=== PATIENT | female | born 1955 | race Caucasian/White ===

== ENCOUNTER 2022-08-15 08:05 | Inpatient (IN) ==
--- NOTE | 2022-07-24 11:54 | PAT Medication Instructions ---
Medication Instructions Date of Service July 24, 2022 Home Medications Medication Instructions Recorded Ciprofloxacin/Hydrocortisone 3 drp otic (ear) BID 5 days ##0 12/17/14 (Cipro Hc 0.2-1 %) Hydrocodon/Acetaminophen 10MG/300MG (VICODIN HP (10MG/300MG)) 1 tab PO Q6H PRN Ciprofloxacin/Hydrocortisone (Cipro Hc 0.2-1 %) 3 drp otic (ear) BID ascorbic acid (vitamin C) 1,000 mg tablet,extended release (Vitamin C ER) 1,000 mg PO QPM atenolol 25 mg tablet 12.5 mg PO UD PRN baclofen 10 mg tablet 10 mg PO BID PRN bumetanide 1 mg tablet 1 mg PO QPM calcium carbonate 600 mg-vitamin D3 10 mcg (400 unit) tablet (Calcium 600 + D(3)) 1 tab PO QPM multivitamin 1 tab PO QPM potassium chloride 10 mEq tablet,extended release(part/cryst) (Klor-Con M) 20 meq PO QPM zinc 50 mg tablet 50 mg PO QPM Continue as directed atenolol 25 mg tablet 12.5 mg PO UD PRN(if needed) DO NOT take the morning of surgery baclofen 10 mg tablet 10 mg PO BID PRN Take morning of surgery With a small sip of water, OTHERWISE NOTHING TO EAT OR DRINK AFTER MIDNIGHT: Hydrocodon/Acetaminophen 10MG/300MG (VICODIN HP (10MG/300MG)) 1 tab PO Q6H PRN (if needed) Ciprofloxacin/Hydrocortisone (Cipro Hc 0.2-1 %) 3 drp otic (ear) BID Take evening before surgery Hydrocodon/Acetaminophen 10MG/300MG (VICODIN HP (10MG/300MG)) 1 tab PO Q6H PRN (if needed) Ciprofloxacin/Hydrocortisone (Cipro Hc 0.2-1 %) 3 drp otic (ear) BID ascorbic acid (vitamin C) 1,000 mg tablet,extended release (Vitamin C ER) 1,000 mg PO QPM baclofen 10 mg tablet 10 mg PO BID PRN(if needed) bumetanide 1 mg tablet 1 mg PO QPM calcium carbonate 600 mg-vitamin D3 10 mcg (400 unit) tablet (Calcium 600 + D(3)) 1 tab PO QPM multivitamin 1 tab PO QPM potassium chloride 10 mEq tablet,extended release(part/cryst) (Klor-Con M) 20 meq PO QPM zinc 50 mg tablet 50 mg PO QPM Other Notes If you have any questions please call us at [phone] or [phone] or [phone] or [phone]
--- NOTE | 2022-07-29 14:16 | Anesthesiology Consultation ---
Date of Service July 29, 2022 Assessment & Plan (1) Encounter for pre-operative examination: - Hx difficult intubation: Per patient, she states she was remotely told there was difficultly "placing tube" many years ago (pt unsure of further details regarding when/where) but told no issue with subsequent surgeries when the anesthesiologist knew this history. Per available records, Ethmoidectomy, septoplasty, tongue somnoplasty- done 09/22/2003 at [facility] [place] with LMA (No noted difficulty per available operative report). - EP office visit (06/25/22): "Given that she has an upcoming knee replacement surgery planned, she was asked to see us for pre-op risk mitigation. Fortunately, she has no evidence of heart failure, ischemia, or sustained arrhythmia, and therefore no cardiac evaluation is indicated.. history of atrial fibrillation s/p PVI in the past. She has done very well since the procedure, and therefore does not require antiarrhythmics. She likely does not need bumex.. We would recommend weaning it to every other day for now and it can conceivably be stopped in the future.. It is noted that she ought to be on an anticoagulant given that she is now over 65, however this need not be started until after recovering from her surgery." - PCP office visit (07/10/22): Chronic issues reviewed/stable. - COVID screening: Per assessment on 07/29: No known COVID-19 positive contacts or current COVID-19 related symptoms. Travel screen negative. At surgeon discretion if preop Covid testing being done. - Outpatient joint assessment: Pt currently scheduled for inpatient pathway. If surgeon requests review for outpatient joint pathway, patient is not recommended candidate for outpatient joint program from anesthesia standpoint. Chart Review Chart Review: Acceptable Risk for Surgery and Patient seen in Pre Admission Testing Teaching & Discussion Pre-Anesthesia Teaching/Discussion Notes: Instructed NPO after midnight before surgery,except medications with 15 cc of water. Medication instructions provided according to the PAT guidelines. History Surgery Operation Date: 08/15/22 14:35 Proposed Procedures p Right Total Knee Arthroplasty - Clifton Puente MD Height/Weight Height: 5 ft 6.5 in Weight: 108.7 kg Allergies Allergy/AdvReac Type Severity Reaction Status Date / Time lisinopril Allergy Mild Throat Verified 07/29/22 14:12 tightness Iodinated Contrast Media Allergy Unknown Rash Verified 07/29/22 14:12 Beta-Blockers AdvReac Intermediate Increase Verified 07/29/22 14:12 (Beta-Adrenergic Bloc of symptoms/conditions citalopram AdvReac Mild Rash Verified 07/29/22 14:12 digoxin AdvReac Unknown "Did not Verified 07/29/22 14:12 work" Medications Home Medications Medication Instructions Recorded Confirmed Last Taken Hydrocodon/Acetaminophen 1 tab PO Q6H PRN Pain ##0 11/23/14 07/24/22 Unknown 10MG/300MG (VICODIN HP (10MG/300MG)) Ciprofloxacin/Hydrocortisone 3 drp otic (ear) BID 5 days ##0 12/17/14 07/24/22 Unknown (Cipro Hc 0.2-1 %) ascorbic acid (vitamin C) 1,000 mg 1,000 mg PO QPM 07/24/22 07/24/22 Unknown tablet,extended release (Vitamin C ER) atenolol 25 mg tablet 12.5 mg PO UD PRN Other 07/24/22 07/24/22 Unknown baclofen 10 mg tablet 10 mg PO BID PRN Muscle Spasm 07/24/22 07/24/22 Unknown bumetanide 1 mg tablet 1 mg PO QPM 07/24/22 07/24/22 Unknown calcium carbonate 600 mg-vitamin 1 tab PO QPM 07/24/22 07/24/22 Unknown D3 10 mcg (400 unit) tablet (Calcium 600 + D(3)) multivitamin 1 tab PO QPM 07/24/22 07/24/22 Unknown potassium chloride 10 mEq 20 meq PO QPM 07/24/22 07/24/22 Unknown tablet,extended release(part/cryst) (Klor-Con M) zinc 50 mg tablet 50 mg PO QPM 07/24/22 07/24/22 Unknown Past Medical History Medical History Atrial fibrillation [place] [facility] [place] Cancer Lymphoma (2016) s/p treatment in [place], PCP monitors Depression History of COVID-19 Dx 09/2021, symptoms resolved except residual taste/smell impairment Hyperlipidemia Hypertension Obesity Osteoarthritis Septic arthritis of knee, bilateral Sleep apnea BIPAP (compliant) Exercise / Class Metabolic Activity III < 4 Walking/Shop/Light housework Past Family History Family History Other No known health problems Past Surgical History Surgical History History of cardioversion ~2014 History of section History of colon resection 2016 FOR BLEEDING TUMOR History of colonoscopy History of ear surgery LEFT X 2-RIGHT X 1-MASTOIDECTOMY/TYMPANOPLASTY History of esophagogastroduodenoscopy (EGD) History of sinus surgery History of thyroidectomy History of tonsillectomy and adenoidectomy Past Anesthesia History Difficult Airway and No Family Hx of Anesthesia Complications Per patient, she states she was remotely told there was difficultly "placing tube" many years ago (pt unsure of further details regarding when/where) but told no issue with subsequent surgeries when the anesthesiologist knew this history. Per available records, Ethmoidectomy, septoplasty, tongue somnoplasty- done 09/22/2003 at [facility] [place] with LMA (No noted difficulty per available operative report). History of PONV No Hx of PONV and Hx of Motion Sickness Social History Smoking Status: Never smoker Do You Dip or Chew Tobacco: No Hx Alcohol Use: Yes alcohol intake frequency: holidays/special occasions only Hx Substance Use: No Review of Systems Patient denies chest pain, shortness of breath, fever, chills, cough, wheezing, palpitations. Physical Exam Vital Signs VITALS BP 120/72 P 77 TEMP 98.6 SP02 96%Ra RESP 16 PHYSICAL Full cervical extension range of motion. Full TMJ range of motion. TMD 2 finger breaths (small chin) Mallampati Score 3 Dentition: intact Lungs: clear throughout to auscultation Cardiac: regular rate and rhythm, no murmurs noted Spine: normal Carotid arteries: negative bruit Extremities: no edema Lab Results Anesthesia Preop Results Results Anesthesia Widget: WBC 5.40 K/ul (4.8-10.8) 07/29/22 Hgb 14.6 g/dl (12.0-16.0) 07/29/22 Hct 42.4 % (34.1-44.9) 07/29/22 Plt 253 K/uL (130-400) 07/29/22 PT 11.0 Seconds (9.0-12.0) 07/29/22 PTT 27.2 Seconds (21.0-31.0) 07/29/22 INR 1.0 (0.9-1.1) 07/29/22 Blood Type O Positive 07/29/22 Antibody Screen NEGATIVE 07/29/22 Testing Laboratory Results 07/10/22 HGBA1C 5.3% SODIUM 142 POTASSIUM 4.1 CHLORIDE 101 CO2 29 BUN 17 CREATININE 0.7 GLUCOSE 85 Electrocardiogram Date: 06/25/22 Findings: + NSR @ (75) Chest X-Ray Date: 07/29/22 FINDINGS: Cardiac silhouette is enlarged. Atherosclerosis of the aorta. No pneumothorax, pleural effusion, airspace consolidation or overt pulmonary edema. Bones of the chest appear grossly intact. Degenerative changes of the shoulders and spine. IMPRESSION: Cardiomegaly without acute process. Echocardiogram Date: 12/14/15 EF 60%. Mild cLVH. Grade I DD. Moderate LVD. Dilated RV. Moderate LAD. AV sclerosis. Mild AI. Borderline pulmonary HTN (PASP 33mhg). COVID-19 Risk Screen Screening Information COVID-19 Screen Date: 07/29/22 Exposure 21 Days Family/Household +COVID Last 21 Days: No Exposure 10 Days Any COVID Exposure Last 10 Days: No Symptoms Last 10 Days Experienced COVID Sx Last 10 Days: No + COVID 0-90 Days COVID + in Last 0-90 Days: No
[~2022-08-15 08:05] MED LIST: ACETAMINOPHEN 500 MG TAB PO SCH; BUPIVACAINE 0.5 % 5 MG/1 ML PF 10ML VIAL ONE; BUPIVACAINE LIPOSOME/PF 266 MG, BUPIVACAINE/EPINEPHRINE 50 ML, SODIUM CHLORIDE 0.9% 30 ... INFIL SCH; CeleBREX 200 MG CAP PO SCH; FAMOTIDINE 20 MG TAB PO SCH; LR 500ML BOLUS, THEN 15ML/HR IV SCH; LR 60ML/HR IV SCH; METOCLOPRAMIDE HCL 10 MG TABLET PO SCH; ROPIVACAINE 0.5% 5 MG/ML 30 ML VIAL ONE; Scopolamine 1 MG TDSY TD SCH; TRANEXAMIC ACID 1,000 MG **IV Intra-op IV SCH; ceFAZolin 2000MG 2,000 MG/15 ML SYR IV SCH
--- NOTE | 2022-08-15 08:54 | History & Physical Bridge Note ---
Date of Service August 15, 2022 History & Physical Bridge Note I have examined the patient, reviewed the History & Physical and in the interval since the performance of the History & Physical I have noted the following changes of clinical significance: no changes noted
[2022-08-15] MEDS ORDERED: ONDANSETRON INJ 2 MG/ML 2 ML VIAL ONE (09:38)
[2022-08-15] MEDS ORDERED: PROPOFOL IV EMULSION 10 MG/ML 20 ML VIAL IV ONE ×3 (09:38→12:02)
[2022-08-15] MEDS ORDERED: DEXAMETHASONE SOD INJ 4 MG/ML VIAL ONE ×2 (09:38→09:46)
[2022-08-15] MEDS ORDERED: fentaNYL citrate 100 MCG/2 ML VIAL ONE (09:39)
[2022-08-15] MEDS ORDERED: MIDAZOLAM HCL 1 MG/ML 2ML VIAL ONE ×2 (09:39→10:42)
[2022-08-15] MEDS ORDERED: fentaNYL citrate 100 MCG/2 ML VIAL IV PRN (09:43)
[2022-08-15] MEDS ORDERED: ePHEDrine sulfate 50 MG/ML AMP IV PRN (09:43)
[2022-08-15] MEDS ORDERED: ATROPINE SULFATE 0.1 MG/ML 10ML SYR IV PRN (09:43)
[2022-08-15] MEDS ORDERED: HYDROmorphone INJ 2 MG/ML SYR/VIAL IV PRN (09:43)
[2022-08-15] MEDS ORDERED: SODIUM CHLORIDE 0.9% PF 50 ML VIAL ONE (10:50)
[2022-08-15] MEDS ORDERED: BUPIVACAINE/EPINEPHRINE 0.25% 1:200,000 30 ML VIAL ONE (10:50)
[2022-08-15] MEDS ORDERED: BUPIVACAINE LIPOSOME 1.3% 266 MG/20 ML VIAL ONE (10:51)
--- NOTE | 2022-08-15 12:58 | Operative Report ---
PG Post Operative Report Pre & Post Diagnosis Operation Date: 08/15/22 10:40 Pre-Op Diagnosis: Right Knee Degenerative Joint Disease Post-Op Diagnosis: Right Knee Degenerative Joint Disease I identified the patient and participated in the time-out.: Yes Procedure Operation Date: 08/15/22 10:40 Actual Procedures p Right Total Knee Arthroplasty(Right) - Clifton Puente MD Surgeon Clifton Puente MD Consumer [employer]er Aneesh Yang PA-C Estimated Blood Loss 50 Findings Consistent with Post-Op Diagnosis Operative findings revealed extensive grade 4 jrge-lz-ndgm disease in all 3 compartments with significant erosions of the cartilage and osteophytes in all 3 compartments. Large soft tissue envelope. Osteophytes throughout. Diffuse osteopenia. Specimens Right knee sent for pathology. Drains None Anesthesia Type Spinal MAC Complications none Disposition Accompanied Patient To Recovery: No Indications Patient is 66-year-old female is had a long history of bilateral knee pain discomfort right side greater than left patient been to extensive conservative treatment the past which would become less successful. She is markedly debilitated by her disease. She is actually scheduled for knee replacement surgery several times elsewhere but got canceled. That she moved to this area and elected proceed with total knee arthroplasty. Description of Procedure Operative implants consist of: 1. Biomet Vanguard size 67.5 right posterior stabilized femoral component. 2. Biomet size 67 tibial tray. 3. 10 mm posterior stabilized polyethylene insert. 4. 28 x 8 all Paller patella. The patient was taken the operating, identified, placed on the operating table supine position protectors were properly padded. IV antibiotics tried by anesthesia team. A spinal anesthetic and abductor canal block had provided in the holding area. Prakash catheter was placed in sterile fashion. Right Tetrick was then placed in the right lower extremities and prepped and draped in usual sterile fashion. The right leg was elevated exsanguinated with use of an Esmarch and the tourniquet was set at 300 mmHg. An anterior approach of the right knee was then performed through a longitudinal incision centered over the patella. Sharp dissection was carried through subcutaneous tissue down the extensor mechanism. A medial parapatellar arthrotomy incision was made. Some subperiosteal dissection was carried out medially. The fat pad was resected from Neath patella tendon. Lateral patellofemoral ligament was released. Patella subluxated laterally knee was flexed. The osteophytes taken off distal femur. The ACL and PCL were then released from distal femur the tibia subluxated anteriorly. The external tibial alignment jig was then placed in the interface the tibia and adjusted 14 mm medially. Proximal tibial cut was made removed by millimeter bone from most deficient aspect medial tibial plateau. Some osteophytes taken off medially medially and posterior medially. Tibia sized to a size 67. Attention drawn the femur. The distal femur during the sharp drill. Intramedullary canal was suction. A right 5 degree valgus cutting guide was placed. Distal femoral cutting block was pinned in place. Distal femoral cut was made to take an additional 3 mm bone off distal femur. The femur was then sized to a size 67.5. The AP cutting block was pinned parallel to the epicondylar axis which was 4 degrees of external rotation. Anterior cut, anterior chamfer, posterior cut, posterior chamfer cuts were made. The box cutting guide was placed in the just slight lateral box cut was made. The knee was flexed. The remnants of the medial and lateral menisci were excised. The osteophytes were taken off the posterior aspect of femur. Trial femoral component was placed. Tibial tray was pinned in maximum external rotation and the drill and stem punch were used to create the defect in the proximal tibia for the tibial tray. Knee was then trialed and 10 mm insert fit most appropriately. Attention drawn the patella. The patella was cleaned of all soft tissues. Patella thickness measured 20 mm in thickness was cut down to 13. Was sized to a size 28 patella. The lug holes were drilled for the 28 patella. The lateral osteophytes removed. Patella button was placed. Knee was taken through range of motion patella tracked nicely with no thumbs test. Attention drawn to place the permanent components. All trial components were removed. A bone plug was placed into the distal femur limit blood loss. Double batch Palacos G cement was mixed. Biomet Vanguard size 67.5 right posterior stabilized femoral component, a size 67 tibial tray, 10 mm posterior stabilized polyethylene insert, 28 x 8 all Paller patella then cemented in place. Knee was brought out into full extension until cement hardened. Final cement check was then performed. The pericapsular tissues were injected with total 100 cc of combination of 20 cc of Exparel, 30 cc normal saline, 50 cc of quarter percent Marcaine with epinephrine. Patient did receive 1 g tranexamic acid. The tourniquet was let down for final turn time of 64 minutes. Hemostasis assured use electrocautery. The extensor mechanism closed with combination 1 PDS suture #1 Vicryl suture in a [id number] fashion. Extensor mechanism checked found to be intact and subcutaneous tissues then closed with 2 Dexon suture in a buried erupted fashion skin was closed skin dominique. Leg was then cleaned and dried a sterile dressing was Xeroform, 4 x 4' s, sterile cast padding, Ernie bandage were applied. Patient then transferred to the recovery room in stable condition. Patient tolerated procedure well and there were no complications. Aneesh Yang, my physician fleet administrative assistant, was present for the entire procedure. His assistance was essential and required for appropriate patient positioning, prepping and draping, surgical exposure, performing the technical details of the operation, placement the implants, closure of the wound, and placement of the sterile bandage. I attest to the content of the Intraoperative Record and any orders documented therein. Any exceptions are noted below.
--- NOTE | 2022-08-15 13:36 | XRay Report ---
XR knee RT 1 or 2V routine HISTORY: 66 years-old Female Surgical Post Op right knee total joint arthroplasty COMPARISON: Knee radiographs 07/18/2022 TECHNIQUE: 2 views of the right knee FINDINGS: Total joint arthroplasty with patellar resurfacing. Anterior midline skin dominique are noted along wit h expected postoperative soft tissue swelling with deep tissue air. No acute fracture, dislocation or unexpected opaque foreign body. Cortical thickening of the proximal fibula redemonstrated. IMPRESSION: Total joint arthroplasty with expected postoperative changes. ACT 112: Negative or not required by law. The above report was generated using voice recognition software. It may contain grammatical, syntax o r spelling errors. Electronically signed by: Yao Garcia M.D. 08/15/2022 1:35 PM
--- NOTE | 2022-08-15 14:25 | Anesthesiology Progress Note ---
Date of Service August 15, 2022 Anesthesia Post Procedure Vital Signs Vital Signs: Temp Pulse Pulse Pulse Resp BP BP 08/18/22 13:09 36.7 C 62 87 69 16 118/73 150/82 H 08/18/22 07:50 36.7 C 87 16 150/82 H 08/17/22 20:57 37.2 C 84 16 136/86 08/17/22 14:42 36.5 C 72 18 118/73 Pulse Ox O2 Del Method 08/18/22 13:09 92 08/18/22 07:50 92 Room Air 08/17/22 20:57 92 Room Air 08/17/22 14:42 92 Room Air Transfer of Care Handoff Completed per policy Notes Mental Status: alert / awake / arousable and participated in evaluation Nausea / Vomiting: adequately controlled Pain: adequately controlled Airway Patency, RR, SpO2: stable & adequate BP & HR: stable & adequate Hydration State: stable & adequate Neuraxial Anesthesia: was administered and sensory block is resolving Anesthetic Complications: no major complications apparent and Pt Satisfied with anesthetic care
[2022-08-15] MEDS ORDERED: MAGNESIUM HYDROXIDE SUSP 30 ML UDC PO PRN (15:14)
[2022-08-15] MEDS ORDERED: bisacodyL 10 MG SUPP PR PRN (15:14)
[2022-08-15] MEDS ORDERED: BACLOFEN 10 MG TAB PO PRN (15:14)
[2022-08-15] MEDS ORDERED: ALUMINUM/MAGNESIUM SUSP 30 ML UDC PO PRN (15:14)
[2022-08-15] MEDS ORDERED: ATENOLOL 25 MG TABLET PO PRN (15:14)
[2022-08-15] MEDS ORDERED: HYDROmorphone INJ 1 MG/ML SYRINGE IV PRN (15:14)
[2022-08-15] MEDS ORDERED: NALOXONE HCL 0.4 MG/1 ML VIAL/CARP IV PRN (15:14)
[2022-08-15] MEDS ORDERED: ONDANSETRON INJ 2 MG/ML 2 ML VIAL IV PRN (15:14)
[2022-08-15] MEDS ORDERED: METOCLOPRAMIDE HCL INJ 5 MG/ML 2 ML VIAL IV PRN (15:14)
[2022-08-15] MEDS: Scopolamine CHECK PATCH PLACEMENT SCH (16:05)
[2022-08-15] MEDS: SODIUM CHLORIDE 0.9% 1000ML 1,000 ML IV SCH (16:05)
[2022-08-15] MEDS: ACETAMINOPHEN 500 MG TAB PO SCH (16:53)
[2022-08-15] MEDS: KETOROLAC TROMETHAMINE 15 MG/ML VIAL IV SCH (16:54)
[2022-08-15] MEDS ORDERED: ASCORBIC ACID 500 MG TAB PO SCH (17:00)
[2022-08-15] MEDS: ceFAZolin 2000MG 2,000 MG/15 ML SYR IV SCH (18:14)
[2022-08-15] MEDS: oxyCODONE HCL IR 5 MG TAB (IMMEDIATE RELEASE) PO PRN (18:21)
[2022-08-15] MEDS ORDERED: TRANEXAMIC ACID / 0.7% NACL 1,000 MG/100 ML BAG IV SCH (19:00)
[2022-08-15] MEDS: ASPIRIN 81 MG ECTAB PO SCH (20:05)
[2022-08-15] MEDS: TAPENTADOL HCL ER 50 MG TABCR PO SCH (20:05)
[2022-08-15] MEDS: CALCIUM 600MG + VIT D 400 IU TAB PO SCH (20:06)
[2022-08-15] MEDS: BUMETANIDE 1 MG TAB PO SCH (20:06)
[2022-08-15] MEDS: POTASSIUM CHLORIDE CRTAB 20 MEQ TABCR PO SCH (20:06)
[2022-08-15] MEDS: ZINC SULFATE 220 MG CAPSULE PO SCH (20:07)
[2022-08-15] MEDS: DOCUSATE SODIUM/SENNA 50/8.6MG TAB PO SCH (20:07)
[2022-08-15] MEDS: ASCORBIC ACID 500 MG TAB PO SCH (20:07)
[2022-08-15] MEDS: DOCUSATE SODIUM 100 MG CAP PO SCH (20:07)
[2022-08-15] MEDS: SENNA 8.6 MG TAB PO SCH (20:08)
[2022-08-15] MEDS ORDERED: NON-FORMULARY MEDICATION (Multivitamin Tablet) PO SCH (21:00)
[2022-08-16] MEDS: KETOROLAC TROMETHAMINE 15 MG/ML VIAL IV SCH ×4 (00:09→16:40)
[2022-08-16] MEDS: oxyCODONE HCL IR 5 MG TAB (IMMEDIATE RELEASE) PO PRN ×3 (00:09→19:48)
[2022-08-16] MEDS: ACETAMINOPHEN 500 MG TAB PO SCH ×3 (00:10→16:40)
[2022-08-16] MEDS: Scopolamine CHECK PATCH PLACEMENT SCH ×3 (00:10→16:40)
[2022-08-16] MEDS: ceFAZolin 2000MG 2,000 MG/15 ML SYR IV SCH (04:38)
[2022-08-16] MEDS: SODIUM CHLORIDE 0.9% 1000ML 1,000 ML IV SCH (06:18)
[2022-08-16 07:07] LABS: Hematocrit (blood only) 35.6 % (34.1-44.9); Hemoglobin 12.2 g/dl (12.0-16.0); Mean Corpuscular Hgb Conc 34.3 g/dL (32.0-36.0); Mean Corpuscular Volume 90.4 fL (80.0-100.0); Mean Platelet Volume 9.5 fL (9.4-12.3); Platelet Count 201 K/uL (130-400); RDW Coefficient of Variation 13.3 % (11.5-14.5); Red Blood Count 3.94 M/uL (3.93-5.22); White Blood Count 8.82 K/ul (4.8-10.8)
[2022-08-16 07:46] LABS: BUN Creatinine Ratio 21.6 (10-20); Calcium 8.9 mg/dl (8.5-10.1); Creatinine Clr Calc Pharmacy 92.6 ml/min; Est GFR (African American) 97.2 ml/min; Est GFR (Non-African American) 83.8 ml/min; Potassium 3.7 mmol/L (3.5-5.1)
[2022-08-16] MEDS ORDERED: dexAMETHasone 10 MG in SYRINGE 0 ML IV SCH (08:00)
[2022-08-16] MEDS: DOCUSATE SODIUM 100 MG CAP PO SCH ×2 (08:04→19:49)
[2022-08-16] MEDS: DOCUSATE SODIUM/SENNA 50/8.6MG TAB PO SCH ×2 (08:04→19:50)
[2022-08-16] MEDS: ASPIRIN 81 MG ECTAB PO SCH ×2 (08:04→19:49)
[2022-08-16] MEDS: MULTIVITAMIN TAB PO SCH (08:05)
[2022-08-16] MEDS: TAPENTADOL HCL ER 50 MG TABCR PO SCH ×2 (08:08→19:52)
--- NOTE | 2022-08-16 10:29 | Progress Notes ---
DATE OF SERVICE: 08/16/2022 SUBJECTIVE: A 66-year-old female, postoperative day 1 from a right knee replacement. She is doing p retty good this morning. Had a rough night last night as well as pain, but doing better this morning . No chest pain or shortness of breath. Not feeling dizzy or lightheaded. OBJECTIVE: VITAL SIGNS: Temperature 36.6. Vital signs stable. GENERAL: Shows a pleasant middle-aged female, sitting up in bed, looks reasonably comfortable this m orning. LUNGS: Clear to auscultation. HEART: Regular rate and rhythm. ABDOMEN: Soft, nontender, nondistended. EXTREMITIES: Grossly neurovascularly intact except as follows. Examination of the right leg reveals the dressing to be clean, dry, and intact. Leg is well aligned. She can dorsiflex and plantarflex her foot appropriately. She is neurologically intact. LABORATORY DATA: Hemoglobin 12.2. Hematocrit 35.6. Electrolytes are stable. ASSESSMENT: A 66-year-old female, postoperative day 1 from right knee replacement, doing reasonably well. Pretty rough night, but doing better this morning. She is neurologically intact. PLAN: 1. DVT prophylaxis including thigh-high TEDs, SCDs, and aspirin twice a day. 2. PT, OT, weightbear as tolerated. Right total knee protocol. 3. Pain control, doing okay with current pain regimen. 4. Disposition: She is hoping to be discharged to home with some home health. We will see how ther meera goes today. She does live by with one of her offsprings, but not sure how much help she has with that. She will likely need minimum home health. Job ID: [id number]
[2022-08-16] MEDS: ZINC SULFATE 220 MG CAPSULE PO SCH (19:48)
[2022-08-16] MEDS: CALCIUM 600MG + VIT D 400 IU TAB PO SCH (19:48)
[2022-08-16] MEDS: BUMETANIDE 1 MG TAB PO SCH (19:49)
[2022-08-16] MEDS: POTASSIUM CHLORIDE CRTAB 20 MEQ TABCR PO SCH (19:50)
[2022-08-16] MEDS: SENNA 8.6 MG TAB PO SCH (19:51)
[2022-08-16] MEDS: ASCORBIC ACID 500 MG TAB PO SCH (19:57)
[2022-08-17] MEDS: KETOROLAC TROMETHAMINE 15 MG/ML VIAL IV SCH ×4 (02:43→11:02)
[2022-08-17] MEDS: ACETAMINOPHEN 500 MG TAB PO SCH ×3 (02:43→16:34)
[2022-08-17] MEDS: Scopolamine CHECK PATCH PLACEMENT SCH ×3 (02:44→16:35)
[2022-08-17] MEDS: oxyCODONE HCL IR 5 MG TAB (IMMEDIATE RELEASE) PO PRN ×3 (04:36→19:58)
[2022-08-17] MEDS: DOCUSATE SODIUM/SENNA 50/8.6MG TAB PO SCH ×2 (08:21→19:59)
[2022-08-17] MEDS: ASPIRIN 81 MG ECTAB PO SCH ×2 (08:21→20:00)
[2022-08-17] MEDS: TAPENTADOL HCL ER 50 MG TABCR PO SCH ×2 (08:21→19:58)
[2022-08-17] MEDS: DOCUSATE SODIUM 100 MG CAP PO SCH ×2 (08:21→19:58)
[2022-08-17] MEDS: MULTIVITAMIN TAB PO SCH (08:21)
--- NOTE | 2022-08-17 09:10 | Progress Notes ---
SUBJECTIVE: A 66-year-old female, postop day 2 from a right knee replacement. Having a bit more joseluis n this morning. No chest pain or shortness of breath, just knee pain. OBJECTIVE: VITAL SIGNS: Temperature is 36.7. Vital signs are stable. GENERAL: Shows a pleasant middle-aged female. She is sitting up in bed and does not look uncomforta ble. LUNGS: Clear to auscultation. HEART: Regular rate and rhythm. ABDOMEN: Soft, nontender, nondistended. EXTREMITIES: Grossly neurovascularly intact except as follows: Examination of the right leg reveals the leg to be well aligned. Dressing is clean, dry and intact. There is no drainage. Calf is soft and supple. She is neurologically intact. ASSESSMENT: A 66-year-old female, postop day 2 from right knee replacement, doing okay. Having a bi t more pain this morning. Nothing out of the ordinary. PLAN: 1. DVT prophylaxis includes thigh-high TEDs, SCDs, and aspirin twice a day. 2. PT, OT, weightbear as tolerated. Right total knee protocol. 3. Pain control, doing okay with current pain regimen. We will see how she does through therapy hunter schreiber. 4. Disposition: She is planning to be discharged to home with some home health. We will see how bladimir guido goes today. She may need a rehab stay if she is struggling with therapy. We will see how that goes today. Job ID: [id number]
[2022-08-17] MEDS: POTASSIUM CHLORIDE CRTAB 20 MEQ TABCR PO SCH (19:58)
[2022-08-17] MEDS: BUMETANIDE 1 MG TAB PO SCH (19:59)
[2022-08-17] MEDS: ASCORBIC ACID 500 MG TAB PO SCH (19:59)
[2022-08-17] MEDS: ZINC SULFATE 220 MG CAPSULE PO SCH (19:59)
[2022-08-17] MEDS: CALCIUM 600MG + VIT D 400 IU TAB PO SCH (20:00)
[2022-08-17] MEDS: SENNA 8.6 MG TAB PO SCH (20:00)
[2022-08-18] MEDS: ACETAMINOPHEN 500 MG TAB PO SCH ×3 (02:22→15:58)
[2022-08-18] MEDS: Scopolamine CHECK PATCH PLACEMENT SCH (02:22)
[2022-08-18] MEDS: oxyCODONE HCL IR 5 MG TAB (IMMEDIATE RELEASE) PO PRN ×3 (02:44→15:58)
[2022-08-18] MEDS: TAPENTADOL HCL ER 50 MG TABCR PO SCH (08:11)
[2022-08-18] MEDS: DOCUSATE SODIUM/SENNA 50/8.6MG TAB PO SCH (08:11)
[2022-08-18] MEDS: ASPIRIN 81 MG ECTAB PO SCH (08:11)
[2022-08-18] MEDS: DOCUSATE SODIUM 100 MG CAP PO SCH (08:11)
[2022-08-18] MEDS: MULTIVITAMIN TAB PO SCH (08:11)
--- NOTE | 2022-08-18 13:32 | Progress Notes ---
DATE OF SERVICE: 08/18/2022 SUBJECTIVE: A 66-year-old female, postoperative day #3 from a right knee replacement. She has been struggling to therapy. Still having quite a bit of knee pain. No chest pain, no shortness of breath . She is refusing to go to rehab or a [facility] facility. She says she has got lots of help a t home. OBJECTIVE: VITAL SIGNS: Temperature is 36.7. Vital signs are stable. GENERAL: Shows a pleasant middle-aged female. I did see her walking in the hallways and she is walk ing using a walker quite hesitantly but doing reasonably well. EXTREMITIES: Examination of the right leg reveals the dressing to be clean, dry and intact. Leg is well aligned. She can dorsiflex and plantarflex her foot appropriately. She is neurologically intac t. LABORATORY DATA: None. ASSESSMENT: A 66-year-old female, postoperative day #3 from right knee replacement, doing okay. Hav ing a moderate amount of pain, which is not unusual. She has been a little slow with rehab. She is refusing to go to rehab or [facility] facility, wants to go home. PLAN: 1. DVT prophylaxis includes thigh-high TEDs, SCDs, and aspirin twice a day. 2. PT, OT, weightbear as tolerated. Right total knee protocol. 3. Pain control, doing okay with current pain regimen. 4. Disposition: Plan to discharge to home. She is refusing rehab. She says she has got lots of he lp at home. We will set her up with some home health. Job ID: [id number]
--- NOTE | 2022-08-20 06:51 | Discharge Summary ---
Date of Service August 20, 2022 Discharge Data Procedures Performed Operation Date: 08/15/22 10:40 Actual Procedures p Right Total Knee Arthroplasty(Right) - Clifton Puente MD Hospital Course (1) Status post total right knee replacement: This is a 66 year old patient admitted on 08/15/22 and underwent total knee arthroplasty. He tolerated the procedure well and there were no complications. Transferred to the PACU post op and later to the orthopedic floor for further care. He was given ancef for antibiotic prophylaxis. He was also given PAMELLA stockings, SCDs, and aspirin for DVT prophylaxis. Hemoglobin, hematocrit, and vital signs were monitored during her hospital stay and remained stable. Did not require any blood transfusions. There were no complications during her hospital stay. By post op day #3 the patient was tolerating a regular diet, pain was reasonably controlled with oral pain medicine, and she was participating in physical therapy. On post op day #3 the patient was discharged home and set up with home health care. She was given printed discharge instructions including prescriptions for extra strength tylenol, aspirin, ketorolac, zofran, senokot, and oxycodone. Continue physical therapy, weight bearing as tolerated. Continue PAMELLA stockings. Follow up approximately 2 weeks post op or sooner if there are problems or concerns. Coding Level of Care Code None Diagnoses Status post total right knee replacement Z96.651
--- NOTE | 2022-08-26 16:58 | Coding Query ---
CODING QUERY To promote full compliance with coding requirements relating to patient care, provider participation is requested in all cases of cafe operator uncertainty. Please assist us with the question(s) below: Coding Question(s): The H&P documents septic arthritis of knee, bilateral and documents advanced bilateral knee DJD right side quite a bit worse than left, and shows Medical History of septic arthritis of knee, bilateral, and the Operative Report documents right knee degenerative joint disease. Your help is needed to clarify the current diagnosis during this admission for accurate coding. Please specify below, to clarify the diagnosis: ( x ) Advanced Bilateral Knee DJD right side quite a bit worse than left ( ) Septic Arthritis of Knee, Bilateral ( ) Right Knee Degenerative Joint Disease ( ) Other: Please Specify Physician's Response(s): Thank you Tamra Henrandez Principal Diagnosis: "that condition established after study, to be chiefly responsible for occasioning the admission of the patient to the hospital for care." Co-Existing Principal Diagnosis: "when two or more diagnoses equally meet the criteria for principal diagnosis as determined by the circumstances of admission, diagnostic work up, and/or therapy provided, and the Alphabetic Index, Tabular List, or another coding guideline does not provide sequencing direction, any one of the diagnoses may be sequenced first." "When the physician has documented what appears to be a current diagnosis in the body of the record, but has not included the diagnosis in the final diagnostic statement, the physician should be asked whether the diagnosis should be added." (Source [facility] 2 QTR90. p3-4) NAVIN
== END 2022-08-18 16:41 | disposition home health service (06) | DRG 470 ==
LOC: ASU 08:05 → 3E 08:05
DX: G47.33 Obstructive sleep apnea (adult) (pediatric); Z79.82 Long term (current) use of aspirin; Z86.79 Personal history of other diseases of the circulatory system; E66.9 Obesity, unspecified; M17.0 Bilateral primary osteoarthritis of knee; Z79.899 Other long term (current) drug therapy; I10 Essential (primary) hypertension; Z98.890 Other specified postprocedural states; Z88.8 Allergy status to other drugs, medicaments and biological substances; Z68.37 Body mass index [BMI] 37.0-37.9, adult; Z91.041 Radiographic dye allergy status; Z86.16 Personal history of COVID-19

== ENCOUNTER 2023-11-12 13:40 | Inpatient (IN) ==
[2023-11-12] MEDS ORDERED: SODIUM CHLORIDE 0.9% 500 ML IV ONE ×2 (14:22→16:13)
[2023-11-12] MEDS ORDERED: ACETAMINOPHEN 1,000 MG/100 ML VIAL IV STA (14:22)
[2023-11-12 14:30] LABS: Basophils # (auto) 0.05 K/uL (0.00-0.20); Basophils % (auto) 0.5 %; Eosinophils # (auto) 0.07 K/uL (0.00-0.50); Eosinophils % (auto) 0.7 %; Hematocrit (blood only) 39.4 % (37.0-47.0); Hemoglobin 13.3 g/dl (12.0-16.0); Immature Granulocytes # (auto) 0.06 K/uL (0.01-0.20); Immature Granulocytes % (auto) 0.6 %; Lymphocytes # (auto) 1.74 K/uL (1.20-3.40); Lymphocytes % (auto) 16.3 %; Mean Corpuscular Hemoglobin 30.1 pg (25.0-34.0); Mean Corpuscular Hgb Conc 33.8 g/dL (32.0-36.0); Mean Corpuscular Volume 89.1 fL (80.0-100.0); Mean Platelet Volume 10.3 fL (9.4-12.4); Monocytes # (auto) 1.31 K/uL (0.11-0.59); Monocytes % (auto) 12.3 %; Neutrophils # (auto) 7.45 K/uL (1.40-6.50); Neutrophils % (auto) 69.6 %; Platelet Count 234 K/uL (130-400); RDW Coefficient of Variation 14.6 % (11.5-14.5); RDW Standard Deviation 47.2 fL (36.4-46.3); Red Blood Count 4.42 M/uL (4.20-5.40); White Blood Count 10.68 K/ul (4.8-10.8)
--- NOTE | 2023-11-12 14:49 | XRay Report ---
XR chest 1V portable HISTORY: Congestion. Shortness of breath. Chest pain, nonspecific COMPARISON: Chest 03/26/2023. FINDINGS: No pneumothorax. No pleural effusions. The cardiac silhouette remains enlarged. There is mi ld central pulmonary vascular congestion without overt edema. This is similar to the prior study. No new focal lung consolidations to suggest a pneumonia. Calcifications again noted within the aortic kn ob. No acute fractures. IMPRESSION: Cardiomegaly and mild central pulmonary vascular congestion without overt edema. ACT 112: Negative or not required by law. Electronically signed by: Ken Alcantara M.D. 11/12/2023 2:47 PM
[2023-11-12 14:50] LABS: Bilirubin,Total 0.8 mg/dl (0.2-1.0); Calcium 9.6 mg/dl (8.6-10.3); Magnesium 1.8 mg/dl (1.7-2.4); Potassium 4.1 mmol/L (3.5-5.1)
[2023-11-12 14:56] LABS: Albumin Globulin Ratio 1.2 (0.9-2); BUN Creatinine Ratio 22.6 (10-20); Creatinine Clr Calc Pharmacy 80.6 ml/min; Est GFR (African American) 82.8 ml/min; Est GFR (Non-African American) 71.4 ml/min; Globulin 3.4 gm/dl (2.5-4.0); Phosphorus 3.1 mg/dl (2.5-4.9); Total Protein 7.4 gm/dl (6.0-8.3)
[2023-11-12 15:01] LABS: Troponin I High Sensitivity 10.6 pg/ml (0-14)
[2023-11-12 15:11] LABS: Thyroid Stimulating Hormone 2.433 uIu/ml (0.300-4.500)
--- NOTE | 2023-11-12 15:13 | Emergency Department Note ---
Impression & Plan Atrial fibrillation with rapid ventricular response, Diarrhea, Sinus congestion, Shortness of breath ED Provider Note NAME: FELIX LAI AGE: 67 SEX: F ARRIVES VIA: Walk-In INFORMANT: Patient ED PROVIDER(S): Ace Coburn MD CHIEF COMPLAINT: Shortness of breath, atrial fibrillation, sinus congestion, referred. PLAN: Disposition: Admit MEDICAL DECISION MAKING: The patient is a pleasant 67-year-old woman with a past medical history of atrial fibrillation on Eliquis, CHF, hypertension, hyperlipidemia, WILL on CPA, chronic mastoiditis who presents to the emergency department via walk-in for evaluation of shortness of breath, fast heart rate in setting of A-fib referred by her cardiology office. Patient the patient reports symptoms began several days ago though did have some more minimal congestion even when she was discharged from [facility] a week ago where she had been admitted for pneumonia and managed for her atrial fibrillation. She denies any chest pain. She denies nausea, vomiting. She reports she has had ongoing loose stool which was present when she was in the hospital at [facility] and to understanding was due to a "gastrointestinal infection". The patient reports she has completed treatment for pneumonia. She reports that she has not had much to eat or drink today and is still having approximately 2 loose stools a day. She reports she is scheduled to have an ablation for atrial fibrillation at [facility] on the of this month. On evaluation the patient is fatigued appearing but no distress, afebrile with heart rate in the 130s to 140s in atrial fibrillation and vital signs otherwise stable. O2 saturation 92% and greater on room air with normal respiratory effort. The patient appears clinically dry with dry mucous membranes and no significant lower extremity edema. Boggy nasal turbinates. TMs with bilateral middle ear effusion without significant injection. There is no mastoid edema, tenderness or discoloration bilaterally. Abdomen is nontender. EKG demonstrates atrial fibrillation with RVR without overt acute ischemia. Chest x-ray with mild venous congestion with no focal consolidation per my preliminary independent interpretation. WBC within normal limits with neutrophil predominance though no left shift. H/H and platelets within normal limits. Chemistry without metabolic acidosis. BUN/creatinine is 22 consistent the patient's clinically dry appearance. Electrolytes and LFTs unremarkable. High-sensitivity troponin within normal limits. Lipase is not elevated. Procalcitonin is undetectable. TSH within normal limits. UA without convincing evidence of infection. Respiratory viral panel/[employer] was negative. Treatment was initiated with gentle hydration with 500 cc normal saline and IV Lopressor with some improvement in patient's heart rate to the 120s. She was subsequently given a second 500 cc normal saline bolus and second 5 mg dose of IV Lopressor with improvement to the 110s. However, given the patient's persistence of her atrial fibrillation with RVR in the setting of suspected viral upper respiratory infection and ongoing diarrhea/GI losses patient was for the hospitalist service for further management. Case was discussed with [facility]ancini [facility], who will evaluate the patient for admission. Further management per admitting team. Triage Nursing notes reviewed and agree them. Prior/external medical records reviewed Vital Signs: reviewed Differential diagnosis: Reactive airway disease, pneumonia, pneumothorax, COPD, CHF, infections, cardiac ischemia, pulmonary embolism, musculoskeletal, gastrointestinal, as well as other pathologies. ER treatment provided: See below. Diagnostics interpreted by me: ECG: Atrial fibrillation with RVR, 146 bpm, no ectopy, no overt ST ovation depression, QTc 402, qrs 88. Cardiac Monitoring: An order for continuous cardiac monitoring was placed and demonstrated Atrial fibrillation with RVR, 146 bpm, no ectopy Laboratory studies: See below Imaging studies: See below Consultation(s): [facility] HPI: The patient is a pleasant 67-year-old woman with a past medical history of atrial fibrillation on Eliquis, CHF, hypertension, hyperlipidemia, WILL on CPA, chronic mastoiditis who presents to the emergency department via walk-in for evaluation of shortness of breath, fast heart rate in setting of A-fib referred by her cardiology office. Patient the patient reports symptoms began several days ago though did have some more minimal congestion even when she was discharged from [facility] a week ago where she had been admitted for pneumonia and managed for her atrial fibrillation. She denies any chest pain. She denies nausea, vomiting. She reports she has had ongoing loose stool which was present when she was in the hospital at [facility] and to understanding was due to a "gastrointestinal infection". The patient reports she has completed treatment for pneumonia. She reports that she has not had much to eat or drink today and is still having approximately 2 loose stools a day. She reports she is scheduled to have an ablation for atrial fibrillation at [facility] on the of this month. ROS: See above HPI for pertinent positives & negatives. A total of 10 systems reviewed and were otherwise negative. VITALS:See Below PHYSICAL EXAMINATION: GENERAL: Awake, alert, fatigued-appearing, in no distress HENT: Normocephalic, atraumatic. Boggy nasal turbinates. TMs with bilateral middle ear effusion without significant injection. There is no mastoid edema, tenderness or discoloration bilaterally. Oropharynx with dry mucous membranes and otherwise unremarkable. EYES: Normal conjunctiva. Sclera non-icteric. NECK: Supple. No nuchal rigidity. FROM. No JVD. RESPIRATORY: Clear to auscultation. CARDIAC: Tachycardic rate, irregular rhythm. Extremities warm and well perfused. Pulses equal. ABDOMEN: Soft, non-distended. No tenderness to palpation. No rebound or guarding. No masses. RECTAL: Deferred. MUSCULOSKELETAL: Chest examination reveals no tenderness. The back is symmetrical on inspection without obvious abnormality. There is no CVA tenderness to palpation. No joint edema. LOWER EXTREMITIES: Calves are equal size bilaterally and non-tender. No edema. No discoloration. NEURO: Normal sensorium. No sensory or motor deficits noted. SKIN: No rash or jaundice noted. ED COURSE: Critical Care: I have personally spent greater than 35 minutes of critical care time in the direct management of this patient. This includes bedside care, interpretation of diagnostic studies, and testing, discussion with consultants, patient, and family members, and other required patient management activities. This 35 minutes is in excess of all separately billable procedures. Ace Coburn MD Past Med/Surg History Medical History Fibromyalgia HFrEF (heart failure with reduced ejection fraction) WILL on CPAP Left knee DJD Obesity Encounter for pre-operative examination History of COVID-19 Dx 09/2021, symptoms resolved except residual taste/smell impairment Hypertension Osteoarthritis Depression Hyperlipidemia Cancer Lymphoma (2016) s/p treatment in [place], PCP monitors Sleep apnea BIPAP (compliant) Atrial fibrillation Follows with [facility]/Dr. [place]ina Septic arthritis of knee, bilateral Surgical History History of tonsillectomy and adenoidectomy History of ear surgery LEFT X 2-RIGHT X 1-MASTOIDECTOMY/TYMPANOPLASTY History of sinus surgery History of section History of thyroidectomy History of esophagogastroduodenoscopy (EGD) History of colon resection 2015 FOR BLEEDING TUMOR History of colonoscopy History of cardioversion ~2014 Family History Other Hypertension Social History Smoking Status: Never smoker Second Hand Exposure: Yes (FATHER SMOKED); Do You Dip or Chew Tobacco: No; Hx Alcohol Use: No Hx Substance Use: No Preferred Language: Monegasque Communication Ability: Effective Principal Clerk Required: No Beliefs That Will Affect Care: None marital status: Single Current Living Situation: Family Current Living Situation Comment: lives in double house with son current occupational status: disabled Other Information That Helps Us Care for You: No Feels Safe at Home: Yes Safety Concerns: Feels Safe At This Time Assistive Devices: Cane Allergies Allergies Allergy/AdvReac Type Severity Reaction Status Date / Time lisinopril Allergy Severe Throat Verified 11/12/23 16:06 tightness Iodinated Contrast Media Allergy Intermediate Rash Verified 11/12/23 16:06 citalopram Allergy Mild Rash Verified 11/12/23 16:06 Beta-Blockers AdvReac Intermediate Increase Verified 11/12/23 16:06 (Beta-Adrenergic Bloc of symptoms/conditions digoxin AdvReac Unknown "Did not Verified 11/12/23 16:06 work" Home Meds Home Medications Medication Instructions Recorded Confirmed ascorbic acid (vitamin C) 1,000 mg 1,000 mg PO QPM 07/24/22 11/12/23 tablet,extended release (Vitamin C ER) atenolol 25 mg tablet 12.5 mg PO DAILY gout 07/24/22 11/12/23 baclofen 10 mg tablet 10 mg PO BID PRN Muscle Spasm 07/24/22 11/12/23 bumetanide 1 mg tablet 1 mg PO QPM 07/24/22 11/12/23 calcium carbonate 600 mg-vitamin 1 tab PO QPM 07/24/22 11/12/23 D3 10 mcg (400 unit) tablet (Calcium 600 + D(3)) multivitamin 1 tab PO QPM 07/24/22 11/12/23 potassium chloride 10 mEq 10 meq PO QPM 07/24/22 11/12/23 tablet,extended release(part/cryst) (Klor-Con M) acetaminophen 500 mg capsule 1,000 mg PO TID PRN Pain 03/26/23 11/12/23 allopurinol 300 mg tablet 300 mg PO DAILY 11/12/23 11/12/23 apixaban 5 mg tablet (Eliquis) 5 mg PO BID 11/12/23 11/12/23 hydrochlorothiazide 12.5 mg capsule 12.5 mg PO DAILY 11/12/23 11/12/23 hydrocodone 7.5 mg-acetaminophen 1 tab PO Q8H PRN Severe Pain 11/12/23 11/12/23 325 mg tablet (Scale Score 7-10) montelukast 10 mg tablet 10 mg PO DAILY 11/12/23 11/12/23 zinc gluconate 50 mg tablet 50 mg PO QPM 11/12/23 11/12/23 Results & Data (ED) Vital Signs Vital Signs - 24 hr 11/12/23 13:52 11/12/23 14:10 11/12/23 14:36 Temperature 36.6 C Temperature Source Temporal Artery Scan Pulse Rate 132 H Pulse Rate [Apical] Pulse Rhythm Regular Pulse Strength Normal Respiratory Rate 18 Respiratory Effort / Characteristics Non-Labored Non-Labored Spontaneous Accessory Muscle Use Respiratory Depth Normal Respiratory Pattern Regular Blood Pressure 124/92 Blood Pressure [Right Arm] Blood Pressure Mean 102 Blood Pressure Mean [Right Arm] Blood Pressure Position [Right Arm] Pulse Oximetry 94 92 Oxygen Delivery Method Room Air Room Air Sepsis Recent Fever Within 48 Hours No Sepsis New/Unexplained Change in Mental Status No Sepsis Action Taken by Nursing No Action Required 11/12/23 15:54 11/12/23 16:05 11/12/23 16:31 Temperature Temperature Source Pulse Rate 156 H 129 H 124 H Pulse Rate [Apical] Pulse Rhythm Pulse Strength Respiratory Rate Respiratory Effort / Characteristics Respiratory Depth Respiratory Pattern Blood Pressure 142/96 H 123/90 Blood Pressure [Right Arm] Blood Pressure Mean Blood Pressure Mean [Right Arm] Blood Pressure Position [Right Arm] Pulse Oximetry Oxygen Delivery Method Sepsis Recent Fever Within 48 Hours Sepsis New/Unexplained Change in Mental Status Sepsis Action Taken by Nursing 11/12/23 16:32 11/12/23 17:08 11/12/23 17:41 Temperature Temperature Source Pulse Rate 123 H 119 H Pulse Rate [Apical] 118 H Pulse Rhythm Pulse Strength Respiratory Rate 18 Respiratory Effort / Characteristics Non-Labored Spontaneous Respiratory Depth Normal Respiratory Pattern Regular Blood Pressure 107/91 Blood Pressure [Right Arm] 123/90 Blood Pressure Mean Blood Pressure Mean [Right Arm] 101 Blood Pressure Position [Right Arm] Sitting Pulse Oximetry 94 Oxygen Delivery Method Room Air Sepsis Recent Fever Within 48 Hours Sepsis New/Unexplained Change in Mental Status Sepsis Action Taken by Nursing Laboratory Data Attestation: I reviewed the patient's lab results. 11/12/23 14:07 11/12/23 14:07 Lab Results 11/12/23 11/12/23 11/12/23 Range/Units 14:05 14:07 14:17 WBC 10.68 (4.8-10.8) K/ul RBC 4.42 (4.20-5.40) M/uL Hgb 13.3 (12.0-16.0) g/dl Hct 39.4 (37.0-47.0) % MCV 89.1 (80.0-100.0) fL MCH 30.1 (25.0-34.0) pg MCHC 33.8 (32.0-36.0) g/dL RDW Std Deviation 47.2 H (36.4-46.3) fL RDW Coeff of Stevan 14.6 H (11.5-14.5) % Plt Count 234 (130-400) K/uL MPV 10.3 (9.4-12.4) fL Immature Gran % (Auto) 0.6 % Neut % (Auto) 69.6 % Lymph % (Auto) 16.3 % [place] % (Auto) 12.3 % Eos % (Auto) 0.7 % Baso % (Auto) 0.5 % Neut # (Auto) 7.45 H (1.40-6.50) K/uL Lymph # (Auto) 1.74 (1.20-3.40) K/uL [place] # (Auto) 1.31 H (0.11-0.59) K/uL Eos # (Auto) 0.07 (0.00-0.50) K/uL Baso # (Auto) 0.05 (0.00-0.20) K/uL Immature Gran # (Auto) 0.06 (0.01-0.20) K/uL Sodium 138 (136-145) mmol/L Potassium 4.1 (3.5-5.1) mmol/L Chloride 102 (98-107) mmol/L Carbon Dioxide 28 (21-32) mmol/L Anion Gap 8 (3-11) BUN 19 (6-23) mg/dl Creatinine 0.84 (0.6-1.2) mg/dl Est Cr Clr Drug Dosing 80.6 ml/min Est GFR ( Amer) 82.8 ml/min Est GFR (Non-Af Amer) 71.4 ml/min BUN/Creatinine Ratio 22.6 H (10-20) Glucose 124 H (70-99(Fasting)) mg/dl Calcium 9.6 (8.6-10.3) mg/dl Phosphorus 3.1 (2.5-4.9) mg/dl Magnesium 1.8 (1.7-2.4) mg/dl Total Bilirubin 0.8 (0.2-1.0) mg/dl AST 31 (13-39) U/L ALT 48 (7-52) U/L Alkaline Phosphatase 130 H (34-104) U/L Troponin I High Sens 10.6 (0-14) pg/ml Total Protein 7.4 (6.0-8.3) gm/dl Albumin 4.0 (3.4-5.0) gm/dl Globulin 3.4 (2.5-4.0) gm/dl Albumin/Globulin Ratio 1.2 (0.9-2) Lipase 39 (11-82) U/L Procalcitonin < 0.05 (0-0.5) ng/ml TSH 2.433 (0.300-4.500) uIu/ml Urine Color Urine Appearance (Clear) Urine pH (4.5-7.5) Ur Specific [place] (1.000-1.030) Urine Protein (Negative) Urine Glucose (UA) (Negative) Urine Ketones (Negative) Urine Blood (Negative) Urine Nitrite (Negative) Urine Bilirubin (Negative) Urine Urobilinogen (Negative) Ur Leukocyte Esterase (Negative) Urine WBC (Auto) (0-5) /hpf Urine RBC (Auto) (0-4) /hpf U Hyaline Cast (Auto) (0-5) /lpf U Epithel Cells (Auto) (0-5) /lpf Urine Bacteria (Auto) (Negative) Adenovirus (PCR) Not Detected (NotDetected) B. pertussis DNA (PCR) Not Detected (NotDetected) B.parapertussis DNA PCR Not Detected (NotDetected) C. pneumoniae DNA (PCR) Not Detected (NotDetected) Coronavirus OC43 (PCR) Not Detected (NotDetected) Coronavirus HKU1 (PCR) Not Detected (NotDetected) Coronavirus 229E (PCR) Not Detected (NotDetected) SARS-CoV-2 (PCR) Not Detected (NotDetected) Coronavirus NL63 (PCR) Not Detected (NotDetected) Human Metapneumovir PCR Not Detected (NotDetected) Influenza Type A (PCR) Not Detected (NotDetected) Influenza Type B (PCR) Not Detected (NotDetected) M. pneumoniae (PCR) Not Detected (NotDetected) Parainfluenza 1 (PCR) Not Detected (NotDetected) Parainfluenza 2 (PCR) Not Detected (NotDetected) Parainfluenza 3 (PCR) Not Detected (NotDetected) Parainfluenza 4 (PCR) Not Detected (NotDetected) RSV (PCR) Not Detected (NotDetected) Entero/Rhino (PCR) Not Detected (NotDetected) 11/12/23 Range/Units 16:35 WBC (4.8-10.8) K/ul RBC (4.20-5.40) M/uL Hgb (12.0-16.0) g/dl Hct (37.0-47.0) % MCV (80.0-100.0) fL MCH (25.0-34.0) pg MCHC (32.0-36.0) g/dL RDW Std Deviation (36.4-46.3) fL RDW Coeff of Stevan (11.5-14.5) % Plt Count (130-400) K/uL MPV (9.4-12.4) fL Immature Gran % (Auto) % Neut % (Auto) % Lymph % (Auto) % [place] % (Auto) % Eos % (Auto) % Baso % (Auto) % Neut # (Auto) (1.40-6.50) K/uL Lymph # (Auto) (1.20-3.40) K/uL [place] # (Auto) (0.11-0.59) K/uL Eos # (Auto) (0.00-0.50) K/uL Baso # (Auto) (0.00-0.20) K/uL Immature Gran # (Auto) (0.01-0.20) K/uL Sodium (136-145) mmol/L Potassium (3.5-5.1) mmol/L Chloride (98-107) mmol/L Carbon Dioxide (21-32) mmol/L Anion Gap (3-11) BUN (6-23) mg/dl Creatinine (0.6-1.2) mg/dl Est Cr Clr Drug Dosing ml/min Est GFR ( Amer) ml/min Est GFR (Non-Af Amer) ml/min BUN/Creatinine Ratio (10-20) Glucose (70-99(Fasting)) mg/dl Calcium (8.6-10.3) mg/dl Phosphorus (2.5-4.9) mg/dl Magnesium (1.7-2.4) mg/dl Total Bilirubin (0.2-1.0) mg/dl AST (13-39) U/L ALT (7-52) U/L Alkaline Phosphatase (34-104) U/L Troponin I High Sens (0-14) pg/ml Total Protein (6.0-8.3) gm/dl Albumin (3.4-5.0) gm/dl Globulin (2.5-4.0) gm/dl Albumin/Globulin Ratio (0.9-2) Lipase (11-82) U/L Procalcitonin (0-0.5) ng/ml TSH (0.300-4.500) uIu/ml Urine Color Dark Yellow Urine Appearance Clear (Clear) Urine pH 5.5 (4.5-7.5) Ur Specific [place] 1.020 (1.000-1.030) Urine Protein 1+ H (Negative) Urine Glucose (UA) Negative (Negative) Urine Ketones Negative (Negative) Urine Blood Negative (Negative) Urine Nitrite Negative (Negative) Urine Bilirubin Negative (Negative) Urine Urobilinogen Negative (Negative) Ur Leukocyte Esterase Negative (Negative) Urine WBC (Auto) 5-10 H (0-5) /hpf Urine RBC (Auto) 0-4 (0-4) /hpf U Hyaline Cast (Auto) 1-5 (0-5) /lpf U Epithel Cells (Auto) >30 H (0-5) /lpf Urine Bacteria (Auto) Negative (Negative) Adenovirus (PCR) (NotDetected) B. pertussis DNA (PCR) (NotDetected) B.parapertussis DNA PCR (NotDetected) C. pneumoniae DNA (PCR) (NotDetected) Coronavirus OC43 (PCR) (NotDetected) Coronavirus HKU1 (PCR) (NotDetected) Coronavirus 229E (PCR) (NotDetected) SARS-CoV-2 (PCR) (NotDetected) Coronavirus NL63 (PCR) (NotDetected) Human Metapneumovir PCR (NotDetected) Influenza Type A (PCR) (NotDetected) Influenza Type B (PCR) (NotDetected) M. pneumoniae (PCR) (NotDetected) Parainfluenza 1 (PCR) (NotDetected) Parainfluenza 2 (PCR) (NotDetected) Parainfluenza 3 (PCR) (NotDetected) Parainfluenza 4 (PCR) (NotDetected) RSV (PCR) (NotDetected) Entero/Rhino (PCR) (NotDetected) Administered Medications Apixaban (Apixaban 5 Mg Tablet) 5 mg PO BID [facility] Stop: 12/12/23 20:59 Last Admin: 11/12/23 20:22 Dose: 5 mg Documented By: IOANA Ascorbic Acid (Ascorbic Acid 500 Mg Tab) 1,000 mg PO QPM FERNANDA Stop: 12/12/23 20:59 Last Admin: 11/12/23 20:22 Dose: 1,000 mg Documented By: IOANA Calcium/Vitamin D (Calcium 600mg + Vit D 400 Iu Tab) 1 tab PO QPM [facility]NAN[facility] Stop: 12/12/23 20:59 Last Admin: 11/12/23 20:22 Dose: 1 tab Documented By: IOANA Metoprolol Tartrate (Metoprolol Tartrate 25 Mg Tab) 25 mg PO TID [facility] Stop: 12/12/23 20:59 Last Admin: 11/12/23 20:22 Dose: Not Given Documented By: IOANA Multivitamins (Multivitamin Tab) 1 tab PO QPM [facility] Stop: 12/12/23 20:59 Last Admin: 11/12/23 20:21 Dose: 1 tab Documented By: IOANA Potassium Chloride (Potassium Chloride 10 Meq Tabcr) 10 meq PO QPM [facility] Stop: 12/12/23 20:59 Last Admin: 11/12/23 20:21 Dose: 10 meq Documented By: IOANA Zinc Sulfate (Zinc Sulfate 220 Mg Capsule) 220 mg PO QPM [facility] Stop: 12/12/23 20:59 Last Admin: 11/12/23 20:21 Dose: 220 mg Documented By: IOANA Discontinued Medications Bumetanide (Bumetanide 1 Mg Tab) 1 mg PO DAILY@1700 [facility] Stop: 12/12/23 19:59 Last Admin: 11/12/23 20:17 Dose: Not Given Documented By: IOANA Guaifenesin (Guaifenesin 600 Mg Tabcr) 600 mg PO NOW STA Stop: 11/12/23 15:39 Last Admin: 11/12/23 15:54 Dose: 600 mg Documented By: PEARL Acetaminophen (Ofirmev) 1,000 mg in 100 mls @ 400 mls/hr IV NOW STA Stop: 11/12/23 14:36 Last Infusion: 11/12/23 15:51 Dose: Infused Documented By: Admin: 11/12/23 14:30 Dose: 400 mls/hr Documented By: ARABELLA Sodium Chloride (Nss) 500 mls @ 999 mls/hr IV .Q31M ONE Stop: 11/12/23 14:52 Last Infusion: 11/12/23 15:59 Dose: Infused Documented By: Admin: 11/12/23 14:30 Dose: 999 mls/hr Documented By: MNE Sodium Chloride (Nss) 500 mls @ 999 mls/hr IV .Q31M ONE Stop: 11/12/23 16:43 Last Infusion: 11/12/23 17:15 Dose: Infused Documented By: Admin: 11/12/23 16:31 Dose: 999 mls/hr Documented By: AVA Loratadine (Loratadine 10 Mg Tab) 10 mg PO NOW ONE Stop: 11/12/23 18:55 Last Admin: 11/12/23 19:20 Dose: 10 mg Documented By: AVA Metoprolol Tartrate (Metoprolol Tartrate 1 Mg/Ml Vial) 5 mg IV NOW STA Stop: 11/12/23 15:39 Last Admin: 11/12/23 15:54 Dose: 5 mg Documented By: PEARL Metoprolol Tartrate (Metoprolol Tartrate 1 Mg/Ml Vial) 5 mg IV NOW STA Stop: 11/12/23 17:04 Last Admin: 11/12/23 17:08 Dose: 5 mg Documented By: AVA Metoprolol Tartrate (Metoprolol Tartrate 25 Mg Tab) 12.5 mg PO ONE ONE Stop: 11/12/23 17:43 Last Admin: 11/12/23 18:37 Dose: Not Given Documented By: AVA Metoprolol Tartrate (Metoprolol Tartrate 1 Mg/Ml Vial) 5 mg IV NOW STA Stop: 11/12/23 20:36 Last Admin: 11/12/23 20:49 Dose: 5 mg Documented By: LSG Sodium Chloride (Sodium Chloride 0.65% Na Soln 45 Ml ([place])) 2 sprays NA NOW ONE Stop: 11/12/23 15:39 Last Admin: 11/12/23 16:00 Dose: 2 sprays Documented By: AVA Imaging Data Radiologist's Impression: Chest X-Ray 11/12/23 14:10 XR chest 1V portable HISTORY: Congestion. Shortness of breath. Chest pain, nonspecific COMPARISON: Chest 03/26/2023. FINDINGS: No pneumothorax. No pleural effusions. The cardiac silhouette remains enlarged. There is mild central pulmonary vascular congestion without overt edema. This is similar to the prior study. No new focal lung consolidations to suggest a pneumonia. Calcifications again noted within the aortic knob. No acute fractures. IMPRESSION: Cardiomegaly and mild central pulmonary vascular congestion without overt edema. ACT 112: Negative or not required by law. Electronically signed by: Ken Alcantara M.D. 11/12/2023 2:47 PM Discharge Plan Visit Data Chief Complaint: Cardiac Assessment Stated Complaint: ONGOING AFIB/TROUBLE BREATHING REFERRED BY ED Provider: Ace Coburn Discharge Problem: Atrial fibrillation with rapid ventricular response, Diarrhea, Sinus congestion, Shortness of breath Patient Disposition: Admitted As Inpatient Discharge Instructions Interventions: ED Discharge Assessment Last Done: 11/12/23 19:25 Discharge Problem: Diarrhea Qualifiers: Diarrhea type: unspecified type Qualified Code(s): R19.7 - Diarrhea, unspecified
[2023-11-12] MEDS ORDERED: guaiFENesin 600 MG TABCR PO STA (15:38)
[2023-11-12] MEDS ORDERED: METOPROLOL TARTRATE 1 MG/ML VIAL IV STA ×3 (15:38→20:35)
[2023-11-12] MEDS ORDERED: SODIUM CHLORIDE 0.65% NA SOLN 45 ML (OCEAN) ONE (15:38)
[2023-11-12 15:43] LABS: Adenovirus PCR Not Detected (NotDetected); Bordetella parapertussis PCR Not Detected (NotDetected); Bordetella pertussis PCR Not Detected (NotDetected); Chlamydia pneumoniae PCR Not Detected (NotDetected); Coronavirus 229E PCR Not Detected (NotDetected); Coronavirus CoV-2 (COVID19)PCR Not Detected (NotDetected); Coronavirus HKU1 PCR Not Detected (NotDetected); Coronavirus NL63 PCR Not Detected (NotDetected); Coronavirus OC43PCR Not Detected (NotDetected); Human Metapneumovirus PCR Not Detected (NotDetected); Influenza A PCR Not Detected (NotDetected); Influenza B PCR Not Detected (NotDetected); Mycoplasma pneumoniae PCR Not Detected (NotDetected); Parainfluenza Virus 1 PCR Not Detected (NotDetected); Parainfluenza Virus 2 PCR Not Detected (NotDetected); Parainfluenza Virus 3 PCR Not Detected (NotDetected); Parainfluenza Virus 4 PCR Not Detected (NotDetected); Respiratory Syncytial VirusPCR Not Detected (NotDetected); Rhinovirus/Enterovirus PCR Not Detected (NotDetected)
[2023-11-12 17:00] LABS: Appearance Urine Clear (Clear); Bacteria Urine Automated Negative (Negative); Bilirubin Urine Negative (Negative); Blood Urine Negative (Negative); Color Urine Dark Yellow; Epithelial Cell Urine Auto >30 /lpf (0-5); Glucose Urine UA Negative (Negative); Ketones Urine Negative (Negative); Leukocyte Esterase Urine Negative (Negative); Nitrite Urine Negative (Negative); Protein Urine 1+ (Negative); RBC Urine Automated 0-4 /hpf (0-4); Urobilinogen Urine Negative (Negative); pH Urine 5.5 (4.5-7.5)
--- NOTE | 2023-11-12 17:21 | History & Physical Report ---
Date of Service November 12, 2023 Assessment & Plan (1) Atrial fibrillation with rapid ventricular response: Plan: This is a 67-year-old female with PMH of paroxysmal atrial fibrillation on Eliquis, HFrEF (EF20%10/21/23), history of dilated cardiomyopathy, hypertension, chronic sinusitis and mastoiditis, iron deficiency anemia, history of diffuse large B-cell lymphoma, WILL on CPAP and other medical problems listed below who presents with palpitations, chest tightness and fatigue over the past few days and was found to have A fib with RVR. Recently admitted at [facility] for a fib with RVR, acute decompensated HFrEF and sepsis 2/ PNA and was eventually transferred to [facility] [place] after course was complicated colonic distension consistent with acute colonic pseudo-obstruction. Per review of outpatient records, patient refused colonoscopic decompression and has had minimal response to neostigmine (was c diff negative).The patient began to show improvement on 11/03 and was being monitored closely after being resumed on diet andoralmedications. For her A fib specifically, she was being transitioned from IV medications to oral digoxin 125 mcg daily and metoprolol 25 mg XL daily but refused to stay for monitoring with this regimen and left AMA on 11/03. Presents today with HR 130s-150s, received 5mg IV Lopressor x 2 in ED with HR in 120s-130s during exam EKG reviewed, showing Afib with RVR Infectious workup negative thus far. Repeat stool cultures and c diff pending, although have clinically improved since [facility] [place] admission Will avoid CCB given HFrEF and reports "heart rate too fast" on metoprolol in the past Discussed case and medication recommendations with Dr. Senior, who recommends trial of PO Lopressor 25mg PO TID and if HR remains elevated, adding 250mcg IV Digoxin and then repeating again 6 hours later if RVR persists Monitor on telemetry, repeat Mg and BMP in AM Continue anticoagulation with Eliquis (2) HFrEF (heart failure with reduced ejection fraction): Plan: HFrEF with echo from 10/21/23 showing reduced EFof 20% Will defer to cardiology about repeating CXR with cardiomegaly and mild central pulmonary vascular congestion without ov ert edema Appears euvolemic on exam, will continue home Bumex (3) Hypertension: Plan: BP normotensive. Holding atenolol due to starting Lopressor as above (4) Chronic mastoiditis: Plan: Ongoing ENT infections, recently completed abx treatment at [facility] [place] for PNA with Rocephin/Azithro. Will add daily antihistamine (5) Fibromyalgia: Plan: Continue home baclofen, PRN Tylenol and PRN Waldo for severe pain (6) WILL on CPAP: Plan: Bipap HS DVT Ppx: Eliquis Code status: FULL PCP: Jenny Dispo: Admitted to PCU Patient seen in collaboration with Dr. Nath. Please see addendum. History of Present Illness Chief Complaint: Palpitations, fatigue, diarrhea Primary Care Provider: Jenny Pressley MD This is a 67-year-old female with PMH of paroxysmal atrial fibrillation on Eliquis, HFrEF (EF20%10/21/23), history of dilated cardiomyopathy, hypertension, chronic sinusitis and mastoiditis, iron deficiency anemia, history of diffuse large B-cell lymphoma, WILL on CPAP and other medical problems listed below who presents with palpitations, chest tightness and fatigue over the past few days. Was recently admitted at [facility] for a fib with RVR, acute decompensated HFrEF and sepsis 2/2 PNA and was eventually transferred to [facility] [place] after course was complicated colonic distension consistent with acute colonic pseudo-obstruction. Per review of outpatient records, patient refused colonoscopic decompression and has had minimal response to neostigmine (was c diff negative).The patient began to show improvement on 11/03 and was being monitored closely after being resumed on diet andoralmedications. For her A fib specifically, she was being transitioned from IV medications to oral digoxin 125 mcg daily and metoprolol 25 mg XL daily but refused to stay for monitoring with this regimen and left AMA on 11/03. Since returning home, patient has developed progressively worsened SOB as well as a squeezing pain in her back that radiates around her ribcage and causes inability to take a deep breath. She has been having this sensation for 4 days but it has gotten progressively worse in the past few. It is exacerbated with ambulation. Mobile SOB last evening and overnight even while on CPAP and she slept upright in recliner for the rest of the night. Presents today with generalized weakness, fatigue and squeezing sensation in lower back. Endorses fever of 100.5 F the last 2 nights and 100.4 F this morning. Has nasal congestion, left ear fullness and a dry cough. No CP. Endorsing loose brown stool but no bright red blood. Having 2-3 episodes daily, which is significant improvement from the diarrhea she had during hospitalization at [facility] [place]. Follows with Dr. Medina for cardiology at [facility] [place] and has an upcoming appointment for an ablation but is scheduled for an upcoming second opinion with Dr. Melendez Allergies Allergy/AdvReac Type Severity Reaction Status Date / Time lisinopril Allergy Severe Throat Verified 11/12/23 16:06 tightness Iodinated Contrast Media Allergy Intermediate Rash Verified 11/12/23 16:06 citalopram Allergy Mild Rash Verified 11/12/23 16:06 Beta-Blockers AdvReac Intermediate Increase Verified 11/12/23 16:06 (Beta-Adrenergic Bloc of symptoms/conditions digoxin AdvReac Unknown "Did not Verified 11/12/23 16:06 work" Home Medications Medication Instructions Recorded Confirmed Type ascorbic acid (vitamin C) 1,000 mg 1,000 mg PO QPM 07/24/22 11/12/23 History tablet,extended release (Vitamin C ER) atenolol 25 mg tablet 12.5 mg PO DAILY gout 07/24/22 11/12/23 History baclofen 10 mg tablet 10 mg PO BID PRN Muscle Spasm 07/24/22 11/12/23 History bumetanide 1 mg tablet 1 mg PO QPM 07/24/22 11/12/23 History calcium carbonate 600 mg-vitamin 1 tab PO QPM 07/24/22 11/12/23 History D3 10 mcg (400 unit) tablet (Calcium 600 + D(3)) multivitamin 1 tab PO QPM 07/24/22 11/12/23 History potassium chloride 10 mEq 10 meq PO QPM 07/24/22 11/12/23 History tablet,extended release(part/cryst) (Klor-Con M) acetaminophen 500 mg capsule 1,000 mg PO TID PRN Pain 03/26/23 11/12/23 History allopurinol 300 mg tablet 300 mg PO DAILY 11/12/23 11/12/23 History apixaban 5 mg tablet (Eliquis) 5 mg PO BID 11/12/23 11/12/23 History hydrochlorothiazide 12.5 mg capsule 12.5 mg PO DAILY 11/12/23 11/12/23 History hydrocodone 7.5 mg-acetaminophen 1 tab PO Q8H PRN Severe Pain 11/12/23 11/12/23 History 325 mg tablet (Scale Score 7-10) montelukast 10 mg tablet 10 mg PO DAILY 11/12/23 11/12/23 History zinc gluconate 50 mg tablet 50 mg PO QPM 11/12/23 11/12/23 History Past Med/Surg History Medical History Fibromyalgia HFrEF (heart failure with reduced ejection fraction) WILL on CPAP Left knee DJD Obesity Encounter for pre-operative examination History of COVID-19 Dx 09/2021, symptoms resolved except residual taste/smell impairment Hypertension Osteoarthritis Depression Hyperlipidemia Cancer Lymphoma (2016) s/p treatment in [place], PCP monitors Sleep apnea BIPAP (compliant) Atrial fibrillation Follows with C/Dr. Medina Septic arthritis of knee, bilateral Surgical History History of tonsillectomy and adenoidectomy History of ear surgery LEFT X 2-RIGHT X 1-MASTOIDECTOMY/TYMPANOPLASTY History of sinus surgery History of section History of thyroidectomy History of esophagogastroduodenoscopy (EGD) History of colon resection 2015 FOR BLEEDING TUMOR History of colonoscopy History of cardioversion ~2014 Family History Other Hypertension Social History Smoking Status: Never smoker Second Hand Exposure: Yes (FATHER SMOKED); Do You Dip or Chew Tobacco: No; Hx Alcohol Use: No Hx Substance Use: No Preferred Language: Colombian Communication Ability: Effective 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 Physical Exam Physical Exam: Please see Dr. Nath's addendum for physical exam. Results & Data Results & Data Vital Signs (Past 12 Hours) Vital Signs Temp Pulse Pulse Resp BP BP Pulse Ox 11/12/23 17:08 123 H 107/91 11/12/23 16:32 118 H 18 123/90 94 11/12/23 16:31 124 H 123/90 11/12/23 16:05 129 H 11/12/23 15:54 156 H 142/96 H 11/12/23 14:10 92 11/12/23 13:52 36.6 C 132 H 18 124/92 94 O2 Del Method 11/12/23 17:08 11/12/23 16:32 Room Air 11/12/23 16:31 11/12/23 16:05 11/12/23 15:54 11/12/23 14:10 Room Air 11/12/23 13:52 Room Air Laboratory Results Short CBC 11/12/23 Range/Units 14:07 WBC 10.68 (4.8-10.8) K/ul Hgb 13.3 (12.0-16.0) g/dl Hct 39.4 (37.0-47.0) % Plt Count 234 (130-400) K/uL BMP 11/12/23 14:07 Sodium 138 Potassium 4.1 Chloride 102 Carbon Dioxide 28 BUN 19 Creatinine 0.84 Glucose 124 H Calcium 9.6 Liver Function 11/12/23 Range/Units 14:07 Total Bilirubin 0.8 (0.2-1.0) mg/dl AST 31 (13-39) U/L ALT 48 (7-52) U/L Alkaline Phosphatase 130 H (34-104) U/L Albumin 4.0 (3.4-5.0) gm/dl Urine 11/12/23 Range/Units 16:35 Urine Color Dark Yellow Urine Appearance Clear (Clear) Urine pH 5.5 (4.5-7.5) Ur Specific Dora 1.020 (1.000-1.030) Urine Protein 1+ H (Negative) Urine Glucose (UA) Negative (Negative) Diagnostic Findings Chest X-Ray 11/12/23 14:10 XR chest 1V portable HISTORY: Congestion. Shortness of breath. Chest pain, nonspecific COMPARISON: Chest 03/26/2023. FINDINGS: No pneumothorax. No pleural effusions. The cardiac silhouette remains enlarged. There is mild central pulmonary vascular congestion without overt edema. This is similar to the prior study. No new focal lung consolidations to suggest a pneumonia. Calcifications again noted within the aortic knob. No acute fractures. IMPRESSION: Cardiomegaly and mild central pulmonary vascular congestion without overt edema. ACT 112: Negative or not required by law. Electronically signed by: Ken Alcantara M.D. 11/12/2023 2:47 PM Supervising Physician Co-Signing Physician Notes 67 year old woman who presents with worsening WALLACE, lower chest/upper abd tightness with walking, feeling unwell for the past 4 days Reports symptoms worsening since recent hospitalization at [facility] then transferred to [facility] [place] and was managed for Afib w/RVR, pneumonia, colonic pseudoobstruction. Reports dry cough, sinus congestion and ear fullness. Reports she always had ear fullness with URI and had some surgeries in both ears in the past Reported an episode of PND last night. Usually sleeps Reports loose stool about 2x a day. Stated they were watery while in the hospital but that had resolved. Denied abd pain, nausea, vomiting, melena, hematochezia Reported some low grade temp at home Denied dysuria, freq, urgency On exam General: Obese, not in distress Eyes: PERRL, conjunctivae normal, not pale, anicteric sclerae, EOM intact bilaterally ENMT: External ear and nose normal, oropharynx normal Respiratory: Normal respiratory effort, no respiratory distress, lungs clear to auscultation Cardiovascular: Tachycardic, irregular, S1 S2 Gastrointestinal (Abdomen): Abdomen is not distended, soft, non-tender to palpation, no guarding, no palpable hepatosplenomegaly, normal bowel sounds Musculoskeletal: No pedal edema Genitourinary: No CVA tenderness Neurologic: Alert and oriented x 3, No focal weakness, sensation grossly intact Psychiatric: Alert and oriented x 3, euthymic affect, no depressed affect Labs notable for Alk Phos 130 XR Chest noted cardiomegaly and mild pulm vasc congestion EKG reviewed. Has Afib with RVR Per DC summary, it seems patient left [facility] [place] AMA Afib w/RVR Start lopressor po 25mg TID and give IV prn. Hold home atenolol Monitor HR Optimize HR control Tele monitor Check BNP. Cards consult Infectious workup negative so far. Follow up stool analysis Continue home bumex I spent a total of 45 minutes coordinating, documenting and providing care for this patient excluding time spent in performance of separately billed services
[2023-11-12] MEDS ORDERED: METOPROLOL TARTRATE 25 MG TAB PO ONE (17:42)
[2023-11-12] MEDS ORDERED: LORATADINE 10 MG TAB PO ONE (18:54)
[2023-11-12] MEDS ORDERED: BACLOFEN 10 MG TAB PO PRN (19:44)
[2023-11-12] MEDS ORDERED: ONDANSETRON INJ 2 MG/ML 2 ML VIAL IV PRN (19:44)
[2023-11-12] MEDS ORDERED: HYDROCODONE/ACETAMINOPHEN 7.5/325MG TAB PO PRN (19:44)
[2023-11-12] MEDS ORDERED: POLYETHYLENE (MIRALAX) 17 GM PACK PO PRN (19:44)
[2023-11-12] MEDS ORDERED: ACETAMINOPHEN 500 MG TAB PO PRN (19:53)
[2023-11-12] MEDS ORDERED: BUMETANIDE 1 MG TAB PO SCH (20:00)
[2023-11-12] MEDS: ZINC SULFATE 220 MG CAPSULE PO SCH (20:21)
[2023-11-12] MEDS: MULTIVITAMIN TAB PO SCH (20:21)
[2023-11-12] MEDS: POTASSIUM CHLORIDE 10 MEQ TABCR PO SCH (20:21)
[2023-11-12] MEDS: APIXABAN 5 MG TABLET PO SCH (20:22)
[2023-11-12] MEDS: CALCIUM 600MG + VIT D 400 IU TAB PO SCH (20:22)
[2023-11-12] MEDS: ASCORBIC ACID 500 MG TAB PO SCH (20:22)
[2023-11-12] MEDS: METOPROLOL TARTRATE 25 MG TAB PO SCH (20:22)
[2023-11-12] MEDS ORDERED: METOPROLOL TARTRATE 25 MG TAB PO SCH (21:00)
[2023-11-12] MEDS ORDERED: Nursing to Pharmacy Communication SCH (21:45)
--- OUTSIDE RECORDS SUMMARY | 2023-11-12 22:20 | External Medical Summary | Summary of Care ---
Author Name Unknown Organization [facility] Address [address] [place] [address] Phone [phone] Care Team Providers Care Asset Manager Name Role Phone Jenny Pressley MD Primary Care Provider [phone] Encounter Details Date Type Department Care Team (Late st Contact Info) Description 11/04/2023 Telephone [facility] [address] [place] [address] Jenny Pressley MD [address] [place] [address] Allergies Active Allergy Reactions Criticality Noted Date Comments Beta Adrenergic Blockers Other (Please comment) 11/28/2021 Made heart worse Citalopram Unknown 11/17/2022 Digoxin Psych complications 01/22/2015 aggitated Other reaction(s): ineffective, Palpitations, psychologically caused depression caused depression Bisacodyl 06/17/2016 Triggered an episode of afib Iodinated Contrast Media Rash 07/06/2013 Lisinopril Edema face/lips/tongue High 01/22/2015 Losartan 06/24/2021 Metoprolol 11/03/2014 (toprol) Per pt., made heart "pound" Sotalol 02/25/2013 Pseudoephedrine Tachycardia High 10/06/2023 Causes afib and led to admit to hospital documented as of this encounter (statuses as of 11/06/2023) Medications Medication Sig Dispensed Refills Start Date End Date Status Cholecalciferol 25 MCG (1000 UT) Oral Capsule Take by mouth. 0 Active Ascorbic Acid 1000 MG Oral Tablet Take by mouth. 0 Active Multivitamin Adult Extra C Oral Tablet Chewable Take by mouth . 0 Active Baclofen 10 MG Oral Tablet (Lioresal) TAKE 1 TAB BY MOUTH 2 TIMES A DAY NEEDED FOR CRAMPING OR MUSCLE SPASMS. 60 Tablet 1 07/10/2022 Active Bumetanide 1 MG Oral Tablet (Bumex) TAKE 1 TAB BY MOUTH IN THE MORNING. TAKE ONE EXTRA TAB DAILY NEEDED FOR WEIGHT GAIN DIRECTED 180 Tablet 1 04/07/2023 Active Additional Information Patient taking differently: 1-2 Tablet Oral Daily(AM), Take 1-2 tablets daily depending on weight and swelling, Reported on 11/04/2023 Potassium Chloride Jihan ER 10 MEQ Oral Tablet Extended Release (Klor-Con M10) TAKE 2 TABLETS BY MOUTH EVERY DAY 180 Tablet 1 04/07/2023 Active Additional Information Patient taking differently: 20 mEq Oral DAILY NOON, TAKE 2 TABLETS BY MOUTH EVERY DAY, Reported on 10/08/2023 Allopurinol 300 MG Oral Tablet (Zyloprim) Take 1 Tablet by mouth in the morning. 90 Tablet 3 08/18/2023 Active Additional Information Patient not taking.Reported on 09/29/2023 hydroCHLOROthiazi de 12.5 MG Oral Capsule (Hydrodiuril) Take 1 Capsule by mouth in the morning. 90 Capsule 3 09/14/2023 Active Additional Information Patient not taking.Reported on 09/29/2023 HYDROcodone-Aceta minophen 7.5-325 MG Oral TabletIndications :Controlled substance agreement signed,Status post right knee replacement,Rotat or cuff syndrome of left shoulder Take 1 Tablet by mouth every 8 hours as needed for Pain, Breakthrough or Pain, Severe. 30 Tablet 0 09/15/2023 Active Additional Information Patient not taking.Reported on 10/22/2023 Montelukast Sodium 10 MG Oral Tablet (Singulair) TAKE 1 TABLET BY MOUTH EVERY DAY IN THE MORNING 90 Tablet 1 10/06/2023 Active Additional Information Patient not taking.Reported on 10/08/2023 Atenolol 25 MG Oral Tablet (Tenormin) Take 0.5-1 Tablets by mouth in the morning. 0.5 tablet daily, takes 1 mg if BP elevated and heart rate elevated, usually takes 0.5 tablet. 0 Active Eliquis 5 MG Oral Tablet Take 1 Tablet by mouth in the morning and 1 Tablet before bedtime. 0 10/05/2023 Active Zinc 50 MG Oral Tablet Take 1 Tablet by mouth daily. 0 Active BiPAP every night at bedtime. 0 Active Fluconazole 150 MG Oral Tablet (Diflucan) Take 1 Tablet by mouth once for 1 dose. 1 Tablet 0 11/06/2023 11/06/2023 Active documented as of this encounter (statuses as of 11/06/2023) Active Problems Problem Noted Date Diagnosed Date Dilated cardiomyopathy 10/26/2023 Diarrhea 10/25/2023 Dilatation of colon 10/25/2023 Ileus, postoperative 10/23/2023 Paroxysmal atrial fibrillation 10/21/2023 Pneumonia 10/21/2023 Severe sepsis with acute organ dysfunction 10/21 Fever of unknown origin 10/21/2023 Elevated troponin 10/20/2023 Body mass index (BMI) of 40.0 to 44.9 in adult 1 12/06/2022 Overview: Per Obesity protocol Gout of big toe 11/17/2022 Status post right knee replacement 10/07/2022 Chronic allergic rhinitis 10/07/2022 Rotator cuff syndrome of left shoulder Diverticulitis of colon 10/07/2022 History of diffuse large B-cell lymphoma 022 Status post ablation of atrial fibrillation 06/26 Multiple thyroid nodules 11/08/2020 Hypertensive heart disease w ith chronic systolic congestive heart failure 10/31/2020 Overview: Combination code derived from problem list Controlled substance agreement signed 10/26/2017 Difficult intubation 07/24/2016 Overview: Patient had mask pre O2 and optimal positioning prior to induction of general anesthesia. Mask ventilation possible without oral airway. Patient paralysed and attempts to intubate were not immediately successful. Techniques tried: C-Mac D blade and 3 blade; poor viability and unable to pass endotracheal tube. Mac 3 direct laryngoscopy (DL) tried; view was limited and unable to pass styletted ETT #7. Intermittent mask ventilation adequate between attempts. O2 Sat briefly desat with recovery to >90%. Attempted oral fiberoptic intubation not successful. Attempted DL MAC 3 by another anesthesiologist, () using bougie; only epiglottis visible with secretions and minimal blood stain present, bougie was not able to be passed with confidence into trachea. Mask ventilation and more paralysis used without problem. #5 LMA easily placed. Good airway and ventilation. Fiberoptic scope passed down LMA and vocal cords and glottis visualized. Scope passed into trachea and bronchus take- offs seen, # 7 ETT passed over scope down LMA. Good ventilation, 21 cm at lip, equal breath sounds and good end tidal CO2 wave. Secured with both LMA and ETT in place. Case continued as planned. Plan awake extubation in PACU/OR as needed. Bargainnier DO Gastrointestinal hemorrhage 07/22/2016 Iron deficiency anemia due to chronic blood loss 06/23/2016 WILL on CPAP 03/08/2015 Acute on chronic systolic heart failure 01/23/20 15 Atrial fibrillation with rapid ventricular respo nse 01/22/2015 HTN, goal below 140/90 11/03/2014 Paroxysmal atrial fibrillation 02/25/2013 TEMPOROMANDIBULAR JOINT DISORDERS, UNSPECIFIED 0 05/29/2010 Malocclusion 05/29/2010 SENSORY HEARING LOSS, UNILATERAL,RIGHT 0 Chronic mastoiditis 05/28/2010 Deviated nasal septum 05/28/2010 Hypertrophy of nasal turbinates 05/28/2010 ADVANCE DIRECTIVE INFORMATION 10/28/2005 Overview: No, Advance Directive brochure given to patient at prior appointment. Other chronic sinusitis Anterior scleritis Overview: OD Drusen of optic disc Overview: OS by CT documented as of this encounter (statuses as of 11/06/2023) Resolved Problems Problem Noted Date Diagnosed Date Resolved Date Morbid (severe) obesity due to excess calories 11/05/2022 11/17/2022 Diffuse large B-cell lymphom a of intra-abdominal lymph nodes 08/06/2016 07/10/2022 Anemia 07/22/2016 12/03/2018 Encounter for mastoidectomy cavity debridement 05/13/2015 05/13/2015 Pulmonary edema 01/22/2015 11/08/2020 Respiratory failure with hypoxia 01/22/2015 12/03/2018 Palpitations 02/01/2013 12/03/2018 ENDOCRINE ANOMALY (THYROID) 05/29/2010 05/07/2020 MIXED HEARING LOSS, UNILATERAL,LEFT 05/28/2010 05/07/2020 SLEEP APNEA, UNSPECIFIED 10/2014 HYPERTENSION, ESSENTIAL NOS (G) 12/03/2018 NONALLERGIC RHINITIS 019 Atrial fibrillation 12/03/19 19 documented as of this encounter (statuses as of 11/06/2023) Immunizations Name Administration Dates Next Due PPD 05/07/2020 documented as of this encounter Social History Tobacco Use Types Packs/Day Years Used Date Smoking Tobacco: Never Passive Smoke Exposure: Past Smokeless Tobacco: Never Comments:no passive smoke ex posures Alcohol Use Standard Drinks/Week Comments Not Currently 0 (1 standard drink = 0.6 oz pur e alcohol) rarely PHQ-2 Answer Date Recorded PHQ Adult Total Score 1 10/08/2023 Hunger Vital Sign Answer Date Recorded Within the past 12 months, y ou worried that your food would run out before you got the money to buy more. Never true 10/08/20 23 Within the past 12 months, t he food you bought just didn't last and you didn't have money to get more. Never true 10/08/2023 Sex and Gender Information Value Date Recorded Sex Assigned at Female 11/17/2022 1:01 PM EST Gender Identity Female 11/17/2022 1:01 PM EST Sexual Orientation Straight 11/17/2022 1: 01 PM EST Job Start Date Occupation Industry Not on file Not on file Not on file documented as of this encounter Functional Status Functional Status Response Date of Assess ment Are you deaf or do you have serious difficulty hearing? No 10/21/2023 Are you blind or do you have serious difficulty seeing, even when wearing glasses? No 10/21/2023 Do you have serious difficul ty walking or climbing stairs? (5 years old or older) Yes-climbing stairs r/t knee problem 10/21/2023 Do you have difficulty dress ing or bathing? (5 years old or older) No 10/21/2023 Because of a physical, menta l, or emotional condition, do you have difficulty doing errands alone such as visiting a doctor s office or shopping? (15 years old or older) No 10/21/2023 Cognitive Status Response Date of Assessm ent Because of a physical, menta l, or emotional condition, do you have serious difficulty concentrating, remembering, or making decisions? (5 years old or older) No 10/21/2023 documented as of this encounter Miscellaneous Notes * Telephone Encounter - Olga Rivera CCMA - 11/06/2023 2:27 PM EST Called patient. Left message on answering machine to call office. * Telephone Encounter - Jenny Pressley MD - 11/06/2023 1:12 PM EST Just sent out diflucan Please take one dose and will see her as scheduled on nov 09 * Telephone Encounter - Karlie Hill OSA - 11/04/2023 2:15 PM EST Patient scheduled Hospital Discharge with Dr. Pressley. She states that she doesn't want to go to [facility] anymore. She only went to [facility] to try it out. She states that she is getting a yeast infection from the antibiotics that she was given in the hospital and would like something to take care of it. Can this be done or does she need an appointment? 11/04/2023 documented in this encounter Plan of Treatment Upcoming Encounters Date Type Department Care Team (Late st Contact Info) Description 11/09/2023 11:40 AM EST Office Visit [facility] [address] [phone] Jenny Pressley MD [address] [facility] [place] [address] 11/13/2023 9:45 AM EST Office Visit Cardiology, [facility] [address] [facility] [place] [address] Maggie Melendez DO [address] [facility] [place] [place] [address] 12/10/2023 2:20 PM EST Office Visit Family Practice [address] [facility] [address] [place] [address] Lucie Montero, DO [address] [place] [address] 12/24/2023 2:00 PM EST Nurse Only Ancillary [facility] [address] [place] [address] College, Nurse Annual Wellness Visit [address] [place] [address] 09/30/2024 2:30 PM EST Office Visit Otolaryngology [facility] 132 [place] [address] Femi Bal, [address] [place] [address] Health Maintenance Due Date Last Done Comments COVID-19 Vaccine (#1) 05/20/1956 Pneumococcal Vaccine: 65+ Years (1 - PCV) 1960 DTaP,Tdap,and Td Vaccines (1 - Tdap) 1973 Mammogram 1994 Zoster Vaccines (1 of 2) 2004 COLONOSCOPY-EVERY 5 YRS AGES 18-100 06/24/2021 06/24/2016, 06/24/2016 Influenza Vaccine (FLU shot) (#1) 2023 Depression Screening 10/08/2024 10/08/2023, 01/30/2015 (Declined) GFR 11/03/2024 11/03/2023, 05/2024, 11/01/2023, Additional history exists Albumin/Creatinine Ratio 05/18/2026 05/18/2023 Diabetes Screening 11/03/2026 11/03/2023, 0 11/02/2023, 11/01/2023, Additional history exists Lipid Panel 10/21/2028 10/21/2023, 07/2 01/2023, 02/09/2021, Additional history exists DXA Scan Discontinued GARDASIL-HPV IMMUNIZATION SERIES Aged Out No longer eligible based on patient's age to complete this topic Hepatitis B Aged Out No longer eligi ble based on patient's age to complete this topic MENINGOCOCCAL (MENACTRA/MENVEO) Aged Out No longer eligible based on patient's age to complete this topic documented as of this encounter Medical Devices Not on filedocumented as of this encounter Advance Directives Latest Code Status on File Code Status Date Activated Date Inactivated Comments Full Code 11/03/2023 10:26 AM 11/03/2023 8:50 PM This o rder reflects the patients wishes and were consensually agreed upon. Question Answer Comments Discussion of Advance Directives occurred with: Patient Does the patient have a Living Will? No Does the patient have Health Care Power of Medical Recruiter? No Code Status History Code Status Date Activated Date Inactivated Comments Full Code 10/21/2023 8:39 PM 11/03/2023 10:26 AM This order reflects the patients wishes and were consensually agreed upon. Question Answer Comments Discussion of Advance Directives occurred with: Patient Full Code 10/20/2023 10:48 PM 10/21/2023 8:38 PM Th is order reflects the patients wishes and were consensually agreed upon. Question Answer Comments Discussion of Advance Directives occurred with: Patient Does the patient have a Living Will? No Does the patient have Health Care Power of Medical Recruiter? No Full Code 07/22/2016 6:01 PM 07/29/2016 8:21 PM This order reflects the patients wishes and were consensually agreed upon. Question Answer Comments Discussion of Advance Directives occurred with: Patient Does the patient have a Living Will? No Does the patient have Health Care Power of Medical Recruiter? No Full Code 01/22/2015 6:34 AM 01/24/2015 9:44 PM This o rder reflects the patients wishes and were consensually agreed upon. Question Answer Comments Discussion of Advance Directives occurred with: Patient Does the patient have a Living Will? No Does the patient have Health Care Power of Medical Recruiter? No Care Teams Asset Manager Relationship Specialty Start Date End Date Jenny Pressley MD [address] [address] PCP - General Internal Medicine 11/04/23 documented as of this encounter
--- OUTSIDE RECORDS SUMMARY | 2023-11-12 22:20 | External Medical Summary | Summary of Care ---
Author Name Unknown Organization [facility] Address [address] [place] [address] Phone [phone] Care Team Providers Care Application Integrator Name Role Phone Jenny Pressley MD Primary Care Provider [phone] Encounter Details Date Type Department Care Team (Late st Contact Info) Description 11/04/2023 Telephone [facility] [address] [place] [address] Jenny Pressley MD [address] [place] [address] Allergies Active Allergy Reactions Criticality [...] Description 11/09/2023 11:40 AM EST Office Visit [facility] [address] [phone] Jenny Pressley MD [address] [facility] [place] [address] 11/13/2023 9:45 AM EST Office Visit Cardiology, [facility] [address] [facility] [place] [address] Maggie Melendez DO [address] [facility] [place] [place] [address] 12/10/2023 2:20 PM EST Office Visit Family Practice 65 [facility] [address] [place] [address] Lucie Montero, DO 293 [place] [address] 12/24/2023 2:00 PM EST Nurse Only Ancillary 65 [facility] [address] [place] [address] College, Nurse Annual Wellness Visit [address] [place] [address] 09/30/2024 2:30 PM EST Office Visit Otolaryngology [facility] [address] [facility] [place] [address] Femi Bal, 132 [facility] [place] [address] Health Maintenance Due Date Last Done Comments [...] the patient have Health Care Power of Pet Counselor? No Code Status History Code Status Date [...] the patient have Health Care Power of Pet Counselor? No Full Code 07/22/2016 6:01 PM 07/29/2016 8:21 PM This order reflects the patients wishes and were consensually agreed upon. Question Answer Comments Discussion of Advance Directives occurred with: Patient Does the patient have a Living Will? No Does the patient have Health Care Power of Pet Counselor? No Full Code 01/22/2015 6:34 AM 01/24/2015 9:44 PM This o rder reflects the patients wishes and were consensually agreed upon. Question Answer Comments Discussion of Advance Directives occurred with: Patient Does the patient have a Living Will? No Does the patient have Health Care Power of Pet Counselor? No Care Teams Application Integrator Relationship Specialty Start Date End Date Jenny Pressley MD [address] [address] PCP - General Internal Medicine 11/04/23 documented as of this encounter
--- OUTSIDE RECORDS SUMMARY | 2023-11-12 22:20 | External Medical Summary | Summary of Care ---
Author Name Unknown Organization [facility] Address [address] [place] [address] Phone [phone] Care Team Providers Care Fitter / Welder Name Role Phone Jenny Pressley MD Primary Care Provider [phone] Encounter Details Date Type Department Care Team (Late st Contact Info) Description 11/04/2023 Telephone [facility] [address] [place] [address] Jenny Pressley MD [address] [place] [address] Allergies Active Allergy Reactions Criticality [...] encounter Miscellaneous Notes * Telephone Encounter - Jenny Pressley MD [...] Description 11/09/2023 11:40 AM EST Office Visit [facility] [address] [facility] [phone] Jenny [facility] [address] [facility] [address] 11/13/2023 9:45 AM EST Office Visit Cardiology, [facility] [address] [facility] [place] [phone] Maggie Melendez [address] [place] [address] 12/10/2023 2:20 PM EST Office Visit [facility] [address] [place] [address] [facility] [phone] Lucie Montero, DO [address] [place] [address] 12/24/2023 2:00 PM EST Nurse Only Ancillary 65 [facility] [place] [address] [place] [address] College, Nurse Annual Wellness Visit [address] [facility] [address] [place] [address] 09/30/2024 2:30 PM EST Office Visit Otolaryngology [facility] [address] [facility] [place] [address] Femi Bal, DO [address] [facility] [place] [address] Health Maintenance Due Date Last Done Comments [...] Additional history exists Lipid Panel 10/21/2028 10/21/2023, 04/26, 02/09/2021, Additional history exists DXA Scan Discontinued [...] the patient have Health Care Power of Db2 Developer? No Code Status History Code Status Date [...] the patient have Health Care Power of Db2 Developer? No Full Code 07/22/2016 6:01 PM 07/29/2016 8:21 PM This order reflects the patients wishes and were consensually agreed upon. Question Answer Comments Discussion of Advance Directives occurred with: Patient Does the patient have a Living Will? No Does the patient have Health Care Power of Db2 Developer? No Full Code 01/22/2015 6:34 AM 01/24/2015 9:44 PM This o rder reflects the patients wishes and were consensually agreed upon. Question Answer Comments Discussion of Advance Directives occurred with: Patient Does the patient have a Living Will? No Does the patient have Health Care Power of Db2 Developer? No Care Teams Fitter / Welder Relationship Specialty Start Date End Date Jenny Pressley MD [address] [place] [address] PCP - General Internal Medicine 11/04/23 documented as of this encounter
--- OUTSIDE RECORDS SUMMARY | 2023-11-12 22:20 | External Medical Summary | Summary of Care ---
Author Name Unknown Organization [facility] Address [address] [place] [address] Phone [phone] Care Team Providers Care Branch Rental Manager Name Role Phone Jenny Pressley MD Primary Care Provider [phone] Reason for Visit * Reason Onset Date Comments Appointment 11/04/2023 Post hospital cristal alcocer appointment needed Encounter Details Date Type Department Care Team (Late st Contact Info) Description 11/04/2023 Telephone Care Coordination and Integration [address], [place] [id number] Jeny Castanon, RADHA [address], [place] [id number] Appointment (Post hospital discharge appoi... Allergies Active Allergy Reactions Criticality Noted Date [...] as of this encounter (statuses as of 11/10/2023) Medications Medication Sig Dispensed Refills Start Date End Date Status Cholecalciferol 25 MCG (1000 UT) Oral Capsule Take by mouth. 0 Active Ascorbic Acid 1000 MG Oral Tablet Take by mouth. 0 Active Multivitamin Adult Extra C Oral Tablet Chewable Take by mouth . 0 Acti ve Baclofen 10 MG Oral Tablet (Lioresal) TAKE [...] Additional Information Patient not taking.Reported on 09/29/2023 hydroCHLOROthiazid e 12.5 MG Oral Capsule (Hydrodiuril) Take 1 Capsule by mouth in the morning. 90 Capsule 3 09/14/2023 Active Additional Information Patient not taking.Reported on 09/29/2023 HYDROcodone-Acetam inophen 7.5-325 MG Oral TabletIndications: Controlled substance agreement signed,Status post right knee replacement,Rotato r cuff syndrome of left shoulder Take 1 [...] BiPAP every night at bedtime. 0 Active documented as of this encounter (statuses as of 11/10/2023) Active Problems Problem Noted Date Diagnosed Date [...] as of this encounter (statuses as of 11/10/2023) Resolved Problems Problem Noted Date Diagnosed Date [...] as of this encounter (statuses as of 11/10/2023) Immunizations Name Administration Dates Next Due PPD [...] encounter Miscellaneous Notes * Telephone Encounter - Sharon Chaudhry LPN - 11/06/2023 11:03 AM EST Pt is scheduled with Dr. Pressley on 11/09 * Telephone Encounter - Jeny Castanon RN - 11/04/2023 1:21 PM EST Ramona was originally going to change her PCP but has since decided to stay with Dr. Pressley. She was just in the hospital from 10[facility]20/2023[facility]11[facility]03[facility] She was treated for shortness of breath, Heart Failure exacerbation, A-fib with RVR, sepsis secondary to pneumonia and acute pseudo-obstruction. She left AMA 11/03/2023 I am unsure who to send this request to as I do not want the request to be scheduled as a routine follow up appointment and ideally would like her seen within 7-10 days if not sooner due to her leaving the hospital AMA. I have sent this encounter to the nurse pool at [facility]. If that is not the right pool please forward to the correct pool. I am requesting that someone contact Ramona to schedule a post hospital admission discharge appointment as soon as possible. If there are any questions please feel free to contact me. Thank you, Jeny Castanon, RN, BSN, [facility] Cardiology and Pulmonary Specialty Real Estate Sales Supervisor [facility]Cardiology [facility] [phone] documented in this encounter Plan of Treatment Upcoming Encounters Date Type Department Care Team (Late st Contact Info) Description 11/12/2023 2:00 PM EST Office Visit [facility] [address] [facility] [place] [address] Jenny Pressley MD [address] [facility] [place] [address] 11/13/2023 9:45 AM EST Office Visit Cardiology, [facility] [address] [facility] [place] [address] Maggie Melendez, DO [address] [place] [address] 12/10/2023 2:20 PM EST Office Visit Family Practice 65 [facility] [address] [place] [address] Lucie Montero, DO [address] [facility] [place] [address] 12/24/2023 2:00 PM EST Nurse Only Ancillary [address] [facility] [address] [place] [address] College, Nurse Annual Wellness Visit [address] [place] [address] 09/30/2024 2:30 PM EST Office Visit Otolaryngology [facility] [address] [facility] [place] [address] Femi Bal, DO [address] [facility] [place] [address] Health Maintenance Due Date Last Done Comments [...] Additional history exists Lipid Panel 10/21/2028 10/21/2023, 072 01/2023, 02/09/2021, Additional history exists DXA Scan [...] the patient have Health Care Power of Processes Chemical Design Engineer? No Code Status History Code Status Date [...] the patient have Health Care Power of Processes Chemical Design Engineer? No Full Code 07/22/2016 6:01 PM 07/29/2016 8:21 PM This order reflects the patients wishes and were consensually agreed upon. Question Answer Comments Discussion of Advance Directives occurred with: Patient Does the patient have a Living Will? No Does the patient have Health Care Power of Processes Chemical Design Engineer? No Full Code 01/22/2015 6:34 AM 01/24/2015 9:44 PM This o rder reflects the patients wishes and were consensually agreed upon. Question Answer Comments Discussion of Advance Directives occurred with: Patient Does the patient have a Living Will? No Does the patient have Health Care Power of Processes Chemical Design Engineer? No Care Teams Branch Rental Manager Relationship Specialty Start Date End Date Jenny Pressley MD [address] [place] [address] PCP - General Internal Medicine 11/04/23 documented as of this encounter
--- OUTSIDE RECORDS SUMMARY | 2023-11-12 22:20 | External Medical Summary | Summary of Care ---
Author Name Unknown Organization [facility] Address [address] [place] [address] Phone [phone] Care Team Providers Care Case Briefer Name Role Phone Jenny Pressley MD Primary Care Provider [phone] Encounter Details Date Type Department Care Team (Late st Contact Info) Description 11/04/2023 Telephone [facility] [address] [place] [address] Jenny Pressley MD [address] [place] [address] Allergies Active Allergy Reactions Criticality [...] encounter Miscellaneous Notes * Telephone Encounter - Jazzy Rojas LPN - 11/06/2023 3:42 PM EST Patient aware and verbalized understanding, will comply * Telephone Encounter - Olga Rivera CCMA [...] Description 11/09/2023 11:40 AM EST Office Visit [facility] [address] [facility] [address] Jenny Pressley [facility] [address] [facility] [address] 11/13/2023 9:45 AM EST Office Visit Cardiology, [facility] [address] [facility] [place] [address] Maggie Melendez, DO [address] [facility] [place] [address] 12/10/2023 2:20 PM EST Office Visit Family Practice 65 [facility] 293 [place] [address] Lucie Montero, DO [address] [place] [address] 12/24/2023 2:00 PM EST Nurse Only Ancillary 65 [facility] 293 [place] [address] College, Nurse Annual Wellness Visit [address] [place] [address], [place] [address] 09/30/2024 2:30 PM EST Office Visit Otolaryngology [facility] 132 [facility] [place] [address] Femi Bal, DO [address] [facility] [place] [address] Health Maintenance Due Date Last Done Comments [...] the patient have Health Care Power of Arc Welder? No Code Status History Code Status Date [...] the patient have Health Care Power of Arc Welder? No Full Code 07/22/2016 6:01 PM 07/29/2016 8:21 PM This order reflects the patients wishes and were consensually agreed upon. Question Answer Comments Discussion of Advance Directives occurred with: Patient Does the patient have a Living Will? No Does the patient have Health Care Power of Arc Welder? No Full Code 01/22/2015 6:34 AM 01/24/2015 9:44 PM This o rder reflects the patients wishes and were consensually agreed upon. Question Answer Comments Discussion of Advance Directives occurred with: Patient Does the patient have a Living Will? No Does the patient have Health Care Power of Arc Welder? No Care Teams Case Briefer Relationship Specialty Start Date End Date Jenny Pressley MD [address] [place] [address] PCP - General Internal Medicine 11/04/23 documented as of this encounter
--- OUTSIDE RECORDS SUMMARY | 2023-11-12 22:21 | External Medical Summary ---
Author Name Unknown Address Unknown Organization [id number]:LABORATORY [facility] [place] - [facility] [address] [facility] [address] Laboratory Report Ordering Provider Test Date Status YUN DAWN 10/30/2023 04:02:00 Final Observation Date Value Abnormality Reference (Units ) Status WBC, Total 10/30/2023 04:02:00 6.83 4.00-10.80 (K/uL) Final RBC 10/30/2023 04:02:00 4.93 3.85-5.15 (M/uL) Final Hemoglobin 10/30/2023 04:02:00 14.6 12.0-15.3 (g/dL) Final HCT 10/30/2023 04:02:00 44.5 36.0-45.2 (%) Final MCV 10/30/2023 04:02:00 90.3 81.5-97.5 (fL) Final MCH 10/30/2023 04:02:00 29.6 27.0-34.0 (pg) Final MCHC 10/30/2023 04:02:00 32.8 32.0-36.0 (g/dL) Final RDW 10/30/2023 04:02:00 14.4 11.5-15.5 (%) Final Platelets 10/30/2023 04:02:00 246 140-400 (K/uL) Final MPV 10/30/2023 04:02:00 9.8 6.6-11.1 (fL) Final Nucleated erythrocytes/100 leukocytes [Ratio] in Blood by Automated count 10/30/2023 04:02:00 0 <=0 (/100 WBCs) Final Performing Location LABORATORY [facility] - [address] [facility] [address]
--- OUTSIDE RECORDS SUMMARY | 2023-11-12 22:21 | External Medical Summary ---
Author Name Unknown Address Unknown Organization [id number]:[facility] [place] [facility] [address] [facility] [address] Laboratory Report Ordering Provider Test Date Status YUN DAWN 11/01/2023 07:01:00 Final Observation Date Value Abnormality Reference (Units ) Status WBC, Total 11/01/2023 07:01:00 7.33 4.00-10.80 (K/uL) Final RBC 11/01/2023 07:01:00 4.55 3.85-5.15 (M/uL) Final Hemoglobin 11/01/2023 07:01:00 13.6 12.0-15.3 (g/dL) Final HCT 11/01/2023 07:01:00 40.7 36.0-45.2 (%) Final MCV 11/01/2023 07:01:00 89.5 81.5-97.5 (fL) Final MCH 11/01/2023 07:01:00 29.9 27.0-34.0 (pg) Final MCHC 11/01/2023 07:01:00 33.4 32.0-36.0 (g/dL) Final RDW 11/01/2023 07:01:00 14.3 11.5-15.5 (%) Final Platelets 11/01/2023 07:01:00 269 140-400 (K/uL) Final MPV 11/01/2023 07:01:00 9.4 6.6-11.1 (fL) Final Nucleated erythrocytes/100 leukocytes [Ratio] in Blood by Automated count 11/01/2023 07:01:00 0 <=0 (/100 WBCs) Final Performing Location [facility] [place] [address] [facility] [address]
--- OUTSIDE RECORDS SUMMARY | 2023-11-12 22:21 | External Medical Summary ---
Author Name Unknown Address Unknown Organization [id number]:LABORATORY [facility] [place] - [address] [facility] [place] [address] Laboratory Report Ordering Provider Test Date Status YUN DAWN 10/30/2023 04:01:00 Final Observation Date Value Abnormality Reference (Units ) Status Heparin, unfractionated level 10/30/2023 04:01:00 0.41 Above high normal <0.10 (IU/mL) Final Unfractionated therapeutic r anges for Anti Xa activity:
For Cardiac/Neurologic treatment: 0.3 to 0.6 IU/mL.
For treatment of DVT or Pulmonary Embolism: 0.3 to 0.7 IU/mL. Performing Location LABORATORY [facility] [place] - [address] [facility] [address]
--- OUTSIDE RECORDS SUMMARY | 2023-11-12 22:21 | External Medical Summary ---
Author Name Unknown Address Unknown Organization K01:[facility]ATORY [facility] - [address] [place] [address] Laboratory Report Ordering Provider Test Date Status JACOB JACKSON 10/31/2023 07:05:00 Final Observation Date Value Abnormality Reference (Units ) Status Magnesium 10/31/2023 07:05:00 2.2 1.5-2.6 (m g/dL) Final Performing Location LAB[facility]ATORY [facility] - [address] [place] [address]
--- OUTSIDE RECORDS SUMMARY | 2023-11-12 22:21 | External Medical Summary ---
Author Name Unknown Address Unknown Organization [id number]:[facility]ATORY [facility] [place] - [address] [facility] [address] [address] Laboratory Report Ordering Provider Test Date Status YUN DAWN 10/31/2023 07:05:00 Final Observation Date Value Abnormality Reference (Units ) Status WBC, Total 10/31/2023 07:05:00 6.31 4.00-10.80 (K/uL) Final RBC 10/31/2023 07:05:00 4.98 3.85-5.15 (M/uL) Final Hemoglobin 10/31/2023 07:05:00 15.0 12.0-15.3 (g/dL) Final HCT 10/31/2023 07:05:00 45.9 Above high normal 36.0-45.2 (%) Final MCV 10/31/2023 07:05:00 92.2 81.5-97.5 (fL) Final MCH 10/31/2023 07:05:00 30.1 27.0-34.0 (pg) Final MCHC 10/31/2023 07:05:00 32.7 32.0-36.0 (g/dL) Final RDW 10/31/2023 07:05:00 14.4 11.5-15.5 (%) Final Platelets 10/31/2023 07:05:00 283 140-400 (K/uL) Final MPV 10/31/2023 07:05:00 9.7 6.6-11.1 (fL) Final Nucleated erythrocytes/100 leukocytes [Ratio] in Blood by Automated count 10/31/2023 07:05:00 0 <=0 (/100 WBCs) Final Performing Location [facility] - [address] [facility] [address]
--- OUTSIDE RECORDS SUMMARY | 2023-11-12 22:21 | External Medical Summary ---
Author Name Unknown Address Unknown Organization K01:LABORATORY [facility] [place] - [address] [facility] [place] [address] Laboratory Report Ordering Provider Test Date Status YUN DAWN 11/01/2023 07:01:00 Final Observation Date Value Abnormality Reference (Units ) Status BUN 11/01/2023 07:01:00 12 6-20 (mg/dL) Final Creatinine 11/01/2023 07:01:00 0.6 0.5-1.0 (mg/dL) Final Glomerular filtration rate/1.73 sq M.predicted [Volume Rate/Area] in Serum, Plasma or Blood by Creatinine-based formula (CKD-EPI) 11/01/2023 07:01:00 >90 >=60 (mL/min) Final eGFR is calculated based on the CKD-EPI 2020 equation SODIUM 11/01/2023 07:01:00 138 135-146 (m mol/L) Final Potassium 11/01/2023 07:01:00 4.2 3.5-5.1 (m mol/L) Final Cl 11/01/2023 07:01:00 107 98-107 (mm ol/L) Final CO2 11/01/2023 07:01:00 20 Below low normal 22- 32 (mmol/L) Final Anion gap 11/01/2023 07:01:00 11 7-15 (mmol /L) Final Glucose 11/01/2023 07:01:00 93 70-120 (mg /dL) Final Calcium 11/01/2023 07:01:00 9.8 8.4-10.2 ( mg/dL) Final Performing Location LABORATORY [facility] [place] - [address] [place] [address]
--- OUTSIDE RECORDS SUMMARY | 2023-11-12 22:21 | External Medical Summary ---
Author Name Unknown Address Unknown Organization K01:LAB[facility]ATORY [facility] [place] - [address] [place] [address] Laboratory Report Ordering Provider Test Date Status YUN DAWN 11/01/2023 07:01:00 Final Observation Date Value Abnormality Reference (Units ) Status Heparin, unfractionated level 11/01/2023 07:01:00 0.26 Above high normal <0.10 (IU/mL) Final Unfractionated therapeutic r anges for Anti Xa activity:
For Cardiac/Neurologic treatment: 0.3 to 0.6 IU/mL.
For treatment of DVT or Pulmonary Embolism: 0.3 to 0.7 IU/mL. Performing Location LABORATORY [facility] [place] - [address] [facility] [address]
--- OUTSIDE RECORDS SUMMARY | 2023-11-12 22:21 | External Medical Summary ---
Author Name Unknown Address Unknown Organization K01:[facility] [place] [address] [facility] [address] Laboratory Report Ordering Provider Test Date Status YUN DAWN 11/03/2023 05:48:00 Final Observation Date Value Abnormality Reference (Units ) Status BUN 11/03/2023 05:48:00 14 6-20 (mg/dL) Final Creatinine 11/03/2023 05:48:00 0.8 0.5-1.0 (mg/dL) Final Glomerular filtration rate/1.73 sq M.predicted [Volume Rate/Area] in Serum, Plasma or Blood by Creatinine-based formula (CKD-EPI) 11/03/2023 05:48:00 81 >=60 (mL/min) Final eGFR is calculated based on the CKD-EPI 2020 equation SODIUM 11/03/2023 05:48:00 139 135-146 (m mol/L) Final Potassium 11/03/2023 05:48:00 4.8 3.5-5.1 (m mol/L) Final Cl 11/03/2023 05:48:00 106 98-107 (mm ol/L) Final CO2 11/03/2023 05:48:00 19 Below low normal 22- 32 (mmol/L) Final Anion gap 11/03/2023 05:48:00 14 7-15 (mmol /L) Final Glucose 11/03/2023 05:48:00 99 70-120 (mg /dL) Final Calcium 11/03/2023 05:48:00 9.8 8.4-10.2 ( mg/dL) Final Performing Location [facility] [place] [address] [facility] [address]
--- OUTSIDE RECORDS SUMMARY | 2023-11-12 22:21 | External Medical Summary ---
Author Name Unknown Address Unknown Organization K01:[facility]ORY [facility] - [address] [place] [address] Laboratory Report Ordering Provider Test Date Status MANUELJACOB 11/01/2023 07:01:00 Final Observation Date Value Abnormality Reference (Units ) Status Magnesium 11/01/2023 07:01:00 2.0 1.5-2.6 (m g/dL) Final Performing Location LAB[facility]ATORY [facility] - [address] [place] [address]
--- OUTSIDE RECORDS SUMMARY | 2023-11-12 22:21 | External Medical Summary ---
Author Name Unknown Address Unknown Organization K01:LABORATORY [facility] - [address] [place] [address] Laboratory Report Ordering Provider Test Date Status MANUELJACOB 11/03/2023 05:48:00 Final Observation Date Value Abnormality Reference (Units ) Status Magnesium 11/03/2023 05:48:00 1.9 1.5-2.6 (m g/dL) Final Performing Location [facility] [address] [facility] [address]
--- OUTSIDE RECORDS SUMMARY | 2023-11-12 22:21 | External Medical Summary ---
Author Name Unknown Address Unknown Organization K01:LABORATORY [facility] [place] - [address] [place] [address] Laboratory Report Ordering Provider Test Date Status YUN DAWN 10/30/2023 04:02:00 Final To be drawn [address] dose

Recommended trough therapeutic ranges:
0.5 to 0.8 for heart failure
0.5 to 1.1 for atrial fibrillation Observation Date Value Abnormality Reference (Units ) Status Digoxin 10/30/2023 04:02:00 0.8 0.5-1.1 (n g/mL) Final Performing Location LAB[facility]ATORY [facility] [place] - [address] [place] [address]
--- OUTSIDE RECORDS SUMMARY | 2023-11-12 22:21 | External Medical Summary ---
Author Name Unknown Address Unknown Organization K01:[facility] [place] [address] [facility] [address] Laboratory Report Ordering Provider Test Date Status YUN DAWN 10/31/2023 07:05:00 Final Observation Date Value Abnormality Reference (Units ) Status BUN 10/31/2023 07:05:00 14 6-20 (mg/dL) Final Creatinine 10/31/2023 07:05:00 0.7 0.5-1.0 (mg/dL) Final Glomerular filtration rate/1.73 sq M.predicted [Volume Rate/Area] in Serum, Plasma or Blood by Creatinine-based formula (CKD-EPI) 10/31/2023 07:05:00 88 >=60 (mL/min) Final eGFR is calculated based on the CKD-EPI 2020 equation SODIUM 10/31/2023 07:05:00 139 135-146 (m mol/L) Final Potassium 10/31/2023 07:05:00 4.2 3.5-5.1 (m mol/L) Final Cl 10/31/2023 07:05:00 107 98-107 (mm ol/L) Final CO2 10/31/2023 07:05:00 20 Below low normal 22- 32 (mmol/L) Final Anion gap 10/31/2023 07:05:00 12 7-15 (mmol /L) Final Glucose 10/31/2023 07:05:00 103 70-120 (mg /dL) Final Calcium 10/31/2023 07:05:00 9.8 8.4-10.2 ( mg/dL) Final Performing Location [facility] [place] [address] [place] [address]
--- OUTSIDE RECORDS SUMMARY | 2023-11-12 22:21 | External Medical Summary ---
Author Name Unknown Address Unknown Organization K01:[facility] [place] [address] [facility] [address] [facility] [address] Laboratory Report Ordering Provider Test Date Status BELEMMARYAMCRISTELJamia 10/29/2023 13:53:00 Final Anticoagulation may affect t esting. Refer to [facility] Test Catalog for a list of effects. Observation Date Value Abnormality Reference (Units ) Status aPTT panel - Platelet poor plasma 10/29/2023 13:53:00 29 21-38 (seconds) Final Performing Location [facility] [place] [address] [facility] [address]
--- OUTSIDE RECORDS SUMMARY | 2023-11-12 22:21 | External Medical Summary ---
Author Name Unknown Address Unknown Organization K01:LABORATORY [facility] [place] - Formerly named [facility] [address] [facility] [address] Laboratory Report Ordering Provider Test Date Status YUN DAWN 10/29/2023 13:53:00 Final Observation Date Value Abnormality Reference (Units ) Status WBC, Total 10/29/2023 13:53:00 5.41 4.00-10.80 (K/uL) Final RBC 10/29/2023 13:53:00 5.01 3.85-5.15 (M/uL) Final Hemoglobin 10/29/2023 13:53:00 15.0 12.0-15.3 (g/dL) Final HCT 10/29/2023 13:53:00 45.8 Above high normal 36.0-45.2 (%) Final MCV 10/29/2023 13:53:00 91.4 81.5-97.5 (fL) Final MCH 10/29/2023 13:53:00 29.9 27.0-34.0 (pg) Final MCHC 10/29/2023 13:53:00 32.8 32.0-36.0 (g/dL) Final RDW 10/29/2023 13:53:00 14.4 11.5-15.5 (%) Final Platelets 10/29/2023 13:53:00 225 140-400 (K/uL) Final MPV 10/29/2023 13:53:00 9.9 6.6-11.1 (fL) Final Nucleated erythrocytes/100 leukocytes [Ratio] in Blood by Automated count 10/29/2023 13:53:00 0 <=0 (/100 WBCs) Final Performing Location LABORATORY [facility] [place] - [address] [facility] [address]
--- OUTSIDE RECORDS SUMMARY | 2023-11-12 22:21 | External Medical Summary ---
Author Name Unknown Address Unknown Organization K01:[place] [facility] [place] [address] [address] Laboratory Report Ordering Provider Test Date Status JACOB JACKSON 10/30/2023 04:01:00 Final Warfarin Therapy
INR: 2 .0-3.0 conventional anticoagulation
INR: 2.5- 3.5 high intensity anticoagulation Observation Date Value Abnormality Reference (Units ) Status PT 10/30/2023 04:01:00 14.3 11.6-15.2 (seconds) Final INR 10/30/2023 04:01:00 1.1 0.8-1.2 Final Performing Location [facility] [place] [address] [place] [address]
--- OUTSIDE RECORDS SUMMARY | 2023-11-12 22:21 | External Medical Summary ---
Author Name Unknown Address Unknown Organization K01:LABORATORY [facility] [place] - [address] [facility] [place] [address] Laboratory Report Ordering Provider Test Date Status JACOB JACKSON 10/30/2023 04:02:00 Final Observation Date Value Abnormality Reference (Units ) Status BUN 10/30/2023 04:02:00 27 Above high normal 6-20 (mg/dL) Final Creatinine 10/30/2023 04:02:00 0.9 0.5-1.0 (mg/dL) Final Glomerular filtration rate/1.73 sq M.predicted [Volume Rate/Area] in Serum, Plasma or Blood by Creatinine-based formula (CKD-EPI) 10/30/2023 04:02:00 70 >=60 (mL/min) Final eGFR is calculated based on the CKD-EPI 2020 equation SODIUM 10/30/2023 04:02:00 139 135-146 (m mol/L) Final Potassium 10/30/2023 04:02:00 4.5 3.5-5.1 (m mol/L) Final Cl 10/30/2023 04:02:00 108 Above high normal 98 -107 (mmol/L) Final CO2 10/30/2023 04:02:00 20 Below low normal 22- 32 (mmol/L) Final Anion gap 10/30/2023 04:02:00 11 7-15 (mmol /L) Final Glucose 10/30/2023 04:02:00 103 70-120 (mg /dL) Final Calcium 10/30/2023 04:02:00 9.6 8.4-10.2 ( mg/dL) Final Performing Location LABORATORY [facility] [place] - [address] [place] [address]
--- OUTSIDE RECORDS SUMMARY | 2023-11-12 22:21 | External Medical Summary ---
Author Name Unknown Address Unknown Organization K01:[facility] [place] [address] [address] Laboratory Report Ordering Provider Test Date Status YUN DAWN 11/02/2023 03:28:00 Final Warfarin Therapy
INR: 2 .0-3.0 conventional anticoagulation
INR: 2.5- 3.5 high intensity anticoagulation Observation Date Value Abnormality Reference (Units ) Status PT 11/02/2023 03:28:00 13.9 11.6-15.2 (seconds) Final INR 11/02/2023 03:28:00 1.1 0.8-1.2 Final Performing Location LABORATORY C - [address] [place] [address]
--- OUTSIDE RECORDS SUMMARY | 2023-11-12 22:21 | External Medical Summary ---
Author Name Unknown Address Unknown Organization [id number]:[place] [place] [address] [address] Laboratory Report Ordering Provider Test Date Status YUN DAWN 11/01/2023 07:01:00 Final Warfarin Therapy
INR: 2 .0-3.0 conventional anticoagulation
INR: 2.5- 3.5 high intensity anticoagulation Observation Date Value Abnormality Reference (Units ) Status PT 11/01/2023 07:01:00 14.5 11.6-15.2 (seconds) Final INR 11/01/2023 07:01:00 1.1 0.8-1.2 Final Performing Location LABORATORY C - [address] [address]
--- OUTSIDE RECORDS SUMMARY | 2023-11-12 22:21 | External Medical Summary ---
Author Name Unknown Address Unknown Organization [id number]:LAB[facility]ATORY [facility] [place] - [address] [address] Laboratory Report Ordering Provider Test Date Status YUN DAWN 11/03/2023 05:48:00 Final Warfarin Therapy
INR: 2 .0-3.0 conventional anticoagulation
INR: 2.5- 3.5 high intensity anticoagulation Observation Date Value Abnormality Reference (Units ) Status PT 11/03/2023 05:48:00 14.4 11.6-15.2 (seconds) Final INR 11/03/2023 05:48:00 1.1 0.8-1.2 Final Performing Location LABORATORY C - [address] [address]
--- OUTSIDE RECORDS SUMMARY | 2023-11-12 22:21 | External Medical Summary ---
Author Name Unknown Address Unknown Organization [id number]:[place] [place] [facility] [place] [facility] [place] [address] Laboratory Report Ordering Provider Test Date Status YUN DAWN 11/02/2023 03:28:00 Final Observation Date Value Abnormality Reference (Units ) Status WBC, Total 11/02/2023 03:28:00 7.60 4.00-10.80 (K/uL) Final RBC 11/02/2023 03:28:00 4.58 3.85-5.15 (M/uL) Final Hemoglobin 11/02/2023 03:28:00 13.8 12.0-15.3 (g/dL) Final HCT 11/02/2023 03:28:00 41.5 36.0-45.2 (%) Final MCV 11/02/2023 03:28:00 90.6 81.5-97.5 (fL) Final MCH 11/02/2023 03:28:00 30.1 27.0-34.0 (pg) Final MCHC 11/02/2023 03:28:00 33.3 32.0-36.0 (g/dL) Final RDW 11/02/2023 03:28:00 14.2 11.5-15.5 (%) Final Platelets 11/02/2023 03:28:00 281 140-400 (K/uL) Final MPV 11/02/2023 03:28:00 9.1 6.6-11.1 (fL) Final Nucleated erythrocytes/100 leukocytes [Ratio] in Blood by Automated count 11/02/2023 03:28:00 0 <=0 (/100 WBCs) Final Performing Location [facility] [place] [address] [facility] [address]
--- OUTSIDE RECORDS SUMMARY | 2023-11-12 22:21 | External Medical Summary ---
Author Name Unknown Address Unknown Organization [id number]:[facility] - [address] [place] [address] Laboratory Report Ordering Provider Test Date Status MANUELRAMONE GUEVARAO 11/02/2023 03:28:00 Final Observation Date Value Abnormality Reference (Units ) Status Phosphate 11/02/2023 03:28:00 3.7 2.5-4.8 (m g/dL) Final Performing Location [facility] [address] [facility] [address]
--- OUTSIDE RECORDS SUMMARY | 2023-11-12 22:21 | External Medical Summary ---
Author Name Unknown Address Unknown Organization [id number]:[place] [place] [address] [facility] [address] Laboratory Report Ordering Provider Test Date Status YUN DAWN 11/02/2023 03:28:00 Final Observation Date Value Abnormality Reference (Units ) Status BUN 11/02/2023 03:28:00 12 6-20 (mg/dL) Final Creatinine 11/02/2023 03:28:00 0.6 0.5-1.0 (mg/dL) Final Glomerular filtration rate/1.73 sq M.predicted [Volume Rate/Area] in Serum, Plasma or Blood by Creatinine-based formula (CKD-EPI) 11/02/2023 03:28:00 >90 >=60 (mL/min) Final eGFR is calculated based on the CKD-EPI 2020 equation SODIUM 11/02/2023 03:28:00 140 135-146 (m mol/L) Final Potassium 11/02/2023 03:28:00 4.3 3.5-5.1 (m mol/L) Final Cl 11/02/2023 03:28:00 107 98-107 (mm ol/L) Final CO2 11/02/2023 03:28:00 22 22-32 (mmo l/L) Final Anion gap 11/02/2023 03:28:00 11 7-15 (mmol /L) Final Glucose 11/02/2023 03:28:00 100 70-120 (mg /dL) Final Calcium 11/02/2023 03:28:00 10.1 8.4-10.2 ( mg/dL) Final Performing Location [facility] [place] [address] [facility] [address]
--- OUTSIDE RECORDS SUMMARY | 2023-11-12 22:21 | External Medical Summary ---
Author Name Unknown Address Unknown Organization [id number]:[facility]ATORY [facility] - [address] [place] [address] Laboratory Report Ordering Provider Test Date Status MANUELJACOB 10/30/2023 04:02:00 Final Observation Date Value Abnormality Reference (Units ) Status Phosphate 10/30/2023 04:02:00 3.0 2.5-4.8 (m g/dL) Final Performing Location [facility] - [address] [place] [address]
--- OUTSIDE RECORDS SUMMARY | 2023-11-12 22:21 | External Medical Summary ---
Author Name Unknown Address Unknown Organization [id number]:[place] [facility] [place] [address] [place] [address] Laboratory Report Ordering Provider Test Date Status YUN DAWN 11/01/2023 21:31:00 Final Observation Date Value Abnormality Reference (Units ) Status Heparin, unfractionated level 11/01/2023 21:31:00 0.34 Above high normal <0.10 (IU/mL) Final Unfractionated therapeutic r anges for Anti Xa activity:
For Cardiac/Neurologic treatment: 0.3 to 0.6 IU/mL.
For treatment of DVT or Pulmonary Embolism: 0.3 to 0.7 IU/mL. Per[place] [facility] [place] [address] [facility] [address]
--- OUTSIDE RECORDS SUMMARY | 2023-11-12 22:21 | External Medical Summary ---
Author Name Unknown Address Unknown Organization [id number][place] [facility] [place] [address] [address] Laboratory Report Ordering Provider Test Date Status JACOB JACKSON 10/29/2023 21:46:00 Final Observation Date Value Abnormality Reference (Units ) Status BUN 10/29/2023 21:46:00 32 Above high normal 6-20 (mg/dL) Final Creatinine 10/29/2023 21:46:00 0.8 0.5-1.0 (mg/dL) Final Glomerular filtration rate/1.73 sq M.predicted [Volume Rate/Area] in Serum, Plasma or Blood by Creatinine-based formula (CKD-EPI) 10/29/2023 21:46:00 83 >=60 (mL/min) Final eGFR is calculated based on the CKD-EPI 2020 equation SODIUM 10/29/2023 21:46:00 140 135-146 (m mol/L) Final Potassium 10/29/2023 21:46:00 4.2 3.5-5.1 (m mol/L) Final Cl 10/29/2023 21:46:00 109 Above high normal 98 -107 (mmol/L) Final CO2 10/29/2023 21:46:00 20 Below low normal 22- 32 (mmol/L) Final Anion gap 10/29/2023 21:46:00 11 7-15 (mmol /L) Final Glucose 10/29/2023 21:46:00 107 70-120 (mg /dL) Final Calcium 10/29/2023 21:46:00 9.2 8.4-10.2 ( mg/dL) Final Performing Location [facility] [facility] [place] [address] [place] [address]
--- OUTSIDE RECORDS SUMMARY | 2023-11-12 22:21 | External Medical Summary ---
Author Name Unknown Address Unknown Organization [id number]:[facility] [place] - [address] [place] [address] [place] [address] Laboratory Report Ordering Provider Test Date Status YUN DAWN 10/29/2023 21:46:00 Final Observation Date Value Abnormality Reference (Units ) Status Heparin, unfractionated level 10/29/2023 21:46:00 0.34 Above high normal <0.10 (IU/mL) Final Unfractionated therapeutic r anges for Anti Xa activity:
For Cardiac/Neurologic treatment: 0.3 to 0.6 IU/mL.
For treatment of DVT or Pulmonary Embolism: 0.3 to 0.7 IU/mL. Performing Location [facility] [place] - [address] [facility] [address]
--- OUTSIDE RECORDS SUMMARY | 2023-11-12 22:21 | External Medical Summary ---
Author Name Unknown Address Unknown Organization K01:[facility]ATORY [facility] - [address] [place] [address] Laboratory Report Ordering Provider Test Date Status MANUELJACOB 11/03/2023 05:48:00 Final Observation Date Value Abnormality Reference (Units ) Status Phosphate 11/03/2023 05:48:00 4.0 2.5-4.8 (m g/dL) Final Performing Location [facility] [address] [place] [address]
--- OUTSIDE RECORDS SUMMARY | 2023-11-12 22:21 | External Medical Summary ---
Author Name Unknown Address Unknown Organization K01:LAB[facility]ATORY [facility] - [address] [place] [address] Laboratory Report Ordering Provider Test Date Status MANUELJACOB 10/30/2023 04:02:00 Final Observation Date Value Abnormality Reference (Units ) Status Magnesium 10/30/2023 04:02:00 2.5 1.5-2.6 (m g/dL) Final Performing Location LAB[facility] - [address] [place] [address]
--- OUTSIDE RECORDS SUMMARY | 2023-11-12 22:21 | External Medical Summary ---
Author Name Unknown Address Unknown Organization [id number]:[facility] [place] - [address] [facility] [place] [address] Laboratory Report Ordering Provider Test Date Status YUN DAWN 11/03/2023 08:27:00 Final Observation Date Value Abnormality Reference (Units ) Status Heparin, unfractionated level 11/03/2023 08:27:00 0.42 Above high normal <0.10 (IU/mL) Final Unfractionated therapeutic r anges for Anti Xa activity:
For Cardiac/Neurologic treatment: 0.3 to 0.6 IU/mL.
For treatment of DVT or Pulmonary Embolism: 0.3 to 0.7 IU/mL. Performing Location LAB[facility]ATORY [facility] [place] - [address] [facility] [address]
--- OUTSIDE RECORDS SUMMARY | 2023-11-12 22:21 | External Medical Summary | Summary of Care ---
Author Name Unknown Organization [facility] Address [address] [place] [address] Phone [phone] Care Team Providers Care Jacquard Card Lacer Name Role Phone Lucie Montero DO Primary Care Provider + [phone] Reason for Visit * Auth/Cert Specialty Diagnoses / Procedures Referred By Contac t Referred To Contact Diagnoses Acute on chronic systolic CHF (congestive heart failure) (HCC) CHF Referral ID Status Reason Start Date Expiration Date Visits Re quested Visits Authorized [id number] Encounter Details Date Type Department Care Team (Latest Contact Info) Description 10/21/2023 8:38 PM EST - 11/03/2023 4:49 PM EST Hospital Encounter [facility], [facility] 8th Floor [address] [place] [address] Sue Nesbitt MD [address], [place] Annabel Grimaldo MD [address], [place] Dusty Sanchez MD [address], [place] Alverto Lu MD [address] [place] [address] Troy Garg MD [address] Alverto Oakley MD [address] [facility] [place], [place] [id number] Yanelis Paulino MD [address] [facility] [place], [place] [id number] Evan Lombardo MD [address] [facility] [place] [address] EKG Report Discharge Disposition: AMA Allergies Active Allergy Reactions Criticality Noted Date [...] as of this encounter (statuses as of 11/04/2023) Medications Medication Sig Dispensed Refills Start Date [...] GAIN DIRECTED 180 Tablet 1 04/07/2023 Active Potassium Chloride Jihan ER 10 MEQ Oral [...] as of this encounter (statuses as of 11/04/2023) Active Problems Problem Noted Date Diagnosed Date [...] as of this encounter (statuses as of 11/04/2023) Resolved Problems Problem Noted Date Diagnosed Date [...] as of this encounter (statuses as of 11/04/2023) Immunizations Name Administration Dates Next Due PPD [...] on file documented as of this encounter Last Filed Vital Signs Vital Sign Reading Time Taken Comments Blood Pressure 129/102 11/03/2023 2:53 PM EST Pulse 124 11/03/2023 11:12 AM EST Temperature 37.1 C (98.8 F) 11/03/2023 2:53 PM ES T Respiratory Rate 18 11/03/2023 2:53 PM EST Oxygen Saturation 97% 11/03/2023 2:53 PM EST Inhaled Oxygen Concentration - - Weight 106.1 kg (234 lb) 11/03/2023 6:16 AM EST Height 167.6 cm (5' 5.98") 10/24/2023 4:00 AM ES T Body Mass Index 37.79 10/24/2023 4:00 AM EST documented in this encounter Functional Status Functional Status Response [...] No 10/21/2023 documented as of this encounter Discharge Summaries * Evan Lombardo MD - 11/03/2023 4:24 PM EST [address] [address] Admission Date: 10/21/2023 Discharge Date: 11/03/2023 The patient was upset at having to stay here another day. I called the patient's son early in the morning and explained the plan of care. He was in agreement. I explained my rationale to the patient as well that given new improvement in distention on abdominal x-ray, we will be switching her IV medications to oral medications today. Since she had significant RVR prior to being optimized on IV medications, we will need to monitor her for response to oral medications to ensure that they are beingabsorbed by the gut. She stated that she would like to speak to a fabric worker supervisor regarding optimization of her cardiac medications as she did not trust the medicine service to make these changes. I tiger-texted on-call cardiology and made them aware that the patient is requesting to speak to their team directly. I informed the patient that I had reached out to cardiology. She stated that she will wait to hear from cardiology but she did not feel that she needed to stay in the hospital any longer.I explained to her again that unfortunately I could not safely discharge her today. At around 4.30, I was notified that the patient would like to leave AMA with her son. DISPOSITION ON DISCHARGE: AMA Active Hospital Problems Diagnosis *Principal Diagnosis - Acute on chronic systolic heart failure (HCC) Dilated cardiomyopathy (HCC) Diarrhea Dilatation of colon Ileus, postoperative (HCC) Fever of unknown origin Body mass index (BMI) of 40.0 to 44.9 in adult (HCC) Gout of big toe Atrial fibrillation with rapid ventricular response (HCC) Paroxysmal atrial fibrillation (HCC) Resolved Hospital Problems No resolved problems to display. ADMISSION HISTORY & PHYSICAL EXAM (focused): Ramona Stringer is a 67 year old female with significant history of: Afib s/p atrial ablation on eliquis (which was recently started) HFrEF HTN WILL on CPAP Gout LAYLA Hx of GI hemorrhage Per chart review, patient had initially presented to [facility] with shortness of breath, palpitations and lower extremity edema. Apparently patient was previously on bumex for HF, but was told by her outpatient fabric worker supervisor to discontinue it as she did not require it anymore. After discontinuation, she s tarted to develop progressive symptoms including lower extremity swelling and dyspnea. This was followed by palpitations as well. She was then placed back on bumex, however, her symptoms continued toprogress. Patient was seen in urgent care on 10/20/2023, and was sent to [facility] ED, where she was found to haveafib with RVR for which she received diltiazem 20mg IV and was treated with C HFrEF with IV lasix. At [facility], patient started complaining of Left sided abdominal pain and developed a fever. She had aCT A/P completed which did not show any acute abdominal pathology. Patient was empirically started on CTX and azithromycin for possible CAP. Patient was subsequently transferred to [facility] for further care. Upon my evaluation, patient is acutely ill. She does not complain of chest pain, nausea, emesis, sore throat, dysuria, hematuria or diarrhea. She continues to endorse sharp, LUQ abdominal pain. Lives at home with her son. Ambulates with a cane. Patient would like to be a FULL CODE during this admission. Constitutional: In acute distress Derm: Warm, diaphoretic, intact, no visible rash Head/Neck: Normocephalic, atraumatic, trachea midline EENT: EOMI, no scleral icterus, no discharge Respiratory: CTAB, no wheezing, rales, or rhonchi, equal air movement Cardiovascular: Irregularly irregular, tachycardic, no murmurs, radial pulses intact bilaterally Abdomen: Soft, nontender without rebound/guarding, active bowel sounds Musculoskeletal: Moving all extremities, no obvious deformity, no peripheral pitting edema Neurological: A/O x3 no focal neuro deficit appreciated Psychiatric: Normal mood/affect, normal thought process, normal behavior HOSPITAL COURSE (focused): This is a 67-year-old female with history of atrial fibrillation, HFrEF (EF 20% 10/21/23) , who presented on 10/21/2023 found to be in heart failure exacerbation with AF with RVR and sepsis secondaryto pneumonia. The patient was transferred from the cardiology service to medicine after hospital course complicated by acute pseudo-obstruction. She has refused colonoscopic decompression and has hadminimal response to neostigmine. The patient began to show improvement on 11/03, currently being monitored closely after being resumed on diet and oral medications. Colonic pseudo-obstruction 14 cm (improving) Diarrhea (resolved) Significant colonic distention with poor response to neostigmine. The patient has refused colonoscopic decompression or NG tube decompression. C diff negative, GI pathogen panel negative Despite repetitive counseling by multiple members of the staff and myself, the patient refused NGT placement to attempt decompression as well as colonic decompression. Abdominal x-ray 11/03 with improvement in distention, discussed with the patient. -discontinued all IV medications and started oral medications with plan to repeat abdominal xray tomorrow -low threshold for NPO if any nausea/vomiting/abdominal pain -serial abd exams -ambulation as tolerated -avoid narcotics -PT/OT Afib with RVR (improving) HFrEF (EF 20%) Hypertension Ongoing uncontrolled atrial fibrillation in the setting of colonic distention. -started oral digoxin 125 mcg daily and metoprolol 25 mg XL daily, previously unable to do oral meds because of colonic distention and limited absorption -discontinued heparin gtt and resumed ARCHITECTURAL ADMINISTRATIVE ASSISTANT apixaban -resumed ARCHITECTURAL ADMINISTRATIVE ASSISTANT bumetanide 1 mg daily -hold ARCHITECTURAL ADMINISTRATIVE ASSISTANT hydrochlorothiazide 12.5 mg daily and atenolol 12.5 mg daily Sepsis with suspected lung source (resolved) Acute hypoxic respiratory failure (resolved) Maintaining adequate saturations on RA -Ceftriaxone and Azithromycin completed Chronic medical conditions WILL: continue with BiPAP Muscle spams: hold ARCHITECTURAL ADMINISTRATIVE ASSISTANT baclofen 10 mg twice a day DISCHARGE EXAM CV: normal rate and rhythm Chest: normal respiratory effort, lungs clear to auscultation B/L Abdomen: Mildly distended, no tenderness, normal bowel sounds Neuro: alert Operations & Procedures: none Complications: none significant Significant Lab and Imaging Results: As mentioned above Results Pending at Discharge: Lab Results Pending at Discharge: CBC Routine BASIC METABOLIC PANEL Routine DIGOXIN LEVEL Routine PT INR Routine MAGNESIUM Routine PHOSPHORUS Routine MEDICATION UPDATES AT DISCHARGE CONTINUE taking these medications but follow up with your Primary Care Physician (PCP). INSTRUCTIONS Allopurinol 300 MG Tablet Commonly known as: Zyloprim Take 1 Tablet by mouth in the morning. Ascorbic Acid 1000 MG Tabs Take by mouth. Atenolol 25 MG Tablet Commonly known as: Tenormin Take 0.5-1 Tablets by mouth in the morning. 0.5 tablet daily, takes 1 mg if BP elevated and heart rate elevated, usually takes 0.5 tablet. Baclofen 10 MG Tablet Commonly known as: Lioresal TAKE 1 TAB BY MOUTH 2 TIMES A DAY NEEDED FOR CRAMPING OR MUSCLE SPASMS. BiPAP every night at bedtime. Bumetanide 1 MG Tablet Commonly known as: Bumex TAKE 1 TAB BY MOUTH IN THE MORNING. TAKE ONE EXTRA TAB DAILY NEEDED FOR WEIGHT GAIN DIRECTED Cholecalciferol 25 MCG (1000 UT) Capsule Take by mouth. Eliquis 5 MG Tablet Generic drug: Apixaban Take 1 Tablet by mouth in the morning and 1 Tablet before bedtime. hydroCHLOROthiazide 12.5 MG Capsule Commonly known as: Hydrodiuril Take 1 Capsule by mouth in the morning. HYDROcodone-Acetaminophen 7.5-325 MG per tablet Take 1 Tablet by mouth every 8 hours as needed for Pain, Breakthrough or Pain, Severe. montelukast 10 MG Tablet Commonly known as: Singulair TAKE 1 TABLET BY MOUTH EVERY DAY IN THE MORNING Multivitamin Adult Extra C Chew Take by mouth . potassium chloride ER 10 MEQ Tbcr Commonly known as: Klor-Con M10 TAKE 2 TABLETS BY MOUTH EVERY DAY zinc 50 MG Tablet Take 1 Tablet by mouth daily. SCHEDULED FOLLOW-UP: Future Appointments Appt Date/Time Provider Department 11/13/2023 9:45 AM Maggie Melendez DO Cardiology, [facility] 12/10/2023 2:20 PM Lucie Montero DO Family Practice [address] [place] [address] 12/24/2023 2:00 PM [place], Nurse Annual Wellness Visit [facility] 65 [facility] 09/30/2024 2:30 PM Femi Bal DO Otolaryngology [facility] Other Information Indwelling Devices: LINES ALL Duration Peripheral Line Left Hand 22 Gauge 13 days Peripheral Line Left;Lower Arm 22 Gauge 4 days Vital Signs (last recorded): Most Recent Systolic BP: 129 mmHg (11/03/23 1453) Most Recent Diastolic BP: 102 mmHg (11/03/23 1453) Pulse: 124 (11/03/23 1112) Resp: 18 (11/03/23 1453) Most Recent Temperature: 37.11 C (11/03/23 1453) Weight: 106.1 kg (234 lb) (11/03/23 0616) SpO2: 97 % (11/03/23 1453) O2 flow rate: 0 L/MIN (11/03/23 1453) Allergies: Lisinopril, Sudafed [pseudoephedrine], Beta adrenergic blockers, Citalopram, Digoxin, Dulcolax [bisacodyl], Iodinated contrast media, Losartan, Metoprolol, and Sotalol Activity: as tolerated Diet: cardiac diet Code status (this admission): Full Code Discussion of adv directives occurred with - adult: Patient Does patient have living will: No Does patient have health care power of civil attorney: No Condition on Discharge: stable Isolation status: None Cognition: normal HOSPITAL CONSULTS ORDERED: GASTROENTEROLOGY CONSULT IP ADULT PHYSICAL THERAPY CONSULT IP ADULT OCCUPATIONAL THERAPY CONSULT IP ADULT PHYSICAL THERAPY CONSULT IP ADULT OCCUPATIONAL THERAPY CONSULT IP CARDIOLOGY CONSULT IP REFERRING PHYSICIAN: Ref: OSCAR RAMIREZ[[id number]] [address] [facility] [place], [place] [id number] (office) [phone] (fax) PRIMARY CARE PROVIDER: PCP: Lucie Montero DO [address] [facility] [address] (office) [phone] (fax) Note: To contact a physician responsible for this patients hospital care, please call [facility] [phone]. I spent a total of 60 minutes coordinating, documenting, and providing care for this patient excluding time spent in the performance of separately billed services. documented in this encounter Progress Notes * Evan Lombardo MD - 11/03/2023 1:10 PM EST Images from the original note were not included. [facility] H853/A INTERVAL HISTORY: The patient denies all complaints including nausea/vomiting, abdominal pain, abdominal discomfort, and diarrhea. She is upset at having to stay here another day. I explained my rationale to both the patient and the son. Given new improvement in distention on abdominal x-ray, switching her IV medications to oralmedications today and will need to monitor her for response to ensure that the medications are being absorbed by the gut. Objective Physical Exam Most Recent Vital Signs: BP: 126 mmHg/106 mmHg (11/03/23 1121) Pulse: 124 (11/03/23 1112) Temp: 37.11 C (11/03/23 112) Resp: 18 (11/03/23 112) SpO2: 96 % (11/03/23 112) CV: normal rate and rhythm Chest: normal respiratory effort, lungs clear to auscultation B/L Abdomen: Mildly distended, no tenderness, normal bowel sounds Neuro: alert, oriented to person, place, and time Peripheral Line Left;Lower Arm 22 Gauge (Active) Number of days: 5 Assessment and Plan This is a 67-year-old female with history of atrial fibrillation, HFrEF (EF 20% 10/21/23) , who presented on 10/21/2023 found to be in heart failure exacerbation with AF with RVR and sepsis secondaryto pneumonia. The patient was transferred from the cardiology service to medicine after hospital course complicated by acute pseudo-obstruction. She has refused colonoscopic decompression and has hadminimal response to neostigmine. The patient began to show improvement on 11/03, currently being monitored closely after being resumed on diet and oral medications. Colonic pseudo-obstruction 14 cm (improving) Diarrhea (resolved) Significant colonic distention with poor response to neostigmine. The patient has refused colonoscopic decompression or NG tube decompression. C diff negative, GI pathogen panel negative Despite repetitive counseling by multiple members of the staff and myself, the patient refused NGT placement to attempt decompression as well as colonic decompression. Abdominal x-ray 11/03 with improvement in distention, discussed with the patient. Plan: -discontinued all IV medications and started oral medications -low threshold for NPO if any nausea/vomiting/abdominal pain -serial abd exams -ambulation as tolerated -avoid narcotics -PT/OT Afib with RVR (improving) HFrEF (EF 20%) Hypertension Ongoing uncontrolled atrial fibrillation in the setting of colonic distention. -started oral digoxin 125 mcg daily and metoprolol 25 mg XL daily, previously unable to do oral meds because of colonic distention and limited absorption -discontinued heparin gtt and resumed ARCHITECTURAL ADMINISTRATIVE ASSISTANT apixaban -resumed ARCHITECTURAL ADMINISTRATIVE ASSISTANT bumetanide 1 mg daily -hold ARCHITECTURAL ADMINISTRATIVE ASSISTANT hydrochlorothiazide 12.5 mg daily and atenolol 12.5 mg daily Sepsis with suspected lung source (resolved) Acute hypoxic respiratory failure (resolved) Maintaining adequate saturations on RA -Ceftriaxone and Azithromycin completed Chronic medical conditions WILL: continue with BiPAP Muscle spams: hold ARCHITECTURAL ADMINISTRATIVE ASSISTANT baclofen 10 mg twice a day VTE prophylaxis: Apixaban Diet: Resumed diet Code status: Full Updated son 11/03/22, answered all questions, he agrees with the current plan of care * Evan Lombardo MD - 11/02/2023 1:16 PM EST Images from the original note were not included. [facility] H853/A INTERVAL HISTORY: The patient reports improvement in nausea. She states that she would like to eat something solid. Objective Physical Exam Most Recent Vital Signs: BP: 120 mmHg/77 mmHg (11/02/23 1028) Pulse: 118 (11/02/23 1028) Temp: 36.89 C (11/02/23 1028) Resp: 18 (11/02/23 1028) SpO2: 96 % (11/02/23 1028) CV: normal rate and rhythm Chest: normal respiratory effort, lungs clear to auscultation B/L Abdomen: Mildly distended, no tenderness, normal bowel sounds Neuro: alert, oriented to person, place, and time Peripheral Line Left;Lower Arm 22 Gauge (Active) Number of days: 4 Assessment and Plan This is a 67-year-old female with history of atrial fibrillation, HFrEF (EF 20% 10/21/23) , who presented on 10/21/2023 found to be in heart failure exacerbation with AF with RVR and sepsis secondaryto pneumonia. The patient was transferred from the cardiology service to medicine after hospital course complicated by acute pseudo-obstruction. She has refused colonoscopic decompression and has hadminimal response to neostigmine, currently being monitored closely with ongoing RVR, pending improvement. Colonic pseudo-obstruction (cecum 14>12.5 cm) Diarrhea Nausea Significant colonic distention with poor response to neostigmine. The patient has refused colonoscopic decompression or NG tube decompression. C diff negative, GI pathogen panel negative Despite repetitive counseling by multiple members of the staff and myself, the patient has continued to refuse care, medications and interventions. She has also continued to refuse NGT placement to attempt decompression. Over the last few days, she has not had any significant improvement on imaging. I discussed this in detail with the patient's son and the patient. I readdressed the patient's code status with her as well, and although she continues to refuse potentially life-saving interventions, she states that she wishes to be Full Code. Abdominal x-ray 11/01 with some improvement in distention, discussed with the patient, she wants to trial regular diet.. Plan: -started soft diet, will repeat XR abd tomorrow to assess -low threshold for NPO if any nausea/vomiting/abdominal pain -the patient has refused NG tube placement -serial abd exams -ambulation as tolerated -avoid narcotics -PT/OT Afib with RVR (improving) HFrEF (EF 20%) Ongoing uncontrolled atrial fibrillation in the setting of colonic distention. -continue digoxin -increased IV metoprolol Q6H to 10 mg per cardiology -unable to do oral meds because of colonic distention and limited absorption -holding ARCHITECTURAL ADMINISTRATIVE ASSISTANT apixaban, heparin gtt for now -holding ARCHITECTURAL ADMINISTRATIVE ASSISTANT bumetanide 1 mg daily Hypokalemia 2/2 diarrhea (resolved) Oral repletion has not been effective and the patient has been resistant to IV repletion due to burning. -Monitor K and replete as able Sepsis with suspected lung source (resolved) Acute hypoxic respiratory failure (resolved) Maintaining adequate saturations on RA -Ceftriaxone and Azithromycin completed Chronic medical conditions WILL: continue with BiPAP Hypertension: hold ARCHITECTURAL ADMINISTRATIVE ASSISTANT hydrochlorothiazide 12.5 mg daily and atenolol 12.5 mg daily Muscle spams: hold ARCHITECTURAL ADMINISTRATIVE ASSISTANT baclofen 10 mg twice a day VTE prophylaxis: Heparin GTT Diet: Liquid diet Code status: Full Updated son 10/30/22 * Evan Lombardo MD - 11/01/2023 8:38 AM EST Images from the original note were not included. [facility] H853/A INTERVAL HISTORY: The patient reports improvement in nausea. She states that she would like to eat something solid. I discussed that at this time we cannot advance her diet unless her imaging shows significant improvement. Objective Physical Exam Most Recent Vital Signs: BP: 123 mmHg/72 mmHg (11/01/23751) Pulse: 115 (11/01/23751) Temp: 36.83 C (11/01/23751) Resp: 18 (11/01/23751) SpO2: 98 % (11/01/23751) CV: normal rate and rhythm Chest: normal respiratory effort, lungs clear to auscultation B/L Abdomen: Mildly distended, no tenderness, normal bowel sounds Neuro: alert, oriented to person, place, and time Peripheral Line Left;Lower Arm 22 Gauge (Active) Number of days: 3 Assessment and Plan This is a 67-year-old female with history of atrial fibrillation, HFrEF (EF 20% 10/21/23) , who presented on 10/21/2023 found to be in heart failure exacerbation with AF with RVR and sepsis secondaryto pneumonia. The patient was transferred from the cardiology service to medicine after hospital course complicated by acute pseudo-obstruction. She has refused colonoscopic decompression and has hadminimal response to neostigmine, currently being monitored closely with ongoing RVR, pending improvement. Colonic pseudo-obstruction (cecum 14>12.5 cm) Diarrhea Nausea Significant colonic distention with poor response to neostigmine. The patient has refused colonoscopic decompression or NG tube decompression. C diff negative, GI pathogen panel negative Despite repetitive counseling by multiple members of the staff and myself, the patient has continued to refuse care, medications and interventions. She has also continued to refuse NGT placement to attempt decompression. Over the last few days, she has not had any significant improvement on imaging. I discussed this in detail with the patient's son and the patient. I readdressed the patient's code status with her as well, and although she continues to refuse potentially life-saving interventions, she states that she wishes to be Full Code. Abdominal x-ray 10/30 with no significant improvement and ongoing distention. Plan: -XR abdomen ordered to assess for improvement -reverted to clear liquid diet because of ongoing distention, low threshold for NPO if any nausea/vomiting/abdominal pain -the patient has refused NG tube placement -serial abd exams -ambulation as tolerated -avoid narcotics -PT/OT Afib with RVR (improving) HFrEF (EF 20%) Ongoing uncontrolled atrial fibrillation in the setting of colonic distention. -continue digoxin -changed IV metoprolol Q6H scheduled -unable to do oral meds because of colonic distention and limited absorption -holding ARCHITECTURAL ADMINISTRATIVE ASSISTANT apixaban, heparin gtt for now -holding ARCHITECTURAL ADMINISTRATIVE ASSISTANT bumetanide 1 mg daily Hypokalemia 2/2 diarrhea (resolved) Oral repletion has not been effective and the patient has been resistant to IV repletion due to burning. -Monitor K and replete as able Sepsis with suspected lung source (resolved) Acute hypoxic respiratory failure (resolved) Maintaining adequate saturations on RA -Ceftriaxone and Azithromycin completed Chronic medical conditions WILL: continue with BiPAP Hypertension: hold ARCHITECTURAL ADMINISTRATIVE ASSISTANT hydrochlorothiazide 12.5 mg daily and atenolol 12.5 mg daily Muscle spams: hold ARCHITECTURAL ADMINISTRATIVE ASSISTANT baclofen 10 mg twice a day VTE prophylaxis: Heparin GTT Diet: Liquid diet Code status: Full Updated son 10/30/22 * Evan Lombardo MD - 10/31/2023 9:48 AM EST Images from the original note were not included. [facility] H853/A INTERVAL HISTORY: The patient reports improvement in nausea. She states that she would like to eat something solid. I discussed that at this time we cannot advance her diet unless her imaging shows significant improvement. Objective Physical Exam Most Recent Vital Signs: BP: 120 mmHg/76 mmHg (10/31/23850) Pulse: 115 (10/31/23850) Temp: 37.11 C (10/31/23850) Resp: 18 (10/31/23850) SpO2: 97 % (10/31/23850) CV: normal rate and rhythm Chest: normal respiratory effort, lungs clear to auscultation B/L Abdomen: Mildly distended, no tenderness, normal bowel sounds Neuro: alert, oriented to person, place, and time Peripheral Line Left;Lower Arm 22 Gauge (Active) Number of days: 2 Assessment and Plan This is a 67-year-old female with history of atrial fibrillation, HFrEF (EF 20% 10/21/23) , who presented on 10/21/2023 found to be in heart failure exacerbation with AF with RVR and sepsis secondaryto pneumonia. The patient was transferred from the cardiology service to medicine after hospital course complicated by acute pseudo-obstruction. She has refused colonoscopic decompression and has hadminimal response to neostigmine, currently being monitored closely with ongoing RVR, pending improvement. Colonic pseudo-obstruction (cecum 14>12.5 cm) Diarrhea Nausea Significant colonic distention with poor response to neostigmine. The patient has refused colonoscopic decompression or NG tube decompression. C diff negative, GI pathogen panel negative Despite repetitive counseling by multiple members of the staff and myself, the patient has continued to refuse care, medications and interventions. She has also continued to refuse NGT placement to attempt decompression. Over the last few days, she has not had any significant improvement on imaging. I discussed this in detail with the patient's son and the patient. I readdressed the patient's code status with her as well, and although she continues to refuse potentially life-saving interventions, she states that she wishes to be Full Code. Abdominal x-ray 10/30 with no significant improvement and ongoing distention. Plan: -reverted to clear liquid diet because of ongoing distention, low threshold for NPO if any nausea/vomiting/abdominal pain -the patient has refused NG tube placement -serial abd exams -ambulation as tolerated -avoid narcotics -PT/OT HFrEF (EF 20%) Afib with RVR Ongoing uncontrolled atrial fibrillation in the setting of colonic distention. -continue digoxin -changed IV metoprolol Q6H scheduled -unable to do oral meds because of colonic distention and limited absorption -holding ARCHITECTURAL ADMINISTRATIVE ASSISTANT apixaban, heparin gtt for now -holding ARCHITECTURAL ADMINISTRATIVE ASSISTANT bumetanide 1 mg daily Hypokalemia 2/2 diarrhea (resolved) Oral repletion has not been effective and the patient has been resistant to IV repletion due to burning. -Monitor K and replete as able Sepsis with suspected lung source (resolved) Acute hypoxic respiratory failure (resolved) Maintaining adequate saturations on RA -Ceftriaxone and Azithromycin completed Chronic medical conditions WILL: continue with BiPAP Hypertension: hold ARCHITECTURAL ADMINISTRATIVE ASSISTANT hydrochlorothiazide 12.5 mg daily and atenolol 12.5 mg daily Muscle spams: hold ARCHITECTURAL ADMINISTRATIVE ASSISTANT baclofen 10 mg twice a day VTE prophylaxis: Heparin GTT Diet: Liquid diet Code status: Full Updated son 10/30/22 * Evan Lombardo MD - 10/30/2023 8:32 AM EST Images from the original note were not included. [facility] H853/A INTERVAL HISTORY: The patient reports improvement in nausea. She states that she would like to eat something solid. I discussed that at this time we cannot advance her diet unless her imaging shows significant improvement. Objective Physical Exam Most Recent Vital Signs: BP: 114 mmHg/97 mmHg (10/30/23722) Pulse: 144 (10/30/23722) Temp: 36.89 C (10/30/23299) Resp: 20 (10/30/23299) SpO2: 99 % (10/30/23299) CV: normal rate and rhythm Chest: normal respiratory effort, lungs clear to auscultation B/L Abdomen: Mildly distended, no tenderness, normal bowel sounds Neuro: alert, oriented to person, place, and time Peripheral Line Left;Lower Arm 22 Gauge (Active) Number of days: 1 Assessment and Plan This is a 67-year-old female with history of atrial fibrillation, HFrEF (EF 20% 10/21/23) , who presented on 10/21/2023 found to be in heart failure exacerbation with AF with RVR and sepsis secondaryto pneumonia. The patient was transferred from the cardiology service to medicine after hospital course complicated by acute pseudo-obstruction. She has refused colonoscopic decompression and has hadminimal response to neostigmine, currently being monitored closely with ongoing RVR, pending improvement. Colonic pseudo-obstruction (cecum 14>12.5 cm) Diarrhea Nausea Significant colonic distention with poor response to neostigmine. The patient has refused colonoscopic decompression or NG tube decompression. C diff negative, GI pathogen panel negative Despite repetitive counseling by multiple members of the staff and myself, the patient has continued to refuse care, medications and interventions. She has also continued to refuse NGT placement to attempt decompression. Over the last few days, she has not had any significant improvement on imaging. I discussed this in detail with the patient's son and the patient. I readdressed the patient's code status with her as well, and although she continues to refuse potentially life-saving interventions, she states that she wishes to be Full Code. Abdominal x-ray 10/30 with no significant improvement and ongoing distention. Plan: -reverted to clear liquid diet because of ongoing distention -the patient has refused NG tube placement -serial abd exams -ambulation as tolerated -avoid narcotics -PT/OT HFrEF (EF 20%) Afib with RVR Ongoing uncontrolled atrial fibrillation in the setting of colonic distention. -continue digoxin -changed IV metoprolol Q6H scheduled -unable to do oral meds because of colonic distention and limited absorption -holding ARCHITECTURAL ADMINISTRATIVE ASSISTANT apixaban, heparin gtt for now -holding ARCHITECTURAL ADMINISTRATIVE ASSISTANT bumetanide 1 mg daily Hypokalemia 2/2 diarrhea (resolved) Oral repletion has not been effective and the patient has been resistant to IV repletion due to burning. -Monitor K and replete as able Sepsis with suspected lung source (resolved) Acute hypoxic respiratory failure (resolved) Maintaining adequate saturations on RA -Ceftriaxone and Azithromycin completed Chronic medical conditions WILL: continue with BiPAP Hypertension: hold ARCHITECTURAL ADMINISTRATIVE ASSISTANT hydrochlorothiazide 12.5 mg daily and atenolol 12.5 mg daily Muscle spams: hold ARCHITECTURAL ADMINISTRATIVE ASSISTANT baclofen 10 mg twice a day VTE prophylaxis: Heparin GTT Diet: Liquid diet Code status: Full Updated son 10/30/22 * Evan Lombardo MD - 10/29/2023 1:28 PM EST Images from the original note were not included. [facility] H853/A INTERVAL HISTORY: The patient reports improvement in nausea. She states that she would like to eat something solid. Objective Physical Exam Most Recent Vital Signs: BP: 100 mmHg/71 mmHg (10/29/23 1127) Pulse: 80 (10/29/23 1127) Temp: 37.22 C (10/29/23 0600) Resp: 20 (10/29/23 1127) SpO2: 95 % (10/29/23 1127) CV: normal rate and rhythm Chest: normal respiratory effort, lungs clear to auscultation B/L Abdomen: Mildly distended, no tenderness, normal bowel sounds Neuro: alert, oriented to person, place, and time Peripheral Line Right;Lower;Anterior Arm 20 Gauge (Active) Number of days: 8 Peripheral Line Anterior;Left Hand (Active) Number of days: 4 Assessment and Plan This is a 67-year-old female with history of atrial fibrillation, HFrEF (EF 20% 10/21/23) , who presented on 10/21/2023 found to be in heart failure exacerbation and sepsis secondary to pneumonia. Hospital course complicated by acute pseudo-obstruction with minimal response to IV neostigmine however the patient has refused colonoscopy decompression, pending improvement. Colonic pseudo-obstruction (cecum 14>12.5 cm) Diarrhea Nausea Significant colonic distention with poor response to neostigmine. The patient has refused colonoscopy sick decompression or NG tube decompression. C diff negative, GI pathogen panel negative Despite repetitive counseling by multiple members of the staff and myself, the patient has continued to refuse care, medications and interventions. Abdominal x-ray 1/3 with minimal improvement from 14-12.5 cm Plan: -advancing diet -continue conservative measures -the patient has refused NG tube placement -serial abd exams -ambulation as tolerated -avoid narcotics -PT/OT Hypokalemia 2/2 diarrhea Oral repletion has not been effective and the patient has been resistant to IV repletion due to burning. -Monitor K and replete as able HFrEF (EF 20%) Afib with RVR Ongoing uncontrolled atrial fibrillation in the setting of colonic distention. -initiated digoxin -changed IV metoprolol to p.r.n. for HR >120 -unable to do oral meds because of colonic distention and limited absorption -holding ARCHITECTURAL ADMINISTRATIVE ASSISTANT apixaban, heparin gtt for now -holding ARCHITECTURAL ADMINISTRATIVE ASSISTANT bumetanide 1 mg daily Sepsis with suspected lung source (resolved) Acute hypoxic respiratory failure (resolved) Maintaining adequate saturations on RA -Ceftriaxone and Azithromycin completed Chronic medical conditions WILL: continue with BiPAP Hypertension: hold ARCHITECTURAL ADMINISTRATIVE ASSISTANT hydrochlorothiazide 12.5 mg daily and atenolol 12.5 mg daily Muscle spams: hold ARCHITECTURAL ADMINISTRATIVE ASSISTANT baclofen 10 mg twice a day VTE prophylaxis: Heparin GTT Diet: Soft diet Code status: Full * Evan Lombardo MD Shivani - 10/28/2023 3:42 PM EST Images from the original note were not included. [facility] H853/A INTERVAL HISTORY: The patient reports improvement in nausea. She states that she would like to eat something solid. Objective Physical Exam Most Recent Vital Signs: BP: 102 mmHg/83 mmHg (10/28/23 1513) Pulse: 82 (10/28/23 1117) Temp: 37 C (10/28/23 1510) Resp: 18 (10/28/23 151) SpO2: 96 % (10/28/23 151) CV: normal rate and rhythm Chest: normal respiratory effort, lungs clear to auscultation B/L Abdomen: Mildly distended, no tenderness, normal bowel sounds Neuro: alert, oriented to person, place, and time Peripheral Line Right;Lower;Anterior Arm 20 Gauge (Active) Number of days: 7 Peripheral Line Anterior;Left Hand (Active) Number of days: 3 Assessment and Plan This is a 67-year-old female with history of atrial fibrillation, HFrEF (EF 20% 10/21/23) , who presented on 10/21/2023 found to be in heart failure exacerbation and sepsis secondary to pneumonia. Hospital course complicated by acute pseudo-obstruction with minimal response to IV neostigmine however the patient has refused colonoscopy decompression, pending improvement. Colonic pseudo-obstruction (cecum 14 cm) Diarrhea Nausea Abdominal x-ray with diffuse colonic dilation on 10/27/2023 but does appear slightly improved. C diff negative, GI pathogen panel negative Plan: -advancing diet -continue conservative measures -the patient has refused NG tube placement -serial abd exams -ambulation as tolerated -avoid narcotics -PT/OT HFrEF (EF 20%) Afib with RVR -Cardiology following -Metoprolol IV for rate control, will avoid oral meds for now -Holding diuretics now including ARCHITECTURAL ADMINISTRATIVE ASSISTANT Bumex -Continuing on heparin ggt, holding Eliquis Sepsis with suspected lung source (resolved) Acute hypoxic respiratory failure (resolved) Maintaining adequate saturations on RA -Ceftriaxone and Azithromycin completed Chronic medical conditions WILL: continue with BiPAP HTN: hold ARCHITECTURAL ADMINISTRATIVE ASSISTANT hydrodiuril and atenolol Muscle spams: hold ARCHITECTURAL ADMINISTRATIVE ASSISTANT baclofen VTE prophylaxis: Heparin GTT Diet: Soft diet Code status: Full * Harleen Cee MD - 10/27/2023 8:04 AM EST PROGRESS NOTE - Gastroenterology Service [facility] [id number] Name: Ramona Stringer [place] [facility] Date: 10/27/2023 Time: 8:04 AM SUBJECTIVE: The patient was seen and examined, chart reviewed. Angry because she is being starved Wants to have something to drink States her abdomen is fine ROS: All other systems reviewed and negative except as above. OBJECTIVE: Vital Signs Last 24 Hours: Systolic BP: Most Recent Systolic BP Av.9 mmHg Min: 91 mmHg Max: 130 mmHg Temperature: Most Recent Temperature Av.1 C Min: 35.89 C Max: 36.61 C Pulse: Pulse Av.2 Min: 101 Max: 151 Respirations: Resp Av.8 Min: 17 Max: 22 SpO2: SpO2 Av.8 % Min: 92 % Max: 100 % General: No acute distress, sitting comfortably in bed Chest: normal respiratory effort CV: Non tachycardic Abd: +distended Neuro: alert, oriented LABS: Labs reviewed IMAGING: Reviewed IMPRESSION: Patient is a 67 Y O F with history of AFib and HFrEF (EF 20% TTE 10/21/23) who is admitted for sepsis 2/to pneumonia and heart failure exacerbation. Hospitalization was complicated by acute pseudo-obstruction with some response to IV neostigmine but subsequently noted to be distended with cecum dilated to 14 cm. She was offered colonoscopy with decompression yesterday however she refused. She remains distended today and I discussed with her again the risk v benefit of not proceedingwith colonoscopy and she again refused. RECOMMENDATIONS: - continue conservative measures - consider NGT decompression - serial abd exams and KUB - ambulation as tolerated - avoid narcotics - Thank you for the consult. GI will sign off. Please TT if patient is agreeable to endoscopic procedures I have discussed the case with my attending, Dr Garcia . Associated attestation - Carl Garcia DO - 10/27/2023 3:11 PM EST I saw and evaluated the patient today. I have reviewed the trainee note and agree. Update: Re-evaluated pt this afternoon. Abd is soft, but hyperresonance to percussion. multiple BMsper pt, no abd pain. Cecum diameter decreasing on this morning's KUB 14 --> 12 cm. Discussed case with pt and her son as well as daughter in law in the room this afternoon. Explained to the pt andfamily the risks of delayed colonic decompression to specifically include colonic perforation requiring surgery or even resulting in . After a detailed discussion the pt would like to still defer endoscopic decompression. Daily KUB for now. Continue ambulating at least QID. Rest as below. * Dusty Sanchez MD - 10/27/2023 6:48 AM EST PROGRESS NOTE - Cardiology [facility] [id number] Name: Ramona Stringer Location: [facility]A Date: 10/27/2023 Time: 6:48 AM Date of admission: 10/21/2023 Hospital length of stay: 6 days Subjective Summary: Ramona Stringer is a 67 year old female with significant history of Afib s/p atrial ablation 2015 on eliquis (which was recently started, patient does not take), HFrEF, HTN, WILL on CPAP, gout, LAYLA, Hx of GI bleed presented with sepsis with suspected lung source, newly diagnosed CHFrEF (EF 20%), afib with RVR. PMH: Patient was seen in urgent care on 10/20/2023, and was sent to [facility], where she was found tohave afib with RVR for which she received diltiazem 20mg IV and was treated with AoC HFrEF with IV lasix. At [facility], patient started complaining of left sided abdominal pain and developed a fever. She had a CT A/P completed which did not show any acute abdominal pathology. Patient was empirically started on CTX and azithromycin for possible CAP. Patient was subsequently transferred to [facility] [place]. Overnight Events: No acute events overnight. 7 BM yesterday. Subjective: Patient seen and examined at bedside. Patient denies SOB, chest pain, significant abdominal pain, dysuria, joint pain, muscle pain and weakness. Endorses generalized weakness which has been going on since admission but with improvement. Endorses dizziness when moving around. Objective CONSTITUTIONAL DATA / OBJECTIVE: Vital Signs (Most Recent): Blood Pressure: 126/90 mmHg Last 12H: Most Recent Systolic BP Av mmHg Min: 91 mmHg Max: 127 mmHg Pulse: 150 Last 12H: Pulse Av.2 Min: 120 Max: 151 Temperature: 35.9 C (96.6 F) Last 12H: Most Recent Temperature Av.9 C Min: 35.89 C Max: 36 C Respiratory Rate: 22 O2 Saturation: 95 % Vital Signs (Last 24 Hours): Pulse Av.3 Min: 101 Max: 151 No data recorded Most Recent Systolic BP Av.9 mmHg Min: 91 mmHg Max: 127 mmHg Most Recent Diastolic BP Av.4 mmHg Min: 43 mmHg Max: 93 mmHg Resp Av.3 Min: 15 Max: 22 Most Recent Temperature Av.2 C Min: 35.89 C Max: 36.72 C SpO2 Av.9 % Min: 92 % Max: 100 % Intake & Output Summary (Last 24 hours): Intake/Output Summary (Last 24 hours) at 10/27/2023 0648 Last data filed at 10/27/2023 0500 Gross per 24 hour Intake 1271.19 ml Output -- Net 1271.19 ml Net IO Since Admission: 188.84 mL [10/22/23 0645] Height & Weight: Height: 167.6 cm (5' 5.98") (10/24/23 0400) Weight: 101.9 kg (224 lb 10.4 oz) (10/27/23 0400) Weight change: 1.3 kg (2 lb 13.9 oz) Body mass index is 36.28 kg/m. Physical Examination: General: Pleasant, in no acute distress HEENT: Atraumatic, normocephalic, non-icteric sclera, moist mucous membranes Neurologic: Alert and oriented but tired, no focal deficits, following commands, appropriate responses to questions, CN grossly intact, power equal and normal in UL and LL bilaterally Neck: No JVD, no submental, submandibular, or cervical lymphadenopathy CVS: Irregular rhythm, normal S1 and S2, no murmurs, rubs, or gallops Respiratory: Normal effort, breath sounds normal and equal bilaterally, no crackles, no rales Abdominal: Soft, mildly distended, nontender, no peritoneal signs, normal bowel sounds Extremities: No edema, peripheral pulses are regular and equal Skin: Warm, dry, intact Peripheral Line Right;Lower;Anterior Arm 20 Gauge (Active) Number of days: 6 Peripheral Line Anterior;Left Hand (Active) Number of days: 2 Laboratory Values: reviewed. -- Brief labs below include the 7 most recent results over the past week. No results in the last 7 days - inpatent use only Lab results within last 7 days (see chart for full results) Units 10/27/23 0514 10/26/23 1533 10/26/23 0437 10/25/23 1548 10/25/23 0502 10/24/23 0544 10/23/23 0647 10/22/23 0530 10/21/23 2340 10/21/23 0538 Sodium mmol/L 136 136 135 134* 135 135 136 < > 134* 140 Potassium mmol/L 3.8 3.8 4.2 3.7 3.3* 3.0* 3.6 < > 3.9 3.6 Chloride mmol/L 102 102 102 100 99 97* 98 < > 97* 100 CO2 mmol/L 15* 18* 17* 17* 19* 20* 26 < > 23 27 BUN mg/dL 62* 60* 58* 48* 43* 36* 27* < > 18 16 Creatinine mg/dL 1.4* 1.4* 1.6* 1.7* 1.4* 1.5* 1.2* < > 0.9 0.7 Estimated Glomerular Filtration Rate mL/min 41* 41* 35* 33* 41* 39* 49* < > 67 90 Glucose mg/dL 109 105 111 116 111 107 115 < > 124* 110 Calcium mg/dL 9.5 9.2 9.7 9.4 10.0 9.6 9.1 < > 9.5 9.6 Magnesium mg/dL 3.2* -- 3.2* -- 3.1* 2.8* 2.5 -- 2.4 2.2 Phosphorus mg/dL 5.1* -- 5.7* -- 5.1* 5.8* 4.3 -- 3.6 3.8 Anion Gap mmol/L 19* 16* 16* 17* 17* 18* 12 < > 14 13 < > = values in this interval not displayed. Lab results within last 7 days (see chart for full results) Units 10/27/23 0514 10/26/23 0437 10/25/23 0502 10/24/23 0544 10/23/23 0647 10/22/23 0530 10/21/23 2340 WBC K/uL 5.02 4.91 4.87 7.45 7.30 9.67 10.59 HGB g/dL 15.5* 15.9* 15.7* 15.1 14.9 14.1 15.2 HCT % 46.9* 49.2* 49.9* 47.3* 45.1 44.2 46.0* PLT K/uL 233 254 230 228 228 195 223 MCV fL 88.8 91.8 92.9 92.2 92.0 93.1 92.0 Lab results within last 7 days (see chart for full results) Units 10/21/23 0538 10/20/23 2322 10/20/23 1906 10/20/23 1711 Troponin T, High Sensitivity ng/L 42* 45* 41* 38* BNP, NT-Pro pg/mL -- -- -- 4,473* Lab results within last 7 days (see chart for full results) Units 10/27/23 0514 10/26/23 0438 10/25/23 0502 10/24/23 0544 10/23/23 0647 10/22/23 2320 10/22/23 1404 10/22/23 0530 10/21/23 2340 Prothrombin Time seconds 14.0 13.8 14.0 14.3 14.8 -- -- 15.5* 15.2 INR 1.1 1.0 1.1 1.1 1.1 -- -- 1.2 1.2 aPTT seconds 78* 82* 93* 81* 73* 73* 58* 36 24 Heparin, Unfractionated IU/mL -- -- -- -- -- -- -- -- 0.81* Lab results within last 7 days (see chart for full results) Units 10/21/23 2340 10/21/23 0538 Albumin g/dL 4.2 -- Protein g/dL 7.6 -- Bilirubin, Total mg/dL 1.3* -- AST U/L 38* -- ALT U/L 23 -- Alkaline Phosphatase U/L 92 -- Triglycerides mg/dL -- 106 Lab results within last 7 days (see chart for full results) Units 10/22/23 1444 10/21/23 2340 Lactate mmol/L 1.1 1.8 Cultures: reviewed. Lab results within last 7 days (see chart for full results) Units 10/21/23 2255 10/20/23 1752 Coronavirus SARS-CoV-2 by PCR Negative Negative Recent Cultures (2 Weeks) 10/21/2023 10/21/2023 10/21/2023 02/04/2023 03/05/2016 02/12/2015 10:55 PM 3:01 PM 2:57 PM 12:46 PM 11:38 AM 12:40 PM SPECIMEN DESCRIPTION -- -- -- -- CLEAN CATCH URINE NASAL CULTURE -- -- -- -- MULTIPLE BETTY SUGGESTS CONTAMINATION OR COLONIZATION -- BLOOD CULTURE GROWTH -- No growth No growth -- -- -- QUANT URINE CULTURE GROWTH No significant growth -- -- No significant growth -- -- Radiographic Studies: reviewed. XR ABDOMEN 1 VIEW Result Date: 10/26/2023 IMPRESSION Unchanged gaseous distension of the cecum measuring 14.7 cm suggesting [place] syndrome.I have personally reviewed this examination and agree with the resident/fellow physician's interpretation. XR ABDOMEN 1 VIEW Result Date: 10/26/2023 IMPRESSION Similar gaseous dilation of large bowel. XR CHEST 1 VIEW Result Date: 10/25/2023 IMPRESSION Mild atelectasis or scarring left lung base. XR ABDOMEN 1 VIEW Result Date: 10/25/2023 IMPRESSION As above. XR ABDOMEN 1 VIEW Result Date: 10/24/2023 IMPRESSION Persistent ileus. US RENAL Result Date: 10/24/2023 IMPRESSION No hydronephrosis. Most recent echocardiogram 10/21/2023: The qualitative LV ejection fraction is 20-24% (severely reduced). The left ventricular cavity is severely dilated (LVED volume >80 ml/m^2). There is diffuse hypokinesis. The right ventricular cavity is mildly dilated. The right ventricular systolic function is mildly reduced Moderate secondary mitral regurgitation is present. Mild aortic valve regurgitation is present. The aortic root and proximal ascending aorta are mildly enlarged. Dilated IVC with reduced collapsability with sniff indicates an elevated right atrial pressure of 15mmHg. Moderate pulmonary hypertension is present. Current Facility-Administered Medications: isolyte 500 mL bolus infusion, 500 mL, Intravenous, Once, Owen Fontanez MD Metoprolol Tartrate (Lopressor) inj 5 mg, 5 mg, IV Push, Q4H, Owen Fontanez MD, 5 mg at 10/27/23 0410 atropine sulfate inj 1 mg, 1 mg, IV Push, Once PRN, Gurdeep Banuelos DO Glycopyrrolate (Robinul) inj 0.2 mg, 0.2 mg, Intravenous, Once PRN, Gurdeep Banuelos DO Benzonatate (Tessalon Perles) cap 100 mg, 100 mg, Oral, Q6H PRN, Kim Leonardo MD, 100 mg at 10/23/23 2311 Acetaminophen (Tylenol) tab 975 mg, 975 mg, Oral, Q4H PRN, Kim Leonardo MD, 975 mg at 10/24/23 0315 hEParin 1000 UNIT/ML inj 1,200 Units, 15 Units/kg (Adjusted), IV Push, PRN, Kim Leonardo MD, 1,200 Units at 10/22/23 1643 hEParin 1000 UNIT/ML inj 2,400 Units, 30 Units/kg (Adjusted), IV Push, PRNMalissa Abuzar, MD, 2,400 Units at 10/22/23 0722 hEParin 25,000 units in 250 mL (aPTT-Cardiac) infusion, 0-30 Units/kg/hr (Adjusted), Intravenous, Titrate, Kim Leonardo MD, Last Rate: 13.53 mL/hr at 10/27/23 0632, 17 Units/kg/hr at 10/27/23 0632 oxygen GAS, , Inhalation, Oxygen, Kim Leonardo MD, Oxygen On at 10/26/23 0000 Assessment & Plan Assessment and Plan: Ramona Stringer is a 67 year old female with significant history of Afib s/p atrial ablation 2015 on eliquis (which was recently started, patient does not take), HFrEF, HTN, WILL on CPAP, gout, LAYLA, Hx of GI bleed presented with sepsis with suspected lung source, newly diagnosed CHFrEF (EF 20%), afib with RVR. Sepsis with suspected lung source (resolved) Acute hypoxic respiratory failure (resolved) Patient looks euvolemic-hypovolemic on exam. - Ceftriaxone, azithromycin finished - IV 500 ml (hypovolemic on exam, had multiple bowel movements, OLGA likely prerenal, hemoconcentration and weight loss) - On room air Ileus (improved) Colonic pseudo-obstruction, megacolon - Had multiple bowel movements - Caecum is distended on X-ray, will repeat X-ray at 1200. - GI follows, discussed with patient decompressive colonoscopy which patient deferred. NG tube was declined by the patient earlier too despite explained risks of perforation. - Keep NPO - PT/OT HFrEF (EF 20%) Afib with RVR - Metoprolol 5 mg IV Q4H for rate control, rate likely driven by hypovolemia - Will consider digoxin for better control if no improvement (digoxin is on allergy list but patient does not recall any allergic side effects and reports just some mental disturbances she had when was hospitalized last time and digoxin was given) - Hold diuretics now including ARCHITECTURAL ADMINISTRATIVE ASSISTANT Bumex - Heparin gtt, hold Eliquis Chronic problems: WILL - BPAP at night and with naps HTN - hold ARCHITECTURAL ADMINISTRATIVE ASSISTANT Hydrodiuril (patient reports that is not taking), hold atenolol Gout - hold ARCHITECTURAL ADMINISTRATIVE ASSISTANT allopurinol (patient reports that is not taking) Muscle spasms - hold ARCHITECTURAL ADMINISTRATIVE ASSISTANT PRN Baclofen LINES / DRAINS / TUBES: LINES ALL Duration Peripheral Line Left Hand 22 Gauge 6 days Peripheral Line Right;Lower;Anterior Arm 20 Gauge 5 days Peripheral Line Anterior;Left Hand 1 day List of services consulted/following: GASTROENTEROLOGY CONSULT IP Patient was discussed with Employment Case Manager and attending physician, DUSTY SANCHEZ IM PGY-1 I saw and evaluated the patient today. I have reviewed the trainee note and agree. Patient admitted to the hospital with constellation of symptoms including shortness of breath with features of consistent with infection. Given the patient was found to be in atrial fibrillation withfeatures suggestive of LV systolic dysfunction patient was transferred to the cardiology service. Patient ventricular response has been fast in a 120-150 beats per minute. LV ejection fraction is found to be around 20%. In the initial part the patient was suspected to be hypoxic with sepsis. The source of infection was cons suspected to be lung parenchyma and the patient was treated antibiotics. Over the course of her illness the patient continued to experience abdominal discomfort which progressively got worst. KUB show features consistent with ileus. Patient was kept NPO. Subsequently it appears that the patient's cecum was dilated to around 13 cm or larger. Patient GI pathology has been managed by Gastroenterology. Gastroenterology has discussed the management plan with the patient and has recommended to undergo colonoscopic evaluation and placement of the tube for decompression. This morning the patient was very sleepy she has not use her CPAP machine last night apparently and it has been difficult to discuss the case with her. Yesterday the patient was quite upset about number of health issues including diarrhea motion 6 to 7 times after being given neostigmine. The rationale behind neostigmine was discussed with the patient. At the time it was discussed with the patient GI tract need to be decompressed to avoid spontaneous perforation that is a much difficult complicated in L disease than current nuisance of distention and diarrhea. I believe the patient will be best served in medicine. Patient ventricular response from AFib will resolve in settle down once the patient overall a stress of GI pathology is resolved both physicallyand psychologically. I will attempt to transfer the patient to medicine service who have a better understanding of patient GI pathology. Despite patient repeated diarrhea GI upset as well as AFib with rapid ventricular response patient has no features of cardiac decompensation. Dusty Sanchez MD 10/27/2023 1:39 PM * Rhona Monroy MD - 10/26/2023 10:52 AM EST PROGRESS NOTE - Gastroenterology [place] [facility] [address] Name: Ramona Stringer SUBJECTIVE: Patient received neostigmine last night. She reports a massive watery bowel movements after the medication. She reports that her abdomen feels much better. ROS: Negative unless otherwise stated above. OBJECTIVE: Vital Signs Last 24 Hours: Systolic BP: Most Recent Systolic BP Av.7 mmHg Min: 78 mmHg Max: 124 mmHg Temperature: Most Recent Temperature Av.7 C Min: 36.5 C Max: 36.72 C Pulse: Pulse Av.9 Min: 114 Max: 156 Respirations: Resp Av.1 Min: 15 Max: 37 SpO2: SpO2 Av % Min: 91 % Max: 100 % Constitutional: NAD. A&Ox3. CV: no tachycardia or bradycardia Chest: no accessory muscle use in room air GI: Soft, not distended, no tenderness Extremities: No edema. Neurology: Moves all extremities. LABS: Reviewed in [facility]. IMAGING: Reviewed in [facility]. ASSESSMENT: 67-year-old female with history of atrial fibrillation, and HFrEF (LVEF 30%) who was admitted for sepsis related to pneumonia and heart failure exacerbation. Patient developed colonic distention without mechanical obstruction consistent with acute colonic pseudo-obstruction. KUB yesterday showed cecum diameter measuring 13.6 cm. She was given IV neostigmine once with subsequent large bowel movement and improvement in abdominal exam. However the repeat KUB showed that the cecum remained dilated around 14 cm today RECOMMENDATIONS: Keep patient NPO. Repeat KUB at noon. Will consider colonoscopy for decompression today if patient colon remains dilated. I have discussed the case with my attending, Dr. Wong. Rhona Monroy MD Gastroenterology and Hepatology Fellow [facility] Associated attestation - Renetta Wong MD - 10/26/2023 5:20 PM EST I saw and evaluated the patient today. I have reviewed the trainee note and agree. 67-year-old female with history of atrial fibrillation, and HFrEF (LVEF 30%) presented with sepsis.Later developed ileus. Pt currently feeling well with softer abdominal and BM, despite distention on KUB. Offered colonoscopic decompression, but pt declined after being informed of risks and benefits of procedure. * Dusty Sanchez MD - 10/26/2023 7:14 AM EST PROGRESS NOTE - Cardiology [facility] [address] Name: Ramona Stringer [place] [facility] [place] [id number] Date: 10/26/2023 Time: 7:14 AM Date of admission: 10/21/2023 Hospital length of stay: 5 days Subjective Summary: Ramona Stringer is a 67 year old female with significant history of Afib s/p atrial ablation 2015 on eliquis (which was recently started, patient does not take), HFrEF, HTN, WILL on CPAP, gout, LAYLA, Hx of GI bleed presented with sepsis with suspected lung source, newly diagnosed CHFrEF (EF 20%), afib with RVR. PMH: Patient was seen in urgent care on 10/20/2023, and was sent to [facility], where she was found tohave afib with RVR for which she received diltiazem 20mg IV and was treated with AoC HFrEF with IV lasix. At [facility], patient started complaining of left sided abdominal pain and developed a fever. She had a CT A/P completed which did not show any acute abdominal pathology. Patient was empirically started on CTX and azithromycin for possible CAP. Patient was subsequently transferred [place] [facility] [place]. Overnight Events: No acute events overnight. KUB yesterday showed severe caecum distention and per GI recs neostigmine was given once at 20:12. 2 liquid bowel movements were documented since. Had vomiting after too. Subjective: Patient seen and examined at bedside. Patient denies SOB, chest pain, significant abdominal pain, dysuria, joint pain, muscle pain and weakness. Objective CONSTITUTIONAL DATA / OBJECTIVE: Vital Signs (Most Recent): Blood Pressure: 110/87 mmHg Last 12H: Most Recent Systolic BP Av.3 mmHg Min: 90 mmHg Max: 121 mmHg Pulse: 153 Last 12H: Pulse Av.9 Min: 114 Max: 153 Temperature: 36.7 C (98.1 F) Last 12H: Most Recent Temperature Av.6 C Min: 36.5 C Max: 36.72 C Respiratory Rate: 17 O2 Saturation: 96 % Vital Signs (Last 24 Hours): Pulse Av.7 Min: 114 Max: 164 No data recorded Most Recent Systolic BP Av.1 mmHg Min: 78 mmHg Max: 124 mmHg Most Recent Diastolic BP Av mmHg Min: 58 mmHg Max: 99 mmHg Resp Av.1 Min: 17 Max: 37 Most Recent Temperature Av.6 C Min: 36.5 C Max: 36.72 C SpO2 Av.9 % Min: 91 % Max: 99 % Intake & Output Summary (Last 24 hours): Intake/Output Summary (Last 24 hours) at 10/26/2023 0714 Last data filed at 10/26/2023 0600 Gross per 24 hour Intake 1621.19 ml Output -- Net 1621.19 ml Net IO Since Admission: 188.84 mL [10/22/23 0645] Height & Weight: Height: 167.6 cm (5' 5.98") (10/24/23 040) Weight: 106.9 kg (235 lb 10.8 oz) (10/24/23399) Weight change: Body mass index is 38.06 kg/m. Physical Examination: General: In no acute distress HEENT: Atraumatic, normocephalic, non-icteric sclera, moist mucous membranes Neurologic: Alert and oriented but tired, no focal deficits, following commands, appropriate responses to questions, CN grossly intact, power equal and normal in UL and LL bilaterally Neck: No JVD, no submental, submandibular, or cervical lymphadenopathy CVS: Irregular rhythm, normal S1 and S2, no murmurs, rubs, or gallops Respiratory: Normal effort, breath sounds normal and equal bilaterally, no crackles, no rales Abdominal: Soft, mildly distended, nontender, no peritoneal signs, normal bowel sounds Extremities: No edema, peripheral pulses are regular and equal Skin: Warm, dry, intact Peripheral Line Right (Active) Number of days: 5 Peripheral Line Right;Lower;Anterior Arm 20 Gauge (Active) Number of days: 5 Peripheral Line Anterior;Left Hand (Active) Number of days: 1 Laboratory Values: reviewed. -- Brief labs below include the 7 most recent results over the past week. No results in the last 7 days - inpatent use only Lab results within last 7 days (see chart for full results) Units 10/26/23 0437 10/25/23 1548 10/25/23 0502 10/24/23 0544 10/23/23 0647 10/22/23 0530 10/21/23 2340 10/21/23 0538 10/20/23 1711 Sodium mmol/L 135 134* 135 135 136 137 134* 140 139 Potassium mmol/L 4.2 3.7 3.3* 3.0* 3.6 3.6 3.9 3.6 3.6 Chloride mmol/L 102 100 99 97* 98 99 97* 100 99 CO2 mmol/L 17* 17* 19* 20* 26 BUN mg/dL 58* 48* 43* 36* 27* 19 18 16 16 Creatinine mg/dL 1.6* 1.7* 1.4* 1.5* 1.2* 0.9 0.9 0.7 0.7 Estimated Glomerular Filtration Rate mL/min 35* 33* 41* 39* 49* 70 67 90 >90 Glucose mg/dL 111 116 111 107 115 114 124* 110 122* Calcium mg/dL 9.7 9.4 10.0 9.6 9.1 9.1 9.5 9.6 9.5 Magnesium mg/dL 3.2* -- 3.1* 2.8* 2.5 -- 2.4 2.2 2.0 Phosphorus mg/dL 5.7* -- 5.1* 5.8* 4.3 -- 3.6 3.8 3.8 Anion Gap mmol/L 16* 17* 17* 18* 12 15 14 13 16* Lab results within last 7 days (see chart for full results) Units 10/26/23 0437 10/25/23 0502 10/24/23 0544 10/23/23 0647 10/22/23 0530 10/21/23 2340 10/21/23 0538 WBC K/uL 4.91 4.87 7.45 7.30 9.67 10.59 9.56 HGB g/dL 15.9* 15.7* 15.1 14.9 14.1 15.2 14.2 HCT % 49.2* 49.9* 47.3* 45.1 44.2 46.0* 42.5 PLT K/uL 254 230 228 228 195 223 225 MCV fL 91.8 92.9 92.2 92.0 93.1 92.0 90.4 Lab results within last 7 days (see chart for full results) Units 10/21/23 0538 10/20/23 2322 10/20/23 1906 10/20/23 1711 Troponin T, High Sensitivity ng/L 42* 45* 41* 38* BNP, NT-Pro pg/mL -- -- -- 4,473* Lab results within last 7 days (see chart for full results) Units 10/26/23 0438 10/25/23 0502 10/24/23 0544 10/23/23 0647 10/22/23 2320 10/22/23 1404 10/22/23 0530 10/21/23 2340 10/21/23 2340 10/21/23 0538 Prothrombin Time seconds 13.8 14.0 14.3 14.8 -- -- 15.5* -- 15.2 16.0* INR 1.0 1.1 1.1 1.1 -- -- 1.2 -- 1.2 1.3* aPTT seconds 82* 93* 81* 73* 73* 58* 36 < > 24 -- Heparin, Unfractionated IU/mL -- -- -- -- -- -- -- -- 0.81* -- < > = values in this interval not displayed. Lab results within last 7 days (see chart for full results) Units 10/21/23 2340 10/21/23 0538 Albumin g/dL 4.2 -- Protein g/dL 7.6 -- Bilirubin, Total mg/dL 1.3* -- AST U/L 38* -- ALT U/L 23 -- Alkaline Phosphatase U/L 92 -- Triglycerides mg/dL -- 106 Lab results within last 7 days (see chart for full results) Units 10/22/23 1444 10/21/23 2340 Lactate mmol/L 1.1 1.8 Cultures: reviewed. Lab results within last 7 days (see chart for full results) Units 10/21/23 2255 10/20/23 1752 Coronavirus SARS-CoV-2 by PCR Negative Negative Recent Cultures (2 Weeks) 10/21/2023 10/21/2023 10/21/2023 02/04/2023 03/05/2016 02/12/2015 10:55 PM 3:01 PM 2:57 PM 12:46 PM 11:38 AM 12:40 PM SPECIMEN DESCRIPTION -- -- -- -- CLEAN CATCH URINE NASAL CULTURE -- -- -- -- MULTIPLE BETTY SUGGESTS CONTAMINATION OR COLONIZATION -- BLOOD CULTURE GROWTH -- No growth to date No growth to date -- -- -- QUANT URINE CULTURE GROWTH No significant growth -- -- No significant growth -- -- Radiographic Studies: reviewed. XR CHEST 1 VIEW Result Date: 10/25/2023 IMPRESSION Mild atelectasis or scarring left lung base. XR ABDOMEN 1 VIEW Result Date: 10/25/2023 IMPRESSION As above. XR ABDOMEN 1 VIEW Result Date: 10/24/2023 IMPRESSION Persistent ileus. US RENAL Result Date: 10/24/2023 IMPRESSION No hydronephrosis. NM HEPATOBILIARY SYSTEM Result Date: 10/23/2023 IMPRESSION Patent cystic and common bile ducts; no scintigraphic evidence of acute cholecystitis. Ihave personally reviewed this examination and agree with the resident/fellow physician's interpretation. XR ABDOMEN 1 VIEW Result Date: 10/23/2023 IMPRESSION Diffuse ileus bowel gas pattern unchanged. Most recent echocardiogram 10/21/2023: The qualitative LV ejection fraction is 20-24% (severely reduced). The left ventricular cavity is severely dilated (LVED volume >80 ml/m^2). There is diffuse hypokinesis. The right ventricular cavity is mildly dilated. The right ventricular systolic function is mildly reduced Moderate secondary mitral regurgitation is present. Mild aortic valve regurgitation is present. The aortic root and proximal ascending aorta are mildly enlarged. Dilated IVC with reduced collapsability with sniff indicates an elevated right atrial pressure of 15mmHg. Moderate pulmonary hypertension is present. Current Facility-Administered Medications: atropine sulfate inj 1 mg, 1 mg, IV Push, Once PRN, Gurdeep Banueloszabeth, DO Glycopyrrolate (Robinul) inj 0.2 mg, 0.2 mg, Intravenous, Once PRN, AtaskGurdeep mas Ronda, DO Metoprolol Tartrate (Lopressor) inj 5 mg, 5 mg, IV Push, Q6H, Yuliet Guzman MD, 5 mg at 645 Azithromycin (Zithromax) tab 500 mg, 500 mg, Oral, Daily(AM), Giovanny Merchant MD, 500 mg at 10/25/23 0818 cefTRIAXone in dextrose (Rocephin) IVPB 1 g, 1 g, IV Piggyback, Q24H, Giovanny Merchant MD, Last Rate: 100 mL/hr at 10/25/23 1242, 1 g at 10/25/23 1242 Benzonatate (Tessalon Perles) cap 100 mg, 100 mg, Oral, Q6H PRN, Kim Leonardo MD, 100 mg at 10/23/23 2311 Acetaminophen (Tylenol) tab 975 mg, 975 mg, Oral, Q4H PRN, Kim Leonardo MD, 975 mg at 10/24/23 0315 hEParin 1000 UNIT/ML inj 1,200 Units, 15 Units/kg (Adjusted), IV Push, PRN, Kim Leonardo MD, 1,200 Units at 10/22/23 1643 hEParin 1000 UNIT/ML inj 2,400 Units, 30 Units/kg (Adjusted), IV Push, PRN, Kim Leonardo MD, 2,400 Units at 10/22/23 0722 hEParin 25,000 units in 250 mL (aPTT-Cardiac) infusion, 0-30 Units/kg/hr (Adjusted), Intravenous, Titrate, Kim Leonardo MD, Last Rate: 13.53 mL/hr at 10/26/23 0545, 17 Units/kg/hr at 10/26/23 0545 oxygen GAS, , Inhalation, Oxygen, Kim Leonardo MD, Oxygen On at 10/26/23 0000 Assessment & Plan Assessment and Plan: Ramona Stringer is a 67 year old female with significant history of Afib s/p atrial ablation 2015 on eliquis (which was recently started, patient does not take), HFrEF, HTN, WILL on CPAP, gout, LAYLA, Hx of GI bleed presented with sepsis with suspected lung source, newly diagnosed CHFrEF (EF 20%), afib with RVR. Sepsis with suspected lung source (resolved) Acute hypoxic respiratory failure (resolved) Patient looks euvolemic-hypovolemic on exam. - Continue ceftriaxone, azithromycin for additional day, will consider to stop today. - IV 500 ml (hypovolemic on exam, had multiple bowel movements, OLGA likely prerenal) - On room air Ileus (improved) Colonic pseudo-obstruction, megacolon - Had multiple bowel movements, 2 of which after neostigmine - Caecum is distended on X-ray without improvement comparing to yesterday afternoon, colonic decompression is considered. - GI follows, will do KUB at noon. HFrEF (EF 20%) Afib with RVR - Metoprolol 5 mg IV Q4H for rate control - Will consider digoxin for better control if no improvement (digoxin is on allergy list but patient does not recall any allergic side effects and reports just some mental disturbances she had when was hospitalized last time and digoxin was given) - Hold diuretics now including ARCHITECTURAL ADMINISTRATIVE ASSISTANT Bumex - Heparin gtt, hold Eliquis Chronic problems: WILL - BPAP at night and with naps HTN - hold ARCHITECTURAL ADMINISTRATIVE ASSISTANT Hydrodiuril (patient reports that is not taking), hold atenolol Gout - hold ARCHITECTURAL ADMINISTRATIVE ASSISTANT allopurinol (patient reports that is not taking) Muscle spasms - hold ARCHITECTURAL ADMINISTRATIVE ASSISTANT PRN Baclofen LINES / DRAINS / TUBES: LINES ALL Duration Peripheral Line Left Hand 22 Gauge 5 days Peripheral Line Right 4 days Peripheral Line Right;Lower;Anterior Arm 20 Gauge 4 days Peripheral Line Anterior;Left Hand <1 day List of services consulted/following: GASTROENTEROLOGY CONSULT IP Patient was discussed with Employment Case Manager and attending physician, DUSTY SANCHEZ, MARGARET PGY-1 I saw and evaluated the patient today. I have reviewed the trainee note and agree. Patient admitted to the hospital with constellation of issues including features consistent with infection which was empirically treated. Patient was started on empirical antibiotics as an outpatientas well. Patient was known to have atrial fibrillation for quite some time was found to have rapid ventricular response and therefore the patient was transferred to cardiology service from an outside hospital. Patient however has abdominal discomfort diarrhea and on imaging study shows distended bowels consistent with ileus this has progressed to massive sacral dilatation of approximately 13 cm, when spontaneous perforation is possible. Patient is also known to have LV systolic dysfunction. Despite the patient remained in atrial fibrillation with rapid ventricular response and LV ejection fraction of 20% patient has no evidence of cardiac decompensation despite considerable stress in terms of repeated diarrhea, NPO with progressive deterioration of abdominal pathology. Multiple attempts were made to transfer the patient appropriately to medicine service without success. The rationale behind is the patient has predominantly gastric pathology and should be managed bycompetent physician used to managing such issues. Will try to move the patient to medicine service again for optimal care of the patient. Patient need to be in service that can promptly response to patient needs. Gastroenterology has been on board following the patient as well. * Rhona Monroy MD - 10/25/2023 6:53 PM EST PROGRESS NOTE - Gastroenterology Service [facility] [address] Name: Ramona Stringer SUBJECTIVE: GI was called back for worsening cecum distention found on repeat KUB. It measured 13 cm today. Patient reports some generalized abdominal discomfort. Denied nausea, vomiting. She is on a diet today. She reports 2-3 watery bowel movements today. ROS: Negative unless otherwise stated above. OBJECTIVE: Vital Signs Last 24 Hours: Systolic BP: Most Recent Systolic BP Av.3 mmHg Min: 78 mmHg Max: 124 mmHg Temperature: Most Recent Temperature Av.8 C Min: 36.61 C Max: 37.06 C Pulse: Pulse Av.5 Min: 122 Max: 164 Respirations: Resp Av.5 Min: 15 Max: 33 SpO2: SpO2 Av.2 % Min: 91 % Max: 99 % Constitutional: NAD. A&Ox3. CV: no tachycardia or bradycardia Chest: no accessory muscle use in room air GI: Soft, mildly distended Extremities: No edema. Neurology: Moves all extremities. LABS: Reviewed in [facility]. IMAGING: Reviewed in [facility]. ASSESSMENT: 67-year-old female with history of atrial fibrillation, and HFrEF (LVEF 30%) who was admitted for sepsis related to pneumonia and heart failure exacerbation. Patient developed colonic distention without mechanical obstruction consistent with acute colonic pseudo-obstruction. KUB today showed cecum diameter measuring 13.6 cm, which is associated with high risk of perforation and ischemia. RECOMMENDATIONS: Please make patient NPO. Ideally patient will need NG tube for decompression. However, patient reports h/o nasal surgeries and had bleeding from recent NG tube placement attempt. Recommend neostigmine if okay from cardiac standpoint. Dose: 2 mg IV bolus over 3-5 minutes, can give second dose if no response or partial response. Please ensure continuous monitoring of cardiac rhythm and respiratory status. We will need immediate access to atropine and glycopyrrolate in the event of bradycardia and bronchospasm. Please obtain KUB early childhood educator aide tomorrow. Will consider colonoscopy for decompression if patient has persistent dilated colon. I have discussed the case with my attending, Dr. Wong. Rhona Monroy MD Gastroenterology and Hepatology Fellow [facility] Associated attestation - Renetta Wong MD - 10/25/2023 8:15 PM EST I saw and evaluated the patient today. I have reviewed the trainee note and agree. Pt with ileus and colonic dilation to 13cm. Can consider neostigmine administration under close hemodynamic monitoring. If no improvement on KUB, consider colonic decompression. Make NPO. * Dusty Sanchez MD - 10/25/2023 7:33 AM EST PROGRESS NOTE - Cardiology [facility] [address] Name: Ramona Stringer Location[place] [facility] [id number] Date: 10/25/2023 Time: 7:33 AM Date of admission: 10/21/2023 Hospital length of stay: 4 days Subjective Summary: Ramona Stringer is a 67 year old female with significant history of Afib s/p atrial ablation 2015 on eliquis (which was recently started, patient does not take), HFrEF, HTN, WILL on CPAP, gout, LAYLA, Hx of GI bleed presented with sepsis with suspected lung source, newly diagnosed CHFrEF (EF 20%), afib with RVR. PMH: Patient was seen in urgent care on 10/20/2023, and was sent to [facility], where she was found tohave afib with RVR for which she received diltiazem 20mg IV and was treated with AoC HFrEF with IV lasix. At [facility], patient started complaining of left sided abdominal pain and developed a fever. She had a CT A/P completed which did not show any acute abdominal pathology. Patient was empirically started on CTX and azithromycin for possible CAP. Patient was subsequently transferred to [facility] [place] care. Overnight Events: No acute events overnight. Subjective: Patient seen and examined at bedside. Blood pressure is in high 80s/60s. Reports that is feeling week. Abdominal pain has improved. Reports mild diffuse discomfort. IV bolus 500 cc IV was given with improvement of BP. Patient denies SOB, chest pain, significant abdominal pain, dysuria, joint pain, muscle pain and weakness. Objective CONSTITUTIONAL DATA / OBJECTIVE: Vital Signs (Most Recent): Blood Pressure: 105/76 mmHg Last 12H: Most Recent Systolic BP Av mmHg Min: 92 mmHg Max: 120 mmHg Pulse: 144 Last 12H: Pulse Av.7 Min: 125 Max: 150 Temperature: 36.9 C (98.4 F) Last 12H: Most Recent Temperature Av C Min: 36.89 C Max: 37.06 C Respiratory Rate: 29 O2 Saturation: 96 % Vital Signs (Last 24 Hours): Pulse Av.9 Min: 122 Max: 152 No data recorded Most Recent Systolic BP Av mmHg Min: 92 mmHg Max: 120 mmHg Most Recent Diastolic BP Av.9 mmHg Min: 53 mmHg Max: 99 mmHg Resp Av.5 Min: 15 Max: 33 Most Recent Temperature Av C Min: 36.78 C Max: 37.11 C SpO2 Av % Min: 93 % Max: 99 % Intake & Output Summary (Last 24 hours): Intake/Output Summary (Last 24 hours) at 10/25/2023 0733 Last data filed at 10/25/2023 0700 Gross per 24 hour Intake 1689.72 ml Output -- Net 1689.72 ml Net IO Since Admission: 188.84 mL [10/22/23 0645] Height & Weight: Height: 167.6 cm (5' 5.98") (10/24/23399) Weight: 106.9 kg (235 lb 10.8 oz) (10/24/23399) Weight change: Body mass index is 38.06 kg/m. Physical Examination: General: Pleasant, in no acute distress HEENT: Atraumatic, normocephalic, non-icteric sclera, moist mucous membranes Neurologic: Alert and oriented but tired, no focal deficits, following commands, appropriate responses to questions, CN grossly intact, power equal and normal in UL and LL bilaterally Neck: No JVD, no submental, submandibular, or cervical lymphadenopathy CVS: RRR, normal S1 and S2, no murmurs, rubs, or gallops Respiratory: Normal effort, breath sounds normal and equal bilaterally, no crackles, no rales Abdominal: Soft, mildly distended, nontender, no peritoneal signs, decreased bowel sounds Extremities: No edema, peripheral pulses are regular and equal Skin: Warm, dry, intact Peripheral Line Right (Active) Number of days: 4 Peripheral Line Right;Lower;Anterior Arm 20 Gauge (Active) Number of days: 4 Laboratory Values: reviewed. -- Brief labs below include the 7 most recent results over the past week. No results in the last 7 days - inpatent use only Lab results within last 7 days (see chart for full results) Units 10/25/23 0502 10/24/23 0544 10/23/23 0647 10/22/23 0530 10/21/23 2340 10/21/23 0538 10/20/23 1711 Sodium mmol/L 135 135 136 137 134* 140 139 Potassium mmol/L 3.3* 3.0* 3.6 3.6 3.9 3.6 3.6 Chloride mmol/L 99 97* 98 99 97* 100 99 CO2 mmol/L 19* 20* 26 23 23 27 24 BUN mg/dL 43* 36* 27* 19 18 16 16 Creatinine mg/dL 1.4* 1.5* 1.2* 0.9 0.9 0.7 0.7 Estimated Glomerular Filtration Rate mL/min 41* 39* 49* 70 67 90 >90 Glucose mg/dL 111 107 115 114 124* 110 122* Calcium mg/dL 10.0 9.6 9.1 9.1 9.5 9.6 9.5 Magnesium mg/dL 3.1* 2.8* 2.5 -- 2.4 2.2 2.0 Phosphorus mg/dL 5.1* 5.8* 4.3 -- 3.6 3.8 3.8 Anion Gap mmol/L 17* 18* 12 15 14 13 16* Lab results within last 7 days (see chart for full results) Units 10/25/23 0502 10/24/23 0544 10/23/23 0647 10/22/23 0530 10/21/23 2340 10/21/23 0538 10/20/23 1711 WBC K/uL 4.87 7.45 7.30 9.67 10.59 9.56 12.23* HGB g/dL 15.7* 15.1 14.9 14.1 15.2 14.2 14.5 HCT % 49.9* 47.3* 45.1 44.2 46.0* 42.5 43.3 PLT K/uL 230 228 228 195 223 225 236 MCV fL 92.9 92.2 92.0 93.1 92.0 90.4 90.4 Lab results within last 7 days (see chart for full results) Units 10/21/23 0538 10/20/23 2322 10/20/23 1906 10/20/23 1711 Troponin T, High Sensitivity ng/L 42* 45* 41* 38* BNP, NT-Pro pg/mL -- -- -- 4,473* Lab results within last 7 days (see chart for full results) Units 10/25/23 0502 10/24/23 0544 10/23/23 0647 10/22/23 2320 10/22/23 1404 10/22/23 0530 10/21/23 2340 10/21/23 0538 Prothrombin Time seconds 14.0 14.3 14.8 -- -- 15.5* 15.2 16.0* INR 1.1 1.1 1.1 -- -- 1.2 1.2 1.3* aPTT seconds 93* 81* 73* 73* 58* 36 24 -- Heparin, Unfractionated IU/mL -- -- -- -- -- -- 0.81* -- Lab results within last 7 days (see chart for full results) Units 10/21/23 2340 10/21/23 0538 Albumin g/dL 4.2 -- Protein g/dL 7.6 -- Bilirubin, Total mg/dL 1.3* -- AST U/L 38* -- ALT U/L 23 -- Alkaline Phosphatase U/L 92 -- Triglycerides mg/dL -- 106 Lab results within last 7 days (see chart for full results) Units 10/22/23 1444 10/21/23 2340 Lactate mmol/L 1.1 1.8 Cultures: reviewed. Lab results within last 7 days (see chart for full results) Units 10/21/23 2255 10/20/23 1752 Coronavirus SARS-CoV-2 by PCR Negative Negative Recent Cultures (2 Weeks) 10/21/2023 10/21/2023 10/21/2023 02/04/2023 03/05/2016 02/12/2015 10:55 PM 3:01 PM 2:57 PM 12:46 PM 11:38 AM 12:40 PM SPECIMEN DESCRIPTION -- -- -- -- CLEAN CATCH URINE NASAL CULTURE -- -- -- -- MULTIPLE BETTY SUGGESTS CONTAMINATION OR COLONIZATION -- BLOOD CULTURE GROWTH -- No growth to date No growth to date -- -- -- QUANT URINE CULTURE GROWTH No significant growth -- -- No significant growth -- -- Radiographic Studies: reviewed. XR ABDOMEN 1 VIEW Result Date: 10/24/2023 IMPRESSION Persistent ileus. US RENAL Result Date: 10/24/2023 IMPRESSION No hydronephrosis. NM HEPATOBILIARY SYSTEM Result Date: 10/23/2023 IMPRESSION Patent cystic and common bile ducts; no scintigraphic evidence of acute cholecystitis. Ihave personally reviewed this examination and agree with the resident/fellow physician's interpretation. XR ABDOMEN 1 VIEW Result Date: 10/23/2023 IMPRESSION Diffuse ileus bowel gas pattern unchanged. VASC DUPLEX VENOUS LE BILAT Result Date: 10/22/2023 : Right lower extremity with no evidence of acute deep venous thrombosis. Left lower extremity withno evidence of acute deep venous thrombosis. XR ABDOMEN 1 VIEW Result Date: 10/22/2023 IMPRESSION Diffuse gaseous dilation of the colon and rectum suggesting ileus. Most recent echocardiogram 10/21/2023: The qualitative LV ejection fraction is 20-24% (severely reduced). The left ventricular cavity is severely dilated (LVED volume >80 ml/m^2). There is diffuse hypokinesis. The right ventricular cavity is mildly dilated. The right ventricular systolic function is mildly reduced Moderate secondary mitral regurgitation is present. Mild aortic valve regurgitation is present. The aortic root and proximal ascending aorta are mildly enlarged. Dilated IVC with reduced collapsability with sniff indicates an elevated right atrial pressure of 15mmHg. Moderate pulmonary hypertension is present. Current Facility-Administered Medications: potassium chloride ER tab 40 mEq, 40 mEq, Oral, Now and Q1H, Owen Fontanez MD, 40 mEq at 10/25/23 0609 Azithromycin (Zithromax) tab 500 mg, 500 mg, Oral, Daily(AM), Giovanny Merchant MD, 500 mg at 10/24/23 1238 cefTRIAXone in dextrose (Rocephin) IVPB 1 g, 1 g, IV Piggyback, Q24H, Giovanny Merchant MD, Last Rate: 100 mL/hr at 10/24/23 1238, 1 g at 10/24/23 1238 Polyethylene Glycol 3350 (Miralax) oral powder 17 g, 1 Packet, Oral, Daily(AM), Giovanny Merchant MD Benzonatate (Tessalon Perles) cap 100 mg, 100 mg, Oral, Q6H PRN, Kim Leonardo MD, 100 mg at 10/23/23 2311 Metoprolol Tartrate (Lopressor) inj 5 mg, 5 mg, IV Push, Q4H, Owen Fontanez MD, 5 mg at 10/25/23 0404 Acetaminophen (Tylenol) tab 975 mg, 975 mg, Oral, Q4H PRN, Kim Leonardo MD, 975 mg at 10/24/23 0315 hEParin 1000 UNIT/ML inj 1,200 Units, 15 Units/kg (Adjusted), IV Push, PRN, Kim Leonardo MD, 1,200 Units at 10/22/23 1643 hEParin 1000 UNIT/ML inj 2,400 Units, 30 Units/kg (Adjusted), IV Push, PRN, Kim Leonardo MD, 2,400 Units at 10/22/23 0722 hEParin 25,000 units in 250 mL (aPTT-Cardiac) infusion, 0-30 Units/kg/hr (Adjusted), Intravenous, Titrate, Kim Leonardo MD, Last Rate: 13.53 mL/hr at 10/25/23 0720, 17 Units/kg/hr at 10/25/23 0720 oxygen GAS, , Inhalation, Oxygen, Kim Leonardo MD, Oxygen On at 10/24/23 1600 Assessment & Plan Assessment and Plan: Ramona Stringer is a 67 year old female with significant history of Afib s/p atrial ablation 2015 on eliquis (which was recently started, patient does not take), HFrEF, HTN, WILL on CPAP, gout, LAYLA, Hx of GI bleed presented with sepsis with suspected lung source, newly diagnosed CHFrEF (EF 20%), afib with RVR. Sepsis with suspected lung source (resolved) Acute hypoxic respiratory failure (resolved) Patient looks euvolemic on exam. - Continue ceftriaxone, azithromycin for additional day, will consider to stop tomorrow - IV 500 ml (hypovolemic on exam, had multiple bowel movements, OLGA likely prerenal) - On room air Ileus (improved) - Had multiple bowel movements, will d/c laxatives - Will try to advance diet today HFrEF (EF 20%) Afib with RVR Most likely sepsis driven stress induced cardiomyopathy and rapid ventricular response with known PMH of afib. Ischemic etiology can not be fully excluded but clinically less likely. - Metoprolol 5 mg IV Q2H for rate control - Will consider digoxin for better control if no improvement (digoxin is on allergy list but patient does not recall any allergic side effects and reports just some mental disturbances she had when was hospitalized last time and digoxin was given) - Hold diuretics now including ARCHITECTURAL ADMINISTRATIVE ASSISTANT Bumex - Heparin gtt, hold Eliquis Chronic problems: WILL - BPAP at night and with naps HTN - hold ARCHITECTURAL ADMINISTRATIVE ASSISTANT Hydrodiuril (patient reports that is not taking), hold atenolol Gout - hold ARCHITECTURAL ADMINISTRATIVE ASSISTANT allopurinol (patient reports that is not taking) Muscle spasms - hold ARCHITECTURAL ADMINISTRATIVE ASSISTANT PRN Baclofen LINES / DRAINS / TUBES: LINES ALL Duration Peripheral Line Left Hand 22 Gauge 4 days Peripheral Line Right 3 days Peripheral Line Right;Lower;Anterior Arm 20 Gauge 3 days List of services consulted/following: GASTROENTEROLOGY CONSULT IP Patient was discussed with Employment Case Manager and attending physician, DUSTY SANCHEZ, MARGARET PGY-1 I saw and evaluated the patient today. I have reviewed the trainee note and agree. Patient admitted to the hospital with features consistent of infection, abdominal discomfort and clinical finding consistent with ileus. Patient also had diarrhea for the last few days which is somewhat improved. The etiology of infection is not clear the patient is clinically improving. Patient is also known to have longest atrial fibrillation with rapid ventricular response. She is also known to have heart failure with reduced LV ejection fraction. Patient has remained tachycardic despite intravenous beta-archie therapy. Patient appears to be volume overloaded as well and she is known to have current LV ejection fraction of 20%. The dose of beta-archie may be given more frequently. Patient may also be given digoxin which may control the ventricular response and relieve the congestion of heart failure for this patient. Medicine has been requested to transfer the patient in their service. Medicine has accepted the patient in the service for optimal treatment of patient noncardiac conditions. Much appreciated. * Dusty Sanchez MD - 10/24/2023 5:14 AM EST PROGRESS NOTE - [place] [facility] [id number] Name: Ramona Stringer [place] [facility] [place] [id number] Date: 10/24/2023 Time: 9:03 AM Date of admission: 10/21/2023 Hospital length of stay: 3 days Subjective Summary: Ramona Stringer is a 67 year old female with significant history of Afib s/p atrial ablation 2015 on eliquis (which was recently started, patient does not take), HFrEF, HTN, WILL on CPAP, gout, LAYLA, Hx of GI bleed presented with sepsis with suspected lung source, newly diagnosed CHFrEF (EF 20%), afib with RVR. PMH: Patient was seen in urgent care on 10/20/2023, and was sent to [facility], where she was found tohave afib with RVR for which she received diltiazem 20mg IV and was treated with AoC HFrEF with IV lasix. At [facility], patient started complaining of left sided abdominal pain and developed a fever. She had a CT A/P completed which did not show any acute abdominal pathology. Patient was empirically started on CTX and azithromycin for possible CAP. Patient was subsequently transferred [place] [facility]. Overnight Events: Continues to be in A fib with RVR requiring IV lopressor 5 mg q4h. Subjective: Patient was seen and examined at bedside. Endorsed to not feeling well in general and inability to take a deep breath. This happens intermittently and resembles a panic attack. Continues to have abdominal pain but stated that it improved after having a bowel movement the night prior. As per RN, shecontinues to have liquid bowel movements. Denied any chest pain, nausea, vomiting or any other complaints. Objective CONSTITUTIONAL DATA / OBJECTIVE: Vital Signs (Most Recent): Blood Pressure: 109/61 mmHg Last 12H: Most Recent Systolic BP Av.5 mmHg Min: 86 mmHg Max: 126 mmHg Pulse: 129 Last 12H: Pulse Av.6 Min: 114 Max: 149 Temperature: 37.1 C (98.8 F) Last 12H: Most Recent Temperature Av.9 C Min: 36.61 C Max: 37.11 C Respiratory Rate: 18 O2 Saturation: 96 % Vital Signs (Last 24 Hours): Pulse Av.3 Min: 114 Max: 156 No data recorded Most Recent Systolic BP Av.5 mmHg Min: 86 mmHg Max: 135 mmHg Most Recent Diastolic BP Av.8 mmHg Min: 61 mmHg Max: 105 mmHg Resp Av.4 Min: 17 Max: 39 Most Recent Temperature Av.7 C Min: 36.28 C Max: 37.11 C SpO2 Av.2 % Min: 91 % Max: 98 % Intake & Output Summary (Last 24 hours): Intake/Output Summary (Last 24 hours) at 10/24/2023 0903 Last data filed at 10/24/2023 0900 Gross per 24 hour Intake 2448.06 ml Output 50 ml Net 2398.06 ml Net IO Since Admission: 188.84 mL [10/22/23 0645] Height & Weight: Height: 167.6 cm (5' 5.98") (10/24/23 040) Weight: 106.9 kg (235 lb 10.8 oz) (12/30/23 0400) Weight change: -1 kg (-2 lb 3.3 oz) Body mass index is 38.06 kg/m. Physical Examination: General: In no acute distress, appeared uncomfortable HEENT: Atraumatic, normocephalic, non-icteric sclera, moist mucous membranes Neurologic: Alert and oriented but tired, no focal deficits, following commands, appropriate responses to questions, CN grossly intact, power equal and normal in UL and LL bilaterally Neck: No JVD, no submental, submandibular, or cervical lymphadenopathy CVS: RRR, normal S1 and S2, no murmurs, rubs, or gallops Respiratory: Normal effort, breath sounds normal and equal bilaterally, no crackles, no rales Abdominal: Soft, mildly distended, mild diffuse tenderness to palpation, no peritoneal signs, decreased bowel sounds Extremities: No edema, peripheral pulses are regular and equal Skin: Warm, dry, intact Peripheral Line Right (Active) Number of days: 3 Peripheral Line Right;Lower;Anterior Arm 20 Gauge (Active) Number of days: 3 Laboratory Values: reviewed. -- Brief labs below include the 7 most recent results over the past week. No results in the last 7 days - inpatent use only Lab results within last 7 days (see chart for full results) Units 10/24/23 0544 10/23/23 0647 10/22/23 0530 10/21/23 2340 10/21/23 0538 10/20/23 1711 Sodium mmol/L 135 136 137 134* 140 139 Potassium mmol/L 3.0* 3.6 3.6 3.9 3.6 3.6 Chloride mmol/L 97* 98 99 97* 100 99 CO2 mmol/L 20* 26 23 23 27 24 BUN mg/dL 36* 27* 19 18 16 16 Creatinine mg/dL 1.5* 1.2* 0.9 0.9 0.7 0.7 Estimated Glomerular Filtration Rate mL/min 39* 49* 70 67 90 >90 Glucose mg/dL 107 115 114 124* 110 122* Calcium mg/dL 9.6 9.1 9.1 9.5 9.6 9.5 Magnesium mg/dL 2.8* 2.5 -- 2.4 2.2 2.0 Phosphorus mg/dL 5.8* 4.3 -- 3.6 3.8 3.8 Anion Gap mmol/L 18* 12 15 14 13 16* Lab results within last 7 days (see chart for full results) Units 10/24/23 0544 10/23/23 0647 10/22/23 0530 10/21/23 2340 10/21/23 0538 10/20/23 1711 WBC K/uL 7.45 7.30 9.67 10.59 9.56 12.23* HGB g/dL 15.1 14.9 14.1 15.2 14.2 14.5 HCT % 47.3* 45.1 44.2 46.0* 42.5 43.3 PLT K/uL 228 228 195 223 225 236 MCV fL 92.2 92.0 93.1 92.0 90.4 90.4 Lab results within last 7 days (see chart for full results) Units 10/21/23 0538 10/20/23 2322 10/20/23 1906 10/20/23 1711 Troponin T, High Sensitivity ng/L 42* 45* 41* 38* BNP, NT-Pro pg/mL -- -- -- 4,473* Lab results within last 7 days (see chart for full results) Units 10/24/23 0544 10/23/23 0647 10/22/23 2320 10/22/23 1404 10/22/23 0530 10/21/23 2340 10/21/23 0538 Prothrombin Time seconds 14.3 14.8 -- -- 15.5* 15.2 16.0* INR 1.1 1.1 -- -- 1.2 1.2 1.3* aPTT seconds 81* 73* 73* 58* 36 24 -- Heparin, Unfractionated IU/mL -- -- -- -- -- 0.81* -- Lab results within last 7 days (see chart for full results) Units 10/21/23 2340 10/21/23 0538 Albumin g/dL 4.2 -- Protein g/dL 7.6 -- Bilirubin, Total mg/dL 1.3* -- AST U/L 38* -- ALT U/L 23 -- Alkaline Phosphatase U/L 92 -- Triglycerides mg/dL -- 106 Lab results within last 7 days (see chart for full results) Units 10/22/23 1444 10/21/23 2340 Lactate mmol/L 1.1 1.8 Cultures: reviewed. Lab results within last 7 days (see chart for full results) Units 10/21/23 2255 10/20/23 1752 Coronavirus SARS-CoV-2 by PCR Negative Negative Recent Cultures (2 Weeks) 10/21/2023 10/21/2023 10/21/2023 02/04/2023 03/05/2016 02/12/2015 10:55 PM 3:01 PM 2:57 PM 12:46 PM 11:38 AM 12:40 PM SPECIMEN DESCRIPTION -- -- -- -- CLEAN CATCH URINE NASAL CULTURE -- -- -- -- MULTIPLE BETTY SUGGESTS CONTAMINATION OR COLONIZATION -- BLOOD CULTURE GROWTH -- No growth to date No growth to date -- -- -- QUANT URINE CULTURE GROWTH No significant growth -- -- No significant growth -- -- Radiographic Studies: reviewed. NM HEPATOBILIARY SYSTEM Result Date: 10/23/2023 IMPRESSION Patent cystic and common bile ducts; no scintigraphic evidence of acute cholecystitis. Ihave personally reviewed this examination and agree with the resident/fellow physician's interpretation. XR ABDOMEN 1 VIEW Result Date: 10/23/2023 IMPRESSION Diffuse ileus bowel gas pattern unchanged. VASC DUPLEX VENOUS LE BILAT Result Date: 10/22/2023 : Right lower extremity with no evidence of acute deep venous thrombosis. Left lower extremity withno evidence of acute deep venous thrombosis. XR ABDOMEN 1 VIEW Result Date: 10/22/2023 IMPRESSION Diffuse gaseous dilation of the colon and rectum suggesting ileus. CT ABD/PELVIS WO IV/ORAL CONTRAST Result Date: 10/21/2023 IMPRESSION: 1. No acute findings within the abdomen or pelvis. 2. Colonic diverticulosis. No evidence of acute diverticulitis. 3. Small left lower abdominal wall hernia containing loop of small bowelwithout evidence of obstruction. 4. Cholelithiasis without evidence of acute cholecystitis. 5. Small patchy area of consolidation right lower lobe. Cannot exclude pneumonia. 6. Two pulmonary nodules right middle lobe largest which measures 5 mm. Recommend a follow-up CT chest in 6 months for continued surveillance. THIS DOCUMENT HAS BEEN ELECTRONICALLY SIGNED BY LULU LOTT MD HIDA scan (): Patent cystic and common bile ducts; no scintigraphic evidence of acute cholecystitis. Most recent echocardiogram 10/21/2023: The qualitative LV ejection fraction is 20-24% (severely reduced). The left ventricular cavity is severely dilated (LVED volume >80 ml/m^2). There is diffuse hypokinesis. The right ventricular cavity is mildly dilated. The right ventricular systolic function is mildly reduced Moderate secondary mitral regurgitation is present. Mild aortic valve regurgitation is present. The aortic root and proximal ascending aorta are mildly enlarged. Dilated IVC with reduced collapsability with sniff indicates an elevated right atrial pressure of 15mmHg. Moderate pulmonary hypertension is present. Current Facility-Administered Medications: Polyethylene Glycol 3350 (Miralax) oral powder 17 g, 1 Packet, Oral, Daily(AM), Giovanny Merchant MD Benzonatate (Tessalon Perles) cap 100 mg, 100 mg, Oral, Q6H PRN, Kim Leonardo MD, 100 mg at 10/23/23 2311 Metoprolol Tartrate (Lopressor) inj 5 mg, 5 mg, IV Push, Q4H, Owen Fontanez MD, 5 mg at 10/24/23 0808 Acetaminophen (Tylenol) tab 975 mg, 975 mg, Oral, Q4H PRN, Kim Leonardo MD, 975 mg at 10/24/23 0315 hEParin 1000 UNIT/ML inj 1,200 Units, 15 Units/kg (Adjusted), IV Push, PRN, Kim Leonardo MD, 1,200 Units at 10/22/23 1643 hEParin 1000 UNIT/ML inj 2,400 Units, 30 Units/kg (Adjusted), IV Push, PRN, Kim Leonardo MD, 2,400 Units at 10/22/23 0722 hEParin 25,000 units in 250 mL (aPTT-Cardiac) infusion, 0-30 Units/kg/hr (Adjusted), Intravenous, Titrate, Kim Leonardo MD, Last Rate: 13.53 mL/hr at 10/24/23 0851, 17 Units/kg/hr at 10/24/23 0851 oxygen GAS, , Inhalation, Oxygen, Kim Leonardo MD, Oxygen On at 10/24/23 0000 Piperacillin-Tazobactam (Zosyn) 4.5 g in 100 mL NSS ivpb (FOUR hour infusion), 4.5 g, IV Piggyback,Q8H Now, Kim Leonardo MD, Last Rate: 25 mL/hr at 10/24/23307, 4.5 g at 10/24/23 030 Assessment & Plan Assessment and Plan: Ramona Stringer is a 67 year old female with significant history of Afib s/p atrial ablation 2015 on eliquis (which was recently started, patient does not take), HFrEF, HTN, WILL on CPAP, gout, LAYLA, Hx of GI bleed presented with sepsis with suspected lung source, newly diagnosed HFrEF (EF 20%), afib with RVR. Sepsis with suspected lung source- resolving Acute hypoxic respiratory failure- resolved Appears euvolemic on exam. Currently saturating on room air. No signs of other infectious etiologies. - Will discontinue Zosyn given concern for AIN. Will switch to ceftriaxone and azithromycin to cover for CAP. Will plan to treat through 10/25 - Will continue to wean off oxygen OLGA Unclear etiology for OLGA at this time. Could be pre-renal in the setting of intravascular volume depletion from NPO status. Other ddx include contrast induced ATN vs AIN from antibiotics. No concern for abdominal compartment syndrome given improving abdominal pain. - Will trial a small bolus of fluid to assess for improvement. 500 cc isolyte ordered - Discontinued Zosyn - UA with microscopy - Renal US negative for hydronephrosis Ileus- resolved Had 4 bowel movements overnight. Abdominal pain improving - Will repeat KUB this morning to assess for resolution - DAVID with no stool in rectal vault - Continue miralax qd - Serial abdominal exams, will proceed with NG tube if gets worse, may consider repeat CT abdomen HFrEF (EF 20%) Afib with RVR Most likely sepsis driven stress induced cardiomyopathy and rapid ventricular response. Ischemic etiology can not be fully excluded but clinically less likely. - Will trial 500 cc bolus to see if heart rate improves - Continue metoprolol 5 mg IB q4H for rate control - Hold diuretics now including ARCHITECTURAL ADMINISTRATIVE ASSISTANT Bumex - Heparin gtt, hold Eliquis (ARCHITECTURAL ADMINISTRATIVE ASSISTANT but not taking) Chronic problems: WILL - BPAP at night and with naps HTN - hold ARCHITECTURAL ADMINISTRATIVE ASSISTANT Hydrodiuril (patient reports that is not taking), hold atenolol Gout - hold ARCHITECTURAL ADMINISTRATIVE ASSISTANT allopurinol (patient reports that is not taking) Muscle spasms - hold ARCHITECTURAL ADMINISTRATIVE ASSISTANT PRN Baclofen LINES / DRAINS / TUBES: LINES ALL Duration Peripheral Line Left Hand 22 Gauge 3 days Peripheral Line Right 2 days Peripheral Line Right;Lower;Anterior Arm 20 Gauge 2 days List of services consulted/following: GASTROENTEROLOGY CONSULT IP Patient will be seen and discussed with attending fabric worker supervisor Dr. Dusty Merchant MD 10/24/2023 9:14 AM PGY-3 I saw and evaluated the patient 10/24/23. I have reviewed the trainee note and agree. Patient admitted to the hospital with features suggestive of infection though can not be localized.Patient was treated empirically with broad-spectrum antibiotics. Patient continued to experience watery and loose stool with radiological finding of ileus. Possibility of impaction of stool is made rectal examination is performed by Dr. Merchant and was found to be not the case. Will continue to manage the patient heart failure and control the ventricular response. * Dusty Sanchez MD - 10/23/2023 5:14 PM EST PROGRESS NOTE - [place] [facility] [id number] Name: Ramona Stringer [place] [facility] [place] [id number] Date: 10/23/2023 Time: 5:14 PM Date of admission: 10/21/2023 Hospital length of stay: 2 days Subjective Summary: Ramona Stringer is a 67 year old female with significant history of Afib s/p atrial ablation 2015 on eliquis (which was recently started, patient does not take), HFrEF, HTN, WILL on CPAP, gout, LAYLA, Hx of GI bleed presented with sepsis with suspected lung source, newly diagnosed CHFrEF (EF 20%), afib with RVR. PMH: Patient was seen in urgent care on 10/20/2023, and was sent to [facility], where she was found tohave afib with RVR for which she received diltiazem 20mg IV and was treated with AoC HFrEF with IV lasix. At [facility], patient started complaining of left sided abdominal pain and developed a fever. She had a CT A/P completed which did not show any acute abdominal pathology. Patient was empirically started on CTX and azithromycin for possible CAP. Patient was subsequently transferred [place] [facility]. Overnight Events: No acute events overnight. Transfer. Afib with RVR controlled with IV metoprolol. Subjective: Patient seen and examined at bedside. Patient reports diffuse abdominal pain more on left side. Endorses mild SOB. Patient denies chest pain, dysuria, flank pain, joint pain, muscle pain and weakness. Objective CONSTITUTIONAL DATA / OBJECTIVE: Vital Signs (Most Recent): Blood Pressure: 124/85 mmHg Last 12H: Most Recent Systolic BP Av.7 mmHg Min: 102 mmHg Max: 131 mmHg Pulse: 155 Last 12H: Pulse Av.8 Min: 114 Max: 155 Temperature: 36.5 C (97.7 F) Last 12H: Most Recent Temperature Av.7 C Min: 36.5 C Max: 36.89 C Respiratory Rate: 30 O2 Saturation: 91 % Vital Signs (Last 24 Hours): Pulse Av.4 Min: 106 Max: 158 No data recorded Most Recent Systolic BP Av.1 mmHg Min: 86 mmHg Max: 131 mmHg Most Recent Diastolic BP Av.7 mmHg Min: 57 mmHg Max: 90 mmHg Resp Av.3 Min: 17 Max: 39 Most Recent Temperature Av.9 C Min: 36.5 C Max: 37.5 C SpO2 Av.8 % Min: 85 % Max: 96 % Intake & Output Summary (Last 24 hours): Intake/Output Summary (Last 24 hours) at 10/23/2023 1714 Last data filed at 10/23/2023 1600 Gross per 24 hour Intake 2671.83 ml Output 575 ml Net 2096.83 ml Net IO Since Admission: 188.84 mL [10/22/23 0645] Height & Weight: Height: 167.6 cm (5' 6") (10/21/232039) Weight: 108.7 kg (239 lb 10.2 oz) (10/23/23399) Weight change: -2.1 kg (-4 lb 10.1 oz) Body mass index is 38.68 kg/m. Physical Examination: General: In no acute distress, looks better today HEENT: Atraumatic, normocephalic, non-icteric sclera, moist mucous membranes Neurologic: Alert and oriented but tired, no focal deficits, following commands, appropriate responses to questions, CN grossly intact, power equal and normal in UL and LL bilaterally Neck: No JVD, no submental, submandibular, or cervical lymphadenopathy CVS: RRR, normal S1 and S2, no murmurs, rubs, or gallops Respiratory: Normal effort, breath sounds normal and equal bilaterally, no crackles, no rales Abdominal: Soft, mildly distended, diffusely tender, no peritoneal signs, decreased bowel sounds Extremities: No edema, peripheral pulses are regular and equal Skin: Warm, dry, intact Peripheral Line Right (Active) Number of days: 2 Peripheral Line Right;Lower;Anterior Arm 20 Gauge (Active) Number of days: 2 Laboratory Values: reviewed. -- Brief labs below include the 7 most recent results over the past week. No results in the last 7 days - inpatent use only Lab results within last 7 days (see chart for full results) Units 10/23/23 0647 10/22/23 0530 10/21/23 2340 10/21/23 0538 10/20/23 1711 Sodium mmol/L 136 137 134* 140 139 Potassium mmol/L 3.6 3.6 3.9 3.6 3.6 Chloride mmol/L 98 99 97* 100 99 CO2 mmol/L 26 23 23 27 24 BUN mg/dL 27* 19 18 16 16 Creatinine mg/dL 1.2* 0.9 0.9 0.7 0.7 Estimated Glomerular Filtration Rate mL/min 49* 70 67 90 >90 Glucose mg/dL 115 114 124* 110 122* Calcium mg/dL 9.1 9.1 9.5 9.6 9.5 Magnesium mg/dL 2.5 -- 2.4 2.2 2.0 Phosphorus mg/dL 4.3 -- 3.6 3.8 3.8 Anion Gap mmol/L 12 15 14 13 16* Lab results within last 7 days (see chart for full results) Units 10/23/23 0647 10/22/23 0530 10/21/23 2340 10/21/23 0538 10/20/23 1711 WBC K/uL 7.30 9.67 10.59 9.56 12.23* HGB g/dL 14.9 14.1 15.2 14.2 14.5 HCT % 45.1 44.2 46.0* 42.5 43.3 PLT K/uL 228 195 223 225 236 MCV fL 92.0 93.1 92.0 90.4 90.4 Lab results within last 7 days (see chart for full results) Units 10/21/23 0538 10/20/23 2322 10/20/23 1906 10/20/23 1711 Troponin T, High Sensitivity ng/L 42* 45* 41* 38* BNP, NT-Pro pg/mL -- -- -- 4,473* Lab results within last 7 days (see chart for full results) Units 10/23/23 0647 10/22/23 2320 10/22/23 1404 10/22/23 0530 10/21/23 2340 10/21/23 0538 Prothrombin Time seconds 14.8 -- -- 15.5* 15.2 16.0* INR 1.1 -- -- 1.2 1.2 1.3* aPTT seconds 73* 73* 58* 36 24 -- Heparin, Unfractionated IU/mL -- -- -- -- 0.81* -- Lab results within last 7 days (see chart for full results) Units 10/21/23 2340 10/21/23 0538 Albumin g/dL 4.2 -- Protein g/dL 7.6 -- Bilirubin, Total mg/dL 1.3* -- AST U/L 38* -- ALT U/L 23 -- Alkaline Phosphatase U/L 92 -- Triglycerides mg/dL -- 106 Lab results within last 7 days (see chart for full results) Units 10/22/23 1444 10/21/23 2340 Lactate mmol/L 1.1 1.8 Cultures: reviewed. Lab results within last 7 days (see chart for full results) Units 10/21/23 2255 10/20/23 1752 Coronavirus SARS-CoV-2 by PCR Negative Negative Recent Cultures (2 Weeks) 10/21/2023 10/21/2023 10/21/2023 02/04/2023 03/05/2016 02/12/2015 10:55 PM 3:01 PM 2:57 PM 12:46 PM 11:38 AM 12:40 PM SPECIMEN DESCRIPTION -- -- -- -- CLEAN CATCH URINE NASAL CULTURE -- -- -- -- MULTIPLE BETTY SUGGESTS CONTAMINATION OR COLONIZATION -- BLOOD CULTURE GROWTH -- No growth to date No growth to date -- -- -- QUANT URINE CULTURE GROWTH No significant growth -- -- No significant growth -- -- Radiographic Studies: reviewed. NM HEPATOBILIARY SYSTEM Result Date: 10/23/2023 IMPRESSION Patent cystic and common bile ducts; no scintigraphic evidence of acute cholecystitis. Ihave personally reviewed this examination and agree with the resident/fellow physician's interpretation. XR ABDOMEN 1 VIEW Result Date: 10/23/2023 IMPRESSION Diffuse ileus bowel gas pattern unchanged. VASC DUPLEX VENOUS LE BILAT Result Date: 10/22/2023 : Right lower extremity with no evidence of acute deep venous thrombosis. Left lower extremity withno evidence of acute deep venous thrombosis. XR ABDOMEN 1 VIEW Result Date: 10/22/2023 IMPRESSION Diffuse gaseous dilation of the colon and rectum suggesting ileus. CT ABD/PELVIS WO IV/ORAL CONTRAST Result Date: 10/21/2023 IMPRESSION: 1. No acute findings within the abdomen or pelvis. 2. Colonic diverticulosis. No evidence of acute diverticulitis. 3. Small left lower abdominal wall hernia containing loop of small bowelwithout evidence of obstruction. 4. Cholelithiasis without evidence of acute cholecystitis. 5. Small patchy area of consolidation right lower lobe. Cannot exclude pneumonia. 6. Two pulmonary nodules right middle lobe largest which measures 5 mm. Recommend a follow-up CT chest in 6 months for continued surveillance. THIS DOCUMENT HAS BEEN ELECTRONICALLY SIGNED BY LULU LOTT MD HIDA scan (): Patent cystic and common bile ducts; no scintigraphic evidence of acute cholecystitis. Most recent echocardiogram 10/21/2023: The qualitative LV ejection fraction is 20-24% (severely reduced). The left ventricular cavity is severely dilated (LVED volume >80 ml/m^2). There is diffuse hypokinesis. The right ventricular cavity is mildly dilated. The right ventricular systolic function is mildly reduced Moderate secondary mitral regurgitation is present. Mild aortic valve regurgitation is present. The aortic root and proximal ascending aorta are mildly enlarged. Dilated IVC with reduced collapsability with sniff indicates an elevated right atrial pressure of 15mmHg. Moderate pulmonary hypertension is present. Current Facility-Administered Medications: Metoprolol Tartrate (Lopressor) inj 5 mg, 5 mg, IV Push, Q4H, Owen Fontanez MD, 5 mg at 10/23/23 1549 Polyethylene Glycol 3350 (Miralax) oral powder 17 g, 1 Packet, Oral, BID (0900,2100), Owen Fontanez MD, 17 g at 10/23/23 0816 Acetaminophen (Tylenol) tab 975 mg, 975 mg, Oral, Q4H PRN, Kim Leonardo MD, 975 mg at 10/21/23 2053 hEParin 1000 UNIT/ML inj 1,200 Units, 15 Units/kg (Adjusted), IV Push, PRN, Kim Leonardo MD, 1,200 Units at 10/22/23 1643 hEParin 1000 UNIT/ML inj 2,400 Units, 30 Units/kg (Adjusted), IV Push, PRN, Kim Leonardo MD, 2,400 Units at 10/22/23 0722 hEParin 25,000 units in 250 mL (aPTT-Cardiac) infusion, 0-30 Units/kg/hr (Adjusted), Intravenous, Titrate, Kim Leonardo MD, Last Rate: 13.53 mL/hr at 10/23/23 1400, 17 Units/kg/hr at 10/23/23 1400 oxygen GAS, , Inhalation, Oxygen, Kim Leonardo MD, 3 L/min(Oxygen) at 10/23/23 1600 Piperacillin-Tazobactam (Zosyn) 4.5 g in 100 mL NSS ivpb (FOUR hour infusion), 4.5 g, IV Piggyback,Q8H Now, Kim Leonardo MD, Last Rate: 25 mL/hr at 10/23/23 1132, 4.5 g at 10/23/23 1132 Assessment & Plan Assessment and Plan: Ramona Stringer is a 67 year old female with significant history of Afib s/p atrial ablation 2015 on eliquis (which was recently started, patient does not take), HFrEF, HTN, WILL on CPAP, gout, LAYLA, Hx of GI bleed presented with sepsis with suspected lung source, newly diagnosed CHFrEF (EF 20%), afib with RVR. Sepsis with suspected lung source Acute hypoxic respiratory failure Patient looks euvolemic on exam. Given new O2 requirement and CT showing small consolidation in RLL, lung may be the source of infection but not fully convincing due to small consolidation area and the patient complaining of abdominal pain (though negative for infection CT abd/pelvis, negative HIDAscan). Blood cultures and urine cultures showed NGTD. - Continue Zosyn - LFNC (currently on 3 l O2) Ileus KUB showed ileus without obstruction pattern. No peritoneal signs on exam, no perforation on KUB. HIDA scan negative. - NPO, bowel regimen (Miralax) - Patient refuse NG tube - Serial abdominal exams, will proceed with NG tube if gets worse, may consider repeat CT abdomen HFrEF (EF 20%) Afib with RVR Most likely sepsis driven stress induced cardiomyopathy and rapid ventricular response. Ischemic etiology can not be fully excluded but clinically less likely. - Metoprolol 5 mg IB q4H for rate control - Hold diuretics now including ARCHITECTURAL ADMINISTRATIVE ASSISTANT Bumex - Heparin gtt, hold Eliquis (ARCHITECTURAL ADMINISTRATIVE ASSISTANT but not taking) Chronic problems: WILL - BPAP at night and with naps HTN - hold ARCHITECTURAL ADMINISTRATIVE ASSISTANT Hydrodiuril (patient reports that is not taking), hold atenolol Gout - hold ARCHITECTURAL ADMINISTRATIVE ASSISTANT allopurinol (patient reports that is not taking) Muscle spasms - hold ARCHITECTURAL ADMINISTRATIVE ASSISTANT PRN Baclofen LINES / DRAINS / TUBES: LINES ALL Duration Peripheral Line Left Hand 22 Gauge 2 days Peripheral Line Right 2 days Peripheral Line Right;Lower;Anterior Arm 20 Gauge 1 day List of services consulted/following: GASTROENTEROLOGY CONSULT IP Patient was discussed with Employment Case Manager and attending physician, DUSTY SANCHEZ, IM PGY-1 I saw and evaluated the patient today. I have reviewed the trainee note and agree. * Owen Fontanez MD - 10/22/2023 6:45 AM EST PROGRESS NOTE - [place]iology [facility] [address] Name: Ramona Stringer Location: [place] [id number] Date: 10/22/2023 Time: 6:45 AM Date of admission: 10/21/2023 Hospital length of stay: 1 days Subjective Summary: Ramona Stringer is a 67 year old female with significant history of Afib s/p atrial ablation 2015 on eliquis (which was recently started, patient does not take), HFrEF, HTN, WILL on CPAP, gout, LAYLA, Hx of GI bleed presented with sepsis with suspected lung source, newly diagnosed CHFrEF (EF 20%), afib with RVR. PMH: Patient was seen in urgent care on 10/20/2023, and was sent to [facility], where she was found tohave afib with RVR for which she received diltiazem 20mg IV and was treated with AoC HFrEF with IV lasix. At [facility], patient started complaining of left sided abdominal pain and developed a fever. She had a CT A/P completed which did not show any acute abdominal pathology. Patient was empirically started on CTX and azithromycin for possible CAP. Patient was subsequently transferred [place] [facility]. Overnight Events: No acute events overnight. Transfer. Afib with RVR controlled with IV metoprolol. Subjective: Patient seen and examined at bedside. Patient reports diffuse abdominal pain more on left side. Endorses mild SOB. Patient denies chest pain, dysuria, flank pain, joint pain, muscle pain and weakness. Objective CONSTITUTIONAL DATA / OBJECTIVE: Vital Signs (Most Recent): Blood Pressure: 107/77 mmHg Last 12H: Most Recent Systolic BP Av.3 mmHg Min: 96 mmHg Max: 133 mmHg Pulse: 135 Last 12H: Pulse Av.6 Min: 85 Max: 152 Temperature: 36.8 C (98.2 F) Last 12H: Most Recent Temperature Av.5 C Min: 36.39 C Max: 39.39 C Respiratory Rate: 30 O2 Saturation: 97 % Vital Signs (Last 24 Hours): Pulse Av.6 Min: 85 Max: 152 No data recorded Most Recent Systolic BP Av.3 mmHg Min: 96 mmHg Max: 133 mmHg Most Recent Diastolic BP Av.7 mmHg Min: 60 mmHg Max: 91 mmHg Resp Av.6 Min: 20 Max: 36 Most Recent Temperature Av.5 C Min: 36.39 C Max: 39.39 C SpO2 Av.3 % Min: 92 % Max: 98 % Intake & Output Summary (Last 24 hours): Intake/Output Summary (Last 24 hours) at 10/22/2023 0645 Last data filed at 10/22/2023 0400 Gross per 24 hour Intake 738.84 ml Output 550 ml Net 188.84 ml Net IO Since Admission: 188.84 mL [10/22/2345] Height & Weight: Height: 167.6 cm (5' 6") (10/21/232039) Weight: 110 kg (242 lb 8.1 oz) (10/21/232039) Weight change: Body mass index is 39.14 kg/m. Physical Examination: General: In no acute distress HEENT: Atraumatic, normocephalic, non-icteric sclera, moist mucous membranes Neurologic: Alert and oriented but tired, no focal deficits, following commands, appropriate responses to questions, CN grossly intact, power equal and normal in UL and LL bilaterally Neck: No JVD, no submental, submandibular, or cervical lymphadenopathy CVS: RRR, normal S1 and S2, no murmurs, rubs, or gallops Respiratory: Normal effort, breath sounds normal and equal bilaterally, no crackles, no rales Abdominal: Soft, mildly distended, diffusely tender, no peritoneal signs, decreased bowel sounds Extremities: No edema, peripheral pulses are regular and equal Skin: Warm, dry, intact Peripheral Line Right (Active) Number of days: 1 Peripheral Line Right;Lower;Anterior Arm 20 Gauge (Active) Number of days: 1 Laboratory Values: reviewed. -- Brief labs below include the 7 most recent results over the past week. No results in the last 7 days - inpatent use only Lab results within last 7 days (see chart for full results) Units 10/22/23 0530 10/21/23 2340 10/21/23 0538 10/20/23 1711 Sodium mmol/L 137 134* 140 139 Potassium mmol/L 3.6 3.9 3.6 3.6 Chloride mmol/L 99 97* 100 99 CO2 mmol/L 24 BUN mg/dL 19 18 16 16 Creatinine mg/dL 0.9 0.9 0.7 0.7 Estimated Glomerular Filtration Rate mL/min 70 67 90 >90 Glucose mg/dL 114 124* 110 122* Calcium mg/dL 9.1 9.5 9.6 9.5 Magnesium mg/dL -- 2.4 2.2 2.0 Phosphorus mg/dL -- 3.6 3.8 3.8 Anion Gap mmol/L 15 14 13 16* Lab results within last 7 days (see chart for full results) Units 10/22/23 0530 10/21/23 2340 10/21/23 0538 10/20/23 1711 WBC K/uL 9.67 10.59 9.56 12.23* HGB g/dL 14.1 15.2 14.2 14.5 HCT % 44.2 46.0* 42.5 43.3 PLT K/uL 195 223 225 236 MCV fL 93.1 92.0 90.4 90.4 Lab results within last 7 days (see chart for full results) Units 10/21/23 0538 10/20/23 2322 10/20/23 1906 10/20/23 1711 Troponin T, High Sensitivity ng/L 42* 45* 41* 38* BNP, NT-Pro pg/mL -- -- -- 4,473* Lab results within last 7 days (see chart for full results) Units 10/22/23 0530 10/21/23 2340 10/21/23 0538 Prothrombin Time seconds 15.5* 15.2 16.0* INR 1.2 1.2 1.3* aPTT seconds 36 24 -- Heparin, Unfractionated IU/mL -- 0.81* -- Lab results within last 7 days (see chart for full results) Units 10/21/23 2340 10/21/23 0538 Albumin g/dL 4.2 -- Protein g/dL 7.6 -- Bilirubin, Total mg/dL 1.3* -- AST U/L 38* -- ALT U/L 23 -- Alkaline Phosphatase U/L 92 -- Triglycerides mg/dL -- 106 Lab results within last 7 days (see chart for full results) Units 10/21/23 234 Lactate mmol/L 1.8 Cultures: reviewed. Lab results within last 7 days (see chart for full results) Units 10/21/235 10/20/23 175 Coronavirus SARS-CoV-2 by PCR Negative Negative Recent Cultures (2 Weeks) 10/21/2023 10/21/2023 02/04/2023 03/05/2016 02/12/2015 3:01 PM 2:57 PM 12:46 PM 11:38 AM 12:40 PM SPECIMEN DESCRIPTION -- -- -- CLEAN CATCH URINE NASAL CULTURE -- -- -- MULTIPLE BETTY SUGGESTS CONTAMINATION OR COLONIZATION -- BLOOD CULTURE GROWTH No growth to date No growth to date -- -- -- QUANT URINE CULTURE GROWTH -- -- No significant growth -- -- Radiographic Studies: reviewed. CT ABD/PELVIS WO IV/ORAL CONTRAST Result Date: 10/21/2023 IMPRESSION: 1. No acute findings within the abdomen or pelvis. 2. Colonic diverticulosis. No evidence of acute diverticulitis. 3. Small left lower abdominal wall hernia containing loop of small bowelwithout evidence of obstruction. 4. Cholelithiasis without evidence of acute cholecystitis. 5. Small patchy area of consolidation right lower lobe. Cannot exclude pneumonia. 6. Two pulmonary nodules right middle lobe largest which measures 5 mm. Recommend a follow-up CT chest in 6 months for continued surveillance. THIS DOCUMENT HAS BEEN ELECTRONICALLY SIGNED BY LULU LOTT MD XR CHEST 2 VIEWS Result Date: 10/20/2023 IMPRESSION 1. Mildly enlarged cardiac silhouette, new since the prior chest x- ray. The differentialdiagnosis includes cardiomegaly secondary to congestive heart failure or pericardial effusion. Please correlate clinically. 2. Mild pulmonary edema. Probable trace bilateral pleural effusions. Most recent echocardiogram 10/21/2023: The qualitative LV ejection fraction is 20-24% (severely reduced). The left ventricular cavity is severely dilated (LVED volume >80 ml/m^2). There is diffuse hypokinesis. The right ventricular cavity is mildly dilated. The right ventricular systolic function is mildly reduced Moderate secondary mitral regurgitation is present. Mild aortic valve regurgitation is present. The aortic root and proximal ascending aorta are mildly enlarged. Dilated IVC with reduced collapsability with sniff indicates an elevated right atrial pressure of 15mmHg. Moderate pulmonary hypertension is present. Current Facility-Administered Medications: Acetaminophen (Tylenol) tab 975 mg, 975 mg, Oral, Q4H PRN, Kim Leonardo MD, 975 mg at 10/21/232052 Atenolol (Tenormin) tab 25 mg, 25 mg, Oral, Daily(AM), Kim Leonardo MD Furosemide (Lasix) inj 60 mg, 60 mg, IV Push, BID (0900,1600), Kim Leonardo MD, 60 mg at hEParin 1000 UNIT/ML inj 1,200 Units, 15 Units/kg (Adjusted), IV Push, PRN, Kim Leonardo MD hEParin 1000 UNIT/ML inj 2,400 Units, 30 Units/kg (Adjusted), IV Push, PRN, Kim Leonardo MD hEParin 25,000 units in 250 mL (aPTT-Cardiac) infusion, 0-30 Units/kg/hr (Adjusted), Intravenous, Titrate, Kim Leonardo MD, Last Rate: 11.94 mL/hr at 10/22/23 0637, 15 Units/kg/hr at 10/22/23 0637 oxygen GAS, , Inhalation, Oxygen, Kim Leonardo MD, Oxygen On at 10/22/23 0000 Piperacillin-Tazobactam (Zosyn) 4.5 g in 100 mL NSS ivpb (FOUR hour infusion), 4.5 g, IV Piggyback,Q8H Now, Kim Leonardo MD, Last Rate: 25 mL/hr at 10/22/23 0253, 4.5 g at 10/22/23 0253 vancomycin (Vancocin) 1,250 mg in NSS 250 mL ivpb, 1,250 mg, IV Piggyback, Q12H NOWMalissa Abuzar, MD Assessment & Plan Assessment and Plan: Ramona Stringer is a 67 year old female with significant history of Afib s/p atrial ablation 2015 on eliquis (which was recently started, patient does not take), HFrEF, HTN, WILL on CPAP, gout, LAYLA, Hx of GI bleed presented with sepsis with suspected lung source, newly diagnosed CHFrEF (EF 20%), afib with RVR. Sepsis with suspected lung source Acute hypoxic respiratory failure Patient looks euvolemic on exam. Given new O2 requirement and CT showing small consolidation in RLL, lung may be the source of infection but not fully convincing due to small consolidation area and the patient complaining of abdominal pain (though negative for infection CT abd/pelvis). Blood cultures and urine cultures showed NGTD. - Continue Zosyn, d/c vancomycin due to negative MRSA swab - IV 500 ml (hypovolemic on exam) - LFNC (currently on 4 l O2) Ileus KUB showed ileus without obstruction pattern. No peritoneal signs on exam, no perforation on KUB. - NPO except meds, bowel regimen (Miralax, tap enema) - Serial abdominal exams, will proceed with NG tube if gets worse, may consider repeat CT abdomen HFrEF (EF 20%) Afib with RVR Most likely sepsis driven stress induced cardiomyopathy and rapid ventricular response. Ischemic etiology can not be fully excluded but clinically less likely. - Metoprolol 25 mg BID for rate control - Hold diuretics now including ARCHITECTURAL ADMINISTRATIVE ASSISTANT Bumex - Heparin gtt, hold Eliquis Chronic problems: WILL - BPAP at night and with naps HTN - hold ARCHITECTURAL ADMINISTRATIVE ASSISTANT Hydrodiuril (patient reports that is not taking), hold atenolol Gout - hold ARCHITECTURAL ADMINISTRATIVE ASSISTANT allopurinol (patient reports that is not taking) Muscle spasms - hold ARCHITECTURAL ADMINISTRATIVE ASSISTANT PRN Baclofen LINES / DRAINS / TUBES: LINES ALL Duration Peripheral Line Left Hand 22 Gauge 1 day Peripheral Line Right <1 day Peripheral Line Right;Lower;Anterior Arm 20 Gauge <1 day List of services consulted/following: None Patient was discussed with Employment Case Manager and attending physician, ANNABEL GRIMALDO IM PGY-1 Associated attestation - Annabel Grimaldo MD - 11/02/2023 9:11 AM EST I saw and evaluated the patient 10/22/2023. I have reviewed the trainee note and agree.This is lateattestation * Neno Estevez [facility] - 10/21/2023 9:19 PM EST PHARMACY PHARMACOKINETIC CONSULT [facility] [address] Name: Ramona Stringer [place] [id number] Date: 10/21/2023 Time: 9:20 PM Requesting service: Cardiology Med A Bacteria being treated: Empiric Source of infection: Respiratory Medication(s) being managed: Vancomycin Pharmacokinetic calculations will be performed utilizing [employer] software. Lab information: Lab Results Component Value Date/Time WBC 9.56 10/21/2023 05:38 AM WBC 12.23 (H) 10/20/2023 05:11 PM WBC 8.31 05/18/2023 01:40 PM WBC 9.4 09/21/2022 04:08 PM WBC 6.31 12/13/2021 10:04 AM WBC 6.51 02/09/2021 09:30 AM WBC 7.01 05/07/2020 11:39 AM WBC 5.74 08/16/2018 10:18 AM WBC 7.24 08/24/2017 03:16 PM WBC 6.75 12/09/2016 01:26 PM WBC 5.26 09/12/2016 01:50 PM Lab Results Component Value Date/Time BUN 16 10/21/2023 05:38 AM BUN 16 10/20/2023 05:11 PM BUN 13 05/18/2023 01:40 PM BUN 17 07/10/2022 11:41 AM BUN 12 12/13/2021 10:04 AM BUN 14 05/07/2020 11:39 AM BUN 14 08/26/2019 11:10 AM BUN 12 08/16/2018 10:18 AM BUN 15 09/07/2017 03:22 PM BUN 17 12/09/2016 01:26 PM Lab Results Component Value Date/Time CREAT 0.7 10/21/2023 05:38 AM CREAT 0.7 10/20/2023 05:11 PM CREAT 0.7 05/18/2023 01:40 PM CREAT 0.7 07/10/2022 11:41 AM CREAT 0.8 12/13/2021 10:04 AM CREAT 0.6 09/25/2021 12:00 AM CREAT 0.7 05/07/2020 11:39 AM CREAT 0.8 08/26/2019 11:10 AM CREAT 0.7 08/16/2018 10:18 AM CREAT 0.8 09/07/2017 03:22 PM CREAT 0.8 12/09/2016 01:38 PM CREAT 0.8 12/09/2016 01:26 PM ANTIMICROBIALS GIVEN (last 28 hours) None Wt Readings from Last 1 Encounters: 10/21/23 110 kg (242 lb 8.1 oz) Levels to date: No results found for: "VANCO", "VANCOPEAK", "VANCORANDOM", "VANCOTROUGH", "GENTPEAK", "GENTRANDOM","GENTTROUGH", "TOBRAPEAK", "TOBRARANDOM", "TOBRATROUGH", "AMIKAPEAK", "AMIKARANDOM", "AMIKATROUGH" Impression: Ramona Stringer is a/an 67 year old female receiving vancomycin therapy. The pharmacokinetic target for therapy is AUC24,SS (range) 400-600mg/L.hr Assessment and Plan: Analysis using [employer] gives the following patient-specific pharmacokinetic parameters: CL: 4.34 L/hr V: 74.2 L T1/2: 12.8 hours At this time we recommend a loading dose of 2750 mg at 22:00 10/21/2023, followed by a regimen of 1250 mg IV every 12 hours, which is predicted to result in a steady-state trough of 16.3 mg/L and AUC24 of 539 mg/L.hr. Recommendations: - Vancomycin 1250 mg IV every 12 hours - Obtain Vancomycin level 10/23 - Continue to monitor serum creatinine Pharmacy will continue to follow and dose as appropriate by renal function, culture results, infectious disease input, and overall clinical status. Contact the Pharmacy at extension [phone] if there are any questions. documented in this encounter H&P Notes * Kim Leonardo MD - 10/21/2023 8:59 PM EST Images from the original note were not included. HISTORY AND PHYSICAL EXAMINATION - Cardiology [address] [address] Name: Ramona Stringer [place] [facility] [id number] Date: 10/21/2023 Time: 8:59 PM PRESENTING PROBLEM: Shortness of breath, lower extremity edema HPI: Ramona Stringer is a 67 year old female with significant history of: Afib s/p atrial ablation on eliquis (which was recently started) HFrEF HTN WILL on CPAP Gout LAYLA Hx of GI hemorrhage Per chart review, patient had initially presented to [facility] with shortness of breath, palpitations and lower extremity edema. Apparently patient was previously on bumex for HF, but was told by her outpatient fabric worker supervisor to discontinue it as she did not require it anymore. After discontinuation, she s tarted to develop progressive symptoms including lower extremity swelling and dyspnea. This was followed by palpitations as well. She was then placed back on bumex, however, her symptoms continued toprogress. Patient was seen in urgent care on 10/20/2023, and was sent to [facility], where she was found to haveafib with RVR for which she received diltiazem 20mg IV and was treated with AoC HFrEF with IV lasix. At [facility], patient started complaining of Left sided abdominal pain and developed a fever. She had aCT A/P completed which did not show any acute abdominal pathology. Patient was empirically started on CTX and azithromycin for possible CAP. Patient was subsequently transferred [place] [facility] [place]. Upon my evaluation, patient is acutely ill. She does not complain of chest pain, nausea, emesis, sore throat, dysuria, hematuria or diarrhea. She continues to endorse sharp, LUQ abdominal pain. Lives at home with her son. Ambulates with a cane. Patient would like to be a FULL CODE during this admission. Prior cardiac studies: TTE report (10/21/2023) Interpretation Summary The examination is adequate to evaluate the referral indication. The qualitative LV ejection fraction is 20-24% (severely reduced). The left ventricular cavity is severely dilated (LVED volume >80 ml/m^2). There is diffuse hypokinesis. The right ventricular cavity is mildly dilated. The right ventricular systolic function is mildly reduced Moderate secondary mitral regurgitation is present. Mild aortic valve regurgitation is present. The aortic root and proximal ascending aorta are mildly enlarged. Dilated IVC with reduced collapsability with sniff indicates an elevated right atrial pressure of 15mmHg. Moderate pulmonary hypertension is present. 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 HTN, goal to be determined Osteoarthrosis, unspecified whether generalized or localized, lower leg Other chronic sinusitis PAF (paroxysmal atrial fibrillation) (HCC) Pure hypercholesterolemia Sleep apnea Systolic CHF (HCC) PAST SURGICAL HISTORY: Past Surgical History: Procedure Laterality Date DELIVERY COLONOSCOPY, DIAGNOSTIC (RECTUM) N/A 06/24/2016 hyperplastic polyp/recall 5 years/COLONOSCOPY FLEXIBLE PROXIMAL DIAGNOSTIC performed by Eden Foreman DO at ENDOSCOPY [facility] CREATE EARDRUM OPENING,LOCAL ANESTH Tympanostomy tubes; cholesteotoma repair EGD, FLEXIBLE, DIAGNOSTIC N/A 06/10/2016 normal/ESOPHAGOGASTRODUODENOSCOPY (EGD), FLEXIBLE, TRANSORAL, DIAGNOSTIC performed by Eden Foreman DO at ENDOSCOPY [facility] EXPLORATION OF ABDOMEN N/A 07/24/2016 EXPLORATORY LAPAROTOMY performed by Eden Hassan DO at OR [facility] PARTIAL REMOVAL OF THYROID LOBE had a lump at age 15-16- assumes it was benign REMOVAL OF SMALL INTESTINE W/FUSION N/A 07/24/2016 ENTERECTOMY SMALL BOWEL RESECTION performed by Eden Hassan DO at OR [facility] REMOVE TONSILS & ADENOIDS, UNDER 12 T & A, age<12 REPAIR OF NASAL SEPTUM ? 2001 Nasal Septum Repair - Dr. Hernández REVISE MIDDLE EAR & MASTOID 12/16/2011 TYMPANOPLASTY MASTOIDECTOMY WITHOUT OSSICULAR RECONSTRUCTION performed by PAULINO MCCARTY at [place] [facility] FAMILY HISTORY: Family History Problem Relation Age of Onset Heart Disorder Mother pacer Hypertension Mother Heart Disorder Father SD Heart Disorder Brother A.fib Mental Disorder Daughter depression Mental Disorder Daughter depression Mental Disorder Daughter depression Heart Disorder Son SOCIAL HISTORY: Social History Tobacco Use Smoking status: Never Passive exposure: Past Smokeless tobacco: Never Tobacco comments: no passive smoke exposures Vaping Use Vaping Use: Never used Substance Use Topics Alcohol use: Not Currently Comment: rarely Drug use: Never ARCHITECTURAL ADMINISTRATIVE ASSISTANT MEDICATIONS: Prior to admission medications have been reviewed. ALLERGIES: Lisinopril, Sudafed [pseudoephedrine], Beta adrenergic blockers, Citalopram, Digoxin, Dulcolax [bisacodyl], Iodinated contrast media, Losartan, Metoprolol, and Sotalol ROS: Pertinent ROS reviewed in [facility], otherwise negative. PHYSICAL EXAMINATION: Admission Vital Signs: BP: 115 mmHg/78 mmHg (10/21/23 2200) Pulse: 139 (10/21/232214) Temp: 38.39 C (10/21/23 2300) Resp: 31 (10/21/232214) SpO2: 95 % (10/21/232214) Physical Exam: Constitutional: In acute distress Derm: Warm, diaphoretic, intact, no visible rash Head/Neck: Normocephalic, atraumatic, trachea midline EENT: EOMI, no scleral icterus, no discharge Respiratory: CTAB, no wheezing, rales, or rhonchi, equal air movement Cardiovascular: Irregularly irregular, tachycardic, no murmurs, radial pulses intact bilaterally Abdomen: Soft, nontender without rebound/guarding, active bowel sounds Musculoskeletal: Moving all extremities, no obvious deformity, no peripheral pitting edema Neurological: A/O x3 no focal neuro deficit appreciated Psychiatric: Normal mood/affect, normal thought process, normal behavior OBJECTIVE DATA: Labs: WBC 9.56 Hb 14.2 PLT 225 Trop 38 -> 41 -> 45 0> 42 BNP 4473 BUN 16 Creat 0.7 Na 140 K 3.6 Mag 2.2 Blood cultures 10/21 - NGTD TSH 1.56 A1c 5.6% LDL 107 HDL 45 UA - small esterase INR 1.3 RVP negative Imaging: CT ABD/PELVIS WO IV/ORAL CONTRAST Result Date: 10/21/2023 IMPRESSION: 1. No acute findings within the abdomen or pelvis. 2. Colonic diverticulosis. No evidence of acute diverticulitis. 3. Small left lower abdominal wall hernia containing loop of small bowelwithout evidence of obstruction. 4. Cholelithiasis without evidence of acute cholecystitis. 5. Small patchy area of consolidation right lower lobe. Cannot exclude pneumonia. 6. Two pulmonary nodules right middle lobe largest which measures 5 mm. Recommend a follow-up CT chest in 6 months for continued surveillance. THIS DOCUMENT HAS BEEN ELECTRONICALLY SIGNED BY LULU LOTT MD XR CHEST 2 VIEWS Result Date: 10/20/2023 IMPRESSION 1. Mildly enlarged cardiac silhouette, new since the prior chest x- ray. The differentialdiagnosis includes cardiomegaly secondary to congestive heart failure or pericardial effusion. Please correlate clinically. 2. Mild pulmonary edema. Probable trace bilateral pleural effusions. IMPRESSION AND PLAN: Ramona Stringer is a 67 year old female with past medical history significant for HFmrEF, Afib s/p ablation, HTN and WILL presenting with worsening dyspnea concerning for acute on chronic HFrEF exacerbation and fever concerning for possible CAP/URTI. Principal Problem: Acute on chronic systolic heart failure (HCC) (POA: Yes) Active Problems: Paroxysmal atrial fibrillation (HCC) (POA: Yes) Atrial fibrillation with rapid ventricular response (HCC) (POA: Yes) Gout of big toe (POA: Yes) Body mass index (BMI) of 40.0 to 44.9 in adult (HCC) (POA: Yes) Fever of unknown origin (POA: Yes) Resolved Problems: * No resolved hospital problems. * POA = Present On Admission Acute on chronic HFrEF exacerbation Patient is noted to have diffuse hypokinesis, with new decreased in LVEF. Unclear what the etiologyis at present, though it may be in the setting of acute infection or tachycardia induced cardiomyopathy. Patient denies chest pain, EKG is without acute ST/T wave deviations and serial troponin are flat, which makes ACS unlikely. - IV lasix 60mg BID - BMP, mag and phos daily. Replete as needed. - Strict Q1H I/Os - Daily weights Afib with RVR Patient has many documented allergies to usual agents for Afib. When these was clarified with the patient, she states her actual allergy is to lisinopril and that other afib agents make her feel uncomfortable, rather a true allergy (resulting in rash or swelling for example). Diltiazem, the only agent she does not have an allergy to, is contra-indicated in the setting of HFrEF. Amiodarone has thepotential of converting back to NSR, which may result in embolic accidents (patient has NOT been oneliquis for >3 weeks). After discussion with the patient, agreeable to start trials of IV lopressor and assess response. Will also control fevers which may be contributing to tachycardia. - IV lopressor 2.5mg for now. Will repeat doses and monitor response. - Start on heparin gtt for afib - Continue ARCHITECTURAL ADMINISTRATIVE ASSISTANT atenolol 25mg daily Sepsis Unclear source, though may be respiratory in origin. Patient does endorse pain in the LUQ of the abdomen, but CT scan in [facility] did not show acute abdominal pathology. - Empiric vanc and zosyn for now - Follow up blood and urine cultures - RVP and MRSA PCR ordered. - Lactate ordered. Chronic conditions: Gout: Patient does not report being on allopurinol ARCHITECTURAL ADMINISTRATIVE ASSISTANT. 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 Recommend a follow-up CT chest in 6 months for continued surveillance. CODE STATUS: Full Code Discussion of adv directives occurred with - adult: Patient EXPECTED DISCHARGE DATE: 2 days or more This patient was discussed with Dr. Chandra Kathleen, barrel burner at the time of admission. Kim Leonardo MD Internal Medicine Resident, PGY2 Associated attestation - Annabel Grimaldo MD - 10/22/2023 4:21 PM EST I saw and evaluated the patient today. I have reviewed the trainee note and agree.Was admitted lateevening yesterday. She has ileus , sepsis Reduced EF is due to demand ischemia Doesn't appear hypervolemic on exam Would get KUB first documented in this encounter Procedure Notes * Te Stein DO - 10/22/2023 12:01 AM ESTAssociated Order(s): EKG REASON FOR STUDY: chestpain CONCLUSIONS: Atrial fibrillation with rapid ventricular response Nonspecific ST and T wave abnormality When compared with ECG of 21-OCT-2023 21:09, (unconfirmed) No significant change was found Ventricular Rate: 136 Atrial Rate: 113 QRS Duration: 98 QT/QTc: 328/493 ms P-R-T Mulino: 0 : 43 : 109 degrees * Te Stein DO - 10/21/2023 9:09 PM ESTAssociated Order(s): EKG REASON FOR STUDY: Chest pain CONCLUSIONS: Atrial fibrillation with rapid ventricular response with premature ventricular or aberrantly conducted complexes Nonspecific ST and T wave abnormality When compared with ECG of 21-OCT-2023 20:41, (unconfirmed) Atrial fibrillation has replaced Sinus rhythm Vent. rate has increased BY 54 BPM Ventricular Rate: 140 Atrial Rate: 300 QRS Duration: 98 QT/QTc: 334/509 ms P-R-T Mulino: 0 : 41 : 92 degrees * Te Stein DO - 10/21/2023 8:41 PM ESTAssociated Order(s): EKG REASON FOR STUDY: ROUTINE CONCLUSIONS: Sinus rhythm with Premature atrial complexes Nonspecific ST and T wave abnormality When compared with ECG of 20-OCT-2023 16:49, (unconfirmed) Premature ventricular complexes are no longer Present Vent. rate has decreased BY 67 BPM QRS duration has decreased Nonspecific T wave abnormality no longer evident in Inferior leads T wave inversion less evident in Anterior-lateral leads Ventricular Rate: 86 Atrial Rate: 86 CA Interval: 152 QRS Duration: 86 QT/QTc: 378/452 ms P-R-T Mulino: 20 : 19 : 97 degrees documented in this encounter Consult Notes * Jyoti Fuentes MD - 10/30/2023 11:32 AM ESTAssociated Order(s): CARDIOLOGY CONSULT IP Images from the original note were not included. CONSULT - Cardiology [facility] [id number] Name: Ramona Stringer Location: [place] [id number] Date: 10/30/2023 Time: 1:45 PM REQUESTING SERVICE: Medicine REASON FOR CONSULT: "AF with RVR/HFrEF" PRESENTING PROBLEM: Ramona Stringer [facility] is seen in consultation for Afib with RVR and HFrEF. HPI: 67 year old female with PMHx pertinent for atrial fibrillation s/p ablation (), HFrEF, WILL on CPAP , HTN, LAYLA who was admitted to Cardiology on 10/21/23 after being transferred from [facility] where she initially presented for the evaluation of shortness of breath, palpitations and lower extremity edema. She was found to be in Afib with RVR at [facility] and treated with IV Diltiazem 20 mg and Lasix. She was transferred to [facility] after she started experiencing left sided abdominal pain, fever and was started on treatment for a suspected underlying infection with sepsis and ileus. Patient was evaluated by Gastroenterology who recommended conservative management of ileus and NG tube decompression but patient was unable to tolerate it and hence declined. She was in Afib with RVRwhich was being managed with IV Lopressor 5 mg Q4H. In addition, she was started on Digoxin to helpcontrol the ventricular response and relieve the congestion due to heart failure. She was then transferred to Medicine service. Hospital course was complicated by colonic distension consistent with acute colonic pseudo-obstruction. Treatment with Neostigmine was attempted but was unsuccessful and patient continued to decline NG tube or colonoscopy for decompression despite being educated about high risk of perforation and possible need for emergent surgery consequently. Patient was again found to be in Afib with RVR and the primary team raised concerns that since the patient will likely not be able to absorb oral medications because of the colonic distention, Cardiology was consulted for further management with IV medications. Patient did receive PRN IV Lopressor 5 mg for HR >120. During my evaluation, patient was resting comfortably in bed. She denied any acute complaints. She stated that at baseline she usually knows when she goes in and out of atrial fibrillation and that her Research Assistant Member at [employer] had recently recommended starting Eliquis. An outpatient ablation was being planned at the end of this month per the history obtained from patient. She denied any active palpitations, light headedness or shortness of breath at the time of my evaluation. Stated that she hasbeen able to get out of bed, go tot he bathroom and come back without any issues. 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 HTN, goal to be determined Osteoarthrosis, unspecified whether generalized or localized, lower leg Other chronic sinusitis PAF (paroxysmal atrial fibrillation) (HCC) Pure hypercholesterolemia Sleep apnea Systolic CHF (HCC) PAST SURGICAL HISTORY: Past Surgical History: Procedure Laterality Date DELIVERY COLONOSCOPY, DIAGNOSTIC (RECTUM) N/A 06/24/2016 hyperplastic polyp/recall 5 years/COLONOSCOPY FLEXIBLE PROXIMAL DIAGNOSTIC performed by Eden Foreman DO at ENDOSCOPY [facility] CREATE EARDRUM OPENING,LOCAL ANESTH Tympanostomy tubes; cholesteotoma repair EGD, FLEXIBLE, DIAGNOSTIC N/A 06/10/2016 normal/ESOPHAGOGASTRODUODENOSCOPY (EGD), FLEXIBLE, TRANSORAL, DIAGNOSTIC performed by Eden Foreman DO at ENDOSCOPY GE EXPLORATION OF ABDOMEN N/A 07/24/2016 EXPLORATORY LAPAROTOMY performed by Eden Hassan DO at OR [facility] PARTIAL REMOVAL OF THYROID LOBE had a lump at age 15-16- assumes it was benign REMOVAL OF SMALL INTESTINE W/FUSION N/A 07/24/2016 ENTERECTOMY SMALL BOWEL RESECTION performed by Eden Hassan DO at OR [facility] REMOVE TONSILS & ADENOIDS, UNDER 12 T & A, age<12 REPAIR OF NASAL SEPTUM ? 2001 Nasal Septum Repair - Dr. Hernández REVISE MIDDLE EAR & MASTOID 12/16/2011 TYMPANOPLASTY MASTOIDECTOMY WITHOUT OSSICULAR RECONSTRUCTION performed by PAULINO MCCARTY at [place] [facility] FAMILY HISTORY: Family History Problem Relation Age of Onset Heart Disorder Mother pacer Hypertension Mother Heart Disorder Father SD Heart Disorder Brother A.fib Mental Disorder Daughter depression Mental Disorder Daughter depression Mental Disorder Daughter depression Heart Disorder Son SOCIAL HISTORY: Social History Tobacco Use Smoking status: Never Passive exposure: Past Smokeless tobacco: Never Tobacco comments: no passive smoke exposures Vaping Use Vaping Use: Never used Substance Use Topics Alcohol use: Not Currently Comment: rarely Drug use: Never ALLERGIES: Lisinopril, Sudafed [pseudoephedrine], Beta adrenergic blockers, Citalopram, Digoxin, Dulcolax [bisacodyl], Iodinated contrast media, Losartan, Metoprolol, and Sotalol ROS: Review of systems is negative for all other systems except those mentioned in the HPI. PHYSICAL EXAMINATION: Most Recent Vital Signs: BP: 111 mmHg/75 mmHg (10/30/23 1400) Pulse: 129 (10/30/23 1400) Temp: 36.89 C (10/30/23 0300) Resp: 20 (10/30/23 1123) SpO2: 98 % (10/30/23 1123) Vital Signs Last 24 Hours: Systolic BP: Most Recent Systolic BP Av.7 mmHg Min: 101 mmHg Max: 153 mmHg Temperature: Most Recent Temperature Av C Min: 36.83 C Max: 37.22 C Pulse: Pulse Av.2 Min: 58 Max: 169 Respirations: Resp Av Min: 20 Max: 20 SpO2: SpO2 Av.2 % Min: 96 % Max: 99 % Physical Exam: General, No acute distress, alert and conversant female HEENT - Normocephalic, atraumatic Cardiovascular, irregularly irregular heart rate, tachycardia, no m/r/c, Respiratory, CTA B/L, no w/r/r, GI, soft, distended, nontender, normo-active bowel sounds, , no suprapubic tenderness MSK, moving all 4 extremities, Neuro, no focal deficits, Skin, warm/dry, no peripheral edema Psych, appropriate mood and affect, Peripheral Line Left;Lower Arm 22 Gauge (Active) Number of days: 1 LABS: Labs reviewed as indicated below: Sodium 139 Potassium 4.5 Creatinine 0.9 Magnesium 2.5 TTE - 10/21/23 Interpretation Summary The examination is adequate to evaluate the referral indication. The qualitative LV ejection fraction is 20-24% (severely reduced). The left ventricular cavity is severely dilated (LVED volume >80 ml/m^2). There is diffuse hypokinesis. The right ventricular cavity is mildly dilated. The right ventricular systolic function is mildly reduced Moderate secondary mitral regurgitation is present. Mild aortic valve regurgitation is present. The aortic root and proximal ascending aorta are mildly enlarged. Dilated IVC with reduced collapsability with sniff indicates an elevated right atrial pressure of 15mmHg. Moderate pulmonary hypertension is present. TTE Report (12/11/2014) CARDIAC THERAPY: Beta blockers: yes IMPRESSION and PLAN: Principal Problem: Acute on chronic systolic heart failure (HCC) (POA: Yes) Active Problems: Paroxysmal atrial fibrillation (HCC) (POA: Yes) Atrial fibrillation with rapid ventricular response (HCC) (POA: Yes) Gout of big toe (POA: Yes) Body mass index (BMI) of 40.0 to 44.9 in adult (HCC) (POA: Yes) Fever of unknown origin (POA: Yes) Ileus, postoperative (HCC) (POA: Unknown) Diarrhea (POA: Unknown) Dilatation of colon (POA: Unknown) Dilated cardiomyopathy (HCC) (POA: Unknown) POA = Present On Admission 67 year old female with PMHx of Atrial fibrillation s/p ablation (2014- [facility]), HFrEF, WILL on CPAP, HTN who was admitted to [facility] after being transferred from [facility] for the evalutaion of afib with RVRin the setting of sepsis due to unclear source and hospital course complicated by ileus and colonicdistension. Patient needs to be managed with IV medications due to concerns for poor absorption of orally administered medications in the setting of colonic distension. Her RVR is likely being triggered by the underlying acute illness and she has refused an NG tube or colonoscopy mediated decompression for management of the colonic distension. Suspect that the reduction in her heart function could be secondary to tachycardia mediated cardiomyopathy , or it could also be long standing since her last TTE was in 2014 (EF 40%). Her heart rate would likely improve once her colonic distension resolves. Afib with RVR HFrEF - Recommend scheduled IV Lopressor 5mg Q6H for round the clock rate control. The frequency can be increased to Q4 hours or even Q2H if needed for better rate control given the short acting nature of IV Lopressor. If adequate response is not achieved, consider increasing the dose to 10 mg also if BPallows (hold paramaters could be SBP< 90 mmHg). - Other agents that can be considered are Esmolol continuous infusion or Amiodarone gtt for rate control rather than rhythm control. - Agree with anticoagulation with Heparin gtt. - Cardiology will continue to follow. Patient was seen and discussed with Dr. Stein, attending physician. Please see attending's attestation for the final recommendations. Jyoti Fuentes MD Internal Medicine PGY-3 Associated attestation - Te Stein DO - 10/30/2023 2:54 PM EST I saw and evaluated the patient today. I have reviewed the trainee note and agree. * Janeth Bucio OTR/Emilee - 10/30/2023 10:51 AM ESTAssociated Order(s): ADULT OCCUPATIONAL THERAPY CONSULT IP; ADULT OCCUPATIONAL THERAPY CONSULT IP GENERAL EVALUATION - Occupational Therapy [facility] [id number] Name: Ramona Stringer Location: [facility] [id number] Date: 10/30/2023 Time: 10:51 AM Ramona Stringer is a 67 year old female. Patient Status: Inpatient Insurance: Payor: Intrinsic-ID Plan: Intr[employer] SECURE 1 AND 3 MC-ND Product Type: *No Product type* Payor: [employer] [place] Plan: [employer] [facility] Product Type: HMO Patient Seen: at bedside, nursing cleared patient for therapy Patient Identified By: Name, ID Band and Date Diagnosis: acute on chronic systolic heart failure (10/30/23 105) Status of treatment: Evaluation completed (10/30/23 105) Orders: OT evaluation and treatment (10/30/231050) Weight Bearing Status: Weight bearing as tolerated (10/30/23 105) Precautions: Falls;Safety (10/30/23 105) Total Treatment Time: 8 (10/30/231050) Past Medical History: 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 HTN, goal to be determined Osteoarthrosis, unspecified whether generalized or localized, lower leg Other chronic sinusitis PAF (paroxysmal atrial fibrillation) (HCC) Pure hypercholesterolemia Sleep apnea Systolic CHF (HCC) Past Surgical History: Past Surgical History: Procedure Laterality Date DELIVERY COLONOSCOPY, DIAGNOSTIC (RECTUM) N/A 06/24/2016 hyperplastic polyp/recall 5 years/COLONOSCOPY FLEXIBLE PROXIMAL DIAGNOSTIC performed by Eden Foreman DO at ENDOSCOPY [facility] CREATE EARDRUM OPENING,LOCAL ANESTH Tympanostomy tubes; cholesteotoma repair EGD, FLEXIBLE, DIAGNOSTIC N/A 06/10/2016 normal/ESOPHAGOGASTRODUODENOSCOPY (EGD), FLEXIBLE, TRANSORAL, DIAGNOSTIC performed by Eden Foreman DO at ENDOSCOPY [facility] EXPLORATION OF ABDOMEN N/A 07/24/2016 EXPLORATORY LAPAROTOMY performed by Eden Hassan DO at OR [facility] PARTIAL REMOVAL OF THYROID LOBE had a lump at age 15-16- assumes it was benign REMOVAL OF SMALL INTESTINE W/FUSION N/A 07/24/2016 ENTERECTOMY SMALL BOWEL RESECTION performed by Eden Hassan DO at OR [facility] REMOVE TONSILS & ADENOIDS, UNDER 12 T & A, age<12 REPAIR OF NASAL SEPTUM ? 2001 Nasal Septum Repair - Dr. Hernández REVISE MIDDLE EAR & MASTOID 12/16/2011 TYMPANOPLASTY MASTOIDECTOMY WITHOUT OSSICULAR RECONSTRUCTION performed by PAULINO MCCARTY at [facility] Social History/Disposition Lives with: Family (son) (10/30/231050) Assistance available: Yes (10/30/231050) Dwelling type: Single story home (10/30/231050) Entry steps: None (10/30/231050) Inside steps: None (10/30/231050) Bedroom location: 1st floor (10/30/231050) Bath location: 1st floor full bath (10/30/231050) Prior Level of Function Reported by: Patient (10/30/231050) Ambulation: Ambulatory without device (10/30/231050) Grooming: Independent (10/30/231050) Bathing: Independent (10/30/231050) Dressing: Independent (10/30/231050) Feeding: Independent (10/30/231050) Toileting: Independent (10/30/231050) Meal Prep: Independent (10/30/231050) Homemaking: Independent (10/30/231050) Shopping: Independent (10/30/231050) Driving: Yes (10/30/231050) Durable Medical Equipment at home: Rolling walker;Straight cane (10/30/231050) Subjective: Pt pleasant and cooperative, agreeable to OT evaluation. Pain: No complaints of pain Observations Consciousness: Alert (10/30/231050) Orientation: Oriented times 4 (10/30/231050) Psychosocial: Patient can communicate basic needs;Patient can converse in a social setting (10/30/231050) Sitting posture: Forward head;Rounded shoulders (10/30/231050) Standing posture: Forward head;Rounded shoulders (10/30/231050) Safety awareness: The Patient verbalizes insight of current deficits. (10/30/231050) Other Findings Endurance: Fair (10/30/231050) Light touch sensation: LUE;RUE;Intact (10/30/231050) Coordination: LUE;RUE;Gross motor;Fine motor;Intact (10/30/231050) Current Functional Status: Bilateral Upper Extremity Range of Motion: WFL (10/30/231050) Strength Assessment: (B 4-/5) (10/30/231050) Dressing Upper Body: Supervision (Please comment) (simulated) (10/30/231050) Lower Body: Supervision (Please comment) (socks) (10/30/231050) Functional Ambulation Assistive Device: (IV pole) (10/30/231050) Distance in feet:: 25 (10/30/231050) Level of Assistance: Supervision (Please Comment) (10/30/231050) OT Transfers Sit-Stand: Supervision (Please comment) (10/30/231050) Stand-Sit: Supervision (Please comment) (10/30/231050) Balance Sit (Static): Fair (10/30/231050) Sit (Dynamic): Fair (10/30/231050) Stand (Static): Fair (10/30/231050) Stand (Dynamic): Fair (10/30/231050) Alarm Status Patient positioned in: Bed (10/30/231050) With: Call nowak in reach (bed alarm not on upon therapist arrival) (10/30/231050) Patient and Family Goals: to get well Patient Education Education Topic: Role of OT;Plan of care goals (10/30/231050) Review of Precautions: Safety;Fall (10/30/231050) Method of Education: Verbalized to patient (10/30/231050) Education Provided to: Patient (10/30/231050) Response to Education: Receptive and agreeable to education (10/30/231050) Barriers to learning: None (10/30/231050) Preferred learning method: Combination (10/30/231050) Treatment Provided: Evaluation Moderate Complexity 8 minutes - [id number]: Patient was cooperative and pleasant during treatment session. Moderate complexity evaluation performed and 3-5 activity limitations were identified, including ADL deficit, functional mobility deficit, decreased strength, decreased endurance, and impaired balance. Minimal or moderate modification of the functional task was necessary to complete the evaluation. Assessment: Pt is a 67 yr old female admitted to the hospital on 10/21 for acute on chronic systolic heart failure. Pt lives with son and completed ADL tasks/IADL tasks and functional mobility with independence. Pt seen for OT evaluation on this date. Pt sitting edge of bed upon therapist arrival. Pt completed simulated UB dressing and LB dressing of socks with supervision. Pt completed sit to stand transfer from bed and functional mobility in room using IV pole with supervision for safety. Pt demonstrated safe transfer techniques. Pt seated on bed with needs met. Pt presents with deficits instrength, balance, endurance, functional transfers, functional mobility, and ADL task completion. Pt would benefit from continued OT to work on strength and endurance in order to maximize independence with self care ADL tasks. When medically appropriate anticipate pt can return home. Please consider home with post-acute care services which may include home health or outpatient therapy. The level of care will be determined in collaboration with the patient, family/caregiver and care team members. Deficits Requiring O.T. Treatment: Deficits requiring O.T. treatment needs: ADL/self-care;Balance;Endurance;Functional mobility;Safety;Upper extremity strength;Weakness (10/30/231050) Goals: ADLs Demonstrate grooming tasks with independence Demonstrate UB dressing task with independence Demonstrate LB dressing task with independence Demonstrate UB bathing task with independence Demonstrate LB bathing task with independence Demonstrate toilet task with modified independence Bed Mobility Demonstrate rolling L and R with modified independence Demonstrate supine to sit with modified independence Demonstrate sit to supine with modified independence Functional Transfers Demonstrate sit to stand transfer with modified independence Demonstrate bed to chair transfer with modified independence Demonstrate transfers onto/off of commode with modified independence Functional Mobility Demonstrate functional mobility for ADL task completion with modified independence using least restrictive device Balance Improve static/dynamic seated balance for ADL task completion to a grading of good Improve static/dynamic standing balance for ADL task completion to a grading of fair + Strength Improve bilateral UE strength by 1/2 grade Goal Time Frame: 8 visits Treatment Plan: Safety, Bed mobility training, Functional Ambulation, Transfer training, Upper extremity strengthening, Balance activities, ADL training, and Endurance Anticipated Frequency (on eval): 1 to 3 times per week (10/30/231050) AM-PAC Help From Another Person Eating Meals: None (10/30/231050) Help From Another Person Taking Care of Personal Grooming: A little (10/30/231050) Help From Another Person To Put On/Take Off Upper Body Clothing: A little (01/05/24 1051) Help From Another Person To Put On/Take Off Lower Body Clothing: A little (10/30/23 105) Help From Another Person Toileting: A little (10/30/23 105) Help From Another Person Bathing: A little (10/30/23 105) OT AM-PAC Score: 19 (10/30/23 105) OT AM-PAC t-Scale Score: 40.22 (10/30/23 105) HLM (Highest Level of Mobility) Goal: Level 7 walk 25 feet or more (10/30/23 0900) A portion of this AM-PAC assessment not scored based on functional assessment; rather clinical decision making utilized based on current findings and/or prior level of function. Please refer to future AM-PAC calculations of functional ability as they become available. * Jovani Grier, PT - 10/29/2023 8:24 AM ESTAssociated Order(s): ADULT PHYSICAL THERAPY CONSULT IP Ramona Stringer [id number] [facility] [place] Physical Therapy PT consult received. Pt currently on PT caseload. Please see ancillary section for updates. * Jovani Grier, PT - 10/28/2023 11:51 AM ESTAssociated Order(s): ADULT PHYSICAL THERAPY CONSULT IP GENERAL EVALUATION - Physical Therapy [address] [address] Name: Ramona Stringer [place] [facility] [place] Date: 10/28/2023 Time: 1151 Ramona Stringer is a/an 67 year old female. Patient Status: Inpatient Insurance: Payor: Intrinsic-ID Plan: Intr[employer] SECURE 1 AND 3 MC-ND Product Type: *No Product type* Payor: [employer] [place] Plan: [employer] [facility] Product Type: HMO Patient Seen: at bedside, nursing cleared patient for therapy Patient Identified By: Name, ID Band and Date Diagnosis: acute on chronic systolic heart failure (10/28/23 115) Status of treatment: Evaluation completed (10/28/23 115) Orders: PT evaluation and treatment (10/28/23 115) Weight Bearing Status: Weight bearing as tolerated (10/28/23 115) Precautions: Falls;Safety (10/28/23 115) Total Treatment Time--free text: 14 (10/28/23 115) Past Medical History: 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 HTN, goal to be determined Osteoarthrosis, unspecified whether generalized or localized, lower leg Other chronic sinusitis PAF (paroxysmal atrial fibrillation) (HCC) Pure hypercholesterolemia Sleep apnea Systolic CHF (HCC) Past Surgical History: Past Surgical History: Procedure Laterality Date DELIVERY COLONOSCOPY, DIAGNOSTIC (RECTUM) N/A 06/24/2016 hyperplastic polyp/recall 5 years/COLONOSCOPY FLEXIBLE PROXIMAL DIAGNOSTIC performed by Eden Foreman DO at [facility]COPY [facility] CREATE EARDRUM OPENING,LOCAL ANESTH Tympanostomy tubes; cholesteotoma repair EGD, FLEXIBLE, DIAGNOSTIC N/A 06/10/2016 normal/ESOPHAGOGASTRODUODENOSCOPY (EGD), FLEXIBLE, TRANSORAL, DIAGNOSTIC performed by Eden Foreman DO at [facility] EXPLORATION OF ABDOMEN N/A 07/24/2016 EXPLORATORY LAPAROTOMY performed by Eden Hassan DO at OR [facility] PARTIAL REMOVAL OF THYROID LOBE had a lump at age 15-16- assumes it was benign REMOVAL OF SMALL INTESTINE W/FUSION N/A 07/24/2016 ENTERECTOMY SMALL BOWEL RESECTION performed by Eden Hassan DO at OR [facility] REMOVE TONSILS & ADENOIDS, UNDER 12 T & A, age<12 REPAIR OF NASAL SEPTUM ? 2001 Nasal Septum Repair - Dr. Hernández REVISE MIDDLE EAR & MASTOID 12/16/2011 TYMPANOPLASTY MASTOIDECTOMY WITHOUT OSSICULAR RECONSTRUCTION performed by PAULINO MCCARTY [place] [facility] Subjective: Pt awake in chair, agreeable to PT. Social History/Disposition Lives with: Family (son) (10/28/23 115) Assistance available: Yes (10/28/23 115) Dwelling type: Single story home (10/28/23 115) Entry steps: None (10/28/231150) Inside steps: None (10/28/231150) Bedroom location: 1st floor (10/28/231150) Bath location: 1st floor full bath (10/28/231150) Prior Level of Function Reported by: Patient (10/28/231150) Ambulation: Ambulatory without device (10/28/231150) Devices at home: Straight cane;Rolling walker (10/28/231150) Observations Consciousness: Alert (10/28/231150) Orientation: Oriented times 4 (10/28/231150) Psychosocial: Patient can communicate basic needs;Patient can converse in a social setting (10/28/231150) Other Findings: Yes (10/28/231150) Findings: Light touch sensation (10/28/231150) Light Touch Sensation Results: Intact;LLE;RLE (10/28/231150) Sitting Posture: Forward head;Rounded shoulders (10/28/231150) Standing Posture: Forward head;Rounded shoulders (10/28/231150) Pain: No complaints of pain Range of Motion Range of Motion: WFL (10/28/231150) Strength Assessment Strength Assessment: Deficits noted (10/28/231150) WNL, except: LLE;RLE (10/28/231150) LLE: Hip;Knee;Ankle;4/5 (10/28/231150) RLE: Hip;Knee;Ankle;4/5 (10/28/231150) Transfers Sit-Stand: Supervision (10/28/231150) Stand-Sit: Supervision (10/28/231150) Ambulation: Distance ambulated (feet): 25 Assistive Device: No device (IV pole) Assist: Contact Guard Balance Sit (Static): Fair (10/28/231150) Sit (Dynamic): Fair (10/28/231150) Stand (Static): (Fair -) (10/28/231150) Stand (Dynamic): (Fair -) (10/28/231150) Patient and or Family Goal(s): to get well and to return home Patient Education Review of Precautions: Safety;Fall (10/28/231150) Safety Awareness: Patient verbalizes insight of current deficits;Patient demonstrates carryover of insight during functional tasks;Patient can communicate basic needs (10/28/231150) Preferred learning method: Combination (10/28/231150) Barriers to learning: Medical Status (10/28/231150) Method of Education: Verbalized to patient;Patient demonstrated task (10/28/231150) Topic of Education: Safety with mobility, Goals/plan of care, and Fall prevention Method of Education: Verbal discussion and explanation provided to pt: verbalized understanding andor agreement of this information and demonstrated the exercise and or task Treatment Provided: Evaluation Moderate Complexity 14 minutes - [id number]: Patient was cooperative during treatment session. Moderate complexity evaluation performed and 1-2 personal factors or comorbidities were identified that will impact plan of care, including cardiac history. Patient presents withlimitations in strength, bed mobility, transfers, gait, balance, endurance, and safety, which will impact plan of care. These limitations will be addressed by the goals set for this patient. Alarm Status Patient positioned in: Chair (10/28/231150) With: Call nowak in reach (no alarms present upon entering) (10/28/231150) Goals: Demonstrate Bed Mobility with: supervision Demonstrate Transfers with: modified independent Demonstrate Ambulation: least restrictive device, 100 ft with modified independent Increase Strength of: B/L LE by 1/2-1 muscle grade Increase dynamic standing balance to: fair + Increase Safety: with all functional mobility Time Frame: 8 visits Assessment: Pt is a 67 year old female presenting with acute on chronic systolic heart failure. Pt alert and oriented x4, following all commands throughout session. Pt demonstrated fair, symmetrical B/L LE strength/ROM and intact sensation. Pt performed sit to stand transfer with only verbal cues to push up through armrests of the chair. Pt ambulated in the room while holding on to the IV pole, demonstrating decreased step length/height and a slight anterior trunk lean. Please consider home with post-acute care services which may include home health or outpatient therapy. The level of care will be determined in collaboration with the patient, family/caregiver and care team members. All needs met. Deficits requiring P.T. treatment needs: Safety;Mobility;Balance;Weakness;Endurance;Lower extremitystrength (10/28/231150) Equipment Needs: Equipment needs: (TBD) (01/03/24 1151) Treatment Plan: Bed mobility training, Transfer training, Gait training, Strengthening exercises: B/L LE, Balance activities, and Educate on safety with functional mobility Anticipated Frequency (on eval): 1 to 3 times per week (10/28/23 1151) AM PAC Score with Stairs: 18 A portion of this AM-PAC assessment not scored based on functional assessment; rather clinical decision making utilized based on current findings and/or prior level of function. Please refer to future AM-PAC calculations of functional ability as they become available. * Taylor Pereira, DO - 10/23/2023 2:20 PM ESTAssociated Order(s): GASTROENTEROLOGY CONSULT IP CONSULT - [place]enter[place] [facility] [id number] Name: Ramona Stringer [place] [facility] [place] [facility] Date: 10/23/2023 Time: 2:20 PM REQUESTING SERVICE: Cardiology REASON FOR CONSULT: "ileus" HPI: Ramona Stringer is a 67 year old female with hx of atrial fibrillation status post atrial ablation on Eliquis, now on heparin infusion while in the hospital,HFrEF (less than 30%), , hypertension, WILL on CPAP, gout, presenting to [place] for shortness of breath, palpitations and lower extremity edema. She is found to be in AFib with RVR and acute on chronic heart failure exacerbation and also started on ceftriaxone and azithromycin for possible community-acquired pneumonia. She was subsequently transferred to [facility] for further care to cardiology service. She is normally independent at home and ambulates with a cane. She lives at home with her son. In 2016, sheunderwent small-bowel resection [facility] jejunal [facility]. GI asked to evaluate for ileus. Patient seen and examined at bedside after undergoing HIDA scan to rule out acute cholecystitis. She had been complaining of mild right upper quadrant tenderness and was fixated on her gallbladder. She states that she sometimes get distended at home particularly in the evening. But she is significantly more distended than prior. KUB obtained yesterday showing 9 cm dilation of large bowel. She is still having active bowel movements that are mostly watery. She is currently NPO. Nurse attempted toplace NG tube, but patient was not able to tolerate it in her left nostril, only passed about 10 cm. 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 HTN, goal to be determined Osteoarthrosis, unspecified whether generalized or localized, lower leg Other chronic sinusitis PAF (paroxysmal atrial fibrillation) (HCC) Pure hypercholesterolemia Sleep apnea Systolic CHF (HCC) Past Surgical History: Past Surgical History: Procedure Laterality Date DELIVERY COLONOSCOPY, DIAGNOSTIC (RECTUM) N/A 06/24/2016 hyperplastic polyp/recall 5 years/COLONOSCOPY FLEXIBLE PROXIMAL DIAGNOSTIC performed by Eden Foreman DO at ENDOS[facility] CREATE EARDRUM OPENING,LOCAL ANESTH Tympanostomy tubes; cholesteotoma repair EGD, FLEXIBLE, DIAGNOSTIC N/A 06/10/2016 normal/ESOPHAGOGASTRODUODENOSCOPY (EGD), FLEXIBLE, TRANSORAL, DIAGNOSTIC performed by Eden Foreman DO at ENDOSCOPY [facility] EXPLORATION OF ABDOMEN N/A 07/24/2016 EXPLORATORY LAPAROTOMY performed by Eden Hassan DO at OR [facility] PARTIAL REMOVAL OF THYROID LOBE had a lump at age 15-16- assumes it was benign REMOVAL OF SMALL INTESTINE W/FUSION N/A 07/24/2016 ENTERECTOMY SMALL BOWEL RESECTION performed by Eden Hassan DO at OR [facility] REMOVE TONSILS & ADENOIDS, UNDER 12 T & A, age<12 REPAIR OF NASAL SEPTUM ? 2001 Nasal Septum Repair - Dr. Hernández REVISE MIDDLE EAR & MASTOID 12/16/2011 TYMPANOPLASTY MASTOIDECTOMY WITHOUT OSSICULAR RECONSTRUCTION performed by PAULINO MCCARTY [place] [facility] Social History: Social History Tobacco Use Smoking status: Never Passive exposure: Past Smokeless tobacco: Never Tobacco comments: no passive smoke exposures Vaping Use Vaping Use: Never used Substance Use Topics Alcohol use: Not Currently Comment: rarely Drug use: Never Family History: Family History Problem Relation Age of Onset Heart Disorder Mother pacer Hypertension Mother Heart Disorder Father SD Heart Disorder Brother A.fib Mental Disorder Daughter depression Mental Disorder Daughter depression Mental Disorder Daughter depression Heart Disorder Son Allergies: Lisinopril, Sudafed [pseudoephedrine], Beta adrenergic blockers, Citalopram, Digoxin, Dulcolax [bisacodyl], Iodinated contrast media, Losartan, Metoprolol, and Sotalol ROS: Reviewed, negative except as above. PHYSICAL EXAMINATION: Most Recent Vital Signs: BP: 131 mmHg/73 mmHg (10/23/23 1400) Pulse: 119 (10/23/23 1400) Temp: 36.78 C (10/23/23 1200) Resp: 23 (10/23/23 1400) SpO2: 94 % (10/23/23 1400) Vital Signs Last 24 Hours: Systolic BP: Most Recent Systolic BP Av.3 mmHg Min: 86 mmHg Max: 131 mmHg Temperature: Most Recent Temperature Av C Min: 36.5 C Max: 37.5 C Pulse: Pulse Av.8 Min: 106 Max: 158 Respirations: Resp Av.1 Min: 17 Max: 39 SpO2: SpO2 Av % Min: 85 % Max: 96 % General: Patient is awake, alert, oriented x 3, and in no acute distress Head and face: normocephalic and atraumatic Eyes: PERRLA; no scleral icterus; normal lids Neck: Supple. Good ROM Heart: RRR, S1 and S2 audible. No murmurs appreciated Respiratory: CTA. No wheezes, equal and bilateral chest rise Abdomen: Soft, minimally tender in RUQ. Extremities: No cyanosis, or clubbing. + 1-2 LE edema Skin: Warm, dry, intact. Neuro: Alert and oriented x 3. Speech appropriate, moves all extremities. Last Bowel Movement: 10/23/23 (10/23/23 1100) Stool Description: Small;Liquid;Loose;Brown (10/23/23 1100) LABS: Reviewed in [facility] Lab results within last 7 days (see chart for full results) Units 10/23/23 0647 10/22/23 0530 10/21/23 2340 Sodium mmol/L 136 137 134* Potassium mmol/L 3.6 3.6 3.9 Chloride mmol/L 98 99 97* CO2 mmol/L 23 BUN mg/dL 27* 19 18 Creatinine mg/dL 1.2* 0.9 0.9 Lab results within last 7 days (see chart for full results) Units 10/23/23 0647 10/22/23 0530 10/21/23 2340 HGB g/dL 14.9 14.1 15.2 HCT % 45.1 44.2 46.0* WBC K/uL 7.30 9.67 10.59 PLT K/uL 228 195 223 IMAGES: Reviewed in [facility] NM HEPATOBILIARY SYSTEM Narrative: EXAM NM HEPATOBILIARY SYSTEM - 10/23/2023 1:33 pm HISTORY RUQ pain COMPARISON CT abdomen/pelvis dated 10/21/2023 TECHNIQUE Following the intravenous administration of 6.0 mCi of Tc-99m mebrofenin (Choletec), dynamic imaging of the right upper quadrant was performed in the anterior projection. FINDINGS Prompt uptake of radiotracer seen throughout the hepatic parenchyma. The central biliary ducts and the common bile duct are visualized. The gallbladder begins to fill at 6 minutes, and small bowel activity is seen at 56 minutes. Impression: IMPRESSION Patent cystic and common bile ducts; no scintigraphic evidence of acute cholecystitis. I have personally reviewed this examination and agree with the resident/fellow physician's interpretation. XR ABDOMEN 1 VIEW Narrative: EXAM XR ABDOMEN 1 VIEW - 10/23/2023 7:41 am HISTORY R/O Obstruction COMPARISON: Abdominal radiographs from yesterday TECHNIQUE Three radiographs of the abdomen and pelvis are submitted. FINDINGS Catheters/tubes/devices/foreign bodies: None. The lung bases are clear. Numerous loops of air distended bowel extend to the rectum. The osseous structures are unremarkable. Impression: IMPRESSION Diffuse ileus bowel gas pattern unchanged. No free air detected on my review. Large bowel measuring 9 cm. ENDOSCOPIC Hx: Reviewed in [facility] Relevant for multiple polyps in ascending colon that were resected and retrieved on prior colonoscopy, and video capsule endoscopy likely for visualization of small bowel tumor that was then resected IMPRESSION: Ramona Stringer is a 67 year old female with hx of atrial fibrillation status post atrial ablation on Eliquis, now on heparin infusion while in the hospital,HFrEF (less than 30%), , hypertension, WILL on CPAP, gout, presenting to [place] for shortness of breath, palpitations and lower extremity edema. She is found to be in AFib with RVR and acute on chronic heart failure exacerbation, and being treated for pneumonia, causing sepsis. Staff attempted to place NG tube, but patient was not able to tolerate it. Electrolytes overall normal. She is currently NPO. She is currently having watery bowel movements and passing gas. RECOMMENDATIONS/PLAN: Recommend continuing conservative management Serial monitoring Continue NPO status Consider providing patient with anxiolytic, and replace NG tube to allow for decompression Turn and reposition patient every 2 hours, even in bed Already being monitored for electrolytes and being appropriately repleted Currently being treated for sepsis which can sometimes contribute ileus Avoid opioids and anticholinergic medications GI will sign off. Thank you for this consult. Please page if further questions. I discussed the case with my attending, Dr. Wong. Associated attestation - Renetta Wong MD - 10/23/2023 5:19 PM EST I saw and evaluated the patient today. I have reviewed the trainee note and agree. Typically, ileus are managed conservatively. Would recommend repleting electrolytes, avoiding opioids/anticholinergics, NGT, rectal tube, and moving/repositioning the patient (ideally OOBC or moving in the bed every 2-4 hrs). Plan discussed with Employment Case Manager. documented in this encounter Nursing Notes * Clay Duvall RN - 10/28/2023 2:14 AM EST 0200- syrup mixer assistant answered pt call nowak. Pt distressed about bed alarms and feels she doesn'tneed them. Despite being educated on fall risk, she is refusing bed alarms at this time. * Char Cortes RN - 10/27/2023 1:26 PM EST 1200 Blood pressure 118/83, pulse 108, temperature 36.8 C (98.3 F), temperature source Tympanic, resp. rate 18, height 1.676 m (5' 5.98"), weight 101.9 kg (224 lb 10.4 oz), SpO2 95%. Patient AAOx4. VSS. Patient has no c/o pain or SOB at this time. Lungs diminished bilaterally on RA. Heparin gtt running therapeutic at 17units/hr. Call nowak in reach. See flowsheet for further assessments. * Nishi Haro RN - 10/26/2023 7:21 PM EST Yudy attempted to walk per request to help promote GI motility. Pt was unable to tolerate walking, was able to take a few steps with assistance of rolling walker but felt very weak and needed to return to bed. Contacted primary team, Dr. Owen Fontanez to place PT/OT orders to evaluate patient'smobility status and capabilities. * Monalisa Aguilar RN - 10/22/2023 7:24 AM EST Dual Licensed Skin Assessment completed by Monalisa Aguilar RN and Wilda Luong RN. The patient is/has a N/A Skin Breakdown (includes non blanchable erythema): No ' * Monalisa Aguilar RN - 10/22/2023 4:15 AM EST Per physician, patient was to remain on bedrest due to unstable vitals. Patient repeatedly attempted to get out of bed. Patient became aggressive when RN X2 would not assist her out of bed. Patient was educated on the danger of getting out of bed, including worsening rate and rhythm. I called Dr. Kim Leonardo to the bedside. He gave the patient permission to get up to the bedside commode. Patientreturned to bed after using the bedside with HR rate 130-150. documented in this encounter Miscellaneous Notes * Care Plan - Deedee Guzman LPN - 11/03/2023 12:28 AM EST Clinical Goal(s): pt will remain free from injuries (11/02/23 1700) Possible barriers to meeting goal(s)/advancing plan of care: none Stability of the patient: Moderately stable - low risk of patient condition declining or worsening Summary regarding today's goal(s): Met: Recommendations: continue with care plan goal * Ancillary Progress Note - Merna Iraheta RDN - 11/02/2023 7:54 PM EST CLINICAL NUTRITION ADULT RISK ASSESSMENT [address] [address] Name: Ramona Stringer [place] [facility] [place] [facility] Date: 11/02/2023 Time: 7:54 PM How patient was identified (select 2): Medical record number and Name Ramona Stringer is a 67 year old female being assessed for clinical nutrition risk related to follow-up Primary diagnosis: Shortness of breath, lower extremity edema Other pertinent information: Diet advanced to easy to chew diet. Patient reports good appetite. 75-100% meal consumption documented. Denies N/V and abdominal discomfort. Last BM was on 10/31. Anthropometrics Measurements Admission weight (for dietitians): 110 kg (242 lb 8.1 oz) Height: 167.6 cm (5' 5.98") (10/24/23 0400) Weight: 105.7 kg (233 lb) (11/02/23 0600) BMI: 38.06 (10/24/23 0400) Usual Body Weight or EDW for Dialysis Patients: 104-107 kg per EHR Diet: Easy to Chew Previously followed diet: Regular Food Allergies/Intolerances: None Pertinent medications/vitamins/minerals/supplements: Reviewed RISK FACTORS: Adult Energy Intake: No significant decrease Interpretation of Weight Change: Greater than 2% weight loss in 1 week (Severe) - Likely due to fluids. will monitor for trends. Current BW with UBW range Skin: Intact NUTRITION RISK CATEGORY: Nutrition Risk Category: Low/Moderate (0-1 factors) Clinical Nutrition Recommendations: Diet: Continue current nutrition plan NUTRITION INTERVENTION/PLAN: Continue current care plan Will follow and adjust nutritional plan as medical condition requires. Please contact for change(s)in patient condition requiring earlier intervention. Merna Iraheta MS, RDN, LDN Clinical Dietitian [facility] [place] text * Ancillary Progress Note - Ramona Flowers RN - 11/02/2023 2:15 PM EST CARE MANAGEMENT - ADULT TRANSITION NOTE [address] [address] Name: Ramona Stringer [place] [facility] [place] [facility] Date: 11/02/2023 Time: 2:15 PM Risk Stratification Risk Stratification OBRA or OPTIONS needed for placement: No (10/22/23 0959) Readmission Risk Score: 11.05 (11/02/23 1200) AM-PAC Score With Stairs : 19 (11/01/23 1100) Caregiver Information Patient Contacts Name Relation Home Work Mobile Tobi Thurman Adult Child [phone] Kushal Hodgson Adult Child [phone] Narrative: Per discussion with Dr. Lombardo, pt continues to refuse conventional medical care for colonic pseudo-obstruction and is only accepting of hypokalemia repletion with oral meds. Continue to monitor. Anticipated Transportation at Discharge: self Patient/Family Expectations: Home, no needs, [facility] Additional Considerations: Care Management will continue to monitor and assist with discharge planning needs * Care Plan - Yaneth Hwang RN - 11/02/2023 5:09 AM EST Clinical Goal(s): Pt will remain free from falls/injury throughout shift (11/01/23 2300) Possible barriers to meeting goal(s)/advancing plan of care: weakness Stability of the patient: Moderately stable - low risk of patient condition declining or worsening Summary regarding today's goal(s): Met: met Recommendations: continue fall precautions and encourage use of call nowak for assistance Problem: Decreased Cardiac Output Goal: Patient will have improved cardiac output. 11/02/2023 0509 by Yaneth Hwang RN Outcome: Progressing Problem: Alteration in Fluid Balance Goal: Patient will achieve & maintain optimal fluid balance. 11/02/2023508 by Yaneth Hwang RN Outcome: Progressing Problem: Ineffective Breathing Pattern Goal: Patient will achieve & maintain effective breathing pattern. 11/02/2023508 by Yaneth Hwang RN Outcome: Progressing Problem: Activity Intolerance & Impaired Mobility Goal: Patient will maintain optimal mobility & activity level. 11/02/2023508 by Yaneth Hwang RN Outcome: Progressing Problem: Knowledge Deficit Goal: Patient & caregiver will demonstrate understanding. 11/02/2023508 by Yaneth Hwang RN Outcome: Progressing Problem: Pain & Impaired Comfort Goal: Patient's pain & discomfort is manageable. 11/02/2023508 by Yaneth Hwang RN Outcome: Progressing Problem: Safety & Risk for Injury Goal: Patient will remain free from injury. 11/02/2023508 by Yaneth Hwang RN Outcome: Progressing Problem: Daily Care & Potential Self-Care Deficit Goal: Patient's daily care needs are met. 11/02/2023508 by Yaneth Hwang RN Outcome: Progressing Problem: Risk for Impaired Physical Mobility Goal: Patient will maintain optimal mobility level. 11/02/2023508 by Yaneth Hwang RN Outcome: Progressing Problem: Knowledge Deficit Goal: Patient & caregiver will demonstrate understanding. 11/02/2023508 by Yaneth Hwang RN Outcome: Progressing * Care Plan - Yaneth Hwang RN - 11/01/2023 5:22 AM EST Clinical Goal(s): Pt will remain free from falls throughout shift (11/01/23 0000) Possible barriers to meeting goal(s)/advancing plan of care: weakness Stability of the patient: Moderately stable - low risk of patient condition declining or worsening Summary regarding today's goal(s): Met: met Recommendations: continue to follow fall precautions and encourage use of call nowak for assistance. Problem: Decreased Cardiac Output Goal: Patient will have improved cardiac output. 11/01/2023521 by Yaneth Hwang RN Outcome: Progressing Problem: Alteration in Fluid Balance Goal: Patient will achieve & maintain optimal fluid balance. 11/01/2023521 by Yaneth Hwang RN Outcome: Progressing Problem: Ineffective Breathing Pattern Goal: Patient will achieve & maintain effective breathing pattern. 11/01/2023521 by Yaneth Hwang RN Outcome: Progressing Problem: Activity Intolerance & Impaired Mobility Goal: Patient will maintain optimal mobility & activity level. 11/01/2023521 by Yaneth Hwang RN Outcome: Progressing Problem: Knowledge Deficit Goal: Patient & caregiver will demonstrate understanding. 11/01/2023521 by Yaneth Hwang RN Outcome: Progressing Problem: Pain & Impaired Comfort Goal: Patient's pain & discomfort is manageable. 11/01/2023521 by Yaneth Hwang RN Outcome: Progressing Problem: Safety & Risk for Injury Goal: Patient will remain free from injury. 11/01/2023521 by Yaneth Hwang RN Outcome: Progressing Problem: Daily Care & Potential Self-Care Deficit Goal: Patient's daily care needs are met. 11/01/2023521 by Yaneth Hwang RN Outcome: Progressing Problem: Risk for Impaired Physical Mobility Goal: Patient will maintain optimal mobility level. 11/01/2023521 by Yaneth Hwang RN Outcome: Progressing Problem: Knowledge Deficit Goal: Patient & caregiver will demonstrate understanding. 11/01/2023521 by Yaneth Hwang RN Outcome: Progressing * Care Plan - Yaneth Hwang RN - 10/31/2023 4:42 AM EST Clinical Goal(s): Pt will remain free from falls throughout shift (10/30/23 2300) Possible barriers to meeting goal(s)/advancing plan of care: weakness Stability of the patient: Moderately stable - low risk of patient condition declining or worsening Summary regarding today's goal(s): Met: met Recommendations: continue fall precautions and encourage use of call nowak for assistance Problem: Decreased Cardiac Output Goal: Patient will have improved cardiac output. 10/31/2023441 by Yaneth Hwang RN Outcome: Progressing Problem: Alteration in Fluid Balance Goal: Patient will achieve & maintain optimal fluid balance. 10/31/2023441 by Yaneth Hwang RN Outcome: Progressing Problem: Ineffective Breathing Pattern Goal: Patient will achieve & maintain effective breathing pattern. 10/31/2023441 by Yaneth Hwang RN Outcome: Progressing Problem: Activity Intolerance & Impaired Mobility Goal: Patient will maintain optimal mobility & activity level. 10/31/2023441 by Yaneth Hwang RN Outcome: Progressing Problem: Knowledge Deficit Goal: Patient & caregiver will demonstrate understanding. 10/31/2023441 by Yaneth Hwang RN Outcome: Progressing Problem: Pain & Impaired Comfort Goal: Patient's pain & discomfort is manageable. 10/31/2023441 by Yaneth Hwang RN Outcome: Progressing Problem: Safety & Risk for Injury Goal: Patient will remain free from injury. 10/31/2023441 by Yaneth Hwang RN Outcome: Progressing Problem: Daily Care & Potential Self-Care Deficit Goal: Patient's daily care needs are met. 10/31/2023441 by Yaneth Hwang RN Outcome: Progressing * Ancillary Progress Note - Arlette Garcia PTA - 10/30/2023 3:01 PM EST PROGRESS NOTE - Physical Therapy [address] [address] Name: Ramona Stringer [place] [facility] [place] [facility] Date: 10/30/2023 Time: 3:01 PM Ramona Stringer is a/an 67 year old female. Patient Status: Inpatient Insurance: Payor: Intrinsic-ID Plan: Intrinsic-ID SECURE 1 AND 3 MC-ND Product Type: *No Product type* Payor: [employer] ANNETTE Plan: [employer] [facility] Product Type: HMO Patient Seen: at bedside, nursing cleared patient for therapy Patient Identified By: Name, ID Band and Date Diagnosis: acute on chronic systolic heart failure (10/30/23 1501) Status of treatment: Treatment completed (10/30/23 1501) Orders: PT evaluation and treatment (10/30/23 150) Weight Bearing Status: Weight bearing as tolerated (10/30/23 150) Precautions: Falls;Safety (10/30/231500) Total Treatment Time--free text: 33 (10/30/23 150) Subjective: patient agreeable Pain: Patient has complaints of pain. Pain located L UE and R LE. RN aware P.T. Bed Mobility Supine-Sit: Supervision (10/30/23 150) Sit-Supine: Supervision (10/30/23 150) Transfers Sit-Stand: Supervision (10/30/23 150) Stand-Sit: Supervision (10/30/23 150) Ambulation: Distance ambulated (feet): 225 and 20x2 feet Assistive Device: No device (IV pole) Assist: Contact Guard Balance Sit (Static): Fair (10/30/23 150) Sit (Dynamic): Fair (10/30/23 150) Stand (Static): Fair (10/30/23 150) Stand (Dynamic): Fair (-) (10/30/23 150) Patient and or Family Goal(s): to get well Topic of Education: Safety with mobility Extremity Exercise Supine: Hip;Knee;Ankle (10/30/23 150) Hip : Bilateral LE;Flexion;1 set of 10 (10/30/23 150) Knee : Bilateral LE;Heel slide;1 set of 10 (10/30/23 150) Ankle: Bilateral LE;Plantar flexion;Dorsiflexion;2 sets of 10 (10/30/23 150) Method of Education: Verbal discussion and explanation provided to patient: verbalized understanding and or agreement of this information Treatment Provided: Therapeutic Activities 20 minutes: bed mobility training transfer training Gait Training 10 minutes: gait training with no device and IV pole for stability Alarm Status Patient positioned in: Chair (10/30/23 150) With: Call nowak in reach (no alarm upon arrival) (10/30/231500) Following session patient seated OOB in chair with chair alarm activated. Chair alarm (did not havecord to plug into call nowak system and/or room did not have port to plug cord into call nowak system). Patient's nurse was made aware. Patient Education Review of Precautions: Safety;Fall (10/30/23 1501) Safety Awareness: Patient verbalizes insight of current deficits;Patient demonstrates carryover of insight during functional tasks;Patient can communicate basic needs (10/30/23 1501) Assessment: Upon arrival patient supine in bed. Patient performed bed mobility requiring supervision. Patient performed a sit to stand/stand to sit transfer x3 from varius surfaces. Patient [id number] feet to the bathroom requiring contact guard assistance. Patient then ambulated 20 feet to the edge of bed to don a gown. Patient then ambulated 225 feet requiring contact guard assistance, using IV pole for support. Patient performed therapeutic exercises to increase strength. Patient had complaints of pain in her R LE and L LUPILLO, RN made aware. Please consider home with post-acute care services which may include home health or outpatient therapy. The level of care will be determined in collaboration with the patient, family/caregiver and care team members. Deficits requiring P.T. treatment needs: Safety;Mobility;Balance;Weakness;Endurance;Lower extremitystrength (10/30/23 150) Plan: Continue with current treatment plan established on evaluation. AM PAC Score with Stairs: 19 A portion of this AM-PAC assessment not scored based on functional assessment; rather clinical decision making utilized based on current findings and/or prior level of function. Please refer to future AM-PAC calculations of functional ability as they become available. * Ancillary Progress Note - Janeth Bucio OTR/Emilee - 10/30/2023 9:24 AM EST Ramona Stringer [id number] 67 year old [facility] [place] [facility] Occupational Therapy OT consult received. Attempted to see pt for OT evaluation, however pt unavailable, secondary to being off the floor at x-ray at this time. Will complete OT evaluation as able and appropriate. * Care Plan - Yaneth Hwang RN - 10/30/2023 5:50 AM EST Clinical Goal(s): Pt will remain free from falls throughout shift (10/29/23 2300) Possible barriers to meeting goal(s)/advancing plan of care: weakness Stability of the patient: Moderately stable - low risk of patient condition declining or worsening Summary regarding today's goal(s): Met: met Recommendations: continue fall precautions and encourage use of call nowak for assistance. Problem: Decreased Cardiac Output Goal: Patient will have improved cardiac output. 10/30/2023 0550 by Yaneth Hwang RN Outcome: Progressing 10/30/202337 by Yaneth Hwang RN Outcome: Progressing 10/29/20232034 by Yaneth Hwang RN Outcome: Progressing Problem: Alteration in Fluid Balance Goal: Patient will achieve & maintain optimal fluid balance. 10/30/2023 0550 by Yaneth Hwang RN Outcome: Progressing 10/30/202337 by Yaneth Hwang RN Outcome: Progressing 10/29/20232034 by Yaneth Hwang RN Outcome: Progressing Problem: Ineffective Breathing Pattern Goal: Patient will achieve & maintain effective breathing pattern. 10/30/2023 0550 by Yaneth Hwang RN Outcome: Progressing 10/30/202337 by Yaneth Hwang RN Outcome: Progressing 10/29/20232034 by Yaneth Hwang RN Outcome: Progressing Problem: Pain & Impaired Comfort Goal: Patient's pain & discomfort is manageable. 10/30/2023 0550 by Yaneth Hwang RN Outcome: Progressing 10/30/202337 by Yaneth Hwang RN Outcome: Progressing 10/29/20232034 by Yaneth Hwang RN Outcome: Progressing Problem: Pain & Impaired Comfort Goal: Patient's pain & discomfort is manageable. 10/30/2023 0550 by Yaneth Hwang RN Outcome: Progressing Problem: Safety & Risk for Injury Goal: Patient will remain free from injury. 10/30/202350 by Yaneth Hwang RN Outcome: Progressing Problem: Knowledge Deficit Goal: Patient & caregiver will demonstrate understanding. 10/30/202350 by Yaneth Hwang RN Outcome: Progressing Problem: Discharge Barriers Goal: Patient's discharge needs are met. 10/30/202350 by Yaneth Hwang RN Outcome: Progressing Problem: Actual & Potential for Falls Goal: Patient will remain free of falls. 10/30/2023 0550 by Yaneth Hwang RN Outcome: Progressing * Care Plan - Clay Duvall RN - 10/28/2023 11:42 PM EST Clinical Goal(s): Pt will remain hemodynamically stable this shift (10/28/23 2300) Possible barriers to meeting goal(s)/advancing plan of care: acuity Stability of the patient: Moderately stable - low risk of patient condition declining or worsening Summary regarding today's goal(s): Met: Recommendations: Continue to monitor for worsening symptoms and signs of clinical decline * Communication - Jameson Martinez DO - 10/28/2023 11:07 AM EST GI Brief Communication Abdominal X ray from 10/28/23 reviewed IMPRESSION Diffuse colonic dilatation, slightly improved from 10/27/2023. GI to sign off at this time, please call back with any concerns Jameson Martinez DO Gastroenterology and Hepatology Fellow * Ancillary Progress Note - Merna Iraheta RDN - 10/28/2023 10:17 AM EST CLINICAL NUTRITION ADULT RISK ASSESSMENT [address] [address] Name: Ramona Stringer [place] [facility] [place] [facility] Date: 10/28/2023 Time: 10:17 AM How patient was identified (select 2): Medical record number and date Ramona Stringer is a 67 year old female being assessed for clinical nutrition risk related to extended LOS Primary diagnosis: Shortness of breath, lower extremity edema Other pertinent information: Patient reports that she is having good appetite prior to admission. Limited meal consumption of 75% documented. Didn't tolerate NG placement yesterday. Currently denies N/V and abdominal discomfort. Has multiple BMs today. C.diff negative. Started on CL diet. Reports that taken some water/ juice and tolerated well. Recommend to advance diet , when medically feasible. No chewing/swallowing difficulty reported. She reports some wt gain ~15 lbs since she got here. 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 Pt is asking for the x- ray result. Informed that doctor will discuss the report with her Anthropometrics Measurements Admission weight (for dietitians): 110 kg (242 lb 8.1 oz) Height: 167.6 cm (5' 5.98") (10/24/23 0400) Weight: 104.1 kg (229 lb 8 oz) (10/28/23 0556) BMI: 38.06 (10/24/23399) Usual Body Weight or EDW for Dialysis Patients: 104-107 kg per EHR Diet: Clear Liquid Previously followed diet: Regular Food Allergies/Intolerances: None Pertinent medications/vitamins/minerals/supplements: isolyte RISK FACTORS: Adult Energy Intake: No significant decrease Interpretation of Weight Change: Change likely secondary to fluid Skin: Intact NUTRITION RISK CATEGORY: Nutrition Risk Category: Low/Moderate (0-1 factors) Clinical Nutrition Recommendations: Diet: Advance diet when clinically feasible NUTRITION INTERVENTION/PLAN: Continue to monitor NPO/clear liquid status Will follow and adjust nutritional plan as medical condition requires. Please contact for change(s)in patient condition requiring earlier intervention. Merna Iraheta MS, RDN, LDN Clinical Dietitian [facility] [place] text * Care Plan - Clay Duvall RN - 10/28/2023 12:46 AM EST Clinical Goal(s): Pt will remain free from falls (10/27/230) Possible barriers to meeting goal(s)/advancing plan of care: fall risk Stability of the patient: Moderately stable - low risk of patient condition declining or worsening Summary regarding today's goal(s): Met: Recommendations: bed alarms; assist pt during ambulation * Communication - Susan Milian PA-C - 10/27/2023 4:42 PM EST TRANSFER RECEIVING NOTE - HOSPITAL MEDICINE [facility] [address] Name: Ramona Stringer Current Location: [address] [place] COMMUNICATION: Sending patient service: Cardiology Accepting service: Hospital Medicine Sending attending aware of patient and transfer: yes Receiving attending aware of patient and transfer: yes Name of receiving attending provider: Dr. Oakley Patient care is being assumed by receiving service: 4:43 PM in current location Reason for transfer: Management of GI pathology TRANSFER MEDICATION RECONCILIATION COMPLETED? yes SUBJECTIVE: Patient seen on HFAM8 in room 853. She reports since admission she has been having improvement in shortness of breath. Continues with cough with no change, nonproductive. Denies chest pain or palpitations. She has been NPO for pseudo- obstruction, asking for diet to be advanced. Per chart review shewas given IV neostigmine with some improvements but continued colonic distention, NG tube was attempted to be placed unsuccessfully. Given h/o nasal surgeries with difficult NG tube placement she wasoffered colonoscopy with decompression but refused on multiple occasions despite being educated on potential risks. Upon asking the patient why she is refusing decompressive colonoscopy she states she was told by provider at this point in her clinical course it would be unlikely to be helpful. Reports she has been having some room spinning associated nausea when moving in certain directions. Outside of this she denies nausea or vomiting. Denies abdominal pain. Has been having diarrhea with 8 bowel movements yesterday. C diff testing negative. GI pathogen panel pending. Urinating without difficulty. Prior to admission she was independent in self-care. 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 HTN, goal to be determined Osteoarthrosis, unspecified whether generalized or localized, lower leg Other chronic sinusitis PAF (paroxysmal atrial fibrillation) (HCC) Pure hypercholesterolemia Sleep apnea Systolic CHF (HCC) PHYSICAL EXAMINATION: Most Recent Vital Signs: BP: 121 mmHg/67 mmHg (10/27/23 1452) Pulse: 39 (10/27/23 1452) Temp: 36.72 C (10/27/23 145) Resp: 18 (10/27/23 145) SpO2: 94 % (10/27/23 145) Constitutional: No Apparent distress HEENT: normocephalic, atraumatic; no masses, tenderness, or adenopathy Eyes: PERRLA, sclera and conjunctiva normal Neck: supple, normal range of motion CV: Irregularly Irregular Rhythm, no murmur, gallops or rub Chest: normal respiratory effort, lungs clear to auscultation Abdomen: soft, distended, tender to palpation over epigastrium, normal bowel sounds Musculoskeletal: (-) negative Extremities: no clubbing, cyanosis, or edema, otherwise grossly normal, warm, and dry Skin: warm, dry, intact: Neuro: alert, oriented to person, place, and time, normal mental status exam Psych: normal mood and affect, nonsuicidal, judgement normal, memory normal IMPRESSION and PLAN: Principal Problem: Acute on chronic systolic heart failure (HCC) (POA: Yes) Active Problems: Paroxysmal atrial fibrillation (HCC) (POA: Yes) Atrial fibrillation with rapid ventricular response (HCC) (POA: Yes) Gout of big toe (POA: Yes) Body mass index (BMI) of 40.0 to 44.9 in adult (HCC) (POA: Yes) Fever of unknown origin (POA: Yes) Ileus, postoperative (HCC) (POA: Unknown) Diarrhea (POA: Unknown) Dilatation of colon (POA: Unknown) Dilated cardiomyopathy (HCC) (POA: Unknown) Resolved Problems: * No resolved hospital problems. * POA = Present On Admission PROBLEM BASED ASSESSMENT WITH DIFFERENTIAL: Ramona Stringer is a 67 year old female with significant history of Afib s/p atrial ablation 2015, HFrEF (EF 20%), HTN, WILL on CPAP, gout, LAYLA, Hx of GI bleed who presented with sepsis with suspected lung source, newly diagnosed CHFrEF (EF 20%), afib with RVR. Hospital course complicated by acute colonic pseudo-obstruction. Colonic pseudo-obstruction Diarrhea - Gastroenterology consulted, signed off 10/27/23 - Attempted NG tube placement for decompression, patient unable to tolerate - Recommended alternative of colonoscopy for decompression, patient refusing per GI - Per GI notes, patient was advised on multiple occasions without decompression she is at increasedrisk of bowel ischemia and perforation which would require emergent surgery and can cause peritonitis, septic shock and even . - Serial abdominal exams and KUB - Will advance diet to clear liquids - C Diff. testing negative - GI pathogen panel, in process - Avoid narcotics - Ambulation as tolerated - PT/OT consulted HFrEF (EF 20%) Afib with RVR - Cardiology following - Metoprolol 5 mg IV Q4H for rate control - Holding diuretics now including ARCHITECTURAL ADMINISTRATIVE ASSISTANT Bumex - Continuing on heparin ggt, holding Eliquis Sepsis with suspected lung source (resolved) Acute hypoxic respiratory failure (resolved) - Maintaining adequate saturations on RA - Ceftriaxone and Azithromycin completed Nutrition Section Chronic Problems/ARCHITECTURAL ADMINISTRATIVE ASSISTANT medications: WILL: continue with BiPAP HTN: hold ARCHITECTURAL ADMINISTRATIVE ASSISTANT hydrodiuril and atenolol Muscle spams: hold ARCHITECTURAL ADMINISTRATIVE ASSISTANT baclofen Patient's clinical course and plan of care of care was discussed with Dr. Oakley. * Care Plan - Char Cortes RN - 10/27/2023 1:25 PM EST Clinical Goal(s): patient will be free of injury this shift (10/27/23 1200) Possible barriers to meeting goal(s)/advancing plan of care: weakness Stability of the patient: Moderately stable - low risk of patient condition declining or worsening Summary regarding today's goal(s): Met: patient was free of injury this shift Recommendations: continue safety measures * Ancillary Progress Note - Ne Huston RN - 10/27/2023 10:20 AM EST CARE MANAGEMENT - ADULT TRANSITION [place] [facility] [address] Name: Ramona Stringer [place] [id number] Date: 10/27/2023 Time: 10:21 AM Risk Stratification Risk Stratification OBRA or OPTIONS needed for placement: No (10/22/23 0959) Readmission Risk Score: 12.49 (10/27/23 0801) AM-PAC Score With Stairs : 17 (10/26/232014) Caregiver Information Patient Contacts Name Relation Home Work Mobile Tobi Thurman Adult Child [phone] Kushal Hodgson Adult Child [phone] Transition of Care Checklist Narrative: Chart reviewed, pt not medically ready for discharge. GI following for continued abdominal distention/ileus. Per notes, pt was not able to tolerate ambulation due to weakness. Message sent to service to request PT/OT consult. CM needs uncertain at this time. CM will continue to follow throughout hospitalization for developing discharge needs. Anticipated Transportation at Discharge: tbd Patient/Family Expectations: tbd Transition Planning Additional Considerations: none Care Management will continue to monitor and assist with discharge planning needs * Care Plan - Nishi Haro RN - 10/26/2023 5:50 PM EST Clinical Goal(s): pt will remain free from injury throughout this shift (10/26/23 0700) Possible barriers to meeting goal(s)/advancing plan of care: pt has a current ileus Stability of the patient: Moderately unstable - medium risk of patient condition declining or worsening Summary regarding today's goal(s): Met: pt has remained free from injury throughout this admission Recommendations: plan of care ongoing * Communication - Rhona Monroy MD - 10/26/2023 2:51 PM EST Repeat KUB this afternoon showed the cecum remains dilated (pending formal reading). Discussed withthe patient that we recommend colonoscopy for decompression and decompression tube placement. Patient was also made aware that without decompression, there is an increased risk of bowel ischemia and p erforation, which will warrant emergent surgery, and can cause peritonitis, septic shock, other morbidities, and even . Patient decided that she would not proceed with colonoscopy. She wanted tocontinue conservative management. RADHA Haro was present during the discussion. Will continue conservative management, including NPO, serial abdominal exams and KUB, ambulation astolerated. Discussed with my attending, Dr. Wong. * Care Plan - Huong Rebolledo RN - 10/26/2023 6:31 AM EST Clinical Goal(s): patient will remain free from injury (10/25/231999) Possible barriers to meeting goal(s)/advancing plan of care: afib, weakness Stability of the patient: Moderately stable - low risk of patient condition declining or worsening Summary regarding today's goal(s): Met: patient remained free from injury Recommendations: monitor heart rate, monitor BP, use ambulation device, non skid socks * Care Plan - Huong Rebolledo RN - 10/25/2023 7:24 AM EST Clinical Goal(s): pt will remain free from injury during this shift (10/24/231999) Possible barriers to meeting goal(s)/advancing plan of care: afib, ambulation assistance Stability of the patient: Moderately stable - low risk of patient condition declining or worsening Summary regarding today's goal(s): Met: patient remained free from injury Recommendations: monitor HR, monitor BP * Care Plan - Julia Timmons RN - 10/23/2023 6:59 PM EST Clinical Goal(s): Patient will remain free from injury (10/23/23 0800) Possible barriers to meeting goal(s)/advancing plan of care: BLE edema, Afib HR 110-180 Stability of the patient: Moderately stable - low risk of patient condition declining or worsening Summary regarding today's goal(s): Met: Goal Met - Patient remained free from injury throughout shift. Recommendations: Continue with current treatment plan * Respiratory Progress Note - Neno Silver RRT - 10/22/2023 7:54 PM EST PATIENT DRIVEN PROTOCOL - Respiratory Care Services [address] [address] Name: Ramona Stringer [place] [facility] Date: 10/22/2023 Time: 7:54 PM Patient Driven Protocol Summary: Initial evaluation performed. This Treatment Plan and medications will be reviewed by the Primary Care Team for any contraindications. Respiratory Care Treatment Plan Pulmonary Volume Expansion Therapy: Incentive Spirometry PRN to prevent or treat alveolar consolidation and atelectasis. . Secretion Management Treatment: Flutter TherapyPRN to enhance mobilization of secretions. . The patient will be re-evaluated: No re-evaluation needed. Indications for treatment met. The Triage Level is: (Assessment Score = 6 -10) Level 4. Triage Level Definitions: Level 1 Severe Respiratory/Airway Compromise Level 2 Moderate Respiratory/Airway Compromise or high risk for pulmonary complications Level 3 Mild Respiratory/Airway Compromise or moderate risk for pulmonary complications Level 4 Episodic Respiratory/Airway Compromise or low risk for pulmonary complications Level 5 No Respiratory/Airway Compromise Triage 1 Triage 2 Triage 3 Triage 4 Triage 5 greater than 20 16 - 20 11 - 15 6 - 10 0 - 5 Medical Record Assessment Clinical Findings Pulmonary Status: 0 - No History Surgical Status: 0 - No Surgical History Chest X-Ray: 1 - Chronic Changes or CHF Assessment Score: 1 Patient Assessment Clinical Findings Respiratory Pattern: 1 - RR 21 - 25; Patient gets short of breath when hurrying on level ground or walking up a slight hill. Breath Sounds: 2 - Diminished bilaterally Cough Effectiveness: 2 - Weak non-productive Sputum Production: 0 - No sputum production Level of Activity: 1 - Ambulatory with assist O2 needed to keep SpO2 greater than or equal to 92%: 0 - Room Air Assessment Score: 6 Total Assessment Score: 7 Breath Sounds: Inspiratory and expiratory clear and diminished bilaterally.. Cough and Sputum: A loose cough produced no sputum... CXR: Mildly enlarged cardiac silhouette, new since the prior chest x-ray. The differential diagnosis includes cardiomegaly secondary to congestive heart failure or pericardial effusion. Please correlate clinically. 2. Mild pulmonary edema. Probable trace bilateral pleural effusions.. Vital Signs: Resp: 25 (10/22/23 1900) Pulse: 158 (10/22/23 1900) Temp: 37.2 C (99 F) (10/22/23 1600) BP: 111/84 (10/22/23 1800) SpO2: 90 % (10/22/23 1800) PFT: Minimal Predicted IC: 0.891 L. Inspiratory capacity: 1L. Primary Service: Cardiology Med A. Admitting Diagnosis: Acute on chronic systolic CHF (congestive heart failure) (HCC) [I50.23] Heart failure (HCC) [I50.9] Pulmonary Diagnosis: CHF and WILL. * Ancillary Progress Note - Tobi Kelly RVT - 10/22/2023 2:27 PM EST PROCEDURE - Vascular Lab [address] [address] Name: Ramona Stringer Location: [address] Date: 10/22/2023 Time: 2:27 PM FINAL PHYSICIAN REPORT TO FOLLOW. PROCEDURE: Right side: Lower extremity venous duplex negative: no evidence of deep vein thrombosis Left side: Lower extremity venous duplex negative: no evidence of deep vein thrombosis TECH NAME: Tobi Kelly RVT * Ancillary Progress Note - Se Ingram LSW - 10/22/2023 10:02 AM EST CARE MANAGEMENT - ADULT INITIAL SCREENING [address] [address] Name: Ramona Stringer Location: [facility]/A Date: 10/22/2023 Time: 10:02 AM Discussed patient with the interdisciplinary care team. This Project Manager Senior performed a chart review to complete admission screen and assessed needs for transition planning. Chief Complaint: No chief complaint on file. Prior Living Arrangements What was your living situation prior to admission/observation?: With Child (10/21/232128) Living Quarters: House (10/22/23 0959) History of falling: No (12/28/23 0800) Prior Level of Functioning Describe the patient's ability prior to admission/observation to perform ADLs: Performs independently (10/21/232128) Describe the patient's mobility status prior to admission: Patient ambulates independently (10/21/232128) Patient uses assistive device: No (10/21/232128) Caregiver Information Patient Contacts Name Relation Home Work Mobile Tobi Thurman Adult Child [phone] JOELLE(?)KUSHAL Adult Child [phone] Risk Stratification/Psychosocial/Care Gaps Risk Stratification OBRA or OPTIONS needed for placement: No (10/22/23958) Readmission Risk Score: 11.42 (10/22/2301) AM-PAC Score With Stairs : 18 (10/22/23799) Prior to Admission Services Services Prior to Admission ARCHITECTURAL ADMINISTRATIVE ASSISTANT Services (Services received within the last 30 days with exception, Psych within last two years): Durable Medical Equipment (10/22/23958) ARCHITECTURAL ADMINISTRATIVE ASSISTANT Durable Medical Equipment (DME) in home: Stair Vici;Cane;CPAP/BiPAP/Home Vent;Walker Rolling (10/22/23958) [place] Dept. of Aging (PDA) Waiver Program: N/A (10/22/23958) ARCHITECTURAL ADMINISTRATIVE ASSISTANT Transportation (Services received within the last 30 days): [facility] [employer] Transportation(10/22/23958) Outpatient Project Manager Senior: Patient Care Team: Maggie Diggs, RN as Living Specialist (Registered Nurse) Patient/Family Expectations: TBD Narrative: 515 assessment recently completed @ [facility] on 10/21; therefore, chart review completed. Prior to admission, patient lived independently in a two story home. Patient lives on first floor and son lives on the second floor. Patient has stair glide to go up on 2nd floor if needed. Also has a CPAP, RW, and cane at home. No current home health or previous SNF stays. Is active w/ [facility] transportation, but does not use. No mental health/substance use concerns indicated. Care management to continue to follow. For further screening information, please refer to the Care Management flow document. documented in this encounter Plan of Treatment Upcoming Encounters Date Type Department Care Team (Late st Contact Info) Description 11/13/2023 9:45 AM EST Office Visit Cardiology, [facility] [address] [facility] [place] [address] Maggie Melendez, DO [address] [place] [address] 12/10/2023 2:20 PM EST Office Visit Family Practice 65 [facility] [address] [place] [address] Lucie Montero, DO [address] [place] [address] 12/24/2023 2:00 PM EST Nurse Only Ancillary 65 [facility] [address] [place] [address] College, Nurse Annual Wellness Visit [address] [place] [address] 09/30/2024 2:30 PM EST Office Visit Otolaryngology [facility] [address] [facility] [place] [address] Femi Bal, [address] [facility] [place] [address] Scheduled Orders Name Type Priority Associated Diagnoses Orde r Schedule XR ABDOMEN 1 VIEW Medical Imaging STAT On e Time for 1 Occurrences starting 10/23/2023 until 10/23/2023 Health Maintenance Due Date Last Done Comments COVID-19 Vaccine (#1) 05/20/1956 Pneumococcal Vaccine: 65+ Years (1 - PCV) 1960 DTaP,Tdap,and Td Vaccines (1 - Tdap) 1973 Mammogram 1994 Zoster Vaccines (1 of 2) 2004 COLONOSCOPY-EVERY 5 YRS AGES 18-100 06/24/2021 06/24/2016, 06/24/2016 Influenza Vaccine (FLU shot) (#1) 2023 Depression Screening 10/08/2024 10/08/2023, 01/30/2015 (Declined) DIG LEVEL FOR MEDICATION MONITORING YEARLY 10/30/2024 10/30/2023 GFR 11/03/2024 11/03/2023, 05/2024, 11/01/2023, Additional history [...] Not on filedocumented as of this encounter Procedures Procedure Name Priority Date/Time Associated Diagnosis Comments XR ABDOMEN 1 VIEW STAT 11/03/2023 9:4 7 AM EST HEPARIN, UNFRACTIONATED STAT 11/03/19 8:27 AM EST BASIC METABOLIC PANEL Add-on 11/03/2023 5:48 AM EST PT INR Routine 11/03/2023 5:48 AM EST PHOSPHORUS Routine 11/03/2023 5:48 AM EST MAGNESIUM Routine 11/03/2023 5:48 AM EST BASIC METABOLIC PANEL Routine 11/02/2023 3:28 AM EST HEPARIN, UNFRACTIONATED STAT 11/02/19 3:28 AM EST PT INR Routine 11/02/2023 3:28 AM EST PHOSPHORUS Routine 11/02/2023 3:28 AM EST CBC Routine 11/02/2023 3:28 AM EST MAGNESIUM Routine 11/02/2023 3:28 AM EST HEPARIN, UNFRACTIONATED Routine 11/01/19 9:31 PM EST XR ABDOMEN 1 VIEW STAT 11/01/2023 2:5 8 PM EST BASIC METABOLIC PANEL Routine 11/01/2023 7:01 AM EST HEPARIN, UNFRACTIONATED STAT 11/01/19 7:01 AM EST PT INR Routine 11/01/2023 7:01 AM EST PHOSPHORUS Routine 11/01/2023 7:01 AM EST CBC Routine 11/01/2023 7:01 AM EST MAGNESIUM Routine 11/01/2023 7:01 AM EST BASIC METABOLIC PANEL Routine 10/31/2023 7:05 AM EST HEPARIN, UNFRACTIONATED STAT 10/31/19 7:05 AM EST PT INR Routine 10/31/2023 7:05 AM EST PHOSPHORUS Routine 10/31/2023 7:05 AM EST CBC Routine 10/31/2023 7:05 AM EST MAGNESIUM Routine 10/31/2023 7:05 AM EST XR ABDOMEN 1 VIEW STAT 10/30/2023 9:4 0 AM EST BASIC METABOLIC PANEL Routine 10/30/2023 4:02 AM EST PHOSPHORUS Routine 10/30/2023 4:02 AM EST CBC STAT 10/30/2023 4:02 AM EST MAGNESIUM Routine 10/30/2023 4:02 AM EST DIGOXIN LEVEL Routine 10/30/2023 4:02 AM EST HEPARIN, UNFRACTIONATED STAT 10/30/19 4:01 AM EST PT INR Routine 10/30/2023 4:01 AM EST BASIC METABOLIC PANEL Routine 10/29/2023 9:46 PM EST HEPARIN, UNFRACTIONATED STAT 10/29/19 9:46 PM EST XR ABDOMEN 1 VIEW STAT 10/29/2023 2:3 8 PM EST HEPARIN, UNFRACTIONATED STAT 10/29/19 1:53 PM EST PT INR STAT 10/29/2023 1:53 PM EST APTT STAT 10/29/2023 1:53 PM EST CBC STAT 10/29/2023 1:53 PM EST BASIC METABOLIC PANEL Routine 10/29/2023 6:13 AM EST PT INR Routine 10/29/2023 6:13 AM EST PHOSPHORUS Routine 10/29/2023 6:13 AM EST APTT Routine 10/29/2023 6:13 AM EST CBC Routine 10/29/2023 6:13 AM EST MAGNESIUM Routine 10/29/2023 6:13 AM EST BASIC METABOLIC PANEL Routine 10/28/2023 6:32 PM EST XR ABDOMEN 1 VIEW Routine 10/28/2023 10: 05 AM EST BASIC METABOLIC PANEL Routine 10/28/2023 5:32 AM EST PT INR Routine 10/28/2023 5:32 AM EST PHOSPHORUS Routine 10/28/2023 5:32 AM EST APTT STAT 10/28/2023 5:32 AM EST CBC Routine 10/28/2023 5:32 AM EST MAGNESIUM Routine 10/28/2023 5:32 AM EST BASIC METABOLIC PANEL Routine 10/27/2023 3:28 PM EST XR ABDOMEN 1 VIEW Routine 10/27/2023 12: 34 PM EST BASIC METABOLIC PANEL Routine 10/27/2023 5:14 AM EST PT INR Routine 10/27/2023 5:14 AM EST PHOSPHORUS Routine 10/27/2023 5:14 AM EST APTT STAT 10/27/2023 5:14 AM EST CBC Routine 10/27/2023 5:14 AM EST MAGNESIUM Routine 10/27/2023 5:14 AM EST BASIC METABOLIC PANEL Routine 10/26/2023 3:33 PM EST XR ABDOMEN 1 VIEW STAT 10/26/2023 2:5 0 PM EST GASTROINTESTINAL PATHOGEN PANEL, STOOL Routine 10/26/2023 11:43 AM EST GASTROINTESTINAL PATHOGEN PANEL CULTURE Routine 10/26/2023 11:43 AM EST GASTROINTESTINAL PATHOGEN PANEL PCR Routine 10/26/2023 11:43 AM EST CLOSTRIDIUM DIFFICILE, PCR Routine 10/26/2023 11:43 AM EST XR ABDOMEN 1 VIEW Routine 10/26/2023 6:2 3 AM EST PT INR Routine 10/26/2023 4:38 AM EST APTT STAT 10/26/2023 4:38 AM EST BASIC METABOLIC PANEL Routine 10/26/2023 4:37 AM EST PHOSPHORUS Routine 10/26/2023 4:37 AM EST CBC Routine 10/26/2023 4:37 AM EST MAGNESIUM Routine 10/26/2023 4:37 AM EST BASIC METABOLIC PANEL Routine 10/25/2023 3:48 PM EST XR ABDOMEN 1 VIEW Routine 10/25/2023 3:2 3 PM EST XR CHEST 1 VIEW STAT 10/25/2023 3:23 PM EST MICROSCOPIC EXAM, URINE STAT 10/25/20 11:41 AM EST BASIC METABOLIC PANEL Routine 10/25/2023 5:02 AM EST PT INR Routine 10/25/2023 5:02 AM EST PHOSPHORUS Routine 10/25/2023 5:02 AM EST APTT STAT 10/25/2023 5:02 AM EST CBC Routine 10/25/2023 5:02 AM EST MAGNESIUM Routine 10/25/2023 5:02 AM EST GLUCOSE METER, POINT OF CARE FARIBA 10/25/2023 3:53 AM EST XR ABDOMEN 1 VIEW Routine 10/24/2023 11: 00 AM EST US RENAL STAT 10/24/2023 8:40 AM EST BASIC METABOLIC PANEL Routine 10/24/2023 5:44 AM EST PT INR Routine 10/24/2023 5:44 AM EST PHOSPHORUS Routine 10/24/2023 5:44 AM EST APTT STAT 10/24/2023 5:44 AM EST CBC Routine 10/24/2023 5:44 AM EST MAGNESIUM Routine 10/24/2023 5:44 AM EST NM HEPATOBILIARY SYSTEM Routine 10/23/20 1:33 PM EST XR ABDOMEN 1 VIEW STAT 10/23/2023 7:4 1 AM EST BASIC METABOLIC PANEL Routine 10/23/2023 6:47 AM EST PT INR Routine 10/23/2023 6:47 AM EST PHOSPHORUS Routine 10/23/2023 6:47 AM EST APTT STAT 10/23/2023 6:47 AM EST CBC Routine 10/23/2023 6:47 AM EST MAGNESIUM Routine 10/23/2023 6:47 AM EST APTT STAT 10/22/2023 11:20 PM EST LACTATE STAT 10/22/2023 2:44 PM EST VASC DUPLEX VENOUS LE BILAT STAT 10/22/2023 2:27 PM EST XR ABDOMEN 1 VIEW STAT 10/22/2023 2:0 8 PM EST APTT STAT 10/22/2023 2:04 PM EST BASIC METABOLIC PANEL Routine 10/22/2023 5:30 AM EST PT INR Routine 10/22/2023 5:30 AM EST LIPASE Add-on 10/22/2023 5:30 AM EST APTT STAT 10/22/2023 5:30 AM EST CBC Routine 10/22/2023 5:30 AM EST MRSA SCREEN, PCR STAT 10/22/2023 1:16 AM EST HC ECG TRACING ONLY Routine 10/22/2023 1 2:01 AM EST Chest pain COMPREHENSIVE METABOLIC PANEL Routine 10/21/2023 11:40 PM EST HEPARIN, UNFRACTIONATED STAT 10/21/20 11:40 PM EST PT INR STAT 10/21/2023 11:40 PM EST PHOSPHORUS Routine 10/21/2023 11:40 PM EST LACTATE Routine 10/21/2023 11:40 PM EST APTT STAT 10/21/2023 11:40 PM EST CBC STAT 10/21/2023 11:40 PM EST MAGNESIUM STAT 10/21/2023 11:40 PM EST URINALYSIS, REFLEX TO CULTURE Routine 10/21/2023 10:55 PM EST URINALYSIS, REFLEX TO CULTURE (CUP ONLY) Routine 10/21/2023 10:55 PM EST URINALYSIS, REFLEX TO CULTURE (NOT FOR NEUTROPENIC PATIENTS) Routine 10/21/2023 10:55 PM EST RESPIRATORY PATHOGEN PANEL, PCR STAT 10/21/2023 10:55 PM EST CULTURE, URINE, QUANTITATIVE Routine 10/21/2023 10:55 PM EST HC ECG TRACING ONLY Routine 10/21/2023 9 :09 PM EST Chest pain HC ECG TRACING ONLY Routine 10/21/2023 8 :41 PM EST Chest pain documented in this encounter Results * XR ABDOMEN 1 VIEW (11/03/2023 9:47 AM EST) Anatomical Region Laterality Modality Abdomen, Pelvis Digital Radiogra phy 11/03/2023 10:0 2 AM EST Impressions 11/03/2023 10:00 AM EST IMPRESSION Similar gaseous distention of the stomach. There is no significant colonic distention. Narrative 11/03/2023 10:00 AM EST EXAM XR ABDOMEN 1 VIEW-11/03/2023 9:47 am HISTORY Colonic distention, please comment if improving/same/worse COMPARISON None TECHNIQUE AP supine radiographs of the abdomen FINDINGS There is similar gaseous distention of the stomach. There is no significant colonic distention. Vascular calcifications are noted. There are degenerative changes of the spine. Procedure Note Bhupendra Maldonado MD - 11/03/2023 EXAM XR ABDOMEN 1 VIEW-11/03/2023 9:47 am HISTORY Colonic distention, please comment if improving/same/worse COMPARISON None TECHNIQUE AP supine radiographs of the abdomen FINDINGS There is similar gaseous distention of the stomach. There is nosignificant colonic distention. Vascular calcifications are noted. Thereare degenerative changes of the spine. IMPRESSION IMPRESSION Similar gaseous distention of the stomach. There is no significantcolonic distention. Evan Lombardo MD RADIOLOGY (RAD GEN ERAL) * (ABNORMAL) HEPARIN, UNFRACTIONATED (11/03/2023 8:27 AM EST) Heparin, Unfractionated 0.42(H) <0.10 IU/mL 11/03/2023 8:58 AM EST LAB[facility]AT[facility] Comment: Unfractionated therapeutic ranges for Anti Xa activity: For Cardiac/Neurologic treatment: 0.3 to 0.6 IU/mL. For treatment of DVT or Pulmonary Embolism: 0.3 to 0.7 IU/mL. Blood Venous blood specimen / Unknown Venipuncture / Unknown 11/03/2023 8:27 AM EST 11/03/2023 8:41 AM EST Evan Lombardo MD LAB BLOOD ORDERABL ES LABORATORY [facility] [address] [place] [address] * (ABNORMAL) BASIC METABOLIC PANEL (11/03/2023 5:48 AM EST) BUN 14 6 - 20 mg/dL 11/03/2023 8:35 AM EST [facility] Creatinine 0.8 0.5 - 1.0 mg/dL 11/03/2023 8:35 AM EST [facility] Estimated Glomerular Filtration Rate 81 >=60 mL/min 11/03/2023 8:35 AM EST [facility] Comment:eGFR is calculated b ased on the CKD-EPI 2020 equation Sodium 139 135 - 146 mmol/L 11/03/2023 8:35 AM EST [facility] Potassium 4.8 3.5 - 5.1 mmol/L 11/03/2023 8:35 AM EST [facility] Chloride 106 98 - 107 mmol/L 11/03/2023 8:35 AM EST [facility] CO2 19(L) 22 - 32 mmol/L 11/03/2023 8:35 AM EST [facility] Anion Gap 14 7 - 15 mmol/L 11/03/2023 8:35 AM EST [facility] Glucose 99 70 - 120 mg/dL 11/03/2023 8:35 AM EST [facility] Calcium 9.8 8.4 - 10.2 mg/dL 11/03/2023 8:35 AM EST [facility] Blood Venous blood specimen / Unknown Venipuncture / Unknown 11/03/2023 5:48 AM EST 11/03/2023 5:54 AM EST Evan Lombardo MD LAB BLOOD ORDERABL ES Performing Organization Address City/[facility] Co de Phone Number [facility] [address] [place] [address] * PT INR (11/03/2023 5:48 AM EST) Prothrombin Time 14.4 11.6 - 15.2 seconds 11/03/2023 6:17 AM EST [facility] INR 1.1 0.8 - 1.2 11/03/2023 6:17 AM EST LABORATORY C Blood Venous blood specimen / Unknown Venipuncture / Unknown 11/03/2023 5:48 AM EST 11/03/2023 5:54 AM EST Narrative [facility] - 11/03/2023 6:17 AM EST Warfarin Therapy INR: 2.0-3.0 conventional anticoagulation INR: 2.5-3.5 high intensity anticoagulation Evan Lombardo MD LAB BLOOD ORDERABL ES Performing Organization Address [facility] Co de Phone Number [facility] [address] [place] [address] * PHOSPHORUS (11/03/2023 5:48 AM EST) Phosphorus 4.0 2.5 - 4.8 mg/dL 11/03/2023 6:18 AM EST [facility] Blood Venous blood specimen / Unknown Venipuncture / Unknown 11/03/2023 5:48 AM EST 11/03/2023 5:54 AM EST Susan Milian PA-C LAB BLOOD ORDERABLES Performing Organization Address City/[facility]/ZIP Co de Phone Number LABORATORY [facility] [address] [place] [address] * MAGNESIUM (11/03/2023 5:48 AM EST) Magnesium 1.9 1.5 - 2.6 mg/dL 11/03/2023 6:18 AM EST LABORATORY C Blood Venous blood specimen / Unknown Venipuncture / Unknown 11/03/2023 5:48 AM EST 11/03/2023 5:54 AM EST Susan Milian PA-C LAB BLOOD ORDERABLES Performing Organization Address [facility] Co de Phone Number [facility] [address] [place] [address] * PT INR (11/02/2023 3:28 AM EST) Prothrombin Time 13.9 11.6 - 15.2 seconds 11/02/2023 3:47 AM EST [facility] INR 1.1 0.8 - 1.2 11/02/2023 3:47 AM EST [facility] Blood Venous blood specimen / Unknown Venipuncture / Unknown 11/02/2023 3:28 AM EST 11/02/2023 3:31 AM EST Narrative [facility] - 11/02/2023 3:47 AM EST Warfarin Therapy INR: 2.0-3.0 conventional anticoagulation INR: 2.5-3.5 high intensity anticoagulation Evan Lombardo MD LAB BLOOD ORDERABL ES Performing Organization Address [facility] Co de Phone Number LAB[facility]AT[facility] [address] [place] [address] * PHOSPHORUS (11/02/2023 3:28 AM EST) Phosphorus 3.7 2.5 - 4.8 mg/dL 11/02/2023 4:10 AM EST LABORATORY C Blood Venous blood specimen / Unknown Venipuncture / Unknown 11/02/2023 3:28 AM EST 11/02/2023 3:31 AM EST Susan BRYANT-C LAB BLOOD ORDERABLES Performing Organization Address [facility] Co de Phone Number [facility] [address] [place] [address] * MAGNESIUM (11/02/2023 3:28 AM EST) Magnesium 1.8 1.5 - 2.6 mg/dL 11/02/2023 4:10 AM EST [facility] Blood Venous blood specimen / Unknown Venipuncture / Unknown 11/02/2023 3:28 AM EST 11/02/2023 3:31 AM EST Susan BRYANT-C LAB BLOOD ORDERABLES Performing Organization Address [facility] Phone Number [facility]ATORY [facility] [address] [place] [address] * (ABNORMAL) HEPARIN, UNFRACTIONATED (11/02/2023 3:28 AM EST) Heparin, Unfractionated 0.49(H) <0.10 IU/mL 11/02/2023 3:47 AM EST [facility] Comment: Unfractionated therapeutic ranges for Anti Xa activity: For Cardiac/Neurologic treatment: 0.3 to 0.6 IU/mL. For treatment of DVT or Pulmonary Embolism: 0.3 to 0.7 IU/mL. Blood Venous blood specimen / Unknown Venipuncture / Unknown 11/02/2023 3:28 AM EST 11/02/2023 3:31 AM EST Evan Lombardo MD LAB BLOOD ORDERABL ES Performing Organization Address [facility] Co de Phone Number LABORATORY [place] [address] [place] [address] * BASIC METABOLIC PANEL (11/02/2023 3:28 AM EST) BUN 12 6 - 20 mg/dL 11/02/2023 4:10 AM EST [facility] Creatinine 0.6 0.5 - 1.0 mg/dL 11/02/2023 4:10 AM EST [facility] Estimated Glomerular Filtration Rate >90 >=60 mL/min 11/02/2023 4:10 AM EST [facility] Comment:eGFR is calculated b ased on the CKD-EPI 2020 equation Sodium 140 135 - 146 mmol/L 11/02/2023 4:10 AM EST [facility] Potassium 4.3 3.5 - 5.1 mmol/L 11/02/2023 4:10 AM EST [facility] Chloride 107 98 - 107 mmol/L 11/02/2023 4:10 AM EST [facility] CO2 22 22 - 32 mmol/L 11/02/2023 4:10 AM EST [facility] Anion Gap 11 7 - 15 mmol/L 11/02/2023 4:10 AM EST [facility] Glucose 100 70 - 120 mg/dL 11/02/2023 4:10 AM EST [facility] Calcium 10.1 8.4 - 10.2 mg/dL 11/02/2023 4:10 AM EST [facility] Blood Venous blood specimen / Unknown Venipuncture / Unknown 11/02/2023 3:28 AM EST 11/02/2023 3:31 AM EST Evan Lombardo MD LAB BLOOD ORDERABL ES Performing Organization Address City/State/[facility] Co de Phone Number [facility] [address] [place] [address] * CBC (11/02/2023 3:28 AM EST) WBC 7.60 4.00 - 10.80 K/uL 11/02/2023 3:39 AM EST [facility] RBC 4.58 3.85 - 5.15 M/uL 11/02/2023 3:39 AM EST [facility] HGB 13.8 12.0 - 15.3 g/dL 11/02/2023 3:39 AM EST [facility] HCT 41.5 36.0 - 45.2 % 11/02/2023 3:39 AM EST [facility] MCV 90.6 81.5 - 97.5 fL 11/02/2023 3:39 AM EST [facility] MCH 30.1 27.0 - 34.0 pg 11/02/2023 3:39 AM EST [facility] MCHC 33.3 32.0 - 36.0 g/dL 11/02/2023 3:39 AM EST [facility] RDW 14.2 11.5 - 15.5 % 11/02/2023 3:39 AM EST [facility] PLT 281 140 - 400 K/uL 11/02/2023 3:39 AM EST [facility] MPV 9.1 6.6 - 11.1 fL 11/02/2023 3:39 AM EST [facility] nRBCs 0 <=0 /100 WBCs 11/02/2023 3:39 AM EST [facility] Blood Venous blood specimen / Unknown Venipuncture / Unknown 11/02/2023 3:28 AM EST 11/02/2023 3:31 AM EST Evan Lombardo MD LAB BLOOD ORDERABL ES Performing Organization Address [facility] Co de Phone Number [facility] [address] [place] [address] * (ABNORMAL) HEPARIN, UNFRACTIONATED (11/01/2023 9:31 PM EST) [facility] Heparin, Unfractionated 0.34(H) <0.10 IU/mL 11/01/2023 10:18 PM EST [facility] Comment: Unfractionated therapeutic ranges for Anti Xa activity: For Cardiac/Neurologic treatment: 0.3 to 0.6 IU/mL. For treatment of DVT or Pulmonary Embolism: 0.3 to 0.7 IU/mL. Blood Venous blood specimen / Unknown Venipuncture / Unknown 11/01/2023 9:31 PM EST 11/01/2023 10:06 PM EST Evan Lombardo MD LAB BLOOD ORDERABL ES Performing Organization Address City/[facility]/ZIP Co de Phone Number LAB[facility]ATORY [facility] [address] [place] [address] * XR ABDOMEN 1 VIEW (11/01/2023 2:58 PM EST) Anatomical Region Laterality Modality Abdomen, Pelvis Digital Radiogra phy 11/01/2023 4:30 PM EST Impressions 11/01/2023 5:48 PM EST IMPRESSION 1. Paucity of small bowel gas limits the evaluation. 2. Improved gaseous distention of the stomach. Decreased bowel gas in the colon. I have personally reviewed this examination and agree with the resident/fellow physician's interpretation. Narrative 11/01/2023 5:48 PM EST EXAM XR ABDOMEN 1 VIEW-11/01/2023 2:58 pm HISTORY Colon distention, last measured 12 cm, please comment if improving/same/worse COMPARISON X-ray abdomen 10/30/2023 and 10/29/2023. TECHNIQUE Three images encompassing portions of the abdomen and pelvis are submitted. FINDINGS Paucity of gas in the small bowel limits evaluation of the bowel gas pattern. Improved gaseous stomach distension. There is decreased gas in the colon as well. No gross free intraperitoneal air is noted on this supine examination. There are vascular calcifications in the abdomen.Osseous degenerative changes. Procedure Note Go, Wing Brooks MD - 11/01/2023 EXAM XR ABDOMEN 1 VIEW-11/01/2023 2:58 pm HISTORY Colon distention, last measured 12 cm, please comment ifimproving/same/worse COMPARISON X-ray abdomen 10/30/2023 and 10/29/2023. TECHNIQUE Three images encompassing portions of the abdomen and pelvis aresubmitted. FINDINGS Paucity of gas in the small bowel limits evaluation of the bowel gaspattern. Improved gaseous stomach distension. There is decreased gas inthe colon as well. No gross free intraperitoneal air is noted on this supine examination.There are vascular calcifications in the abdomen.Osseous degenerativechanges. IMPRESSION IMPRESSION 1. Paucity of small bowel gas limits the evaluation. 2. Improved gaseous distention of the stomach. Decreased bowel gas in thecolon. I have personally reviewed this examination and agree with the resident/fellow physician's interpretation. Evan Lombardo MD RADIOLOGY (RAD GEN ERAL) * PT INR (11/01/2023 7:01 AM EST) Prothrombin Time 14.5 11.6 - 15.2 seconds 11/01/2023 7:30 AM EST LABORATORY C INR 1.1 0.8 - 1.2 11/01/2023 7:30 AM EST LABORATORY C Blood Venous blood specimen / Unknown Venipuncture / Unknown 11/01/2023 7:01 AM EST 11/01/2023 7:15 AM EST Narrative LABORATORY C - 11/01/2023 7:30 AM EST Warfarin Therapy INR: 2.0-3.0 conventional anticoagulation INR: 2.5-3.5 high intensity anticoagulation Evan Lombardo MD LAB BLOOD ORDERABL ES Performing Organization Address City/[facility]/ZIP Co de Phone Number [facility]AT[facility] [address] [place] [address] * PHOSPHORUS (11/01/2023 7:01 AM EST) Phosphorus 3.5 2.5 - 4.8 mg/dL 11/01/2023 7:45 AM EST [facility] Blood Venous blood specimen / Unknown Venipuncture / Unknown 11/01/2023 7:01 AM EST 11/01/2023 7:15 AM EST Susan Milian PA-C LAB BLOOD ORDERABLES Performing Organization Address [facility] Co de Phone Number [facility] [address] [place] [address] * MAGNESIUM (11/01/2023 7:01 AM EST) Magnesium 2.0 1.5 - 2.6 mg/dL 11/01/2023 7:45 AM EST [facility] Blood Venous blood specimen / Unknown Venipuncture / Unknown 11/01/2023 7:01 AM EST 11/01/2023 7:15 AM EST Susan Milian PA-C LAB BLOOD ORDERABLES Performing Organization Address City/[facility] Co de Phone Number [facility] [address] [place] [address] * (ABNORMAL) HEPARIN, UNFRACTIONATED (11/01/2023 7:01 AM EST) Heparin, Unfractionated 0.26(H) <0.10 IU/mL 11/01/2023 7:37 AM EST [facility] Comment: Unfractionated therapeutic ranges for Anti Xa activity: For Cardiac/Neurologic treatment: 0.3 to 0.6 IU/mL. For treatment of DVT or Pulmonary Embolism: 0.3 to 0.7 IU/mL. Blood Venous blood specimen / Unknown Venipuncture / Unknown 11/01/2023 7:01 AM EST 11/01/2023 7:15 AM EST Evan Lombardo MD LAB BLOOD ORDERABL ES LABORATORY [facility] [address] [place] [address] * CBC (11/01/2023 7:01 AM EST) WBC 7.33 4.00 - 10.80 K/uL 11/01/2023 7:26 AM EST [facility] RBC 4.55 3.85 - 5.15 M/uL 11/01/2023 7:26 AM EST [facility] HGB 13.6 12.0 - 15.3 g/dL 11/01/2023 7:26 AM EST [facility] HCT 40.7 36.0 - 45.2 % 11/01/2023 7:26 AM EST [facility] MCV 89.5 81.5 - 97.5 fL 11/01/2023 7:26 AM EST [facility] MCH 29.9 27.0 - 34.0 pg 11/01/2023 7:26 AM EST [facility] MCHC 33.4 32.0 - 36.0 g/dL 11/01/2023 7:26 AM EST [facility] RDW 14.3 11.5 - 15.5 % 11/01/2023 7:26 AM EST [facility] PLT 269 140 - 400 K/uL 11/01/2023 7:26 AM EST [facility] MPV 9.4 6.6 - 11.1 fL 11/01/2023 7:26 AM EST [facility] nRBCs 0 <=0 /100 WBCs 11/01/2023 7:26 AM EST [facility] Blood Venous blood specimen / Unknown Venipuncture / Unknown 11/01/2023 7:01 AM EST 11/01/2023 7:15 AM EST Evan Lombardo MD LAB BLOOD ORDERABL ES Performing Organization Address [facility]/ZIP Co de Phone Number LAB[facility]ATORY [facility] [address] [place] [address] * (ABNORMAL) BASIC METABOLIC PANEL (11/01/2023 7:01 AM EST) BUN 12 6 - 20 mg/dL 11/01/2023 7:45 AM EST [facility] Creatinine 0.6 0.5 - 1.0 mg/dL 11/01/2023 7:45 AM EST [facility] Estimated Glomerular Filtration Rate >90 >=60 mL/min 11/01/2023 7:45 AM EST [facility] Comment:eGFR is calculated b ased on the CKD-EPI 2020 equation Sodium 138 135 - 146 mmol/L 11/01/2023 7:45 AM EST [facility] Potassium 4.2 3.5 - 5.1 mmol/L 11/01/2023 7:45 AM EST [facility] Chloride 107 98 - 107 mmol/L 11/01/2023 7:45 AM EST [facility] CO2 20(L) 22 - 32 mmol/L 11/01/2023 7:45 AM EST [facility] Anion Gap 11 7 - 15 mmol/L 11/01/2023 7:45 AM EST [facility] Glucose 93 70 - 120 mg/dL 11/01/2023 7:45 AM EST [facility] Calcium 9.8 8.4 - 10.2 mg/dL 11/01/2023 7:45 AM EST [facility] Blood Venous blood specimen / Unknown Venipuncture / Unknown 11/01/2023 7:01 AM EST 11/01/2023 7:15 AM EST Evan Lombardo MD LAB BLOOD ORDERABL ES Performing Organization Address [facility]/ZIP Co de Phone Number LAB[facility]ORY [facility] [address] [place] [address] * PT INR (10/31/2023 7:05 AM EST) Prothrombin Time 14.7 11.6 - 15.2 seconds 10/31/2023 7:35 AM EST [facility] INR 1.1 0.8 - 1.2 10/31/2023 7:35 AM EST [facility] Blood Venous blood specimen / Unknown Venipuncture / Unknown 10/31/2023 7:05 AM EST 10/31/2023 7:21 AM EST Narrative [facility]ORY [facility] - 10/31/2023 7:35 AM EST Warfarin Therapy INR: 2.0-3.0 conventional anticoagulation INR: 2.5-3.5 high intensity anticoagulation Evan Lombardo MD LAB BLOOD ORDERABL ES Performing Organization Address [facility] Co de Phone Number [facility] [address] [place] [address] * PHOSPHORUS (10/31/2023 7:05 AM EST) Phosphorus 3.0 2.5 - 4.8 mg/dL 10/31/2023 7:53 AM EST LABORATORY C Blood Venous blood specimen / Unknown Venipuncture / Unknown 10/31/2023 7:05 AM EST 10/31/2023 7:21 AM EST Susan Milian PA-C LAB BLOOD ORDERABLES Performing Organization Address City/[facility] Co de Phone Number [facility] [address] [place] [address] * MAGNESIUM (10/31/2023 7:05 AM EST) Magnesium 2.2 1.5 - 2.6 mg/dL 10/31/2023 7:53 AM EST LABORATORY C Blood Venous blood specimen / Unknown Venipuncture / Unknown 10/31/2023 7:05 AM EST 10/31/2023 7:21 AM EST Susan BRYANT-C LAB BLOOD ORDERABLES Performing Organization Address City/[facility]/ZIP Co de Phone Number [facility]ORY [facility] [address] [place] [address] * (ABNORMAL) HEPARIN, UNFRACTIONATED (10/31/2023 7:05 AM EST) Heparin, Unfractionated 0.55(H) <0.10 IU/mL 10/31/2023 7:36 AM EST LABORATORY [facility] Comment: Unfractionated therapeutic ranges for Anti Xa activity: For Cardiac/Neurologic treatment: 0.3 to 0.6 IU/mL. For treatment of DVT or Pulmonary Embolism: 0.3 to 0.7 IU/mL. Blood Venous blood specimen / Unknown Venipuncture / Unknown 10/31/2023 7:05 AM EST 10/31/2023 7:21 AM EST Evan Lombardo MD LAB BLOOD ORDERABL ES Performing Organization Address [facility] Co de Phone Number LABORATORY [place] [address] [place] [address] * (ABNORMAL) CBC (10/31/2023 7:05 AM EST) WBC 6.31 4.00 - 10.80 K/uL 10/31/2023 7:32 AM EST [facility] RBC 4.98 3.85 - 5.15 M/uL 10/31/2023 7:32 AM EST [facility] HGB 15.0 12.0 - 15.3 g/dL 10/31/2023 7:32 AM EST [facility] HCT 45.9(H) 36.0 - 45.2 % 10/31/2023 7:32 AM EST [facility] MCV 92.2 81.5 - 97.5 fL 10/31/2023 7:32 AM EST [facility] MCH 30.1 27.0 - 34.0 pg 10/31/2023 7:32 AM EST [facility] MCHC 32.7 32.0 - 36.0 g/dL 10/31/2023 7:32 AM EST [facility] RDW 14.4 11.5 - 15.5 % 10/31/2023 7:32 AM EST [facility] PLT 283 140 - 400 K/uL 10/31/2023 7:32 AM EST [facility] MPV 9.7 6.6 - 11.1 fL 10/31/2023 7:32 AM EST [facility] nRBCs 0 <=0 /100 WBCs 10/31/2023 7:32 AM EST [facility] Blood Venous blood specimen / Unknown Venipuncture / Unknown 10/31/2023 7:05 AM EST 10/31/2023 7:22 AM EST Evan Lombardo MD LAB BLOOD ORDERABL ES [facility] [address] [place] [address] * (ABNORMAL) BASIC METABOLIC PANEL (10/31/2023 7:05 AM EST) BUN 14 6 - 20 mg/dL 10/31/2023 7:53 AM EST [facility] Creatinine 0.7 0.5 - 1.0 mg/dL 10/31/2023 7:53 AM EST [facility] Estimated Glomerular Filtration Rate 88 >=60 mL/min 10/31/2023 7:53 AM EST [facility] Comment:eGFR is calculated b ased on the CKD-EPI 2020 equation Sodium 139 135 - 146 mmol/L 10/31/2023 7:53 AM EST [facility] Potassium 4.2 3.5 - 5.1 mmol/L 10/31/2023 7:53 AM EST [facility] Chloride 107 98 - 107 mmol/L 10/31/2023 7:53 AM EST [facility] CO2 20(L) 22 - 32 mmol/L 10/31/2023 7:53 AM EST [facility] Anion Gap 12 7 - 15 mmol/L 10/31/2023 7:53 AM EST [facility] Glucose 103 70 - 120 mg/dL 10/31/2023 7:53 AM EST [facility] Calcium 9.8 8.4 - 10.2 mg/dL 10/31/2023 7:53 AM EST [facility] Blood Venous blood specimen / Unknown Venipuncture / Unknown 10/31/2023 7:05 AM EST 10/31/2023 7:21 AM EST Evan Lombardo MD LAB BLOOD ORDERABL ES [facility] [address] [place] [address] * XR ABDOMEN 1 VIEW (10/30/2023 9:40 AM EST) Anatomical Region Laterality Modality Abdomen, Pelvis Digital Radiogra phy 10/30/2023 9:58 AM EST Impressions 10/30/2023 9:56 AM EST IMPRESSION Gaseous distention of the stomach which is not significantly changed. The remainder of the bowel gas pattern is unremarkable. Narrative 10/30/2023 9:56 AM EST EXAM XR ABDOMEN 1 VIEW-10/30/2023 9:40 am HISTORY Distention, please comment if improving/same/worsening etc COMPARISON Abdomen 10/29/2023 TECHNIQUE Two AP supine views of the abdomen FINDINGS There is gaseous distention of the stomach similar to previously. There is no evidence of small-bowel obstruction. Colonic loops appear within normal limits. Degenerative changes are seen in the spine. Chain sutures are seen in the left lower quadrant of the abdomen. Arteriosclerotic vascular calcifications are seen. Procedure Note Julienne Wills MD - 10/30/2023 EXAM XR ABDOMEN 1 VIEW-10/30/2023 9:40 am HISTORY Distention, please comment if improving/same/worsening etc COMPARISON Abdomen 10/29/2023 TECHNIQUE Two AP supine views of the abdomen FINDINGS There is gaseous distention of the stomach similar to previously. Thereis no evidence of small-bowel obstruction. Colonic loops appear withinnormal limits. Degenerative changes are seen in the spine. Chain suturesare seen in the left lower quadrant of the abdomen. Arterioscleroticvascular calcifications are seen. IMPRESSION IMPRESSION Gaseous distention of the stomach which is not significantly changed. The remainder of the bowel gas pattern is unremarkable. Evan Lombardo MD RADIOLOGY (RAD GEN ERAL) * CBC (10/30/2023 4:02 AM EST) WBC 6.83 4.00 - 10.80 K/uL 10/30/2023 4:17 AM EST [facility] RBC 4.93 3.85 - 5.15 M/uL 10/30/2023 4:17 AM EST [facility] HGB 14.6 12.0 - 15.3 g/dL 10/30/2023 4:17 AM EST [facility] HCT 44.5 36.0 - 45.2 % 10/30/2023 4:17 AM EST [facility] MCV 90.3 81.5 - 97.5 fL 10/30/2023 4:17 AM EST [facility] MCH 29.6 27.0 - 34.0 pg 10/30/2023 4:17 AM EST [facility] MCHC 32.8 32.0 - 36.0 g/dL 10/30/2023 4:17 AM EST [facility] RDW 14.4 11.5 - 15.5 % 10/30/2023 4:17 AM EST [facility] PLT 246 140 - 400 K/uL 10/30/2023 4:17 AM EST [facility] MPV 9.8 6.6 - 11.1 fL 10/30/2023 4:17 AM EST [facility] nRBCs 0 <=0 /100 WBCs 10/30/2023 4:17 AM EST [facility] Blood Venous blood specimen / Unknown Venipuncture / Unknown 10/30/2023 4:02 AM EST 10/30/2023 4:06 AM EST Kadeemb Shivani Lombardo MD LAB BLOOD ORDERABL ES [facility] [address] [place] [address] * (ABNORMAL) BASIC METABOLIC PANEL (10/30/2023 4:02 AM EST) BUN 27(H) 6 - 20 mg/dL 10/30/2023 5:03 AM EST [facility] Creatinine 0.9 0.5 - 1.0 mg/dL 10/30/2023 5:03 AM EST [facility] Estimated Glomerular Filtration Rate 70 >=60 mL/min 10/30/2023 5:03 AM EST [facility] Comment:eGFR is calculated b ased on the CKD-EPI 2020 equation Sodium 139 135 - 146 mmol/L 10/30/2023 5:03 AM EST [facility] Potassium 4.5 3.5 - 5.1 mmol/L 10/30/2023 5:03 AM EST [facility] Chloride 108(H) 98 - 107 mmol/L 10/30/2023 5:03 AM EST [facility] CO2 20(L) 22 - 32 mmol/L 10/30/2023 5:03 AM EST [facility] Anion Gap 11 7 - 15 mmol/L 10/30/2023 5:03 AM EST [facility] Glucose 103 70 - 120 mg/dL 10/30/2023 5:03 AM EST [facility] Calcium 9.6 8.4 - 10.2 mg/dL 10/30/2023 5:03 AM EST [facility] Blood Venous blood specimen / Unknown Venipuncture / Unknown 10/30/2023 4:02 AM EST 10/30/2023 4:06 AM EST Susan BRYANT-Aj LAB BLOOD ORDERABLES LAB[facility] [address] [place] [address] * PHOSPHORUS (10/30/2023 4:02 AM EST) Phosphorus 3.0 2.5 - 4.8 mg/dL 10/30/2023 5:03 AM EST [facility] Blood Venous blood specimen / Unknown Venipuncture / Unknown 10/30/2023 4:02 AM EST 10/30/2023 4:06 AM EST Susan BRYANT-C LAB BLOOD ORDERABLES [facility] [address] [place] [address] * MAGNESIUM (10/30/2023 4:02 AM EST) Magnesium 2.5 1.5 - 2.6 mg/dL 10/30/2023 5:03 AM EST [facility] Blood Venous blood specimen / Unknown Venipuncture / Unknown 10/30/2023 4:02 AM EST 10/30/2023 4:06 AM EST Susan Milian PA-C LAB BLOOD ORDERABLES Performing Organization Address City/[facility]/ZIP Co de Phone Number [facility] [address] [place] [address] * DIGOXIN LEVEL (10/30/2023 4:02 AM EST) Digoxin Level 0.8 0.5 - 1.1 ng/mL 10/30/2023 7:00 AM EST [facility] Blood Venous blood specimen / Unknown Venipuncture / Unknown 10/30/2023 4:02 AM EST 10/30/2023 4:06 AM EST Narrative [facility] - 10/30/2023 7:00 AM EST Recommended trough therapeutic ranges: 0.5 to 0.8 for heart failure 0.5 to 1.1 for atrial fibrillation Evan Lombardo MD LAB BLOOD ORDERABL ES Performing Organization Address [facility] Co de Phone Number [facility] [address] [place] [address] * PT INR (10/30/2023 4:01 AM EST) Prothrombin Time 14.3 11.6 - 15.2 seconds 10/30/2023 4:25 AM EST [facility] INR 1.1 0.8 - 1.2 10/30/2023 4:25 AM EST [facility] Blood Venous blood specimen / Unknown Venipuncture / Unknown 10/30/2023 4:01 AM EST 10/30/2023 4:06 AM EST Narrative [facility] - 10/30/2023 4:25 AM EST Warfarin Therapy INR: 2.0-3.0 conventional anticoagulation INR: 2.5-3.5 high intensity anticoagulation Susan Milian PA-C LAB BLOOD ORDERABLES Performing Organization Address City/[facility]/ZIP Co de Phone Number [facility] [address] [place] [address] * (ABNORMAL) HEPARIN, UNFRACTIONATED (10/30/2023 4:01 AM EST) Heparin, Unfractionated 0.41(H) <0.10 IU/mL 10/30/2023 4:25 AM EST [facility] Comment: Unfractionated therapeutic ranges for Anti Xa activity: For Cardiac/Neurologic treatment: 0.3 to 0.6 IU/mL. For treatment of DVT or Pulmonary Embolism: 0.3 to 0.7 IU/mL. Blood Venous blood specimen / Unknown Venipuncture / Unknown 10/30/2023 4:01 AM EST 10/30/2023 4:06 AM EST Evan Lombardo MD LAB BLOOD ORDERABL ES Performing Organization Address [facility] Co de Phone Number [facility] [address] [place] [address] * (ABNORMAL) HEPARIN, UNFRACTIONATED (10/29/2023 9:46 PM EST) Heparin, Unfractionated 0.34(H) <0.10 IU/mL 10/29/2023 10:40 PM EST [facility] Comment: Unfractionated therapeutic ranges for Anti Xa activity: For Cardiac/Neurologic treatment: 0.3 to 0.6 IU/mL. For treatment of DVT or Pulmonary Embolism: 0.3 to 0.7 IU/mL. Blood Venous blood specimen / Unknown Venipuncture / Unknown 10/29/2023 9:46 PM EST 10/29/2023 10:13 PM EST Evan Lombardo MD LAB BLOOD ORDERABL ES Performing Organization Address City/[facility]/ZIP Co de Phone Number [facility] [address] [place] [address] * (ABNORMAL) BASIC METABOLIC PANEL (10/29/2023 9:46 PM EST) BUN 32(H) 6 - 20 mg/dL 10/29/2023 10:40 PM EST [facility] Creatinine 0.8 0.5 - 1.0 mg/dL 10/29/2023 10:40 PM EST [facility] Estimated Glomerular Filtration Rate 83 >=60 mL/min 10/29/2023 10:40 PM EST [facility] Comment:eGFR is calculated b ased on the CKD-EPI 2020 equation Sodium 140 135 - 146 mmol/L 10/29/2023 10:40 PM EST [facility] Potassium 4.2 3.5 - 5.1 mmol/L 10/29/2023 10:40 PM EST [facility] Chloride 109(H) 98 - 107 mmol/L 10/29/2023 10:40 PM EST [facility] CO2 20(L) 22 - 32 mmol/L 10/29/2023 10:40 PM EST [facility] Anion Gap 11 7 - 15 mmol/L 10/29/2023 10:40 PM EST [facility] Glucose 107 70 - 120 mg/dL 10/29/2023 10:40 PM EST [facility] Calcium 9.2 8.4 - 10.2 mg/dL 10/29/2023 10:40 PM EST [facility] Blood Venous blood specimen / Unknown Venipuncture / Unknown 10/29/2023 9:46 PM EST 10/29/2023 10:13 PM EST Susan Milian PA-C LAB BLOOD ORDERABLES Performing Organization Address [facility] Phone Number [facility] [address] [place] [address] * XR ABDOMEN 1 VIEW (10/29/2023 2:38 PM EST) Anatomical Region Laterality Modality Abdomen, Pelvis Computed Radiogr aphy 10/29/2023 2:54 PM EST Impressions 10/29/2023 2:52 PM EST IMPRESSION Redemonstrated gaseous distension of loops of bowel. Narrative 10/29/2023 2:52 PM EST EXAM XR ABDOMEN 1 VIEW - 10/29/2023 2:38 pm HISTORY Colonic distention TECHNIQUE XR ABDOMEN 1 VIEW COMPARISON 10/28/2023. FINDINGS Bones/Hardware/Other: No acute osseous findings. Abdomen: Redemonstrated gaseous distension of loops of bowel, with air to the level of the rectum. Procedure Note Yohan Nation MD - 10/29/2023 EXAM XR ABDOMEN 1 VIEW - 10/29/2023 2:38 pm HISTORY Colonic distention TECHNIQUE XR ABDOMEN 1 VIEW COMPARISON 10/28/2023. FINDINGS Bones/Hardware/Other: No acute osseous findings. Abdomen: Redemonstrated gaseous distension of loops of bowel, with air tothe level of the rectum. IMPRESSION IMPRESSION Redemonstrated gaseous distension of loops of bowel. Evan Lombardo MD RADIOLOGY (RAD GEN ERAL) * HEPARIN, UNFRACTIONATED (10/29/2023 1:53 PM EST) Heparin, Unfractionated <0.10 <0.10 IU/mL 10/29/2023 2:35 PM EST [facility] Comment: Unfractionated therapeutic ranges for Anti Xa activity: For Cardiac/Neurologic treatment: 0.3 to 0.6 IU/mL. For treatment of DVT or Pulmonary Embolism: 0.3 to 0.7 IU/mL. Blood Venous blood specimen / Unknown Venipuncture / Unknown 10/29/2023 1:53 PM EST 10/29/2023 2:11 PM EST Evan Lombardo MD LAB BLOOD ORDERABL ES LABORATORY [facility] [address] [place] [address] * (ABNORMAL) CBC (10/29/2023 1:53 PM EST) WBC 5.41 4.00 - 10.80 K/uL 10/29/2023 2:31 PM EST LABORATORY [facility] RBC 5.01 3.85 - 5.15 M/uL 10/29/2023 2:31 PM EST LAB[facility]ATORY [facility] HGB 15.0 12.0 - 15.3 g/dL 10/29/2023 2:31 PM EST LAB[facility]ATORY [facility] HCT 45.8(H) 36.0 - 45.2 % 10/29/2023 2:31 PM EST LAB[facility]AT[facility] MCV 91.4 81.5 - 97.5 fL 10/29/2023 2:31 PM EST LAB[facility]AT[facility] MCH 29.9 27.0 - 34.0 pg 10/29/2023 2:31 PM EST [facility] MCHC 32.8 32.0 - 36.0 g/dL 10/29/2023 2:31 PM EST [facility] RDW 14.4 11.5 - 15.5 % 10/29/2023 2:31 PM EST [facility] PLT 225 140 - 400 K/uL 10/29/2023 2:31 PM EST [facility] MPV 9.9 6.6 - 11.1 fL 10/29/2023 2:31 PM EST [facility] nRBCs 0 <=0 /100 WBCs 10/29/2023 2:31 PM EST [facility] Blood Venous blood specimen / Unknown Venipuncture / Unknown 10/29/2023 1:53 PM EST 10/29/2023 2:12 PM EST Evan Lombardo MD LAB BLOOD ORDERABL ES LAB[facility]ATORY [facility] [address] [place] [address] * APTT (10/29/2023 1:53 PM EST) aPTT 29 21 - 38 seconds 10/29/2023 2:36 PM EST [facility] Blood Venous blood specimen / Unknown Venipuncture / Unknown 10/29/2023 1:53 PM EST 10/29/2023 2:11 PM EST Narrative LABORATORY [facility] - 10/29/2023 2:36 PM EST Anticoagulation may affect testing. Refer to [employer] Test Catalog for a list of effects. Evan Lombardo MD LAB BLOOD ORDERABL ES [facility] [address] [place] [address] * PT INR (10/29/2023 1:53 PM EST) Prothrombin Time 13.9 11.6 - 15.2 seconds 10/29/2023 2:35 PM EST LAB[facility]ATORY [facility] INR 1.0 0.8 - 1.2 10/29/2023 2:35 PM EST LABORATORY GM Blood Venous blood specimen / Unknown Venipuncture / Unknown 10/29/2023 1:53 PM EST 10/29/2023 2:11 PM EST Narrative LABORATORY GM - 10/29/2023 2:35 PM EST Warfarin Therapy INR: 2.0-3.0 conventional anticoagulation INR: 2.5-3.5 high intensity anticoagulation Evan Lombardo MD LAB BLOOD ORDERABL ES LAB[facility]AT[facility] [address] [place] [address] * (ABNORMAL) BASIC METABOLIC PANEL (10/29/2023 6:13 AM EST) BUN 42(H) 6 - 20 mg/dL 10/29/2023 6:47 AM EST LAB[facility]ATORY [facility] Creatinine 0.9 0.5 - 1.0 mg/dL 10/29/2023 6:47 AM EST LABORATORY [facility] Estimated Glomerular Filtration Rate 68 >=60 mL/min 10/29/2023 6:47 AM EST LAB[facility]ATORY [facility] Comment:eGFR is calculated b ased on the CKD-EPI 2020 equation Sodium 135 135 - 146 mmol/L 10/29/2023 6:47 AM EST LABORATORY [facility] Potassium 3.3(L) 3.5 - 5.1 mmol/L 10/29/2023 6:47 AM EST LABORATORY [facility] Chloride 104 98 - 107 mmol/L 10/29/2023 6:47 AM EST LAB[facility]ATORY [facility] CO2 15(L) 22 - 32 mmol/L 10/29/2023 6:47 AM EST LAB[facility]ATORY [facility] Anion Gap 16(H) 7 - 15 mmol/L 10/29/2023 6:47 AM EST LAB[facility]ATORY [facility] Glucose 142(H) 70 - 120 mg/dL 10/29/2023 6:47 AM EST LAB[facility] Calcium 9.4 8.4 - 10.2 mg/dL 10/29/2023 6:47 AM EST LABORATORY GM Blood Venous blood specimen / Unknown Venipuncture / Unknown 10/29/2023 6:13 AM EST 10/29/2023 6:17 AM EST Susan NIETOC LAB BLOOD ORDERABLES Performing Organization Address [facility] Co de Phone Number [facility] [address] [place] [address] * PHOSPHORUS (10/29/2023 6:13 AM EST) Phosphorus 2.6 2.5 - 4.8 mg/dL 10/29/2023 6:47 AM EST LABORATORY C Blood Venous blood specimen / Unknown Venipuncture / Unknown 10/29/2023 6:13 AM EST 10/29/2023 6:17 AM EST Susan NIETOC LAB BLOOD ORDERABLES Performing Organization Address [facility] Co de Phone Number [facility] [address] [place] [address] * (ABNORMAL) MAGNESIUM (10/29/2023 6:13 AM EST) Magnesium 2.7(H) 1.5 - 2.6 mg/dL 10/29/2023 6:47 AM EST LABORATORY C Blood Venous blood specimen / Unknown Venipuncture / Unknown 10/29/2023 6:13 AM EST 10/29/2023 6:17 AM EST Susan NIETOC LAB BLOOD ORDERABLES Performing Organization Address [facility] Co de Phone Number [facility] [address] [place] [address] * PT INR (10/29/2023 6:13 AM EST) Prothrombin Time 14.0 11.6 - 15.2 seconds 10/29/2023 6:42 AM EST LAB[facility]ATORY [facility] INR 1.1 0.8 - 1.2 10/29/2023 6:42 AM EST LAB[facility]ATORY [facility] Blood Venous blood specimen / Unknown Venipuncture / Unknown 10/29/2023 6:13 AM EST 10/29/2023 6:17 AM EST Narrative LAB[facility]ATORY [facility] - 10/29/2023 6:42 AM EST Warfarin Therapy INR: 2.0-3.0 conventional anticoagulation INR: 2.5-3.5 high intensity anticoagulation Susan Milian PA-C LAB BLOOD ORDERABLES LAB[facility]ATORY [facility] [address] [place] [id number] * (ABNORMAL) CBC (10/29/2023 6:13 AM EST) Pathologist [facility] WBC 5.59 4.00 - 10.80 K/uL 10/29/2023 6:29 AM EST LABORATORY [facility] RBC 5.10 3.85 - 5.15 M/uL 10/29/2023 6:29 AM EST LAB[facility]ATORY [facility] HGB 15.0 12.0 - 15.3 g/dL 10/29/2023 6:29 AM EST LAB[facility]ATORY [facility] HCT 45.9(H) 36.0 - 45.2 % 10/29/2023 6:29 AM EST LAB[facility]AT[facility] MCV 90.0 81.5 - 97.5 fL 10/29/2023 6:29 AM EST LAB[facility]ATORY [facility] MCH 29.4 27.0 - 34.0 pg 10/29/2023 6:29 AM EST LAB[facility]ORY [facility] MCHC 32.7 32.0 - 36.0 g/dL 10/29/2023 6:29 AM EST LABORATORY GM RDW 14.2 11.5 - 15.5 % 10/29/2023 6:29 AM EST LABORATORY GM PLT 234 140 - 400 K/uL 10/29/2023 6:29 AM EST LABORATORY GM MPV 10.2 6.6 - 11.1 fL 10/29/2023 6:29 AM EST LABORATORY GM nRBCs 0 <=0 /100 WBCs 10/29/2023 6:29 AM EST LABORATORY GM Blood Venous blood specimen / Unknown Venipuncture / Unknown 10/29/2023 6:13 AM EST 10/29/2023 6:17 AM EST Susan Milian PA-C LAB BLOOD ORDERABLES LAB[facility]ATORY [facility] [address] [place] [address] * (ABNORMAL) APTT (10/29/2023 6:13 AM EST) aPTT 73(H) 21 - 38 seconds 10/29/2023 6:44 AM EST [facility] Blood Venous blood specimen / Unknown Venipuncture / Unknown 10/29/2023 6:13 AM EST 10/29/2023 6:17 AM EST Narrative LAB[facility]AT[facility] - 10/29/2023 6:44 AM EST Anticoagulation may affect testing. Refer to [employer] Test Catalog for a list of effects. Evan Lombardo MD LAB BLOOD ORDERABL ES LAB[facility]ATORY [facility] [address] [place] [address] * (ABNORMAL) BASIC METABOLIC PANEL (10/28/2023 6:32 PM EST) BUN 45(H) 6 - 20 mg/dL 10/28/2023 7:10 PM EST [facility] Creatinine 1.0 0.5 - 1.0 mg/dL 10/28/2023 7:10 PM EST [facility] Estimated Glomerular Filtration Rate 61 >=60 mL/min 10/28/2023 7:10 PM EST [facility] Comment:eGFR is calculated b ased on the CKD-EPI 2020 equation Sodium 137 135 - 146 mmol/L 10/28/2023 7:10 PM EST LABORATORY [facility] Potassium 3.4(L) 3.5 - 5.1 mmol/L 10/28/2023 7:10 PM EST LAB[facility]AT[facility] Chloride 104 98 - 107 mmol/L 10/28/2023 7:10 PM EST LAB[facility]AT[facility] CO2 19(L) 22 - 32 mmol/L 10/28/2023 7:10 PM EST LABORATORY [facility] Anion Gap 14 7 - 15 mmol/L 10/28/2023 7:10 PM EST [facility]ORY [facility] Glucose 129(H) 70 - 120 mg/dL 10/28/2023 7:10 PM EST LABORATORY [facility] Calcium 9.2 8.4 - 10.2 mg/dL 10/28/2023 7:10 PM EST [facility] Blood Venous blood specimen / Unknown Venipuncture / Unknown 10/28/2023 6:32 PM EST 10/28/2023 6:41 PM EST Susan Milian PA-C LAB BLOOD ORDERABLES LAB[facility]AT[facility] [address] [place] [address] * XR ABDOMEN 1 VIEW (10/28/2023 10:05 AM EST) Anatomical Region Laterality Modality Abdomen, Pelvis Computed Radiogr aphy 10/28/2023 10:5 8 AM EST Impressions 10/28/2023 10:56 AM EST IMPRESSION Diffuse colonic dilatation, slightly improved from 10/27/2023. Narrative 10/28/2023 10:56 AM EST EXAM XR ABDOMEN 1 VIEW-10/28/2023 10:05 am HISTORY Colonic pseudoobstruction COMPARISON Abdominal radiographs from 10/27/2023 TECHNIQUE Two portable supine AP radiographs of the abdomen were obtained at 0955 hours. FINDINGS Again noted are dilated loops of colon, predominantly on the right. The cecum measures approximately 12.7 cm and is not significantly changed from the prior examination. No gross free intraperitoneal air is identified on this supine examination. There are degenerative changes in the spine. There are vascular calcifications in the left upper quadrant of the abdomen. Procedure Note Go, Wing Brooks MD - 10/28/2023 EXAM XR ABDOMEN 1 VIEW-10/28/2023 10:05 am HISTORY Colonic pseudoobstruction COMPARISON Abdominal radiographs from 10/27/2023 TECHNIQUE Two portable supine AP radiographs of the abdomen were obtained at 0955hours. FINDINGS Again noted are dilated loops of colon, predominantly on the right. Thececum measures approximately 12.7 cm and is not significantly changed fromthe prior examination. No gross free intraperitoneal air is identified on this supineexamination. There are degenerative changes in the spine. There are vascularcalcifications in the left upper quadrant of the abdomen. IMPRESSION IMPRESSION Diffuse colonic dilatation, slightly improved from 10/27/2023. Susan Milian PA-C RADIOLOGY (RAD GENER AL) * (ABNORMAL) BASIC METABOLIC PANEL (10/28/2023 5:32 AM EST) BUN 53(H) 6 - 20 mg/dL 10/28/2023 6:33 AM EST LABORATORY [facility] Creatinine 1.1(H) 0.5 - 1.0 mg/dL 10/28/2023 6:33 AM EST LABORATORY [facility] Estimated Glomerular Filtration Rate 54(L) >=60 mL/min 10/28/2023 6:33 AM EST LAB[facility]ATORY [facility] Comment:eGFR is calculated b ased on the CKD-EPI 2020 equation Sodium 136 135 - 146 mmol/L 10/28/2023 6:33 AM EST LAB[facility]ATORY [facility] Potassium 3.7 3.5 - 5.1 mmol/L 10/28/2023 6:33 AM EST LAB[facility]ATORY [facility] Chloride 105 98 - 107 mmol/L 10/28/2023 6:33 AM EST LAB[facility]ATORY [facility] CO2 18(L) 22 - 32 mmol/L 10/28/2023 6:33 AM EST LAB[facility]ATORY [facility] Anion Gap 13 7 - 15 mmol/L 10/28/2023 6:33 AM EST LAB[facility]ATORY [facility] Glucose 107 70 - 120 mg/dL 10/28/2023 6:33 AM EST LAB[facility]ATORY [facility] Calcium 9.3 8.4 - 10.2 mg/dL 10/28/2023 6:33 AM EST LAB[facility]ATORY [facility] Blood Venous blood specimen / Unknown Venipuncture / Unknown 10/28/2023 5:32 AM EST 10/28/2023 5:57 AM EST Susan Milian PA-C LAB BLOOD ORDERABLES LABORATORY [facility] [address] [place] [address] * PHOSPHORUS (10/28/2023 5:32 AM EST) Phosphorus 3.5 2.5 - 4.8 mg/dL 10/28/2023 6:33 AM EST LABORATORY [facility] Blood Venous blood specimen / Unknown Venipuncture / Unknown 10/28/2023 5:32 AM EST 10/28/2023 5:57 AM EST Susan BRYANT-C LAB BLOOD ORDERABLES LAB[facility]ATORY [facility] [address] [place] [address] * (ABNORMAL) MAGNESIUM (10/28/2023 5:32 AM EST) Magnesium 3.1(H) 1.5 - 2.6 mg/dL 10/28/2023 6:33 AM EST [facility] Blood Venous blood specimen / Unknown Venipuncture / Unknown 10/28/2023 5:32 AM EST 10/28/2023 5:57 AM EST Susan BRYANT-C LAB BLOOD ORDERABLES Performing Organization Address [facility] Co de Phone Number [facility] [address] [place] [address] * PT INR (10/28/2023 5:32 AM EST) Prothrombin Time 14.1 11.6 - 15.2 seconds 10/28/2023 6:26 AM EST LAB[facility] INR 1.1 0.8 - 1.2 10/28/2023 6:26 AM EST [facility] Blood Venous blood specimen / Unknown Venipuncture / Unknown 10/28/2023 5:32 AM EST 10/28/2023 5:57 AM EST Narrative LABORATORY [facility] - 10/28/2023 6:26 AM EST Warfarin Therapy INR: 2.0-3.0 conventional anticoagulation INR: 2.5-3.5 high intensity anticoagulation Susan BRYANT-C LAB BLOOD ORDERABLES Performing Organization Address City/[facility]/ZIP Co de Phone Number LABORATORY [facility] [address] [place] [address] * CBC (10/28/2023 5:32 AM EST) WBC 5.65 4.00 - 10.80 K/uL 10/28/2023 6:15 AM EST LABORATORY C RBC 4.88 3.85 - 5.15 M/uL 10/28/2023 6:15 AM EST LABORATORY [facility] HGB 14.6 12.0 - 15.3 g/dL 10/28/2023 6:15 AM EST LAB[facility]ATORY [facility] HCT 44.3 36.0 - 45.2 % 10/28/2023 6:15 AM EST LAB[facility]ATORY [facility] MCV 90.8 81.5 - 97.5 fL 10/28/2023 6:15 AM EST LAB[facility]ATORY [facility] MCH 29.9 27.0 - 34.0 pg 10/28/2023 6:15 AM EST LAB[facility]ATORY [facility] MCHC 33.0 32.0 - 36.0 g/dL 10/28/2023 6:15 AM EST LABORATORY [facility] RDW 14.5 11.5 - 15.5 % 10/28/2023 6:15 AM EST LABORATORY [facility] PLT 212 140 - 400 K/uL 10/28/2023 6:15 AM EST LABORATORY GM MPV 10.3 6.6 - 11.1 fL 10/28/2023 6:15 AM EST [facility] nRBCs 0 <=0 /100 WBCs 10/28/2023 6:15 AM EST LABORATORY [facility] Blood Venous blood specimen / Unknown Venipuncture / Unknown 10/28/2023 5:32 AM EST 10/28/2023 5:57 AM EST Susan Milian PA-C LAB BLOOD ORDERABLES Performing Organization Address City/State/[facility] Co de Phone Number LAB[facility] [address] [place] [address] * (ABNORMAL) APTT (10/28/2023 5:32 AM EST) aPTT 74(H) 21 - 38 seconds 10/28/2023 6:28 AM EST LABORATORY [facility] Blood Venous blood specimen / Unknown Venipuncture / Unknown 10/28/2023 5:32 AM EST 10/28/2023 5:57 AM EST Narrative LABORATORY [facility] - 10/28/2023 6:28 AM EST Anticoagulation may affect testing. Refer to [employer] Test Catalog for a list of effects. Susan Maicol GALLEGOS LAB BLOOD ORDERABLES LAB[facility]ATORY [facility] [address] [place] [address] * (ABNORMAL) BASIC METABOLIC PANEL (10/27/2023 3:28 PM EST) BUN 63(H) 6 - 20 mg/dL 10/27/2023 4:02 PM EST LABORATORY [facility] Creatinine 1.3(H) 0.5 - 1.0 mg/dL 10/27/2023 4:02 PM EST LABORATORY [facility] Estimated Glomerular Filtration Rate 45(L) >=60 mL/min 10/27/2023 4:02 PM EST LABORATORY [facility] Comment:eGFR is calculated b ased on the CKD-EPI 2020 equation Sodium 134(L) 135 - 146 mmol/L 10/27/2023 4:02 PM EST LABORATORY [facility] Potassium 4.0 3.5 - 5.1 mmol/L 10/27/2023 4:02 PM EST LAB[facility]ATORY [facility] Chloride 101 98 - 107 mmol/L 10/27/2023 4:02 PM EST LAB[facility]ATORY [facility] CO2 18(L) 22 - 32 mmol/L 10/27/2023 4:02 PM EST LABORATORY [facility] Anion Gap 15 7 - 15 mmol/L 10/27/2023 4:02 PM EST LABORATORY [facility] Glucose 104 70 - 120 mg/dL 10/27/2023 4:02 PM EST LAB[facility]ATORY [facility] Calcium 9.6 8.4 - 10.2 mg/dL 10/27/2023 4:02 PM EST LABORATORY [facility] Blood Venous blood specimen / Unknown Venipuncture / Unknown 10/27/2023 3:28 PM EST 10/27/2023 3:31 PM EST Susan Milian ANNETTEPaulaAj LAB BLOOD ORDERABLES [facility]AT[facility] [address] [place] [address] * XR ABDOMEN 1 VIEW (10/27/2023 12:34 PM EST) Anatomical Region Laterality Modality Abdomen, Pelvis Computed Radiogr aphy 10/27/2023 1:05 PM EST Impressions 10/27/2023 1:03 PM EST IMPRESSION Moderate diffuse colonic distension, mildly improved Narrative 10/27/2023 1:03 PM EST EXAM Abdomen-10/27/2023 12:34 pm HISTORY Colonic pseudoobstruction COMPARISON 10/26/2023 TECHNIQUE AP views FINDINGS No gross free air on this AP view. Diffuse colonic distension with cecum measuring 12.7 cm, mildly improved. No evidence for pneumatosis. No evidence for dilated small bowel loops. Arterial vascular calcifications. Procedure Note Paulino Fowler, DO - 10/27/2023 EXAM Abdomen-10/27/2023 12:34 pm HISTORY Colonic pseudoobstruction COMPARISON 10/26/2023 TECHNIQUE AP views FINDINGS No gross free air on this AP view. Diffuse colonic distension with cecummeasuring 12.7 cm, mildly improved. No evidence for pneumatosis. Noevidence for dilated small bowel loops. Arterial vascularcalcifications. IMPRESSION IMPRESSION Moderate diffuse colonic distension, mildly improved Owen Fontanez MD RADIOLOGY (RAD GENER AL) * (ABNORMAL) APTT (10/27/2023 5:14 AM EST) aPTT 78(H) 21 - 38 seconds 10/27/2023 6:10 AM EST [facility] Blood Venous blood specimen / Unknown Venipuncture / Unknown 10/27/2023 5:14 AM EST 10/27/2023 5:40 AM EST Narrative LAB[facility] - 10/27/2023 6:10 AM EST Anticoagulation may affect testing. Refer to [facility] Test Catalog for a list of effects. Susan Milian PA-C LAB BLOOD ORDERABLES LAB[facility]AT[facility] [address] [place] [address] * (ABNORMAL) BASIC METABOLIC PANEL (10/27/2023 5:14 AM EST) BUN 62(H) 6 - 20 mg/dL 10/27/2023 6:15 AM EST [facility]ORY [facility] Creatinine 1.4(H) 0.5 - 1.0 mg/dL 10/27/2023 6:15 AM EST LABORATORY [facility] Estimated Glomerular Filtration Rate 41(L) >=60 mL/min 10/27/2023 6:15 AM EST LABORATORY [facility] Comment:eGFR is calculated b ased on the CKD-EPI 2020 equation Sodium 136 135 - 146 mmol/L 10/27/2023 6:15 AM EST LABORATORY [facility] Potassium 3.8 3.5 - 5.1 mmol/L 10/27/2023 6:15 AM EST LABORATORY [facility] Chloride 102 98 - 107 mmol/L 10/27/2023 6:15 AM EST LAB[facility]ATORY [facility] CO2 15(L) 22 - 32 mmol/L 10/27/2023 6:15 AM EST LABORATORY [facility] Anion Gap 19(H) 7 - 15 mmol/L 10/27/2023 6:15 AM EST LABORATORY [facility] Glucose 109 70 - 120 mg/dL 10/27/2023 6:15 AM EST LABORATORY [facility] Calcium 9.5 8.4 - 10.2 mg/dL 10/27/2023 6:15 AM EST LAB[facility]ATORY [facility] Blood Venous blood specimen / Unknown Venipuncture / Unknown 10/27/2023 5:14 AM EST 10/27/2023 5:40 AM EST Susan Milian PA-C LAB BLOOD ORDERABLES LAB[facility]ATORY [facility] [address] [place] [address] * (ABNORMAL) PHOSPHORUS (10/27/2023 5:14 AM EST) Phosphorus 5.1(H) 2.5 - 4.8 mg/dL 10/27/2023 6:15 AM EST LABORATORY [facility] Blood Venous blood specimen / Unknown Venipuncture / Unknown 10/27/2023 5:14 AM EST 10/27/2023 5:40 AM EST Susan BRYANT-Aj LAB BLOOD ORDERABLES LAB[facility]ATORY [facility] [address] [place] [address] * (ABNORMAL) MAGNESIUM (10/27/2023 5:14 AM EST) Magnesium 3.2(H) 1.5 - 2.6 mg/dL 10/27/2023 6:15 AM EST [facility] Blood Venous blood specimen / Unknown Venipuncture / Unknown 10/27/2023 5:14 AM EST 10/27/2023 5:40 AM EST Susan Maicol NIETOC LAB BLOOD ORDERABLES Performing Organization Address [facility] Co de Phone Number [facility] [address] [place] [address] * PT INR (10/27/2023 5:14 AM EST) Prothrombin Time 14.0 11.6 - 15.2 seconds 10/27/2023 6:09 AM EST [facility] INR 1.1 0.8 - 1.2 10/27/2023 6:09 AM EST [facility] Blood Venous blood specimen / Unknown Venipuncture / Unknown 10/27/2023 5:14 AM EST 10/27/2023 5:40 AM EST Narrative LABORATORY [facility] - 10/27/2023 6:09 AM EST Warfarin Therapy INR: 2.0-3.0 conventional anticoagulation INR: 2.5-3.5 high intensity anticoagulation Susan BRYANT-C LAB BLOOD ORDERABLES Performing Organization Address [facility] Co de Phone Number [facility] [address] [place] [address] * (ABNORMAL) CBC (10/27/2023 5:14 AM EST) WBC 5.02 4.00 - 10.80 K/uL 10/27/2023 5:56 AM EST LABORATORY [facility] RBC 5.28 3.85 - 5.15 M/uL 10/27/2023 5:56 AM EST LABORATORY [facility] HGB 15.5(H) 12.0 - 15.3 g/dL 10/27/2023 5:56 AM EST LABORATORY [facility] HCT 46.9(H) 36.0 - 45.2 % 10/27/2023 5:56 AM EST LAB[facility]ATORY [facility] MCV 88.8 81.5 - 97.5 fL 10/27/2023 5:56 AM EST LABORATORY [facility] MCH 29.4 27.0 - 34.0 pg 10/27/2023 5:56 AM EST LABORATORY [facility] MCHC 33.0 32.0 - 36.0 g/dL 10/27/2023 5:56 AM EST LABORATORY [facility] RDW 14.5 11.5 - 15.5 % 10/27/2023 5:56 AM EST LABORATORY [facility] PLT 233 140 - 400 K/uL 10/27/2023 5:56 AM EST LABORATORY [facility] MPV 10.2 6.6 - 11.1 fL 10/27/2023 5:56 AM EST LABORATORY [facility] nRBCs 0 <=0 /100 WBCs 10/27/2023 5:56 AM EST LABORATORY [facility] Blood Venous blood specimen / Unknown Venipuncture / Unknown 10/27/2023 5:14 AM EST 10/27/2023 5:40 AM EST Susan Milian PA-C LAB BLOOD ORDERABLES LAB[facility]AT[facility] [address] [place] [address] * (ABNORMAL) BASIC METABOLIC PANEL (10/26/2023 3:33 PM EST) BUN 60(H) 6 - 20 mg/dL 10/26/2023 4:06 PM EST LABORATORY [facility] Creatinine 1.4(H) 0.5 - 1.0 mg/dL 10/26/2023 4:06 PM EST LABORATORY [facility] Estimated Glomerular Filtration Rate 41(L) >=60 mL/min 10/26/2023 4:06 PM EST LABORATORY [facility] Comment:eGFR is calculated b ased on the CKD-EPI 2020 equation Sodium 136 135 - 146 mmol/L 10/26/2023 4:06 PM EST LAB[facility]ATORY [facility] Potassium 3.8 3.5 - 5.1 mmol/L 10/26/2023 4:06 PM EST LAB[facility]ATORY [facility] Chloride 102 98 - 107 mmol/L 10/26/2023 4:06 PM EST [facility] CO2 18(L) 22 - 32 mmol/L 10/26/2023 4:06 PM EST [facility] Anion Gap 16(H) 7 - 15 mmol/L 10/26/2023 4:06 PM EST [facility] Glucose 105 70 - 120 mg/dL 10/26/2023 4:06 PM EST LABORATORY [facility] Calcium 9.2 8.4 - 10.2 mg/dL 10/26/2023 4:06 PM EST [facility] Blood Venous blood specimen / Unknown Venipuncture / Unknown 10/26/2023 3:33 PM EST 10/26/2023 3:39 PM EST Susan Milian PA-C LAB BLOOD ORDERABLES LAB[facility]ATORY [facility] [address] [place] [address] * XR ABDOMEN 1 VIEW (10/26/2023 2:50 PM EST) Anatomical Region Laterality Modality Abdomen, Pelvis Computed Radiogr aphy 10/26/2023 3:52 PM EST Impressions 10/26/2023 3:56 PM EST IMPRESSION Unchanged gaseous distension of the cecum measuring 14.7 cm suggesting [place] syndrome. I have personally reviewed this examination and agree with the resident/fellow physician's interpretation. Narrative 10/26/2023 3:56 PM EST EXAM XR ABDOMEN 1 VIEW - 10/26/2023 2:50 pm HISTORY R/O Obstruction COMPARISON Abdomen x-ray dated 10/26/2023 in the morning TECHNIQUE SupineAP view of the abdomen and pelvis. FINDINGS Dilated cecum measures 14.7 cm, unchanged compared to prior x-ray. Partially visualized dilated bowel loops. Procedure Note Stanley Puente MD - 10/26/2023 EXAM XR ABDOMEN 1 VIEW - 10/26/2023 2:50 pm HISTORY R/O Obstruction COMPARISON Abdomen x-ray dated 10/26/2023 in the morning TECHNIQUE SupineAP view of the abdomen and pelvis. FINDINGS Dilated cecum measures 14.7 cm, unchanged compared to prior x-ray.Partially visualized dilated bowel loops. 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 I have personally reviewed this examination and agree with the resident/fellow physician's interpretation. Owen Fontanez MD RADIOLOGY (RAD GENER AL) * (ABNORMAL) GASTROINTESTINAL PATHOGEN PANEL CULTURE (10/26/2023 11:43 AM EST) Culture Growth Yeast(A) 10/29/2023 11:13 AM EST [facility] Stool Stool specimen / Unknown Non-blood Collection / Unknown 10/26/2023 11:43 AM EST 10/26/2023 12:07 PM EST Narrative [facility] - 10/29/2023 11:13 AM EST No Aeromonas species or Plesiomonas species isolated. Microbial imbalance observed Reduced normal betty. Clinical correlation needed. Owen Fontanez MD LAB MICRO - GENERAL ORDERABLES [facility] [address] [place] [address] * GASTROINTESTINAL PATHOGEN PANEL PCR (10/26/2023 11:43 AM EST) Campylobacter group by PCR Negative Negative 10/26/2023 7:51 PM EST [facility] Salmonella species by PCR Negative Negative 10/26/2023 7:51 PM EST [facility] Shigella species by PCR Negative Negative 10/26/2023 7:51 PM EST [facility] Vibrio group by PCR Negative Negative 10/26/2023 7:51 PM EST [facility] Yersinia enterocolitica by PCR Negative Negative 10/26/2023 7:51 PM EST [facility] Shiga Toxin 1 Gene by PCR Negative Negative 10/26/2023 7:51 PM EST [facility] Shiga Toxin 2 Gene by PCR Negative Negative 10/26/2023 7:51 PM EST [facility] Norovirus by PCR Negative Negative 10/26/19 7:51 PM EST [facility] Rotavirus by PCR Negative Negative 10/26/19 7:51 PM EST [facility] Stool Stool specimen / Unknown Non-blood Collection / Unknown 10/26/2023 11:43 AM EST 10/26/2023 12:07 PM EST Owen Fontanez MD LAB MICRO - GENERAL ORDERABLES Performing Organization Address City/[facility]/ZIP Co de Phone Number [facility] [address] [place] [address] * CLOSTRIDIUM DIFFICILE, PCR (10/26/2023 11:43 AM EST) Stool Consistency Liquid 10/26/2023 1:25 PM EST [facility] Clostridium difficile Result Negative. No C. difficile toxin B gene DNA detected by PCR (Amplified Probe). Negative 10/26/2023 1:25 PM EST [facility] Stool Stool specimen / Unknown Non-blood Collection / Unknown 10/26/2023 11:43 AM EST 10/26/2023 12:07 PM EST Owen Fontanez MD LAB MICRO - GENERAL ORDERABLES Performing Organization Address [facility] Co de Phone Number LABORATORY [address] [address] * XR ABDOMEN 1 VIEW (10/26/2023 6:23 AM EST) Anatomical Region Laterality Modality Abdomen, Pelvis Computed Radiogr aphy 10/26/2023 8:41 AM EST Impressions 10/26/2023 8:39 AM EST IMPRESSION Similar gaseous dilation of large bowel. Narrative 10/26/2023 8:39 AM EST EXAM XR ABDOMEN 1 VIEW - 10/26/2023 6:23 am HISTORY R/O Obstruction COMPARISON Radiographs 10/25/[address] 10/21/2023. TECHNIQUE AP views of the abdomen and pelvis. FINDINGS Similar marked gaseous distension of cecum measuring 14.6 cm. Diffuse gaseous dilation of the remaining colon is seen. There are no dilated small bowel loops. Degenerative osseous changes. Atherosclerosis. Procedure Note Yao Lund MD - 10/26/2023 EXAM XR ABDOMEN 1 VIEW - 10/26/2023 6:23 am HISTORY R/O Obstruction COMPARISON Radiographs 10/25/[address] 10/21/2023. TECHNIQUE AP views of the abdomen and pelvis. FINDINGS Similar marked gaseous distension of cecum measuring 14.6 cm. Diffusegaseous dilation of the remaining colon is seen. There are no dilatedsmall bowel loops. Degenerative osseous changes. Atherosclerosis. IMPRESSION IMPRESSION Similar gaseous dilation of large bowel. Yuliet Guzman MD RADIOLOGY (RAD GENER AL) * (ABNORMAL) APTT (10/26/2023 4:38 AM EST) aPTT 82(H) 21 - 38 seconds 10/26/2023 5:45 AM EST [facility] Blood Venous blood specimen / Unknown Venipuncture / Unknown 10/26/2023 4:38 AM EST 10/26/2023 5:19 AM EST Narrative [facility] - 10/26/2023 5:45 AM EST Anticoagulation may affect testing. Refer to [employer] for a list of effects. Susan Milian PA-C LAB BLOOD ORDERABLES Performing Organization Address City/[facility]/ZIP Co de Phone Number LABORATORY [address] [address] * PT INR (10/26/2023 4:38 AM EST) Pathologist [facility] Prothrombin Time 13.8 11.6 - 15.2 seconds 10/26/2023 5:42 AM EST [facility] INR 1.0 0.8 - 1.2 10/26/2023 5:42 AM EST [facility] Blood Venous blood specimen / Unknown Venipuncture / Unknown 10/26/2023 4:38 AM EST 10/26/2023 5:19 AM EST Narrative [facility] - 10/26/2023 5:42 AM EST Warfarin Therapy INR: 2.0-3.0 conventional anticoagulation INR: 2.5-3.5 high intensity anticoagulation Susan Milian PA-C LAB BLOOD ORDERABLES Performing Organization Address City/[facility]/ZIP Co de Phone Number LABORATORY [place] [address] [place] [address] * (ABNORMAL) BASIC METABOLIC PANEL (10/26/2023 4:37 AM EST) BUN 58(H) 6 - 20 mg/dL 10/26/2023 5:49 AM EST LAB[facility]ATORY [facility] Creatinine 1.6(H) 0.5 - 1.0 mg/dL 10/26/2023 5:49 AM EST LAB[facility]ATORY [facility] Estimated Glomerular Filtration Rate 35(L) >=60 mL/min 10/26/2023 5:49 AM EST LAB[facility]ATORY [facility] Comment:eGFR is calculated b ased on the CKD-EPI 2020 equation Sodium 135 135 - 146 mmol/L 10/26/2023 5:49 AM EST LAB[facility] Potassium 4.2 3.5 - 5.1 mmol/L 10/26/2023 5:49 AM EST LAB[facility] Chloride 102 98 - 107 mmol/L 10/26/2023 5:49 AM EST [facility] CO2 17(L) 22 - 32 mmol/L 10/26/2023 5:49 AM EST LAB[facility] Anion Gap 16(H) 7 - 15 mmol/L 10/26/2023 5:49 AM EST LAB[facility] Glucose 111 70 - 120 mg/dL 10/26/2023 5:49 AM EST LAB[facility] Calcium 9.7 8.4 - 10.2 mg/dL 10/26/2023 5:49 AM EST LAB[facility] Blood Venous blood specimen / Unknown Venipuncture / Unknown 10/26/2023 4:37 AM EST 10/26/2023 5:19 AM EST Susan Milian PA-C LAB BLOOD ORDERABLES Performing Organization Address City/State/[facility] Co de Phone Number [facility] [address] [place] [address] * (ABNORMAL) PHOSPHORUS (10/26/2023 4:37 AM EST) Phosphorus 5.7(H) 2.5 - 4.8 mg/dL 10/26/2023 5:49 AM EST LAB[facility]ATORY [facility] Blood Venous blood specimen / Unknown Venipuncture / Unknown 10/26/2023 4:37 AM EST 10/26/2023 5:19 AM EST Susan Milian PA-C LAB BLOOD ORDERABLES LAB[facility]ORY [facility] [address] [place] [address] * (ABNORMAL) MAGNESIUM (10/26/2023 4:37 AM EST) Magnesium 3.2(H) 1.5 - 2.6 mg/dL 10/26/2023 5:49 AM EST LAB[facility]ORY [facility] Blood Venous blood specimen / Unknown Venipuncture / Unknown 10/26/2023 4:37 AM EST 10/26/2023 5:19 AM EST Susan Ignacioshaquille BRYANTPaulaAj LAB BLOOD ORDERABLES Performing Organization Address [facility] Co de Phone Number LAB[facility]ORY [facility] [address] [place] [address] * (ABNORMAL) CBC (10/26/2023 4:37 AM EST) WBC 4.91 4.00 - 10.80 K/uL 10/26/2023 5:40 AM EST LAB[facility]ORY [facility] RBC 5.36 3.85 - 5.15 M/uL 10/26/2023 5:40 AM EST LAB[facility] HGB 15.9(H) 12.0 - 15.3 g/dL 10/26/2023 5:40 AM EST LAB[facility] HCT 49.2(H) 36.0 - 45.2 % 10/26/2023 5:40 AM EST LAB[facility] MCV 91.8 81.5 - 97.5 fL 10/26/2023 5:40 AM EST [facility] MCH 29.7 27.0 - 34.0 pg 10/26/2023 5:40 AM EST [facility] MCHC 32.3 32.0 - 36.0 g/dL 10/26/2023 5:40 AM EST LAB[facility] RDW 14.5 11.5 - 15.5 % 10/26/2023 5:40 AM EST LAB[facility] PLT 254 140 - 400 K/uL 10/26/2023 5:40 AM EST LAB[facility] MPV 10.4 6.6 - 11.1 fL 10/26/2023 5:40 AM EST LAB[facility] nRBCs 0 <=0 /100 WBCs 10/26/2023 5:40 AM EST LAB[facility] Blood Venous blood specimen / Unknown Venipuncture / Unknown 10/26/2023 4:37 AM EST 10/26/2023 5:19 AM EST Susan Milian PA-C LAB BLOOD ORDERABLES Performing Organization Address City/[facility] Co de Phone Number LAB[facility]ORY [facility] [address] [place] [address] * (ABNORMAL) BASIC METABOLIC PANEL (10/25/2023 3:48 PM EST) BUN 48(H) 6 - 20 mg/dL 10/25/2023 4:12 PM EST LAB[facility]ATORY [facility] Creatinine 1.7(H) 0.5 - 1.0 mg/dL 10/25/2023 4:12 PM EST LAB[facility] Estimated Glomerular Filtration Rate 33(L) >=60 mL/min 10/25/2023 4:12 PM EST LAB[facility]ATORY [facility] Comment:eGFR is calculated b ased on the CKD-EPI 2020 equation Sodium 134(L) 135 - 146 mmol/L 10/25/2023 4:12 PM EST LAB[facility] Potassium 3.7 3.5 - 5.1 mmol/L 10/25/2023 4:12 PM EST LAB[facility] Chloride 100 98 - 107 mmol/L 10/25/2023 4:12 PM EST [facility] CO2 17(L) 22 - 32 mmol/L 10/25/2023 4:12 PM EST LAB[facility] Anion Gap 17(H) 7 - 15 mmol/L 10/25/2023 4:12 PM EST LAB[facility] Glucose 116 70 - 120 mg/dL 10/25/2023 4:12 PM EST LAB[facility] Calcium 9.4 8.4 - 10.2 mg/dL 10/25/2023 4:12 PM EST LAB[facility] Blood Venous blood specimen / Unknown Venipuncture / Unknown 10/25/2023 3:48 PM EST 10/25/2023 3:51 PM EST Susan BRYANT-C LAB BLOOD ORDERABLES [facility] [address] [place] [address] * XR ABDOMEN 1 VIEW (10/25/2023 3:23 PM EST) Anatomical Region Laterality Modality Abdomen, Pelvis Digital Radiogra phy 10/25/2023 3:35 PM EST Impressions 10/25/2023 3:32 PM EST IMPRESSION As above. Narrative 10/25/2023 3:32 PM EST EXAM XR ABDOMEN 1 VIEW-10/25/2023 3:23 pm HISTORY Dynamic monitoring of ileus COMPARISON Abdomen 10/24/2023. TECHNIQUE 2 AP supine views FINDINGS Severe gaseous distension of cecum increased from prior exam and measuring 13.6 cm diameter. Mild and less gaseous distension of transverse colon. Bowel sutures left abdomen. No evidence of small bowel dilatation. Procedure Note Stanley Puente MD - 10/25/2023 EXAM XR ABDOMEN 1 VIEW-10/25/2023 3:23 pm HISTORY Dynamic monitoring of ileus COMPARISON Abdomen 10/24/2023. TECHNIQUE 2 AP supine views FINDINGS Severe gaseous distension of cecum increased from prior exam and .6 cm diameter. Mild and less gaseous distension of transverse colon.Bowel sutures left abdomen. No evidence of small bowel dilatation. IMPRESSION IMPRESSION As above. Owen Fontanez MD RADIOLOGY (RAD GENER AL) * XR CHEST 1 VIEW (10/25/2023 3:23 PM EST) Anatomical Region Laterality Modality Chest Digital Radiogra phy 10/25/2023 3:37 PM EST Impressions 10/25/2023 3:34 PM EST IMPRESSION Mild atelectasis or scarring left lung base. Narrative 10/25/2023 3:34 PM EST EXAM XR CHEST 1 VIEW-10/25/2023 3:23 pm HISTORY New O2 requirement COMPARISON Chest 10/20/2023. TECHNIQUE 1 view consisting of a AP erect projection FINDINGS Thin linear density left lung base likely atelectasis or scarring. Left upper lung and right lung clear. Pleural spaces clear. The lungs and pleural spaces are clear. The pulmonary vasculature is not engorged. Cardiac silhouette mildly enlarged and unchanged. Procedure Note Stanley Puente MD - 10/25/2023 EXAM XR CHEST 1 VIEW-10/25/2023 3:23 pm HISTORY New O2 requirement COMPARISON Chest 10/20/2023. TECHNIQUE 1 view consisting of a AP erect projection FINDINGS Thin linear density left lung base likely atelectasis or scarring. Leftupper lung and right lung clear. Pleural spaces clear. The lungs andpleural spaces are clear. The pulmonary vasculature is not engorged.Cardiac silhouette mildly enlarged and unchanged. IMPRESSION IMPRESSION Mild atelectasis or scarring left lung base. Owen Fontanez MD RADIOLOGY (RAD GENER AL) * (ABNORMAL) MICROSCOPIC EXAM, URINE (10/25/2023 11:41 AM EST) RBC, Urine 0-2 0 - 2 /HPF 10/25/2023 12:12 PM EST LAB[facility]AT[facility] WBC, Urine 3-5(A) 0 - 2 /HPF 10/25/2023 12:12 PM EST LAB[facility] Bacteria, Urine 101-150(A) 0 - 25 /HPF 10/25/2023 12:12 PM EST LAB[facility] Squamous Epithelial Cells, Urine Many(A) None /HPF 10/25/2023 12:12 PM EST LAB[facility] Hyaline, Cast, Urine 5-9(A) None /LPF 10/25/2023 12:12 PM EST [facility] Granular Cast, Urine 10-19(A) None /LPF 10/25/2023 12:12 PM EST LAB[facility] Urine Urine specimen / Unknown Non-blood Collection / Unknown 10/25/2023 11:41 AM EST 10/25/2023 11:47 AM EST Giovanny Merchant MD LAB URINE ORDERABLES LAB[facility]ATORY [facility] [address] [place] [address] * (ABNORMAL) APTT (10/25/2023 5:02 AM EST) aPTT 93(H) 21 - 38 seconds 10/25/2023 5:39 AM EST LAB[facility] Blood Venous blood specimen / Unknown Venipuncture / Unknown 10/25/2023 5:02 AM EST 10/25/2023 5:09 AM EST Narrative LAB[facility]ATORY [facility] - 10/25/2023 5:39 AM EST Anticoagulation may affect testing. Refer to [employer] for a list of effects. Susan NIETOC LAB BLOOD ORDERABLES Performing Organization Address City/[facility]/ZIP Co de Phone Number [facility] [address] [place] [address] * (ABNORMAL) PHOSPHORUS (10/25/2023 5:02 AM EST) Phosphorus 5.1(H) 2.5 - 4.8 mg/dL 10/25/2023 5:40 AM EST LABORATORY C Blood Venous blood specimen / Unknown Venipuncture / Unknown 10/25/2023 5:02 AM EST 10/25/2023 5:09 AM EST Susan BRYANT-C LAB BLOOD ORDERABLES Performing Organization Address [facility] Co de Phone Number [facility] [address] [place] [address] * (ABNORMAL) MAGNESIUM (10/25/2023 5:02 AM EST) Magnesium 3.1(H) 1.5 - 2.6 mg/dL 10/25/2023 5:40 AM EST [facility] Blood Venous blood specimen / Unknown Venipuncture / Unknown 10/25/2023 5:02 AM EST 10/25/2023 5:09 AM EST Susan BRYANT-C LAB BLOOD ORDERABLES Performing Organization Address City/[facility] Co de Phone Number [facility] [address] [place] [address] * (ABNORMAL) BASIC METABOLIC PANEL (10/25/2023 5:02 AM EST) BUN 43(H) 6 - 20 mg/dL 10/25/2023 5:40 AM EST [facility] Creatinine 1.4(H) 0.5 - 1.0 mg/dL 10/25/2023 5:40 AM EST LAB[facility] Estimated Glomerular Filtration Rate 41(L) >=60 mL/min 10/25/2023 5:40 AM EST LAB[facility] Comment:eGFR is calculated b ased on the CKD-EPI 2020 equation Sodium 135 135 - 146 mmol/L 10/25/2023 5:40 AM EST [facility] Potassium 3.3(L) 3.5 - 5.1 mmol/L 10/25/2023 5:40 AM EST [facility] Chloride 99 98 - 107 mmol/L 10/25/2023 5:40 AM EST [facility] CO2 19(L) 22 - 32 mmol/L 10/25/2023 5:40 AM EST [facility] Anion Gap 17(H) 7 - 15 mmol/L 10/25/2023 5:40 AM EST [facility] Glucose 111 70 - 120 mg/dL 10/25/2023 5:40 AM EST [facility] Calcium 10.0 8.4 - 10.2 mg/dL 10/25/2023 5:40 AM EST [facility] Blood Venous blood specimen / Unknown Venipuncture / Unknown 10/25/2023 5:02 AM EST 10/25/2023 5:09 AM EST Kim Leonardo MD LAB BLOOD ORDERABLES Performing Organization Address City/State/[facility] Co de Phone Number [facility] [address] [place] [address] * PT INR (10/25/2023 5:02 AM EST) Prothrombin Time 14.0 11.6 - 15.2 seconds 10/25/2023 5:35 AM EST [facility] INR 1.1 0.8 - 1.2 10/25/2023 5:35 AM EST [facility] Blood Venous blood specimen / Unknown Venipuncture / Unknown 10/25/2023 5:02 AM EST 10/25/2023 5:09 AM EST Narrative LAB[facility]ORY [facility] - 10/25/2023 5:35 AM EST Warfarin Therapy INR: 2.0-3.0 conventional anticoagulation INR: 2.5-3.5 high intensity anticoagulation Susan Milian PA-C LAB BLOOD ORDERABLES LABORATORY [facility] [address], [place] [id number] * (ABNORMAL) CBC (10/25/2023 5:02 AM EST) [facility] WBC 4.87 4.00 - 10.80 K/uL 10/25/2023 5:22 AM EST LAB[facility] RBC 5.37 3.85 - 5.15 M/uL 10/25/2023 5:22 AM EST LAB[facility] HGB 15.7(H) 12.0 - 15.3 g/dL 10/25/2023 5:22 AM EST [facility] HCT 49.9(H) 36.0 - 45.2 % 10/25/2023 5:22 AM EST [facility] MCV 92.9 81.5 - 97.5 fL 10/25/2023 5:22 AM EST [facility] MCH 29.2 27.0 - 34.0 pg 10/25/2023 5:22 AM EST [facility] MCHC 31.5 32.0 - 36.0 g/dL 10/25/2023 5:22 AM EST [facility] RDW 14.2 11.5 - 15.5 % 10/25/2023 5:22 AM EST [facility] PLT 230 140 - 400 K/uL 10/25/2023 5:22 AM EST [facility] MPV 9.9 6.6 - 11.1 fL 10/25/2023 5:22 AM EST [facility] nRBCs 0 <=0 /100 WBCs 10/25/2023 5:22 AM EST [facility] Blood Venous blood specimen / Unknown Venipuncture / Unknown 10/25/2023 5:02 AM EST 10/25/2023 5:09 AM EST Susan BRYANT-C LAB BLOOD ORDERABLES LAB[facility] [address] [place] [address] * (ABNORMAL) GLUCOSE METER, POINT OF CARE (10/25/2023 3:53 AM EST) Glucose Meter 128(H) 70 - 120 mg/dL 10/25/2023 3:58 AM EST [facility] E Ink Blood Whole blood specimen / Unknown 10/25/2023 3:53 AM EST 10/25/2023 3:58 AM EST Dusty Sanchez MD LAB POINT OF CARE TEST DOCKED DEVICE UNSOLICITED RESULTS [facility] [address] [place] [address] * XR ABDOMEN 1 VIEW (10/24/2023 11:00 AM EST) Anatomical Region Laterality Modality Abdomen, Pelvis Digital Radiogra phy 10/24/2023 11:5 1 AM EST Impressions 10/24/2023 11:48 AM EST IMPRESSION Persistent ileus. Narrative 10/24/2023 11:48 AM EST EXAM XR ABDOMEN 1 VIEW - 10/24/2023 11:00 am HISTORY assess for resolution of ileus COMPARISON Radiographs 10/23/2023. TECHNIQUE AP views of the abdomen and pelvis. FINDINGS Similar diffuse gaseous dilation of small bowel loops concerning for ileus. Degenerative osseous changes. Atherosclerotic vascular calcification. Procedure Note Yao Lund MD - 10/24/2023 EXAM XR ABDOMEN 1 VIEW - 10/24/2023 11:00 am HISTORY assess for resolution of ileus COMPARISON Radiographs 10/23/2023. TECHNIQUE AP views of the abdomen and pelvis. FINDINGS Similar diffuse gaseous dilation of small bowel loops concerning forileus. Degenerative osseous changes. Atherosclerotic vascularcalcification. IMPRESSION IMPRESSION Persistent ileus. Giovanny Merchant MD RADIOLOGY (RAD GENER AL) * US RENAL (10/24/2023 8:40 AM EST) Anatomical Region Laterality Modality Abdomen, Body Ultrasound 10/24/2023 9:35 AM EST Impressions 10/24/2023 9:33 AM EST IMPRESSION No hydronephrosis. Narrative 10/24/2023 9:33 AM EST EXAM US RENAL-10/24/2023 8:40 am HISTORY OLGA, r/o hydronephrosis TECHNIQUE Real time sonographic imaging. COMPARISON CT 10/21/2023. FINDINGS RIGHT KIDNEY: 10.7 cm x 5.5 cm x 5.3 cm. Normal size and echogenicity. No hydronephrosis, shadowing calculi, or mass. LEFT KIDNEY: 10.9 cm x 5.2 cm x 4.3 cm. Normal size and echogenicity. No hydronephrosis, shadowing calculi, or mass. BLADDER: Collapsed. AORTA: Obscured by bowel gas Procedure Note Yao Lund MD - 10/24/2023 EXAM US RENAL-10/24/2023 8:40 am HISTORY OLGA, r/o hydronephrosis TECHNIQUE Real time sonographic imaging. COMPARISON CT 10/21/2023. FINDINGS RIGHT KIDNEY: 10.7 cm x 5.5 cm x 5.3 cm. Normal size and echogenicity.No hydronephrosis, shadowing calculi, or mass. LEFT KIDNEY: 10.9 cm x 5.2 cm x 4.3 cm. Normal size and echogenicity. Nohydronephrosis, shadowing calculi, or mass. BLADDER: Collapsed. AORTA: Obscured by bowel gas IMPRESSION IMPRESSION No hydronephrosis. Giovanny Merchant MD RAD ULTRASOUND * (ABNORMAL) APTT (10/24/2023 5:44 AM EST) aPTT 81(H) 21 - 38 seconds 10/24/2023 6:04 AM EST [facility] Blood Venous blood specimen / Unknown Venipuncture / Unknown 10/24/2023 5:44 AM EST 10/24/2023 5:48 AM EST Narrative LAB[facility] - 10/24/2023 6:04 AM EST Anticoagulation may affect testing. Refer to [employer] for a list of effects. Susan Maicol PA-C LAB BLOOD ORDERABLES Performing Organization Address [facility] Co de Phone Number [facility] [address] [place] [address] * (ABNORMAL) PHOSPHORUS (10/24/2023 5:44 AM EST) Phosphorus 5.8(H) 2.5 - 4.8 mg/dL 10/24/2023 6:13 AM EST [facility] Blood Venous blood specimen / Unknown Venipuncture / Unknown 10/24/2023 5:44 AM EST 10/24/2023 5:49 AM EST Susan NIETOC LAB BLOOD ORDERABLES Performing Organization Address [facility] Co de Phone Number [facility] [address] [place] [address] * (ABNORMAL) MAGNESIUM (10/24/2023 5:44 AM EST) Magnesium 2.8(H) 1.5 - 2.6 mg/dL 10/24/2023 6:13 AM EST LABORATORY C Blood Venous blood specimen / Unknown Venipuncture / Unknown 10/24/2023 5:44 AM EST 10/24/2023 5:49 AM EST Susan NIETOC LAB BLOOD ORDERABLES Performing Organization Address [facility] de Phone Number [facility] [address] [place] [address] * (ABNORMAL) BASIC METABOLIC PANEL (10/24/2023 5:44 AM EST) BUN 36(H) 6 - 20 mg/dL 10/24/2023 6:13 AM EST [facility] Creatinine 1.5(H) 0.5 - 1.0 mg/dL 10/24/2023 6:13 AM EST [facility] Estimated Glomerular Filtration Rate 39(L) >=60 mL/min 10/24/2023 6:13 AM EST [facility] Comment:eGFR is calculated b ased on the CKD-EPI 2020 equation Sodium 135 135 - 146 mmol/L 10/24/2023 6:13 AM EST [facility] Potassium 3.0(L) 3.5 - 5.1 mmol/L 10/24/2023 6:13 AM EST [facility] Chloride 97(L) 98 - 107 mmol/L 10/24/2023 6:13 AM EST [facility] CO2 20(L) 22 - 32 mmol/L 10/24/2023 6:13 AM EST [facility] Anion Gap 18(H) 7 - 15 mmol/L 10/24/2023 6:13 AM EST [facility] Glucose 107 70 - 120 mg/dL 10/24/2023 6:13 AM EST [facility] Calcium 9.6 8.4 - 10.2 mg/dL 10/24/2023 6:13 AM EST [facility] Blood Venous blood specimen / Unknown Venipuncture / Unknown 10/24/2023 5:44 AM EST 10/24/2023 5:49 AM EST Kim Leonardo MD LAB BLOOD ORDERABLES Performing Organization Address City/[facility]/ZIP Co de Phone Number LAB[facility] [address] [place] [address] * PT INR (10/24/2023 5:44 AM EST) [facility] Prothrombin Time 14.3 11.6 - 15.2 seconds 10/24/2023 6:02 AM EST [facility] INR 1.1 0.8 - 1.2 10/24/2023 6:02 AM EST [facility] Blood Venous blood specimen / Unknown Venipuncture / Unknown 10/24/2023 5:44 AM EST 10/24/2023 5:48 AM EST Narrative [facility] - 10/24/2023 6:02 AM EST Warfarin Therapy INR: 2.0-3.0 conventional anticoagulation INR: 2.5-3.5 high intensity anticoagulation Susan Milian PA-C LAB BLOOD ORDERABLES Performing Organization Address City/[facility]/ZIP In de Phone Number [facility] [address] [place] [address] * (ABNORMAL) CBC (10/24/2023 5:44 AM EST) WBC 7.45 4.00 - 10.80 K/uL 10/24/2023 5:55 AM EST [facility] RBC 5.13 3.85 - 5.15 M/uL 10/24/2023 5:55 AM EST [facility] HGB 15.1 12.0 - 15.3 g/dL 10/24/2023 5:55 AM EST [facility] HCT 47.3(H) 36.0 - 45.2 % 10/24/2023 5:55 AM EST [facility] MCV 92.2 81.5 - 97.5 fL 10/24/2023 5:55 AM EST [facility] MCH 29.4 27.0 - 34.0 pg 10/24/2023 5:55 AM EST [facility] MCHC 31.9 32.0 - 36.0 g/dL 10/24/2023 5:55 AM EST [facility] RDW 14.1 11.5 - 15.5 % 10/24/2023 5:55 AM EST [facility] PLT 228 140 - 400 K/uL 10/24/2023 5:55 AM EST [facility] MPV 9.9 6.6 - 11.1 fL 10/24/2023 5:55 AM EST [facility] nRBCs 0 <=0 /100 WBCs 10/24/2023 5:55 AM EST [facility] Blood Venous blood specimen / Unknown Venipuncture / Unknown 10/24/2023 5:44 AM EST 10/24/2023 5:48 AM EST Susan Milian PA-C LAB BLOOD ORDERABLES LABORATORY [facility] [address] [place] [address] * NM HEPATOBILIARY SYSTEM (10/23/2023 1:33 PM EST) Anatomical Region Laterality Modality Abdomen Nuclear Medicine 10/23/2023 1:38 PM EST Impressions 10/23/2023 1:56 PM EST IMPRESSION Patent cystic and common bile ducts; no scintigraphic evidence of acute cholecystitis. I have personally reviewed this examination and agree with the resident/fellow physician's interpretation. Narrative 10/23/2023 1:56 PM EST EXAM NM HEPATOBILIARY SYSTEM - 10/23/2023 1:33 pm HISTORY RUQ pain COMPARISON CT abdomen/pelvis dated 10/21/2023 TECHNIQUE Following the intravenous administration of 6.0 mCi of Tc-99m mebrofenin (Choletec), dynamic imaging of the right upper quadrant was performed in the anterior projection. FINDINGS Prompt uptake of radiotracer seen throughout the hepatic parenchyma. The central biliary ducts and the common bile duct are visualized. The gallbladder begins to fill at 6 minutes, and small bowel activity is seen at 56 minutes. Procedure Note Nile Smith MD - 10/23/2023 EXAM NM HEPATOBILIARY SYSTEM - 10/23/2023 1:33 pm HISTORY RUQ pain COMPARISON CT abdomen/pelvis dated 10/21/2023 TECHNIQUE Following the intravenous administration of 6.0 mCi of Tc-99m mebrofenin(Choletec), dynamic imaging of the right upper quadrant was performed inthe anterior projection. FINDINGS Prompt uptake of radiotracer seen throughout the hepatic parenchyma. Thecentral biliary ducts and the common bile duct are visualized. Thegallbladder begins to fill at 6 minutes, and small bowel activity is seenat 56 minutes. IMPRESSION IMPRESSION Patent cystic and common bile ducts; no scintigraphic evidence of acutecholecystitis. I have personally reviewed this examination and agree with the resident/fellow physician's interpretation. Owen Fontanez MD RAD NUCLEAR MED * XR ABDOMEN 1 VIEW (10/23/2023 7:41 AM EST) Anatomical Region Laterality Modality Abdomen, Pelvis Computed Radiogr aphy 10/23/2023 8:57 AM EST Impressions 10/23/2023 8:55 AM EST IMPRESSION Diffuse ileus bowel gas pattern unchanged. Narrative 10/23/2023 8:55 AM EST EXAM XR ABDOMEN 1 VIEW - 10/23/2023 7:41 am HISTORY R/O Obstruction COMPARISON: Abdominal radiographs from yesterday TECHNIQUE Three radiographs of the abdomen and pelvis are submitted. FINDINGS Catheters/tubes/devices/foreign bodies: None. The lung bases are clear. Numerous loops of air distended bowel extend to the rectum. The osseous structures are unremarkable. Procedure Note Bhupendra Guthrie, DO - 10/23/2023 EXAM XR ABDOMEN 1 VIEW - 10/23/2023 7:41 am HISTORY R/O Obstruction COMPARISON: Abdominal radiographs from yesterday TECHNIQUE Three radiographs of the abdomen and pelvis are submitted. FINDINGS Catheters/tubes/devices/foreign bodies: None. The lung bases are clear. Numerous loops of air distended bowel extend to the rectum. The osseous structures are unremarkable. IMPRESSION IMPRESSION Diffuse ileus bowel gas pattern unchanged. Yuliet Guzman MD RADIOLOGY (RAD GENER AL) * (ABNORMAL) APTT (10/23/2023 6:47 AM EST) Pathologist [facility] aPTT 73(H) 21 - 38 seconds 10/23/2023 7:31 AM EST [facility] [place] Venous blood specimen / Unknown Venipuncture / Unknown 10/23/2023 6:47 AM EST 10/23/2023 6:52 AM EST Narrative [facility] - 10/23/2023 7:31 AM EST Anticoagulation may affect testing. Refer to [facility] Test Catalog for a list of effects. Susan BRYANT-C LAB BLOOD ORDERABLES Performing Organization Address City/[facility] Co de Phone Number [facility] [address] [place] [address] * PHOSPHORUS (10/23/2023 6:47 AM EST) Pathologist [facility] Phosphorus 4.3 2.5 - 4.8 mg/dL 10/23/2023 7:38 AM EST [facility] Blood Venous blood specimen / Unknown Venipuncture / Unknown 10/23/2023 6:47 AM EST 10/23/2023 6:52 AM EST Susan BRYANT-C LAB BLOOD ORDERABLES Performing Organization Address City/[facility]/ZIP Co de Phone Number [facility] [address] [place] [address] * MAGNESIUM (10/23/2023 6:47 AM EST) Magnesium 2.5 1.5 - 2.6 mg/dL 10/23/2023 7:38 AM EST [facility] Blood Venous blood specimen / Unknown Venipuncture / Unknown 10/23/2023 6:47 AM EST 10/23/2023 6:52 AM EST Susan Milian PA-C LAB BLOOD ORDERABLES Performing Organization Address City/State/[facility] Co de Phone Number [facility] [address] [place] [address] * (ABNORMAL) BASIC METABOLIC PANEL (10/23/2023 6:47 AM EST) BUN 27(H) 6 - 20 mg/dL 10/23/2023 7:38 AM EST [facility] Creatinine 1.2(H) 0.5 - 1.0 mg/dL 10/23/2023 7:38 AM EST [facility] Estimated Glomerular Filtration Rate 49(L) >=60 mL/min 10/23/2023 7:38 AM EST [facility] Comment:eGFR is calculated b ased on the CKD-EPI 2020 equation Sodium 136 135 - 146 mmol/L 10/23/2023 7:38 AM EST [facility] Potassium 3.6 3.5 - 5.1 mmol/L 10/23/2023 7:38 AM EST [facility] Chloride 98 98 - 107 mmol/L 10/23/2023 7:38 AM EST [facility] CO2 26 22 - 32 mmol/L 10/23/2023 7:38 AM EST [facility] Anion Gap 12 7 - 15 mmol/L 10/23/2023 7:38 AM EST [facility] Glucose 115 70 - 120 mg/dL 10/23/2023 7:38 AM EST [facility] Calcium 9.1 8.4 - 10.2 mg/dL 10/23/2023 7:38 AM EST [facility] Blood Venous blood specimen / Unknown Venipuncture / Unknown 10/23/2023 6:47 AM EST 10/23/2023 6:52 AM EST Kim Leonardo MD LAB BLOOD ORDERABLES Performing Organization Address [facility] Co de Phone Number LAB[facility]ATORY [facility] [address] [place] [address] * PT INR (10/23/2023 6:47 AM EST) Prothrombin Time 14.8 11.6 - 15.2 seconds 10/23/2023 7:29 AM EST [facility] INR 1.1 0.8 - 1.2 10/23/2023 7:29 AM EST [facility] Blood Venous blood specimen / Unknown Venipuncture / Unknown 10/23/2023 6:47 AM EST 10/23/2023 6:52 AM EST Narrative [facility] - 10/23/2023 7:29 AM EST Warfarin Therapy INR: 2.0-3.0 conventional anticoagulation INR: 2.5-3.5 high intensity anticoagulation Susan Milian PA-C LAB BLOOD ORDERABLES Performing Organization Address [facility] Co de Phone Number [facility] [address] [place] [address] * CBC (10/23/2023 6:47 AM EST) WBC 7.30 4.00 - 10.80 K/uL 10/23/2023 7:26 AM EST [facility] RBC 4.90 3.85 - 5.15 M/uL 10/23/2023 7:26 AM EST [facility] HGB 14.9 12.0 - 15.3 g/dL 10/23/2023 7:26 AM EST [facility] HCT 45.1 36.0 - 45.2 % 10/23/2023 7:26 AM EST [facility] MCV 92.0 81.5 - 97.5 fL 10/23/2023 7:26 AM EST [facility] MCH 30.4 27.0 - 34.0 pg 10/23/2023 7:26 AM EST [facility] MCHC 33.0 32.0 - 36.0 g/dL 10/23/2023 7:26 AM EST [facility] RDW 14.6 11.5 - 15.5 % 10/23/2023 7:26 AM EST [facility] PLT 228 140 - 400 K/uL 10/23/2023 7:26 AM EST LABORATORY C MPV 9.9 6.6 - 11.1 fL 10/23/2023 7:26 AM EST [facility] nRBCs 0 <=0 /100 WBCs 10/23/2023 7:26 AM EST [facility] Blood Venous blood specimen / Unknown Venipuncture / Unknown 10/23/2023 6:47 AM EST 10/23/2023 6:52 AM EST Susan Milian ANNETTE-C LAB BLOOD ORDERABLES [facility] [address] [place] [address] * (ABNORMAL) APTT (10/22/2023 11:20 PM EST) aPTT 73(H) 21 - 38 seconds 10/22/2023 11:47 PM EST [facility] Blood Venous blood specimen / Unknown Venipuncture / Unknown 10/22/2023 11:20 PM EST 10/22/2023 11:23 PM EST Narrative [facility] - 10/22/2023 11:47 PM EST Anticoagulation may affect testing. Refer to [facility] Test Catalog for a list of effects. Susan Maicol BRYANT-C LAB BLOOD ORDERABLES Performing Organization Address City/[facility]/ZIP Co de Phone Number [facility] [address] [place] [address] * LACTATE (10/22/2023 2:44 PM EST) Lactate 1.1 0.4 - 2.0 mmol/L 10/22/2023 3:31 PM EST [facility] Blood Venous blood specimen / Unknown Venipuncture / Unknown 10/22/2023 2:44 PM EST 10/22/2023 3:05 PM EST Owen Fontanez MD LAB BLOOD ORDERABLES [facility] [address] [place] [address] * VASC DUPLEX VENOUS LE BILAT (10/22/2023 2:27 PM EST) Anatomical Region Laterality Modality Lower Extremity, Vascular Ultras ound Impressions 10/22/2023 2:52 PM EST : Right lower extremity with no evidence of acute deep venous thrombosis. Left lower extremity with no evidence of acute deep venous thrombosis. Narrative 10/22/2023 2:52 PM EST VASCULAR LAB RESULTS DATE OF EXAM: 10/22/23 PRESENTING CONDITIONS: Shortness of breath Immediately before proceeding with the vascular lab procedure reported below, the identity of the patient, the correct exam and the correct procedural site were verified. PHYSICIAN REPORT: Lower Extremity Venous Duplex Examination Color flow Doppler, spectral analysis, and transducer compression techniques were applied during this ultrasound image examination. RIGHT LOWER EXTREMITY On duplex examination, the right common femoral vein, the sapheno-femoral junction, the femoral vein in the thigh and popliteal vein are all free of internal echoes and demonstrate normal transducer compressibility during wyman scale imaging and normal respiratory and augmentation response during Doppler interrogation. The posterior tibial veins and peroneal veins demonstrate no evidence of thrombosis. LEFT LOWER EXTREMITY On duplex examination, the left common femoral vein, the sapheno-femoral junction, the femoral vein in the thigh, and popliteal vein are all free of internal echoes and demonstrate normal transducer compressibility during wyman scale imaging and normal respiratory and augmentation response during Doppler interrogation. The posterior tibial veins and peroneal veins demonstrate no evidence of thrombosis. Yuliet Guzman MD RAD VASCULAR * XR ABDOMEN 1 VIEW (10/22/2023 2:08 PM EST) Anatomical Region Laterality Modality Abdomen, Pelvis Computed Radiogr aphy 10/22/2023 2:29 PM EST Impressions 10/22/2023 2:26 PM EST IMPRESSION Diffuse gaseous dilation of the colon and rectum suggesting ileus. Narrative 10/22/2023 2:26 PM EST EXAM XR ABDOMEN 1 VIEW - 10/22/2023 2:08 pm HISTORY R/O Obstruction COMPARISON CT 10/21/2023. TECHNIQUE AP view of the abdomen and pelvis. FINDINGS Diffuse gaseous dilation of the colon and rectum with a few mildly distended small bowel loops favoring ileus. Degenerative osseous changes. No suspicious calcifications. Procedure Note Yao Lund MD - 10/22/2023 EXAM XR ABDOMEN 1 VIEW - 10/22/2023 2:08 pm HISTORY R/O Obstruction COMPARISON CT 10/21/2023. TECHNIQUE AP view of the abdomen and pelvis. FINDINGS Diffuse gaseous dilation of the colon and rectum with a few mildlydistended small bowel loops favoring ileus. Degenerative osseous changes.No suspicious calcifications. IMPRESSION IMPRESSION Diffuse gaseous dilation of the colon and rectum suggesting ileus. Yuliet Guzman MD RADIOLOGY (RAD GENER AL) * (ABNORMAL) APTT (10/22/2023 2:04 PM EST) aPTT 58(H) 21 - 38 seconds 10/22/2023 2:47 PM EST [facility] Blood Venous blood specimen / Unknown Venipuncture / Unknown 10/22/2023 2:04 PM EST 10/22/2023 2:11 PM EST Narrative [facility] - 10/22/2023 2:47 PM EST Anticoagulation may affect testing. Refer to [facility] Test Catalog for a list of effects. Susan Milian PA-C LAB BLOOD ORDERABLES Performing Organization Address City/[facility]/ZIP Co de Phone Number [facility] [address] [place] [address] * LIPASE (10/22/2023 5:30 AM EST) Lipase 23 13 - 60 U/L 10/22/2023 7:11 PM EST [facility] Blood Venous blood specimen / Unknown Venipuncture / Unknown 10/22/2023 5:30 AM EST 10/22/2023 5:58 AM EST Owen Fontanez MD LAB BLOOD ORDERABLES Performing Organization Address City/[facility]/ZIP Co de Phone Number [facility] [address] [place] [address] * APTT (10/22/2023 5:30 AM EST) aPTT 36 21 - 38 seconds 10/22/2023 6:29 AM EST [facility] Blood Venous blood specimen / Unknown Venipuncture / Unknown 10/22/2023 5:30 AM EST 10/22/2023 5:58 AM EST Narrative [facility] - 10/22/2023 6:29 AM EST Anticoagulation may affect testing. Refer to [facility] Catalog for a list of effects. Susan Milian PA-C LAB BLOOD ORDERABLES [facility] [address] [place] [address] * BASIC METABOLIC PANEL (10/22/2023 5:30 AM EST) BUN 19 6 - 20 mg/dL 10/22/2023 6:29 AM EST [facility] Creatinine 0.9 0.5 - 1.0 mg/dL 10/22/2023 6:29 AM EST [facility] Estimated Glomerular Filtration Rate 70 >=60 mL/min 10/22/2023 6:29 AM EST [facility] Comment:eGFR is calculated b ased on the CKD-EPI 2020 equation Sodium 137 135 - 146 mmol/L 10/22/2023 6:29 AM EST [facility] Potassium 3.6 3.5 - 5.1 mmol/L 10/22/2023 6:29 AM EST [facility] Chloride 99 98 - 107 mmol/L 10/22/2023 6:29 AM EST [facility] CO2 23 22 - 32 mmol/L 10/22/2023 6:29 AM EST [facility] Anion Gap 15 7 - 15 mmol/L 10/22/2023 6:29 AM EST [facility] Glucose 114 70 - 120 mg/dL 10/22/2023 6:29 AM EST [facility] Calcium 9.1 8.4 - 10.2 mg/dL 10/22/2023 6:29 AM EST [facility] Blood Venous blood specimen / Unknown Venipuncture / Unknown 10/22/2023 5:30 AM EST 10/22/2023 5:58 AM EST Kim Leonardo MD LAB BLOOD ORDERABLES [facility] [address] [place] [address] * (ABNORMAL) PT INR (10/22/2023 5:30 AM EST) Prothrombin Time 15.5(H) 11.6 - 15.2 seconds 10/22/2023 6:25 AM EST [facility] INR 1.2 0.8 - 1.2 10/22/2023 6:25 AM EST [facility] Blood Venous blood specimen / Unknown Venipuncture / Unknown 10/22/2023 5:30 AM EST 10/22/2023 5:58 AM EST Narrative [facility] - 10/22/2023 6:25 AM EST Warfarin Therapy INR: 2.0-3.0 conventional anticoagulation INR: 2.5-3.5 high intensity anticoagulation Susan Milian PA-C LAB BLOOD ORDERABLES Performing Organization Address City/[facility] Co de Phone Number [facility] [address] [place] [address] * CBC (10/22/2023 5:30 AM EST) WBC 9.67 4.00 - 10.80 K/uL 10/22/2023 6:08 AM EST [facility] RBC 4.75 3.85 - 5.15 M/uL 10/22/2023 6:08 AM EST [facility] HGB 14.1 12.0 - 15.3 g/dL 10/22/2023 6:08 AM EST [facility] HCT 44.2 36.0 - 45.2 % 10/22/2023 6:08 AM EST [facility] MCV 93.1 81.5 - 97.5 fL 10/22/2023 6:08 AM EST [facility] MCH 29.7 27.0 - 34.0 pg 10/22/2023 6:08 AM EST [facility] MCHC 31.9 32.0 - 36.0 g/dL 10/22/2023 6:08 AM EST [facility] RDW 13.9 11.5 - 15.5 % 10/22/2023 6:08 AM EST [facility] PLT 195 140 - 400 K/uL 10/22/2023 6:08 AM EST [facility] MPV 9.8 6.6 - 11.1 fL 10/22/2023 6:08 AM EST [facility] nRBCs 0 <=0 /100 WBCs 10/22/2023 6:08 AM EST [facility] Blood Venous blood specimen / Unknown Venipuncture / Unknown 10/22/2023 5:30 AM EST 10/22/2023 5:58 AM EST Suasn Milian PA-C LAB BLOOD ORDERABLES Performing Organization Address City/[facility]/ZIP Co de Phone Number [facility] [address] [place] [address] * MRSA SCREEN, PCR (10/22/2023 1:16 AM EST) [facility] MRSA PCR Result Negative Negative 3:41 AM EST [facility] Comment:No Methicillin resis tant Staphylococcus aureus detected by PCR (amplified probe). Upper Respiratory (Nares, Bilateral) Non-blood Collection / Unknown 10/22/2023 1:16 AM EST 10/22/2023 2:07 AM EST Kim Leonardo MD LAB MICRO - GENERAL ORDERABLES Performing Organization Address City/[facility]/ZIP Co de Phone Number [facility] [address] [place] [address] * EKG (10/22/2023 12:01 AM EST) 10/22/2023 12:0 1 AM EST Narrative Procedure Note Te Stein, - 10/22/2023 12:01 AM EST REASON FOR STUDY: chestpain CONCLUSIONS: Atrial fibrillation with rapid ventricular response Nonspecific ST and T wave abnormality When compared with ECG of 21-OCT-2023 21:09, (unconfirmed) No significant change was found Ventricular Rate: 136 Atrial Rate: 113 QRS Duration: 98 QT/QTc: 328/493 ms P-R-T [place]: 0 : 43 : 109 degrees Susan Milian PA-C EKG Performing Organization Address [facility] Co de Phone Number [facility] CARDIOLOGY * LACTATE (10/21/2023 11:40 PM EST) Lactate 1.8 0.4 - 2.0 mmol/L 10/22/2023 12:10 AM EST [facility] Blood Venous blood specimen / Unknown Venipuncture / Unknown 10/21/2023 11:40 PM EST 10/21/2023 11:45 PM EST Kim Leonardo MD LAB BLOOD ORDERABLES Performing Organization Address [facility] Co de Phone Number [facility] [address] [place] [address] * PHOSPHORUS (10/21/2023 11:40 PM EST) Phosphorus 3.6 2.5 - 4.8 mg/dL 10/22/2023 12:28 AM EST [facility] Blood Venous blood specimen / Unknown Venipuncture / Unknown 10/21/2023 11:40 PM EST 10/21/2023 11:45 PM EST Kim Leonardo MD LAB BLOOD ORDERABLES Performing Organization Address [facility] Phone Number [facility] [address] [place] [address] * MAGNESIUM (10/21/2023 11:40 PM EST) Magnesium 2.4 1.5 - 2.6 mg/dL 10/22/2023 12:28 AM EST [facility] Blood Venous blood specimen / Unknown Venipuncture / Unknown 10/21/2023 11:40 PM EST 10/21/2023 11:45 PM EST Kim Leonardo MD LAB BLOOD ORDERABLES [facility] [address] [place] [address] * (ABNORMAL) COMPREHENSIVE METABOLIC PANEL (10/21/2023 11:40 PM EST) BUN 18 6 - 20 mg/dL 10/22/2023 12:28 AM EST [facility] Creatinine 0.9 0.5 - 1.0 mg/dL 10/22/2023 12:28 AM EST [facility] Estimated Glomerular Filtration Rate 67 >=60 mL/min 10/22/2023 12:28 AM EST [facility] Comment:eGFR is calculated b ased on the CKD-EPI 2020 equation Sodium 134(L) 135 - 146 mmol/L 10/22/2023 12:28 AM EST [facility] Potassium 3.9 3.5 - 5.1 mmol/L 10/22/2023 12:28 AM EST [facility] Chloride 97(L) 98 - 107 mmol/L 10/22/2023 12:28 AM EST [facility] CO2 23 22 - 32 mmol/L 10/22/2023 12:28 AM EST [facility] Anion Gap 14 7 - 15 mmol/L 10/22/2023 12:28 AM EST [facility] Glucose 124(H) 70 - 120 mg/dL 10/22/2023 12:28 AM EST [facility] Albumin 4.2 3.8 - 5.0 g/dL 10/22/2023 12:28 AM EST [facility] AST 38(H) 10 - 35 U/L 10/22/2023 12:28 AM EST [facility] Comment:Result may be falsel y elevated due to hemolysis. Alkaline Phosphatase 92 35 - 130 U/L 10/22/2023 12:28 AM EST [facility] Bilirubin, Total 1.3(H) <=1.2 mg/dL 10/22/2023 12:28 AM EST [facility] Calcium 9.5 8.4 - 10.2 mg/dL 10/22/2023 12:28 AM EST [facility] Protein 7.6 6.0 - 8.3 g/dL 10/22/2023 12:28 AM EST [facility] ALT 23 10 - 35 U/L 10/22/2023 12:28 AM EST [facility] Blood Venous blood specimen / Unknown Venipuncture / Unknown 10/21/2023 11:40 PM EST 10/21/2023 11:45 PM EST Kim Leonardo MD LAB BLOOD ORDERABLES Performing Organization Address [facility] de Phone Number [facility] [address] [place] [address] * (ABNORMAL) HEPARIN, UNFRACTIONATED (10/21/2023 11:40 PM EST) Heparin, Unfractionated 0.81(H) <0.10 IU/mL 10/21/2023 11:59 PM EST [facility] Comment: Unfractionated therapeutic ranges for Anti Xa activity: For Cardiac/Neurologic treatment: 0.3 to 0.6 IU/mL. For treatment of DVT or Pulmonary Embolism: 0.3 to 0.7 IU/mL. Blood Venous blood specimen / Unknown Venipuncture / Unknown 10/21/2023 11:40 PM EST 10/21/2023 11:45 PM EST Kim Leonardo MD LAB BLOOD ORDERABLES Performing Organization Address [facility] Co de Phone Number [facility] [address] [place] [address] * (ABNORMAL) CBC (10/21/2023 11:40 PM EST) WBC 10.59 4.00 - 10.80 K/uL 10/21/2023 11:53 PM EST [facility] RBC 5.00 3.85 - 5.15 M/uL 10/21/2023 11:53 PM EST [facility] HGB 15.2 12.0 - 15.3 g/dL 10/21/2023 11:53 PM EST [facility] HCT 46.0(H) 36.0 - 45.2 % 10/21/2023 11:53 PM EST [facility] MCV 92.0 81.5 - 97.5 fL 10/21/2023 11:53 PM EST [facility] MCH 30.4 27.0 - 34.0 pg 10/21/2023 11:53 PM EST [facility] MCHC 33.0 32.0 - 36.0 g/dL 10/21/2023 11:53 PM EST [facility] RDW 13.8 11.5 - 15.5 % 10/21/2023 11:53 PM EST [facility] PLT 223 140 - 400 K/uL 10/21/2023 11:53 PM EST [facility] MPV 9.7 6.6 - 11.1 fL 10/21/2023 11:53 PM EST [facility] nRBCs 0 <=0 /100 WBCs 10/21/2023 11:53 PM EST [facility] Blood Venous blood specimen / Unknown Venipuncture / Unknown 10/21/2023 11:40 PM EST 10/21/2023 11:45 PM EST Kim Leonardo MD LAB BLOOD ORDERABLES [facility] [address] [place] [address] * APTT (10/21/2023 11:40 PM EST) aPTT 24 21 - 38 seconds 10/21/2023 11:59 PM EST [facility] Blood Venous blood specimen / Unknown Venipuncture / Unknown 10/21/2023 11:40 PM EST 10/21/2023 11:45 PM EST Narrative [facility] - 10/21/2023 11:59 PM EST Anticoagulation may affect testing. Refer to [facility] for a list of effects. Kim Leonardo MD LAB BLOOD ORDERABLES [facility] [address] [place] [address] * PT INR (10/21/2023 11:40 PM EST) Prothrombin Time 15.2 11.6 - 15.2 seconds 10/21/2023 11:59 PM EST [facility] INR 1.2 0.8 - 1.2 10/21/2023 11:59 PM EST [facility] Blood Venous blood specimen / Unknown Venipuncture / Unknown 10/21/2023 11:40 PM EST 10/21/2023 11:45 PM EST Narrative [facility] - 10/21/2023 11:59 PM EST Warfarin Therapy INR: 2.0-3.0 conventional anticoagulation INR: 2.5-3.5 high intensity anticoagulation Kim Leonardo MD LAB BLOOD ORDERABLES Performing Organization Address City/[facility]/ZIP Co de Phone Number [facility] [address] [place] [address] * CULTURE, URINE, QUANTITATIVE (10/21/2023 10:55 PM EST) Pathologist [facility] Culture Growth No significant growth 10/22/2023 5:47 PM EST [facility] Urine Urine specimen obtained by clean catch procedure / Unknown Non-blood Collection / Unknown 10/21/2023 10:55 PM EST 10/21/2023 11:00 PM EST Kim Leonardo MD LAB MICRO - GENERAL ORDERABLES Performing Organization Address City/[facility] Co de Phone Number LABORATORY [address] [address] * RESPIRATORY PATHOGEN PANEL, PCR (10/21/2023 10:55 PM EST) Adenovirus by PCR Negative Negative 023 12:06 AM EST [facility] Coronavirus 229E by PCR Negative Negative 10/22/2023 12:06 AM EST [facility] Coronavirus HKU1 by PCR Negative Negative 10/22/2023 12:06 AM EST [facility] Coronavirus NL63 by PCR Negative Negative 10/22/2023 12:06 AM EST [facility] Coronavirus OC43 by PCR Negative Negative 10/22/2023 12:06 AM EST [facility] Coronavirus SARS-CoV-2 by PCR Negative Negative 10/22/2023 12:06 AM EST [facility] Human Metapneumovirus by PCR Negative Negative 10/22/2023 12:06 AM EST [facility] Rhinovirus/Enterovi rosaura by PCR Negative Negative 10/22/2023 12:06 AM EST [facility] Influenza A Virus by PCR Negative Negative 10/22/2023 12:06 AM EST [facility] Influenza B Virus by PCR Negative Negative 10/22/2023 12:06 AM EST [facility] Parainfluenza Virus 1 by PCR Negative Negative 10/22/2023 12:06 AM EST [facility] Parainfluenza Virus 2 by PCR Negative Negative 10/22/2023 12:06 AM EST [facility] Parainfluenza Virus 3 by PCR Negative Negative 10/22/2023 12:06 AM EST [facility] Parainfluenza Virus 4 by PCR Negative Negative 10/22/2023 12:06 AM EST [facility] Respiratory Syncytial Virus by PCR Negative Negative 10/22/2023 12:06 AM EST [facility] Bordetella pertussis by PCR Negative Negative 10/22/2023 12:06 AM EST [facility] Chlamydia pneumoniae by PCR Negative Negative 10/22/2023 12:06 AM EST [facility] Mycoplasma pneumoniae by PCR Negative Negative 10/22/2023 12:06 AM EST [facility] Bordetella parapertussis by PCR Negative Negative 10/22/2023 12:06 AM EST [facility] Comment: The primers that detect Rhinovirus may cross react with some Enterorviruses. The validation of bronchial specimens, tracheal aspirates, and throats for this assay was developed and performance characteristics determined by [employer]. The validation of alternate specimen types has not been cleared or approved by the U.S. Food and Drug Administration (FDA). It has been determined that such clearance or approval is not necessary. Upper Respiratory Mid-turbinate nasal swab / Unknown Non-blood Collection / Unknown 10/21/2023 10:55 PM EST 10/21/2023 11:04 PM EST Kim Leonardo MD LAB MICRO - GENERAL ORDERABLES [facility] [place] [address] [place] [address] * (ABNORMAL) URINALYSIS, REFLEX TO CULTURE (10/21/2023 10:55 PM EST) Color, Urine Light Yellow Colorless, Light Yellow, Yellow, Dark Yellow 10/21/2023 11:25 PM EST [facility] Clarity, Urine Clear Clear 10/21/2023 11:25 PM EST [facility] Glucose, Urine Negative Negative mg/dL 10/21/2023 11:25 PM EST [facility] Bilirubin, Urine Negative Negative 10/21/20 11:25 PM EST [facility] Ketone, Urine Negative Negative mg/dL 10/21/2023 11:25 PM EST [facility] Specific [place], Urine 1.012 1.003 - 1.030 10/21/2023 11:25 PM EST [facility] Blood, Urine Negative Negative 10/21/2023 11:25 PM EST [facility] pH, Urine 6.5 5.0 - 7.5 Units 10/21/2023 11:25 PM EST [facility] Protein, Urine Trace(A) Negative mg/dL 10/21/2023 11:25 PM EST [facility] Urobilinogen, Urine Normal Normal mg/dL 10/21/2023 11:25 PM EST [facility] Nitrite, Urine Negative Negative 10/21/2023 11:25 PM EST [facility] Esterase, Urine Large(A) Negative 11:25 PM EST [facility] RBC, Urine 0-2 0 - 2 /HPF 10/21/2023 11:25 PM EST [facility] WBC, Urine 20-29(A) 0 - 2 /HPF 10/21/2023 11:25 PM EST [facility] Bacteria, Urine 0-25 0 - 25 /HPF 10/21/20 11:25 PM EST [facility] Renal Epithelial Cells, Urine 1-4(A) None /HPF 10/21/2023 11:25 PM EST [facility] Transitional Epithelial Cells, Urine 1-4(A) None /HPF 10/21/2023 11:25 PM EST [facility] Culture, Urine 10/21/2023 11:25 PM EST [facility] Comment:Quantitative urine c ulture to be performed Urine Urine specimen obtained by clean catch procedure / Unknown Non-blood Collection / Unknown 10/21/2023 10:55 PM EST 10/21/2023 11:00 PM EST Kim Leonardo MD LAB URINE ORDERABLES [facility] [address] [place] [address] * URINALYSIS, REFLEX TO CULTURE (CUP ONLY) (10/21/2023 10:55 PM EST) Urinalysis, Reflex to Culture Specimen Specimen collected and received 10/22/2023 1:01 AM EST [facility] [place]rine Urine specimen obtained by clean catch procedure / Unknown Non-blood Collection / Unknown 10/21/2023 10:55 PM EST 10/21/2023 11:00 PM EST Kim Leonardo MD LAB URINE ORDERABLES Performing Organization Address [facility] de Phone Number [facility] [address] [place] [address] * EKG (10/21/2023 9:09 PM EST) 10/21/2023 9:09 PM EST Narrative Procedure Note Te Stein, - 10/21/2023 9:09 PM EST REASON FOR STUDY: Chest pain CONCLUSIONS: Atrial fibrillation with rapid ventricular response with prematureventricular or aberrantly conducted complexes Nonspecific ST and T wave abnormality When compared with ECG of 21-OCT-2023 20:41, (unconfirmed) Atrial fibrillation has replaced Sinus rhythm Vent. rate has increased BY 54 BPM Ventricular Rate: 140 Atrial Rate: 300 QRS Duration: 98 QT/QTc: 334/509 ms P-R-T Mulino: 0 : 41 : 92 degrees Susan Milian PA-C EKG Performing Organization Address [facility] Co de Phone Number [facility] * EKG (10/21/2023 8:41 PM EST) 10/21/2023 8:41 PM EST Narrative Procedure Note Te Stein DO - 10/21/2023 8:41 PM EST REASON FOR STUDY: ROUTINE CONCLUSIONS: Sinus rhythm with Premature atrial complexes Nonspecific ST and T wave abnormality When compared with ECG of 20-OCT-2023 16:49, (unconfirmed) Premature ventricular complexes are no longer Present Vent. rate has decreased BY 67 BPM QRS duration has decreased Nonspecific T wave abnormality no longer evident in Inferior leads T wave inversion less evident in Anterior-lateral leads Ventricular Rate: 86 Atrial Rate: 86 CA Interval: 152 QRS Duration: 86 QT/QTc: 378/452 ms P-R-T Mulino: 20 : 19 : 97 degrees Susan Milian PA-C EKG [facility] documented in this encounter Visit Diagnoses Diagnosis Acute on chronic systolic heart failure (HCC)- Primary Acute on chronic systolic heart failure Heart failure (HCC) Heart failure, unspecified Chest pain Chest pain, unspecified Paroxysmal atrial fibrillation (HCC) Atrial fibrillation Atrial fibrillation with rapid ventricular response (HCC) Atrial fibrillation Body mass index (BMI) of 40.0 to 44.9 in adult (HCC) Gout of big toe Acute gouty arthropathy Fever of unknown origin Fever, unspecified Ileus, postoperative (HCC) Other digestive system complications Diarrhea Dilatation of colon Megacolon, other than Hirschsprung's Dilated cardiomyopathy (HCC) Other primary cardiomyopathies documented in this encounter Administered Medications Inactive Administered Medications - up to 3 most recent administrations Medication Order MAR Action Action Date Dose Rate Site Acetaminophen (Tylenol) tab 975 mg 975 mg, Oral, Q4H PRN Pain, Mild, Fever >38C(100.5F), Starting on Thu10/21/23 at 2040, Until Thu11/03/23 at 2049, Maximum of 4 grams (4000 mg) per day. Given 10/24/2023 3:15 AM EST 975 mg Given 10/23/2023 11:28 PM EST 975 mg Given 10/23/2023 6:39 PM EST 975 mg Apixaban (Eliquis) tab 5 mg 5 mg, Oral, BID (.AM/PM), First dose on Thu11/03/23 at 1100, Until Discontinued Given 11/03/2023 11:14 AM EST 5 mg Atenolol (Tenormin) tab 25 mg 25 mg, Oral, Daily(AM), First dose on Thu10/22/23 at 0900, Until Discontinued, Hold for HR less than 60 or SBP below 100 and notify service if dose is held Given 10/22/2023 8:00 AM EST 25 mg Atenolol (Tenormin) tab 25 mg 25 mg, Oral, ONCE, On Thu10/21/23 at 2200, For 1 dose, Hold for HR less than 60 or SBP below 100 and notify service if dose is held Given 10/21/2023 9:47 PM EST 25 mg atropine sulfate inj 1 mg 1 mg, IV Push, ONCE PRN Other, Please have at bedside for bradycardia. Do not administer without physician present., Starting on Thu10/25/23 at 1912, Until Thu11/03/23 at 2050, For 1 dose Azithromycin (Zithromax) tab 500 mg 500 mg, Oral, Daily(AM), First dose on Thu10/24/23 at 1200, Last dose on Thu10/26/23 at 0900, For 3 doses Given 10/26/2023 8:56 AM EST 500 mg Given 10/25/2023 8:18 AM EST 500 mg Given 10/24/2023 12:38 PM EST 500 mg Benzonatate (Tessalon Perles) cap 100 mg 100 mg, Oral, Q6H PRN Cough, Starting on Thu10/23/23 at 2107, Until Thu10/28/23 at 1552, This med should NOT be Crushed or Chewed Given 10/23/2023 11:11 PM EST 100 mg Bumetanide (Bumex) tab 1 mg 1 mg, Oral, Daily(AM), First dose on Thu11/03/23 at 1400, Until Discontinued Given 11/03/2023 3:36 PM EST 1 mg cefTRIAXone in dextrose (Rocephin) IVPB 1 g IV Piggyback, 1 g, Q24H, First dose on Thu10/24/23 at 1200, Until Discontinued, Administer over 30 Minutes New Bag 10/26/2023 1:32 PM EST 1 g 100 mL/hr New Bag 10/25/2023 12:42 PM EST 1 g 100 mL/hr New Bag 10/24/2023 12:38 PM EST 1 g 100 mL/hr Digoxin (Lanoxin) 0.25 MG/ML inj 100 mcg 100 mcg, IV Push, Daily(AM), First dose on Thu10/30/23 at 0900, Until Discontinued, NOTE CONC: 250 MCG/ML PROTECT FROM LIGHT Given 11/03/2023 7:55 AM EST 100 mcg Given 11/02/2023 9:05 AM EST 100 mcg Given 11/01/2023 9:36 AM EST 100 mcg Digoxin (Lanoxin) 0.25 MG/ML inj 112.5 mcg 112.5 mcg (rounded from 118.6 mcg = 2 mcg/kg 59.3 kg [place] weight), IV Push, Q6HNOW, First dose on Thu10/29/23 at 1515, Last dose on Thu10/29/23 at 2115, For 2 doses, PROTECT FROM LIGHT Given 10/29/2023 8:13 PM EST 112.5 mcg Given 10/29/2023 3:32 PM EST 112.5 mcg Digoxin (Lanoxin) 0.25 MG/ML inj 237.5 mcg 237.5 mcg (rounded from 237.2 mcg = 4 mcg/kg 59.3 kg [place] weight), IV Push, ONCE, On Thu10/29/23 at 0945, For 1 dose, PROTECT FROM LIGHT Given 10/29/2023 10:25 AM EST 237.5 mcg Digoxin (Lanoxin) tab 125 mcg 125 mcg, Oral, Daily(AM), First dose on Thu11/04/23 at 0900, Until Discontinued, Hold For HR Less than 60 and notify service if dose is held Furosemide (Lasix) inj 60 mg 60 mg, IV Push, BID (0900, 1600), First dose on Thu10/21/23 at 2245, Until Discontinued Given 10/22/2023 8:00 AM EST 60 mg Given 10/21/2023 10:14 PM EST 60 mg Glycopyrrolate (Robinul) inj 0.2 mg 0.2 mg, Intravenous, ONCE PRN Other, Please have at bedside for bronchospasm. Do not administer without physician present., Starting on Thu10/25/23 at 1915, Until Thu11/03/23 at 2049, For 1 dose, WASTE INFO: Return waste medication to pharmacy in zip lock bag - SPC container. hEParin 1000 UNIT/ML inj 1,200 Units 1,200 Units (rounded from 1,194 Units = 15 Units/kg 79.6 kg Adjusted weight), IV Push, PRN Other, If most recent aPTT result is between 56 and 65 seconds., Starting on Thu10/21/23 at 2314, Until Thu10/29/23 at 0909, Repeat aPTT 6 hours after bolus is administered. Send message to pharmacy if dose needed. Given 10/22/2023 4:43 PM EST 1,200 Units hEParin 1000 UNIT/ML inj 1,200 Units 1,200 Units (rounded from 1,158 Units = 15 Units/kg 77.2 kg Adjusted weight), IV Push, PRN Other, If most recent Heparin Assay result is between 0.21 and 0.29 units/mL, Starting on Thu10/29/23 at 1340, Until Thu11/03/23 at 1025, Repeat Heparin Assay 6 hours after bolus is administered. Send message to pharmacy if dose needed. Given 11/01/2023 1:41 PM EST 1,200 Units hEParin 1000 UNIT/ML inj 2,400 Units 2,400 Units (rounded from 2,388 Units = 30 Units/kg 79.6 kg Adjusted weight), IV Push, PRN Other, If most recent aPTT result is less than or equal to 55 seconds, Starting on Thu10/21/23 at 2314, Until Dayan 10/29/23 at 0909, Repeat aPTT 6 hours after bolus is administered. Send message to pharmacy if dose needed. Given 10/22/2023 7:22 AM EST 2,400 Units hEParin 25,000 units in 250 mL (aPTT-Cardiac) infusion Intravenous, at 0-23.88 mL/hr, Start heparin as soon as baseline labs are drawn. Please select this medication from the infusion pump library! Concentration: 100 units/mL Expires 96 hours after spiking on (date) at (hour) , TITRATE, Starting on Dayan 10/22/23 at 0000, Until Dayan 10/29/23 at 0909 Rate Verify 10/29/2023 8:00 AM EST 17 Units/kg/hr 13.53 mL/hr Nurse Change 10/29/2023 7:20 AM EST 17 Units/kg/hr 13.53 m L/hr New Bag 10/29/2023 5:56 AM EST 17 Units/kg/hr 13.53 mL/ hr hEParin 25,000 units in 250 mL (Xa-Cardiac) infusion Intravenous, at 0-23.16 mL/hr, Start heparin as soon as baseline labs are drawn. Please select this medication from the infusion pump library! Concentration: 100 units/mL Expires 96 hours after spiking on (date) at (hour) , TITRATE, Starting on Dayan 10/29/23 at 1415, Until Thu11/03/23 at 1025 Rate Verify 11/03/2023 9:16 AM EST 19 Units/kg/hr 14.67 mL/hr Nurse Change 11/03/2023 7:20 AM EST 19 Units/kg/hr 14.67 m L/hr New Bag 11/03/2023 2:07 AM EST 19 Units/kg/hr 14.67 mL/ hr isolyte 500 mL bolus infusion Intravenous, Administer entire volume within 60 minutes or less. Plasma-LYTE 148, isolyte-S, and isolyte-S pH 7.4 are considered equivalent - including for MAR barcode scanning., ONCE, 1 dose, On Thu10/23/23 at 0915 New Bag 10/23/2023 11:14 AM EST 500 mL 100 mL/hr isolyte 500 mL bolus infusion Intravenous, Administer entire volume within 60 minutes or less. Plasma-LYTE 148, isolyte-S, and isolyte-S pH 7.4 are considered equivalent - including for MAR barcode scanning., ONCE, 1 dose, On 10/24/23 at 1545 New Bag 10/24/2023 3:05 PM EST 500 mL 500 mL/hr isolyte 500 mL bolus infusion Intravenous, Administer entire volume within 60 minutes or less. Plasma-LYTE 148, isolyte-S, and isolyte-S pH 7.4 are considered equivalent - including for MAR barcode scanning., ONCE, 1 dose, On Thu10/25/23 at 0915 New Bag 10/25/2023 9:18 AM EST 500 mL 500 mL/hr isolyte 500 mL bolus infusion Intravenous, Administer entire volume within 60 minutes or less. Plasma-LYTE 148, isolyte-S, and isolyte-S pH 7.4 are considered equivalent - including for MAR barcode scanning., ONCE, 1 dose, On Thu10/25/23 at 1500 New Bag 10/25/2023 2:23 PM EST 500 mL 500 mL/hr isolyte 500 mL bolus infusion Intravenous, Administer entire volume within 60 minutes or less. Plasma-LYTE 148, isolyte-S, and isolyte-S pH 7.4 are considered equivalent - including for MAR barcode scanning., ONCE, 1 dose, On Thu10/26/23 at 1130 New Bag 10/26/2023 12:24 PM EST 500 mL 500 mL/hr isolyte 500 mL bolus infusion Intravenous, Administer entire volume within 60 minutes or less. Plasma-LYTE 148, isolyte-S, and isolyte-S pH 7.4 are considered equivalent - including for MAR barcode scanning., ONCE, 1 dose, On Thu10/27/23 at 0730 New Bag 10/27/2023 6:53 AM EST 500 mL 1000 mL/hr isolyte-S pH 7.4 infusion Intravenous, at 100 mL/hr, Plasma-LYTE 148, isolyte-S, and isolyte-S pH 7.4 are considered equivalent - including for MAR barcode scanning., CONTINUOUS, Starting on Thu10/22/23 at 1715, Until Thu10/22/23 at 2214 New 10/22/2023 5:11 PM EST 100 mL/hr isolyte-S pH 7.4 infusion Intravenous, at 75 mL/hr, Plasma-LYTE 148, isolyte-S, and isolyte-S pH 7.4 are considered equivalent - including for MAR barcode scanning., CONTINUOUS, Starting on Thu10/27/23 at 1515, Until Thu10/28/23 at 0314 New 10/27/2023 3:54 PM EST 75 mL/hr Lidocaine (Aspercreme) 4 % patch 1 Patch 1 Patch, Transdermal, Daily(AM), First dose on Thu10/30/23 at 2030, Until Discontinued, Apply patch for 12 hours then remove for 12 hours! Remove any Lidocaine patches the patient may currently be wearing prior to applying the new patch. Apply to L knee Patch Applied 11/02/2023 9:00 PM EST 1 Patch Knee Left Patch Applied 11/01/2023 8:01 PM EST 1 Patch Knee Right Patch Applied 10/31/2023 9:00 PM EST 1 Patch Knee Right Lidocaine (Aspercreme) 4 % patch 1 Patch 1 Patch, Transdermal, Daily(AM), First dose on Thu10/30/23 at 2030, Until Discontinued, Apply patch for 12 hours then remove for 12 hours! Remove any Lidocaine patches the patient may currently be wearing prior to applying the new patch. Apply to R knee Patch Applied 11/02/2023 9:20 PM EST 1 Patch Knee Left Patch Applied 11/01/2023 8:00 PM EST 1 Patch Knee Left Patch Applied 10/31/2023 9:00 PM EST 1 Patch Knee Left metoprolol succinate XL (toPROL XL) tab 25 mg 25 mg, Oral, BID (.AM/PM), First dose on Thu11/03/23 at 1100, Until Discontinued, Hold for HR less than 60 or SBP below 100 and notify service if dose is held This med should NOT be Crushed or Chewed. Given 11/03/2023 11:14 AM EST 25 mg metoprolol succinate XL (toPROL XL) tab 25 mg 25 mg, Oral, Daily(AM), First dose (after last modification) on Thu11/04/23 at 0900, Until Discontinued, Hold for HR less than 60 or SBP below 100 and notify service if dose is held This med should NOT be Crushed or Chewed. Metoprolol Tartrate (Lopressor) inj 10 mg 10 mg, IV Push, Q6H, First dose (after last modification) on Thu10/27/23 at 1800, Until Discontinued, Hold for HR less than 60 or SBP below 100 and notify service if dose is held Given 10/29/2023 6:18 AM EST 10 mg Given 10/28/2023 11:23 PM EST 10 mg Given 10/28/2023 6:00 PM EST 10 mg Metoprolol Tartrate (Lopressor) inj 2.5 mg 2.5 mg, IV Push, ONCE, On Thu10/21/23 at 2245, For 1 dose Given 10/21/2023 10:09 PM EST 2.5 mg Metoprolol Tartrate (Lopressor) inj 2.5 mg 2.5 mg, IV Push, ONCE, On Thu10/21/23 at 2345, For 1 dose Given 10/21/2023 11:20 PM EST 2.5 mg Metoprolol Tartrate (Lopressor) inj 5 mg 5 mg, IV Push, ONCE, On Dayan 10/22/23 at 0045, For 1 dose Given 10/22/2023 12:27 AM EST 5 mg Metoprolol Tartrate (Lopressor) inj 5 mg 5 mg, IV Push, Q4H, First dose on Thu10/23/23 at 1200, Until Discontinued, Hold for HR less than 60 or SBP below 100 and notify service if dose is held Given 10/25/2023 4:04 AM EST 5 mg Given 10/24/2023 11:52 PM EST 5 mg Given 10/24/2023 8:20 PM EST 5 mg Metoprolol Tartrate (Lopressor) inj 5 mg 5 mg, IV Push, Q2H, First dose (after last modification) on Thu10/25/23 at 1200, Until Discontinued, Hold for HR less than 60 or SBP below 100 and notify service if dose is held Given 10/25/2023 6:08 PM EST 5 mg Given 10/25/2023 12:42 PM EST 5 mg Metoprolol Tartrate (Lopressor) inj 5 mg 5 mg, IV Push, Q6H, First dose (after last modification) on Thu10/26/23 at 0000, Until Discontinued, Hold for HR less than 60 or SBP below 100 and notify service if dose is held Given 10/26/2023 12:28 PM EST 5 mg Given 10/26/2023 6:45 AM EST 5 mg Metoprolol Tartrate (Lopressor) inj 5 mg 5 mg, IV Push, Q4H, First dose (after last modification) on Thu10/26/23 at 1600, Until Discontinued, Hold for HR less than 60 or SBP below 100 and notify service if dose is held Given 10/27/2023 11:51 AM EST 5 mg Given 10/27/2023 7:39 AM EST 5 mg Given 10/27/2023 4:10 AM EST 5 mg Metoprolol Tartrate (Lopressor) inj 5 mg 5 mg, IV Push, ONCE, On Thu10/29/23 at 0415, For 1 dose Given 10/29/2023 3:47 AM EST 5 mg Metoprolol Tartrate (Lopressor) inj 5 mg 5 mg, IV Push, Q6H PRN Other, HR>120, Starting on Thu10/29/23 at 0915, Until Thu10/30/23 at 1137, Hold for HR less than 60 or SBP below 100 and notify service if dose is held Given 10/30/2023 7:28 AM EST 5 mg Given 10/29/2023 11:51 PM EST 5 mg Given 10/29/2023 6:15 PM EST 5 mg Metoprolol Tartrate (Lopressor) inj 5 mg 5 mg, IV Push, Q6H, First dose (after last modification) on Thu10/30/23 at 1215, Until Discontinued, Hold for HR less than 60 or SBP below 100 and notify service if dose is held Given 11/03/2023 5:39 AM EST 5 mg Given 11/02/2023 11:42 PM EST 5 mg Given 11/02/2023 5:54 PM EST 5 mg Metoprolol Tartrate (Lopressor) tab 25 mg 25 mg, Oral, Q12H, First dose on Thu10/22/23 at 2100, Until Discontinued, Hold for HR less than 60 or SBP below 100 and notify service if dose is held Given 10/23/2023 8:16 AM EST 25 mg Given 10/22/2023 8:13 PM EST 25 mg neostigmine methylsulfate 10 MG/10ML inj 2 mg 2 mg, IV Push, ONCE, On Thu10/25/23 at 2030, For 1 dose Given 10/25/2023 8:12 PM EST 2 mg oxyCODONE (Oxy IR) tab 5 mg 5 mg, Oral, ONCE, On Thu10/21/23 at 2130, For 1 dose Given 10/21/2023 9:47 PM EST 5 mg oxygen GAS Inhalation, OXYGEN, First dose on Dayan 10/22/23 at 0000, Until Discontinued, Device/Managed by: Low Flow Device, Goal SPO2 (%): 91-95, Starting Device: Nasal Cannula, Initial Flow Rate (LPM): 2, Lowest Support: Nasal Cannula: Flow 0-6 LPM. Titrate up/down by 1 LPM., Titration Interval: Q2 minutes and as needed., Notify Provider: For sudden DECREASE in resting SPO2 to less than 85% and when escalating delivery device., Wean patient off Oxygen when the oxygen saturation is greater than or equal to 93% Oxygen On 10/29/2023 7:59 AM EST Oxygen On 10/29/2023 12:00 AM EST Oxygen On 10/28/2023 12:00 AM EST Piperacillin-Tazobactam (Zosyn) 4.5 g in 100 mL NSS ivpb (FOUR hour infusion) IV Piggyback, 4.5 g, Q8HNOW, 15 doses, First dose on Thu10/22/23 at 0300, Last dose on Thu10/26/23 at 1900, Administer over 4 Hours, at 25 mL/hr New Bag 10/24/2023 3:08 AM EST 4.5 g 25 mL/hr New Bag 10/23/2023 6:39 PM EST 4.5 g 25 mL/hr New Bag 10/23/2023 11:32 AM EST 4.5 g 25 mL/hr Piperacillin-Tazobactam (Zosyn) 4.5 g in 100 mL NSS ivpb (HALF hour infusion) IV Piggyback, 4.5 g, ONCE, 1 dose, On Thu10/21/23 at 2130, Administer over 30 Minutes New Bag 10/21/2023 10:20 PM EST 4.5 g 200 mL/hr Polyethylene Glycol 3350 (Miralax) oral powder 17 g 17 g (1 Packet), Oral, BID (0900,2100), First dose on Thu10/22/23 at 2100, Until Discontinued, Mix in 8 oz of water, juice, soda, coffee, or tea. Given 10/23/2023 8:16 AM EST 17 g Given 10/22/2023 8:13 PM EST 17 g potassium chloride 10 mEq in 100 mL ivpb LOCKED DOSE 10 mEq, Peripheral IV, Q1H, 2 doses, First dose on Thu10/26/23 at 1800, Last dose on Thu10/26/23 at 1900, Administer over 60 Minutes, Standard infusion duration is 60 minutes. New Bag 10/26/2023 5:30 PM EST 10 mEq 100 mL/hr potassium chloride 10 mEq in 100 mL ivpb LOCKED DOSE 10 mEq, Peripheral IV, Q1H, 4 doses, First dose on Thu10/29/23 at 1000, Last dose on Thu10/29/23 at 1300, Administer over 60 Minutes, Standard infusion duration is 60 minutes. New Bag 10/29/2023 12:25 PM EST 10 mEq 100 mL/hr New Bag 10/29/2023 11:13 AM EST 10 mEq 100 mL/hr potassium chloride ER tab 20 mEq 20 mEq, Oral, ONCE, On Dayan 10/22/23 at 0145, For 1 dose, This med should NOT be Crushed or Chewed Given 10/22/2023 1:13 AM EST 20 mEq potassium chloride ER tab 30 mEq 30 mEq, Oral, ONCE, On 10/25/23 at 1745, For 1 dose, This med should NOT be Crushed or Chewed Given 10/25/2023 6:07 PM EST 30 mEq potassium chloride ER tab 40 mEq 40 mEq, Oral, ONCE, On Dayan 10/22/23 at 0715, For 1 dose, This med should NOT be Crushed or Chewed Given 10/22/2023 6:42 AM EST 40 mEq potassium chloride ER tab 40 mEq 40 mEq, Oral, Q1H, First dose on 10/24/23 at 0700, Last dose on 10/24/23 at 0800, For 2 doses, This med should NOT be Crushed or Chewed Given 10/24/2023 8:08 AM EST 40 mEq Given 10/24/2023 6:41 AM EST 40 mEq potassium chloride ER tab 40 mEq 40 mEq, Oral, Now and Q1H, First dose on 10/25/23 at 0630, Last dose on 10/25/23 at 0700, For 2 doses, This med should NOT be Crushed or Chewed Given 10/25/2023 8:11 AM EST 40 mEq Given 10/25/2023 6:09 AM EST 40 mEq potassium CHLORide liquid 20 mEq 20 mEq, Oral, ONCE, On Thu10/27/23 at 0900, For 1 dose, To avoid GI irritation, must further diilute 15 ml in 3 ounces H2O or other fluid Given 10/27/2023 9:43 AM EST 20 mEq potassium CHLORide liquid 20 mEq 20 mEq, Oral, ONCE, On Dayan 10/29/23 at 1430, For 1 dose, To avoid GI irritation, must further diilute 15 ml in 3 ounces H2O or other fluid Given 10/29/2023 3:37 PM EST 20 mEq tap water enema 1 Enema 1 Enema, Rectal, ONCE, On Dayan 10/22/23 at 1630, For 1 dose Given 10/22/2023 4:30 PM EST 1 Enema Technetium Tc 99m Mebrofenin (Choletec) inj 5 millicurie 5 millicurie, Intravenous, ONCE, On Thu10/23/23 at 1315, For 1 dose, Radiology Medication Routing (Non-IR) Given 10/23/2023 12:30 PM EST 6 millicuries Hand Right trimethobenzamide (Tigan) inj 100 mg 100 mg, Intramuscular, ONCE, On 10/24/23 at 0415, For 1 dose Given 10/24/2023 4:57 AM EST 100 mg Deltoid Left Upper vancomycin (Vancocin) 1,250 mg in NSS 250 mL ivpb 1,250 mg, IV Piggyback, [id number], First dose on Dayan 10/22/23 at 0900, Until Discontinued New Bag 10/22/2023 8:01 AM EST 1,250 mg 183.33 mL/hr vancomycin (Vancocin) 2,750 mg in NSS 500 mL ivpb 2,750 mg, IV Piggyback, ONCE, 1 dose, On 10/21/23 at 2145 New Bag 10/21/2023 11:00 PM EST 2,750 mg 183.33 mL/hr documented in this encounter Active and Recently Administered Medications Times are shown in EST. Scheduled Medication Order 11/01/2023 11/02/2023 11/03/2023 Apixaban (Eliquis) tab 5 mg 5 mg, Oral, BID (.AM/PM), First dose on Thu11/03/23 at 1100, Until Discontinued 1114 (Given - Provider: Karlee Johnson, RADHA) Bumetanide (Bumex) tab 1 mg 1 mg, Oral, Daily(AM), First dose on Thu11/03/23 at 1400, Until Discontinued 1536 (Given - Provider: Karlee Johnson, RADHA) Digoxin (Lanoxin) 0.25 MG/ML inj 100 mcg (CANCELED) 100 mcg, IV Push, Daily(AM), First dose on Thu10/30/23 at 0900, Until Discontinued, NOTE CONC: 250 MCG/ML PROTECT FROM LIGHT 0936 (Given - Provider: Eden Escobar RN) 0905 (Given - Provider: Eden Escobar RN) 0755 (Given - Provider: Karlee Johnson RN) Digoxin (Lanoxin) tab 125 mcg 125 mcg, Oral, Daily(AM), First dose on Thu11/04/23 at 0900, Until Discontinued, Hold For HR Less than 60 and notify service if dose is held Lidocaine (Aspercreme) 4 % patch 1 Patch 1 Patch, Transdermal, Daily(AM), First dose on Thu10/30/23 at 2030, Until Discontinued, Apply patch for 12 hours then remove for 12 hours! Remove any Lidocaine patches the patient may currently be wearing prior to applying the new patch. Apply to L knee 0859 (Patch Removed - Provider: Yaneth Hwang RN)2000 (Patch Applied - Provider: Yaneth Hwang RN) 800 (Patch Removed - Provider: Eden Escobar RN)2099 (Patch Applied - Provider: Deedee Guzman LPN) 0859 (Patch Removed - Provider: Karlee Johnson RN) Lidocaine (Aspercreme) 4 % patch 1 Patch 1 Patch, Transdermal, Daily(AM), First dose on Thu10/30/23 at 2030, Until Discontinued, Apply patch for 12 hours then remove for 12 hours! Remove any Lidocaine patches the patient may currently be wearing prior to applying the new patch. Apply to R knee 0859 (Patch Removed - Provider: Yaneth Hwang RN)1999 (Patch Applied - Provider: Yaneth Hwang RN) 799 (Patch Removed - Provider: Eden Escobar RN)2119 (Patch Applied - Provider: Deedee Guzman LPN)2120 (Entry Error - Provider: Deedee Guzman LPN) metoprolol succinate XL (toPROL XL) tab 25 mg (CANCELED) 25 mg, Oral, BID (.AM/PM), First dose on Thu11/03/23 at 1100, Until Discontinued, Hold for HR less than 60 or SBP below 100 and notify service if dose is held This med should NOT be Crushed or Chewed. 1114 (Given - Provider: Karlee Johnson RN) metoprolol succinate XL (toPROL XL) tab 25 mg 25 mg, Oral, Daily(AM), First dose (after last modification) on Thu11/04/23 at 0900, Until Discontinued, Hold for HR less than 60 or SBP below 100 and notify service if dose is held This med should NOT be Crushed or Chewed. Metoprolol Tartrate (Lopressor) inj 5 mg (CANCELED) 5 mg, IV Push, Q6H, First dose (after last modification) on Thu10/30/23 at 1215, Until Discontinued, Hold for HR less than 60 or SBP below 100 and notify service if dose is held 0502 (Given - Provider: Yaneth Hwang RN)1132 (Given - Provider: Eden Escobar RN)1952 (Given - Provider: Yaneth Hwang RN) 0017 (Given - Provider: Yaneth Hwang RN)0636 (Given - Provider: Yaneth Hwang RN)1153 (Given - Provider: Eden Escobar RN)1754 (Given - Provider: Eden Escobar RN)2342 (Given - Provider: Zoya Grayson, RN) 0539 (Given - Provider: Zoya Grayson, RN) oxygen GAS Inhalation, OXYGEN, First dose on Dayan 10/22/23 at 0000, Until Discontinued, Device/Managed by: Low Flow Device, Goal SPO2 (%): 91-95, Starting Device: Nasal Cannula, Initial Flow Rate (LPM): 2, Lowest Support: Nasal Cannula: Flow 0-6 LPM. Titrate up/down by 1 LPM., Titration Interval: Q2 minutes and as needed., Notify Provider: For sudden DECREASE in resting SPO2 to less than 85% and when escalating delivery device., Wean patient off Oxygen when the oxygen saturation is greater than or equal to 93% 0000 (Oxygen Off - Provider: Yaneth Hwang RN)0800 (Oxygen Off - Provider: Eden Escobar RN)1600 (Oxygen Off - Provider: Eden Escobar RN) 0000 (Oxygen Off - Provider: Yaneth Hwang RN)0800 (Oxygen Off - Provider: Eden Escobar RN)1600 (Oxygen Off - Provider: Eden Escobar RN) 0000 (Oxygen Off - Provider: Deedee Guzman LPN)0800 (Oxygen Off - Provider: Karlee Johnson RN)1600 (Oxygen Off - Provider: Karlee Johnson RN) Continuous Medication Order 11/01/2023 11/02/2023 11/03/2023 hEParin 25,000 units in 250 mL (Xa-Cardiac) infusion (CANCELED) Intravenous, at 0-23.16 mL/hr, Start heparin as soon as baseline labs are drawn. Please select this medication from the infusion pump library! Concentration: 100 units/mL Expires 96 hours after spiking on (date) at (hour) , TITRATE, Starting on Dayan 10/29/23 at 1415, Until Thu11/03/23 at 1025 0717 (Nurse Change - Provider: Yaneth Hwang RN)1132 (Rate Change - Provider: Eden Escobar RN - Comment: new bag)1940 (Nurse Change - Provider: Yaneth Hwang RN)2235 (Rate Verify - Provider: Yaneth Hwang RN - Comment: 1st therapeutic XA, will recheck in 6 hrs) 0400 (Rate Verify - Provider: Yaneth Hwang RN - Comment: 2nd therapeutic XA, will now check daily)0901 (New Bag - Provider: Eden Escobar RN)1922 (Nurse Change - Provider: Eden Escobar RN) 0207 (New Bag - Provider: Deedee Guzman LPN)0720 (Nurse Change - Provider: Deedee Guzman LPN)0916 (Rate Verify - Provider: Karlee Johnson RN) PRN Medication Order 11/01/2023 11/02/2023 11/03/2023 Acetaminophen (Tylenol) tab 975 mg 975 mg, Oral, Q4H PRN Pain, Mild, Fever >38C(100.5F), Starting on Thu10/21/23 at 204, Until Thu11/03/23 at 2049, Maximum of 4 grams (4000 mg) per day. atropine sulfate inj 1 mg 1 mg, IV Push, ONCE PRN Other, Please have at bedside for bradycardia. Do not administer without physician present., Starting on Thu10/25/23 at 1912, Until Thu11/03/23 at 205, For 1 dose Glycopyrrolate (Robinul) inj 0.2 mg 0.2 mg, Intravenous, ONCE PRN Other, Please have at bedside for bronchospasm. Do not administer without physician present., Starting on 10/25/23 at 1915, Until Thu11/03/23 at 2049, For 1 dose, WASTE INFO: Return waste medication to pharmacy in zip lock bag - SPC container. hEParin 1000 UNIT/ML inj 1,200 Units (CANCELED) 1,200 Units (rounded from 1,158 Units = 15 Units/kg 77.2 kg Adjusted weight), IV Push, PRN Other, If most recent Heparin Assay result is between 0.21 and 0.29 units/mL, Starting on Dayan 10/29/23 at 1340, Until Thu11/03/23 at 1025, Repeat Heparin Assay 6 hours after bolus is administered. Send message to pharmacy if dose needed. 1341 (Given - Provider: Eden Escobar, RADHA) ondansetron (Zofran) inj 4 mg 4 mg, IV Push, Q6H PRN Nausea, Starting on Thu11/03/23 at 1026, Until Thu11/03/23 at 2049, Discharge/Readmit sodium chloride 0.9 % flush/inj 3 mL 3 mL, IV Push, PRN Other, Line Patency, Starting on Thu11/03/23 at 1026, Until Thu11/03/23 at 2049, Do not flush if lock, PICC, or central line not in place, IV infusing or unable to flush, Discharge/Readmit documented in this encounter Additional Health Concerns Infection Onset Date Last Indicated Resolved Time Respiratory Rule-Out 10/21/2023 10/21/202310/22/2 023 12:06 AM EST COVID-19 Rule-Out 10/21/2023 10/21/2023 10/22/2023 12:06 AM EST C. difficile Rule-Out 10/26/2023 10/26/20232023 1:25 PM EST Gastrointestinal Rule-Out 10/26/2023 10/26/2023 7:51 PM EST documented as of this encounter Advance Directives Latest [...] the patient have Health Care Power of Modern And Contemporary Art Curator? No Code Status History Code Status Date [...] the patient have Health Care Power of Modern And Contemporary Art Curator? No Full Code 07/22/2016 6:01 PM 07/29/2016 8:21 PM This order reflects the patients wishes and were consensually agreed upon. Question Answer Comments Discussion of Advance Directives occurred with: Patient Does the patient have a Living Will? No Does the patient have Health Care Power of Modern And Contemporary Art Curator? No Full Code 01/22/2015 6:34 AM 01/24/2015 9:44 PM This o rder reflects the patients wishes and were consensually agreed upon. Question Answer Comments Discussion of Advance Directives occurred with: Patient Does the patient have a Living Will? No Does the patient have Health Care Power of Modern And Contemporary Art Curator? No Care Teams Jacquard Card Lacer Relationship Specialty Start Date End Date Lucie Montero DO [address] [place] [address] PCP - General Family Medicine 10/08/23 documented as of this encounter
--- OUTSIDE RECORDS SUMMARY | 2023-11-12 22:21 | External Medical Summary ---
Author Name Unknown Address Unknown Organization [id number]:[facility] [address] [place] [address] Laboratory Report Ordering Provider Test Date Status MANUELJACOB 11/01/2023 07:01:00 Final Observation Date Value Abnormality Reference (Units ) Status Phosphate 11/01/2023 07:01:00 3.5 2.5-4.8 (m g/dL) Final Performing Location [facility] - [address] [place] [address]
--- OUTSIDE RECORDS SUMMARY | 2023-11-12 22:21 | External Medical Summary ---
Author Name Unknown Address Unknown Organization [id number]:[facility] [place] [address] [facility] [place] [address] Laboratory Report Ordering Provider Test Date Status YUN DAWN 10/31/2023 07:05:00 Final Observation Date Value Abnormality Reference (Units ) Status Heparin, unfractionated level 10/31/2023 07:05:00 0.55 Above high normal <0.10 (IU/mL) Final Unfractionated therapeutic r anges for Anti Xa activity:
For Cardiac/Neurologic treatment: 0.3 to 0.6 IU/mL.
For treatment of DVT or Pulmonary Embolism: 0.3 to 0.7 IU/mL. Performing Location [facility] [place] [address] [facility] [address]
--- OUTSIDE RECORDS SUMMARY | 2023-11-12 22:22 | External Medical Summary ---
Author Name Unknown Address Unknown Organization [id number]:LABORATORY [facility] [place] - [facility] [address] Laboratory Report Ordering Provider Test Date Status JACOB JACKSON 10/28/2023 05:32:00 Final Observation Date Value Abnormality Reference (Units ) Status WBC, Total 10/28/2023 05:32:00 5.65 4.00-10.80 (K/uL) Final RBC 10/28/2023 05:32:00 4.88 3.85-5.15 (M/uL) Final Hemoglobin 10/28/2023 05:32:00 14.6 12.0-15.3 (g/dL) Final HCT 10/28/2023 05:32:00 44.3 36.0-45.2 (%) Final MCV 10/28/2023 05:32:00 90.8 81.5-97.5 (fL) Final MCH 10/28/2023 05:32:00 29.9 27.0-34.0 (pg) Final MCHC 10/28/2023 05:32:00 33.0 32.0-36.0 (g/dL) Final RDW 10/28/2023 05:32:00 14.5 11.5-15.5 (%) Final Platelets 10/28/2023 05:32:00 212 140-400 (K/uL) Final MPV 10/28/2023 05:32:00 10.3 6.6-11.1 (fL) Final Nucleated erythrocytes/100 leukocytes [Ratio] in Blood by Automated count 10/28/2023 05:32:00 0 <=0 (/100 WBCs) Final Performing Location LABORATORY [facility] [place] - [address] [place] [address]
--- OUTSIDE RECORDS SUMMARY | 2023-11-12 22:22 | External Medical Summary ---
Author Name Unknown Address Unknown Organization [id number]:[facility]ATORY [facility] [place] - [address] [facility] [facility] [address] Laboratory Report Ordering Provider Test Date Status BELEMMARYAMCRISTELJamia 10/29/2023 06:13:00 Final Anticoagulation may affect t esting. Refer to [employer] Test Catalog for a list of effects. Observation Date Value Abnormality Reference (Units ) Status aPTT panel - Platelet poor plasma 10/29/2023 06:13:00 73 Above high normal 21-38 (seconds) Final Performing Location [facility]ATORY [facility] [place] - [address] [facility] [address]
--- OUTSIDE RECORDS SUMMARY | 2023-11-12 22:22 | External Medical Summary ---
Author Name Unknown Address Unknown Organization [id number]:[facility] [place] [address] [place] [address] Laboratory Report Ordering Provider Test Date Status CHANTEOLIVIARICHARDSONIvett 10/26/2023 04:38:00 Final Warfarin Therapy
INR: 2 .0-3.0 conventional anticoagulation
INR: 2.5- 3.5 high intensity anticoagulation Observation Date Value Abnormality Reference (Units ) Status PT 10/26/2023 04:38:00 13.8 11.6-15.2 (seconds) Final INR 10/26/2023 04:38:00 1.0 0.8-1.2 Final Performing Location [facility] [place] [address] [place] [address]
--- OUTSIDE RECORDS SUMMARY | 2023-11-12 22:22 | External Medical Summary ---
Author Name Unknown Address Unknown Organization [id number]:[facility] [place] [facility] [address] [facility] [address] Laboratory Report Ordering Provider Test Date Status KARLA EMERSON 10/26/2023 04:37:00 Final Observation Date Value Abnormality Reference (Units ) Status BUN 10/26/2023 04:37:00 58 Above high normal 6-20 (mg/dL) Final Creatinine 10/26/2023 04:37:00 1.6 Above high normal 0.5-1.0 (mg/dL) Final Glomerular filtration rate/1.73 sq M.predicted [Volume Rate/Area] in Serum, Plasma or Blood by Creatinine-based formula (CKD-EPI) 10/26/2023 04:37:00 35 Below low normal >=60 (mL/min) Final eGFR is calculated based on the CKD-EPI 2020 equation SODIUM 10/26/2023 04:37:00 135 135-146 (m mol/L) Final Potassium 10/26/2023 04:37:00 4.2 3.5-5.1 (m mol/L) Final Cl 10/26/2023 04:37:00 102 98-107 (mm ol/L) Final CO2 10/26/2023 04:37:00 17 Below low normal 22- 32 (mmol/L) Final Anion gap 10/26/2023 04:37:00 16 Above high normal 7- 15 (mmol/L) Final Glucose 10/26/2023 04:37:00 111 70-120 (mg /dL) Final Calcium 10/26/2023 04:37:00 9.7 8.4-10.2 ( mg/dL) Final Performing Location [facility] [place] [address] [place] [address]
--- OUTSIDE RECORDS SUMMARY | 2023-11-12 22:22 | External Medical Summary ---
Author Name Unknown Address Unknown Organization [id number][place] [place] [address] [facility] [address] [place] [address] Laboratory Report Ordering Provider Test Date Status KARLA EMERSON 10/26/2023 11:43:48 Final No Aeromonas species or Ples iomonas species isolated.
Microbial imbalance observed
Reduced normal apurva. Clinical correlation needed. Observation Date Value Abnormality Reference (Units ) Status Bacteria identified in Specimen by Culture 10/26/2023 11:43:48 [id number]^YEAST Abnormal Final Yeast
Test: Gastrointest inal Pathogen Panel Culture
Specimen Source: Stool
Specimen Type: Stool
Specimen Date: 10/26/2023 11:43 AM
Result Date: 10/29/2023 11:13 AM
Result Status: Final result
Abnormal: Yes
Resulting Lab: [facility] [place]
[address]
[facility] [address]

CULTURE

Yeast (Abnormal)

No Aeromonas species or Plesiomonas species isolated.Microbial imbalance
observedReduced normal apurva. Clinical correlation needed.

null Performing Location [facility] [place] [address] [facility] [address]
--- OUTSIDE RECORDS SUMMARY | 2023-11-12 22:22 | External Medical Summary ---
Author Name Unknown Address Unknown Organization K01:[facility]ORY [facility] [place] [address] [facility] [address] [facility] [address] Laboratory Report Ordering Provider Test Date Status OSMAR GERARD 10/27/2023 05:14:00 Final Get stat/now aPTT [address] each heparin dose adjustment

Anticoagulation may affect testing. Refer to [facility] Test Catalog for a list of effects. Observation Date Value Abnormality Reference (Units ) Status aPTT panel - Platelet poor plasma 10/27/2023 05:14:00 78 Above high normal 21-38 (seconds) Final Performing Location [facility] [place] - [facility] [address] [facility] [address]
--- OUTSIDE RECORDS SUMMARY | 2023-11-12 22:22 | External Medical Summary ---
Author Name Unknown Address Unknown Organization K01:[place] [place] [address] [facility] [address] [facility] [address] Laboratory Report Ordering Provider Test Date Status JACOB JACKSON 10/28/2023 05:32:00 Final Observation Date Value Abnormality Reference (Units ) Status Magnesium 10/28/2023 05:32:00 3.1 Above high normal 1. 5-2.6 (mg/dL) Final Performing Location [facility] - [address] [place] [address]
--- OUTSIDE RECORDS SUMMARY | 2023-11-12 22:22 | External Medical Summary ---
Author Name Unknown Address Unknown Organization K01:[facility] [place] [address] [facility] [address] Laboratory Report Ordering Provider Test Date Status RAMONE JACKSONO 10/29/2023 06:13:00 Final Observation Date Value Abnormality Reference (Units ) Status Magnesium 10/29/2023 06:13:00 2.7 Above high normal 1. 5-2.6 (mg/dL) Final Performing Location [facility] - [address] [place] [address]
--- OUTSIDE RECORDS SUMMARY | 2023-11-12 22:22 | External Medical Summary | Summary of Care ---
Author Name Unknown Organization [facility] Address [address] [place] [address] Phone [phone] Care Team Providers Care Optical Brightener Maker Helper Name Role Phone Lucie Montero DO Primary Care Provider [phone] Reason for Visit * Reason Onset Date Comments Information 10/22/2023 Encounter Details Date Type Department Care Team (Late st Contact Info) Description 10/22/2023 Telephone Family Practice [address] [facility] [place] [address] [place] [address] Lucie Montero DO [address] [place] [address] Information Allergies Active Allergy Reactions Criticality Noted Date [...] as of this encounter (statuses as of 10/28/2023) Medications Medication Sig Dispensed Refills Start Date End Date Status Cholecalciferol 25 MCG (1000 UT) Oral Capsule Take by mouth. 0 Suspende d Ascorbic Acid 1000 MG Oral Tablet Take by mouth. 0 Suspended Multivitamin Adult Extra C Oral Tablet Chewable Take by mouth . 0 Suspended Baclofen 10 MG Oral Tablet (Lioresal) TAKE 1 TAB BY MOUTH 2 TIMES A DAY NEEDED FOR CRAMPING OR MUSCLE SPASMS. 60 Tablet 1 07/10/2022 Suspended Additional Information Bumetanide 1 MG Oral Tablet (Bumex) TAKE 1 TAB BY MOUTH IN THE MORNING. TAKE ONE EXTRA TAB DAILY NEEDED FOR WEIGHT GAIN DIRECTED 180 Tablet 1 04/07/2023 Suspended Additional Information Potassium Chloride Jihan ER 10 MEQ Oral Tablet Extended Release (Klor-Con M10) TAKE 2 TABLETS BY MOUTH EVERY DAY 180 Tablet 1 04/07/2023 Suspended Additional Information Patient taking differently: 20 mEq Oral DAILY NOON, TAKE 2 TABLETS BY MOUTH EVERY DAY, Reported on 10/08/2023 Allopurinol 300 MG Oral Tablet (Zyloprim) Take 1 Tablet by mouth in the morning. 90 Tablet 3 08/18/2023 Suspended Additional Information Patient not taking.Reported on 09/29/2023 hydroCHLOROthiaz sharmin 12.5 MG Oral Capsule (Hydrodiuril) Take 1 Capsule by mouth in the morning. 90 Capsule 3 09/14/2023 Suspended Additional Information Patient not taking.Reported on 09/29/2023 HYDROcodone-Acet aminophen 7.5-325 MG Oral TabletIndication s:Controlled substance agreement signed,Status post right knee replacement,Rota tor cuff syndrome of left shoulder Take 1 Tablet by mouth every 8 hours as needed for Pain, Breakthrough or Pain, Severe. 30 Tablet 0 09/15/2023 Suspended Additional Information Patient not taking.Reported on 10/22/2023 Montelukast Sodium 10 MG Oral Tablet (Singulair) TAKE 1 TABLET BY MOUTH EVERY DAY IN THE MORNING 90 Tablet 1 10/06/2023 Suspended Additional Information Patient not taking.Reported on 10/08/2023 Atenolol 25 MG Oral Tablet (Tenormin) Take 0.5-1 Tablets by mouth in the morning. 0.5 tablet daily, takes 1 mg if BP elevated and heart rate elevated, usually takes 0.5 tablet. 0 Suspended Eliquis 5 MG Oral Tablet Take 1 Tablet by mouth in the morning and 1 Tablet before bedtime. 0 10/05/2023 Suspended Zinc 50 MG Oral Tablet Take 1 Tablet by mouth daily. 0 Suspended BiPAP every night at bedtime. 0 Suspended documented as of this encounter (statuses as of 10/28/2023) Active Problems Problem Noted Date Diagnosed Date [...] as of this encounter (statuses as of 10/28/2023) Resolved Problems Problem Noted Date Diagnosed Date [...] as of this encounter (statuses as of 10/28/2023) Immunizations Name Administration Dates Next Due PPD [...] encounter Miscellaneous Notes * Telephone Encounter - Lucie Montero DO - 10/28/2023 3:28 PM EST Pt hospitalized. Will await results of the admission. * Telephone Encounter - Alba Watkins LPN - 10/22/2023 9:22 AM EST Email received from zio suite stating that the monitor was not activated, would you like reapplication? Patient will not be charged twice, confirmed with zio. Thank you documented in this encounter Plan of Treatment Upcoming Encounters Date Type Department Care Team (Late st Contact Info) Description 11/13/2023 9:45 AM EST Office Visit Cardiology, [facility] [address] [facility] [place] [address] Maggie Melendez [facility] [address] [facility] [address] 12/10/2023 2:20 PM EST Office Visit Family Practice 65 [facility] [address] [facility], [place] [address] Lucie Montero DO [address] [place] [address] 12/24/2023 2:00 PM EST Nurse Only Ancillary 65 [facility] [address] [facility], [place] [address] College, Nurse Annual Wellness Visit [address], [place] [address] 09/30/2024 2:30 PM EST Office Visit Otolaryngology [facility] [address] [facility] [place] [address] Femi Bal DO [address] [facility] [place] [address] Health Maintenance Due Date Last Done Comments COVID-19 Vaccine (#1) 05/20/1956 Pneumococcal Vaccine: 65+ Years (1 - PCV) 1960 DTaP,Tdap,and Td Vaccines (1 - Tdap) 1973 Mammogram 1994 Zoster Vaccines (1 of 2) 2004 COLONOSCOPY-EVERY 5 YRS AGES 18-100 06/24/2021 06/24/2016, 06/24/2016 Influenza Vaccine (FLU shot) (#1) 2023 Depression Screening 10/08/2024 10/08/2023, 01/30/2015 (Declined) GFR 10/28/2024 10/28/2023, 11/2023, 10/27/2023, Additional history exists Albumin/Creatinine Ratio 05/18/2026 05/18/2023 Diabetes Screening 10/28/2026 10/28/2023, 0 10/27/2023, 10/27/2023, Additional history exists Lipid Panel 10/21/2028 10/21/2023, [...] Not on filedocumented as of this encounter Additional Health Concerns Infection Onset Date Last Indicated Resolved Time Respiratory Rule-Out 10/21/2023 10/21/2023 023 12:06 AM EST COVID-19 Rule-Out 10/21/2023 10/21/2023 10/22/2023 12:06 AM EST C. difficile Rule-Out 10/26/2023 10/26/20232023 1:25 PM EST Gastrointestinal Rule-Out 10/26/2023 10/26/2023 7:51 PM EST documented as of this encounter Advance Directives Latest Code Status on File Code Status Date Activated Date Inactivated Comments Full Code 10/21/2023 8:39 PM This orde r reflects the patients wishes and were consensually agreed upon. Question Answer Comments Discussion of Advance Directives occurred with: Patient Code Status History Code Status Date Activated Date Inactivated Comments Full Code 10/20/2023 10:48 PM 10/21/2023 8:38 PM Th is order reflects the patients wishes and were consensually agreed upon. Question Answer Comments Discussion of Advance Directives occurred with: Patient Does the patient have a Living Will? No Does the patient have Health Care Power of Classroom Coordinator? No Full Code 07/22/2016 6:01 PM 07/29/2016 8:21 PM This order reflects the patients wishes and were consensually agreed upon. Question Answer Comments Discussion of Advance Directives occurred with: Patient Does the patient have a Living Will? No Does the patient have Health Care Power of Classroom Coordinator? No Full Code 01/22/2015 6:34 AM 01/24/2015 9:44 PM This o rder reflects the patients wishes and were consensually agreed upon. Question Answer Comments Discussion of Advance Directives occurred with: Patient Does the patient have a Living Will? No Does the patient have Health Care Power of Classroom Coordinator? No Care Teams Optical Brightener Maker Helper Relationship Specialty Start Date End Date Lucie Montero DO [address] [place] [address] PCP - General Family Medicine 10/08/23 documented as of this encounter
--- OUTSIDE RECORDS SUMMARY | 2023-11-12 22:22 | External Medical Summary ---
Author Name Unknown Address Unknown Organization K01:LABORATORY [facility] [place] - [facility] [address] [facility] [address] [facility] [address] Laboratory Report Ordering Provider Test Date Status OSMAR GERARD 10/26/2023 04:38:00 Final Get stat/now aPTT [address] each heparin dose adjustment

Anticoagulation may affect testing. Refer to [facility] Test Catalog for a list of effects. Observation Date Value Abnormality Reference (Units ) Status aPTT panel - Platelet poor plasma 10/26/2023 04:38:00 82 Above high normal 21-38 (seconds) Final Performing Location LABORATORY [facility] [place] - [facility] [address] [facility] [address]
--- OUTSIDE RECORDS SUMMARY | 2023-11-12 22:22 | External Medical Summary ---
Author Name Unknown Address Unknown Organization K01:LABORATORY [facility] [place] - [facility] [address] [facility] [address] Laboratory Report Ordering Provider Test Date Status JACOB JACKSON 10/29/2023 06:13:00 Final Observation Date Value Abnormality Reference (Units ) Status WBC, Total 10/29/2023 06:13:00 5.59 4.00-10.80 (K/uL) Final RBC 10/29/2023 06:13:00 5.10 3.85-5.15 (M/uL) Final Hemoglobin 10/29/2023 06:13:00 15.0 12.0-15.3 (g/dL) Final HCT 10/29/2023 06:13:00 45.9 Above high normal 36.0-45.2 (%) Final MCV 10/29/2023 06:13:00 90.0 81.5-97.5 (fL) Final MCH 10/29/2023 06:13:00 29.4 27.0-34.0 (pg) Final MCHC 10/29/2023 06:13:00 32.7 32.0-36.0 (g/dL) Final RDW 10/29/2023 06:13:00 14.2 11.5-15.5 (%) Final Platelets 10/29/2023 06:13:00 234 140-400 (K/uL) Final MPV 10/29/2023 06:13:00 10.2 6.6-11.1 (fL) Final Nucleated erythrocytes/100 leukocytes [Ratio] in Blood by Automated count 10/29/2023 06:13:00 0 <=0 (/100 WBCs) Final Performing Location LABORATORY [facility] [place] - [address] [facility] [address]
--- OUTSIDE RECORDS SUMMARY | 2023-11-12 22:22 | External Medical Summary ---
Author Name Unknown Address Unknown Organization K01:[facility] [place] [address] [place] [address] Laboratory Report Ordering Provider Test Date Status IDANIAKARLA 10/26/2023 11:43:48 Final Observation Date Value Abnormality Reference (Units) Status Source 10/26/2023 11:43:48 Liquid Final Clostridioides difficile toxin and [id number] strain DNA panel - Stool by JOLENE with probe detection 10/26/2023 11:43:48 Negative. No C. difficile toxin B gene DNA detected by PCR (Amplified Probe). Negative Final Performing Location LABOR[facility]ORY [facility] [place] [address] [facility] [address]
--- OUTSIDE RECORDS SUMMARY | 2023-11-12 22:22 | External Medical Summary ---
Author Name Unknown Address Unknown Organization K01:LABORATORY [facility] [place] - [address] [facility] [address] Laboratory Report Ordering Provider Test Date Status KARLA EMERSON 10/26/2023 04:37:00 Final Observation Date Value Abnormality Reference (Units ) Status Phosphate 10/26/2023 04:37:00 5.7 Above high normal 2. 5-4.8 (mg/dL) Final Performing Location [facility] - [address] [facility] [address]
--- OUTSIDE RECORDS SUMMARY | 2023-11-12 22:22 | External Medical Summary ---
Author Name Unknown Address Unknown Organization K01:[facility]ATORY [facility] - [address] [place] [address] Laboratory Report Ordering Provider Test Date Status MANUELRAMONE GUEVARAO 10/28/2023 05:32:00 Final Observation Date Value Abnormality Reference (Units ) Status Phosphate 10/28/2023 05:32:00 3.5 2.5-4.8 (m g/dL) Final Performing Location [facility] [address] [facility] [address]
--- OUTSIDE RECORDS SUMMARY | 2023-11-12 22:22 | External Medical Summary ---
Author Name Unknown Address Unknown Organization K01:[place]ATORY [facility] [place] [address] [place] [address] Laboratory Report Ordering Provider Test Date Status CHANTEOLIVIARICHARDSONIvett 10/27/2023 05:14:00 Final Warfarin Therapy
INR: 2 .0-3.0 conventional anticoagulation
INR: 2.5- 3.5 high intensity anticoagulation Observation Date Value Abnormality Reference (Units ) Status PT 10/27/2023 05:14:00 14.0 11.6-15.2 (seconds) Final INR 10/27/2023 05:14:00 1.1 0.8-1.2 Final Performing Location LAB[facility]ATORY [facility] [place] [address] [place] [address]
--- OUTSIDE RECORDS SUMMARY | 2023-11-12 22:22 | External Medical Summary ---
Author Name Unknown Address Unknown Organization K01:LABORATORY [facility] [place] - [facility] [place] [facility] [address] Laboratory Report Ordering Provider Test Date Status KARLA EMERSON 10/26/2023 15:33:00 Final Observation Date Value Abnormality Reference (Units ) Status BUN 10/26/2023 15:33:00 60 Above high normal 6-20 (mg/dL) Final Creatinine 10/26/2023 15:33:00 1.4 Above high normal 0.5-1.0 (mg/dL) Final Glomerular filtration rate/1.73 sq M.predicted [Volume Rate/Area] in Serum, Plasma or Blood by Creatinine-based formula (CKD-EPI) 10/26/2023 15:33:00 41 Below low normal >=60 (mL/min) Final eGFR is calculated based on the CKD-EPI 2020 equation SODIUM 10/26/2023 15:33:00 136 135-146 (m mol/L) Final Potassium 10/26/2023 15:33:00 3.8 3.5-5.1 (m mol/L) Final Cl 10/26/2023 15:33:00 102 98-107 (mm ol/L) Final CO2 10/26/2023 15:33:00 18 Below low normal 22- 32 (mmol/L) Final Anion gap 10/26/2023 15:33:00 16 Above high normal 7- 15 (mmol/L) Final Glucose 10/26/2023 15:33:00 105 70-120 (mg /dL) Final Calcium 10/26/2023 15:33:00 9.2 8.4-10.2 ( mg/dL) Final Performing Location LABORATORY [facility] [place] - [address] [place] [address]
--- OUTSIDE RECORDS SUMMARY | 2023-11-12 22:22 | External Medical Summary ---
Author Name Unknown Address Unknown Organization K01:LABORATORY [facility] [place] - [address] [facility] [address] Laboratory Report Ordering Provider Test Date Status KARLA EMERSON 10/26/2023 04:37:00 Final Observation Date Value Abnormality Reference (Units ) Status Magnesium 10/26/2023 04:37:00 3.2 Above high normal 1. 5-2.6 (mg/dL) Final Performing Location [facility] - [address] [facility] [address]
--- OUTSIDE RECORDS SUMMARY | 2023-11-12 22:22 | External Medical Summary ---
Author Name Unknown Address Unknown Organization K01:[place]ATORY [facility] [place] [address] [facility] [address] [place] [address] Laboratory Report Ordering Provider Test Date Status JACOB JACKSON 10/28/2023 18:32:00 Final Observation Date Value Abnormality Reference (Units ) Status BUN 10/28/2023 18:32:00 45 Above high normal 6-20 (mg/dL) Final Creatinine 10/28/2023 18:32:00 1.0 0.5-1.0 (mg/dL) Final Glomerular filtration rate/1.73 sq M.predicted [Volume Rate/Area] in Serum, Plasma or Blood by Creatinine-based formula (CKD-EPI) 10/28/2023 18:32:00 61 >=60 (mL/min) Final eGFR is calculated based on the CKD-EPI 2020 equation SODIUM 10/28/2023 18:32:00 137 135-146 (m mol/L) Final Potassium 10/28/2023 18:32:00 3.4 Below low normal 3.5 -5.1 (mmol/L) Final Cl 10/28/2023 18:32:00 104 98-107 (mm ol/L) Final CO2 10/28/2023 18:32:00 19 Below low normal 22- 32 (mmol/L) Final Anion gap 10/28/2023 18:32:00 14 7-15 (mmol /L) Final Glucose 10/28/2023 18:32:00 129 Above high normal 70 -120 (mg/dL) Final Calcium 10/28/2023 18:32:00 9.2 8.4-10.2 ( mg/dL) Final Performing Location LAB[facility]ATORY [facility] [place] [address] [place] [address]
--- OUTSIDE RECORDS SUMMARY | 2023-11-12 22:22 | External Medical Summary ---
Author Name Unknown Address Unknown Organization K01:LABORATORY [facility] [place] - [address] [facility] [address] [place] [address] Laboratory Report Ordering Provider Test Date Status JACOB JACKSON 10/29/2023 06:13:00 Final Observation Date Value Abnormality Reference (Units ) Status BUN 10/29/2023 06:13:00 42 Above high normal 6-20 (mg/dL) Final Creatinine 10/29/2023 06:13:00 0.9 0.5-1.0 (mg/dL) Final Glomerular filtration rate/1.73 sq M.predicted [Volume Rate/Area] in Serum, Plasma or Blood by Creatinine-based formula (CKD-EPI) 10/29/2023 06:13:00 68 >=60 (mL/min) Final eGFR is calculated based on the CKD-EPI 2020 equation SODIUM 10/29/2023 06:13:00 135 135-146 (m mol/L) Final Potassium 10/29/2023 06:13:00 3.3 Below low normal 3.5 -5.1 (mmol/L) Final Cl 10/29/2023 06:13:00 104 98-107 (mm ol/L) Final CO2 10/29/2023 06:13:00 15 Below low normal 22- 32 (mmol/L) Final Anion gap 10/29/2023 06:13:00 16 Above high normal 7- 15 (mmol/L) Final Glucose 10/29/2023 06:13:00 142 Above high normal 70 -120 (mg/dL) Final Calcium 10/29/2023 06:13:00 9.4 8.4-10.2 ( mg/dL) Final Performing Location LABORATORY [facility] [place] - [address] [place] [address]
--- OUTSIDE RECORDS SUMMARY | 2023-11-12 22:22 | External Medical Summary ---
Author Name Unknown Address Unknown Organization K01:LAB[facility]ATORY [facility] [place] [facility] [address] Laboratory Report Ordering Provider Test Date Status KARLA EMERSON 10/26/2023 11:43:48 Final Observation Date Value Abnormality Reference (Units ) Status Campylobacter sp DNA.diarrheagenic [Presence] in Stool by JOLENE with probe detection 10/26/2023 11:43:48 Negative Negative Final Salmonella sp rpoD gene [Presence] in Stool by JOLENE with probe detection 10/26/2023 11:43:48 Negative Negative Final Shigella species+EIEC invasion plasmid antigen H ipaH gene [Presence] in Stool by JOLENE with probe detection 10/26/2023 11:43:48 Negative Negative Final Vibrio sp DNA [Identifier] in Specimen by JOLENE with probe detection 10/26/2023 11:43:48 Negative Negative Final Yersinia enterocolitica recN gene [Presence] in Stool by JOLENE with probe detection 10/26/2023 11:43:48 Negative Negative Final Escherichia coli Stx1 toxin stx1 gene [Presence] in Stool by JOLENE with probe detection 10/26/2023 11:43:48 Negative Negative Final Escherichia coli Stx2 toxin stx2 gene [Presence] in Stool by JOLENE with probe detection 10/26/2023 11:43:48 Negative Negative Final Norovirus genogroups I and II RNA panel - Stool by JOLENE with probe detection 10/26/2023 11:43:48 Negative Negative Final Rotavirus A RNA [Presence] in Stool by JOLENE with probe detection 10/26/2023 11:43:48 Negative Negative Final Performing Location LABORATORY [address] [address]
--- OUTSIDE RECORDS SUMMARY | 2023-11-12 22:22 | External Medical Summary ---
Author Name Unknown Address Unknown Organization K01:LAB[facility]ATORY [facility] [place] - [facility] [address] [facility] [address] Laboratory Report Ordering Provider Test Date Status KARLA EMERSON 10/27/2023 05:14:00 Final Observation Date Value Abnormality Reference (Units ) Status BUN 10/27/2023 05:14:00 62 Above high normal 6-20 (mg/dL) Final Creatinine 10/27/2023 05:14:00 1.4 Above high normal 0.5-1.0 (mg/dL) Final Glomerular filtration rate/1.73 sq M.predicted [Volume Rate/Area] in Serum, Plasma or Blood by Creatinine-based formula (CKD-EPI) 10/27/2023 05:14:00 41 Below low normal >=60 (mL/min) Final eGFR is calculated based on the CKD-EPI 2020 equation SODIUM 10/27/2023 05:14:00 136 135-146 (m mol/L) Final Potassium 10/27/2023 05:14:00 3.8 3.5-5.1 (m mol/L) Final Cl 10/27/2023 05:14:00 102 98-107 (mm ol/L) Final CO2 10/27/2023 05:14:00 15 Below low normal 22- 32 (mmol/L) Final Anion gap 10/27/2023 05:14:00 19 Above high normal 7- 15 (mmol/L) Final Glucose 10/27/2023 05:14:00 109 70-120 (mg /dL) Final Calcium 10/27/2023 05:14:00 9.5 8.4-10.2 ( mg/dL) Final Performing Location LABORATORY [facility] [place] [address] [place] [address]
--- OUTSIDE RECORDS SUMMARY | 2023-11-12 22:22 | External Medical Summary ---
Author Name Unknown Address Unknown Organization K01:LABORATORY [address] [address] Laboratory Report Ordering Provider Test Date Status OSMAR GERARD 10/26/2023 04:37:00 Final Observation Date Value Abnormality Reference (Units ) Status WBC, Total 10/26/2023 04:37:00 4.91 4.00-10.80 (K/uL) Final RBC 10/26/2023 04:37:00 5.36 3.85-5.15 (M/uL) Final Hemoglobin 10/26/2023 04:37:00 15.9 Above high normal 12.0-15.3 (g/dL) Final HCT 10/26/2023 04:37:00 49.2 Above high normal 36.0-45.2 (%) Final MCV 10/26/2023 04:37:00 91.8 81.5-97.5 (fL) Final MCH 10/26/2023 04:37:00 29.7 27.0-34.0 (pg) Final MCHC 10/26/2023 04:37:00 32.3 32.0-36.0 (g/dL) Final RDW 10/26/2023 04:37:00 14.5 11.5-15.5 (%) Final Platelets 10/26/2023 04:37:00 254 140-400 (K/uL) Final MPV 10/26/2023 04:37:00 10.4 6.6-11.1 (fL) Final Nucleated erythrocytes/100 leukocytes [Ratio] in Blood by Automated count 10/26/2023 04:37:00 0 <=0 (/100 WBCs) Final Performing Location LAB[facility]ORY [facility] [place] [address] [facility] [address]
--- OUTSIDE RECORDS SUMMARY | 2023-11-12 22:22 | External Medical Summary ---
Author Name Unknown Address Unknown Organization K01:[place] [facility] [place] [address] [facility] [address] [facility] [address] Laboratory Report Ordering Provider Test Date Status MANUELJACOB 10/28/2023 05:32:00 Final Anticoagulation may affect t esting. Refer to [employer] Test Catalog for a list of effects. Observation Date Value Abnormality Reference (Units ) Status aPTT panel - Platelet poor plasma 10/28/2023 05:32:00 74 Above high normal 21-38 (seconds) Final Performing Location [place] [facility] [place] [address] [facility] [address]
--- OUTSIDE RECORDS SUMMARY | 2023-11-12 22:23 | External Medical Summary ---
Author Name Unknown Address Unknown Organization : Laboratory Report Ordering Provider Test Date Status DANIEL ALCALA 10/25/2023 03:53:35 Final Observation Date Value Abnormality Reference (Units ) Status Glucose Point of Care 10/25/2023 03:53:35 128 Above high normal 70-120 (mg/dL) Final Performing Location
--- OUTSIDE RECORDS SUMMARY | 2023-11-12 22:23 | External Medical Summary | Summary of Care ---
Author Name Unknown Organization [facility] Address [address] [place] [address] Phone [phone] Care Team Providers Care Coal Hauler Name Role Phone Lucie Montero Primary Care Provider + [phone] Encounter Details Date Type Department Care Team (Late st Contact Info) Description 10/20/2023 CardioDiagnostic Study Unspecified Department Hernan Park DO [address] [place] [address] EKG Report Allergies Active Allergy Reactions Criticality Noted Date [...] as of this encounter (statuses as of 10/24/2023) Medications Medication Sig Dispensed Refills Start Date [...] as of this encounter (statuses as of 10/24/2023) Active Problems Problem Noted Date Diagnosed Date Ileus, postoperative 10/23/2023 Paroxysmal atrial fibrillation 10/21/2023 [...] as of this encounter (statuses as of 10/24/2023) Resolved Problems Problem Noted Date Diagnosed Date [...] as of this encounter (statuses as of 10/24/2023) Immunizations Name Administration Dates Next Due PPD [...] deaf or do you have serious difficulty h earing? No 07/22/2016 Are you blind or do you have serious difficulty seeing, even when wearing glasses? No 07/22/2016 Do you have serious difficul ty walking or climbing stairs? (5 years old or older) No 07/22/2016 Do you have difficulty dress ing or bathing? (5 years old or older) No 07/22/2016 Because of a physical, menta l, or emotional condition, do you have difficulty doing errands alone such as visiting a doctor s office or shopping? (15 years old or older) No 07/22/20 16 Cognitive Status Response Date of Assessm ent Because of a physical, menta l, or emotional condition, do you have serious difficulty concentrating, remembering, or making decisions? (5 years old or older) No 07/22/2016 documented as of this encounter Procedure Notes * Hiram Rivero MD - 10/20/2023 4:49 PM ESTAssociated Order(s): EKG REPORT REASON FOR STUDY: SOB CONCLUSIONS: Atrial flutter with premature ventricular or aberrantly conducted complexes Nonspecific intraventricular conduction block Nonspecific ST abnormality When compared with ECG of 20-OCT-2023 15:03, Atrial flutter has replaced Sinus rhythm Vent. rate has increased BY 72 BPM QRS duration has increased Nonspecific T wave abnormality now evident in Inferior leads Nonspecific T wave abnormality, worse in Anterior-lateral leads Ventricular Rate: 153 Atrial Rate: 153 IN Interval: 96 QRS Duration: 126 QT/QTc: 264/421 ms P-R-T [place]: 70 : 26 : 149 degrees documented in this encounter Plan of Treatment Upcoming Encounters Date Type Department Care Team (Late st Contact Info) Description 11/13/2023 9:45 AM EST Office Visit Cardiology, [facility] [address] [facility] [place] [address] Maggie Melendez, DO [address] [facility] [place] [address] 12/10/2023 2:20 PM EST Office Visit Family Practice [address] [facility] [address] [facility] [place] [address] Lucie Montero [address] [place] [address] 12/24/2023 2:00 PM EST Nurse Only Ancillary [address] [place] [address] College, Nurse Annual Wellness Visit [address] [place] [address] 09/30/2024 2:30 PM EST Office Visit Otolaryngology [facility] [address] [facility] [place] [address] Femi Bal, DO [address] [facility] [place] [address] Health Maintenance Due Date Last Done Comments COVID-19 Vaccine (#1) 05/20/1956 Pneumococcal Vaccine: 65+ Years (1 - PCV) 1960 DTaP,Tdap,and Td Vaccines (1 - Tdap) 1973 Mammogram 1994 Zoster Vaccines (1 of 2) 2004 COLONOSCOPY-EVERY 5 YRS AGES 18-100 06/24/2021 06/24/2016, 06/24/2016 Influenza Vaccine (FLU shot) (#1) 2023 Depression Screening 10/08/2024 10/08/2023, 01/30/2015 (Declined) GFR 10/24/2024 10/24/2023, 09/26, 10/22/2023, Additional history exists Albumin/Creatinine Ratio 05/18/2026 05/18/2023 Diabetes Screening 10/24/2026 10/24/2023, 1 , 10/22/2023, Additional history exists Lipid Panel 10/21/2028 10/21/2023, [...] Procedure Name Priority Date/Time Associated Diagnosis Comments EKG REPORT 10/20/2023 4:49 PM EST documented in this encounter Results * EKG REPORT (10/20/2023 4:49 PM EST) 10/20/2023 4:49 PM EST Narrative Procedure Note Hiram Rivero MD - 10/20/2023 4:49 PM EST REASON FOR STUDY: SOB CONCLUSIONS: Atrial flutter with premature ventricular or aberrantly conductedcomplexes Nonspecific intraventricular conduction block Nonspecific ST abnormality When compared with ECG of 20-OCT-2023 15:03, Atrial flutter has replaced Sinus rhythm Vent. rate has increased BY 72 BPM QRS duration has increased Nonspecific T wave abnormality now evident in Inferior leads Nonspecific T wave abnormality, worse in Anterior-lateral leads Ventricular Rate: 153 Atrial Rate: 153 IN Interval: 96 QRS Duration: 126 QT/QTc: 264/421 ms P-R-T [place]: 70 : 26 : 149 degrees Hernan Park DO EKG documented in this encounter Additional Health Concerns Infection Onset Date Last Indicated Resolved Time Respiratory Rule-Out 10/20/2023 10/20/2023 023 7:14 PM EST COVID-19 Rule-Out 10/20/2023 10/20/2023 10/20/2023 7:14 PM EST Respiratory Rule-Out 10/21/2023 10/21/2023 023 12:06 AM EST COVID-19 Rule-Out 10/21/2023 10/21/2023 10/22/2023 12:06 AM EST documented as of this encounter Advance [...] the patient have Health Care Power of Membership Solicitor? No Full Code 07/22/2016 6:01 PM 07/29/2016 8:21 PM This order reflects the patients wishes and were consensually agreed upon. Question Answer Comments Discussion of Advance Directives occurred with: Patient Does the patient have a Living Will? No Does the patient have Health Care Power of Membership Solicitor? No Full Code 01/22/2015 6:34 AM 01/24/2015 9:44 PM This o rder reflects the patients wishes and were consensually agreed upon. Question Answer Comments Discussion of Advance Directives occurred with: Patient Does the patient have a Living Will? No Does the patient have Health Care Power of Membership Solicitor? No Care Teams Coal Hauler Relationship Specialty Start Date End Date Lucie Montero DO [address] [place] [address] PCP - General Family Medicine 10/08/23 documented as of this encounter
--- OUTSIDE RECORDS SUMMARY | 2023-11-12 22:23 | External Medical Summary ---
Author Name Unknown Address Unknown Organization K01:LAB[facility]ATORY [facility] - [address] [place] [address] Laboratory Report Ordering Provider Test Date Status KARLA EMERSON 10/23/2023 06:47:00 Final Observation Date Value Abnormality Reference (Units ) Status Phosphate 10/23/2023 06:47:00 4.3 2.5-4.8 (m g/dL) Final Performing Location [facility] [address] [facility] [address]
--- OUTSIDE RECORDS SUMMARY | 2023-11-12 22:23 | External Medical Summary ---
Author Name Unknown Address Unknown Organization K01:LABORATORY [address] [address] Laboratory Report Ordering Provider Test Date Status OSMAR GERARD 10/25/2023 05:02:00 Final Observation Date Value Abnormality Reference (Units ) Status WBC, Total 10/25/2023 05:02:00 4.87 4.00-10.80 (K/uL) Final RBC 10/25/2023 05:02:00 5.37 3.85-5.15 (M/uL) Final Hemoglobin 10/25/2023 05:02:00 15.7 Above high normal 12.0-15.3 (g/dL) Final HCT 10/25/2023 05:02:00 49.9 Above high normal 36.0-45.2 (%) Final MCV 10/25/2023 05:02:00 92.9 81.5-97.5 (fL) Final MCH 10/25/2023 05:02:00 29.2 27.0-34.0 (pg) Final MCHC 10/25/2023 05:02:00 31.5 32.0-36.0 (g/dL) Final RDW 10/25/2023 05:02:00 14.2 11.5-15.5 (%) Final Platelets 10/25/2023 05:02:00 230 140-400 (K/uL) Final MPV 10/25/2023 05:02:00 9.9 6.6-11.1 (fL) Final Nucleated erythrocytes/100 leukocytes [Ratio] in Blood by Automated count 10/25/2023 05:02:00 0 <=0 (/100 WBCs) Final Performing Location LABORATORY [facility] [place] - [address] [facility] [address]
--- OUTSIDE RECORDS SUMMARY | 2023-11-12 22:23 | External Medical Summary ---
Author Name Unknown Address Unknown Organization K01:LABORATORY [facility] [place] - [address] [place] [address] Laboratory Report Ordering Provider Test Date Status RICHARDSON GERARDIvett 10/23/2023 06:47:00 Final Warfarin Therapy
INR: 2 .0-3.0 conventional anticoagulation
INR: 2.5- 3.5 high intensity anticoagulation Observation Date Value Abnormality Reference (Units ) Status PT 10/23/2023 06:47:00 14.8 11.6-15.2 (seconds) Final INR 10/23/2023 06:47:00 1.1 0.8-1.2 Final Performing Location LABORATORY [facility] [place] - [address] [place] [address]
--- OUTSIDE RECORDS SUMMARY | 2023-11-12 22:23 | External Medical Summary ---
Author Name Unknown Address Unknown Organization K01:LABORATORY [facility] [place] [address] [place] [address] Laboratory Report Ordering Provider Test Date Status RICHARDSON GERARDIvett 10/24/2023 05:44:00 Final Warfarin Therapy
INR: 2 .0-3.0 conventional anticoagulation
INR: 2.5- 3.5 high intensity anticoagulation Observation Date Value Abnormality Reference (Units ) Status PT 10/24/2023 05:44:00 14.3 11.6-15.2 (seconds) Final INR 10/24/2023 05:44:00 1.1 0.8-1.2 Final Performing Location LABOR[place]ORY [facility] [place] [address] [place] [address]
--- OUTSIDE RECORDS SUMMARY | 2023-11-12 22:23 | External Medical Summary ---
Author Name Unknown Address Unknown Organization K01:[place] [facility] [place] [address] [facility] [address] Laboratory Report Ordering Provider Test Date Status OSMAR GERARD 10/24/2023 05:44:00 Final Observation Date Value Abnormality Reference (Units ) Status WBC, Total 10/24/2023 05:44:00 7.45 4.00-10.80 (K/uL) Final RBC 10/24/2023 05:44:00 5.13 3.85-5.15 (M/uL) Final Hemoglobin 10/24/2023 05:44:00 15.1 12.0-15.3 (g/dL) Final HCT 10/24/2023 05:44:00 47.3 Above high normal 36.0-45.2 (%) Final MCV 10/24/2023 05:44:00 92.2 81.5-97.5 (fL) Final MCH 10/24/2023 05:44:00 29.4 27.0-34.0 (pg) Final MCHC 10/24/2023 05:44:00 31.9 32.0-36.0 (g/dL) Final RDW 10/24/2023 05:44:00 14.1 11.5-15.5 (%) Final Platelets 10/24/2023 05:44:00 228 140-400 (K/uL) Final MPV 10/24/2023 05:44:00 9.9 6.6-11.1 (fL) Final Nucleated erythrocytes/100 leukocytes [Ratio] in Blood by Automated count 10/24/2023 05:44:00 0 <=0 (/100 WBCs) Final Performing Location LABORATORY C - [address] [facility] [address]
--- OUTSIDE RECORDS SUMMARY | 2023-11-12 22:23 | External Medical Summary ---
Author Name Unknown Address Unknown Organization K01:LABORATORY [facility] [place] - [address] [place] [id number] Laboratory Report Ordering Provider Test Date Status RICHARDSON GERARDIvett 10/25/2023 05:02:00 Final Warfarin Therapy
INR: 2 .0-3.0 conventional anticoagulation
INR: 2.5- 3.5 high intensity anticoagulation Observation Date Value Abnormality Reference (Units ) Status PT 10/25/2023 05:02:00 14.0 11.6-15.2 (seconds) Final INR 10/25/2023 05:02:00 1.1 0.8-1.2 Final Performing Location LABORATORY [facility] [place] - [address] [place] [id number]
--- OUTSIDE RECORDS SUMMARY | 2023-11-12 22:23 | External Medical Summary ---
Author Name Unknown Address Unknown Organization K01:LABORATORY [facility] [place] [address] [facility] [address] Laboratory Report Ordering Provider Test Date Status KARLA EMERSON 10/25/2023 05:02:00 Final Observation Date Value Abnormality Reference (Units ) Status Phosphate 10/25/2023 05:02:00 5.1 Above high normal 2. 5-4.8 (mg/dL) Final Performing Location LAB[facility]ATORY [facility] - [address] [facility] [address]
--- OUTSIDE RECORDS SUMMARY | 2023-11-12 22:23 | External Medical Summary ---
Author Name Unknown Address Unknown Organization K01:LABORATORY [facility] - [address] [facility] [address]. [facility] [address] Laboratory Report Ordering Provider Test Date Status OSMAR GERARD 10/24/2023 05:44:00 Final Get stat/now aPTT [address] each heparin dose adjustment

Anticoagulation may affect testing. Refer to [facility] Test Catalog for a list of effects. Observation Date Value Abnormality Reference (Units ) Status aPTT panel - Platelet poor plasma 10/24/2023 05:44:00 81 Above high normal 21-38 (seconds) Final Performing Location LABORATORY [facility] - [facility] Stefano Rehman [facility] [address]
--- OUTSIDE RECORDS SUMMARY | 2023-11-12 22:23 | External Medical Summary ---
Author Name Unknown Address Unknown Organization K01:[place] [facility] [place] [address] [facility] [facility] [address] Laboratory Report Ordering Provider Test Date Status KARLA EMERSON 10/24/2023 05:44:00 Final Observation Date Value Abnormality Reference (Units ) Status Magnesium 10/24/2023 05:44:00 2.8 Above high normal 1. 5-2.6 (mg/dL) Final Performing Location [facility] - [address] [facility] [address]
--- OUTSIDE RECORDS SUMMARY | 2023-11-12 22:23 | External Medical Summary ---
Author Name Unknown Address Unknown Organization [id number]:[place] [facility] [place] [facility] [address] [facility] [address] Laboratory Report Ordering Provider Test Date Status KARLA EMERSON 10/25/2023 15:48:00 Final Observation Date Value Abnormality Reference (Units ) Status BUN 10/25/2023 15:48:00 48 Above high normal 6-20 (mg/dL) Final Creatinine 10/25/2023 15:48:00 1.7 Above high normal 0.5-1.0 (mg/dL) Final Glomerular filtration rate/1.73 sq M.predicted [Volume Rate/Area] in Serum, Plasma or Blood by Creatinine-based formula (CKD-EPI) 10/25/2023 15:48:00 33 Below low normal >=60 (mL/min) Final eGFR is calculated based on the CKD-EPI 2020 equation SODIUM 10/25/2023 15:48:00 134 Below low normal 135 -146 (mmol/L) Final Potassium 10/25/2023 15:48:00 3.7 3.5-5.1 (m mol/L) Final Cl 10/25/2023 15:48:00 100 98-107 (mm ol/L) Final CO2 10/25/2023 15:48:00 17 Below low normal 22- 32 (mmol/L) Final Anion gap 10/25/2023 15:48:00 17 Above high normal 7- 15 (mmol/L) Final Glucose 10/25/2023 15:48:00 116 70-120 (mg /dL) Final Calcium 10/25/2023 15:48:00 9.4 8.4-10.2 ( mg/dL) Final Performing Location [facility] [facility] [place] [address] [facility] [address]
--- OUTSIDE RECORDS SUMMARY | 2023-11-12 22:23 | External Medical Summary ---
Author Name Unknown Address Unknown Organization K01[place] [facility] [place] [facility] [address] [facility] [address] Laboratory Report Ordering Provider Test Date Status OSMAR GERARD 10/24/2023 05:44:00 Final Observation Date Value Abnormality Reference (Units ) Status BUN 10/24/2023 05:44:00 36 Above high normal 6-20 (mg/dL) Final Creatinine 10/24/2023 05:44:00 1.5 Above high normal 0.5-1.0 (mg/dL) Final Glomerular filtration rate/1.73 sq M.predicted [Volume Rate/Area] in Serum, Plasma or Blood by Creatinine-based formula (CKD-EPI) 10/24/2023 05:44:00 39 Below low normal >=60 (mL/min) Final eGFR is calculated based on the CKD-EPI 2020 equation SODIUM 10/24/2023 05:44:00 135 135-146 (m mol/L) Final Potassium 10/24/2023 05:44:00 3.0 Below low normal 3.5 -5.1 (mmol/L) Final Cl 10/24/2023 05:44:00 97 Below low normal 98- 107 (mmol/L) Final CO2 10/24/2023 05:44:00 20 Below low normal 22- 32 (mmol/L) Final Anion gap 10/24/2023 05:44:00 18 Above high normal 7- 15 (mmol/L) Final Glucose 10/24/2023 05:44:00 107 70-120 (mg /dL) Final Calcium 10/24/2023 05:44:00 9.6 8.4-10.2 ( mg/dL) Final Performing Location [facility] [place] [address] [facility] [address]
--- OUTSIDE RECORDS SUMMARY | 2023-11-12 22:23 | External Medical Summary | Summary of Care ---
Author Name Unknown Organization [facility] Address [address] [place] [address] Phone [phone] Care Team Providers Care Learning Disabilities Resource Teacher Name Role Phone Lucie Montero Primary Care Provider + [phone] Reason for Visit * Reason Onset Date Comments Referral 10/13/2023 triage Encounter Details Date Type Department Care Team (Late st Contact Info) Description 10/13/2023 New Patient Triage (TRANSPORTATION WORKER USE ONLY) Cardiology, [facility] [address] [place] [address] Alba Vela CRNP [address] [place] [address] Referral (triage) Allergies Active Allergy Reactions Criticality Noted Date [...] as of this encounter (statuses as of 10/25/2023) Medications Medication Sig Dispensed Refills Start Date [...] 1 Tablet by mouth daily. 0 Suspended documented as of this encounter (statuses as of 10/25/2023) Active Problems Problem Noted Date Diagnosed Date [...] as of this encounter (statuses as of 10/25/2023) Resolved Problems Problem Noted Date Diagnosed Date [...] as of this encounter (statuses as of 10/25/2023) Immunizations Name Administration Dates Next Due PPD [...] No 07/22/2016 documented as of this encounter Progress Notes * Diane Edwards DNP - 10/25/2023 4:20 AM EST Does patient need to be seen?: Yes Modality: Office visit Urgency: Within 10 days (routine) Discussed care plan with patient or proxy?: Yes TRIAGE: - patient currently admitted at [facility] [place] [place] in [place] Would keep cards appt for now for discharge follow-up if needed Communicated with patient on Date (mm/dd/yyyy): 10/13/2023 at Time ([facility]): 1518 Diane Edwards DNP Department [place] [address] [facility] * Jennifer Farfan LPN - 10/13/2023 3:18 PM EST New Patient Triage What is the diagnosis/reason for referral?: I48.0 Enter order ID here: [id number] Specialty specific documentation: Cardiology Structural Heart CARDIAC REFERRAL 10/08/2023 Within 10 days (routine) Paroxysmal atrial fibrillation (HCC) [I48.0] - Primary Dr. Melendez only CARDIOLOGY APPOINTMENT scheduled for 11/13/2023. REFERRING PROVIDER PCP Lucie Burdick, [address] PER REFERRAL NOTES: Office Visit 10/08/[address] 67 year old female who presents today to establish care Pt has a history of A.fib. She had an ablation years ago. She notes that she has had issues with this until March. She notes that prior to this, she would have very random and short bursts of A.fib. She notes that since March, she is having a lot of issues with her HR being between 30s and over 100. She had a heart doctor in [place] advise her to have an ablation. She notes she is very exhausted. She is short of breath. Pt has been taking 1/2 of an atenolol the last few days. Pt has an appt with the [facility] heart clinic in [place] on Thursday. Pt gets swelling in her legs and ankles. She was started on Bumex for heart failure. She was initially on furosemide. She takes the Bumex daily (I48.0) Paroxysmal atrial fibrillation (HCC) (primary encounter diagnosis) Plan: CARDIOLOGY REFERRAL OP, EXTERNAL EKG 2 TO 7 DAYS Pt declines blood thinner. Looking for another opinion regarding recent episodes of A.fib as these are feeling different to her. She wants to be sure that ablation is the correct path for her. She iswilling to take Eliquis just before and after ablation if ablation advised. Will place EP referral. Followed [facility] cardiology, Dr Saldivar Most Recent LAB VALUES 05/18/2023 LIPID panel, CMP, CBC w/diff, Uric acid, BNP(NT-PRO) Troponin, B 12, Urine ALBUM/Creat CARDIAC TESTING EKG-05/20/2023 ZIO- 7 days 10/08/2023 Holter 11/29/2021 CARDIAC CATH-12/18/2014 Patient to keep appointment as scheduled. Discussed care plan with patient or proxy?: Yes Communicated with patient on Date (mm/dd/yyyy): 10/13/2023 at Time ([facility]): 1539 documented in this encounter Plan of Treatment Upcoming Encounters Date Type Department Care Team (Late st Contact Info) Description 11/13/2023 9:45 AM EST Office Visit Cardiology, [facility] [address] [facility] [place] [address] Maggie Melendez DO [address] [place] [address] [place] [address] 12/10/2023 2:20 PM EST Office Visit Family Practice [address] [facility] [address] [facility] [phone] Lucie [facility] [address] [facility] [address] 12/24/2023 2:00 PM EST Nurse Only Ancillary [address] [facility] [address] [facility] [address] College, Nurse Annual Wellness Visit [address] [address] 09/30/2024 2:30 PM EST Office Visit Otolaryngology [facility] [address] [place] [address] Femi Bal, [address] [place] [address] Health Maintenance Due Date Last Done Comments [...] exists Albumin/Creatinine Ratio 05/18/2026 05/18/2023 Diabetes Screening 10/25/2026 10/25/2023, 1 , 10/23/2023, Additional history exists Lipid Panel 10/21/2028 10/21/2023, [...] 10/20/2023 7:14 PM EST Respiratory Rule-Out 10/21/2023 10/21/202310/22/2 023 12:06 AM [...] the patient have Health Care Power of Research Associate? No Full Code 07/22/2016 6:01 PM 07/29/2016 8:21 PM This order reflects the patients wishes and were consensually agreed upon. Question Answer Comments Discussion of Advance Directives occurred with: Patient Does the patient have a Living Will? No Does the patient have Health Care Power of Research Associate? No Full Code 01/22/2015 6:34 AM 01/24/2015 9:44 PM This o rder reflects the patients wishes and were consensually agreed upon. Question Answer Comments Discussion of Advance Directives occurred with: Patient Does the patient have a Living Will? No Does the patient have Health Care Power of Research Associate? No Care Teams Learning Disabilities Resource Teacher Relationship Specialty Start Date End Date Lucie Montero DO [address] [place] [address] PCP - General Family Medicine 10/08/23 documented as of this encounter
--- OUTSIDE RECORDS SUMMARY | 2023-11-12 22:23 | External Medical Summary ---
Author Name Unknown Address Unknown Organization K01:[facility] [place] [address] [facility] [address] [facility] [address] Laboratory Report Ordering Provider Test Date Status OSMAR GERARD 10/25/2023 05:02:00 Final Get stat/now aPTT [address] each heparin dose adjustment

Anticoagulation may affect testing. Refer to [facility] Test Catalog for a list of effects. Observation Date Value Abnormality Reference (Units ) Status aPTT panel - Platelet poor plasma 10/25/2023 05:02:00 93 Above high normal 21-38 (seconds) Final Performing Location [facility] [place] - [facility] [address] [facility] [address]
--- OUTSIDE RECORDS SUMMARY | 2023-11-12 22:23 | External Medical Summary ---
Author Name Unknown Address Unknown Organization K01:[place] [facility] [place] [address] [facility] [address] [facility] [address] Laboratory Report Ordering Provider Test Date Status OSMAR GERARD 10/23/2023 06:47:00 Final Get stat/now aPTT [address] each heparin dose adjustment

Anticoagulation may affect testing. Refer to [facility] Test Catalog for a list of effects. Observation Date Value Abnormality Reference (Units ) Status aPTT panel - Platelet poor plasma 10/23/2023 06:47:00 73 Above high normal 21-38 (seconds) Final Performing Location [place] [facility] [place] [facility] [address] [facility] [address]
--- OUTSIDE RECORDS SUMMARY | 2023-11-12 22:23 | External Medical Summary ---
Author Name Unknown Address Unknown Organization K01:LABORATORY [facility] [place] - [address] [facility] [address] Laboratory Report Ordering Provider Test Date Status JAUN BOWDEN 10/25/2023 11:41:09 Final Observation Date Value Abnormality Reference (Units ) Status RBC, Urine 10/25/2023 11:41:09 0-2 0-2 (/HPF) Final WBC, Urine 10/25/2023 11:41:09 3-5 Abnormal 0-2 (/HPF) Final Bacteria [#/area] in Urine sediment by Microscopy high power field 10/25/2023 11:41:09 101-150 Abnormal 0-25 (/HPF) Final Epithelial cells.squamous [#/area] in Urine sediment by Microscopy high power field 10/25/2023 11:41:09 Many Abnormal None (/HPF) Final Hyaline casts, Urine 10/25/2023 11:41:09 5-9 Abnormal None (/LPF) Final Granular casts [#/area] in Urine sediment by Microscopy low power field 10/25/2023 11:41:09 10-19 Abnormal None (/LPF) Final Performing Location LABORATORY [facility] - [address] [facility] [address]
--- OUTSIDE RECORDS SUMMARY | 2023-11-12 22:23 | External Medical Summary ---
Author Name Unknown Address Unknown Organization K01:[facility] [place] - [facility] [address] Laboratory Report Ordering Provider Test Date Status OSMAR GERARD 10/23/2023 06:47:00 Final Observation Date Value Abnormality Reference (Units ) Status WBC, Total 10/23/2023 06:47:00 7.30 4.00-10.80 (K/uL) Final RBC 10/23/2023 06:47:00 4.90 3.85-5.15 (M/uL) Final Hemoglobin 10/23/2023 06:47:00 14.9 12.0-15.3 (g/dL) Final HCT 10/23/2023 06:47:00 45.1 36.0-45.2 (%) Final MCV 10/23/2023 06:47:00 92.0 81.5-97.5 (fL) Final MCH 10/23/2023 06:47:00 30.4 27.0-34.0 (pg) Final MCHC 10/23/2023 06:47:00 33.0 32.0-36.0 (g/dL) Final RDW 10/23/2023 06:47:00 14.6 11.5-15.5 (%) Final Platelets 10/23/2023 06:47:00 228 140-400 (K/uL) Final MPV 10/23/2023 06:47:00 9.9 6.6-11.1 (fL) Final Nucleated erythrocytes/100 leukocytes [Ratio] in Blood by Automated count 10/23/2023 06:47:00 0 <=0 (/100 WBCs) Final Performing Location LAB[facility]ORY [facility] [place] - [address] [facility] [address]
--- OUTSIDE RECORDS SUMMARY | 2023-11-12 22:23 | External Medical Summary ---
Author Name Unknown Address Unknown Organization K01:[place] [facility] [place] [address] [facility] [address] Laboratory Report Ordering Provider Test Date Status KARLA EMERSON 10/25/2023 05:02:00 Final Observation Date Value Abnormality Reference (Units ) Status Magnesium 10/25/2023 05:02:00 3.1 Above high normal 1. 5-2.6 (mg/dL) Final Performing Location [facility] - [address] [facility] [address]
--- OUTSIDE RECORDS SUMMARY | 2023-11-12 22:24 | External Medical Summary ---
Author Name Unknown Address Unknown Organization K01:LABORATORY [facility] - [address] [address] Laboratory Report Ordering Provider Test Date Status CHANTEOLIVIARICHARDSONIvett 10/21/2023 23:40:00 Final Warfarin Therapy
INR: 2 .0-3.0 conventional anticoagulation
INR: 2.5- 3.5 high intensity anticoagulation Observation Date Value Abnormality Reference (Units ) Status PT 10/21/2023 23:40:00 15.2 11.6-15.2 (seconds) Final INR 10/21/2023 23:40:00 1.2 0.8-1.2 Final Performing Location LABORATORY [facility] - [address] [place] [address]
--- OUTSIDE RECORDS SUMMARY | 2023-11-12 22:24 | External Medical Summary ---
Author Name Unknown Address Unknown Organization K01:[facility] [facility] [place] [address] [place] [address] Laboratory Report Ordering Provider Test Date Status KARLA EMERSON 10/22/2023 14:44:00 Final Observation Date Value Abnormality Reference (Units ) Status Lactic Acid 10/22/2023 14:44:00 1.1 0.4-2.0 (mmol/L) Final Performing Location [facility] [address] [facility] [address]
--- OUTSIDE RECORDS SUMMARY | 2023-11-12 22:24 | External Medical Summary | Summary of Care ---
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[employer] Recovery Name Role Phone Lucie Montero Primary Care Provider + [phone] Reason for Visit * Reason Comments Short of Breath Since March * Auth/Cert Specialty Diagnoses / Procedures Referred By Contac t Referred To Contact Referral ID Status Reason Start Date Expiration Date Visits Re quested Visits Authorized [id number] Encounter Details Date Type Department Care Team (Latest Contact Info) Description 10/20/2023 4:35 PM EST - 10/21/2023 7:00 PM EST Hospital Encounter CCU [facility], Critical Care Unit, [facility] 2nd Floor [address] [place] [address] [place], [address] [place] [address] [id number] Matthew Adams MD [address] [facility] [place] [id number] Neo Belcher DO [address] [facility] [place] [address] Discharge Disposition: Short Term Hospital Allergies Active Allergy Reactions Criticality Noted Date [...] as of this encounter (statuses as of 10/22/2023) Medications Medication Sig Dispensed Refills Start Date [...] 30 Tablet 0 09/15/2023 Suspended Additional Information Montelukast Sodium 10 MG Oral Tablet (Singulair) [...] as of this encounter (statuses as of 10/22/2023) Active Problems Problem Noted Date Diagnosed Date Paroxysmal atrial fibrillation 10/21/2023 Pneumonia 10/21/2023 Severe [...] as of this encounter (statuses as of 10/22/2023) Resolved Problems Problem Noted Date Diagnosed Date [...] as of this encounter (statuses as of 10/22/2023) Immunizations Name Administration Dates Next Due PPD [...] Sign Reading Time Taken Comments Blood Pressure 103/77 10/21/2023 7:00 PM EST Pulse 139 10/21/2023 7:00 PM EST Temperature 38.9 C (102 F) 10/21/2023 7:00 PM EST Respiratory Rate 26 10/21/2023 7:00 PM EST Oxygen Saturation 93% 10/21/2023 7:00 PM EST Inhaled Oxygen Concentration - - Weight 111.6 kg (246 lb 0.5 oz) 023 11:54 AM EST Height 167.6 cm (5' 6") 10/21/2023 11:5 4 AM EST Body Mass Index 39.71 10/21/2023 11:54 AM EST documented in this encounter Functional [...] as of this encounter Discharge Summaries * Neo Belcher, - 10/21/2023 6:38 PM EST [place] [id number] [facility] [id number] Admission Date: 10/20/2023 Discharge Date: 10/21/2023 RECOMMENDED TO DO FOR NEXT PROVIDER(S): Transfer to [facility] for ongoing care and evaluation Dr. Nesbitt accepting physician REASON(S) FOR MEDICATION CHANGE(S): Atrial fibrillation, heart failure, fever DISPOSITION ON DISCHARGE: [facility] Active Hospital Problems Diagnosis *Principal Diagnosis - Acute on chronic systolic heart failure (HCC) Paroxysmal atrial fibrillation (HCC) Pneumonia Severe sepsis with acute organ dysfunction (HCC) Fever of unknown origin Elevated troponin WILL on CPAP Atrial fibrillation with rapid ventricular response (HCC) HTN, goal below 140/90 Resolved Hospital Problems No resolved problems to display. ADMISSION HISTORY & PHYSICAL EXAM (focused): Patient presented to the emergency room with complaints of some shortness of breath and lower extremity edema. In the emergency room she was evaluated and felt to be in acute heart failure. He was also noted that she had some atrial fibrillation with rapid ventricular response. HOSPITAL COURSE (focused): Patient was cared for in the hospital. Initially started with some IV Cardizem for rate control. Patient reports that she had multiple adverse reaction to other beta-blockers and only tolerated atenolol. She was also given IV diuresis with Lasix. She was also started on her Eliquis. Patient has a history of atrial fibrillation had previous ablation. She was already pursuing outpatient evaluation and considering another ablation but wanted a secondary cardiology evaluation. On the day of transfer she started with some abdominal pain and fever. CT of the abdomen did not reveal any acute findings but there was a questionable pneumonia. Viral panel was negative, urinalysis is negative. She was started on antibiotics empirically treat a pneumonia. On re-evaluation the abdominal pain seemed oscar more pleuritic pain when she took a deep breath. Suspect it may be pleurisy due to developing pneumonia. Echocardiogram was resulted and showed a significant decline in the ejection fraction of 20% with some moderate pulmonary hypertension. Cardiology consultation was obtained. Spoke with a Dr. Huddleston on the phone and reviewed of patient's condition. Based on these new acute findings she willneed cardiac catheterization prior to discharge some point. Due to the fact that she was having issues with rate control, sepsis and infection and decompensated heart failure felt that she was appropriate to be transferred to tertiary care center where she could be seen by specialists at the bedside. Contacted [facility] transfer center spoke with a Dr. Nesbitt who agreed to acceptthe patient in transfer. Updated the patient as well as the patient's son, Kushal as to the plan fortransfer into her current condition. And we will coordinate transfer to [facility] Operations & Procedures: Echocardiogram Complications: none significant Significant Lab and Imaging Results: CT of the abdomen did not show any evidence of diverticulitis or pyelonephritis, diverticulosis was present. WBCs normalized to 9.56, blood cultures pending Results Pending at Discharge: Lab Results Pending at Discharge: BASIC METABOLIC PANEL Routine MAGNESIUM Routine CBC Routine TSH WITH FREE T4 IF INDICATED Add-on CULTURE, BLOOD Routine CULTURE, BLOOD Routine MEDICATION UPDATES AT DISCHARGE CONTINUE taking these medications but follow up with your Primary Care Physician (PCP). INSTRUCTIONS Allopurinol 300 MG Tablet Commonly known as: Zyloprim Take 1 Tablet by mouth in the morning. Ascorbic Acid 1000 MG Tabs Take by mouth . Atenolol 25 MG Tablet Commonly known as: [...] 25 MCG (1000 UT) Capsule Take by mouth . Eliquis 5 MG Tablet Generic drug: Apixaban [...] 11/13/2023 9:45 AM Maggie Melendez DO Cardiology, [facility] 12/10/2023 2:20 PM Lucie Montero DO Family Practice [address] [place] [address] 12/24/2023 2:00 PM [place], Nurse Annual Wellness Visit [address] [facility] [address] [facility] 09/30/2024 2:30 PM Femi Bal DO Otolaryngology [facility] Other Information Indwelling Devices: LINES ALL Duration Peripheral Line Left Hand 22 Gauge 1 day Peripheral Line Right <1 day Vital Signs (last recorded): Most Recent Systolic BP: 115 mmHg (10/21/23 1800) Most Recent Diastolic BP: 70 mmHg (10/21/23 1800) Pulse: 107 (12/27/23 1814) Resp: 23 (10/21/23 181) Most Recent Temperature: 38.44 C (10/21/23 1800) Weight: 111.6 kg (246 lb 0.5 oz) (10/21/23 1154) SpO2: 94 % (10/21/23 181) O2 flow rate: 2 L/MIN (10/21/23 0810) Allergies: Lisinopril, Sudafed [pseudoephedrine], Beta adrenergic blockers, Citalopram, Digoxin, Dulcolax [bisacodyl], Iodinated contrast media, Losartan, Metoprolol, and Sotalol Activity: Out of bed for meals Diet: cardiac diet and fluid restricted Code status (this admission): Full Code Discussion of adv directives occurred with - adult: Patient Does patient have living will: No Does patient have health care power of trial attorney: No Condition on Discharge: critical Isolation status: None Cognition: normal HOSPITAL CONSULTS ORDERED: CARE MANAGEMENT CONSULT IP CARDIOLOGY CONSULT IP REFERRING PHYSICIAN: Ref: [id number]] NO STREET ADDRESS AVAILABLE None (office) None (fax) PRIMARY CARE PROVIDER: PCP: Lucie Montero DO [address] [facility] [address] (office) [phone] (fax) Note: To contact a physician responsible for this patients hospital care, please call mGenerator [phone]. I spent a total of 43 minutes coordinating, documenting, and providing care for this patient excluding time spent in the performance of separately billed services. documented in this encounter Progress Notes * Neo Belcher DO - 10/21/2023 2:15 PM EST Images from the original note were not included. [facility] CCU-/ INTERVAL HISTORY: Patient complaining of some left lower quadrant abdominal pain, feels like it may be gaseous. Palpitations or somewhat improved. Breathing is little bit better. Objective Physical Exam Most Recent Vital Signs: BP: 110 mmHg/71 mmHg (10/21/23 1400) Pulse: 69 (10/21/23 1400) Temp: 38.72 C (10/21/23 1400) Resp: 26 (10/21/23 1400) SpO2: 94 % (10/21/23 1400) Constitutional: (+) ill appearing CV: Irregular irregular rhythm, tachycardic, systolic murmur, Chest: Decreased breath sounds, diffuse rales and crackles throughout Abdomen: soft, normal bowel sounds, tenderness left lower quadrant , no rebound or guarding Extremities: Pretibial edema Neuro: alert, oriented to person, place, and time, generalized weakness Peripheral Line Left Hand 22 Gauge (Active) Number of days: 1 STUDIES: Encounter Orders Labs and other studies reviewed with pertinent findings noted below: Echocardiogram report reviewed, ejection fraction 20%, significant decreased from previous CT of the abdomen and pelvis images reviewed, no obstruction. Per report no definitive diverticulitis or other acute findings WBCs improved to normal range Electrolytes and renal function stable Urinalysis reviewed, no evidence of infection Assessment and Plan IMPRESSION : Principal Problem: Acute on chronic systolic heart failure (HCC) Active Problems: HTN, goal below 140/90 WILL on CPAP Elevated troponin Paroxysmal atrial fibrillation (HCC) Pneumonia Severe sepsis with acute organ dysfunction (HCC) Resolved Problems: * No resolved hospital problems. * DIFFERENTIAL AND PLAN: Patient presented with atrial fibrillation rapid ventricular response and findings consistent with heart failure. Now with fever, concern for possible pneumonia Patient remains extremely ill and requires hospital level care Blood cultures x2 Empirically start Rocephin and Zithromax Patient echocardiogram shows good significant decline in ejection fraction to 20%, consult cardiology Patient reportedly has numerous adverse reactions to beta-blockers and can only tolerate atenolol, does not tolerate CHF approved beta-archie. We will increase atenolol for rate control At short-acting Cardizem for rate control Continue IV diuresis Check TSH PHARMACOLOGIC VTE PROPHYLAXIS: Apixaban Eliquis Tabs CODE STATUS: Full Code EXPECTED DISCHARGE DATE: 10/23/2023 * Sudhir Pak PA-C - 10/21/2023 3:16 AM EST I received a tiger text from nursing at 0254 this morning suggesting patient with heart rate in [id number] while toileting. After having patient situated in bed, heart rate again into the 160s and now persistent. Unfortunately, after accepting the patient to the floor, it appeared as if a heart rate in the 150s was not documented by the emergency room. It was discovered after independent review of an EKG earlier this evening for which her heart rate was 156 and she received 20 mg IV Cardizem. It is important to note that the patient has an allergy to beta-blockers for which she states she can only take atenolol because it is an older medication. All other beta-blockers give her palpitations and chest pain. We have upgraded the patient to the CCU. EKG is pending. In the event that we have to provide an antiarrhythmic, the choice will be Cardizem, followed by digoxin if necessary due to her beta-archie allergies. We will need to contact [facility] in the morning for additional recommendations and potential transfer. As noted above, she is scheduled for an atrial ablation within the next 30 days. Associated attestation - Neo Belcher DO - 10/21/2023 7:32 AM EST I have reviewed the advanced practitioner documentation and agree. I saw and evaluated the patient on date of service referenced in note and have performed the following medically appropriate historyand/or exam: See progress note from today for additional documentation. documented in this encounter H&P Notes * Sudhir Pak PA-C - 10/20/2023 10:49 PM EST Images from the original note were not included. [facility] [id number] PRESENTING PROBLEM: Shortness of breath with heart palpitations and lower extremity edema HPI: Patient is a 67-year-old female with significant past medical history of atrial fibrillation statuspost atrial ablation and currently on Eliquis, HFmrEF, hypertension, obstructive sleep apnea on CPAP, iron deficiency anemia and history of GI hemorrhage. She presents to our facility with complaintsshortness of breath with heart palpitations and bilateral lower extremity edema. Patient presents as described above. She tells me she does have history of heart failure and paroxysmal atrial fibrillation on Eliquis. She states that she follows with [facility] for which she had an ablation many years ago. She has not had any difficulty with atrial fibrillation or heart palpitations until the last few months. She states that she does follow with Cardiology regular and takes Bumex for her heart failure. She states that she did have a cardiac echo earlier this yearfor which she was told her ejection fraction was 47%. At that time, her boiler house mechanic recommended she discontinue her Bumex for which she did, for a short period of time. Unfortunately, she started tobecome symptomatic with lower extremity swelling and increased shortness of breath. Palpitations once again began to start. Her boiler house mechanic then placed her back on Bumex, however, her symptoms have continued. Patient denies any chest pain whatsoever. Patient reports that if she ambulates, transitions or bends over, she becomes short of breath. She states over the last few days the swelling in her legs has worsened a little bit. She presented to a local urgent care center earlier today for her symptoms, and because of a chest x-ray suggesting heart failure with pulmonary edema, she was referred to the emergency room for further evaluation and treatment. Upon arrival here, she was noted to be in sinus tachycardia at 153 beats per minute with PACs and PVCs. This was read by the ED provider as possible atrial fibrillation with RVR for which she was given Cardizem 20 mg IV which controlled her rate and placed her back into sinus. She also received 60 mg of IV Lasix in the emergency room. Because of her presentation, she was referred to our service for further evaluation and treatment. Subsequent workup at our facility included a chest x-ray revealing mildly enlarged cardiac silhouette which is new since previous chest x-ray. There was cardiomegaly and CHF or a pericardial effusionnoted. There is mild pulmonary edema and trace bilateral pleural effusions. Routine labs included aBNP which was 4500. Initial high sensitivity troponin was 38 with a follow-up of 41. Potassium was noted to be 3.6. Glucose was mildly elevated at 122 in a nondiabetic. Leukocytosis is present at 12.23. HPZW-EBRBF-0 is negative. RVP is negative. EKG suggested sinus tachycardia at 153 beats per minute with PACs and PVCs. There is a nonspecific intraventricular conduction block and nonspecific T-wave abnormality noted. Vital signs reveal an afebrile patient 37.8 C. Heart rate has fluctuated from 76-153 and is currently 76 beats per minute and regular. Respirations have fluctuated from 1832 and are currently 23 saturating 97% on room air. Blood pressure is 136/97. Patient tells me at the bedside that she has not started taking her Eliquis. She reports that her boiler house mechanic placed her on this some time ago as he was planning on doing another ablation in about 1month. She notes that she has a 2nd opinion appointment with Thomas hayes prior to this procedure. 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 HTN, goal to be determined Osteoarthrosis, unspecified whether generalized or localized, lower leg Other chronic sinusitis PAF (paroxysmal atrial fibrillation) (HCC) Pure hypercholesterolemia Sleep apnea Systolic CHF (HCC) Past Surgical History: Procedure Laterality Date DELIVERY COLONOSCOPY, DIAGNOSTIC (RECTUM) N/A 06/24/2016 hyperplastic polyp/recall 5 years/COLONOSCOPY FLEXIBLE PROXIMAL DIAGNOSTIC performed by Eden Foreman DO at ENDOSCOPY [facility] CREATE EARDRUM OPENING,LOCAL ANESTH Tympanostomy tubes; cholesteotoma repair EGD, FLEXIBLE, DIAGNOSTIC N/A 06/10/2016 normal/ESOPHAGOGASTRODUODENOSCOPY (EGD), FLEXIBLE, TRANSORAL, DIAGNOSTIC performed by Eden Foreman DO at ENDOSCOPY [facility] EXPLORATION OF ABDOMEN N/A 07/24/2016 EXPLORATORY LAPAROTOMY performed by Eden Hassan DO at OR [facility] PARTIAL REMOVAL OF THYROID LOBE had a lump at age 15-16- assumes it was benign REMOVAL OF SMALL INTESTINE W/FUSION N/A 07/24/2016 ENTERECTOMY SMALL BOWEL RESECTION performed by Eden Hassan DO at OR [facility] REMOVE TONSILS & ADENOIDS, UNDER 12 T & A, age<12 REPAIR OF NASAL SEPTUM ? 2001 Nasal Septum Repair - Dr. Hernández REVISE MIDDLE EAR & MASTOID 12/16/2011 TYMPANOPLASTY MASTOIDECTOMY WITHOUT OSSICULAR RECONSTRUCTION performed by SEA MCCARTY at OR [facility] Family History Problem Relation Age of Onset Heart Disorder Mother pacer Hypertension Mother Heart Disorder Father DE Heart Disorder Brother A.fib Mental Disorder Daughter depression Mental Disorder Daughter depression Mental Disorder Daughter depression Heart Disorder Son Social History Tobacco Use Smoking status: Never Passive exposure: Past Smokeless tobacco: Never Tobacco comments: no passive smoke exposures Vaping Use Vaping Use: Never used Substance Use Topics Alcohol use: Not Currently Comment: rarely Drug use: Never Review of patient's allergies indicates: Allergen Reactions Lisinopril Edema face/lips/tongue Sudafed [Pseudoephedrine] Tachycardia Causes afib and led to admit to hospital Beta Adrenergic Blockers Other (Please comment) Made heart worse Citalopram Unknown Digoxin Psych complications aggitated Other reaction(s): ineffective, Palpitations, psychologically caused depression caused depression Dulcolax [Bisacodyl] Triggered an episode of afib Iodinated Contrast Media Rash Iodine Rash Losartan Metoprolol (toprol) Per pt., made heart "pound" Sotalol MEDICATIONS Eliquis 5 MG Oral Tablet Take 1 Tablet by mouth in the morning and 1 Tablet before bedtime. Patient, History Per Needs Review Patient not taking: Reported on 10/08/2023 Zinc 50 MG Oral Tablet Take 1 Tablet by mouth daily. Patient, History Per Needs Review Atenolol 25 MG Oral Tablet (Tenormin) Take 0.5-1 Tablets by mouth in the morning. Patient, History Per Needs Review Montelukast Sodium 10 MG Oral Tablet (Singulair) TAKE 1 TABLET BY MOUTH EVERY DAY IN THE MORNING Jenny Pressley MD Needs Review Patient not taking: Reported on 10/08/2023 HYDROcodone-Acetaminophen 7.5-325 MG Oral Tablet Take 1 Tablet by mouth every 8 hours as needed forPain, Breakthrough or Pain, Severe. Jenny Pressley MD Needs Review hydroCHLOROthiazide 12.5 MG Oral Capsule (Hydrodiuril) Take 1 Capsule by mouth in the morning. Jenny Pressley MD Needs Review Patient not taking: Reported on 09/29/2023 Allopurinol 300 MG Oral Tablet (Zyloprim) Take 1 Tablet by mouth in the morning. Jenny Pressley MD Needs Review Patient not taking: Reported on 09/29/2023 Bumetanide 1 MG Oral Tablet (Bumex) TAKE 1 TAB BY MOUTH IN THE MORNING. TAKE ONE EXTRA TAB DAILY ASNEEDED FOR WEIGHT GAIN DIRECTED Jenny Pressley MD Needs Review Potassium Chloride Jihan ER 10 MEQ Oral Tablet Extended Release (Klor-Con M10) TAKE 2 TABLETS BY MOUTH EVERY DAY Jenny Pressley MD Needs Review Patient taking differently: Take 2 Tablets by mouth daily at noon. TAKE 2 TABLETS BY MOUTH EVERY DAY Baclofen 10 MG Oral Tablet (Lioresal) TAKE 1 TAB BY MOUTH 2 TIMES A DAY NEEDED FOR CRAMPING OR MUSCLE SPASMS. Jenny Pressley MD Needs Review Ascorbic Acid 1000 MG Oral Tablet Take by mouth . Patient, History Per Needs Review Cholecalciferol 25 MCG (1000 UT) Oral Capsule Take by mouth . Patient, History Per Needs Review Multivitamin Adult Extra C Oral Tablet Chewable Take by mouth . Patient, History Per Needs Review Patient's past history, medications, and allergies were reviewed. Review of Systems Constitutional: Negative. HENT: Negative. Eyes: Negative. Respiratory: Positive for shortness of breath. Cardiovascular: Positive for palpitations and leg swelling. Gastrointestinal: Negative. Endocrine: Negative. Genitourinary: Negative. Musculoskeletal: Negative. Skin: Negative. Allergic/Immunologic: Negative. Neurological: Negative. Hematological: Negative. Psychiatric/Behavioral: Negative. All other systems reviewed and are negative. Objective Physical Exam Most Recent Vital Signs: BP: 134 mmHg/80 mmHg (10/20/232309) Pulse: 88 (10/20/232309) Temp: 37.72 C (10/20/232309) Resp: 18 (10/20/232309) SpO2: 96 % (10/20/232309) Physical Exam Vitals and nursing note reviewed. Constitutional: Appearance: She is obese. HENT: Head: Normocephalic and atraumatic. Mouth/Throat: Mouth: Mucous membranes are moist. Pharynx: Oropharynx is clear. Eyes: Extraocular Movements: Extraocular movements intact. Pupils: Pupils are equal, round, and reactive to light. Neck: Vascular: JVD present. Cardiovascular: Rate and Rhythm: Normal rate and regular rhythm. Pulses: Normal pulses. Heart sounds: Normal heart sounds. Pulmonary: Effort: Pulmonary effort is normal. Breath sounds: Examination of the right-upper field reveals decreased breath sounds. Examination ofthe left-upper field reveals decreased breath sounds. Examination of the right-middle field revealsdecreased breath sounds. Examination of the left-middle field reveals decreased breath sounds. [place] of the right-lower field reveals decreased breath sounds and rhonchi. Examination of the left-lower field reveals decreased breath sounds and rhonchi. Decreased breath sounds and rhonchi present. Abdominal: General: Bowel sounds are normal. Palpations: Abdomen is soft. Musculoskeletal: Cervical back: Normal range of motion and neck supple. Right lower leg: Edema present. Left lower leg: Edema present. Comments: 2+ bilateral lower extremity nonpitting edema Skin: General: Skin is warm and dry. Capillary Refill: Capillary refill takes less than 2 seconds. Neurological: General: No focal deficit present. Mental Status: She is alert and oriented to person, place, and time. Psychiatric: Mood and Affect: Mood normal. Behavior: Behavior normal. Peripheral Line Left Hand 22 Gauge (Active) Number of days: 1 STUDIES: Encounter Orders Labs and other studies reviewed with pertinent findings noted below: Troponin T, High Sensitivity [[id number]] (Abnormal) Collected: 10/20/231905 Updated: 10/20/231938 Specimen Source: Blood, Venous Troponin T, High Sensitivity 41 High ng/L Respiratory Pathogen Panel, PCR [[id number]] (Normal) Collected: 10/20/231751 Updated: 10/20/231913 Specimen Type: Upper Respiratory Specimen Source: Nasal Turbinate Adenovirus by PCR Negative Coronavirus 229E by PCR Negative Coronavirus HKU1 by PCR Negative Coronavirus NL63 by PCR Negative Coronavirus OC43 by PCR Negative Coronavirus SARS-CoV-2 by PCR Negative Human Metapneumovirus by PCR Negative Rhinovirus/Enterovirus by PCR Negative Influenza A Virus by PCR Negative Influenza B Virus by PCR Negative Parainfluenza Virus 1 by PCR Negative Parainfluenza Virus 2 by PCR Negative Parainfluenza Virus 3 by PCR Negative Parainfluenza Virus 4 by PCR Negative Respiratory Syncytial Virus by PCR Negative Bordetella pertussis by PCR Negative Chlamydia pneumoniae by PCR Negative Mycoplasma pneumoniae by PCR Negative Bordetella parapertussis by PCR Negative BNP, NT-PRO [[id number]] (Abnormal) Collected: 10/20/23 1711 Updated: 10/20/23 174 Specimen Source: Blood, Venous BNP, NT-Pro 4,473 High pg/mL Narrative: Exclude Heart Failure: <300 pg/mL Diagnose Heart Failure: Age <50 yr: >450 pg/mL 50-75 yr: >900 pg/mL >75 yr: >1800 pg/mL GFR is 30-59 mL/min: >1200 pg/mL or Age-adjusted values GFR <30 mL/min: do not use, not reliable Prognostic threshold: 1000 pg/mL Troponin T, High Sensitivity [[id number]] (Abnormal) Collected: 10/20/231710 Updated: 10/20/231745 Specimen Source: Blood, Venous Troponin T, High Sensitivity 38 High ng/L Basic Metabolic Panel [[id number]] (Abnormal) Collected: 10/20/231710 Updated: 10/20/231742 Specimen Source: Blood, Venous BUN 16 mg/dL Creatinine 0.7 mg/dL Estimated Glomerular Filtration Rate >90 mL/min Sodium 139 mmol/L Potassium 3.6 mmol/L Chloride 99 mmol/L CO2 24 mmol/L Anion Gap 16 High mmol/L Glucose 122 High mg/dL Calcium 9.5 mg/dL CBC with WBC Differential [[id number]] (Abnormal) Collected: 10/20/231710 Updated: 10/20/231722 Specimen Source: Blood, Venous Narrative: The following orders were created for panel order CBC WITH WBC DIFFERENTIAL. Procedure Abnormality Status --------- ------ CBC[[id number]] Abnormal Final result DIFFERENTIAL, AUTOMATED[[id number]] Abnormal Final result Please view results for these tests on the individual orders. CBC [[id number]] (Abnormal) Collected: 10/20/231710 Updated: 10/20/231722 Specimen Source: Blood, Venous WBC 12.23 High K/uL RBC 4.79 M/uL HGB 14.5 g/dL HCT 43.3 % MCV 90.4 fL MCH 30.3 pg MCHC 33.5 g/dL RDW 14.0 % PLT 236 K/uL MPV 10.2 fL Differential, Automated [[id number]] (Abnormal) Collected: 10/20/231710 Updated: 10/20/231722 Specimen Source: Blood, Venous WBC 12.23 High K/uL Neutrophils % 77.2 High % Lymphocytes % 11.7 Low % Monocytes % 9.8 % Eosinophils % 1.1 % Basophils % 0.2 % Absolute Neutrophils 9.44 High K/uL Absolute Lymphocytes 1.43 K/ul Absolute Monocytes 1.20 High K/uL Absolute Eosinophils 0.13 K/uL Absolute Basophils 0.03 K/uL Radiology Reports (Last 300 days) 10/20/23 1424 XR CHEST 2 VIEWS Final result Details Impression: IMPRESSION 1. Mildly enlarged cardiac silhouette, new since the prior chest x-ray. The differential diagnosis includes cardiomegaly secondary to congestive heart failure or pericardial effusion. Please correlate clinically. 2. Mild pulmonary edema. Probable trace bilateral pleural effusions. Assessment and Plan IMPRESSION: Principal Problem: Acute on chronic congestive heart failure (HCC) Active Problems: Paroxysmal atrial fibrillation (HCC) Elevated troponin HTN, goal below 140/90 Hyperglycemia Leukocytosis WILL on CPAP Resolved Problems: * No resolved hospital problems. * DIFFERENTIAL AND PLAN: Admit to observation, telemetry Acute on chronic, mildly decompensated HFmrEF -as per HPI -BNP 4500 -troponin 38 with follow-up of 41 -patient takes Bumex, however, has not seem to help recently -patient received 60 mg IV Lasix in the emergency room -continue IV Lasix 40 mg twice daily -heart failure quality measures -strict I&Os -daily weights -monitor electrolytes -consider cardiology consult -cardiac echo in the morning to guide therapy Paroxysmal atrial fibrillation -as per HPI -appears to be happening more frequently since adjustments of her Bumex -patient reports she has an appointment for atrial ablation at [facility] in approximately 1 month. Corporate Travel Expert started her on Eliquis, however, she has not started. -start Eliquis 5 mg p.o. twice daily -allergies to beta-blockers except for atenolol, for which we will continue 12.5 mg p.o. daily -monitor electrolytes Elevated troponin in the setting of hypertension -EKG as noted above -denies chest pain -initial high sensitivity troponin 38 with a follow-up of 41 -cardiac echo for the morning -p.r.n. EKG -monitor electrolytes -likely type 2 due to paroxysmal atrial fibrillation and mild decompensated HFmrEF -consider cardiology consult Hyperglycemia -nondiabetic patient -HGB A1c for the morning Leukocytosis -unclear etiology -patient afebrile -UA pending -CXR w/o signs of infection or consolidation CHRONIC PROBLEMS Paroxysmal atrial fibrillation status post ablation HFmrEF OHypertension WILL on CPAP Iron-deficiency anemia All other pre-hospital problems at baseline. Diet: Heart healthy GI prophylaxis: Omeprazole DVT/PE prophylaxis: Continue Eliquis Code status: Full code Patient was seen and evaluated bedside. Plan of care established in collaboration with Dr. Belcher. I attest that I spent 84 minutes on the care.ind, disposition and independent review of imaging, EKG and deep chart review of previous admissions and outpatient provider appointments for this patientfor the purposes of documented past medical history and review of medications PHARMACOLOGIC VTE PROPHYLAXIS: Eliquis Tabs CODE STATUS: Full Code EXPECTED DISCHARGE DATE: No information available Associated attestation - Neo Belcher DO - 10/21/2023 7:32 AM EST I have reviewed the advanced practitioner documentation and agree. I saw and evaluated the patient on date of service referenced in note and have performed the following medically appropriate historyand/or exam: See progress note from today for additional documentation. documented in this encounter Consult Notes * Gonzales Huddleston, - 10/21/2023 5:08 PM EST Cardiology Consultation Note HPI : The patient Ramona Stringer is a 67 year old female who presented to the hospital yesterday evening with chief complaint of shortness of breath lower extremity edema and heart palpitations. She was referred to the emergency department by the local urgent care center because of the pulmonary edema noted on a chest x-ray. The ED saw that she was in atrial fibrillation with rapid ventricular response via telemetry. She was found to have paroxysms of atrial fibrillation/flutter. She endorsed symptoms leading back to March and has been having increasing palpitations and frequency and intensity. An echocardiogram was completed today which showed an LVEF 20-25%. The left ventricle appeared severely dilated with mild RV dilation and severe left atrial and mild right atrial enlargement. There was global wall motion abnormalities noted. There were no prior documents indicating an ischemicworkup. She has had a transthoracic echocardiogram completed in 2014 which revealed an LVEF of approximately 45%. She has had a prior ablation in the past and was scheduled in approximately 1 month at [facility] for repeat atrial fibrillation/PVI ablation. [facility] to [facility] with her [facility]. Troponins are marginally elevated yet flat and do not follow an ACS pattern. Her NT pro BNP was elevated. There wasa mild leukocytosis. Respiratory viral panels were negative. Chest x-ray indeed shows evidence of an enlarged cardiac silhouette in addition to pulmonary edema. Today the patient spiked a fever of 101 F. it is uncertain the etiology and source. She is currently being treated for an empiric pneumonia. She was started on Zithromax and Rocephin. She is being rate controlled with atenolol and diltia zem. She is currently being diuresed with Lasix 40 mg IV twice daily. A cardiology consultation wasrequested, however due to technical difficulties I was unable to log into the system. I discussed with the attending physician my recommendations which are listed at the bottom of this report. No all information obtained was from the electronic medical record and her primary attending physician at [facility]. 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 SENSORY HEARING LOSS, UNILATERAL,RIGHT H90.5 Chronic mastoiditis H70.10 Deviated nasal septum J34.2 Hypertrophy of nasal turbinates J34.3 TEMPOROMANDIBULAR JOINT DISORDERS, UNSPECIFIED M26.609 Malocclusion M26.4 Paroxysmal atrial fibrillation (HCC) I48.0 HTN, goal below 140/90 I10 Acute on chronic systolic heart failure (HCC) I50.23 Atrial fibrillation with rapid ventricular response (HCC) I48.91 WILL on CPAP G47.33 Iron deficiency anemia due to chronic blood loss D50.0 Gastrointestinal hemorrhage K92.2 Difficult intubation T88.4XXA Controlled substance agreement signed Z79.899 Hypertensive heart disease with chronic systolic congestive heart failure (HCC) I11.0, I50.22 Multiple thyroid nodules E04.2 History of diffuse large B-cell lymphoma Z85.72 Status post ablation of atrial fibrillation Z98.890, Z86.79 Status post right knee replacement Z96.651 Chronic allergic rhinitis J30.9 Rotator cuff syndrome of left shoulder M75.102 Diverticulitis of colon K57.32 Gout of big toe M10.9 Body mass index (BMI) of 40.0 to 44.9 in adult (HCC) Z68.41 Elevated troponin R79.89 Paroxysmal atrial fibrillation (HCC) I48.0 Pneumonia J18.9 Severe sepsis with acute organ dysfunction (HCC) A41.9, R65.20 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 HTN, goal to be determined Osteoarthrosis, unspecified whether generalized or localized, lower leg Other chronic sinusitis PAF (paroxysmal atrial fibrillation) (HCC) Pure hypercholesterolemia Sleep apnea Systolic CHF (HCC) Past Surgical History: Procedure Laterality Date DELIVERY COLONOSCOPY, DIAGNOSTIC (RECTUM) N/A 06/24/2016 hyperplastic polyp/recall 5 years/COLONOSCOPY FLEXIBLE PROXIMAL DIAGNOSTIC performed by Eden Foreman DO at ENDOSCOPY [facility] CREATE EARDRUM OPENING,LOCAL ANESTH Tympanostomy tubes; cholesteotoma repair EGD, FLEXIBLE, DIAGNOSTIC N/A 06/10/2016 normal/ESOPHAGOGASTRODUODENOSCOPY (EGD), FLEXIBLE, TRANSORAL, DIAGNOSTIC performed by Eden Foreman DO at ENDOSCOPY [facility] EXPLORATION OF ABDOMEN N/A 07/24/2016 EXPLORATORY LAPAROTOMY performed by Eden Hassan DO at OR [facility] PARTIAL REMOVAL OF THYROID LOBE had a lump at age 15-16- assumes it was benign REMOVAL OF SMALL INTESTINE W/FUSION N/A 07/24/2016 ENTERECTOMY SMALL BOWEL RESECTION performed by Eden Hassan DO at OR [facility] REMOVE TONSILS & ADENOIDS, UNDER 12 T & A, age<12 REPAIR OF NASAL SEPTUM ? 2001 Nasal Septum Repair - Dr. Hernández REVISE MIDDLE EAR & MASTOID 12/16/2011 TYMPANOPLASTY MASTOIDECTOMY WITHOUT OSSICULAR RECONSTRUCTION performed by SEA MCCARTY at OR [facility] Review of patient's allergies indicates: Allergen Reactions Lisinopril Edema face/lips/tongue Sudafed [Pseudoephedrine] Tachycardia Causes afib and led to admit to hospital Beta Adrenergic Blockers Other (Please comment) Made heart worse Citalopram Unknown Digoxin Psych complications aggitated Other reaction(s): ineffective, Palpitations, psychologically caused depression caused depression Dulcolax [Bisacodyl] Triggered an episode of afib Iodinated Contrast Media Rash Losartan Metoprolol (toprol) Per pt., made heart "pound" Sotalol Family History Problem Relation Age of Onset Heart Disorder Mother pacer Hypertension Mother Heart Disorder Father [place] Heart Disorder Brother A.fib Mental Disorder Daughter depression Mental Disorder Daughter depression Mental Disorder Daughter depression Heart Disorder Son Family Status Relation Status Mo at age 82 Heart Fa at age 79 Heart Sis Alive Bro Alive Bro Alive Bro Alive Bro Alive Bro (Not Specified) Kaylen Alive Kaylen Alive Kaylen Alive Son (Not Specified) Son Alive Son Alive Social History Socioeconomic History Marital status: Spouse name: Not on file Number of children: 6 Years of education: Not on file Highest education level: Not on file Occupational History Not on file Tobacco Use Smoking status: Never Passive exposure: Past Smokeless tobacco: Never Tobacco comments: no passive smoke exposures Vaping Use Vaping Use: Never used Substance and Sexual Activity Alcohol use: Not Currently Comment: rarely Drug use: Never Sexual activity: Not on file Other Topics Concern Not on file Social History Narrative [employer] INFORMATION ENVIRONMENTAL HISTORY: Type of Home: Two Story Type of Heating System: Oil and Hot water: baseboard Air Conditioning: Yes Master bedroom and Living room Basement: Unfinished and Dampness Home have cockroaches: No Irritants in the home: Scented Candles Patient's bedroom location: Floor: first Type of petey: Hardwood Beds: Number: 1 Type of beds: Mattress and Box spring Pillows: Number: 3 Type of pillows: Synthetic (hypoallergenic, polyester) Bedroom contains: Minimal items Pets: 1 cat(s) Lives on a farm: No Does not work outside of home. Entered by: Lulu Krishna MD 03/13/2006 Social Determinants of Health Financial Resource Strain: Not on file Food Insecurity: No Food Insecurity (10/08/2023) Hunger Vital Sign Worried About Running Out of Food in the Last Year: Never true Ran Out of Food in the Last Year: Never true Transportation Needs: Not on file Physical Activity: Not on file Stress: Not on file Social Connections: Not on file Intimate Partner Violence: Not on file Housing Stability: Not on file Plan: Given the echocardiographic findings, the patient would benefit from an ischemic workup with an invasive coronary angiogram to rule out obstructive coronary disease such as multivessel CAD. If no occlusive coronary disease is detected then she would benefit from a cardiac MRI for further evaluationof her dilated cardiomyopathy. Ideally, she would require goal-directed medical therapy which would include Aldactone, Entresto, agoal-directed medical therapy beta archie such as Toprol- XL, Coreg, or bisoprolol, and an SGLT2 inhibitor. Unfortunately the patient has metoprolol listed as an allergy in addition to lisinopril which appears to cause angioedema like symptoms in the past which would be a contraindication for the use of sacubitril/valsartan. I agree with continued IV diuresis. Maintain O2 saturations greater than92% with supplemental oxygen if needed. With regards to her atrial fibrillation given the paroxysmal nature, it would be beneficial to keepher on therapeutic anticoagulation in addition to a beta archie such as metoprolol for rate control. She has an allergy to digoxin. Unfortunately diltiazem is not recommended given her heart failurewith reduced ejection fraction. We can consider amiodarone instead if the patient is adverse to attempting metoprolol again. Continue to monitor via telemetry. I would recommend thyroid function testing as well as urine drug screen for completeness sake. Given the fever of unknown origin prior to consideration of invasive coronary angiography, I would wait for defervesced since 2 occur and after 48 hours we can consider proceeding with an invasive coronary angiogram. Blood cultures have been obtained and are pending. I would recommend transfer to [facility] under the medicine service for further workup with regards to her potential infectious etiology and fever of unknown origin with a Cardiology consultation to help manage her heart failure with reduced ejection fraction and further consideration for invasive coronary angiography prior to discharge. Gonzales Huddleston DO CCU [facility], Critical Care Unit, [facility] 2nd Floor [address] [address] documented in this encounter Nursing Notes * Alicia Euceda RN - 10/21/2023 7:33 PM EST Alerted Julia of departure. Aware did not yet start doxycycline. Did not have toradil that was scheduled as once for 190. * Alicia Euceda RN - 10/21/2023 7:27 PM EST Left with ems ar 1914. Walked to bathroom and then assisted onto litter. Pt reports pain is less since medication. Oxygen maintained at 2 litters though sao2 has been good all day unless dozing without bipap and then noted decrease to 88% * Alicia Euceda RN - 10/21/2023 6:56 PM EST Hand-Off - Nurse Communication Note Name: Ramona Stringer Location: [address] Date: 10/21/2023 Time: 6:57 PM Nurse giving report: Alicia Euceda RN Nurse receiving report: Julia Reason for SBAR handoff: Transfer Immediate Concerns: consults not completed: Possible cardiac cath SITUATION: Admission date: 10/20/2023 Chief Complaint: Short of Breath (Since March) Admitting diagnosis: Acute on chronic congestive heart failure (HCC) Patient Service: Hospitalists [[id number]] Level of Care: Critical Care (ICU/CCU/PICU) [1] Attending Provider: Noe Belcher DO Coming From:hospital: [facility] BACKGROUND: Primary Care Physician: Lucie Montero DO 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 HTN, goal to be determined Osteoarthrosis, unspecified whether generalized or localized, lower leg Other chronic sinusitis PAF (paroxysmal atrial fibrillation) (HCC) Pure hypercholesterolemia Sleep apnea Systolic CHF (HCC) Patient Compliant: Yes Code Status: Full Code Discussion of adv directives occurred with - adult: Patient Does patient have living will: No Does patient have health care power of trial attorney: No Allergies: Lisinopril, Sudafed [pseudoephedrine], Beta adrenergic blockers, Citalopram, Digoxin, Dulcolax [bisacodyl], Iodinated contrast media, Losartan, Metoprolol, and Sotalol Problem list: Principal Problem: Acute on chronic systolic heart failure (HCC) Active Problems: HTN, goal below 140/90 Atrial fibrillation with rapid ventricular response (HCC) WILL on CPAP Elevated troponin Paroxysmal atrial fibrillation (HCC) Pneumonia Severe sepsis with acute organ dysfunction (HCC) Fever of unknown origin Resolved Problems: * No resolved hospital problems. * Activity: ambulatory Fall Risk or Safety Concerns: Has patient fallen this encounter? No Isolation: None Isolation flowsheet: ASSESSMENT: Vital Signs: BP: 115/70 (10/21/231799) Temp: (!) 38.4 C (101.2 F) (10/21/231799) Pulse: 107 (10/21/231813) Resp: 23 (10/21/231813) SpO2: 94 % (10/21/231813) Weight: 111.6 kg (246 lb 0.5 oz) (10/21/231153) Height: 167.6 cm (5' 6") (10/21/231153) Pain Assessment Flowsheet Row Most Recent Value Pain Assessment Scale [facility] Scale 0-10 Pain Score 3 (mild pain) Fall Scale: Fall Score: 35 (10/21/23726) Fall Interventions: Bed at low level;Bed alarm on;Fall risk sign outside room;Yellow armband applied/intact and on patient;Floor free of clutter;Non-skid foot covering on;Walk path free of obstacles (10/21/23726) Neurological: Neuro WNL: WNL - within normal limits (10/21/23899) [place] Coma Scale Eyes Open: Spontaneous (10/21/23726) Best Verbal Response: Verbally appropriate for age (10/21/23726) Best Motor Response: Obeys commands appropriate for age (10/21/23726) Coma Score: 15 (10/21/23726) Additional Neurological Information: U Respiratory: Respiratory WNL: X - Exceptions to WNL as documented below (10/21/23899) Cough: None (10/21/23319) Depth/Rhythm: Regular (10/20/232309) Dyspnea Occurance: Lying Flat (10/20/232309) Effort: Unlabored (10/20/232309) O2 flow rate: 2 L/MIN (10/21/23 0810) Additional Respiratory Information: Uses bipap when sleeping often when at home even with naps; Cardiac: Cardiovascular WNL: X - Exceptions to WNL as documented below (10/21/23319) Heart Sounds: S1;S2 (10/20/232309) Rhythm: Irregular;AFib (10/21/23899) Extremities: +Sensation;Right;Left;Upper;Lower (12/26/23 2310) Pulses Right: Dorsalis Pedis + (10/21/23 0320) Pulses Left: Dorsalis Pedis + (10/21/23 0320) Edema: Yes (10/21/23899) Edema Location: Both; Lower extremities (10/21/23899) Edema Assessment: +2 - Description (10/21/23899) Capillary Refill: 2 sec (10/20/232309) Additional Cardiac Information: Cardizem started since admission. Tenormin increased. NSR most of the day past hour with fever noting SVT to 140 intermittently. GI/: GI WNL: X - Exceptions to WNL as documented below (10/21/23899) Abdomen: Soft;Tender (10/21/23899) Bowel Sounds: Present;All Quadrants (10/21/23899) WNL: WNL - within normal limits (10/21/23899) Additional GI/ Information: Prune juice this evening. No bm today Integumentary: Integumentary WNL: WNL - within normal limits (10/21/23899) Dangelo Score (auto-calculation): 21 (10/21/23 0100) Skin Breakdown (including Red, Non-Blanchable Areas) Present on Admission?: No (10/21/23 0156) Additional Integumentary Information: Bruising from venipunctures Restraints: No orders of the defined types were placed in this encounter. Medications: See MAR Lines: Peripheral Line Left Hand 22 Gauge (Active) Status Capped/Locked;Alcohol disinfectant cap 10/21/23 1600 Tubing Changed N/A 10/21/23799 Phlebitis Scale 0 10/21/23799 Infiltration Scale 0 10/21/23799 Site Description (Other) Without redness, swelling or drainage 10/21/23799 Site Intervention None required 10/21/23799 Dressing Assessment Dressing clean, dry, and intact 10/21/23799 Dressing Intervention None required 10/21/23799 Number of days: 1 Peripheral Line Right (Active) Status Capped/Locked;Flushes easily;Alcohol disinfectant cap 10/21/23 1600 Number of days: 0 Treatment: Lasix , rocephine, oxi and tylenol. Labs: Labs This Encounter BASIC METABOLIC PANEL - Abnormal; Notable for the following components: Result Value Ref Range Anion Gap 16 7 - 15 mmol/L Glucose 122 70 - 120 mg/dL All other components within normal limits TROPONIN T, HIGH SENSITIVITY - Abnormal; Notable for the following components: Troponin T, High Sensitivity 38 <=14 ng/L All other components within normal limits BNP, NT-PRO - Abnormal; Notable for the following components: BNP, NT-Pro 4,473 <300 pg/mL All other components within normal limits Narrative: Exclude Heart Failure: <300 pg/mL Diagnose Heart Failure: Age <50 yr: >450 pg/mL 50-75 yr: >900 pg/mL >75 yr: >1800 pg/mL GFR is 30-59 mL/min: >1200 pg/mL or Age-adjusted values GFR <30 mL/min: do not use, not reliable Prognostic threshold: 1000 pg/mL CBC - Abnormal; Notable for the following components: WBC 12.23 4.00 - 10.80 K/uL All other components within normal limits DIFFERENTIAL, AUTOMATED - Abnormal; Notable for the following components: WBC 12.23 4.00 - 10.80 K/uL Neutrophils % 77.2 40.0 - 75.0 % Lymphocytes % 11.7 18.0 - 42.0 % Absolute Neutrophils 9.44 1.80 - 7.70 K/uL Absolute Monocytes 1.20 0.00 - 1.10 K/uL All other components within normal limits TROPONIN T, HIGH SENSITIVITY - Abnormal; Notable for the following components: Troponin T, High Sensitivity 41 <=14 ng/L All other components within normal limits RESPIRATORY PATHOGEN PANEL, PCR - Normal MAGNESIUM - Normal PHOSPHORUS - Normal CBC WITH WBC DIFFERENTIAL Narrative: The following orders were created for panel order CBC WITH WBC DIFFERENTIAL. Procedure Abnormality Status --------- ------ CBC[[id number]] Abnormal Final result DIFFERENTIAL, AUTOMATED[[id number]] Abnormal Final result Please view results for these tests on the individual orders. Diet: Orders Placed This Encounter Procedures Heart Healthy Diet : Sodium: 2 gm --- Fluid Restriction (ml): 1500 Additional Diet Information: Ate full meal at dinner. Intake and Output: Intake/Output Summary (Last 24 hours) at 10/21/2023 0117 Last data filed at 10/21/2023 1700 Gross per 24 hour Intake 1190 ml Output 1950 ml Net -760 ml Patient Belongings and Home Medications Patient Belongings at Bedside Belongings at Bedside: Clothing;Other valuables (10/21/23155) Clothing: Pants;Shirt;Footwear;Socks;Underpants (10/21/23155) Other Valuables: Wallet;Purse;[place] (10/21/23155) Patient Belongings Sent Home (Does not apply to Ambulatory areas) Belongings Sent Home: Electronic devices (10/21/23155) Patient Electronics: Cell phone (blower feeder dyed raw stock) (10/21/23155) Patient Belongings Sent to Safe/Locker Belongings Sent to Safe: None (10/21/23155) Patient Medications Medications Brought by Patient?: No (10/21/23155) RECOMMENDATIONS: Consults not completed: Cardiology further intervention. Anticipated tests/studies/procedures: unsure Medication Reconcilliation completed for this Transfer? No * Alicia Euceda RN - 10/21/2023 6:[address] Belcher in to see pt spoke with her about transfer to [place]. Aware of fever and intermittent arrhythmias Rate to 130s from 80s and back down again. Plan repeat oxi and tylenol Pain with exam of provider. Left lower lateral ribs to touch. * Alicia Euceda RN - 10/21/2023 1:17 PM EST TT to Dr Belcher re fever and continued pain LLQ despite medication. Worse with movement. * Alicia Euceda RN - 10/21/2023 1:10 PM EST Settled into recliner up[on return from radiology. Aspercreme applied to left shoulder. Pain left LLQ worse with movement. * Alicia Euceda RN - 10/21/2023 12:56 PM EST Pt to radiology, pain with movement. LLQ. Pt complaints of feeling chilled. Temp checked noted elevation. * Alicia Euceda RN - 10/21/2023 12:08 PM EST Provider alerted to pain lower abd, primarily LLQ at present, also complaint of left shoulder pain * Alicia Euceda RN - 10/21/2023 11:26 AM EST Pt reports does not have a shell fish allergy, eats shrimp routinely at the [facility]. Call placed to food services and allergies discussed. Is allergic to IV contrast. Not shell fish. * Ekta Gomes RN - 10/21/2023 3:20 AM EST IN-HOUSE TRANSFER RECEIVING UNIT - NURSING [address] [address] Name: Ramona Stringer Location: [place] [address] CC- Date: 10/21/2023 Time: 3:20 AM Patient received to room 225 at 0320 Vital Signs: BP: 161 mmHg/93 mmHg (10/21/23 032) Pulse: 87 (10/21/23 0320) Temp: 37.67 C (10/21/23319) Resp: 15 (10/21/23319) SpO2: 94 % (10/21/23319) Pertinent transfer information upon arrival: Patient had sustained run of afib with RVR. Needs closer monitoring. Belongings received with patient: clothing/shoes and wallet/purse/keys Verbal SBAR report received from: Julienne Ya RN * Julienne Ya RN - 10/21/2023 3:20 AM EST Patient's HR in the 160's around 0254 while pt in the bathroom. Provider was notified. HR went backdown in the high 80's once back to bed but then shot back up in the 160's while laying calmly in bed. Patient was transferred to the CCU where her HR again went down to the 90's and back up to the 160's. Patient's HR went back down to the high 80's and resting comfortably. Provider at the bedside. EL * Julienne Ya RN - 10/21/2023 1:45 AM EST Patient was educated on 1500 mL fluid restriction. Patient is having difficulty limiting her fluid intake * Pebbles Polk RN - 10/21/2023 12:09 AM EST VIRTUAL RN [facility] [address] Name: Ramona Stringer Location: [facility] MH2 [id number] Date: 10/21/2023 Time: 12:09 AM I completed the Admission Navigator. The patient was in the hospital. I was in a private office space at a [facility] location. After connecting through [employer], the patient was identified by name and date of and / or wristband checked. Patient (or authorized legal quality audit representative) was then in formed that this was a Virtual Nurse visit and was being conducted confidentially over secure lines. My office door was closed. No one else was in the room with me. Patient acknowledged consent and understanding of privacy and security of the Virtual Nurse visit. I presented the opportunity for thepatient or authorized legal quality audit representative to ask any questions regarding the visit today. The patient or authorized legal quality audit representative agreed to participate. Beckie Saenz RN, aware that patient needsher bipap and that she also needs transportation for appointments. * Julienne Ya RN - 10/20/2023 11:50 PM EST Dual Licensed Skin Assessment completed by RADHA Robins and RUSH Nj. The patient is/has a N/A Skin Breakdown (includes non blanchable erythema): No * Sienna Green LPN - 10/20/2023 8:58 PM EST Pt. Ambulated 100 feet. No noted obvious SOB. Pt. Returned to room and seemed SOB with exertional positioning into bed. Lowest sat noted was 93% on RA. Provider aware. Pt. Provided with water. Pt. Now resting in bed, no needs voiced. documented in this encounter ED Notes * Winnie Granda RN - 10/20/2023 5:05 PM EST Patient has been short of breath since March. It has gotten much worse over the past few weeks. She can also feel herself going in an out of A-fib. * Hernan Park DO - 10/20/2023 5:03 PM EST HISTORY OF PRESENT ILLNESS Ramona Stringer is a 67 year old female who presents to the ED for evaluation of Short of Breath(Since March). The patient was seen at 10/20/23 1644. According to the patient she states she has a history of atrial fibrillation and heart failure and currently takes Bumex. She states she also has a history of atrial fibrillation. She states over the last several weeks she has had on and off stents of increasing heart rate and feeling as if she goes in atrial fibrillation. She also has had someshortness of breath over the last several days as well. She has had some lower extremity edema thatshe states is about typical for her but potentially mildly worse. She was seen at urgent care today where a chest x-rays performed that showed pulmonary edema and mild cardiomegaly when compared to prior. She states she was advised to come to the ER for further lab testing. The patient's allergies, past history, and medications were reviewed. PHYSICAL EXAM Initial Vitals (see all): BP 128/77 | Pulse 84 | Resp 22 | Temp 100.1 | O2 97 %, Room Air, None | Weight 111.59 kg | Height 167.6 cm | BMI 39.71 kg/m2 Initial Pain Assessment (see all): 0 (no pain)/10 ([facility]er Adult Scale 0-10) Physical Exam Vitals and nursing note reviewed. Constitutional: General: She is not in acute distress. Appearance: She is well-developed. HENT: Head: Normocephalic and atraumatic. Eyes: Conjunctiva/sclera: Conjunctivae normal. Cardiovascular: Rate and Rhythm: Normal rate and regular rhythm. Heart sounds: No murmur heard. Pulmonary: Effort: Pulmonary effort is normal. No respiratory distress. Breath sounds: Normal breath sounds. Abdominal: Palpations: Abdomen is soft. Tenderness: There is no abdominal tenderness. Musculoskeletal: General: No swelling. Cervical back: Neck supple. Comments: Mild 2+ pitting edema in bilateral lower extremities Skin: General: Skin is warm and dry. Capillary Refill: Capillary refill takes less than 2 seconds. Neurological: Mental Status: She is alert. Psychiatric: Mood and Affect: Mood normal. PROCEDURES AND TREATMENTS ED Orders | ED Results MEDICAL DECISION MAKING Nursing notes and vital signs were reviewed. ED Course as of 10/20/232148e Oct 20, 2023 175 BNP, NT-Pro(!): 4,473 [DM] 1755 BMP unremarkable [DM] 1755 CBC shows mild leukocytosis [DM] 1755 Troponin shows mild elevation when compared to prior. Will repeat. [DM] 191 Previous chest x-ray reviewed that shows mild pulmonary edema by my interpretation. [DM] 2144 Patient complains of increased shortness of breath with ambulation. She appears to get short of breath when getting out of bed. Ambulatory pulse ox 92%. [CB] ED Course User Index [CB] Ofelia Andrews DO [DM] Hernan Park DO Differential Diagnoses Based on my history, physical exam, and evaluation, the differential includes, but is not limited, to the following diagnoses: Atrial fibrillation with rapid ventricular response, electrolyte abnormality, ACS. Patient found to be well appearing in no significant distress with a benign physical exam. Her lungs auscultation with otherwise no increased work of breathing or new oxygen requirement. Given the patient's reported history further labs were performed that showed moderate elevation in brain natriuretic peptide with mild elevation in troponin. EKG otherwise nonischemic with atrial fibrillation with rapid ventricular response. Otherwise normal intervals and axis by my interpretation. Patient was going in between normal sinus rhythm and atrial fibrillation while in the ER. Patient given dose of Cardizem with improvement of rate. Patient given dose of IV Lasix while in the emergency department.Patient otherwise had no signs or symptoms of a pericardial effusion in her symptoms were very similar with prior her failure exacerbations. Heart non muffled and clear to auscultation. The patient was signed out to Dr. Mejias at 7:11 PM pending results of repeat troponin and likely discharge home with follow up with her boiler house mechanic. Amount and/or Complexity of Data Reviewed Labs: ordered. Decision-making details documented in ED Course. Risk Prescription drug management. Clinical Impressions Paroxysmal atrial fibrillation (HCC) Acute on chronic congestive heart failure, unspecified heart failure type (HCC) Disposition No disposition documented. Hernan Park documented in this encounter Miscellaneous Notes * Ancillary Progress Note - Lindsey Enriquez RN - 10/21/2023 3:19 PM EST CARE MANAGEMENT - ADULT INITIAL SCREENING [address] [address] Name: Ramona Stringer Location: [address] Date: 10/21/2023 Time: 3:19 PM Discussed patient with the interdisciplinary care team. This Spindle Sander performed a chart review and met with Pt at bedside to complete admission screen and assessed needs for transition planning. The child care giver role and services were explained and emotional support was provided. Chief Complaint: Short of Breath (Since March) Pt reports she had a knee replacement and in February when she was starting to recover her A-Fib startedto flare up. Pt reports she has not had energy and has been feeling worse the last month. Pts medical decision maker has been identified a being self and son Tobi Thurman who is involved with her plan of care. Per review of the medical record, pt has no admitting MH Dx. Pts primary pharmacy has been identified as being [facility] in [place]. Pt describes having an intact family support system, Pt lives on first floor and son on second floor. Pt denies any prior Hx of Substance abuse. Pt denies difficulty completing her ADLs prior to admission. Pt reports to being able to read/write. Pt denies difficulty managing her own medications prior to admission. Pt reports home BI-PAP prior to admission and is expected to resume upon discharge. Pt reports home DME of RW/Cane prior to admission and is expected to resume upon discharge. Pt reports has stair glide to go to 2nd floor of home prior to admission and is expected to resume upon discharge. Pt reports does drive, due to recently not feeling well has opted to seek other form of transportation. Pt reports active with office of aging, has tried to utilize [facility] transportation for cardiology appointment in [place], problem with the days that [facility] offers [place] visits. Gave Pt brochure on medical transportation service that are available. Prior Living Arrangements What was your living situation prior to admission/observation?: Alone (10/21/238) Living Quarters: House (10/21/231516) Number of steps to enter living quarters:: level has stair lift for 2nd floor where son lives (10/21/231516) Do you have serious difficulty walking or climbing stairs? (5 years old or older): Yes (climbing stairs r/t knee problem) (10/21/238) History of falling: No (10/21/23 02) Prior Level of Functioning Describe the patient's ability prior to admission/observation to perform ADLs: Performs independently (10/21/238) Describe the patient's mobility status prior to admission: Patient ambulates independently (10/21/238) Patient uses assistive device: No (10/21/238) Caregiver Information Patient Contacts Name Relation Home Work Mobile Tobi Thurman Adult Child [phone] Risk Stratification/Psychosocial/Care Gaps Risk Stratification Psycho Social / Medical Concerns Identified: Adjustment to illness/injury;Multiple Comorbidities (10/21/231516) [facility]ed [facility] to connect patients to social care resources: No (10/21/231516) OBRA or OPTIONS needed for placement: No (10/21/231516) Readmission Risk Score: 10.25 (10/21/23 1201) AM-PAC Score With Stairs : 23 (10/21/23726) Prior to Admission Services Services Prior to Admission DISPATCHER SHIP [employer]ILOT Services (Services received within the last 30 days with exception, Psych within last two years): N/A (10/21/231516) [place] Dept[employer] of Aging (PDA) Waiver Program: Yes - Active (10/21/231516) DISPATCH[employer]ILOT Transportation (Services received within the last 30 days): [facility] Transportation(10/21/231516) Outpatient Spindle Sander: Patient Care Team: Maggie Diggs RN as Supervisor Insecticide (Registered Nurse) Patient/Family Expectations: home Tentative DC plan: Once deemed Medically appropriate, it's anticipated pt will DC home pending continued Medical workup/evaluations and findings. Pt may benefit from HH SN/PT/OT upon Tx team evaluation upon discharge. Pt expected to resume home BiPap upon discharge. Pt is expected to resume home DME, RW/Cane upon discharge. Pt is expected to resume office of aging services upon discharge. The Tx Team will meet daily in order to discuss DC planning/needs. Court Monitor will continue to follow for any identified needs and/or concerns which may arise. For further screening information, please refer to the Care Management flow document. * Care Plan - Ekta Gomes RN - 10/21/2023 6:55 AM EST Clinical Goal(s): Patient's HR will remain < 100 the remainder of shift.. (10/21/23 0320) Possible barriers to meeting goal(s)/advancing plan of care: paroxysmal afib Stability of the patient: Moderately unstable - medium risk of patient condition declining or worsening Summary regarding today's goal(s): Not Met: Patient's HR was mostly < 100 since transferred to CCU. Patient had a 1 minute run of afib with RVR around 0608. Patient was lying in bed and was not due to any activity, but broke on itsown. Recommendations: Continue to monitor HR and rhythm and medicate accordingly. * ED Chimney Builder Helper Note - Tasha Esqueda RN - 10/20/2023 10:55 PM EST Report given to RADHA Robins. All questions answered at this time. * ED Chimney Builder Helper Note - Winnie Granda RN - 10/20/2023 5:20 PM EST Patient refusing to let anyone else stick her with an IV. Dr. Park at bedside talking with the patient, she stated she would "let someone good try." documented in this encounter Plan of Treatment Upcoming Encounters Date Type Department Care Team (Late st Contact Info) Description 11/13/2023 9:45 AM EST Office Visit Cardiology, [facility] [address] [facility] [place] [address] Maggie Melendez DO [address] [place] [id number] 12/10/2023 2:20 PM EST Office Visit Family Practice [address] [facility] [address] [facility] [place] [phone] Lucie Montero DO [address] [place] [address] 12/24/2023 2:00 PM EST Nurse Only Ancillary [address] [facility], [place] [address] [facility], [place] [address] College, Nurse Annual Wellness Visit [address] [facility] [address] [facility], [place] [address] 09/30/2024 2:30 PM EST Office Visit Otolaryngology [facility] [address] [facility] [place] [address] Femi Bal, [address] [facility] [place] [address] Pending Results Name Type Priority Associated Diagnoses Date /Time CULTURE, BLOOD Lab Routine 10/21/2023 3:01 PM EST CULTURE, BLOOD Lab Routine 10/21/2023 2:57 PM EST Health Maintenance Due Date Last Done Comments COVID-19 Vaccine (#1) 05/20/1956 Pneumococcal Vaccine: 65+ Years (1 - PCV) 1960 DTaP,Tdap,and Td Vaccines (1 - Tdap) 1973 Mammogram 1994 Zoster Vaccines (1 of 2) 2004 COLONOSCOPY-EVERY 5 YRS AGES 18-100 06/24/2021 06/24/2016, 06/24/2016 Influenza Vaccine (FLU shot) (#1) 2023 Depression Screening 10/08/2024 10/08/2023, 01/30/2015 (Declined) GFR 10/22/2024 10/22/2023, 09/26, 10/21/2023, Additional history exists Albumin/Creatinine Ratio 05/18/2026 05/18/2023 Diabetes Screening 10/22/2026 10/22/2023, 1 12/22/2022, 10/21/2023, Additional history exists Lipid Panel 10/21/2028 10/21/2023, [...] Procedure Name Priority Date/Time Associated Diagnosis Comments CULTURE, BLOOD Routine 10/21/2023 3:01 PM EST CULTURE, BLOOD Routine 10/21/2023 2:[address] ABD/PELVIS WO IV/ORAL CONTRAST Routine 10/21/2023 12:59 PM EST ECHO, COMPLETE (2D), TRANS-THORACIC Routine 10/21/2023 12:33 PM EST Heart failure (HCC) MICROSCOPIC EXAM, URINE Routine 10/21/2023 11:57 AM EST URINALYSIS, REFLEX TO MICROSCOPIC Routine 10/21/2023 11:57 AM EST TROPONIN T, HIGH SENSITIVITY Routine 10/21/2023 5:38 AM EST TSH WITH FREE T4 IF INDICATED Add-on 10/21/2023 5:38 AM EST BASIC METABOLIC PANEL Routine 10/21/2023 5:38 AM EST PT INR Routine 10/21/2023 5:38 AM EST PHOSPHORUS Routine 10/21/2023 5:38 AM EST CBC Routine 10/21/2023 5:38 AM EST MAGNESIUM Routine 10/21/2023 5:38 AM EST LIPID PANEL WITHOUT DIRECT LDL Routine 10/21/2023 5:38 AM EST TROPONIN T, HIGH SENSITIVITY Routine 10/20/2023 11:22 PM EST TROPONIN T, HIGH SENSITIVITY STAT 10/20/2023 7:06 PM EST RESPIRATORY PATHOGEN PANEL, PCR STAT 10/20/2023 5:52 PM EST DIFFERENTIAL, AUTOMATED STAT 10/20/2023 5:11 PM EST TROPONIN T, HIGH SENSITIVITY STAT 10/20/2023 5:11 PM EST HEMOGLOBIN A1C Add-on 10/20/2023 5:11 PM EST BNP (NT-PROBNP) STAT 10/20/2023 5:11 PM EST BASIC METABOLIC PANEL STAT 10/20/2023 5:11 PM EST CBC STAT 10/20/2023 5:11 PM EST PHOSPHORUS Add-on 10/20/2023 5:11 PM EST CBC STAT 10/20/2023 5:11 PM EST MAGNESIUM Add-on 10/20/2023 5:11 PM EST documented in this encounter Results * CT ABD/PELVIS WO IV/ORAL CONTRAST (10/21/2023 12:59 PM EST) Anatomical Region Laterality Modality Body, Abdomen, Pelvis Computed T omography 10/21/2023 12:5 5 PM EST Impressions 10/21/2023 1:33 PM EST IMPRESSION: 1. No acute findings within the abdomen or pelvis. 2. Colonic diverticulosis. No evidence of acute diverticulitis. 3. Small left lower abdominal wall hernia containing loop of small bowel without evidence of obstruction. 4. Cholelithiasis without evidence of acute cholecystitis. 5. Small patchy area of consolidation right lower lobe. Cannot exclude pneumonia. 6. Two pulmonary nodules right middle lobe largest which measures 5 mm. Recommend a follow-up CT chest in 6 months for continued surveillance. THIS DOCUMENT HAS BEEN ELECTRONICALLY SIGNED BY LULU LOTT MD Narrative 10/21/2023 1:33 PM EST PROCEDURE INFORMATION: Exam: CT Abdomen And Pelvis Without Contrast Exam date and time: 10/21/2023 12:55 PM Age: 67 years old Clinical indication: Abdominal pain; Localized; Left lower quadrant (llq); Additional info: Pain, rule out diverticulitis TECHNIQUE: Imaging protocol: Computed tomography of the abdomen and pelvis without contrast. Radiation optimization: All CT scans at this facility use at least one of these dose optimization techniques: automated exposure control; mA and/or kV adjustment per patient size (includes targeted exams where dose is matched to clinical indication); or iterative reconstruction. REPORTING DATA: Count of CT and Cardiac NM exams in prior 12 months: This patient has received [address] and 0 known cardiac nuclear medicine studies in the 12 months prior to the current study. COMPARISON: No relevant prior studies available. FINDINGS: Lungs: Two abutting pulmonary nodules right middle lobe largest which measures 5 mm. Small area of peribronchial consolidation right lower paravertebral gutter concerning for combination of subsegmental atelectasis and pneumonia. Heart: Heart is enlarged. Liver: Normal. No mass. Gallbladder and bile ducts: There are multiple small gallstones within the dependent portion the gallbladder which is otherwise unremarkable. Bile ducts are not dilated. Pancreas: Unremarkable. Main pancreatic duct is not significantly dilated. Spleen: Normal. No splenomegaly. Adrenal glands: Normal. No mass. Kidneys and ureters: Kidneys are unremarkable. No calculi or hydronephrosis detected. Stomach and bowel: 0 surgical changes involving portion of the transverse colon. Few scattered diverticuli distal large bowel without evidence of acute diverticulitis. There is a small ventral wall hernia in the left lower abdominal wall containing loop of small bowel without evidence of obstruction. Appendix: No evidence of appendicitis. Intraperitoneal space: Unremarkable. No free air. No significant fluid collection. Vasculature: Unremarkable. No abdominal aortic aneurysm. Lymph nodes: Unremarkable. No enlarged lymph nodes. Urinary bladder: Unremarkable as visualized. Reproductive: Unremarkable as visualized. Bones/joints: Unremarkable. No acute fracture. Soft tissues: See "Stomach and bowel" finding. Procedure Note Lulu Lott MD - 10/21/2023 PROCEDURE INFORMATION: Exam: CT Abdomen And Pelvis Without Contrast Exam date and time: 10/21/2023 12:55 PM Age: 67 years old Clinical indication: Abdominal pain; Localized; Left lower quadrant (llq); Additional info: Pain, rule out diverticulitis TECHNIQUE: Imaging protocol: Computed tomography of the abdomen and pelvis without contrast. Radiation optimization: All CT scans at this facility use at least one ofthese dose optimization techniques: automated exposure control; mA and/or kV adjustment per patient size (includes targeted exams where dose is matchedto clinical indication); or iterative reconstruction. REPORTING DATA: Count of CT and Cardiac NM exams in prior 12 months: This patient hasreceived [address] and 0 known cardiac nuclear medicine studies in the 12 monthsprior to the current study. COMPARISON: No relevant prior studies available. FINDINGS: Lungs: Two abutting pulmonary nodules right middle lobe largest whichmeasures 5 mm. Small area of peribronchial consolidation right lower paravertebral gutter concerning for combination of subsegmental atelectasis andpneumonia. Heart: Heart is enlarged. Liver: Normal. No mass. Gallbladder and bile ducts: There are multiple small gallstones within the dependent portion the gallbladder which is otherwise unremarkable. Bileducts are not dilated. Pancreas: Unremarkable. Main pancreatic duct is not significantly dilated. Spleen: Normal. No splenomegaly. Adrenal glands: Normal. No mass. Kidneys and ureters: Kidneys are unremarkable. No calculi orhydronephrosis detected. Stomach and bowel: 0 surgical changes involving portion of the transverse colon. Few scattered diverticuli distal large bowel without evidence ofacute diverticulitis. There is a small ventral wall hernia in the left lower abdominal wall containing loop of small bowel without evidence ofobstruction. Appendix: No evidence of appendicitis. Intraperitoneal space: Unremarkable. No free air. No significant fluid collection. Vasculature: Unremarkable. No abdominal aortic aneurysm. Lymph nodes: Unremarkable. No enlarged lymph nodes. Urinary bladder: Unremarkable as visualized. Reproductive: Unremarkable as visualized. Bones/joints: Unremarkable. No acute fracture. Soft tissues: See "Stomach and bowel" finding. IMPRESSION IMPRESSION: 1. No acute findings within the abdomen or pelvis. 2. Colonic diverticulosis. No evidence of acute diverticulitis. 3. Small left lower abdominal wall hernia containing loop of small bowel without evidence of obstruction. 4. Cholelithiasis without evidence of acute cholecystitis. 5. Small patchy area of consolidation right lower lobe. Cannot exclude pneumonia. 6. Two pulmonary nodules right middle lobe largest which measures 5 mm. Recommend a follow-up CT chest in 6 months for continued surveillance. THIS DOCUMENT HAS BEEN ELECTRONICALLY SIGNED BY LULU LOTT MD Neo Belcher DO RAD CT * ECHO, COMPLETE (2D), TRANS-THORACIC (10/21/2023 12:33 PM EST) LEFT VENTRICULAR EJECTION FRACTION 20 % [facility] CARDIOLOGY 10/21/2023 11:5 6 AM EST Sudhir Pak PA-C ECHOCARDIOLOGY [facility] CARDIOLOG[facility] * MICROSCOPIC EXAM, URINE (10/21/2023 11:57 AM EST) RBC, Urine 0-2 0 - 2 /HPF 10/21/2023 11:58 AM EST LABORATORY [facility] WBC, Urine 0-2 0 - 2 /HPF 10/21/2023 11:58 AM EST LABORATORY [facility] Bacteria, Urine 0-25 0 - 25 /HPF 10/21/2023 11:58 AM EST LABORATORY [facility] Urine Non-blood Collection / Unknown 10/21/2023 11:57 AM EST 10/21/2023 11:36 AM EST Sudhir Pak PA-C LAB URINE ORDERABLE S LABORATORY [address] [address] * (ABNORMAL) URINALYSIS, REFLEX TO MICROSCOPIC (10/21/2023 11:57 AM EST) Color, Urine Yellow Light Yellow, Yellow, Dark Yellow 10/21/2023 11:58 AM EST LABORATORY [facility] Clarity, Urine Clear Clear 10/21/2023 11:58 AM EST LABORATORY [facility] Glucose, Urine Negative Negative mg/dL 10/21/2023 11:58 AM EST LABORATORY [facility] Bilirubin, Urine Negative Negative 10/21/2023 11:58 AM EST LABORATORY [facility] Ketone, Urine Negative Negative mg/dL 10/21/2023 11:58 AM EST LABORATORY [facility] Specific Pana, Urine 1.010 1.003 - 1.030 10/21/2023 11:58 AM EST LABORATORY [facility] Blood, Urine Negative Negative 10/21/2023 11:58 AM EST LABORATORY [facility] pH, Urine 7.0 5.0 - 7.5 Units 10/21/2023 11:58 AM EST LABORATORY [facility] Protein, Urine Negative Negative mg/dL 10/21/2023 11:58 AM EST LABORATORY [facility] Urobilinogen, Urine 0.2 0.2, 1.0 mg/dL 10/21/2023 11:58 AM EST LABORATORY [facility] Nitrite, Urine Negative Negative 10/21/2023 11:58 AM EST LABORATORY [facility] Esterase, Urine Small(A) Negative 10/21/2023 11:58 AM EST LABORATORY [facility] Urine Non-blood Collection / Unknown 10/21/2023 11:57 AM EST 10/21/2023 11:36 AM EST Sudhir Pak PA-C LAB URINE ORDERABLE S Performing Organization Address City/[facility]/ZIP Co de Phone Number LABORATORY [facility] [address] [place] [address] * TSH WITH FREE T4 IF INDICATED (10/21/2023 5:38 AM EST) TSH 1.56 0.27 - 4.20 uIU/mL 10/21/2023 8:47 PM EST LABORATORY [facility] Blood Venous blood specimen / Unknown Venipuncture / Unknown 10/21/2023 5:38 AM EST 10/21/2023 6:02 AM EST Neo Belcher DO LAB BLOOD ORDERAB LES LABORATORY [facility] [address] [place] [address] * PHOSPHORUS (10/21/2023 5:38 AM EST) Phosphorus 3.8 2.5 - 4.8 mg/dL 10/21/2023 6:28 AM EST LABORATORY [facility] Blood Venous blood specimen / Unknown Venipuncture / Unknown 10/21/2023 5:38 AM EST 10/21/2023 6:02 AM EST Sudhir Pak PA-C LAB BLOOD ORDERABLE S LABORATORY [address] [address] * MAGNESIUM (10/21/2023 5:38 AM EST) Pathologist [facility] Magnesium 2.2 1.5 - 2.6 mg/dL 10/21/2023 6:28 AM EST LABORATORY [facility] Blood Venous blood specimen / Unknown Venipuncture / Unknown 10/21/2023 5:38 AM EST 10/21/2023 6:02 AM EST Sudhir Pak PA-C LAB BLOOD ORDERABLE S Performing Organization Address [facility]/ZIP Co de Phone Number LABORATORY [address] [address] * (ABNORMAL) LIPID PANEL WITHOUT DIRECT LDL (10/21/2023 5:38 AM EST) [facility] Triglycerides 106 <=174 mg/dL 10/21/2023 2:01 PM EST LABORATORY [facility] Comment: Triglyceride Reference Ranges (mg/dL): <150 Acceptable 150-174 Borderline high 175-499 High >=500 Very high Cholesterol 173 <200 mg/dL 10/21/2023 2:01 PM EST LABORATORY [facility] Comment: Total Cholesterol Reference Ranges (mg/dL): <200 Desirable 200-239 Borderline high >=240 High HDL Cholesterol 45(L) >49 mg/dL 2:01 PM EST LABORATORY [facility] Comment: HDL Cholesterol Reference Ranges (mg/dL): >=60 High (Desirable) <50 Low (Undesirable) For Females <40 Low (Undesirable) For Males Non-HDL Cholesterol 128 <=159 mg/dL 10/21/2023 2:01 PM EST LABORATORY [facility] Comment: Non-HDL Cholesterol Reference Range (mg/dL): <100 Target level for high risk ASCVD patient <130 Optimal for general population 130-159 Near optimal for general population 160-189 Borderline High 190-219 High >=220 Very High LDL Cholesterol 107 <=129 mg/dL 10/21/2023 2:01 PM EST LABORATORY [facility] Comment: LDL Cholesterol Reference Ranges (mg/dL): <70 Target level for high risk ASCVD patient <100 Optimal for general population 100-129 Near optimal for general population 130-159 Borderline high 160-189 High >=190 Very high Blood Venous blood specimen / Unknown Venipuncture / Unknown 10/21/2023 5:38 AM EST 10/21/2023 6:02 AM EST Sudhir Pak PA-C LAB BLOOD ORDERABLE S LABORATORY [facility] [address] [place] [address] * CBC (10/21/2023 5:38 AM EST) WBC 9.56 4.00 - 10.80 K/uL 10/21/2023 6:12 AM EST LABORATORY [facility] RBC 4.70 3.85 - 5.15 M/uL 10/21/2023 6:12 AM EST LABORATORY [facility] HGB 14.2 12.0 - 15.3 g/dL 10/21/2023 6:12 AM EST LABORATORY [facility] HCT 42.5 36.0 - 45.2 % 10/21/2023 6:12 AM EST LABORATORY [facility] MCV 90.4 81.5 - 97.5 fL 10/21/2023 6:12 AM EST LABORATORY [facility] MCH 30.2 27.0 - 34.0 pg 10/21/2023 6:12 AM EST LABORATORY [facility] MCHC 33.4 32.0 - 36.0 g/dL 10/21/2023 6:12 AM EST LABORATORY [facility] RDW 14.1 11.5 - 15.5 % 10/21/2023 6:12 AM EST LABORATORY [facility] PLT 225 140 - 400 K/uL 10/21/2023 6:12 AM EST LABORATORY [facility] MPV 9.8 6.6 - 11.1 fL 10/21/2023 6:12 AM EST LABORATORY [facility] Blood Venous blood specimen / Unknown Venipuncture / Unknown 10/21/2023 5:38 AM EST 10/21/2023 6:02 AM EST Sudhir Pak PA-C LAB BLOOD ORDERABLE S Performing Organization Address [facility] de Phone Number LABORATORY [address] [phone] * (ABNORMAL) PT INR (10/21/2023 5:38 AM EST) Prothrombin Time 16.0(H) 11.6 - 15.2 seconds 10/21/2023 6:34 AM EST LABORATORY [facility] INR 1.3(H) 0.8 - 1.2 10/21/2023 6:34 AM EST LABORATORY [facility] Blood Venous blood specimen / Unknown Venipuncture / Unknown 10/21/2023 5:38 AM EST 10/21/2023 6:02 AM EST Narrative LABORATORY [facility] - 10/21/2023 6:34 AM EST Warfarin Therapy INR: 2.0-3.0 conventional anticoagulation INR: 2.5-3.5 high intensity anticoagulation Sudhir Pak PA-C LAB BLOOD ORDERABLE S Performing Organization Address [facility] Co de Phone Number LABORATORY [address] [phone] * BASIC METABOLIC PANEL (10/21/2023 5:38 AM EST) Pathologist [facility] BUN 16 6 - 20 mg/dL 10/21/2023 6:28 AM EST LABORATORY [facility] Creatinine 0.7 0.5 - 1.0 mg/dL 10/21/2023 6:28 AM EST LABORATORY [facility] Estimated Glomerular Filtration Rate 90 >=60 mL/min 10/21/2023 6:28 AM EST LABORATORY [facility] Comment:eGFR is calculated b ased on the CKD-EPI 2020 equation Sodium 140 135 - 146 mmol/L 10/21/2023 6:28 AM EST LABORATORY [facility] Potassium 3.6 3.5 - 5.1 mmol/L 10/21/2023 6:28 AM EST LABORATORY [facility] Chloride 100 98 - 107 mmol/L 10/21/2023 6:28 AM EST LABORATORY [facility] CO2 27 22 - 32 mmol/L 10/21/2023 6:28 AM EST LABORATORY [facility] Anion Gap 13 7 - 15 mmol/L 10/21/2023 6:28 AM EST LABORATORY [facility] Glucose 110 70 - 120 mg/dL 10/21/2023 6:28 AM EST LABORATORY [facility] Calcium 9.6 8.4 - 10.2 mg/dL 10/21/2023 6:28 AM EST LABORATORY [facility] Blood Venous blood specimen / Unknown Venipuncture / Unknown 10/21/2023 5:38 AM EST 10/21/2023 6:02 AM EST Sudhir Pak PA-C LAB BLOOD ORDERABLE S LABORATORY [address] [phone] * (ABNORMAL) TROPONIN T, HIGH SENSITIVITY (10/21/2023 5:38 AM EST) Troponin T, High Sensitivity 42(H) <=14 ng/L 10/21/2023 6:27 AM EST LABORATORY [facility] Blood Venous blood specimen / Unknown Venipuncture / Unknown 10/21/2023 5:38 AM EST 10/21/2023 6:02 AM EST Sudhir Pak PA-C LAB BLOOD ORDERABLE S Performing Organization Address [facility]/ZIP Co de Phone Number LABORATORY [address] [phone] * (ABNORMAL) TROPONIN T, HIGH SENSITIVITY (10/20/2023 11:22 PM EST) Troponin T, High Sensitivity 45(H) <=14 ng/L 10/21/2023 12:00 AM EST LABORATORY [facility] Blood Venous blood specimen / Unknown Venipuncture / Unknown 10/20/2023 11:22 PM EST 10/20/2023 11:28 PM EST Sudhir Pak PA-C LAB BLOOD ORDERABLE S LABORATORY [address] [phone] * (ABNORMAL) TROPONIN T, HIGH SENSITIVITY (10/20/2023 7:06 PM EST) Pathologist [facility] Troponin T, High Sensitivity 41(H) <=14 ng/L 10/20/2023 7:39 PM EST LABORATORY [facility] Blood Venous blood specimen / Unknown Venipuncture / Unknown 10/20/2023 7:06 PM EST 10/20/2023 7:24 PM EST Hernan Park DO LAB BLOOD ORDERABL ES LABORATORY [id number] [place] [address] * RESPIRATORY PATHOGEN PANEL, PCR (10/20/2023 5:52 PM EST) Pathologist [facility] Adenovirus by PCR Negative Negative 023 7:14 PM EST LABORATORY [facility] Coronavirus 229E by PCR Negative Negative 10/20/2023 7:14 PM EST LABORATORY [facility] Coronavirus HKU1 by PCR Negative Negative 10/20/2023 7:14 PM EST LABORATORY [facility] Coronavirus NL63 by PCR Negative Negative 10/20/2023 7:14 PM EST LABORATORY [facility] Coronavirus OC43 by PCR Negative Negative 10/20/2023 7:14 PM EST LABORATORY [facility] Coronavirus SARS-CoV-2 by PCR Negative Negative 10/20/2023 7:14 PM EST LABORATORY [facility] Human Metapneumovirus by PCR Negative Negative 10/20/2023 7:14 PM EST LABORATORY [facility] Rhinovirus/Enterovi rosaura by PCR Negative Negative 10/20/2023 7:14 PM EST LABORATORY [facility] Influenza A Virus by PCR Negative Negative 10/20/2023 7:14 PM EST LABORATORY [facility] Influenza B Virus by PCR Negative Negative 10/20/2023 7:14 PM EST LABORATORY [facility] Parainfluenza Virus 1 by PCR Negative Negative 10/20/2023 7:14 PM EST LABORATORY SH Parainfluenza Virus 2 by PCR Negative Negative 10/20/2023 7:14 PM EST LABORATORY SH Parainfluenza Virus 3 by PCR Negative Negative 10/20/2023 7:14 PM EST LABORATORY SH Parainfluenza Virus 4 by PCR Negative Negative 10/20/2023 7:14 PM EST LABORATORY [facility] Respiratory Syncytial Virus by PCR Negative Negative 10/20/2023 7:14 PM EST LABORATORY [facility] Bordetella pertussis by PCR Negative Negative 10/20/2023 7:14 PM EST LABORATORY [facility] Chlamydia pneumoniae by PCR Negative Negative 10/20/2023 7:14 PM EST LABORATORY [facility] Mycoplasma pneumoniae by PCR Negative Negative 10/20/2023 7:14 PM EST LABORATORY [facility] Bordetella parapertussis by PCR Negative Negative 10/20/2023 7:14 PM EST LABORATORY [facility] Comment: The primers that detect Rhinovirus may cross react with some Enterorviruses. The validation of bronchial specimens, tracheal aspirates, and throats for this assay was developed and performance characteristics determined by [facility] [facility]. The validation of alternate specimen types has not been cleared or approved by the U.S. Food and Drug Administration (FDA). It has been determined that such clearance or approval is not necessary. Upper Respiratory Mid-turbinate nasal swab / Unknown Non-blood Collection / Unknown 10/20/2023 5:52 PM EST 10/20/2023 5:55 PM EST Hernan Park DO LAB MICRO - GENERA L ORDERABLES LABORATORY [address] [phone] * HEMOGLOBIN A1C (10/20/2023 5:11 PM EST) Pathologist [facility] Hemoglobin A1C 5.4 4.0 - 5.6 % 10/21/2023 2:33 PM EST LABORATORY [facility] Comment:The use of HbA1c to monitor glycemic status is based on normal hemoglobin and HbA composition. This test should not be used in patients with abnormal hemoglobin that affects the half life of the red blood cell or the in vivo glycation rates. Estimated Average Glucose 108 <126 mg/dL 10/21/2023 2:33 PM EST LABORATORY [facility] Blood Venous blood specimen / Unknown Venipuncture / Unknown 10/20/2023 5:11 PM EST 10/20/2023 5:14 PM EST Sudhir Pak PA-C LAB BLOOD ORDERABLE S LABORATORY [facility] [address] [place] [address] * PHOSPHORUS (10/20/2023 5:11 PM EST) Phosphorus 3.8 2.5 - 4.8 mg/dL 10/20/2023 10:58 PM EST LABORATORY [facility] Blood Venous blood specimen / Unknown Venipuncture / Unknown 10/20/2023 5:11 PM EST 10/20/2023 5:14 PM EST Sudhir Pak PA-C LAB BLOOD ORDERABLE S LABORATORY [address] [phone] * MAGNESIUM (10/20/2023 5:11 PM EST) Pathologist [facility] Magnesium 2.0 1.5 - 2.6 mg/dL 10/20/2023 10:58 PM EST LABORATORY [facility] Blood Venous blood specimen / Unknown Venipuncture / Unknown 10/20/2023 5:11 PM EST 10/20/2023 5:14 PM EST Sudhir Pak PA-C LAB BLOOD ORDERABLE S Performing Organization Address City/[facility]/ZIP Co de Phone Number LABORATORY [address] [phone] * (ABNORMAL) DIFFERENTIAL, AUTOMATED (10/20/2023 5:11 PM EST) WBC 12.23(H) 4.00 - 10.80 K/uL 10/20/2023 5:23 PM EST LABORATORY [facility] Neutrophils % 77.2(H) 40.0 - 75.0 % 10/20/2023 5:23 PM EST LABORATORY [facility] Lymphocytes % 11.7(L) 18.0 - 42.0 % 10/20/2023 5:23 PM EST LABORATORY [facility] Monocytes % 9.8 1.0 - 11.0 % 10/20/2023 5:23 PM EST LABORATORY [facility] Eosinophils % 1.1 0.0 - 6.0 % 10/20/2023 5:23 PM EST LABORATORY [facility] Basophils % 0.2 0.0 - 2.0 % 10/20/2023 5:23 PM EST LABORATORY [facility] Absolute Neutrophils 9.44(H) 1.80 - 7.70 K/uL 10/20/2023 5:23 PM EST LABORATORY [facility] Absolute Lymphocytes 1.43 1.00 - 4.80 K/ul 10/20/2023 5:23 PM EST LABORATORY [facility] Absolute Monocytes 1.20(H) 0.00 - 1.10 K/uL 10/20/2023 5:23 PM EST LABORATORY [facility] Absolute Eosinophils 0.13 0.00 - 0.70 K/uL 10/20/2023 5:23 PM EST LABORATORY [facility] Absolute Basophils 0.03 0.00 - 0.20 K/uL 10/20/2023 5:23 PM EST LABORATORY [facility] Blood Venous blood specimen / Unknown Venipuncture / Unknown 10/20/2023 5:11 PM EST 10/20/2023 5:14 PM EST Hernan Park DO LAB BLOOD ORDERABL ES LABORATORY [address] [place] [address] * (ABNORMAL) CBC (10/20/2023 5:11 PM EST) WBC 12.23(H) 4.00 - 10.80 K/uL 10/20/2023 5:23 PM EST LABORATORY [facility] RBC 4.79 3.85 - 5.15 M/uL 10/20/2023 5:23 PM EST LABORATORY [facility] HGB 14.5 12.0 - 15.3 g/dL 10/20/2023 5:23 PM EST LABORATORY [facility] HCT 43.3 36.0 - 45.2 % 10/20/2023 5:23 PM EST LABORATORY [facility] MCV 90.4 81.5 - 97.5 fL 10/20/2023 5:23 PM EST LABORATORY [facility] MCH 30.3 27.0 - 34.0 pg 10/20/2023 5:23 PM EST LABORATORY [facility] MCHC 33.5 32.0 - 36.0 g/dL 10/20/2023 5:23 PM EST LABORATORY [facility] RDW 14.0 11.5 - 15.5 % 10/20/2023 5:23 PM EST LABORATORY [facility] PLT 236 140 - 400 K/uL 10/20/2023 5:23 PM EST LABORATORY [facility] MPV 10.2 6.6 - 11.1 fL 10/20/2023 5:23 PM EST LABORATORY [facility] Blood Venous blood specimen / Unknown Venipuncture / Unknown 10/20/2023 5:11 PM EST 10/20/2023 5:14 PM EST Hernan Cj Xavier NAILS LAB BLOOD ORDERABL ES Performing Organization Address City/[facility]/ZIP Co de Phone Number LABORATORY [address] [phone] * (ABNORMAL) BNP, NT-PRO (10/20/2023 5:11 PM EST) BNP, NT-Pro 4,473(H) <300 pg/mL 10/20/2023 5:48 PM EST LABORATORY [facility] Blood Venous blood specimen / Unknown Venipuncture / Unknown 10/20/2023 5:11 PM EST 10/20/2023 5:14 PM EST Narrative LABORATORY [facility] - 10/20/2023 5:48 PM EST Exclude Heart Failure: <300 pg/mL Diagnose Heart Failure: Age <50 yr: >450 pg/mL 50-75 yr: >900 pg/mL >75 yr: >1800 pg/mL GFR is 30-59 mL/min: >1200 pg/mL or Age-adjusted values GFR <30 mL/min: do not use, not reliable Prognostic threshold: 1000 pg/mL Hernan Cj Xavier NAILS LAB BLOOD ORDERABL ES LABORATORY [address] [phone] * (ABNORMAL) TROPONIN T, HIGH SENSITIVITY (10/20/2023 5:11 PM EST) Troponin T, High Sensitivity 38(H) <=14 ng/L 10/20/2023 5:46 PM EST LABORATORY [facility] Blood Venous blood specimen / Unknown Venipuncture / Unknown 10/20/2023 5:11 PM EST 10/20/2023 5:14 PM EST Hernan Park DO LAB BLOOD ORDERABL ES Performing Organization Address [facility]/ZIP Co de Phone Number LABORATORY [id number] [place] [address] * (ABNORMAL) BASIC METABOLIC PANEL (10/20/2023 5:11 PM EST) [facility] BUN 16 6 - 20 mg/dL 10/20/2023 5:43 PM EST LABORATORY [facility] Creatinine 0.7 0.5 - 1.0 mg/dL 10/20/2023 5:43 PM EST LABORATORY [facility] Estimated Glomerular Filtration Rate >90 >=60 mL/min 10/20/2023 5:43 PM EST LABORATORY [facility] Comment:eGFR is calculated b ased on the CKD-EPI 2020 equation Sodium 139 135 - 146 mmol/L 10/20/2023 5:43 PM EST LABORATORY [facility] Potassium 3.6 3.5 - 5.1 mmol/L 10/20/2023 5:43 PM EST LABORATORY [facility] Chloride 99 98 - 107 mmol/L 10/20/2023 5:43 PM EST LABORATORY [facility] CO2 24 22 - 32 mmol/L 10/20/2023 5:43 PM EST LABORATORY [facility] Anion Gap 16(H) 7 - 15 mmol/L 10/20/2023 5:43 PM EST LABORATORY [facility] Glucose 122(H) 70 - 120 mg/dL 10/20/2023 5:43 PM EST LABORATORY [facility] Calcium 9.5 8.4 - 10.2 mg/dL 10/20/2023 5:43 PM EST LABORATORY [facility] Blood Venous blood specimen / Unknown Venipuncture / Unknown 10/20/2023 5:11 PM EST 10/20/2023 5:14 PM EST Hernan Park LAB BLOOD ORDERABL ES LABORATORY [facility] [address] [place] [address] documented in this encounter Visit Diagnoses Diagnosis Acute on chronic systolic heart failure (HCC)- Primary Acute on chronic systolic heart failure Paroxysmal atrial fibrillation (HCC) Atrial fibrillation Acute on chronic congestive heart failure, unspecified heart failure type (HCC) Heart failure (HCC) Heart failure, unspecified Chest pain Chest pain, unspecified Elevated troponin Other abnormal blood chemistry WILL on CPAP Obstructive sleep apnea (adult) (pediatric) HTN, goal below 140/90 Unspecified essential hypertension Paroxysmal atrial fibrillation (HCC) Atrial fibrillation Pneumonia Pneumonia, organism unspecified Severe sepsis with acute organ dysfunction (HCC) Unspecified septicemia Atrial fibrillation with rapid ventricular response (HCC) Atrial fibrillation Fever of unknown origin Fever, unspecified documented in this encounter Administered Medications Inactive Administered Medications - up to 3 most recent administrations Medication Order MAR Action Action Date Dose Rate Site Acetaminophen (Tylenol) tab 650 mg 650 mg, Oral, Q6H PRN Pain, Mild, Fever >38C(100.5F), Headache, Starting on Thu10/20/23 at 2245, Until Thu10/21/23 at 2037, Maximum of 4 grams (4000 mg) per day. Given 10/21/2023 6:25 PM EST 650 mg Given 10/21/2023 1:30 PM EST 650 mg Apixaban (Eliquis) tab 5 mg 5 mg, Oral, BID (.AM/PM), First dose on Thu10/21/23 at 0400, Until Discontinued Given 10/21/2023 3:50 AM EST 5 mg Atenolol (Tenormin) tab 25 mg 25 mg, Oral, Daily(AM), First dose (after last modification) on Thu10/21/23 at 0900, Until Discontinued, Hold for HR less than 60 or SBP below 100 and notify service if dose is held Given 10/21/2023 8:18 AM EST 25 mg cefTRIAXone in dextrose (Rocephin) IVPB 2 g IV Piggyback, 2 g, Q24H, 5 doses, First dose on Thu10/21/23 at 1445, Last dose on Thu10/25/23 at 1445, Administer over 30 Minutes New Bag 10/21/2023 3:05 PM EST 2 g 100 mL/hr dilTIAZem (Cardizem) immediate release tab 30 mg 30 mg, Oral, Q6H, First dose on Thu10/21/23 at 0830, Until Discontinued, Hold for HR less than 60 or SBP below 100 and notify service if dose is held Given 10/21/2023 5:25 PM EST 30 mg Given 10/21/2023 12:00 PM EST 30 mg Given 10/21/2023 8:17 AM EST 30 mg dilTIAZem (Cardizem) inj 20 mg 20 mg, IV Push, ONCE, On Thu10/20/23 at 1745, For 1 dose Given 10/20/2023 6:23 PM EST 20 mg doxycycline tab 100 mg 100 mg, Oral, Q12H, First dose on Thu10/21/23 at 2100, Last dose on Thu10/26/23 at 0900, For 5 days Furosemide (Lasix) inj 40 mg 40 mg, IV Push, BID (0900, 1600), First dose on Thu10/21/23 at 0900, Until Discontinued Given 10/21/2023 4:03 PM EST 40 mg Given 10/21/2023 8:42 AM EST 40 mg Furosemide (Lasix) inj 60 mg 60 mg, IV Push, ONCE, On Thu10/20/23 at 1930, For 1 dose Given 10/20/2023 7:24 PM EST 60 mg house antacid (Mi-Acid II) oral susp 15 mL 15 mL, Oral, Q4H PRN Indigestion, Starting on Thu10/20/23 at 2245, Until Thu10/21/23 at 2037, SHAKE WELL ketorolac (Toradol) 15 MG/ML inj 15 mg 15 mg, IV Push, ONCE, On Thu10/21/23 at 1900, For 1 dose melatonin tab 3 mg 3 mg, Oral, HS PRN Insomnia, Starting on Thu10/20/23 at 2245, Until Thu10/21/23 at 2037 ondansetron (Zofran) inj 4 mg 4 mg, IV Push, Q6H PRN Nausea, Starting on Thu10/20/23 at 2245, Until Thu10/21/23 at 2037 oxyCODONE (Oxy IR) tab 5 mg 5 mg, Oral, Q4H PRN Pain, Moderate, Pain, Severe, Starting on Thu10/21/23 at 0322, Until Thu10/21/23 at 2038 Given 10/21/2023 6:25 PM EST 5 mg Given 10/21/2023 12:00 PM EST 5 mg Given 10/21/2023 8:06 AM EST 5 mg oxygen GAS Inhalation, OXYGEN, First dose on Thu10/21/23 at 0800, Until Discontinued, Device/Managed by: Low Flow Device, [...] than or equal to 93% Oxygen On 10/21/2023 4:00 PM EST 2 L/min(Oxygen) Oxygen On 10/21/2023 8:00 AM EST 2 L/min(Oxygen) perflutren lipid microsphere inj SUSP 1.956 mg 1.956 mg, Intravenous, ONCE PRN Other, For Echo Only - Suboptimal Echo Images, Starting on Thu10/21/23 at 1220, Until Thu10/21/23 at 1419, For 2 hours, Administer IVP over 45 seconds, Cardiac Studies_HODHOV Given 10/21/2023 12:20 PM EST 1.956 mg potassium chloride ER tab 20 mEq 20 mEq, Oral, Daily(AM), First dose on Thu10/21/23 at 0900, Until Discontinued Given 10/21/2023 8:18 AM EST 20 mEq potassium chloride ER tab 40 mEq 40 mEq, Oral, ONCE, On Thu10/20/23 at 2330, For 1 dose, This med should NOT be Crushed or Chewed Given 10/20/2023 11:25 PM EST 40 mEq sodium chloride 0.9 % flush peripheral sean 3 mL 3 mL, IV Push, QSHIFT, First dose on Thu10/21/23 at 0000, Until Discontinued, Do not flush if lock, PICC, or central line not in place; IV infusing or unable to flush. Given 10/21/2023 4:05 PM EST 3 mL Given 10/21/2023 8:43 AM EST 3 mL Given 10/20/2023 11:26 PM EST 3 mL sodium chloride 0.9 % flush/inj 3 mL 3 mL, IV Push, PRN Other, Line Patency, Starting on Thu10/20/23 at 2243, Until Thu10/21/23 at 2037, Do not flush if lock, PICC, or central line not in place, IV infusing or unable to flush Trolamine Salicylate (Arthricream) cream Topical, PRN Pain, Mild, Starting on Thu10/21/23 at 1200, Until Thu10/21/23 at 2037, Apply to joint pains Given 10/21/2023 1:08 PM ES T 1 Applicator documented in this encounter Active and Recently Administered Medications Times are shown in EST. Scheduled Medication Order 10/19/2023 10/20/2023 10/21/2023 Apixaban (Eliquis) tab 5 mg 5 mg, Oral, BID (.AM/PM), First dose on Thu10/21/23 at 0400, Until Discontinued 0350 (Given - Provid er: Ekta Gomes RN) Atenolol (Tenormin) tab 25 mg 25 mg, Oral, Daily(AM), First dose (after last modification) on Thu10/21/23 at 0900, Until Discontinued, Hold for HR less than 60 or SBP below 100 and notify service if dose is held 0818 (Given - Provid er: Alicia Euceda RN) cefTRIAXone in dextrose (Rocephin) IVPB 2 g IV Piggyback, 2 g, Q24H, 5 doses, First dose on Thu10/21/23 at 1445, Last dose on Thu10/25/23 at 1445, Administer over 30 Minutes 1505 (New Bag - Provider: Alicia Euceda RN)1610 (Finish Infusion - Provider: Alicia Euceda RN) dilTIAZem (Cardizem) immediate release tab 30 mg 30 mg, Oral, Q6H, First dose on Thu10/21/23 at 0830, Until Discontinued, Hold for HR less than 60 or SBP below 100 and notify service if dose is held 0817 (Given - Provid er: Alicia Euceda RN)1200 (Given - Provider: Alicia Euceda RN)1725 (Given - Provider: Alicia Euceda RN) dilTIAZem (Cardizem) inj 20 mg (COMPLETED) 20 mg, IV Push, ONCE, On Thu10/20/23 at 1745, For 1 dose 1823 (Given - Provider: Winnie Granda RN) doxycycline tab 100 mg 100 mg, Oral, Q12H, First dose on Thu10/21/23 at 2100, Last dose on Thu10/26/23 at 0900, For 5 days Furosemide (Lasix) inj 40 mg 40 mg, IV Push, BID (0900, 1600), First dose on Thu10/21/23 at 0900, Until Discontinued 0842 (Given - Provid er: Alicia Euceda RN)1603 (Given - Provider: Alicia Euceda RN) Furosemide (Lasix) inj 60 mg (COMPLETED) 60 mg, IV Push, ONCE, On Thu10/20/23 at 1930, For 1 dose 1924 (Given - Provider: Ronda Gardner RN) ketorolac (Toradol) 15 MG/ML inj 15 mg 15 mg, IV Push, ONCE, On Thu10/21/23 at 1900, For 1 dose 1900 (Due) oxygen GAS Inhalation, OXYGEN, First dose on Thu10/21/23 at 0800, Until Discontinued, Device/Managed by: Low Flow Device, [...] is greater than or equal to 93% 08 (Oxygen On - Provider: Alicia Euceda RN)1600 (Oxygen On - Provider: Alicia Euceda RN) potassium chloride ER tab 20 mEq 20 mEq, Oral, Daily(AM), First dose on Thu10/21/23 at 0900, Until Discontinued 0818 (Given - Provid er: Alicia Euceda RN) potassium chloride ER tab 40 mEq (COMPLETED) 40 mEq, Oral, ONCE, On Thu10/20/23 at 2330, For 1 dose, This med should NOT be Crushed or Chewed 2325 (Given - Provider: Julienne Ya RN) sodium chloride 0.9 % flush peripheral sean 3 mL 3 mL, IV Push, QSHIFT, First dose on Thu10/21/23 at 0000, Until Discontinued, Do not flush if lock, PICC, or central line not in place; IV infusing or unable to flush. 2326 (Given - Provider: Julienne Ya RN) 0843 (Given - Provider: Alicia Euceda RN)1605 (Given - Provider: Alicia Euceda RN) PRN Medication Order 10/19/2023 10/20/2023 10/21/2023 Acetaminophen (Tylenol) tab 650 mg 650 mg, Oral, Q6H PRN Pain, Mild, Fever >38C(100.5F), Headache, Starting on Thu10/20/23 at 2245, Until Thu10/21/23 at 2037, Maximum of 4 grams (4000 mg) per day. 1330 (Given - Provid er: Alicia Euceda RN - Comment: temp 100.7)1825 (Given - Provider: Alicia Euceda RN - Comment: temp 101.2) house antacid (Mi-Acid II) oral susp 15 mL 15 mL, Oral, Q4H PRN Indigestion, Starting on Thu10/20/23 at 2245, Until Thu10/21/23 at 203, SHAKE WELL melatonin tab 3 mg 3 mg, Oral, HS PRN Insomnia, Starting on Thu10/20/23 at 2245, Until Thu10/21/23 at 2037 ondansetron (Zofran) inj 4 mg 4 mg, IV Push, Q6H PRN Nausea, Starting on Thu10/20/23 at 2245, Until Thu10/21/23 at 2037 oxyCODONE (Oxy IR) tab 5 mg 5 mg, Oral, Q4H PRN Pain, Moderate, Pain, Severe, Starting on Thu10/21/23 at 0322, Until Thu10/21/23 at 2037 0806 (Given - Provid er: Alicia Euceda RN - Comment: 7)1200 (Given - Provider: Alicia Walker, RN)1825 (Given - Provider: Alicia Euceda RN - Comment: Left lower ribs 8) perflutren lipid microsphere inj SUSP 1.956 mg 1.956 mg, Intravenous, ONCE PRN Other, For Echo Only - Suboptimal Echo Images, Starting on Thu10/21/23 at 1220, Until Thu10/21/23 at 1419, For 2 hours, Administer IVP over 45 seconds, Cardiac Studies_HODHOV 1220 (Given - Provid er: Kaleigh Jacobson LPN - Comment: 3ml) sodium chloride 0.9 % flush/inj 3 mL 3 mL, IV Push, PRN Other, Line Patency, Starting on Thu10/20/23 at 2243, Until Thu10/21/23 at 2037, Do not flush if lock, PICC, or central line not in place, IV infusing or unable to flush Trolamine Salicylate (Arthricream) cream Topical, PRN Pain, Mild, Starting on Thu10/21/23 at 1200, Until Thu10/21/23 at 2037, Apply to joint pains 1308 (Given - Provid er: Alicia Euceda RN - Comment: left shooulder) documented in this encounter Additional Health Concerns Infection Onset Date Last Indicated Resolved Time Respiratory Rule-Out 10/20/2023 10/20/2023 023 7:14 PM EST COVID-19 Rule-Out 10/20/2023 10/20/2023 10/20/2023 7:14 PM EST documented as of this encounter [...] the patient have Health Care Power of Evaluation Analyst? No Full Code 07/22/2016 6:01 PM 07/29/2016 8:21 PM This order reflects the patients wishes and were consensually agreed upon. Question Answer Comments Discussion of Advance Directives occurred with: Patient Does the patient have a Living Will? No Does the patient have Health Care Power of Evaluation Analyst? No Full Code 01/22/2015 6:34 AM 01/24/2015 9:44 PM This o rder reflects the patients wishes and were consensually agreed upon. Question Answer Comments Discussion of Advance Directives occurred with: Patient Does the patient have a Living Will? No Does the patient have Health Care Power of Evaluation Analyst? No Care Teams Refinery Operator Light Ends Recovery Relationship Specialty Start Date End Date Lucie Montero DO [address] [place] [address] PCP - General Family Medicine 10/08/23 documented as of this encounter
--- OUTSIDE RECORDS SUMMARY | 2023-11-12 22:24 | External Medical Summary ---
Author Name Unknown Address Unknown Organization K01:LAB[facility]ATORY [facility] - [address] [facility] [place] [address] Laboratory Report Ordering Provider Test Date Status OSMAR GERARD 10/21/2023 22:55:50 Final ADMITTED patient Observation Date Value Abnormality Reference (Units ) Status Adenovirus DNA [Presence] in Nasopharynx by JOLENE with non-probe detection 10/21/2023 22:55:50 Negative Negative Final Human coronavirus 229E RNA [Presence] in Nasopharynx by JOLENE with non-probe detection 10/21/2023 22:55:50 Negative Negative Final Human coronavirus HKU1 RNA [Presence] in Nasopharynx by JOLENE with non-probe detection 10/21/2023 22:55:50 Negative Negative Final Human coronavirus NL63 RNA [Presence] in Nasopharynx by JOLENE with non-probe detection 10/21/2023 22:55:50 Negative Negative Final Human coronavirus OC43 RNA [Presence] in Nasopharynx by JOLENE with non-probe detection 10/21/2023 22:55:50 Negative Negative Final SARS-CoV-2 (COVID-19) RNA [Presence] in Nasopharynx by JOLENE with non-probe detection 10/21/2023 22:55:50 Negative Negative Final Human metapneumovirus RNA [Presence] in Nasopharynx by JOLENE with non-probe detection 10/21/2023 22:55:50 Negative Negative Final Rhinovirus+Enterovirus RNA [Presence] in Nasopharynx by JOLENE with non-probe detection 10/21/2023 22:55:50 Negative Negative Final Influenza virus A RNA [Presence] in Nasopharynx by JOLENE with non-probe detection 10/21/2023 22:55:50 Negative Negative Final Influenza virus B RNA [Presence] in Nasopharynx by JOLENE with non-probe detection 10/21/2023 22:55:50 Negative Negative Final Parainfluenza virus 1 RNA [Presence] in Nasopharynx by JOLENE with non-probe detection 10/21/2023 22:55:50 Negative Negative Final Parainfluenza virus 2 RNA [Presence] in Nasopharynx by JOLENE with non-probe detection 10/21/2023 22:55:50 Negative Negative Final Parainfluenza virus 3 RNA [Presence] in Nasopharynx by JOLENE with non-probe detection 10/21/2023 22:55:50 Negative Negative Final Parainfluenza virus 4 RNA [Presence] in Nasopharynx by JOLENE with non-probe detection 10/21/2023 22:55:50 Negative Negative Final Respiratory syncytial virus RNA [Presence] in Nasopharynx by JOLENE with non-probe detection 10/21/2023 22:55:50 Negative Negative Final Bordetella pertussis.pertussis toxin promoter region [Presence] in Nasopharynx by JOLENE with non-probe detection 10/21/2023 22:55:50 Negative Negative Final Chlamydophila pneumoniae DNA [Presence] in Nasopharynx by JOLENE with non-probe detection 10/21/2023 22:55:50 Negative Negative Final Mycoplasma pneumoniae DNA [Presence] in Nasopharynx by JOLENE with non-probe detection 10/21/2023 22:55:50 Negative Negative Final Bordetella parapertussis [id number] DNA [Presence] in Nasopharynx by JOLENE with non-probe detection 10/21/2023 22:55:50 Negative Negative Final
The primers that detect Rhinovirus may cross react with some Enterorviruses. The validation of bronchial specimens, tracheal aspirates, and throats for this assay was developed and performance characteristics determined by [employer]. The validation of alternate specimen types has not been cleared or approved by the U.S. Food and Drug Administration (FDA). It has been determined that such clearance or approval is not necessary. Performing Location [place] [facility] [place] [facility] [address] [facility] [place]. [facility] [address]
--- OUTSIDE RECORDS SUMMARY | 2023-11-12 22:24 | External Medical Summary ---
Author Name Unknown Address Unknown Organization K01:[place] [facility] [place] [address] [facility] [address] Laboratory Report Ordering Provider Test Date Status OSMAR GERARD 10/21/2023 23:40:00 Final Anticoagulation may affect t esting. Refer to [employer] Test Catalog for a list of effects. Observation Date Value Abnormality Reference (Units ) Status aPTT panel - Platelet poor plasma 10/21/2023 23:40:00 24 21-38 (seconds) Final Performing Location [place] [facility] [place] [address] [facility] [address]
--- OUTSIDE RECORDS SUMMARY | 2023-11-12 22:24 | External Medical Summary ---
Author Name Unknown Address Unknown Organization K01:[place] [facility] [place] [address] [place] [address] Laboratory Report Ordering Provider Test Date Status CHANTEOLIVIARICHARDSONIvett 10/22/2023 05:30:00 Final Warfarin Therapy
INR: 2 .0-3.0 conventional anticoagulation
INR: 2.5- 3.5 high intensity anticoagulation Observation Date Value Abnormality Reference (Units ) Status PT 10/22/2023 05:30:00 15.5 Above high normal 11 .6-15.2 (seconds) Final INR 10/22/2023 05:30:00 1.2 0.8-1.2 Final Performing Location [place] [facility] [place] [address] [place] [address]
--- OUTSIDE RECORDS SUMMARY | 2023-11-12 22:24 | External Medical Summary ---
Author Name Unknown Address Unknown Organization K01:LABORATORY [facility] [place] - [address] [place] [address] Laboratory Report Ordering Provider Test Date Status RICHARDSON GERARDIvett 10/21/2023 23:40:00 Final Observation Date Value Abnormality Reference (Units ) Status Lactic Acid 10/21/2023 23:40:00 1.8 0.4-2.0 (mmol/L) Final Performing Location LABORATORY C - [address] [place] [address]
--- OUTSIDE RECORDS SUMMARY | 2023-11-12 22:24 | External Medical Summary ---
Author Name Unknown Address Unknown Organization K01:[facility]ORY [facility] - [address] [facility] [address] Laboratory Report Ordering Provider Test Date Status OSMAR GERARD 10/21/2023 22:55:50 Final Observation Date Value Abnormality Reference (Units ) Status Color of Urine by Auto 10/21/2023 22:55:50 Light Yellow Colorless, Light Yellow, Yellow, Dark Yellow Final Clarity, Urine 10/21/2023 22:55:50 Clear Clear Final Glucose [Mass/volume] in Urine by Automated test strip 10/21/2023 22:55:50 Negative Negative (mg/dL) Final Bilirubin.total [Presence] in Urine by Automated test strip 10/21/2023 22:55:50 Negative Negative Final Ketones [Mass/volume] in Urine by Automated test strip 10/21/2023 22:55:50 Negative Negative (mg/dL) Final Specific gravity, Urine 10/21/2023 22:55:50 1.012 1.003-1.030 Final Hemoglobin [Presence] in Urine by Automated test strip 10/21/2023 22:55:50 Negative Negative Final pH, Urine 10/21/2023 22:55:50 6.5 5.0-7.5 (Units) Final Protein [Mass/volume] in Urine by Automated test strip 10/21/2023 22:55:50 Trace Abnormal Negative (mg/dL) Final Urobilinogen [Mass/volume] in Urine by Automated test strip 10/21/2023 22:55:50 Normal Normal (mg/dL) Final Nitrite [Presence] in Urine by Automated test strip 10/21/2023 22:55:50 Negative Negative Final Leukocyte esterase [Presence] in Urine by Automated test strip 10/21/2023 22:55:50 Large Abnormal Negative Final RBC, Urine 10/21/2023 22:55:50 0-2 0-2 (/HPF) Final WBC, Urine 10/21/2023 22:55:50 20-29 Abnormal 0-2 (/HPF) Final Bacteria [#/area] in Urine sediment by Microscopy high power field 10/21/2023 22:55:50 0-25 0-25 (/HPF) Final Epithelial cells.renal [#/area] in Urine sediment by Microscopy high power field 10/21/2023 22:55:50 1-4 Abnormal None (/HPF) Final Transitional cells [#/area] in Urine sediment by Microscopy high power field 10/21/2023 22:55:50 1-4 Abnormal None (/HPF) Final CULTURE, URINE - ISINGER 10/21/2023 22:55:50 Final Quantitative urine culture t o be performed Performing Location [place] [facility] [place] [address] [place] [facility] [place], [place] [address]
--- OUTSIDE RECORDS SUMMARY | 2023-11-12 22:24 | External Medical Summary ---
Author Name Unknown Address Unknown Organization K01:[place] [place] [address] [facility] [place]. [facility] [address] Laboratory Report Ordering Provider Test Date Status OSMAR GERARD 10/22/2023 14:04:00 Final Get stat/now aPTT [address] each heparin dose adjustment

Anticoagulation may affect testing. Refer to [facility] Test Catalog for a list of effects. Observation Date Value Abnormality Reference (Units ) Status aPTT panel - Platelet poor plasma 10/22/2023 14:04:00 58 Above high normal 21-38 (seconds) Final Performing Location LAB[facility] [place] - [facility] Stefano Rehman [facility] [address]
--- OUTSIDE RECORDS SUMMARY | 2023-11-12 22:24 | External Medical Summary ---
Author Name Unknown Address Unknown Organization K01:[place] [facility] [place] [address] [facility] [address] Laboratory Report Ordering Provider Test Date Status OSMAR GERARD 10/22/2023 05:30:00 Final Observation Date Value Abnormality Reference (Units ) Status WBC, Total 10/22/2023 05:30:00 9.67 4.00-10.80 (K/uL) Final RBC 10/22/2023 05:30:00 4.75 3.85-5.15 (M/uL) Final Hemoglobin 10/22/2023 05:30:00 14.1 12.0-15.3 (g/dL) Final HCT 10/22/2023 05:30:00 44.2 36.0-45.2 (%) Final MCV 10/22/2023 05:30:00 93.1 81.5-97.5 (fL) Final MCH 10/22/2023 05:30:00 29.7 27.0-34.0 (pg) Final MCHC 10/22/2023 05:30:00 31.9 32.0-36.0 (g/dL) Final RDW 10/22/2023 05:30:00 13.9 11.5-15.5 (%) Final Platelets 10/22/2023 05:30:00 195 140-400 (K/uL) Final MPV 10/22/2023 05:30:00 9.8 6.6-11.1 (fL) Final Nucleated erythrocytes/100 leukocytes [Ratio] in Blood by Automated count 10/22/2023 05:30:00 0 <=0 (/100 WBCs) Final Performing Location [facility] [facility] [place] [address] [place] [address]
--- OUTSIDE RECORDS SUMMARY | 2023-11-12 22:24 | External Medical Summary ---
Author Name Unknown Address Unknown Organization K01:[facility]ORY [facility] - [address] [place] [address] Laboratory Report Ordering Provider Test Date Status JADENOLIVIAGUEVARA 10/21/2023 23:40:00 Final Observation Date Value Abnormality Reference (Units ) Status Phosphate 10/21/2023 23:40:00 3.6 2.5-4.8 (m g/dL) Final Performing Location [facility] - [address] [place] [address]
--- OUTSIDE RECORDS SUMMARY | 2023-11-12 22:24 | External Medical Summary ---
Author Name Unknown Address Unknown Organization K01:LABORATORY C - [address] [place] [address] Laboratory Report Ordering Provider Test Date Status OSMAR GERARD 10/21/2023 23:40:00 Final Observation Date Value Abnormality Reference (Units ) Status BUN 10/21/2023 23:40:00 18 6-20 (mg/dL) Final Creatinine 10/21/2023 23:40:00 0.9 0.5-1.0 (mg/dL) Final Glomerular filtration rate/1.73 sq M.predicted [Volume Rate/Area] in Serum, Plasma or Blood by Creatinine-based formula (CKD-EPI) 10/21/2023 23:40:00 67 >=60 (mL/min) Final eGFR is calculated based on the CKD-EPI 2020 equation SODIUM 10/21/2023 23:40:00 134 Below low normal 135 -146 (mmol/L) Final Potassium 10/21/2023 23:40:00 3.9 3.5-5.1 (m mol/L) Final Cl 10/21/2023 23:40:00 97 Below low normal 98- 107 (mmol/L) Final CO2 10/21/2023 23:40:00 23 22-32 (mmo l/L) Final Anion gap 10/21/2023 23:40:00 14 7-15 (mmol /L) Final Glucose 10/21/2023 23:40:00 124 Above high normal 70 -120 (mg/dL) Final Albumin 10/21/2023 23:40:00 4.2 3.8-5.0 (g /dL) Final AST (Aspartate aminotransferase) 10/21/2023 23:40:00 38 Above high normal 10-35 (U/L) Final Result may be falsely elevat ed due to hemolysis. Alk Phos 10/21/2023 23:40:00 92 35-130 (U/ L) Final Bilirubin, Total 10/21/2023 23:40:00 1.3 Above high no rmal <=1.2 (mg/dL) Final Calcium 10/21/2023 23:40:00 9.5 8.4-10.2 ( mg/dL) Final Protein 10/21/2023 23:40:00 7.6 6.0-8.3 (g /dL) Final ALT (Alanine aminotransferase) 10/21/2023 23:40:00 23 10-35 (U/L) Fredrick babcock Performing Location LABORATORY [facility] [place] [address] [facility] [address]
--- OUTSIDE RECORDS SUMMARY | 2023-11-12 22:24 | External Medical Summary | Summary of Care ---
Author Name Unknown Organization [facility] Address [address] [facility] [place] [address] Phone [phone] Care Team Providers Care Office Helper Clerical Name Role Phone MaricarmenLucie suh Cecilia NAILS Primary Care Provider + [phone] Reason for Visit * Reason Onset Date Comments Test Results 10/20/2023 Unexpected or In determinate Result Encounter Details Date Type Department Care Team (Late st Contact Info) Description [facility] Eugenia Fregoso [address] [place] [address] [place] [phone] Clifton Lee PA-C [address] [place] [address] Test Results (Unexpected or Indeterminate ... Allergies Active Allergy Reactions Criticality Noted Date [...] No 07/22/2016 documented as of this encounter Miscellaneous Notes * Telephone Encounter - Saleem Cortes LPN - 10/22/2023 11:12 AM EST Noted * Telephone Encounter - Saleem Cortes LPN - 10/21/2023 10:26 AM EST To treating provider did you review this * Telephone Encounter - Margaux Kennedy OSA - 10/20/2023 3:10 PM EST Hello- The radiologist discovered an unexpected or indeterminate finding on Ramona Stringer ([id number]) and asks that you review the following report. Study Type: XR CHEST 2 VIEWS Date of Study: 10/20/2023 IMPRESSION 1. Mildly enlarged cardiac silhouette, new since the prior chest x-ray. The differential diagnosis includes cardiomegaly secondary to congestive heart failure or pericardial effusion. Please correlate clinically. 2. Mild pulmonary edema. Probable trace bilateral pleural effusions. Please respond to this encounter to acknowledge receipt of this message and take responsibility to ensure this report is reviewed. Thank you, WILL Mdarid Client Service Rep [facility] documented in this encounter Plan of Treatment Upcoming Encounters Date Type Department Care Team (Late st Contact Info) Description 11/13/2023 9:45 AM EST Office Visit Cardiology, [facility] [address] [facility] [place] [address] Maggie Melendez, [address] [facility] [place] [address] 12/10/2023 2:20 PM EST Office Visit Family Practice [address] [facility] [address] [facility] [place] [phone] Lucie Montero DO [address] [facility] [place] [address] 12/24/2023 2:00 PM EST Nurse Only Ancillary [address] [facility] [address] [facility] [place] [address] College, Nurse Annual Wellness Visit [address] [facility] [address] [facility], [place] [address] 09/30/2024 2:30 PM EST Office Visit Otolaryngology [facility] [address] [place] [address] Femi Bal, [address] [place] [address] Health Maintenance Due Date Last Done Comments [...] the patient have Health Care Power of Documentation Lead? No Full Code 07/22/2016 6:01 PM 07/29/2016 8:21 PM This order reflects the patients wishes and were consensually agreed upon. Question Answer Comments Discussion of Advance Directives occurred with: Patient Does the patient have a Living Will? No Does the patient have Health Care Power of Documentation Lead? No Full Code 01/22/2015 6:34 AM 01/24/2015 9:44 PM This o rder reflects the patients wishes and were consensually agreed upon. Question Answer Comments Discussion of Advance Directives occurred with: Patient Does the patient have a Living Will? No Does the patient have Health Care Power of Documentation Lead? No Care Teams Office Helper Clerical Relationship Specialty Start Date End Date Lucie Montero DO [address] [place] [address] PCP - General Family Medicine 10/08/23 documented as of this encounter
--- OUTSIDE RECORDS SUMMARY | 2023-11-12 22:24 | External Medical Summary ---
Author Name Unknown Address Unknown Organization K01:[place] [facility] [place] [address] [facility] [address] Laboratory Report Ordering Provider Test Date Status OSMAR GERARD 10/22/2023 05:30:00 Final Observation Date Value Abnormality Reference (Units ) Status BUN 10/22/2023 05:30:00 19 6-20 (mg/dL) Final Creatinine 10/22/2023 05:30:00 0.9 0.5-1.0 (mg/dL) Final Glomerular filtration rate/1.73 sq M.predicted [Volume Rate/Area] in Serum, Plasma or Blood by Creatinine-based formula (CKD-EPI) 10/22/2023 05:30:00 70 >=60 (mL/min) Final eGFR is calculated based on the CKD-EPI 2020 equation SODIUM 10/22/2023 05:30:00 137 135-146 (m mol/L) Final Potassium 10/22/2023 05:30:00 3.6 3.5-5.1 (m mol/L) Final Cl 10/22/2023 05:30:00 99 98-107 (mm ol/L) Final CO2 10/22/2023 05:30:00 23 22-32 (mmo l/L) Final Anion gap 10/22/2023 05:30:00 15 7-15 (mmol /L) Final Glucose 10/22/2023 05:30:00 114 70-120 (mg /dL) Final Calcium 10/22/2023 05:30:00 9.1 8.4-10.2 ( mg/dL) Final Performing Location [facility] [facility] [place] [address] [place] [address]
--- OUTSIDE RECORDS SUMMARY | 2023-11-12 22:24 | External Medical Summary ---
Author Name Unknown Address Unknown Organization K01:LABORATORY [facility] [place] - [facility] [address] [facility] [place]. [facility] [address] Laboratory Report Ordering Provider Test Date Status OSMAR GERARD 10/21/2023 23:40:00 Final Observation Date Value Abnormality Reference (Units ) Status Heparin, unfractionated level 10/21/2023 23:40:00 0.81 Above high normal <0.10 (IU/mL) Final Unfractionated therapeutic r anges for Anti Xa activity:
For Cardiac/Neurologic treatment: 0.3 to 0.6 IU/mL.
For treatment of DVT or Pulmonary Embolism: 0.3 to 0.7 IU/mL. Performing Location LABORATORY [facility] [place] [address] [facility] [address]
--- OUTSIDE RECORDS SUMMARY | 2023-11-12 22:24 | External Medical Summary ---
Author Name Unknown Address Unknown Organization K01:[place] [facility] [place] [address] [facility] [place]. [facility] [address] Laboratory Report Ordering Provider Test Date Status OSMAR GERARD 10/22/2023 23:20:00 Final Get stat/now aPTT [address] each heparin dose adjustment

Anticoagulation may affect testing. Refer to [facility] Test Catalog for a list of effects. Observation Date Value Abnormality Reference (Units ) Status aPTT panel - Platelet poor plasma 10/22/2023 23:20:00 73 Above high normal 21-38 (seconds) Final Performing Location [facility] [facility] [place] [facility] Stefano Rehman [facility] [address]
--- OUTSIDE RECORDS SUMMARY | 2023-11-12 22:24 | External Medical Summary ---
Author Name Unknown Address Unknown Organization K01:LABORATORY [facility] [place] - [address] [place] [address] Laboratory Report Ordering Provider Test Date Status OSMAR GERARD 10/21/2023 22:55:50 Final Observation Date Value Abnormality Reference (Units) Status Bacteria identified in Specimen by Culture 10/21/2023 22:55:50 No significant growth Final Test: Culture, Urine, Quanti tative
Specimen Source: Urine, Clean Catch
Specimen Type: Urine
Specimen Date: 10/21/2023 10:55 PM
Result Date: 10/22/2023 5:47 PM
Result Status: Final result
Resulting Lab: LABORATORY [facility] [place]
[address]
[place] [id number]

CULTURE

No significant growth

null Performing Location LABORATORY [facility] [place] - [address] [facility] [address]
--- OUTSIDE RECORDS SUMMARY | 2023-11-12 22:24 | External Medical Summary ---
Author Name Unknown Address Unknown Organization K01:[facility] [place] - [address] [facility] [place]. [facility] [address] Laboratory Report Ordering Provider Test Date Status OSMAR GERARD 10/22/2023 05:30:00 Final Get stat/now aPTT [address] each heparin dose adjustment

Anticoagulation may affect testing. Refer to [facility] Test Catalog for a list of effects. Observation Date Value Abnormality Reference (Units ) Status aPTT panel - Platelet poor plasma 10/22/2023 05:30:00 36 21-38 (seconds) Final Performing Location [facility] [place] - [facility] [address] [place] [facility] [address]
--- OUTSIDE RECORDS SUMMARY | 2023-11-12 22:25 | External Medical Summary | Summary of Care ---
Author Name Unknown Organization [facility] Address [address] [facility] [place] [address] Phone [phone] Care Team Providers Care Aquacultural Worker Supervisor Name Role Phone Lucie Montero DO Primary Care Provider + [phone] Reason for Visit * Reason Comments Short of Breath Other Wheezing Encounter Details Date Type Department Care Team (Late st Contact Info) Description 10/20/2023 3:45 PM EST Convenient Care Visit [facility], [address] [place] [address] Clifton Lee PA-C [address] [place] [address] SOB (shortness of breath)*; Atrial fibrillation, unspecified type (HCC) Allergies Active Allergy Reactions Criticality Noted Date Comments Beta Adrenergic Blockers Other (Please comment) 11/28/2021 Made heart worse Citalopram Unknown 11/17/2022 Digoxin Psych complications 01/22/2015 aggitated Other reaction(s): ineffective, Palpitations, psychologically caused depression caused depression Bisacodyl 06/17/2016 Triggered an episode of afib Iodinated Contrast Media Rash 07/06/2013 Iodine Rash 11/28/2021 Lisinopril Edema face/lips/tongue High 01/22/2015 Losartan 06/24/2021 Metoprolol 11/03/2014 (toprol) Per pt., made heart "pound" Sotalol 02/25/2013 Pseudoephedrine Tachycardia High 10/06/2023 Causes afib and led to admit to hospital documented as of this encounter (statuses as of 10/20/2023) Medications Medication Sig Dispensed Refills Start Date End Date Status Cholecalciferol 25 MCG (1000 UT) Oral Capsule Take by mouth . 0 Active Ascorbic Acid 1000 MG Oral Tablet Take by mouth . 0 Activ e Multivitamin Adult Extra C Oral Tablet Chewable [...] Pain, Severe. 30 Tablet 0 09/15/2023 Active Montelukast Sodium 10 MG Oral Tablet (Singulair) TAKE 1 TABLET BY MOUTH EVERY DAY IN THE MORNING 90 Tablet 1 10/06/2023 Active Additional Information Patient not taking.Reported on 10/08/2023 Atenolol 25 MG Oral Tablet (Tenormin) Take 0.5-1 Tablets by mouth in the morning. 0 Active Eliquis 5 MG Oral Tablet Take 1 Tablet by mouth in the morning and 1 Tablet before bedtime. 0 10/05/2023 Active Zinc 50 MG Oral Tablet Take 1 Tablet by mouth daily. 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 08/06/2016 07/10/2022 Anemia 07/22/2016 12/03/2018 Encounter for mastoidectomy cavity debridement 05/13/2015 05/13/2015 A-fib 01/22/2015 12/03/2018 Pulmonary edema 01/22/2015 11/08/2020 Respiratory failure with hypoxia 01/22/2015 12/03/2018 Palpitations 02/01/2013 12/03/2018 ENDOCRINE ANOMALY (THYROID) 05/29/2010 05/07/2020 MIXED HEARING LOSS, UNILATERAL,LEFT 05/28/2010 05/07/2020 SLEEP APNEA, UNSPECIFIED 10/2014 HYPERTENSION, ESSENTIAL NOS (G) 12/03/2018 NONALLERGIC RHINITIS 019 Atrial fibrillation 12/03/19 19 documented as of this encounter (statuses as of 10/20/2023) Immunizations Name Administration Dates Next Due PPD 05/07/2020 documented as of this encounter Social History Tobacco Use Types Packs/Day Years Used Date Smoking Tobacco: Never Passive Smoke Exposure: Past Smokeless Tobacco: Never Comments:no passive smoke ex posures Alcohol Use Standard Drinks/Week Comments Not Currently 0 (1 standard drink = 0.6 oz pur e alcohol) rarely PHQ-2 Answer Date Recorded PHQ Adult Total Score 0 10/06/2023 Hunger Vital Sign Answer Date Recorded Within the past 12 months, y ou worried that your food would run out before you got the money to buy more. Never true 10/06/20 23 Within the past 12 months, t he food you bought just didn't last and you didn't have money to get more. Never true 10/06/2023 Sex and Gender Information Value Date Recorded Sex Assigned at Female 11/17/2022 1:01 PM EST Gender Identity Female 11/17/2022 1:01 PM EST Sexual Orientation Straight 11/17/2022 1: 01 PM EST Job Start Date Occupation Industry Not on file Not on file Not on file documented as of this encounter Last Filed Vital Signs Vital Sign Reading Time Taken Comments Blood Pressure 128/86 10/20/2023 1:26 PM EST Pulse 96 10/20/2023 1:26 PM EST Temperature 37.4 C (99.4 F) 10/20/2023 1:26 PM ES T Respiratory Rate 20 10/20/2023 1:26 PM EST Oxygen Saturation 94% 10/20/2023 1:26 PM EST Inhaled Oxygen Concentration - - Weight 111.9 kg (246 lb 12.8 oz) 10/20/2023 1:26 PM EST Height - - Body Mass Index 39.83 10/08/2023 10:26 AM EST documented in this encounter Functional [...] as of this encounter Progress Notes * Clifton Lee PA-C - 10/20/2023 1:33 PM EST Subjective: Ramona Stringer is a 67 year old female. Chief Complaint Patient presents with Short of Breath Other Wheezing Nursing Notes: April Velasco LPN 10/20/23 1332 Signed Ramona Stringer is a 67 year old female who presents to walk-in clinic today complaining of Chief Complaint Patient presents with Short of Breath Other Wheezing Main Symptoms:Patient presents today for short of breath, wheezing, and worried about possible walking pneumonia, blood pressure different at home and history of A-Fib. Tried: Half of a Atenolol this morning, took a whole Atenolol over the weekend and blood pressure went to 70/40. Pt accompanied by: self HPI: IN AND OUT OF A.fib for PAST 4-5 DAYS; TODAY MORE IN IT AND MORE SOB WITH ANY ACTIVITY; NO CHEST PAIN; NO PRESSURE; NO N/V; NO INCREASE COUGH BUT FELT A LITTLE WHEEZY THIS MORNING. ; NO FEVERS; NO URI SYMPTOMS; HAS TAKEN HER ATENOLOL DIRECTED; OVER THE WEEKEND TOOK A WHOLE ATENOLOL BUT IT MADE HER BP DROP TO 70/40; All other systems reviewed and are negative. 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 Ascorbic Acid 1000 MG Oral Tablet Take by mouth . Multivitamin Adult Extra C Oral Tablet Chewable Take by mouth . Baclofen 10 MG Oral Tablet (Lioresal) TAKE 1 TAB BY MOUTH 2 TIMES A DAY NEEDED FOR CRAMPING OR MUSCLE SPASMS. 60 Tablet 1 Bumetanide 1 MG Oral Tablet (Bumex) TAKE 1 TAB BY MOUTH IN THE MORNING. TAKE ONE EXTRA TAB DAILY ASNEEDED FOR WEIGHT GAIN DIRECTED 180 Tablet 1 HYDROcodone-Acetaminophen 7.5-325 MG Oral Tablet Take 1 Tablet by mouth every 8 hours as needed forPain, Breakthrough or Pain, Severe. 30 Tablet 0 Atenolol 25 MG Oral Tablet (Tenormin) Take 0.5-1 Tablets by mouth in the morning. Zinc 50 MG Oral Tablet Take 1 Tablet by mouth daily. Potassium Chloride Jihan ER 10 MEQ Oral Tablet Extended Release (Klor-Con M10) TAKE 2 TABLETS BY MOUTH EVERY DAY (Patient taking differently: Take 2 Tablets by mouth daily at noon. TAKE 2 TABLETS BY MOUTH EVERY DAY) 180 Tablet 1 Allopurinol 300 MG Oral Tablet (Zyloprim) Take 1 Tablet by mouth in the morning. (Patient not taking: Reported on 09/29/2023) 90 Tablet 3 hydroCHLOROthiazide 12.5 MG Oral Capsule (Hydrodiuril) Take 1 Capsule by mouth in the morning. (Patient not taking: Reported on 09/29/2023) 90 Capsule 3 Montelukast Sodium 10 MG Oral Tablet (Singulair) TAKE 1 TABLET BY MOUTH EVERY DAY IN THE MORNING (Patient not taking: Reported on 10/08/2023) 90 Tablet 1 Eliquis 5 MG Oral Tablet Take 1 Tablet by mouth in the morning and 1 Tablet before bedtime. (Patient not taking: Reported on 10/08/2023) No current facility-administered medications for this visit. Review of patient's allergies indicates: Allergen Reactions [...] (toprol) Per pt., made heart "pound" Sotalol OBJECTIVE: BP 128/86 | Pulse 96 | Temp 37.4 C (99.4 F) (Tympanic) | Resp 20 | Wt 111.9 kg (246 lb 12.8 oz)| SpO2 94% | BMI 39.83 kg/m | BSA 2.28 m Review of Systems: See HPI. All other systems reviewed and are negative. PHYSICAL EXAM: General: alert, healthy, and no distress; QUICKLY FATIGUED GETTING FROM CHAIR TO EXAM TABLE BUT RESOLVES JUST QUICK. Head: Normocephalic, No masses, lesions, tenderness or abnormalities Eye Exam: PERRLA, extraocular movements intact, conjunctiva are pink and non- injected, sclera clear Heart: regular rate & IRREGULAR rhythm, no murmur, and no gallops Lungs: chest symmetric with normal AP diameter, no chest deformities noted, no chest wall tenderness, lungs clear to auscultation; NO WHEEZE; NO RHONCHI Extremities: less than 2 second capillary refill, no joint deformities, effusion, or inflammation; NO EDEMA . ASSESSMENT/PLAN: SOB (shortness of breath) (Primary) - EKG; Future; Expected date: 10/20/2023 - XR CHEST 2 VIEWS Atrial fibrillation, unspecified type (HCC) - EKG; Future; Expected date: 10/20/2023 - XR CHEST 2 VIEWS 15:27 - SAW THE RADIOLOGIST REPORT CAME BACK - TTed DR. JORGE DOMINIQUE, [facility] AND EXPLAINED IT ALLTO HIM; GIVEN RADIOLOGIST FINDINGS SHOULD BE SEEN IN AN ER TO MAKE SURE NOTHING ELSE MORE IS GOING ON WITH SOME LABS. 15:39 - SPOKE WITH PATIENT TO FINDINGS ON XR AND SHE WILL GO TO [facility] Clifton Lee PA-C 10/20/23 documented in this encounter Nursing Notes * April Velasco LPN - 10/20/2023 1:29 PM EST Ramona Stringer is a 67 year old female who presents to walk-in clinic today complaining of Chief Complaint Patient presents with Short of Breath Other Wheezing Main Symptoms:Patient presents today for short of breath, wheezing, and worried about possible walking pneumonia, blood pressure different at home and history of A-Fib. Tried: Half of a Atenolol this morning, took a whole Atenolol over the weekend and blood pressure went to 70/40. Pt accompanied by: self documented in this encounter Plan of Treatment Upcoming Encounters Date Type Department Care Team (Late st Contact Info) Description 11/13/2023 9:45 AM EST Office Visit Cardiology, [facility] [address] [facility] [place] [address] Maggie Melendez, DO [address] [facility] [place] [address] 12/10/2023 2:20 PM EST Office Visit Family Practice [address] [facility] [address] [facility] [place] [address] Lucie Montero, DO [address] [place] [address] 12/24/2023 2:00 PM EST Nurse Only Ancillary [address] [facility] [address] [facility], [place] [address] College, Nurse Annual Wellness Visit [address], [place] [address] 09/30/2024 2:30 PM EST Office Visit Otolaryngology [facility] [address] [facility] [place] [address] Femi Bal, DO [address] [facility] [place] [address] Scheduled Orders Name Type Priority Associated Diagnoses Orde r Schedule EKG EKG Routine SOB (shortness of breath) Atrial fibrillation, unspecified type (HCC) Expected: 10/20/2023 (Approximate), Expires: 2024 Health Maintenance Due Date Last Done Comments COVID-19 Vaccine (#1) 05/20/1956 Pneumococcal Vaccine: 65+ Years (1 - PCV) 1960 DTaP,Tdap,and Td Vaccines (1 - Tdap) 1973 Mammogram 1994 Zoster Vaccines (1 of 2) 2004 COLONOSCOPY-EVERY 5 YRS AGES 18-100 06/24/2021 06/24/2016, 06/24/2016 Influenza Vaccine (FLU shot) (#1) 2023 GFR 05/18/2024 05/18/2023, 08/27, 07/10/2022, Additional history exists Depression Screening 10/08/2024 10/08/2023, 01/30/2015 (Declined) Albumin/Creatinine Ratio 05/18/2026 05/18/2023 Diabetes Screening 05/18/2026 05/18/2023, 0 07/10/2022, 07/10/2022, Additional history exists Lipid Panel 05/18/2028 05/18/2023, 01/24, 08/26/2019, Additional history exists DXA Scan Discontinued GARDASIL-HPV [...] Name Priority Date/Time Associated Diagnosis Comments XR CHEST 2 VIEWS STAT 10/20/2023 2:24 PM EST SOB (shortness of breath) Atrial fibrillation, unspecified type (HCC) documented in this encounter Results * XR CHEST 2 VIEWS (10/20/2023 2:24 PM EST) Anatomical Region Laterality Modality Chest Digital Radiogra phy 10/20/2023 2:46 PM EST Impressions 10/20/2023 2:44 PM EST IMPRESSION 1. Mildly enlarged cardiac silhouette, new since the prior chest x-ray. The differential diagnosis includes cardiomegaly secondary to congestive heart failure or pericardial effusion. Please correlate clinically. 2. Mild pulmonary edema. Probable trace bilateral pleural effusions. Narrative 10/20/2023 2:44 PM EST EXAM XR CHEST 2 VIEWS-10/20/2023 2:24 pm HISTORY SOB; Hx of A.fib COMPARISON Chest x-ray dated 10/20/2017 TECHNIQUE Chest x-ray PA and lateral views FINDINGS There is new mildly enlarged cardiac silhouette since the prior chest x-ray. Mild increased interstitial lung markings noted bilaterally. Mild blunting of the costophrenic angles noted. Degenerative changes of the thoracic spine noted. Procedure Note Caity Davila MD - 10/20/2023 EXAM XR CHEST 2 VIEWS-10/20/2023 2:24 pm HISTORY SOB; Hx of A.fib COMPARISON Chest x-ray dated 10/20/2017 TECHNIQUE Chest x-ray PA and lateral views FINDINGS There is new mildly enlarged cardiac silhouette since the prior chestx-ray. Mild increased interstitial lung markings noted bilaterally. Mildblunting of the costophrenic angles noted. Degenerative changes of thethoracic spine noted. IMPRESSION IMPRESSION 1. Mildly enlarged cardiac silhouette, new since the prior chest x-ray.The differential diagnosis includes cardiomegaly secondary to congestiveheart failure or pericardial effusion. Please correlate clinically. 2. Mild pulmonary edema. Probable trace bilateral pleural effusions. Clifton Lee PA-C RADIOLOGY (RAD GENER[facility]) documented in this encounter Visit Diagnoses Diagnosis SOB (shortness of breath)- Primary Shortness of breath Atrial fibrillation, unspecified type (HCC) documented in this encounter Advance Directives Latest Code Status on File Code Status Date Activated Date Inactivated Comments Full Code 07/22/2016 6:01 PM 07/29/2016 8:21 PM This order reflects the patients wishes and were consensually agreed upon. Question Answer Comments Discussion of Advance Directives occurred with: Patient Does the patient have a Living Will? No Does the patient have Health Care Power of Poultry Breeder? No Code Status History Code Status Date Activated Date Inactivated Comments Full Code 01/22/2015 6:34 AM 01/24/2015 9:44 PM This o rder reflects the patients wishes and were consensually agreed upon. Question Answer Comments Discussion of Advance Directives occurred with: Patient Does the patient have a Living Will? No Does the patient have Health Care Power of Poultry Breeder? No Care Teams Aquacultural Worker Supervisor Relationship Specialty Start Date End Date Lucie Montero DO [address] [place] [address] PCP - General Family Medicine 10/08/23 documented as of this encounter
--- OUTSIDE RECORDS SUMMARY | 2023-11-12 22:25 | External Medical Summary ---
Author Name Unknown Address Unknown Organization K1G:LABORATORY [facility] - [address] [place] [phone] Laboratory Report Ordering Provider Test Date Status EMIL AMBROCIO 10/20/2023 17:11:02 Final Observation Date Value Abnormality Reference (Units ) Status BUN 10/20/2023 17:11:02 16 6-20 (mg/dL) Final Creatinine 10/20/2023 17:11:02 0.7 0.5-1.0 (mg/dL) Final Glomerular filtration rate/1.73 sq M.predicted [Volume Rate/Area] in Serum, Plasma or Blood by Creatinine-based formula (CKD-EPI) 10/20/2023 17:11:02 >90 >=60 (mL/min) Final eGFR is calculated based on the CKD-EPI 2020 equation SODIUM 10/20/2023 17:11:02 139 135-146 (m mol/L) Final Potassium 10/20/2023 17:11:02 3.6 3.5-5.1 (m mol/L) Final Cl 10/20/2023 17:11:02 99 98-107 (mm ol/L) Final CO2 10/20/2023 17:11:02 24 22-32 (mmo l/L) Final Anion gap 10/20/2023 17:11:02 16 Above high normal 7- 15 (mmol/L) Final Glucose 10/20/2023 17:11:02 122 Above high normal 70 -120 (mg/dL) Final Calcium 10/20/2023 17:11:02 9.5 8.4-10.2 ( mg/dL) Final Performing Location LABORATORY [facility] - [address] [facility] [address]
--- OUTSIDE RECORDS SUMMARY | 2023-11-12 22:25 | External Medical Summary ---
Author Name Unknown Address Unknown Organization K1G:LABORATORY [address] [address] Laboratory Report Ordering Provider Test Date Status ASHLEY MOORE 10/21/2023 14:57:00 Final Observation Date Value Abnormality Reference (Units ) Status Bacteria identified in Specimen by Culture 10/21/2023 14:57:00 No growth Final Test: Culture, Blood (Site 2)
Specimen Source: Blood, Venous
Specimen Type: Blood
Specimen Date: 10/21/2023 2:57 PM
Result Date: 10/26/2023 4:01 PM
Result Status: Final result
Resulting Lab: LABORATORY [facility]
[address] [place] [address]
[facility] [address]

CULTURE

No growth

null Performing Location LABORATORY [facility] - [address] [place] [phone]
--- OUTSIDE RECORDS SUMMARY | 2023-11-12 22:25 | External Medical Summary ---
Author Name Unknown Address Unknown Organization K01:[facility]ORY [facility] [place] [address] [facility] [address] [facility] [address] Laboratory Report Ordering Provider Test Date Status ASHLEY MOORE 10/21/2023 05:38:00 Final Observation Date Value Abnormality Reference (Units ) Status TSH 10/21/2023 05:38:00 1.56 0.27-4.20 (uIU/mL) Final Performing Location LAB[facility] - [address] [facility] [address]
--- OUTSIDE RECORDS SUMMARY | 2023-11-12 22:25 | External Medical Summary ---
Author Name Unknown Address Unknown Organization K1G:LABORATORY [facility] - [address] [facility] [address] Laboratory Report Ordering Provider Test Date Status JACQUES STARK 10/20/2023 17:11:02 Final Observation Date Value Abnormality Reference (Units ) Status Magnesium 10/20/2023 17:11:02 2.0 1.5-2.6 (m g/dL) Final Performing Location LABORATORY [facility] - [address] [facility] [address]
--- OUTSIDE RECORDS SUMMARY | 2023-11-12 22:25 | External Medical Summary ---
Author Name Unknown Address Unknown Organization K1G:LABORATORY [facility] - [address] [place] [phone] Laboratory Report Ordering Provider Test Date Status EMIL AMBROCIO 10/20/2023 17:11:02 Final Observation Date Value Abnormality Reference (Units ) Status WBC, Total 10/20/2023 17:11:02 12.23 Above high normal 4 .00-10.80 (K/uL) Final RBC 10/20/2023 17:11:02 4.79 3.85-5.15 (M/uL) Final Hemoglobin 10/20/2023 17:11:02 14.5 12.0-15.3 (g/dL) Final HCT 10/20/2023 17:11:02 43.3 36.0-45.2 (%) Final MCV 10/20/2023 17:11:02 90.4 81.5-97.5 (fL) Final MCH 10/20/2023 17:11:02 30.3 27.0-34.0 (pg) Final MCHC 10/20/2023 17:11:02 33.5 32.0-36.0 (g/dL) Final RDW 10/20/2023 17:11:02 14.0 11.5-15.5 (%) Final Platelets 10/20/2023 17:11:02 236 140-400 (K /uL) Final MPV 10/20/2023 17:11:02 10.2 6.6-11.1 ( fL) Final Performing Location [facility] [address] [facility] [address]
--- OUTSIDE RECORDS SUMMARY | 2023-11-12 22:25 | External Medical Summary ---
Author Name Unknown Address Unknown Organization K1G:LAB[facility]ORY [facility] - [facility] [address] [facility] [address] Laboratory Report Ordering Provider Test Date Status JACQUES STARK 10/21/2023 05:38:00 Final Observation Date Value Abnormality Reference (Units ) Status WBC, Total 10/21/2023 05:38:00 9.56 4.00-10.8 0 (K/uL) Final RBC 10/21/2023 05:38:00 4.70 3.85-5.15 (M/uL) Final Hemoglobin 10/21/2023 05:38:00 14.2 12.0-15.3 (g/dL) Final HCT 10/21/2023 05:38:00 42.5 36.0-45.2 (%) Final MCV 10/21/2023 05:38:00 90.4 81.5-97.5 (fL) Final MCH 10/21/2023 05:38:00 30.2 27.0-34.0 (pg) Final MCHC 10/21/2023 05:38:00 33.4 32.0-36.0 (g/dL) Final RDW 10/21/2023 05:38:00 14.1 11.5-15.5 (%) Final Platelets 10/21/2023 05:38:00 225 140-400 (K /uL) Final MPV 10/21/2023 05:38:00 9.8 6.6-11.1 ( fL) Final Performing Location [facility] [address] [facility] [address]
--- OUTSIDE RECORDS SUMMARY | 2023-11-12 22:25 | External Medical Summary ---
Author Name Unknown Address Unknown Organization K1G:LABORATORY [facility] - [address] [place] [phone] Laboratory Report Ordering Provider Test Date Status JACQUES STARK 10/21/2023 05:38:00 Final Observation Date Value Abnormality Reference (Units ) Status BUN 10/21/2023 05:38:00 16 6-20 (mg/dL) Final Creatinine 10/21/2023 05:38:00 0.7 0.5-1.0 (mg/dL) Final Glomerular filtration rate/1.73 sq M.predicted [Volume Rate/Area] in Serum, Plasma or Blood by Creatinine-based formula (CKD-EPI) 10/21/2023 05:38:00 90 >=60 (mL/min) Final eGFR is calculated based on the CKD-EPI 2020 equation SODIUM 10/21/2023 05:38:00 140 135-146 (m mol/L) Final Potassium 10/21/2023 05:38:00 3.6 3.5-5.1 (m mol/L) Final Cl 10/21/2023 05:38:00 100 98-107 (mm ol/L) Final CO2 10/21/2023 05:38:00 27 22-32 (mmo l/L) Final Anion gap 10/21/2023 05:38:00 13 7-15 (mmol /L) Final Glucose 10/21/2023 05:38:00 110 70-120 (mg /dL) Final Calcium 10/21/2023 05:38:00 9.6 8.4-10.2 ( mg/dL) Final Performing Location LABORATORY [facility] - [address] [facility] [address]
--- OUTSIDE RECORDS SUMMARY | 2023-11-12 22:25 | External Medical Summary ---
Author Name Unknown Address Unknown Organization K1G:LABORATORY [facility] - [facility] [facility] [address] Laboratory Report Ordering Provider Test Date Status JACQUES STARK 10/21/2023 11:57:44 Final Observation Date Value Abnormality Reference (Units ) Status RBC, Urine 10/21/2023 11:57:44 0-2 0-2 (/HPF) Final WBC, Urine 10/21/2023 11:57:44 0-2 0-2 (/HPF) Final Bacteria [#/area] in Urine sediment by Microscopy high power field 10/21/2023 11:57:44 0-25 0-25 (/HPF) Final Performing Location LABORATORY [facility] - [facility] [facility] [address]
--- OUTSIDE RECORDS SUMMARY | 2023-11-12 22:25 | External Medical Summary ---
Author Name Unknown Address Unknown Organization K1G:LABORATORY [facility] - [address] [place] [phone] Laboratory Report Ordering Provider Test Date Status JACQUES STARK 10/21/2023 05:38:00 Final Observation Date Value Abnormality Reference (Units ) Status Troponin T 10/21/2023 05:38:00 42 Above high normal < =14 (ng/L) Final Performing Location LABORATORY [facility] - [address] [place] [phone]
--- OUTSIDE RECORDS SUMMARY | 2023-11-12 22:25 | External Medical Summary ---
Author Name Unknown Address Unknown Organization K1G:LABORATORY [facility] - [address] [facility] [address] Laboratory Report Ordering Provider Test Date Status JACQUES STARK 10/20/2023 17:11:02 Final Observation Date Value Abnormality Reference (Units ) Status Phosphate 10/20/2023 17:11:02 3.8 2.5-4.8 (m g/dL) Final Performing Location [facility] [address] [facility] [address]
--- OUTSIDE RECORDS SUMMARY | 2023-11-12 22:25 | External Medical Summary | Summary of Care ---
Author Name Unknown Organization [facility] Address [address] [facility] [place] [place] [address] Phone [phone] Care Team Providers Care Reimbursement Coordinator Name Role Phone Lucie Montero DO Primary Care Provider + [phone] Reason for Visit * Reason Onset Date Comments Test Results Imaging Study 10/20/2023 Follow Up 10/20/2023 Encounter Details Date Type Department Care Team (Late st Contact Info) Description 10/20/[address] [place] [address] Clifton Lee PA-C [address] [place] [address] Test Results Imaging Study; Follow Up Allergies Active Allergy Reactions Criticality Noted Date [...] encounter Miscellaneous Notes * Telephone Encounter - Clifton Lee PA-C - 10/20/2023 3:39 PM EST INFORMED PATIENT OF RADIOLOGIST FINDINGS AND THAT IT WAS DISCUSSED WITH ANOTHER DOCTOR AND THAT LABS MAY BE NECESSARY. PATIENT WILLING TO GO TO [facility] AND WILL BE LEAVING WITHIN THE NEXT 5min: documented in this encounter Plan of Treatment Upcoming Encounters Date Type Department Care Team (Late st Contact Info) Description 11/13/2023 9:45 AM EST Office Visit Cardiology, [facility] 132 [facility] [place] [address] Maggie Melendez, DO [address] [place] [address] 12/10/2023 2:20 PM EST Office Visit Family Practice 65 [facility] 293 [place] [address] Lucie Montero, DO 293 [place] [address] 12/24/2023 2:00 PM EST Nurse Only Ancillary 65 [facility] 293 [place] [address] College, Nurse Annual Wellness Visit [address] [place] [address] 09/30/2024 2:30 PM EST Office Visit Otolaryngology [facility] 132 [facility] [place] [address] Femi Bal, DO 132 [facility] [place] [address] Health Maintenance Due Date Last Done Comments [...] the patient have Health Care Power of Shipper? No Code Status History Code Status Date Activated Date Inactivated Comments Full Code 01/22/2015 6:34 AM 01/24/2015 9:44 PM This o rder reflects the patients wishes and were consensually agreed upon. Question Answer Comments Discussion of Advance Directives occurred with: Patient Does the patient have a Living Will? No Does the patient have Health Care Power of Shipper? No Care Teams Reimbursement Coordinator Relationship Specialty Start Date End Date Lucie Montero DO 293 [place] [address] PCP - General Family Medicine 10/08/23 documented as of this encounter
--- OUTSIDE RECORDS SUMMARY | 2023-11-12 22:25 | External Medical Summary ---
Author Name Unknown Address Unknown Organization K1G:LABORATORY [facility] - [address] [facility] [address] Laboratory Report Ordering Provider Test Date Status EMIL AMBROCIO 10/20/2023 17:11:02 Final Observation Date Value Abnormality Reference (Units ) Status SYNC LEUKOCYTES IN BLOOD BY AUTOMATED COUNT 10/20/2023 17:11:02 12.23 Above high normal 4.00-10.80 (K/uL) Final Segs 10/20/2023 17:11:02 77.2 Above high normal 40.0-75.0 (%) Final Lymphs % 10/20/2023 17:11:02 11.7 Below low normal 18.0-42.0 (%) Final Monos 10/20/2023 17:11:02 9.8 1.0-11.0 (%) Final Eosinophils 10/20/2023 17:11:02 1.1 0.0-6.0 (%) Final Basos 10/20/2023 17:11:02 0.2 0.0-2.0 (%) Final Absolute Segs 10/20/2023 17:11:02 9.44 Above high normal 1.80-7.70 (K/uL) Final Lymphs, absolute 10/20/2023 17:11:02 1.43 1.00-4.80 (K/ul) Final Monos, Abs 10/20/2023 17:11:02 1.20 Above high normal 0.00-1.10 (K/uL) Final Eos, Abs 10/20/2023 17:11:02 0.13 0.00-0.70 (K/uL) Final Basos, Abs 10/20/2023 17:11:02 0.03 0.00-0.20 (K/uL) Final Performing Location LABORATORY [facility] - [address] [facility] [address]
--- OUTSIDE RECORDS SUMMARY | 2023-11-12 22:25 | External Medical Summary ---
Author Name Unknown Address Unknown Organization K1G:LABORATORY [facility] - [address] [facility] [address] Laboratory Report Ordering Provider Test Date Status JACQUES STARK 10/21/2023 05:38:00 Final Observation Date Value Abnormality Reference (Units ) Status Phosphate 10/21/2023 05:38:00 3.8 2.5-4.8 (m g/dL) Final Performing Location [facility] [address]
--- OUTSIDE RECORDS SUMMARY | 2023-11-12 22:25 | External Medical Summary ---
Author Name Unknown Address Unknown Organization K1G:LABORATORY [facility] - [address] [place] [id number] Laboratory Report Ordering Provider Test Date Status JACQUES STARK 10/20/2023 23:22:37 Final Observation Date Value Abnormality Reference (Units ) Status Troponin T 10/20/2023 23:22:37 45 Above high normal < =14 (ng/L) Final Performing Location LABORATORY [facility] - [address] [place] [id number]
--- OUTSIDE RECORDS SUMMARY | 2023-11-12 22:25 | External Medical Summary | Summary of Care ---
Author Name Unknown Organization [facility] Address [address] [place] [address] Phone [phone] Care Team Providers Care Maternity Floor Supervisor Name Role Phone Lucie Montero DO Primary Care Provider + [phone] Reason for Visit * Reason Comments Short of Breath Other Wheezing Encounter Details Date Type Department Care Team (Late st Contact Info) Description 10/20/2023 3:45 PM EST Convenient Care Visit [facility], [address] [place] [address] Clifton Lee PA-C [address] [place] [address] SOB (shortness of breath)*; Atrial fibrillation, unspecified [...] (BMI) of 40.0 to 44.9 in adult ([facility]) Z68.41 Current Outpatient Medications Medication Sig Dispense [...] CAME BACK - TTed DR. JORGE DOMINIQUE, [facility] AND EXPLAINED IT ALLTO HIM; GIVEN RADIOLOGIST FINDINGS SHOULD BE SEEN IN AN ER TO MAKE SURE NOTHING ELSE MORE IS GOING ON WITH SOME LABS. 15:39 - SPOKE WITH PATIENT TO FINDINGS ON XR AND SHE WILL GO TO [facility] Clifton Lee PA-C 10/20/23 documented in this encounter Nursing Notes * France Gomes LPN - 10/20/2023 7:22 PM EST Ekg performed as per provider order. Patient identified by name and . Hard copy of EKG provided to Clifton HI for review. EKG transmitted for cardiology reading and review. * April Velasco LPN - 10/20/2023 1:29 [...] 11/13/2023 9:45 AM EST Office Visit Cardiology, [facility] 132 [facility] [place] [address] Maggie Melendez 400 [facility] [place] [address] 12/10/2023 2:20 PM EST Office Visit Family Practice 65 [facility] 293 [place] [address] Lucie Montero DO 293 [facility], [place] [address] 12/24/2023 2:00 PM EST Nurse Only Ancillary 65 [facility] 293 [facility], [place] [address] College, Nurse Annual Wellness Visit [facility] [address] [place] [address] 09/30/2024 2:30 PM EST Office Visit Otolaryngology [facility] [address] [place] [address] Femi Bal, [address] [place] [address] Scheduled Orders Name Type Priority Associated Diagnoses [...] Depression Screening 10/08/2024 10/08/2023, 01/30/2015 (Declined) GFR 10/20/2024 10/20/2023, 04/26, 09/21/2022, Additional history exists Albumin/Creatinine Ratio 05/18/2026 05/18/2023 Diabetes Screening 10/20/2026 10/20/2023, 0 05/18/2023, 07/10/2022, Additional history exists Lipid Panel 05/18/2028 [...] unspecified type (HCC) documented in this encounter Additional Health Concerns [...] the patient have Health Care Power of Concrete Pile Driver Operator? No Code Status History Code Status Date Activated Date Inactivated Comments Full Code 01/22/2015 6:34 AM 01/24/2015 9:44 PM This o rder reflects the patients wishes and were consensually agreed upon. Question Answer Comments Discussion of Advance Directives occurred with: Patient Does the patient have a Living Will? No Does the patient have Health Care Power of Concrete Pile Driver Operator? No Care Teams Maternity Floor Supervisor Relationship Specialty Start Date End Date Lucie Montero DO [address] [place] [address] PCP - General Family Medicine 10/08/23 documented as of this encounter
--- OUTSIDE RECORDS SUMMARY | 2023-11-12 22:25 | External Medical Summary ---
Author Name Unknown Address Unknown Organization K01:[facility]ORY [facility] [address] [facility] [address] Laboratory Report Ordering Provider Test Date Status JACQUES STARK 10/21/2023 05:38:00 Final Observation Date Value Abnormality Reference (Units ) Status Triglyceride 10/21/2023 05:38:00 106 <=174 ( mg/dL) Final Triglyceride Reference Range s (mg/dL):
<150 Acceptable
150-174 Borderline high
175-499 High
>=500 Very high Cholesterol 10/21/2023 05:38:00 173 <200 (mg /dL) Final Total Cholesterol Reference Ranges (mg/dL):
<200 Desirable
200-239 Borderline high
>=240 High HDL 10/21/2023 05:38:00 45 Below low normal >49 (mg/dL) Final HDL Cholesterol Reference Ra nges (mg/dL):
>=60 High (Desirable)
<50 Low (Undesirable) For Females
<40 Low (Undesirable) For Males NON-HDL CHOLESTEROL 10/21/2023 05:38:00 128 <=159 (mg/dL) Final Non-HDL Cholesterol Referenc e Range (mg/dL):
<100 Target level for high risk ASCVD patient
<130 Optimal for general population
130-159 Near optimal for general population
160-189 Borderline High
190-219 High
>=220 Very High LDL, (calculated) 10/21/2023 05:38:00 107 <= 129 (mg/dL) Final LDL Cholesterol Reference Ra nges (mg/dL):
<70 Target level for high risk ASCVD patient
<100 Optimal for general population
100-129 Near optimal for general population
130-159 Borderline high
160-189 High
>=190 Very high Performing Location LABORATORY [facility] - [address] [facility] [address]
--- OUTSIDE RECORDS SUMMARY | 2023-11-12 22:25 | External Medical Summary | Summary of Care ---
Author Name Unknown Organization [facility] Address [address] [facility] [place] [address] Phone [phone] Care Team Providers Care Pulpwood Dealer Name Role Phone Lucie Montero DO Primary Care Provider + [phone] Reason for Visit * Reason Comments Short of Breath Other Wheezing Encounter Details Date Type Department Care Team (Late st Contact Info) Description 10/20/2023 3:45 PM EST Convenient Care Visit [facility], [address] [place] [address] Clifton Lee PA-C [address] [place] [address] SOB (shortness of breath)*; Atrial fibrillation, unspecified [...] (BMI) of 40.0 to 44.9 in adult ([facility]) Z68.41 Current Outpatient Medications Medication [...] CAME BACK - TTed DR. JORGE DOMINIQUE, [facility] AND EXPLAINED IT ALLTO HIM; GIVEN RADIOLOGIST FINDINGS SHOULD BE SEEN IN AN ER TO MAKE SURE NOTHING ELSE MORE IS GOING ON WITH SOME LABS. 15:39 - SPOKE WITH PATIENT TO FINDINGS ON XR AND SHE WILL GO TO [facility] Clifton Lee PA-C 10/20/23 documented in this [...] 11/13/2023 9:45 AM EST Office Visit Cardiology, [facility] 132 [facility] [place] [address] Maggie Melendez, DO 400 [facility] [place] [address] 12/10/2023 2:20 PM EST Office Visit Family Practice 65 [facility] 293 [facility] [place] [address] Lucei Montero, DO 293 [place] [address] 12/24/2023 2:00 PM EST Nurse Only Ancillary 65 [facility] 293 [facility], [place] [address] College, Nurse Annual Wellness Visit [address], [place] [address] 09/30/2024 2:30 PM EST Office Visit Otol[facility]ology [facility] 132 [facility] [place] [address] Femi Bal, DO 132 [facility] [place] [address] Scheduled Orders Name Type Priority Associated Diagnoses [...] the patient have Health Care Power of Draw Tender? No Code Status History Code Status Date Activated Date Inactivated Comments Full Code 01/22/2015 6:34 AM 01/24/2015 9:44 PM This o rder reflects the patients wishes and were consensually agreed upon. Question Answer Comments Discussion of Advance Directives occurred with: Patient Does the patient have a Living Will? No Does the patient have Health Care Power of Draw Tender? No Care Teams Pulpwood Dealer Relationship Specialty Start Date End Date Lucie Montero DO 293 [place] [address] PCP - General Family Medicine 10/08/23 documented as of this encounter
--- OUTSIDE RECORDS SUMMARY | 2023-11-12 22:25 | External Medical Summary ---
Author Name Unknown Address Unknown Organization K1G:LABORATORY [facility] - [address] [facility] [address] Laboratory Report Ordering Provider Test Date Status EMIL AMBROCIO 10/20/2023 17:52:37 Final ADMITTED patient Observation Date Value Abnormality Reference (Units ) Status Adenovirus DNA [Presence] in Nasopharynx by JOLENE with non-probe detection 10/20/2023 17:52:37 Negative Negative Final Human coronavirus 229E RNA [Presence] in Nasopharynx by JOLENE with non-probe detection 10/20/2023 17:52:37 Negative Negative Final Human coronavirus HKU1 RNA [Presence] in Nasopharynx by JOLENE with non-probe detection 10/20/2023 17:52:37 Negative Negative Final Human coronavirus NL63 RNA [Presence] in Nasopharynx by JOLENE with non-probe detection 10/20/2023 17:52:37 Negative Negative Final Human coronavirus OC43 RNA [Presence] in Nasopharynx by JOLENE with non-probe detection 10/20/2023 17:52:37 Negative Negative Final SARS-CoV-2 (COVID-19) RNA [Presence] in Nasopharynx by JOLENE with non-probe detection 10/20/2023 17:52:37 Negative Negative Final Human metapneumovirus RNA [Presence] in Nasopharynx by JOLENE with non-probe detection 10/20/2023 17:52:37 Negative Negative Final Rhinovirus+Enterovirus RNA [Presence] in Nasopharynx by JOLENE with non-probe detection 10/20/2023 17:52:37 Negative Negative Final Influenza virus A RNA [Presence] in Nasopharynx by JOLENE with non-probe detection 10/20/2023 17:52:37 Negative Negative Final Influenza virus B RNA [Presence] in Nasopharynx by JOLENE with non-probe detection 10/20/2023 17:52:37 Negative Negative Final Parainfluenza virus 1 RNA [Presence] in Nasopharynx by JOLENE with non-probe detection 10/20/2023 17:52:37 Negative Negative Final Parainfluenza virus 2 RNA [Presence] in Nasopharynx by JOLENE with non-probe detection 10/20/2023 17:52:37 Negative Negative Final Parainfluenza virus 3 RNA [Presence] in Nasopharynx by JOLENE with non-probe detection 10/20/2023 17:52:37 Negative Negative Final Parainfluenza virus 4 RNA [Presence] in Nasopharynx by JOLENE with non-probe detection 10/20/2023 17:52:37 Negative Negative Final Respiratory syncytial virus RNA [Presence] in Nasopharynx by JOLENE with non-probe detection 10/20/2023 17:52:37 Negative Negative Final Bordetella pertussis.pertussis toxin promoter region [Presence] in Nasopharynx by JOLENE with non-probe detection 10/20/2023 17:52:37 Negative Negative Final Chlamydophila pneumoniae DNA [Presence] in Nasopharynx by JOLENE with non-probe detection 10/20/2023 17:52:37 Negative Negative Final Mycoplasma pneumoniae DNA [Presence] in Nasopharynx by JOLENE with non-probe detection 10/20/2023 17:52:37 Negative Negative Final Bordetella parapertussis TP1987 DNA [Presence] in Nasopharynx by JOLENE with non-probe detection 10/20/2023 17:52:37 Negative Negative Final
The primers that detect Rhinovirus may cross react with some Enterorviruses. The validation of bronchial specimens, tracheal aspirates, and throats for this assay was developed and performance characteristics determined by [employer]. The validation of alternate specimen types has not been cleared or approved by the U.S. Food and Drug Administration (FDA). It has been determined that such clearance or approval is not necessary. [facility] LABORATORY [facility] - [address] [facility] [address]
--- OUTSIDE RECORDS SUMMARY | 2023-11-12 22:25 | External Medical Summary | Summary of Care ---
Author Name Unknown Organization [facility] Address [address] [facility] [place] [address] Phone [phone] Care Team Providers Care Asset Card Clerk Name Role Phone Lucie Montero DO Primary Care Provider + [phone] Reason for Visit * Reason Onset Date Comments Test Results 10/20/2023 Unexpected or In determinate Result Encounter Details Date Type Department Care Team (Late st Contact Info) Description 10/20/2023 [facility] [address] Clifton Lee PA-C [facility] [place] [address] Test Results (Unexpected or Indeterminate ... Allergies [...] as of this encounter (statuses as of 10/21/2023) Medications Medication Sig Dispensed Refills Start Date End Date Status Cholecalciferol 25 MCG (1000 UT) Oral Capsule Take by mouth . 0 Suspend ed Ascorbic Acid 1000 MG Oral Tablet Take by mouth . 0 Suspended Multivitamin Adult Extra C Oral [...] as of this encounter (statuses as of 10/21/2023) Active Problems Problem Noted Date Diagnosed Date Paroxysmal atrial fibrillation 10/21/2023 Acute on chronic congestive heart failure 2022 Elevated troponin 10/20/2023 Hyperglycemia 10/20/2023 Leukocytosis 10/20/2023 Body mass index (BMI) of 40.0 [...] as of this encounter (statuses as of 10/21/2023) Resolved Problems Problem Noted Date Diagnosed Date [...] as of this encounter (statuses as of 10/21/2023) Immunizations Name Administration Dates Next Due PPD [...] Kennedy OSA - 10/20/2023 3:10 PM EST Radha- The radiologist discovered an unexpected or indeterminate finding on Ramona Stringer ([id number]) and asks that you review the following [...] ensure this report is reviewed. Thank you, Margaux Kennedy, WILL Client Service Rep [facility] documented in this encounter Plan of Treatment Upcoming Encounters Date Type Department Care Team (Late st Contact Info) Description 11/13/2023 9:45 AM EST Office Visit Cardiology, [facility] 132 [facility] [place] [address] Maggie Melendez, DO [address] [place] [address] [place] [address] 12/10/2023 2:20 PM EST Office Visit Family Practice 65 [facility] 293 [facility] [place] [address] Lucie Montero DO 293 [facility], [place] [address] 12/24/2023 2:00 PM EST Nurse Only Ancillary 65 [address] [address] [place], Nurse Annual Wellness Visit 65 [address] [address] 09/30/2024 2:30 PM EST Office Visit Otolaryngology [facility] 132 [facility] [place] [address] Femi Bal, DO [address] [place] [address] Health Maintenance Due Date Last Done Comments COVID-19 Vaccine (#1) 05/20/1956 Pneumococcal Vaccine: 65+ Years (1 - PCV) 1960 DTaP,Tdap,and Td Vaccines (1 - Tdap) 1973 Mammogram 1994 Zoster Vaccines (1 of 2) 2004 COLONOSCOPY-EVERY 5 YRS AGES 18-100 06/24/2021 06/24/2016, 06/24/2016 Influenza Vaccine (FLU shot) (#1) 2023 Depression Screening 10/08/2024 10/08/2023, 01/30/2015 (Declined) GFR 10/21/2024 10/21/2023, 09/26, 05/18/2023, Additional history exists Albumin/Creatinine Ratio 05/18/2026 05/18/2023 Diabetes Screening 10/21/2026 10/21/2023, 1 12/21/2022, 05/18/2023, Additional history exists Lipid Panel 05/18/2028 05/18/2023, [...] Inactivated Comments Full Code 10/20/2023 10:48 PM This ord er reflects the patients wishes and were consensually agreed upon. Question Answer Comments Discussion of Advance Directives occurred with: Patient Does the patient have a Living Will? No Does the patient have Health Care Power of Culinary Art Teacher? No Code Status History Code Status Date Activated Date Inactivated Comments Full Code 07/22/2016 6:01 PM 07/29/2016 8:21 PM This order reflects the patients wishes and were consensually agreed upon. Question Answer Comments Discussion of Advance Directives occurred with: Patient Does the patient have a Living Will? No Does the patient have Health Care Power of Culinary Art Teacher? No Full Code 01/22/2015 6:34 AM 01/24/2015 9:44 PM This o rder reflects the patients wishes and were consensually agreed upon. Question Answer Comments Discussion of Advance Directives occurred with: Patient Does the patient have a Living Will? No Does the patient have Health Care Power of Culinary Art Teacher? No Care Teams Asset Card Clerk Relationship Specialty Start Date End Date Lucie Montero DO [address] [place] [address] PCP - General Family Medicine 10/08/23 documented as of this encounter
--- OUTSIDE RECORDS SUMMARY | 2023-11-12 22:25 | External Medical Summary | Summary of Care ---
Author Name Unknown Organization [facility] Address [address] [place] [facility] [place] [address] Phone [phone] Care Team Providers Care Range Conservationist Name Role Phone Lucie Montero DO Primary Care Provider + [phone] Reason for Visit * Reason Onset Date Comments Test Results 10/20/2023 Unexpected or In determinate Result Encounter Details Date Type Department Care Team (Late st Contact Info) Description 10/20/2023 [facility] [address] Clifton Lee PA-C [facility] [place] [address] Test Results (Unexpected or Indeterminate ... Allergies [...] encounter Miscellaneous Notes * Telephone Encounter - Margaux Kennedy OSA - 10/20/2023 3:10 PM EST Hello- The radiologist discovered an unexpected or indeterminate finding on Ramona Stringer ([id number]) and asks that you review the following [...] you, Margaux Kennedy, WILL Client Service Rep [facility] documented in this encounter Plan of Treatment Upcoming Encounters Date Type Department Care Team (Late st Contact Info) Description 10/20/2023 3:45 PM EST Convenient Care Visit [address] [place] [id number] Clifton Lee PA-C [address] [place] [address] SOB (shortness of breath)*; Atrial fibrillation, unspecified type (HCC) 11/13/2023 9:45 AM EST Office Visit Cardiology, [facility] 132 [facility] [place] [address] Maggie Melendez, DO 400 [facility] [place] [address] 12/10/2023 2:20 PM EST Office Visit Family Practice 65 [facility] 293 [place] [address] Lucie Montero, DO 293 [place] [address] 12/24/2023 2:00 PM EST Nurse Only Ancillary 65 [facility] 293 [facility], [place] [address] College, Nurse Annual Wellness Visit [address], [place] [address] 09/30/2024 2:30 PM EST Office Visit Otolaryngology [facility] 132 [facility] [place] [address] Femi Bal, DO 132 [facility] [place] [address] Health Maintenance Due Date Last Done Comments [...] the patient have Health Care Power of Assembler Carbon Brushes? No Code Status History Code Status Date Activated Date Inactivated Comments Full Code 01/22/2015 6:34 AM 01/24/2015 9:44 PM This o rder reflects the patients wishes and were consensually agreed upon. Question Answer Comments Discussion of Advance Directives occurred with: Patient Does the patient have a Living Will? No Does the patient have Health Care Power of Assembler Carbon Brushes? No Care Teams Range Conservationist Relationship Specialty Start Date End Date Lucie Montero DO [address] [address] PCP - General Family Medicine 10/08/23 documented as of this encounter
--- OUTSIDE RECORDS SUMMARY | 2023-11-12 22:25 | External Medical Summary ---
Author Name Unknown Address Unknown Organization K1G:LABORATORY [address] [address] Laboratory Report Ordering Provider Test Date Status ASHLEY MOORE 10/21/2023 15:01:00 Final Observation Date Value Abnormality Reference (Units ) Status Bacteria identified in Specimen by Culture 10/21/2023 15:01:00 No growth Final Test: Culture, Blood
Sp ecimen Source: Blood, Venous
Specimen Type: Blood
Specimen Date: 10/21/2023 3:01 PM
Result Date: 10/26/2023 4:01 PM
Result Status: Final result
Resulting Lab: LAB[facility]ATORY [facility]
[address] [place] [address]
[facility] [address]

CULTURE

No growth

null Performing Location LABORATORY [address] [address]
--- OUTSIDE RECORDS SUMMARY | 2023-11-12 22:26 | External Medical Summary | Summary of Care ---
Author Name Unknown Organization [facility] Address [address] [place] [address] Phone [phone] Care Team Providers Care Registry Np Name Role Phone Jenny Pressley MD Primary Care Provider [phone] Reason for Visit * Reason Onset Date Comments Insurance 09/30/2023 64 Fwd - Tour/re quirements Encounter Details Date Type Department Care Team (Late st Contact Info) Description 09/30/2023 Telephone Family Practice [address] [facility] [address] [place] [address] Lucie Montero, [address] [place] [address] Insurance (65 Fwd - Tour/requirements) Allergies Active Allergy Reactions Criticality Noted Date Comments Beta Adrenergic Blockers Other (Please comment) 11/28/2021 Citalopram Unknown 11/17/2022 Digoxin Psych complications 01/22/2015 aggitated Other reaction(s): ineffective, Palpitations, psychologically caused depression caused depression Bisacodyl 06/17/2016 Triggered an episode of afib Iodinated Contrast Media Rash 07/06/2013 Iodine Rash 11/28/2021 Lisinopril Edema face/lips/tongue High 01/22/2015 Losartan 06/24/2021 Metoprolol 11/03/2014 (toprol) Per pt., made heart "pound" Sotalol 02/25/2013 documented as of this encounter (statuses as of 09/30/2023) Medications Medication Sig Dispensed Refills Start Date End Date Status Cholecalciferol 25 MCG (1000 UT) Oral Capsule Take by mouth . 0 Active Ascorbic Acid 1000 MG Oral Tablet Take by mouth . 0 Activ e Zinc 10 MG Mouth/Throat Lozenge Take by mouth . 0 Active Multivitamin Adult Extra C Oral Tablet Chewable Take by mouth . 0 Active Triamcinolone Acetonide 0.1 % External Cream (Aristocort)Indicat ions:Rash and nonspecific skin eruption Apply topically to affected area 2 times a day . To affected area. 15 g 1 12/03/2021 Active Baclofen 10 MG Oral Tablet (Lioresal) TAKE 1 TAB BY MOUTH 2 TIMES A DAY NEEDED FOR CRAMPING OR MUSCLE SPASMS. 60 Tablet 1 07/10/2022 Active Ondansetron HCl 4 MG Oral Tablet (Zofran) Take 1 Tablet by mouth every 6 hours as needed. 0 Active Ketorolac Tromethamine 10 MG Oral Tablet Take 1 Tablet by mouth 4 times a day as needed. 0 Active Sennosides-Docusate Sodium 8.6-50 MG Oral Tablet (Senokot-S) Take 1 Tablet by mouth in the morning and 1 Tablet before bedtime. 0 Active Montelukast Sodium 10 MG Oral Tablet (Singulair) Take 1 Tablet (10 mg) by mouth in the morning. 90 Tablet 3 10/07/2022 Active Additional Information Patient not taking.Reported on 09/29/2023 Diclofenac Sodium 1 % External Gel (Voltaren) APPLY 1 G TOPICALLY TO AFFECTED AREA IN THE MORNING AND 1 G BEFORE BEDTIME. 100 g 1 11/26/2022 Active Additional Information Patient not taking.Reported on 09/29/2023 Ventolin HFA 108 (90 Base) MCG/ACT Inhalation Aerosol Solution Inhale 2 Puffs by mouth in the morning and 2 Puffs at noon and 2 Puffs in the evening and 2 Puffs before bedtime. 16 g 3 02/26/2023 Active Fluticasone Propionate 50 MCG/ACT Nasal Suspension (Flonase)Indication s:Acute maxillary sinusitis, recurrence not specified SPRAY 2 SPRAYS INTO EACH NOSTRIL IN THE MORNING 48 mL 1 03/30/2023 Active Additional Information Patient not taking.Reported on 09/29/2023 Bumetanide 1 MG Oral Tablet (Bumex) TAKE 1 TAB BY MOUTH IN THE MORNING. TAKE ONE EXTRA TAB DAILY NEEDED FOR WEIGHT GAIN DIRECTED 180 Tablet 1 04/07/2023 Active Potassium Chloride Jihan ER 10 MEQ Oral Tablet Extended Release (Klor-Con M10) TAKE 2 TABLETS BY MOUTH EVERY DAY 180 Tablet 1 04/07/2023 Active Allopurinol 300 MG Oral Tablet (Zyloprim) Take 1 Tablet by mouth in the morning. 90 Tablet 3 08/18/2023 Active Additional Information Patient not taking.Reported on 09/29/2023 Phentermine HCl 37.5 MG Oral TabletIndications:O besity, morbid (more than 100 lbs over ideal weight or BMI > 40) (HCC) Take 1 Tablet by mouth daily before breakfast. 30 Tablet 5 08/20/2023 Active Additional Information Patient not taking.Reported on 09/29/2023 hydroCHLOROthiazide 12.5 MG Oral Capsule (Hydrodiuril) Take 1 Capsule by mouth in the morning. 90 Capsule 3 09/14/2023 Active Additional Information Patient not taking.Reported on 09/29/2023 HYDROcodone-Acetami nophen 7.5-325 MG Oral TabletIndications:C ontrolled substance agreement signed,Status post right knee replacement,Rotator cuff syndrome of left shoulder Take 1 Tablet by mouth every 8 hours as needed for Pain, Breakthrough or Pain, Severe. 30 Tablet 0 09/15/2023 Active documented as of this encounter (statuses as of 09/30/2023) Active Problems Problem Noted Date Diagnosed Date Gout of big toe 11/17/2022 Status post [...] as of this encounter (statuses as of 09/30/2023) Resolved Problems Problem Noted Date Diagnosed Date [...] 12/03/2018 NONALLERGIC RHINITIS 019 Atrial fibrillation 12/03/19 documented as of this encounter (statuses as of 09/30/2023) Immunizations Name Administration Dates Next Due PPD 05/07/2020 documented as of this encounter Social History Tobacco Use Types Packs/Day Years Used Date Smoking Tobacco: Never Passive Smoke Exposure: Past Smokeless Tobacco: Never Comments:no passive smoke ex posures Alcohol Use Standard Drinks/Week Comments Yes 0 (1 standard drink = 0.6 oz pur e alcohol) rarely PHQ-2 Answer Date Recorded PHQ Adult Total Score 5 11/25/2022 Hunger Vital Sign Answer Date Recorded Within the past 12 months, y ou worried that your food would run out before you got the money to buy more. Never true 11/25/19 23 Within the past 12 months, t he food you bought just didn't last and you didn't have money to get more. Never true 11/25/2022 Sex and Gender Information Value Date Recorded [...] encounter Miscellaneous Notes * Telephone Encounter - Mariana Acevedo OSA - 09/30/2023 3:35 PM EST Discussed GOLD requirement, patient acknowledges and understands. Pt aware she needs to maintain her gold insurance. Tour given today, 09.30.23, by myself. Pt scheduled with Dr Montero on 10.08.23 documented in this encounter Plan of Treatment Upcoming Encounters Date Type Department Care Team (Late st Contact Info) Description 10/08/2023 9:40 AM EST Pharmacy Family Practice [address] [place] [phone] College, Pharmacist [address] [place] [address] 10/08/2023 10:00 AM EST Office Visit Family Practice [address] [place] [phone] Lucie Montero DO [address] [place] [address] 11/19/2023 1:00 PM EST [facility] [address] [phone] Jenny Pressley MD [address] [place] [address] 11/26/2023 2:00 PM EST Nurse Only Ancillary Department, [address] [place] [address] Karlie, Nurse Annual Wellness [address] [place] [address] 09/30/2024 2:30 PM EST Office Visit Otolaryngology [facility] [address] [place] [address] Femi Bal, [address] [place] [address] Health Maintenance Due Date Last Done Comments COVID-19 Vaccine (#1) 05/20/1956 Pneumococcal Vaccine: 65+ Years (1 - PCV) 1960 DTaP,Tdap,and Td Vaccines (1 - Tdap) 1973 Mammogram 1994 Zoster Vaccines (1 of 2) 2004 COLONOSCOPY-EVERY 5 YRS AGES 18-100 06/24/2021 06/24/2016, 06/24/2016 Influenza Vaccine (FLU shot) (#1) 2023 Depression Screening 11/25/2023 11/25/2022, 01/30/2015 (Declined) GFR 05/18/2024 05/18/2023, 08/27, 07/10/2022, Additional history exists Albumin/Creatinine Ratio 05/18/2026 05/18/2023 Diabetes Screening 05/18/2026 [...] the patient have Health Care Power of Safety Director? No Code Status History Code Status Date Activated Date Inactivated Comments Full Code 01/22/2015 6:34 AM 01/24/2015 9:44 PM This o rder reflects the patients wishes and were consensually agreed upon. Question Answer Comments Discussion of Advance Directives occurred with: Patient Does the patient have a Living Will? No Does the patient have Health Care Power of Safety Director? No Care Teams Registry Np Relationship Specialty Start Date End Date Jenny Pressley MD [address] [facility] [place] [address] PCP - General Internal Medicine 10/06/22 documented as of this encounter
--- OUTSIDE RECORDS SUMMARY | 2023-11-12 22:26 | External Medical Summary ---
Author Name Unknown Address Unknown Organization K1[facility]:LABORATORY [facility] - [address] [place] [phone] Laboratory Report Ordering Provider Test Date Status EMIL AMBROCIO 10/20/2023 17:11:02 Final Observation Date Value Abnormality Reference (Units ) Status Troponin T 10/20/2023 17:11:02 38 Above high normal < =14 (ng/L) Final Performing Location LABORATORY [facility] - [address] [place] [id number]
--- OUTSIDE RECORDS SUMMARY | 2023-11-12 22:26 | External Medical Summary | Summary of Care ---
Author Name Unknown Organization [facility] Address [address] [place] [address] Phone [phone] Care Team Providers Care News Broadcaster Name Role Phone Lucie Montero DO Primary Care Provider [phone] Reason for Visit * Reason Onset Date Comments Appointment 10/08/2023 Cardiology Encounter Details Date Type Department Care Team (Late st Contact Info) Description 10/08/2023 Telephone Family Practice [address] [place] [address] [place] [address] Lucie Montero DO [address] [place], [place] [phone] Appointment (Cardiology) Allergies Active Allergy Reactions Criticality Noted Date [...] as of this encounter (statuses as of 10/08/2023) Medications Medication Sig Dispensed Refills Start Date [...] as of this encounter (statuses as of 10/08/2023) Active Problems Problem Noted Date Diagnosed Date [...] as of this encounter (statuses as of 10/08/2023) Resolved Problems Problem Noted Date Diagnosed Date [...] as of this encounter (statuses as of 10/08/2023) Immunizations Name Administration Dates Next Due PPD [...] encounter Miscellaneous Notes * Telephone Encounter - Ara Davis OSA - 10/08/2023 2:20 PM EST Appt added to wait list. No sooner appts at this time. * Telephone Encounter - Mariana Patel OSA - 10/08/2023 2:15 PM EST CARDIOLOGY REFERRAL OP Paroxysmal atrial fibrillation (HCC) [I48.0] Dr. Melendez only Gave appt in Nov, would like sooner documented in this encounter Plan of Treatment Upcoming Encounters Date Type Department Care Team (Late st Contact Info) Description 12/08/2023 3:15 PM EST Office Visit Cardiology, [facility] [address] [facility] [place] [address] Maggie Melendez, DO [address] [facility] [place] [phone] 12/10/2023 2:20 PM EST Office Visit Family Practice 65 [facility] [address] [place] [address] Lucie Montero, [address] [place] [address] 12/24/2023 2:00 PM EST Nurse Only Ancillary 65 [facility] [address] [place] [address] College, Nurse Annual Wellness Visit [address] [place] [address] 09/30/2024 2:30 PM EST Office Visit Otolaryngology [facility] [address] [facility] [place] [address] Femi Bal, [address] [facility] [place] [address] Health Maintenance Due Date Last Done Comments Pneumococcal Vaccine: 65+ Years (1 - PCV) 1960 DTaP,Tdap,and Td Vaccines (1 - Tdap) 1973 Mammogram 1994 Zoster Vaccines (1 of 2) 2004 COLONOSCOPY-EVERY 5 YRS AGES 18-100 06/24/2021 06/24/2016, 06/24/2016 Influenza Vaccine (FLU shot) (#1) 2023 COVID-19 Vaccine (#1) 10/09/2023 Postpo reva from 05/20/1956 (Patient Declined After Education) GFR 05/18/2024 05/18/2023, 08/27, 07/10/2022, Additional history [...] the patient have Health Care Power of Senior Label Specialist? No Code Status History Code Status Date Activated Date Inactivated Comments Full Code 01/22/2015 6:34 AM 01/24/2015 9:44 PM This o rder reflects the patients wishes and were consensually agreed upon. Question Answer Comments Discussion of Advance Directives occurred with: Patient Does the patient have a Living Will? No Does the patient have Health Care Power of Senior Label Specialist? No Care Teams News Broadcaster Relationship Specialty Start Date End Date Lucie Montero DO [address] [facility] [place] [address] PCP - General Family Medicine 10/08/23 documented as of this encounter
--- OUTSIDE RECORDS SUMMARY | 2023-11-12 22:26 | External Medical Summary | Summary of Care ---
Author Name Unknown Organization [facility] Address [address] [place] [address] Phone [phone] Care Team Providers Care Cashier Credit Name Role Phone Lucie Montero DO Primary Care Provider + [phone] Reason for Visit * Reason Onset Date Comments Referral 10/13/2023 triage Encounter Details Date Type Department Care Team (Late st Contact Info) Description 10/13/2023 New Patient Triage (FINANCIAL SERVICES COUNSELOR USE ONLY) Cardiology, [facility] [address] [facility] [place] [address] Alba Vela CRNP [address] [place] [address] Referral (triage) Allergies Active Allergy [...] as of this encounter (statuses as of 10/13/2023) Medications Medication Sig Dispensed Refills Start Date [...] as of this encounter (statuses as of 10/13/2023) Active Problems Problem Noted Date Diagnosed Date [...] as of this encounter (statuses as of 10/13/2023) Resolved Problems Problem Noted Date Diagnosed Date [...] HYPERTENSION, ESSENTIAL NOS (G) 12/03/2018 NONALLERGIC RHINITIS 2018 Atrial fibrillation 12/03/19 19 documented as of this encounter (statuses as of 10/13/2023) Immunizations Name Administration Dates Next Due PPD [...] as of this encounter Progress Notes * Jennifer Farfan LPN - 10/13/2023 3:18 PM EST New Patient Triage What is the diagnosis/reason for referral?: I48.0 Enter order ID here: [id number] Specialty specific documentation: Cardiology Structural Heart CARDIAC REFERRAL 10/08/2023 Within 10 days (routine) Paroxysmal atrial fibrillation (HCC) [I48.0] - Primary Dr. Melendez only CARDIOLOGY APPOINTMENT scheduled for 11/13/2023. REFERRING PROVIDER PCP Lucie Burdick, DO Family [address], [place] PER REFERRAL NOTES: Office Visit 10/08/2023 Family Practice [address], [place] 67 year old female who presents today [...] 100. She had a heart doctor in [place] advise her to have an ablation. She notes she is very exhausted. She is short of breath. Pt has been taking 1/2 of an atenolol the last few days. Pt has an appt with the [facility] heart clinic in [place] on Thursday. Pt gets swelling in her [...] ablation advised. Will place EP referral. Followed [facility] cardiology, Dr Saldivar Most Recent LAB VALUES 05/18/2023 LIPID panel, CMP, CBC w/diff, Uric acid, BNP(NT-PRO) Troponin, B 12, Urine ALBUM/Creat CARDIAC TESTING EKG-05/20/2023 ZIO- 7 days 10/08/2023 Holter 11/29/2021 CARDIAC CATH-12/18/2014 Patient to keep appointment as scheduled. Discussed care plan with patient or proxy?: Yes Communicated with patient on Date (mm/dd/yyyy): 10/13/2023 at Time ([facility]): 1539 documented in this encounter Plan of Treatment Upcoming Encounters Date Type Department Care Team (Late st Contact Info) Description 11/13/2023 9:45 AM EST Office Visit Cardiology, [facility] [address] [facility] [place] [address] Maggie Melendez, DO [address] [place] [address] 12/10/2023 2:20 PM EST Office Visit Family Practice 65 [facility] [address] [facility] [place], [place] [address] Lucie Montero, DO [address] [place] [address] 12/24/2023 2:00 PM EST Nurse Only Ancillary 65 [facility] [address] [facility] [place], [place] [address] College, Nurse Annual Wellness Visit [address], [place] [address] 09/30/2024 2:30 PM EST Office Visit Otolaryngology [facility] [address] [place] [address] Femi Bal, DO [facility] [place] [address] Health Maintenance Due Date Last Done Comments [...] the patient have Health Care Power of Digital Art Director? No Code Status History Code Status Date Activated Date Inactivated Comments Full Code 01/22/2015 6:34 AM 01/24/2015 9:44 PM This o rder reflects the patients wishes and were consensually agreed upon. Question Answer Comments Discussion of Advance Directives occurred with: Patient Does the patient have a Living Will? No Does the patient have Health Care Power of Digital Art Director? No Care Teams Cashier Credit Relationship Specialty Start Date End Date Lucie Montero DO [address] [place] [address] PCP - General Family Medicine 10/08/23 documented as of this encounter
--- OUTSIDE RECORDS SUMMARY | 2023-11-12 22:26 | External Medical Summary | Summary of Care ---
Author Name Unknown Organization [facility] Address [address] [place] [address] Phone [phone] Care Team Providers Care Net Manager Name Role Phone Lucie Montero DO Primary Care Provider [phone] Reason for Referral * Evaluate & Treat - Unlimited Visits (Within 10 days (routine)) - Authorized Specialty Diagnoses / Procedures Referred By Contmaximo t Referred To Contact Cardiovascular Medicine / Cardiology Diagnoses Paroxysmal atrial fibrillation (HCC) Lucie Montero DO [address] [place] [address] Referral ID Status Reason Start Date Expiration Date Visits Requested Visits Authorized [id number] Authorized Specialty Services Required 3 [phone] Question Answer Referral Priority Within 10 days (routine) Where should this appointment be scheduled? [facility] To which of the following clinics are you referring your patient? Arrhythmia/Electrophysiology Clinic Comments Dr. Melendez only Reason for Visit * Reason Comments NEW PATIENT Encounter Details Date Type Department Care Team (Late st Contact Info) Description 10/08/2023 10:00 AM EST Office Visit Family Practice [facility] [place] [address] [place] [address] Lucie Montero DO [address], [place] [id number] Paroxysmal atrial fibrillation (HCC)*; Chronic systolic heart failure (HCC); HTN, goal below 140/90; Chronic pain syndrome; History of diffuse large B-cell lymphoma; Risk and functional assessment Allergies Active Allergy Reactions Criticality Noted Date [...] Oral Tablet Take by mouth . 0 Active Multivitamin [...] 1 Tablet by mouth daily. 0 Active Zinc 10 MG Mouth/Throat Lozenge Take by mouth . 0 3 Discontinue d(Medicatio n List Clean Up) Triamcinolone Acetonide 0.1 % External Cream (Aristocort)Indic ations:Rash and nonspecific skin eruption Apply topically to affected area 2 times a day . To affected area. 15 g 1 12/03/2021 3 Discontinue d(Medicatio n List Clean Up) Ondansetron HCl 4 MG Oral Tablet (Zofran) Take 1 Tablet by mouth every 6 hours as needed. 0 3 Discontinue d(Medicatio n List Clean Up) Ketorolac Tromethamine 10 MG Oral Tablet Take 1 Tablet by mouth 4 times a day as needed. 0 3 Discontinue d(Medicatio n List Clean Up) Sennosides-Docusa te Sodium 8.6-50 MG Oral Tablet (Senokot-S) Take 1 Tablet by mouth in the morning and 1 Tablet before bedtime. 0 3 Discontinue d(Medicatio n List Clean Up) Diclofenac Sodium 1 % External Gel (Voltaren) APPLY 1 G TOPICALLY TO AFFECTED AREA IN THE MORNING AND 1 G BEFORE BEDTIME. 100 g 1 11/26/2022 3 Discontinue d(Medicatio n List Clean Up) Ventolin HFA 108 (90 Base) MCG/ACT Inhalation Aerosol Solution Inhale 2 Puffs by mouth in the morning and 2 Puffs at noon and 2 Puffs in the evening and 2 Puffs before bedtime. 16 g 3 02/26/2023 3 Discontinue d(Adverse reaction) Fluticasone Propionate 50 MCG/ACT Nasal Suspension (Flonase)Indicati ons:Acute maxillary sinusitis, recurrence not specified SPRAY 2 SPRAYS INTO EACH NOSTRIL IN THE MORNING 48 mL 1 10/06/2023 3 Discontinue d(Medicatio n List Clean Up) documented as of this encounter (statuses as of 10/08/2023) Active Problems Problem Noted Date Diagnosed Date Body mass index (BMI) of 40.0 to 44.9 in adult 1 12/06/2022 Overview: Per Obesity protocol Gout of big toe 11/17/2022 Status post right knee replacement 10/07/2022 Chronic allergic rhinitis 10/07/2022 Rotator cuff syndrome of left shoulder 2 Diverticulitis of colon 10/07/2022 History of diffuse [...] Passive Smoke Exposure: Past Smokeless Tobacco: Never Tobacco Cessation:Counseling Given: No Comments:no passive smoke exposures Alcohol Use Standard Drinks/Week Comments Not Currently [...] Sign Reading Time Taken Comments Blood Pressure 120/72 10/08/2023 10:26 AM EST Pulse 52 10/08/2023 10:26 AM EST irregular Temperature 36.7 C (98.1 F) 10/08/2023 1 0:26 AM EST Respiratory Rate 14 10/08/2023 10:2 6 AM EST Oxygen Saturation 95% 10/08/2023 10: 26 AM EST Inhaled Oxygen Concentration - - Weight 110.8 kg (244 lb 4.8 oz) 023 10:26 AM EST Height 167.6 cm (5' 6") 10/08/2023 10:2 6 AM EST Body Mass Index 39.43 10/08/2023 10:26 AM EST documented in this [...] No 07/22/2016 documented as of this encounter Patient Instructions * Patient Instructions* Alicia Wiggins LPN - 10/08/2023 10:39 AM EST Patient Instructions - Fall Prevention (This education is for all patients over 65 regardless of symptoms) Remember to take your current medications as prescribed. In order to prevent falls, you are encouraged to: Exercise Utilize assistive/adaptive devices Avoid multifocal lenses when walking Avoid hazards in home Maintain a regular toileting schedule Any questions please contact our office. Preventing Falls in the Home (This education is for all patients over 65 regardless of symptoms) As you get older, falls are more likely. Thats because your reaction time slows. Your muscles and joints may also get stiffer, making them less flexible. Illness, medications, and vision changes can also affect your balance. A fall could leave you unable to live on your own. To make your home safer, follow these tips: Floors Put nonskid pads under area rugs Remove throw rugs Replace worn floor coverings Tack carpets firmly to each step on carpeted stairs. Put nonskid strips on the edges of uncarpeted stairs Keep floors and stairs free of clutter and cords Arrange furniture so there are clear pathways Clean up any spills right away Bathrooms Install grab bars in the tub or shower Apply nonskid strips or put a nonskid rubber mat in the tub or shower Sit on a bath chair to bathe Use bathmats with nonskid backing Lighting Keep a flashlight in each room Put a nightlight along the pathway between the bedroom and the bathroom [employer] Patient Education Copyright 2008 - 2010 [employer] except where otherwise noted Preventing Falls: Exercises to Improve Balance, Flexibility, Strength, and Staying Power (This education is for all patients over 65 regardless of symptoms) Certain types of exercises may help make you less likely to fall. Try the ones below. Or do other exercises that your healthcare provider suggests. Depending on your health, you may need to start slowly. Dont let that stop you. Even small amounts of exercise can help you. Be sure to talk to yourhealthcare provider before starting any exercise program. Improve Balance Many types of exercise can help improve balance. Jorge chi and yoga are good examples. Heres another one to try. You can do it anytime and almost anywhere. Stand next to a counter or solid support. Push yourself up onto your tiptoes. Hold for 5 seconds. If you start to lose your balance, hold on to the counter. Rest and repeat 5 times. Work up to holding for 20 to 30 seconds, if you can. Increase Flexibility Being more flexible makes it easier for you to move around safely. Try exercises like the seated hamstring stretch. Sit in a chair and put one foot on a stool. Straighten your leg and reach with both hands down either side of your leg. Reach as far down your leg as you can. Hold for about 20 seconds. Go back to the starting position. Then repeat 5 times. Switch legs. Build Strength Resistance exercises help build strength. You can do them without equipment. Or you can use weights, elastic bands, or special machines. One such exercise is called the biceps curl. You can hold a 1 pound weight or even a can of soup. Do this exercise at least 3 times a week. Strive for everyday. Sit up straight in a chair. Keep your elbow close to your body and your wrist straight. Bend your arm, moving your hand up to your shoulder. Then slowly lower your arm. Repeat 5 times. Switch to the other arm. Build Your Staying Power Aerobic exercises make your heart and lungs stronger so you can keep moving longer. Walking and swimming are two of the best types of exercises you can do. Using a stationary bike is great, too. Find an aerobic exercise that you enjoy. Start slowly and build up. Even 5 minutes is helpful. Aimfor a goal of 30 minutes, at least 3 times a week. You dont have to do 30 minutes in one session. Break it up and walk a little throughout the day. More Helpful Tips Start easy. Slowly work up to doing more. Talk with your healthcare provider about the best exercises for you. Call senior centers or health clubs about exercise programs. If needed, have a family member watch you walk every so often to check your stability. Exercise with a friend. Choose an activity you both enjoy. Try exercises that you can do anytime, anywhere. Here are two examples. Have someone with you when you first try these: Practice walking by placing one foot right in front of the other. Stand up and sit down 10 times. Repeat this throughout the day. [employer] Patient Education Copyright 2008 [employer] except where otherwise noted. Preventing Falls: Moving Safely Using a Cane or Walker (This education is for all patients over 65 regardless of symptoms) Keep the cane away from your feet so you dont trip. A walking aid, such as a cane or walker, can help you stay more independent and avoid falls. Remember to keep your walking aid within easy reach when youre in a chair or in bed. And learn how to use it safely so you dont injure yourself. Using a Cane If you have a stronger side, hold the cane on that side. Get your balance. Move the cane and your weaker leg forward. Support your weight on both the cane and your weaker side. Step with your stronger leg. Start again from step 1. If youre using a folding walker, be sure you know how to lock it open. Check that its locked open before each use. Using a Walker Roll the walker (or lift it, if youre using one without wheels) forward about 12 inches. Step forward with your weaker leg first. Use the walker to help keep your balance. Bring your other foot forward to the center of the walker. Start again from step 1. Helpful Tips Check with your healthcare provider about the right walking aid to use. Ask about a walker with a seat attached. Check the tips of your cane or walker to make sure they have nonskid covers. Move slowly from room to room. Dont [place]. Sit down to get dressed. Use a елена pack or backpack to keep your hands free. Get help for jobs that mean climbing, even on a stepstool. [employer] Patient Education Copyright 2008 - 2010 [employer] except where otherwise noted. Urinary Incontinence Plan of Care Documentation: (This education is for all patients over 65 regardless of symptoms) Current medications reconciled. Patient encouraged to: Practice kegal exercises Provide education materials Use the restroom every 2 hours throughout the day Limit caffeine, alcohol, spicy foods and acidic foods Keep a bladder diary Limit fluid intake 3-4 hours before bed Lose weight Prevent constipation Take fluid pills at a time when you can get to the bathroom quickly Control sugar better if diabetic Limit fluid intake to 60 oz. per day Wear support stockings (TEDs)if you have edema Alicia Wiggins LPN 10/08/2023 Kegel Exercises Kegel exercises dont require special clothing or equipment. Theyre easy to learn and simple to do. And if you do them right, no one can tell youre doing them, so they can be done almost anywhere. Your doctor, nurse, or physical therapist can answer any questions you have and help you get started. A Weak Pelvic Floor The pelvic floor muscles may weaken due to aging, and vaginal childbirth, injury, surgery, chronic cough, or lack of exercise. If the pelvic floor is weak, your bladder and other pelvic organs may sag out of place. The urethra may also open too easily and allow urine to leak out. Kegel exercises can help you strengthen your pelvic floor muscles so they can better support the pelvic organs and control urine flow. How Kegel Exercises Are Done Try each of the Kegel exercises described below. When youre doing them, try not to move your leg, buttock, or stomach muscles. While youre urinating, try to stop the flow of urine. Start and stop it as often as you can. Contract as if you were stopping your urine stream, but do it when youre not urinating. Tighten your rectum as if trying not to pass gas. Contract your anus, but dont move your buttocks. Helpful Hints Do your Kegels as often as you can. The more you do them, the faster youll feel the results. Pick an activity you do often as a reminder. For instance, do your Kegels every time you sit down. Tighten your pelvic floor before you sneeze, get up from a chair, cough, laugh, or lift. This protects your pelvic floor from injury and can help prevent urine leakage. Try to hold each Kegel for a slow count to five. You probably wont be able to hold them for thatlong at first, but keep practicing. It will get easier as your pelvic floor gets stronger. Eventually, special weights that you place in your vagina may be recommended to help make your Kegels even more effective. [employer] Patient Education Copyright 2008 - 2010 [employer] except where otherwise noted. Here are some helpful tips for your urinary incontinence: (This education is for all patients over 65 regardless of symptoms) Practice Kegel exercises Use the restroom every 2 hours throughout the day Limit caffeine, alcohol, spicy foods, and acidic foods Keep a bladder diary Limit fluid intake 3-4 hours before bed Lose weight Prevent constipation Take fluid pills at a time when can get to the bathroom quickly Control sugar better if diabetic Limit fluid intake to 60 oz. per day Any questions, please feel free to contact our office. documented in this encounter Progress Notes * Alba Redding RN - 10/08/2023 12:22 PM EST Zio patch applied. Serial # [id number]. Went over instruction manual with pt. * Lucie Montero, - 10/08/2023 11:13 AM EST SUBJECTIVE: Chief Complaint Patient presents with NEW PATIENT HPI: Ramona Stringer is a 67 year old female who presents today to [facility]. Pt was previously seen by Dr. Pressley. Pt has a history of A.fib. She [...] 100. She had a heart doctor in [place] advise her to have an ablation. She notes she is very exhausted. She is short of breath. Pt has been taking 1/2 of an atenolol the last few days. Pt has an appt with the [facility] heart clinic in [place] on Thursday. Pt notes that she has been on Vicodin. She states that she has been on this for many years. It is chronic joint and back pain. She notes that she has fibromyalgia. She states that she may have a months supply and it will last her a couple of months. She notes that she tries to not take it. She willtry to control pain with sitting or lying down. She keep baclofen on hand if she needs it. Pt gets swelling in her legs and ankles. She was started on Bumex for heart failure. She was initially on furosemide. She takes the Bumex daily. Pt has a history of B cell lymphoma. She states that she went to [facility] for treatment. 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 PHM: Patient Active Problem List Diagnosis Code ADVANCE [...] (BMI) of 40.0 to 44.9 in adult ([facility]) Z68.41 Current Outpatient Medications Medication Sig Dispense Refill Ascorbic Acid 1000 MG Oral Tablet Take by mouth . Multivitamin Adult Extra C Oral Tablet Chewable Take by mouth . Bumetanide 1 MG Oral Tablet (Bumex) TAKE [...] Tablet Take 1 Tablet by mouth daily. Cholecalciferol 25 MCG (1000 UT) Oral Capsule Take by mouth . Baclofen 10 MG Oral Tablet (Lioresal) TAKE 1 TAB BY MOUTH 2 TIMES A DAY NEEDED FOR CRAMPING OR MUSCLE SPASMS. 60 Tablet 1 Potassium Chloride Jihan ER 10 MEQ Oral [...] No current facility-administered medications for this visit. Past Medical History: Diagnosis Date Anterior scleritis [...] performed by Eden Foreman DO at [facility] EXPLORATION OF ABDOMEN N/A 07/24/2016 EXPLORATORY LAPAROTOMY performed by Eden Hassan DO at OR [facility] PARTIAL REMOVAL OF THYROID LOBE REMOVAL OF SMALL INTESTINE W/FUSION N/A 07/24/2016 ENTERECTOMY SMALL BOWEL RESECTION performed by Eden Hassan DO at OR [facility] REMOVE TONSILS & ADENOIDS, UNDER 12 T & A, age<12 REPAIR OF NASAL SEPTUM ? 2001 Nasal Septum Repair - Dr. Hernández REVISE MIDDLE EAR & MASTOID 12/16/2011 TYMPANOPLASTY MASTOIDECTOMY WITHOUT OSSICULAR RECONSTRUCTION performed [place] SEA MCCARTY [place] [facility] Review of patient's allergies indicates: Allergen Reactions [...] Problem Relation Age of Onset Heart Disorder Father [place] Heart Disorder Mother Hypertension Mother Heart Disorder Brother No Past Hx Daughter x4 some have mental health issues No Past Hx Son x3 some have mental health issues Family Status Relation Status Fa at age 79 Heart Mo at age 82 Heart Bro Alive Bro Alive Bro Alive Bro Alive Sis Alive Bro (Not Specified) Kaylen (Not Specified) Son (Not Specified) Social History Tobacco Use Smoking status: Never Passive exposure: Past Smokeless tobacco: Never Tobacco comments: no passive smoke exposures Substance Use Topics Alcohol use: Not Currently Comment: rarely Vaping/E-Cigarette Use Vaping/E-Cigarette Use Never User Vaping/E-Cigarette Substances Vaping/E-Cigarette Devices REVIEW OF SYSTEMS: Review of Systems Constitutional: Positive for fatigue. Negative for activity change, chills, diaphoresis and fever. HENT: Negative for congestion, ear discharge, ear pain, hearing loss and tinnitus. Eyes: Negative for pain, discharge, redness and visual disturbance. Respiratory: Positive for shortness of breath. Negative for cough, chest tightness and wheezing. Cardiovascular: Positive for chest pain and palpitations. Negative for leg swelling. Gastrointestinal: Negative for abdominal pain, constipation, diarrhea, nausea and vomiting. Musculoskeletal: Positive for arthralgias and myalgias. Negative for back pain, gait problem and joint swelling. Skin: Negative for color change, pallor and rash. Neurological: Negative for dizziness, weakness, numbness and headaches. Hematological: Negative for adenopathy. OBJECTIVE: BP 120/72 (BP Site: Left Arm, BP Position: Sitting, BP Cuff Size: Regular) | Pulse 52 Comment: irregular | Temp 36.7 C (98.1 F) (Tympanic) | Resp 14 | Ht 1.676 m (5' 6") | Wt 110.8 kg (244 lb 4.8oz) | SpO2 95% | BMI 39.43 kg/m | BSA 2.27 m PHYSICAL EXAM: Physical Exam Constitutional: General: She is not in acute distress. Appearance: She is well-developed. HENT: Head: Normocephalic and atraumatic. Right Ear: Tympanic membrane, ear canal and external ear normal. Left Ear: Tympanic membrane, ear canal and external ear normal. Nose: Nose normal. No mucosal edema or rhinorrhea. Mouth/Throat: Pharynx: No oropharyngeal exudate. Eyes: General: No scleral icterus. Conjunctiva/sclera: Conjunctivae normal. Pupils: Pupils are equal, round, and reactive to light. Neck: Thyroid: No thyromegaly. Cardiovascular: Rate and Rhythm: Normal rate. Rhythm irregular. Heart sounds: No murmur heard. No friction rub. No gallop. Pulmonary: Effort: No respiratory distress. Breath sounds: Normal breath sounds. No wheezing, rhonchi or rales. Chest: Chest wall: No tenderness. Abdominal: General: Bowel sounds are normal. Palpations: Abdomen is soft. There is no mass. Tenderness: There is no abdominal tenderness. There is no guarding. Musculoskeletal: General: No tenderness or deformity. Normal range of motion. Cervical back: Normal range of motion and neck supple. Right lower leg: Edema (trace to +1) present. Left lower leg: Edema (trace to +1) present. Lymphadenopathy: Cervical: No cervical adenopathy. Skin: General: Skin is warm and dry. Findings: No rash. Neurological: Mental Status: She is alert and oriented to person, place, and time. Psychiatric: Speech: Speech normal. Behavior: Behavior normal. Thought Content: Thought content normal. ASSESSMENT/PLAN: (I48.0) Paroxysmal atrial fibrillation (HCC) (primary encounter [...] if ablation advised. Will place EP referral. (I50.22) Chronic systolic heart failure (HCC) Plan: Per last note from May, EF was 45%. Pt on Bumex. She will call with issues. (I10) HTN, goal below 140/90 Plan: BP controlled today. She has been taking 1/2 tablet of atenolol recently. Does take this off and on. (G89.4) Chronic pain syndrome Plan: Pt uses vicodin as needed. She states that she will use a month's worth of med over 2-3 months most of the time. Has prn baclofen. Does not use often. (Z85.72) History of diffuse large B-cell lymphoma Plan: Was treated in [place]. Has not really had any oncology f/u since then. (Z13.9) Risk and functional assessment Plan: See nursing note. Follow-up: 2 months Total time today including reviewing chart before the visit, pertinent labs, imaging reports, face to face time, and documentation time was 43 minutes. Lucie Montero DO * Alicia Wiggins LPN - 10/08/2023 10:39 AM EST Urinary Incontinence Plan of Care Documentation: (This education is for all patients over 65 regardless of symptoms) Current medications reconciled. Patient encouraged to: Practice kegal exercises Provide education materials Use the restroom every 2 hours throughout the day Limit caffeine, alcohol, spicy foods and acidic foods Keep a bladder diary Limit fluid intake 3-4 hours before bed Lose weight Prevent constipation Take fluid pills at a time when you can get to the bathroom quickly Control sugar better if diabetic Limit fluid intake to 60 oz. per day Wear support stockings (TEDs)if you have edema Alicia Wiggins LPN 10/08/2023 * Veronica Duque RP - 10/08/2023 10:08 AM EST Home BP 108/77 yesterday - takes 1/2 to 1 tablet daily. Cardiology - Dr. Saldivar with [facility]. Hydrocodone for back pain Wants to lose weight. Takes MVI, zinc 50 mg, c [id number] mg daily and D3 1000mg - variable doses - past week. Stopped HCTZ bc made her too dehydrated with bumex. Went back to atenolol. Albuterol makes heart race, puts her in afib. Pill box, never misses. documented in this encounter Nursing Notes * Alicia Wiggins LPN - 10/08/2023 10:36 AM EST Patient here to establish as a new patient. Patient declined all vaccines and declined a colonoscopy. Patient reports she is having problems with her heart - in and out of a-fib. States she has been feeling bad the past few days. States her home pulse ox varies from 30's to 100s. Has an upcoming appointment with a fitness leader at [facility]. She states this was arranged by [employer] States appointmentis on Thursday. Reports she has ongoing ear problems and has had ear surgeries in the past. Follows with ENT. documented in this encounter Plan of Treatment Upcoming Encounters Date Type Department Care Team (Late st Contact Info) Description 12/08/2023 3:15 PM EST Office Visit Cardiology, [facility] [address] [facility] [place] [id number] Nora Maggie Alba, DO [address] [facility] [place], [place] [address] 12/10/2023 2:20 PM EST Office Visit Family Practice [facility] [address] [facility] [place] [address] Lucie Montero, DO [address] [place] [address] 12/24/2023 2:00 PM EST Nurse Only Ancillary [facility] [address] [facility] [place] [address] [place], Nurse Annual Wellness Visit [address] [place] [address] 09/30/2024 2:30 PM EST Office Visit Otolaryngology [facility] [address] [facility] [place] [address] Femi Bal, DO [address] [facility] [id number] Scheduled Orders Name Type Priority Associated Diagnoses Orde r Schedule EXTERNAL EKG 2 TO 7 DAYS Holter Routine Paroxysmal atrial fibrillation (HCC) Expected: 10/09/2023 (Approximate), Expires: 10/08/2024 Scheduled Referrals Name Type Priority Associated Diagnoses Orde r Schedule CARDIOLOGY REFERRAL OP Referral Within 10 days (routine) Paroxysmal atrial fibrillation (HCC) Ordered: 10/08/2023 Health Maintenance Due Date Last Done Comments [...] Not on filedocumented as of this encounter Visit Diagnoses Diagnosis Paroxysmal atrial fibrillation (HCC)- Primary Atrial fibrillation Chronic systolic heart failure (HCC) Chronic systolic heart failure HTN, goal below 140/90 Unspecified essential hypertension Chronic pain syndrome History of diffuse large B-cell lymphoma Risk and functional assessment Screening for unspecified condition documented in this encounter Advance Directives Latest Code Status on File Code Status Date Activated Date Inactivated Comments Full Code 07/22/2016 6:01 PM 07/29/2016 8:21 PM This order reflects the patients wishes and were consensually agreed upon. Question Answer Comments Discussion of Advance Directives occurred with: Patient Does the patient have a Living Will? No Does the patient have Health Care Power of Folder Machine? No Code Status History Code Status Date Activated Date Inactivated Comments Full Code 01/22/2015 6:34 AM 01/24/2015 9:44 PM This o rder reflects the patients wishes and were consensually agreed upon. Question Answer Comments Discussion of Advance Directives occurred with: Patient Does the patient have a Living Will? No Does the patient have Health Care Power of Folder Machine? No Care Teams Net Manager Relationship Specialty Start Date End Date Lucie Montero DO [address] [facility] [address] PCP - General Family Medicine 10/08/23 documented as of this encounter
--- OUTSIDE RECORDS SUMMARY | 2023-11-12 22:26 | External Medical Summary | Summary of Care ---
Author Name Unknown Organization [facility] Address [address] [place] [address] Phone [phone] Care Team Providers Care Pediatric Orthodontist Name Role Phone MaricarmenLucie suh Cecilia NAILS Primary Care Provider [phone] Reason for Visit * Reason Comments Dosage Adjustment In Person (Anticoag Cl inic) Medication Management Encounter Details Date Type Department Care Team (Late st Contact Info) Description 10/08/2023 9:[address] [facility] Pharmacy Family Practice [address] [address] [place], Pharmacist [address] [phone] Encounter for long-term (current) use of medications* Allergies Active Allergy Reactions Criticality Noted Date [...] as of this encounter (statuses as of 10/09/2023) Medications Medication Sig Dispensed Refills Start Date [...] Tablet before bedtime. 0 10/05/2023 Active Zinc 10 MG Mouth/Throat Lozenge Take by mouth . 0 12/14/202 3 Discontinue d(Medicatio n List Clean Up) [...] as of this encounter (statuses as of 10/09/2023) Active Problems Problem Noted Date Diagnosed Date [...] as of this encounter (statuses as of 10/09/2023) Resolved Problems Problem Noted Date Diagnosed Date [...] as of this encounter (statuses as of 10/09/2023) Immunizations Name Administration Dates Next Due PPD [...] as of this encounter Progress Notes * Tomy Quigley, Veronica Bourgeois, [facility] - 10/08/2023 8:14 AM EST Medication Therapy [facility] - Medication Reconciliation Ramona Stringer is an 67 year old being seen for medication reconciliation. Prescription insurance information: [employer] Do you have any other prescription coverage: Yes, [facility] Preferred pharmacy: [facility] [x] Problem list reviewed [x] Allergies reviewed and updated if needed [x] Drug interaction check completed [x] HEDIS list addressed Immunizations: patient does not get vaccines Medication Organization/Adherence: Has home care nurse or caregiver: no Patient uses a pill box? Yes, refill(s) completed by self When you are at home, how often do you miss doses of medications? Daily - not taking prescribed allopurinol, HCTZ, Eliquis, Montelukast due to lack of perceived benefit/need. How difficult is it for you to pay for your medications? Not difficult at all How often do you experience side effects from your medications? Less than once a week Labs/Vitals/Risk Scores: The 10-year ASCVD risk score (Gwen MESSINA, et al., 2019) is: 12.9% Values used to calculate the score: Age: 67 years Sex: Female Is Non- : No Diabetic: No Tobacco smoker: No Systolic Blood Pressure: 144 mmHg Is BP treated: Yes HDL Cholesterol: 63 mg/dL Total Cholesterol: 227 mg/dL BP Readings from Last 3 Encounters: 08/18/23 144/90 05/18/23 144/92 02/26/23 138/88 Recent Labs Units 07/10/22 1141 HEMOGLOBIN A1C - [facility] % 5.3 Recent Labs Units 05/18/23 1340 07/10/22 1141 12/13/21 1004 ESTIMATED GLOMERULAR FILTRATION RATE - [facility] mL/min 88 >90 84 Serum creatinine: 0.7 mg/dL 05/18/23 1340 Estimated creatinine clearance: 84.7 mL/min Assessment & Plan: Medication discrepancies identified: not taking a number of prescribed medications. - Only one gout attack, so doesn't feel she needs allopurinol. Explained that her uric acid level was high which puts her at risk of gout. - not taking HCTZ because she reports it left her dehydrated with bumex - not taking fluticasone or montelukast as they didn't help with her rhinitis - not taking eliquis due to lack of perceived need. Explained that with going in and out of afib, this is crucial to preventing a stroke. - taking 1 potassium instead of 2 tabs daily as bumex dose was decreased to 1 daily Dose/frequency of medications appropriate for current renal function? yes Other medication problems identified: lack of vaccination, uncontrolled HTN Patient education provided: per above Referral pended for follow up management of: N/A Summary- Changes & Recommendations: Med rec completed with patient. Refuses any vaccines. Discussed medication discrepancies with PCP. Repeat med rec visit in 1 year Veronica Barraza [facility] Clinical Pharmacist - Tire And Lube Technician Medication Therapy Management Clinic 10/08/2023, 8:14 AM documented in this encounter Plan of Treatment Upcoming Encounters Date Type Department Care Team (Late st Contact Info) Description 11/13/2023 9:45 AM EST Office Visit Cardiology, [facility] [address] [facility] [place] [address] Maggie Melendez, [address] [place] [address] 12/10/2023 2:20 PM EST Office Visit Family Practice 65 [facility] 293 [facility], [place] [address] Lucie Montero 293 [facility], [place] [address] 12/24/2023 2:00 PM EST Nurse Only Ancillary 65 [facility] 293 [facility], [place] [address] [place], Nurse Annual Wellness Visit [address], [place] [address] 09/30/2024 2:30 PM EST Office Visit Otolaryngology [facility] [address] [place] [address] Femi Bal, DO 132 [facility] [place] [address] Health Maintenance Due Date Last Done Comments [...] as of this encounter Visit Diagnoses Diagnosis Encounter for long-term (current) use of medications- Primary Encounter for long-term (current) use of other medications documented in this encounter Advance Directives Latest Code Status on File Code Status Date Activated Date Inactivated Comments Full Code 07/22/2016 6:01 PM 07/29/2016 8:21 PM This order reflects the patients wishes and were consensually agreed upon. Question Answer Comments Discussion of Advance Directives occurred with: Patient Does the patient have a Living Will? No Does the patient have Health Care Power of Embedded Software Test Engineer? No Code Status History Code Status Date Activated Date Inactivated Comments Full Code 01/22/2015 6:34 AM 01/24/2015 9:44 PM This o rder reflects the patients wishes and were consensually agreed upon. Question Answer Comments Discussion of Advance Directives occurred with: Patient Does the patient have a Living Will? No Does the patient have Health Care Power of Embedded Software Test Engineer? No Care Teams Pediatric Orthodontist Relationship Specialty Start Date End Date Lucie Montero DO [address] [place] [address] PCP - General Family Medicine 10/08/23 documented as of this encounter
--- OUTSIDE RECORDS SUMMARY | 2023-11-12 22:26 | External Medical Summary | Summary of Care ---
Author Name Unknown Organization [facility] Address [address] [place] [address] Phone [phone] Care Team Providers Care Cytology Supervisor Name Role Phone Jenny Pressley MD Primary Care Provider [phone] Reason for Visit * Reason Comments eRx-Medication Refill Encounter Details Date Type Department Care Team (Late st Contact Info) Description 10/06/2023 Refill [facility] [address] [place] [address] Jenny Pressley MD [address] [place] [address] Acute maxillary sinusitis, recurrence not specified Allergies Active Allergy Reactions Criticality Noted Date [...] as of this encounter (statuses as of 10/06/2023) Medications Medication Sig Dispensed Refills Start Date End Date Status Cholecalciferol 25 MCG (1000 UT) Oral Capsule Take by mouth . 0 Active Ascorbic Acid 1000 MG Oral Tablet Take by mouth . 0 Active Zinc 10 MG Mouth/Throat Lozenge Take by mouth . 0 Active Multivitamin Adult Extra C Oral Tablet Chewable Take by mouth . 0 Active Triamcinolone Acetonide 0.1 % External Cream (Aristocort)Indic ations:Rash and nonspecific skin eruption Apply topically to affected area 2 times a day . To affected area. 15 g 1 2 Active Baclofen 10 MG Oral Tablet (Lioresal) TAKE 1 TAB BY MOUTH 2 TIMES A DAY NEEDED FOR CRAMPING OR MUSCLE SPASMS. 60 Tablet 1 2 Active Ondansetron HCl 4 MG Oral Tablet (Zofran) Take 1 Tablet by mouth every 6 hours as needed. 0 Active Ketorolac Tromethamine 10 MG Oral Tablet Take 1 Tablet by mouth 4 times a day as needed. 0 Active Sennosides-Docusa te Sodium 8.6-50 MG Oral Tablet (Senokot-S) Take 1 Tablet by mouth in the morning and 1 Tablet before bedtime. 0 Active Diclofenac Sodium 1 % External Gel (Voltaren) APPLY 1 G TOPICALLY TO AFFECTED AREA IN THE MORNING AND 1 G BEFORE BEDTIME. 100 g 1 3 Active Additional Information Patient not taking.Reported on 09/29/2023 Ventolin HFA 108 (90 Base) MCG/ACT Inhalation Aerosol Solution Inhale 2 Puffs by mouth in the morning and 2 Puffs at noon and 2 Puffs in the evening and 2 Puffs before bedtime. 16 g 3 3 Active Bumetanide 1 MG Oral Tablet (Bumex) TAKE 1 TAB BY MOUTH IN THE MORNING. TAKE ONE EXTRA TAB DAILY NEEDED FOR WEIGHT GAIN DIRECTED 180 Tablet 1 3 Active Potassium Chloride Jihan ER 10 MEQ Oral Tablet Extended Release (Klor-Con M10) TAKE 2 TABLETS BY MOUTH EVERY DAY 180 Tablet 1 3 Active Allopurinol 300 MG Oral Tablet (Zyloprim) Take 1 Tablet by mouth in the morning. 90 Tablet 3 3 Active Additional Information Patient not taking.Reported on 09/29/2023 hydroCHLOROthiazi de 12.5 MG Oral Capsule (Hydrodiuril) Take 1 Capsule by mouth in the morning. 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 30 Tablet 0 3 Active Montelukast Sodium 10 MG Oral Tablet (Singulair) TAKE 1 TABLET BY MOUTH EVERY DAY IN THE MORNING 90 Tablet 1 3 Active Fluticasone Propionate 50 MCG/ACT Nasal Suspension (Flonase)Indicati ons:Acute maxillary sinusitis, recurrence not specified SPRAY 2 SPRAYS INTO EACH NOSTRIL IN THE MORNING 48 mL 1 3 Active Atenolol 25 MG Oral Tablet (Tenormin) Take 1 Tablet by mouth in the morning. 0 Active Montelukast Sodium 10 MG Oral Tablet (Singulair) Take 1 Tablet (10 mg) by mouth in the morning. 90 Tablet 3 2 10/06/20 23 Discontinued Fluticasone Propionate 50 MCG/ACT Nasal Suspension (Flonase)Indicati ons:Acute maxillary sinusitis, recurrence not specified SPRAY 2 SPRAYS INTO EACH NOSTRIL IN THE MORNING 48 mL 1 3 10/06/20 23 Discontinued documented as of this encounter (statuses as of 10/06/2023) Active Problems Problem Noted Date Diagnosed Date [...] as of this encounter (statuses as of 10/06/2023) Resolved Problems Problem Noted Date Diagnosed Date [...] as of this encounter (statuses as of 10/06/2023) Immunizations Name Administration Dates Next Due PPD [...] encounter Miscellaneous Notes * Telephone Encounter - Tania Noonan RPh - 10/06/2023 2:43 PM ESTSigned Prescriptions: Disp Refills Montelukast Sodium 10 MG Oral Tablet (Sing*90 Tab*1 Sig: TAKE 1 TABLET BY MOUTH EVERY DAY IN THE MORNINGAuthorizing Provider: Jenny PRESSLEY User: SARAN TRISWILLIAMFluticasone Propionate 50 MCG/ACT Nasal Finch*48 mL 1 Sig: SPRAY 2 SPRAYS INTO EACH NOSTRIL IN THE MORN INGAuthorizing Provider: Jenny PRESSLEY User: TANIA NOONAN documented in this encounter Plan of Treatment Upcoming Encounters Date Type Department Care Team (Late st Contact Info) Description 10/08/2023 9:40 AM EST Pharmacy Family Practice 65 [facility] 293 [place] [phone] [place], Pharmacist [address], [place] [address] 10/08/2023 10:00 AM EST Office Visit Family Practice 65 [facility] [phone] Lucie Montero, DO [address] [place] [address] 11/19/2023 1:00 PM EST Office Visit Family Practice, [place] [address] [facility] [place] [address] Jenny Pressley MD [address] [place] [address] 11/26/2023 2:00 PM EST Nurse Only Ancillary Department, [place] [address] [facility] [place] [address] [place], Nurse Annual Wellness [address] [place] [facility] [place] [address] 09/30/2024 2:30 PM EST Office Visit Otolaryngology [facility] 132 [place] [address] Femi Bal DO 132 [place] [address] Health Maintenance Due Date Last Done Comments COVID-19 Vaccine (#1) 05/20/1956 Pneumococcal Vaccine: 65+ Years (1 - PCV) 1960 DTaP,Tdap,and Td Vaccines (1 - Tdap) 1973 Mammogram 1994 Zoster Vaccines (1 of 2) 2004 COLONOSCOPY-EVERY 5 YRS AGES 18-100 06/24/2021 06/24/2016, 06/24/2016 Influenza Vaccine (FLU shot) (#1) 2023 Depression Screening 11/25/2023 10/06/2023, 01/30/2015 (Declined) GFR 05/18/2024 05/18/2023, 11/04/2022, 07/10/2022, Additional history exists Albumin/Creatinine Ratio 05/18/2026 [...] as of this encounter Visit Diagnoses Diagnosis Acute maxillary sinusitis, recurrence not specified documented in this encounter Advance Directives Latest [...] patient have Health Care Power of Medical Services Assistant? No Code Status History Code Status Date Activated Date Inactivated Comments Full Code 01/22/2015 6:34 AM 01/24/2015 9:44 PM This o rder reflects the patients wishes and were consensually agreed upon. Question Answer Comments Discussion of Advance Directives occurred with: Patient Does the patient have a Living Will? No Does the patient have Health Care Power of Medical Services Assistant? No Care Teams Cytology Supervisor Relationship Specialty Start Date End Date Jenny Pressley MD [address] [place] [address] PCP - General Internal Medicine 10/06/22 documented as of this encounter
--- OUTSIDE RECORDS SUMMARY | 2023-11-12 22:27 | External Medical Summary | Summary of Care ---
Author Name Unknown Organization [facility] Address [address] [place] [address] Phone [phone] Care Team Providers Care Segmental Paving Supervisor Name Role Phone Jenny Pressley MD Primary Care Provider [phone] Encounter Details Date Type Department Care Team (Late st Contact Info) Description 09/30/2023 Telephone Sleep Disorders, [address] [address] Michell Jaimes MD [address] [place] [address] Allergies Active Allergy Reactions Criticality Noted Date [...] encounter Miscellaneous Notes * Telephone Encounter - Taras Cooper OSA - 09/30/2023 8:14 AM EST Orders in 09/30 [facility] supplies documented in this encounter Plan of Treatment Upcoming Encounters Date Type Department Care Team (Late st Contact Info) Description 09/30/2023 2:30 PM EST Office Visit Otolaryngology [facility] [address] [place] [address] Femi Bal DO [address] [place] [address] 11/19/2023 1:00 PM EST Office Visit Family [facility] [place] [address] [facility] [phone] Jenny Pressley MD [address] [place] [address] 11/26/2023 2:00 PM EST Nurse Only Ancillary Department, [place] [address] [place] [facility] [place] [address] [place], Nurse Annual Wellness [address] [place] [address] Health Maintenance Due Date Last Done Comments [...] the patient have Health Care Power of Cancer Center Director? No Code Status History Code Status Date Activated Date Inactivated Comments Full Code 01/22/2015 6:34 AM 01/24/2015 9:44 PM This o rder reflects the patients wishes and were consensually agreed upon. Question Answer Comments Discussion of Advance Directives occurred with: Patient Does the patient have a Living Will? No Does the patient have Health Care Power of Cancer Center Director? No Care Teams Segmental Paving Supervisor Relationship Specialty Start Date End Date Jenny Pressley MD [address] [place] [address] PCP - General Internal Medicine 10/06/22 documented as of this encounter
--- OUTSIDE RECORDS SUMMARY | 2023-11-12 22:27 | External Medical Summary | Summary of Care ---
Author Name Unknown Organization [facility] Address [address] [place] [address] Phone [phone] Care Team Providers Care Aws Developer Name Role Phone Jenny Pressley MD Primary Care Provider [phone] Encounter Details Date Type Department Care Team (Late st Contact Info) Description 09/11/2023 Telephone [facility] [address] [place] [address] Jenny Pressley MD [address] [place] [address] Allergies Active Allergy Reactions Criticality [...] as of this encounter (statuses as of 09/11/2023) Medications Medication Sig Dispensed Refills Start Date End Date Status Cholecalciferol 25 MCG (1000 UT) Oral Capsule Take by mouth . 0 Active Ascorbic Acid 1000 MG Oral Tablet Take by mouth . 0 Activ e Zinc 10 MG Mouth/Throat Lozenge Take by mouth . 0 Active Multivitamin Adult Extra C Oral Tablet Chewable Take by mouth . 0 Acti ve Triamcinolone Acetonide 0.1 % External Cream (Aristocort)Indica tions:Rash and nonspecific skin eruption Apply topically to [...] times a day as needed. 0 Active Sennosides-Docusat e Sodium 8.6-50 MG Oral Tablet (Senokot-S) Take 1 Tablet by mouth in the morning and 1 Tablet before bedtime. 0 Active Montelukast Sodium 10 MG Oral Tablet (Singulair) Take 1 Tablet (10 mg) by mouth in the morning. 90 Tablet 3 10/07/2022 Active Diclofenac Sodium 1 % External Gel (Voltaren) APPLY 1 G TOPICALLY TO AFFECTED AREA IN THE MORNING AND 1 G BEFORE BEDTIME. 100 g 1 11/26/2022 Active Ventolin HFA 108 (90 Base) MCG/ACT Inhalation Aerosol Solution Inhale 2 Puffs by mouth in the morning and 2 Puffs at noon and 2 Puffs in the evening and 2 Puffs before bedtime. 16 g 3 02/26/2023 Active Fluticasone Propionate 50 MCG/ACT Nasal Suspension (Flonase)Indicatio ns:Acute maxillary sinusitis, recurrence not specified SPRAY 2 SPRAYS INTO EACH NOSTRIL IN THE MORNING 48 mL 1 03/30/2023 Active Bumetanide 1 MG Oral Tablet (Bumex) TAKE 1 TAB BY MOUTH IN THE MORNING. TAKE ONE EXTRA TAB DAILY NEEDED FOR WEIGHT GAIN DIRECTED 180 Tablet 1 04/07/2023 Active Potassium Chloride Jihan ER 10 MEQ Oral Tablet Extended Release (Klor-Con M10) TAKE 2 TABLETS BY MOUTH EVERY DAY 180 Tablet 1 04/07/2023 Active hydroCHLOROthiazid e 12.5 MG Oral Capsule (Hydrodiuril) Take 1 Capsule by mouth in the morning. 30 Capsule 5 08/18/2023 Active Allopurinol 300 MG Oral Tablet (Zyloprim) Take 1 Tablet by mouth in the morning. 90 Tablet 3 08/18/2023 Active Phentermine HCl 37.5 MG Oral TabletIndications: Obesity, morbid (more than 100 lbs over ideal weight or BMI > 40) (HCC) Take 1 Tablet by mouth daily before breakfast. 30 Tablet 5 08/20/2023 Active HYDROcodone-Acetam inophen 10-325 MG Oral TabletIndications: Chronic pain syndrome Take 1 Tablet by mouth every 8 hours as needed for Pain, Moderate or Pain, Severe. No driving on medication. Ongoing. 60 Tablet 0 09/11/2023 Active HYDROcodone-Acetam inophen 10-325 MG Oral TabletIndications: Chronic pain syndrome Take 1 Tablet by mouth every 8 hours as needed for Pain, Moderate or Pain, Severe. No driving on medication. Ongoing. 60 Tablet 0 08/18/2023 3 Discontinue d(Refill) documented as of this encounter (statuses as of 09/11/2023) Active Problems Problem Noted Date Diagnosed Date [...] as of this encounter (statuses as of 09/11/2023) Resolved Problems Problem Noted Date Diagnosed Date [...] as of this encounter (statuses as of 09/11/2023) Immunizations Name Administration Dates Next Due PPD [...] Telephone Encounter - Jenny Pressley MD - 09/11/2023 4:13 PM EST Sent ou t med documented in this encounter Plan of Treatment Upcoming Encounters Date Type Department Care Team (Late st Contact Info) Description 09/29/2023 1:40 PM EST Office Visit Sleep Disorders, [facility] [address] [place] [address] Michell Jaimes MD [address] [place], [place] [phone] 09/30/2023 2:30 PM EST Office Visit Otolaryngology [facility] [address] [place] [address] Femi Bal DO [address] [place] [address] 11/19/2023 1:00 PM EST Office Visit Family [facility], [place] [address] [address] [facility] [place] [address] Jenny Pressley MD [address] [place] [facility] [place] [address] 11/26/2023 2:00 PM EST Nurse Only Ancillary Department, [place] [address] [facility] [phone] [place], Nurse Annual Wellness [address] [facility] [place] [address] Health Maintenance Due Date Last Done Comments [...] as of this encounter Visit Diagnoses Diagnosis Chronic pain syndrome documented in this encounter Advance Directives Latest Code Status on File Code Status Date Activated Date Inactivated Comments Full Code 07/22/2016 6:01 PM 07/29/2016 8:21 PM This order reflects the patients wishes and were consensually agreed upon. Question Answer Comments Discussion of Advance Directives occurred with: Patient Does the patient have a Living Will? No Does the patient have Health Care Power of Sewage Screen Operator? No Code Status History Code Status Date Activated Date Inactivated Comments Full Code 01/22/2015 6:34 AM 01/24/2015 9:44 PM This o rder reflects the patients wishes and were consensually agreed upon. Question Answer Comments Discussion of Advance Directives occurred with: Patient Does the patient have a Living Will? No Does the patient have Health Care Power of Sewage Screen Operator? No Care Teams Aws Developer Relationship Specialty Start Date End Date Jenny Pressley MD [address] [facility] [place] [address] PCP - General Internal Medicine 10/06/22 documented as of this encounter
--- OUTSIDE RECORDS SUMMARY | 2023-11-12 22:27 | External Medical Summary | Summary of Care ---
Author Name Unknown Organization [facility] Address [address] [place] [address] Phone [phone] Care Team Providers Care Crushing Machine Operator Name Role Phone Jenny Pressley MD Primary Care Provider [phone] Encounter Details Date Type Department Care Team (Late st Contact Info) Description 09/22/2023 Telephone [facility] [address] [place] [address] Jenny Pressley MD [address] [place] [address] Allergies Active Allergy Reactions Criticality [...] as of this encounter (statuses as of 09/22/2023) Medications Medication Sig Dispensed Refills Start Date [...] 08/18/2023 Active Phentermine HCl 37.5 MG Oral TabletIndications:O besity, morbid (more than 100 lbs over ideal weight or BMI > 40) (HCC) Take 1 Tablet by mouth daily before breakfast. 30 Tablet 5 08/20/2023 Active hydroCHLOROthiazide 12.5 MG Oral Capsule (Hydrodiuril) Take 1 Capsule by mouth in the morning. 90 Capsule 3 09/14/2023 Active HYDROcodone-Acetami nophen 7.5-325 MG Oral TabletIndications:C ontrolled substance agreement signed,Status post right knee replacement,Rotator cuff syndrome of left shoulder Take 1 Tablet by mouth every 8 hours as needed for Pain, Breakthrough or Pain, Severe. 30 Tablet 0 09/15/2023 Active documented as of this encounter (statuses as of 09/22/2023) Active Problems Problem Noted Date Diagnosed Date [...] as of this encounter (statuses as of 09/22/2023) Resolved Problems Problem Noted Date Diagnosed Date [...] as of this encounter (statuses as of 09/22/2023) Immunizations Name Administration Dates Next Due PPD [...] encounter Miscellaneous Notes * Telephone Encounter - Karlie Hill OSA - 09/22/2023 3:21 PM EST LMOM to schedule Mammo. 09/22/2023 * Telephone Encounter - Jenny Pressley MD - 09/22/2023 3:20 PM EST Please schedule mammo documented in this encounter Plan of Treatment Upcoming Encounters Date Type Department Care Team (Late st Contact Info) Description 09/29/2023 1:40 PM EST Office Visit Sleep Disorders, [address] [address] Michell Jaimes MD [address] [place] [address] 09/30/2023 2:30 PM EST Office Visit Otol[facility]ology [facility] [address] [facility] [place] [address] Femi Bal DO [address] [place] [address] 11/19/2023 1:00 PM EST Office Visit [facility], [place] [address] [facility] [phone] Jenny Pressley MD [address] [place] [address] 11/26/2023 2:00 PM EST Nurse Only Ancillary Department, [place] [address] [facility] [id number] [place], Nurse Annual Wellness [address] [facility] [place] [address] Scheduled Orders Name Type Priority Associated Diagnoses Orde r Schedule MAMMOGRAM SCREENING YOVANI BILATERAL Medical Imaging Routine Encounter for screening mammogram for breast cancer Expected: 09/22/2023, Expires: 10/22/2024 Health Maintenance Due Date Last Done Comments [...] this encounter Visit Diagnoses Diagnosis Encounter for screening mammogram for breast cancer- Primary documented in this encounter Advance Directives Latest Code Status on File Code Status Date Activated Date Inactivated Comments Full Code 07/22/2016 6:01 PM 07/29/2016 8:21 PM This order reflects the patients wishes and were consensually agreed upon. Question Answer Comments Discussion of Advance Directives occurred with: Patient Does the patient have a Living Will? No Does the patient have Health Care Power of Assistant Manager Of Operations? No Code Status History Code Status Date Activated Date Inactivated Comments Full Code 01/22/2015 6:34 AM 01/24/2015 9:44 PM This o rder reflects the patients wishes and were consensually agreed upon. Question Answer Comments Discussion of Advance Directives occurred with: Patient Does the patient have a Living Will? No Does the patient have Health Care Power of Assistant Manager Of Operations? No Care Teams Crushing Machine Operator Relationship Specialty Start Date End Date Jenny Pressley MD [address] [place] [facility] [place] [address] PCP - General Internal Medicine 10/06/22 documented as of this encounter
--- OUTSIDE RECORDS SUMMARY | 2023-11-12 22:27 | External Medical Summary | Summary of Care ---
Author Name Unknown Organization [facility] Address [address] [place] [address] Phone [phone] Care Team Providers Care Jig Grinder Set Up Operator Name Role Phone Jenny Pressley MD Primary Care Provider [phone] Encounter Details Date Type Department Care Team (Late st Contact Info) Description 09/14/2023 Refill [facility] [address] [place] [address] Jenny Pressley MD [address] [place] [address] Allergies Active Allergy Reactions Criticality [...] as of this encounter (statuses as of 09/14/2023) Medications Medication Sig Dispensed Refills Start Date [...] 08/18/2023 Active Phentermine HCl 37.5 MG Oral TabletIndications :Obesity, morbid (more than 100 lbs over ideal weight or BMI > 40) (HCC) Take 1 Tablet by mouth daily before breakfast. 30 Tablet 5 08/20/2023 Active HYDROcodone-Aceta minophen 7.5-325 MG Oral TabletIndications :Controlled substance agreement signed,Status post right knee replacement,Rotat or cuff syndrome of left shoulder Take 1 Tablet by mouth every 8 hours as needed for Pain, Breakthrough or Pain, Severe. 30 Tablet 0 09/11/2023 Active hydroCHLOROthiazi de 12.5 MG Oral Capsule (Hydrodiuril) Take 1 Capsule by mouth in the morning. 90 Capsule 3 09/14/2023 Active hydroCHLOROthiazi de 12.5 MG Oral Capsule (Hydrodiuril) Take 1 Capsule by mouth in the morning. 30 Capsule 5 08/18/2023 3 Discontinue d(Refill) documented as of this encounter (statuses as of 09/14/2023) Active Problems Problem Noted Date Diagnosed Date [...] as of this encounter (statuses as of 09/14/2023) Resolved Problems Problem Noted Date Diagnosed Date [...] as of this encounter (statuses as of 09/14/2023) Immunizations Name Administration Dates Next Due PPD [...] Telephone Encounter - Jenny Pressley MD - 09/14/2023 3:45 PM ESTSigned Prescriptions: Disp Refills hydroCHLOROthiazide 12.5 MG Oral Capsule (*90 Cap*3 Sig: Take 1 Capsule by mouth in the morning.Authorizing Provider: JENNY PRESSLEY documented in this encounter Plan of Treatment Upcoming Encounters Date Type Department Care Team (Late st Contact Info) Description 09/29/2023 1:40 PM EST Office Visit Sleep Disorders, [facility] [address] [place] [address] Michell Jaimes MD [address] [place] [address] 09/30/2023 2:30 PM EST Office Visit Otolaryngology [facility] [address] [facility] [place] [address] Femi Bal DO [address] [facility] [place] [address] 11/19/2023 1:00 PM EST [address] [phone] Jenny [facility] [address] [facility] [address] 11/26/2023 2:00 PM EST Nurse Only Ancillary Department, [address] [place] [address] [place], Nurse Annual Wellness [address] [place] [address] Health Maintenance Due Date Last Done Comments [...] the patient have Health Care Power of Recovery Agent? No Code Status History Code Status Date Activated Date Inactivated Comments Full Code 01/22/2015 6:34 AM 01/24/2015 9:44 PM This o rder reflects the patients wishes and were consensually agreed upon. Question Answer Comments Discussion of Advance Directives occurred with: Patient Does the patient have a Living Will? No Does the patient have Health Care Power of Recovery Agent? No Care Teams Jig Grinder Set Up Operator Relationship Specialty Start Date End Date Jenny Pressley MD [address] [facility] [place] [address] PCP - General Internal Medicine 10/06/22 documented as of this encounter
--- OUTSIDE RECORDS SUMMARY | 2023-11-12 22:27 | External Medical Summary | Summary of Care ---
Author Name Unknown Organization [facility] Address [address] [place] [address] Phone [phone] Care Team Providers Care Truss Driver Helper Name Role Phone Jenny Pressley MD Primary Care Provider [phone] Reason for Referral * Medication Prior Authorization - Closed Specialty Diagnoses / Procedures Referred By Contac t Referred To Contact Diagnoses Controlled substance agreement signed Status post right knee replacement Rotator cuff syndrome of left shoulder Jenny Pressley MD [address] [place] [address] Referral ID Status Reason Start Date Expiration Date Visits Re quested Visits Authorized [id number] Closed 999 999 Reason for Visit * Reason Onset Date Comments Medication Refill 09/11/2023 Medication Problem 09/11/2023 Encounter Details Date Type Department Care Team (Late st Contact Info) Description 09/11/2023 Telephone [facility] [address] [place] [phone] Jenny Pressley MD [address] [place] [address] Medication Refill; Medication Problem Allergies Active Allergy Reactions Criticality Noted Date [...] in the morning. 90 Tablet 3 2 Active Diclofenac Sodium 1 % External Gel (Voltaren) APPLY 1 G TOPICALLY TO AFFECTED AREA IN THE MORNING AND 1 G BEFORE BEDTIME. 100 g 1 3 Active Ventolin HFA 108 (90 Base) MCG/ACT Inhalation Aerosol Solution Inhale 2 Puffs by mouth in the morning and 2 Puffs at noon and 2 Puffs in the evening and 2 Puffs before bedtime. 16 g 3 3 Active Fluticasone Propionate 50 MCG/ACT Nasal Suspension (Flonase)Indicati ons:Acute maxillary sinusitis, recurrence not specified SPRAY 2 SPRAYS INTO EACH NOSTRIL IN THE MORNING 48 mL 1 3 Active Bumetanide 1 MG Oral Tablet (Bumex) TAKE 1 TAB BY MOUTH IN THE MORNING. TAKE ONE EXTRA TAB DAILY NEEDED FOR WEIGHT GAIN DIRECTED 180 Tablet 1 3 Active Potassium Chloride Jihan ER 10 MEQ Oral Tablet Extended Release (Klor-Con M10) TAKE 2 TABLETS BY MOUTH EVERY DAY 180 Tablet 1 3 Active hydroCHLOROthiazi de 12.5 MG Oral Capsule (Hydrodiuril) Take 1 Capsule by mouth in the morning. 30 Capsule 5 3 Active Allopurinol 300 MG Oral Tablet (Zyloprim) Take 1 Tablet by mouth in the morning. 90 Tablet 3 3 Active Phentermine HCl 37.5 MG Oral TabletIndications :Obesity, morbid (more than 100 lbs over ideal weight or BMI > 40) (HCC) Take 1 Tablet by mouth daily before breakfast. 30 Tablet 5 3 Active HYDROcodone-Aceta minophen 7.5-325 MG Oral TabletIndications :Controlled substance agreement signed,Status post right knee replacement,Rotat or cuff syndrome of left shoulder Take 1 Tablet by mouth every 8 hours as needed for Pain, Breakthrough or Pain, Severe. 30 Tablet 0 3 Active HYDROcodone-Aceta minophen 10-325 MG Oral TabletIndications :Chronic pain syndrome Take 1 Tablet by mouth every 8 hours as needed for Pain, Moderate or Pain, Severe. No driving on medication. Ongoing. 60 Tablet 0 3 09/11/20 23 Discontinued documented as of this encounter [...] as of this encounter Miscellaneous Notes * Addendum Note - Jenny Pressley MD - 09/11/2023 5:11 PM ESTAddended by: JENNY PRESSLEY on: 09/11/2023 05:11 PM Modules accepted: Orders * Telephone Encounter - Jenny Pressley MD - 09/11/2023 5:11 PM EST Sent out 7.5 vicodin for #30 for now * Telephone Encounter - Silvia Lutz, laborer plumbing - 09/11/2023 4:24 PM EST RE HYDROcodone-Acetaminophen 10-325 MG Oral Tablet Pharmacy called they do not have this in stock and realize the pt needs some meds for week end They do have HYDROcodone-Acetaminophen 7.5-325 MG Oral Tablet in stcok They are asking if could sent alternative for this patient Please advise Thank you for your assistance Silvia Lutz Needle Loom Weaver II [facility] ([facility] (Former[facility]) 09/11/2023,4:25 PM documented in this encounter Plan of Treatment Upcoming Encounters Date Type Department Care Team (Late st Contact Info) Description 09/29/2023 1:40 PM EST Office Visit Sleep Disorders, [facility] [address] [place] [address] Michell Jaimes MD [address] [place] [address] 09/30/2023 2:30 PM EST Office Visit Otol[facility]ology [facility] [address] [place] [address] Femi Bal DO [address] [place] [address] 11/19/2023 1:00 PM EST Office Visit Family Practice, [place] [address] [facility] [place] [phone] Jenny Pressley MD [address] [place] [address] 11/26/2023 2:00 PM EST Nurse Only Ancillary Department, [place] [address] [facility] [id number] [place], Nurse Annual Wellness [address] [place] [address] Health Maintenance Due Date Last Done Comments [...] as of this encounter Visit Diagnoses Diagnosis Status post right knee replacement- Primary Controlled substance agreement signed Encounter for long-term (current) use of other medications Rotator cuff syndrome of left shoulder Disorders of bursae and tendons in shoulder region, unspecified documented in this encounter Advance Directives Latest Code Status on File Code Status Date Activated Date Inactivated Comments Full Code 07/22/2016 6:01 PM 07/29/2016 8:21 PM This order reflects the patients wishes and were consensually agreed upon. Question Answer Comments Discussion of Advance Directives occurred with: Patient Does the patient have a Living Will? No Does the patient have Health Care Power of Garbage Depot Worker? No Code Status History Code Status Date Activated Date Inactivated Comments Full Code 01/22/2015 6:34 AM 01/24/2015 9:44 PM This o rder reflects the patients wishes and were consensually agreed upon. Question Answer Comments Discussion of Advance Directives occurred with: Patient Does the patient have a Living Will? No Does the patient have Health Care Power of Garbage Depot Worker? No Care Teams Truss Driver Helper Relationship Specialty Start Date End Date Jenny Pressley MD [address] [place] [address] PCP - General Internal Medicine 10/06/22 documented as of this encounter
--- OUTSIDE RECORDS SUMMARY | 2023-11-12 22:27 | External Medical Summary | Summary of Care ---
Author Name Unknown Organization [facility] Address [address] [place] [address] Phone [phone] Care Team Providers Care Director Industrial Nursing Name Role Phone Jenny Pressley MD Primary Care Provider [phone] Reason for Visit * Reason Onset Date Comments Medication Refill 09/11/2023 Medication Problem 09/11/2023 Encounter Details Date Type Department Care Team (Late st Contact Info) Description 09/11/2023 Telephone [facility] [address] [place] [address] Jenny Pressley MD [address] [place] [address] Medication Refill; Medication Problem Allergies [...] Active Triamcinolone Acetonide 0.1 % External Cream (Aristocort)Indicati ons:Rash and nonspecific skin eruption Apply topically to [...] Active Fluticasone Propionate 50 MCG/ACT Nasal Suspension (Flonase)Indications :Acute maxillary sinusitis, recurrence not specified SPRAY 2 [...] EVERY DAY 180 Tablet 1 04/07/2023 Active hydroCHLOROthiazide 12.5 MG Oral Capsule (Hydrodiuril) Take 1 Capsule by mouth in the morning. 30 Capsule 5 08/18/2023 Active Allopurinol 300 MG Oral Tablet (Zyloprim) Take 1 Tablet by mouth in the morning. 90 Tablet 3 08/18/2023 Active Phentermine HCl 37.5 MG Oral TabletIndications:Ob esity, morbid (more than 100 lbs over ideal weight or BMI > 40) (HCC) Take 1 Tablet by mouth daily before breakfast. 30 Tablet 5 08/20/2023 Active HYDROcodone-Acetamin ophen 10-325 MG Oral TabletIndications:Ch ronic pain syndrome Take 1 Tablet by mouth every 8 hours as needed for Pain, Moderate or Pain, Severe. No driving on medication. Ongoing. 60 Tablet 0 09/11/2023 Active documented as of this encounter (statuses [...] encounter Miscellaneous Notes * Telephone Encounter - Silvia Lutz PHARM Tech - 09/11/2023 4:24 PM EST RE HYDROcodone-Acetaminophen 10-325 MG Oral Tablet Pharmacy called they do not have this in stock and realize the pt needs some meds for week end They do have HYDROcodone-Acetaminophen 7.5-325 MG Oral Tablet in stcok They are asking if could sent alternative for this patient Please advise Thank you for your assistance Silvia Lutz Control Clerk Subassembly II [facility] ([facility] (Formerly [facility]) 09/11/2023,4:25 PM documented in this encounter Plan of Treatment Upcoming Encounters Date Type Department Care Team (Late st Contact Info) Description 09/29/2023 1:40 PM EST Office Visit Sleep Disorders, [facility] [address] [facility] [place] [address] Michell Jaimes MD [address] [place] [address] 09/30/2023 2:30 PM EST Office Visit Otol[facility]ology [facility] [address] [facility] [place] [address] Femi Bal DO [address] [place] [address] 11/19/2023 1:00 PM EST Office [facility], [place] [address] [facility] [phone] Jenny Pressley MD [address] [facility] [address] 11/26/2023 2:00 PM EST Nurse Only Ancillary Department, [place] [address] [facility] [place] [address] [place], Nurse Annual Wellness [address] [place] [address] Health Maintenance Due Date Last Done Comments [...] the patient have Health Care Power of Professional Model? No Code Status History Code Status Date Activated Date Inactivated Comments Full Code 01/22/2015 6:34 AM 01/24/2015 9:44 PM This o rder reflects the patients wishes and were consensually agreed upon. Question Answer Comments Discussion of Advance Directives occurred with: Patient Does the patient have a Living Will? No Does the patient have Health Care Power of Professional Model? No Care Teams Director Industrial Nursing Relationship Specialty Start Date End Date Jenny Pressley MD [address] [place] [address] PCP - General Internal Medicine 10/06/22 documented as of this encounter
--- OUTSIDE RECORDS SUMMARY | 2023-11-12 22:27 | External Medical Summary | Summary of Care ---
Author Name Unknown Organization [facility] Address [address] [place] [address] Phone [phone] Care Team Providers Care Supervisor Conditioning Yard Name Role Phone Jenny Pressley MD Primary Care Provider [phone] Reason for Visit * Reason Comments Follow Up Encounter Details Date Type Department Care Team (Late st Contact Info) Description 09/29/2023 1:40 PM EST Telemedicine Sleep Disorders, [address] [address] Michell Jaimes MD [address] [place] [address] WILL (obstructive sleep apnea)* Allergies Active Allergy Reactions Criticality Noted Date [...] as of this encounter (statuses as of 09/29/2023) Medications Medication Sig Dispensed Refills Start Date [...] as of this encounter (statuses as of 09/29/2023) Active Problems Problem Noted Date Diagnosed Date [...] as of this encounter (statuses as of 09/29/2023) Resolved Problems Problem Noted Date Diagnosed Date [...] as of this encounter (statuses as of 09/29/2023) Immunizations Name Administration Dates Next Due PPD [...] as of this encounter Progress Notes * Michell Jaimes MD - 09/29/2023 1:58 PM EST Patient location: HOME. I was in a hospital or clinic location. After connecting through televideo, patient was verified with two unique identifiers. Patient (or authorized legal senior patient account representative) wasthen informed that this was a Telemedicine visit and being conducted confidentially over secure lines. Methods to assure confidentiality were taken. Patient acknowledged consent and understanding of privacy and security of the Telemedicine visit. The patient agreed to participate. Name: Ramona Stringer Sex: female : 1955 CC: F/U HPI: Patient is sleeping well, no snoring and feeling well during the day. Bed time: 10-11 PM Wake up time: 8 AM Estimates hours of sleep per night: 7-8 hours Sleep position: side Cleaning equipment regularly ESS: 11/18 ROS: Denies: morning headaches, sore throat, dry mouth, rhinorrhea, nasal congestion, CP, palpitations, SOB, RLS symptoms, parasomnias, reflux, lower extremity edema. Compliance data: DME: [facility] BIPAP 14/9 cmH2O with a FFM Compliance: 100 % AHI: 1.2 Past Medical History: Diagnosis Date Anterior scleritis [...] performed by Eden Hassan DO at OR [facility] PARTIAL REMOVAL OF THYROID LOBE REMOVAL OF SMALL INTESTINE W/FUSION N/A 07/24/2016 ENTERECTOMY SMALL BOWEL RESECTION performed by Eden Hassan DO at [facility] REMOVE TONSILS & ADENOIDS, UNDER 12 T & A, age<12 REPAIR OF NASAL SEPTUM ? 2001 Nasal Septum Repair - Dr. Hernández REVISE MIDDLE EAR & MASTOID 12/16/2011 TYMPANOPLASTY MASTOIDECTOMY WITHOUT OSSICULAR RECONSTRUCTION performed by SEA MCCARTY at [facility] Social History Tobacco Use Smoking status: Never Passive exposure: Past Smokeless tobacco: Never Tobacco comments: no passive smoke exposures Vaping Use Vaping Use: Never used Substance Use Topics Alcohol use: Yes Comment: rarely Drug use: Never Family History Problem Relation Age of Onset Heart Disorder Father [place] Heart Disorder Mother Hypertension Mother Heart Disorder Brother No Past Hx Daughter x4 some have mental health issues No Past Hx Son x3 some have mental health issues Allergies as of 09/29/2023 - Reviewed 09/29/2023 Allergen Reaction Noted Lisinopril Edema face/lips/tongue 01/22/2015 Beta adrenergic blockers Other (Please comment) 11/28/2021 Citalopram Unknown 11/17/2022 Digoxin Psych complications 01/22/2015 Dulcolax [bisacodyl] 06/17/2016 Iodinated contrast media Rash 07/06/2013 Iodine Rash 11/28/2021 Losartan 06/24/2021 Metoprolol 11/03/2014 Sotalol 02/25/2013 Current Outpatient Medications Medication Sig Dispense Refill Cholecalciferol 25 MCG (1000 UT) Oral Capsule Take by mouth . Ascorbic Acid 1000 MG Oral Tablet Take by mouth . Zinc 10 MG Mouth/Throat Lozenge Take by mouth . Multivitamin Adult Extra C Oral Tablet Chewable Take by mouth . Bumetanide 1 MG Oral Tablet (Bumex) TAKE 1 TAB BY MOUTH IN THE MORNING. TAKE ONE EXTRA TAB DAILY ASNEEDED FOR WEIGHT GAIN DIRECTED 180 Tablet 1 Potassium Chloride Jihan ER 10 MEQ Oral Tablet Extended Release (Klor-Con M10) TAKE 2 TABLETS BY MOUTH EVERY DAY 180 Tablet 1 HYDROcodone-Acetaminophen 7.5-325 MG Oral Tablet Take 1 Tablet by mouth every 8 hours as needed forPain, Breakthrough or Pain, Severe. 30 Tablet 0 Triamcinolone Acetonide 0.1 % External Cream (Aristocort) Apply topically to affected area 2 times a day . To affected area. 15 g 1 Baclofen 10 MG Oral Tablet (Lioresal) TAKE 1 TAB BY MOUTH 2 TIMES A DAY NEEDED FOR CRAMPING OR MUSCLE SPASMS. 60 Tablet 1 Ondansetron HCl 4 MG Oral Tablet (Zofran) Take 1 Tablet by mouth every 6 hours as needed. (Patient not taking: Reported on 09/29/2023) Ketorolac Tromethamine 10 MG Oral Tablet Take 1 Tablet by mouth 4 times a day as needed. (Patient not taking: Reported on 11/25/2022) Sennosides-Docusate Sodium 8.6-50 MG Oral Tablet (Senokot-S) Take 1 Tablet by mouth in the morning and 1 Tablet before bedtime. (Patient not taking: Reported on 11/25/2022) Montelukast Sodium 10 MG Oral Tablet (Singulair) Take 1 Tablet (10 mg) by mouth in the morning. (Patient not taking: Reported on 09/29/2023) 90 Tablet 3 Diclofenac Sodium 1 % External Gel (Voltaren) APPLY 1 G TOPICALLY TO AFFECTED AREA IN THE MORNING AND 1 G BEFORE BEDTIME. (Patient not taking: Reported on 09/29/2023) 100 g 1 Ventolin HFA 108 (90 Base) MCG/ACT Inhalation Aerosol Solution Inhale 2 Puffs by mouth in the morning and 2 Puffs at noon and 2 Puffs in the evening and 2 Puffs before bedtime. 16 g 3 Fluticasone Propionate 50 MCG/ACT Nasal Suspension (Flonase) SPRAY 2 SPRAYS INTO EACH NOSTRIL IN THE MORNING (Patient not taking: Reported on 09/29/2023) 48 mL 1 Allopurinol 300 MG Oral Tablet (Zyloprim) Take 1 Tablet by mouth in the morning. (Patient not taking: Reported on 09/29/2023) 90 Tablet 3 Phentermine HCl 37.5 MG Oral Tablet Take 1 Tablet by mouth daily before breakfast. (Patient not taking: Reported on 09/29/2023) 30 Tablet 5 hydroCHLOROthiazide 12.5 MG Oral Capsule (Hydrodiuril) Take 1 Capsule by mouth in the morning. (Patient not taking: Reported on 09/29/2023) 90 Capsule 3 No current facility-administered medications for this visit. Physical Exam: Unable to attain due to nature of telemedicine encounter Assessment: Patient is a 67 yo lady with history of WILL, PAF, CHF WILL PLAN: Continue using CPAP nightly and for all hours of sleep. Recommended routine cleaning and change of supplies as needed. JNC 7 lists WILL as a causal risk factor for hypertension. Effective treatment of hypertension decreases cardiovascular risk/injury. Consider weight loss. Lifestyle modification with diet and exercise changes were encouraged becauseweight loss often results in improvement of sleep disordered breathing. Avoid driving, operating heavy machinery or engaging in any activity that requires full alertness if feeling sleepy, drowsy or otherwise impaired. Reviewed good sleep hygiene and recommended patient keep consistent bed/wake times and to get 7-8 hours of sleep. F/U in one year or sooner if needed. Michell Jaimes MD documented in this encounter Nursing Notes * Jennifer Chaney LPN - 09/29/2023 1:45 PM EST Ramona Stringer [id number] There is no height or weight on file to calculate BMI. Neck Circumference: inches. Current CDL License: No Compliance: AHI: DME: The patient was identified by name and date of .:yes Pt was informed this was a video only visit, and pt agreed to participate.:yes F/U WILL with use of BiPap, download in [employer]. EPWORTH SLEEPINESS SCALE: 0 = would never doze 1 = slight chance of dozing 2 = moderate chance of dozing 3 = high chance of dozing Sitting and reading - 0 Watching TV - 0 Sitting, inactive in a public place - 0 Passenger in a car - 1 Lying down to rest - 0 Sitting and talking - 0 Sitting quietly after lunch - 0 In a car, stopped in traffic - 0 Total - 11/18 FOSQ-10 Q1. Do you have difficulty concentrating on things you do because you are sleepy or tired?No Q2. Do you generally have difficulty remembering things because you are sleepy or tired?No Q3. Do you have difficulty operating a motor vehicle for short distances (less than 100 miles) because you become sleepy? No Q4. Do you have difficulty operating a motor vehicle for long distances (greater than 100 miles) because you become sleepy?No Q5. Do you have difficulty visiting your family or friends in their home because you become sleepy or tired?No Q6. Has your relationship with family, friends or work colleagues been affected because you are sleepy or tired?No Q7. Do you have difficulty watching a movie or video because you become sleepy or tired?No Q8. Do you have difficulty being as active as you want to be in the evening because you are sleepy or tired?No Q9. Do you have difficulty being as active as you want to be in the morning because you are sleepy or tired?No Q10. Has your mood been affected because you are sleepy or tired? No Score 40 documented in this encounter Plan of Treatment Upcoming Encounters Date Type Department Care Team (Late st Contact Info) Description 09/30/2023 2:30 PM EST Office Visit [facility] [address] [facility] [place] [address] Femi Bal DO [address] [facility] [place] [address] 11/19/2023 1:00 PM EST Office Visit [facility] [place] [address] [facility] [phone] Jenny Pressley [facility] [address] [facility] [place] [address] 11/26/2023 2:00 PM EST Nurse Only Ancillary Department, [place] [address] [facility] [place] [address] [place], Nurse [facility] [address] [facility] [address] Health Maintenance Due Date Last Done Comments [...] as of this encounter Visit Diagnoses Diagnosis WILL (obstructive sleep apnea)- Primary Obstructive sleep apnea (adult) (pediatric) documented in this encounter Advance Directives Latest Code Status on File Code Status Date Activated Date Inactivated Comments Full Code 07/22/2016 6:01 PM 07/29/2016 8:21 PM This order reflects the patients wishes and were consensually agreed upon. Question Answer Comments Discussion of Advance Directives occurred with: Patient Does the patient have a Living Will? No Does the patient have Health Care Power of Receiving Room Clerk? No Code Status History Code Status Date Activated Date Inactivated Comments Full Code 01/22/2015 6:34 AM 01/24/2015 9:44 PM This o rder reflects the patients wishes and were consensually agreed upon. Question Answer Comments Discussion of Advance Directives occurred with: Patient Does the patient have a Living Will? No Does the patient have Health Care Power of Receiving Room Clerk? No Care Teams Supervisor Conditioning Yard Relationship Specialty Start Date End Date Jenny Pressley MD [address] [place] [facility] [place] [address] PCP - General Internal Medicine 10/06/22 documented as of this encounter
--- OUTSIDE RECORDS SUMMARY | 2023-11-12 22:27 | External Medical Summary | Summary of Care ---
Author Name Unknown Organization [facility] Address [address] [place] [address] Phone [phone] Care Team Providers Care Welder Experimental Name Role Phone Jenny Pressley MD Primary Care Provider [phone] Encounter Details Date Type Department Care Team (Late st Contact Info) Description 09/22/2023 Telephone [facility] [address] [place] [address] eJnny Pressley MD [address] [place] [address] Allergies Active Allergy Reactions Criticality [...] as of this encounter (statuses as of 09/24/2023) Medications Medication Sig Dispensed Refills Start Date [...] as of this encounter (statuses as of 09/24/2023) Active Problems Problem Noted Date Diagnosed Date [...] as of this encounter (statuses as of 09/24/2023) Resolved Problems Problem Noted Date Diagnosed Date [...] as of this encounter (statuses as of 09/24/2023) Immunizations Name Administration Dates Next Due PPD [...] Telephone Encounter - Karlie Hill OSA - 09/24/2023 10:53 AM EST LMOM. Letter sent. 09/24/2023 * Telephone Encounter - Karlie Hill OSA - 09/22/2023 3:21 PM EST LMOM to schedule Mammo. 09/22/2023 * Telephone Encounter - Jenny Pressley MD - 09/22/2023 3:20 PM EST Please schedule mammo documented in this encounter Plan of Treatment Upcoming Encounters Date Type Department Care Team (Late st Contact Info) Description 09/29/2023 1:40 PM EST Office Visit Sleep Disorders, [facility] [address] [facility] [place] [address] Michell Jaimes MD [address] [place] [address] 09/30/2023 2:30 PM EST Office Visit Otolaryngology [facility] [address] [place] [address] Femi Bal DO [address] [place] [address] 11/19/2023 1:00 PM EST Office Visit Family [facility], [address] [phone] Jenny Pressley MD [address] [place] [address] 11/26/2023 2:00 PM EST Nurse Only Ancillary Department, [address] [place] [address] [place], Nurse Annual Wellness [address] [facility] [place] [address] Scheduled Orders Name Type Priority Associated Diagnoses [...] Additional history exists Lipid Panel 05/18/2028 05/18/2023, 04/1 04/2021, 08/26/2019, Additional history exists DXA Scan Discontinued [...] the patient have Health Care Power of Light Bulb Replacer? No Code Status History Code Status Date Activated Date Inactivated Comments Full Code 01/22/2015 6:34 AM 01/24/2015 9:44 PM This o rder reflects the patients wishes and were consensually agreed upon. Question Answer Comments Discussion of Advance Directives occurred with: Patient Does the patient have a Living Will? No Does the patient have Health Care Power of Light Bulb Replacer? No Care Teams Welder Experimental Relationship Specialty Start Date End Date Jenny Pressley MD [address] [facility] [place] [address] PCP - General Internal Medicine 10/06/22 documented as of this encounter
--- OUTSIDE RECORDS SUMMARY | 2023-11-12 22:27 | External Medical Summary | Summary of Care ---
Author Name Unknown Organization [facility] Address [address] [facility] [place] [address] Phone [phone] Care Team Providers Care Paramedic Supervisor Name Role Phone Jenny Pressley MD Primary Care Provider [phone] Reason for Visit * Reason Comments Follow Up EARS Encounter Details Date Type Department Care Team (Latest Contact Info) Description 09/30/2023 2:30 PM EST Office Visit Otolaryngology [facility] [address] [place] [address] Femi Bal DO [address] [place] [address] Disorder of both mastoids*; History of bilateral mastoidectomy Allergies Active Allergy Reactions Criticality Noted Date [...] Sign Reading Time Taken Comments Blood Pressure - - Pulse - - Temperature 36.3 C (97.3 F) 09/30/2023 2:44 PM ES T Respiratory Rate - - Oxygen Saturation - - Inhaled Oxygen Concentration - - Weight - - Height 166.4 cm (5' 5.5") 09/30/2023 2:44 PM EST Body Mass Index - - documented in this encounter Functional Status Functional [...] as of this encounter Progress Notes * Femi Bal, DO - 09/30/2023 2:30 PM EST Otolaryngology Head and Neck Surgery 09/30/2023 Patient returns today for check of her bilateral mastoid cavities. She states that she has had someintermittent drainage from each ear over the past several weeks. Otherwise has been doing well. Problem List Patient Active Problem List Diagnosis Code ADVANCE [...] colon K57.32 Gout of big toe M10.9 Past Medical History: Diagnosis Date Anterior scleritis [...] performed by Eden Foreman DO at [facility] CREATE EARDRUM OPENING,LOCAL ANESTH Tympanostomy tubes; cholesteotoma repair EGD, FLEXIBLE, DIAGNOSTIC N/A 06/10/2016 normal/ESOPHAGOGASTRODUODENOSCOPY (EGD), FLEXIBLE, TRANSORAL, DIAGNOSTIC performed by Eden Foreman DO at [facility] EXPLORATION OF ABDOMEN N/A 07/24/2016 EXPLORATORY LAPAROTOMY performed by Eden Hassan DO at OR [facility] PARTIAL REMOVAL OF THYROID LOBE REMOVAL OF SMALL INTESTINE W/FUSION N/A 07/24/2016 ENTERECTOMY SMALL BOWEL RESECTION performed by Eden Hassan DO at OR [facility] REMOVE TONSILS & ADENOIDS, UNDER 12 T & A, age<12 REPAIR OF NASAL SEPTUM ? 2001 Nasal Septum Repair - Dr. Hernández REVISE MIDDLE EAR & MASTOID 12/16/2011 TYMPANOPLASTY MASTOIDECTOMY WITHOUT OSSICULAR RECONSTRUCTION performed by SEA MAGANA at [facility] Medications Current Outpatient Medications Medication Sig Dispense Refill Cholecalciferol 25 MCG (1000 UT) Oral Capsule Take by mouth . Ascorbic Acid 1000 MG Oral Tablet Take by mouth . Zinc 10 MG Mouth/Throat Lozenge Take by mouth . Multivitamin Adult Extra C Oral Tablet Chewable Take by mouth . Triamcinolone Acetonide 0.1 % External Cream (Aristocort) [...] taking: Reported on 09/29/2023) 48 mL 1 Bumetanide 1 MG Oral Tablet (Bumex) TAKE 1 TAB BY MOUTH IN THE MORNING. TAKE ONE EXTRA TAB DAILY ASNEEDED FOR WEIGHT GAIN DIRECTED 180 Tablet 1 Potassium Chloride Jihan ER 10 MEQ Oral Tablet Extended Release (Klor-Con M10) TAKE 2 TABLETS BY MOUTH EVERY DAY 180 Tablet 1 Allopurinol 300 MG Oral [...] taking: Reported on 09/29/2023) 90 Capsule 3 HYDROcodone-Acetaminophen 7.5-325 MG Oral Tablet Take 1 Tablet by mouth every 8 hours as needed forPain, Breakthrough or Pain, Severe. 30 Tablet 0 No current facility-administered medications for this visit. Allergies Review of patient's allergies indicates: Allergen Reactions Lisinopril Edema face/lips/tongue Beta Adrenergic Blockers Other (Please comment) Citalopram Unknown Digoxin Psych complications aggitated Other reaction(s): ineffective, Palpitations, psychologically caused depression caused depression Dulcolax [Bisacodyl] Triggered an episode of afib Iodinated Contrast Media Rash Iodine Rash Losartan Metoprolol (toprol) Per pt., made heart "pound" Sotalol Family History Family History Problem Relation Age of Onset Heart Disorder Father [place] Heart Disorder Mother Hypertension Mother Heart Disorder Brother No Past Hx Daughter x4 some have mental health issues No Past Hx Son x3 some have mental health issues Social History Social History Tobacco Use Smoking status: Never Passive exposure: Past Smokeless tobacco: Never Tobacco comments: no passive smoke exposures Substance Use Topics Alcohol use: Yes Comment: rarely Vaping/E-Cigarette Use Vaping/E-Cigarette Use Never User Vaping/E-Cigarette Substances Vaping/E-Cigarette Devices Review of Systems Negative for constitutional, eyes, cardiac, pulmonary, hepatic, renal, digestive, hematologic, epileptic, syncopal, musculo-skeletal, mental health, integumentary, hypertensive, lipid, arthritic, diabetic, thyroid, or neurologic disorders (except as listed in the PMH and Problem List). Physical Examination: There were no vitals taken for this visit. General: This is a healthy appearing female who appears her stated age. The patient is alert and appropriately verbally conversant without hoarseness. Face: The face was inspected and no cutaneous masses or lesions were visualized. There was no erythema or edema noted. Facial movement was symmetric without weakness. No skin lesions were detected. Eyes: Extra-ocular muscle function was intact. No nystagmus was observed. Pupils were equal. Cranial Nerves: Cranial nerves II, III, IV, and were noted to be intact via extra-ocular muscle movement testing. Cranial nerve VII noted to be intact and symmetric by facial movement. Ears: Examination of the ears revealed that the auricles were normally formed with no lesions. The external auditory canals were cleaned of any obstructing cerumen. Bilateral canal wall down mastoidectomies are noted. There is some minimal squamous debris noted in the right-side which was removed with suction. Left is healthy appearing Lungs: Breathing quietly. No use of accessory muscles. Heart: Regular rate. No JVD. Procedure: In order to assess ears in further detail, the patient was brought to the microscope room and the ears were evaluated under the operating microscope. The findings are as noted in the above physical exam. Assessment: 67-year-old female who is status post bilateral canal wall down mastoidectomies and revision mastoidectomies most recently by Dr. Magana Plan: - both mastoid cavities are healthy today. - she will follow-up in 1 year I spent a total of 20 minutes on the date of service in preparation, delivery, and documentation ofthe care provided to the above patient, excluding any time spent on the performance of any procedures or separately billable services. Femi Bal DO, FACS [facility] [place], [place] 09/30/2023 2:50 PM documented in this encounter Nursing Notes * Cinda Galeana LPN - 09/30/2023 2:46 PM EST Chief Complaint Patient presents with Follow Up EARS Patient presents today for routine mastoid cavity care. Pt states she has intermittent left ear pain and intermittent drainage from the right ear. Plan: - both mastoid cavities are healthy today. Right cavity with mild squamous debris noted. This was removed as above - will have her use Floxin drops for about a week into each mastoid cavity - she will follow-up in 1 year Femi Bal DO, FACS [facility] [place] 07/04/2022 12:11 PM documented in this encounter Plan of Treatment Upcoming Encounters Date Type Department Care Team (Late st Contact Info) Description 11/19/2023 1:00 PM EST Office Visit [place] [address] [place] [phone] Jenny Pressley MD [address] [place] [address] 11/26/2023 2:00 PM EST Nurse Only Ancillary Department, [place] [address] [facility] [place] [address] [place], Nurse Annual Wellness [address] [facility] [place] [address] 09/30/2024 2:30 PM EST Office Visit Otolaryngology [facility] [address] [place] [address] Femi Bal, [address] [place] [address] Health Maintenance Due Date Last Done Comments [...] as of this encounter Visit Diagnoses Diagnosis Disorder of both mastoids- Primary History of bilateral mastoidectomy documented in this encounter Advance Directives Latest Code Status on File Code Status Date Activated Date Inactivated Comments Full Code 07/22/2016 6:01 PM 07/29/2016 8:21 PM This order reflects the patients wishes and were consensually agreed upon. Question Answer Comments Discussion of Advance Directives occurred with: Patient Does the patient have a Living Will? No Does the patient have Health Care Power of Intensivist? No Code Status History Code Status Date Activated Date Inactivated Comments Full Code 01/22/2015 6:34 AM 01/24/2015 9:44 PM This o rder reflects the patients wishes and were consensually agreed upon. Question Answer Comments Discussion of Advance Directives occurred with: Patient Does the patient have a Living Will? No Does the patient have Health Care Power of Intensivist? No Care Teams Paramedic Supervisor Relationship Specialty Start Date End Date Jenny Pressley MD [address] [place] [address] PCP - General Internal Medicine 10/06/22 documented as of this encounter
--- OUTSIDE RECORDS SUMMARY | 2023-11-12 22:27 | External Medical Summary | Summary of Care ---
Author Name Unknown Organization [facility] Address [address] [place] [address] Phone [phone] Care Team Providers Care Pleater Name Role Phone Jenny Pressley MD Primary Care Provider [phone] Encounter Details Date Type Department Care Team (Late st Contact Info) Description 09/22/2023 Telephone [facility] [address] [place] [address] Jenny Pressley MD [address] [place] [address] Allergies Active Allergy Reactions Criticality [...] 1:40 PM EST Office Visit Sleep Disorders, [address] [address] Michell Jaimes MD [address] [place] [address] 09/30/2023 2:30 PM EST Office Visit Otolaryngology [facility] [address] [facility] [place] [address] Femi Bal DO [address] [place] [address] 11/19/2023 1:00 PM EST Office Visit Family [facility], [place] [address] [phone] Jenny Pressley MD [address] [place] [address] 11/26/2023 2:00 PM EST Nurse Only Ancillary Department, [place] [address] [address] [phone] [place], Nurse [facility] [address] [place] [facility] [place] [address] Scheduled Orders Name Type Priority Associated Diagnoses [...] the patient have Health Care Power of Baseball Player? No Code Status History Code Status Date Activated Date Inactivated Comments Full Code 01/22/2015 6:34 AM 01/24/2015 9:44 PM This o rder reflects the patients wishes and were consensually agreed upon. Question Answer Comments Discussion of Advance Directives occurred with: Patient Does the patient have a Living Will? No Does the patient have Health Care Power of Baseball Player? No Care Teams Pleater Relationship Specialty Start Date End Date Jenny Pressley MD [address] [place] [address] PCP - General Internal Medicine 10/06/22 documented as of this encounter
--- OUTSIDE RECORDS SUMMARY | 2023-11-12 22:27 | External Medical Summary | Summary of Care ---
Author Name Unknown Organization [facility] Address [address] [place] [address] Phone [phone] Care Team Providers Care Bench Hand Name Role Phone Jenyn Pressley MD Primary Care Provider [phone] Reason for Referral * Medication Prior Authorization - Closed Specialty Diagnoses / Procedures Referred By Contac t Referred To Contact Diagnoses Controlled substance agreement signed Status post right knee replacement Rotator cuff syndrome of left shoulder Jenny Pressley MD [address] [place] [address] Referral ID Status Reason Start Date Expiration Date Visits Re quested Visits Authorized [id number] Closed [phone] Encounter Details Date Type Department Care Team (Late st Contact Info) Description 09/15/2023 Telephone [facility] [address] [place] [address] Jenny Perssley MD [address] [place] [address] Allergies Active Allergy Reactions Criticality [...] as of this encounter (statuses as of 09/15/2023) Medications Medication Sig Dispensed Refills Start Date [...] before breakfast. 30 Tablet 5 08/20/2023 Active hydroCHLOROthiazi de 12.5 MG Oral Capsule (Hydrodiuril) Take 1 Capsule by mouth in the morning. 90 Capsule 3 09/14/2023 Active HYDROcodone-Aceta minophen 7.5-325 MG Oral TabletIndications :Controlled substance agreement signed,Status post right knee replacement,Rotat or cuff syndrome of left shoulder Take 1 Tablet by mouth every 8 hours as needed for Pain, Breakthrough or Pain, Severe. 30 Tablet 0 09/15/2023 Active HYDROcodone-Aceta minophen 7.5-325 MG Oral TabletIndications :Controlled substance agreement signed,Status post right knee replacement,Rotat or cuff syndrome of left shoulder Take 1 Tablet by mouth every 8 hours as needed for Pain, Breakthrough or Pain, Severe. 30 Tablet 0 09/11/2023 3 Discontinue d(Refill) documented as of this encounter (statuses as of 09/15/2023) Active Problems Problem Noted Date Diagnosed Date [...] as of this encounter (statuses as of 09/15/2023) Resolved Problems Problem Noted Date Diagnosed Date [...] as of this encounter (statuses as of 09/15/2023) Immunizations Name Administration Dates Next Due PPD [...] Telephone Encounter - Jenny Pressley MD - 09/15/2023 12:15 PM EST Vicodin 7.5 was sent last week Resent out today * Telephone Encounter - Kaleigh Orta LPN - 09/15/2023 9:23 AM EST Received fax from [facility] the RX for Hydrocodone-acetamin 10-325mg They recommended Hydrocodone-apap 7.5 mg/325 mg Thank you documented in this encounter Plan of Treatment Upcoming Encounters Date Type Department Care Team (Late st Contact Info) Description 09/29/2023 1:40 PM EST Office Visit Sleep Disorders, [facility] [address] [place] [address] Michell Jaimes MD [address] [place] [phone] 09/30/2023 2:30 PM EST Office Visit Otolaryngology [facility] [address] [place] [address] Femi Bal, DO [address] [place] [address] 11/19/2023 1:00 PM EST Office Visit Family Practice, [place] [address] [place] [facility] [phone] Jenny Pressley MD [address] [place], [place] [phone] 11/26/2023 2:00 PM EST Nurse Only Ancillary Department, [place] [address], [place] [phone] [place], Nurse [facility] [address] [place] [address] Health Maintenance Due Date Last Done Comments [...] as of this encounter Visit Diagnoses Diagnosis Controlled substance agreement signed Encounter for long-term (current) use of other medications Status post right knee replacement Rotator cuff syndrome of left shoulder Disorders [...] patient have Health Care Power of Senior Landscape Architect? No Code Status History Code Status Date Activated Date Inactivated Comments Full Code 01/22/2015 6:34 AM 01/24/2015 9:44 PM This o rder reflects the patients wishes and were consensually agreed upon. Question Answer Comments Discussion of Advance Directives occurred with: Patient Does the patient have a Living Will? No Does the patient have Health Care Power of Senior Landscape Architect? No Care Teams Bench Hand Relationship Specialty Start Date End Date Jenny Pressley MD [address] [place] [address] PCP - General Internal Medicine 10/06/22 documented as of this encounter
[2023-11-12] MEDS ORDERED: DIGOXIN 250 MCG in SYRINGE 9 ML IV STA (23:04)
[2023-11-13 00:19] LABS: Adenovirus F 40/41 PCR Not Detected (NotDetected); Astrovirus PCR Not Detected (NotDetected); Campylobacter PCR Not Detected (NotDetected); Cryptosporidium PCR Not Detected (NotDetected); Cyclospora cayetanensis PCR Not Detected (NotDetected); Entamoeba histolytica PCR Not Detected (NotDetected); Enteroaggregative E.coli(EAEC) Not Detected (NotDetected); Enteropathogenic E.coli (EPEC) Not Detected (NotDetected); Enterotoxigenic E.coli (ETEC) Not Detected (NotDetected); Giardia lamblia PCR Not Detected (NotDetected); Norovirus GI/GII PCR Not Detected (NotDetected); Plesiomonas shigelloides PCR Not Detected (NotDetected); Rotavirus A PCR Not Detected (NotDetected); Salmonella PCR Not Detected (NotDetected); Sapovirus PCR Not Detected (NotDetected); Shiga-like Toxin E.coli (STEC) Not Detected (NotDetected); Shigella/Enteroinvasive E.coli Not Detected (NotDetected); Vibrio cholerae PCR Not Detected (NotDetected); Vibrio species PCR Not Detected (NotDetected); Yersinia enterocolitica PCR Not Detected (NotDetected)
[2023-11-13] MEDS: METOPROLOL TARTRATE 1 MG/ML VIAL IV PRN (02:24)
[2023-11-13] MEDS ORDERED: BUMETANIDE 1 MG in SYRINGE 0 ML IV ONE (03:00)
[2023-11-13] MEDS ORDERED: METOPROLOL TARTRATE 1 MG/ML VIAL IV STA (05:05)
[2023-11-13] MEDS ORDERED: DIGOXIN 250 MCG in SYRINGE 9 ML IV STA (06:06)
[2023-11-13] MEDS ORDERED: BUMETANIDE 1 MG TAB PO SCH (09:00)
[2023-11-13] MEDS ORDERED: hydroCHLOROthiazide 25 MG TAB PO SCH (09:00)
[2023-11-13 09:19] LABS: Hematocrit (blood only) 38.3 % (37.0-47.0); Hemoglobin 12.7 g/dl (12.0-16.0); Mean Corpuscular Hemoglobin 29.7 pg (25.0-34.0); Mean Corpuscular Hgb Conc 33.2 g/dL (32.0-36.0); Mean Corpuscular Volume 89.5 fL (80.0-100.0); Mean Platelet Volume 10.5 fL (9.4-12.4); Platelet Count 208 K/uL (130-400); RDW Coefficient of Variation 14.7 % (11.5-14.5); Red Blood Count 4.28 M/uL (4.20-5.40); White Blood Count 9.45 K/ul (4.8-10.8)
[2023-11-13 09:40] LABS: Albumin Globulin Ratio 1.2 (0.9-2); Albumin Level 3.9 gm/dl (3.4-5.0); BUN Creatinine Ratio 24.7 (10-20); Bilirubin,Total 0.7 mg/dl (0.2-1.0); Calcium 9.4 mg/dl (8.6-10.3); Creatinine Clr Calc Pharmacy 92.9 ml/min; Est GFR (African American) 98.1 ml/min; Est GFR (Non-African American) 84.6 ml/min; Globulin 3.3 gm/dl (2.5-4.0); Magnesium 1.8 mg/dl (1.7-2.4); Potassium 3.9 mmol/L (3.5-5.1); Total Protein 7.2 gm/dl (6.0-8.3)
[2023-11-13] MEDS: allopurinoL 300 MG TAB PO SCH (09:48)
[2023-11-13] MEDS: APIXABAN 5 MG TABLET PO SCH ×2 (09:48→20:28)
--- NOTE | 2023-11-13 09:48 | Cardiology Consultation ---
Date of Consultation November 13, 2023 Assessment & Plan (1) Atrial fibrillation with rapid ventricular response: (2) NYHA class 3 heart failure with reduced ejection fraction: (3) Hypertension: (4) Dilated cardiomyopathy: (5) Cardiac left ventricular ejection fraction 10-20 percent: Plan Symptomatic atrial fibrillation with rapid ventricular response. Duration unknown, presumably for weeks. [id number] Score at least 4 points with patient prescribed Eliquis anticoagul ation without interruption since October 20, 2023. Dilated cardiomyopathy. LVEF 20% (09/2023). NYHA class III+ dyspnea. Volume status: Normovolemic to mildly hypervolemic. Options of management discussed with patient. We discussed rate versus rhythm control, antiarrhythmic therapy, cardioversion, repeat ablation, and possible future need for permanent pacemaker implantation followed by AV junction ablation. We discussed her past issues with medications including reported intolerance to metoprolol, previously failing Multaq as well as sotalol. Via shared decision making, we have agreed to the following: - Retrial oral metoprolol and utilize as needed IV Lopressor - Add IV amiodarone - Continue Eliquis anticoagulation, 5 mg twice per day, without interruption. - Supplement potassium and magnesium - Discontinue Singulair if able. - Refer for resting echocardiography - Outpatient electrophysiology evaluation, consideration for ablation Supervising Physician Co-Signing Physician Notes 67-year-old female presented to the hospital 11/12/2022 due to worsening shortness of breath, exertional dyspnea, chest tightness, paroxysmal nocturnal dyspnea, and generalized feeling of unwellness. Atrial fibrillation with rapid ventricular response noted overnight with patient refusing beta-archie therapy, metoprolol due to past intolerance. Comfortable at rest currently, however, reports dyspnea with minimal exertion. No chest discomfort currently. Atrial fibrillation with heart rates up to and exceeding 160 bpm recorded on telemetry. PE: Normotensive. Tachycardic. General: NAD, ill-appearing. Heart: Irregular rhythm, tachycardia, normal S1-S2. No murmur. Lungs: + Rales at the bases bilateral. Extremities: No significant edema. A/P: Agree with above PA-C history, physical exam, assessment and plan. 67-year-old female admitted with acute decompensated heart failure with reduced ejection fraction, severe cardiomyopathy (presumed tachycardia induced although no ischemic evaluation on record) and persistent atrial fibrillation with rapid ventricular response. I had a long discussion with the patient and her family at bedside regarding the need for AV shiloh blocking agents to improve rate control acutely. She is agreeable to addition of oral metoprolol and IV amiodarone to improve rate control at this time. Potential need for direct- current cardioversion during hospitalization discussed if heart rate proves difficult to control. She appears volume overloaded. Recommend discontinuation of oral Bumex and hydrochlorothiazide. Initiate IV diuresis with furosemide 40 mg twice daily. Monitor fluid balance, daily weight, electrolytes, and GFR. History of Present Illness Reason for Consultation: Atrial fibrillation with a rapid ventricular response Requesting Physician: Macie Puente Attending Physician: Dr. Nath History of Present Illness Ms. Ramona Stringer is a 67-year-old female who is being seen at the request of [facility] hospitalist service. Reason for consultation is atrial fibrillation with a rapid ventricular response. Patient with history of symptomatic paroxysmal atrial fibrillation possible intolerances/adverse reactions to medications as well as request to avoid. In the past patient has been prescribed Multaq and sotalol which failed to control the symptomatic atrial fibrillation. In 2014 she underwent an ablation at [facility] and was briefly placed on amiodarone postoperatively which was eventually weaned and discontinued. She reports past intolerances to metoprolol. Resting echocardiography in September 2023 revealed severely reduced LV systolic function, EF 20%, possible tachycardia induced cardiomyopathy. Patient notes plans for possible ablation at [facility] later this month or next as well as second opinion with [facility] Electrophysiology Additional medical problems include hypertension, dyslipidemia, diffuse large B- cell lymphoma, obstructive sleep apnea on CPAP therapy, chronic sinusitis/mastoiditis, iron deficiency anemia, gout, and history of GI bleeding. Patient has notably been prescribed Eliquis anticoagulation since October 20, 2023 without interruption. She was recently admitted to [facility] and [facility] in [place] with atrial fibrillation with a rapid ventricular response and acute decompensated systolic congestive heart failure in the setting of sepsis secondary to pneumonia. Course complicated by colonic distention consistent with acute colonic pseudoobstruction, refusing colonoscopy decompression, minimal response to neostigmine. On November 03, 2022 she left against medical advice. Patient presents to this facility on November 12, 2022 with worsening shortness of breath/exertional dyspnea, chest tightness, fatigue, generalized unwell feeling. Allergies Allergy/AdvReac Type Severity Reaction Status Date / Time lisinopril Allergy Severe Throat Verified 11/12/23 16:06 tightness Iodinated Contrast Media Allergy Intermediate Rash Verified 11/12/23 16:06 citalopram Allergy Mild Rash Verified 11/12/23 16:06 Beta-Blockers AdvReac Intermediate Increase Verified 11/12/23 16:06 (Beta-Adrenergic Bloc of symptoms/conditions digoxin AdvReac Unknown "Did not Verified 11/12/23 16:06 work" Home Medications Medication Instructions Recorded Confirmed Type ascorbic acid (vitamin C) 1,000 mg 1,000 mg PO QPM 07/24/22 11/12/23 History tablet,extended release (Vitamin C ER) atenolol 25 mg tablet 12.5 mg PO DAILY gout 07/24/22 11/12/23 History baclofen 10 mg tablet 10 mg PO BID PRN Muscle Spasm 07/24/22 11/12/23 History bumetanide 1 mg tablet 1 mg PO QPM 07/24/22 11/12/23 History calcium carbonate 600 mg-vitamin 1 tab PO QPM 07/24/22 11/12/23 History D3 10 mcg (400 unit) tablet (Calcium 600 + D(3)) multivitamin 1 tab PO QPM 07/24/22 11/12/23 History potassium chloride 10 mEq 10 meq PO QPM 07/24/22 11/12/23 History tablet,extended release(part/cryst) (Klor-Con M) acetaminophen 500 mg capsule 1,000 mg PO TID PRN Pain 03/26/23 11/12/23 History allopurinol 300 mg tablet 300 mg PO DAILY 11/12/23 11/12/23 History apixaban 5 mg tablet (Eliquis) 5 mg PO BID 11/12/23 11/12/23 History hydrochlorothiazide 12.5 mg capsule 12.5 mg PO DAILY 11/12/23 11/12/23 History hydrocodone 7.5 mg-acetaminophen 1 tab PO Q8H PRN Severe Pain 11/12/23 11/12/23 History 325 mg tablet (Scale Score 7-10) montelukast 10 mg tablet 10 mg PO DAILY 11/12/23 11/12/23 History zinc gluconate 50 mg tablet 50 mg PO QPM 11/12/23 11/12/23 History Patient History Medical History Fibromyalgia HFrEF (heart failure with reduced ejection fraction) WILL on CPAP Left knee DJD Obesity Encounter for pre-operative examination History of COVID-19 Dx 09/2021, symptoms resolved except residual taste/smell impairment Hypertension Osteoarthritis Depression Hyperlipidemia Cancer Lymphoma (2016) s/p treatment in [place], PCP monitors Sleep apnea BIPAP (compliant) Atrial fibrillation Follows with [facility]/Dr. Medina Septic arthritis of knee, bilateral Surgical History History of tonsillectomy and adenoidectomy History of ear surgery LEFT X 2-RIGHT X 1-MASTOIDECTOMY/TYMPANOPLASTY History of sinus surgery History of section History of thyroidectomy History of esophagogastroduodenoscopy (EGD) History of colon resection 2015 FOR BLEEDING TUMOR History of colonoscopy History of cardioversion ~2014 Family History Other Hypertension Social History Smoking Status: Never smoker Second Hand Exposure: Yes (FATHER SMOKED); Do You Dip or Chew Tobacco: No; Hx Alcohol Use: No Hx Substance Use: No Preferred Language: Grenadian Communication Ability: Effective Student Teaching Coordinator Required: No Beliefs That Will Affect Care: None marital status: Single Current Living Situation: Family Current Living Situation Comment: lives in double house with son current occupational status: disabled Other Information That Helps Us Care for You: No Feels Safe at Home: Yes Safety Concerns: Feels Safe At This Time Assistive Devices: Cane Review of Systems Review of Systems: Complete Review of Systems is as stated above, negative, or noncontributory. Physical Exam Physical Exam: General: A&Ox3. NAD. HENT: Normocephalic. Atraumatic. Eyes: PER. Conjunctiva pink, sclera clear. Neck: No carotid bruits. No overt JVD. Heart: Irregularly irregular at 130 bpm. No murmur. Lungs: Diminished. Decreased. Clear to auscultation. No wheeze. Abdomen: +BS. Soft. Nontender. No masses or organomegaly. Extremities: Mild nonpitting edema. No clubbing. No cyanosis. Limited neurological examination is without focal deficits. Pulses: radial=2/4, posterior tibial=2/4. Results & Data Vital Signs (Past 12 Hours) Vital Signs Temp Pulse Pulse Resp BP BP Pulse Ox 11/13/23 08:17 36.4 C L 138 H 19 160/92 H 92 11/13/23 08:03 142 H 11/13/23 06:20 147 H 11/13/23 05:31 147 H 120/81 11/13/23 05:05 142 H 142/85 H 11/13/23 02:39 128 H 11/13/23 02:18 36.5 C 144 H 20 111/84 96 11/12/23 23:29 136 H 11/12/23 23:00 139 H 11/12/23 22:57 36.6 C 134 H 18 125/88 96 O2 Del Method 11/13/23 08:17 Room Air 11/13/23 08:03 11/13/23 06:20 11/13/23 05:31 11/13/23 05:05 11/13/23 02:39 11/13/23 02:18 Room Air 11/12/23 23:29 11/12/23 23:00 11/12/23 22:57 Room Air Laboratory Results Cardiac Enzymes 11/12/23 11/12/23 11/13/23 Range/Units 14:07 21:02 08:46 AST 31 59 H (13-39) U/L Troponin I High Sens 10.6 (0-14) pg/ml B-Natriuretic Peptide 1168 H (0-100) pg/ml Coagulation 11/12/23 Range/Units 21:02 B-Natriuretic Peptide 1168 H (0-100) pg/ml CBC 11/12/23 11/13/23 Range/Units 14:07 08:46 WBC 10.68 9.45 (4.8-10.8) K/ul RBC 4.42 4.28 (4.20-5.40) M/uL Hgb 13.3 12.7 (12.0-16.0) g/dl Hct 39.4 38.3 (37.0-47.0) % Plt Count 234 208 (130-400) K/uL Neut # (Auto) 7.45 H (1.40-6.50) K/uL Lymph # (Auto) 1.74 (1.20-3.40) K/uL [place] # (Auto) 1.31 H (0.11-0.59) K/uL Eos # (Auto) 0.07 (0.00-0.50) K/uL Baso # (Auto) 0.05 (0.00-0.20) K/uL Comprehensive Metabolic Panel 11/12/23 11/13/23 Range/Units 14:07 08:46 Sodium 138 140 (136-145) mmol/L Potassium 4.1 3.9 (3.5-5.1) mmol/L Chloride 102 103 (98-107) mmol/L Carbon Dioxide 28 29 (21-32) mmol/L BUN 19 18 (6-23) mg/dl Creatinine 0.84 0.73 (0.6-1.2) mg/dl Glucose 124 H 125 H (70-99(Fasting)) mg/dl Calcium 9.6 9.4 (8.6-10.3) mg/dl AST 31 59 H (13-39) U/L ALT 48 74 H (7-52) U/L Alkaline Phosphatase 130 H 133 H (34-104) U/L Total Protein 7.4 7.2 (6.0-8.3) gm/dl Albumin 4.0 3.9 (3.4-5.0) gm/dl Intake and Output 11/12/23 11/13/23 11/13/23 22:59 06:59 14:59 Intake Total 1400 / 1520 120 / 1520 Output Total 1601 / 1601 Balance 1400 / -81 -1481 / -81 Intake: IV 1100 / 1100 Acetaminophen 1,000 mg In 100 100 / 100 ml @ 400 mls/hr IV NOW STA Rx#: [id number] Sodium Chloride 0.9% 500 ml @ 500 / 500 999 mls/hr IV .Q31M ONE Rx#: [id number] Sodium Chloride 0.9% 500 ml @ 500 / 500 999 mls/hr IV .Q31M ONE Rx#: [id number] Oral 300 / 420 120 / 420 Output: Urine 1600 / 1600 # Bowel Movements Other: Other Intake Source sips Weight 110.5 kg 110.5 kg Weight Measurement Method Standing Scale Standing Scale Diagnostic Findings EKG on November 12, 2023 demonstrated atrial fibrillation with a rapid ventricular response, 146 bpm. Possible old septal infarct. Inferior T wave abnormality. QTc 402 ms. EKG this morning reveals atrial fibrillation with a rapid ventricular response, 141 bpm with nonspecific STT wave abnormality. Continuous telemetry monitoring reveals persistent atrial fibrillation with heart rates ranging from a low of around 100+ up to 190 bpm. Admission chest x-ray reveals cardiomegaly with mild central pulmonary vascular congestion without overt edema. Selected laboratory work normal white blood cell count. H&H on admission were 13.3 and 39.4. Platelet count was normal at 234 K. Sodium 138. Potassium 4.1. Chloride 102. Bicarb 28. BUN 19. Creatinine 0.84. Magnesium 1.8. TSH normal on November 12, 2023, 2.433 LFTs notably mildly abnormal on November 13, 2023. Total bilirubin normal at 0.7. AST elevated at 59. ALT elevated at 74. Alk phos elevated at 133. (3) Hypertension Hypertension type: primary hypertension Qualified Code(s): I10 - Essential (primary) hypertension
[2023-11-13] MEDS: LORATADINE 10 MG TAB PO SCH (09:49)
[2023-11-13] MEDS: METOPROLOL TARTRATE 25 MG TAB PO SCH ×3 (09:50→20:29)
[2023-11-13] MEDS: MONTELUKAST SODIUM 10 MG TABLET PO SCH (09:50)
[2023-11-13] MEDS ORDERED: AMIODARONE IV BOLUS & DRIP IV STA (10:45)
[2023-11-13] MEDS ORDERED: AMIODARONE / D5W 150 MG/100 ML BAG IV STA (10:45)
[2023-11-13] MEDS ORDERED: STAT IV Infusion **Titration per Protocol STA (10:45)
[2023-11-13] MEDS ORDERED: 0.2 MICRON FILTER SET 1 EACH IV STA (10:45)
[2023-11-13] MEDS ORDERED: AMIODARONE / D5W 360 MG/200 ML BAG IV ONE (10:55)
[2023-11-13] MEDS: FUROSEMIDE 40 MG/4 ML VIAL IV SCH (16:07)
[2023-11-13] MEDS: AMIODARONE / D5W 360 MG/200 ML BAG IV SCH (17:47)
--- NOTE | 2023-11-13 18:10 | Hospitalist Progress Note ---
Date of Service November 13, 2023 Assessment & Plan (1) Atrial fibrillation with rapid ventricular response: (2) HFrEF (heart failure with reduced ejection fraction): (3) Hypertension: (4) Chronic mastoiditis: (5) Fibromyalgia: (6) WILL on CPAP: Plan Ms. Stringer is a 67-year-old female with PMH of paroxysmal atrial fibrillation on Eliquis, HFrEF (EF20%10/21/23), history of dilated cardiomyopathy, hypertension, chronic sinusitis and mastoiditis, iron deficiency anemia, history of diffuse large B-cell lymphoma, WILL on CPAP and other medical problems listed below who presents with palpitations, chest tightness and fatigue over the past few days and was found to have A fib with RVR and admitted for management on 11/12. Recently admitted at [facility] for a fib with RVR, acute decompensated HFrEF and sepsis 2/ PNA and was eventually transferred to [facility] after course was complicated colonic distension consistent with acute colonic pseudo-obstruction. Per review of outpatient records, patient refused colonoscopic decompression and has had minimal response to neostigmine (was c diff negative).The patient began to show improvement on 11/03 and was being monitored closely after being resumed on diet andoralmedications. For her A fib specifically, she was being transitioned from IV medications to oral digoxin 125 mcg daily and metoprolol 25 mg XL daily but refused to stay for monitoring with this regimen and left AMA on 11/03. #Atrial fibrillation with RVR Presented with HR 130s-150s, received 5mg IV Lopressor x 2 in ED with HR in 120s-130s during exam EKG reviewed, showing Afib with RVR; [id number] 4 Infectious workup negative thus far Cardiology on consult, recommendations discussed with PA Discussed case and medication recommendations with Dr. Senior, who recommends trial of PO Lopressor 25mg PO TID and if HR remains elevated, adding 250mcg IV Digoxin and then repeating again 6 hours later if RVR persists Monitor on telemetry, reokace lytes prn Continue anticoagulation with Eliquis Start Amiodarone drip with bolus Start Metoprolol 25mg TID OP EP eval #Compensated HFrEF with echo from 10/21/23 showing reduced EFof 20% #Dilated cardiomyopathy, tachy-mediated Continue home regimen po bumex Monitor fluid status, manage RVR as above #HTN BP normotensive. Discontinue atenolol due to starting Lopressor as above #Chronic mastoiditis Ongoing ENT infections, recently completed abx treatment at [facility] for PNA with Rocephin/Azithro. Contiune loratidine No signs of acute infection #Fibromyalgia Continue home baclofen, PRN Tylenol and PRN [place] for severe pain #WILL Bipap HS DVT Ppx: Eliquis Code status: FULL PCP: Jenny Dispo: Admitted to PCU Admission and Anticipated Discharge Date Admission Date: November 12, 2023 Subjective Remains in a fib rvr, no response to digoxin Patient reports feeling weak and tired, but denies chest pain or palpitations at this time, but notes dyspnea Physical Exam Constitutional: WD/WN, vitals as above Respiratory: normal respiratory effort, lungs clear to auscultation Cardiovascular: tachycardic, irregularly irregular Results & Data Results & Data Vital Signs (Past 12 Hours) Vital Signs Temp Pulse Pulse Resp BP Pulse Ox O2 Del Method 11/13/23 17:36 36.4 C L 118 H 19 108/78 91 Room Air 11/13/23 15:29 159 H 11/13/23 14:22 110 H 11/13/23 12:58 36.8 C 120 H 19 121/84 94 Room Air 11/13/23 08:17 36.4 C L 138 H 19 160/92 H 92 Room Air 11/13/23 08:03 142 H 11/13/23 06:20 147 H Laboratory Results Short CBC 11/13/23 Range/Units 08:46 WBC 9.45 (4.8-10.8) K/ul Hgb 12.7 (12.0-16.0) g/dl Hct 38.3 (37.0-47.0) % Plt Count 208 (130-400) K/uL BMP 11/13/23 08:46 Sodium 140 Potassium 3.9 Chloride 103 Carbon Dioxide 29 BUN 18 Creatinine 0.73 Glucose 125 H Calcium 9.4 Liver Function 11/13/23 Range/Units 08:46 Total Bilirubin 0.7 (0.2-1.0) mg/dl AST 59 H (13-39) U/L ALT 74 H (7-52) U/L Alkaline Phosphatase 133 H (34-104) U/L Albumin 3.9 (3.4-5.0) gm/dl Medications Administered Home Medications Medication Instructions Recorded Confirmed Last Taken ascorbic acid (vitamin C) 1,000 mg 1,000 mg PO QPM 07/24/22 11/12/23 11/11/23 tablet,extended release (Vitamin C ER) atenolol 25 mg tablet 12.5 mg PO DAILY gout 07/24/22 11/12/23 11/12/23 baclofen 10 mg tablet 10 mg PO BID PRN Muscle Spasm 07/24/22 11/12/23 2 Months Ago ~01/24/23 bumetanide 1 mg tablet 1 mg PO QPM 07/24/22 11/12/23 11/12/23 1 MG calcium carbonate 600 mg-vitamin 1 tab PO QPM 07/24/22 11/12/23 11/11/23 D3 10 mcg (400 unit) tablet (Calcium 600 + D(3)) multivitamin 1 tab PO QPM 07/24/22 11/12/23 11/11/23 potassium chloride 10 mEq 10 meq PO QPM 07/24/22 11/12/23 11/11/23 tablet,extended 10 MEQ release(part/cryst) (Klor-Con M) acetaminophen 500 mg capsule 1,000 mg PO TID PRN Pain 03/26/23 11/12/23 03/25/23 allopurinol 300 mg tablet 300 mg PO DAILY 11/12/23 11/12/23 Unknown apixaban 5 mg tablet (Eliquis) 5 mg PO BID 11/12/23 11/12/23 11/12/23 08:00 hydrochlorothiazide 12.5 mg capsule 12.5 mg PO DAILY 11/12/23 11/12/23 Unknown hydrocodone 7.5 mg-acetaminophen 1 tab PO Q8H PRN Severe Pain 11/12/23 11/12/23 Unknown 325 mg tablet (Scale Score 7-10) montelukast 10 mg tablet 10 mg PO DAILY 11/12/23 11/12/23 Unknown zinc gluconate 50 mg tablet 50 mg PO QPM 11/12/23 11/12/23 11/11/23 Active Medications Generic Name Dose Route Start Last Admin Trade Name Freq PRN Reason Stop Dose Admin Acetaminophen 1,000 mg 11/12/23 19:53 11/13/23 14:07 Acetaminophen 500 Mg Tab PO 12/12/23 19:52 1,000 mg TID PRN Administration Pain Allopurinol 300 mg 11/13/23 09:00 11/13/23 09:48 Allopurinol 300 Mg Tab PO 12/13/23 08:59 300 mg DAILY FERNANDA Administration Apixaban 5 mg 11/12/23 21:00 11/13/23 09:48 Apixaban 5 Mg Tablet PO 12/12/23 20:59 5 mg BID FERNANDA Administration Ascorbic Acid 1,000 mg 11/12/23 21:00 11/12/23 20:22 Ascorbic Acid 500 Mg Tab PO 12/12/23 20:59 1,000 mg QPM FERNANDA Administration Calcium/Vitamin D 1 tab 11/12/23 21:00 11/12/23 20:22 Calcium 600mg + Vit D 400 Iu Tab PO 12/12/23 20:59 1 tab QPM FERNANDA Administration Furosemide 40 mg 11/13/23 17:00 11/13/23 16:07 Furosemide 40 Mg/4 Ml Vial IV 12/13/23 16:59 40 mg [id number] FERNANDA Administration Hydrochlorothiazide 12.5 mg 11/13/23 09:00 11/13/23 09:49 Hydrochlorothiazide 25 Mg Tab PO 12/13/23 08:59 12.5 mg DAILY FERNANDA Administration Amiodarone HCl/Dextrose 360 mg in 200 mls @ 16.667 mls/hr 11/13/23 16:55 11/13/23 17:47 Nexterone / D5w IV 12/13/23 16:54 0.5 mg/min .Q12H FERNANDA 16.7 mls/hr Administration 0.5 MG/MIN Loratadine 10 mg 11/13/23 09:00 11/13/23 09:49 Loratadine 10 Mg Tab PO 12/13/23 08:59 10 mg QAM FERNANDA Administration Metoprolol Tartrate 25 mg 11/12/23 21:00 11/13/23 13:58 Metoprolol Tartrate 25 Mg Tab PO 12/12/23 20:59 25 mg TID FERNANDA Administration Metoprolol Tartrate 5 mg 11/12/23 23:05 11/13/23 02:24 Metoprolol Tartrate 1 Mg/Ml Vial IV 12/13/23 00:00 5 mg Q6 PRN Administration Tachycardia Montelukast Sodium 10 mg 11/13/23 09:00 11/13/23 09:50 Montelukast Sodium 10 Mg Tablet PO 12/13/23 08:59 10 mg DAILY FERNANDA Administration Multivitamins 1 tab 11/12/23 21:00 11/12/23 20:21 Multivitamin Tab PO 12/12/23 20:59 1 tab QPM FERNANDA Administration Potassium Chloride 10 meq 11/12/23 21:00 11/12/23 20:21 Potassium Chloride 10 Meq Tabcr PO 12/12/23 20:59 10 meq QPM FERNANDA Administration Zinc Sulfate 220 mg 11/12/23 21:00 11/12/23 20:21 Zinc Sulfate 220 Mg Capsule PO 12/12/23 20:59 220 mg QPM FERNANDA Administration
[2023-11-13] MEDS ORDERED: LORazepam 0.5 MG TAB PO STA (19:38)
[2023-11-13] MEDS: CALCIUM 600MG + VIT D 400 IU TAB PO SCH (20:28)
[2023-11-13] MEDS: ASCORBIC ACID 500 MG TAB PO SCH (20:28)
[2023-11-13] MEDS: MULTIVITAMIN TAB PO SCH (20:29)
[2023-11-13] MEDS: ZINC SULFATE 220 MG CAPSULE PO SCH (20:30)
[2023-11-13] MEDS: POTASSIUM CHLORIDE 10 MEQ TABCR PO SCH (20:30)
--- NOTE | 2023-11-13 23:05 | Electrocardiogram Report ---
Test Reason : Blood Pressure : / mmHG Vent. Rate : 146 BPM Atrial Rate : 000 BPM P-R Int : 000 ms QRS Dur : 088 ms QT Int : 258 ms P-R-T Axes : 000 -03 137 degrees QTc Int : 402 ms Atrial fibrillation with rapid ventricular response Septal infarct , age undetermined Nonspecific T wave abnormality Abnormal ECG When compared with ECG of 26-MAR-2023 18:10, Nonspecific T wave abnormality, worse in Anterolateral leads Premature ventricular complexes are no longer Present Confirmed by Jerzy Rojas ([id number]) on 11/13/2023 11:05:34 PM Referred By: Sidney Saldivar Confirmed By:Jerzy Rojas
--- NOTE | 2023-11-13 23:06 | Electrocardiogram Report ---
Test Reason : Blood Pressure : / mmHG Vent. Rate : 141 BPM Atrial Rate : 326 BPM P-R Int : 000 ms QRS Dur : 092 ms QT Int : 294 ms P-R-T Axes : 000 041 220 degrees QTc Int : 450 ms Atrial fibrillation with rapid ventricular response Nonspecific ST and T wave abnormality Abnormal ECG When compared with ECG of 12-NOV-2023 14:01, Criteria for Septal infarct are no longer Present Nonspecific T wave abnormality, improved in Anterolateral leads Confirmed by Jerzy Rojas ([id number]) on 11/13/2023 11:05:56 PM Referred By: Sidney Saldivar Confirmed By:Jerzy Rojas
[2023-11-14] MEDS ORDERED: LORazepam 0.5 MG TAB PO STA (00:24)
[2023-11-14] MEDS: AMIODARONE / D5W 360 MG/200 ML BAG IV SCH ×2 (05:50→18:34)
[2023-11-14 06:25] LABS: Hematocrit (blood only) 38.7 % (37.0-47.0); Hemoglobin 12.7 g/dl (12.0-16.0); Mean Corpuscular Hemoglobin 29.8 pg (25.0-34.0); Mean Corpuscular Hgb Conc 32.8 g/dL (32.0-36.0); Mean Corpuscular Volume 90.8 fL (80.0-100.0); Mean Platelet Volume 10.3 fL (9.4-12.4); Platelet Count 220 K/uL (130-400); RDW Coefficient of Variation 14.6 % (11.5-14.5); RDW Standard Deviation 48.3 fL (36.4-46.3); Red Blood Count 4.26 M/uL (4.20-5.40); White Blood Count 7.94 K/ul (4.8-10.8)
[2023-11-14 06:44] LABS: Albumin Globulin Ratio 1.1 (0.9-2); Albumin Level 3.8 gm/dl (3.4-5.0); BUN Creatinine Ratio 23.2 (10-20); Bilirubin,Total 0.9 mg/dl (0.2-1.0); Calcium 9.8 mg/dl (8.6-10.3); Creatinine Clr Calc Pharmacy 82.7 ml/min; Est GFR (African American) 85.2 ml/min; Est GFR (Non-African American) 73.5 ml/min; Globulin 3.4 gm/dl (2.5-4.0); Magnesium 1.8 mg/dl (1.7-2.4); Phosphorus 4.2 mg/dl (2.5-4.9); Potassium 3.4 mmol/L (3.5-5.1); Total Protein 7.2 gm/dl (6.0-8.3)
[2023-11-14] MEDS ORDERED: POTASSIUM CHLORIDE CRTAB 20 MEQ TABCR PO STA (08:19)
[2023-11-14] MEDS: METOPROLOL TARTRATE 25 MG TAB PO SCH ×2 (09:34→14:13)
[2023-11-14] MEDS: APIXABAN 5 MG TABLET PO SCH ×2 (09:34→20:26)
[2023-11-14] MEDS: allopurinoL 300 MG TAB PO SCH (09:35)
[2023-11-14] MEDS: LORATADINE 10 MG TAB PO SCH (09:35)
[2023-11-14] MEDS: MONTELUKAST SODIUM 10 MG TABLET PO SCH (09:36)
[2023-11-14] MEDS: FUROSEMIDE 40 MG/4 ML VIAL IV SCH ×2 (09:56→15:49)
[2023-11-14 11:22] LABS: Appearance Urine Clear (Clear); Bacteria Urine Automated 1+ (Negative); Bilirubin Urine Negative (Negative); Blood Urine Negative (Negative); Cast Urine Automated 0 /lpf (0-5); Color Urine Yellow; Epithelial Cell Urine Auto >30 /lpf (0-5); Glucose Urine UA Negative (Negative); Ketones Urine Negative (Negative); Leukocyte Esterase Urine 1+ (Negative); Nitrite Urine Negative (Negative); Protein Urine Negative (Negative); RBC Urine Automated 0-4 /hpf (0-4); Specific Gravity Urine 1.009 (1.000-1.030); Urobilinogen Urine Negative (Negative); pH Urine 6.5 (4.5-7.5)
[2023-11-14] MEDS: METOPROLOL TARTRATE 1 MG/ML VIAL IV PRN (11:55)
[2023-11-14] MEDS ORDERED: METOPROLOL TARTRATE 1 MG/ML VIAL IV STA (15:11)
--- NOTE | 2023-11-14 15:15 | Hospitalist Progress Note ---
Date of Service November 14, 2023 Assessment & Plan (1) Atrial fibrillation with rapid ventricular response: (2) HFrEF (heart failure with reduced ejection fraction): (3) Hypertension: (4) Chronic mastoiditis: (5) Fibromyalgia: (6) WILL on CPAP: Plan Ms. Stringer is a 67-year-old female with PMH of paroxysmal atrial fibrillation on Eliquis, HFrEF (EF20%10/21/23), history of dilated cardiomyopathy, hypertension, chronic sinusitis and mastoiditis, iron deficiency anemia, history of diffuse large B-cell lymphoma, WILL on CPAP and other medical problems listed below who presents with palpitations, chest tightness and fatigue over the past few days and was found to have A fib with RVR and admitted for management on 11/12. Recently admitted at [facility] for a fib with RVR, acute decompensated HFrEF and sepsis 2/ PNA and was eventually transferred to [facility] after course was complicated colonic distension consistent with acute colonic pseudo-obstruction. Per review of outpatient records, patient refused colonoscopic decompression and has had minimal response to neostigmine (was c diff negative).The patient began to show improvement on 11/03 and was being monitored closely after being resumed on diet andoralmedications. For her A fib specifically, she was being transitioned from IV medications to oral digoxin 125 mcg daily and metoprolol 25 mg XL daily but refused to stay for monitoring with this regimen and left AMA on 11/03. #Atrial fibrillation with RVR Presented with HR 130s-150s, received 5mg IV Lopressor x 2 in ED with HR in 120s-130s during exam EKG reviewed, showing Afib with RVR; [id number] 4 Infectious workup negative thus far Cardiology on consult, recommendations discussed with PA Discussed case and medication recommendations with Dr. Senior, who recommends trial of PO Lopressor 25mg PO TID and if HR remains elevated, adding 250mcg IV Digoxin and then repeating again 6 hours later if RVR persists Monitor on telemetry, reokace lytes prn Continue anticoagulation with Eliquis Continue Amiodarone drip with bolus Increased Metoprolol 50mg TID Continue IV lasix 40mg BID Pending further recommendations #Acute decompensated HFrEF with echo from 10/21/23 showing reduced EFof 20% #Dilated cardiomyopathy, tachy-mediated Monitor fluid status, manage RVR as above Concerns for tachymediated decompensation, po bumex held and IV lasix BID started per Dr Satniago 11/13 afternoon Repleace lydebbi, follow up afternoon BMP #HTN BP normotensive. Discontinue atenolol due to starting Lopressor as above #Chronic mastoiditis Ongoing ENT infections, recently completed abx treatment at [facility] for PNA with Rocephin/Azithro. Contiune loratidine No signs of acute infection #Fibromyalgia Continue home baclofen, PRN Tylenol and PRN [place] for severe pain #WILL Bipap HS DVT Ppx: Eliquis Code status: FULL PCP: Jenny Dispo: Admitted to PCU Admission and Anticipated Discharge Date Admission Date: November 12, 2023 Subjective NAEO Reports feeling marginally better at this time. Still with rates in 110s-140s through out the day Required IV lopressor in addition to PO, as well as amiodarone Physical Exam Constitutional: WD/WN, vitals as above Respiratory: normal respiratory effort, lungs clear to auscultation Cardiovascular: irregular, tachcyardic Gastrointestinal (Abdomen): normal bowel sounds, soft, nontender, no hepatosplenomegaly Results & Data Results & Data Vital Signs (Past 12 Hours) Vital Signs Temp Pulse Pulse Resp BP BP Pulse Ox 11/14/23 14:12 119 H 113/77 11/14/23 12:10 123 H 11/14/23 11:55 119 H 107/71 11/14/23 11:40 36.6 C 119 H 18 107/71 90 11/14/23 08:33 36.4 C L 125 H 18 108/77 93 11/14/23 04:53 37.9 C H 111 H 18 107/77 95 11/14/23 04:27 36.7 C 87 18 127/81 95 O2 Del Method O2 Flow Rate 11/14/23 14:12 11/14/23 12:10 11/14/23 11:55 11/14/23 11:40 Room Air 11/14/23 08:33 Room Air 11/14/23 04:53 CPAP 11/14/23 04:27 Nasal Cannula 2 Laboratory Results Short CBC 11/14/23 Range/Units 05:36 WBC 7.94 (4.8-10.8) K/ul Hgb 12.7 (12.0-16.0) g/dl Hct 38.7 (37.0-47.0) % Plt Count 220 (130-400) K/uL BMP 11/14/23 05:36 Sodium 139 Potassium 3.4 L Chloride 100 Carbon Dioxide 30 BUN 19 Creatinine 0.82 Glucose 103 H Calcium 9.8 Liver Function 11/14/23 Range/Units 05:36 Total Bilirubin 0.9 (0.2-1.0) mg/dl AST 30 (13-39) U/L ALT 54 H (7-52) U/L Alkaline Phosphatase 127 H (34-104) U/L Albumin 3.8 (3.4-5.0) gm/dl Urine 11/14/23 Range/Units 10:35 Urine Color Yellow Urine Appearance Clear (Clear) Urine pH 6.5 (4.5-7.5) Ur Specific [place] 1.009 (1.000-1.030) Urine Protein Negative (Negative) Urine Glucose (UA) Negative (Negative) Medications Administered Home Medications Medication Instructions Recorded Confirmed Last Taken ascorbic acid (vitamin C) 1,000 mg 1,000 mg PO QPM 07/24/22 11/12/23 11/11/23 tablet,extended release (Vitamin C ER) atenolol 25 mg tablet 12.5 mg PO DAILY gout 07/24/22 11/12/23 11/12/23 baclofen 10 mg tablet 10 mg PO BID PRN Muscle Spasm 07/24/22 11/12/23 2 Months Ago ~01/24/23 bumetanide 1 mg tablet 1 mg PO QPM 07/24/22 11/12/23 11/12/23 1 MG calcium carbonate 600 mg-vitamin 1 tab PO QPM 07/24/22 11/12/23 11/11/23 D3 10 mcg (400 unit) tablet (Calcium 600 + D(3)) multivitamin 1 tab PO QPM 07/24/22 11/12/23 11/11/23 potassium chloride 10 mEq 10 meq PO QPM 07/24/22 11/12/23 11/11/23 tablet,extended 10 MEQ release(part/cryst) (Klor-Con M) acetaminophen 500 mg capsule 1,000 mg PO TID PRN Pain 03/26/23 11/12/23 03/25/23 allopurinol 300 mg tablet 300 mg PO DAILY 11/12/23 11/12/23 Unknown apixaban 5 mg tablet (Eliquis) 5 mg PO BID 11/12/23 11/12/23 11/12/23 08:00 hydrochlorothiazide 12.5 mg capsule 12.5 mg PO DAILY 11/12/23 11/12/23 Unknown hydrocodone 7.5 mg-acetaminophen 1 tab PO Q8H PRN Severe Pain 11/12/23 11/12/23 Unknown 325 mg tablet (Scale Score 7-10) montelukast 10 mg tablet 10 mg PO DAILY 11/12/23 11/12/23 Unknown zinc gluconate 50 mg tablet 50 mg PO QPM 11/12/23 11/12/23 11/11/23 Active Medications Generic Name Dose Route Start Last Admin Trade Name Freq PRN Reason Stop Dose Admin Acetaminophen 1,000 mg 11/12/23 19:53 11/13/23 14:07 Acetaminophen 500 Mg Tab PO 12/12/23 19:52 1,000 mg TID PRN Administration Pain Allopurinol 300 mg 11/13/23 09:00 11/14/23 09:35 Allopurinol 300 Mg Tab PO 12/13/23 08:59 300 mg DAILY FERNANDA Administration Apixaban 5 mg 11/12/23 21:00 11/14/23 09:34 Apixaban 5 Mg Tablet PO 12/12/23 20:59 5 mg BID FERNANDA Administration Ascorbic Acid 1,000 mg 11/12/23 21:00 11/13/23 20:28 Ascorbic Acid 500 Mg Tab PO 12/12/23 20:59 1,000 mg QPM FERNANDA Administration Calcium/Vitamin D 1 tab 11/12/23 21:00 11/13/23 20:28 Calcium 600mg + Vit D 400 Iu Tab PO 12/12/23 20:59 1 tab QPM FERNANDA Administration Furosemide 40 mg 11/13/23 17:00 11/14/23 09:56 Furosemide 40 Mg/4 Ml Vial IV 12/13/23 16:59 40 mg BID17 FERNANDA Administration Hydrochlorothiazide 12.5 mg 11/13/23 09:00 11/13/23 09:49 Hydrochlorothiazide 25 Mg Tab PO 12/13/23 08:59 12.5 mg DAILY FERNANDA Administration Amiodarone HCl/Dextrose 360 mg in 200 mls @ 16.667 mls/hr 11/13/23 16:55 11/14/23 05:50 Nexterone / D5w IV 12/13/23 16:54 0.5 mg/min .Q12H FERNANDA 16.7 mls/hr Administration 0.5 MG/MIN Loratadine 10 mg 11/13/23 09:00 11/14/23 09:35 Loratadine 10 Mg Tab PO 12/13/23 08:59 10 mg QAM FERNANDA Administration Metoprolol Tartrate 5 mg 11/12/23 23:05 11/14/23 11:55 Metoprolol Tartrate 1 Mg/Ml Vial IV 12/13/23 00:00 5 mg Q6 PRN Administration Tachycardia Montelukast Sodium 10 mg 11/13/23 09:00 11/14/23 09:36 Montelukast Sodium 10 Mg Tablet PO 12/13/23 08:59 10 mg DAILY FERNANDA Administration Multivitamins 1 tab 11/12/23 21:00 11/13/23 20:29 Multivitamin Tab PO 12/12/23 20:59 1 tab QPM FERNANDA Administration Potassium Chloride 10 meq 11/12/23 21:00 11/13/23 20:30 Potassium Chloride 10 Meq Tabcr PO 12/12/23 20:59 10 meq QPM FERNANDA Administration Zinc Sulfate 220 mg 11/12/23 21:00 11/13/23 20:30 Zinc Sulfate 220 Mg Capsule PO 12/12/23 20:59 220 mg QPM FERNANDA Administration
[2023-11-14 17:07] LABS: BUN Creatinine Ratio 26.5 (10-20); Calcium 9.7 mg/dl (8.6-10.3); Creatinine Clr Calc Pharmacy 69.2 ml/min; Est GFR (African American) 68.7 ml/min; Est GFR (Non-African American) 59.3 ml/min; Potassium 3.7 mmol/L (3.5-5.1)
[2023-11-14] MEDS: AMPICILLIN/SULBACTAM SOD 3,000 MG in SODIUM CHLOR 0.9% MINI-B 100 ML IV SCH (20:14)
[2023-11-14] MEDS: ALPRAZolam 0.5 MG TABLET PO SCH (20:23)
[2023-11-14] MEDS: ASCORBIC ACID 500 MG TAB PO SCH (20:25)
[2023-11-14] MEDS: POTASSIUM CHLORIDE 10 MEQ TABCR PO SCH (20:27)
[2023-11-14] MEDS: MULTIVITAMIN TAB PO SCH (20:27)
[2023-11-14] MEDS: ZINC SULFATE 220 MG CAPSULE PO SCH (20:27)
[2023-11-14] MEDS: CALCIUM 600MG + VIT D 400 IU TAB PO SCH (20:27)
--- NOTE | 2023-11-14 20:31 | Cardiology Progress Note ---
Date of Service November 14, 2023 Assessment & Plan (1) Atrial fibrillation with rapid ventricular response: Plan: pt due to have a repeat PVI ablation with in [facility] at the end of this month in 10 days ventricular rates are still not ideal-i was hoping that we could get off the IV amio drip-start amiodarone 200mg TID change metoprolol tartrate to metoprolol succinate 75mg BID Continue eliquis (2) NYHA class 3 heart failure with reduced ejection fraction: Plan: pt still feels volume overloaded continue iv lasix monitor daily weights and kidney function as well as electrolytes monitor I/os (3) Hypertension: Plan: stable BP (4) Dilated cardiomyopathy: (5) Cardiac left ventricular ejection fraction 10-20 percent: Plan Symptomatic atrial fibrillation with rapid ventricular response [id number] Score at least 4 points goal is to get pt HR controlled in preparation for her AF ablation she has scheduled in [facility] on 11/24/23; start PO amio in addition to the IV with hopes of stopping IV tomorrow; change metoprolol tartrate to toprol for better rate control pt not to miss any eliquis in preparation for her PVI if we are unable to get HR controlled we might have to do a DCCV she is sitll reporting SOB and volume issues so continue IV diuretics D/w hospitalist over the phone and she agreed with my plan Admission and Anticipated Discharge Date Admission Date: November 12, 2023 Subjective pt seen earlier this afternoon she had another episode last night of sudden SOB but after getting 2 ativan she was able to sleep and felt better she has only ambulated around the room-still does not feel at her baseline still having episodes of RVR Review of Systems Review of Systems: All systems reviewed & are unremarkable except as noted in HPI & below Physical Exam Physical Exam: aaox3, NAD NC/AT, EOMI Supple No JVD irregular irregular S1/S2, No murmur CTA b/l no w/r/r soft nt/nd no LE edema b/l skin intact no focal deficits Results & Data Vital Signs (Past 12 Hours) Vital Signs Temp Pulse Pulse Resp BP BP Pulse Ox 11/14/23 19:45 11/14/23 19:00 36.6 C 120 H 20 116/87 95 11/14/23 15:57 107 H 108/56 L 11/14/23 15:42 120 H 119/75 11/14/23 15:14 36.8 C 120 H 18 119/75 93 11/14/23 14:12 119 H 113/77 11/14/23 14:00 113 H 11/14/23 12:10 123 H 11/14/23 11:55 119 H 107/71 11/14/23 11:40 36.6 C 119 H 18 107/71 90 11/14/23 08:33 36.4 C L 125 H 18 108 93 O2 Del Method 11/14/23 19:45 Room Air 11/14/23 19:00 Room Air 11/14/23 15:57 11/14/23 15:42 11/14/23 15:14 Room Air 11/14/23 14:12 11/14/23 14:00 11/14/23 12:10 11/14/23 11:55 11/14/23 11:40 Room Air 11/14/23 08:33 Room Air Laboratory Results Cardiac Enzymes 11/14/23 Range/Units 05:36 AST 30 (13-39) U/L CBC 11/14/23 Range/Units 05:36 WBC 7.94 (4.8-10.8) K/ul RBC 4.26 (4.20-5.40) M/uL Hgb 12.7 (12.0-16.0) g/dl Hct 38.7 (37.0-47.0) % Plt Count 220 (130-400) K/uL Comprehensive Metabolic Panel 11/14/23 11/14/23 Range/Units 05:36 16:29 Sodium 139 139 (136-145) mmol/L Potassium 3.4 L 3.7 (3.5-5.1) mmol/L Chloride 100 100 (98-107) mmol/L Carbon Dioxide 30 29 (21-32) mmol/L BUN 19 26 H (6-23) mg/dl Creatinine 0.82 0.98 (0.6-1.2) mg/dl Glucose 103 H 127 H (70-99(Fasting)) mg/dl Calcium 9.8 9.7 (8.6-10.3) mg/dl AST 30 (13-39) U/L ALT 54 H (7-52) U/L Alkaline Phosphatase 127 H (34-104) U/L Total Protein 7.2 (6.0-8.3) gm/dl Albumin 3.8 (3.4-5.0) gm/dl Intake and Output 11/14/23 11/14/23 11/14/23 06:59 14:59 22:59 Intake Total 300 / 1670 120 / 320 200 / 320 Output Total 650 / 4001 400 / 400 Balance -350 / -2331 -280 / -80 200 / -80 Intake: IV 200 / 500 200 / 200 Amiodarone / D5w 360 mg In 200 200 / 200 200 / 200 ml @ 0.5 MG/MIN 16.667 mls/hr IV .Q12H [facility] Rx#:[id number] Oral 100 / 1170 120 / 120 Output: Urine 650 / 4000 400 / 400 Other: Weight 110.4 kg Weight Measurement Method Standing Scale Medications Administered Current Inpatient Medications Acetaminophen (Acetaminophen 500 Mg Tab) 1,000 mg PO TID PRN PRN Reason: Pain Stop: 12/12/23 19:52 Last Admin: 11/13/23 14:07 Dose: 1,000 mg Hydrocodone Bitart/Acetaminophen (Hydrocodone/Acetaminophen 7.5/325mg Tab) 1 tab PO Q8H PRN PRN Reason: Severe Pain (Scale Score 7-10) Stop: 11/26/23 19:43 Allopurinol (Allopurinol 300 Mg Tab) 300 mg PO DAILY [facility] Stop: 12/13/23 08:59 Last Admin: 11/14/23 09:35 Dose: 300 mg Alprazolam (Alprazolam 0.25 Mg Tablet) 0.25 mg PO Q8H PRN PRN Reason: anixety Stop: 12/14/23 17:21 Alprazolam (Alprazolam 0.5 Mg Tablet) 0.5 mg PO QPM FERNANDA Stop: 12/14/23 20:59 Apixaban (Apixaban 5 Mg Tablet) 5 mg PO BID FERNANDA Stop: 12/12/23 20:59 Last Admin: 11/14/23 09:34 Dose: 5 mg Ascorbic Acid (Ascorbic Acid 500 Mg Tab) 1,000 mg PO QPM [facility] Stop: 12/12/23 20:59 Last Admin: 11/13/23 20:28 Dose: 1,000 mg Baclofen (Baclofen 10 Mg Tab) 10 mg PO BID PRN PRN Reason: Muscle Spasm Stop: 12/12/23 19:43 Calcium/Vitamin D (Calcium 600mg + Vit D 400 Iu Tab) 1 tab PO QPM [facility] Stop: 12/12/23 20:59 Last Admin: 11/13/23 20:28 Dose: 1 tab Furosemide (Furosemide 40 Mg/4 Ml Vial) 40 mg IV BID17 FERNANDA Stop: 12/13/23 16:59 Last Admin: 11/14/23 15:49 Dose: 40 mg Hydrochlorothiazide (Hydrochlorothiazide 25 Mg Tab) 12.5 mg PO DAILY [facility]ERNANDA Stop: 12/13/23 08:59 Last Admin: 11/13/23 09:49 Dose: 12.5 mg Amiodarone HCl/Dextrose (Nexterone / D5w) 360 mg in 200 mls @ 16.667 mls/hr IV .Q12H [facility] Stop: 12/13/23 16:54 Last Admin: 11/14/23 18:34 Dose: 0.5 mg/min, 16.7 mls/hr Ampicillin Sodium/Sulbactam Sodium 3,000 mg/ Sodium Chloride 100 mls @ 100 mls/hr IV Q6H [facility] Stop: 11/21/23 18:59 Loratadine (Loratadine 10 Mg Tab) 10 mg PO QAM [facility] Stop: 12/13/23 08:59 Last Admin: 11/14/23 09:35 Dose: 10 mg Metoprolol Tartrate (Metoprolol Tartrate 1 Mg/Ml Vial) 5 mg IV Q6 PRN PRN Reason: Tachycardia Stop: 12/13/23 00:00 Last Admin: 11/14/23 11:55 Dose: 5 mg Metoprolol Tartrate (Metoprolol Tartrate 50 Mg Tab) 50 mg PO TID [facility] Stop: 12/14/23 20:59 Montelukast Sodium (Montelukast Sodium 10 Mg Tablet) 10 mg PO DAILY [facility] Stop: 12/13/23 08:59 Last Admin: 11/14/23 09:36 Dose: 10 mg Multivitamins (Multivitamin Tab) 1 tab PO QPM [facility]ERNANDA Stop: 12/12/23 20:59 Last Admin: 11/13/23 20:29 Dose: 1 tab Ondansetron HCl (Ondansetron Inj 2 Mg/Ml 2 Ml Vial) 4 mg IV Q6H PRN PRN Reason: Nausea Stop: 12/12/23 19:43 Polyethylene Glycol (Polyethylene (Miralax) 17 Gm Pack) 17 gm PO DAILY PRN PRN Reason: Constipation Stop: 12/12/23 19:43 Potassium Chloride (Potassium Chloride 10 Meq Tabcr) 10 meq PO QPM [facility] Stop: 12/12/23 20:59 Last Admin: 11/13/23 20:30 Dose: 10 meq Zinc Sulfate (Zinc Sulfate 220 Mg Capsule) 220 mg PO QPM [facility] Stop: 12/12/23 20:59 Last Admin: 11/13/23 20:30 Dose: 220 mg (3) Hypertension Hypertension type: primary hypertension Qualified Code(s): I10 - Essential (primary) hypertension
[2023-11-14] MEDS ORDERED: METOPROLOL TARTRATE 50 MG TAB PO SCH (21:00)
[2023-11-15] MEDS: AMPICILLIN/SULBACTAM SOD 3,000 MG in SODIUM CHLOR 0.9% MINI-B 100 ML IV SCH ×2 (02:05→07:52)
[2023-11-15] MEDS ORDERED: Nursing to Pharmacy Communication SCH (02:30)
[2023-11-15 05:55] LABS: Hematocrit (blood only) 39.2 % (37.0-47.0); Hemoglobin 12.7 g/dl (12.0-16.0); Mean Corpuscular Hemoglobin 29.5 pg (25.0-34.0); Mean Corpuscular Hgb Conc 32.4 g/dL (32.0-36.0); Mean Corpuscular Volume 91.2 fL (80.0-100.0); Mean Platelet Volume 10.2 fL (9.4-12.4); Platelet Count 235 K/uL (130-400); RDW Coefficient of Variation 14.9 % (11.5-14.5); RDW Standard Deviation 49.2 fL (36.4-46.3); White Blood Count 7.75 K/ul (4.8-10.8)
[2023-11-15 06:07] LABS: Albumin Globulin Ratio 1.1 (0.9-2); Albumin Level 3.6 gm/dl (3.4-5.0); BUN Creatinine Ratio 27.6 (10-20); Calcium 9.6 mg/dl (8.6-10.3); Creatinine Clr Calc Pharmacy 77.9 ml/min; Est GFR (African American) 79.3 ml/min; Est GFR (Non-African American) 68.5 ml/min; Globulin 3.3 gm/dl (2.5-4.0); Magnesium 1.8 mg/dl (1.7-2.4); Phosphorus 3.5 mg/dl (2.5-4.9); Potassium 3.8 mmol/L (3.5-5.1); Total Protein 6.9 gm/dl (6.0-8.3)
[2023-11-15] MEDS: AMIODARONE / D5W 360 MG/200 ML BAG IV SCH (06:18)
[2023-11-15] MEDS: APIXABAN 5 MG TABLET PO SCH ×2 (08:03→21:42)
[2023-11-15] MEDS: AMIODARONE 200 MG TAB PO SCH ×3 (08:04→16:14)
[2023-11-15] MEDS: METOPROLOL SUCC 25MG EXT REL TAB PO SCH ×2 (08:04→21:41)
[2023-11-15] MEDS: LORATADINE 10 MG TAB PO SCH (08:05)
[2023-11-15] MEDS: MONTELUKAST SODIUM 10 MG TABLET PO SCH (08:05)
[2023-11-15] MEDS: allopurinoL 300 MG TAB PO SCH (08:05)
[2023-11-15] MEDS: FUROSEMIDE 40 MG/4 ML VIAL IV SCH ×2 (10:26→16:05)
--- NOTE | 2023-11-15 15:05 | Hospitalist Progress Note ---
Date of Service November 15, 2023 Assessment & Plan (1) Atrial fibrillation with rapid ventricular response: (2) HFrEF (heart failure with reduced ejection fraction): (3) Hypertension: (4) Chronic mastoiditis: (5) Fibromyalgia: (6) WILL on CPAP: Plan Ms. Stringer is a 67-year-old female with PMH of paroxysmal atrial fibrillation on Eliquis, HFrEF (EF20%10/21/23), history of dilated cardiomyopathy, hypertension, chronic sinusitis and mastoiditis, iron deficiency anemia, history of diffuse large B-cell lymphoma, WILL on CPAP and other medical problems listed below who presents with palpitations, chest tightness and fatigue over the past few days and was found to have A fib with RVR and admitted for management on 11/12. Recently admitted at [facility] for a fib with RVR, acute decompensated HFrEF and sepsis 2/ PNA and [place] [facility] [place] was complicated colonic distension consistent with acute colonic pseudo-obstruction. Per review of outpatient records, patient refused colonoscopic decompression and has had minimal response to neostigmine (was c diff negative).The patient began to show improvement on 11/03 and was being monitored closely after being resumed on diet andoralmedications. For her A fib specifically, she was being transitioned from IV medications to oral digoxin 125 mcg daily and metoprolol 25 mg XL daily but refused to stay for monitoring with this regimen and left AMA on 11/03. Patient's current admission complicated by continued RVR. Patient has ablation scheduled and goal is to get patient to OP ablation, however, rates remain in 130s-140s. Plan for patient to continue amiodarone drip for 24 hours and continued IV diuresis, with likely transition to PO torsemide in am per Cardiology #Atrial fibrillation with RVR Presented with HR 130s-150s, received 5mg IV Lopressor x 2 in ED with HR in 120s-130s during exam EKG reviewed, showing Afib with RVR; [id number] Infectious workup negative thus far Cardiology on consult, recommendations discussed with PA Discussed case and medication recommendations with Dr. Senior, who recommends trial of PO Lopressor 25mg PO TID and if HR remains elevated, adding 250mcg IV Digoxin and then repeating again 6 hours later if RVR persists Monitor on telemetry, replace lytes prn Continue anticoagulation with Eliquis Continue Amiodarone drip, discontinue in am PO amiodarone 200mg TID started Transitioned to 75mg Metoprolol XL BID Continue IV lasix 40mg BID, plan to transition torsemide 60mg Pending further recommendations Discontinued montelukast #Acute decompensated HFrEF with echo from 10/21/23 showing reduced EFof 20% #Dilated cardiomyopathy, tachy-mediated Monitor fluid status, manage RVR as above Concerns for tachymediated decompensation, po bumex held and IV lasix BID started per Dr Santiago 11/13 afternoon Replace lytes prn Transition to PO torsemide 60mg in am #HTN BP normotensive. Discontinue atenolol due to starting Lopressor as above #Acute on Chronic mastoiditis Ongoing ENT infections, recently [place] [facility] [place] Rocephin/Azithro. Contiune loratidine Patient with concerns of recurrent infection, started augmentin #Fibromyalgia Continue home baclofen, PRN Tylenol and PRN Munday for severe pain #WILL Bipap HS #Anxiety Xanax 0.5 mg qhs, and 0.25 prn throughout day/evening DVT Ppx: Eliquis Code status: FULL PCP: Jenny Dispo: Admitted to PCU Admission and Anticipated Discharge Date Admission Date: November 12, 2023 Subjective Feeling better overnight with ativan Noted that left ear/sinuses feeling better since initiation of unasyn Denies any new acute concerns Requesting transition to PO abx 2/2 IV site failure Physical Exam Constitutional: WD/WN, vitals as above ENMT: erythematous turbinates, no drainange, no tenderness to palpation over sinuses Cardiovascular: tachycardia, irregular, 130s-140s on monitor Results & Data Results & Data Vital Signs (Past 12 Hours) Vital Signs Temp Pulse Pulse Resp BP Pulse Ox O2 Del Method 11/15/23 14:35 135 H 11/15/23 11:23 36.9 C 110 H 17 120/66 92 Room Air 11/15/23 10:45 140 H 11/15/23 07:58 36.5 C 109 H 16 127/86 92 Room Air 11/15/23 07:39 118 H 11/15/23 03:51 37.3 C 113 H 18 125/89 95 CPAP Laboratory Results Short CBC 11/15/23 Range/Units 05:10 WBC 7.75 (4.8-10.8) K/ul Hgb 12.7 (12.0-16.0) g/dl Hct 39.2 (37.0-47.0) % Plt Count 235 (130-400) K/uL BMP 11/14/23 11/15/23 16:29 05:10 Sodium 139 140 Potassium 3.7 3.8 Chloride 100 101 Carbon Dioxide 29 31 BUN 26 H 24 H Creatinine 0.98 0.87 Glucose 127 H 99 Calcium 9.7 9.6 Liver Function 11/15/23 Range/Units 05:10 Total Bilirubin 1.0 (0.2-1.0) mg/dl AST 23 (13-39) U/L ALT 40 (7-52) U/L Alkaline Phosphatase 117 H (34-104) U/L Albumin 3.6 (3.4-5.0) gm/dl Medications Administered Home Medications Medication Instructions Recorded Confirmed Last Taken ascorbic acid (vitamin C) 1,000 mg 1,000 mg PO QPM 07/24/22 11/12/23 11/11/23 tablet,extended release (Vitamin C ER) atenolol 25 mg tablet 12.5 mg PO DAILY gout 07/24/22 11/12/23 11/12/23 baclofen 10 mg tablet 10 mg PO BID PRN Muscle Spasm 07/24/22 11/12/23 2 Months Ago ~01/24/23 bumetanide 1 mg tablet 1 mg PO QPM 07/24/22 11/12/23 11/12/23 1 MG calcium carbonate 600 mg-vitamin 1 tab PO QPM 07/24/22 11/12/23 11/11/23 D3 10 mcg (400 unit) tablet (Calcium 600 + D(3)) multivitamin 1 tab PO QPM 07/24/22 11/12/23 11/11/23 potassium chloride 10 mEq 10 meq PO QPM 07/24/22 11/12/23 11/11/23 tablet,extended 10 MEQ release(part/cryst) (Klor-Con M) acetaminophen 500 mg capsule 1,000 mg PO TID PRN Pain 03/26/23 11/12/23 03/25/23 allopurinol 300 mg tablet 300 mg PO DAILY 11/12/23 11/12/23 Unknown apixaban 5 mg tablet (Eliquis) 5 mg PO BID 11/12/23 11/12/23 11/12/23 08:00 hydrochlorothiazide 12.5 mg capsule 12.5 mg PO DAILY 11/12/23 11/12/23 Unknown hydrocodone 7.5 mg-acetaminophen 1 tab PO Q8H PRN Severe Pain 11/12/23 11/12/23 Unknown 325 mg tablet (Scale Score 7-10) montelukast 10 mg tablet 10 mg PO DAILY 11/12/23 11/12/23 Unknown zinc gluconate 50 mg tablet 50 mg PO QPM 11/12/23 11/12/23 11/11/23 Active Medications Generic Name Dose Route Start Last Admin Trade Name Freq PRN Reason Stop Dose Admin Acetaminophen 1,000 mg 11/12/23 19:53 11/13/23 14:07 Acetaminophen 500 Mg Tab PO 12/12/23 19:52 1,000 mg TID PRN Administration Pain Allopurinol 300 mg 11/13/23 09:00 11/15/23 08:05 Allopurinol 300 Mg Tab PO 12/13/23 08:59 300 mg DAILY FERNANDA Administration Alprazolam 0.5 mg 11/14/23 21:00 11/14/23 20:23 Alprazolam 0.5 Mg Tablet PO 12/14/23 20:59 0.5 mg QPM FERNANDA Administration Amiodarone HCl 200 mg 11/15/23 08:00 11/15/23 12:01 Amiodarone 200 Mg Tab PO 12/15/23 07:59 200 mg TIDM FERNANDA Administration Apixaban 5 mg 11/12/23 21:00 11/15/23 08:03 Apixaban 5 Mg Tablet PO 12/12/23 20:59 5 mg BID FERNANDA Administration Ascorbic Acid 1,000 mg 11/12/23 21:00 11/14/23 20:25 Ascorbic Acid 500 Mg Tab PO 12/12/23 20:59 1,000 mg QPM FERNANDA Administration Calcium/Vitamin D 1 tab 11/12/23 21:00 11/14/23 20:27 Calcium 600mg + Vit D 400 Iu Tab PO 12/12/23 20:59 1 tab QPM FERNANDA Administration Furosemide 40 mg 11/13/23 17:00 11/15/23 10:26 Furosemide 40 Mg/4 Ml Vial IV 12/13/23 16:59 40 mg BID17 FERNANDA Administration Amiodarone HCl/Dextrose 360 mg in 200 mls @ 16.667 mls/hr 11/13/23 16:55 11/15/23 06:18 Nexterone / D5w IV 12/13/23 16:54 0.5 mg/min .Q12H FERNANDA 16.7 mls/hr Administration 0.5 MG/MIN Loratadine 10 mg 11/13/23 09:00 11/15/23 08:05 Loratadine 10 Mg Tab PO 12/13/23 08:59 10 mg QAM FERNANDA Administration Metoprolol Succinate 75 mg 11/15/23 09:00 11/15/23 08:04 Metoprolol Succ 25mg Ext Rel Tab PO 12/15/23 08:59 75 mg BID FERNANDA Administration Metoprolol Tartrate 5 mg 11/12/23 23:05 11/14/23 11:55 Metoprolol Tartrate 1 Mg/Ml Vial IV 12/13/23 00:00 5 mg Q6 PRN Administration Tachycardia Montelukast Sodium 10 mg 11/13/23 09:00 11/15/23 08:05 Montelukast Sodium 10 Mg Tablet PO 12/13/23 08:59 10 mg DAILY FERNANDA Administration Multivitamins 1 tab 11/12/23 21:00 11/14/23 20:27 Multivitamin Tab PO 12/12/23 20:59 1 tab QPM FERNANDA Administration Potassium Chloride 10 meq 11/12/23 21:00 11/14/23 20:27 Potassium Chloride 10 Meq Tabcr PO 12/12/23 20:59 10 meq QPM FERNANDA Administration Zinc Sulfate 220 mg 11/12/23 21:00 11/14/23 20:27 Zinc Sulfate 220 Mg Capsule PO 12/12/23 20:59 220 mg QPM FERNANDA Administration Acetaminophen (Acetaminophen 500 Mg Tab) 1,000 mg PO TID PRN PRN Reason: Pain Stop: 12/12/23 19:52 Last Admin: 11/13/23 14:07 Dose: 1,000 mg Documented By: Allopurinol (Allopurinol 300 Mg Tab) 300 mg PO DAILY FERNANDA Stop: 12/13/23 08:59 Last Admin: 11/15/23 08:05 Dose: 300 mg Documented By: Admin: 11/14/23 09:35 Dose: 300 mg Documented By: Admin: 11/13/23 09:48 Dose: 300 mg Documented By: ELEUTERIO Alprazolam (Alprazolam 0.5 Mg Tablet) 0.5 mg PO QPM FRENANDA Stop: 12/14/23 20:59 Last Admin: 11/14/23 20:23 Dose: 0.5 mg Documented By: IOANA Amiodarone HCl (Amiodarone 200 Mg Tab) 200 mg PO TIDM FERNANDA Stop: 12/15/23 07:59 Last Admin: 11/15/23 12:01 Dose: 200 mg Documented By: Admin: 11/15/23 08:04 Dose: 200 mg Documented By: Apixaban (Apixaban 5 Mg Tablet) 5 mg PO BID FERNANDA Stop: 12/12/23 20:59 Last Admin: 11/15/23 08:03 Dose: 5 mg Documented By: Admin: 11/14/23 20:26 Dose: 5 mg Documented By: Admin: 11/14/23 09:34 Dose: 5 mg Documented By: Admin: 11/13/23 20:28 Dose: 5 mg Documented By: Admin: 11/13/23 09:48 Dose: 5 mg Documented By: Admin: 11/12/23 20:22 Dose: 5 mg Documented By: IOANA Ascorbic Acid (Ascorbic Acid 500 Mg Tab) 1,000 mg PO QPM FERNANDA Stop: 12/12/23 20:59 Last Admin: 11/14/23 20:25 Dose: 1,000 mg Documented By: Admin: 11/13/23 20:28 Dose: 1,000 mg Documented By: Admin: 11/12/23 20:22 Dose: 1,000 mg Documented By: IOANA Calcium/Vitamin D (Calcium 600mg + Vit D 400 Iu Tab) 1 tab PO QPM FERNANDA Stop: 12/12/23 20:59 Last Admin: 11/14/23 20:27 Dose: 1 tab Documented By: Admin: 11/13/23 20:28 Dose: 1 tab Documented By: Admin: 11/12/23 20:22 Dose: 1 tab Documented By: IOANA Furosemide (Furosemide 40 Mg/4 Ml Vial) 40 mg IV BID17 FERNANDA Stop: 12/13/23 16:59 Last Admin: 11/15/23 10:26 Dose: 40 mg Documented By: Admin: 11/14/23 15:49 Dose: 40 mg Documented By: Admin: 11/14/23 09:56 Dose: 40 mg Documented By: Admin: 11/13/23 16:07 Dose: 40 mg Documented By: ENS Amiodarone HCl/Dextrose (Nexterone / D5w) 360 mg in 200 mls @ 16.667 mls/hr IV .Q12H FERNANDA Stop: 12/13/23 16:54 Last Admin: 11/15/23 06:18 Dose: 0.5 mg/min, 16.7 mls/hr Documented By: LSG Co-signed By: FABIAN Infusion: 11/15/23 06:18 Dose: Infused Documented By: LSG Co-signed By: FABIAN Admin: 11/14/23 18:34 Dose: 0.5 mg/min, 16.7 mls/hr Documented By: Co-signed By: MORELIA Infusion: 11/14/23 17:49 Dose: Infused Documented By: Co-signed By: MORELIA Admin: 11/14/23 05:50 Dose: 0.5 mg/min, 16.7 mls/hr Documented By: LSG Co-signed By: FABIAN Infusion: 11/14/23 05:50 Dose: Infused Documented By: LSG Co-signed By: FABIAN Admin: 11/13/23 17:47 Dose: 0.5 mg/min, 16.7 mls/hr Documented By: Co-signed By: JET Loratadine (Loratadine 10 Mg Tab) 10 mg PO QAM FERNANDA Stop: 12/13/23 08:59 Last Admin: 11/15/23 08:05 Dose: 10 mg Documented By: Admin: 11/14/23 09:35 Dose: 10 mg Documented By: Admin: 11/13/23 09:49 Dose: 10 mg Documented By: ELEUTERIO Metoprolol Succinate (Metoprolol Succ 25mg Ext Rel Tab) 75 mg PO BID FERNANDA Stop: 12/15/23 08:59 Last Admin: 11/15/23 08:04 Dose: 75 mg Documented By: Metoprolol Tartrate (Metoprolol Tartrate 1 Mg/Ml Vial) 5 mg IV Q6 PRN PRN Reason: Tachycardia Stop: 12/13/23 00:00 Last Admin: 11/14/23 11:55 Dose: 5 mg Documented By: Admin: 11/13/23 02:24 Dose: 5 mg Documented By: IOANA Montelukast Sodium (Montelukast Sodium 10 Mg Tablet) 10 mg PO DAILY FERNANDA Stop: 12/13/23 08:59 Last Admin: 11/15/23 08:05 Dose: 10 mg Documented By: Admin: 11/14/23 09:36 Dose: 10 mg Documented By: Admin: 11/13/23 09:50 Dose: 10 mg Documented By: ELEUTERIO Multivitamins (Multivitamin Tab) 1 tab PO QPM FERNANDA Stop: 12/12/23 20:59 Last Admin: 11/14/23 20:27 Dose: 1 tab Documented By: Admin: 11/13/23 20:29 Dose: 1 tab Documented By: Admin: 11/12/23 20:21 Dose: 1 tab Documented By: IOANA Potassium Chloride (Potassium Chloride 10 Meq Tabcr) 10 meq PO QPM FERNANDA Stop: 12/12/23 20:59 Last Admin: 11/14/23 20:27 Dose: 10 meq Documented By: Admin: 11/13/23 20:30 Dose: 10 meq Documented By: Admin: 11/12/23 20:21 Dose: 10 meq Documented By: IOANA Zinc Sulfate (Zinc Sulfate 220 Mg Capsule) 220 mg PO QPM FERNANDA Stop: 12/12/23 20:59 Last Admin: 11/14/23 20:27 Dose: 220 mg Documented By: Admin: 11/13/23 20:30 Dose: 220 mg Documented By: Admin: 11/12/23 20:21 Dose: 220 mg Documented By: IOANA
[2023-11-15] MEDS: AMOXICILLIN/CLAVULANATE 875 MG TAB PO SCH (16:15)
--- NOTE | 2023-11-15 17:09 | Cardiology Progress Note ---
Date of Service November 15, 2023 Assessment & Plan (1) Atrial fibrillation with rapid ventricular response: Plan: pt due to have a repeat PVI ablation with in [facility] at the end of this month on 11/24/23 stop IV amio drip continue PO amio 200mg TID Continue toprol 75mg BID Continue eliquis (2) NYHA class 3 heart failure with reduced ejection fraction: Plan: pt still feels volume overloaded continue iv lasix for today then switch to torsemide 60mg daily monitor daily weights and kidney function as well as electrolytes monitor I/os (3) Hypertension: Plan: stable BP (4) Dilated cardiomyopathy: (5) Cardiac left ventricular ejection fraction 10-20 percent: Plan Symptomatic atrial fibrillation with rapid ventricular response [id number] Score at least 4 points goal is to get pt HR controlled in preparation for her AF ablation she has scheduled in [facility] on 11/24/23; continue PO amio and stop the IV ami drip continue toprol 75mg BID but if we need to increase the toprol to 100mg BID we could do that if needed for discharge pt not to miss any eliquis in preparation for her PVI if we are unable to get HR controlled we might have to do a DCCV-but i prefer not do to this i think we can change to PO diuretics with torsemide 60mg daily starting tomorrow D/w hospitalist in person and she agreed with my plan Admission and Anticipated Discharge Date Admission Date: November 12, 2023 Subjective has a headache today and more fatigued ventricular rates slightly better she feels she is back to her baseline weight no SOB, palpitations, CP Review of Systems Review of Systems: All systems reviewed & are unremarkable except as noted in HPI & below Physical Exam Physical Exam: aaox3, NAD NC/AT, EOMI Supple No JVD irregular irregular S1/S2, No murmur CTA b/l no w/r/r soft nt/nd no LE edema b/l skin intact no focal deficits Results & Data Vital Signs (Past 12 Hours) Vital Signs Temp Pulse Pulse Resp BP Pulse Ox O2 Del Method 11/15/23 15:54 37.1 C 120 H 16 101/70 95 Room Air 11/15/23 15:51 107 H 11/15/23 14:35 135 H 11/15/23 11:23 36.9 C 110 H 17 120/66 92 Room Air 11/15/23 10:45 140 H 11/15/23 07:58 36.5 C 109 H 16 127/86 92 Room Air 11/15/23 07:39 118 H Laboratory Results Cardiac Enzymes 11/15/23 Range/Units 05:10 AST 23 (13-39) U/L CBC 11/15/23 Range/Units 05:10 WBC 7.75 (4.8-10.8) K/ul RBC 4.30 (4.20-5.40) M/uL Hgb 12.7 (12.0-16.0) g/dl Hct 39.2 (37.0-47.0) % Plt Count 235 (130-400) K/uL Comprehensive Metabolic Panel 11/15/23 Range/Units 05:10 Sodium 140 (136-145) mmol/L Potassium 3.8 (3.5-5.1) mmol/L Chloride 101 (98-107) mmol/L Carbon Dioxide 31 (21-32) mmol/L BUN 24 H (6-23) mg/dl Creatinine 0.87 (0.6-1.2) mg/dl Glucose 99 (70-99(Fasting)) mg/dl Calcium 9.6 (8.6-10.3) mg/dl AST 23 (13-39) U/L ALT 40 (7-52) U/L Alkaline Phosphatase 117 H (34-104) U/L Total Protein 6.9 (6.0-8.3) gm/dl Albumin 3.6 (3.4-5.0) gm/dl Intake and Output 11/15/23 11/15/23 11/15/23 06:59 14:59 22:59 Intake Total 545.947 / 1165.947 100 / 780 680 / 780 Output Total 1901 / 1901 Balance 545.947 / 765.947 100 / -1121 -1221 / -1121 Intake: IV 295.947 / 595.947 100 / 300 200 / 300 Amiodarone / D5w 360 mg In 200 195.947 / 395.947 200 / 200 ml @ 0.5 MG/MIN 16.667 mls/hr IV .Q12H [facility] Rx#:[id number] Ampicillin/Sulbactam Sod 3,000 100 / 200 100 / 100 mg In Sodium Chlor 0.9% Mini-B 100 ml @ 100 mls/hr IV Q6H [facility] Rx#:[id number] Oral 250 / 570 480 / 480 Output: Urine 1900 / 1900 # Bowel Movements Other: Weight 110.4 kg Weight Measurement Method Standing Scale Medications Administered Current Inpatient Medications Acetaminophen (Acetaminophen 500 Mg Tab) 1,000 mg PO TID PRN PRN Reason: Pain Stop: 12/12/23 19:52 Last Admin: 11/13/23 14:07 Dose: 1,000 mg Hydrocodone Bitart/Acetaminophen (Hydrocodone/Acetaminophen 7.5/325mg Tab) 1 tab PO Q8H PRN PRN Reason: Severe Pain (Scale Score 7-10) Stop: 11/26/23 19:43 Allopurinol (Allopurinol 300 Mg Tab) 300 mg PO DAILY [facility] Stop: 12/13/23 08:59 Last Admin: 11/15/23 08:05 Dose: 300 mg Alprazolam (Alprazolam 0.25 Mg Tablet) 0.25 mg PO Q8H PRN PRN Reason: anixety Stop: 12/14/23 17:21 Alprazolam (Alprazolam 0.5 Mg Tablet) 0.5 mg PO QPM [facility] Stop: 12/14/23 20:59 Last Admin: 11/14/23 20:23 Dose: 0.5 mg Amiodarone HCl (Amiodarone 200 Mg Tab) 200 mg PO TIDM [facility] Stop: 12/15/23 07:59 Last Admin: 11/15/23 16:14 Dose: 200 mg Amoxicillin/Clavulanate Potassium (Amoxicillin/Clavulanate 875 Mg Tab) 1 tab PO BIDM [facility]; Protocol Stop: 11/25/23 16:59 Last Admin: 11/15/23 16:15 Dose: 1 tab Apixaban (Apixaban 5 Mg Tablet) 5 mg PO BID [facility] Stop: 12/12/23 20:59 Last Admin: 11/15/23 08:03 Dose: 5 mg Ascorbic Acid (Ascorbic Acid 500 Mg Tab) 1,000 mg PO QPM [facility] Stop: 12/12/23 20:59 Last Admin: 11/14/23 20:25 Dose: 1,000 mg Baclofen (Baclofen 10 Mg Tab) 10 mg PO BID PRN PRN Reason: Muscle Spasm Stop: 12/12/23 19:43 Calcium/Vitamin D (Calcium 600mg + Vit D 400 Iu Tab) 1 tab PO QPM [facility] Stop: 12/12/23 20:59 Last Admin: 11/14/23 20:27 Dose: 1 tab Furosemide (Furosemide 40 Mg/4 Ml Vial) 40 mg IV BID17 FERNANDA Stop: 12/13/23 16:59 Last Admin: 11/15/23 16:05 Dose: 40 mg Loratadine (Loratadine 10 Mg Tab) 10 mg PO QAM FERNANDA Stop: 12/13/23 08:59 Last Admin: 11/15/23 08:05 Dose: 10 mg Melatonin (Melatonin 3 Mg Tab) 3 mg PO HS [facility] Stop: 12/15/23 20:59 Metoprolol Succinate (Metoprolol Succ 25mg Ext Rel Tab) 75 mg PO BID [facility] Stop: 12/15/23 08:59 Last Admin: 11/15/23 08:04 Dose: 75 mg Metoprolol Tartrate (Metoprolol Tartrate 1 Mg/Ml Vial) 5 mg IV Q6 PRN PRN Reason: Tachycardia Stop: 12/13/23 00:00 Last Admin: 11/14/23 11:55 Dose: 5 mg Montelukast Sodium (Montelukast Sodium 10 Mg Tablet) 10 mg PO DAILY [facility] Stop: 12/13/23 08:59 Last Admin: 11/15/23 08:05 Dose: 10 mg Multivitamins (Multivitamin Tab) 1 tab PO QPM FERNANDA Stop: 12/12/23 20:59 Last Admin: 11/14/23 20:27 Dose: 1 tab Ondansetron HCl (Ondansetron Inj 2 Mg/Ml 2 Ml Vial) 4 mg IV Q6H PRN PRN Reason: Nausea Stop: 12/12/23 19:43 Polyethylene Glycol (Polyethylene (Miralax) 17 Gm Pack) 17 gm PO DAILY PRN PRN Reason: Constipation Stop: 12/12/23 19:43 Potassium Chloride (Potassium Chloride 10 Meq Tabcr) 10 meq PO QPM FERNANDA Stop: 12/12/23 20:59 Last Admin: 11/14/23 20:27 Dose: 10 meq Zinc Sulfate (Zinc Sulfate 220 Mg Capsule) 220 mg PO QPM FERNANDA Stop: 12/12/23 20:59 Last Admin: 11/14/23 20:27 Dose: 220 mg (3) Hypertension Hypertension type: primary hypertension Qualified Code(s): I10 - Essential (primary) hypertension
[2023-11-15] MEDS ORDERED: COUGH DROP (SUGAR FREE) LOZ 24 LOZ/1 BOX BUCCAL ONE (18:34)
[2023-11-15] MEDS: POTASSIUM CHLORIDE 10 MEQ TABCR PO SCH (21:41)
[2023-11-15] MEDS: ALPRAZolam 0.5 MG TABLET PO SCH (21:41)
[2023-11-15] MEDS: MELATONIN 3 MG TAB PO SCH (21:41)
[2023-11-15] MEDS: ZINC SULFATE 220 MG CAPSULE PO SCH (21:42)
[2023-11-15] MEDS: ASCORBIC ACID 500 MG TAB PO SCH (21:42)
[2023-11-15] MEDS: CALCIUM 600MG + VIT D 400 IU TAB PO SCH (21:43)
[2023-11-15] MEDS: MULTIVITAMIN TAB PO SCH (21:43)
[2023-11-16 09:06] LABS: Hematocrit (blood only) 40.9 % (37.0-47.0); Hemoglobin 13.4 g/dl (12.0-16.0); Mean Corpuscular Hemoglobin 29.8 pg (25.0-34.0); Mean Corpuscular Hgb Conc 32.8 g/dL (32.0-36.0); Mean Corpuscular Volume 91.1 fL (80.0-100.0); Mean Platelet Volume 9.7 fL (9.4-12.4); Platelet Count 258 K/uL (130-400); RDW Coefficient of Variation 14.9 % (11.5-14.5); RDW Standard Deviation 48.8 fL (36.4-46.3); Red Blood Count 4.49 M/uL (4.20-5.40)
[2023-11-16] MEDS: METOPROLOL SUCC 25MG EXT REL TAB PO SCH ×2 (09:11→20:03)
[2023-11-16] MEDS: APIXABAN 5 MG TABLET PO SCH ×2 (09:11→20:04)
[2023-11-16] MEDS: AMIODARONE 200 MG TAB PO SCH ×3 (09:16→17:59)
[2023-11-16] MEDS: AMOXICILLIN/CLAVULANATE 875 MG TAB PO SCH ×2 (09:17→17:59)
[2023-11-16] MEDS: allopurinoL 300 MG TAB PO SCH (09:18)
[2023-11-16] MEDS: FUROSEMIDE 40 MG/4 ML VIAL IV SCH ×3 (09:19→18:00)
[2023-11-16] MEDS: MONTELUKAST SODIUM 10 MG TABLET PO SCH (09:21)
[2023-11-16] MEDS: LORATADINE 10 MG TAB PO SCH (09:21)
[2023-11-16 09:25] LABS: BUN Creatinine Ratio 28.3 (10-20); Calcium 9.9 mg/dl (8.6-10.3); Creatinine Clr Calc Pharmacy 73.7 ml/min; Est GFR (African American) 74.2 ml/min; Magnesium 1.8 mg/dl (1.7-2.4); Potassium 3.3 mmol/L (3.5-5.1)
[2023-11-16] MEDS ORDERED: POTASSIUM CHLORIDE CRTAB 20 MEQ TABCR PO STA (09:51)
--- NOTE | 2023-11-16 09:52 | Cardiology Progress Note ---
Date of Service November 16, 2023 Assessment & Plan (1) Atrial fibrillation with rapid ventricular response: Plan: pt due to have a repeat PVI ablation with in [facility] at the end of this month on 11/24/23 stop IV amio drip continue PO amio 200mg TID Continue toprol 75mg BID Continue eliquis (2) NYHA class 3 heart failure with reduced ejection fraction: Plan: pt still feels volume overloaded continue IV furosemide with plans to transition to torsemide 60mg daily monitor daily weights and kidney function as well as electrolytes monitor I/os (3) Hypertension: Plan: stable BP (4) Dilated cardiomyopathy: (5) Cardiac left ventricular ejection fraction 10-20 percent: Plan Symptomatic atrial fibrillation with rapid ventricular response [id number] Score at least 4 points Goal is to get pt HR controlled in preparation for her AF ablation she has sched uled in [place] on 11/24/23. Continue oral oral metoprolol succinate 75 mg two times per day. Continue Oral Amiodarone. Pt has been on Eliquis since 10/20/23, but I am not certain she has not had dose interruptions based on her description. LVEF 20% (09/2023) Will reach out to EP at [facility] to coordinate care. May need to reconsider CRYSTAL cardioversion this admission given severe LV systolic dysfunction and ongoing rapid rates. Admission and Anticipated Discharge Date Admission Date: November 12, 2023 Subjective Patient seen in cardiology follow up. Remains in atrial fibrillation. Resting ventricular rates in the 120-130s. No acute distress. No longer on IV amiodarone infusion, but is on oral. Physical Exam Constitutional: no acute distress Eyes: PERRL, conjunctivae normal, anicteric sclerae Respiratory: Auscultation: + diminished lung sounds (decreased BS bilaterally at the bases ); no crackles and no rales Cardiovascular: Rate/Rhythm: + tachycardic and + irregularly irregular Heart Sounds: no murmur Gastrointestinal (Abdomen): normal bowel sounds, soft, nontender, no hepatosplenomegaly Neurologic: PERRL, EOMI, accommodation nl, no face palsy, no dysarthria Results & Data Vital Signs (Past 12 Hours) Vital Signs Temp Pulse Resp BP Pulse Ox O2 Del Method 11/16/23 08:09 36.5 C 118 H 18 104/70 91 Room Air 11/16/23 05:40 36.3 C L 118 H 20 118/74 90 Room Air 11/16/23 02:00 115 H 16 11/15/23 22:56 36.9 C 118 H 20 106/69 91 Room Air Laboratory Results CBC 11/16/23 Range/Units 08:49 WBC 6.90 (4.8-10.8) K/ul RBC 4.49 (4.20-5.40) M/uL Hgb 13.4 (12.0-16.0) g/dl Hct 40.9 (37.0-47.0) % Plt Count 258 (130-400) K/uL Comprehensive Metabolic Panel 11/16/23 Range/Units 08:49 Sodium 141 (136-145) mmol/L Potassium 3.3 L (3.5-5.1) mmol/L Chloride 102 (98-107) mmol/L Carbon Dioxide 30 (21-32) mmol/L BUN 26 H (6-23) mg/dl Creatinine 0.92 (0.6-1.2) mg/dl Glucose 146 H (70-99(Fasting)) mg/dl Calcium 9.9 (8.6-10.3) mg/dl (3) Hypertension Hypertension type: primary hypertension Qualified Code(s): I10 - Essential (primary) hypertension
--- NOTE | 2023-11-16 16:33 | Hospitalist Progress Note ---
Date of Service November 16, 2023 Assessment & Plan (1) Atrial fibrillation with rapid ventricular response: (2) HFrEF (heart failure with reduced ejection fraction): (3) Hypertension: (4) Chronic mastoiditis: (5) Fibromyalgia: (6) WILL on CPAP: Plan Ms. Stringer is a 67-year-old female with PMH of paroxysmal atrial fibrillation on Eliquis, HFrEF (EF20%10/21/23), history of dilated cardiomyopathy, hypertension, chronic sinusitis and mastoiditis, iron deficiency anemia, history of diffuse large B-cell lymphoma, WILL on CPAP and other medical problems listed below who presents with palpitations, chest tightness and fatigue over the past few days and was found to have A fib with RVR and admitted for management on 11/12. Recently admitted at [facility] for a fib with RVR, acute decompensated HFrEF and sepsis 2/ PNA and was eventually transferred to [facility] after course was complicated colonic distension consistent with acute colonic pseudo-obstruction. Per review of outpatient records, patient refused colonoscopic decompression and has had minimal response to neostigmine (was c diff negative).The patient began to show improvement on 11/03 and was being monitored closely after being resumed on diet andoralmedications. For her A fib specifically, she was being transitioned from IV medications to oral digoxin 125 mcg daily and metoprolol 25 mg XL daily but refused to stay for monitoring with this regimen and left AMA on 11/03. Patient's current admission complicated by continued RVR. Patient has ablation scheduled and goal is to get patient to OP ablation, however, rates remain in uncontrolled. Amiodarone drip discontinued. Plan for PO torsemide. Continued IV diuresis, with likely transition to PO torsemide in am per Cardiology' Ongoing discussions on how to optimize patient for coming ablation. Tentatively considering DCCV in hopes to help calm rates and transition patient to ablation and help optimize patient. Patient at this time reluctant. Will readdress in am. #Atrial fibrillation with RVR Presented with HR 130s-150s, received 5mg IV Lopressor x 2 in ED with HR in 120s-130s during exam EKG reviewed, showing Afib with RVR; [id number] 4 Infectious workup negative thus far Cardiology on consult, recommendations discussed with PA Discussed case and medication recommendations with Dr. Senior, who recommends trial of PO Lopressor 25mg PO TID and if HR remains elevated, adding 250mcg IV Digoxin and then repeating again 6 hours later if RVR persists Monitor on telemetry, replace lytes prn Continue anticoagulation with Eliquis Discontinue Amiodarone drip PO amiodarone 200mg TID continue Continue 75mg Metoprolol XL BID Continue IV lasix 40mg BID, plan to transition torsemide 60mg Pending further recommendations Discontinued montelukast #Acute decompensated HFrEF with echo from 10/21/23 showing reduced EFof 20% #Dilated cardiomyopathy, tachy-mediated Monitor fluid status, manage RVR as above Concerns for tachymediated decompensation, po bumex held and IV lasix BID started per Dr Santiago 11/13 afternoon Replace lytes prn Transition to PO torsemide 60mg per cardiology, in interim iv Lasix BID #HTN BP normotensive. Discontinue atenolol due to starting Lopressor as above #Acute on Chronic mastoiditis Ongoing ENT infections, recently completed abx treatment at [facility] for PNA with Rocephin/Azithro. Contiune loratidine Patient with concerns of recurrent infection, continue augmentin #Fibromyalgia Continue home baclofen, PRN Tylenol and PRN [place] for severe pain #WILL Bipap HS #Anxiety Xanax 0.5 mg qhs, and 0.25 prn throughout day/evening DVT Ppx: Eliquis Code status: FULL PCP: Jenny Dispo: Admitted to PCU Admission and Anticipated Discharge Date Admission Date: November 12, 2023 Subjective NAEO Patient feels upset and worried over continued rates Endorses persistent anxiety, worried over thoughts of cardioversion Physical Exam Constitutional: WD/WN, vitals as above Respiratory: normal respiratory effort, lungs clear to auscultation Cardiovascular: irregularly irregular, tachycardic Gastrointestinal (Abdomen): normal bowel sounds, soft, nontender, no hepatosplenomegaly Results & Data Results & Data Vital Signs (Past 12 Hours) Vital Signs Temp Pulse Pulse Resp BP Pulse Ox O2 Del Method 11/16/23 16:19 36.8 C 116 H 18 118/71 94 Room Air 11/16/23 14:19 103 H 11/16/23 12:22 36.6 C 109 H 17 108/76 92 Room Air 11/16/23 08:20 Room Air 11/16/23 08:09 36.5 C 118 H 18 104/70 91 Room Air 11/16/23 05:40 36.3 C L 118 H 20 118/74 90 Room Air Laboratory Results Short CBC 11/16/23 Range/Units 08:49 WBC 6.90 (4.8-10.8) K/ul Hgb 13.4 (12.0-16.0) g/dl Hct 40.9 (37.0-47.0) % Plt Count 258 (130-400) K/uL BMP 11/16/23 08:49 Sodium 141 Potassium 3.3 L Chloride 102 Carbon Dioxide 30 BUN 26 H Creatinine 0.92 Glucose 146 H Calcium 9.9 Medications Administered Home Medications Medication Instructions Recorded Confirmed Last Taken ascorbic acid (vitamin C) 1,000 mg 1,000 mg PO QPM 07/24/22 11/12/23 11/11/23 tablet,extended release (Vitamin C ER) atenolol 25 mg tablet 12.5 mg PO DAILY gout 07/24/22 11/12/23 11/12/23 baclofen 10 mg tablet 10 mg PO BID PRN Muscle Spasm 07/24/22 11/12/23 2 Months Ago ~01/24/23 bumetanide 1 mg tablet 1 mg PO QPM 07/24/22 11/12/23 11/12/23 1 MG calcium carbonate 600 mg-vitamin 1 tab PO QPM 07/24/22 11/12/23 11/11/23 D3 10 mcg (400 unit) tablet (Calcium 600 + D(3)) multivitamin 1 tab PO QPM 07/24/22 11/12/23 11/11/23 potassium chloride 10 mEq 10 meq PO QPM 07/24/22 11/12/23 11/11/23 tablet,extended 10 MEQ release(part/cryst) (Klor-Con M) acetaminophen 500 mg capsule 1,000 mg PO TID PRN Pain 03/26/23 11/12/23 03/25/23 allopurinol 300 mg tablet 300 mg PO DAILY 11/12/23 11/12/23 Unknown apixaban 5 mg tablet (Eliquis) 5 mg PO BID 11/12/23 11/12/23 11/12/23 08:00 hydrochlorothiazide 12.5 mg capsule 12.5 mg PO DAILY 11/12/23 11/12/23 Unknown hydrocodone 7.5 mg-acetaminophen 1 tab PO Q8H PRN Severe Pain 11/12/23 11/12/23 Unknown 325 mg tablet (Scale Score 7-10) montelukast 10 mg tablet 10 mg PO DAILY 11/12/23 11/12/23 Unknown zinc gluconate 50 mg tablet 50 mg PO QPM 11/12/23 11/12/23 11/11/23 Active Medications Generic Name Dose Route Start Last Admin Trade Name Freq PRN Reason Stop Dose Admin Acetaminophen 1,000 mg 11/12/23 19:53 11/13/23 14:07 Acetaminophen 500 Mg Tab PO 12/12/23 19:52 1,000 mg TID PRN Administration Pain Allopurinol 300 mg 11/13/23 09:00 11/16/23 09:18 Allopurinol 300 Mg Tab PO 12/13/23 08:59 300 mg DAILY FERNANDA Administration Alprazolam 0.5 mg 11/14/23 21:00 11/15/23 21:41 Alprazolam 0.5 Mg Tablet PO 12/14/23 20:59 0.5 mg QPM FERNANDA Administration Amiodarone HCl 200 mg 11/15/23 08:00 11/16/23 13:13 Amiodarone 200 Mg Tab PO 12/15/23 07:59 200 mg TIDM FERNANDA Administration Amoxicillin/Clavulanate Potassium 1 tab 11/15/23 17:00 11/16/23 09:17 Amoxicillin/Clavulanate 875 Mg Tab PO 11/25/23 16:59 1 tab BIDM FERNANDA Administration Protocol Apixaban 5 mg 11/12/23 21:00 11/16/23 09:11 Apixaban 5 Mg Tablet PO 12/12/23 20:59 5 mg BID FERNANDA Administration Ascorbic Acid 1,000 mg 11/12/23 21:00 11/15/23 21:42 Ascorbic Acid 500 Mg Tab PO 12/12/23 20:59 1,000 mg QPM FERNANDA Administration Calcium/Vitamin D 1 tab 11/12/23 21:00 11/15/23 21:43 Calcium 600mg + Vit D 400 Iu Tab PO 12/12/23 20:59 1 tab QPM FERNANDA Administration Furosemide 40 mg 11/13/23 17:00 11/16/23 09:26 Furosemide 40 Mg/4 Ml Vial IV 12/13/23 16:59 Not Given BID17 FERNANDA Loratadine 10 mg 11/13/23 09:00 11/16/23 09:21 Loratadine 10 Mg Tab PO 12/13/23 08:59 10 mg QAM FERNANDA Administration Melatonin 3 mg 11/15/23 21:00 11/15/23 21:41 Melatonin 3 Mg Tab PO 12/15/23 20:59 3 mg HS FERNANDA Administration Metoprolol Succinate 75 mg 11/15/23 09:00 11/16/23 09:11 Metoprolol Succ 25mg Ext Rel Tab PO 12/15/23 08:59 75 mg BID FERNANDA Administration Metoprolol Tartrate 5 mg 11/12/23 23:05 11/14/23 11:55 Metoprolol Tartrate 1 Mg/Ml Vial IV 12/13/23 00:00 5 mg Q6 PRN Administration Tachycardia Montelukast Sodium 10 mg 11/13/23 09:00 11/16/23 09:21 Montelukast Sodium 10 Mg Tablet PO 12/13/23 08:59 10 mg DAILY FERNANDA Administration Multivitamins 1 tab 11/12/23 21:00 11/15/23 21:43 Multivitamin Tab PO 12/12/23 20:59 1 tab QPM FERNANDA Administration Potassium Chloride 10 meq 11/12/23 21:00 11/15/23 21:41 Potassium Chloride 10 Meq Tabcr PO 12/12/23 20:59 10 meq QPM FERNANDA Administration Zinc Sulfate 220 mg 11/12/23 21:00 11/15/23 21:42 Zinc Sulfate 220 Mg Capsule PO 12/12/23 20:59 220 mg QPM FERNANDA Administration
--- NOTE | 2023-11-16 17:12 | Communication Note ---
Date of Service: November 16, [address] Saldivar of EP at [facility] who agreed with plan for CRYSTAL guided cardioversion. Pt agreeable.
--- NOTE | 2023-11-16 19:02 | Anesthesiology Consultation ---
Date of Service November 16, 2023 Assessment & Plan Chart Review Chart Review: Acceptable Risk for Surgery and Patient NOT seen in Pre Admission Testing Consults Requested none History Surgery Operation Date: 11/17/23 07:15 Proposed Procedures p CRYSTAL Guided Cardioversion - Clifton Valerio DO Height/Weight Height: 5 ft 6 in Weight: 110.6 kg Allergies Allergy/AdvReac Type Severity Reaction Status Date / Time lisinopril Allergy Severe Throat Verified 11/12/23 16:06 tightness Iodinated Contrast Media Allergy Intermediate Rash Verified 11/12/23 16:06 citalopram Allergy Mild Rash Verified 11/12/23 16:06 Beta-Blockers AdvReac Intermediate Increase Verified 11/12/23 16:06 (Beta-Adrenergic Bloc of symptoms/conditions digoxin AdvReac Unknown "Did not Verified 11/12/23 16:06 work" Medications Home Medications Medication Instructions Recorded Confirmed Last Taken ascorbic acid (vitamin C) 1,000 mg 1,000 mg PO QPM 07/24/22 11/12/23 11/11/23 tablet,extended release (Vitamin C ER) atenolol 25 mg tablet 12.5 mg PO DAILY gout 07/24/22 11/12/23 11/12/23 baclofen 10 mg tablet 10 mg PO BID PRN Muscle Spasm 07/24/22 11/12/23 2 Months Ago ~01/24/23 bumetanide 1 mg tablet 1 mg PO QPM 07/24/22 11/12/23 11/12/23 1 MG calcium carbonate 600 mg-vitamin 1 tab PO QPM 07/24/22 11/12/23 11/11/23 D3 10 mcg (400 unit) tablet (Calcium 600 + D(3)) multivitamin 1 tab PO QPM 07/24/22 11/12/23 11/11/23 potassium chloride 10 mEq 10 meq PO QPM 07/24/22 11/12/23 11/11/23 tablet,extended 10 MEQ release(part/cryst) (Klor-Con M) acetaminophen 500 mg capsule 1,000 mg PO TID PRN Pain 03/26/23 11/12/23 03/25/23 allopurinol 300 mg tablet 300 mg PO DAILY 11/12/23 11/12/23 Unknown apixaban 5 mg tablet (Eliquis) 5 mg PO BID 11/12/23 11/12/23 11/12/23 08:00 hydrochlorothiazide 12.5 mg capsule 12.5 mg PO DAILY 11/12/23 11/12/23 Unknown hydrocodone 7.5 mg-acetaminophen 1 tab PO Q8H PRN Severe Pain 11/12/23 11/12/23 Unknown 325 mg tablet (Scale Score 7-10) montelukast 10 mg tablet 10 mg PO DAILY 11/12/23 11/12/23 Unknown zinc gluconate 50 mg tablet 50 mg PO QPM 11/12/23 11/12/23 11/11/23 Active Medications Generic Name Dose Route Start Last Admin Trade Name Freq PRN Reason Stop Dose Admin Acetaminophen 1,000 mg 11/12/23 19:53 11/13/23 14:07 Acetaminophen 500 Mg Tab PO 12/12/23 19:52 1,000 mg TID PRN Administration Pain Allopurinol 300 mg 11/13/23 09:00 11/16/23 09:18 Allopurinol 300 Mg Tab PO 12/13/23 08:59 300 mg DAILY FERNANDA Administration Alprazolam 0.5 mg 11/14/23 21:00 11/15/23 21:41 Alprazolam 0.5 Mg Tablet PO 12/14/23 20:59 0.5 mg QPM FERNANDA Administration Amiodarone HCl 200 mg 11/15/23 08:00 11/16/23 17:59 Amiodarone 200 Mg Tab PO 12/15/23 07:59 200 mg TIDM FERNANDA Administration Amoxicillin/Clavulanate Potassium 1 tab 11/15/23 17:00 11/16/23 17:59 Amoxicillin/Clavulanate 875 Mg Tab PO 11/25/23 16:59 1 tab BIDM FERNANDA Administration Protocol Apixaban 5 mg 11/12/23 21:00 11/16/23 09:11 Apixaban 5 Mg Tablet PO 12/12/23 20:59 5 mg BID FERNANDA Administration Ascorbic Acid 1,000 mg 11/12/23 21:00 11/15/23 21:42 Ascorbic Acid 500 Mg Tab PO 12/12/23 20:59 1,000 mg QPM FERNANDA Administration Calcium/Vitamin D 1 tab 11/12/23 21:00 11/15/23 21:43 Calcium 600mg + Vit D 400 Iu Tab PO 12/12/23 20:59 1 tab QPM FERNANDA Administration Furosemide 40 mg 11/13/23 17:00 11/16/23 18:00 Furosemide 40 Mg/4 Ml Vial IV 12/13/23 16:59 Not Given BID17 FERNANDA Loratadine 10 mg 11/13/23 09:00 11/16/23 09:21 Loratadine 10 Mg Tab PO 12/13/23 08:59 10 mg QAM FERNANDA Administration Melatonin 3 mg 11/15/23 21:00 11/15/23 21:41 Melatonin 3 Mg Tab PO 12/15/23 20:59 3 mg HS FERNANDA Administration Metoprolol Succinate 75 mg 11/15/23 09:00 11/16/23 09:11 Metoprolol Succ 25mg Ext Rel Tab PO 12/15/23 08:59 75 mg BID FERNANDA Administration Metoprolol Tartrate 5 mg 11/12/23 23:05 11/14/23 11:55 Metoprolol Tartrate 1 Mg/Ml Vial IV 12/13/23 00:00 5 mg Q6 PRN Administration Tachycardia Montelukast Sodium 10 mg 11/13/23 09:00 11/16/23 09:21 Montelukast Sodium 10 Mg Tablet PO 12/13/23 08:59 10 mg DAILY FERNANDA Administration Multivitamins 1 tab 11/12/23 21:00 11/15/23 21:43 Multivitamin Tab PO 12/12/23 20:59 1 tab QPM FERNANDA Administration Potassium Chloride 10 meq 11/12/23 21:00 11/15/23 21:41 Potassium Chloride 10 Meq Tabcr PO 12/12/23 20:59 10 meq QPM FERNANDA Administration Zinc Sulfate 220 mg 11/12/23 21:00 11/15/23 21:42 Zinc Sulfate 220 Mg Capsule PO 12/12/23 20:59 220 mg QPM FERNANDA Administration Past Medical History Medical History Fibromyalgia HFrEF (heart failure with reduced ejection fraction) WILL on CPAP Left knee DJD Obesity Encounter for pre-operative examination History of COVID-19 Dx 09/2021, symptoms resolved except residual taste/smell impairment Hypertension Osteoarthritis Depression Hyperlipidemia Cancer Lymphoma (2016) s/p treatment in [place], PCP monitors Sleep apnea BIPAP (compliant) Atrial fibrillation Follows with [facility]/Dr. Medina Septic arthritis of knee, bilateral Past Family History Family History Other Hypertension Past Surgical History Surgical History History of tonsillectomy and adenoidectomy History of ear surgery LEFT X 2-RIGHT X 1-MASTOIDECTOMY/TYMPANOPLASTY History of sinus surgery History of section History of thyroidectomy History of esophagogastroduodenoscopy (EGD) History of colon resection 2016 FOR BLEEDING TUMOR History of colonoscopy History of cardioversion ~2015 Social History Smoking Status: Never smoker Do You Dip or Chew Tobacco: No Hx Alcohol Use: No alcohol intake frequency: holidays/special occasions only Hx Substance Use: No substance use type: does not use Physical Exam Vital Signs Last Vital Signs Temp 36.8 C 11/16/23 16:19 Pulse 112 H 11/16/23 17:40 Resp 18 11/16/23 16:19 BP 118/71 11/16/23 16:19 Pulse Ox 94 11/16/23 16:19 O2 Del Method Room Air 11/16/23 16:19 O2 Flow Rate 2 11/14/23 04:27 Testing Laboratory Results 11/16/23 08:49 11/16/23 08:49 Urine Color Yellow 11/14/23 10:35 Urine Appearance Clear (Clear) 11/14/23 10:35 Urine pH 6.5 (4.5-7.5) 11/14/23 10:35 Ur Specific [place] 1.009 (1.000-1.030) 11/14/23 10:35 Urine Protein Negative (Negative) 11/14/23 10:35 Urine Glucose (UA) Negative (Negative) 11/14/23 10:35 Urine Ketones Negative (Negative) 11/14/23 10:35 Urine Nitrite Negative (Negative) 11/14/23 10:35 Ur Leukocyte Esterase 1+ (Negative) H 11/14/23 10:35 Urine WBC (Auto) 10-30 /hpf (0-5) H 11/14/23 10:35 Urine RBC (Auto) 0-4 /hpf (0-4) 11/14/23 10:35 U Hyaline Cast (Auto) 0 /lpf (0-5) 11/14/23 10:35 U Epithel Cells (Auto) >30 /lpf (0-5) H 11/14/23 10:35 Urine Bacteria (Auto) 1+ (Negative) H 11/14/23 10:35 11/14/23 10:42 Aerobic Blood Culture - Preliminary Blood No growth in Aerobic bottle after 48 hours. Anaerobic Blood Culture - Preliminary No growth in Anaerobic bottle after 48 hours. 11/14/23 09:41 Aerobic Blood Culture - Preliminary Blood No growth in Aerobic bottle after 48 hours. Anaerobic Blood Culture - Preliminary No growth in Anaerobic bottle after 48 hours. 11/14/23 10:35 Urine Culture - Final Urine,Clean Catch More than three types of organisms present, all high counts. Repeat collection recommended. No further identifications or sensitivities to follow. Electrocardiogram Date: 11/13/23 Findings: + AFIB @ Chest X-Ray Date: 11/13/23 Findings: + cardiomegaly and + pulmonary vascular congestion
[2023-11-16] MEDS: ASCORBIC ACID 500 MG TAB PO SCH (20:03)
[2023-11-16] MEDS: CALCIUM 600MG + VIT D 400 IU TAB PO SCH (20:03)
[2023-11-16] MEDS: SIMETHICONE 80 MG CHEW PO PRN (20:03)
[2023-11-16] MEDS: MELATONIN 3 MG TAB PO SCH (20:04)
[2023-11-16] MEDS: POTASSIUM CHLORIDE 10 MEQ TABCR PO SCH (20:04)
[2023-11-16] MEDS: ZINC SULFATE 220 MG CAPSULE PO SCH (20:05)
[2023-11-16] MEDS: MULTIVITAMIN TAB PO SCH (20:05)
[2023-11-16] MEDS: ALPRAZolam 0.5 MG TABLET PO SCH (20:08)
[2023-11-17 04:58] LABS: Hematocrit (blood only) 38.9 % (37.0-47.0); Hemoglobin 12.8 g/dl (12.0-16.0); Mean Corpuscular Hgb Conc 32.9 g/dL (32.0-36.0); Mean Corpuscular Volume 91.1 fL (80.0-100.0); Mean Platelet Volume 9.9 fL (9.4-12.4); Platelet Count 219 K/uL (130-400); RDW Coefficient of Variation 15.1 % (11.5-14.5); Red Blood Count 4.27 M/uL (4.20-5.40); White Blood Count 6.79 K/ul (4.8-10.8)
[2023-11-17 05:10] LABS: Calcium 9.9 mg/dl (8.6-10.3); Creatinine Clr Calc Pharmacy 77.1 ml/min; Est GFR (African American) 78.2 ml/min; Est GFR (Non-African American) 67.5 ml/min; Phosphorus 3.7 mg/dl (2.5-4.9); Potassium 3.5 mmol/L (3.5-5.1)
[2023-11-17] MEDS ORDERED: POTASSIUM CHLORIDE CRTAB 20 MEQ TABCR PO STA (06:56)
--- NOTE | 2023-11-17 06:58 | Hospitalist Progress Note ---
Date of Service November 17, 2023 Assessment & Plan (1) Atrial fibrillation with rapid ventricular response: (2) HFrEF (heart failure with reduced ejection fraction): (3) Hypertension: (4) Chronic mastoiditis: (5) Fibromyalgia: (6) WILL on CPAP: Plan Ms. Stringer is a 67-year-old female with PMH of paroxysmal atrial fibrillation on Eliquis, HFrEF (EF20%10/21/23), history of dilated cardiomyopathy, hypertension, chronic sinusitis and mastoiditis, iron deficiency anemia, history of diffuse large B-cell lymphoma, WILL on CPAP and other medical problems listed below who presents with palpitations, chest tightness and fatigue over the past few days and was found to have A fib with RVR and admitted for management on 11/12. Recently admitted at [facility] for a fib with RVR, acute decompensated HFrEF and sepsis 2/2 PNA and was eventually transferred to [facility] after course was complicated colonic distension consistent with acute colonic pseudo-obstruction. Per review of outpatient records, patient refused colonoscopic decompression and has had minimal response to neostigmine (was c diff negative).The patient began to show improvement on 11/03 and was being monitored closely after being resumed on diet andoralmedications. For her A fib specifically, she was being transitioned from IV medications to oral digoxin 125 mcg daily and metoprolol 25 mg XL daily but refused to stay for monitoring with this regimen and left AMA on 11/03. Patient's current admission complicated by continued RVR. Patient has ablation scheduled and goal is to get patient to OP ablation, however, rates remain in uncontrolled. Amiodarone drip discontinued. Plan for PO torsemide. Continued IV diuresis, with likely transition to PO torsemide in am per Cardiology' Ongoing discussions on how to optimize patient for coming ablation. Patient initially apprehensive regarding cardioversion, but agreed with input from EP physican Dr Medina and efforts from Dr Valerio. DCCV successful on 11/17. Remains in NSR. Plan to monitor and adjust medications as appropriate for possible discharge tomorrow. #Atrial fibrillation with RVR s/p DCCV on 11/17/2023, now NSR Presented with HR 130s-150s, received 5mg IV Lopressor x 2 in ED with HR in 1 20s-130s during exam EKG reviewed, showing Afib with RVR; [id number] Infectious workup negative thus far Cardiology on consult, recommendations discussed with PA Discussed case and medication recommendations with Dr. Senior, who recommends trial of PO Lopressor 25mg PO TID and if HR remains elevated, adding 250mcg IV Digoxin and then repeating again 6 hours later if RVR persists Monitor on telemetry, replace lytes prn Continue anticoagulation with Eliquis Discontinued Amiodarone drip 11/16 PO amiodarone 200mg TID continue Spironolactone 12.5mg started for GDMT Continue 75mg Metoprolol XL BID Holding furosemide as of now, likely dose later this afternoon per cards Pending further recommendations Discontinued montelukast #Acute decompensated HFrEF with echo from 10/21/23 showing reduced EFof 20% #Dilated cardiomyopathy, tachy-mediated Monitor fluid status, manage RVR as above Concerns for tachymediated decompensation, po bumex held and IV lasix BID started per Dr Santiago 11/13 afternoon Replace lytes prn Transition to PO torsemide 60mg per cardiology, in interim holding diuresis per #HTN BP normotensive. Discontinue atenolol Metorpolol and spironolactone as above #Acute on Chronic mastoiditis Ongoing ENT infections, recently completed abx treatment at [facility] for PNA with Ro cephin/Azithro. Continue loratidine Patient with concerns of recurrent infection, continue augmentin #Fibromyalgia Continue home baclofen, PRN Tylenol and PRN Sunset for severe pain #WILL Bipap HS #Anxiety Xanax 0.5 mg qhs, and 0.25 prn throughout day/evening DVT Ppx: Eliquis Code status: FULL PCP: Jenny Dispo: Admitted to PCU, potential DC in 1-2 days Admission and Anticipated Discharge Date Admission Date: November 12, 2023 Subjective evaluated s/p cardioversion. Remains in NSR Reports sore throat, but otherwise ok. Denies any chest pain or acute concerns. Requesting lozenges Eager for discharge and next steps Physical Exam Constitutional: WD/WN, vitals as above Respiratory: normal respiratory effort, lungs clear to auscultation Cardiovascular: RRR, no murmur, no edema Gastrointestinal (Abdomen): normal bowel sounds, soft, nontender, no hepatosplenomegaly Results & Data Results & Data Vital Signs (Past 12 Hours) Vital Signs Temp Pulse Pulse Resp BP BP Pulse Ox 11/17/23 06:00 114 H 12 11/17/23 05:00 98 H 4 L 11/17/23 04:00 120 H 8 L 11/17/23 03:44 36.4 C L 104 H 20 139/104 H 98 11/17/23 03:42 102 H 32 H 11/17/23 03:42 139/104 H 11/17/23 03:00 96 H 27 H 11/17/23 02:00 99 H 27 H 11/17/23 01:00 111 H 28 H 11/17/23 00:01 105 H 31 H 11/17/23 00:01 157/125 H 11/17/23 00:00 105 H 33 H 11/16/23 23:01 101/79 11/16/23 23:01 98 H 29 H 11/16/23 23:00 116 H 28 H 11/16/23 22:35 36.7 C 109 H 15 111/95 95 11/16/23 22:32 111/95 11/16/23 22:32 116 H 30 H 11/16/23 22:00 110 H 30 H 11/16/23 21:00 113 H 34 H 11/16/23 20:00 117 H 31 H 91 11/16/23 19:44 11/16/23 19:30 37.0 C 11/16/23 19:18 11/16/23 19:04 112/91 11/16/23 19:04 132 H 35 H 95 11/16/23 19:02 126 H 25 H O2 Del Method O2 Del Method 11/17/23 06:00 11/17/23 05:00 11/17/23 04:00 11/17/23 03:44 CPAP 11/17/23 03:42 11/17/23 03:42 11/17/23 03:00 11/17/23 02:00 11/17/23 01:00 11/17/23 00:01 11/17/23 00:01 11/17/23 00:00 11/16/23 23:01 11/16/23 23:01 11/16/23 23:00 11/16/23 22:35 Room Air, CPAP 11/16/23 22:32 11/16/23 22:32 11/16/23 22:00 11/16/23 21:00 11/16/23 20:00 11/16/23 19:44 Room Air 11/16/23 19:30 11/16/23 19:18 Room Air 11/16/23 19:04 11/16/23 19:04 11/16/23 19:02 Laboratory Results Short CBC 11/17/23 Range/Units 04:16 WBC 6.79 (4.8-10.8) K/ul Hgb 12.8 (12.0-16.0) g/dl Hct 38.9 (37.0-47.0) % Plt Count 219 (130-400) K/uL BMP 11/17/23 04:16 Sodium 136 Potassium 3.5 Chloride 102 Carbon Dioxide 26 BUN 22 Creatinine 0.88 Glucose 120 H Calcium 9.9 Medications Administered Acetaminophen (Acetaminophen 500 Mg Tab) 1,000 mg PO TID PRN PRN Reason: Pain Stop: 12/12/23 19:52 Last Admin: 11/13/23 14:07 Dose: 1,000 mg Documented By: Allopurinol (Allopurinol 300 Mg Tab) 300 mg PO DAILY FERNANDA Stop: 12/13/23 08:59 Last Admin: 11/17/23 09:08 Dose: 300 mg Documented By: Admin: 11/16/23 09:18 Dose: 300 mg Documented By: Admin: 11/15/23 08:05 Dose: 300 mg Documented By: Admin: 11/14/23 09:35 Dose: 300 mg Documented By: Admin: 11/13/23 09:48 Dose: 300 mg Documented By: ELEUTERIO Alprazolam (Alprazolam 0.5 Mg Tablet) 0.5 mg PO QPM FERNANDA Stop: 12/14/23 20:59 Last Admin: 11/16/23 20:08 Dose: 0.5 mg Documented By: Admin: 11/15/23 21:41 Dose: 0.5 mg Documented By: Admin: 11/14/23 20:23 Dose: 0.5 mg Documented By: IOANA Amiodarone HCl (Amiodarone 200 Mg Tab) 200 mg PO TIDM FERNANDA Stop: 12/15/23 07:59 Last Admin: 11/17/23 09:06 Dose: 200 mg Documented By: Admin: 11/16/23 17:59 Dose: 200 mg Documented By: Admin: 11/16/23 13:13 Dose: 200 mg Documented By: Admin: 11/16/23 09:16 Dose: 200 mg Documented By: Admin: 11/15/23 16:14 Dose: 200 mg Documented By: Admin: 11/15/23 12:01 Dose: 200 mg Documented By: Admin: 11/15/23 08:04 Dose: 200 mg Documented By: Amoxicillin/Clavulanate Potassium (Amoxicillin/Clavulanate 875 Mg Tab) 1 tab PO BIDM [facility]; Protocol Stop: 11/25/23 16:59 Last Admin: 11/17/23 09:07 Dose: 1 tab Documented By: Admin: 11/16/23 17:59 Dose: 1 tab Documented By: Admin: 11/16/23 09:17 Dose: 1 tab Documented By: Admin: 11/15/23 16:15 Dose: 1 tab Documented By: Apixaban (Apixaban 5 Mg Tablet) 5 mg PO BID [facility] Stop: 12/12/23 20:59 Last Admin: 11/17/23 09:06 Dose: 5 mg Documented By: Admin: 11/16/23 20:04 Dose: 5 mg Documented By: Admin: 11/16/23 09:11 Dose: 5 mg Documented By: Admin: 11/15/23 21:42 Dose: 5 mg Documented By: Admin: 11/15/23 08:03 Dose: 5 mg Documented By: Admin: 11/14/23 20:26 Dose: 5 mg Documented By: Admin: 11/14/23 09:34 Dose: 5 mg Documented By: Admin: 11/13/23 20:28 Dose: 5 mg Documented By: Admin: 11/13/23 09:48 Dose: 5 mg Documented By: Admin: 11/12/23 20:22 Dose: 5 mg Documented By: IOANA Ascorbic Acid (Ascorbic Acid 500 Mg Tab) 1,000 mg PO QPM [facility] Stop: 12/12/23 20:59 Last Admin: 11/16/23 20:03 Dose: 1,000 mg Documented By: Admin: 11/15/23 21:42 Dose: 1,000 mg Documented By: Admin: 11/14/23 20:25 Dose: 1,000 mg Documented By: Admin: 11/13/23 20:28 Dose: 1,000 mg Documented By: Admin: 11/12/23 20:22 Dose: 1,000 mg Documented By: IOANA Calcium/Vitamin D (Calcium 600mg + Vit D 400 Iu Tab) 1 tab PO QPM FERNANDA Stop: 12/12/23 20:59 Last Admin: 11/16/23 20:03 Dose: 1 tab Documented By: Admin: 11/15/23 21:43 Dose: 1 tab Documented By: Admin: 11/14/23 20:27 Dose: 1 tab Documented By: Admin: 11/13/23 20:28 Dose: 1 tab Documented By: Admin: 11/12/23 20:22 Dose: 1 tab Documented By: IOANA Loratadine (Loratadine 10 Mg Tab) 10 mg PO QAM FERNANDA Stop: 12/13/23 08:59 Last Admin: 11/17/23 09:08 Dose: 10 mg Documented By: Admin: 11/16/23 09:21 Dose: 10 mg Documented By: Admin: 11/15/23 08:05 Dose: 10 mg Documented By: Admin: 11/14/23 09:35 Dose: 10 mg Documented By: Admin: 11/13/23 09:49 Dose: 10 mg Documented By: ELEUTERIO Melatonin (Melatonin 3 Mg Tab) 3 mg PO HS FERNANDA Stop: 12/15/23 20:59 Last Admin: 11/16/23 20:04 Dose: 3 mg Documented By: Admin: 11/15/23 21:41 Dose: 3 mg Documented By: SARAH Metoprolol Succinate (Metoprolol Succ 25mg Ext Rel Tab) 75 mg PO BID FERNANDA Stop: 12/15/23 08:59 Last Admin: 11/17/23 09:07 Dose: 75 mg Documented By: Admin: 11/16/23 20:03 Dose: 75 mg Documented By: Admin: 11/16/23 09:11 Dose: 75 mg Documented By: Admin: 11/15/23 21:41 Dose: 75 mg Documented By: Admin: 11/15/23 08:04 Dose: 75 mg Documented By: Multivitamins (Multivitamin Tab) 1 tab PO QPM FERNANDA Stop: 12/12/23 20:59 Last Admin: 11/16/23 20:05 Dose: 1 tab Documented By: Admin: 11/15/23 21:43 Dose: 1 tab Documented By: Admin: 11/14/23 20:27 Dose: 1 tab Documented By: Admin: 11/13/23 20:29 Dose: 1 tab Documented By: Admin: 11/12/23 20:21 Dose: 1 tab Documented By: IOANA Potassium Chloride (Potassium Chloride 10 Meq Tabcr) 10 meq PO QPM FERNANDA Stop: 12/12/23 20:59 Last Admin: 11/16/23 20:04 Dose: 10 meq Documented By: Admin: 11/15/23 21:41 Dose: 10 meq Documented By: Admin: 11/14/23 20:27 Dose: 10 meq Documented By: Admin: 11/13/23 20:30 Dose: 10 meq Documented By: Admin: 11/12/23 20:21 Dose: 10 meq Documented By: IOANA Simethicone (Simethicone 80 Mg Chew) 80 mg PO Q6H PRN PRN Reason: Gas or Constipation Stop: 12/16/23 19:41 Last Admin: 11/16/23 20:03 Dose: 80 mg Documented By: RUCHI Zinc Sulfate (Zinc Sulfate 220 Mg Capsule) 220 mg PO QPM [facility] Stop: 12/12/23 20:59 Last Admin: 11/16/23 20:05 Dose: 220 mg Documented By: Admin: 11/15/23 21:42 Dose: 220 mg Documented By: Admin: 11/14/23 20:27 Dose: 220 mg Documented By: Admin: 11/13/23 20:30 Dose: 220 mg Documented By: Admin: 11/12/23 20:21 Dose: 220 mg Documented By: IOANA Home Medications Medication Instructions Recorded Confirmed Last Taken ascorbic acid (vitamin C) 1,000 mg 1,000 mg PO QPM 07/24/22 11/12/23 11/11/23 tablet,extended release (Vitamin C ER) atenolol 25 mg tablet 12.5 mg PO DAILY gout 07/24/22 11/12/23 11/12/23 baclofen 10 mg tablet 10 mg PO BID PRN Muscle Spasm 07/24/22 11/12/23 2 Months Ago ~01/24/23 bumetanide 1 mg tablet 1 mg PO QPM 07/24/22 11/12/23 11/12/23 1 MG calcium carbonate 600 mg-vitamin 1 tab PO QPM 07/24/22 11/12/23 11/11/23 D3 10 mcg (400 unit) tablet (Calcium 600 + D(3)) multivitamin 1 tab PO QPM 07/24/22 11/12/23 11/11/23 potassium chloride 10 mEq 10 meq PO QPM 07/24/22 11/12/23 11/11/23 tablet,extended 10 MEQ release(part/cryst) (Klor-Con M) acetaminophen 500 mg capsule 1,000 mg PO TID PRN Pain 03/26/23 11/12/23 03/25/23 allopurinol 300 mg tablet 300 mg PO DAILY 11/12/23 11/12/23 Unknown apixaban 5 mg tablet (Eliquis) 5 mg PO BID 11/12/23 11/12/23 11/12/23 08:00 hydrochlorothiazide 12.5 mg capsule 12.5 mg PO DAILY 11/12/23 11/12/23 Unknown hydrocodone 7.5 mg-acetaminophen 1 tab PO Q8H PRN Severe Pain 11/12/23 11/12/23 Unknown 325 mg tablet (Scale Score 7-10) montelukast 10 mg tablet 10 mg PO DAILY 11/12/23 11/12/23 Unknown zinc gluconate 50 mg tablet 50 mg PO QPM 11/12/23 11/12/23 11/11/23 Active Medications Generic Name Dose Route Start Last Admin Trade Name Freq PRN Reason Stop Dose Admin Acetaminophen 1,000 mg 11/12/23 19:53 11/13/23 14:07 Acetaminophen 500 Mg Tab PO 12/12/23 19:52 1,000 mg TID PRN Administration Pain Allopurinol 300 mg 11/13/23 09:00 11/17/23 09:08 Allopurinol 300 Mg Tab PO 12/13/23 08:59 300 mg DAILY FERNANDA Administration Alprazolam 0.5 mg 11/14/23 21:00 11/16/23 20:08 Alprazolam 0.5 Mg Tablet PO 12/14/23 20:59 0.5 mg QPM FERNANDA Administration Amiodarone HCl 200 mg 11/15/23 08:00 11/17/23 09:06 Amiodarone 200 Mg Tab PO 12/15/23 07:59 200 mg TIDM FERNANDA Administration Amoxicillin/Clavulanate Potassium 1 tab 11/15/23 17:00 11/17/23 09:07 Amoxicillin/Clavulanate 875 Mg Tab PO 11/25/23 16:59 1 tab BIDM FERNANDA Administration Protocol Apixaban 5 mg 11/12/23 21:00 11/17/23 09:06 Apixaban 5 Mg Tablet PO 12/12/23 20:59 5 mg BID FERNANDA Administration Ascorbic Acid 1,000 mg 11/12/23 21:00 11/16/23 20:03 Ascorbic Acid 500 Mg Tab PO 12/12/23 20:59 1,000 mg QPM FERNANDA Administration Calcium/Vitamin D 1 tab 11/12/23 21:00 11/16/23 20:03 Calcium 600mg + Vit D 400 Iu Tab PO 12/12/23 20:59 1 tab QPM FERNANDA Administration Loratadine 10 mg 11/13/23 09:00 11/17/23 09:08 Loratadine 10 Mg Tab PO 12/13/23 08:59 10 mg QAM FERNANDA Administration Melatonin 3 mg 11/15/23 21:00 11/16/23 20:04 Melatonin 3 Mg Tab PO 12/15/23 20:59 3 mg HS FERNANDA Administration Metoprolol Succinate 75 mg 11/15/23 09:00 11/17/23 09:07 Metoprolol Succ 25mg Ext Rel Tab PO 12/15/23 08:59 75 mg BID FERNANDA Administration Multivitamins 1 tab 11/12/23 21:00 11/16/23 20:05 Multivitamin Tab PO 12/12/23 20:59 1 tab QPM FERNANDA Administration Potassium Chloride 10 meq 11/12/23 21:00 11/16/23 20:04 Potassium Chloride 10 Meq Tabcr PO 12/12/23 20:59 10 meq QPM FERNANDA Administration Simethicone 80 mg 11/16/23 19:42 11/16/23 20:03 Simethicone 80 Mg Chew PO 12/16/23 19:41 80 mg Q6H PRN Administration Gas or Constipation Zinc Sulfate 220 mg 11/12/23 21:00 11/16/23 20:05 Zinc Sulfate 220 Mg Capsule PO 12/12/23 20:59 220 mg QPM FERNANDA Administration
[2023-11-17] MEDS ORDERED: BENZOCAINE/TETRACAIN/BUTAM 50 APPLN/5 GM CAN EXT ONE (07:15)
--- NOTE | 2023-11-17 07:21 | History & Physical Bridge Note ---
Date of Service November 17, 2023 History & Physical Bridge Note I have examined the patient, reviewed the History & Physical and in the interval since the performance of the History & Physical I have noted the following changes of clinical significance: no changes noted
--- NOTE | 2023-11-17 08:05 | Post Operative Brief Note ---
Cardiology Brief Post Op Date of Surgery November 17, 2023 Pre & Post Diagnosis Operation Date: 11/17/23 07:15 Procedure Preprocedure diagnosis: Evaluate for left atrial appendage thrombus, symptomatic persistent atrial fibrillation, left ventricular systolic dysfunction Post procedure diagnosis: No left atrial or left atrial appendage thrombus, successful conversion to sinus rhythm Transesophageal echocardiogram guided direct-current cardioversion procedure: After informed consent was obtained and timeout was performed the patient was sedated with the assistance of the anesthesia service. The patient has what is characterized as a high risk airway with a short chin and has a history of obstructive sleep apnea. A focused transesophageal echocardiogram was performed with no evidence of left atrial or left atrial appendage thrombus. The patient then underwent direct-current cardioversion receiving a single dose of 200 J of biphasic energy with successful conversion to sinus rhythm. Manager Of Financial Reporting Clifton Valerio DO Commodity Manager Maia Cornejo, RCS Estimated Blood Loss 0 Findings Consistent with Post-Op Diagnosis Anesthesia Type MAC Complications none
[2023-11-17] MEDS ORDERED: PROPOFOL IV EMULSION 10 MG/ML 20 ML VIAL IV ONE (08:12)
[2023-11-17] MEDS ORDERED: ePHEDrine sulfate 50 MG/5 ML SYR ONE (08:12)
[2023-11-17] MEDS ORDERED: LIDOCAINE 2% 2 ML VIAL/AMP(20MG/ML) INFIL ONE (08:12)
--- NOTE | 2023-11-17 08:17 | Cardiology Progress Note ---
Date of Service November 17, 2023 Assessment & Plan (1) Atrial fibrillation with rapid ventricular response: Plan: Continue amiodarone 200 mg PO TID with meals, metoprolol succinate 75 mg BID, Eliquis 5 mg BID. (2) NYHA class 3 heart failure with reduced ejection fraction: Plan: Holding furosemide post cardioversion, but anticipate need for dose later today. Potassium replaced orally for level of 3.5 mmol/l. Start spironolactone 12.5 mg daily. (3) Hypertension: Plan: Blood pressure has been relatively low, preventing addition of GO / ARB, or neprilysin inhibitor. (4) Dilated cardiomyopathy: Plan: Suspect tachycardia induced CM given clinical presentation, and suspect has been in AF with RVR perhaps for 3 months, based on symptoms. Ischemic work up yet to be performed. Plan Discussed case with her primary engineering systems analyst, [place] Saldivar [place] [facility] 11[place]16/23, and coordinated care. Plan to continue amiodarone through ablation appointment. Admission and Anticipated Discharge Date Admission Date: November 12, 2023 Subjective Patient seen in follow-up prior to, during, and post CRYSTAL cardioversion procedure. Patient converted to sinus rhythm. Focused echocardiogram revealed no left atrial or left atrial appendage thrombus, there was however sluggish flow noted in the left atrium with spontaneous echo contrast. Severe left ventricular systolic dysfunction noted, LVEF 20% with severe global left ventricular hypokinesis. Physical Exam Constitutional: no acute distress Eyes: PERRL, conjunctivae normal, anicteric sclerae Respiratory: Auscultation: + diminished lung sounds (decreased BS bilaterally at the bases ); no crackles and no rales Cardiovascular: Rate/Rhythm: + tachycardic and + irregularly irregular Heart Sounds: no murmur Gastrointestinal (Abdomen): normal bowel sounds, soft, nontender, no hepatosplenomegaly Neurologic: PERRL, EOMI, accommodation nl, no face palsy, no dysarthria Results & Data Vital Signs (Past 12 Hours) Vital Signs Temp Pulse Pulse Resp BP BP Pulse Ox 11/17/23 08:05 68 16 90/54 L 98 11/17/23 07:13 111 H 14 120/84 95 11/17/23 07:00 11/17/23 06:00 114 H 12 11/17/23 05:00 98 H 4 L 11/17/23 04:00 120 H 8 L 11/17/23 03:44 36.4 C L 104 H 20 139/104 H 98 11/17/23 03:42 102 H 32 H 11/17/23 03:42 139/104 H 11/17/23 03:00 96 H 27 H 11/17/23 02:00 99 H 27 H 11/17/23 01:00 111 H 28 H 11/17/23 00:01 105 H 31 H 11/17/23 00:01 157/125 H 11/17/23 00:00 105 H 33 H 11/16/23 23:01 101/79 11/16/23 23:01 98 H 29 H 11/16/23 23:00 116 H 28 H 11/16/23 22:35 36.7 C 109 H 15 111/95 95 11/16/23 22:32 111/95 11/16/23 22:32 116 H 30 H 11/16/23 22:00 110 H 30 H 11/16/23 21:00 113 H 34 H O2 Del Method 11/17/23 08:05 Oxymask 11/17/23 07:13 Room Air 11/17/23 07:00 Room Air 11/17/23 06:00 11/17/23 05:00 11/17/23 04:00 11/17/23 03:44 CPAP 11/17/23 03:42 11/17/23 03:42 11/17/23 03:00 11/17/23 02:00 11/17/23 01:00 11/17/23 00:01 11/17/23 00:01 11/17/23 00:00 11/16/23 23:01 11/16/23 23:01 11/16/23 23:00 11/16/23 22:35 Room Air, CPAP 11/16/23 22:32 11/16/23 22:32 11/16/23 22:00 11/16/23 21:00 Laboratory Results CBC 11/16/23 11/17/23 Range/Units 08:49 04:16 WBC 6.90 6.79 (4.8-10.8) K/ul RBC 4.49 4.27 (4.20-5.40) M/uL Hgb 13.4 12.8 (12.0-16.0) g/dl Hct 40.9 38.9 (37.0-47.0) % Plt Count 258 219 (130-400) K/uL Comprehensive Metabolic Panel 11/16/23 11/17/23 Range/Units 08:49 04:16 Sodium 141 136 (136-145) mmol/L Potassium 3.3 L 3.5 (3.5-5.1) mmol/L Chloride 102 102 (98-107) mmol/L Carbon Dioxide 30 26 (21-32) mmol/L BUN 26 H 22 (6-23) mg/dl Creatinine 0.92 0.88 (0.6-1.2) mg/dl Glucose 146 H 120 H (70-99(Fasting)) mg/dl Calcium 9.9 9.9 (8.6-10.3) mg/dl Intake and Output 11/16/23 11/17/23 11/17/23 22:59 06:59 14:59 Intake Total 480 / 480 0 / 480 Output Total 701 / 701 Balance -221 / -221 0 / -221 Intake: Oral 480 / 480 0 / 480 Output: Urine 700 / 700 # Bowel Movements / Other: # Unmeasured Voids 1 Weight 110.6 kg Patient Weight 11/18/23 06:59 Weight 110.6 kg (3) Hypertension Hypertension type: primary hypertension Qualified Code(s): I10 - Essential (primary) hypertension
[2023-11-17] MEDS: AMIODARONE 200 MG TAB PO SCH ×3 (09:06→18:38)
[2023-11-17] MEDS: APIXABAN 5 MG TABLET PO SCH ×2 (09:06→20:15)
[2023-11-17] MEDS: AMOXICILLIN/CLAVULANATE 875 MG TAB PO SCH ×2 (09:07→18:38)
[2023-11-17] MEDS: METOPROLOL SUCC 25MG EXT REL TAB PO SCH ×2 (09:07→20:17)
[2023-11-17] MEDS: allopurinoL 300 MG TAB PO SCH (09:08)
[2023-11-17] MEDS: LORATADINE 10 MG TAB PO SCH (09:08)
--- NOTE | 2023-11-17 09:28 | Anesthesiology Progress Note ---
Date of Service November 17, 2023 Anesthesia Post Procedure Vital Signs Vital Signs: Temp Pulse Pulse Resp BP BP Pulse Ox 11/17/23 09:15 69 16 112/81 94 11/17/23 09:00 67 16 106/80 94 11/17/23 08:20 66 16 101/55 L 98 11/17/23 08:05 68 16 90/54 L 98 11/17/23 07:13 111 H 14 120/84 95 11/17/23 07:00 11/17/23 06:00 114 H 12 11/17/23 05:00 98 H 4 L 11/17/23 04:00 120 H 8 L 11/17/23 03:44 36.4 C L 104 H 20 139/104 H 98 11/17/23 03:42 102 H 32 H 11/17/23 03:42 139/104 H 11/17/23 03:00 96 H 27 H 11/17/23 02:00 99 H 27 H 11/17/23 01:00 111 H 28 H 11/17/23 00:01 105 H 31 H 11/17/23 00:01 157/125 H 11/17/23 00:00 105 H 33 H 11/16/23 23:01 101/79 11/16/23 23:01 98 H 29 H 11/16/23 23:00 116 H 28 H 11/16/23 22:35 36.7 C 109 H 15 111/95 95 11/16/23 22:32 111/95 11/16/23 22:32 116 H 30 H 11/16/23 22:00 110 H 30 H 11/16/23 21:00 113 H 34 H 11/16/23 20:00 117 H 31 H 91 11/16/23 19:44 11/16/23 19:30 37.0 C 11/16/23 19:18 11/16/23 19:04 112/91 11/16/23 19:04 132 H 35 H 95 11/16/23 19:02 126 H 25 H 11/16/23 17:40 112 H 11/16/23 16:19 36.8 C 116 H 18 118/71 94 11/16/23 14:19 103 H 11/16/23 12:22 36.6 C 109 H 17 108/76 92 O2 Del Method O2 Del Method O2 Flow Rate 11/17/23 09:15 Nasal Cannula 2 11/17/23 09:00 Nasal Cannula 2 11/17/23 08:20 Oxymask 11/17/23 08:05 Oxymask 11/17/23 07:13 Room Air 11/17/23 07:00 Room Air 11/17/23 06:00 11/17/23 05:00 11/17/23 04:00 11/17/23 03:44 CPAP 11/17/23 03:42 11/17/23 03:42 11/17/23 03:00 11/17/23 02:00 11/17/23 01:00 11/17/23 00:01 11/17/23 00:01 11/17/23 00:00 11/16/23 23:01 11/16/23 23:01 11/16/23 23:00 11/16/23 22:35 Room Air, CPAP 11/16/23 22:32 11/16/23 22:32 11/16/23 22:00 11/16/23 21:00 11/16/23 20:00 11/16/23 19:44 Room Air 11/16/23 19:30 11/16/23 19:18 Room Air 11/16/23 19:04 11/16/23 19:04 11/16/23 19:02 11/16/23 17:40 11/16/23 16:19 Room Air 11/16/23 14:19 11/16/23 12:22 Room Air Pain Intensity Bilateral Abdomen: Pain Intensity: 6 Transfer of Care Handoff Completed per policy Notes Mental Status: alert / awake / arousable and participated in evaluation Patient Amnestic to Procedure: Yes Nausea / Vomiting: adequately controlled Pain: adequately controlled Airway Patency, RR, SpO2: stable & adequate BP & HR: stable & adequate Hydration State: stable & adequate Anesthetic Complications: no major complications apparent
[2023-11-17] MEDS ORDERED: COUGH DROP (SUGAR FREE) LOZ 24 LOZ/1 BOX BUCCAL PRN (11:59)
[2023-11-17] MEDS ORDERED: COUGH DROP (SUGAR FREE) LOZ 24 LOZ/1 BOX BUCCAL STA (11:59)
[2023-11-17] MEDS: SPIRONOLACTONE 12.5 MG TAB PO SCH (12:03)
[2023-11-17] MEDS ORDERED: COUGH DROP (SUGAR FREE) LOZ 24 LOZ/1 BOX BUCCAL ONE (12:06)
--- NOTE | 2023-11-17 12:22 | Electrocardiogram Report ---
Test Reason : Blood Pressure : / mmHG Vent. Rate : 067 BPM Atrial Rate : 067 BPM P-R Int : 164 ms QRS Dur : 090 ms QT Int : 382 ms P-R-T Axes : 100 053 131 degrees QTc Int : 403 ms Normal sinus rhythm Nonspecific ST and T wave abnormality Abnormal ECG When compared with ECG of 13-NOV-2023 06:14, Sinus rhythm has replaced Atrial fibrillation Vent. rate has decreased BY 74 BPM Nonspecific T wave abnormality, improved in Inferior leads Nonspecific T wave abnormality, worse in Lateral leads Confirmed by Jony John ([id number]) on 11/17/2023 12:22:25 PM Referred By: Sidney Saldivar Confirmed By:Dipak John
[2023-11-17] MEDS: ALPRAZolam 0.5 MG TABLET PO SCH (20:14)
[2023-11-17] MEDS: ASCORBIC ACID 500 MG TAB PO SCH (20:15)
[2023-11-17] MEDS: CALCIUM 600MG + VIT D 400 IU TAB PO SCH (20:16)
[2023-11-17] MEDS: ZINC SULFATE 220 MG CAPSULE PO SCH (20:16)
[2023-11-17] MEDS: MULTIVITAMIN TAB PO SCH (20:17)
[2023-11-17] MEDS: POTASSIUM CHLORIDE 10 MEQ TABCR PO SCH (20:19)
[2023-11-17] MEDS: MELATONIN 3 MG TAB PO SCH (20:19)
[2023-11-18] MEDS: ALPRAZolam 0.25 MG TABLET PO PRN ×3 (01:03→16:30)
[2023-11-18 05:17] LABS: Hemoglobin 12.7 g/dl (12.0-16.0); Mean Corpuscular Hemoglobin 29.7 pg (25.0-34.0); Mean Corpuscular Hgb Conc 32.6 g/dL (32.0-36.0); Mean Corpuscular Volume 91.1 fL (80.0-100.0); Mean Platelet Volume 10.1 fL (9.4-12.4); Platelet Count 244 K/uL (130-400); RDW Coefficient of Variation 15.3 % (11.5-14.5); RDW Standard Deviation 50.6 fL (36.4-46.3); Red Blood Count 4.28 M/uL (4.20-5.40); White Blood Count 8.46 K/ul (4.8-10.8)
[2023-11-18 05:37] LABS: Calcium 9.9 mg/dl (8.6-10.3); Magnesium 2.1 mg/dl (1.7-2.4); Potassium 4.5 mmol/L (3.5-5.1)
[2023-11-18 05:39] LABS: Creatinine Clr Calc Pharmacy 70.7 ml/min; Est GFR (African American) 70.4 ml/min; Est GFR (Non-African American) 60.8 ml/min; Phosphorus 3.5 mg/dl (2.5-4.9)
[2023-11-18] MEDS: AMIODARONE 200 MG TAB PO SCH ×3 (07:39→16:30)
[2023-11-18] MEDS: APIXABAN 5 MG TABLET PO SCH ×2 (08:26→19:48)
[2023-11-18] MEDS: SPIRONOLACTONE 12.5 MG TAB PO SCH (08:26)
[2023-11-18] MEDS: METOPROLOL SUCC 25MG EXT REL TAB PO SCH ×2 (08:26→19:51)
[2023-11-18] MEDS: TORSEMIDE 10 MG TAB PO SCH (08:26)
[2023-11-18] MEDS: allopurinoL 300 MG TAB PO SCH (08:26)
[2023-11-18] MEDS: LORATADINE 10 MG TAB PO SCH (08:26)
[2023-11-18] MEDS: AMOXICILLIN/CLAVULANATE 875 MG TAB PO SCH ×2 (08:28→16:30)
--- NOTE | 2023-11-18 09:40 | Cardiology Progress Note ---
Date of Service November 18, 2023 Assessment & Plan (1) Atrial fibrillation with rapid ventricular response: Plan: Continue amiodarone 200 mg PO BID with meals, metoprolol succinate 75 mg BID, Eliquis 5 mg BID. (2) NYHA class 3 heart failure with reduced ejection fraction: Plan: Spironolactone 12.5 mg daily. Torsemide 10 mg PO daily (replaced COMMUNICATION COORDINATOR HCTZ) Blood pressure has been relatively low, preventing addition of GO / ARB, or neprilysin inhibitor.-This will be reassessed in outpatient follow up. (3) Hypertension: Plan: Blood pressure has been relatively low, preventing addition of GO / ARB, or neprilysin inhibitor. (4) Dilated cardiomyopathy: Plan: Suspect tachycardia induced CM given clinical presentation, and suspect has been in AF with RVR perhaps for 3 months, based on symptoms. Ischemic work up yet to be performed. Plan Discussed case with her primary business practices supervisor, Dr Saldivar at [facility] by phone on 11/16/23, and coordinated care. Plan to continue amiodarone through ablation appointment. Keep EP follow up with Donya. Will need general cardiology follow up with [facility] cardiology post discharge for ongoing evaluation and treatment of severe LV systolic dysfunction. I was optimistic patient would be ready for discharge on 11/18/23, however, she is tired and wiped out and slept poorly. She may require another day of observation on her planned oral medications that are to be continued at tome of discharge. Patient has post intolerance to multiple beta archie medications with atypical side effects. Had been on low dose atenolol prior to this hospital stay. If patient does not tolerate metoprolol succinate 50 mg two times per day, can consider transitioning to atenolol 50 mg two times per day. Metoprolol succinate preferred given LV systolic dysfunction, however atenolol often has less fatigue related side effects. Dr Velazquez taking over rounding as of afternoon of 11/18/23. Admission and Anticipated Discharge Date Admission Date: November 12, 2023 Subjective Patient seen in cardiology follow up. She remains in room 104 as a telemetry overflow patient. She states she rested poorly overnight last night with post nasal drip. She used her home CPAP machine for only a few hours. Telemetry reveals SR in the 60s. Physical Exam Constitutional: no acute distress Eyes: PERRL, conjunctivae normal, anicteric sclerae Respiratory: Auscultation: + diminished lung sounds (decreased BS bilaterally at the bases ); no crackles and no rales Cardiovascular: Rate/Rhythm: + tachycardic and + irregularly irregular Heart Sounds: no murmur Gastrointestinal (Abdomen): normal bowel sounds, soft, nontender, no hepatosplenomegaly Neurologic: PERRL, EOMI, accommodation nl, no face palsy, no dysarthria Results & Data Vital Signs (Past 12 Hours) Vital Signs Temp Pulse Pulse Resp BP Pulse Ox O2 Del Method 11/18/23 07:32 36.7 C 64 25 H 124/82 96 Room Air 11/18/23 03:00 36.6 C 70 20 122/79 96 CPAP 11/17/23 23:00 36.6 C 71 19 109/82 95 Room Air 11/17/23 22:00 69 Laboratory Results CBC 11/18/23 Range/Units 04:30 WBC 8.46 (4.8-10.8) K/ul RBC 4.28 (4.20-5.40) M/uL Hgb 12.7 (12.0-16.0) g/dl Hct 39.0 (37.0-47.0) % Plt Count 244 (130-400) K/uL Comprehensive Metabolic Panel 11/18/23 Range/Units 04:30 Sodium 137 (136-145) mmol/L Potassium 4.5 D (3.5-5.1) mmol/L Chloride 103 (98-107) mmol/L Carbon Dioxide 25 (21-32) mmol/L BUN 24 H (6-23) mg/dl Creatinine 0.96 (0.6-1.2) mg/dl Glucose 104 H (70-99(Fasting)) mg/dl Calcium 9.9 (8.6-10.3) mg/dl Intake and Output 11/17/23 11/18/23 11/18/23 22:59 06:59 14:59 Intake Total 320 / 945 300 / 945 Balance 320 / 944 300 / 944 Intake: Oral 320 / 945 300 / 945 Other: # Unmeasured Voids 1 1 Weight 111.8 kg Weight Measurement Method Built in [facility] (3) Hypertension Hypertension type: primary hypertension Qualified Code(s): I10 - Essential (primary) hypertension
[2023-11-18] MEDS ORDERED: ALPRAZolam 0.25 MG TABLET PO STA (10:29)
[2023-11-18] MEDS ORDERED: SODIUM CHLORIDE 0.65% NA SOLN 45 ML (OCEAN) ONE (10:30)
[2023-11-18] MEDS ORDERED: LORATADINE 10 MG TAB PO ONE (11:15)
[2023-11-18] MEDS: FLUTICASONE PROPIONATE NA SPR 16 GM BTL SCH (11:30)
[2023-11-18] MEDS ORDERED: FUROSEMIDE INJ 20 MG/2 ML VIAL IV ONE (12:08)
--- NOTE | 2023-11-18 12:15 | Hospitalist Progress Note ---
Date of Service November 18, 2023 Assessment & Plan (1) Atrial fibrillation with rapid ventricular response: (2) HFrEF (heart failure with reduced ejection fraction): (3) Hypertension: (4) Chronic mastoiditis: (5) Fibromyalgia: (6) WILL on CPAP: Plan Ms. Stringer is a 67-year-old female with PMH of paroxysmal atrial fibrillation on Eliquis, HFrEF (EF20%10/21/23), history of dilated cardiomyopathy, hypertension, chronic sinusitis and mastoiditis, iron deficiency anemia, history of diffuse large B-cell lymphoma, WILL on CPAP and other medical problems listed below who presents with palpitations, chest tightness and fatigue over the past few days and was found to have A fib with RVR and admitted for management on 11/12. Recently admitted at [facility] for a fib with RVR, acute decompensated HFrEF and sepsis 2/2 PNA and was [place] [facility] [place] was complicated colonic distension consistent with acute colonic pseudo-obstruction. Per review of outpatient records, patient refused colonoscopic decompression and has had minimal response to neostigmine (was c diff negative).The patient began to show improvement on 11/03 and was being monitored closely after being resumed on diet andoralmedications. For her A fib specifically, she was being transitioned from IV medications to oral digoxin 125 mcg daily and metoprolol 25 mg XL daily but refused to stay for monitoring with this regimen and left AMA on 11/03. Patient's current admission complicated by continued RVR. Patient has ablation scheduled and goal is to get patient to OP ablation, however, rates remain in uncontrolled. Amiodarone drip discontinued. Plan for PO torsemide. Continued IV diuresis, with likely transition to PO torsemide in am per Cardiology' Ongoing discussions on how to optimize patient for coming ablation. Patient initially apprehensive regarding cardioversion, but agreed with input from EP physican Dr Medina and efforts from Dr Valerio. DCCV successful on 11/17. Remains in NSR. Patient with dyspnea this morning, 11/18, and sensation of anxiety despite good oxygenation. Patient not sure if symptoms related to postnasal drip, anxiety, or heart failure. Will trial 20 lasix IV, in addition to loratadine, Flonase to aid with post nasal drip. #Atrial fibrillation with RVR s/p DCCV on 11/17/2023, now NSR Presented with HR 130s-150s, received 5mg IV Lopressor x 2 in ED with HR in 120s-130s during exam EKG reviewed, showing Afib with RVR; [id number] Infectious workup negative thus far Cardiology on consult, recommendations discussed with PA Discussed case and medication recommendations with Dr. Senior, who recommends trial of PO Lopressor 25mg PO TID and if HR remains elevated, adding 250mcg IV Digoxin and then repeating again 6 hours later if RVR persists Monitor on telemetry, replace lytes prn Continue anticoagulation with Eliquis Discontinued Amiodarone drip 11/16 PO amiodarone 200mg TID continue Spironolactone 12.5mg started for GDMT Continue 75mg Metoprolol XL BID Torsemide 10mg daily -IV 20mg Lasix now to assess improvement in dyspna Discontinued montelukast #Acute decompensated HFrEF with echo from 10/21/23 showing reduced EFof 20% #Dilated cardiomyopathy, tachy-mediated Monitor fluid status, manage RVR as above Concerns for tachymediated decompensation, po bumex held and IV lasix BID started per Dr Santiago 11/13 afternoon Replace lytes prn Transitioned to PO torsemide 10mg qam, however given dyspnea on exam will give IV lasix 20mg now #HTN BP normotensive. Discontinue atenolol Metorpolol and spironolactone as above #Acute on Chronic mastoiditis Ongoing ENT infections, recently completed [place] [facility] [place] with Rocephin/Azithro. Continue loratidine Patient with concerns of recurrent infection, continue augmentin #Fibromyalgia Continue home baclofen, PRN Tylenol and PRN Wilmore for severe pain #WILL Bipap HS #Anxiety Xanax 0.5 mg qhs, and 0.25 prn throughout day/evening DVT Ppx: Eliquis Code status: FULL PCP: Jenny Dispo: Admitted to PCU, potential DC tomorrow contingent on medication titration/management Admission and Anticipated Discharge Date Admission Date: November 12, 2023 Subjective Reports feeling anxious with notable dyspnea, despite good oxygenation Unsure if its her postnasal drip or what may be contributing to her symptoms Remains in NSR Physical Exam Constitutional: anxious, visible restless on exam Respiratory: lungs sound clear, no wheezing/crackles Cardiovascular: RRR, no murmur, no edema Gastrointestinal (Abdomen): normal bowel sounds, soft, nontender, no hepatosplenomegaly Results & Data Results & Data Vital Signs (Past 12 Hours) Vital Signs Temp Pulse Resp BP Pulse Ox O2 Del Method 11/18/23 11:31 36.7 C 65 24 112/66 91 Room Air 11/18/23 07:32 36.7 C 64 25 H 124/82 96 Room Air 11/18/23 03:00 36.6 C 70 20 122/79 96 CPAP Laboratory Results Short CBC 11/18/23 Range/Units 04:30 WBC 8.46 (4.8-10.8) K/ul Hgb 12.7 (12.0-16.0) g/dl Hct 39.0 (37.0-47.0) % Plt Count 244 (130-400) K/uL BMP 11/18/23 04:30 Sodium 137 Potassium 4.5 D Chloride 103 Carbon Dioxide 25 BUN 24 H Creatinine 0.96 Glucose 104 H Calcium 9.9 Medications Administered Home Medications Medication Instructions Recorded Confirmed Last Taken ascorbic acid (vitamin C) 1,000 mg 1,000 mg PO QPM 07/24/22 11/12/23 11/11/23 tablet,extended release (Vitamin C ER) atenolol 25 mg tablet 12.5 mg PO DAILY gout 07/24/22 11/12/23 11/12/23 baclofen 10 mg tablet 10 mg PO BID PRN Muscle Spasm 07/24/22 11/12/23 2 Months Ago ~01/24/23 bumetanide 1 mg tablet 1 mg PO QPM 07/24/22 11/12/23 11/12/23 1 MG calcium carbonate 600 mg-vitamin 1 tab PO QPM 07/24/22 11/12/23 11/11/23 D3 10 mcg (400 unit) tablet (Calcium 600 + D(3)) multivitamin 1 tab PO QPM 07/24/22 11/12/23 11/11/23 potassium chloride 10 mEq 10 meq PO QPM 07/24/22 11/12/23 11/11/23 tablet,extended 10 MEQ release(part/cryst) (Klor-Con M) acetaminophen 500 mg capsule 1,000 mg PO TID PRN Pain 03/26/23 11/12/2303/25/23 allopurinol 300 mg tablet 300 mg PO DAILY 11/12/23 11/12/23 Unknown apixaban 5 mg tablet (Eliquis) 5 mg PO BID 11/12/23 11/12/23 11/12/23 08:00 hydrochlorothiazide 12.5 mg capsule 12.5 mg PO DAILY 11/12/23 11/12/23 Unknown hydrocodone 7.5 mg-acetaminophen 1 tab PO Q8H PRN Severe Pain 11/12/23 11/12/23 Unknown 325 mg tablet (Scale Score 7-10) montelukast 10 mg tablet 10 mg PO DAILY 11/12/23 11/12/23 Unknown zinc gluconate 50 mg tablet 50 mg PO QPM 11/12/23 11/12/23 11/11/23 Active Medications Generic Name Dose Route Start Last Admin Trade Name Freq PRN Reason Stop Dose Admin Acetaminophen 1,000 mg 11/12/23 19:53 11/13/23 14:07 Acetaminophen 500 Mg Tab PO 12/12/23 19:52 1,000 mg TID PRN Administration Pain Allopurinol 300 mg 11/13/23 09:00 11/18/23 08:26 Allopurinol 300 Mg Tab PO 12/13/23 08:59 300 mg DAILY FERNANDA Administration Alprazolam 0.25 mg 11/14/23 17:22 11/18/23 08:27 Alprazolam 0.25 Mg Tablet PO 12/14/23 17:21 0.25 mg Q8H PRN Administration anixety Alprazolam 0.5 mg 11/14/23 21:00 11/17/23 20:14 Alprazolam 0.5 Mg Tablet PO 12/14/23 20:59 0.5 mg QPM FERNANDA Administration Amiodarone HCl 200 mg 11/17/23 17:00 11/18/23 08:26 Amiodarone 200 Mg Tab PO 12/17/23 16:59 200 mg BIDM FERNANDA Administration Amoxicillin/Clavulanate Potassium 1 tab 11/15/23 17:00 11/18/23 08:28 Amoxicillin/Clavulanate 875 Mg Tab PO 11/25/23 16:59 1 tab BIDM FERNANDA Administration Protocol Apixaban 5 mg 11/12/23 21:00 11/18/23 08:26 Apixaban 5 Mg Tablet PO 12/12/23 20:59 5 mg BID FERNANDA Administration Ascorbic Acid 1,000 mg 11/12/23 21:00 11/17/23 20:15 Ascorbic Acid 500 Mg Tab PO 12/12/23 20:59 1,000 mg QPM FERNANDA Administration Calcium/Vitamin D 1 tab 11/12/23 21:00 11/17/23 20:16 Calcium 600mg + Vit D 400 Iu Tab PO 12/12/23 20:59 1 tab QPM FERNANDA Administration Fluticasone Propionate 2 sprays 11/18/23 11:15 11/18/23 11:30 Fluticasone Propionate Na Spr 16 Gm Btl NA 12/18/23 11:14 2 sprays DAILY FERNANDA Administration Loratadine 10 mg 11/13/23 09:00 11/18/23 08:26 Loratadine 10 Mg Tab PO 12/13/23 08:59 10 mg QAM FERNANDA Administration Melatonin 3 mg 11/15/23 21:00 11/17/23 20:19 Melatonin 3 Mg Tab PO 12/15/23 20:59 3 mg HS FERNANDA Administration Metoprolol Succinate 75 mg 11/15/23 09:00 11/18/23 08:26 Metoprolol Succ 25mg Ext Rel Tab PO 12/15/23 08:59 75 mg BID FERNANDA Administration Multivitamins 1 tab 11/12/23 21:00 11/17/23 20:17 Multivitamin Tab PO 12/12/23 20:59 1 tab QPM FERNANDA Administration Potassium Chloride 10 meq 11/12/23 21:00 11/17/23 20:19 Potassium Chloride 10 Meq Tabcr PO 12/12/23 20:59 10 meq QPM FERNANDA Administration Simethicone 80 mg 11/16/23 19:42 11/16/23 20:03 Simethicone 80 Mg Chew PO 12/16/23 19:41 80 mg Q6H PRN Administration Gas or Constipation Spironolactone 12.5 mg 11/17/23 09:00 11/18/23 08:26 Spironolactone 12.5 Mg Tab PO 12/17/23 08:59 12.5 mg DAILY FERNANDA Administration Torsemide 10 mg 11/18/23 09:00 11/18/23 08:26 Torsemide 10 Mg Tab PO 12/18/23 08:59 10 mg QAM FERNANDA Administration Zinc Sulfate 220 mg 11/12/23 21:00 11/17/23 20:16 Zinc Sulfate 220 Mg Capsule PO 12/12/23 20:59 220 mg QPM FERNANDA Administration
[2023-11-18] MEDS: SIMETHICONE 80 MG CHEW PO PRN (18:09)
[2023-11-18] MEDS: ALPRAZolam 0.5 MG TABLET PO SCH (19:47)
[2023-11-18] MEDS: ASCORBIC ACID 500 MG TAB PO SCH (19:48)
[2023-11-18] MEDS: CALCIUM 600MG + VIT D 400 IU TAB PO SCH (19:50)
[2023-11-18] MEDS: MULTIVITAMIN TAB PO SCH (19:53)
[2023-11-18] MEDS: ZINC SULFATE 220 MG CAPSULE PO SCH (19:54)
[2023-11-18] MEDS: MELATONIN 3 MG TAB PO SCH (19:57)
[2023-11-18] MEDS: POTASSIUM CHLORIDE 10 MEQ TABCR PO SCH (19:57)
[2023-11-19 05:23] LABS: Hematocrit (blood only) 36.3 % (37.0-47.0); Hemoglobin 11.8 g/dl (12.0-16.0); Mean Corpuscular Hemoglobin 29.8 pg (25.0-34.0); Mean Corpuscular Hgb Conc 32.5 g/dL (32.0-36.0); Mean Corpuscular Volume 91.7 fL (80.0-100.0); Mean Platelet Volume 9.7 fL (9.4-12.4); Platelet Count 249 K/uL (130-400); RDW Coefficient of Variation 15.3 % (11.5-14.5); RDW Standard Deviation 50.5 fL (36.4-46.3); Red Blood Count 3.96 M/uL (4.20-5.40); White Blood Count 6.92 K/ul (4.8-10.8)
[2023-11-19 05:36] LABS: Calcium 9.8 mg/dl (8.6-10.3); Creatinine Clr Calc Pharmacy 68.3 ml/min; Est GFR (Non-African American) 57.8 ml/min; Phosphorus 4.1 mg/dl (2.5-4.9); Potassium 4.2 mmol/L (3.5-5.1)
[2023-11-19] MEDS: FLUTICASONE PROPIONATE NA SPR 16 GM BTL SCH (08:47)
[2023-11-19] MEDS: APIXABAN 5 MG TABLET PO SCH (08:47)
[2023-11-19] MEDS: allopurinoL 300 MG TAB PO SCH ×2 (08:47→08:52)
[2023-11-19] MEDS: AMIODARONE 200 MG TAB PO SCH ×2 (08:47→16:49)
[2023-11-19] MEDS: AMOXICILLIN/CLAVULANATE 875 MG TAB PO SCH ×2 (08:47→16:48)
[2023-11-19] MEDS: METOPROLOL SUCC 25MG EXT REL TAB PO SCH (08:48)
[2023-11-19] MEDS: LORATADINE 10 MG TAB PO SCH (08:48)
[2023-11-19] MEDS: SPIRONOLACTONE 12.5 MG TAB PO SCH (08:48)
[2023-11-19] MEDS: TORSEMIDE 10 MG TAB PO SCH (08:48)
--- NOTE | 2023-11-19 11:14 | Cardiology Progress Note ---
Date of Service November 19, 2023 Assessment & Plan (1) Atrial fibrillation with rapid ventricular response: Plan: Continue amiodarone 200 mg PO BID with meals, metoprolol succinate 75 mg BID, Eliquis 5 mg BID. (2) NYHA class 3 heart failure with reduced ejection fraction: Plan: Spironolactone 12.5 mg daily. Torsemide 10 mg PO daily (replaced COMFORT FILLER HCTZ) Blood pressure has been relatively low, preventing addition of GO / ARB, or neprilysin inhibitor.-This will be reassessed in outpatient follow up. (3) Hypertension: Plan: Blood pressure has been relatively low, preventing addition of GO / ARB, or neprilysin inhibitor. (4) Dilated cardiomyopathy: Plan: Suspect tachycardia induced CM given clinical presentation, and suspect has been in AF with RVR perhaps for 3 months, based on symptoms. Ischemic work up yet to be performed. Plan Discussed case with her primary tire technician, Dr Saldivar at [facility] by phone on 11/16/23, and coordinated care. Plan to continue amiodarone through ablation appointment. Keep EP follow up with Donya. Will need general cardiology follow up with [facility] cardiology post discharge for ongoing evaluation and treatment of severe LV systolic dysfunction. Currently tolerating amiodarone and metoprolol succinate. Anticipated pulmonary vein isolation ablation for atrial fibrillation on 11/24/2023 Stable for discharge today after EKG Admission and Anticipated Discharge Date Admission Date: November 12, 2023 Subjective Patient was seen and examined, chart, medications, telemetry reviewed. Overall feels improved this morning. Telemetry reveals patient maintaining sinus rhythm. No tachycardia or bradycardia arrhythmias. Physical Exam Constitutional: no acute distress Eyes: PERRL, conjunctivae normal, anicteric sclerae Neck: trachea midline, no thyromegaly Respiratory: normal respiratory effort, lungs clear to auscultation Au scultation: + diminished lung sounds (decreased BS bilaterally at the bases ); no crackles and no rales Cardiovascular: Rate/Rhythm: regular rate and regular rhythm Heart Sounds: no murmur Gastrointestinal (Abdomen): normal bowel sounds, soft, nontender, no hepatosplenomegaly Neurologic: PERRL, EOMI, accommodation nl, no face palsy, no dysarthria Results & Data Vital Signs (Past 12 Hours) Vital Signs Temp Pulse Resp BP Pulse Ox O2 Del Method 11/19/23 07:44 36.5 C 66 20 105/61 96 Room Air 11/19/23 07:00 Room Air 11/19/23 03:54 37.1 C 58 L 20 117/80 93 Room Air 11/18/23 23:56 36.5 C 56 L 24 119/81 93 CPAP Laboratory Results Laboratory Results - last 24 hr 11/19/23 04:55 WBC 6.92 RBC 3.96 L Hgb 11.8 L Hct 36.3 L MCV 91.7 MCH 29.8 MCHC 32.5 RDW Std Deviation 50.5 H RDW Coeff of Stevan 15.3 H Plt Count 249 MPV 9.7 Sodium 140 Potassium 4.2 Chloride 103 Carbon Dioxide 30 Anion Gap 7 BUN 21 Creatinine 1.00 Est Cr Clr Drug Dosing 68.3 Est GFR ( Amer) 67.0 Est GFR (Non-Af Amer) 57.8 BUN/Creatinine Ratio 21.0 H Glucose 97 Calcium 9.8 Phosphorus 4.1 Magnesium 2.0 (3) Hypertension Hypertension type: primary hypertension Qualified Code(s): I10 - Essential (primary) hypertension
--- NOTE | 2023-11-19 11:54 | Discharge Summary ---
Discharge Summary Date of Service November 19, 2023 Notes For Next Care Provider EF 20%, plan for heart failure follow up Medication Changes From Visit Discontinue Bumex Discontinue HCTZ Discontinue Atenolol Start Metoprolol 75mg BID Start Amiodarone 200mg BID Start Torsemide 10mg daily Continue eliquis Admission HPI Per Admitting Provider This is a 67-year-old female with PMH of paroxysmal atrial fibrillation on Eliquis, HFrEF (EF20%10/21/23), history of dilated cardiomyopathy, hypertension, chronic sinusitis and mastoiditis, iron deficiency anemia, history of diffuse large B-cell lymphoma, WILL on CPAP and other medical problems listed below who presents with palpitations, chest tightness and fatigue over the past few days. Was recently admitted at [facility] for a fib with RVR, acute decompensated HFrEF and sepsis 11/27 PNA and was eventually transferred to [facility] after course was complicated colonic distension consistent with acute colonic pseudo-obstruction. Per review of outpatient records, patient refused colonoscopic decompression and has had minimal response to neostigmine (was c diff negative).The patient began to show improvement on 11/03 and was being monitored closely after being resumed on diet andoralmedications. For her A fib specifically, she was being transitioned from IV medications to oral digoxin 125 mcg daily and metoprolol 25 mg XL daily but refused to stay for monitoring with this regimen and left AMA on 11/03. Since returning home, patient has developed progressively worsened SOB as well as a squeezing pain in her back that radiates around her ribcage and causes inability to take a deep breath. She has been having this sensation for 4 days but it has gotten progressively worse in the past few. It is exacerbated with ambulation. [place] SOB last evening and overnight even while on CPAP and she slept upright in recliner for the rest of the night. Presents today with generalized weakness, fatigue and squeezing sensation in lower back. Endorses fever of 100.5 F the last 2 nights and 100.4 F this morning. Has nasal congestion, left ear fullness and a dry cough. No CP. Endorsing loose brown stool but no bright red blood. Having 2-3 episodes daily, which is significant improvement from the diarrhea she had during hospitalization at [facility]. Follows with Dr. Medina for cardiology at [facility] and has an upcoming appointment for an ablation but is scheduled for an upcoming second opinion with Dr. Melendez Principal Dx & Hospital Course #1 = Principal Diagnosis (1) Atrial fibrillation with rapid ventricular response: (2) HFrEF (heart failure with reduced ejection fraction): (3) Hypertension: (4) Chronic mastoiditis: (5) Fibromyalgia: (6) WILL on CPAP: Plan Ms. Stringer is a 67-year-old female with PMH of paroxysmal atrial fibrillation on Eliquis, HFrEF (EF20%10/21/23), history of dilated cardiomyopathy, hypertension, chronic sinusitis and mastoiditis, iron deficiency anemia, history of diffuse large B-cell lymphoma, WILL on CPAP and other medical problems listed below who presents with palpitations, chest tightness and fatigue over the past few days and was found to have A fib with RVR and admitted for management on 11/12. Recently admitted at [facility] for a fib with RVR, acute decompensated HFrEF and sepsis 2/2 PNA and was eventually transferred to [facility] after course was complicated colonic distension consistent with acute colonic pseudo-obstruction. Per review of outpatient records, patient refused colonoscopic decompression and has had minimal response to neostigmine (was c diff negative).The patient began to show improvement on 11/03 and was being monitored closely after being resumed on diet andoralmedications. For her A fib specifically, she was being transitioned from IV medications to oral digoxin 125 mcg daily and metoprolol 25 mg XL daily but refused to stay for monitoring with this regimen and left AMA on 11/03. Patient's current admission complicated by continued RVR. Patient has ablation scheduled and goal is to get patient to OP ablation, however, rates remain in uncontrolled. Amiodarone drip discontinued. Plan for PO torsemide. Continued IV diuresis, with likely transition to PO torsemide in am per Cardiology' Ongoing discussions on how to optimize patient for coming ablation. Patient initially apprehensive regarding cardioversion, but agreed with input from EP physican Dr Medina and efforts from Dr Valerio. DCCV successful on 11/17. Remains in NSR. Patient with dyspnea this morning, 11/18, and sensation of anxiety despite good oxygenation. Patient not sure if symptoms related to postnasal drip, anxiety, or heart failure. Will trial 20 lasix IV, in addition to loratadine, Flonase to aid with post nasal drip. #Atrial fibrillation with RVR s/p DCCV on 11/17/2023, now NSR Presented with HR 130s-150s, received 5mg IV Lopressor x 2 in ED with HR in 120s-130s during exam EKG reviewed, showing Afib with RVR; [id number] 4 Infectious workup negative thus far Cardiology on consult, recommendations discussed with PA Discussed case and medication recommendations with Dr. Senior, who recommends trial of PO Lopressor 25mg PO TID and if HR remains elevated, adding 250mcg IV Digoxin and then repeating again 6 hours later if RVR persists Monitor on telemetry, replace lytes prn Continue anticoagulation with Eliquis Discontinued Amiodarone drip 11/16 PO amiodarone 200mg TID continue Spironolactone 12.5mg started for GDMT Continue 75mg Metoprolol XL BID Torsemide 10mg daily Discontinued montelukast Discontinue home HCTZ/bumex/atenolol #Acute decompensated HFrEF with echo from 10/21/23 showing reduced EFof 20% #Dilated cardiomyopathy, tachy-mediated Monitor fluid status, manage RVR as above Concerns for tachymediated decompensation, po bumex held and IV lasix BID started per Dr Santiago 11/13 afternoon Recieved multiple days of IV lasix BID, and spot doses s/p cardioversion Continue PO torsemide 10mg qam, #HTN BP normotensive. Discontinue atenolol Metorpolol and spironolactone as above #Acute on Chronic mastoiditis Ongoing ENT infections, recently completed abx treatment at [facility] for PNA with Rocephin/Azithro. Continue loratidine Patient with concerns of recurrent infection, continue augmentin x5 days on discharge #Fibromyalgia Continue home baclofen, PRN Tylenol and PRN [place] for severe pain #WILL Bipap HS #Anxiety Xanax 0.5 mg qhs as needed on discharge On day of discharge, patient denied any pain, reported understanding of plan to stabilze to get to OP ablation with Dr. Meidna. Patient states she feels "ok" and without SOB, chest pain, palpitations or other acute concerns. Discharge Exam Constitutional WD/WN, vitals as above Respiratory normal respiratory effort, lungs clear to auscultation Cardiovascular RRR, no murmur, no edema Gastrointestinal (Abdomen) normal bowel sounds, soft, nontender, no hepatosplenomegaly Updated Medication List Medication Instructions Recorded Confirmed Type ascorbic acid (vitamin C) 1,000 mg 1,000 mg PO QPM 07/24/22 11/12/23 History tablet,extended release (Vitamin C ER) baclofen 10 mg tablet 10 mg PO BID PRN Muscle Spasm 07/24/22 11/12/23 History calcium carbonate 600 mg-vitamin 1 tab PO QPM 07/24/22 11/12/23 History D3 10 mcg (400 unit) tablet (Calcium 600 + D(3)) multivitamin 1 tab PO QPM 07/24/22 11/12/23 History potassium chloride 10 mEq 10 meq PO QPM 07/24/22 11/12/23 History tablet,extended release(part/cryst) (Klor-Con M) acetaminophen 500 mg capsule 1,000 mg PO TID PRN Pain 03/26/23 11/12/23 History allopurinol 300 mg tablet 300 mg PO DAILY 11/12/23 11/12/23 History apixaban 5 mg tablet (Eliquis) 5 mg PO BID 11/12/23 11/12/23 History hydrocodone 7.5 mg-acetaminophen 1 tab PO Q8H PRN Severe Pain 11/12/23 11/12/23 History 325 mg tablet (Scale Score 7-10) zinc gluconate 50 mg tablet 50 mg PO QPM 11/12/23 11/12/23 History alprazolam 0.5 mg tablet (Xanax) 0.5 mg PO QPM as needed for sleep 11/19/23 Rx #14 tabs amiodarone 200 mg tablet 200 mg PO BIDM #60 tabs 11/19/23 Rx amoxicillin 875 mg-potassium 1 tab PO BIDM #10 tabs 11/19/23 Rx clavulanate 125 mg tablet loratadine 10 mg tablet (Wal-itin) 10 mg PO QAM #30 tabs 11/19/23 Rx metoprolol succinate 25 mg 75 mg (3 x 25 mg) PO BID #180 tabs 11/19/23 Rx tablet,extended release 24 hr spironolactone 25 mg tablet 12.5 mg (1/2 x 25 mg) PO DAILY #30 11/19/23 Rx tabs torsemide 10 mg tablet 10 mg PO QAM #30 tabs 11/19/23 Rx Hospital Stay Data Consultations 11/12/23 17:18 ED Decision to Admit Stat 11/12/23 18:59 Consult Cardiology Routine 11/16/23 16:35 Consult Anesthesiology Routine Procedures Performed Operation Date: 11/17/23 07:15 Actual Procedures p Echo Transesophageal - Clifton Valerio DO s Cardioversion - Clifton Valerio DO Pending Results Patient Have Any Pending Studies at Discharge: No Discharge Instructions Given to Patient (Per Discharging Provider) You were admitted for ongoing chest pressure, fatigue, and palpitations, and found to be in atrial fibrillation with rapid rate. Your heart function was also extraordinarily low at 20%, known as heart failure with reduced ejection fraction. After multiple days of trying to manage your heart rates and symptoms with IV water pill and IV antiarrhythmics, it was a shared decision to undergo cardioversion on 11/17. The goal of cardioversion was to bridge you to your ablation coming up on 11/24/2023. You were also symptomatically treated for acute on chronic sinusitis and post- nasal drip. Here are the following medication changes: Please STOP the following: * Bumex 1 mg daily * HCTZ (hydrochlorothiazide) 12.5 mg daily * Singular(montelukast) 10mg daily * Atenolol 12.5mg daily Please START the following: * Amiodarone 200mg two times a day for rhythm control * Metoprolol XL 75 mg two times a day for rate control and heart failure management * Spironolactone 12.5mg daily for heart failure management * Torsemide 10mg daily, for water pill/fluid control * Loratadine 10mg daily for post nasal drip * Augmentin 1 tab two times a day, until pills complete, for sinusitis * Xanax 0.5 mg 1 tab at bedtime, as needed for sleep--please follow up with PCP if noticing ongoing need for bedtime Total Time Total Time Spent Total Time Spent (In Minutes): 45
[2023-11-19] MEDS: ALPRAZolam 0.25 MG TABLET PO PRN (14:09)
--- NOTE | 2023-11-19 20:02 | Electrocardiogram Report ---
Test Reason : Blood Pressure : / mmHG Vent. Rate : 062 BPM Atrial Rate : 062 BPM P-R Int : 170 ms QRS Dur : 094 ms QT Int : 472 ms P-R-T Axes : 071 -08 104 degrees QTc Int : 479 ms Normal sinus rhythm Prolonged QT Abnormal ECG When compared with ECG of 17-NOV-2023 08:03, T wave inversion now evident in Anterior leads QT has lengthened Confirmed by Jony John ([id number]) on 11/19/2023 8:02:22 PM Referred By: Sidney Saldivar Confirmed By:Dipak John
== END 2023-11-19 18:14 | disposition home or self-care (01) | DRG 308 ==
LOC: ED 13:40 → SUATTDRO 17:45 → 4W 17:45 → 1E 11-16 19:07 → 2S 11-19 08:02
DX: Z79.01 Long term (current) use of anticoagulants; I42.0 Dilated cardiomyopathy; Z88.1 Allergy status to other antibiotic agents; Z88.8 Allergy status to other drugs, medicaments and biological substances; Z79.899 Other long term (current) drug therapy; C83.30 Diffuse large B-cell lymphoma, unspecified site; I11.0 Hypertensive heart disease with heart failure; M79.7 Fibromyalgia; I50.23 Acute on chronic systolic (congestive) heart failure; F41.9 Anxiety disorder, unspecified; G47.33 Obstructive sleep apnea (adult) (pediatric); H70.10 Chronic mastoiditis, unspecified ear; Z91.041 Radiographic dye allergy status; I48.91 Unspecified atrial fibrillation

== ENCOUNTER 2024-09-26 13:29 | Inpatient (IN) ==
[2024-09-26] MEDS: dilTIAZem HCl 5 MG/ML 5 ML VIAL IV STA ×3 (14:04→20:53)
[2024-09-26] MEDS: dilTIAZem HCl 5 MG/ML 5 ML VIAL IV ONE (14:06)
[2024-09-26] MEDS: MAGNESIUM SULFATE / D5W 1 GM/100 ML BAG IV SCH (14:11)
--- NOTE | 2024-09-26 14:25 | Emergency Department Note ---
Impression & Plan Atrial fibrillation with rapid ventricular response, Hypoxia, Respiratory failure, NYHA class 3 heart failure with reduced ejection fraction ED Provider Note NAME: FELIX LAI AGE: 68 SEX: F : 1955 ARRIVES VIA: Walk-In INFORMANT: Patient, ED PROVIDER(S): Jayesh Garcia MD CHIEF COMPLAINT: Atrial fibrillation HPI: This is a 68-year-old female presenting for atrial fibrillation. Patient with history of persistent atrial fibrillation, no longer on anticoagulation. She states that she has had 6-7 episodes of extensive atrial fibrillation. She has had 2 previous ablations. Most recent one was in October 2023. Otherwise she has been in and out of A-fib for the past few weeks, usually lasting 1 day at max. This episode started on Thursday, 3 days ago. She has no significant shortness of breath, dyspnea, exertional, orthopnea. She reports no current chest pain. No nausea vomiting diarrhea. ROS: See above HPI for pertinent positives & negatives. A total of 10 systems reviewed and were otherwise negative. PAST MEDICAL HISTORY: See Below PAST SURGICAL HISTORY: See Below FAMILY HISTORY: See Below SOCIAL HISTORY: See Below HOME MEDICATIONS: See Below ALLERGIES: See Below VITALS: See Below PHYSICAL EXAMINATION: General: Mildly anxious appearing Head: Normocephalic and atraumatic Eyes: Normal inspection, extraocular muscles intact Ear, nose, throat: Normal external exam Neck: Normal range of motion Respiratory: lungs clear to auscultation bilaterally Cardiovascular: Irregularly irregular rate/rhythm, no murmur GI: soft, nontender, no guarding or rebound Extremities: nontender, moves all extremities Neuro: The patient awake and alert, appropriately conversive, no focal deficits, symmetric faces Skin: Warm, dry, and intact MEDICAL DECISION MAKING: This is a 68-year-old female sent for atrial fibrillation. Patient is not on anticoagulation at this time. She does have a history of CHF. Consider A-fib causing CHF at this time. She is now A-fib with rates between 150 and 175. Will give IV Cardizem due to previous adverse reactions with beta-blockers. -Patient blood pressure is 150s, not in current shock. -Initial the monitor patient does have some PVCs, occasionally 2-3 in a row, possible NSVT in addition to the A-fib with RVR. Will give magnesium IV, 2 g -Patient does note she is increasing her weight. Consider CHF more likely -Patient is downtrending from 150s down to 130s -Patient given repeat dose of IV Cardizem. Continues to remain around 130 with occasional rates in the 150s. Patient not controlled at this time. Will continue with drip at this time -Patient currently on diltiazem drip and continues to have heart rates between 130 and 150. -Patient's blood work does reveal signs of slight troponin elevation, likely from the A-fib. Otherwise blood work within normal limits -[facility] Differential diagnosis: Atrial fibrillation, CHF, pneumonia, PE, ACS Diagnostics interpreted by me: ECG: ECG independently interpreted by me with atrial fibrillation with RVR at a rate of 166, normal QRS, normal QTc, no ST segment elevations consistent with STEMI criteria Cardiac Monitoring: An order was placed for continuous cardiac monitoring. The monitor shows a rate of 137 with atrial fibrillation rhythm. Critical Care Note: I have personally spent 55 minutes of critical care time in the direct management of this patient. This includes bedside care, interpretation of diagnostic studies, and testing, discussion with consultants, patient, and family members, and other required patient management activities. This 55 minutes is in excess of all separately billable procedures. Past Med/Surg History Problem List (Updated 09/26/24 @ 16:32 by Jayesh Garcia MD) Cardiac left ventricular ejection fraction 10-20 percent NYHA class 3 heart failure with reduced ejection fraction (Acute) Sinus congestion (Acute) Dilated cardiomyopathy Fibromyalgia Diarrhea HFrEF (heart failure with reduced ejection fraction) Sleep apnea BIPAP (compliant) Depression Hyperlipidemia Hypertension WILL on CPAP Left knee DJD Status post total right knee replacement Atrial fibrillation (Chronic) History of cardioversion (Chronic) Sleep apnea (Chronic) History of hyperlipidemia (Chronic) Hypertension (Chronic 11/23/14) Atrial fibrillation with rapid ventricular response (Acute 11/23/14) Depressive disorder (Chronic) Osteoarthritis (Chronic) Chronic mastoiditis (Chronic) History of nasal septoplasty (Chronic) Status post tonsillectomy and adenoidectomy (Chronic) History of tympanostomy tube placement (Chronic) History of tympanoplasty (Chronic) History of mastoidectomy (Chronic) History of partial thyroidectomy (Chronic) Atrial fibrillation with rapid ventricular response (Acute) Hypoxia (Acute) Respiratory failure (Acute 02/16/15) Septic arthritis of knee, bilateral Medical History Fibromyalgia HFrEF (heart failure with reduced ejection fraction) WILL on CPAP Left knee DJD Obesity Encounter for pre-operative examination History of COVID-19 Dx 09/2021, symptoms resolved except residual taste/smell impairment Hypertension Osteoarthritis Depression Hyperlipidemia Cancer Lymphoma (2016) s/p treatment in [place], PCP monitors Sleep apnea BIPAP (compliant) Atrial fibrillation Follows with C/Dr. Medina Septic arthritis of knee, bilateral Surgical History History of tonsillectomy and adenoidectomy History of ear surgery LEFT X 2-RIGHT X 1-MASTOIDECTOMY/TYMPANOPLASTY History of sinus surgery History of section History of thyroidectomy History of esophagogastroduodenoscopy (EGD) History of colon resection 2015 FOR BLEEDING TUMOR History of colonoscopy History of cardioversion ~2014 Family History Other Hypertension Social History Smoking Status: Former smoker Second Hand Exposure: Yes (FATHER SMOKED); Do You Dip or Chew Tobacco: No; Hx Alcohol Use: No Hx Substance Use: No Preferred Language: Urdu Communication Ability: Effective 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 Beliefs That Will Affect Care: None marital status: Single Current Living Situation: Family Current Living Situation Comment: lives in double house with son current occupational status: disabled Feels Safe at Home: Yes Assistive Devices: None Allergies Allergies Allergy/AdvReac Type Severity Reaction Status Date / Time lisinopril Allergy Severe Throat Verified 09/26/24 14:21 tightness Iodinated Contrast Media Allergy Intermediate Rash Verified 09/26/24 14:21 citalopram Allergy Mild Rash Verified 09/26/24 14:21 Beta-Blockers AdvReac Intermediate Increase Verified 09/26/24 14:21 (Beta-Adrenergic Bloc of symptoms/conditions digoxin AdvReac Unknown "Did not Verified 09/26/24 14:21 work" Home Meds Home Medications Medication Instructions Recorded Confirmed ascorbic acid (vitamin C) 1,000 mg 1,000 mg PO QPM 07/24/22 09/26/24 tablet,extended release (Vitamin C ER) multivitamin 1 tab PO QPM 07/24/22 09/26/24 potassium chloride 10 mEq 10 meq PO QPM 07/24/22 09/26/24 tablet,extended release(part/cryst) (Klor-Con M) acetaminophen 500 mg capsule 1,000 mg PO TID PRN Pain 03/26/23 09/26/24 zinc gluconate 50 mg tablet 50 mg PO QPM 11/12/23 09/26/24 bumetanide 1 mg tablet 1 mg PO DAILY 09/26/24 09/26/24 Previous Rx's Medication Instructions Recorded alprazolam 0.5 mg tablet (Xanax) 0.5 mg PO QPM as needed for sleep 11/19/23 #14 tabs loratadine 10 mg tablet (Wal-itin) 10 mg PO QAM #30 tabs 11/19/23 spironolactone 25 mg tablet 12.5 mg (1/2 x 25 mg) PO DAILY #30 11/19/23 tabs Results & Data (ED) Vital Signs Vital Signs - 24 hr 09/26/24 13:40 09/26/24 13:55 09/26/24 13:58 Temperature 36.6 C Temperature Source Temporal Artery Scan Pulse Rate 95 H 158 H Pulse Rate [Apical] 159 H Respiratory Rate 18 21 Respiratory Effort / Characteristics Non-Labored Respiratory Depth Normal Blood Pressure 146/111 H Blood Pressure [Right Arm] 150/82 H Blood Pressure Mean 122 Blood Pressure Mean [Right Arm] 104 Blood Pressure Position [Right Arm] Lying Pulse Oximetry 97 91 Oxygen Delivery Method Room Air Room Air Oxygen Flow Rate Sepsis Recent Fever Within 48 Hours No Sepsis New/Unexplained Change in Mental Status N/A Sepsis Action Taken by Nursing No Action Required 09/26/24 14:10 09/26/24 14:13 09/26/24 14:19 Temperature Temperature Source Pulse Rate 154 H Pulse Rate [Apical] Respiratory Rate 23 Respiratory Effort / Characteristics Respiratory Depth Blood Pressure 147/99 H Blood Pressure [Right Arm] Blood Pressure Mean 115 Blood Pressure Mean [Right Arm] Blood Pressure Position [Right Arm] Pulse Oximetry 94 94 92 Oxygen Delivery Method Room Air Room Air Oxygen Flow Rate Sepsis Recent Fever Within 48 Hours Sepsis New/Unexplained Change in Mental Status Sepsis Action Taken by Nursing 09/26/24 14:38 09/26/24 14:38 09/26/24 14:45 Temperature Temperature Source Pulse Rate 131 H 136 H Pulse Rate [Apical] Respiratory Rate 23 21 Respiratory Effort / Characteristics Respiratory Depth Blood Pressure 125/96 125/96 135/109 H Blood Pressure [Right Arm] Blood Pressure Mean 110 110 119 Blood Pressure Mean [Right Arm] Blood Pressure Position [Right Arm] Pulse Oximetry 91 Oxygen Delivery Method Oxygen Flow Rate Sepsis Recent Fever Within 48 Hours Sepsis New/Unexplained Change in Mental Status Sepsis Action Taken by Nursing 09/26/24 15:00 09/26/24 15:01 Temperature Temperature Source Pulse Rate 135 H Pulse Rate [Apical] Respiratory Rate 23 Respiratory Effort / Characteristics Respiratory Depth Blood Pressure 108/87 Blood Pressure [Right Arm] Blood Pressure Mean 99 Blood Pressure Mean [Right Arm] Blood Pressure Position [Right Arm] Pulse Oximetry 94 89 L Oxygen Delivery Method Nasal Cannula Room Air Oxygen Flow Rate 2 Sepsis Recent Fever Within 48 Hours Sepsis New/Unexplained Change in Mental Status Sepsis Action Taken by Nursing Laboratory Data 09/26/24 14:07 09/26/24 15:26 Lab Results 09/26/24 09/26/24 Range/Units 14:07 15:26 WBC 9.83 (4.8-10.8) K/ul RBC 4.71 (4.20-5.40) M/uL Hgb 14.4 (12.0-16.0) g/dl Hct 42.9 (37.0-47.0) % MCV 91.1 (80.0-100.0) fL MCH 30.6 (25.0-34.0) pg MCHC 33.6 (32.0-36.0) g/dL RDW Std Deviation 45.7 (36.4-46.3) fL RDW Coeff of Stevan 13.7 (11.5-14.5) % Plt Count 263 (130-400) K/uL MPV 9.9 (9.4-12.4) fL Immature Gran % (Auto) 0.7 % Neut % (Auto) 72.1 % Lymph % (Auto) 16.5 % [place] % (Auto) 9.6 % Eos % (Auto) 0.7 % Baso % (Auto) 0.4 % Neut # (Auto) 7.09 H (1.40-6.50) K/uL Lymph # (Auto) 1.62 (1.20-3.40) K/uL [place] # (Auto) 0.94 H (0.11-0.59) K/uL Eos # (Auto) 0.07 (0.00-0.50) K/uL Baso # (Auto) 0.04 (0.00-0.20) K/uL Immature Gran # (Auto) 0.07 (0.01-0.20) K/uL PT 11.0 (9.0-12.0) Seconds INR 1.0 (0.9-1.1) APTT 26 (21-31) Seconds PTT Ratio 1.0 Sodium 139 (136-145) mmol/L Potassium TNP 3.7 Chloride 105 (98-107) mmol/L Carbon Dioxide 25 (21-32) mmol/L Anion Gap 9 (3-11) BUN 16 (6-23) mg/dl Creatinine 0.77 (0.6-1.2) mg/dl Est Cr Clr Drug Dosing 92.4 ml/min eGFR 83.45 BUN/Creatinine Ratio 20.8 H (10-20) Glucose 125 H (70-99(Fasting)) mg/dl Calcium 9.7 (8.6-10.3) mg/dl Total Bilirubin 1.0 (0.2-1.0) mg/dl AST TNP 60 H ALT 35 (7-52) U/L Alkaline Phosphatase 89 (34-104) U/L Troponin I High Sens 18.1 H (0-14) pg/ml Total Protein 7.6 (6.0-8.3) gm/dl Albumin 4.3 (3.4-5.0) gm/dl Globulin 3.3 (2.5-4.0) gm/dl Albumin/Globulin Ratio 1.3 (0.9-2) Administered Medications Diltiazem HCl 125 mg/ Dextrose 125 mls @ 5 mls/hr IV .Q24H [facility]; Protocol Stop: 10/26/24 15:29 Last Admin: 09/26/24 15:35 Dose: 5 mg/hr, 5 mls/hr Documented By: NRB Co-signed By: SHB Discontinued Medications Diltiazem HCl (Diltiazem Hcl 5 Mg/Ml 5 Ml Vial) Confirm Administered Dose 25 mg IV .STK-MED ONE Stop: 09/26/24 13:58 Last Admin: 09/26/24 14:06 Dose: Not Given Documented By: ESTELLA Diltiazem HCl (Diltiazem Hcl 5 Mg/Ml 5 Ml Vial) 10 mg IV NOW STA Stop: 09/26/24 14:00 Last Admin: 09/26/24 14:04 Dose: 10 mg Documented By: ESTELLA Co-signed By: BISI Diltiazem HCl (Diltiazem Hcl 5 Mg/Ml 5 Ml Vial) 10 mg IV NOW STA Stop: 09/26/24 14:26 Last Admin: 09/26/24 14:27 Dose: 10 mg Documented By: ESTELLA Co-signed By: CHAYITO Magnesium Sulfate/Dextrose (Magnesium Sulfate / D5w) 1 gm in 100 mls @ 200 mls/hr IV Q30M FERNANDA Stop: 09/26/24 14:59 Last Infusion: 09/26/24 15:19 Dose: Infused Documented By: Admin: 09/26/24 14:43 Dose: 200 mls/hr Documented By: Infusion: 09/26/24 14:41 Dose: Infused Documented By: Admin: 09/26/24 14:11 Dose: 200 mls/hr Documented By: ESTELLA Miscellaneous (Stat Iv Infusion Titration Per Protocol) 1 each N/A NOW STA Stop: 09/26/24 15:22 Last Admin: 09/26/24 15:38 Dose: Not Given Documented By: DANTE Imaging Data Radiologist's Impression: Chest X-Ray 09/26/24 13:39 XR chest 1V portable CLINICAL HISTORY: Chest pain, nonspecific COMPARISON STUDY: Chest radiograph November 12, 2023. FINDINGS: There is no pneumothorax or pleural effusion. Moderate cardiomegaly is unchanged. There is no evidence for pulmonary edema. No consolidation to suggest pneumonia. Apparent left basilar opacity is likely artifactual. IMPRESSION: No acute cardiopulmonary findings. Cardiomegaly. ACT 112: Negative or not required by law. Electronically signed by: Jose Francisco Bertrand M.D. 09/26/2024 2:33 PM Discharge Plan Visit Data Chief Complaint: Cardiac Assessment Stated Complaint: AFIB, SOB, HEART FLUTTERING ED Provider: Jayesh Garcia Discharge Problem: Atrial fibrillation with rapid ventricular response, Hypoxia, Respiratory failure, NYHA class 3 heart failure with reduced ejection fraction Forms Stand Alone Forms: [facility] Compology Prescriptions Prescriptions: No Action potassium chloride [Klor-Con M10] 10 mEq Tablet,Er Particles/Crystals 10 meq PO QPM Rx Instructions: PER PT "IF TAKE 2 BUMETANIDE TABS, THEN TAKE 2 KLOR-CON TABS". multivitamin Tablet 1 tab PO QPM Vitamin C 1,000 mg Tablet Extended Release 1,000 mg PO QPM acetaminophen 500 mg capsule 1,000 mg PO TID PRN (Reason: Pain) Rx Instructions: Take 3 times per day to lessen pain. zinc gluconate 50 mg Tablet 50 mg PO QPM loratadine [Wal-itin] 10 mg Tablet 10 mg PO QAM Qty: 30 0RF spironolactone 25 mg Tablet 12.5 mg PO DAILY Qty: 30 0RF alprazolam [Xanax] 0.5 mg Tablet 0.5 mg PO QPM Qty: 14 0RF bumetanide [Bumex] 1 mg Tablet 1 mg PO DAILY Referrals Referrals: Jenny Pressley MD [Primary Care Provider] -
[2024-09-26 14:27] LABS: Basophils # (auto) 0.04 K/uL (0.00-0.20); Basophils % (auto) 0.4 %; Eosinophils # (auto) 0.07 K/uL (0.00-0.50); Eosinophils % (auto) 0.7 %; Hematocrit (blood only) 42.9 % (37.0-47.0); Hemoglobin 14.4 g/dl (12.0-16.0); Immature Granulocytes # (auto) 0.07 K/uL (0.01-0.20); Immature Granulocytes % (auto) 0.7 %; Lymphocytes # (auto) 1.62 K/uL (1.20-3.40); Lymphocytes % (auto) 16.5 %; Mean Corpuscular Hemoglobin 30.6 pg (25.0-34.0); Mean Corpuscular Hgb Conc 33.6 g/dL (32.0-36.0); Mean Corpuscular Volume 91.1 fL (80.0-100.0); Mean Platelet Volume 9.9 fL (9.4-12.4); Monocytes # (auto) 0.94 K/uL (0.11-0.59); Monocytes % (auto) 9.6 %; Neutrophils # (auto) 7.09 K/uL (1.40-6.50); Neutrophils % (auto) 72.1 %; Platelet Count 263 K/uL (130-400); RDW Coefficient of Variation 13.7 % (11.5-14.5); RDW Standard Deviation 45.7 fL (36.4-46.3); Red Blood Count 4.71 M/uL (4.20-5.40); White Blood Count 9.83 K/ul (4.8-10.8)
--- NOTE | 2024-09-26 14:34 | XRay Report ---
XR chest 1V portable CLINICAL HISTORY: Chest pain, nonspecific COMPARISON STUDY: Chest radiograph November 12, 2023. FINDINGS: There is no pneumothorax or pleural effusion. Moderate cardiomegaly is unchanged. There is no evidence for pulmonary edema. No consolidation to suggest pneumonia. Apparent left basilar opacity is likely artifactual. IMPRESSION: No acute cardiopulmonary findings. Cardiomegaly. ACT 112: Negative or not required by law. Electronically signed by: Jose Francisco Bertrand M.D. 09/26/2024 2:33 PM
[2024-09-26 14:53] LABS: Partial Thromboplastin Time 26 Seconds (21-31)
[2024-09-26 14:56] LABS: Alanine Aminotransferase 35 U/L (7-52); Albumin Globulin Ratio 1.3 (0.9-2); Albumin Level 4.3 gm/dl (3.4-5.0); Alkaline Phosphatase 89 U/L (34-104); Anion Gap 9 (3-11); BUN Creatinine Ratio 20.8 (10-20); Blood Urea Nitrogen 16 mg/dl (6-23); Calcium 9.7 mg/dl (8.6-10.3); Carbon Dioxide 25 mmol/L (21-32); Chloride 105 mmol/L (98-107); Creatinine Clr Calc Pharmacy 92.4 ml/min; Globulin 3.3 gm/dl (2.5-4.0); Glucose 125 mg/dl (70-99(Fasting)); Sodium 139 mmol/L (136-145); Total Protein 7.6 gm/dl (6.0-8.3)
[2024-09-26 14:58] LABS: Troponin I High Sensitivity 18.1 pg/ml (0-14)
[2024-09-26] MEDS: dilTIAZem HCL 125 MG in DEXTROSE 5% 100 ML IV SCH (15:35)
[2024-09-26] MEDS: STAT IV Infusion **Titration per Protocol STA (15:38)
--- NOTE | 2024-09-26 15:45 | Electrocardiogram Report ---
Test Reason : Blood Pressure : */* mmHG Vent. Rate : 166 BPM Atrial Rate : * BPM P-R Int : * ms QRS Dur : 86 ms QT Int : 258 ms P-R-T Axes : * 36 144 degrees QTcB Int : 428 ms Atrial fibrillation with rapid ventricular response Septal infarct , age undetermined Abnormal ECG When compared with ECG of 19-Nov-2023 12:26, Atrial fibrillation has replaced Sinus rhythm Vent. rate has increased by 104 bpm Septal infarct is now Present T wave inversion no longer evident in Anterior leads Confirmed by Thanh Muse ([id number]) on 09/26/2024 3:44:52 PM Referred By: Confirmed By: Thanh Muse
[2024-09-26 15:58] LABS: Potassium 3.7 mmol/L (3.5-5.1)
[2024-09-26] MEDS ORDERED: METOPROLOL TARTRATE 1 MG/ML VIAL IV PRN (16:16)
[2024-09-26 16:38] LABS: Magnesium 2.7 mg/dl (1.7-2.4)
--- NOTE | 2024-09-26 16:48 | History & Physical Report ---
<Statement entered by Neo Belcher DO - 09/26/24 18:05> I have seen and examined the patient and have discussed the case with the provider above. I have reviewed the advanced practitioner's documentation, and I agree with, and take responsibility for that plan of care. Patient seen and examined while still in the ED. She denies any chest pain. Rates on telemetry monitoring improved, 110-130 Physical exam: Lungs: Clear to auscultation CV: S1-S2 irregular Reviewed rate control versus rhythm control with patient Discussed plan of care as outlined below Date of Service September 26, 2024 Assessment & Plan (1) Cardiac left ventricular ejection fraction 10-20 percent: (2) HFrEF (heart failure with reduced ejection fraction): (3) Sleep apnea: (4) Hyperlipidemia: (5) Hypertension: (6) Depression: (7) Hypertension: Plan Assessment and plan: WALLACE AF RVR: Initially started on Cardizem drip in the ER without much improvement Discussed with cardiology, will trial IV metoprolol 5 mg every 6 hours If no improvement, can give IV digoxin, starting with loading dosing Patient had 2 ablations in the past, most recent October 2023 IV heparin drip started in the ER, continue this, give 40 mEq K Check TSH, BNP pending, chest x-ray unremarkable Hx acute on chronic CHFEF 20% Hx dilated cardiomyopathy Continue home diuretics, Bumex, Aldactone, daily weights Appears euvolemic on exam, BNP pending Full code DVT prophylaxis: Heparin drip History of Present Illness Chief Complaint: Shortness of breath, racing heart Primary Care Provider: Jenny Pressley MD The patient is a 68-year-old female with a past medical history of rapid A-fib s/p 2 ablations, one 8 years ago, one in October 2023, acute on chronic CHFEF 20% 10/21/2023, dilated cardiomyopathy, HTN, chronic sinusitis/mastoiditis, LAYLA, diffuse large B-cell lymphoma, severe WILL on BiPAP who presents to the ED on 09/26/24 with complaints of shortness of breath that started 3 days ago. Patient was admitted to the hospital in October 2023 for a CRYSTAL and ablation due to rapid A-fib. At that time, the patient's EF was 20%. The patient was discharged at that time on metoprolol/amiodarone/Eliquis. Throughout this year, the patient remained in sinus rhythm and was titrated off of those medications. She was on metoprolol up until a few months ago. She complains of negative side effects including feeling her heart is racing. She has been off blood thinners for the past 6 months per the patient. She reports after her first ablation 8 years ago she remained in sinus rhythm for 7 years prior to this. She reports having a recent respiratory illness that she thinks may have triggered this and not getting much sleep. She also has severe sleep apnea on BiPAP that she reports being compliant with. On arrival to the ED, her heart rates were in the [id number]. On exam, the patient's heart rate spikes to the 160s with any movement. She was placed on a Cardizem drip originally with minimal improvement. Heart rates remained in the [id number]. She denies any chest pain. She denies any shortness of breath. Her chest x-ray was negative for anything acute. Her EKG verifies AF with RVR, troponin 18 Her blood work is unremarkable. The patient will be admitted for further management for rapid A-fib. She was started on a heparin drip in the ER. Allergies Allergy/AdvReac Type Severity Reaction Status Date / Time lisinopril Allergy Severe Throat Verified 09/26/24 14:21 tightness Iodinated Contrast Media Allergy Intermediate Rash Verified 09/26/24 14:21 citalopram Allergy Mild Rash Verified 09/26/24 14:21 Beta-Blockers AdvReac Intermediate Increase Verified 09/26/24 14:21 (Beta-Adrenergic Bloc of symptoms/conditions digoxin AdvReac Unknown "Did not Verified 09/26/24 14:21 work" Home Medications Medication Instructions Recorded Confirmed Type ascorbic acid (vitamin C) 1,000 mg 1,000 mg PO QPM 07/24/22 09/26/24 History tablet,extended release (Vitamin C ER) multivitamin 1 tab PO QPM 07/24/22 09/26/24 History potassium chloride 10 mEq 10 meq PO QPM 07/24/22 09/26/24 History tablet,extended release(part/cryst) (Klor-Con M) acetaminophen 500 mg capsule 1,000 mg PO TID PRN Pain 03/26/23 09/26/24 History zinc gluconate 50 mg tablet 50 mg PO QPM 11/12/23 09/26/24 History alprazolam 0.5 mg tablet (Xanax) 0.5 mg PO QPM as needed for sleep 11/19/23 09/26/24 Rx #14 tabs loratadine 10 mg tablet (Wal-itin) 10 mg PO QAM #30 tabs 11/19/23 09/26/24 Rx spironolactone 25 mg tablet 12.5 mg (1/2 x 25 mg) PO DAILY #30 11/19/23 09/26/24 Rx tabs bumetanide 1 mg tablet 1 mg PO DAILY 09/26/24 09/26/24 History Past Med/Surg History Problem List (Updated 09/26/24 @ 16:32 by Jayesh Garcia MD) Cardiac left ventricular ejection fraction 10-20 percent NYHA class 3 heart failure with reduced ejection fraction (Acute) Sinus congestion (Acute) Dilated cardiomyopathy Fibromyalgia Diarrhea HFrEF (heart failure with reduced ejection fraction) Sleep apnea BIPAP (compliant) Depression Hyperlipidemia Hypertension WILL on CPAP Left knee DJD Status post total right knee replacement Atrial fibrillation (Chronic) History of cardioversion (Chronic) Sleep apnea (Chronic) History of hyperlipidemia (Chronic) Hypertension (Chronic 11/23/14) Atrial fibrillation with rapid ventricular response (Acute 11/23/14) Depressive disorder (Chronic) Osteoarthritis (Chronic) Chronic mastoiditis (Chronic) History of nasal septoplasty (Chronic) Status post tonsillectomy and adenoidectomy (Chronic) History of tympanostomy tube placement (Chronic) History of tympanoplasty (Chronic) History of mastoidectomy (Chronic) History of partial thyroidectomy (Chronic) Atrial fibrillation with rapid ventricular response (Acute) Hypoxia (Acute) Respiratory failure (Acute 12/11/14) Septic arthritis of knee, bilateral Medical History Fibromyalgia HFrEF (heart failure with reduced ejection fraction) WILL on CPAP Left knee DJD Obesity Encounter for pre-operative examination History of COVID-19 Dx 09/2021, symptoms resolved except residual taste/smell impairment Hypertension Osteoarthritis Depression Hyperlipidemia Cancer Lymphoma (2016) s/p treatment in [place], PCP monitors Sleep apnea BIPAP (compliant) Atrial fibrillation Follows with C/Dr. Medina Septic arthritis of knee, bilateral Surgical History History of tonsillectomy and adenoidectomy History of ear surgery LEFT X 2-RIGHT X 1-MASTOIDECTOMY/TYMPANOPLASTY History of sinus surgery History of section History of thyroidectomy History of esophagogastroduodenoscopy (EGD) History of colon resection 2016 FOR BLEEDING TUMOR History of colonoscopy History of cardioversion ~2014 Family History Other Hypertension Social History Smoking Status: Former smoker Second Hand Exposure: Yes (FATHER SMOKED); Do You Dip or Chew Tobacco: No; Hx Alcohol Use: No Hx Substance Use: No Preferred Language: Slovak Communication Ability: Effective 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 Beliefs That Will Affect Care: None marital status: Single Current Living Situation: Family Current Living Situation Comment: lives in double house with son current occupational status: disabled Feels Safe at Home: Yes Assistive Devices: None Review of Systems Review of Systems: All systems reviewed & are unremarkable except as noted in HPI & below Physical Exam Constitutional: WD/WN, vitals as above Eyes: PERRL, conjunctivae normal, anicteric sclerae ENMT: external ear and nose normal, oropharynx normal Neck: trachea midline, no thyromegaly Respiratory: normal respiratory effort, lungs clear to auscultation Cardiovascular: RRR, no murmur, no edema Rate/Rhythm: + irregularly irregular (Rapid A-fib) Gastrointestinal (Abdomen): normal bowel sounds, soft, nontender, no hepatosplenomegaly Musculoskeletal: no cyanosis or clubbing, extremities motor strength 5/5 Skin: no rashes, warm and dry Neurologic: PERRL, EOMI, accommodation nl, no face palsy, no dysarthria Psychiatric: A+Ox3, euthymic affect Lymphatic: no cervical or axillary lymphadenopathy Results & Data Results & Data Vital Signs (Past 12 Hours) Vital Signs Temp Pulse Pulse Resp BP BP Pulse Ox 09/26/24 16:30 135 H 11 L 140/106 H 92 09/26/24 16:12 137 H 32 H 141/114 H 93 09/26/24 16:03 130 H 18 150/116 H 95 09/26/24 15:45 149/103 H 09/26/24 15:33 145 H 36 H 117/82 93 09/26/24 15:15 136 H 20 125/94 92 09/26/24 15:01 135 H 23 108/87 89 L 09/26/24 15:00 94 09/26/24 14:45 136 H 21 135/109 H 91 09/26/24 14:38 125/96 09/26/24 14:38 131 H 23 125/96 09/26/24 14:19 154 H 23 147/99 H 92 09/26/24 14:13 94 09/26/24 14:10 94 09/26/24 13:58 159 H 21 150/82 H 91 09/26/24 13:55 158 H 09/26/24 13:40 36.6 C 95 H 18 146/111 H 97 O2 Del Method O2 Flow Rate 09/26/24 16:30 09/26/24 16:12 09/26/24 16:03 09/26/24 15:45 09/26/24 15:33 09/26/24 15:15 Nasal Cannula 2 09/26/24 15:01 Room Air 09/26/24 15:00 Nasal Cannula 2 09/26/24 14:45 09/26/24 14:38 09/26/24 14:38 09/26/24 14:19 09/26/24 14:13 Room Air 09/26/24 14:10 Room Air 09/26/24 13:58 Room Air 09/26/24 13:55 09/26/24 13:40 Room Air Diagnostic Findings Laboratory Results WBC 9.83 K/ul (4.8-10.8) 09/26/24 14:07 RBC 4.71 M/uL (4.20-5.40) 09/26/24 14:07 Hgb 14.4 g/dl (12.0-16.0) 09/26/24 14:07 Hct 42.9 % (37.0-47.0) 09/26/24 14:07 MCV 91.1 fL (80.0-100.0) 09/26/24 14:07 MCH 30.6 pg (25.0-34.0) 09/26/24 14:07 MCHC 33.6 g/dL (32.0-36.0) 09/26/24 14:07 RDW Std Deviation 45.7 fL (36.4-46.3) 09/26/24 14:07 RDW Coeff of Stevan 13.7 % (11.5-14.5) 09/26/24 14:07 Plt Count 263 K/uL (130-400) 09/26/24 14:07 MPV 9.9 fL (9.4-12.4) 09/26/24 14:07 Immature Gran % (Auto) 0.7 % 09/26/24 14:07 Neut % (Auto) 72.1 % 09/26/24 14:07 Lymph % (Auto) 16.5 % 09/26/24 14:07 [place] % (Auto) 9.6 % 09/26/24 14:07 Eos % (Auto) 0.7 % 09/26/24 14:07 Baso % (Auto) 0.4 % 09/26/24 14:07 Neut # (Auto) 7.09 K/uL (1.40-6.50) H 09/26/24 14:07 Lymph # (Auto) 1.62 K/uL (1.20-3.40) 09/26/24 14:07 [place] # (Auto) 0.94 K/uL (0.11-0.59) H 09/26/24 14:07 Eos # (Auto) 0.07 K/uL (0.00-0.50) 09/26/24 14:07 Baso # (Auto) 0.04 K/uL (0.00-0.20) 09/26/24 14:07 Immature Gran # (Auto) 0.07 K/uL (0.01-0.20) 09/26/24 14:07 PT 11.0 Seconds (9.0-12.0) 09/26/24 14:07 INR 1.0 (0.9-1.1) 09/26/24 14:07 APTT 26 Seconds (21-31) 09/26/24 14:07 PTT Ratio 1.0 09/26/24 14:07 Sodium 139 mmol/L (136-145) 09/26/24 14:07 Potassium 3.7 mmol/L (3.5-5.1) 09/26/24 15:26 Chloride 105 mmol/L (98-107) 09/26/24 14:07 Carbon Dioxide 25 mmol/L (21-32) 09/26/24 14:07 Anion Gap 9 (3-11) 09/26/24 14:07 BUN 16 mg/dl (6-23) 09/26/24 14:07 Creatinine 0.77 mg/dl (0.6-1.2) 09/26/24 14:07 Est Cr Clr Drug Dosing 92.4 ml/min 09/26/24 14:07 eGFR 83.45 09/26/24 14:07 BUN/Creatinine Ratio 20.8 (10-20) H 09/26/24 14:07 Glucose 125 mg/dl (70-99(Fasting)) H 09/26/24 14:07 Calcium 9.7 mg/dl (8.6-10.3) 09/26/24 14:07 Magnesium 2.7 mg/dl (1.7-2.4) H 09/26/24 15:26 Total Bilirubin 1.0 mg/dl (0.2-1.0) 09/26/24 14:07 AST 60 U/L (13-39) H 09/26/24 15:26 ALT 35 U/L (7-52) 09/26/24 14:07 Alkaline Phosphatase 89 U/L (34-104) 09/26/24 14:07 Troponin I High Sens 18.1 pg/ml (0-14) H 09/26/24 14:07 Total Protein 7.6 gm/dl (6.0-8.3) 09/26/24 14:07 Albumin 4.3 gm/dl (3.4-5.0) 09/26/24 14:07 Globulin 3.3 gm/dl (2.5-4.0) 09/26/24 14:07 Albumin/Globulin Ratio 1.3 (0.9-2) 09/26/24 14:07 Impressions Chest X-Ray 09/26/24 13:39 XR chest 1V portable CLINICAL HISTORY: Chest pain, nonspecific COMPARISON STUDY: Chest radiograph November 12, 2023. FINDINGS: There is no pneumothorax or pleural effusion. Moderate cardiomegaly is unchanged. There is no evidence for pulmonary edema. No consolidation to suggest pneumonia. Apparent left basilar opacity is likely artifactual. IMPRESSION: No acute cardiopulmonary findings. Cardiomegaly. ACT 112: Negative or not required by law. Electronically signed by: Jose Francisco Bertrand M.D. 09/26/2024 2:33 PM (5) Hypertension Hypertension type: primary hypertension Qualified Code(s): I10 - Essential (primary) hypertension
[2024-09-26] MEDS: BUMETANIDE 1 MG TAB PO STA (17:12)
[2024-09-26] MEDS: POTASSIUM CHLORIDE CRTAB 20 MEQ TABCR PO STA (17:13)
[2024-09-26] MEDS: METOPROLOL TARTRATE 1 MG/ML VIAL IV STA (17:15)
[2024-09-26] MEDS ORDERED: HEPARIN SODIUM/DEXTROSE 25,000 UNITS/500 ML BAG IV SCH (18:35)
[2024-09-26] MEDS ORDERED: Heparin IV Adult Wt-Based Standard *NO* INITIAL Bolus Protocol IV STA (18:35)
[2024-09-26] MEDS ORDERED: ACETAMINOPHEN 325 MG TAB PO PRN (18:35)
[2024-09-26] MEDS: HEPARIN SODIUM/DEXTROSE 25,000 UNITS/500 ML BAG IV SCH (18:36)
[2024-09-26] MEDS: Heparin IV Adult Wt-Based Standard *NO* INITIAL Bolus Protocol IV STA (18:39)
[2024-09-26 19:01] LABS: Thyroid Stimulating Hormone 1.904 uIu/ml (0.300-4.500)
[2024-09-26] MEDS: DIGOXIN 500 MCG in SYRINGE 8 ML IV STA (20:53)
[2024-09-26] MEDS: POTASSIUM CHLORIDE 10 MEQ TABCR PO SCH (21:14)
[2024-09-26] MEDS: ASCORBIC ACID 500 MG TAB PO SCH (21:15)
[2024-09-26] MEDS: ACETAMINOPHEN 1,000 MG/100 ML VIAL IV STA (21:32)
[2024-09-26 22:10] LABS: Appearance Urine Clear (Clear); Bacteria Urine Automated None Seen (None Seen); Bilirubin Urine Negative (Negative); Blood Urine Negative (Negative); Cast Urine Automated 0-2 /lpf (0-2); Color Urine Yellow; Epithelial Cell Urine Auto 0-2 /hpf (0-2); Glucose Urine UA Negative (Negative); Ketones Urine Negative (Negative); Leukocyte Esterase Urine Trace (Negative); Nitrite Urine Negative (Negative); Protein Urine Negative (Negative); RBC Urine Automated 0-2 /hpf (0-2); Specific Gravity Urine 1.007 (1.000-1.030); Urobilinogen Urine Negative (Negative); WBC Urine Automated 0-5 /hpf (0-5)
[2024-09-26] MEDS: METOPROLOL TARTRATE 1 MG/ML VIAL IV SCH (23:11)
[2024-09-27 01:47] LABS: ANTI-Xa, UFH(UnfractionatedHep 0.31 IU/ml (0.3-0.7)
[2024-09-27] MEDS: DIGOXIN 250 MCG in SYRINGE 9 ML IV ONE (02:07)
[2024-09-27 07:57] LABS: Basophils # (auto) 0.04 K/uL (0.00-0.20); Basophils % (auto) 0.5 %; Eosinophils # (auto) 0.16 K/uL (0.00-0.50); Eosinophils % (auto) 1.8 %; Hematocrit (blood only) 42.5 % (37.0-47.0); Hemoglobin 14.3 g/dl (12.0-16.0); Immature Granulocytes # (auto) 0.05 K/uL (0.01-0.20); Immature Granulocytes % (auto) 0.6 %; Lymphocytes # (auto) 1.92 K/uL (1.20-3.40); Lymphocytes % (auto) 21.6 %; Mean Corpuscular Hemoglobin 30.7 pg (25.0-34.0); Mean Corpuscular Hgb Conc 33.6 g/dL (32.0-36.0); Mean Corpuscular Volume 91.2 fL (80.0-100.0); Mean Platelet Volume 9.9 fL (9.4-12.4); Monocytes # (auto) 0.96 K/uL (0.11-0.59); Monocytes % (auto) 10.8 %; Neutrophils # (auto) 5.75 K/uL (1.40-6.50); Neutrophils % (auto) 64.7 %; Platelet Count 226 K/uL (130-400); RDW Coefficient of Variation 13.6 % (11.5-14.5); RDW Standard Deviation 45.5 fL (36.4-46.3); Red Blood Count 4.66 M/uL (4.20-5.40); White Blood Count 8.88 K/ul (4.8-10.8)
[2024-09-27 08:14] LABS: Albumin Globulin Ratio 1.2 (0.9-2); Albumin Level 3.9 gm/dl (3.4-5.0); BUN Creatinine Ratio 19.5 (10-20); Calcium 9.1 mg/dl (8.6-10.3); Creatinine Clr Calc Pharmacy 90.9 ml/min; Globulin 3.2 gm/dl (2.5-4.0); Potassium 3.7 mmol/L (3.5-5.1); Total Protein 7.1 gm/dl (6.0-8.3)
[2024-09-27] MEDS: BUMETANIDE 1 MG TAB PO SCH (08:46)
[2024-09-27] MEDS: LORATADINE 10 MG TAB PO SCH (08:46)
[2024-09-27] MEDS: SPIRONOLACTONE 12.5 MG TAB PO SCH (08:46)
[2024-09-27] MEDS: METOPROLOL TARTRATE 1 MG/ML VIAL IV PRN (08:48)
--- NOTE | 2024-09-27 08:50 | Cardiology Consultation ---
Date of Consultation September 27, 2024 Assessment & Plan (1) Atrial fibrillation with rapid ventricular response: (2) HFrEF (heart failure with reduced ejection fraction): Plan Assessment: 68 year old female with complex cardiac history including paroxysmal A-fib s/p 2 ablations presents with A-fib with RVR. Cardiology services requested for assessment/recommendations. Plan: Case has been discussed with Dr. Jones. Further recommendations regarding plan of care as per his assessment. I spent a total of 40 minutes on the date of service in preparation, delivery, documentation of the care provided to the patient excluding any time spent in the performance of separately billed services. PAIGE [facility] Cardiology [facility] Supervising Physician Co-Signing Physician Notes Attending Staff: Pt seen and evaluated with [facility] staff Concur with evaluation and plans 68 yo woman presenting with palpitations Dx: Afib with RVR K+ 3.7 Mag++ 2.0 TSH - 1.9 BNP 704 [id number] Afib + RVR - ventricular 160-170 Rx with Cardizem Cardizem was discontinued - Transitioned to Beta Blockers + Digoxin ECHO - 09-27-2024 LV function severely reduced LVEF 25-30% LV moderately dilated LA severely dilated RA moderately dilated RV systolic function - reduced AI - mild MR - mild to moderate TR - mild PASP 40 mmHg Dilated IVC Med Hx: * Cardiomyopathy * HFRF * LVEF 20% * PAF * S/P Ablations (2023 @ [facility]) * HTN * Hyperlipidemia * WILL on BiPaP * Diffuse large B-Cell Lymphoma * GI Bleeding * Gout * Dilated Ascending Aorta Plans: * Afib - RVR * STOP Lopressor 50 mg po BID + Lopressor 5 mg IV Q6hrs * Start Toprol 75 mg po BID * Digoxin - 0.5 + 0.250 (two doses) * START Digoxin 0.125 mcg po per day * Diuresing * STOP Bumex 1 mg po daily * Start Lasix 100 mg IV x 1 * Increase Aldactone to 25 mg po per say * K+ goal 4.5-5 * Mag goal >2 * Plans for CRYSTAL/Cardioversion * NPO past MN * Start afterload reduction once we get rate controlled - patient had "throat swelling with GO" (May use Hydral/nitrates) * Patient had thyroid dysfunction with Amiodarone + allopecia * Plans for EP evaluation- repeat ablation. * Consider Jardiance on 09/28/2024 * 62 min spent addressing challenges, educating and advancing daily plan of care Herbert Jones History of Present Illness Reason for Consultation: Rapid A-Fib Requesting Physician: Thomas hospitalist Attending Physician: Percy Ruiz MD History of Present Illness HPI: Patient is a 68 year old female with PMHx significant for known paroxysmal Atrial fibrillation (with multiple drug intolerance/adverse reactions/request to avoid), s/p Ablation at [facility] in 2014 and again Oct 2023, Chronic systolic HF, Tachycardia induced cardiomyopathy in September 2023, HTN, dyslipidemia, Diffuse large B-Cell lymphoma, WILL on CPAP, Chronic sinusitis, LAYLA, gout, and prior GI bleeds that presented to the ER with palpitations. She was found to be in Atrial fibrillation with RVR rates 160-180's. Initially placed on a Cardizem gtt. Cardiology was contacted and recommended trailing IV metoprolol Q 6 H, with consideration for IV Dig. Past medical history: 1. Chronic systolic CHF 2. Nonischemic/tachycardic induced cardiomyopathy in the setting of Afib RVR a. LVEF < 20% on echo from 09/2023; was 45% in 11/2014 3. Paroxysmal atrial fibrillation 4. Status post CRYSTAL guided DCCV 11/17/2023 due to hospitalization for Afib and CHF a. History of PVI ablation 12/18/2014 with redo PVI ablation at [facility] with Dr. Saldivar 11/24/2023 i. [id number] score of 4 (age, female, HTN, CHF) 5. Hypertension with history of hypotension 6. Hyperlipidemia 7. Diffuse large B-cell lymphoma 8. WILL on BiPAP 9. Iron-deficiency anemia 10. History of GI bleed 11. Gout 12. Mildly dilated ascending aorta measuring 4.1 cm Heparin gtt started. Initial EKG Afib with RVR, Prior septal infarct suggested rate 166bpm Repeat EKG A-fib with RVR, Rate 121. No evidence of prior septal infarct. ST depression in her anterior leads. Chest xray 09/26/24 IMPRESSION: No acute cardiopulmonary findings. Cardiomegaly. BNP 704 Troponin 18.1 Echo pending Allergies Allergy/AdvReac Type Severity Reaction Status Date / Time lisinopril Allergy Severe Throat Verified 09/26/24 14:21 tightness Iodinated Contrast Media Allergy Intermediate Rash Verified 09/26/24 14:21 citalopram Allergy Mild Rash Verified 09/26/24 14:21 Beta-Blockers AdvReac Intermediate Increase Verified 09/26/24 14:21 (Beta-Adrenergic Bloc of symptoms/conditions digoxin AdvReac Unknown "Did not Verified 09/26/24 14:21 work" Home Medications Medication Instructions Recorded Confirmed Type ascorbic acid (vitamin C) 1,000 mg 1,000 mg PO QPM 07/24/22 09/26/24 History tablet,extended release (Vitamin C ER) multivitamin 1 tab PO QPM 07/24/22 09/26/24 History potassium chloride 10 mEq 10 meq PO QPM 07/24/22 09/26/24 History tablet,extended release(part/cryst) (Klor-Con M) acetaminophen 500 mg capsule 1,000 mg PO TID PRN Pain 03/26/23 09/26/24 History zinc gluconate 50 mg tablet 50 mg PO QPM 11/12/23 09/26/24 History alprazolam 0.5 mg tablet (Xanax) 0.5 mg PO QPM as needed for sleep 11/19/23 09/26/24 Rx #14 tabs loratadine 10 mg tablet (Wal-itin) 10 mg PO QAM #30 tabs 11/19/23 09/26/24 Rx spironolactone 25 mg tablet 12.5 mg (1/2 x 25 mg) PO DAILY #30 11/19/23 09/26/24 Rx tabs bumetanide 1 mg tablet 1 mg PO DAILY 09/26/24 09/26/24 History Patient History Medical History Fibromyalgia HFrEF (heart failure with reduced ejection fraction) WILL on CPAP Left knee DJD Obesity Encounter for pre-operative examination History of COVID-19 Dx 09/2021, symptoms resolved except residual taste/smell impairment Hypertension Osteoarthritis Depression Hyperlipidemia Cancer Lymphoma (2016) s/p treatment in [place], PCP monitors Sleep apnea BIPAP (compliant) Atrial fibrillation Follows with C/Dr. Medina Septic arthritis of knee, bilateral Surgical History History of tonsillectomy and adenoidectomy History of ear surgery LEFT X 2-RIGHT X 1-MASTOIDECTOMY/TYMPANOPLASTY History of sinus surgery History of section History of thyroidectomy History of esophagogastroduodenoscopy (EGD) History of colon resection 2016 FOR BLEEDING TUMOR History of colonoscopy History of cardioversion ~2014 Family History Other Hypertension Social History Smoking Status: Never smoker Second Hand Exposure: Yes (FATHER SMOKED); Do You Dip or Chew Tobacco: No; Hx Alcohol Use: No Hx Substance Use: No Preferred Language: Divehi Communication Ability: Effective Training Lead Required: No Beliefs That Will Affect Care: None marital status: Single Current Living Situation: Family Current Living Situation Comment: lives in double house with son current occupational status: disabled Feels Safe at Home: Yes Safety Concerns: Feels Safe At This Time Assistive Devices: BiPap and Glasses Review of Systems Review of Systems: All systems reviewed & are unremarkable except as noted in HPI & below Physical Exam Physical Exam: As documented by Dr. Jones Obese JVP 18 cmH20 S1S2 2/6 systolic murmur CTA B No C/C/E Warm and perfusing Results & Data Vital Signs (Past 12 Hours) Vital Signs Temp Pulse Pulse Resp BP BP BP 09/27/24 07:39 36.5 C 86 32 H 131/69 09/27/24 07:23 118 H 09/27/24 07:09 36.6 C 115 H 17 121/81 09/27/24 06:21 117 H 137/89 09/27/24 06:06 149 H 147/91 H 09/27/24 02:48 25 H 09/27/24 02:07 118 H 09/27/24 02:04 36.4 C L 108 H 22 155/87 H 09/26/24 23:48 09/26/24 23:39 103 H 26 H 09/26/24 23:26 138 H 137/89 09/26/24 23:11 155 H 129/87 09/26/24 22:37 36.6 C 137 H 18 148/87 H 09/26/24 22:01 141 H 09/26/24 20:40 129/87 Pulse Ox O2 Del Method 09/27/24 07:39 91 Room Air 09/27/24 07:23 09/27/24 07:09 90 Room Air 09/27/24 06:21 09/27/24 06:06 09/27/24 02:48 91 09/27/24 02:07 09/27/24 02:04 96 Room Air 09/26/24 23:48 CPAP 09/26/24 23:39 93 09/26/24 23:26 09/26/24 23:11 09/26/24 22:37 93 Room Air 09/26/24 22:01 09/26/24 20:40 Laboratory Results Cardiac Enzymes 09/26/24 09/26/24 09/27/24 Range/Units 14:07 15:26 07:01 AST TNP 60 H 35 Troponin I High Sens 18.1 H (0-14) pg/ml B-Natriuretic Peptide 704 H (0-100) pg/ml Coagulation 09/26/24 Range/Units 14:07 PT 11.0 (9.0-12.0) Seconds APTT 26 (21-31) Seconds B-Natriuretic Peptide 704 H (0-100) pg/ml CBC 09/26/24 09/27/24 Range/Units 14:07 07:01 WBC 9.83 8.88 (4.8-10.8) K/ul RBC 4.71 4.66 (4.20-5.40) M/uL Hgb 14.4 14.3 (12.0-16.0) g/dl Hct 42.9 42.5 (37.0-47.0) % Plt Count 263 226 (130-400) K/uL Neut # (Auto) 7.09 H 5.75 (1.40-6.50) K/uL Lymph # (Auto) 1.62 1.92 (1.20-3.40) K/uL [place] # (Auto) 0.94 H 0.96 H (0.11-0.59) K/uL Eos # (Auto) 0.07 0.16 (0.00-0.50) K/uL Baso # (Auto) 0.04 0.04 (0.00-0.20) K/uL Comprehensive Metabolic Panel 09/26/24 09/26/24 09/27/24 Range/Units 14:07 15:26 07:01 Sodium 139 139 (136-145) mmol/L Potassium TNP 3.7 3.7 Chloride 105 104 (98-107) mmol/L Carbon Dioxide 25 25 (21-32) mmol/L BUN 16 15 (6-23) mg/dl Creatinine 0.77 0.77 (0.6-1.2) mg/dl Glucose 125 H 127 H (70-99(Fasting)) mg/dl Calcium 9.7 9.1 (8.6-10.3) mg/dl AST TNP 60 H 35 ALT 35 37 (7-52) U/L Alkaline Phosphatase 89 85 (34-104) U/L Total Protein 7.6 7.1 (6.0-8.3) gm/dl Albumin 4.3 3.9 (3.4-5.0) gm/dl Intake and Output 09/26/24 09/27/24 09/27/24 22:59 06:59 14:59 Intake Total 929.500 / 1546.500 517 / 1546.500 Output Total 700 / 1300 600 / 1300 Balance 229.500 / 246.500 -83 / 246.500 Intake: IV 109.500 / 526.500 317 / 526.500 Acetaminophen 1,000 mg In 100 100 / 100 ml @ 400 mls/hr IV [facility] Rx#: [id number] Heparin Sodium/Dextrose 25,000 217 / 217 units In 500 ml @ 1,500 UNITS/ HR 30 mls/hr IV .[id number] [facility] Rx #:[id number] Magnesium Sulfate / D5w 1 gm In 100 / 200 100 ml @ 200 mls/hr IV Q30M [facility] Rx#:[id number] dilTIAZem HCL 125 mg In 9.500 / 9.500 Dextrose 5% 100 ml @ 10 MG/HR 10 mls/hr IV .[id number] [facility] Rx#: [id number] Oral 820 / 1020 200 / 1020 Output: Urine 700 / 1300 600 / 1300 Other: # Unmeasured Voids 2 Weight 121 kg 119.7 kg Weight Measurement Method Built in [facility] Standing Scale
[2024-09-27] MEDS: METOPROLOL TARTRATE 50 MG TAB PO SCH (09:36)
--- OUTSIDE RECORDS SUMMARY | 2024-09-27 11:08 | External Medical Summary ---
Author Name Unknown Address Unknown Organization K01:[facility] [place] [address] [facility] [address] Laboratory Report Ordering Provider Test Date Status EDIS SON 09/19/2024 10:10:26 Final Observation Date Value Abnormality Reference (Units ) Status Triglyceride 09/19/2024 10:10:26 177 Above high normal <=174 (mg/dL) Final Triglyceride Reference Range s (mg/dL):
<150 Acceptable
150-174 Borderline high
175-499 High
>=500 Very high Cholesterol 09/19/2024 10:10:26 229 Above high normal <200 (mg/dL) Final Total Cholesterol Reference Ranges (mg/dL):
<200 Desirable
200-239 Borderline high
>=240 High HDL 09/19/2024 10:10:26 50 >49 (mg/dL ) Final HDL Cholesterol Reference Ra nges (mg/dL):
>=60 High (Desirable)
<50 Low (Undesirable) For Females
<40 Low (Undesirable) For Males NON-HDL CHOLESTEROL 09/19/2024 10:10:26 179 Above high normal <=159 (mg/dL) Final Non-HDL Cholesterol Referenc e Range (mg/dL):
<100 Target level for high risk ASCVD patient
<130 Optimal for general population
130-159 Near optimal for general population
160-189 Borderline High
190-219 High
>=220 Very High LDL, (calculated) 09/19/2024 10:10:26 144 Above high n ormal <=129 (mg/dL) Final LDL Cholesterol Reference Ra nges (mg/dL):
<70 Target level for high risk ASCVD patient
<100 Optimal for general population
100-129 Near optimal for general population
130-159 Borderline high
160-189 High
>=190 Very high Performing Location [facility] [place] [address] [place], [place] [address]
--- OUTSIDE RECORDS SUMMARY | 2024-09-27 11:08 | External Medical Summary ---
Author Name Unknown Address Unknown Organization [id number]:[facility] - [address] [facility] [address] Laboratory Report Ordering Provider Test Date Status JOSIAS LEY 09/19/2024 10:10:26 Final Observation Date Value Abnormality Reference (Units ) Status Magnesium 09/19/2024 10:10:26 2.3 1.5-2.6 (m g/dL) Final Performing Location [facility] - [address] [facility] [address]
--- OUTSIDE RECORDS SUMMARY | 2024-09-27 11:08 | External Medical Summary ---
Author Name Unknown Address Unknown Organization K01:LAB[facility]ATORY [place] [address] [facility] [address] Laboratory Report Ordering Provider Test Date Status ILEANA URBAN 09/19/2024 10:10:26 Final Cutoff Concentrations:
Drug Level
Amphetamines 500 ng/mL
Benzodiazepines 100 ng/mL
Cannabinoids 50 ng/mL
Cocaine Metabolite 150 ng/mL
Fentanyl 1 ng/mL
Hydrocodone / Hydromorphone 300 ng/mL
Methadone Metabolite 100 ng/mL
Morphine / Codeine 300 ng/mL
Oxycodone / Oxymorphone 100 ng/mL

Screening results are presumptive and can only be used for medical purposes. Positive screening results are reflexed to confirmatory testing. Observation Date Value Abnormality Reference (Units ) Status Amphetamines, Urine screen 09/19/2024 10:10:26 Negative Negative Final Benzodiazepines, Urine screen 09/19/2024 10:10:26 Negative Negative Final Cannabinoids, Urine screen 09/19/2024 10:10:26 Negative Negative Final Cocaine Metabolite, Urine screen 09/19/2024 10:10:26 Negative Negative Final fentaNYL [Presence] in Urine by Screen method 09/19/2024 10:10:26 Negative Negative Final HYDROcodone [Presence] in Urine by Screen method 09/19/2024 10:10:26 Negative Negative Final 9-Ivsifyffti-4,5-Dimeth yl-3,3-Diphenylpyrrolid ine (EDDP) [Presence] in Urine 09/19/2024 10:10:26 Negative Negative Final Opiates, Urine screen 09/19/2024 10:10:26 Negative Negative Final oxyCODONE [Presence] in Urine by Screen method 09/19/2024 10:10:26 Negative Negative Final Performing Location LABORATORY [facility] - [address] [facility] [address]
--- OUTSIDE RECORDS SUMMARY | 2024-09-27 11:08 | External Medical Summary ---
Author Name Unknown Address Unknown Organization [id number]:[facility]ATORY [facility] [facility] [address] Laboratory Report Ordering Provider Test Date Status ILEANA URBAN 09/19/2024 10:10:26 Final Observation Date Value Abnormality Reference (Units ) Status WBC, Total 09/19/2024 10:10:26 6.75 4.00-10.80 (K/uL) Final RBC 09/19/2024 10:10:26 4.80 3.85-5.15 (M/uL) Final Hemoglobin 09/19/2024 10:10:26 15.1 12.0-15.3 (g/dL) Final HCT 09/19/2024 10:10:26 46.4 Above high normal 36.0-45.2 (%) Final MCV 09/19/2024 10:10:26 96.7 81.5-97.5 (fL) Final MCH 09/19/2024 10:10:26 31.5 27.0-34.0 (pg) Final MCHC 09/19/2024 10:10:26 32.5 32.0-36.0 (g/dL) Final RDW 09/19/2024 10:10:26 13.4 11.5-15.5 (%) Final Platelets 09/19/2024 10:10:26 234 140-400 (K/uL) Final MPV 09/19/2024 10:10:26 10.1 6.6-11.1 (fL) Final Nucleated erythrocytes/100 leukocytes [Ratio] in Blood by Automated count 09/19/2024 10:10:26 0 <=0 (/100 WBCs) Final Performing Location [facility] [address] [facility] [address]
--- OUTSIDE RECORDS SUMMARY | 2024-09-27 11:08 | External Medical Summary ---
Author Name Unknown Address Unknown Organization [id number]:[facility] [place] [address] [facility] [address] Laboratory Report Ordering Provider Test Date Status ILEANA URBAN 09/19/2024 10:10:26 Final Observation Date Value Abnormality Reference (Units ) Status BUN 09/19/2024 10:10:26 15 6-20 (mg/dL) Final Creatinine 09/19/2024 10:10:26 0.8 0.5-1.0 (mg/dL) Final Glomerular filtration rate/1.73 sq M.predicted [Volume Rate/Area] in Serum, Plasma or Blood by Creatinine-based formula (CKD-EPI) 09/19/2024 10:10:26 86 >=60 (mL/min) Final eGFR is calculated based on the CKD-EPI 2020 equation. Sodium 09/19/2024 10:10:26 141 135-146 (m mol/L) Final Potassium 09/19/2024 10:10:26 4.3 3.5-5.1 (m mol/L) Final Cl 09/19/2024 10:10:26 102 98-107 (mm ol/L) Final CO2 09/19/2024 10:10:26 26 22-32 (mmo l/L) Final Anion gap 09/19/2024 10:10:26 13 7-15 (mmol /L) Final Glucose 09/19/2024 10:10:26 104 70-120 (mg /dL) Final Albumin 09/19/2024 10:10:26 4.5 3.8-5.0 (g /dL) Final AST (Aspartate aminotransferase) 09/19/2024 10:10:26 30 10-35 (U/L) Final Alk Phos 09/19/2024 10:10:26 101 35-130 (U/ L) Final Bilirubin, Total 09/19/2024 10:10:26 0.8 <=1 .2 (mg/dL) Final Calcium 09/19/2024 10:10:26 10.2 8.4-10.2 ( mg/dL) Final Protein 09/19/2024 10:10:26 7.4 6.0-8.3 (g /dL) Final ALT (Alanine aminotransferase) 09/19/2024 10:10:26 26 10-35 (U/L) Final Performing Location [facility] [address] [facility] [address]
--- OUTSIDE RECORDS SUMMARY | 2024-09-27 11:08 | External Medical Summary ---
Author Name Unknown Address Unknown Organization K01:[facility] [place] [address] [facility] [address] Laboratory Report Ordering Provider Test Date Status ILEANA URBAN 09/19/2024 10:10:26 Final Observation Date Value Abnormality Reference (Units ) Status SYNC LEUKOCYTES IN BLOOD BY AUTOMATED COUNT 09/19/2024 10:10:26 6.75 4.00-10.80 (K/uL) Final Segs 09/19/2024 10:10:26 61.4 40.0-75.0 (%) Final Lymphs % 09/19/2024 10:10:26 23.7 18.0-42.0 (%) Final Monos 09/19/2024 10:10:26 11.7 Above high normal 1.0-11.0 (%) Final Eosinophils 09/19/2024 10:10:26 2.2 0.0-6.0 (%) Final Basos 09/19/2024 10:10:26 0.6 0.0-2.0 (%) Final Immature Granulocyte, Percent 09/19/2024 10:10:26 0.4 0.0-2.0 (%) Final Absolute Segs 09/19/2024 10:10:26 4.14 1.80-7.70 (K/uL) Final Lymphs, absolute 09/19/2024 10:10:26 1.60 1.00-4.80 (K/ul) Final Monos, Abs 09/19/2024 10:10:26 0.79 0.00-1.10 (K/uL) Final Eos, Abs 09/19/2024 10:10:26 0.15 0.00-0.70 (K/uL) Final Basos, Abs 09/19/2024 10:10:26 0.04 0.00-0.20 (K/uL) Final Immature Granulocytes, Number 09/19/2024 10:10:26 0.03 0.00-0.20 (K/uL) Final Performing Location [facility] [place] [address] [facility] [address]
--- OUTSIDE RECORDS SUMMARY | 2024-09-27 11:08 | External Medical Summary ---
Author Name Unknown Address Unknown Organization [id number]:LABORATORY [facility] - [address] [address] Laboratory Report Ordering Provider Test Date Status EDIS SON 09/19/2024 10:10:26 Final Observation Date Value Abnormality Reference (Units ) Status Bilirubin, Direct 09/19/2024 10:10:26 <0.2 0. 0-0.3 (mg/dL) Final Result may be falsely decrea sed due to hemolysis. Performing Location LAB[facility]ATORY [facility] - [address] [address]
--- OUTSIDE RECORDS SUMMARY | 2024-09-27 11:08 | External Medical Summary | Summary of Care ---
Author Name Unknown Organization [facility] Address [address] [place] [address] Phone [phone] Care Team Providers Care Sand Worker Name Role Phone Jenny Pressley MD Primary Care Provider [phone] Reason for Visit * Reason Comments Outpatient Testing Encounter Details Date Type Department Care Team (Late st Contact Info) Description 09/19/2024 10:10 AM EST Laboratory Laboratory, [facility] [address] [place] [id number] [facility], Lab [address] [place], [place] [id number] Dyslipidemia, goal LDL below 100; Controlled substance agreement signed; Chronic heart failure with reduced ejection fraction and diastolic dysfunction ([facility]); Atrial fibrillation status post cardioversion ([facility]); HTN, goal below 140/90; PAF (paroxysmal atrial fibrillation) ([facility]) Allergies Active Allergy Reactions Criticality Noted Date [...] as of this encounter (statuses as of 09/19/2024) Medications Cholecalciferol 25 MCG (1000 UT) Oral Capsule Take by mouth. Ac tive Ascorbic Acid 1000 MG Oral Tablet Take by mouth. Activ e Multivitamin Adult Extra C Oral Tablet Chewable Take by mouth . Acti ve Baclofen 10 MG Oral Tablet (Lioresal) TAKE 1 TAB BY MOUTH 2 TIMES A DAY NEEDED FOR CRAMPING OR MUSCLE SPASMS. 60 Tablet 1 2 Active Zinc 50 MG Oral Tablet Take 1 Tablet by mouth daily. Active BiPAP every night at bedtime. Active ALPRAZolam 0.5 MG Oral Tablet (Xanax) Take 1 Tablet by mouth at bedtime as needed for Sleep or Anxiety. Active Spironolactone 25 MG Oral Tablet (Aldactone)Indica tions:Atrial fibrillation status post cardioversion (HCC),NICM (nonischemic cardiomyopathy) (HCC),Chronic heart failure with reduced ejection fraction and diastolic dysfunction (HCC) Take 1 Tablet by mouth in the morning. 90 Tablet 3 4 Active Montelukast Sodium 10 MG Oral Tablet (Singulair) Take 1 Tablet by mouth in the morning. 90 Tablet 3 4 Active Bumetanide 1 MG Oral Tablet (Bumex) Take 1 Tablet by mouth in the morning and 1 Tablet before bedtime. 180 Tablet 2 4 Active Additional Information Patient taking differently:1 mg OralDaily(AM), Reported on 05/11/2024 Potassium Chloride ER 10 MEQ Oral Tablet Extended Release Take 1 Tablet by mouth in the morning. 90 Tablet 3 4 Active Fluticasone Propionate 50 MCG/ACT Nasal Suspension (Flonase)Indicati ons:Acute maxillary sinusitis, unspecified SPRAY 2 SPRAYS INTO EACH NOSTRIL IN THE MORNING 48 mL 1 4 Active Additional Information Patient taking differently: PRN, Allergies, Reported on 05/11/2024 Metoprolol Tartrate 25 MG Oral Tablet (Lopressor) Take 1 Tablet by mouth in the morning. Active Cetirizine HCl 10 MG Oral Tablet (ZyrTEC) Take 1 Tablet by mouth in the morning. 90 Tablet 3 4 Active Diclofenac Sodium 75 MG Oral Tablet Delayed Release (Voltaren) TAKE 1 TABLET BY MOUTH DAILY IN THE MORNING AND BEFORE BEDTIME TAKE WITH FOOD.. 60 Tablet 3 4 Active HYDROcodone-Aceta minophen 7.5-300 MG Oral Tablet Take 1 Tablet by mouth every 8 hours as needed for Pain, Severe. 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 02/29/2024 Obesity, morbid (more than 1 00 lbs over ideal weight or BMI > 40) 11/27/2023 Dilated cardiomyopathy 10/26/2023 Dilatation of colon 10/25/2023 PAF (paroxysmal atrial fibrillation) 10/21/2023 Elevated troponin 10/20/2023 Gout of big toe 11/17/2022 Status post right knee replacement 10/07/2022 Chronic allergic rhinitis 10/07/2022 Rotator cuff syndrome of left shoulder History of diffuse large B-cell lymphoma 022 Status post ablation of atrial fibrillation 06/26 Multiple thyroid nodules 11/08/2020 Controlled substance agreement signed 10/26/2017 Difficult intubation 07/24/2016 Overview (07/24/2016): Patient had mask pre O2 and optimal [...] extubation in PACU/OR as needed. Bargainnier DO Iron deficiency anemia due to chronic blood loss 06/23/2016 WILL on CPAP 03/08/2015 Atrial fibrillation with rapid ventricular respo nse 01/22/2015 HTN, goal below 140/90 11/03/2014 TEMPOROMANDIBULAR JOINT DISORDERS, UNSPECIFIED 0 05/29/2010 Malocclusion 05/29/2010 SENSORY HEARING LOSS, UNILATERAL,RIGHT 0 Chronic mastoiditis 05/28/2010 Deviated nasal septum 05/28/2010 Hypertrophy of nasal turbinates 05/28/2010 Other chronic sinusitis Anterior scleritis Overview (03/13/2006): OD Drusen of optic disc Overview (03/13/2006): OS by CT documented as of this encounter (statuses as of 09/19/2024) Resolved Problems Problem Noted Date Diagnosed Date Resolved Date Depression, unspecified 11/27/2023 08/0 05/2024 Diarrhea 10/25/2023 05/25/2024 Ileus, postoperative 10/23/2023 024 Pneumonia 10/21/2023 05/25/2024 Severe sepsis with acute organ dysfunction 10/21/2023 11/27/2023 Fever of unknown origin 10/21/202304/27 Body mass index (BMI) of 40. 0 to 44.9 in adult 10/05/2023 05/05/2024 Overview: Per Obesity protocol Morbid (severe) obesity due to excess calories 11/05/2022 11/17/2022 Diverticulitis of colon 10/07/202204/27 Hypertensive heart disease w ith chronic systolic congestive heart failure 10/31/20204 Overview (10/31/2020): Combination code derived from problem list Diffuse large B-cell lymphom a of intra-abdominal lymph nodes 08/06/2016 07/10/2022 Gastrointestinal hemorrhage 07/22/2016 05/25/2024 Anemia 07/22/2016 12/03/2018 Encounter for mastoidectomy cavity debridement 05/13/2015 05/13/2015 Acute on chronic systolic heart failure 01/22/2015 05/25/2024 Pulmonary edema 01/22/2015 11/08/2020 Respiratory failure with hypoxia 01/22/2015 12/03/2018 Paroxysmal atrial fibrillation 02/25/2013 11/27/2023 Palpitations 02/01/2013 12/03/2018 ENDOCRINE ANOMALY (THYROID) 05/29/2010 05/07/2020 MIXED HEARING LOSS, UNILATERAL,LEFT 05/28/2010 05/07/2020 ADVANCE DIRECTIVE INFORMATION 10/28/2005 08/29/2024 Overview (10/28/2005): No, Advance Directive brochure given to patient at prior appointment. SLEEP APNEA, UNSPECIFIED 10/2014 HYPERTENSION, ESSENTIAL NOS (G) 12/03/2018 NONALLERGIC RHINITIS 019 Atrial fibrillation 12/03/19 19 documented as of this encounter (statuses as of 09/19/2024) Immunizations Name Administration Dates Next Due PPD [...] Date Recorded PHQ Adult Total Score 0 2023 Hunger Vital Sign Answer Date Recorded Within the past 12 months, y ou worried that your food would run out before you got the money to buy more. Never true 08/01/20 24 Within the past 12 months, t he food you bought just didn't last and you didn't have money to get more. Never true 08/01/2024 Childcare Answer Date Recorded Do you feel overwhelmed with taking care of a child, family member or friend? No 08/01/2024 Does your family need help f inding childcare? (Household - for ages 0-17 years) Not on file 08/01/2024 Clothing Answer Date Recorded Have you been unable to get clothing when it was really needed? No 08/01/2024 Is your family able to get c lothes or diapers when needed? (Household - for ages 0-17 years) Not on file 08/01/2024 Personal Safety Answer Date Recorded Do you feel unsafe or have concerns for your saf ety? No 08/01/2024 Do you have concerns for you r family's safety? (Household - for ages 0-17 years) Not on file 08/01/2024 Utilities Answer Date Recorded Do you have trouble paying y our heating, water, or electric bill? No 08/01/2024 Is your family able to pay t he heat, water, or electric bill? (Household - for ages 0-17 years) Not on file 08/01/2024 Does your family have access to good internet? (Household - for ages 0-17 years) Not on file 08/01/2024 Employment Status Answer Date Recorded Are you unemployed or without regular income? No 08/01/2024 Does the household have a re lar source of income? (Household - for ages 0-17 years) Not on file 08/01/2024 Social Connections Answer Date Recorded How often do you feel lonely or isolated from th ose around you? Never 08/01/2024 Financial Resource Strain Answer Date R ecorded Do you have any trouble payi ng for your medications, or do you think you might in the future? No 08/01/2024 Does your family have troubl e paying for medicine? (Household - for ages 0-17 years) Not on file 08/01/2024 Transportation Needs Answer Date Record ed READ ONLY Do you have troubl e getting a ride to medical visits or work? Never True 08/01/2024 Does your family have a hard time getting a ride to doctors visits? (Household - for ages 0-17 years) Not on file 08/01/2024 Has lack of transportation k ept you from medical appointments, meetings, work, or from getting things needed for daily living? Check all that apply. No 08/01/2024 Do you (or your family) have trouble finding or paying for a ride (transportation)? (Household - for ages 0-17 years) Not on file 08/01/2024 Housing Stability Answer Date Recorded Do you currently live in a s helter or have no steady place to sleep at night? No 08/01/2024 READ ONLY Do you think you a re at risk of becoming homeless? No 08/01/2024 Does your family worry about paying for your home or becoming homeless? (Household - for ages 0-17 years) Not on file 1 Are you homeless or worried that you might be in the future? No 08/01/2024 Are you (or your family) jen eless or worried that you might be in the future? (Household - for ages 0-17 years) Not on file Food Insecurity Answer Date Recorded Do you need food for this week? No 08/01/2024 Are you able to get enough f ood for your family? (Household - for ages 0-17 years) Not on file 08/01/2024 Does your family need food t his week? (Household - for ages 0-17 years) Not on file 08/01/2024 Do you always have enough fo od for your family? (Household - for ages 0-17 years) Not on file 08/01/2024 Comments No Sex and Gender Information Value Date Recorded Sex Assigned at Female 11/17/2022 1:01 PM EST Legal Sex Female 5:32 AM EST Gender Identity Female 11/17/2022 1:01 PM EST Sexual Orientation Straight 11/17/2022 1: 01 PM EST documented as of this encounter Functional Status * Are you deaf or do you have serious difficulty hearing? Answer Date of Assessment Author No 10/21/2023 12:09 AM Pebbles Blackman RN * Are you blind or do you have serious difficulty seeing, even when wearing glasses? Answer Date of Assessment Author No 10/21/2023 12:09 AM Pebbles Blackman RN * Do you have serious difficulty walking or climbing stairs? (5 years old or older) Answer Date of Assessment Author Yes 10/21/2023 12:09 AM Pebbles Blackman RN * Do you have difficulty dressing or bathing? (5 years old or older) Answer Date of Assessment Author No 10/21/2023 12:09 AM Pebbles Blackman RN * Because of a physical, mental, or emotional condition, do you have difficulty doing errands alone such as visiting a doctors office or shopping? (15 years old or older) Answer Date of Assessment Author No 10/21/2023 12:09 AM Pebbles Blackman RN documented as of this encounter Mental Status * Because of a physical, mental, or emotional condition, do you have serious difficulty concentrating, remembering, or making decisions? (5 years old or older) Answer Entry Date Author No 10/21/2023 12:09 AM Pebbles Blackman RN documented in this encounter Plan of Treatment Upcoming Encounters Date Type Department Care Team (Late st Contact Info) Description 11/25/2024 1:00 PM EST Cardiac Studies Cardiac Studies, [facility] [address] [place] [id number] 12/06/2024 2:30 PM EST Office Visit Cardiology, [facility] [address] [address] [place], [address] [place] [address] 01/30/2025 12:20 PM EDT Office Visit [facility] [address] [place] [phone] [facility] [address] [facility] [address] Pending Results Name Type Priority Associated Diagnoses Date /Time LIPID PANEL WITH DIRECT LDL IF TG IS HIGH Lab Routine Dyslipidemia, goal LDL below 100 09/19/2024 10:10 AM EST TOXICOLOGY, URINESCREEN W/ CONFIRMATION Lab Routine Controlled substance agreement signed 09/19/2024 10:10 AM EST MAGNESIUM Lab Routine Chronic heart failure with reduced ejection fraction and diastolic dysfunction (HCC) Atrial fibrillation status post cardioversion (HCC) HTN, goal below 140/90 09/19/2024 10:10 AM EST COMPREHENSIVE METABOLIC PANEL Lab Routine PAF (paroxysmal atrial fibrillation) (HCC) Chronic heart failure with reduced ejection fraction and diastolic dysfunction (HCC) HTN, goal below 140/90 09/19/2024 10:10 AM EST CBC WITH WBC DIFFERENTIAL Lab Routine PAF (paroxysmal atrial fibrillation) (HCC) Chronic heart failure with reduced ejection fraction and diastolic dysfunction (HCC) HTN, goal below 140/90 09/19/2024 10:10 AM EST CBC Lab Routine PAF (paroxysmal atrial fibrillation) (HCC) Chronic heart failure with reduced ejection fraction and diastolic dysfunction (HCC) HTN, goal below 140/90 09/19/2024 10:10 AM EST DIFFERENTIAL, AUTOMATED Lab Routine PAF (paroxysmal atrial fibrillation) (HCC) Chronic heart failure with reduced ejection fraction and diastolic dysfunction (HCC) HTN, goal below 140/90 09/19/2024 10:10 AM EST BILIRUBIN, DIRECT Lab Routine Dyslipidemia, goal LDL below 100 09/19/2024 10:10 AM EST Health Maintenance Due Date Last Done Comments Pneumococcal Vaccine: 65+ Years (1 of 2 - PCV) 1960 Mammogram 1994 Cologuard 1999 Fecal Occult Blood Test 1999 Sigmoidoscopy 1999 Colonoscopy 06/24/2021 06/24/2016, 06/24/2016 Colorectal Cancer Screening 06/24/2021 Adult Wellness Visit 11/25/2023 11/25/2022 COVID-19 Vaccine ( - season) 2024 Influenza Vaccine (FLU shot) (#1) 2024 Depression Screening 2024 2023, 01/30/2015 (Declined) GFR 01/21/2025 01/22/2024, 0311/2023, 12/07/2023, Additional history exists Albumin/Creatinine Ratio 05/18/2026 05/18/2023 Diabetes Screening 01/21/2027 01/22/2024, 0 12/26/2023, 12/07/2023, Additional history exists Lipid Panel 01/21/2029 01/22/2024, 09/26, 05/18/2023, Additional history exists RETIRED - COLONOSCOPY-EVERY 5 YRS AGES 18-100 Discontinued 06/24/2016, 06/24/2016 DTap/Tdap Vaccines Discontinued DXA Scan Discontinued HPV (Gardasil) Vaccine Aged Out No lo nger eligible based on patient's age to complete this topic Hepatitis B Vaccine Aged Out No longe r eligible based on patient's age to complete this topic MENINGOCOCCAL (MENACTRA/MENVEO) Aged Out No longer eligible based on patient's age to complete this topic Zoster Vaccines Discontinued documented as of this encounter Medical Devices Not on filedocumented as of this encounter Visit Diagnoses Diagnosis Dyslipidemia, goal LDL below 100 Other and unspecified hyperlipidemia Controlled substance agreement signed Encounter for long-term (current) use of other medications Chronic heart failure with reduced ejection fraction and diastolic dysfunction (HCC) Atrial fibrillation status post cardioversion (HCC) Cardiac complications HTN, goal below 140/90 Unspecified essential hypertension PAF (paroxysmal atrial fibrillation) (HCC) Atrial fibrillation documented in this encounter Advance Directives * Full Code (Latest Code Status on File) Date Activated Date Inactivated Comments 11/03/2023 10:26 AM 11/03/2023 8:50 PM This order re flects the patients wishes and were consensually agreed upon. Question Answer Comments Discussion of Advance Directives occurred with: Patient Does the patient have a Living Will? No Does the patient have Health Care Power of Attor kathy? No * Full Code Date Activated Date Inactivated Comments 10/21/2023 8:39 PM 11/03/2023 10:26 AM This order reflects the patients wishes and were consensually agreed upon. Question Answer Comments Discussion of Advance Directives occurred with: Patient * Full Code Date Activated Date Inactivated Comments 10/20/2023 10:48 PM 10/21/2023 8:38 PM This orde r reflects the patients wishes and were consensually agreed upon. Question Answer Comments Discussion of Advance Directives occurred with: Patient Does the patient have a Living Will? No Does the patient have Health Care Power of Attor kathy? No * Full Code Date Activated Date Inactivated Comments 07/22/2016 6:01 PM 07/29/2016 8:21 PM This order r eflects the patients wishes and were consensually agreed upon. Question Answer Comments Discussion of Advance Directives occurred with: Patient Does the patient have a Living Will? No Does the patient have Health Care Power of Attor kathy? No * Full Code Date Activated Date Inactivated Comments 01/22/2015 6:34 AM 01/24/2015 9:44 PM This order re flects the patients wishes and were consensually agreed upon. Question Answer Comments Discussion of Advance Directives occurred with: Patient Does the patient have a Living Will? No Does the patient have Health Care Power of Attor kathy? No Care Teams Sand Worker Relationship Specialty Start Date End Date Jenny Pressley MD [address] [place] [address] PCP - General Internal Medicine 11/20/23 documented as of this encounter
--- OUTSIDE RECORDS SUMMARY | 2024-09-27 11:09 | External Medical Summary | Summary of Care ---
Author Name Unknown Organization [facility] Address [address] [place] [address] Phone [phone] Care Team Providers Care Technical Aide Name Role Phone Jenny Pressley MD Primary Care Provider [phone] Reason for Visit * Reason Onset Date Comments Med Request 07/21/2024 Gout Encounter Details Date Type Department Care Team ([facility] st Contact Info) Description 07/21/2024 Telephone [facility] [address] [place] [address] Jenny Pressley MD [address] [place] [address] Med Request (Gout ) Allergies Active Allergy Reactions Criticality Noted Date [...] as of this encounter (statuses as of 07/22/2024) Medications Medication Sig Dispensed Refills Start Date End Date Status Cholecalciferol 25 MCG (1000 UT) Oral Capsule Take by mouth. Active Ascorbic Acid 1000 MG Oral Tablet Take by mouth. Active Multivitamin Adult Extra C Oral Tablet Chewable Take by mouth . Active Baclofen 10 MG Oral Tablet (Lioresal) TAKE 1 TAB BY MOUTH 2 TIMES A DAY NEEDED FOR CRAMPING OR MUSCLE SPASMS. 60 Tablet 1 07/10/2022 Active Zinc 50 MG Oral Tablet Take 1 Tablet by mouth daily. Active BiPAP every night at bedtime. Active ALPRAZolam 0.5 MG Oral Tablet (Xanax) Take 1 Tablet by mouth at bedtime as needed for Sleep or Anxiety. Active Spironolactone 25 MG Oral Tablet (Aldactone)Indicatio ns:Atrial fibrillation status post cardioversion (HCC),NICM (nonischemic cardiomyopathy) (HCC),Chronic heart failure with reduced ejection fraction and diastolic dysfunction (HCC) Take 1 Tablet by mouth in the morning. 90 Tablet 3 12/11/2023 Active Montelukast Sodium 10 MG Oral Tablet (Singulair) Take 1 Tablet by mouth in the morning. 90 Tablet 3 01/18/2024 Active Bumetanide 1 MG Oral Tablet (Bumex) Take 1 Tablet by mouth in the morning and 1 Tablet before bedtime. 180 Tablet 2 03/24/2024 Active Additional Information Patient taking differently:1 mg OralDaily(AM), Reported on 05/11/2024 Potassium Chloride ER 10 MEQ Oral Tablet Extended Release Take 1 Tablet by mouth in the morning. 90 Tablet 3 03/24/2024 Active Fluticasone Propionate 50 MCG/ACT Nasal Suspension (Flonase)Indications :Acute maxillary sinusitis, unspecified SPRAY 2 SPRAYS INTO EACH NOSTRIL IN THE MORNING 48 mL 1 04/02/2024 Active Additional Information Patient taking differently: PRN, Allergies, Reported on 05/11/2024 Metoprolol Tartrate 25 MG Oral Tablet (Lopressor) Take 1 Tablet by mouth in the morning. Active HYDROcodone-Acetamin ophen 7.5-300 MG Oral Tablet Take 1 Tablet by mouth every 8 hours as needed for Pain, Severe. 60 Tablet 05/06/2024 Active levoFLOXacin 500 MG Oral TabletIndications:Ch ronic otorrhea, bilateral Take 1 Tablet by mouth in the morning. 10 Tablet 05/12/2024 Active Additional Information Patient not taking.Reported on 05/25/2024 Cetirizine HCl 10 MG Oral Tablet (ZyrTEC) Take 1 Tablet by mouth in the morning. 90 Tablet 3 06/02/2024 Active Diclofenac Sodium 75 MG Oral Tablet Delayed Release (Voltaren) TAKE 1 TABLET BY MOUTH DAILY IN THE MORNING AND BEFORE BEDTIME TAKE WITH FOOD.. 60 Tablet 3 06/08/2024 Active methylPREDNISolone 4 MG Oral Tablet Therapy Pack (Medrol Dosepack) follow package directions 21 Tablet 07/22/2024 Active Colchicine 0.6 MG Oral Tablet Take 1 Tablet by mouth in the morning and 1 Tablet before bedtime. 60 Tablet 1 07/22/2024 Active documented as of this encounter (statuses as of 07/22/2024) Active Problems Problem Noted Date Diagnosed Date Chronic heart failure with r educed ejection [...] Attempted DL MAC 3 by another anesthesiologist, (me) using bougie; only epiglottis visible with secretions [...] as of this encounter (statuses as of 07/22/2024) Resolved Problems Problem Noted Date Diagnosed Date Resolved Date Depression, unspecified 11/27/2023 08/0 05/2024 Diarrhea 10/25/2023 05/25/2024 Ileus, postoperative 10/23/2023 024 Pneumonia 10/21/2023 05/25/2024 Severe sepsis with acute organ dysfunction 10/21/2023 11/27/2023 Fever of unknown origin 10/21/2023 07/10/2023 Body mass index (BMI) of 40. 0 to 44.9 in adult 10/05/2023 05/05/2024 Overview: Per Obesity protocol Morbid (severe) obesity due to excess calories 11/05/2022 11/17/2022 Diverticulitis of colon 10/07/202204/27 Hypertensive heart disease w ith chronic systolic congestive heart failure 10/31/20202023 Overview: Combination code derived from problem list Diffuse [...] as of this encounter (statuses as of 07/22/2024) Immunizations Name Administration Dates Next Due PPD [...] the money to buy more. Never true 11/20/19 24 Within the past 12 months, t he food you bought just didn't last and you didn't have money to get more. Never true 2023 Sex and Gender Information Value Date Recorded [...] Telephone Encounter - Sharon Chaudhry LPN - 07/22/2024 3:28 PM EDT Patient aware and verbalized understanding Please assist with scheduling appt * Telephone Encounter - Jenny Pressley MD - 07/22/2024 3:13 PM EDT If she was not taking allopurinol , DO NOT take it when she has flare up It can make worse Will send steroid package and colcichine 0.6 mg bid to take And please see me next week anytime soon And will discuss about other med use for gout * Telephone Encounter - Nishi Cervantes OSA - 07/21/2024 4:27 PM EDT Patient calling in to check on the status of previous message. Patient Called within 48 hour timeframe. Reminded patient of 48 hour turn-around time. Pt advised it was urgent as she can barely walk or sleep with the pain. Resent as HP. Please call pt back and advise if something can be sent to the pharmacy for her. * Telephone Encounter - Sue Fontana OSA - 07/21/2024 9:19 AM EDT Pt is having a gout flare up. She is asking if a steroid can be prescribed? Pt does have allopurinol on hand but she is having some swelling of big toe. She states it is painful and is unable to sleep. Please advise. [facility] pharmacy documented in this encounter Plan of Treatment Upcoming Encounters Date Type Department Care Team (Late st Contact Info) Description 09/02/2024 1:00 PM EST Office Visit [facility] [address] [place] [address] Jenny Pressley MD [address] [place] [address] 11/25/2024 1:00 PM EST Cardiac Studies [facility] [address] [facility] [place] [id number] 12/06/2024 2:30 PM EST Office Visit [facility], [facility] [address] [facility] [place] [address] Sebastian Santiago, [address] [place] [address] Health Maintenance Due Date Last Done Comments Pneumococcal Vaccine: 65+ Years (1 of 2 - PCV) 1960 Mammogram 1994 Cologuard 1999 Fecal Occult Blood Test 1999 Sigmoidoscopy 1999 Colonoscopy 06/24/2021 06/24/2016, 06/24/2016 Colorectal Cancer Screening 06/24/2021 Adult Wellness Visit 11/25/2023 11/25/2022 COVID-19 Vaccine ( season) 2024 Influenza Vaccine (FLU shot) (#1) 2024 Depression Screening 2024 2023, 01/30/2015 (Declined) GFR 01/21/2025 01/22/2024, 03/11/2023, 12/07/2023, Additional history exists Albumin/Creatinine Ratio 05/18/2026 [...] filedocumented as of this encounter Advance Directives * Full Code [...] 6:34 AM 01/24/2015 9:44 PM This order r eflects the patients wishes and were consensually agreed upon. Question Answer Comments Discussion of Advance Directives occurred with: Patient Does the patient have a Living Will? No Does the patient have Health Care Power of Attor kathy? No Care Teams Technical Aide Relationship Specialty Start Date End Date Jenny Pressley MD [address] [place] [address] PCP - General Internal Medicine 11/20/23 documented as of this encounter
--- OUTSIDE RECORDS SUMMARY | 2024-09-27 11:09 | External Medical Summary | Summary of Care ---
Author Name Unknown Organization [facility] Address [address] [place] [address] Phone [phone] Care Team Providers Care Commodities Manager Name Role Phone Jenny Pressley MD Primary Care Provider [phone] Reason for Visit * Reason Comments Follow Up Pt here today for a routine follow up Encounter Details Date Type Department Care Team (Late st Contact Info) Description 08/01/2024 12:40 PM EDT Office Visit [facility] [id number] [place] [address] Jenny Pressley MD [address] [place] [address] PAF (paroxysmal atrial fibrillation) (HCC)*; Need for pneumococcal vaccination; Obesity, morbid (more than 100 lbs over ideal weight or BMI > 40) (HCC); Atrial fibrillation with rapid ventricular response (HCC); Chronic heart failure with reduced ejection fraction and diastolic dysfunction ([facility]); Gout of big toe; Hypertensive heart disease with chronic combined systolic and diastolic congestive heart failure ([facility]); HTN, goal below 140/90; WILL on CPAP; Pulmonary hypertension, unspecified ([facility]); Status post ablation of atrial fibrillation; Chronic allergic rhinitis; Mammogram declined Allergies Active Allergy Reactions Criticality Noted Date [...] as of this encounter (statuses as of 08/01/2024) Medications Medication Sig Dispensed Refills Start Date [...] for Pain, Severe. 60 Tablet 4 Active HYDROcodone-Aceta minophen 7.5-300 MG Oral Tablet Take 1 Tablet by mouth every 8 hours as needed for Pain, Severe. 60 Tablet 4 08/01/20 24 Discontinued(Re fill) levoFLOXacin 500 MG Oral TabletIndications :Chronic otorrhea, bilateral Take 1 Tablet by mouth in the morning. 10 Tablet 4 08/01/20 24 Discontinued methylPREDNISolon e 4 MG Oral Tablet Therapy Pack (Medrol Dosepack) follow package directions 21 Tablet 4 08/01/20 24 Discontinued Colchicine 0.6 MG Oral Tablet Take 1 Tablet by mouth in the morning and 1 Tablet before bedtime. 60 Tablet 1 4 08/01/20 24 Discontinued(Hardeep harmon preference/disc ontinuation) documented as of this encounter (statuses as of 08/01/2024) Active Problems Problem Noted Date Diagnosed Date [...] Rotator cuff syndrome of left shoulder 2 History of diffuse large B-cell lymphoma 022 [...] as of this encounter (statuses as of 08/01/2024) Resolved Problems Problem Noted Date Diagnosed Date [...] as of this encounter (statuses as of 08/01/2024) Immunizations Name Administration Dates Next Due PPD [...] Sign Reading Time Taken Comments Blood Pressure 132/80 08/01/2024 12:47 PM EDT Pulse 68 08/01/2024 12:47 PM EDT Temperature 35.8 C (96.4 F) 08/01/2024 1 2:47 PM EDT Respiratory Rate 18 08/01/2024 12:4 7 PM EDT Oxygen Saturation 98% 08/01/2024 12: 47 PM EDT Inhaled Oxygen Concentration - - Weight 118.8 kg (261 lb 14.4 oz) 2023 12:47 PM EDT Height - - Body Mass Index 42.7 06/02/2024 4:00 PM EDT documented in this encounter Functional Status Functional [...] No 10/21/2023 documented as of this encounter Patient Instructions * Patient Instructions* Kaleigh Orta LPN - 08/01/2024 12:50 PM EDT ~~PATIENT INSTRUCTIONS FOR PNEUMOCOCCAL VACCINE~~ Possible side effects of pneumococcal vaccine, (pneumonia shot), are usually mild and can include: 1. Soreness or redness at injection site 2. Low grade fever 3. Body aches You may use Tylenol/Acetaminophen as needed for these symptoms. LET YOUR DOCTOR KNOW IMMEDIATELY IF YOU HAVE DIFFICULTY BREATHING OR SWALLOWING, EXPERIENCE ITCHINGOF FEET OR HANDS, HAVE SWELLING OF EYES, FACE OR INSIDE OF NOSE. documented in this encounter Progress Notes * Jenny Pressley MD - 08/01/2024 12:52 PM EDT Subjective Ramona Stringer is a 68 year old female. Chief Complaint Patient presents with Follow Up Pt here today for a routine follow up HPI: Here for routine check up Chronic pain Had MRI done in apr ( PT was causing more severe pain ) Taking vicodin just as needed , rarely taking For chronic pain, saw pain medicine But previously injection didn't help much Known CMP, systolic CHF, afib, s/p ablation early oct , f/ with cardio Taking all her meds BP stable, HR - controlled , today regular with multiple skipped beats 2D echo again in oct next year WILL on BiPAP Known chronic allergy sinus problem F/u with ENT Taking singulair , zyrtec, sprays Gout , rt big toe , didn't take allopurinol But due to increased uric acid level, advised to start taking allopurinol Obesity , BMI 42 Encouraged diet and exercise PMH: Patient Active Problem List Diagnosis ADVANCE DIRECTIVE INFORMATION Other chronic sinusitis Anterior scleritis Drusen of optic disc SENSORY HEARING LOSS, UNILATERAL,RIGHT Chronic mastoiditis Deviated nasal septum Hypertrophy of nasal turbinates TEMPOROMANDIBULAR JOINT DISORDERS, UNSPECIFIED Malocclusion HTN, goal below 140/90 Atrial fibrillation with rapid ventricular response (HCC) WILL on CPAP Iron deficiency anemia due to chronic blood loss Difficult intubation Controlled substance agreement signed Multiple thyroid nodules History of diffuse large B-cell lymphoma Status post ablation of atrial fibrillation Status post right knee replacement Chronic allergic rhinitis Rotator cuff syndrome of left shoulder Gout of big toe Elevated troponin PAF (paroxysmal atrial fibrillation) (HCC) Dilatation of colon Dilated cardiomyopathy (HCC) Obesity, morbid (more than 100 lbs over ideal weight or BMI > 40) (HCC) Hypertensive heart disease with chronic combined systolic and diastolic congestive heart failure (HCC) Pulmonary hypertension, unspecified (HCC) Chronic heart failure with reduced ejection fraction and diastolic dysfunction (HCC) Mammogram declined Current Outpatient Medications Medication Sig Dispense Refill Cholecalciferol 25 MCG (1000 UT) Oral Capsule Take by mouth. Ascorbic Acid 1000 MG Oral Tablet Take by mouth. Multivitamin Adult Extra C Oral Tablet Chewable Take by mouth . Baclofen 10 MG Oral Tablet (Lioresal) TAKE 1 TAB BY MOUTH 2 TIMES A DAY NEEDED FOR CRAMPING OR MUSCLE SPASMS. 60 Tablet 1 Zinc 50 MG Oral Tablet Take 1 Tablet by mouth daily. BiPAP every night at bedtime. ALPRAZolam 0.5 MG Oral Tablet (Xanax) Take 1 Tablet by mouth at bedtime as needed for Sleep or Anxiety. Spironolactone 25 MG Oral Tablet (Aldactone) Take 1 Tablet by mouth in the morning. 90 Tablet 3 Montelukast Sodium 10 MG Oral Tablet (Singulair) Take 1 Tablet by mouth in the morning. 90 Tablet 3 Bumetanide 1 MG Oral Tablet (Bumex) Take 1 Tablet by mouth in the morning and 1 Tablet before bedtime. (Patient taking differently: Take 1 Tablet by mouth in the morning.) 180 Tablet 2 Potassium Chloride ER 10 MEQ Oral Tablet Extended Release Take 1 Tablet by mouth in the morning. 90Tablet 3 Fluticasone Propionate 50 MCG/ACT Nasal Suspension (Flonase) SPRAY 2 SPRAYS INTO EACH NOSTRIL IN THE MORNING (Patient taking differently: as needed for Allergies.) 48 mL 1 Metoprolol Tartrate 25 MG Oral Tablet (Lopressor) Take 1 Tablet by mouth in the morning. Cetirizine HCl 10 MG Oral Tablet (ZyrTEC) Take 1 Tablet by mouth in the morning. 90 Tablet 3 Diclofenac Sodium 75 MG Oral Tablet Delayed Release (Voltaren) TAKE 1 TABLET BY MOUTH DAILY IN THE MORNING AND BEFORE BEDTIME TAKE WITH FOOD.. 60 Tablet 3 HYDROcodone-Acetaminophen 7.5-300 MG Oral Tablet Take 1 Tablet by mouth every 8 hours as needed forPain, Severe. 60 Tablet 0 No current facility-administered medications for this visit. Past Medical History: Diagnosis Date Anterior scleritis OD Chronic rhinitis Depressive disorder, not elsewhere classified Diverticulitis of colon 10/07/2022 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 Gastrointestinal hemorrhage 07/22/2016 HTN, goal to be determined Osteoarthrosis, unspecified whether generalized or localized, lower leg Other chronic sinusitis PAF (paroxysmal atrial fibrillation) (HCC) Pure hypercholesterolemia Sleep apnea Systolic CHF (HCC) Past Surgical History: Procedure Laterality Date DELIVERY COLONOSCOPY, DIAGNOSTIC (RECTUM) N/A 06/24/2016 hyperplastic polyp/recall 5 years/COLONOSCOPY FLEXIBLE PROXIMAL DIAGNOSTIC performed by Eden Foreman DO at ENDOSCOPY [facility] CREATE EARDRUM OPENING,LOCAL ANESTH Tympanostomy tubes; cholesteotoma repair EGD, FLEXIBLE, DIAGNOSTIC N/A 06/10/2016 normal/ESOPHAGOGASTRODUODENOSCOPY (EGD), FLEXIBLE, TRANSORAL, DIAGNOSTIC performed by Eden Foreman DO at ENDOSCOPY [facility] EXPLORATION OF ABDOMEN N/A 07/24/2016 EXPLORATORY LAPAROTOMY performed by Eden Hassan DO at OR [facility] PARTIAL REMOVAL OF THYROID LOBE had a lump at age 15-16- assumes it was benign REMOVAL OF SMALL INTESTINE W/FUSION N/A 07/24/2016 ENTERECTOMY SMALL BOWEL RESECTION performed by Eden Hassan DO at OR [facility] REMOVE TONSILS & ADENOIDS, UNDER 12 T & A, age<12 REPAIR OF NASAL SEPTUM ? 2001 Nasal Septum Repair - Dr. Hernández [facility] & MASTOID 12/16/2011 TYMPANOPLASTY MASTOIDECTOMY WITHOUT OSSICULAR RECONSTRUCTION performed by SEA MCCARTY at [place] [facility] Review of patient's allergies indicates: Allergen Reactions [...] heart "pound" Sotalol Family History Problem Relation Name Age of Onset Heart Disorder Mother pacer Hypertension Mother Heart Disorder Father MA Heart Disorder Brother A.fib Mental Disorder Daughter [...] no passive smoke exposures Vaping Use Vaping status: Never Used Substance and Sexual Activity Alcohol use: Not [...] not work outside of home. Entered by: Nik Krishna MD 03/13/2006 Social Determinants of Health Financial Resource Strain: Low Risk (08/01/2024) Financial Resource Strain Do you have any trouble paying for your medications, or do you think you might in the future? (Adult - for ages 18 years and over): No Does your family have trouble paying for medicine? (Household - for ages 0-17 years): Not on file Food Insecurity: No Food Insecurity (08/01/2024) Food Insecurity Do you need food for this week? (Adult - for ages 18 years and over): No Are you able to get enough food for your family? (Household - for ages 0-17 years): Not on file Does your family need food this week? (Household - for ages 0-17 years): Not on file Do you always have enough food for your family? (Household - for ages 0-17 years): Not on file Transportation Needs: No Transportation Needs (08/01/2024) Transportation Needs Do you have trouble getting a ride to medical visits or work? (Adult - for ages 18 years and over):Never True Does your family have a hard time getting a ride to doctors visits? (Household - for ages 0-17 years): Not on file Has lack of transportation kept you from medical appointments, meetings, work, or from getting things needed for daily living? Check all that apply. (Adult - for ages 18 years and over): No Do you (or your family) have trouble finding or paying for a ride (transportation)? (Household - for ages 0-17 years): Not on file Social Connections: Socially Integrated (08/01/2024) Social Connections How often do you feel lonely or isolated from those around you? (Adult - for ages 18 years and over): Never Housing Stability: Low Risk (08/01/2024) Housing Stability Do you currently live in a [place] or have no steady place to sleep at night? (Adult - for ages 18 years and over): No Do you think you are at risk of becoming homeless? (Adult - for ages 18 years and over): No Does your family worry about paying for your home or becoming homeless? (Household - for ages 0-17 years): Not on file Are you homeless or worried that you might be in the future? (Adult - for ages 18 years and over): No Are you (or your family) homeless or worried that you might be in the future? (Household - for ages0-17 years): Not on file Review of Systems Constitutional: Positive for fatigue. Negative for activity change, appetite change, chills, diaphoresis, fever and unexpected weight change. HENT: Positive for congestion. Negative for sinus pressure and sinus pain. Respiratory: Negative for cough, chest tightness, shortness of breath and wheezing. Cardiovascular: Positive for leg swelling (mild chronic). Negative for chest pain and palpitations. Gastrointestinal: Negative for abdominal distention, abdominal pain, nausea and vomiting. Endocrine: Negative. Musculoskeletal: Positive for arthralgias, back pain and gait problem. Allergic/Immunologic: Positive for environmental allergies. Neurological: Positive for headaches. Negative for dizziness, weakness and light-headedness. Psychiatric/Behavioral: Positive for sleep disturbance. Negative for agitation and behavioral problems. The patient is nervous/anxious. Objective BP 132/80 | Pulse 68 | Temp 35.8 C (96.4 F) (Tympanic) | Resp 18 | Wt 118.8 kg (261 lb 14.4 oz)| SpO2 98% | BMI 42.70 kg/m | BSA 2.35 m Physical Exam Constitutional: General: She is not in acute distress. Appearance: Normal appearance. She is obese. She is not ill-appearing, toxic- appearing or diaphoretic. HENT: Head: Normocephalic and atraumatic. Nose: Nose normal. Eyes: Extraocular Movements: Extraocular movements intact. Cardiovascular: Rate and Rhythm: Regular rhythm. Pulses: Normal pulses. Comments: Multiple skipped beats Pulmonary: Effort: Pulmonary effort is normal. No respiratory distress. Breath sounds: Normal breath sounds. No stridor. No wheezing, rhonchi or rales. Chest: Chest wall: No tenderness. Musculoskeletal: General: Tenderness present. Right lower leg: No edema. Left lower leg: No edema. Neurological: General: No focal deficit present. Mental Status: She is alert and oriented to person, place, and time. Psychiatric: Behavior: Behavior normal. ASSESSMENT/PLAN: PAF (paroxysmal atrial fibrillation) ([facility]) (Primary) - COMPREHENSIVE METABOLIC PANEL; Future; Expected date: 08/01/2024 - CBC WITH WBC DIFFERENTIAL; Future; Expected date: 08/01/2024 - LIPID PANEL WITH DIRECT LDL IF TG IS HIGH; Future; Expected date: 08/01/2024 Need for pneumococcal vaccination - PNEUMOCOCCAL VACC, PCV20, IM ([id number]) Obesity, morbid (more than 100 lbs over ideal weight or BMI > 40) ([facility]) Atrial fibrillation with rapid ventricular response ([facility]) Chronic heart failure with reduced ejection fraction and diastolic dysfunction ([facility]) - COMPREHENSIVE METABOLIC PANEL; Future; Expected date: 08/01/2024 - CBC WITH WBC DIFFERENTIAL; Future; Expected date: 08/01/2024 Gout of big toe Hypertensive heart disease with chronic combined systolic and diastolic congestive heart failure (HCC) HTN, goal below 140/90 - COMPREHENSIVE METABOLIC PANEL; Future; Expected date: 08/01/2024 - CBC WITH WBC DIFFERENTIAL; Future; Expected date: 08/01/2024 WILL on CPAP Pulmonary hypertension, unspecified (HCC) Status post ablation of atrial fibrillation Chronic allergic rhinitis Mammogram declined Other orders - HYDROcodone-Acetaminophen 7.5-300 MG Oral Tablet; Take 1 Tablet by mouth every 8 hours as needed for Pain, Severe. Follow Up: Return in about 6 months (around 01/30/2025) for Clinic Visit. | For: Clinic Visit | Check-out note: Labs anytime F/u labs Cont all meds Fu with cardio Jenny Pressley MD documented in this encounter Nursing Notes * Kaleigh Orta LPN - 08/01/2024 12:43 PM EDT Chief Complaint Patient presents with Follow Up Pt here today for a routine follow up documented in this encounter Plan of Treatment Upcoming Encounters Date Type Department Care Team (Late st Contact Info) Description 09/02/2024 1:00 PM EST Office Visit [facility] [address] [facility] [place] [id number] Jenny Pressley MD [address] [facility] [place] [address] 11/25/2024 1:00 PM EST Cardiac Studies Cardiac Studies, [facility] [address] [place] [address] 12/06/2024 2:30 PM EST Office Visit Cardiology, [facility] [address] [place] [address] Sebastian Santiago, [address] [facility] [place] [address] 01/30/2025 12:20 PM EDT [facility] [address] [facility] [phone] [facility] [address] [facility] [address] Scheduled Orders Name Type Priority Associated Diagnoses Orde r Schedule COMPREHENSIVE METABOLIC PANEL Lab Routine PAF (paroxysmal atrial fibrillation) (HCC) Chronic heart failure with reduced ejection fraction and diastolic dysfunction (HCC) HTN, goal below 140/90 Expected: 08/01/2024 (Approximate), Expires: 08/01/2025 CBC WITH WBC DIFFERENTIAL Lab Routine PAF (paroxysmal atrial fibrillation) (HCC) Chronic heart failure with reduced ejection fraction and diastolic dysfunction (HCC) HTN, goal below 140/90 Expected: 08/01/2024 (Approximate), Expires: 08/01/2025 LIPID PANEL WITH DIRECT LDL IF TG IS HIGH Lab Routine PAF (paroxysmal atrial fibrillation) (HCC) Expected: 08/01/2024, Expires: 08/01/2025 Health Maintenance Due Date Last Done Comments [...] as of this encounter Visit Diagnoses Diagnosis PAF (paroxysmal atrial fibrillation) (HCC)- Primary Atrial fibrillation Need for pneumococcal vaccination Need for prophylactic vaccination against streptococcus pneumoniae (pneumococcus) Obesity, morbid (more than 100 lbs over ideal weight or BMI > 40) (HCC) Morbid obesity Atrial fibrillation with rapid ventricular response (HCC) Atrial fibrillation Chronic heart failure with reduced ejection fraction and diastolic dysfunction (HCC) Gout of big toe Acute gouty arthropathy Hypertensive heart disease with chronic combined systolic and diastolic congestive heart failure (HCC) HTN, goal below 140/90 Unspecified essential hypertension WILL on CPAP Obstructive sleep apnea (adult) (pediatric) Pulmonary hypertension, unspecified (HCC) Status post ablation of atrial fibrillation Other postprocedural status Chronic allergic rhinitis Allergic rhinitis, cause unspecified Mammogram declined Surgical or other procedure not carried out because of patient's decision documented in this encounter Advance Directives * [...] Power of Attor kathy? No Care Teams Commodities Manager Relationship Specialty Start Date End Date Jenny Pressley MD [address] [place] [address] PCP - General Internal Medicine 11/20/23 documented as of this encounter
--- OUTSIDE RECORDS SUMMARY | 2024-09-27 11:09 | External Medical Summary | Summary of Care ---
Author Name Unknown Organization [facility] Address [address] [place] [address] Phone [phone] Care Team Providers Care Physician Internist Name Role Phone Jenny Pressley MD Primary Care Provider [phone] Reason for Visit * Reason Onset Date Comments MyCode Nonconsent - Not interested at this time 08/01/2024 Encounter Details Date Type Department Care Team (Late st Contact Info) Description 08/01/2024 Orders Only Outcomes Research Department [address] [place] [address] Angelic Quesada CHRA MyCode Nonconsent Documentation Allergies Active Allergy Reactions Criticality Noted Date [...] fibrillation status post cardioversion (HCC),NICM (nonischemic cardiomyopathy) ([facility]),Chronic heart failure with reduced ejection fraction and [...] WITH FOOD.. 60 Tablet 3 06/08/2024 Active HYDROcodone-Acetamin ophen 7.5-300 MG Oral Tablet Take 1 Tablet by mouth every 8 hours as needed for Pain, Severe. 60 Tablet 08/01/2024 Active documented as of this encounter (statuses [...] No 10/21/2023 documented as of this encounter Progress Notes * Angelic Quesada CHRA - 08/01/2024 2:35 PM EDT MyCode Nonconsent Documentation Ramona Stringer was approached in the clinic regarding participation in the MyCode Project and did not consent. documented in this encounter Plan of Treatment Upcoming Encounters Date Type Department Care Team (Late st Contact Info) Description 09/02/2024 1:00 PM EST Office Visit [facility] [address] [place] [phone] Jenny Pressley MD [address] [place] [address] 11/25/2024 1:00 PM EST Cardiac Studies Cardiac Studies, [facility] [address] [facility] [place] [address] 12/06/2024 2:30 PM EST Office Visit Cardiology, [facility] [address] [facility] [place] [address] Sebastian Santiago, [address] [place] [address] 01/30/2025 12:20 PM EDT Office Visit [facility] [address] [facility] [place] [phone] Jenny Pressley MD [address] [place] [address] Health Maintenance Due Date Last Done Comments Pneumococcal Vaccine: 65+ Years (1 of 2 - PCV) 1960 Mammogram 1994 Cologuard 1999 Fecal Occult Blood Test 1999 Sigmoidoscopy 1999 Colonoscopy 06/24/2021 06/24/2016, 06/24/2016 Colorectal Cancer Screening 06/24/2021 Adult Wellness Visit 11/25/2023 11/25/2022 COVID-19 Vaccine ( season) 2024 Influenza Vaccine (FLU shot) (#1) 2024 Depression Screening 2024 2023, 01/30/2015 (Declined) GFR 01/21/2025 01/22/2024, 03/0 11/2023, 12/07/2023, Additional history exists Albumin/Creatinine Ratio 05/18/2026 [...] Power of Attor kathy? No Care Teams Physician Internist Relationship Specialty Start Date End Date Jenny Pressley MD [address] [place] [address] PCP - General Internal Medicine 11/20/23 documented as of this encounter
--- OUTSIDE RECORDS SUMMARY | 2024-09-27 11:09 | External Medical Summary | Summary of Care ---
Author Name Unknown Organization [facility] Address [address] [place] [address] Phone [phone] Care Team Providers Care Box Fabricator Name Role Phone Jenny Pressley MD Primary Care Provider [phone] Reason for Visit * Reason Onset Date Comments Med Request 07/21/2024 Gout Encounter Details Date Type Department Care Team ([facility] st Contact Info) Description 07/21/2024 Telephone [facility] [address] [place] [address] Jenny Pressley MD [address] [place] [address] Med Request (Gout ) Allergies [...] and is unable to sleep. Please advise. [facility] pharmacy documented in this encounter Plan of Treatment Upcoming Encounters Date Type Department Care Team (Late st Contact Info) Description 09/02/2024 1:00 PM EST Office Visit [facility] [address] [place] [address] Jenny Pressley MD [address] [place] [address] 11/25/2024 1:00 PM EST Cardiac Studies [facility] Studies, [facility] [place] [address] 12/06/2024 2:30 PM EST Office Visit [facility]iology, [facility] [address] [facility] [place] [address] Sebastian Santiago, [address] [place] [address] Health Maintenance Due Date Last Done Comments [...] Power of Attor kathy? No Care Teams Box Fabricator Relationship Specialty Start Date End Date Jenny Pressley MD [address] [place] [address] PCP - General Internal Medicine 11/20/23 documented as of this encounter
--- OUTSIDE RECORDS SUMMARY | 2024-09-27 11:09 | External Medical Summary | Summary of Care ---
Author Name Unknown Organization [facility] Address [address] [facility] [place] [address] Phone [phone] Care Team Providers Care Musical Instrument Maker Name Role Phone Jenny Pressley MD Primary Care Provider [phone] Encounter Details Date Type Department Care Team (Late st Contact Info) Description 06/28/2024 1:00 PM EDT Telemedicine Nutrition & Weight Management, [facility] [address] [place] [id number] Corrina Callahan PA-C [address] [place] [id number] Morbid obesity due to excess calories (HCC)* Allergies Active Allergy Reactions Criticality Noted Date [...] as of this encounter (statuses as of 06/28/2024) Medications Medication Sig Dispensed Refills Start Date [...] WITH FOOD.. 60 Tablet 3 06/08/2024 Active documented as of this encounter (statuses as of 06/28/2024) Active Problems Problem Noted Date Diagnosed Date [...] as of this encounter (statuses as of 06/28/2024) Resolved Problems Problem Noted Date Diagnosed Date [...] as of this encounter (statuses as of 06/28/2024) Immunizations Name Administration Dates Next Due PPD [...] as of this encounter Progress Notes * Corrina Callahan PA-C - 06/28/2024 1:04 PM EDT [facility] Note Behavior Class Patient location: HOME. I was in a hospital or clinic location. After connecting through televideo,patient was verified with two unique identifiers. Patient (or authorized legal life assurance representative) was then informed that this was a Telemedicine visit and being conducted confidentially over secure lines. Methods to assure confidentiality were taken. Patient acknowledged consent and understanding of pr ivacy and security of the Telemedicine visit. The patient agreed to participate. There are no exam notes on file for this visit. Ramona Lit Stringer presents in follow up to the comprehensive weight management clinic. The patientis a 68 year old female Wt Readings from Last 6 Encounters: 05/12/24 116.6 kg (257 lb) 05/11/24 116.7 kg (257 lb 4.8 oz) 05/05/24 117.9 kg (260 lb) 04/20/24 117.4 kg (258 lb 13.1 oz) 04/19/24 117.4 kg (258 lb 12.8 oz) 04/11/24 110.1 kg (242 lb 11.6 oz) Patient is receiving ongoing education regarding dietary and physical modifications for weight loss. Patient is interested in the following treatment options for obesity: surgical options including Mary Lou-en-Y gastric bypass, biliopancreatic diversion with duodenal switch, or laparoscopic sleeve gastr ectomy. - Initial clinic visit 04/19/24. Weight 258 lbs Height 65.65" Body mass index is 42.22 kg/m. 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 -self directed: keto -commercial: Atkins - lost about 60lbs -medication: none Patient Active Problem List Diagnosis ADVANCE DIRECTIVE [...] reduced ejection fraction and diastolic dysfunction (HCC) Review of Systems: The patient denies any chest pain, shortness of breath, palpitations or ankle edema. Since the lastvisit there have been no problems with Abdominal pain / cramps and Diarrhea. Current Medications: Current Outpatient Medications Medication Sig Dispense Refill [...] 1 Tablet by mouth in the morning. HYDROcodone-Acetaminophen 7.5-300 MG Oral Tablet Take 1 Tablet by mouth every 8 hours as needed forPain, Severe. 60 Tablet 0 levoFLOXacin 500 MG Oral Tablet Take 1 Tablet by mouth in the morning. (Patient not taking: Reported on 05/25/2024) 10 Tablet 0 Cetirizine HCl 10 MG Oral Tablet (ZyrTEC) Take 1 Tablet by mouth in the morning. 90 Tablet 3 Diclofenac Sodium 75 MG Oral Tablet Delayed Release (Voltaren) TAKE 1 TABLET BY MOUTH DAILY IN THE MORNING AND BEFORE BEDTIME TAKE WITH FOOD.. 60 Tablet 3 No current facility-administered medications for this visit. Water intake: yes Current diet: Breakfast-- 2 eggs and 1 toast Snack-- peach or banana Lunch-- soup or sandwich - increasing protein Snack-- skips or watermelon Dinner-- meat, veggie or salad Snack-- skips or rice cake Drinks-- unsweet tea with lemon, water, 1 serving juice Meals Away from Home-- 1x per week Type of exercise: ADL and trying to increase activity Weight loss Pharmacotherapy: no There were no vitals taken for this visit. PHYSICAL EXAMINATION: General: Patient awake alert and oriented. Patient is well appearing and in no acute distress. Skin: No rashes. HEENT: Head is atraumatic, normocephalic. EOMs intact Abdomen: Obese Neuro: No focal deficits Psych: Appropriate mood and affect. Assessment and Plan: Abnormal weight gain / There is no height or weight on file to calculate BMI. / Morbid obesity : - Would like to proceed with surgical options including Mary Lou-en-Y gastric bypass, biliopancreatic diversion with duodenal switch, or laparoscopic sleeve gastrectomy - Barriers are consistency - Motivators are feeling better overall, avoiding/reducing co-morbid conditions - The patient was encouraged to to avoid all fruit juices and regular sodas, consume at least 64 ounces of water per day, keep food logs and get weighed on a weekly basis. They were encouraged to increase physical activity as prescribed. - Handouts regarding nutrition and physical activity were provided, as appropriate. Goals for next month: - Practice what you learned in the classes - Continue with current diet plan - Continue with your exercises and increase as much as possible Diagnoses and all orders for this visit: Morbid obesity due to excess calories (HCC) -enrolled in surgery program Abnormal weight gain Gout of big toe WILL on CPAP - BiPAP - do not advise stopping CPAP on own--resolution of WILL typically requires significant wt loss; recommend following up with sleep med should CPAP become uncomfortable as settings & mask may need to be adjusted Hypertensive heart disease with chronic systolic congestive heart failure (HCC) -will need cardiology clearance Dilated cardiomyopathy (HCC) HTN, goal below 140/90 -continue current regimen The Possibility of bariatric surgery: The patient attended Behavior Class today regarding bariatric surgery. Patients were provided with bariatric educational materials. We reviewed the steps that need to be completed prior to moving on to see the surgeon. These steps include: tobacco cessation, modest weight loss, attendance at 2 support groups, payment of program fee, required educational sessions and completion of all ordered medical testing. The behavioral changes required for success after bariatric surgery were reviewed including: eatingslowly, eating small frequent meals, conversion to sugar-free beverages, drinking sufficient water but never with a meal, and caffeine reduction. Information regarding postoperative diet progression (stages 1 thru 4) was provided. Specifics regarding portion guidelines, fat and sugar restriction, fluid and protein requirements were reviewed. The patient was made aware of the importance of adherence to diet for successful weight loss management and prevention of postoperative complications. The need for vitamin and mineral supplementation postoperatively was reviewed. The 2-week pre-surgery liquid diet was also reviewed. Patients are aware they will need a GREEN LIGHT from the Registered Dietitian to proceed to see the surgeon. Behavioral Medicine evaluation was discussed. The patients are aware of the need for a GREEN light to progress to see the surgeon. The patient was instructed to call in the meantime with any concerns or questions prior to patient's upcoming visit. The patient agreed to try the plan as discussed and return in 1 month. They were encouraged to callor send a patient portal message in the meantime with any questions or concerns prior to their nextclinic visit. I spent a total of 20 minutes on the date of service in preparation, delivery, and documentation ofthe care provided to Ramona Stringer excluding any time spent in the performance of separately billed services. This included but was no limited to providing counseling about the benefits of weight loss, about their nutritional status, detailed explanations about calorie count, types of nutrients to choose, and composition of the meals. Motivational interview provided in order to prepare the patient to achieve future goals. Corrina [place], MPH [facility], [facility] ([facility]) documented in this encounter Plan of Treatment Upcoming Encounters Date Type Department Care Team (Late st Contact Info) Description 06/29/2024 12:30 PM EDT Office Visit Audiology [facility] [address] [id number] Corazon Meza Au.D. [address] [place] [id number] 06/29/2024 2:00 PM EDT Office Visit Otolaryngology [facility] [address] [address] Vikash Goddard PA-C [address] [place] [address] 09/02/2024 1:00 PM EST [facility] [address] [facility] [phone] Jenny [facility] [address] [facility] [address] 11/25/2024 1:00 PM EST Cardiac Studies Cardiac Studies, [facility] [address] [place] [address] 12/06/2024 2:30 PM EST Office Visit Cardiology, [facility] [address] [place] [address] Sebastian Santiago DO [address] [place] [address] Health Maintenance Due Date Last Done Comments [...] as of this encounter Visit Diagnoses Diagnosis Morbid obesity due to excess calories (HCC)- Primary documented in this encounter Advance Directives * [...] Power of Attor kathy? No Care Teams Musical Instrument Maker Relationship Specialty Start Date End Date Jenny Pressley MD [address] [facility] [place] [id number] PCP - General Internal Medicine 11/20/23 documented as of this encounter
--- OUTSIDE RECORDS SUMMARY | 2024-09-27 11:10 | External Medical Summary | Summary of Care ---
Author Name Unknown Organization [facility] Address [address] [place] [address] Phone [phone] Care Team Providers Care Color Receiver Name Role Phone Jenny Pressley MD Primary Care Provider [phone] Reason for Referral * Precert (Within 10 days (routine)) - Authorized Specialty Diagnoses / Procedures Referred By Contac t Referred To Contact Cardiac Studies Diagnoses Chronic heart failure with reduced ejection fraction and diastolic dysfunction (HCC) Atrial fibrillation status post cardioversion (HCC) HTN, goal below 140/90 Procedures ECHO, COMPLETE (2D), TRANS-THORACIC Gayle Marx PA-C [address] [place] [address] Referral ID Status Reason Start Date Expiration Date V isits Requested Visits Authorized [id number] Authorized Precert 11/25/2024 999 999 Reason for Visit * Reason Comments Follow Up Encounter Details Date Type Department Care Team (Latest Contact Info) Description 05/25/2024 3:30 PM EDT Office Visit Cardiology, [facility] [address] [place] [address] Gayle Marx PA-C [address] [place] [address] PAF (paroxysmal atrial fibrillation) (HCC)*; Chronic heart failure with reduced ejection fraction and diastolic dysfunction (HCC); Atrial fibrillation status post cardioversion (HCC); HTN, goal below 140/90 Allergies Active Allergy Reactions Criticality Noted Date [...] as of this encounter (statuses as of 06/09/2024) Medications Medication Sig Dispensed Refills Start Date [...] Anxiety. Active Spironolactone 25 MG Oral Tablet (Aldactone)Indicat ions:Atrial fibrillation status post cardioversion (HCC),NICM (nonischemic cardiomyopathy) [...] MCG/ACT Nasal Suspension (Flonase)Indicatio ns:Acute maxillary sinusitis, unspecified SPRAY 2 SPRAYS INTO EACH NOSTRIL IN THE MORNING 48 mL 1 4 Active Additional Information Patient taking differently: PRN, Allergies, Reported on 05/11/2024 Metoprolol Tartrate 25 MG Oral Tablet (Lopressor) Take 1 Tablet by mouth in the morning. Active HYDROcodone-Acetam inophen 7.5-300 MG Oral Tablet Take 1 Tablet by mouth every 8 hours as needed for Pain, Severe. 60 Tablet 4 Active levoFLOXacin 500 MG Oral TabletIndications: Chronic otorrhea, bilateral Take 1 Tablet by mouth in the morning. 10 Tablet 4 Active Additional Information Patient not taking.Reported on 05/25/2024 Diclofenac Sodium 75 MG Oral Tablet Delayed Release (Voltaren) Take 1 Tablet by mouth in the morning and 1 Tablet before bedtime. With food.. 60 Tablet 3 4 06/08/20 24 Discontinued documented as of this encounter (statuses as of 06/09/2024) Active Problems Problem Noted Date Diagnosed Date [...] as of this encounter (statuses as of 06/09/2024) Resolved Problems Problem Noted Date Diagnosed Date [...] as of this encounter (statuses as of 06/09/2024) Immunizations Name Administration Dates Next Due PPD [...] Sign Reading Time Taken Comments Blood Pressure 120/88 05/25/2024 3:12 PM EDT Pulse 76 05/25/2024 3:12 PM EDT Temperature - - Respiratory Rate 12 05/25/2024 3:12 PM EDT Oxygen Saturation - - Inhaled Oxygen Concentration - - Weight - - Height - - Body Mass Index - - documented in [...] as of this encounter Progress Notes * Gayle Marx PA-C - 06/09/2024 3:11 PM EDT 06/09/2024 Cardiology F/U: HPI: patient is a 68 year old female here today for routine cardiology f/u. Last clinic evaluation approx 4 months ago with PAIGE Montes. This is her first visit with the undersigned. Primary [employer] District Clerk: Dr. 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 Saldivar 11/24/2023 [id number] score of 4 (age, female, HTN, CHF) Hypertension with history of hypotension Hyperlipidemia Diffuse large B-cell lymphoma WILL on BiPAP Iron-deficiency anemia History of GI bleed Gout Mildly dilated ascending aorta measuring 4.1 cm Since last visit patient stopped amiodarone due to side effects. Also stopped anticoagulation per her preference. Repeat echo was completed at [facility] [place], limited images. LV function mildly reduced. Contrast notperformed. Repeat echo requested bu patient declined to schedule as she does not wish to use the contrast. She presents today feeling well. Declined to be weighed. BP controlled No chest pain, shortness of breath, palpitations, dizziness, syncope or near syncope. No orthopnea,PND, or increased lower extremity edema. No fever, chills, cough, hematochezia, melena, or hemoptysis. Review of Systems: See HPI for pertinent positives. All others negative, other than those noted in HPI. Patient Active Problem List Diagnosis ADVANCE DIRECTIVE [...] shoulder Gout of big toe Elevated troponin Dilatation of colon Dilated cardiomyopathy (HCC) Obesity, morbid (more than 100 lbs over ideal weight or BMI > 40) (HCC) Hypertensive heart disease with chronic combined systolic and diastolic congestive heart failure (HCC) Pulmonary hypertension, unspecified (HCC) Social History Tobacco Use Smoking status: Never Passive exposure: Past Smokeless tobacco: Never Tobacco comments: no passive smoke exposures Vaping Use Vaping status: Never Used Substance Use Topics Alcohol use: Not Currently [...] (toprol) Per pt., made heart "pound" Sotalol Current Outpatient Medications Medication Sig Dispense Refill [...] facility-administered medications for this visit. Physical Exam: BP 120/88 | Pulse 76 | Resp 12 Declined weight General: No acute distress. A+Ox3. HEENT: Normocephalic. Atraumatic. Conjunctiva and sclera clear. NECK: No carotid bruits. No JVD. Carotid upstrokes are brisk. Heart: RRR. S1 and S2 noted without murmur, rubs, gallops. Lungs: Clear to auscultation. No wheezes, rhonchi, rales. Abdomen: Normal bowel sounds. Soft. Nontender. No masses or organomegaly. No abdominal bruits. Extremities: Chronic bilateral lymphedema No clubbing or cyanosis. Pulses: radial=2/4, posterior tibial=2/4, dorsalis pedis = 2/4. NEURO: No focal deficits. PSYCH: Normal. Lab data/imaging study review: Echo report reviewed dated March 2024: Interpretation Summary The examination is limited quality but adequate for evaluation of the referral indication. Echo enhancing agent was not administered. LV function appears mildly reduced with global hypokinesis. Recommend repeat limited echo, at no charge to the patient, with echo enhancing agent to opacify LVendocardium and assess LV EF/wall motion. Mild aortic valve regurgitation is present. Mild mitral regurgitation is present. The proximal ascending thoracic aorta is mildly enlarged- it measures 4.1 cm. CRYSTAL 11/17/2023: EF <20% JOSE no thrombus Echocardiogram: 10/21/2023: The qualitative LV ejection fraction is [...] indicates an elevated right atrial pressure of 15 mmHg. Moderate pulmonary hypertension is present. Echo 12/11/2014: EF 45% Dilated LV Global hypokinesis RV dilated Bi atrial enlargement Mild AI Moderate MR and TR RVSP 35 mmHg Latest Reference Range & Units 01/22/24 10:28 Triglycerides <=174 mg/dL 163 Cholesterol <200 mg/dL 236 (H) Non-HDL Cholesterol <=159 mg/dL 184 (H) HDL Cholesterol >49 mg/dL 52 LDL Cholesterol <=129 mg/dL 151 (H) (H): Data is abnormally high Impression/Plan: This is a 68 year old female who is being evaluated in the cardiology office for ongoing care/risk management for the below diagnoses. 1. Chronic heart failure with reduced ejection fraction and diastolic dysfunction (HCC) 2. 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 Nuclear stress and echo ordered to rule out ischemia--patient is declining at this time. 2. Continue goal-directed medical therapy with metoprolol succinate (intolerant to higher doses) and spironolactone as ordered. History of angioedema with lisinopril. 3. Euvolemic on exam. Continue torsemide 10 mg daily-- repeating a BMP following today's appointment to reassess potassium level. -repeat echo was limited due to lack of contrast/Definity used. Patient declines repeat echo with contrast at this time. LVEF does appear to have improved from prior echo in 09/2023. Now only mildly reduced? -repeat echo in 6 months at [facility] in hopes we have better image quality 3. Paroxysmal atrial fibrillation (HCC) -Paroxysmal atrial fibrillation -Status post CRYSTAL guided DCCV 11/14 due to hospitalization for Afib and CHF -History of PVI ablation 12/18/2014 with redo PVI ablation at [place] with Dr. Saldivar 11/24/2023 -[id number] score of 4 (age, female, HTN, CHF) -EKG 12/07/2023 with normal sinus rhythm, QTC of 477 milliseconds. Patient discontinued amiodarone and Eliquis -now on metoprolol tartrate No known recurrence 4. HTN, goal below 140/90 -Controlled. No medication changes needed. 5. Dyslipidemia, goal LDL below 100 -uncontrolled -diet/exercise recommended. Monitor. Patient not interested in therapy We discussed her echo results. Imaging limited Recommend contrast, but patient declines. [facility] is agreeable. Repeat echo in 6 months. Does appear LV function has improved, not < 20% Continue current meds otherwise listed above. Patient is being evaluated in the cardiology office for ongoing care/risk management for non ischemic cardiomyopathy; PAF I spent a total of 30 minutes on the date of service in preparation, delivery, and documentation ofthe care provided to Ramona Stringer excluding any time spent in the performance of separately billed services. The patient agrees to the above plan and will call with additional questions or concerns. ER with all emergencies advised. Follow-up: Return in about 6 months (around 11/25/2024). | Check-out note: Schedule echo in 6 months F/U with Dr. Santiago after echo Gayle Marx PA-C Department of Cardiology This chart was completed in part utilizing [employer] Speech Voice Recognition Software. Grammatical errors, random word insertions, prounoun errors, and incomplete sentences are an occasional consequence of this system due to software limitations, ambient noise, and hardware issues. Any formal questions or concerns about the content, text, or information contained within the body of this dictation should be directly addressed to the provider for clarification. documented in this encounter Nursing Notes * Ofelia Francisco CMA - 05/25/2024 3:09 PM EDT Chief Complaint Patient presents with Follow Up Examination Room: 1 Name: Ramona Stringer Date of : (1955). Reason for Visit: follow up Interim Hospitalization(s): denies Problems/Concerns: denies Chest Pain/SOB: denies [facility] Discussed: Yes [facility] is a way you can talk to your provider online through e-mail. Would you like to sign up? I can activate it for you? ALREADY ACTIVE Patient was instructed to not get up on the exam table until directed and assisted by their provider; patient is to remain seated in the chair/ wheelchair/ exam table for fall prevention and safety reasons. Patient is aware to have assistance to step down off exam table with personnel. Patient voiced full comprehension of instructions. documented in this encounter Plan of Treatment Upcoming Encounters Date Type Department Care Team (Late st Contact Info) Description 06/21/2024 10:00 AM EDT Telemedicine Nutrition & Weight Management, [facility] [address] [address] [facility], [facility] Class 2 [facility] [address] [place] [address] 06/28/2024 1:00 PM EDT Telemedicine Nutrition & Weight Management, [facility] [address] [address] Corrnia Callahan PA-C [address] [address] 06/29/2024 12:30 PM EDT Office Visit Audiology [facility] [address] [address] Corazon Meza Au.D. [address] [place] [address] 06/29/2024 1:30 PM EDT Office Visit Interventional Pain Center, [facility] [address] [place] [address] Aidee Bernstein MD [address] [place] [address] 06/29/2024 2:00 PM EDT Office Visit Otolaryngology [facility] [address] [place] [address] Vikash Goddard PA-C [address] [place] [address] 09/02/2024 1:00 PM EST Office Visit [facility] [address] [place] [id number] Jenny Pressley MD [address] [place] [address] 09/30/2024 2:30 PM EST Office Visit [facility]ol[facility]ology [facility] [place] [address] Femi Bal DO [address] [facility] [place] [address] 11/25/2024 1:00 PM EST Cardiac Studies Cardiac Studies, [facility] [place] [address] 12/06/2024 2:30 PM EST Office Visit Cardiology, [facility] [place] [address] Sebastian Santiago DO [address] [place] [address] Scheduled Orders Name Type Priority Associated Diagnoses Orde r Schedule BASIC METABOLIC PANEL Lab Routine Chronic heart failure with reduced ejection fraction and diastolic dysfunction (HCC) Atrial fibrillation status post cardioversion (HCC) HTN, goal below 140/90 Expected: 05/25/2024, Expires: 05/25/2025 MAGNESIUM Lab Routine Chronic heart failure with reduced ejection fraction and diastolic dysfunction (HCC) Atrial fibrillation status post cardioversion (HCC) HTN, goal below 140/90 Expected: 05/25/2024, Expires: 05/25/2025 ECHO, COMPLETE (2D), TRANS-THORACIC Echocardiology Routine Chronic heart failure with reduced ejection fraction and diastolic dysfunction (HCC) Atrial fibrillation status post cardioversion (HCC) HTN, goal below 140/90 Expected: 11/25/2024 (Approximate), Expires: 06/25/2026 Health Maintenance Due Date Last Done Comments Pneumococcal Vaccine: 65+ Years (1 of 2 - PCV) 1960 Mammogram 1994 Cologuard 1999 Fecal Occult Blood Test 1999 Sigmoidoscopy 1999 Colonoscopy 06/24/2021 06/24/2016, 06/24/2016 Colorectal Cancer Screening 06/24/2021 COVID-19 Vaccine ( season) 2023 Adult Wellness Visit 11/25/2023 11/25/2022 Influenza Vaccine (FLU shot) (#1) 2024 Depression Screening 2024 2023, 01/30/2015 (Declined) GFR 01/21/2025 01/22/2024, 03/11/2023, 12/07/2023, Additional history exists Albumin/Creatinine Ratio 05/18/2026 05/18/2023 Diabetes Screening 01/21/2027 01/22/2024, 0 12/26/2023, 12/07/2023, Additional history exists Lipid Panel 01/21/2029 01/22/2024, 09/26, 05/18/2023, Additional history exists RETIRED - COLONOSCOPY-EVERY 5 YRS AGES 18-100 Discontinued 06/24/2016, 06/24/2016 DTaP,Tdap,and Td Vaccines Discontinued DXA Scan Discontinued HPV (Gardasil) [...] (paroxysmal atrial fibrillation) (HCC)- Primary Atrial fibrillation Chronic heart failure with reduced ejection fraction and diastolic dysfunction (HCC) Atrial fibrillation status post cardioversion (HCC) Cardiac complications HTN, goal below 140/90 Unspecified essential hypertension documented in this encounter Advance Directives * [...] Power of Attor kathy? No Care Teams Color Receiver Relationship Specialty Start Date End Date Jenny Pressley MD [address] [place] [address] PCP - General Internal Medicine 11/20/23 documented as of this encounter
--- OUTSIDE RECORDS SUMMARY | 2024-09-27 11:10 | External Medical Summary | Summary of Care ---
Author Name Unknown Organization [facility] Address [address] [place] [address] Phone [phone] Care Team Providers Care Law Reporter Name Role Phone Jenny Pressley MD Primary Care Provider [phone] Reason for Visit * Reason Comments eRx-Medication Refill Encounter Details Date Type Department Care Team (Late st Contact Info) Description 06/07/2024 Refill [facility] [address] [place] [address] Jenny Pressley MD [address] [place] [address] Allergies Active Allergy Reactions Criticality [...] as of this encounter (statuses as of 06/08/2024) Medications Medication Sig Dispensed Refills Start Date [...] WITH FOOD.. 60 Tablet 3 4 Active Diclofenac Sodium 75 MG Oral Tablet Delayed Release (Voltaren) Take 1 Tablet by mouth in the morning and 1 Tablet before bedtime. With food.. 60 Tablet 3 4 06/08/20 24 Discontinued documented as of this encounter (statuses as of 06/08/2024) Active Problems Problem Noted Date Diagnosed Date Pulmonary hypertension, unspecified 03/15/2024 Hypertensive heart disease w ith chronic combined systolic and diastolic congestive heart failure 02/29/2024 Obesity, morbid (more than 1 00 lbs over ideal weight or BMI > 40) 11/27/2023 Dilated cardiomyopathy 10/26/2023 Dilatation of colon 10/25/2023 Elevated troponin 10/20/2023 Gout of big toe [...] as of this encounter (statuses as of 06/08/2024) Resolved Problems Problem Noted Date Diagnosed Date Resolved Date Depression, unspecified 11/27/2023 08/0 05/2024 Diarrhea 10/25/2023 05/25/2024 Ileus, postoperative 10/23/2023 024 Paroxysmal atrial fibrillation 10/21/2023 11/27/2023 Pneumonia 10/21/2023 05/25/2024 Severe sepsis with acute organ dysfunction 10/21/2023 11/27/2023 Fever of unknown origin 10/21/202304/27 Body mass index (BMI) of 40. 0 to 44.9 in adult 10/05/2023 05/05/2024 Overview: Per Obesity protocol Morbid (severe) obesity due to excess calories 11/05/2022 11/17/2022 Diverticulitis of colon 10/07/202204/27 10/2023 Hypertensive heart disease w ith chronic systolic [...] as of this encounter (statuses as of 06/08/2024) Immunizations Name Administration Dates Next Due PPD [...] encounter Miscellaneous Notes * Telephone Encounter - Matthew Flowers [facility] - 06/08/2024 1:04 PM EDTSigned Prescriptions: Disp Refills Diclofenac Sodium 75 MG Oral Tablet Delaye*60 Tab*3 Sig: TAKE 1 TABLET BY MOUTH DAILY IN THE MORNING AND BEFORE BEDTIME TAKE WITH FOOD..Authorizing Provider: Jenny PRESSLEY User: MATTHEW FLOWERS documented in this encounter Plan of Treatment Upcoming Encounters Date Type Department Care Team (Late st Contact Info) Description 06/21/2024 8:40 AM EDT Telemedicine Nutrition & Weight Management, [facility] [address] [address] Corrina Callahan PA-C [address] [address] 06/21/2024 10:00 AM EDT Telemedicine Nutrition & Weight Management, [facility] [address] [facility] [place] [address] Faith Hutson Class 2 [facility] [address] [facility] [place] [address] 06/29/2024 12:30 PM EDT Office Visit Audiology [facility] [address] [facility] [place] [address] Corazon Meza Au.D. [address] [place] [address] 06/29/2024 1:30 PM EDT Office Visit Interventional Pain Center, [facility] [address] [facility] [place] [address] Aidee Bernstein MD [address] [place] [address] [place] [address] 06/29/2024 2:00 PM EDT Office Visit Otolaryngology [facility] [address] [facility] [place] [address] Vikash Goddard PA-C 132 [facility] [place] [address] 09/02/2024 1:00 PM EST Office Visit [facility] [address] [facility] [phone] Jenny Pressley MD [address] [facility] [place] [address] 09/30/2024 2:30 PM EST Office Visit Otolaryngology [facility] [address] [facility] [place] [address] Femi Bal, DO [address] [place] [address] 11/25/2024 1:00 PM EST Cardiac Studies Cardiac Studies, [facility] [address] [place] [address] 12/06/2024 2:30 PM EST Office Visit Cardiology, [facility] [address] [place] [address] Sebastian Santiago, DO [address] [place] [address] Health Maintenance Due Date Last Done Comments [...] Power of Attor kathy? No Care Teams Law Reporter Relationship Specialty Start Date End Date Jenny Pressley MD [address] [place] [address] PCP - General Internal Medicine 11/20/23 documented as of this encounter
--- OUTSIDE RECORDS SUMMARY | 2024-09-27 11:10 | External Medical Summary | Summary of Care ---
Author Name Unknown Organization [facility] Address [address] [place] [address] Phone [phone] Care Team Providers Care Swahili Teacher Name Role Phone Jenny Pressley MD Primary Care Provider [phone] Reason for Visit * Reason Comments Follow Up Patient is here toda y for a 3 month follow up.Patient states she has been having vertigo; patient states she has been having an ongoing ear issue. Patient states it started two weeks ago and occurs when she transitions from laying to sitting. Encounter Details Date Type Department Care Team (Latest Contact Info) Description 06/02/2024 4:00 PM EDT Office Visit [place] [address] [place] [address] Jenny Pressley MD [address] [place] [address] Other chronic sinusitis*; DDD (degenerative disc disease), lumbar; Hypertensive heart disease with chronic combined systolic and diastolic congestive heart failure (HCC); Pulmonary hypertension, unspecified (HCC); WILL on CPAP; Obesity, morbid (more than 100 lbs over ideal weight or BMI > 40) ([facility]); Dilated cardiomyopathy ([facility]); HTN, goal below 140/90; Chronic allergic rhinitis; Controlled substance agreement signed; Atrial fibrillation with rapid ventricular response ([facility]) Allergies Active Allergy Reactions Criticality [...] as of this encounter (statuses as of 06/02/2024) Medications Medication Sig Dispensed Refills Start Date [...] the morning. 90 Tablet 3 01/18/2024 Active Diclofenac Sodium 75 MG Oral Tablet Delayed Release (Voltaren) Take 1 Tablet by mouth in the morning and 1 Tablet before bedtime. With food.. 60 Tablet 3 02/15/2024 Active Additional Information Patient taking differently:75 mg OralPRN, Pain, With food., Reported on 05/11/2024 Bumetanide 1 MG Oral Tablet (Bumex) Take [...] the morning. 90 Tablet 3 06/02/2024 Active documented as of this encounter (statuses as of 06/02/2024) Active Problems Problem Noted Date Diagnosed Date [...] as of this encounter (statuses as of 06/02/2024) Resolved Problems Problem Noted Date Diagnosed Date [...] as of this encounter (statuses as of 06/02/2024) Immunizations Name Administration Dates Next Due PPD [...] Sign Reading Time Taken Comments Blood Pressure 130/80 06/02/2024 4:00 PM EDT Pulse 86 06/02/2024 4:00 PM EDT Temperature 36.3 C (97.4 F) 06/02/2024 4:00 PM ED T Respiratory Rate 16 06/02/2024 4:00 PM EDT Oxygen Saturation 94% 06/02/2024 4:00 PM EDT Inhaled Oxygen Concentration - - Weight - - Height 166.8 cm (5' 5.67") 06/02/2024 4:00 PM ED T Body Mass Index - - documented in [...] as of this encounter Progress Notes * Jenny Pressley MD - 06/02/2024 4:10 PM EDT Subjective Ramona Stringer is a 68 year old female. Chief Complaint Patient presents with Follow Up Patient is here today for a 3 month follow up. Patient states she has been having vertigo; patient states she has been having an ongoing ear issue. Patient states it started two weeks ago and occurs when she transitions from laying to sitting. HPI: Here for 3 mo routine check up Lower back pain, to abd Had MRI done in apr ( PT was causing more severe pain ) Taking vicodin just as needed , rarely taking Will see pain medicine in sep back brace, helping Known CMP, systolic CHF, afib, s/p ablation , f/ with cardio Taking all her meds BP stable, HR - controlled , today regular WILL on BiPAP C/o dizziness, recurrent mild Known chronic allergy sinus problem Recently took Abx per ENT Taking singulair , will add zyrtec , spray PMH: Patient Active Problem List Diagnosis ADVANCE [...] ideal weight or BMI > 40) (HCC) Depression, unspecified Hypertensive heart disease with chronic combined systolic and diastolic congestive heart failure (HCC) Pulmonary hypertension, unspecified (HCC) Current Outpatient Medications Medication Sig Dispense Refill [...] and 1 Tablet before bedtime. With food.. (Patient taking differently: Take 1 Tablet by mouth as needed for Pain. With food.) 60 Tablet 3 Bumetanide 1 MG Oral Tablet [...] as needed forPain, Severe. 60 Tablet 0 Cetirizine HCl 10 MG Oral Tablet (ZyrTEC) Take 1 Tablet by mouth in the morning. 90 Tablet 3 levoFLOXacin 500 MG Oral Tablet Take 1 Tablet by mouth in the morning. (Patient not taking: Reported on 05/25/2024) 10 Tablet 0 No current facility-administered medications for [...] performed by Eden Foreman DO at [facility] CREATE EARDRUM OPENING,LOCAL ANESTH Tympanostomy tubes; cholesteotoma repair EGD, FLEXIBLE, DIAGNOSTIC N/A 06/10/2016 normal/ESOPHAGOGASTRODUODENOSCOPY (EGD), FLEXIBLE, TRANSORAL, DIAGNOSTIC performed by Eden Foreman DO at [facility] EXPLORATION OF ABDOMEN N/A 07/24/2016 EXPLORATORY LAPAROTOMY performed by Eden Hassan DO at OR [facility] PARTIAL REMOVAL OF THYROID LOBE had a lump at age 15-16- assumes it was benign REMOVAL OF SMALL INTESTINE W/FUSION N/A 07/24/2016 ENTERECTOMY SMALL BOWEL RESECTION performed by Eden Hassan DO at OR [facility] REMOVE TONSILS & ADENOIDS, UNDER 12 T & A, age<12 REPAIR OF NASAL SEPTUM ? 2001 Nasal Septum Repair - Dr. Hernández [facility] MASTOID 12/16/2011 TYMPANOPLASTY MASTOIDECTOMY WITHOUT OSSICULAR RECONSTRUCTION performed by SEA MCCARTY at OR [facility] Review of patient's allergies indicates: Allergen Reactions [...] Mother pacer Hypertension Mother Heart Disorder Father [place] Heart Disorder Brother A.fib Mental Disorder Daughter [...] of Health Financial Resource Strain: Low Risk (2023) Financial Resource Strain Do you have any trouble paying for your medications, or do you think you might in the future? (Adult - for ages 18 years and over): No Does your family have trouble paying for medicine? (Household - for ages 0-17 years): Not on file Food Insecurity: No Food Insecurity (2023) Food Insecurity Do you need food for [...] on file Transportation Needs: No Transportation Needs (2023) Transportation Needs Do you have trouble getting [...] - for ages 18 years and over): Not on file Do you (or your family) have trouble finding or paying for a ride (transportation)? (Household - for ages 0-17 years): Not on file Social Connections: Socially Integrated (2023) Social Connections How often do you feel lonely or isolated from those around you? (Adult - for ages 18 years and over): Never Housing Stability: Low Risk (2023) Housing Stability Do you currently live in a longterm or have no steady place to sleep [...] - for ages 18 years and over): Not on file Are you (or your family) homeless or worried that you might be in the future? (Household - for ages0-17 years): Not on file Review of Systems Constitutional: Positive for activity change (lower back but slightly better) and fatigue. Negativefor appetite change, chills, diaphoresis, fever and unexpected weight change. HENT: Positive for congestion, ear pain, sinus pressure and tinnitus. Respiratory: Negative for cough, chest tightness, shortness of breath and wheezing. Cardiovascular: Positive for leg swelling (mild occ). Negative for chest pain and palpitations. Gastrointestinal: Negative for abdominal distention, abdominal pain, nausea and vomiting. Musculoskeletal: Positive for arthralgias and back pain. Allergic/Immunologic: Positive for environmental allergies. Neurological: Positive for dizziness, light-headedness, numbness and headaches. Psychiatric/Behavioral: Positive for sleep disturbance. Negative for agitation and behavioral problems. The patient is nervous/anxious. Objective BP 130/80 | Pulse 86 | Temp 36.3 C (97.4 F) (Tympanic) | Resp 16 | Ht 1.668 m (5' 5.67") | GwI016% | BMI 41.90 kg/m | BSA 2.32 m Physical Exam Constitutional: Appearance: Normal appearance. She is obese. HENT: Head: Normocephalic and atraumatic. Ears: Comments: Chronic cloudy fluid Worse rt ear today Nose: Congestion present. Eyes: Extraocular Movements: Extraocular movements intact. Cardiovascular: Rate and Rhythm: Normal rate and regular rhythm. Pulmonary: Effort: Pulmonary effort is normal. No respiratory distress. Breath sounds: Normal breath sounds. No stridor. No wheezing, rhonchi or rales. Chest: Chest wall: No tenderness. Musculoskeletal: General: Tenderness present. Right lower leg: No edema. Left lower leg: No edema. Neurological: General: No focal deficit present. Mental Status: She is alert and oriented to person, place, and time. Cranial Nerves: No cranial nerve deficit. Psychiatric: Behavior: Behavior normal. ASSESSMENT/PLAN: Other chronic sinusitis (Primary) DDD (degenerative disc disease), lumbar Hypertensive heart disease with chronic combined systolic and diastolic congestive heart failure (HCC) Pulmonary hypertension, unspecified (HCC) WILL on CPAP Obesity, morbid (more than 100 lbs over ideal weight or BMI > 40) (HCC) Dilated cardiomyopathy (HCC) HTN, goal below 140/90 Chronic allergic rhinitis Controlled substance agreement signed Atrial fibrillation with rapid ventricular response (HCC) Other orders - Cetirizine HCl 10 MG Oral Tablet (ZyrTEC); Take 1 Tablet by mouth in the morning. Follow Up: Return in about 3 months (around 09/02/2024) for Clinic Visit. | For: Clinic Visit Take meds F/u with cardio, F/u with pain medicine Brace for posture Jenny Pressley MD documented in this encounter Nursing Notes * Tabitha Espino MED ASSIST - 06/02/2024 4:04 PM EDT The patient has been properly identified by confirmation of name and date of . Chief Complaint Patient presents with Follow Up Patient is here today for a 3 month follow up. Patient states she has been having vertigo; patient states she has been having an ongoing ear issue. Patient states it started two weeks ago and occurs when she transitions from laying to sitting. documented in this encounter Plan of Treatment Upcoming Encounters Date Type Department Care Team (Late st Contact Info) Description 06/21/2024 8:40 AM EDT Telemedicine Nutrition & Weight Management, [address] [place] [address] Corrina Callahan PA-C [address] [place] [address] 06/21/2024 10:00 AM EDT Telemedicine Nutrition & Weight Management, [facility] [place] [address] [facility] [place] [address] 06/29/2024 12:30 PM EDT Office Visit Audiology [facility] [address] [facility] [place] [address] Corazon Meza Au.D. [address] [place] [address] 06/29/2024 1:30 PM EDT Office Visit Interventional Pain Center, [facility] [address] [facility] [place] [address] Aidee Bernstein MD [address] [place] [address] [place] [address] 06/29/2024 2:20 PM EDT Office Visit Otolaryngology [facility] 132 [facility] [place] [address] Vikash Goddard PA-C [address] [place] [address] 09/02/2024 1:00 PM EST Office Visit [facility] [address] [place] [phone] Jenny Pressley MD [address] [place] [address] 09/30/2024 2:30 PM EST Office Visit Otolaryngology [facility] [address] [place] [address] Femi Bal, DO [address] [place] [address] 11/25/2024 1:00 PM EST Cardiac Studies Cardiac Studies, [facility] [address] [place] [address] 12/06/2024 2:30 PM EST Office Visit Cardiology, [facility] [address] [place] [address] Sebastian Santiago, DO [address] [place] [address] Health Maintenance Due Date Last Done Comments [...] as of this encounter Visit Diagnoses Diagnosis Other chronic sinusitis- Primary DDD (degenerative disc disease), lumbar Degeneration of lumbar or lumbosacral intervertebral disc Hypertensive heart disease with chronic combined systolic and diastolic congestive heart failure (HCC) Pulmonary hypertension, unspecified (HCC) WILL on CPAP Obstructive sleep apnea (adult) (pediatric) Obesity, morbid (more than 100 lbs over ideal weight or BMI > 40) (HCC) Morbid obesity Dilated cardiomyopathy (HCC) Other primary cardiomyopathies HTN, goal below 140/90 Unspecified essential hypertension Chronic allergic rhinitis Allergic rhinitis, cause unspecified Controlled substance agreement signed Encounter for long-term (current) use of other medications Atrial fibrillation with rapid ventricular response (HCC) Atrial fibrillation documented in this encounter [...] Power of Attor kathy? No Care Teams Swahili Teacher Relationship Specialty Start Date End Date Jenny Pressley MD [address] [place] [address] PCP - General Internal Medicine 11/20/23 documented as of this encounter
--- OUTSIDE RECORDS SUMMARY | 2024-09-27 11:11 | External Medical Summary | Summary of Care ---
Author Name Unknown Organization [facility] Address [address] [place] [address] Phone [phone] Care Team Providers Care Risk Control Field Representative Name Role Phone Jenny Pressley MD Primary Care Provider Reason for Visit * Reason Onset Date Comments Health Maintenance 05/31/2024 Encounter Details Date Type Department Care Team (Late st Contact Info) Description 05/31/2024 Telephone [facility] [address] [place] [address] Jenny Pressley MD [address] [place] [address] Health Maintenance Allergies Active Allergy Reactions Criticality Noted Date [...] as of this encounter (statuses as of 05/31/2024) Medications Medication Sig Dispensed Refills Start Date [...] Additional Information Patient not taking.Reported on 05/25/2024 documented as of this encounter (statuses as of 05/31/2024) Active Problems Problem Noted Date Diagnosed Date Pulmonary hypertension, unspecified 03/15/2024 Hypertensive heart disease w ith chronic combined systolic and diastolic congestive heart failure 02/29/2024 Obesity, morbid (more than 1 00 lbs over ideal weight or BMI > 40) 11/27/2023 Depression, unspecified 11/27/2023 Dilated cardiomyopathy 10/26/2023 Dilatation of colon [...] as of this encounter (statuses as of 05/31/2024) Resolved Problems Problem Noted Date Diagnosed Date Resolved Date Diarrhea 10/25/2023 05/25/2024 Ileus, postoperative 10/23/2023 024 Paroxysmal atrial fibrillation 10/21/2023 11/27/2023 Pneumonia 10/21/2023 05/25/2024 Severe sepsis with acute organ dysfunction 10/21/2023 11/27/2023 Fever of unknown origin 10/21/202304/27 Body mass index (BMI) of 40. 0 to 44.9 in adult 10/05/2023 05/05/2024 Overview: Per Obesity protocol Morbid (severe) obesity due to excess calories 11/05/2022 11/17/2022 Diverticulitis of colon 10/07/202204/27 Diffuse large B-cell lymphom a of intra-abdominal [...] as of this encounter (statuses as of 05/31/2024) Immunizations Name Administration Dates Next Due PPD [...] encounter Miscellaneous Notes * Telephone Encounter - Mable Parker LPN - 05/31/2024 9:31 AM EDT Care Gaps Comprehensive Care Outreach Last Office/Telemedicine Visit: 05/05/2024 (in office), Visit date not found (telemedicine) Next Office Visit: 06/02/2024 Hemoglobin AIC Results: Lab Results Component Value Date/Time HEMOGLOBIN A1C - [facility] 5.4 10/20/2023 05:11 PM HEMOGLOBIN A1C - [facility] 5.3 07/10/2022 11:41 AM BP Readings from Last 1 Encounters: 05/25/24 120/88 Reviewed Health Maintenance below: Health Maintenance Topic Date Due Pneumococcal Vaccine: 65+ Years (1 of 2 - PCV) Never done Mammogram Never done Colorectal Cancer Screening 06/24/2021 COVID-19 Vaccine ( - season) Never done Adult Wellness Visit 11/25/2023 Influenza Vaccine (FLU shot) (1) 06/26/2024 Mamm Colon awv Appt tomorrow Care Gap Outreach Action Taken: Outreach not indicated documented in this encounter Plan of Treatment Upcoming Encounters Date Type Department Care Team (Late st Contact Info) Description 06/02/2024 4:00 PM EDT Office Visit [facility] [address] [facility] [place] [address] [facility] [address] [facility] [address] 06/21/2024 8:40 AM EDT Telemedicine Nutrition & Weight Management, [facility] [address] [place] [address] Corrina Callahan PA-C [address] [place] [address] 06/21/2024 10:00 AM EDT Telemedicine Nutrition & Weight Management, [facility] [address] [place] [address] [facility] [place] [facility] [place] [address] 06/29/2024 12:30 PM EDT Office Visit Audiology [facility] [address] [place] [address] Corazon Meza Au.D. [address] [place] [address] 06/29/2024 1:30 PM EDT Office Visit Interventional Pain Center, [facility] [address] [place] [address] Aidee Bernstein MD [address] [place] [address] [place] [address] 06/29/2024 2:20 PM EDT Office Visit Otolaryngology [facility] [address] [place] [address] Vikash Goddard PA-C [address] [place] [address] 09/30/2024 2:30 PM EST Office Visit Otolaryngology [facility] [address] [place] [address] Femi Bal, DO [address] [place] [address] 11/25/2024 1:00 PM EST Cardiac Studies Cardiac Studies, [facility] 132 [facility] [place] [address] 12/06/2024 2:30 PM EST Office Visit Cardiology, [facility] [address] [place] [address] Sebastian Santiago, DO [address] [place] [address] Health Maintenance Due Date Last Done Comments Pneumococcal Vaccine: 65+ Years (1 of 2 - PCV) 1960 Mammogram 1994 Cologuard 1999 Fecal Occult Blood Test 1999 Sigmoidoscopy 1999 Colonoscopy 06/24/2021 06/24/2016, 06/24/2016 Colorectal Cancer Screening 06/24/2021 COVID-19 Vaccine ( season) 2023 Adult Wellness Visit 11/25/2023 11/25/2022 Influenza Vaccine (FLU shot) (#1) 2024 Depression Monitoring 2024 2023 GFR 01/21/2025 01/22/2024, 11/2023, 12/07/2023, Additional history exists Albumin/Creatinine Ratio [...] Power of Attor kathy? No Care Teams Risk Control Field Representative Relationship Specialty Start Date End Date Jenny Pressley MD [address] [place] [address] PCP - General Internal Medicine 11/20/23 documented as of this encounter
--- OUTSIDE RECORDS SUMMARY | 2024-09-27 11:11 | External Medical Summary | Summary of Care ---
Author Name Unknown Organization [facility] Address [address] [place] [address] Phone [phone] Care Team Providers Care Plant Operations Worker Name Role Phone Jenny Pressley MD Primary Care Provider Encounter Details Date Type Department Care Team (Late st Contact Info) Description 05/27/2024 Orders Only PATIENT PORTAL DO NOT DELETE THIS DEPT USED BY [place] [id number] Allergies Active Allergy Reactions Criticality Noted Date [...] as of this encounter (statuses as of 05/27/2024) Medications Medication Sig Dispensed Refills Start Date [...] as of this encounter (statuses as of 05/27/2024) Active Problems Problem Noted Date Diagnosed Date [...] as of this encounter (statuses as of 05/27/2024) Resolved Problems Problem Noted Date Diagnosed Date [...] as of this encounter (statuses as of 05/27/2024) Immunizations Name Administration Dates Next Due PPD [...] No 10/21/2023 documented as of this encounter Plan of Treatment Upcoming Encounters Date Type Department Care Team (Late st Contact Info) Description 06/02/2024 4:00 PM EDT Office Visit [facility] [address] [place] [phone] Jenny Pressley MD [address] [place] [address] 06/21/2024 8:40 AM EDT Telemedicine Nutrition & Weight Management, [facility] [address] [place] [address] Corrina Callahan PA-C [address] [place] [address] 06/21/2024 10:00 AM EDT Telemedicine Nutrition & Weight Management, [facility] [address] [place] [address] [facility], Behavior Class 2 [facility] [address] [place] [address] 06/29/2024 12:30 PM EDT Office Visit Audiology [facility] [address] [place] [address] Corazon Meza Au.D. [address] [place] [address] 06/29/2024 1:30 PM EDT Office Visit Interventional Pain Center, [facility] 132 [facility] [place] [address] Aidee Bernstein MD [address] [place] [address] [place] [address] 06/29/2024 2:20 PM EDT Office Visit Otolaryngology [facility] 132 [facility] [place] [address] Vikash Goddard PA-C [address] [place] [address] 09/30/2024 2:30 PM EST Office Visit Otolaryngology [facility] 132 [facility] [place] [address] Femi Bal, 132 [facility] [place] [address] 11/25/2024 1:00 PM EST Cardiac Studies Cardiac Studies, [facility] [address] [facility] [place] [address] 12/06/2024 2:30 PM EST Office Visit Cardiology, [facility] [address] [facility] [place] [address] Sebastian Santiago, DO [address] [facility] [place] [address] Health Maintenance Due Date Last Done Comments Pneumococcal Vaccine: 65+ Years (1 of 2 - PCV) 1960 Mammogram 1994 Cologuard 1999 Fecal Occult Blood Test 1999 Sigmoidoscopy 1999 Colonoscopy 06/24/2021 06/24/2016, 06/24/2016 Colorectal Cancer Screening 06/24/2021 COVID-19 Vaccine (2022-24 season) 2023 Influenza Vaccine (FLU shot) (#1) 2024 Depression Monitoring 2024 2023 GFR 01/21/2025 01/22/2024, 03/0 11/2023, 12/07/2023, Additional history exists Albumin/Creatinine Ratio 05/18/2026 05/18/2023 Diabetes Screening 01/21/2027 01/22/2024, 0 12/26/2023, 12/07/2023, Additional history exists Lipid Panel 01/21/2029 01/22/2024, 1204/2023, 05/18/2023, Additional history exists Hepatitis C Screening Completed 03/05/2016 RETIRED - COLONOSCOPY-EVERY 5 YRS AGES 18-100 [...] Power of Attor kathy? No Care Teams Plant Operations Worker Relationship Specialty Start Date End Date Jenny Pressley MD [address] [facility] [place] [address] PCP - General Internal Medicine 11/20/23 documented as of this encounter
--- OUTSIDE RECORDS SUMMARY | 2024-09-27 11:11 | External Medical Summary | Summary of Care ---
Author Name Unknown Organization [facility] Address [address] [place] [address] Phone [phone] Care Team Providers Care Rebar Bender Name Role Phone Jenny Pressley MD Primary Care Provider [phone] Reason for Visit * Reason Comments Follow Up Encounter Details Date Type Department Care Team (Late st Contact Info) Description 05/12/2024 4:00 PM EDT Office Visit Otolaryngology [facility] [address] [place] [address] Vikash Goddard PA-C [address] [place] [address] Hx of mastoidectomy*; Chronic otorrhea, bilateral Allergies Active Allergy Reactions Criticality Noted Date [...] as of this encounter (statuses as of 05/12/2024) Medications Medication Sig Dispensed Refills Start Date [...] in the morning. 10 Tablet 05/12/2024 Active documented as of this encounter (statuses as of 05/12/2024) Active Problems Problem Noted Date Diagnosed Date Pulmonary hypertension, unspecified 03/15/2024 Hypertensive heart disease w ith chronic combined systolic and diastolic congestive heart failure 02/29/2024 Obesity, morbid (more than 1 00 lbs over ideal weight or BMI > 40) 11/27/2023 Depression, unspecified 11/27/2023 Dilated cardiomyopathy 10/26/2023 Diarrhea 10/25/2023 Dilatation of colon 10/25/2023 Pneumonia 10/21/2023 Fever of unknown origin 10/21/2023 Elevated troponin 10/20/2023 Gout of big [...] as of this encounter (statuses as of 05/12/2024) Resolved Problems Problem Noted Date Diagnosed Date Resolved Date Ileus, postoperative 10/23/2023 024 Paroxysmal atrial fibrillation 10/21/2023 11/27/2023 Severe sepsis with acute organ dysfunction 10/21/2023 11/27/2023 Body mass index (BMI) of 40. 0 [...] as of this encounter (statuses as of 05/12/2024) Immunizations Name Administration Dates Next Due PPD [...] Pressure - - Pulse - - Temperature - - Respiratory Rate - - Oxygen Saturation - - Inhaled Oxygen Concentration - - Weight 116.6 kg (257 lb) 05/12/2024 3:15 PM EDT Height 166.8 cm (5' 5.67") 05/12/2024 3:15 PM ED T Body Mass Index 41.9 05/12/2024 3:15 PM EDT documented in this encounter Functional [...] this encounter Patient Instructions * Patient Instructions* Vikash Goddard PA-C - 05/12/2024 3:18 PM EDT Keep water out of ears Use ciprodex drops twice a day for the next 14 days to both ears Take levaquin oral antibiotic once a day for the next 10 days. documented in this encounter Progress Notes * Vikash Goddard PA-C - 05/12/2024 3:06 PM EDT 05/12/24 HISTORY OF PRESENT ILLNESS This 68 year old YO female is seen today for f/u of chronic otorrhea. Hx of b/l canal wall down mastoidectomies and revision mastoidectomies most recently by Dr. Mai 2011. Since last visit has used ciprodex drops. Ears are minimally draining, much improved since last visit. Still feels hearing is muffled from baseline. She is keeping water out of ears. No recent URI symptoms-- does have chronic sinus issues. No recent swimming underwater. Problem List Patient Active Problem List Diagnosis ADVANCE DIRECTIVE INFORMATION Other chronic sinusitis Anterior scleritis Drusen of optic disc SENSORY HEARING LOSS, UNILATERAL,RIGHT Chronic mastoiditis Deviated nasal septum Hypertrophy of nasal turbinates TEMPOROMANDIBULAR JOINT DISORDERS, UNSPECIFIED Malocclusion HTN, goal below 140/90 Acute on chronic systolic heart failure (HCC) Atrial fibrillation with rapid ventricular response (HCC) WILL on CPAP Iron deficiency anemia due to chronic blood loss Gastrointestinal hemorrhage Difficult intubation Controlled substance agreement signed Hypertensive heart disease with chronic systolic congestive heart failure (HCC) Multiple thyroid nodules History of diffuse large B-cell lymphoma Status post ablation of atrial fibrillation Status post right knee replacement Chronic allergic rhinitis Rotator cuff syndrome of left shoulder Diverticulitis of colon Gout of big toe Elevated troponin Pneumonia Fever of unknown origin Diarrhea Dilatation of colon Dilated cardiomyopathy (HCC) Obesity, morbid (more than 100 lbs over ideal weight or BMI > 40) (HCC) Depression, unspecified Hypertensive heart disease with chronic combined systolic and diastolic congestive heart failure (HCC) Pulmonary hypertension, unspecified (HCC) Past Medical History: Diagnosis Date Anterior scleritis [...] performed by Eden Foreman DO at ENDOSCOPY [facility] CREATE EARDRUM OPENING,LOCAL ANESTH Tympanostomy tubes; cholesteotoma repair EGD, FLEXIBLE, DIAGNOSTIC N/A 06/10/2016 normal/ESOPHAGOGASTRODUODENOSCOPY (EGD), FLEXIBLE, TRANSORAL, DIAGNOSTIC performed by Eden Foreman DO at ENDOSCOPY [facility] EXPLORATION OF ABDOMEN N/A 07/24/2016 EXPLORATORY LAPAROTOMY performed by Eden Hassan DO at OR [facility] PARTIAL REMOVAL OF THYROID LOBE had a lump at age 15-16- assumes it was benign REMOVAL OF SMALL INTESTINE W/FUSION N/A 07/24/2016 ENTERECTOMY SMALL BOWEL RESECTION performed by Eden Hassan DO at OR [facility] REMOVE TONSILS & ADENOIDS, UNDER 12 T & A, age<12 REPAIR OF NASAL SEPTUM ? 2001 Nasal Septum Repair - Dr. Hernández REVISE MIDDLE EAR & MASTOID 12/16/2011 TYMPANOPLASTY MASTOIDECTOMY WITHOUT OSSICULAR RECONSTRUCTION performed by SEA MCCARTY at OR [facility] Medications Current Outpatient Medications Medication Sig Dispense Refill levoFLOXacin 500 MG Oral Tablet Take 1 Tablet by mouth in the morning. 10 Tablet 0 Cholecalciferol 25 MCG (1000 UT) Oral Capsule [...] Sotalol Family History Family History Problem Relation Name Age of Onset Heart Disorder Mother pacer Hypertension Mother Heart Disorder Father [place] Heart Disorder Brother A.fib Mental Disorder Daughter depression Mental Disorder Daughter depression Mental Disorder Daughter depression Heart Disorder Son Social History Social History Tobacco Use Smoking status: Never Passive exposure: Past Smokeless tobacco: Never Tobacco comments: no passive smoke exposures Substance Use Topics Alcohol use: Not Currently Comment: rarely Vaping/E-Cigarette Use Vaping/E-Cigarette Use Never User Vaping/E-Cigarette Substances Vaping/E-Cigarette Devices Occupational History 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 PHYSICAL EXAMINATION: Vital Signs: Filed Vitals: 05/12/24 1515 Weight: 116.6 kg (257 lb) Height: 1.668 m (5' 5.67") General: this is a healthy appearing female who appears her stated age. The patient is alert and appropriately verbally conversant without hoarseness. Ears: Examination of the ears revealed that the auricles were normally formed with no lesions. The external auditory canals were cleaned of any obstructing cerumen. See below procedure note. Bilateral canal wall down mastoidectomies are noted. There is mild erythema b/l posterior canals and TMs L>R, no active otorrhea to culture. Lungs: normal respiratory effort Heart: normal rate IN ORDER TO BETTER EXAMINE THE EARS, THE PATIENT WAS EXAMINED USING THE OPERATING MICROSCOPE. FINDINGS ARE NOTED BELOW. Ears: Examination of the ears revealed that the auricles were normally formed with no lesions. The right external auditory canal and mastoid bowl was impacted with cerumen. It was removed using suction and forceps atraumatically by me. The right TM was WNL. The right middle ear space was WNL. The left external auditory canal and mastoid bowl was impacted with cerumen. It was removed using suction and forceps atraumatically by me. The left TM was WNL. The left middle ear space was WNL ASSESSMENT: 1. Hx of mastoidectomy 2. Chronic otorrhea, bilateral - levoFLOXacin 500 MG Oral Tablet; Take 1 Tablet by mouth in the morning. Dispense: 10 Tablet; Refill: 0 Plan: Ciprodex x 2 weeks. Levaquin x 10 days-- discussed possible side effects of medication with pt in detail. Return in 3-4 weeks for recheck w audio, sooner PRN. Pt verbalized understanding and agrees with plan. Questions/Concerns addressed. Vikash Goddard PA-C [facility] OUTPATIENT SURGERY [place] OTOL[facility]OLOGY [facility] [address] [facility] [place] [address] 05/12/24 4:27 PM I spent a total of 20-29 minutes (exact time 24 mins) on the date of service in preparation, delivery, and documentation of the care provided to Ramona Stringer excluding any time spent in the performance of separately billed services. documented in this encounter Plan of Treatment Upcoming Encounters Date Type Department Care Team (Late st Contact Info) Description 05/13/2024 10:45 AM EDT [facility] [address] [place] [address] 05/25/2024 3:30 PM EDT Office Visit Cardiology, [facility] [address] [facility] [place] [address] Gayle Marx PA-C [address] [facility] [place] [address] 06/02/2024 4:00 PM EDT Office Visit Located [facility] [address] [facility] [id number] [facility] [address] [facility] [address] 06/21/2024 8:40 AM EDT Telemedicine Nutrition & Weight Management, [facility] [address] [place] [address] Corrina Callahan PA-C [address] [place] [address] 06/21/2024 10:00 AM EDT Telemedicine Nutrition & Weight Management, [facility] [address] [place] [address] [facility] Behavior Class 2 [facility] [place] [address] 06/29/2024 12:30 PM EDT Office Visit Audiology [facility] [address] [facility] [place] [address] Corazon Meza Au.D. [address] [place] [address] 06/29/2024 1:30 PM EDT Office Visit Interventional Pain Center, [facility] [address] [place] [address] Aidee Bernstein MD [address] [place] [address] [place] [address] 06/29/2024 2:20 PM EDT Office Visit Otolaryngology [facility] [address] [facility] [place] [address] Vikash Goddard PA-C [address] [place] [address] 09/30/2024 2:30 PM EST Office Visit Otolaryngology [facility] [address] [place] [address] Femi Bal, [address] [facility] [place] [address] Health Maintenance Due Date Last Done Comments Pneumococcal Vaccine: 65+ Years (1 of 2 - PCV) 1960 Mammogram 1994 Cologuard 1999 Fecal Occult Blood Test 1999 Sigmoidoscopy 1999 Colonoscopy 06/24/2021 06/24/2016, 06/24/2016 Colorectal Cancer Screening 06/24/2021 COVID-19 Vaccine ( season) 2023 Influenza Vaccine (FLU shot) (#1) 2024 Depression Monitoring 2024 2023 GFR 01/21/2025 01/22/2024, 0311/2023, 12/07/2023, Additional history exists Albumin/Creatinine Ratio 05/18/2026 05/18/2023 Diabetes Screening 01/21/2027 01/22/2024, 0 12/26/2023, 12/07/2023, Additional history exists Lipid Panel 01/21/2029 01/22/2024, 09/26, 05/18/2023, Additional history exists RETIRED - COLONOSCOPY-EVERY 5 YRS AGES 18-100 Discontinued 06/24/2016, 06/24/2016 *BASELINE EKG FOR HTN Completed 12/07/2023 , 10/24/2023, 10/22/2023, Additional history exists DTaP,Tdap,and Td Vaccines Discontinued DXA Scan Discontinued [...] as of this encounter Visit Diagnoses Diagnosis Hx of mastoidectomy- Primary Other postprocedural status Chronic otorrhea, bilateral documented in this encounter Advance Directives * [...] Power of Attor kathy? No Care Teams Rebar Bender Relationship Specialty Start Date End Date Jenny Pressley MD [address] [place] [address] PCP - General Internal Medicine 11/20/23 documented as of this encounter
--- OUTSIDE RECORDS SUMMARY | 2024-09-27 11:11 | External Medical Summary | Summary of Care ---
Author Name Unknown Organization [facility] Address [address] [place] [address] Phone [phone] Care Team Providers Care Art Critic Name Role Phone Jenny Pressley MD Primary Care Provider [phone] Reason for Visit * Reason Onset Date Comments Medication Refill 02/22/2024 Encounter Details Date Type Department Care Team (Late st Contact Info) Description 02/22/2024 Telephone Cardiology, [facility] [address] [facility] [id number] Licha Sosa CRNP [address] [facility] [address] Medication Refill Allergies Active Allergy Reactions Criticality Noted Date [...] as of this encounter (statuses as of 05/23/2024) Medications Medication Sig Dispensed Refills Start Date [...] bedtime. With food.. 60 Tablet 3 4 Active Additional Information Patient taking differently:75 mg OralPRN, Pain, With food., Reported on 05/11/2024 Eliquis 5 MG Oral Tablet Take 1 Tablet by mouth in the morning and 1 Tablet before bedtime. 3 04/19/20 24 Discontinued(Vt dication List Clean Up) Metoprolol Succinate ER 50 MG Oral Tablet Extended Release 24 Hour (toPROL XL) Take 1 Tablet by mouth in the morning. 90 Tablet 3 4 04/19/20 24 Discontinued Amoxicillin-Pot Clavulanate 875-125 MG Oral Tablet (Augmentin) Take 1 Tablet by mouth in the morning and 1 Tablet before bedtime. Do all this for 10 days. 20 Tablet 4 04/26/20 24 Discontinued(Hardeep harmon preference/disc ontinuation) HYDROcodone-Aceta minophen 7.5-325 MG Oral TabletIndications :Controlled substance agreement signed,Status post right knee replacement,Rotat or cuff syndrome of left shoulder Take 1 Tablet by mouth every 8 hours as needed for Pain, Breakthrough or Pain, Severe. 30 Tablet 4 05/05/20 24 Discontinued(Re fill) documented as of this encounter (statuses as of 05/23/2024) Active Problems Problem Noted Date Diagnosed Date [...] as of this encounter (statuses as of 05/23/2024) Resolved Problems Problem Noted Date Diagnosed Date [...] as of this encounter (statuses as of 05/23/2024) Immunizations Name Administration Dates Next Due PPD [...] encounter Miscellaneous Notes * Telephone Encounter - Ne Peguero CMA - 02/22/2024 4:32 PM EDT Both prescriptions sent to [facility] in [place] 12/11 for 90 days with 3 refills. Verified with pharmacy that prescriptions are up to date and available for refill. They will refill now. Patient aware and will pick prescriptions up from pharmacy. * Telephone Encounter - Kimberly Eden OSA - 02/22/2024 11:21 AM EDT Person calling: Patient Relationship to patient: self Number to return call: [phone] Reason for call: Patient is requesting for medication refill of metoprolol to be sent to pharmacy today. Pt states that she does not have any left and will need it as soon as possible. Please advise. Pharmacy: [facility] Provider Name: Licha Bashirdarlyn GIBSON * Telephone Encounter - Eloy Gaviria PHARM Tech - 02/22/2024 11:15 AM EDT Pt calling to ask about refills for Spironolactone 25 MG Oral Tablet (Aldactone) . This is under cardiology. Transferred for further assistance. Thank you, Eloy Gaviria [employer] [facility] ([facility]) 02/22/2024,11:16 AM documented in this encounter Plan of Treatment Upcoming Encounters Date Type Department Care Team (Late st Contact Info) Description 05/25/2024 3:30 PM EDT Office Visit Cardiology, [facility] [address] [place] [address] Gayle Marx PA-C [address] [place] [address] 06/02/2024 4:00 PM EDT Office Visit [facility] [address] [facility] [phone] Jenny Pressley MD [address] [facility] [place] [address] 06/21/2024 8:40 AM EDT Telemedicine Nutrition & Weight Management, [facility] [address] [place] [address] Corrina Callahan PA-C [address] [place] [address] 06/21/2024 10:00 AM EDT Telemedicine Nutrition & Weight Management, [facility] [address] [place] [address] [facility] Behavior Class 2 [facility] [place] [address] 06/29/2024 12:30 PM EDT Office Visit Audiology [facility] [address] [facility] [place] [address] Corazon Meza Au.D. [address] [place] [address] 06/29/2024 1:30 PM EDT Office Visit Interventional Pain Center, [facility] [address] [place] [address] Aidee Bernstein MD [address] [place], [place] [address], [place] [address] 06/29/2024 2:20 PM EDT Office Visit Otolaryngology [facility] [address] [place] [address] Vikash Goddard PA-C [address] [place] [address] 09/30/2024 2:30 PM EST Office Visit Otolaryngology [facility] [address] [place] [address] Femi Bal DO [address] [place] [address] Health Maintenance Due Date Last Done Comments [...] Power of Attor kathy? No Care Teams Art Critic Relationship Specialty Start Date End Date Jenny Pressley MD [address] [place] [address] PCP - General Internal Medicine 11/20/23 documented as of this encounter
--- OUTSIDE RECORDS SUMMARY | 2024-09-27 11:11 | External Medical Summary | Summary of Care ---
Author Name Unknown Organization [facility] Address [address] [place] [address] Phone [phone] Care Team Providers Care Chip Loft Worker Name Role Phone Jenny Pressley MD Primary Care Provider [phone] Reason for Referral * Precert (Within 10 days (routine)) - Pending Review Specialty Diagnoses / Procedures Referred By Contac t Referred To Contact Radiology Diagnoses Mid back pain Abdominal pain, generalized DDD (degenerative disc disease), lumbar Procedures MRI L SPINE WO CONTRAST Jenny Pressley MD [address] [place] [address] Referral ID Status Reason Start Date Expiration Date V isits Requested Visits Authorized [id number] Pending Review 05/05/2024 999 [id number] Reason for Visit * Precert (Within 10 days (routine)) - Pending Review Specialty Diagnoses / Procedures Referred By Contac t Referred To Contact Radiology Diagnoses Mid back pain Abdominal pain, generalized DDD (degenerative disc disease), lumbar Procedures MRI L SPINE WO CONTRAST Jenny Pressley MD [address] [place] [address] Referral ID Status Reason Start Date Expiration Date V isits Requested Visits Authorized [id number] Pending Review 05/05/2024 [id number] Encounter Details Date Type Department Care Team (Latest Contact Info) Description 05/19/2024 12:32 PM EDT - 05/19/2024 11:59 PM EDT Hospital Encounter Radiology, [facility] [address] [place], [place] [id number] Arrived Discharge Disposition: Home - Self Care Allergies Active Allergy Reactions Criticality Noted Date [...] as of this encounter (statuses as of 05/20/2024) Medications Medication Sig Dispensed Refills Start Date [...] as of this encounter (statuses as of 05/20/2024) Active Problems Problem Noted Date Diagnosed Date [...] as of this encounter (statuses as of 05/20/2024) Resolved Problems Problem Noted Date Diagnosed Date [...] as of this encounter (statuses as of 05/20/2024) Immunizations Name Administration Dates Next Due PPD [...] 05/25/2024 3:30 PM EDT Office Visit Cardiology, [facility] [address] [address] Gayle Marx PA-C [address] [address] 06/02/2024 4:00 PM EDT Office Visit Family [place] [address] [address] [facility] [place] [address] Jenny Pressley MD [address] [facility] [address] 06/21/2024 8:40 AM EDT Telemedicine Nutrition & Weight Management, [facility] [address] [place] [address] Corrina Callahan PA-C [address] [facility] [place] [address] 06/21/2024 10:00 AM EDT Telemedicine Nutrition & Weight Management, [facility] [address] [facility] [place] [address] [facility] Class [address] [facility] [place] [address] 06/29/2024 12:30 PM EDT Office Visit Audiology [facility] [place] [address] Corazon Meza Au.D. [address] [place] [address] 06/29/2024 1:30 PM EDT Office Visit Interventional Pain Center, [facility] [address] [facility] [place] [address] Aidee Bernstein MD [address] [place] [address] [place] [address] 06/29/2024 2:20 PM EDT Office Visit Otolaryngology [facility] [address] [place] [address] Vikash Goddard PA-C [address] [place] [address] 09/30/2024 2:30 PM EST Office Visit Otolaryngology [facility] [address] [place] [address] Femi Bal, [address] [place] [address] Health Maintenance Due Date Last Done Comments [...] Procedure Name Priority Date/Time Associated Diagnosis Comments MRI L SPINE WO CONTRAST Routine 05/19/2024 1:10 PM EDT Mid back pain Abdominal pain, generalized DDD (degenerative disc disease), lumbar documented in this encounter Results * MRI L SPINE WO CONTRAST (05/19/2024 1:10 PM EDT) Anatomical Region Laterality Modality Vertebra, Lspine Magnetic Resona nce 05/19/2024 6:39 PM EDT Impressions 05/19/2024 6:37 PM EDT IMPRESSION 1. Multilevel multifactorial degenerative changes throughout the lumbar spine as described without spinal canal stenosis. Mild bilateral L4-5 and mild to moderate bilateral L5-S1 neural foraminal narrowing. Narrative 05/19/2024 6:37 PM EDT EXAM MRI scan of the lumbar spine without contrast - 05/19/2024. HISTORY 58 years old female with worsening chronic low back pain. TECHNIQUE Sagittal T1, T2, and STIR; axial T1 and T2-weighted images of the lumbar spine were obtained. COMPARISON MRI scan of the lumbar spine dated 01/17/2012. FINDINGS The normal alignment is maintained with preservation of lumbar lordosis. No evidence of fracture, subluxation, or destructive lesion is seen. No suspicious bone marrow signal abnormalities are detected. Slight desiccation of the intervertebral discs is noted with mild loss of height of L2-3 through L4-5 discs. The imaged lower spinal cord is unremarkable, and the conus medullaris terminates normally at T12-L1 junction. The nerve roots of the cauda equina are appropriately arrayed within the thecal sac without thickening or clumping. The prespinal and paraspinal soft tissues are within normal limits. There are small bilateral cortical renal cysts. No additional abnormalities are detected in the imaged abdominal and pelvic structures. Degenerative changes are present in the lumbar spine. L1-2: Bilateral facet arthropathy is seen without spinal canal stenosis or neural foraminal narrowing. L2-3: Diffuse disc bulging and bilateral facet arthropathy are noted without spinal canal stenosis or neural foraminal narrowing. L3-4: Diffuse disc bulge and bilateral facet arthropathy are appreciated without spinal canal stenosis or neural foraminal narrowing. L4-5: Diffuse disc bulging and bilateral facet arthropathy/hypertrophy are causing mild bilateral neural foraminal narrowing without spinal canal stenosis. L5-S1: Diffuse disc bulging and bilateral facet arthropathy/hypertrophy are causing mild to moderate bilateral neural foraminal narrowing without spinal canal stenosis. Degenerative changes between lumbar spinous processes may represent Baastrup's disease. Procedure Note Venu Key MD - 05/19/2024 EXAM MRI scan of the lumbar spine without contrast - 05/19/2024. HISTORY 58 years old female with worsening chronic low back pain. TECHNIQUE Sagittal T1, T2, and STIR; axial T1 and T2-weighted images of the lumbarspine were obtained. COMPARISON MRI scan of the lumbar spine dated 01/17/2012. FINDINGS The normal alignment is maintained with preservation of lumbar lordosis.No evidence of fracture, subluxation, or destructive lesion is seen. Nosuspicious bone marrow signal abnormalities are detected. Slightdesiccation of the intervertebral discs is noted with mild loss of heightof L2-3 through L4-5 discs. The imaged lower spinal cord is unremarkable,and the conus medullaris terminates normally at T12-L1 junction. Thenerve roots of the cauda equina are appropriately arrayed within thethecal sac without thickening or clumping. The prespinal and paraspinalsoft tissues are within normal limits. There are small bilateral corticalrenal cysts. No additional abnormalities are detected in the imagedabdominal and pelvic structures. Degenerative changes are present in the lumbar spine. L1-2: Bilateral facet arthropathy is seen without spinal canal stenosis orneural foraminal narrowing. L2-3: Diffuse disc bulging and bilateral facet arthropathy are notedwithout spinal canal stenosis or neural foraminal narrowing. L3-4: Diffuse disc bulge and bilateral facet arthropathy are appreciatedwithout spinal canal stenosis or neural foraminal narrowing. L4-5: Diffuse disc bulging and bilateral facet arthropathy/hypertrophy arecausing mild bilateral neural foraminal narrowing without spinal canalstenosis. L5-S1: Diffuse disc bulging and bilateral facet arthropathy/hypertrophyare causing mild to moderate bilateral neural foraminal narrowing withoutspinal canal stenosis. Degenerative changes between lumbar spinous processes may representBaastrup's disease. IMPRESSION IMPRESSION 1. Multilevel multifactorial degenerative changes throughout the lumbarspine as described without spinal canal stenosis. Mild bilateral L4-5 andmild to moderate bilateral L5-S1 neural foraminal narrowing. Jenny Pressley MD RAD MRI-MRA documented in this encounter Visit Diagnoses Diagnosis Mid back pain Backache, unspecified Abdominal pain, generalized DDD (degenerative disc disease), lumbar Degeneration of lumbar or lumbosacral intervertebral disc documented in this encounter Advance Directives * [...] Power of Attor kathy? No Care Teams Chip Loft Worker Relationship Specialty Start Date End Date Jenny Pressley MD [address] [place] [id number] PCP - General Internal Medicine 11/20/23 documented as of this encounter
--- OUTSIDE RECORDS SUMMARY | 2024-09-27 11:12 | External Medical Summary | Summary of Care ---
Author Name Unknown Organization [facility] Address [address] [place] [address] Phone [phone] Care Team Providers Care Combine Mechanic Name Role Phone Jenny Pressley MD Primary Care Provider [phone] Reason for Visit * Reason Onset Date Comments Medication Question 05/06/2024 Encounter Details Date Type Department Care Team ([facility] st Contact Info) Description 05/06/2024 Telephone [facility] [address] [place] [address] Jenny Pressley MD [address] [place] [address] Medication Question Allergies Active Allergy Reactions Criticality Noted Date [...] as of this encounter (statuses as of 05/11/2024) Medications Medication Sig Dispensed Refills Start Date [...] With food.. 60 Tablet 3 4 Active Bumetanide 1 MG Oral Tablet (Bumex) Take 1 Tablet by mouth in the morning and 1 Tablet before bedtime. 180 Tablet 2 4 Active Potassium Chloride ER 10 MEQ Oral Tablet Extended Release Take 1 Tablet by mouth in the morning. 90 Tablet 3 4 Active Fluticasone Propionate 50 MCG/ACT Nasal Suspension (Flonase)Indicatio ns:Acute maxillary sinusitis, unspecified SPRAY 2 SPRAYS INTO EACH NOSTRIL IN THE MORNING 48 mL 1 4 Active Metoprolol Tartrate 25 MG Oral Tablet (Lopressor) Take 1 Tablet by mouth in the morning. Active HYDROcodone-Acetam inophen 7.5-300 MG Oral Tablet Take 1 Tablet by mouth every 8 hours as needed for Pain, Severe. 60 Tablet 4 Active HYDROcodone-Acetam inophen 7.5-325 MG Oral TabletIndications: Controlled substance agreement signed,Status post right knee replacement,Rotato r cuff syndrome of left shoulder,Mid back pain,DDD (degenerative disc disease), lumbar Take 1 Tablet by mouth every 8 hours as needed for Pain, Breakthrough or Pain, Severe. 60 Tablet 4 05/06/20 24 Discontinued documented as of this encounter (statuses as of 05/11/2024) Active Problems Problem Noted Date Diagnosed Date [...] as of this encounter (statuses as of 05/11/2024) Resolved Problems Problem Noted Date Diagnosed Date [...] as of this encounter (statuses as of 05/11/2024) Immunizations Name Administration Dates Next Due PPD [...] Telephone Encounter - Jazzy Rojas LPN - 05/11/2024 9:04 AM EDT Natalee from [facility] Insurance is calling in regards to [place] request for Hydrocodone w/ APAP 7.5-300 mg. States that this is non formulary. Asks if pt tried formulary versions and questions based on chart review. Also made natalee aware that 7.5-300 mg was ordered due manufacture supply issue. Natalee has no further questions at this time. Case #: [id number] * Telephone Encounter - Tayler Soliman LPN - 05/09/2024 12:59 PM EDT Paper prior auth filled out and will be placed on providers desk for signature. * Telephone Encounter - Diane Danielle CPhT - 05/06/2024 11:40 AM EDT Pharmacy calling to inform doctor that the patient's insurance will not pay for this medication without a completed prior authorization. Did confirm this information with the pharmacy. Pt's current insurance information is as follows: Patient name: Ramona Stringer ID number: [id number] BIN number: [id number] PCN number: [id number] Group number: [id number] Subscriber name: Ramona Stringer Primary or Secondary Insurance:Primary Medication: HYDROcodone-Acetaminophen 7.5-300 MG Oral Tablet Reason for Request: [place] Required Pharmacy and phone number: [facility][id number] [facility] [address] [phone] Rx plan and phone number: Thomas [phone] Is this a new medication for the patient? Yes What alternative medications does the pharmacy have in stock?: N/A Thank you, Diane Danielle CPhT Distance Education Director II [facility] 05/06/2024,11:40 AM * Addendum Note - Jenny Pressley MD - 05/06/2024 11:23 AM EDTAddended by: JNENY PRESSLEY on: 05/06/2024 11:23 AM Modules accepted: Orders * Telephone Encounter - Jenny Pressley MD - 05/06/2024 11:23 AM EDT Sent * Telephone Encounter - Tabitha Espino MED ASSIST - 05/06/2024 10:23 AM EDT Can an alternative dose be sent? * Telephone Encounter - Niurka Zacarias PHARM Tech - 05/06/2024 8:52 AM EDT [facility] Pharmacy calling regarding Hydrocodone-APAP. Dose is on division operations manager backorder and is not in stock. Pharmacy states that they have 7.5-300mg dose available and are asking if PCP could send a new RX in for that strength. Please advise. Thank you, Niurka Zacarias, Polymerization Kettle Operator [facility] ([facility]) 05/06/2024,8:53 AM documented in this encounter Plan of Treatment Upcoming Encounters Date Type Department Care Team (Late st Contact Info) Description 05/11/2024 12:40 PM EDT Office Visit Nutrition & Weight Management, [facility] [address] [address] Corrina Callahan PA-C [address] [address] 05/11/2024 2:00 PM EDT Nurse Only Nutrition & Weight Management, [facility] [address] [address] Srivastava, Nutrition Ed Class 1 [facility] [address] [address] 05/12/2024 3:00 PM EDT Office Visit Audiology [facility] [address] [address] Corazon Meza Au.D. [address] [place] [address] 05/12/2024 4:00 PM EDT Office Visit Otolaryngology [facility] [address] [place] [address] Vikash Goddard PA-C [address] [place] [address] 05/13/2024 10:45 AM EDT Appointment Radiology, [place] [address] [place] [address] 05/25/2024 3:30 PM EDT Office Visit Cardiology, [facility] [address] [place] [address] Gayle Marx PA-C [address] [address] 06/02/2024 4:00 PM EDT Office Visit [facility] [address] [facility] [id number] Jenny Pressley MD [address] [place] [address] 06/29/2024 1:30 PM EDT Office Visit Interventional [facility] Center, [facility] [place] [address] Aidee Bernstein MD [address] [place] [address] 09/30/2024 2:30 PM EST Office Visit Otolaryngology [facility] [address] [place] [address] Femi Bal DO [address] [place] [address] Health Maintenance Due Date Last Done Comments [...] Power of Attor kathy? No Care Teams Combine Mechanic Relationship Specialty Start Date End Date Jenny Pressley MD [address] [facility] [place] [address] PCP - General Internal Medicine 11/20/23 documented as of this encounter
--- OUTSIDE RECORDS SUMMARY | 2024-09-27 11:12 | External Medical Summary | Summary of Care ---
Author Name Unknown Organization [facility] Address [address] [place] [address] Phone [phone] Care Team Providers Care Seed Potato Cutter Name Role Phone Jenny Pressley MD Primary Care Provider [phone] Reason for Visit * Reason Onset Date Comments Medication Question 05/06/2024 Encounter Details Date Type Department Care Team ([facility] st Contact Info) Description 05/06/2024 Telephone [facility] [address] [place] [address] Jenny Pressley MD [address] [place] [address] Medication Question Allergies Active Allergy [...] encounter Miscellaneous Notes * Telephone Encounter - Veronica Dai LPN - 05/11/2024 9:50 AM EDT Amparo calling from [facility] insurance Prior Authorization for hydrocodone has been approved Time frame of approval is: open ended Information will be faxed to the office * Telephone Encounter - Jazzy Rojas LPN - 05/11/2024 9:04 AM EDT Natalee from [facility] [employer] is calling in regards to [place] request for Hydrocodone w/ APAP 7.5-300 mg. States that this is non formulary. Asks if pt tried formulary versions and questions based on chart review. Also made natalee aware that 7.5-300 mg was ordered due manufacture supply issue. Natalee has no further questions at this time. Case #: [id number] * Telephone Encounter - Tayler Soliman LPN [...] follows: Patient name: Ramona Stringer ID number: [id number] BIN number: [id number] PCN number: [id number] Group number: [id number] Subscriber name: Ramona Stringer Primary or Secondary Insurance:Primary Medication: HYDROcodone-Acetaminophen 7.5-300 MG Oral Tablet Reason for Request: [place] Required Pharmacy and phone number: [id number] [address] [phone] Rx plan and phone number: Thomas [phone] Is this a new medication for the patient? Yes What alternative medications does the pharmacy have in stock?: N/A Thank you, Diane Danielle CPhT Winch Stripper II [facility] ([facility]) 05/06/2024,11:40 AM * Addendum Note - Jenny Pressley MD - 05/06/2024 11:23 AM EDTAddended by: JENNY PRESSLEY on: 05/06/2024 11:23 AM Modules accepted: Orders * Telephone Encounter - Jenny Pressley MD - 05/06/2024 11:23 AM EDT Sent * Telephone Encounter - Tabitha Espino MED ASSIST - 05/06/2024 10:23 AM EDT Can an alternative dose be sent? * Telephone Encounter - Niurka Zacarias marketing writer - 05/06/2024 8:52 AM EDT [facility] Pharmacy calling regarding Hydrocodone-APAP. Dose is on parimutuel ticket cashier backorder and is not in stock. Pharmacy states that they have 7.5-300mg dose available and are asking if PCP could send a new RX in for that strength. Please advise. Thank you, Niurka Zacarias, Industrial Cleaning Technician [facility]) 05/06/2024,8:53 AM documented in this encounter Plan of Treatment Upcoming Encounters Date Type Department Care Team (Late st Contact Info) Description 05/11/2024 12:40 PM EDT Office Visit Nutrition & Weight Management, [facility] [address] [address] Corrina Callahan PA-C [address] [address] 05/11/2024 2:00 PM EDT Nurse Only Nutrition & Weight Management, [facility] [address] [address] Srivastava, Nutrition Ed Class 1 [facility] [address] [address] 05/12/2024 3:00 PM EDT Office Visit Audiology [facility] [address] [address] Corazon Meza Au.D. [address] [address] 05/12/2024 4:00 PM EDT Office Visit Otolaryngology [facility] [address] [address] Vikash Goddard PA-C [address] [address] 05/13/2024 10:45 AM EDT Appointment Radiology, [facility] [address] [place] [address] 05/25/2024 3:30 PM EDT Office Visit Cardiology, [facility] [place] [address] Gayle Marx PA-C [address] [place] [address] 06/02/2024 4:00 PM EDT Office Visit [facility] [address] [facility] [phone] Jenny [facility] [address] [facility] [address] 06/29/2024 1:30 PM EDT Office Visit Interventional Pain Center, [facility] [address] [place] [address] Aidee Bernstein [facility] [address] [facility] [address] 09/30/2024 2:30 PM EST Office Visit Otolaryngology [facility] [address] [facility] [place] [address] Femi Bal DO [address] [place] [address] Health Maintenance Due Date Last Done Comments Pneumococcal Vaccine: 65+ Years (1 of 2 - PCV) 1960 Mammogram 1994 Cologuard 1999 Fecal Occult Blood Test 1999 Sigmoidoscopy 1999 Colonoscopy 06/24/2021 06/24/2016, 06/24/2016 Colorectal Cancer Screening 06/24/2021 COVID-19 Vaccine ( - 2022-24 season) 2023 Influenza Vaccine (FLU shot) (#1) [...] Power of Attor kathy? No Care Teams Seed Potato Cutter Relationship Specialty Start Date End Date Jenny Pressley MD [address] [facility] [place] [address] PCP - General Internal Medicine 11/20/23 documented as of this encounter
--- OUTSIDE RECORDS SUMMARY | 2024-09-27 11:12 | External Medical Summary | Summary of Care ---
Author Name Unknown Organization [facility] Address [address] [place] [place] [address] Phone [phone] Care Team Providers Care Coach Builder Name Role Phone Jenny Pressley MD Primary Care Provider [phone] Reason for Visit * Reason Comments Weight Management Nutrition class * Precert (Within 30 days (routine)) - Authorized Specialty Diagnoses / Procedures Referred By Contmaximo t Referred To Contact Gastroenterology Diagnoses Morbid (severe) obesity due to excess calories (HCC) Procedures CT NUTRITION CLASS Nutrition And Weight Management [facility] [address] [place] [address] Referral ID Status Reason Start Date Expiration Date V isits Requested Visits Authorized [id number] Authorized Precert 04/19/2024 04/19/2025 999 999 Encounter Details Date Type Department Care Team (Late st Contact Info) Description 05/11/2024 12:40 PM EDT Office Visit Nutrition & Weight Management, [facility] [address] [place] [address] Corrina Callahan PA-C [address] [place] [address] Morbid obesity due to excess calories (HCC)* [...] for Pain, Severe. 60 Tablet 05/06/2024 Active documented as of this encounter (statuses [...] Sign Reading Time Taken Comments Blood Pressure 112/72 05/11/2024 12:46 PM EDT Pulse 75 05/11/2024 12:46 PM EDT Temperature 36.7 C (98.1 F) 05/11/2024 1 2:46 PM EDT Respiratory Rate - - Oxygen Saturation 97% 05/11/2024 12: 46 PM EDT Inhaled Oxygen Concentration - - Weight 116.7 kg (257 lb 4.8 oz) 024 12:46 PM EDT Height 166.8 cm (5' 5.67") 05/11/2024 1 2:46 PM EDT Body Mass Index 41.95 05/11/2024 12:46 PM EDT documented in this encounter Functional [...] Progress Notes * Corrina Callahan PA-C - 05/11/2024 12:40 PM EDT Comprehensive Weight Management Clinic Note Nutrition Class Nursing Notes: Jaleel Holden LPN 05/11/24 1245 Sign at exiting of workspace Chief Complaint Patient presents with Weight Management Nutrition class Ramona Stringer presents in follow up to the comprehensive weight management clinic. The patientis a 68 year old female Wt Readings from Last 6 Encounters: 05/11/24 116.7 kg (257 lb 4.8 oz) 05/05/24 117.9 kg (260 lb) 04/20/24 117.4 kg (258 lb 13.1 oz) 04/19/24 117.4 kg (258 lb 12.8 oz) 04/11/24 110.1 kg (242 lb 11.6 oz) 12/07/23 110.1 kg (242 lb 11.2 oz) Patient is receiving ongoing education regarding dietary and physical modifications for weight loss. Patient is interested in the following treatment options for obesity: surgical options including Mary Lou-en-Y gastric bypass, biliopancreatic diversion with duodenal switch, or laparoscopic sleeve gastr ectomy. - Initial clinic visit 04/19/24. Weight 258 lbs Height 65.65" Body mass index is 42.22 kg/m. -program goal weight: 232lbs - Today's weight: 257 lbs - Total weight loss of -1lb since initial weight in clinic - Patient's last follow up with GI/Nutrition clinic was on 04/19/24. - The patient's weight has -1 lbs since the last visit Insurance: The patient has active [employer] coverage. This plan follows Medicare guidelines. The current BMI of 42.22 with G47.33 and I10 does meet the criteria per the Medicare guidelines. The patient has active [employer] coverage and Bariatric Surgery is covered based on medical necessity. Pre-cert is required. The patient is required to complete 6 consecutive months of nutrition and weight management per the Medical Policy guidelines. The current BMI is 42.22 and does not requirea comorbidity at this time. 05/11/24 -Nutrition class -not really working on [...] weight loss in the past without significant intermediate success. -self directed: keto -commercial: Atkins - [...] heart failure (HCC) Pulmonary hypertension, unspecified (HCC) Review of Systems: The patient denies [...] No current facility-administered medications for this visit. Current diet: Breakfast: coffee; bagel OR applesauce OR 2 eggs and toast Snacks: watermelon OR skips Lunch: soup OR sandwich Snacks: skips Dinner: grilled chicken salad OR meat and veggie Snacks:pretzels, rice cake, fresh fruit Drinks: iced tea without sugar, water, black coffee Restaurant meals: twice a week Exercise: Weight loss Pharmacotherapy: no BP 112/72 | Pulse 75 | Temp 36.7 C (98.1 F) | Ht 1.668 m (5' 5.67") | Wt 116.7 kg (257 lb 4.8 oz) | SpO2 97% | BMI 41.95 kg/m | BSA 2.33 m PHYSICAL EXAMINATION: General: Patient awake alert and oriented. Patient is well appearing and in no acute distress. Skin: No rashes. HEENT: Head is atraumatic, normocephalic. EOMs intact Abdomen: Obese Neuro: No focal deficits Psych: Appropriate mood and affect. Assessment and Plan: Abnormal weight gain / Body mass index is 41.95 kg/m. / Morbid obesity : - Would like [...] exercises and increase as much as possible Ramona was seen today for weight management. Diagnoses and all orders for this visit: [...] HTN, goal below 140/90 -continue current regimen Possibility of Bariatric Surgery: The patient attended nutrition class, the first of our group sessions, today. The dietitian provided information regarding dietary/behavioral changes necessary for before and after surgery as well as provided ideas/suggestions to work towards a modest presurgical weight loss. Specifics regarding portion guidelines (now and after surgery), fat and sugar restriction (for now and after surgery), and eating behavior modification requirements were highlighted. The patient was made aware of the importance of adherence to diet for successful weight loss prior to surgery for potential prevention and decreased risk of postoperative complications. Reviewed need for vitamin and mineral supplementation postoperatively. Handouts reviewed: Behavior Modification for Bariatric Surgery, Serving Sizes, Plate Method, Helpful Weight Loss Tips. The patient agreed to try the plan as discussed and return in 1 month for Behavior class. They wereencouraged to call or send a patient portal message in the meantime with any questions or concerns prior to their next clinic visit. I spent a total of 20 [...] to achieve future goals. Corrina [place], MPH [facility] Nutrition and Weight Management [facility] ([facility]) documented in this encounter Nursing Notes * Clapper, Jaleel Kiran, KNOT BORER - 05/11/2024 12:45 PM EDT Chief Complaint Patient presents with Weight Management Nutrition class documented in this encounter Plan of Treatment Upcoming Encounters Date Type Department Care Team (Late st Contact Info) Description 05/11/2024 2:00 PM EDT Nurse Only Nutrition & Weight Management, [facility] [address] [address] Srivastava, Nutrition Ed Class 1 [facility] [address] [address] Arrived 05/12/2024 3:00 PM EDT Office Visit Audiology [facility] [address] [address] Corazon Meza Au.D. [address] [place] [address] 05/12/2024 4:00 PM EDT Office Visit Otolaryngology [facility] [address] [place] [address] Vikash Goddard PA-C [address] [place] [address] 05/13/2024 10:45 AM EDT Appointment Radiology, [facility] [address] [place] [address] 05/25/2024 3:30 PM EDT Office Visit Cardiology, [facility] [address] [address] Gayle Marx PA-C [address] [place] [address] 06/02/2024 4:00 PM EDT Office Visit [facility] [address] [facility], [place] [phone] Jenny Presslye MD [address] [place] [facility] [place] [address] 06/21/2024 8:40 AM EDT Telemedicine Nutrition & Weight Management, [facility] [address] [place] [address] Corrina Callahan PA-C [address] [facility] [place] [address] 06/21/2024 10:00 AM EDT Telemedicine Nutrition & Weight Management, [facility] [address] [place] [address] [facility] Class 2 [facility] [address] [facility] [place] [address] 06/29/2024 1:30 PM EDT Office Visit Interventional Pain Center, [facility] [address] [place] [address] Aidee Bernstein MD [address] [place] [address] 09/30/2024 2:30 PM EST Office Visit Otolaryngology [facility] [address] [facility] [place] [address] Femi Bal DO [address] [place] [address] Health Maintenance Due Date Last Done Comments Pneumococcal Vaccine: 65+ Years (1 of 2 - PCV) 1960 Mammogram 1994 Cologuard 1999 Fecal Occult Blood Test 1999 Sigmoidoscopy 1999 Colonoscopy 06/24/2021 06/24/2016, 06/24/2016 Colorectal Cancer Screening 06/24/2021 COVID-19 Vaccine ( season) 2023 Influenza Vaccine (FLU shot) (#1) 2024 Depression Monitoring 2024 2023 GFR 01/21/2025 01/22/2024, 03/11/2023, 12/07/2023, Additional history [...] Power of Attor kathy? No Care Teams Coach Builder Relationship Specialty Start Date End Date Jenny Pressley MD [address] [place] [address] PCP - General Internal Medicine 11/20/23 documented as of this encounter
--- OUTSIDE RECORDS SUMMARY | 2024-09-27 11:13 | External Medical Summary | Summary of Care ---
Author Name Unknown Organization [facility] Address [address] [place] [address] Phone [phone] Care Team Providers Care Dictating Machine Transcriber Name Role Phone Jenny Pressley MD Primary Care Provider [phone] Reason for Visit * Reason Onset Date Comments Medication Question 05/06/2024 Encounter Details Date Type Department Care Team (Late st Contact Info) Description 05/06/2024 Telephone [facility] [address] [place] [address] Jenny Pressley MD [address] [place] [address] Medication Question Allergies Active Allergy [...] as of this encounter (statuses as of 05/09/2024) Medications Medication Sig Dispensed Refills Start Date [...] as of this encounter (statuses as of 05/09/2024) Active Problems Problem Noted Date Diagnosed Date [...] as of this encounter (statuses as of 05/09/2024) Resolved Problems Problem Noted Date Diagnosed Date [...] as of this encounter (statuses as of 05/09/2024) Immunizations Name Administration Dates Next Due PPD [...] encounter Miscellaneous Notes * Telephone Encounter - Tayler Soliman LPN [...] follows: Patient name: Ramona Stringer ID number: [id number] BIN number: [id number] PCN number: [id number] Group number: [id number] Subscriber name: Ramona Stringer Primary or Secondary Insurance:Primary Medication: HYDROcodone-Acetaminophen 7.5-300 MG Oral Tablet Reason for Request: [place] Required Pharmacy and phone number: [id number] [address] [phone] Rx plan and phone number: [facility] [phone] Is this a new medication for the patient? Yes What alternative medications does the pharmacy have in stock?: N/A Thank you, Diane Danielle CPhT [employer] II [facility] ([facility]) 05/06/2024,11:40 [...] PHARM Tech - 05/06/2024 8:52 AM EDT [facility] Pharmacy calling regarding Hydrocodone-APAP. Dose is on fashion photographer backorder and is not in stock. Pharmacy states that they have 7.5-300mg dose available and are asking if PCP could send a new RX in for that strength. Please advise. Thank you, Niurka Zacarias, Agile Qa Tester [facility] ([facility]) 05/06/2024,8:53 AM documented in this encounter Plan of Treatment Upcoming Encounters Date Type Department Care Team (Late st Contact Info) Description 05/11/2024 12:40 PM EDT Office Visit Nutrition & Weight Management, [facility] [address] [place] [address] Corrina Callahan PA-C [address] [address] 05/11/2024 2:00 PM EDT Nurse Only Nutrition & Weight Management, [facility] [address] [place] [address] Srivastava, Nutrition Ed Class 1 [facility] [address] [place] [address] 05/12/2024 3:00 PM EDT Office Visit Audiology [facility] [address] [place] [address] Corazon Meza Au.D. [address] [place] [address] 05/12/2024 4:00 PM EDT Office Visit Otolaryngology [facility] [address] [place] [address] Vikash Goddard PA-C [address] [place] [address] 05/13/2024 10:45 AM EDT Appointment Radiology, [place] [address] [place] [address] 05/25/2024 3:30 PM EDT Office Visit Cardiology, [facility] [address] [place] [address] Gayle Marx PA-C [address] [place] [address] 06/02/2024 4:00 PM EDT Office Visit [facility] [address] [place] [phone] Jenny Pressley MD [address] [place] [address] 06/29/2024 1:30 PM EDT Office Visit Interventional Pain Center, [facility] [address] [place] [address] Aidee Bernstein MD [address] [place] [address] [place] [address] 09/30/2024 2:30 PM EST Office Visit Otolaryngology [facility] [address] [place] [address] Femi Bal, [address] [place] [address] Health Maintenance Due Date Last Done Comments Pneumococcal Vaccine: 65+ Years (1 of 2 - PCV) 1960 Mammogram 1994 Cologuard 1999 Fecal Occult Blood Test 1999 Sigmoidoscopy 1999 Colonoscopy 06/24/2021 06/24/2016, 06/24/2016 Colorectal Cancer Screening 06/24/2021 COVID-19 Vaccine ( season) 2023 Influenza Vaccine (FLU shot) (#1) 2024 Depression Monitoring 2024 2023 GFR 01/21/2025 01/22/2024, 030 11/2023, 12/07/2023, Additional history exists Albumin/Creatinine Ratio [...] Power of Attor kathy? No Care Teams Dictating Machine Transcriber Relationship Specialty Start Date End Date Jenny Pressley MD [address] [place] [address] PCP - General Internal Medicine 11/20/23 documented as of this encounter
--- OUTSIDE RECORDS SUMMARY | 2024-09-27 11:13 | External Medical Summary | Summary of Care ---
Author Name Unknown Organization [facility] Address [address] [place] [address] Phone [phone] Care Team Providers Care Associate Professor Of Art Name Role Phone Jenny Pressley MD Primary Care Provider [phone] Reason for Visit * Reason Onset Date Comments Medication Question 05/06/2024 Encounter Details Date Type Department Care Team (Late st Contact Info) Description 05/06/2024 Telephone [facility] [address] [place] [address] Jenny Pressley MD [address] [place] [address] Medication Question Allergies Active Allergy [...] as of this encounter (statuses as of 05/06/2024) Medications Medication Sig Dispensed Refills Start Date [...] Anxiety. Active Spironolactone 25 MG Oral Tablet (Aldactone)Indicati ons:Atrial fibrillation status post cardioversion (HCC),NICM (nonischemic cardiomyopathy) [...] With food.. 60 Tablet 3 02/15/2024 Active Bumetanide 1 MG Oral Tablet (Bumex) Take 1 Tablet by mouth in the morning and 1 Tablet before bedtime. 180 Tablet 2 03/24/2024 Active Potassium Chloride ER 10 MEQ Oral Tablet Extended Release Take 1 Tablet by mouth in the morning. 90 Tablet 3 03/24/2024 Active Fluticasone Propionate 50 MCG/ACT Nasal Suspension (Flonase)Indication s:Acute maxillary sinusitis, unspecified SPRAY 2 SPRAYS INTO EACH NOSTRIL IN THE MORNING 48 mL 1 04/02/2024 Active Metoprolol Tartrate 25 MG Oral Tablet (Lopressor) Take 1 Tablet by mouth in the morning. Active HYDROcodone-Acetami nophen 7.5-325 MG Oral TabletIndications:C ontrolled substance agreement signed,Status post right knee replacement,Rotator cuff syndrome of left shoulder,Mid back pain,DDD (degenerative disc disease), lumbar Take 1 Tablet by mouth every 8 hours as needed for Pain, Breakthrough or Pain, Severe. 60 Tablet 05/05/2024 Active documented as of this encounter (statuses as of 05/06/2024) Active Problems Problem Noted Date Diagnosed Date [...] as of this encounter (statuses as of 05/06/2024) Resolved Problems Problem Noted Date Diagnosed Date [...] as of this encounter (statuses as of 05/06/2024) Immunizations Name Administration Dates Next Due PPD [...] encounter Miscellaneous Notes * Telephone Encounter - Tabitha Espino MED ASSIST - 05/06/2024 10:23 AM EDT Can an alternative dose be sent? * Telephone Encounter - Niurka Zacarias PHARM Tech - 05/06/2024 8:52 AM EDT [facility] Pharmacy calling regarding Hydrocodone-APAP. Dose is on media analyst backorder and is not in stock. Pharmacy states that they have 7.5-300mg dose available and are asking if PCP could send a new RX in for that strength. Please advise. Thank you, Niurka Zacarias, Ride Assembly Supervisor [facility] ([facility]) 05/06/2024,8:53 AM documented in this encounter Plan of Treatment Upcoming Encounters Date Type Department Care Team (Late st Contact Info) Description 05/11/2024 12:40 PM EDT Office Visit Nutrition & Weight Management, [facility] [address] [address] Corrina Callahan PA-C [address] [address] 05/11/2024 2:00 PM EDT Nurse Only Nutrition & Weight Management, [facility] [address] [address] Srivastava, Nutrition Ed Class 1 [facility] [address] [address] 05/12/2024 3:00 PM EDT Office Visit Audiology [facility] [address] [place] [address] Corazon Meza Au.D. [address] [place] [address] 05/12/2024 4:00 PM EDT Office Visit Otolaryngology [facility] [address] [place] [address] Vikash Goddard PA-C [address] [place] [address] 05/13/2024 10:45 AM EDT Appointment Radiology, [place] [address] [place] [address] 05/25/2024 3:30 PM EDT Office Visit Cardiology, [facility] [address] [place] [address] Gayle Marx PA-C [address] [place] [address] 06/02/2024 4:00 PM EDT Office Visit [place] [address] [place] [phone] Jenny Pressley MD [address] [place] [address] 06/29/2024 1:30 PM EDT Office Visit Interventional Pain Center, [facility] [address] [place] [address] Aidee Bernstein MD [address] [place] [address] [place] [address] 09/30/2024 2:30 PM EST Office Visit Otolaryngology [facility] [address] [place] [address] Femi Bal, DO [address] [place] [address] Health Maintenance Due Date Last Done Comments Pneumococcal Vaccine: 65+ Years (1 of 2 - PCV) 1960 Mammogram 1994 Cologuard 1999 Fecal Occult Blood Test 1999 Sigmoidoscopy 1999 Colonoscopy 06/24/2021 06/24/2016, 06/24/2016 Colorectal Cancer Screening 06/24/2021 COVID-19 Vaccine (2022- season) 2023 Influenza Vaccine (FLU shot) (#1) [...] Power of Attor kathy? No Care Teams Associate Professor Of Art Relationship Specialty Start Date End Date Jenny Pressley MD [address] [place] [address] PCP - General Internal Medicine 11/20/23 documented as of this encounter
--- OUTSIDE RECORDS SUMMARY | 2024-09-27 11:13 | External Medical Summary | Summary of Care ---
Author Name Unknown Organization [facility] Address [address] [place] [address] Phone [phone] Care Team Providers Care Cat Breeder Name Role Phone Jenny Pressley MD Primary Care Provider [phone] Reason for Visit * Reason Onset Date Comments Medication Question 05/06/2024 Encounter Details Date Type Department Care Team (Late st Contact Info) Description 05/06/2024 Telephone [facility] [address] [place] [address] Jenny Pressley MD [address] [place] [address] Medication Question Allergies Active Allergy [...] encounter Miscellaneous Notes * Telephone Encounter - Diane Danielle CPhT - 05/06/2024 11:40 AM EDT Pharmacy calling to inform doctor that the patient's insurance will not pay for this medication without a completed prior authorization. Did confirm this information with the pharmacy. Pt's current insurance information is as follows: Patient name: Ramona Stringer ID number: [id number] BIN number: [id number] PCN number: [id number] Group number: [id number] Subscriber name: Ramona Stringer Primary or Secondary Insurance:Primary Medication: HYDROcodone-Acetaminophen 7.5-300 MG Oral Tablet Reason for Request: [place] Required Pharmacy and phone number: [id number] [address] [phone] Rx plan and phone number: [facility] [phone] Is this a new medication for the patient? Yes What alternative medications does the pharmacy have in stock?: N/A Thank you, Diane Danielle CPhT Ld Teacher II [facility] ([facility]) 05/06/2024,11:40 [...] PHARM Tech - 05/06/2024 8:52 AM EDT [facility] Pharmacy calling regarding Hydrocodone-APAP. Dose is on baseball glove shaper backorder and is not in stock. Pharmacy states that they have 7.5-300mg dose available and are asking if PCP could send a new RX in for that strength. Please advise. Thank you, Niurka Zacarias, Foundation Drill Operator [facility] ([facility]) 05/06/2024,8:53 AM documented in this encounter Plan of Treatment Upcoming Encounters Date Type Department Care Team (Late st Contact Info) Description 05/11/2024 12:40 PM EDT Office Visit Nutrition & Weight Management, [facility] [address] [place] [address] Corrina Callahan PA-C [address] [place] [address] 05/11/2024 2:00 PM EDT Nurse Only Nutrition & Weight Management, [facility] [address] [place] [address] Srivastava, Nutrition Ed Class 1 [facility] [address] [address] 05/12/2024 3:00 PM EDT Office Visit Audiology [facility] [address] [place] [address] Corazon Florentino Au.D. [address] [place] [address] 05/12/2024 4:00 PM EDT Office Visit Otolaryngology [facility] [address] [place] [address] Vikash Goddard PA-C [address] [place] [address] 05/13/2024 10:45 AM EDT Appointment Radiology, [place] [address] [place] [address] 05/25/2024 3:30 PM EDT Office Visit Cardiology, [facility] [address] [place] [address] Gayle Marx PA-C [address] [place] [address] 06/02/2024 4:00 PM EDT Office Visit [place] [address] [place] [phone] Jenny Pressley MD [address] [place] [address] 06/29/2024 1:30 PM EDT Office Visit Interventional Pain Center, [facility] [address] [place] [address] Aidee Bernstein MD [address] [place] [address] [place] [id number] 09/30/2024 2:30 PM EST Office [facility]ology [facility] [place] [address] Femi Bal DO [address] [place] [id number] Health Maintenance Due Date Last Done Comments Pneumococcal Vaccine: 65+ Years (1 of 2 - PCV) 1960 Mammogram 1994 Cologuard 1999 Fecal Occult Blood Test 1999 Sigmoidoscopy 1999 Colonoscopy 06/24/2021 06/24/2016, 06/24/2016 Colorectal Cancer Screening 06/24/2021 COVID-19 Vaccine ( - 2022- season) 2023 Influenza Vaccine (FLU shot) (#1) [...] Power of Attor kathy? No Care Teams Cat Breeder Relationship Specialty Start Date End Date Jenny Pressley MD [address] [place] [address] PCP - General Internal Medicine 11/20/23 documented as of this encounter
--- OUTSIDE RECORDS SUMMARY | 2024-09-27 11:13 | External Medical Summary | Summary of Care ---
Author Name Unknown Organization [facility] Address [address] [address] Phone [phone] Care Team Providers Care Hourly Associate Name Role Phone Jenny Pressley MD Primary Care Provider [phone] Reason for Referral * Evaluate & Treat - Unlimited Visits (Within 3 days (urgent)) - Authorized Specialty Diagnoses / Procedures Referred By Megan stanford Referred To Contact Physical Therapy / Physical Medicine And Rehab Diagnoses Acute right-sided thoracic back pain Acute right-sided low back pain without sciatica Jill Nolen PA-C [address] [id number] Referral ID Status Reason Start Date Expiration Date Visits Requested Visits Authorized [id number] Authorized Specialty Services Required 04/26/2024 999 999 Question Answer Referral Priority Within 3 days (urgent) Where should this appointment be scheduled? [facility] Reason for Visit * Reason Comments Acute C/O pain in R side o f lower back that radiates around to R side of abdomenOnset x several weeks ago and is not getting any better Denies any injury to area-pain is worse with movement Encounter Details Date Type Department Care Team (Late st Contact Info) Description 04/26/2024 1:20 PM EDT Office Visit [place] [facility] [address] [phone] Jill Nolen PA-C [address] [address] Acute right-sided thoracic back pain*; Acute right-sided low back pain without sciatica; Encounter for long-term (current) use of medications Allergies Active Allergy Reactions Criticality Noted Date [...] as of this encounter (statuses as of 05/10/2024) Medications Medication Sig Dispensed Refills Start Date [...] Tablet by mouth in the morning. Active Amoxicillin-Pot Clavulanate 875-125 MG Oral Tablet (Augmentin) Take 1 Tablet by mouth in the morning and 1 Tablet before bedtime. Do all this for 10 days. 20 Tablet 01/18/2024 04/26/20 24 Discontinue d(Patient preference/ discontinua tion) HYDROcodone-Acetam inophen 7.5-325 MG Oral TabletIndications: Controlled substance agreement signed,Status post right knee replacement,Rotato r cuff syndrome of left shoulder Take 1 Tablet by mouth every 8 hours as needed for Pain, Breakthrough or Pain, Severe. 30 Tablet 02/15/2024 05/05/20 24 Discontinue d(Refill) Ciprofloxacin-dexA METHasone 0.3-0.1 % Otic SuspensionIndicati ons:Hx of mastoidectomy,Front Desk neisha otorrhea of left ear Instill 4 Drops into both ears in the morning and 4 Drops before bedtime. Do all this for 14 days. 7.5 mL 2 04/20/2024 05/04/20 24 documented as of this encounter (statuses as of 05/10/2024) Active Problems Problem Noted Date Diagnosed Date [...] as of this encounter (statuses as of 05/10/2024) Resolved Problems Problem Noted Date Diagnosed Date [...] as of this encounter (statuses as of 05/10/2024) Immunizations Name Administration Dates Next Due PPD [...] Sign Reading Time Taken Comments Blood Pressure 130/84 04/26/2024 1:17 PM EDT Pulse 84 04/26/2024 1:17 PM EDT Temperature 36.7 C (98.1 F) 04/26/2024 1:17 PM ED T Respiratory Rate 18 04/26/2024 1:17 PM EDT Oxygen Saturation 95% 04/26/2024 1:17 PM EDT Inhaled Oxygen Concentration - - [...] as of this encounter Progress Notes * Jill Nolen PA-C - 04/26/2024 1:24 PM EDT Images from the original note were not included. History of Present Illness Chief Complaint Patient presents with Acute C/O pain in R side of lower back that radiates around to R side of abdomen Onset x several weeks ago and is not getting any better Denies any injury to area-pain is worse with movement Patient presents complaining of pain in right lower back that radiates around to right lower abdomen. Sitting still, pain is mild. She will get sharp, sudden jabs of pain with movement. Started several weeks ago and not improving. Pain is aggravated with movement. 3 weeks ago, she went on vacation and was sitting in car for over 10 hours. But she doesn't recall an injury. No N/V/D. No voiding symptoms. No fever or chills. No old injuries to back, but has history sciatica on right. She is currently in PT for sciatic, though has not been there for a few weeks due to vacation. Current Medications: Ciprofloxacin-dexAMETHasone 0.3-0.1 % Otic Suspension Metoprolol Tartrate 25 MG Oral Tablet (Lopressor) Fluticasone Propionate 50 MCG/ACT Nasal Suspension (Flonase) Bumetanide 1 MG Oral Tablet (Bumex) Potassium Chloride ER 10 MEQ Oral Tablet Extended Release Diclofenac Sodium 75 MG Oral Tablet Delayed Release (Voltaren) Montelukast Sodium 10 MG Oral Tablet (Singulair) Spironolactone 25 MG Oral Tablet (Aldactone) BiPAP Zinc 50 MG Oral Tablet Ascorbic Acid 1000 MG Oral Tablet Cholecalciferol 25 MCG (1000 UT) Oral Capsule Multivitamin Adult Extra C Oral Tablet Chewable HYDROcodone-Acetaminophen 7.5-325 MG Oral Tablet ALPRAZolam 0.5 MG Oral Tablet (Xanax) Baclofen 10 MG Oral Tablet (Lioresal) Physical Exam BP 130/84 | Pulse 84 | Temp 36.7 C (98.1 F) (Tympanic) | Resp 18 | SpO2 95% Physical Exam Vitals and nursing note reviewed. Constitutional: General: She is not in acute distress. Appearance: Normal appearance. She is obese. She is not ill-appearing, toxic- appearing or diaphoretic. Cardiovascular: Rate and Rhythm: Normal rate. Pulmonary: Effort: Pulmonary effort is normal. Musculoskeletal: Cervical back: Normal range of motion. Thoracic back: Tenderness present. Decreased range of motion. Lumbar back: Tenderness present. Decreased range of motion. Back: Right hip: Normal. Right lower leg: No edema. Left lower leg: No edema. Neurological: Mental Status: She is alert and oriented to person, place, and time. Psychiatric: Mood and Affect: Mood normal. Assessment and Plan Acute right-sided thoracic back pain - URINALYSIS, POINT OF CARE (ENTER/EDIT) - PHYSICAL THERAPY REFERRAL OP Acute right-sided low back pain without sciatica - PHYSICAL THERAPY REFERRAL OP Encounter for long-term (current) use of medications - PAIN MANAGEMENT DRUG PANEL, URINE W/ INTERPRETATION; Future Patient following with PCP for chronic pain management. However patient is in need of a urine drug screen prior to her next refill from her PCP. Checking UA today anyway to rule out renal problem as patient has right flank pain. Will send urine for urine drug screen for patient. Patient understandsthat I will not refill controlled substance. She willing need to follow-up with her PCP for refills. UA was unremarkable. Patient presenting with muscle strain right sided midback. Recommend physical therapy, gentle stretching, and heat. Wrap-Up Return if symptoms worsen or fail to improve. Time: I spent a total of 20-29 minutes (exact time 20 mins) on the date of service in preparation, delivery, and documentation of the care provided to Ramona Stringer excluding any time spent in the performance of separately billed services. This note was completed using the dictation program Fluency Direct. As such, there may be misspellings, word substitutions, or other variations that should not change the essence of the clinical content of this encounter note. Please direct questions to me if need for clarification arises. documented in this encounter Plan of Treatment Upcoming Encounters Date Type Department Care Team (Late st Contact Info) Description 05/11/2024 12:40 PM EDT Office Visit Nutrition & Weight Management, [facility] [address] [place] [address] Corrina Callahan PA-C [address] [place] [address] 05/11/2024 2:00 PM EDT Nurse Only Nutrition & Weight Management, [facility] [address] [place] [address] Srivastava, Nutrition Ed Class 1 [facility] [address] [place] [address] 05/12/2024 3:00 PM EDT Office Visit Audiology [facility] [address] [place] [address] Corazon Meza Au.D. [address] [place] [address] 05/12/2024 4:00 PM EDT Office Visit Otolaryngology [facility] [address] [place] [address] Vikash Goddard PA-C [address] [place] [address] 05/13/2024 10:45 AM EDT Appointment Radiology, [facility] [address] [place] [address] 05/25/2024 3:30 PM EDT Office Visit Cardiology, [facility] [address] [place] [address] Gayle Marx PA-C [address] [place] [address] 06/02/2024 4:00 PM EDT [facility] [address] [place] [phone] Jenny Pressley MD [address] [place] [address] 06/29/2024 1:30 PM EDT Office Visit Interventional [facility], [facility] [place] [address] Aidee Bernstein MD [address] [place] [address] 09/30/2024 2:30 PM EST Office Visit [facility]ology [facility] [address] [facility] [place] [address] Femi Bal DO [address] [facility] [place] [address] Scheduled Referrals Name Type Priority Associated Diagnoses Orde r Schedule PHYSICAL THERAPY REFERRAL OP Referral Within 3 days (urgent) Acute right-sided thoracic back pain Acute right-sided low back pain without sciatica Ordered: 04/26/2024 Health Maintenance Due Date Last Done Comments [...] Procedure Name Priority Date/Time Associated Diagnosis Comments URINALYSIS, POINT OF CARE (ENTER/EDIT) Routine 04/26/2024 1:57 PM EDT Acute right-sided thoracic back pain PAIN MANAGEMENT DRUG PANEL, URINE W/ INTERPRETATION Routine 04/26/2024 1:57 PM EDT Encounter for long-term (current) use of medications documented in this encounter Results * PAIN MANAGEMENT DRUG PANEL, URINE W/ INTERPRETATION (04/26/2024 1:57 PM EDT) Compliance Interpretation Based on the medication information provided: The negative screening results are CONSISTENT with the information provided. Confirmatory testing is available upon request. 04/27/2024 4:53 PM EDT [facility] Comment:Changed Report: Prev iously reported on 04/27/2024 at 1208 EDT. See Results History in [facility] for previous versions of the report. Amphetamines Screen, U Negative Negative 04/27/2024 4:53 PM EDT LABORATORY C Benzodiazepines Screen, U Negative Negative 04/27/2024 4:53 PM EDT [facility] Cannabinoids Screen, U Negative Negative 04/27/2024 4:53 PM EDT LABORATORY C Cocaine Metabolite Screen, U Negative Negative 04/27/2024 4:53 PM EDT LABORATORY [facility] [place] Fentanyl Screen, U Negative Negative 2023 4:53 PM EDT LABORATORY [facility] [place] Hydrocodone Screen, U Negative Negative 04/27/2024 4:53 PM EDT LABORATORY [facility] [place] Methadone Metabolite Screen, U Negative Negative 04/27/2024 4:53 PM EDT LABORATORY [facility] [place] Morphine/Codeine Screen, U Negative Negative 04/27/2024 4:53 PM EDT LABORATORY [facility] [place] Oxycodone Screen, U Negative Negative 04/27/2024 4:53 PM EDT LABORATORY [facility] [place] Valid Interpretation Normal 04/27/2024 4:53 PM EDT LABORATORY [facility] [place] Creatinine, U 161 mg/dL 04/27/2024 4:53 PM EDT LABORATORY [facility] [place] Urine Urine specimen obtained by clean catch procedure / Unknown Non-blood Collection / Unknown 04/26/2024 1:57 PM EDT 04/26/2024 4:41 PM EDT Narrative LABORATORY [facility] [place] - 04/27/2024 4:53 PM EDT Cutoff Concentrations: Drug Level Amphetamines 500 ng/mL Benzodiazepines 100 ng/mL Cannabinoids 50 ng/mL Cocaine Metabolite 150 ng/mL Fentanyl 1 ng/mL Hydrocodone / Hydromorphone 300 ng/mL Methadone Metabolite 100 ng/mL Morphine / Codeine 300 ng/mL Oxycodone / Oxymorphone 100 ng/mL Screening results are presumptive and can only be used for medical purposes. Confirmatory testing is available upon request. Jill Nolen PA-C LAB URINE ORDERABLE S Performing Organization Address City/State/[facility] Co de Phone Number LABORATORY [facility] [place] [address] [place] [address] * URINALYSIS, POINT OF CARE (ENTER/EDIT) (04/26/2024 1:57 PM EDT) Color, Urine Dark Yellow Yellow or Light Yellow Clarity, Urine Clear Clear Glucose, Urine Negative Negative mg/dL Bilirubin, Urine Negative Negative Ketone, Urine Negative Negative mg/dL Specific [place], Urine 1.025 1.003 - 1.030 Blood, Urine Negative Negative pH, Urine 5.5 5.0 - 7.5 units Protein, Urine Negative Negative mg/dL Urobilinogen, Urine 0.2 0.2 - 1.0 mg/dL Nitrite, Urine Negative Negative Esterase, Urine Negative Negative Urine 04/26/2024 1:57 PM EDT Jill Siomara Nolen PA-C LAB POINT OF CARE T EST ENTER/EDIT ORDERABLES documented in this encounter Visit Diagnoses Diagnosis Acute right-sided thoracic back pain- Primary Acute right-sided low back pain without sciatica Encounter for long-term (current) use of medications Encounter for long-term (current) use of other medications documented in this encounter Advance Directives * [...] Power of Attor kathy? No Care Teams Hourly Associate Relationship Specialty Start Date End Date Jenny Pressley MD [address] [place] [address] PCP - General Internal Medicine 11/20/23 documented as of this encounter
--- OUTSIDE RECORDS SUMMARY | 2024-09-27 11:13 | External Medical Summary | Summary of Care ---
Author Name Unknown Organization [facility] Address [address] [place] [address] Phone [phone] Care Team Providers Care Engine Cowling Installer Name Role Phone Jenny Pressley MD Primary Care Provider [phone] Reason for Visit * Reason Onset Date Comments Medication Question 05/06/2024 Encounter Details Date Type Department Care Team (Late st Contact Info) Description 05/06/2024 Telephone [facility] [address] [place] [address] Jenny Pressley MD [address] [place] [address] Medication Question Allergies Active Allergy [...] PHARM Tech - 05/06/2024 8:52 AM EDT [facility] Pharmacy calling regarding Hydrocodone-APAP. Dose is on clinical project coordinator backorder and is not in stock. Pharmacy states that they have 7.5-300mg dose available and are asking if PCP could send a new RX in for that strength. Please advise. Thank you, Niurka Zacarias, Etl Tester [facility] ([facility] 05/06/2024,8:53 AM documented in this encounter Plan of Treatment Upcoming Encounters Date Type Department Care Team (Late st Contact Info) Description 05/11/2024 12:40 PM EDT Office Visit Nutrition & Weight Management, [facility] [address] [place] [address] Corrina Callahan PA-C [address] [place] [address] 05/11/2024 2:00 PM EDT Nurse Only Nutrition & Weight Management, [facility] [address] [place] [address] Srivastava, Nutrition Ed Class 1 [facility] [address] [place] [address] 05/12/2024 3:00 PM EDT Office Visit Audiology [facility] [address] [address] Corazon Meza Au.D. [address] [place] [address] 05/12/2024 4:00 PM EDT Office Visit Otolaryngology [facility] [address] [place] [address] Vikash Goddard PA-C [address] [address] 05/13/2024 10:45 AM EDT Appointment Radiology, [facility] [address] [place] [address] 05/25/2024 3:30 PM EDT Office Visit Cardiology, [facility] [address] [place] [address] Gayle Marx PAPaulaC [address] [place] [address] 06/02/2024 4:00 PM EDT Office Visit [address] [place] [phone] Jenny Pressley MD [address] [place] [address] 06/29/2024 1:30 PM EDT Office Visit Interventional Pain Center, [facility] [place] [address] Aidee Bernstein MD [address] [place] [address] [place] [address] 09/30/2024 2:30 PM EST Office Visit [facility]ol[facility]ology [facility] [address] [facility] [place] [address] Femi Bal DO [address] [facility] [place] [address] Health Maintenance Due Date Last Done Comments [...] 01/21/2029 01/22/2024, 1204/2023, 05/18/2023, Additional history exists RETIRED - COLONOSCOPY-EVERY [...] Power of Attor kathy? No Care Teams Engine Cowling Installer Relationship Specialty Start Date End Date Jenny Pressley MD [address] [place] [address] PCP - General Internal Medicine 11/20/23 documented as of this encounter
--- OUTSIDE RECORDS SUMMARY | 2024-09-27 11:13 | External Medical Summary | Summary of Care ---
Author Name Unknown Organization [facility] Address [address] [place] [address] Phone [phone] Care Team Providers Care Social Work Supervisor Name Role Phone Jenny Pressley MD Primary Care Provider [phone] Reason for Visit * Reason Onset Date Comments Medication Question 05/06/2024 Encounter Details Date Type Department Care Team (Late st Contact Info) Description 05/06/2024 Telephone [facility] [address] [place] [address] Jenny Pressley MD [address] [place] [address] Medication Question Allergies Active Allergy [...] follows: Patient name: Ramona Stringer ID number: [id number] BIN number: [id number] PCN number: [id number] Group number: [id number] Subscriber name: Ramona Stringer Primary or Secondary Insurance:Primary Medication: HYDROcodone-Acetaminophen 7.5-300 MG Oral Tablet Reason for Request: [place] Required Pharmacy and phone number: [id number] [address] [phone] Rx plan and phone number: [facility] [phone] Is this a new medication for the patient? Yes What alternative medications does the pharmacy have in stock?: N/A Thank you, Diane Danielle CPhT Manager Media Relations II [facility] ([facility]) 05/06/2024,11:40 [...] PHARM Tech - 05/06/2024 8:[address] [facility] Pharmacy calling regarding Hydrocodone-APAP. Dose is on electrician elevator maintenance backorder and is not in stock. Pharmacy states that they have 7.5-300mg dose available and are asking if PCP could send a new RX in for that strength. Please advise. Thank you, Niurka Zacarias, Screen Printing Paster [facility]) 05/06/2024,8:53 AM documented in this encounter Plan of Treatment Upcoming Encounters Date Type Department Care Team (Late st Contact Info) Description 05/11/2024 12:40 PM EDT Office Visit Nutrition & Weight Management, [facility] [address] [place] [address] Corrina Callahan PA-C [address] [address] 05/11/2024 2:00 PM EDT Nurse Only Nutrition & Weight Management, [facility] [address] [place] [address] Srivastava, Nutrition Ed Class 1 [facility] [email or web address] [place] [address] 05/12/2024 3:00 PM EDT Office Visit Audiology [facility] [address] [place] [address] Corazon Meza Au.D. [address] [place] [address] 05/12/2024 4:00 PM EDT Office Visit Otolaryngology [facility] [address] [place] [address] Vikash Goddard PA-C [address] [place] [address] 05/13/2024 10:45 AM EDT Appointment Radiology, [place] [address] [place] [address] 05/25/2024 3:30 PM EDT Office Visit Cardiology, [facility] [address] [place] [address] Gayle Marx PA-C [address] [place] [address] 06/02/2024 4:00 PM EDT Office Visit [facility] [address] [place] [phone] Jenny Pressley MD [address] [place] [address] 06/29/2024 1:30 PM EDT Office Visit Interventional Pain Center, [facility] [address] [place] [address] Aidee Bernstein MD [address] [place] [address] [place] [address] 09/30/2024 2:30 PM EST Office Visit Otolaryngology [facility] [address] [place] [address] Femi Bal, [address] [place] [address] Health Maintenance Due Date Last Done Comments [...] Power of Attor kathy? No Care Teams Social Work Supervisor Relationship Specialty Start Date End Date Jenny Pressley MD [address] [place] [address] PCP - General Internal Medicine 11/20/23 documented as of this encounter
--- OUTSIDE RECORDS SUMMARY | 2024-09-27 11:14 | External Medical Summary | Summary of Care ---
Author Name Unknown Organization [facility] Address [address] [place] [address] Phone [phone] Care Team Providers Care Insulation Worker Apprentice Name Role Phone Jenny Pressley MD Primary Care Provider [phone] Reason for Visit * Reason Onset Date Comments Advice 05/05/2024 Encounter Details Date Type Department Care Team (Late st Contact Info) Description 05/05/2024 Telephone [facility] [address] [place] [address] Jenny Pressley MD [address] [place] [address] Advice Allergies Active Allergy Reactions Criticality Noted Date [...] as of this encounter (statuses as of 05/05/2024) Medications Medication Sig Dispensed Refills Start Date [...] With food.. 60 Tablet 3 02/15/2024 Active HYDROcodone-Acetami nophen 7.5-325 MG Oral TabletIndications:C ontrolled substance agreement signed,Status post right knee replacement,Rotator cuff syndrome of left shoulder Take 1 Tablet by mouth every 8 hours as needed for Pain, Breakthrough or Pain, Severe. 30 Tablet 02/15/2024 Active Bumetanide 1 MG Oral Tablet [...] Tablet by mouth in the morning. Active documented as of this encounter (statuses as of 05/05/2024) Active Problems Problem Noted Date Diagnosed Date [...] as of this encounter (statuses as of 05/05/2024) Resolved Problems Problem Noted Date Diagnosed Date [...] as of this encounter (statuses as of 05/05/2024) Immunizations Name Administration Dates Next Due PPD [...] Telephone Encounter - Karlie Hill OSA - 05/05/2024 2:43 PM EDT Done. 05/05/2024 * Telephone Encounter - Sharon Chaudhry LPN - 05/05/2024 12:52 PM EDT Please assist with scheduling recheck * Telephone Encounter - Sharon Chaudhry LPN - 05/05/2024 12:52 PM EDT Call Details Pain and/or Headache PAIN: Yes Pain Level: 9/10 Location of Pain: Lower Back How long has the pain lasted? Several Weeks Does the pain radiate? Yes Is there a clear cause for the pain? No Has the pain changed? Yes Does anything make the pain better? Sitting Still Does anything make the pain worse? Moving Patient Request Patient Requesting: Appointment,Advice,Medication Prescribed * Telephone Encounter - Lesley Parmar OSA - 05/05/2024 11:08 AM EDT Patient was seen on 04/26/2024 in [facility] for back pain. It's progressively getting worse and patient requesting to be seen by PCP. Please see call details. documented in this encounter Plan of Treatment Upcoming Encounters Date Type Department Care Team (Late st Contact Info) Description 05/05/2024 5:00 PM EDT Office Visit [address] [place] [address] Jenny Pressley MD [address] [place] [address] 05/11/2024 12:40 PM EDT Office Visit Nutrition & Weight Management, [facility] [address] [facility] [place] [address] Corrina Callahan PA-C [address] [place] [address] 05/11/2024 2:00 PM EDT Nurse Only Nutrition & Weight Management, [facility] [address] [facility] [place] [address] Srivastava Nutrition Ed Class 1 [facility] [place] [address] 05/12/2024 3:00 PM EDT Office Visit Audiology [facility] [address] [facility] [place] [address] Corazon Meza Au.D. [address] [place] [address] 05/12/2024 4:00 PM EDT Office Visit Otolaryngology [facility] [address] [place] [address] Vikash Goddard PA-C [address] [place] [address] 05/25/2024 3:30 PM EDT Office Visit Cardiology, [facility] [place] [address] Gayle Marx PA-C [address] [place] [address] 06/02/2024 4:00 PM EDT Office Visit [facility] [address] [place] [facility] [place] [id number] Jenny Pressley MD [address] [facility] [place] [id number] 09/30/2024 2:30 PM EST Office Visit Otolaryngology [facility] [address] [place] [address] Femi Bal DO [address] [place] [address] Health Maintenance Due Date Last Done Comments [...] Power of Attor kathy? No Care Teams Insulation Worker Apprentice Relationship Specialty Start Date End Date Jenny Pressley MD [address] [place] [address] PCP - General Internal Medicine 11/20/23 documented as of this encounter
--- OUTSIDE RECORDS SUMMARY | 2024-09-27 11:14 | External Medical Summary | Summary of Care ---
Author Name Unknown Organization [facility] Address [address] [place] [address] Phone [phone] Care Team Providers Care Pocket Setter Lockstitch Name Role Phone Jenny Pressley MD Primary Care Provider [phone] Reason for Visit * Reason Onset Date Comments Medication Question 05/06/2024 Encounter Details Date Type Department Care Team (Late st Contact Info) Description 05/06/2024 Telephone [facility] [address] [place] [address] Jenny Pressley MD [address] [place] [address] Medication Question Allergies Active Allergy [...] encounter Miscellaneous Notes * Telephone Encounter - Niurka Zacarias PHARM Tech - 05/06/2024 8:52 AM EDT [facility] Pharmacy calling regarding Hydrocodone-APAP. Dose is on sheet rock sander backorder and is not in stock. Pharmacy states that they have 7.5-300mg dose available and are asking if PCP could send a new RX in for that strength. Please advise. Thank you, Niurka Zacarias, Field Operations Technician [facility] 05/06/2024,8:53 AM documented in this encounter Plan of Treatment Upcoming Encounters Date Type Department Care Team (Late st Contact Info) Description 05/11/2024 12:40 PM EDT Office Visit Nutrition & Weight Management, [facility] [address] [place] [address] Corrina Callahan PA-C [address] [place] [address] 05/11/2024 2:00 PM EDT Nurse Only Nutrition & Weight Management, [facility] [address] [place] [address] Srivastava, Nutrition Ed Class 1 [facility] [address] [place] [address] 05/12/2024 3:00 PM EDT Office Visit Audiology [facility] [address] [place] [address] Corazon Meza Au.D. [address] [place] [address] 05/12/2024 4:00 PM EDT Office Visit Otolaryngology [facility] [address] [place] [address] Vikash Goddard PA-C [address] [place] [address] 05/13/2024 10:45 AM EDT Appointment Radiology, [place] [address] [place] [address] 05/25/2024 3:30 PM EDT Office Visit Cardiology, [facility] [address] [place] [address] Gayle Marx PA-C [address] [place] [address] 06/02/2024 4:00 PM EDT Office Visit [facility] [address] [place] [address] Jenny Pressley MD [address] [place] [address] 06/29/2024 1:30 PM EDT Office Visit Interventional Pain Center, [facility] [address] [place] [address] Aidee Bernstein MD [address] [place], [place] [address] [address] 09/30/2024 2:30 PM EST Office Visit Otolaryngology [facility] [address] [place] [address] Femi Bal DO [address] [place] [address] Health Maintenance Due Date Last Done Comments [...] Power of Attor kathy? No Care Teams Pocket Setter Lockstitch Relationship Specialty Start Date End Date Jenny Pressley MD [address] [facility] [place] [address] PCP - General Internal Medicine 11/20/23 documented as of this encounter
--- OUTSIDE RECORDS SUMMARY | 2024-09-27 11:14 | External Medical Summary | Summary of Care ---
Author Name Unknown Organization [facility] Address [address] [place] [address] Phone [phone] Care Team Providers Care Business Developer Name Role Phone Jenny Pressley MD Primary Care Provider [phone] Reason for Referral * Evaluate & Treat - Unlimited Visits (Within 10 days (routine)) - Authorized Specialty Diagnoses / Procedures Referred By Contac t Referred To Contact Pain Management / Pain Medicine Diagnoses Mid back pain Abdominal pain, generalized DDD (degenerative disc disease), lumbar Jenny Pressley MD [address] [place] [address] Referral ID Status Reason Start Date Expiration Date Visits Requested Visits Authorized [id number] Authorized Specialty Services Required 05/05/2024 999 999 Question Answer Referral Priority Within 10 days (routine) Where should this appointment be scheduled? [facility] Reason for referral? Interventional Pain Management - (Injection) What condition is the patient being referred for? Back Axial What is the preferred location to have this test performed? [facility] Comments Patient Name: Ramona Stringer Date of : 1955 Department Phone Number: MRI or CT (if unable to have a MRI) is recommended if any of the following apply: 1. Patient has neck or back pain with radiation to extremities. A previous MRI will be accepted if symptoms unchanged since prior MRI. 2. Spinal surgery since last MRI. If yes, order a MRI with and without contrast. 3. Hx or ongoing cancer treatment. Patient will need spine x-ray (Ap/Lat) for axial neck or back pain if not done previously. Fax No. [facility] [phone] or contact front desk host [phone] Fax No. [facility] [phone] or contact front desk host [phone] Fax No. [facility] [phone] or contact front desk host [phone] * Precert (Within 10 days (routine)) - Pending Review Specialty Diagnoses / Procedures Referred By Contac t Referred To Contact Radiology Diagnoses Mid back pain Abdominal pain, generalized DDD (degenerative disc disease), lumbar Procedures MRI L SPINE WO CONTRAST Jenny Pressley MD [address] [place] [address] Referral ID Status Reason Start Date Expiration Date V isits Requested Visits Authorized [id number] Pending Review 05/05/2024 999 999 Reason for Visit * Reason Comments Acute Pt here due to havin g back pain that is getting worse Encounter Details Date Type Department Care Team (Latest Contact Info) Description 05/05/2024 5:00 PM EDT Office Visit [facility] [address] [place] [address] Jenny Pressley MD [address] [place] [address] DDD (degenerative disc disease), lumbar*; Controlled substance agreement signed; Status post right knee replacement; Rotator cuff syndrome of left shoulder; Need for pneumococcal vaccination; Mid back pain; Abdominal pain, generalized; Status post ablation of atrial fibrillation; Hypertensive heart disease with chronic systolic congestive heart failure (HCC); Dilated cardiomyopathy (HCC) Allergies Active Allergy Reactions Criticality Noted [...] mouth in the morning. Active HYDROcodone-Acetam inophen 7.5-325 MG Oral TabletIndications: Controlled substance agreement signed,Status post right knee replacement,Rotato r cuff syndrome of left shoulder,Mid back pain,DDD (degenerative disc disease), lumbar Take 1 Tablet by mouth every 8 hours as needed for Pain, Breakthrough or Pain, Severe. 60 Tablet 05/05/2024 Active HYDROcodone-Acetam inophen 7.5-325 MG Oral TabletIndications: Controlled substance agreement signed,Status post right knee replacement,Rotato r cuff syndrome of left shoulder Take 1 Tablet by mouth every 8 hours as needed for Pain, Breakthrough or Pain, Severe. 30 Tablet 02/15/2024 4 Discontinu ed(Refill) documented as of this encounter (statuses as [...] Sign Reading Time Taken Comments Blood Pressure 118/78 05/05/2024 4:58 PM EDT Pulse 75 05/05/2024 4:58 PM EDT Temperature 36.8 C (98.3 F) 05/05/2024 4:58 PM ED T Respiratory Rate 18 05/05/2024 4:58 PM EDT Oxygen Saturation 95% 05/05/2024 4:58 PM EDT Inhaled Oxygen Concentration - - Weight 117.9 kg (260 lb) 05/05/2024 4:58 PM EDT Height - - Body Mass Index 42.39 04/20/2024 2:41 PM EDT documented in this encounter Functional [...] * Patient Instructions* Kaleigh Orta LPN - 05/05/2024 5:00 PM EDT ~~PATIENT INSTRUCTIONS FOR PNEUMOCOCCAL VACCINE~~ [...] Progress Notes * Jenny Pressley MD - 05/05/2024 5:24 PM EDT Images from the original note were not included. Subjective Ramona Stringer is a 68 year old female. Chief Complaint Patient presents with Acute Pt here due to having back pain that is getting worse HPI: Here for progressing mid to lower back pain with radiating B/L abd pain Was seen in [facility] for severe pain too Has been doing PT but it made worse with severe mid to lower back pain Known lumbar DDD, obesity Also has knee, shoulder OA , Refill on pain med today Reviewed U tox and signed on NETTIE Discussed side effect , half-way use complication of opioid pain med Pt understood Since PT is causing more pain, advised her to hold on Will get MRI test and pain medicine referral Known CMP, systolic CHF, afib, s/p ablation , f/ with cardio Taking all her meds BP stable, HR - controlled , irregular though PMH: Patient Active Problem List Diagnosis ADVANCE [...] before bedtime. With food.. 60 Tablet 3 Bumetanide 1 MG Oral Tablet (Bumex) Take 1 Tablet by mouth in the morning and 1 Tablet before bedtime. 180 Tablet 2 Potassium Chloride ER 10 MEQ Oral Tablet Extended Release Take 1 Tablet by mouth in the morning. 90Tablet 3 Fluticasone Propionate 50 MCG/ACT Nasal Suspension (Flonase) SPRAY 2 SPRAYS INTO EACH NOSTRIL IN THE MORNING 48 mL 1 Metoprolol Tartrate 25 MG Oral Tablet (Lopressor) Take 1 Tablet by mouth in the morning. HYDROcodone-Acetaminophen 7.5-325 MG Oral Tablet Take 1 Tablet by mouth every 8 hours as needed forPain, Breakthrough or Pain, Severe. 60 Tablet 0 No current facility-administered medications for this visit. 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 HTN, goal to be determined Osteoarthrosis, unspecified whether generalized or localized, lower leg Other chronic sinusitis PAF (paroxysmal atrial fibrillation) ([facility]) Pure hypercholesterolemia Sleep apnea Systolic CHF ([facility]) Past Surgical History: Procedure Laterality Date DELIVERY COLONOSCOPY, DIAGNOSTIC (RECTUM) N/A 06/24/2016 hyperplastic polyp/recall 5 years/COLONOSCOPY FLEXIBLE PROXIMAL DIAGNOSTIC performed by Eden Foreman DO at ENDOSCOPY [facility] EARDRUM OPENING,LOCAL ANESTH Tympanostomy tubes; cholesteotoma repair EGD, FLEXIBLE, DIAGNOSTIC N/A 06/10/2016 normal/ESOPHAGOGASTRODUODENOSCOPY (EGD), FLEXIBLE, TRANSORAL, DIAGNOSTIC performed by Eden Foreman DO at ENDOSCOPY [facility] EXPLORATION OF ABDOMEN N/A 07/24/2016 EXPLORATORY LAPAROTOMY performed by Eden Hassan DO at OR [facility] PARTIAL REMOVAL OF THYROID LOBE had [...] RECONSTRUCTION performed by SEA MCCARTY at OR [facility] Review of patient's allergies indicates: Allergen Reactions [...] Mother pacer Hypertension Mother Heart Disorder Father [place] Heart Disorder Brother A.fib Mental Disorder Daughter [...] Not on file Social History Narrative [facility] INFORMATION ENVIRONMENTAL HISTORY: Type of Home: [...] Stability Do you currently live in a senior care or have no steady place to sleep [...] of Systems Constitutional: Positive for activity change (mid to lower back pain, radiating pain , severe), appetite change and fatigue. Negative for chills, diaphoresis, fever and unexpected weight change. Respiratory: Positive for shortness of breath (mild on exertion). Negative for cough, chest tightness and wheezing. Cardiovascular: Positive for leg swelling (mild). Negative for chest pain and palpitations. Gastrointestinal: Positive for abdominal pain (B/L radiating pain), constipation, diarrhea and nausea. Negative for abdominal distention, blood in stool and vomiting. Genitourinary: Negative for dysuria, hematuria and urgency. Musculoskeletal: Positive for arthralgias and back pain. Allergic/Immunologic: Positive for environmental allergies. Neurological: Positive for numbness (abd area, burning sensation). Negative for dizziness, weaknessand light-headedness. Psychiatric/Behavioral: Positive for sleep disturbance. Negative for agitation and behavioral problems. The patient is nervous/anxious. Objective BP 118/78 | Pulse 75 | Temp 36.8 C (98.3 F) (Tympanic) | Resp 18 | Wt 117.9 kg (260 lb) | SpO2 95% | BMI 42.39 kg/m | BSA 2.34 m Physical Exam Constitutional: General: She is not in acute distress. Appearance: Normal appearance. She is obese. She is not ill-appearing, toxic- appearing or diaphoretic. HENT: Head: Normocephalic and atraumatic. Nose: Nose normal. Eyes: Extraocular Movements: Extraocular movements intact. Cardiovascular: Rate and Rhythm: Normal rate. Rhythm irregular. Pulses: Normal pulses. Pulmonary: Effort: Pulmonary effort is normal. No respiratory distress. Abdominal: General: There is no distension. Palpations: Abdomen is soft. There is no mass. Tenderness: There is abdominal tenderness. There is no guarding or rebound. Musculoskeletal: General: Tenderness present. Back: Right lower leg: No edema. Left lower leg: No edema. Neurological: General: No focal deficit present. Mental Status: She is alert and oriented to person, place, and time. Psychiatric: Behavior: Behavior normal. ASSESSMENT/PLAN: DDD (degenerative disc disease), lumbar (Primary) - MRI L SPINE WO CONTRAST; Future; Expected date: 05/05/2024 - PAIN MEDICINE REFERRAL OP - HYDROcodone-Acetaminophen 7.5-325 MG Oral Tablet; Take 1 Tablet by mouth every 8 hours as needed for Pain, Breakthrough or Pain, Severe. Controlled substance agreement signed - HYDROcodone-Acetaminophen 7.5-325 MG Oral Tablet; Take 1 Tablet by mouth every 8 hours as needed for Pain, Breakthrough or Pain, Severe. Status post right knee replacement - HYDROcodone-Acetaminophen 7.5-325 MG Oral Tablet; Take 1 Tablet by mouth every 8 hours as needed for Pain, Breakthrough or Pain, Severe. Rotator cuff syndrome of left shoulder - HYDROcodone-Acetaminophen 7.5-325 MG Oral Tablet; Take 1 Tablet by mouth every 8 hours as needed for Pain, Breakthrough or Pain, Severe. Need for pneumococcal vaccination Mid back pain - MRI L SPINE WO CONTRAST; Future; Expected date: 05/05/2024 - PAIN MEDICINE REFERRAL OP - HYDROcodone-Acetaminophen 7.5-325 MG Oral Tablet; Take 1 Tablet by mouth every 8 hours as needed for Pain, Breakthrough or Pain, Severe. Abdominal pain, generalized - MRI L SPINE WO CONTRAST; Future; Expected date: 05/05/2024 - PAIN MEDICINE REFERRAL OP Status post ablation of atrial fibrillation Hypertensive heart disease with chronic systolic congestive heart failure (HCC) Dilated cardiomyopathy (HCC) F/u MRI Pain medicine referral F/u with cardio Cont meds Pain med refill Jenny Pressley MD documented in this encounter Nursing Notes * Kaleigh Orta LPN - 05/05/2024 4:52 PM EDT Chief Complaint Patient presents with Acute Pt here due to having back pain that is getting worse documented in this encounter Plan of Treatment Upcoming Encounters Date Type Department Care Team (Late st Contact Info) Description 05/11/2024 12:40 PM EDT Office Visit Nutrition & Weight Management, [facility] [address] [place] [address] Corrina Callahan PA-C [address] [place] [address] 05/11/2024 2:00 PM EDT Nurse Only Nutrition & Weight Management, [facility] [address] [place] [address] Srivastava, Nutrition Ed Class 1 [facility] [address] [place] [address] 05/12/2024 3:00 PM EDT Office Visit Audiology [facility] [address] [place] [address] Corazon Meza Au.D. [address] [place] [address] 05/12/2024 4:00 PM EDT Office Visit Otolaryngology [facility] [address] [place] [address] Vikash Goddard PA-C [address] [place] [address] 05/13/2024 10:45 AM EDT Appointment Radiology, [facility] [address] [place] [address] 05/25/2024 3:30 PM EDT Office Visit Cardiology, [facility] [address] [facility] [place] [address] Gayle Marx PA-C [address] [facility] [place] [address] 06/02/2024 4:00 PM EDT Office Visit Family [facility] [address] [facility] [place] [id number] Jenny Pressley MD [address] [place] [address] 06/29/2024 1:30 PM EDT Office Visit Interventional Pain Center, [facility] [address] [facility] [place] [address] Aidee Bernstein MD [address] [place] [address] [place] [address] 09/30/2024 2:30 PM EST Office Visit Otolaryngology [facility] [address] [facility] [place] [address] Femi Bal DO [address] [facility] [place] [address] Scheduled Orders Name Type Priority Associated Diagnoses Orde r Schedule MRI L SPINE WO CONTRAST Medical Imaging Routine Mid back pain Abdominal pain, generalized DDD (degenerative disc disease), lumbar Expected: 05/05/2024, Expires: 06/05/2025 Scheduled Referrals Name Type Priority Associated Diagnoses Orde r Schedule PAIN MEDICINE REFERRAL OP Referral Within 10 days (routine) Mid back pain Abdominal pain, generalized DDD (degenerative disc disease), lumbar Ordered: 05/05/2024 Health Maintenance Due Date Last Done Comments [...] as of this encounter Visit Diagnoses Diagnosis DDD (degenerative disc disease), lumbar- Primary Degeneration of lumbar or lumbosacral intervertebral disc Controlled substance agreement signed Encounter for long-term (current) use of other medications Status post right knee replacement Rotator cuff syndrome of left shoulder Disorders of bursae and tendons in shoulder region, unspecified Need for pneumococcal vaccination Need for prophylactic vaccination against streptococcus pneumoniae (pneumococcus) Mid back pain Backache, unspecified Abdominal pain, generalized Status post ablation of atrial fibrillation Other postprocedural status Hypertensive heart disease with chronic systolic congestive heart failure (HCC) Dilated cardiomyopathy (HCC) Other primary cardiomyopathies documented in this encounter Advance Directives * [...] Power of Attor kathy? No Care Teams Business Developer Relationship Specialty Start Date End Date Jenny Pressley MD [address] [place] [address] PCP - General Internal Medicine 11/20/23 documented as of this encounter
--- OUTSIDE RECORDS SUMMARY | 2024-09-27 11:15 | External Medical Summary ---
Author Name Unknown Address Unknown Organization [id number]:[facility] [place] [address] [facility] [address] Laboratory Report Ordering Provider Test Date Status TERRANCE PHILLIPS 04/26/2024 13:57:41 Final Drugs that require complianc e testing:

Opioids:
Hydrocodone: Quantity 7.5mg Date/Time of last Dose "more than a month ago"

Benzodiazepines
Alprazolam: Quantity 0.5mg Date/Time of last Dose "more than a month ago"

Cutoff Concentrations:
Drug Level
Amphetamines 500 ng/mL
Benzodiazepines 100 ng/mL
Cannabinoids 50 ng/mL
Cocaine Metabolite 150 ng/mL
Fentanyl 1 ng/mL
Hydrocodone / Hydromorphone 300 ng/mL
Methadone Metabolite 100 ng/mL
Morphine / Codeine 300 ng/mL
Oxycodone / Oxymorphone 100 ng/mL

Screening results are presumptive and can only be used for medical purposes. Confirmatory testing is available upon request. Observation Date Value Abnormality Reference (Units) Status COMPLIANCE INTERPRETATION 04/26/2024 13:57:41 Based on the medication information provided: Final COMPLIANCE INTERPRETATION 04/26/2024 13:57:41 The negative screening results are CONSISTENT with the information provided. Confirmatory testing is available upon request. Final Changed Report: Previously r eported on 04/27/2024 at 1208 EDT. See Results History in EPIC for previous versions of the report. Amphetamines, Urine screen 04/26/2024 13:57:41 Negative Negative Final Benzodiazepines, Urine screen 04/26/2024 13:57:41 Negative Negative Final Cannabinoids, Urine screen 04/26/2024 13:57:41 Negative Negative Final Cocaine Metabolite, Urine screen 04/26/2024 13:57:41 Negativ e Negative Final fentaNYL [Presence] in Urine by Screen method 04/26/2024 13:57:41 Negative Negative Final HYDROcodone [Presence] in Ur ine by Screen method 04/26/2024 13:57:41 Negative Negative Final 1-Sojngllncv-1,2-Uhnqczcl-4, 3-Diphenylp yrrolidine (EDDP) [Presence] in Urine 04/26/2024 13:57:41 Negative Negative Final Opiates, Urine screen 04/26/2024 13:57:41 Negative Negative Final oxyCODONE [Presence] in Urin e by Screen method 04/26/2024 13:57:41 Negative Negative Final FORENSIC VALID INTERPRETATION 04/26/2024 13:57:41 Normal Final Creatinine, Urine 04/26/2024 13:57:41 161 (m g/dL) Final Performing Location [facility] [place] [facility] [address]. [facility] [id number]
--- OUTSIDE RECORDS SUMMARY | 2024-09-27 11:15 | External Medical Summary | Summary of Care ---
Author Name Unknown Organization [facility] Address [address] [place] [address] Phone [phone] Care Team Providers Care Slurry Blender Name Role Phone Jenny Pressley MD Primary Care Provider [phone] Reason for Visit * Reason Comments Follow Up Ear infection Encounter Details Date Type Department Care Team (Latest Contact Info) Description 04/20/2024 2:40 PM EDT Office Visit Otolaryngology [facility] [address] [place] [phone] Vikash Goddard PA-C [address] [place] [address] Chronic otorrhea of left ear*; Hx of mastoidectomy Allergies Active Allergy Reactions Criticality Noted [...] as of this encounter (statuses as of 04/20/2024) Medications Medication Sig Dispensed Refills Start Date [...] Tablet by mouth in the morning. Active Ciprofloxacin-dexAM ETHasone 0.3-0.1 % Otic SuspensionIndicatio ns:Hx of mastoidectomy,Chron ic otorrhea of left ear Instill 4 Drops into both ears in the morning and 4 Drops before bedtime. Do all this for 14 days. 7.5 mL 2 04/20/2024 4 Active documented as of this encounter (statuses as of 04/20/2024) Active Problems Problem Noted Date Diagnosed Date [...] as of this encounter (statuses as of 04/20/2024) Resolved Problems Problem Noted Date Diagnosed Date Resolved Date Ileus, postoperative 10/23/2023 024 Paroxysmal atrial fibrillation 10/21/2023 11/27/2023 Severe sepsis with acute organ dysfunction 10/21/2023 11/27/2023 Morbid (severe) obesity due to excess calories [...] as of this encounter (statuses as of 04/20/2024) Immunizations Name Administration Dates Next Due PPD 05/07/2020 documented as of this encounter Social History Tobacco Use Types Packs/Day Years Used Date Smoking Tobacco: Never Passive Smoke Exposure: Past Smokeless Tobacco: Never Tobacco Cessation:Counseling Given: Not Answered Comments:no passive smoke exposures Alcohol Use Standard [...] Pressure - - Pulse - - Temperature 36.8 C (98.3 F) 04/20/2024 2:41 PM ED T Respiratory Rate - - Oxygen Saturation - - Inhaled Oxygen Concentration - - Weight 117.4 kg (258 lb 13.1 oz) 04/20/2024 2:41 PM EDT Height 166.8 cm (5' 5.67") 04/20/2024 2:41 PM ED T Body Mass Index 42.2 04/20/2024 2:41 PM EDT documented in this [...] * Patient Instructions* Vikash Goddard PA-C - 04/20/2024 2:50 PM EDT Drops to both ears twice a day for 14 days Keep water out of ears. If no improvement in next 3-4 days, please send me a message on [employer] [place] or call clinic. documented in this encounter Progress Notes * Vikash Goddard PA-C - 04/20/2024 2:40 PM EDT 04/20/2024 HISTORY OF PRESENT ILLNESS This 68 year old YO female is seen today for two weeks of left otorrhea. Hx of b/l canal wall down mastoidectomies and revision mastoidectomies most recently by Dr. Mai 2011. Her last visit in our office was 09/30/[address] Bal. In the last two weeks left ear has been draining. Otorrhea is malodorous. Hearing is muffled like she has her hands over her ears. She has not been on any recent drops or antibiotics. No recent URI symptoms-- does have chronic [...] Diverticulitis of colon Gout of big toe Body mass index (BMI) of 40.0 to 44.9 in adult (HCC) Elevated troponin Pneumonia Fever of unknown origin [...] performed by Eden Foreman DO at ENDOSCOPY [facility] CREATE EARDRUM OPENING,LOCAL ANESTH Tympanostomy tubes; cholesteotoma repair EGD, FLEXIBLE, DIAGNOSTIC N/A 06/10/2016 normal/ESOPHAGOGASTRODUODENOSCOPY (EGD), FLEXIBLE, TRANSORAL, DIAGNOSTIC performed by Eden Foreman DO at ENDOSCOPY [facility] EXPLORATION OF ABDOMEN N/A 07/24/2016 EXPLORATORY LAPAROTOMY performed by Eden Hassan DO at OR [facility] PARTIAL REMOVAL OF THYROID LOBE had a lump at age 15-16- assumes it was benign REMOVAL OF SMALL INTESTINE W/FUSION N/A 07/24/2016 ENTERECTOMY SMALL BOWEL RESECTION performed by Eden Hassan, DO at OR [facility] REMOVE TONSILS & ADENOIDS, UNDER 12 T & A, age<12 REPAIR OF NASAL SEPTUM ? 2001 Nasal Septum Repair - Dr. Hernández REVISE MIDDLE EAR & MASTOID 12/16/2011 TYMPANOPLASTY MASTOIDECTOMY WITHOUT OSSICULAR RECONSTRUCTION performed by SEA MCCARTY at [facility] [place] Medications Current Outpatient Medications Medication Sig Dispense [...] before bedtime. With food.. 60 Tablet 3 HYDROcodone-Acetaminophen 7.5-325 MG Oral Tablet Take 1 Tablet by mouth every 8 hours as needed forPain, Breakthrough or Pain, Severe. 30 Tablet 0 Bumetanide 1 MG Oral Tablet (Bumex) Take [...] 1 Tablet by mouth in the morning. Ciprofloxacin-dexAMETHasone 0.3-0.1 % Otic Suspension Instill 4 Drops into both ears in the morningand 4 Drops before bedtime. Do all this for 14 days. 7.5 mL 2 No current facility-administered medications for this visit. [...] Mother pacer Hypertension Mother Heart Disorder Father CA Heart Disorder Brother A.fib Mental Disorder Daughter [...] List). PHYSICAL EXAMINATION: Vital Signs: Filed Vitals: 04/20/24 1441 Temp: 36.8 C (98.3 F) TempSrc: Tympanic Weight: 117.4 kg (258 lb 13.1 oz) Height: 1.668 m (5' 5.67") General: this is a healthy appearing female who appears her stated age. The patient is alert and appropriately verbally conversant without hoarseness. Face: The face was inspected and no cutaneous masses or lesions were visualized. There was no erythema or edema noted. Facial movement was symmetric without weakness. No skin lesions were detected. There was no sinus tenderness elicited. The parotid and submandibular glands were normal to palpation. Eyes: Examination of the eyes revealed no lesions. Pupils were equal, round, and reactive to light and accommodation. Extra-ocular muscle function was intact. No nystagmus was observed. Nose: Septum nonobstructing, turbinates normal, no masses, polyps, or mucopus. Oral Cavity: Examination of the oral cavity revealed no mass lesions nor infection. The palate was noted to be intact without evidence of clefting. The tongue exhibited normal mobility. Mucosa was moist without lesion. The lips were free of lesion. Gums were free of inflammation. Dentition: Unremarkable Oropharynx: The oral pharynx was free of mass lesion or mucosal abnormality. The palate was noted to be without lesion. The uvula was normal appearing. The tonsils were surgically absent. Ears: Examination of the ears revealed that the auricles were normally formed with no lesions. The external auditory canals were cleaned of any obstructing cerumen. See below procedure note. Bilateral canal wall down mastoidectomies are noted. There is mild erythema b/l posterior canals and TMs L>R, no active otorrhea to culture. Neck: Visualization and palpation of the neck revealed no mass lesions, no thyromegaly or thyroid masses. No skin lesions or inflammatory processes were detected. The cervical musculature was normal to palpation. Lymphatics (cervical): There were no palpable lymph nodes in the posterior triangle, submandibular triangle, jugulodigastric region, or central neck. Lungs: normal respiratory effort Heart: normal rate ASSESSMENT: 1. Hx of mastoidectomy - Ciprofloxacin-dexAMETHasone 0.3-0.1 % Otic Suspension; Instill 4 Drops into both ears in the morning and 4 Drops before bedtime. Do all this for 14 days. Dispense: 7.5 mL; Refill: 2 2. Chronic otorrhea of left ear - Ciprofloxacin-dexAMETHasone 0.3-0.1 % Otic Suspension; Instill 4 Drops into both ears in the morning and 4 Drops before bedtime. Do all this for 14 days. Dispense: 7.5 mL; Refill: 2 Plan: Ciprodex x 2 weeks. IF does not improve symptoms in 3-4 days consider addition or oral antibiotic. Return in 3-4 weeks for recheck w audio, sooner PRN. Pt verbalized understanding and agrees with plan. Questions/Concerns addressed. EL [facility] [address] [place] [address] 04/20/2024 3:05 PM I spent a total of 20-29 minutes (exact time 24 mins) on the date of service in preparation, delivery, and documentation of the care provided to Ramona Stringer excluding any time spent in the performance of separately billed services. documented in this encounter Nursing Notes * Herbert De Oliveira CMA - 04/20/2024 2:40 PM EDT Chief Complaint Patient presents with Follow Up Ear infection Ramona Stringer is a 68 year old female who presents today with drainage from her left ear and bilateral ear pain hearing loss. She states that her ears feel full. documented in this encounter Plan of Treatment Upcoming Encounters Date Type Department Care Team (Late st Contact Info) Description 04/21/2024 1:30 PM EDT Office Visit Cardiology, [facility] [address] [place] [address] Sebastian Santiago DO [address] [place] [address] 05/11/2024 12:40 PM EDT Office Visit Nutrition & Weight Management, [facility] [address] [place] [address] Corrina Callahan PA-C [address] [place] [address] 05/11/2024 2:00 PM EDT Nurse Only [facility] [place] [address] Srivastava, Nutrition Ed Class 1 [facility] [address] [place] [phone] 05/12/2024 3:00 PM EDT [facility] [place] [address] Corazon Meza Au.D. [address] [place] [phone] 05/12/2024 4:00 PM EDT Office Visit Otolaryngology [facility] [address] [facility] [place] [address] Vikash Goddard PA-C [address] [place] [address] 06/02/2024 4:00 PM EDT Office Visit [facility] [address] [place] [phone] Jenny Pressley MD [address] [place] [address] 09/30/2024 2:30 PM EST Office Visit Otolaryngology [facility] [address] [facility] [place] [address] Femi Bal DO [facility] [place] [phone] Health Maintenance Due Date Last Done Comments Pneumococcal Vaccine: 65+ Years (1 of 2 - PCV) 1960 Mammogram 1994 Cologuard 1999 Fecal Occult Blood Test 1999 Sigmoidoscopy 1999 Colonoscopy 06/24/2021 06/24/2016, 06/24/2016 Colorectal Cancer Screening 06/24/2021 COVID-19 Vaccine ( season) 2023 Influenza Vaccine (FLU shot) (Season Ended) 2024 Depression Monitoring 2024 2023 GFR 01/21/2025 01/22/2024, 03/0 11/2023, 12/07/2023, Additional history exists Albumin/Creatinine Ratio 05/18/2026 05/18/2023 Diabetes Screening 01/21/2027 01/22/2024, 0 12/26/2023, 12/07/2023, Additional history exists Lipid Panel 01/21/2029 01/22/2024, 09/26, 05/18/2023, Additional history exists RETIRED - COLONOSCOPY-EVERY 5 YRS AGES 18-100 Discontinued 06/24/2016, 06/24/2016 DTaP,Tdap,and Td Vaccines Discontinued DXA Scan Discontinued GARDASIL-HPV IMMUNIZATION SERIES Aged [...] of this encounter Visit Diagnoses Diagnosis Chronic otorrhea of left ear- Primary Hx of mastoidectomy Other postprocedural status documented in this encounter Advance Directives * [...] Power of Attor kathy? No Care Teams Slurry Blender Relationship Specialty Start Date End Date Jenny Pressley MD [address] [facility] [place] [address] PCP - General Internal Medicine 11/20/23 documented as of this encounter
--- OUTSIDE RECORDS SUMMARY | 2024-09-27 11:15 | External Medical Summary | Summary of Care ---
Author Name Unknown Organization [facility] Address [address] [place] [address] Phone [phone] Care Team Providers Care Dog Behaviorist Name Role Phone Jenny Pressley MD Primary Care Provider [phone] Reason for Visit * Reason Comments Weight Management The pt stated she wo uld like to discuss weight loss optionsWaist 49inNeck 15in * Evaluate & Treat - Unlimited Visits (Within 30 days (routine)) - Authorized Specialty Diagnoses / Procedures Referred By Contact Referred To Contact GI NUTRITION/IM / Gastroenterology Diagnoses Chronic heart failure with reduced ejection fraction and diastolic dysfunction (HCC) NICM (nonischemic cardiomyopathy) (HCC) Paroxysmal atrial fibrillation (HCC) HTN, goal below 140/90 Dyslipidemia, goal LDL below 100 Licha Sosa CRNP [address] [place] [address] Referral ID Status Reason Start Date Expiration Date Visits Requested Visits Authorized [id number] Authorized Specialty Services Required 01/22/2024 999 [id number] Encounter Details Date Type Department Care Team (Latest Contact Info) Description 04/19/2024 8:00 AM EDT Office Visit Nutrition & Weight Management, [facility] [address] [place] [address] Corrina Callahan PA-C [address] [place] [address] Morbid obesity due to excess calories (HCC)*; Abnormal weight gain; Gout of big toe; WILL on CPAP; Hypertensive heart disease with chronic systolic congestive heart failure (HCC); Dilated cardiomyopathy (HCC); HTN, goal below 140/90 Allergies Active [...] as of this encounter (statuses as of 04/19/2024) Medications Medication Sig Dispensed Refills Start Date [...] With food.. 60 Tablet 3 4 Active HYDROcodone-Aceta minophen 7.5-325 MG Oral TabletIndications :Controlled substance agreement signed,Status post right knee replacement,Rotat or cuff syndrome of left shoulder Take 1 Tablet by mouth every 8 hours as needed for Pain, Breakthrough or Pain, Severe. 30 Tablet 4 Active Bumetanide 1 MG Oral Tablet [...] Tablet by mouth in the morning. Active Eliquis 5 MG Oral Tablet Take 1 Tablet by mouth in the morning and 1 Tablet before bedtime. 3 024 Discontinued(Mo dication List Clean Up) Metoprolol Succinate ER 50 MG Oral Tablet Extended Release 24 Hour (toPROL XL) Take 1 Tablet by mouth in the morning. 90 Tablet 3 4 024 Discontinued documented as of this encounter (statuses as of 04/19/2024) Active Problems Problem Noted Date Diagnosed Date [...] as of this encounter (statuses as of 04/19/2024) Resolved Problems Problem Noted Date Diagnosed Date [...] as of this encounter (statuses as of 04/19/2024) Immunizations Name Administration Dates Next Due PPD [...] Sign Reading Time Taken Comments Blood Pressure 124/84 04/19/2024 8:14 AM EDT Pulse 75 04/19/2024 8:14 AM EDT Temperature 36.7 C (98.1 F) 04/19/2024 8:14 AM ED T Respiratory Rate - - Oxygen Saturation 98% 04/19/2024 8:14 AM EDT Inhaled Oxygen Concentration - - Weight 117.4 kg (258 lb 12.8 oz) 04/19/2024 8:14 AM EDT Height 166.8 cm (5' 5.65") 04/19/2024 8:14 AM ED T Body Mass Index 42.22 04/19/2024 8:14 AM EDT documented in this encounter Functional Status [...] as of this encounter Progress Notes * Wellar, Corrina Candida, PA-C - 04/19/2024 8:09 AM EDT COMPREHENSIVE WEIGHT MANAGEMENT CLINIC CONSULTATION INITIAL CONSULT Referring Physician: PAIGE Deng Nursing Notes: Jaleel Holden LPN 04/19/24 0815 Signed Chief Complaint Patient presents with Weight Management The pt stated she would like to discuss weight loss options Waist 49in Neck 15in Source of information: Patient Available records reviewed: Recent provider visits, Imaging, and Labs Reason for Referral: Weight Management. Ramona Stringer is a 68 year old patient with a past medical history for Patient Active Problem List Diagnosis ADVANCE DIRECTIVE [...] heart failure (HCC) Pulmonary hypertension, unspecified (HCC) who presents to the [facility] for further recommendations. HPI: The patient suffers from Morbid obesity Patient is interested in the following treatment options for obesity: possible surgery. - Initial clinic visit 04/19/24. Weight 258 lbs Height 65.65" Body mass index is 42.22 kg/m. -program goal weight: 232lbs Today's Visit 04/19/24 - Overall goal: be healthier - Wt hx: has struggled more over the last 10-15 years - Highest wt as adult: 258lbs -brother had sleeve surgery around her age, he is now 80yo and doing well -son had sleeve about 6 mo ago Previous Weight Management Interventions: The patient has tried weight loss in the past without significant fdc success. -self directed: keto -commercial: Atkins - lost about 60lbs -medication: none Wt Readings from Last 8 Encounters: 04/19/24 117.4 kg (258 lb 12.8 oz) 04/11/24 110.1 kg (242 lb 11.6 oz) 12/07/23 110.1 kg (242 lb 11.2 oz) 11/27/23 109.3 kg (241 lb) 11/03/23 106.1 kg (234 lb) 10/21/23 111.6 kg (246 lb 0.5 oz) 10/20/23 111.9 kg (246 lb 12.8 oz) 10/08/23 110.8 kg (244 lb 4.8 oz) Current Diet: Describes typical diet history/24 hr recall Breakfast: coffee and toast OR banana and 1/2 bagel OR 2 eggs and toast Snacks: watermelon OR skips Lunch: soup OR sandwich Snacks: small dessert Dinner: grilled chicken salad OR meat and veggie Snacks: yogurt Drinks: iced tea without sugar, water, black coffee Restaurant meals: twice a week Activity: ADL Past Medical History Patient Active Problem List Diagnosis ADVANCE DIRECTIVE [...] heart failure (HCC) Pulmonary hypertension, unspecified (HCC) Glaucoma No Hypertension: Yes, on medications CAD: No Congestive heart failure Yes DVT/PE, clotting disorder: No Stroke: No Seizures: No Sleep Apnea: Yes, on BiPAP Asthma: No COPD: No Patient denies personal or family history of medullary thyroid carcinoma. Patient denies personal or family history of multiple endocrine neoplasia syndrome type II Patient denies personal history of pancreatitis Diabetes: No GERD: No History of nephrolithiasis: No. Anxiety/Depression: No Past Surgical History: Procedure Laterality Date DELIVERY COLONOSCOPY, DIAGNOSTIC (RECTUM) N/A 06/24/2016 hyperplastic polyp/recall 5 years/COLONOSCOPY FLEXIBLE PROXIMAL DIAGNOSTIC performed by Eden Foreman DO at [facility] CREATE EARDRUM OPENING,LOCAL ANESTH Tympanostomy tubes; cholesteotoma repair EGD, FLEXIBLE, DIAGNOSTIC N/A 06/10/2016 normal/ESOPHAGOGASTRODUODENOSCOPY (EGD), FLEXIBLE, TRANSORAL, DIAGNOSTIC performed by Eden Foreman DO at [facility] EXPLORATION OF ABDOMEN N/A 07/24/2016 EXPLORATORY LAPAROTOMY performed by Eden Hassan DO at OR [facility] PARTIAL REMOVAL OF THYROID LOBE had a lump at age 15-16- assumes it was benign REMOVAL OF SMALL INTESTINE W/FUSION N/A 07/24/2016 ENTERECTOMY SMALL BOWEL RESECTION performed by Eden Hassan DO at OR [facility] REMOVE TONSILS & ADENOIDS, UNDER 12 T & A, age<12 REPAIR OF NASAL SEPTUM ? 2001 Nasal Septum Repair - Dr. Hernández REVISE MIDDLE EAR & MASTOID 12/16/2011 TYMPANOPLASTY MASTOIDECTOMY WITHOUT OSSICULAR RECONSTRUCTION performed by SEA MCCARTY at OR [facility] Review of patient's allergies indicates: Allergen Reactions [...] 1 Tablet by mouth in the morning. No current facility-administered medications for this visit. Family History: Family History Problem Relation Name Age of Onset Heart Disorder Mother pacer Hypertension Mother Heart Disorder Father HI Heart Disorder Brother A.fib Mental Disorder Daughter depression Mental Disorder Daughter depression Mental Disorder Daughter depression Heart Disorder Son Social History: Alcohol: Infrequent Tobacco Use: No Drug Use: No Marital status: single, son lives next door Occupation: retired Review of Systems: Review of Systems Musculoskeletal: Positive for arthralgias and back pain. All other systems reviewed and are negative. Menstrual Cycle: Yes, post menopausal Control: N/A Physical Examination: BP 124/84 | Pulse 75 | Temp 36.7 C (98.1 F) | Ht 1.668 m (5' 5.65") | Wt 117.4 kg (258 lb 12.8 oz) | SpO2 98% | BMI 42.22 kg/m | BSA 2.33 m General: Patient awake alert and oriented. Patient is well appearing and in no acute distress. Skin: No rashes. HEENT: Head is atraumatic, normocephalic. EOMs intact Abdomen: Obese Neuro: No focal deficits Psych: Appropriate mood and affect. Assessment and Recommendation: Abnormal weight gain Body mass index is 42.22 kg/m. Morbid obesity . Discussed weight management options and would like to proceed with surgical weight management. Barriers are consistency. Motivators are feeling better, avoiding/reducing comorbid conditions. Patient goals were discussed in detail at visit. Explained to the patient that they can lose on average ~5-10% of current weight with medical management, ~10-15% with medication use, and ~40-60% with bariatric surgery. Interest in surgery 100% Motivation to make behavioral and dietary changes 90% 1. Keep a food log. If you bite it, write it! Apps like Sulia or [employer]til you [employer] Calorie goal: 1500 Macronutrients: Protein 10%-35%, Carbohydrates 45%-65%, fat 20%-35% Lower carb: protein 35%, Carbohydrates 40%, fat 25% 2. Drink 48-64 ounces of non-caloric beverages per day. No fruit juices or regular soda Try crystal light, propel, zero calorie flavored water, plain water 3. Goal of 30 minutes of exercise 5 days per week (150 minutes per week--can be divided up however you would like) Aim for aerobic activity and muscle strengthening activities 4. Increase fruit and vegetable servings to 5-6 per day. 1/2 of your plate should be fruits and vegetables 5. Eat 100-200 calories within 1-2 hours of awakening, and every 4 - 6 hours while awake. Do not skip meals!! Eat 3 meals with snacks in between. Choose 100 calorie or less snacks, protein snacks (see handout) 7. Weight yourself weekly and follow trend over time (day to day weight fluctuations can be discouraging) 8. Decrease starches like bread, pasta, cereal, potatoes and corn. Aim for of your plate Try substitutions like zoodles, lentil pasta, cauliflower mashed potatoes, whole grain foods, quinoa Limit junk/processed foods Chips, pretzels, cookies, cakes, sweets White bread/rolls/wraps/bagels, white rice 9. Increase protein to feel full longer (1/4 of your plate; see myplate handout) Ramona was seen today for weight management. Diagnoses and all orders for this visit: Morbid obesity due to excess calories (HCC) -enroll in surgery program -plan sleeve Abnormal weight gain Gout of big toe [...] below 140/90 -continue current regimen Possibility of bariatric surgery - pt is interested in bariatric surgery - pt qualifies for bariatric surgery based on BMI >40 or BMI >35 with obesity related comorbidity (Body mass index is 42.22 kg/m.) -pre bariatric surgery program reviewed and packet given to patient - pt will need to call insurance company to see if bariatric surgery is a covered benefit -Enroll in bariatric surgery program. -Discussed details of program with patient in clinic today, including (but not limited to) program fee; attending 2 support groups and 3 educational classes; Behavioral Medicine evaluation; [employer] Laborer evaluation; medical evaluation; monthly visits; and 10% weight loss goal. - Discussed importance of eating 3 regular meals/day with a focus on protein. Reviewed healthy snacks and provided list. Educated about MyPlate and portion sizes. Pt is to work on these items betweennow and next visit. Given the patient's age, degree of obesity and multiple medical problems outlined above, I do believe that bariatric surgery may prove beneficial. Discussed with patient the risks and benefits of rygb,vsg. The patient is interested in bariatric surgery and will begin our presurgical process. I spent a total of 40 minutes on the date of service in preparation, delivery, and documentation ofthe care provided to Ramona Stringer excluding any time spent in the performance of separately billed services. Time spent with patient 35 minutes. More than 50% of my time spent with patient providing counseling about the benefits of weight loss, about the patient's nutritional status, detailed explanations about calorie count, types of nutrients to choose, and composition of the meals. Reviewed and discussed weight, weight trends and pertinent labs and test results. Motivational interview provided in order to prepare the patient to achieve future goals. The patient agreed to try all the plan discussed and return in one month. Patient was instructed to message or call in the meantime with any further concerns or questions. Corrina Callahan PAC, MPH [facility] Nutrition and Weight Management [facility] documented in this encounter Nursing Notes * Jaleel Holden LPN - 04/19/2024 8:13 AM EDT Chief Complaint Patient presents with Weight Management The pt stated she would like to discuss weight loss options Waist 49in Neck 15in documented in this encounter Plan of Treatment Upcoming Encounters Date Type Department Care Team (Late st Contact Info) Description 04/20/2024 2:40 PM EDT Office Visit Otolaryngology [facility] [address] [place] [address] Vikash Goddard PA-C [address] [place] [address] 04/21/2024 1:30 PM EDT Office Visit Cardiology, [facility] [address] [place] [address] Sebastian Santiago DO [address] [place] [address] 05/11/2024 12:40 PM EDT Office Visit Nutrition & Weight Management, [facility] [address] [place] [address] Corrina Callahan PA-C [address] [place] [address] 05/11/2024 2:00 PM EDT Nurse Only Nutrition & Weight Management, [facility] [address] [facility] [place] [address] Srivastava, Nutrition Ed Class 1 Manuel [facility] [place] [address] 06/02/2024 4:00 PM EDT Office [facility] [address] [facility] [phone] Jenny Pressley [facility] [address] [facility] [address] 09/30/2024 2:30 PM EST Office Visit Otolaryngology [facility] [address] [facility] [place] [address] Femi Bal DO [address] [place] [address] Health Maintenance Due Date Last Done Comments [...] obesity due to excess calories (HCC)- Primary Abnormal weight gain Gout of big toe Acute gouty arthropathy WILL on CPAP Obstructive sleep apnea (adult) (pediatric) Hypertensive heart disease with chronic systolic congestive heart failure (HCC) Dilated cardiomyopathy (HCC) Other primary cardiomyopathies HTN, [...] Power of Attor kathy? No Care Teams Dog Behaviorist Relationship Specialty Start Date End Date Jenny Pressley MD [address] [place] [address] PCP - General Internal Medicine 11/20/23 documented as of this encounter
--- OUTSIDE RECORDS SUMMARY | 2024-09-27 11:15 | External Medical Summary | Summary of Care ---
Author Name Unknown Organization [facility] Address [address] [place] [address] Phone [phone] Care Team Providers Care Pharmacists Name Role Phone Jenny Pressley MD Primary Care Provider [phone] Reason for Referral * Precert (Within 10 days (routine)) - Authorized Specialty Diagnoses / Procedures Referred By Contac t Referred To Contact Cardiac Studies Diagnoses Cardiomyopathy, unspecified type (HCC) Procedures ECHO, COMPLETE (2D), TRANS-THORACIC Sebastian Santiago DO [address] [place] [address] Referral ID Status Reason Start Date Expiration Date V isits Requested Visits Authorized [id number] Authorized Precert 04/19/2024 999 [id number] Reason for Visit * Reason Onset Date Comments Test Results 04/12/2024 Encounter Details Date Type Department Care Team (Late st Contact Info) Description 04/12/2024 Telephone Cardiology, [facility] [address] [place] [address] Sebastian Santiago DO [address] [place] [address] Test Results Allergies Active Allergy Reactions Criticality Noted Date [...] as of this encounter (statuses as of 04/13/2024) Medications Medication Sig Dispensed Refills Start Date [...] MUSCLE SPASMS. 60 Tablet 1 07/10/2022 Active Eliquis 5 MG Oral Tablet Take 1 Tablet by mouth in the morning and 1 Tablet before bedtime. 10/05/2023 Active Zinc 50 MG Oral Tablet [...] the morning. 90 Tablet 3 12/11/2023 Active Metoprolol Succinate ER 50 MG Oral Tablet [...] THE MORNING 48 mL 1 04/02/2024 Active documented as of this encounter (statuses as of 04/13/2024) Active Problems Problem Noted Date Diagnosed Date [...] as of this encounter (statuses as of 04/13/2024) Resolved Problems Problem Noted Date Diagnosed Date [...] as of this encounter (statuses as of 04/13/2024) Immunizations Name Administration Dates Next Due PPD [...] encounter Miscellaneous Notes * Telephone Encounter - Bhupendra Kovacs LPN - 04/12/2024 1:24 PM EDT Called patient and informed of Dr. Santiago message. Patient verbalized understanding. Patient stated she previously had a rash from contrast dye and is hesitant. Please advice. Echo pended. ----- Message from Sebastian Santiago DO sent at 04/12/2024 12:04 PM EDT ----- Technically limited echo. Mild LV systolic dysfunction reported. Recommend repeat echo with LV contrast. documented in this encounter Plan of Treatment Upcoming Encounters Date Type Department Care Team (Late st Contact Info) Description 04/19/2024 8:00 AM EDT Office Visit Nutrition & Weight Management, [facility] [address] [place] [address] Corrina Callahan PA-C [address] [address] 04/21/2024 1:30 PM EDT Office Visit Cardiology, [facility] [address] [place] [address] Sebastian Santiago, DO [address] [facility] [place] [address] 06/02/2024 4:00 PM EDT Office Visit [facility] [address] [place] [phone] Jenny Pressley MD [address] [place] [address] 09/30/2024 2:30 PM EST Office Visit Otolaryngology [facility] [address] [facility] [place] [address] Femi Bal, DO [address] [facility] [address] Scheduled Orders Name Type Priority Associated Diagnoses Orde r Schedule ECHO, COMPLETE (2D), TRANS-THORACIC Echocardiology Routine Cardiomyopathy, unspecified type (HCC) Expected: 04/19/2024 (Approximate), Expires: 05/13/2026 Health Maintenance Due Date Last Done Comments [...] as of this encounter Visit Diagnoses Diagnosis Cardiomyopathy, unspecified type (HCC)- Primary documented in this encounter Advance [...] Power of Attor kathy? No Care Teams Pharmacists Relationship Specialty Start Date End Date Jenny Pressley MD [address] [place] [address] PCP - General Internal Medicine 11/20/23 documented as of this encounter
--- OUTSIDE RECORDS SUMMARY | 2024-09-27 11:16 | External Medical Summary | Summary of Care ---
Author Name Unknown Organization [facility] Address [address] [place] [address] Phone [phone] Care Team Providers Care Dancer Or Choreographer Name Role Phone Jenny Pressley MD Primary Care Provider [phone] Reason for Referral * Precert (Within 10 days (routine)) - Authorized Specialty Diagnoses / Procedures Referred By Contac t Referred To Contact Cardiac Studies Diagnoses Atrial fibrillation status post cardioversion (HCC) Chronic heart failure with reduced ejection fraction and diastolic dysfunction (HCC) NICM (nonischemic cardiomyopathy) (HCC) Procedures ECHO, COMPLETE (2D), TRANS-THORACIC Sebastian Santiago DO [address] [place] [address] Referral ID Status Reason Start Date Expiration Date V isits Requested Visits Authorized [id number] Authorized Precert 02/04/2024 999 999 Reason for Visit * Precert (Within 10 days (routine)) - Authorized Specialty Diagnoses / Procedures Referred By Contac t Referred To Contact Cardiac Studies Diagnoses Atrial fibrillation status post cardioversion (HCC) Chronic heart failure with reduced ejection fraction and diastolic dysfunction (HCC) NICM (nonischemic cardiomyopathy) (HCC) Procedures ECHO, COMPLETE (2D), TRANS-THORACIC Sebastian Santiago DO [address] [place] [address] Referral ID Status Reason Start Date Expiration Date V isits Requested Visits Authorized [id number] Authorized Precert 02/04/2024 999 999 Encounter Details Date Type Department Care Team (Latest Contact Info) Description 04/11/2024 2:00 PM EDT - 04/11/2024 11:59 PM EDT Hospital Encounter Cardiac Studies 1st Fl, [facility] [address] [place] [address] Discharge Disposition: Home - Self Care Allergies [...] as of this encounter (statuses as of 04/12/2024) Medications Medication Sig Dispensed Refills Start Date [...] as of this encounter (statuses as of 04/12/2024) Active Problems Problem Noted Date Diagnosed Date [...] as of this encounter (statuses as of 04/12/2024) Resolved Problems Problem Noted Date Diagnosed Date [...] as of this encounter (statuses as of 04/12/2024) Immunizations Name Administration Dates Next Due PPD [...] Sign Reading Time Taken Comments Blood Pressure 130/82 04/11/2024 2:17 PM EDT Pulse - - Temperature - - Respiratory Rate - - Oxygen Saturation - - Inhaled Oxygen Concentration - - Weight 110.1 kg (242 lb 11.6 oz) 04/11/2024 2:17 PM EDT Height 167.6 cm (5' 5.98") 04/11/2024 2:17 PM ED T Body Mass Index 39.2 04/11/2024 2:17 PM EDT documented in this encounter Functional [...] as of this encounter Miscellaneous Notes * Result Encounter Note - Sebastian Santiago DO - 04/11/2024 2:00 PM EDT Technically limited echo. Mild LV systolic dysfunction reported. Recommend repeat echo with LV contrast. documented in this encounter Plan of Treatment Upcoming Encounters Date Type Department Care Team (Late st Contact Info) Description 04/19/2024 8:00 AM EDT Office Visit Nutrition & Weight Management, [facility] [address] [place] [address] Corrina Callahan PA-C [address] [place] [address] 04/21/2024 1:30 PM EDT Office Visit Cardiology, [facility] [address] [place] [address] Sebastian Santiago DO [address] [place] [address] 06/02/2024 4:00 PM EDT Office Visit [place] [address] [place] [phone] Jenny Pressley MD [address] [place] [address] 09/30/2024 2:30 PM EST Office Visit Otolaryngology [facility] [address] [place] [address] Femi Bal DO [address] [place] [address] Health Maintenance Due Date Last Done Comments [...] Procedure Name Priority Date/Time Associated Diagnosis Comments ECHO, COMPLETE (2D), TRANS-THORACIC Routine 04/11/2024 2:55 PM EDT Atrial fibrillation status post cardioversion (HCC) Chronic heart failure with reduced ejection fraction and diastolic dysfunction (HCC) NICM (nonischemic cardiomyopathy) (HCC) documented in this encounter Results * ECHO, COMPLETE (2D), TRANS-THORACIC (04/11/2024 2:55 PM EDT) 04/11/2024 2:18 PM EDT Sebastian Santiago DO [facility] documented in this encounter Visit Diagnoses Diagnosis Atrial fibrillation status post cardioversion (HCC) Cardiac complications Chronic heart failure with reduced ejection fraction and diastolic dysfunction (HCC) NICM (nonischemic cardiomyopathy) (HCC) Other primary cardiomyopathies documented in this [...] Power of Attor kathy? No Care Teams Dancer Or Choreographer Relationship Specialty Start Date End Date Jenny Pressley MD [address] [place] [address] PCP - General Internal Medicine 11/20/23 documented as of this encounter
--- OUTSIDE RECORDS SUMMARY | 2024-09-27 11:16 | External Medical Summary | Summary of Care ---
Author Name Unknown Organization [facility] Address [address] [place] [address] Phone [phone] Care Team Providers Care Wheat Cleaner Name Role Phone Jenny Pressley MD Primary Care Provider [phone] Reason for Visit * Reason Comments eRx-Medication Refill Encounter Details Date Type Department Care Team (Late st Contact Info) Description 04/01/2024 Refill [facility] [address] [place] [address] Jenny Pressley MD [address] [place] [address] Acute maxillary sinusitis, unspecified Allergies Active Allergy Reactions Criticality Noted Date [...] as of this encounter (statuses as of 04/02/2024) Medications Medication Sig Dispensed Refills Start Date [...] With food.. 60 Tablet 3 02/15/2024 Active HYDROcodone-Acetam inophen 7.5-325 MG Oral TabletIndications: [...] THE MORNING 48 mL 1 04/02/2024 Active Fluticasone Propionate 50 MCG/ACT Nasal Suspension (Flonase) Administer 1 [place] into nostril in the morning. 01/11/2024 4 Discontinu ed(Refill) documented as of this encounter (statuses as of 04/02/2024) Active Problems Problem Noted Date Diagnosed Date [...] as of this encounter (statuses as of 04/02/2024) Resolved Problems Problem Noted Date Diagnosed Date [...] as of this encounter (statuses as of 04/02/2024) Immunizations Name Administration Dates Next Due PPD [...] Telephone Encounter - Jenny Pressley MD - 04/02/2024 5:18 PM EDTSigned Prescriptions: Disp Refills Fluticasone Propionate 50 MCG/ACT Nasal Finch*48 mL 1 Sig: SPRAY 2 SPRAYS INTO EACH NOSTRIL IN THE MORNING Authorizing Provider: JENNY PRESSLEY * Telephone Encounter - April [facility] - 04/01/2024 5:49 PM EDTPending Prescriptions: Disp Refills Fluticasone Propionate 50 MCG/ACT Nasal Finch*48 mL 1 Sig: SPRAY 2 SPRAYS INTO EACH NOSTRIL IN THE MORNING * Telephone Encounter - April [facility] - 04/01/2024 5:48 PM EDT Unable to fill rx listed as "Historical." Please fill if appropriate. Thanks! documented in this encounter Plan of Treatment Upcoming Encounters Date Type Department Care Team (Late st Contact Info) Description 04/11/2024 2:00 PM EDT Appointment Cardiac Studies 1st Fl, [facility] [address] [place] [address] 04/19/2024 8:00 AM EDT Office Visit Nutrition & Weight Management, [facility] [address] [place] [address] Corrina Callahan PA-C [address] [place] [address] 04/21/2024 1:30 PM EDT Office Visit Cardiology, [facility] [address] [place] [address] Sebastian Santiago, DO [address] [place] [address] 06/02/2024 4:00 PM EDT Office Visit [facility] [address] [place] [id number] Jenny Pressley MD [address] [place] [address] 09/30/2024 2:30 PM EST Office Visit Otolaryngology [facility] [address] [place] [address] Femi Bal, [address] [place] [address] Health Maintenance Due Date Last Done Comments Pneumococcal Vaccine: 65+ Years (1 of 2 - PCV) 1960 Mammogram 1994 Cologuard 1999 Fecal Occult Blood Test 1999 Sigmoidoscopy 1999 Colonoscopy 06/24/2021 06/24/2016, 06/24/2016 Colorectal Cancer Screening 06/24/2021 COVID-19 Vaccine ( season) 2023 Influenza Vaccine (FLU shot) (Season Ended) 2024 GFR 01/21/2025 01/22/2024, 03/0 11/2023, 12/07/2023, Additional [...] encounter Visit Diagnoses Diagnosis Acute maxillary sinusitis, unspecified documented in this encounter Advance Directives * [...] Power of Attor kathy? No Care Teams Wheat Cleaner Relationship Specialty Start Date End Date Jenny Pressley MD [address] [place] [address] PCP - General Internal Medicine 11/20/23 documented as of this encounter
--- NOTE | 2024-09-27 14:06 | Electrocardiogram Report ---
Test Reason : Blood Pressure : */* mmHG Vent. Rate : 121 BPM Atrial Rate : 300 BPM P-R Int : * ms QRS Dur : 88 ms QT Int : 280 ms P-R-T Axes : * 18 187 degrees QTcB Int : 397 ms Poor data quality, interpretation may be adversely affected Atrial fibrillation with rapid ventricular response with premature ventricular or aberrantly conducte d complexes Abnormal ECG When compared with ECG of 26-Sep-2024 13:47, Criteria for Septal infarct are no longer Present ST now depressed in Anterior leads T wave inversion now evident in Inferior leads Confirmed by Thanh Muse ([id number]) on 09/27/2024 2:06:12 PM Referred By: REFERRED SELF Confirmed By: Thanh Muse
[2024-09-27] MEDS: FUROSEMIDE 40 MG/4 ML VIAL IV ONE (14:07)
--- NOTE | 2024-09-27 15:30 | Hospitalist Progress Note ---
Date of Service September 27, 2024 Assessment & Plan (1) Cardiac left ventricular ejection fraction 10-20 percent: (2) HFrEF (heart failure with reduced ejection fraction): (3) Sleep apnea: (4) Hyperlipidemia: (5) Hypertension: (6) Depression: Plan Atrial fibrillation with rapid ventricular response Acute on chronic heart failure with reduced EF--POA H/O paroxysmal atrial fibrillation S/P ablation X2 H/O dilated cardiomyopathy --ECHO: Rhythm is A-fib RVR. Left ventricle is moderately dilated. Left ventricle systolic function is severely reduced. EF 25 to 30%. Severe global hypokinesis of left ventricle. Left atrium is severely dilated. Right atrium is moderately dilated. Mild aortic regurgitation. Mild to moderate mitral regurgitation. Mild tricuspid regurgitation. Estimated systolic pulmonary pressure is 40 mmHg. Dilated inferior cava with reduced collapsibility with sniff indicates an elevated right atrial pressure of 15 mmHg. --CXR:No acute cardiopulmonary findings. Cardiomegaly. --BNP 704 --Normal TSH -- Started on metoprolol succinate 75 mg twice a day --Also started on digoxin On IV heparin for anticoagulation Appreciate cardiology input IV Lopressor as needed Monitor and replete electrolytes as needed Received IV Lasix Also on Aldactone Saturating low 90s on room air Further diuresis based on volume status tomorrow Monitor I's and O's, daily weight Sleep apnea Continue CPAP at bedtime Other chronic conditions Hypertension Hyperlipidemia Mood disorder Fibromyalgia Continue home medications when appropriate DVT Px: IV Heparin CODE STATUS Full code Admission and Anticipated Discharge Date Admission Date: September 26, 2024 Subjective Patient is seen and examined at bedside States having palpitations intermittently, and dyspnea on exertion Also feels tired Poor sleep overnight No other complaints Review of Systems Review of Systems: All systems reviewed & are unremarkable except as noted in Subjective Physical Exam Physical Exam: Physical Exam: Vitals signs as noted above General Appearance:Obese, no apparent distress Head: normocephalic, Atraumatic Eyes: normal inspection, EOMI Neck: supple, Trachea midline Respiratory/Chest: Normal breath sounds, CTA, No accessory muscle use Cardiovascular: Irregularly irregular, +murmur Abdomen/GI:Soft, Non tender, Bowel sounds present Extremities/Musculoskeletal:normal inspection, Trace edema Neurologic/Psych:AAOX3, grossly no focal neurological deficits Skin: normal color, warm Results & Data Results & Data Vital Signs (Past 12 Hours) Vital Signs Temp Pulse Pulse Resp BP BP Pulse Ox 09/27/24 15:11 123 H 09/27/24 15:09 36.6 C 134 H 26 H 114/88 90 09/27/24 11:19 36.8 C 109 H 19 135/89 90 09/27/24 09:35 126 H 153/114 H 09/27/24 08:48 125 H 136/95 09/27/24 08:00 09/27/24 07:39 36.5 C 86 32 H 131/69 91 09/27/24 07:23 118 H 09/27/24 07:09 36.6 C 115 H 17 121/81 90 09/27/24 06:21 117 H 137/89 09/27/24 06:06 149 H 147/91 H O2 Del Method O2 Flow Rate 09/27/24 15:11 09/27/24 15:09 Room Air 09/27/24 11:19 Nasal Cannula 2 09/27/24 09:35 09/27/24 08:48 09/27/24 08:00 Nasal Cannula 2 09/27/24 07:39 Room Air 09/27/24 07:23 09/27/24 07:09 Room Air 09/27/24 06:21 09/27/24 06:06 Laboratory Results Short CBC 09/27/24 Range/Units 07:01 WBC 8.88 (4.8-10.8) K/ul Hgb 14.3 (12.0-16.0) g/dl Hct 42.5 (37.0-47.0) % Plt Count 226 (130-400) K/uL BMP 09/26/24 09/27/24 15:26 07:01 Sodium 139 Potassium 3.7 3.7 Chloride 104 Carbon Dioxide 25 BUN 15 Creatinine 0.77 Glucose 127 H Calcium 9.1 Liver Function 09/26/24 09/27/24 Range/Units 15:26 07:01 Total Bilirubin 1.0 (0.2-1.0) mg/dl AST 60 H 35 (13-39) U/L ALT 37 (7-52) U/L Alkaline Phosphatase 85 (34-104) U/L Albumin 3.9 (3.4-5.0) gm/dl Urine 09/26/24 Range/Units 21:55 Urine Color Yellow Urine Appearance Clear (Clear) Urine pH 7.0 (4.5-7.5) Ur Specific [place] 1.007 (1.000-1.030) Urine Protein Negative (Negative) Urine Glucose (UA) Negative (Negative) (5) Hypertension Hypertension type: primary hypertension Qualified Code(s): I10 - Essential (primary) hypertension
[2024-09-27] MEDS: DIGOXIN 0.125 MG TAB PO SCH (16:51)
[2024-09-27] MEDS: ALPRAZolam 0.5 MG TABLET PO SCH (21:45)
[2024-09-27] MEDS: METOPROLOL SUCC 25MG EXT REL TAB PO SCH (21:46)
[2024-09-28] MEDS ORDERED: POTASSIUM CHLORIDE / WTR 10 MEQ/100 ML PLCT IV SCH (01:00)
[2024-09-28] MEDS: METOPROLOL TARTRATE 1 MG/ML VIAL IV STA (01:01)
[2024-09-28] MEDS: POTASSIUM CHLORIDE CRTAB 20 MEQ TABCR PO STA ×2 (01:40→01:46)
[2024-09-28 06:48] LABS: Hematocrit (blood only) 44.2 % (37.0-47.0); Hemoglobin 14.8 g/dl (12.0-16.0); Mean Corpuscular Hemoglobin 30.5 pg (25.0-34.0); Mean Corpuscular Hgb Conc 33.5 g/dL (32.0-36.0); Mean Corpuscular Volume 91.1 fL (80.0-100.0); Platelet Count 252 K/uL (130-400); RDW Coefficient of Variation 13.7 % (11.5-14.5); RDW Standard Deviation 45.2 fL (36.4-46.3); Red Blood Count 4.85 M/uL (4.20-5.40); White Blood Count 8.58 K/ul (4.8-10.8)
[2024-09-28 07:05] LABS: Calcium 9.3 mg/dl (8.6-10.3); Creatinine Clr Calc Pharmacy 85.9 ml/min; Magnesium 2.1 mg/dl (1.7-2.4)
[2024-09-28 07:06] LABS: ANTI-Xa, UFH(UnfractionatedHep 0.36 IU/ml (0.3-0.7)
--- NOTE | 2024-09-28 08:04 | Cardiology Progress Note ---
Date of Service September 28, 2024 Assessment & Plan Plan 68 yo woman presenting with palpitations Dx: Afib with RVR K+ 3.7 Mag++ 2.0 TSH - 1.9 BNP 704 EK09-26-2024 Afib + RVR - ventricular 160-170 Rx with Cardizem Cardizem was discontinued - Transitioned to Beta Blockers + Digoxin ECHO - 09-27-2024 LV function severely reduced LVEF 25-30% LV moderately dilated LA severely dilated RA moderately dilated RV systolic function - reduced AI - mild MR - mild to moderate TR - mild PASP 40 mmHg Dilated IVC Med Hx: * Cardiomyopathy * HFRF * LVEF 20% * PAF * S/P Ablations (2023 @ [facility]) * HTN * Hyperlipidemia * WILL on BiPaP * Diffuse large B-Cell Lymphoma * GI Bleeding * Gout * Dilated Ascending Aorta Plans: * Afib - RVR * STOP Lopressor 50 mg po BID + Lopressor 5 mg IV Q6hrs * Start Toprol 75 mg po BID * Digoxin - 0.5 + 0.250 (two doses) * START Digoxin 0.125 mcg po per day * Diuresing * STOP Bumex 1 mg po daily * Start Lasix 100 mg IV x 1 * Increase Aldactone to 25 mg po per say * K+ goal 4.5-5 * Mag goal >2 * Plans for CRYSTAL/Cardioversion * NPO past MN * Start afterload reduction once we get rate controlled - patient had "throat swelling with GO" (May use Hydral/nitrates) * Patient had thyroid dysfunction with Amiodarone + allopecia * Plans for EP evaluation- repeat ablation. * Consider Jardiance on 09/28/2024 * 62 min spent addressing challenges, educating and advancing daily plan of care Herbert Jones Admission and Anticipated Discharge Date Admission Date: September 26, 2024 Subjective Events Overnight: Subjective: Review of Systems Review of Systems: All systems reviewed & are unremarkable except as noted in HPI & below Physical Exam Physical Exam: As documented by Dr. Jones Obese JVP 18 cmH20 S1S2 2/6 systolic murmur CTA B No C/C/E Warm and perfusing Results & Data Vital Signs (Past 12 Hours) Vital Signs Temp Pulse Pulse Resp BP BP Pulse Ox 09/28/24 07:06 97 H 09/28/24 03:27 36.5 C 118 H 18 138/91 96 09/28/24 01:16 101 H 117/74 09/27/24 23:23 36.6 C 129 H 18 148/109 H 95 09/27/24 21:56 121 H O2 Del Method 09/28/24 07:06 09/28/24 03:27 CPAP 09/28/24 01:16 09/27/24 23:23 CPAP 09/27/24 21:56 Laboratory Results Cardiac Enzymes 09/27/24 Range/Units 07:01 AST 35 (13-39) U/L CBC 09/28/24 Range/Units 05:59 WBC 8.58 (4.8-10.8) K/ul RBC 4.85 (4.20-5.40) M/uL Hgb 14.8 (12.0-16.0) g/dl Hct 44.2 (37.0-47.0) % Plt Count 252 (130-400) K/uL Comprehensive Metabolic Panel 09/27/24 09/28/24 Range/Units 07:01 05:59 Sodium 139 139 (136-145) mmol/L Potassium 3.7 4.0 (3.5-5.1) mmol/L Chloride 104 102 (98-107) mmol/L Carbon Dioxide 25 27 (21-32) mmol/L BUN 15 17 (6-23) mg/dl Creatinine 0.77 0.81 (0.6-1.2) mg/dl Glucose 127 H 104 H (70-99(Fasting)) mg/dl Calcium 9.1 9.3 (8.6-10.3) mg/dl AST 35 (13-39) U/L ALT 37 (7-52) U/L Alkaline Phosphatase 85 (34-104) U/L Total Protein 7.1 (6.0-8.3) gm/dl Albumin 3.9 (3.4-5.0) gm/dl Intake and Output 09/27/24 09/28/24 09/28/24 22:59 06:59 14:59 Intake Total 300 / 1253.5 480 / 1253.5 Output Total 1200 / 2600 Balance 300 / -1346.5 -720 / -1346.5 Intake: IV 480 / 713.5 Heparin Sodium/Dextrose 25,000 480 / 713.5 units In 500 ml @ 1,500 UNITS/ HR 30 mls/hr IV .[id number] [facility] Rx #:[id number] Oral 300 / 540 Output: Urine 1200 / 2600 Other: Other Intake Source NPO # Unmeasured Voids 2 Weight 118.5 kg Weight Measurement Method Standing Scale Medications Administered Current Inpatient Medications Acetaminophen (Acetaminophen 325 Mg Tab) 650 mg PO Q4H PRN PRN Reason: Pain or Fever Stop: 10/26/24 18:34 Alprazolam (Alprazolam 0.5 Mg Tablet) 0.5 mg PO QPM [facility] Stop: 10/27/24 20:59 Last Admin: 09/27/24 21:45 Dose: 0.5 mg Ascorbic Acid (Ascorbic Acid 500 Mg Tab) 1,000 mg PO QPM [facility] Stop: 10/26/24 20:59 Last Admin: 09/27/24 21:45 Dose: 1,000 mg Digoxin (Digoxin 0.125 Mg Tab) 0.125 mg PO DAILY@1600 [facility] Stop: 10/27/24 15:59 Last Admin: 09/27/24 16:51 Dose: 0.125 mg Heparin Sodium/Dextrose (Heparin Sodium/Dextrose) 25,000 units in 500 mls @ 30 mls/hr IV .[id number] [facility]; Protocol Stop: 10/26/24 17:14 Last Admin: 09/28/24 01:37 Dose: 1,500 units/hr, 30 mls/hr Loratadine (Loratadine 10 Mg Tab) 10 mg PO QAM [facility] Stop: 10/27/24 08:59 Last Admin: 09/27/24 08:46 Dose: 10 mg Metoprolol Succinate (Metoprolol Succ 25mg Ext Rel Tab) 75 mg PO BID [facility] Stop: 10/27/24 20:59 Last Admin: 09/27/24 21:46 Dose: 75 mg Metoprolol Tartrate (Metoprolol Tartrate 1 Mg/Ml Vial) 5 mg IV Q6 PRN PRN Reason: sustained HR > 120 Stop: 10/27/24 00:00 Last Admin: 09/27/24 16:47 Dose: 5 mg Potassium Chloride (Potassium Chloride 10 Meq Tabcr) 10 meq PO QPM [facility] Stop: 10/26/24 20:59 Last Admin: 09/27/24 21:45 Dose: 10 meq Spironolactone (Spironolactone 25 Mg Tab) 25 mg PO DAILY [facility] Stop: 10/28/24 08:59
--- NOTE | 2024-09-28 08:35 | Hospitalist Progress Note ---
Date of Service September 28, 2024 Assessment & Plan (1) Cardiac left ventricular ejection fraction 10-20 percent: (2) HFrEF (heart failure with reduced ejection fraction): (3) Sleep apnea: (4) Hyperlipidemia: (5) Hypertension: (6) Depression: Plan Atrial fibrillation with rapid ventricular response Acute on chronic heart failure with reduced EF -- POA H/O paroxysmal atrial fibrillation S/P ablation X2 H/O dilated cardiomyopathy --ECHO: Rhythm is A-fib RVR. Left ventricle is moderately dilated. Left ventricle systolic function is severely reduced. EF 25 to 30%. Severe global hypokinesis of left ventricle. Left atrium is severely dilated. Right atrium is moderately dilated. Mild aortic regurgitation. Mild to moderate mitral regurgitation. Mild tricuspid regurgitation. Estimated systolic pulmonary pressure is 40 mmHg. Dilated inferior cava with reduced collapsibility with sniff indicates an elevated right atrial pressure of 15 mmHg. --CXR:No acute cardiopulmonary findings. Cardiomegaly. --BNP 704 --Normal TSH -- Started on metoprolol succinate 75 mg twice a day --Also started on digoxin On IV heparin for anticoagulation -> plan to switch to Eliquis Cardiology consulted- pt is now s/p CRYSTAL and cardioversion (09/28/[address] Valerio) plan to start on amiodarone IV Lopressor as needed Monitor and replete electrolytes as needed Received IV Lasix Also on Aldactone Further diuresis based on volume status tomorrow Monitor I's and O's, daily weight Sleep apnea Continue CPAP at bedtime Other chronic conditions Hypertension Hyperlipidemia Mood disorder Fibromyalgia Continue home medications when appropriate DVT Px: IV Heparin -> eliquis CODE STATUS Full code Admission and Anticipated Discharge Date Admission Date: September 26, 2024 Subjective Patient is seen in follow up of Afib RVR Previously stated having palpitations intermittently, and dyspnea on exertion, feeling tired Pt seen today after her cardioversion w/ Dr. Valerio Laying in bed in NAD, somewhat drowsy but able to answer questions appropriately Denies any chest pain or palpitations Plan to switch to Eliquis from IV heparin and to start on amiodarone Review of Systems Review of Systems: All systems reviewed & are unremarkable except as noted in Subjective Physical Exam Physical Exam: General Appearance: Obese F in NAD Head: normocephalic, Atraumatic Eyes: normal inspection, EOMI Neck: supple Respiratory/Chest: Normal breath sounds, CTA, No accessory muscle use Cardiovascular: regular, +murmur Abdomen/GI:Soft, Non tender, Bowel sounds present Extremities/Musculoskeletal:normal inspection, Trace edema Neurologic/Psych: Awake, somewhat drowsy but able to answer appropriately, speech fluent, moves extremities Skin: warm, dry Results & Data Results & Data Vital Signs (Past 12 Hours) Vital Signs Temp Pulse Pulse Resp BP BP Pulse Ox 09/28/24 08:00 36.8 C 108 H 16 128/81 97 09/28/24 07:06 97 H 09/28/24 03:27 36.5 C 118 H 18 138/91 96 09/28/24 01:16 101 H 117/74 09/27/24 23:23 36.6 C 129 H 18 148/109 H 95 09/27/24 21:56 121 H O2 Del Method 09/28/24 08:00 CPAP 09/28/24 07:06 09/28/24 03:27 CPAP 09/28/24 01:16 09/27/24 23:23 CPAP 09/27/24 21:56 Laboratory Results 09/28/24 09/27/24 Range/Units 05:59 12:54 WBC 8.58 (4.8-10.8) K/ul RBC 4.85 (4.20-5.40) M/uL Hgb 14.8 (12.0-16.0) g/dl Hct 44.2 (37.0-47.0) % MCV 91.1 (80.0-100.0) fL MCH 30.5 (25.0-34.0) pg MCHC 33.5 (32.0-36.0) g/dL RDW Std Deviation 45.2 (36.4-46.3) fL RDW Coeff of Stevan 13.7 (11.5-14.5) % Plt Count 252 (130-400) K/uL MPV 10.0 (9.4-12.4) fL Heparin Anti-Xa, Unfract 0.36 0.30 (0.3-0.7) IU/ml Sodium 139 (136-145) mmol/L Potassium 4.0 (3.5-5.1) mmol/L Chloride 102 (98-107) mmol/L Carbon Dioxide 27 (21-32) mmol/L Anion Gap 10 (3-11) BUN 17 (6-23) mg/dl Creatinine 0.81 (0.6-1.2) mg/dl Est Cr Clr Drug Dosing 85.9 ml/min eGFR 78.53 BUN/Creatinine Ratio 21.0 H (10-20) Glucose 104 H (70-99(Fasting)) mg/dl Calcium 9.3 (8.6-10.3) mg/dl Magnesium 2.1 (1.7-2.4) mg/dl Medications Administered Current Inpatient Medications Acetaminophen (Acetaminophen 325 Mg Tab) 650 mg PO Q4H PRN PRN Reason: Pain or Fever Stop: 10/26/24 18:34 Alprazolam (Alprazolam 0.5 Mg Tablet) 0.5 mg PO QPM [facility] Stop: 10/27/24 20:59 Last Admin: 09/27/24 21:45 Dose: 0.5 mg Ascorbic Acid (Ascorbic Acid 500 Mg Tab) 1,000 mg PO QPM [facility] Stop: 10/26/24 20:59 Last Admin: 09/27/24 21:45 Dose: 1,000 mg Digoxin (Digoxin 0.125 Mg Tab) 0.125 mg PO DAILY@1600 [facility] Stop: 10/27/24 15:59 Last Admin: 09/27/24 16:51 Dose: 0.125 mg Heparin Sodium/Dextrose (Heparin Sodium/Dextrose) 25,000 units in 500 mls @ 30 mls/hr IV .[id number] [facility]; Protocol Stop: 10/26/24 17:14 Last Admin: 09/28/24 01:37 Dose: 1,500 units/hr, 30 mls/hr Loratadine (Loratadine 10 Mg Tab) 10 mg PO QAM [facility] Stop: 10/27/24 08:59 Last Admin: 09/27/24 08:46 Dose: 10 mg Metoprolol Succinate (Metoprolol Succ 25mg Ext Rel Tab) 75 mg PO BID [facility] Stop: 10/27/24 20:59 Last Admin: 09/27/24 21:46 Dose: 75 mg Metoprolol Tartrate (Metoprolol Tartrate 1 Mg/Ml Vial) 5 mg IV Q6 PRN PRN Reason: sustained HR > 120 Stop: 10/27/24 00:00 Last Admin: 09/27/24 16:47 Dose: 5 mg Potassium Chloride (Potassium Chloride 10 Meq Tabcr) 10 meq PO QPM [facility] Stop: 10/26/24 20:59 Last Admin: 09/27/24 21:45 Dose: 10 meq Spironolactone (Spironolactone 25 Mg Tab) 25 mg PO DAILY [facility] Stop: 10/28/24 08:59 (5) Hypertension Hypertension type: primary hypertension Qualified Code(s): I10 - Essential (primary) hypertension
[2024-09-28] MEDS: SPIRONOLACTONE 25 MG TAB PO SCH (09:17)
--- NOTE | 2024-09-28 09:25 | Cardiology Progress Note ---
Date of Service September 28, 2024 Assessment & Plan (1) HFrEF (heart failure with reduced ejection fraction): (2) Dilated cardiomyopathy: (3) Atrial fibrillation with rapid ventricular response: (4) NSVT (nonsustained ventricular tachycardia): Plan Echo performed this admission, 09/27/24: LVEF 25-30% (severely diminished) with severe global left ventricular hypokinesis. Severe left atrial enlargement. Mild to moderate mitral regurgitation. 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 Patient states that she has been off of Eliquis since January or Feb, 2024. Has history of intolerance to multiple medications. Discussed risks and benefits of CRYSTAL guided cardioversion. Informed consent obtained. Patient elects to proceed. Continue heparin infusion. Anti-Xa level is within the therapeutic range. Continue metoprolol succinate 75 mg BID, digoxin 0.125 mg daily, spironolactone 25 mg daily. Consider oral amiodarone after cardioversion. CXR, TSH, LFTs stable. Admission and Anticipated Discharge Date Admission Date: September 26, 2024 Subjective Patient seen in cardiology follow up. Notes 6 days of debilitating shortness of breath with exertion with associated sensation of elevated heart rates. Currently on telemetry atrial fibrillation with ventricular rates in the 130s at rest noted. Ventricular rate had been as high at 170s with minimal exertion walking to the rest room. A 17 beat run of non sustained ventricular tachycardia was observed at 1230 am on 09/28/24 with rate of 180 bpm. Review of Systems Review of Systems: All systems reviewed & are unremarkable except as noted in HPI & below Physical Exam Constitutional: + ill appearing; no acute distress Eyes: PERRL, conjunctivae normal, anicteric sclerae Respiratory: normal respiratory effort, lungs clear to auscultation Cardiovascular: Rate/Rhythm: + tachycardic and + irregularly irregular Heart Sounds: no murmur Vessels: no JVD Extremities: no edema Musculoskeletal: no cyanosis or clubbing, extremities motor strength 5/5 Skin: no rashes, warm and dry Neurologic: PERRL, EOMI, accommodation nl, no face palsy, no dysarthria Results & Data Vital Signs (Past 12 Hours) Vital Signs Temp Pulse Pulse Resp BP BP Pulse Ox 09/28/24 08:00 36.8 C 108 H 16 128/81 97 09/28/24 07:06 97 H 09/28/24 03:27 36.5 C 118 H 18 138/91 96 09/28/24 01:16 101 H 117/74 09/27/24 23:23 36.6 C 129 H 18 148/109 H 95 09/27/24 21:56 121 H O2 Del Method 09/28/24 08:00 CPAP 09/28/24 07:06 09/28/24 03:27 CPAP 09/28/24 01:16 09/27/24 23:23 CPAP 09/27/24 21:56 Laboratory Results CBC 09/28/24 Range/Units 05:59 WBC 8.58 (4.8-10.8) K/ul RBC 4.85 (4.20-5.40) M/uL Hgb 14.8 (12.0-16.0) g/dl Hct 44.2 (37.0-47.0) % Plt Count 252 (130-400) K/uL Comprehensive Metabolic Panel 09/28/24 Range/Units 05:59 Sodium 139 (136-145) mmol/L Potassium 4.0 (3.5-5.1) mmol/L Chloride 102 (98-107) mmol/L Carbon Dioxide 27 (21-32) mmol/L BUN 17 (6-23) mg/dl Creatinine 0.81 (0.6-1.2) mg/dl Glucose 104 H (70-99(Fasting)) mg/dl Calcium 9.3 (8.6-10.3) mg/dl Intake and Output 09/27/24 09/28/24 09/28/24 22:59 06:59 14:59 Intake Total 300 / 1253.5 480 / 1253.5 Output Total 1200 / 2600 Balance 300 / -1346.5 -720 / -1346.5 Intake: IV 480 / 713.5 Heparin Sodium/Dextrose 25,000 480 / 713.5 units In 500 ml @ 1,500 UNITS/ HR 30 mls/hr IV .[id number] [facility] Rx #:[id number] Oral 300 / 540 Output: Urine 1200 / 2600 Other: Other Intake Source NPO # Unmeasured Voids 2 Weight 118.5 kg Weight Measurement Method Standing Scale
--- NOTE | 2024-09-28 09:59 | Electrocardiogram Report ---
Test Reason : Blood Pressure : */* mmHG Vent. Rate : 114 BPM Atrial Rate : 150 BPM P-R Int : * ms QRS Dur : 98 ms QT Int : 350 ms P-R-T Axes : * 10 141 degrees QTcB Int : 482 ms Atrial fibrillation with rapid ventricular response with premature ventricular or aberrantly conducte d complexes Nonspecific ST and T wave abnormality Abnormal ECG When compared with ECG of 27-Sep-2024 05:13, No significant change was found Confirmed by Thanh Muse ([id number]) on 09/28/2024 9:58:49 AM Referred By: REFERRED SELF Confirmed By: Thanh Muse
--- NOTE | 2024-09-28 10:09 | Anesthesiology Consultation ---
Date of Service September 28, 2024 Assessment & Plan Chart Review Chart Review: Acceptable Risk for Surgery and Patient NOT seen in Pre Admission Testing Consults Requested none ASA ASA4 Proposed Anesthesia Anesthesia Type: MAC History Surgery Operation Date: 09/28/24 12:00 Proposed Procedures p Transesophageal Echo w/Anesthesia - Clifton Valerio DO s Cardioversion - Clifton Valerio DO Height/Weight Height: 5 ft 6 in Weight: 118.5 kg Allergies Allergy/AdvReac Type Severity Reaction Status Date / Time lisinopril Allergy Severe Throat Verified 09/26/24 14:21 tightness Iodinated Contrast Media Allergy Intermediate Rash Verified 09/26/24 14:21 citalopram Allergy Mild Rash Verified 09/26/24 14:21 Beta-Blockers AdvReac Intermediate Increase Verified 09/26/24 14:21 (Beta-Adrenergic Bloc of symptoms/conditions digoxin AdvReac Unknown "Did not Verified 09/26/24 14:21 work" Medications Home Medications Medication Instructions Recorded Confirmed Last Taken ascorbic acid (vitamin C) 1,000 mg 1,000 mg PO QPM 07/24/22 09/26/24 11/11/23 tablet,extended release (Vitamin C ER) multivitamin 1 tab PO QPM 07/24/22 09/26/24 11/11/23 potassium chloride 10 mEq 10 meq PO QPM 07/24/22 09/26/24 11/11/23 tablet,extended 10 MEQ release(part/cryst) (Klor-Con M) acetaminophen 500 mg capsule 1,000 mg PO TID PRN Pain 03/26/23 09/26/24 03/25/23 zinc gluconate 50 mg tablet 50 mg PO QPM 11/12/23 09/26/24 11/11/23 alprazolam 0.5 mg tablet (Xanax) 0.5 mg PO QPM as needed for sleep 11/19/23 09/26/24 Unknown #14 tabs loratadine 10 mg tablet (Wal-itin) 10 mg PO QAM #30 tabs 11/19/23 09/26/24 Unknown spironolactone 25 mg tablet 12.5 mg (1/2 x 25 mg) PO DAILY #30 11/19/23 09/26/24 Unknown tabs bumetanide 1 mg tablet 1 mg PO DAILY 09/26/24 09/26/24 Unknown Active Medications Generic Name Dose Route Start Last Admin Trade Name Freq PRN Reason Stop Dose Admin Alprazolam 0.5 mg 09/27/24 21:00 09/27/24 21:45 Alprazolam 0.5 Mg Tablet PO 10/27/24 20:59 0.5 mg QPM FERNANDA Administration Ascorbic Acid 1,000 mg 09/26/24 21:00 09/27/24 21:45 Ascorbic Acid 500 Mg Tab PO 10/26/24 20:59 1,000 mg QPM FERNANDA Administration Digoxin 0.125 mg 09/27/24 16:00 09/27/24 16:51 Digoxin 0.125 Mg Tab PO 10/27/24 15:59 0.125 mg DAILY@1600 FERNANDA Administration Heparin Sodium/Dextrose 25,000 units in 500 mls @ 30 mls/hr 09/26/24 17:15 09/28/24 01:37 Heparin Sodium/Dextrose IV 10/26/24 17:14 1,500 units/hr .[id number] FERNANDA 30 mls/hr Administration Protocol 1,500 UNITS/HR Loratadine 10 mg 09/27/24 09:00 09/28/24 08:18 Loratadine 10 Mg Tab PO 10/27/24 08:59 10 mg QAM FERNANDA Administration Metoprolol Succinate 75 mg 09/27/24 21:00 09/28/24 09:16 Metoprolol Succ 25mg Ext Rel Tab PO 10/27/24 20:59 75 mg BID FERNANDA Administration Metoprolol Tartrate 5 mg 09/27/24 08:39 09/27/24 16:47 Metoprolol Tartrate 1 Mg/Ml Vial IV 10/27/24 00:00 5 mg Q6 PRN Administration sustained HR > 120 Potassium Chloride 10 meq 09/26/24 21:00 09/27/24 21:45 Potassium Chloride 10 Meq Tabcr PO 10/26/24 20:59 10 meq QPM FERNANDA Administration Spironolactone 25 mg 09/28/24 09:00 09/28/24 09:17 Spironolactone 25 Mg Tab PO 10/28/24 08:59 25 mg DAILY FERNANDA Administration Past Medical History Medical History Shortness of breath Diarrhea Obesity Encounter for pre-operative examination History of COVID-19 Dx 09/2021, symptoms resolved except residual taste/smell impairment Osteoarthritis Cancer Lymphoma (2016) s/p treatment in [place], PCP monitors Atrial fibrillation Follows with [facility]/Dr. Medina Hx/o CHF NICM-severe LV dysfxn severe sleep apnea morbid obesity HTN HLD Exercise / Class Metabolic Activity III < 4 Walking/Shop/Light housework Past Family History Family History Other Hypertension Past Surgical History Surgical History History of tonsillectomy and adenoidectomy History of ear surgery LEFT X 2-RIGHT X 1-MASTOIDECTOMY/TYMPANOPLASTY History of sinus surgery History of section History of thyroidectomy History of esophagogastroduodenoscopy (EGD) History of colon resection 2015 FOR BLEEDING TUMOR History of colonoscopy History of cardioversion ~2014 Past Anesthesia History No Hx of Anesthesia Complications and No Family Hx of Anesthesia Complications History of PONV No Hx of PONV and No Hx of Motion Sickness Social History Smoking Status: Never smoker Do You Dip or Chew Tobacco: No Hx Alcohol Use: No alcohol intake frequency: holidays/special occasions only Hx Substance Use: No substance use type: does not use Physical Exam Vital Signs Last Vital Signs Temp 36.8 C 09/28/24 08:00 Pulse 108 H 09/28/24 08:00 Resp 16 09/28/24 08:00 BP 128/81 09/28/24 08:00 Pulse Ox 97 09/28/24 08:00 O2 Del Method CPAP 09/28/24 08:00 O2 Flow Rate 2 09/27/24 11:19 Testing Laboratory Results 09/28/24 05:59 09/28/24 05:59 PT 11.0 Seconds (9.0-12.0) 09/26/24 14:07 INR 1.0 (0.9-1.1) 09/26/24 14:07 APTT 26 Seconds (21-31) 09/26/24 14:07 Urine Color Yellow 09/26/24 21:55 Urine Appearance Clear (Clear) 09/26/24 21:55 Urine pH 7.0 (4.5-7.5) 09/26/24 21:55 Ur Specific [place] 1.007 (1.000-1.030) 09/26/24 21:55 Urine Protein Negative (Negative) 09/26/24 21:55 Urine Glucose (UA) Negative (Negative) 09/26/24 21:55 Urine Ketones Negative (Negative) 09/26/24 21:55 Urine Nitrite Negative (Negative) 09/26/24 21:55 Ur Leukocyte Esterase Trace (Negative) H 09/26/24 21:55 Urine WBC (Auto) 0-5 /hpf (0-5) 09/26/24 21:55 Urine RBC (Auto) 0-2 /hpf (0-2) 09/26/24 21:55 U Hyaline Cast (Auto) 0-2 /lpf (0-2) 09/26/24 21:55 U Epithel Cells (Auto) 0-2 /hpf (0-2) 09/26/24 21:55 Urine Bacteria (Auto) None Seen (None Seen) 09/26/24 21:55 Electrocardiogram Date: 09/28/24 Findings: + NSST changes and + AFIB @ (@ 114;RVR;) Chest X-Ray Date: 09/26/24 Findings: + NAD and + cardiomegaly Echocardiogram Date: 09/27/24 EF: 25% LV Function: dysfunctional RWMA: + hypokinetic (severe global HK) Other Findings: + atrial enlargement (Severe LA dilation;RA- mod. dilation) Valvular Disease: + AI (mild) and + MR (moderate) TR-mild RV-decreased fxn PA sys pressure-40 torr
[2024-09-28] MEDS ORDERED: PROPOFOL IV EMULSION 10 MG/ML 20 ML VIAL IV ONE (11:45)
[2024-09-28] MEDS ORDERED: LIDOCAINE 2% 2 ML VIAL/AMP(20MG/ML) INFIL ONE (11:45)
[2024-09-28] MEDS ORDERED: KETAMINE HCL 10MG/ML SYR ONE (11:46)
[2024-09-28] MEDS ORDERED: 0.2 MICRON FILTER SET 1 EACH IV STA (12:50)
[2024-09-28] MEDS ORDERED: STAT IV Infusion **Titration per Protocol STA (12:50)
--- NOTE | 2024-09-28 12:57 | Anesthesiology Progress Note ---
Date of Service September 28, 2024 Anesthesia Post Procedure Vital Signs Vital Signs: Temp Pulse Pulse Resp BP BP Pulse Ox 09/28/24 11:00 36.6 C 100 H 18 139/81 98 09/28/24 10:14 129 H 113/84 09/28/24 08:00 36.8 C 108 H 16 128/81 97 09/28/24 07:06 97 H 09/28/24 03:27 36.5 C 118 H 18 138/91 96 09/28/24 01:16 101 H 117/74 09/27/24 23:23 36.6 C 129 H 18 148/109 H 95 09/27/24 21:56 121 H 09/27/24 19:36 109 H 16 116/86 90 09/27/24 17:36 118 H 127/92 09/27/24 16:51 138 H 09/27/24 16:47 138 H 131/85 09/27/24 15:11 123 H 09/27/24 15:09 36.6 C 134 H 26 H 114/88 90 O2 Del Method 09/28/24 11:00 Room Air 09/28/24 10:14 09/28/24 08:00 CPAP 09/28/24 07:06 09/28/24 03:27 CPAP 09/28/24 01:16 09/27/24 23:23 CPAP 09/27/24 21:56 09/27/24 19:36 Room Air 09/27/24 17:36 09/27/24 16:51 09/27/24 16:47 09/27/24 15:11 09/27/24 15:09 Room Air Transfer of Care Handoff Completed per policy Notes Mental Status: alert / awake / arousable Patient Amnestic to Procedure: Yes Nausea / Vomiting: adequately controlled Pain: adequately controlled Airway Patency, RR, SpO2: stable & adequate BP & HR: stable & adequate Hydration State: stable & adequate Anesthetic Complications: no major complications apparent
--- NOTE | 2024-09-28 12:57 | Cardioversion ---
Date of Service September 28, 2024 Electrical Cardioversion Rpt Electrical Cardioversion Report Operation Date: 09/28/24 12:00 Procedure Preprocedure diagnosis: Rule out left atrial/left atrial appendage thrombus, symptomatic atrial fibrillation with rapid ventricular response Post procedure diagnosis: Evidence of left atrial or left atrial appendage thrombus, successful direct-current cardioversion to sinus rhythm Transesophageal echocardiogram guided direct-current cardioversion procedure note: The procedure took place with the assistance of the anesthesia service in the postanesthesia care unit. The patient's vital signs were monitored via the standard fashion. After informed consent was obtained and timeout was performed the patient received a total of 10 mg of ketamine, 60 mg of lidocaine and 80 mg of propofol intravenously. The patient underwent a focused transesophageal echocardiogram. Limited goal- directed views were obtained for risk stratification. There was no left atrial or left atrial appendage thrombus. Patient then underwent direct-current cardioversion receiving a single dose of 200 J of biphasic synchronized energy with successful conversion to sinus rhythm. Recommendations: Post procedure EKG ordered and will be reviewed. In addition to oral metoprolol and oral digoxin, add IV amiodarone infusion with plans to transition her to oral amiodarone in the next 24 hours. At 2100 on 09/28/2024 we will plan to discontinue heparin infusion and administer first dose of Eliquis. Anesthesiology Teacher Clifton Valerio DO Centrifugal Drier Operator ANA [place] Estimated Blood Loss 0 Findings Consistent with Post-Op Diagnosis Specimens Specimen Description: none Complications No complications were immediately apparent. Disposition Accompanied Patient To Recovery: Yes Overlapping Procedure I was immediately available: during the entire case.
[2024-09-28] MEDS: BENZOCAINE/TETRACAIN/BUTAM 50 APPLN/5 GM CAN EXT ONE (13:44)
[2024-09-28] MEDS: AMIODARONE / D5W 150 MG/100 ML BAG IV STA (13:46)
[2024-09-28] MEDS: AMIODARONE IV BOLUS & DRIP IV STA (13:50)
[2024-09-28] MEDS: AMIODARONE / D5W 360 MG/200 ML BAG IV ONE (14:24)
--- NOTE | 2024-09-28 15:21 | Communication Note ---
Date of Service: September 28, 2024 Post cardioversion EKG reviewed performed 09/28/2024 at 2:16 p.m.: Sinus rhythm at 75 beats per minute with 1 noted PVC. Age undetermined septal infarct pattern noted in lead V2. ST T wave abnormality noted in the lateral leads I and aVL suggestive of possible lateral ischemia. Compared to the previous EKG that revealed sinus rhythm on 11/19/2023, no significant interval change with the exception of the single PVC.
--- NOTE | 2024-09-28 16:04 | Electrocardiogram Report ---
Test Reason : Blood Pressure : */* mmHG Vent. Rate : 75 BPM Atrial Rate : 75 BPM P-R Int : 160 ms QRS Dur : 92 ms QT Int : 390 ms P-R-T Axes : 56 17 122 degrees QTcB Int : 435 ms Sinus rhythm with occasional Premature ventricular complexes Possible Left atrial enlargement Septal infarct , age undetermined Abnormal ECG When compared with ECG of 28-Sep-2024 08:48, (unconfirmed) QRS duration has increased Septal infarct is now Present T wave inversion now evident in Lateral leads Confirmed by Thanh Msue ([id number]) on 09/28/2024 4:04:07 PM Referred By: REFERRED SELF Confirmed By: Thanh Muse
--- NOTE | 2024-09-28 16:05 | Electrocardiogram Report ---
Test Reason : Blood Pressure : */* mmHG Vent. Rate : 111 BPM Atrial Rate : 127 BPM P-R Int : * ms QRS Dur : 74 ms QT Int : 326 ms P-R-T Axes : * 31 56 degrees QTcB Int : 443 ms Sinus tachycardia Premature atrial complexes Premature ventricular complexes Abnormal ECG When compared with ECG of 28-Sep-2024 06:36, QRS duration has decreased Nonspecific T wave abnormality no longer evident in Lateral leads Confirmed by Thanh Muse ([id number]) on 09/28/2024 4:04:51 PM Referred By: REFERRED SELF Confirmed By: Thanh Muse
[2024-09-28] MEDS: AMIODARONE / D5W 360 MG/200 ML BAG IV SCH (20:12)
[2024-09-28] MEDS: APIXABAN 5 MG TABLET PO SCH (20:35)
[2024-09-28] MEDS: STOP ORDER [HEPARIN DRIP] ONE (21:00)
[2024-09-29 06:38] LABS: Hematocrit (blood only) 41.7 % (37.0-47.0); Hemoglobin 14.1 g/dl (12.0-16.0); Mean Corpuscular Hemoglobin 30.6 pg (25.0-34.0); Mean Corpuscular Hgb Conc 33.8 g/dL (32.0-36.0); Mean Corpuscular Volume 90.5 fL (80.0-100.0); Mean Platelet Volume 9.6 fL (9.4-12.4); Platelet Count 255 K/uL (130-400); RDW Coefficient of Variation 14.3 % (11.5-14.5); RDW Standard Deviation 47.2 fL (36.4-46.3); Red Blood Count 4.61 M/uL (4.20-5.40); White Blood Count 8.18 K/ul (4.8-10.8)
[2024-09-29 06:59] LABS: Albumin Globulin Ratio 1.2 (0.9-2); Albumin Level 3.9 gm/dl (3.4-5.0); BUN Creatinine Ratio 24.7 (10-20); Bilirubin,Total 0.9 mg/dl (0.2-1.0); Calcium 9.5 mg/dl (8.6-10.3); Creatinine Clr Calc Pharmacy 78.5 ml/min; Globulin 3.3 gm/dl (2.5-4.0); Magnesium 2.1 mg/dl (1.7-2.4); Phosphorus 4.1 mg/dl (2.5-4.9); Potassium 3.8 mmol/L (3.5-5.1); Total Protein 7.2 gm/dl (6.0-8.3)
[2024-09-29 07:00] LABS: ANTI-Xa, UFH(UnfractionatedHep 0.57 IU/ml (0.3-0.7)
--- NOTE | 2024-09-29 07:42 | Cardiology Progress Note ---
Date of Service September 29, 2024 Assessment & Plan (1) Atrial fibrillation: Plan Pt seen and evaluated with [facility] staff Concur with evaluation and plans 68 yo woman presenting with palpitations Dx: Afib with RVR K+ 3.7 Mag++ 2.0 TSH - 1.9 BNP 704 [id number] Afib + RVR - ventricular 160-170 Rx with Cardizem Cardizem was discontinued - Transitioned to Beta Blockers + Digoxin ECHO - 09-27-2024 LV function severely reduced LVEF 25-30% LV moderately dilated LA severely dilated RA moderately dilated RV systolic function - reduced AI - mild MR - mild to moderate TR - mild PASP 40 mmHg Dilated IVC Med Hx: * Cardiomyopathy * HFRF * LVEF 20% * PAF * S/P Ablations (2023 @ [facility]) * HTN * Hyperlipidemia * WILL on BiPaP * Diffuse large B-Cell Lymphoma * GI Bleeding * Gout * Dilated Ascending Aorta Plans: * Afib - RVR on presentation * S/P CRYSTAL Cardioversion * Now in NSR * On IV Amiodarone * START Amiodarone 200 mg po BID * STOP IV Amiodarone * Patient had thyroid dysfunction with Amiodarone + allopecia * Plans for quick EP evaluation- question of repeat ablation in lue of Amiodarone * TSH 1.9 * Continue Toprol XL 75 mg po BID * STOP Digoxin * Diuresing - appears euvolemic * START Bumex 1 mg po daily * STOP Lasix 100 mg IV * Start Jardiance 10 mg po per day * Continue Aldactone to 25 mg po per day * K+ goal 4.5-5 * KDUR 40 meq po x 1 on 09/29/2024 * Mag goal >2 * Start afterload reduction once we get rate controlled - patient had "throat swelling with GO" (May use Hydral/nitrates) - no GO/ARB/ARNI * Follow up with [facility] Cardiology * 52 min spent addressing challenges, educating and advancing daily plan of care Herbert Jones Admission and Anticipated Discharge Date Admission Date: September 26, 2024 Subjective Events Overnight: * Telemetry - NSR with occasional PVCs - Ventricular rates in the 60's * S/P DC Cardioversion * CRYSTAL - No JOSE Thrombus Subjective: * No complaints Review of Systems Review of Systems: All systems reviewed & are unremarkable except as noted in HPI & below Physical Exam Physical Exam: Obese JVP @ base of neck S1S2 2/6 systolic murmur CTA B No C/C/E Warm and perfusing Results & Data Vital Signs (Past 12 Hours) Vital Signs Temp Pulse Pulse Resp BP Pulse Ox O2 Del Method 09/29/24 07:24 63 09/29/24 06:58 111 H 111/66 09/29/24 03:16 36.5 C 61 18 110/75 95 CPAP 09/28/24 22:59 36.6 C 62 18 117/84 95 CPAP 09/28/24 21:43 63 09/28/24 21:00 CPAP O2 Flow Rate 09/29/24 07:24 09/29/24 06:58 09/29/24 03:16 2 09/28/24 22:59 2 09/28/24 21:43 09/28/24 21:00 Laboratory Results Cardiac Enzymes 09/29/24 Range/Units 06:00 AST 28 (13-39) U/L CBC 09/29/24 Range/Units 06:00 WBC 8.18 (4.8-10.8) K/ul RBC 4.61 (4.20-5.40) M/uL Hgb 14.1 (12.0-16.0) g/dl Hct 41.7 (37.0-47.0) % Plt Count 255 (130-400) K/uL Comprehensive Metabolic Panel 09/29/24 Range/Units 06:00 Sodium 138 (136-145) mmol/L Potassium 3.8 (3.5-5.1) mmol/L Chloride 102 (98-107) mmol/L Carbon Dioxide 25 (21-32) mmol/L BUN 22 (6-23) mg/dl Creatinine 0.89 (0.6-1.2) mg/dl Glucose 130 H (70-99(Fasting)) mg/dl Calcium 9.5 (8.6-10.3) mg/dl AST 28 (13-39) U/L ALT 31 (7-52) U/L Alkaline Phosphatase 80 (34-104) U/L Total Protein 7.2 (6.0-8.3) gm/dl Albumin 3.9 (3.4-5.0) gm/dl Intake and Output 09/28/24 09/29/24 09/29/24 22:59 06:59 14:59 Intake Total 1001.14 / 1101.14 190.102 / 190.102 Output Total 450 / 875 425 / 875 Balance 551.14 / 226.14 -425 / 226.14 190.102 / 190.102 Intake: IV 651.14 / 751.14 190.102 / 190.102 Amiodarone / D5w 360 mg In 200 193.14 / 193.14 190.102 / 190.102 ml @ 0.5 MG/MIN 16.667 mls/hr IV .Q12H [facility] Rx#:[id number] Heparin Sodium/Dextrose 25,000 458 / 458 units In 500 ml @ 1,500 UNITS/ HR 30 mls/hr IV .[id number] [facility] Rx #:[id number] Oral 350 / 350 Output: Urine 450 / 875 425 / 875 Other: Other Intake Source sips # Unmeasured Voids 1 Weight 119.3 kg Weight Measurement Method Built in [facility] Diagnostic Findings CRYSTAL: 09-28-2024 JOSE - Spontaneous ECHO Contrast No LA mass or thrombus Medications Administered Current Inpatient Medications Acetaminophen (Acetaminophen 325 Mg Tab) 650 mg PO Q4H PRN PRN Reason: Pain or Fever Stop: 10/26/24 18:34 Alprazolam (Alprazolam 0.5 Mg Tablet) 0.5 mg PO QPM [facility] Stop: 10/27/24 20:59 Last Admin: 09/28/24 20:32 Dose: 0.5 mg Apixaban (Apixaban 5 Mg Tablet) 5 mg PO BID [facility] Stop: 10/28/24 20:59 Last Admin: 09/28/24 20:35 Dose: 5 mg Ascorbic Acid (Ascorbic Acid 500 Mg Tab) 1,000 mg PO QPM [facility] Stop: 10/26/24 20:59 Last Admin: 09/28/24 20:36 Dose: 1,000 mg Digoxin (Digoxin 0.125 Mg Tab) 0.125 mg PO DAILY@1600 [facility] Stop: 10/27/24 15:59 Last Admin: 09/28/24 16:49 Dose: 0.125 mg Amiodarone HCl/Dextrose (Nexterone / D5w) 360 mg in 200 mls @ 16.667 mls/hr IV .Q12H [facility] Stop: 10/28/24 18:59 Last Admin: 09/29/24 07:35 Dose: 0.5 mg/min, 16.7 mls/hr Loratadine (Loratadine 10 Mg Tab) 10 mg PO QAM [facility] Stop: 10/27/24 08:59 Last Admin: 09/28/24 08:18 Dose: 10 mg Metoprolol Succinate (Metoprolol Succ 25mg Ext Rel Tab) 75 mg PO BID [facility] Stop: 10/27/24 20:59 Last Admin: 09/28/24 20:36 Dose: 75 mg Metoprolol Tartrate (Metoprolol Tartrate 1 Mg/Ml Vial) 5 mg IV Q6 PRN PRN Reason: sustained HR > 120 Stop: 10/27/24 00:00 Last Admin: 09/28/24 10:14 Dose: 5 mg Potassium Chloride (Potassium Chloride 10 Meq Tabcr) 10 meq PO QPM [facility] Stop: 10/26/24 20:59 Last Admin: 09/28/24 20:35 Dose: 10 meq Spironolactone (Spironolactone 25 Mg Tab) 25 mg PO DAILY [facility] Stop: 10/28/24 08:59 Last Admin: 09/28/24 09:17 Dose: 25 mg
[2024-09-29] MEDS: HYDROCORTISONE 1% CRM 30 GM TUBE EXT PRN (12:54)
[2024-09-29] MEDS: POTASSIUM CHLORIDE 10 MEQ TABCR PO STA (15:10)
--- NOTE | 2024-09-29 15:22 | Hospitalist Progress Note ---
Date of Service September 29, 2024 Assessment & Plan (1) Cardiac left ventricular ejection fraction 10-20 percent: (2) HFrEF (heart failure with reduced ejection fraction): (3) Sleep apnea: (4) Hyperlipidemia: (5) Hypertension: (6) Depression: Plan Atrial fibrillation with rapid ventricular response Acute on chronic heart failure with reduced EF -- POA H/O paroxysmal atrial fibrillation S/P ablation X2 H/O dilated cardiomyopathy --ECHO: Rhythm is A-fib RVR. Left ventricle is moderately dilated. Left ventricle systolic function is severely reduced. EF 25 to 30%. Severe global hypokinesis of left ventricle. Left atrium is severely dilated. Right atrium is moderately dilated. Mild aortic regurgitation. Mild to moderate mitral regurgitation. Mild tricuspid regurgitation. Estimated systolic pulmonary pressure is 40 mmHg. Dilated inferior cava with reduced collapsibility with sniff indicates an elevated right atrial pressure of 15 mmHg. --CXR:No acute cardiopulmonary findings. Cardiomegaly. --BNP 704 --Normal TSH -- Started on metoprolol succinate 75 mg twice a day --Also started on digoxin - plan to stop digoxin now On IV heparin for anticoagulation -> switched to Eliquis Cardiology consulted- pt is now s/p CRYSTAL and cardioversion (09/28/[address] Valerio) plan to switch from IV to PO amiodarone 200 mg po BID IV Lopressor as needed Monitor and replete electrolytes as needed Received IV Lasix -> switch to Po bumex Also on Aldactone 25 mg po per day Further diuresis based on volume status - seems euvolemic Monitor I's and O's, daily weight Plans for quick EP evaluation- question of repeat ablation in lue of Amiodarone Start Jardiance 10 mg po per day Follow up with [facility] Cardiology Sleep apnea Continue CPAP at bedtime Other chronic conditions Hypertension Hyperlipidemia Mood disorder Fibromyalgia Continue home medications when appropriate DVT Px: eliquis CODE STATUS Full code Admission and Anticipated Discharge Date Admission Date: September 26, 2024 Subjective Patient is seen in follow up of Afib RVR Previously stated having palpitations intermittently, and dyspnea on exertion, feeling tired Pt s/p cardioversion w/ Dr. Valerio yesterday, remains in sinus rhythm, currently on IV amiodarone Laying in bed in NAD, able to answer questions appropriately. Daughter present at the bedside. Denies any chest pain or palpitations Seen w/ cardiology (Dr. Jones) at the bedside Plan to switch to Po amiodarone, stop IV lasix -switch to PO bumex, stop digoxin Review of Systems Review of Systems: All systems reviewed & are unremarkable except as noted in Subjective Physical Exam Physical Exam: General Appearance: Obese F in NAD Head: normocephalic, Atraumatic Eyes: normal inspection, EOMI Neck: supple Respiratory/Chest: Normal breath sounds, CTA, No accessory muscle use Cardiovascular: regular, +murmur Abdomen/GI:Soft, Non tender, Bowel sounds present Extremities/Musculoskeletal:normal inspection, Trace edema Neurologic/Psych: Awake, alert, oriented, able to answer appropriately, speech fluent, moves extremities Skin: warm, dry Results & Data Results & Data Vital Signs (Past 12 Hours) Vital Signs Temp Pulse Pulse Resp BP Pulse Ox O2 Del Method 09/29/24 15:20 63 09/29/24 11:00 36.7 C 114 H 20 119/63 98 Room Air 09/29/24 07:24 63 09/29/24 06:58 111 H 111/66 Laboratory Results 09/29/24 Range/Units 06:00 WBC 8.18 (4.8-10.8) K/ul RBC 4.61 (4.20-5.40) M/uL Hgb 14.1 (12.0-16.0) g/dl Hct 41.7 (37.0-47.0) % MCV 90.5 (80.0-100.0) fL MCH 30.6 (25.0-34.0) pg MCHC 33.8 (32.0-36.0) g/dL RDW Std Deviation 47.2 H (36.4-46.3) fL RDW Coeff of Stevan 14.3 (11.5-14.5) % Plt Count 255 (130-400) K/uL MPV 9.6 (9.4-12.4) fL Heparin Anti-Xa, Unfract 0.57 (0.3-0.7) IU/ml Sodium 138 (136-145) mmol/L Potassium 3.8 (3.5-5.1) mmol/L Chloride 102 (98-107) mmol/L Carbon Dioxide 25 (21-32) mmol/L Anion Gap 11 (3-11) BUN 22 (6-23) mg/dl Creatinine 0.89 (0.6-1.2) mg/dl Est Cr Clr Drug Dosing 78.5 ml/min eGFR 70.14 BUN/Creatinine Ratio 24.7 H (10-20) Glucose 130 H (70-99(Fasting)) mg/dl Calcium 9.5 (8.6-10.3) mg/dl Phosphorus 4.1 (2.5-4.9) mg/dl Magnesium 2.1 (1.7-2.4) mg/dl Total Bilirubin 0.9 (0.2-1.0) mg/dl AST 28 (13-39) U/L ALT 31 (7-52) U/L Alkaline Phosphatase 80 (34-104) U/L Total Protein 7.2 (6.0-8.3) gm/dl Albumin 3.9 (3.4-5.0) gm/dl Globulin 3.3 (2.5-4.0) gm/dl Albumin/Globulin Ratio 1.2 (0.9-2) Medications Administered Current Inpatient Medications Acetaminophen (Acetaminophen 325 Mg Tab) 650 mg PO Q4H PRN PRN Reason: Pain or Fever Stop: 10/26/24 18:34 Alprazolam (Alprazolam 0.5 Mg Tablet) 0.5 mg PO QPM [facility] Stop: 10/27/24 20:59 Last Admin: 09/28/24 20:32 Dose: 0.5 mg Amiodarone HCl (Amiodarone 200 Mg Tab) 200 mg PO BIDM [facility] Stop: 10/29/24 16:59 Apixaban (Apixaban 5 Mg Tablet) 5 mg PO BID [facility] Stop: 10/28/24 20:59 Last Admin: 09/29/24 07:54 Dose: 5 mg Ascorbic Acid (Ascorbic Acid 500 Mg Tab) 1,000 mg PO QPM [facility] Stop: 10/26/24 20:59 Last Admin: 09/28/24 20:36 Dose: 1,000 mg Bumetanide (Bumetanide 1 Mg Tab) 1 mg PO QAM [facility] Stop: 10/30/24 08:59 Hydrocortisone (Hydrocortisone 1% Crm 30 Gm Tube) 1 appln EXT TID PRN PRN Reason: Rash Stop: 10/29/24 11:59 Last Admin: 09/29/24 12:54 Dose: 1 appln Loratadine (Loratadine 10 Mg Tab) 10 mg PO QAM [facility] Stop: 10/27/24 08:59 Last Admin: 09/29/24 07:55 Dose: 10 mg Metoprolol Succinate (Metoprolol Succ 25mg Ext Rel Tab) 75 mg PO BID [facility] Stop: 10/27/24 20:59 Last Admin: 09/29/24 07:55 Dose: 75 mg Metoprolol Tartrate (Metoprolol Tartrate 1 Mg/Ml Vial) 5 mg IV Q6 PRN PRN Reason: sustained HR > 120 Stop: 10/27/24 00:00 Last Admin: 09/28/24 10:14 Dose: 5 mg Potassium Chloride (Potassium Chloride 10 Meq Tabcr) 10 meq PO QPM [facility] Stop: 10/26/24 20:59 Last Admin: 09/28/24 20:35 Dose: 10 meq Sodium Chloride (Sodium Chloride 0.65% Na Soln 45 Ml ([place])) 1 sprays NA TID PRN PRN Reason: Nasal Congestion Stop: 10/29/24 15:18 Spironolactone (Spironolactone 25 Mg Tab) 25 mg PO DAILY [facility] Stop: 10/28/24 08:59 Last Admin: 09/29/24 07:55 Dose: 25 mg (5) Hypertension Hypertension type: primary hypertension Qualified Code(s): I10 - Essential (primary) hypertension
[2024-09-29] MEDS: AMIODARONE 200 MG TAB PO SCH (16:42)
[2024-09-29] MEDS: SODIUM CHLORIDE 0.65% NA SOLN 45 ML (OCEAN) PRN (16:49)
[2024-09-30 06:42] LABS: Hematocrit (blood only) 41.2 % (37.0-47.0); Hemoglobin 13.6 g/dl (12.0-16.0); Mean Corpuscular Hemoglobin 30.4 pg (25.0-34.0); Mean Platelet Volume 9.9 fL (9.4-12.4); Platelet Count 241 K/uL (130-400); RDW Coefficient of Variation 14.2 % (11.5-14.5); RDW Standard Deviation 47.1 fL (36.4-46.3); Red Blood Count 4.48 M/uL (4.20-5.40); White Blood Count 8.28 K/ul (4.8-10.8)
[2024-09-30 07:07] LABS: ANTI-Xa, UFH(UnfractionatedHep 0.98 IU/ml (0.3-0.7)
[2024-09-30] MEDS: BUMETANIDE 1 MG TAB PO SCH (08:05)
[2024-09-30 10:29] LABS: BUN Creatinine Ratio 23.5 (10-20); Calcium 9.8 mg/dl (8.6-10.3); Creatinine Clr Calc Pharmacy 81.6 ml/min; Magnesium 2.2 mg/dl (1.7-2.4); Phosphorus 3.5 mg/dl (2.5-4.9); Potassium 4.5 mmol/L (3.5-5.1)
--- NOTE | 2024-09-30 12:13 | Discharge Summary ---
Date of Service September 30, 2024 Admission HPI Per Admitting Provider The patient is a 68-year-old female with a past medical history of rapid A-fib s/p 2 ablations, one 8 years ago, one in October 2023, acute on chronic CHFEF 20% 10/21/2023, dilated cardiomyopathy, HTN, chronic sinusitis/mastoiditis, LAYLA, diffuse large B-cell lymphoma, severe WILL on BiPAP who presents to the ED on 09/26/24 with complaints of shortness of breath that started 3 days ago. Patient was admitted to the hospital in October 2023 for a CRYSTAL and ablation due to rapid A-fib. At that time, the patient's EF was 20%. The patient was discharged at that time on metoprolol/amiodarone/Eliquis. Throughout this year, the patient remained in sinus rhythm and was titrated off of those medications. She was on metoprolol up until a few months ago. She complains of negative side effects including feeling her heart is racing. She has been off blood thinners for the past 6 months per the patient. She reports after her first ablation 8 years ago she remained in sinus rhythm for 7 years prior to this. She reports having a recent respiratory illness that she thinks may have triggered this and not getting much sleep. She also has severe sleep apnea on BiPAP that she reports being compliant with. On arrival to the ED, her heart rates were in the [id number]. On exam, the patient's heart rate spikes to the 160s with any movement. She was placed on a Cardizem drip originally with minimal improvement. Heart rates remained in the [id number]. She denies any chest pain. She denies any shortness of breath. Her chest x-ray was negative for anything acute. Her EKG verifies AF with RVR, troponin 18 Her blood work is unremarkable. The patient will be admitted for further management for rapid A-fib. She was started on a heparin drip in the ER. Admission Exam Per Admitting Provider Constitutional: WD/WN, vitals as above Eyes: PERRL, conjunctivae normal, anicteric sclerae ENMT: external ear and nose normal, oropharynx normal Neck: trachea midline, no thyromegaly Respiratory: normal respiratory effort, lungs clear to auscultation Cardiovascular: RRR, no murmur, no edema Rate/Rhythm: + irregularly irregular (Rapid A-fib) Gastrointestinal (Abdomen): normal bowel sounds, soft, nontender, no hepatosplenomegaly Musculoskeletal: no cyanosis or clubbing, extremities motor strength 5/5 Skin: no rashes, warm and dry Neurologic: PERRL, EOMI, accommodation nl, no face palsy, no dysarthria Psychiatric: A+Ox3, euthymic affect Lymphatic: no cervical or axillary lymphadenopathy Principal Diagnosis Afib with RVR Discharge Exam General Appearance: Obese F in NAD Head: normocephalic, Atraumatic Eyes: normal inspection, EOMI Neck: supple Respiratory/Chest: Normal breath sounds, CTA, No accessory muscle use Cardiovascular: regular, +murmur Abdomen/GI:Soft, Non tender, Bowel sounds present Extremities/Musculoskeletal:normal inspection, Trace edema Neurologic/Psych: Awake, alert, oriented, able to answer appropriately, speech fluent, moves extremities Skin: warm, dry Discharge Data Allergies Allergy/AdvReac Type Severity Reaction Status Date / Time lisinopril Allergy Severe Throat Verified 09/26/24 14:21 tightness Iodinated Contrast Media Allergy Intermediate Rash Verified 09/26/24 14:21 citalopram Allergy Mild Rash Verified 09/26/24 14:21 Beta-Blockers AdvReac Intermediate Increase Verified 09/26/24 14:21 (Beta-Adrenergic Bloc of symptoms/conditions digoxin AdvReac Unknown "Did not Verified 09/26/24 14:21 work" Consultations 09/26/24 16:01 ED Decision to Admit Stat 09/26/24 18:35 Consult Cardiology Routine 09/28/24 08:36 Consult Anesthesiology Routine Procedures Performed Operation Date: 09/28/24 12:00 Actual Procedures p Doppler Echo Limited/Follow Up - Clifton Valerio DO s Cardioversion - Clifton Valerio DO Hospital Course (1) Cardiac left ventricular ejection fraction 10-20 percent: (2) HFrEF (heart failure with reduced ejection fraction): (3) Sleep apnea: (4) Hyperlipidemia: (5) Hypertension: (6) Depression: Plan Atrial fibrillation with rapid ventricular response Acute on chronic heart failure with reduced EF -- POA H/O paroxysmal atrial fibrillation S/P ablation X2 H/O dilated cardiomyopathy --ECHO: Rhythm is A-fib RVR. Left ventricle is moderately dilated. Left ventricle systolic function is severely reduced. EF 25 to 30%. Severe global hypokinesis of left ventricle. Left atrium is severely dilated. Right atrium is moderately dilated. Mild aortic regurgitation. Mild to moderate mitral regurgitation. Mild tricuspid regurgitation. Estimated systolic pulmonary pressure is 40 mmHg. Dilated inferior cava with reduced collapsibility with sniff indicates an elevated right atrial pressure of 15 mmHg. --CXR:No acute cardiopulmonary findings. Cardiomegaly. --BNP 704 --Normal TSH -- Started on metoprolol succinate 75 mg twice a day --Also started on digoxin - stopped now On IV heparin for anticoagulation -> switched to Eliquis Cardiology consulted- pt is now s/p CRYSTAL and cardioversion (09/28/[address] Valerio) switched from IV to PO amiodarone 200 mg po BID IV Lopressor as needed Monitor and replete electrolytes as needed Received IV Lasix -> switched to home Po bumex Also on Aldactone 25 mg po per day Monitor I's and O's, daily weight Pt seems euvolemic Plans for quick EP evaluation- question of repeat ablation in lue of Amiodarone - Dr. Melendez's office contacted Start Jardiance 10 mg po per day Follow up with [facility] Cardiology Sleep apnea Continue CPAP at bedtime Other chronic conditions Hypertension Hyperlipidemia Mood disorder Fibromyalgia Continue home medications as appropriate Total Time Total Time Spent Total Time Spent (In Minutes): 40 Discharge Plan Discharge Items Patient Disposition: Home - Self-Care Reason For Visit: RAPID AF Discharge Diagnosis: Afib with RVR Activity: Per Instructions section Non-emergency contact: Primary Care Provider and Industrial Chemist Call non-emergency contact if: you have any medication questions and your symptoms worsen Follow-up/Referrals: Sebastian Santiago DO [Industrial Chemist] - (Dr. Santiago's office will contact you to schedule a discharge follow-up appointment. ) Jenny Pressley MD [Primary Care Provider] - (Date & Time 10/07/2024 11:40 AM Provider Jenny Pressley MD [facility] ) Diet: Heart Healthy Addtl Attending Provider Instructions: Follow up with primary care doctor, and neuropsychology service director, including site identification specialist, Dr. Melendez. Take metoprolol succinate 75 mg twice a day. Take amiodarone 200 mg twice a day. Take Eliquis (blood thinner) 5 mg twice a day. Spironolactone was increased to 25 mg daily. Pending Studies at Discharge: No Stand-Alone Forms: My [facility], Smoking Cessation Medications and DC Order Prescriptions: New Eliquis 5 mg Tablet 5 mg PO BID Qty: 60 0RF amiodarone 200 mg Tablet 200 mg PO BIDM Qty: 60 0RF metoprolol succinate 25 mg Tablet Extended Release 24 Hr 75 mg PO BID Qty: 90 0RF spironolactone 25 mg Tablet 25 mg PO DAILY Qty: 30 0RF Jardiance 10 mg tablet 10 mg PO DAILY Qty: 30 0RF Continued potassium chloride [Klor-Con M10] 10 mEq Tablet,Er Particles/Crystals 10 meq PO QPM Rx Instructions: PER PT "IF TAKE 2 BUMETANIDE TABS, THEN TAKE 2 KLOR-CON TABS". multivitamin Tablet 1 tab PO QPM Vitamin C 1,000 mg Tablet Extended Release 1,000 mg PO QPM acetaminophen 500 mg capsule 1,000 mg PO TID PRN (Reason: Pain) Rx Instructions: Take 3 times per day to lessen pain. zinc gluconate 50 mg Tablet 50 mg PO QPM loratadine [Wal-itin] 10 mg Tablet 10 mg PO QAM Qty: 30 0RF alprazolam [Xanax] 0.5 mg Tablet 0.5 mg PO QPM Qty: 14 0RF bumetanide [Bumex] 1 mg Tablet 1 mg PO DAILY Discontinued spironolactone 25 mg Tablet 12.5 mg PO DAILY Qty: 30 0RF Discharge Orders: Discharge Order (Routine); Ordered 09/30/24 Ordered By: Jeff Spivey Admission Data Admit Date/Time: 09/26/24 16:06 Attending Provider: Jeff Spivey Admit Provider: Neo Belcher Primary Care Provider: Jenny Pressley Other Providers: Neo Belcher; Percy Ruiz; Matthew Galvan
[2024-09-30 12:20] VITALS: TEMP 97.9
[2024-09-30 15:10] VITALS: BP 122/83; PULSE 64; RESP 17; O2SAT 94
== END 2024-09-30 17:29 | disposition home or self-care (01) | DRG 291 ==
LOC: ED 13:29 → SUATTDRO 16:06 → 2S 16:06

== ENCOUNTER 2025-01-08 22:07 | Inpatient (IN) ==
--- OUTSIDE RECORDS SUMMARY | 2025-01-08 22:12 | External Medical Summary | Summary of Care ---
Author Name Unknown Organization [facility] Address [address] [place] [address] Phone [phone] Care Team Providers Care Bicycle Rental Clerk Name Role Phone Jenny Pressley MD Primary Care Provider [phone] Reason for Visit * Reason Comments eRx-Medication Refill Encounter Details Date Type Department Care Team (Late st Contact Info) Description 01/06/2025 Refill [facility] [address] [place] [address] Jenny Pressley MD [address] [facility] [place] [address] Allergies Active Allergy Reactions Criticality Noted Date Comments Atenolol Anaphylaxis High 10/03/2024 Beta Adrenergic Blockers Other (Please comment) 11/28/2021 [...] as of this encounter (statuses as of 01/07/2025) Medications Cholecalciferol 25 MCG (1000 UT) Oral Capsule Take by mouth. Ac tive Ascorbic Acid 1000 MG Oral Tablet Take by mouth. Activ e Multivitamin Adult Extra C Oral Tablet Chewable Take by mouth . Active Baclofen 10 MG Oral Tablet (Lioresal) TAKE 1 TAB BY MOUTH 2 TIMES A DAY NEEDED FOR CRAMPING OR MUSCLE SPASMS. 60 Tablet 1 07/10/20 22 Active Zinc 50 MG Oral Tablet Take 1 Tablet by mouth daily. Active BiPAP every night at bedtime. Active Spironolactone 25 MG Oral Tablet (Aldactone)Indic ations:Atrial fibrillation status post cardioversion (HCC),NICM (nonischemic cardiomyopathy) (HCC),Chronic heart failure with reduced ejection fraction and diastolic dysfunction (HCC) Take 1 Tablet by mouth in the morning. 90 Tablet 3 12/11/19 24 Active Cetirizine HCl 10 MG Oral Tablet (ZyrTEC) Take 1 Tablet by mouth in the morning. 90 Tablet 3 06/02/20 24 Active HYDROcodone-Acet aminophen 7.5-300 MG Oral Tablet Take 1 Tablet by mouth every 8 hours as needed for Pain, Severe. 60 Tablet 08/01/20 24 Active Fluticasone Propionate 50 MCG/ACT Nasal Suspension (Flonase)Indicat ions:Acute maxillary sinusitis, unspecified SPRAY 2 SPRAYS INTO EACH NOSTRIL IN THE MORNING 48 mL 3 10/02/20 24 Active Additional Information Patient not taking.Reported on 10/04/2024 Eliquis 5 MG Oral Tablet Take 1 Tablet by mouth in the morning and 1 Tablet before bedtime. 09/30/20 24 Active ALPRAZolam 0.5 MG Oral Tablet (Xanax) Take 1 Tablet by mouth at bedtime as needed for Sleep or Anxiety. 30 Tablet 10/13/20 24 Active Amiodarone HCl 200 MG Oral Tablet (Cordarone) Take 1 Tablet by mouth daily with breakfast. 30 Tablet 11 10/13/20 24 Active Diclofenac Sodium 75 MG Oral Tablet Delayed Release (Voltaren) TAKE 1 TABLET BY MOUTH DAILY IN THE MORNING AND BEFORE BEDTIME TAKE WITH FOOD.. 60 Tablet 3 10/27/19 25 Active Potassium Chloride ER 10 MEQ Oral Tablet Extended Release Take 1 Tablet by mouth in the morning. Take an extra tablet daily as needed if taking extra Bumex. 120 Tablet 3 11/01/19 25 Active Bumetanide 1 MG Oral Tablet (Bumex) Take 1 tablet by daily. Take an extra tablet by mouth as needed for weight gain, swelling, or shortness of breath. 120 Tablet 3 11/01/19 25 Active Metoprolol Succinate ER 25 MG Oral Tablet Extended Release 24 Hour (toPROL XL) Take 1 Tablet by mouth in the morning and 1 Tablet before bedtime. 180 Tablet 3 11/01/19 25 Active Montelukast Sodium 10 MG Oral Tablet (Singulair) TAKE 1 TABLET BY MOUTH EVERY DAY IN THE MORNING 90 Tablet 2 01/07/20 25 Active Montelukast Sodium 10 MG Oral Tablet (Singulair) Take 1 Tablet by mouth in the morning. 90 Tablet 3 01/18/20 24 2024 Discontinued documented as of this encounter (statuses as of 01/07/2025) Active Problems Problem Noted Date Diagnosed Date [...] as of this encounter (statuses as of 01/07/2025) Resolved Problems Problem Noted Date Diagnosed Date [...] ith chronic systolic congestive heart failure 10/31/20202023 Overview (10/31/2020): Combination code derived from problem [...] as of this encounter (statuses as of 01/07/2025) Immunizations Name Administration Dates Next Due PPD [...] Date Recorded PHQ Adult Total Score 1 10/04/2024 Hunger Vital Sign Answer Date Recorded Within the past 12 months, y ou worried that your food would run out before you got the money to buy more. Never true 10/04/20 24 Within the past 12 months, t he food you bought just didn't last and you didn't have money to get more. Never true 10/04/2024 Childcare Answer Date Recorded Do you feel overwhelmed with taking care of a child, family member or friend? No 10/04/2024 Does your family need help f inding childcare? (Household - for ages 0-17 years) Not on file 10/04/2024 Clothing Answer Date Recorded Have you been unable to get clothing when it was really needed? No 10/04/2024 Is your family able to get c lothes or diapers when needed? (Household - for ages 0-17 years) Not on file 10/04/2024 Personal Safety Answer Date Recorded Do you feel unsafe or have concerns for your saf ety? No 10/04/2024 Do you have concerns for you r family's safety? (Household - for ages 0-17 years) Not on file 10/04/2024 Utilities Answer Date Recorded Do you have trouble paying y our heating, water, or electric bill? No 10/04/2024 Is your family able to pay t he heat, water, or electric bill? (Household - for ages 0-17 years) Not on file 10/04/2024 Does your family have access to good internet? (Household - for ages 0-17 years) Not on file 10/04/2024 Employment Status Answer Date Recorded Are you unemployed or without regular income? No 10/04/2024 Does the household have a re lar source of income? (Household - for ages 0-17 years) Not on file 10/04/2024 Social Connections Answer Date Recorded How often do you feel lonely or isolated from th ose around you? Never 10/04/2024 Financial Resource Strain Answer Date R ecorded Do you have any trouble payi ng for your medications, or do you think you might in the future? No 10/04/2024 Does your family have troubl e paying for medicine? (Household - for ages 0-17 years) Not on file 10/04/2024 Transportation Needs Answer Date Record ed Do you have trouble getting a ride to medical visits or work? (Adult - for ages 18 years and over) Not on file 10/04/2024 Does your family have a hard time getting a ride to doctors visits? (Household - for ages 0-17 years) Not on file 10/04/2024 Has lack of transportation k ept you from medical appointments, meetings, work, or from getting things needed for daily living? Check all that apply. No 10/04/2024 Do you (or your family) have trouble finding or paying for a ride (transportation)? (Household - for ages 0-17 years) Not on file 10/04/2024 Housing Stability Answer Date Recorded Do you currently live in a s helter or have no steady place to sleep at night? No 10/04/2024 Do you think you are at risk of becoming homeless? (Adult - for ages 18 years and over) Not on file 10/04/2024 Does your family worry about paying for your home or becoming homeless? (Household - for ages 0-17 years) Not on file 1 12/05/2023 Are you homeless or worried that you might be in the future? No 10/04/2024 Are you (or your family) jen eless or worried that you might be in the future? (Household - for ages 0-17 years) Not on file Food Insecurity Answer Date Recorded Do you need food for this week? No 10/04/2024 Are you able to get enough f ood for your family? (Household - for ages 0-17 years) Not on file 10/04/2024 Does your family need food t his week? (Household - for ages 0-17 years) Not on file 10/04/2024 Do you always have enough fo od for your family? (Household - for ages 0-17 years) Not on file 10/04/2024 Food Insecurity Answer Date Recorded Within the past 12 months, y ou worried that your food would run out before you got the money to buy more. Never true 10/04/20 24 Within the past 12 months, t he food you bought just didn't last and you didn't have money to get more. Never true 10/04/2024 Do you need food for this week? No 10/04/2024 Comments No Sex and Gender Information Value [...] Pebbles Blackman RN documented in this encounter Miscellaneous Notes * Telephone Encounter - Carolyn Hamilton, [facility] - 01/06/2025 5:05 PM EDTSigned Prescriptions: Disp Refills Montelukast Sodium 10 MG Oral Tablet (Sing*90 Tab*2 Sig: TAKE 1 TABLET BY MOUTH EVERY DAY IN THE MORNINGAuthorizing Provider: Jenny PRESSLEY User: CAROLYN HAMILTON Electronically signed by Carolyn Hamilton [facility] at 01/06/2025 5:05 PM EDT documented in this encounter Plan of Treatment Health Maintenance Due Date Last Done Comments Pneumococcal Vaccine: 50+ Years (1 of 2 - PCV) 1973 Mammogram 1994 Cologuard 1999 Fecal Occult Blood Test 1999 Sigmoidoscopy 1999 Colonoscopy 06/24/2021 06/24/2016, 06/24/2016 Colorectal Cancer Screening 06/24/2021 Adult Wellness Visit 11/25/2023 11/25/2022 COVID-19 Vaccine ( season) 2024 Influenza Vaccine (FLU shot) (#1) 2024 GFR 10/03/2025 10/03/2024, 08/27, 01/22/2024, Additional history exists Depression Screening 10/04/2025 10/04/2024, 01/30/2015 (Declined) Albumin/Creatinine Ratio 10/03/2027 10/03/2024, 04/26 Lipid Panel 09/19/2029 09/19/2024, 12/25, 10/21/2023, Additional history exists RETIRED - COLONOSCOPY-EVERY 5 [...] on patient's age to complete this topic Meningitis B Vaccine (Bexsero/Trumemba) Aged Out No longer eligible based on [...] Power of Attor kathy? No Care Teams Bicycle Rental Clerk Relationship Specialty Start Date End Date Jenny Pressley MD PCP - General Internal Medicine 11/20/23 documented as of this encounter
--- OUTSIDE RECORDS SUMMARY | 2025-01-08 22:12 | External Medical Summary | Summary of Care ---
Author Name Unknown Organization [facility] Address [address] [place] [address] Phone [phone] Care Team Providers Care Bullet Slug Casting Machine Operator Name Role Phone Jenny Pressley MD Primary Care Provider [phone] Encounter Details Date Type Department Care Team (Late st Contact Info) Description 12/22/2024 Telephone [facility] [address] [place] [address] Jenny Pressley MD [address] [place] [address] Allergies Active Allergy Reactions Criticality Noted [...] as of this encounter (statuses as of 12/27/2024) Medications Cholecalciferol 25 MCG (1000 UT) Oral [...] bedtime. Active Spironolactone 25 MG Oral Tablet (Aldactone)Indica tions:Atrial fibrillation status post cardioversion (HCC),NICM (nonischemic cardiomyopathy) (HCC),Chronic heart failure with reduced ejection fraction and diastolic dysfunction (HCC) Take 1 Tablet by mouth in the morning. 90 Tablet 3 4 Active Montelukast Sodium 10 MG Oral Tablet (Singulair) Take 1 Tablet by mouth in the morning. 90 Tablet 3 4 Active Cetirizine HCl 10 MG Oral Tablet (ZyrTEC) Take 1 Tablet by mouth in the morning. 90 Tablet 3 4 Active HYDROcodone-Aceta minophen 7.5-300 MG Oral Tablet Take 1 Tablet by mouth every 8 hours as needed for Pain, Severe. 60 Tablet 4 Active Fluticasone Propionate 50 MCG/ACT Nasal Suspension (Flonase)Indicati ons:Acute maxillary sinusitis, unspecified SPRAY 2 SPRAYS INTO EACH NOSTRIL IN THE MORNING 48 mL 3 4 Active Additional Information Patient not taking.Reported on 10/04/2024 Eliquis 5 MG Oral Tablet Take 1 Tablet by mouth in the morning and 1 Tablet before bedtime. 4 Active ALPRAZolam 0.5 MG Oral Tablet (Xanax) Take 1 Tablet by mouth at bedtime as needed for Sleep or Anxiety. 30 Tablet 4 Active Amiodarone HCl 200 MG Oral Tablet (Cordarone) Take 1 Tablet by mouth daily with breakfast. 30 Tablet 11 4 Active Diclofenac Sodium 75 MG Oral Tablet Delayed Release (Voltaren) TAKE 1 TABLET BY MOUTH DAILY IN THE MORNING AND BEFORE BEDTIME TAKE WITH FOOD.. 60 Tablet 3 5 Active Potassium Chloride ER 10 MEQ Oral Tablet Extended Release Take 1 Tablet by mouth in the morning. Take an extra tablet daily as needed if taking extra Bumex. 120 Tablet 3 5 Active Bumetanide 1 MG Oral Tablet (Bumex) Take 1 tablet by daily. Take an extra tablet by mouth as needed for weight gain, swelling, or shortness of breath. 120 Tablet 3 5 Active Metoprolol Succinate ER 25 MG Oral Tablet Extended Release 24 Hour (toPROL XL) Take 1 Tablet by mouth in the morning and 1 Tablet before bedtime. 180 Tablet 3 5 Active documented as of this encounter (statuses as of 12/27/2024) Active Problems Problem Noted Date Diagnosed Date [...] as of this encounter (statuses as of 12/27/2024) Resolved Problems Problem Noted Date Diagnosed Date [...] excess calories 11/05/2022 11/17/2022 Diverticulitis of colon 10/07/2022 07/10/2023 Hypertensive heart disease w ith chronic systolic [...] as of this encounter (statuses as of 12/27/2024) Immunizations Name Administration Dates Next Due PPD [...] 10/04/2024 Does the household have a re gular source of income? (Household - for ages [...] Telephone Encounter - Sharon Chaudhry LPN - 12/27/2024 3:23 PM EST Submitted through [employer] * Telephone Encounter - Jenny Pressley MD - 12/22/2024 3:14 PM EST Signed Please fax order * Telephone Encounter - Alicia Bone OSA - 12/22/2024 1:16 PM EST Person calling: Anny [facility] Phone/Fax to return call: [phone] ext [phone] Reason for call(brief): need order sent to [facility] for new updated cpap supplies Pharmacy: Provider Name:Wendie Detailed message to office: need order fax to [phone] for new updated cpap supplies. Thank you documented in this encounter Plan of Treatment Upcoming Encounters Date Type Department Care Team (Late st Contact Info) Description 12/30/2024 1:30 PM EST Office Visit Otolaryngology [facility] [address] [place] [address] Tabitha Martins PA-C [address] [address] 01/03/2025 4:00 PM EDT Cardiac Studies Cardiac Studies, [facility] [address] [place] [address] 01/30/2025 12:20 PM EDT Office Visit [facility] [address] [phone] [facility] [address] [facility] [address] 04/21/2025 1:30 PM EDT Office Visit Cardiology, [facility] [address] [place] [address] Licha Ceballos CRNP [address] [facility] [place] [address] 07/03/2025 3:30 PM EDT Office Visit Cardiology, [facility] [address] [place] [address] Sebastian Santiago DO [address] [place] [address] Health Maintenance Due Date Last Done Comments [...] of this encounter Visit Diagnoses Diagnosis WILL on CPAP- Primary Obstructive sleep apnea (adult) (pediatric) documented in this encounter Advance Directives * [...] Power of Attor kathy? No Care Teams Bullet Slug Casting Machine Operator Relationship Specialty Start Date End Date Jenny Pressley MD PCP - General Internal Medicine 11/20/23 documented as of this encounter
--- OUTSIDE RECORDS SUMMARY | 2025-01-08 22:12 | External Medical Summary | Summary of Care ---
Author Name Unknown Organization [facility] Address [address] [place] [address] Phone [phone] Care Team Providers Care Motor And Chassis Inspector Name Role Phone Jenny Pressley MD Primary Care Provider [phone] Reason for Referral * Ancillary Services (Within 10 days (routine)) - Authorized Specialty Diagnoses / Procedures Referred By Megan stanford Referred To Contact Audiology Diagnoses Ear problem, bilateral Jenny Pressley MD [address] [address] Phone: tel: fax: Referral ID Status Reason Start Date Expiration Date Visits Requested Visits Authorized [id number] Authorized Ancillary Services Required 12/29/2024 999 999 Question Answer Referral Priority Within 10 days (routine) Where should this appointment be scheduled? [facility] Reason for Referral: Tinnitus (ringing in ear) Reason for Visit * Reason Onset Date Comments Referral 12/28/2024 Encounter Details Date Type Department Care Team (Late st Contact Info) Description [facility] [address] [address] Jenny Pressley MD [address] [address] Referral Allergies Active Allergy Reactions Criticality Noted Date [...] as of this encounter (statuses as of 12/29/2024) Medications Cholecalciferol 25 MCG (1000 UT) Oral [...] NOSTRIL IN THE MORNING 48 mL 3 12/08/202 4 Active Additional Information Patient not taking.Reported [...] as of this encounter (statuses as of 12/29/2024) Active Problems Problem Noted Date Diagnosed Date [...] shoulder History of diffuse large B-cell lymphoma 09/15/2 022 Status post ablation of atrial fibrillation [...] as of this encounter (statuses as of 12/29/2024) Resolved Problems Problem Noted Date Diagnosed Date [...] as of this encounter (statuses as of 12/29/2024) Immunizations Name Administration Dates Next Due PPD [...] Telephone Encounter - Karlie Hill OSA - 12/29/2024 12:50 PM EST Faxed to number given below. 12/29/2024 * Addendum Note - Jenny Pressley MD - 12/29/2024 11:02 AM ESTAddended by: JENNY PRESSLEY on: 12/29/2024 11:02 AM Modules accepted: Orders * Telephone Encounter - Jenny Pressley MD - 12/29/2024 11:02 AM EST Signed referral * Telephone Encounter - Jenny Pressley MD - 12/29/2024 9:11 AM EST Audiology is for hearing Is she requesting referral for ear pain, drainage ?? * Telephone Encounter - Jarett Arcos Ob/OrWILL - 12/28/2024 3:05 PM EST New referral request: Our records indicate that you have an upcoming appointment and a referral is required for this visit. Please review pended referral for the following: Patient Name: Ramona Stringer Patient Primary care provider: Jenny Pressley MD Name of specialist: Karlie Paredes Type of specialist: ENT Location of specialist: [facility] and audiology Reason for visit: On going ear problems / drainage Date of visit: N/A documented in this encounter Plan of Treatment Scheduled Referrals Name Type Priority Associated Diagnoses Orde r Schedule AUDIOLOGY REFERRAL OP Referral Within 10 days (routine) Ear problem, bilateral Ordered: 12/29/2024 Health Maintenance Due Date Last Done Comments [...] as of this encounter Visit Diagnoses Diagnosis Ear problem, bilateral- Primary documented in this encounter Advance Directives [...] Power of Attor kathy? No Care Teams Motor And Chassis Inspector Relationship Specialty Start Date End Date Jenny Pressley MD PCP - General Internal Medicine 11/20/23 documented as of this encounter
--- OUTSIDE RECORDS SUMMARY | 2025-01-08 22:12 | External Medical Summary | Summary of Care ---
Author Name Unknown Organization [facility] Address [address] [place] [address] Phone [phone] Care Team Providers Care Sales Account Director Name Role Phone Jenny Pressley MD Primary Care Provider [phone] Reason for Referral * Evaluate & Treat - Unlimited Visits (Within 10 days (routine)) - Authorized Specialty Diagnoses / Procedures Referred By Contac t Referred To Contact Pharmacist / Pharmacy Diagnoses Chronic heart failure with reduced ejection fraction and diastolic dysfunction (HCC) Sebastian Santiago, [address] [place] [address] Phone: tel: fax: Referral ID Status Reason Start Date Expiration Date Visits Requested Visits Authorized [id number] Authorized Specialty Services Required 4 04/02/2025 99 99 Question Answer Referral Priority Within 10 days (routine) Where should this appointment be scheduled? [facility] Referring Provider Role: Specialist Specialty: Cardio Reason for Referral: HF Comments Pharmacist Medication Therapy Management: Minimum frequency patient should be seen in person for medication management: as appropriate per clinical condition and patient status By my signature, I understand that my patient Ramona Stringer will have her medication therapy managed by the [facility] ([facility]) per established policies, procedures, and protocols. I also certify that this referral may serve as an initiation of service for the management of drug therapy in the above noted patient. [facility] providers will be responsible for scheduling patient visits, obtaining appropriate laboratory studies, and adjusting medication management therapy per patient's need, in addition to those roles spelled out in the clinic policy, procedures, and drug management protocols. I understand that the service provided by the [facility] is voluntary and have informed patient that they can refuse the service at their discretion. I am aware that the [facility] will provide me with a copy of the patient encounter via my iwoca InIAMINTOITsket. I authorize the [facility] to carry out these activities on my behalf. I consider this program to be a necessary part of the patient's medical care. Shanell Slade RN Reason for Visit * Reason Onset Date Comments Referral 10/04/2024 Encounter Details Date Type Department Care Team (Late st Contact Info) Description 10/04/2024 Telephone [facility] [address] [place] [address] Shanell Slade RN [address] [place] [address] Referral Allergies Active Allergy Reactions Criticality Noted [...] as of this encounter (statuses as of 01/04/2025) Medications Cholecalciferol 25 MCG (1000 UT) Oral [...] and 1 Tablet before bedtime. 4 Active documented as of this encounter (statuses as of 01/04/2025) Active Problems Problem Noted Date Diagnosed Date [...] as of this encounter (statuses as of 01/04/2025) Resolved Problems Problem Noted Date Diagnosed Date [...] as of this encounter (statuses as of 01/04/2025) Immunizations Name Administration Dates Next Due PPD [...] encounter Miscellaneous Notes * Telephone Encounter - Ken Vázquez OSA - 10/05/2024 3:40 PM EST Patient has been setup for an appt with Dr. Melendez. There is multiple TE's for this patient, concerning this appt. Thank you. Pt can be seen 10/13/2024 at 12:15 pm in [facility] with Dr Melendez. Pt aware and states understanding. MAGALIS Valdez * Telephone Encounter - Sebastian Santiago DO - 10/05/2024 3:08 PM EST Hospital records reviewed. Discharged from hospital September 30, 2024. Amiodarone added after transesophageal echo guided cardioversion to maintain sinus rhythm. Prior intolerance to amiodarone noted. Plan for electrophysiology consultation to consider ablation and subsequent discontinuation of amiodarone in the near future. Please facilitate scheduling electrophysiology evaluation. * Telephone Encounter - Shanell Slade RN - 10/04/2024 2:37 PM EST Images from the original note were not included. Recently d/c from [facility] after AFIB w/ RVR s/p CRYSTAL & CV. Started on Amiodarone, Metoprolol increased to 75 mg daily and Lizettediance ( pt not taking) Listed Metoprolol allergy as per patient, but currently taking as prescribed. Medication also administered at hospital during recent admission. Pt with complaint of tremors, of Sores on her tongue and on her lips. Possibly attributing to Amiodarone as she has experienced tremors and severe hair loss in the past as per patient from Amiodarone. Patient prescribed Jardiance 10 mg daily but is also not taking medication due to " causing UTI andyeast infections" she wants to know more about why she should be on medication from her lift team technician. Education provided but patient waiting till she follows up with cardiology. MTM referral placed for approval for medication management. Awaiting follow-up with EP to be scheduled. Cardiology follow-up w/ Dr. Santiago not till 12/06/24 ECHO from [facility] 09/27/24: documented in this encounter Plan of Treatment Scheduled Referrals Name Type Priority Associated Diagnoses Orde r Schedule PHARMACIST MEDS THERAPY MGMT REFERRAL OP Referral Within 10 days (routine) Chronic heart failure with reduced ejection fraction and diastolic dysfunction (HCC) Ordered: 10/05/2024 Health Maintenance Due Date Last Done Comments [...] of this encounter Visit Diagnoses Diagnosis Chronic heart failure with reduced ejection fraction and diastolic dysfunction (HCC)- Primary documented in this encounter Advance [...] patient have Health Care Power of Attor kahty? No * Full Code Date Activated Date [...] Power of Attor kathy? No Care Teams Sales Account Director Relationship Specialty Start Date End Date Jenny Pressley MD PCP - General Internal Medicine 11/20/23 documented as of this encounter
--- OUTSIDE RECORDS SUMMARY | 2025-01-08 22:12 | External Medical Summary | Summary of Care ---
Author Name Unknown Organization [facility] Address [address] [place] [address] Phone [phone] Care Team Providers Care Pattern Finisher Name Role Phone Jenny Pressley MD Primary Care Provider [phone] Reason for Visit * Reason Onset Date Comments Referral 12/28/2024 Encounter Details Date Type Department Care Team (Late st Contact Info) Description 12/28/2024 Telephone [facility] [address] [facility] [place] [address] Jenny Pressley MD [address] [place] [address] Referral Allergies Active Allergy Reactions Criticality [...] ?? * Telephone Encounter - Jarett Arcos E - No Ob/Or, WILL - 12/28/2024 3:05 PM EST New referral request: Our records indicate that you have an upcoming appointment and a referral is required for this visit. Please review pended referral for the following: Patient Name: Ramona Stringer Patient Primary care provider: Jenny Pressley MD Name of specialist: Karlie Paredes Type of specialist: ENT Location of specialist: [facility] and audiology Reason for visit: On [...] Power of Attor kathy? No Care Teams Pattern Finisher Relationship Specialty Start Date End Date Jenny Pressley MD PCP - General Internal Medicine 11/20/23 documented as of this encounter
--- OUTSIDE RECORDS SUMMARY | 2025-01-08 22:12 | External Medical Summary | Summary of Care ---
Author Name Unknown Organization [facility] Address [address] [place] [address] Phone [phone] Care Team Providers Care Water Rights Specialist Name Role Phone Jenny Pressley MD Primary Care Provider [phone] Reason for Referral * Ancillary Services (Within 10 days (routine)) - Authorized Specialty Diagnoses / Procedures Referred By Megan stanford Referred To Contact Audiology Diagnoses Ear problem, bilateral Jenny Pressley MD [address] [address] Phone: tel: fax: Referral ID Status Reason Start Date Expiration Date Visits Requested Visits Authorized [id number] Authorized Ancillary Services Required 12/29/2024 999 999 Question Answer Referral Priority Within 10 days (routine) Where should this appointment be scheduled? [facility] Reason for Referral: Tinnitus (ringing in ear) Reason for Visit * Reason Onset Date Comments Referral 12/28/2024 Encounter Details Date Type Department Care Team (Late st Contact Info) Description [facility] [address] [address] Jenny Pressley [...] Type of specialist: ENT Location of specialist: [facility] and audiology Reason for visit: On going [...] Health Care Power of Attor kahty? No Care Teams Water Rights Specialist Relationship Specialty Start Date End Date Jenny Pressley MD PCP - General Internal Medicine 11/20/23 documented as of this encounter
--- OUTSIDE RECORDS SUMMARY | 2025-01-08 22:13 | External Medical Summary | Summary of Care ---
Author Name Unknown Organization [facility] Address [address] [place] [address] Phone [phone] Care Team Providers Care Chief Sustainability Officer Name Role Phone Jenny Pressley MD Primary Care Provider [phone] Reason for Visit * Reason Comments eRx-Medication Refill Encounter Details Date Type Department Care Team (Late st Contact Info) Description 10/26/2024 [facility] [address] [place] [address] Jenny Pressley MD [address] [facility] [place] [address] Allergies Active Allergy Reactions Criticality Noted [...] as of this encounter (statuses as of 10/27/2024) Medications Cholecalciferol 25 MCG (1000 UT) Oral [...] morning. 90 Tablet 3 12/11/19 24 Active Montelukast Sodium 10 MG Oral Tablet (Singulair) Take 1 Tablet by mouth in the morning. 90 Tablet 3 01/18/20 24 Active Bumetanide 1 MG Oral Tablet (Bumex) Take 1 Tablet by mouth in the morning and 1 Tablet before bedtime. 180 Tablet 2 03/24/20 24 Active Additional Information Patient taking differently:1 mg OralDaily(AM), Reported on 10/13/2024 Potassium Chloride ER 10 MEQ Oral Tablet Extended Release Take 1 Tablet by mouth in the morning. 90 Tablet 3 03/24/20 24 Active Cetirizine HCl 10 MG Oral [...] 1 Tablet before bedtime. 09/30/20 24 Active Empagliflozin 10 MG Oral Tablet (Jardiance) Take 1 Tablet by mouth in the morning. 09/30/20 24 Active ALPRAZolam 0.5 MG Oral Tablet (Xanax) Take 1 Tablet by mouth at bedtime as needed for Sleep or Anxiety. 30 Tablet 10/13/20 24 Active Amiodarone HCl 200 MG Oral Tablet (Cordarone) Take 1 Tablet by mouth daily with breakfast. 30 Tablet 11 10/13/20 24 Active Metoprolol Succinate ER 25 MG Oral Tablet Extended Release 24 Hour (toPROL XL) Take 2 Tablets by mouth in the morning and 2 Tablets before bedtime. 180 Tablet 3 10/13/20 24 Active Diclofenac Sodium 75 MG Oral Tablet Delayed Release (Voltaren) TAKE 1 TABLET BY MOUTH DAILY IN THE MORNING AND BEFORE BEDTIME TAKE WITH FOOD.. 60 Tablet 3 10/27/19 25 Active Diclofenac Sodium 75 MG Oral Tablet Delayed Release (Voltaren) TAKE 1 TABLET BY MOUTH DAILY IN THE MORNING AND BEFORE BEDTIME TAKE WITH FOOD.. 60 Tablet 3 06/08/20 24 2024 Discontinued documented as of this encounter (statuses as of 10/27/2024) Active Problems Problem Noted Date Diagnosed Date [...] as of this encounter (statuses as of 10/27/2024) Resolved Problems Problem Noted Date Diagnosed Date [...] as of this encounter (statuses as of 10/27/2024) Immunizations Name Administration Dates Next Due PPD [...] 10/04/2024 Transportation Needs Answer Date Record ed READ ONLY Do you have troubl e getting a ride to medical visits or work? Never True 10/04/2024 Does your family have a hard [...] place to sleep at night? No 10/04/2024 READ ONLY Do you think you a re at risk of becoming homeless? No 10/04/2024 Does your family worry about paying [...] ages 0-17 years) Not on file 10/04/2024 Comments No Sex and Gender Information [...] Telephone Encounter - Jenny Pressley MD - 10/27/2024 2:25 PM ESTSigned Prescriptions: Disp Refills Diclofenac Sodium 75 MG Oral Tablet Delaye*60 Tab*3 Sig: TAKE 1 TABLET BY MOUTH DAILY IN THE MORNING AND BEFORE BEDTIME TAKE WITH FOOD.. Authorizing Provider: JENNY PRESSLEY * Telephone Encounter - Pineda Guzman LPN - 10/27/2024 1:11 PM ESTPending Prescriptions: Disp Refills Diclofenac Sodium 75 MG Oral Tablet Delaye*60 Tab*3 Sig: TAKE 1TABLET BY MOUTH DAILY IN THE MORNING AND BEFORE BEDTIME TAKE WITH FOOD.. documented in this encounter Plan of Treatment Upcoming Encounters Date Type Department Care Team (Late st Contact Info) Description 11/01/2024 1:00 PM EST Telemedicine Cardiology, [facility] [address] [facility] [address] [address] [facility] Cardiology [facility] [address] [place] [address] 11/25/2024 1:00 PM EST Cardiac Studies Cardiac Studies, [facility] [address] [facility] [address] [place] [address] 12/06/2024 2:30 PM EST Office Visit Cardiology, [facility] [address] [facility] [address] [address] Sebastian Santiago, [address] [place] [address] 01/30/2025 12:20 PM EDT Office Visit [facility] [address] [facility] [address] [phone] Jenny Pressley MD [address] [facility] [place] [address] 04/21/2025 1:30 PM EDT Office Visit Cardiology, [facility] [address] [facility] [address] [place] [address] Licha Ceballos CRNP [address] [place], [place] [address] [address] Health Maintenance Due Date Last Done Comments [...] 01/30/2015 (Declined) Albumin/Creatinine Ratio 10/03/2027 10/03/2024, 04/26 Diabetes Screening 10/03/2027 10/03/2024, 1 11/19/2023, 01/22/2024, Additional history exists Lipid Panel 09/19/2029 09/19/2024, 12/25, 10/21/2023, Additional [...] Power of Attor kathy? No Care Teams Chief Sustainability Officer Relationship Specialty Start Date End Date Jenny Pressley MD PCP - General Internal Medicine 11/20/23 documented as of this encounter
--- OUTSIDE RECORDS SUMMARY | 2025-01-08 22:13 | External Medical Summary | Summary of Care ---
Author Name Unknown Organization [facility] Address [address] [place] [address] Phone [phone] Care Team Providers Care Shot Dropper Name Role Phone Jenny Pressley MD Primary Care Provider [phone] Reason for Visit * Reason Onset Date Comments Advice 10/08/2024 Encounter Details Date Type Department Care Team (Late st Contact Info) Description 10/08/2024 Telephone Cardiology, [facility] [address] [address] Gayle Marx PA-C [address] [place] [address] Advice Allergies Active Allergy Reactions Criticality Noted [...] as of this encounter (statuses as of 10/14/2024) Medications Cholecalciferol 25 MCG (1000 UT) Oral Capsule Take by mouth. Ac tive Ascorbic Acid 1000 MG Oral Tablet Take by mouth. Activ e Multivitamin Adult Extra C Oral Tablet Chewable Take by mouth . Active Baclofen 10 MG Oral Tablet (Lioresal) TAKE 1 TAB BY MOUTH 2 TIMES A DAY NEEDED FOR CRAMPING OR MUSCLE SPASMS. 60 Tablet 1 022 Active Zinc 50 MG Oral Tablet Take 1 Tablet by mouth daily. Active BiPAP every night at bedtime. Active Spironolactone 25 MG Oral Tablet (Aldactone)Indic ations:Atrial fibrillation status post cardioversion (HCC),NICM (nonischemic cardiomyopathy) (HCC),Chronic heart failure with reduced ejection fraction and diastolic dysfunction (HCC) Take 1 Tablet by mouth in the morning. 90 Tablet 3 024 Active Montelukast Sodium 10 MG Oral Tablet (Singulair) Take 1 Tablet by mouth in the morning. 90 Tablet 3 024 Active Bumetanide 1 MG Oral Tablet (Bumex) Take 1 Tablet by mouth in the morning and 1 Tablet before bedtime. 180 Tablet 2 024 Active Additional Information Patient taking differently:1 mg OralDaily(AM), Reported on 10/13/2024 Potassium Chloride ER 10 MEQ Oral Tablet Extended Release Take 1 Tablet by mouth in the morning. 90 Tablet 3 024 Active Cetirizine HCl 10 MG Oral Tablet (ZyrTEC) Take 1 Tablet by mouth in the morning. 90 Tablet 3 024 Active Diclofenac Sodium 75 MG Oral Tablet Delayed Release (Voltaren) TAKE 1 TABLET BY MOUTH DAILY IN THE MORNING AND BEFORE BEDTIME TAKE WITH FOOD.. 60 Tablet 3 024 Active HYDROcodone-Acet aminophen 7.5-300 MG Oral Tablet Take 1 Tablet by mouth every 8 hours as needed for Pain, Severe. 60 Tablet 024 Active Fluticasone Propionate 50 MCG/ACT Nasal Suspension (Flonase)Indicat ions:Acute maxillary sinusitis, unspecified SPRAY 2 SPRAYS INTO EACH NOSTRIL IN THE MORNING 48 mL 3 Active Additional Information Patient not taking.Reported on 10/04/2024 Eliquis 5 MG Oral Tablet Take 1 Tablet by mouth in the morning and 1 Tablet before bedtime. Active Empagliflozin 10 MG Oral Tablet (Jardiance) Take 1 Tablet by mouth in the morning. Active ALPRAZolam 0.5 MG Oral Tablet (Xanax) Take 1 Tablet by mouth at bedtime as needed for Sleep or Anxiety. 2023 Discontinued(R efill) Amiodarone HCl 200 MG Oral Tablet (Cordarone) Take 1 Tablet by mouth 2 times a day with morning and evening meals. 2023 Discontinued Metoprolol Succinate ER 25 MG Oral Tablet Extended Release 24 Hour (toPROL XL) Take 3 Tablets by mouth in the morning and 3 Tablets before bedtime. 2023 Discontinued documented as of this encounter (statuses as of 10/14/2024) Active Problems Problem Noted Date Diagnosed Date [...] as of this encounter (statuses as of 10/14/2024) Resolved Problems Problem Noted Date Diagnosed Date [...] as of this encounter (statuses as of 10/14/2024) Immunizations Name Administration Dates Next Due PPD [...] of Assessment Author No 10/21/2023 12:09 AM EST Pebbles Polk RN * Are you blind or do [...] encounter Miscellaneous Notes * Telephone Encounter - Gayle Marx PA-C - 10/14/2024 12:32 PM EST Noted. She was recently evaluated in office with Dr. Melendez and meds adjusted * Telephone Encounter - Bhupendra Kovacs LPN - 10/10/2024 11:28 AM EST Patient was advised to go to ED per Dr. Koch on 10/08/24 per separate encounter. * Telephone Encounter - Karlie Clarke OSA - 10/08/2024 10:28 AM EST Person calling: Patient Relationship to patient: Patient Number to return call: [phone] Reason for call: advice Pharmacy: N/A Provider Name: Gayle Marx PA-C Last Office Visit: 05/25/2024 Detailed message to office: Patient calling to state that she believes she is having an adverse reaction to one or two of her new medications. Complaints of SOB & issues sleeping. Medications raising concern for her are Amiodarone HCl 200 MG Oral Tablet (Cordarone) & Metoprolol Succinate ER25 MG Oral Tablet Extended Release 24 Hour (toPROL XL). Patient is afraid to continue taking medication due to the SOB. Called clam shovel operator, on-call (Dr. Koch) was paged. Patient aware. documented in this encounter Plan of Treatment Upcoming Encounters Date Type Department Care Team (Late st Contact Info) Description 11/01/2024 1:00 PM EST Telemedicine Cardiology, [facility] 132 [facility] [place] [address] [facility] Cardiology [facility] 132 [facility] [place] [address] 11/25/2024 1:00 PM EST Cardiac Studies Cardiac Studies, [facility] [address] [place] [address] 12/06/2024 2:30 PM EST Office Visit Cardiology, [facility] [address] [place] [address] Sebastian Santiago, DO [address] [place] [address] 01/30/2025 12:20 PM EDT [facility] [address] [phone] Jenny Pressley MD [address] [address] 04/21/2025 1:30 PM EDT Office Visit Cardiology, [facility] [address] [facility] [place] [address] Licha Ceballos CRNP [address] [place] [address] [place] [address] Health Maintenance Due Date Last Done Comments Pneumococcal Vaccine: 65+ Years (1 of 2 - PCV) 1974 [...] Power of Attor kathy? No Care Teams Shot Dropper Relationship Specialty Start Date End Date Jenny Pressley MD PCP - General Internal Medicine 11/20/23 documented as of this encounter
--- OUTSIDE RECORDS SUMMARY | 2025-01-08 22:13 | External Medical Summary | Summary of Care ---
Author Name Unknown Organization [facility] Address [address] [place] [address] Phone [phone] Care Team Providers Care Educational Technology Coordinator Name Role Phone Jenny Pressley MD Primary Care Provider [phone] Encounter Details Date Type Department Care Team (Late st Contact Info) Description 11/08/2024 Population Health External Data Unspecified Department Allergies Active Allergy Reactions Criticality Noted Date [...] as of this encounter (statuses as of 11/09/2024) Medications Cholecalciferol 25 MCG (1000 UT) Oral [...] as of this encounter (statuses as of 11/09/2024) Active Problems Problem Noted Date Diagnosed Date [...] as of this encounter (statuses as of 11/09/2024) Resolved Problems Problem Noted Date Diagnosed Date [...] as of this encounter (statuses as of 11/09/2024) Immunizations Name Administration Dates Next Due PPD [...] No 10/04/2024 Does the household have a [facility] source of income? (Household - for ages [...] Studies, [facility] [address] [place] [address] 12/06/2024 2:30 PM EST Office Visit Cardiology, [facility] [address] [place] [address] Sebastian Santiago DO 132 [facility] [place] [address] 01/30/2025 12:20 PM EDT Office Visit [facility] [address] [facility] [place] [place] [phone] Jenny Pressley MD [address] [facility] [place] [address] 04/21/2025 1:30 PM EDT Office Visit Cardiology, [facility] [address] [place] [address] Licha Ceballos CRNP [address] [place] [address] [place] [phone] Health Maintenance Due Date Last Done Comments [...] Power of Attor kathy? No Care Teams Educational Technology Coordinator Relationship Specialty Start Date End Date Jenny Pressley MD PCP - General Internal Medicine 11/20/23 documented as of this encounter
--- OUTSIDE RECORDS SUMMARY | 2025-01-08 22:13 | External Medical Summary | Summary of Care ---
Author Name Unknown Organization [facility] Address [address] [place] [address] Phone [phone] Care Team Providers Care Road Traffic Controller Name Role Phone Jenny Pressley MD Primary Care Provider [phone] Reason for Visit * Reason Comments Congestive Heart Failure * Evaluate & Treat - Unlimited Visits (Within 10 days (routine)) - Authorized Specialty Diagnoses / Procedures Referred By Contac t Referred To Contact Pharmacist / Pharmacy Diagnoses Chronic heart failure with reduced ejection fraction and diastolic dysfunction (HCC) Sebastian Santiago DO 132 [facility] [place] [address] Phone: tel: fax: Referral ID Status Reason Start Date Expiration Date Visits Requested Visits Authorized [id number] Authorized Specialty Services Required 4 04/02/2025 99 99 Encounter Details Date Type Department Care Team (Late st Contact Info) Description 11/01/2024 1:00 PM EST Telemedicine Cardiology, [facility] [address] [facility] [place] [address] [facility] Cardiology [facility] [address] [facility] [place] [address] Cardiomyopathy, unspecified type (HCC)* Allergies Active Allergy Reactions Criticality Noted [...] as of this encounter (statuses as of 11/01/2024) Medications Cholecalciferol 25 MCG (1000 UT) Oral [...] the morning. 90 Tablet 3 024 Active HYDROcodone-Acet aminophen 7.5-300 MG Oral Tablet Take 1 Tablet by mouth every 8 hours as needed for Pain, Severe. 60 Tablet 024 Active Fluticasone Propionate 50 MCG/ACT Nasal Suspension (Flonase)Indicat ions:Acute maxillary sinusitis, unspecified SPRAY 2 SPRAYS INTO EACH NOSTRIL IN THE MORNING 48 mL 3 024 Active Additional Information Patient not taking.Reported on 10/04/2024 Eliquis 5 MG Oral Tablet Take 1 Tablet by mouth in the morning and 1 Tablet before bedtime. Active ALPRAZolam 0.5 MG Oral Tablet (Xanax) Take 1 Tablet by mouth at bedtime as needed for Sleep or Anxiety. 30 Tablet Active Amiodarone HCl 200 MG Oral Tablet (Cordarone) Take 1 Tablet by mouth daily with breakfast. 30 Tablet 11 Active Diclofenac Sodium 75 MG Oral Tablet Delayed Release (Voltaren) TAKE 1 TABLET BY MOUTH DAILY IN THE MORNING AND BEFORE BEDTIME TAKE WITH FOOD.. 60 Tablet 3 Active Potassium Chloride ER 10 MEQ Oral Tablet Extended Release Take 1 Tablet by mouth in the morning. Take an extra tablet daily as needed if taking extra Bumex. 120 Tablet 3 Active Bumetanide 1 MG Oral Tablet (Bumex) Take 1 tablet by daily. Take an extra tablet by mouth as needed for weight gain, swelling, or shortness of breath. 120 Tablet 3 Active Metoprolol Succinate ER 25 MG Oral Tablet Extended Release 24 Hour (toPROL XL) Take 1 Tablet by mouth in the morning and 1 Tablet before bedtime. 180 Tablet 3 Active Bumetanide 1 MG Oral Tablet (Bumex) Take 1 Tablet by mouth in the morning and 1 Tablet before bedtime. 180 Tablet 2 024 2024 Discontinued(R efill) Potassium Chloride ER 10 MEQ Oral Tablet Extended Release Take 1 Tablet by mouth in the morning. 90 Tablet 3 024 2024 Discontinued Empagliflozin 10 MG Oral Tablet (Jardiance) Take 1 Tablet by mouth in the morning. 024 2024 Discontinued(P atient preference/dis continuation) Metoprolol Succinate ER 25 MG Oral Tablet Extended Release 24 Hour (toPROL XL) Take 2 Tablets by mouth in the morning and 2 Tablets before bedtime. 180 Tablet 3 024 2024 Discontinued documented as of this encounter (statuses as of 11/01/2024) Active Problems Problem Noted Date Diagnosed Date [...] as of this encounter (statuses as of 11/01/2024) Resolved Problems Problem Noted Date Diagnosed Date [...] as of this encounter (statuses as of 11/01/2024) Immunizations Name Administration Dates Next Due PPD [...] Pebbles Blackman RN documented in this encounter Progress Notes * Chanel Larkin, [facility] ED - 11/01/2024 2:47 PM EST Images from the original note were not included. Medication Therapy Disease Management - Heart Failure History of Presenting Illness After connecting to the patient via telephone, the patient was identified by name and date of . Patient was then informed that this was a telephone call only visit. The patient agreed to participate. Visit Disposition: Routine follow-up Total call duration was 20 minutes. Ramona Stringer, identified by name and date of , is a 68 year old female presents to the Heart Failure [facility] Clinic for initial visit. Chief Complaint Patient presents with Congestive Heart Failure History HPI Reviewed [facility] cardiology role with patient. Completed a medication reconciliation. Reports she is only taking Metoprolol Er 25 mg BID rather than 50 mg BID due to low BP and HR. Medications list updated. Also only taking Bumex once daily with an extra tablet in afternoon as needed. Med list updated.She is not taking jardiance, removed from medication list Patient has a long hx of medication allergies and intolerances. She reported angioedema in the pastwith Lisinopril. Therefore, she is not currently on GO/ARB/ARNI. Patient reports she has history of UTI in the past. Reports she has not had any recently. Jardiancewas prescribed by cardiology but patient refuses to take. She is worried about side effects of UTI/renal impairment and doesn't want to take more medications. I did try to educate pt that because shedoes not have diabetes she is very low risk for these side effects, but she still declined. I noticed pt is taking NSAID (Diclofenac) per medication list. Pt states only taking rarely. Discussed need to avoid NSAIDs in CHF due to increase risk of edema. She has an echo coming up at the end of the month Current Medications Diuretic: Bumex 1 tablet BID; Potassium 10 mEq daily--Pt reports taking 1 tab bumex daily with extra PRN Beta-Juliette: Metoprool Er 25 mg-Take 50 mg BID---Pt reports taking 25 mg BID ACEi/ARB/ARNI: Hx of angioedema with Lisinopril (not hospitalized per pt) MRA: Spironolactone 25 mg QD SGLT2i: Jardiance 10 mg QD---Not taking Other: Amiodarone 200 mg QD; Eliquis 5 mg BID Review of Systems Weight gain of 2 - 3 pounds over 24 hours? No Weight gain of 5 pounds over 3 days? No Symptoms: no dyspnea at rest, dyspnea with exertion, edema Problem List Reviewed and updated in the EHR during the visit Objective Current Vitals There were no vitals filed for this visit. Past Vitals BP Readings from Last 3 Encounters: 10/13/24 108/64 10/03/24 110/80 08/01/24 132/80 Pulse Readings from Last 3 Encounters: 10/13/24 64 10/03/24 78 08/01/24 68 Wt Readings from Last 3 Encounters: 10/13/24 119.7 kg (264 lb) 10/03/24 117.5 kg (259 lb) 08/01/24 118.8 kg (261 lb 14.4 oz) Patient Reported Vitals Does have scale at home: 262-264 lbs (weight up) Previously down to 259 lbs Last EF LEFT VENTRICULAR EJECTION FRACTION (%) Date Value 10/21/2023 20 Labs HEMOGLOBIN A1C - [facility] Date/Time Value Ref Range Status 10/20/2023 05:11 PM 5.4 4.0 - 5.6 % Final Comment: The use of HbA1c to monitor glycemic status is based on normal hemoglobin and HbA composition. Thistest should not be used in patients with abnormal hemoglobin that affects the half life of the red blood cell or the in vivo glycation rates. 07/10/2022 11:41 AM 5.3 4.0 - 5.6 % Final Comment: The use of HbA1c to monitor glycemic status is based on normal hemoglobin and HbA composition. Thistest should not be used in patients with abnormal hemoglobin that affects the half life of the red blood cell or the in vivo glycation rates. Recent Labs Units 10/03/24 1245 09/19/24 1010 01/22/24 1028 BUN - [facility] mg/dL 26* 15 25* CREATININE - [facility] mg/dL 0.9 0.8 0.9 ESTIMATED GLOMERULAR FILTRATION RATE - [facility] mL/min 66 86 68 Serum creatinine: 0.9 mg/dL 10/03/24 1245 Estimated creatinine clearance: 77.8 mL/min Recent Labs Units 10/03/24 1245 09/19/24 1010 01/22/24 1028 POTASSIUM - [facility] mmol/L 4.3 4.3 4.5 Recent Labs Units 10/03/24 1245 09/19/24 1010 01/22/24 1028 CO2 - [facility] mmol/L 25 26 30 Results for orders placed or performed during the hospital encounter of 10/20/23 LIPID PANEL WITHOUT DIRECT LDL Result Value Ref Range Triglycerides 106 <=174 mg/dL Cholesterol 173 <200 mg/dL HDL Cholesterol 45 (L) >49 mg/dL Non-HDL Cholesterol 128 <=159 mg/dL LDL Cholesterol 107 <=129 mg/dL Results for orders placed or performed in visit on 08/26/19 LIPID PANEL Result Value Ref Range HOURS FASTING >8 HOURS hours Triglycerides 57 0 - 174 mg/dL Cholesterol 196 <200 mg/dL HDL Cholesterol 71 >49 mg/dL NON-HDL CHOLESTEROL 125 0 - 159 mg/dL LDL Cholesterol 114 0 - 129 mg/dL Results for orders placed or performed in visit on 05/11/14 LIPID PANEL Result Value Ref Range LDL Cholesterol 127 mg/dL Cholesterol-HDL Ratio 4.06 PATIENT PREP-OUTSIDE LAB Fasting Cholesterol 191 <=200 mg/dL Triglycerides 85 <=150 mg/dL HDL Cholesterol 47 36 - 80 mg/dL Results for orders placed or performed in visit on 09/19/24 LIPID PANEL WITH DIRECT LDL IF TG IS HIGH Result Value Ref Range Triglycerides 177 (H) <=174 mg/dL Cholesterol 229 (H) <200 mg/dL HDL Cholesterol 50 >49 mg/dL Non-HDL Cholesterol 179 (H) <=159 mg/dL LDL Cholesterol 144 (H) <=129 mg/dL Results for orders placed or performed in visit on 01/22/24 LIPID PANEL WITH DIRECT LDL IF TG IS HIGH Result Value Ref Range Triglycerides 163 <=174 mg/dL Cholesterol 236 (H) <200 mg/dL HDL Cholesterol 52 >49 mg/dL Non-HDL Cholesterol 184 (H) <=159 mg/dL LDL Cholesterol 151 (H) <=129 mg/dL Results for orders placed or performed in visit on 05/18/23 LIPID PANEL WITH DIRECT LDL IF TG IS HIGH Result Value Ref Range Triglycerides 141 <=174 mg/dL Cholesterol 227 (H) <200 mg/dL HDL Cholesterol 63 >49 mg/dL Non-HDL Cholesterol 164 (H) <=159 mg/dL LDL Cholesterol 136 (H) <=129 mg/dL Assessment/Plan Ramona presents to clinic today and the role of the [facility] pharmacist was introduced. I reviewed hermedication history. She was educated on the disease state of heart failure. I explained the importance of optimizing her GDMT (improve symptoms for better quality of life, decrease hospitalizations and live longer). Heart Failure Classification: HFrEF Most Recent EF: 20% 09/2023 General Assessment 1. HFrEF -pt declining any medication adjustments -In future if pt would agree, she would benefit from addition of Isosorbide + hydralazine as ARNI is contraindicated -pt would also benefit from SGLT2 but she declines Patient having some weight gain/edema. Instructed she may take an extra bumex with potassium. Updated prescriptions to reflect what patient is actually taking. 2. Atrial fibrillation -Taking Eliquis and Amiodarone -Seeing EP 3. WILL 4. Uncontrolled HLD -not on medication -recommend statin -crestor d/c for unknown reason Recommendations - Diuretic: Continue Bumex 1 tab QD w/ extra as needed + potassium - - Beta-Juliette: Continue Metoprolol Er 25 mg BID - - ACEi/ARB/ARNI: angioedema with Lisinopril - Contraindicated/Not Tolerated - MRA: Continue Aldactone 25 mg QD - At Goal - SGLT2i: Removed Jardiance from med list; pt refuses - Follow-Up: None; MTM will sign off as pt not agreeable to medication the [facility] 12/06/2024 I spent a total of 20-29 minutes (exact time 20 mins) on the date of service in preparation, delivery, and documentation of the care provided to Ramona Stringer excluding any time spent in the performance of separately billed services or time spent by another provider/QHP. Chanel Ventura [facility] Clinical Pharmacist - Medical Director Of Hospice Medication Therapy Management Clinic 11/01/2024 - 2:48 PM documented in this encounter Plan of Treatment Upcoming Encounters Date Type Department Care Team (Late st Contact Info) Description 11/25/2024 1:00 PM EST Cardiac Studies Cardiac Studies, [facility] [address] [place] [address] 12/06/2024 2:30 PM EST Office Visit Cardiology, [facility] [address] [facility] [place] [address] Sebastian Santiago DO [address] [place] [address] 01/30/2025 12:20 PM EDT Office Visit [facility] [phone] Jenny Pressley MD 226 [place] [address] 04/21/2025 1:30 PM EDT Office Visit Cardiology, [facility] 132 [facility] [place] [address] Licha Ceballos CRNP [address] [facility] [place] [address] Health Maintenance Due Date Last Done Comments [...] Power of Attor kathy? No Care Teams Road Traffic Controller Relationship Specialty Start Date End Date Jenny Pressley MD PCP - General Internal Medicine 11/20/23 documented as of this encounter
--- OUTSIDE RECORDS SUMMARY | 2025-01-08 22:13 | External Medical Summary | Summary of Care ---
Author Name Unknown Organization [facility] Address [address] [place] [address] Phone [phone] Care Team Providers Care Polysomnographic Tech Name Role Phone Jenny Pressley MD Primary Care Provider [phone] Encounter Details Date Type Department Care Team (Late st Contact Info) Description 10/27/2024 Population Health External Data Unspecified Department Allergies [...] and 1 Tablet before bedtime. 4 Active Empagliflozin 10 MG Oral Tablet (Jardiance) Take 1 Tablet by mouth in the morning. 4 Active ALPRAZolam 0.5 MG Oral Tablet (Xanax) Take 1 Tablet by mouth at bedtime as needed for Sleep or Anxiety. 30 Tablet 4 Active Amiodarone HCl 200 MG Oral Tablet (Cordarone) Take 1 Tablet by mouth daily with breakfast. 30 Tablet 11 4 Active Metoprolol Succinate ER 25 MG Oral Tablet Extended Release 24 Hour (toPROL XL) Take 2 Tablets by mouth in the morning and 2 Tablets before bedtime. 180 Tablet 3 4 Active Diclofenac Sodium 75 MG Oral Tablet Delayed Release (Voltaren) TAKE 1 TABLET BY MOUTH DAILY IN THE MORNING AND BEFORE BEDTIME TAKE WITH FOOD.. 60 Tablet 3 5 Active documented as of [...] 05/2024 Diarrhea 10/25/2023 05/25/2024 Ileus, postoperative 10/23/2023 02 024 Pneumonia 10/21/2023 05/25/2024 Severe sepsis with [...] Description 11/01/2024 1:00 PM EST Telemedicine Cardiology, [facility] [address] [place] [address] [facility] Cardiology [facility] [address] [place] [address] 11/25/2024 1:00 PM EST Cardiac Studies Cardiac Studies, [facility] [address] [place] [address] 12/06/2024 2:30 PM EST Office Visit Cardiology, [facility] [address] [place] [address] Sebastian Santiago O, DO [address] [place] [address] 01/30/2025 12:20 PM EDT [facility] [address] [place] [phone] Jenny Pressley MD [address] [place] [address] 04/21/2025 1:30 PM EDT Office Visit Cardiology, [facility] [address] [place] [address] Licha Ceballos CRNP [address] [place] [address] Health Maintenance Due Date Last Done [...] Power of Attor kathy? No Care Teams Polysomnographic Tech Relationship Specialty Start Date End Date Jenny Pressley MD PCP - General Internal Medicine 11/20/23 documented as of this encounter
--- OUTSIDE RECORDS SUMMARY | 2025-01-08 22:13 | External Medical Summary | Summary of Care ---
Author Name Unknown Organization [facility] Address [address] [place] [address] Phone [phone] Care Team Providers Care Director Risk Name Role Phone Jenny Pressley MD Primary Care Provider [phone] Encounter Details Date Type Department Care Team (Late st Contact Info) Description 12/22/2024 Telephone [facility] [address] [facility] [place] [phone] Jenny Pressley MD [address] [facility] [address] Allergies Active Allergy Reactions Criticality Noted [...] as of this encounter (statuses as of 12/22/2024) Medications Cholecalciferol 25 MCG (1000 UT) Oral [...] as of this encounter (statuses as of 12/22/2024) Active Problems Problem Noted Date Diagnosed Date [...] as of this encounter (statuses as of 12/22/2024) Resolved Problems Problem Noted Date Diagnosed Date [...] as of this encounter (statuses as of 12/22/2024) Immunizations Name Administration Dates Next Due PPD [...] EST Person calling: Anny Relationship to patient: [facility] Phone/Fax to return call: [phone] ext [phone] Reason for call(brief): need order sent to [employer] for new updated cpap supplies Pharmacy: Provider Name:Wendie Detailed message to office: need order fax to [phone] for new updated cpap supplies. Thank you documented in this encounter Plan of Treatment Upcoming Encounters Date Type Department Care Team (Late st Contact Info) Description 12/30/2024 1:30 PM EST Office Visit Otolaryngology [facility] [address] [place] [address] Tabitha Martins PA-C [address] [place] [address] 01/03/2025 4:00 PM EDT Cardiac Studies Cardiac Studies, [facility] [address] [place] [address] 01/30/2025 12:20 PM EDT [facility] Visit [facility] [phone] Jenny Pressley MD [address] [facility] [address] 04/21/2025 1:30 PM EDT Office Visit Cardiology, [facility] [address] [place] [address] Licha Ceballos CRNP [address] [facility] [place] [address] 07/03/2025 3:30 PM EDT Office Visit Cardiology, [facility] [address] [place] [address] Sebastian Santiago DO [address] [place] [address] Health Maintenance Due Date Last Done Comments [...] Power of Attor kathy? No Care Teams Director Risk Relationship Specialty Start Date End Date Jenny Pressley MD PCP - General Internal Medicine 11/20/23 documented as of this encounter
--- OUTSIDE RECORDS SUMMARY | 2025-01-08 22:13 | External Medical Summary | Summary of Care ---
Author Name Unknown Organization [facility] Address [address] [place] [address] Phone [phone] Care Team Providers Care Drywall Boardhanger Name Role Phone Jenny Pressley MD Primary Care Provider [phone] Encounter Details Date Type Department Care Team (Late st Contact Info) Description 12/06/2024 Population Health External Data Unspecified Department Allergies [...] as of this encounter (statuses as of 12/07/2024) Medications Cholecalciferol 25 MCG (1000 UT) Oral [...] as of this encounter (statuses as of 12/07/2024) Active Problems Problem Noted Date Diagnosed Date [...] as of this encounter (statuses as of 12/07/2024) Resolved Problems Problem Noted Date Diagnosed Date [...] as of this encounter (statuses as of 12/07/2024) Immunizations Name Administration Dates Next Due PPD [...] No 10/04/2024 Does the household have a [facility] source of income? (Household - for ages [...] Assessment Author No 10/21/2023 12:09 AM Pebbles Blcakman RN * Do you have serious difficulty [...] Care Team (Late st Contact Info) Description 12/13/2024 3:00 PM EST Cardiac Studies Cardiac Studies, [facility] [address] [facility] [place] [address] 01/30/2025 12:20 PM EDT Office Visit [facility] [phone] Jenny Pressley MD 226 [place] [address] 04/21/2025 1:30 PM EDT Office Visit Cardiology, [facility] [address] [facility] [place] [address] Licha Ceballos CRNP [address] [place] [address] [place] [address] 07/03/2025 3:30 PM EDT Office Visit Cardiology, [facility] [address] [facility] [place] [address] Sebastian Santiago O, DO [address] [place] [address] Health Maintenance Due Date Last Done Comments [...] Power of Attor kathy? No Care Teams Drywall Boardhanger Relationship Specialty Start Date End Date Jenny Pressley MD PCP - General Internal Medicine 11/20/23 documented as of this encounter
--- OUTSIDE RECORDS SUMMARY | 2025-01-08 22:13 | External Medical Summary | Summary of Care ---
Author Name Unknown Organization [facility] Address [address] [place] [address] Phone [phone] Care Team Providers Care Help Aid Name Role Phone Jenny Pressley MD Primary Care Provider Encounter Details Date Type Department Care Team (Late st Contact Info) Description 11/14/2024 Population Health External Data Unspecified Department Allergies [...] as of this encounter (statuses as of 11/14/2024) Medications Cholecalciferol 25 MCG (1000 UT) Oral [...] as of this encounter (statuses as of 11/14/2024) Active Problems Problem Noted Date Diagnosed Date [...] as of this encounter (statuses as of 11/14/2024) Resolved Problems Problem Noted Date Diagnosed Date [...] as of this encounter (statuses as of 11/14/2024) Immunizations Name Administration Dates Next Due PPD [...] the household have a [facility] source of income? (Household - for ages [...] 1:00 PM EST Cardiac Studies Cardiac Studies, [facility] [address] [place] [address] 12/06/2024 2:30 PM EST Office Visit Cardiology, [facility] [address] [place] [address] Sebastian Santiago DO 132 [facility] [place] [address] 01/30/2025 12:20 PM EDT Office Visit [facility] [address] [facility] [place] [phone] Jenny Pressley MD [address] [facility] [address] 04/21/2025 1:30 PM EDT Office Visit Cardiology, [facility] [address] [place] [address] Licha Ceballos CRNP [address] [place] [address] [place] [phone] Health Maintenance Due Date Last Done Comments [...] Power of Attor kathy? No Care Teams Help Aid Relationship Specialty Start Date End Date Jenny Pressley MD PCP - General Internal Medicine 11/20/23 documented as of this encounter
--- OUTSIDE RECORDS SUMMARY | 2025-01-08 22:13 | External Medical Summary | Summary of Care ---
Author Name Unknown Organization [facility] Address [address] [place] [address] Phone [phone] Care Team Providers Care Ladies Locker Room Attendant Name Role Phone Jenny Pressley MD Primary Care Provider [phone] Encounter Details Date Type Department Care Team (Late st Contact Info) Description 10/08/[address] [facility] Cardiology [address] [place] [address] Marcellus Koch DO [address] [place] [address] Allergies Active Allergy Reactions Criticality [...] as of this encounter (statuses as of 10/08/2024) Medications Cholecalciferol 25 MCG (1000 UT) Oral [...] Patient taking differently:1 mg OralDaily(AM), Reported on 10/04/2024 Potassium Chloride ER 10 MEQ Oral Tablet Extended Release Take 1 Tablet by mouth in the morning. 90 Tablet 3 4 Active Cetirizine HCl 10 MG Oral Tablet (ZyrTEC) Take 1 Tablet by mouth in the morning. 90 Tablet 3 4 Active Additional Information Patient not taking.Reported on 10/04/2024 Diclofenac Sodium 75 MG Oral Tablet Delayed [...] Additional Information Patient not taking.Reported on 10/04/2024 Amiodarone HCl 200 MG Oral Tablet (Cordarone) Take 1 Tablet by mouth 2 times a day with morning and evening meals. 4 Active Eliquis 5 MG Oral Tablet Take 1 Tablet by mouth in the morning and 1 Tablet before bedtime. 4 Active Metoprolol Succinate ER 25 MG Oral Tablet Extended Release 24 Hour (toPROL XL) Take 3 Tablets by mouth in the morning and 3 Tablets before bedtime. 4 Active Empagliflozin 10 MG Oral Tablet (Jardiance) Take 1 Tablet by mouth in the morning. 4 Active documented as of this encounter (statuses as of 10/08/2024) Active Problems Problem Noted Date Diagnosed Date [...] as of this encounter (statuses as of 10/08/2024) Resolved Problems Problem Noted Date Diagnosed Date [...] as of this encounter (statuses as of 10/08/2024) Immunizations Name Administration Dates Next Due PPD [...] 12:09 AM EST Pebbles Polk RN * Do you have serious difficulty walking or climbing stairs? (5 years old or older) Answer Date of Assessment Author Yes 10/21/2023 12:09 AM Pebbles Balckman RN * Do you have difficulty dressing [...] encounter Miscellaneous Notes * Telephone Encounter - Marcellus Koch DO - 10/08/2024 11:52 AM EST Patient called today as she was having shortness of breath. She recently had a cardioversion started on amiodarone. She denies any chest pain. She states she does not think she is retaining fluid or does not believe she is back in atrial fibrillation. I advised patient to come to the Emergency Roomfor further evaluation and management. documented in this encounter Plan of Treatment Upcoming Encounters Date Type Department Care Team (Late st Contact Info) Description 10/13/2024 11:45 AM EST [facility] [address] [place] [id number] Maggie Melendez DO [address] [place] [address] 11/01/2024 1:00 PM EST Telemedicine Cardiology, [facility] [address] [facility] [place] [address] [facility] [address] [place] [address] 11/25/2024 1:00 PM EST Cardiac Studies Cardiac Studies, [facility] [address] [place] [address] 12/06/2024 2:30 PM EST Office Visit Cardiology, [facility] [address] [place] [address] Sebastian Santiago DO [address] [place] [address] 01/30/2025 12:20 PM EDT [facility] [address] 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 No Care Teams Ladies Locker Room Attendant Relationship Specialty Start Date End Date Jenny Pressley MD [address] [facility] [place] [address] PCP - General Internal Medicine 11/20/23 documented as of this encounter
--- OUTSIDE RECORDS SUMMARY | 2025-01-08 22:13 | External Medical Summary | Continuity of Care Document ---
Author Name Unknown Organization [facility] [address] [place] [address] [place] [phone] Care Team Providers Care Tech Ed Teacher Name Role Phone Jenny Pressley Primary Care Physician [phone] Encounter [facility] [id number] Date(s): 11/16/24 - 11/16/24 [facility] [address] [facility], [address] [place] [address] [phone] Encounter Diagnosis A-fib(Discharge Diagnosis) - 11/16/24 Discharge Disposition: Home or Self Care Attending Physician: MD Saldivar Mario D Referring Physician: MD Pressley Juyeon Allergies, Adverse Reactions, Alerts Substance Criticality Severity Reaction Reaction Severity Status metoprolol palpitatins Active sotalol palpitations Active IVP dye rash Active digoxin psychologically Acti ve lisinopril angioedema Active losartan Active beta blockers Active Medications Allergy medication Start: 11/16/24 1:19:00 PM EST, Allergy medication, Daily Start Date: 11/16/24 Status: Ordered amiodarone 100 mg oral tablet Start: 11/16/24 1:17:00 PM EST, 1 tab, PO, Daily Start Date: 11/16/24 Status: Ordered amiodarone 200 mg oral tablet Start: 11/16/24 1:35:00 PM EST, 1 tab, PO, Daily, Disp# 90 tab, Refills: 10, Pharmacy: [facility]/pharmacy #[id number] Start Date: 11/16/24 Stop Date: 08/03/27 Status: Ordered bumetanide 1 mg oral tablet Start: 11/16/24 1:18:00 PM EST, 1 tab, PO, Daily, 1 tab if needed. Start Date: 11/16/24 Status: Ordered Eliquis 5 mg oral tablet Start: 10/05/23 2:25:00 PM EST, 1 tab, PO, bid, Disp# 60 tab, Refills: 11, Pharmacy: [facility]/pharmacy #[id number] Start Date: 10/05/23 Status: Ordered Klor-Con 10 mEq oral tablet, extended release Start: 06/30/17 10:34:00 AM EDT, See Instructions, Disp# 190 tab, Refills: 3, TAKE 2 TABLETS TWICE A DAY MAY TAKE EXTRA TAB WHILE TAKING LASIX, Pharmacy: [facility]/pharmacy #[id number] Start Date: 06/30/17 Status: Ordered spironolactone Start: 11/24/23 1:00:00 PM EST, 25 mg =, PO, Daily Start Date: 11/24/23 Status: Ordered Vicodin 5 mg-500 mg oral tablet Start: 06/02/12 3:06:00 PM EDT, 2 tab, PO, q4h, PRN: as needed for pain Start Date: 06/02/12 Status: Ordered Mental Status 11/16/24 Barriers to Learning one year None evide nt Mandatory Health Literacy Documentation Yes Health Literacy Communication Barriers U nable to assess Primary Language Scottish Problem List Condition Confirmation Course Effective Dates Status Health St atus Informant Anxiety Confirmed Active A-fib Confirmed Active Congestive heart failure, unspecified 1 Confirmed Active Medication management Confirmed Active Fibromyalgia Confirmed Active HTN (hypertension) Confirmed Active Irregular heartbeat Confirmed Active Elevated LFTs Confirmed Active Low back pain Confirmed Active Lymphoma Confirmed Active WILL on CPAP Confirmed Active S/p ablation of atrial fibrillation Confirmed Active Thyroid nodule Confirmed Active Weight disorder Confirmed Active 1Added by rule based on previous diagnosis(es) of heart failure Diagnosis Diagnosis Type Effective Dates Health Status Cl[facility] Service Informant A-fib Discharge Diagnosis 11/16/24 Procedures Procedure Date Related Diagnosis Body Site Status Cardioversion Completed section Complete d Deviated septum repair Co mpleted Partial thyroidectomy Com pleted Procedure on ear x3 to remove mass Completed Pulmonary function test C ompleted Sleep apnea Completed Tonsillectomy Completed Tumor of abdomen Complete d Results Laboratory List Name Date Liver Profile (LIVER PROFILE) 11/16/24 Thyroid Stimulating Hormone (TSH) 5 Most recent to oldest [Reference Range]: 1 Alk Phos [35-115 unit/L] 93 unit/L 1 (11/16/24 1:43 PM) ALT [0-33 unit/L] 19 unit/L (11/16/24 1:43 PM) T Bili [0.0-1.2 mg/dL] 0.5 mg/dL (11/16/24 1:43 PM) TSH [0.30-4.20 uIU/mL] 1.61 uIU/mL (11/16/24 1:43 PM) 1Result Comment: Low levels of ALKP may indicate a deficiency in zinc, magnesium, or malnutritionbutcan also be an indicator of a rare genetic disease hypophosphatasia (HPP). Vital Signs Most recent to oldest [Reference Range]: 1 Height 170 cm (11/16/24 1:20 PM) Patient Weight 125.6 kg (11/16/24 1:20 PM) Body Mass Index 43.46 kg/m2 (11/16/24 1:20 PM) Temperature [36.5-37.9 DegC] 36.7 DegC (11/16/24 1:20 PM) Heart Rate 70 bpm (11/16/24 1:20 PM) Respiratory Rate 16 br/min (11/16/24 1:20 PM) Blood Pressure 132/74mmHg (11/16/24 1:20 PM) Cuff Pulse Pressure 58 mmHg (11/16/24 1:20 PM) BP Location # 1 Right Arm (11/16/24 1:20 PM) Social History Social History Type Response Smoking Status Never smoked cigaret debbi Sex Female Sex Representation Female (finding) Patient Care team information Care Team Personnel Name: MD Pressley Juyeon Position: Referring DIRECT Member Role: Primary Care Provider Address: [address] [place] [address] [address] Care Team Related Persons Name: GENOVEVA GARCIA Name: SHIRA GARCIA
--- OUTSIDE RECORDS SUMMARY | 2025-01-08 22:13 | External Medical Summary | Summary of Care ---
Author Name Unknown Organization [facility] Address [address] [place] [address] Phone [phone] Care Team Providers Care 911 Operator Name Role Phone Jenny Pressley MD Primary Care Provider [phone] Reason for Visit * Reason Comments Consultation Rm 11 * Evaluate & Treat - Unlimited Visits (Within 10 days (routine)) - Authorized Specialty Diagnoses / Procedures Referred By Contact Referred To Contact Cardiac Electrophysiology / Cardiology Diagnoses Hospital discharge follow-up PAF (paroxysmal atrial fibrillation) (HCC) History of cardiac radiofrequency ablation Leighann Davis CRNP [address] [place] [address] Phone: tel:[phone] fax:[phone] Referral ID Status Reason Start Date Expiration Date Visits Requested Visits Authorized [id number] Authorized Specialty Services Required 09/29/2024 [id number] Encounter Details Date Type Department Care Team (Late st Contact Info) Description 10/13/2024 11:45 AM EST [place] [facility] [address] [place] [address] [place] [id number] Maggie Melendez DO [address] [facility] [place] [address] PAF (paroxysmal atrial fibrillation) (HCC)*; Encounter for monitoring amiodarone therapy; HTN, goal below 140/90; Dilated cardiomyopathy (HCC); WILL on CPAP Allergies Active Allergy Reactions Criticality Noted Date [...] as of this encounter (statuses as of 10/23/2024) Medications Cholecalciferol 25 MCG (1000 UT) Oral [...] mouth in the morning. 90 Tablet 3 Active Diclofenac Sodium 75 MG Oral Tablet Delayed Release (Voltaren) TAKE 1 TABLET BY MOUTH DAILY IN THE MORNING AND BEFORE BEDTIME TAKE WITH FOOD.. 60 Tablet 3 Active HYDROcodone-Acet aminophen 7.5-300 MG Oral Tablet Take 1 Tablet by mouth every 8 hours as needed for Pain, Severe. 60 Tablet Active Fluticasone Propionate 50 MCG/ACT Nasal Suspension [...] daily with breakfast. 30 Tablet 11 Active Metoprolol Succinate ER 25 MG Oral Tablet Extended Release 24 Hour (toPROL XL) Take 2 Tablets by mouth in the morning and 2 Tablets before bedtime. 180 Tablet 3 Active ALPRAZolam 0.5 MG Oral Tablet (Xanax) [...] as of this encounter (statuses as of 10/23/2024) Active Problems Problem Noted Date Diagnosed Date [...] as of this encounter (statuses as of 10/23/2024) Resolved Problems Problem Noted Date Diagnosed Date [...] as of this encounter (statuses as of 10/23/2024) Immunizations Name Administration Dates Next Due PPD [...] PM EST documented as of this encounter Last Filed Vital Signs Vital Sign Reading Time Taken Comments Blood Pressure 108/64 10/13/2024 11:57 AM EST Pulse 64 10/13/2024 11:57 AM EST Temperature - - Respiratory Rate 16 10/13/2024 11:57 AM EST Oxygen Saturation - - Inhaled Oxygen Concentration - - Weight 119.7 kg (264 lb) 10/13/2024 11:57 AM EST Height 167.6 cm (5' 6") 10/13/2024 11:57 AM EST Body Mass Index 42.61 10/13/2024 11:57 AM EST documented in this encounter Functional Status * Are you [...] of Assessment Author Yes 10/21/2023 12:09 AM EST Pebbles Polk RN * Do you have difficulty dressing [...] Pebbles Blackman RN documented in this encounter Patient Instructions * Patient Instructions* Maggie Melendez, - 10/13/2024 12:38 PM EST Decrease amiodarone to 200mg daily (one tab a day) If in 3 weeks you are still tired and fatigue then decrease the metoprolol to 50mg 2x a day (2 tabsa day) and see if fatigue improves I would not stop the eliquis; unless you can purchase a [employer] mobile and monitor your heart rhythm on a daily basis to ensure you are not back in AF Other anti-arrhythmic agents to try is tikosyn but you need to be in the hospital for 3 days to start this; vs sotalol (this would be a 12 hour or overnight stay at [facility]) which is similar to metoprolol and you were on this in the past and I am not sure why you did not tolerate it. Procedure garcia you can speak to Dr. Liao or Jan about other procedures on the left side ofthe heart for AF; the other option would be a pacemaker and then we make you depend on the pacemaker by disconnecting the top and bottom chambers electrically this way the top chamber when it goes into that AF can go as fast as it wants to but the bottom chamber is only going to listen to the pacemaker and not go fast. Ok to take the extra bumex by 2pm if you have more swelling and shortness of breath Your follow up appointment might be with jenn luna she is my nurse practitioner seeing myfollow ups but as long as I am not in the OR or off for the day I will pop in to see you as well documented in this encounter Progress Notes * Maggie Melendez DO - 10/13/2024 11:55 AM EST Subjective Ramona Stringer is a 68 year old female. Chief Complaint Patient presents with Consultation Rm 11 Pt returns to EP due to pAF Referring Provider: Dr. Santiago Cardiac Problems: pAF on amiodarone and toprol and eliquis (previously did not tolerate multaq and sotalol) CRYSTAL guided DCCV in 10/2023 due to hospitalization for AF and CHF s/p PVI ablation 12/18/2014 and redo PVI ablation at [place] with Dr. Hess 11/24/2023; amio and eliquis stopped 02/2024 but then had recurrent AF 09/2024 was restarted on amio and eliquis s/p DCCV 09/28/2024 [id number] (age, female, HTN, CHF) HTN HLD Chronic heart failure with reduced EF, NYHA Class III NICM EF < 20% on echo from 09/2023; was 45% in 11/2014 Diffuse large B cell lymphoma WILL on CPAP Iron deficiency anemia Gout H/o GIB HPI: Pt was doing well until a few weeks ago ended up back in AF with RVR so went to [facility]; where she underwent a CRYSTAL guided DCCV and restarted on amiodarone and eliquis; her toprol was increased 75mg BID. Since the hospital discharge she is somewhat better She is having more fatigue but she does not sleep well; the last 3 days she took xanax and slept better but still have fatigue She does not tolerate the amiodarone well due to she reports her hair falling out and tremors PMH: Patient Active Problem List Diagnosis Other chronic sinusitis Anterior scleritis Drusen of [...] by mouth in the morning. 90Tablet 3 Cetirizine HCl 10 MG Oral Tablet (ZyrTEC) Take 1 Tablet by mouth in the morning. (Patient not taking: Reported on 10/04/2024) 90 Tablet 3 Diclofenac Sodium 75 MG Oral Tablet Delayed Release (Voltaren) TAKE 1 TABLET BY MOUTH DAILY IN THE MORNING AND BEFORE BEDTIME TAKE WITH FOOD.. 60 Tablet 3 HYDROcodone-Acetaminophen 7.5-300 MG Oral Tablet Take 1 Tablet by mouth every 8 hours as needed forPain, Severe. 60 Tablet 0 Fluticasone Propionate 50 MCG/ACT Nasal Suspension (Flonase) SPRAY 2 SPRAYS INTO EACH NOSTRIL IN THE MORNING (Patient not taking: Reported on 10/04/2024) 48 mL 3 Amiodarone HCl 200 MG Oral Tablet (Cordarone) Take 1 Tablet by mouth 2 times a day with morning andevening meals. Eliquis 5 MG Oral Tablet Take 1 Tablet by mouth in the morning and 1 Tablet before bedtime. Metoprolol Succinate ER 25 MG Oral Tablet Extended Release 24 Hour (toPROL XL) Take 3 Tablets by mouth in the morning and 3 Tablets before bedtime. Empagliflozin 10 MG Oral Tablet (Jardiance) Take 1 Tablet by mouth in the morning. (Patient not taking: Reported on 10/04/2024) No current facility-administered medications for this visit. [...] performed by Eden Foreman DO at ENDOSCOPY [facility] CREATE EARDRUM OPENING,LOCAL ANESTH Tympanostomy tubes; cholesteotoma repair EGD, FLEXIBLE, DIAGNOSTIC N/A 06/10/2016 normal/ESOPHAGOGASTRODUODENOSCOPY (EGD), FLEXIBLE, TRANSORAL, DIAGNOSTIC performed by Eden Foreman DO at ENDOSCOPY [facility] EXPLORATION OF ABDOMEN N/A 07/24/2016 EXPLORATORY LAPAROTOMY performed by Eden Hassan DO at OR [facility] PARTIAL REMOVAL OF THYROID LOBE had a lump at age 15-16- assumes it was benign REMOVAL OF SMALL INTESTINE W/FUSION N/A 07/24/2016 ENTERECTOMY SMALL BOWEL RESECTION performed by Eden Hassan DO at OR [facility] REMOVE TONSILS & ADENOIDS, UNDER 12 T & A, age<12 REPAIR OF NASAL SEPTUM ? 2001 Nasal Septum Repair - Dr. Hernández REVISE MIDDLE EAR & MASTOID 12/16/2011 TYMPANOPLASTY MASTOIDECTOMY WITHOUT OSSICULAR RECONSTRUCTION performed by SEA MCCARTY [place] [facility] [place] of patient's allergies indicates: Allergen Reactions Atenolol Anaphylaxis Lisinopril Edema face/lips/tongue Sudafed [Pseudoephedrine] Tachycardia Causes [...] Mother pacer Hypertension Mother Heart Disorder Father [place] Heart Disorder Brother A.fib Mental Disorder Daughter [...] Entered by: Nik Krishna MD 03/13/2006 Social Needs Financial Resource Strain: Low Risk (10/04/2024) Financial Resource Strain Do you have any trouble paying for your medications, or do you think you might in the future? (Adult - for ages 18 years and over): No Does your family have trouble paying for medicine? (Household - for ages 0-17 years): Not on file Food Insecurity: No Food Insecurity (10/04/2024) Food Insecurity Do you need food for [...] on file Transportation Needs: No Transportation Needs (10/04/2024) Transportation Needs Do you have trouble getting [...] Not on file Social Connections: Socially Integrated (10/04/2024) Social Connections How often do you feel lonely or isolated from those around you? (Adult - for ages 18 years and over): Never Housing Stability: Low Risk (10/04/2024) Housing Stability Do you currently live in a care home or have no steady place to sleep [...] - for ages0-17 years): Not on file Objective BP 108/64 | Pulse 64 | Resp 16 | Ht 1.676 m (5' 6") | Wt 119.7 kg (264 lb) | BMI 42.61 kg/m | BSA2.36 m Physical Exam Vitals and nursing note reviewed. Constitutional: General: She is awake. Appearance: Normal appearance. She is well-developed. HENT: Head: Normocephalic and atraumatic. Eyes: General: No scleral icterus. Extraocular Movements: Extraocular movements intact. Neck: Vascular: Normal carotid pulses. No carotid bruit or JVD. Cardiovascular: Rate and Rhythm: Normal rate and regular rhythm. Pulses: Carotid pulses are 2+ on the right side and 2+ on the left side. Radial pulses are 2+ on the right side and 2+ on the left side. Posterior tibial pulses are 2+ on the right side and 2+ on the left side. Heart sounds: S1 normal and S2 normal. No murmur heard. Pulmonary: Effort: Pulmonary effort is normal. Breath sounds: Normal breath sounds. No decreased breath sounds, wheezing, rhonchi or rales. Musculoskeletal: Cervical back: Neck supple. Right lower leg: No edema. Left lower leg: No edema. Skin: General: Skin is warm and dry. Neurological: General: No focal deficit present. Mental Status: She is alert and oriented to person, place, and time. Psychiatric: Attention and Perception: Attention normal. Mood and Affect: Mood normal. Speech: Speech normal. Behavior: Behavior normal. Behavior is cooperative. Thought Content: Thought content normal. Cognition and Memory: Cognition normal. Judgment: Judgment normal. RESULTS: ECGS: Today: SR 64bpm QTc 441ms 12/07/2023: SR 61bpm QTc 477ms 11/24/2023: SR 71bpm APC QTc 461ms 11/24/2023: SB 59bpm QTc 503ms 10/24/2023: AF 138bpm 10/22/2023: AF 136bpm 10/21/2023: AF 140bpm 10/21/2023: SR 86bpm APC QTc 452ms 10/20/2023: Atrial flutter 153bpm Nonspecific IVCD 10/20/2023: SR 81bpm PVC QTc 494ms 05/20/2023: SR 82bpm 07/22/2016: SR 88bpm 06/26/2016: SR 82bpm 01/23/2015: SR 77bpm 01/22/2015: Atrial flutter 127bpm CRYSTAL: 09/28/2024: Spontaneous echo contrast in the LA but the JOSE was clear : EF <20% JOSE no thrombus Echocardiogram: 04/11/2024: The examination is limited quality but adequate for evaluation of the referral indication. Echo enhancing agent was not administered. LV function appears mildy reduced with global hypokinesis. Recommend repeat limited echo, at no charge to the patient, with echo enhancing agent to opacify LVendocardium and assess LV EF/wall motion. Mild aortic valve regurgitation is present. Mild mitral regurgitation is present. The proximal ascending thoracic aorta is mildly enlarged- it measures 4.1 cm. 10/21/2023: The qualitative LV ejection fraction is [...] of 15mmHg. Moderate pulmonary hypertension is present. 12/11/2014: EF 45% Dilated LV Global hypokinesis RV dilated Biatrial enlargement Mild AI Moderate MR and TR RVSP 35mmHg Lab Work Reviewed: Component Latest Ref Rng 01/22/2024 09/19/2024 10/03/2024 BUN 6 - 20 mg/dL 25 (H) 15 26 (H) CREATININE 0.5 - 1.0 mg/dL 0.9 0.8 0.9 EGFR >=60 mL/min 68 86 66 SODIUM 135 - 146 mmol/L 140 141 141 POTASSIUM 3.5 - 5.1 mmol/L 4.5 4.3 4.3 CHLORIDE 98 - 107 mmol/L 100 102 101 CO2 22 - 32 mmol/L 30 26 25 ANION GAP 7 - 15 mmol/L 10 13 15 GLUCOSE 70 - 120 mg/dL 86 104 120 Albumin 3.8 - 5.0 g/dL 4.6 4.5 AST 10 - 35 U/L 21 30 Alkaline Phosphatase 35 - 130 U/L 96 101 Bilirubin, Total <=1.2 mg/dL 0.7 0.8 CALCIUM 8.4 - 10.2 mg/dL 10.6 (H) 10.2 10.7 (H) Protein 6.0 - 8.3 g/dL 7.9 7.4 ALT 10 - 35 U/L 23 26 WBC 4.00 - 10.80 K/uL 6.75 Neutrophils % 40.0 - 75.0 % 61.4 Lymphocytes % 18.0 - 42.0 % 23.7 Monocytes % 1.0 - 11.0 % 11.7 (H) Eosinophils % 0.0 - 6.0 % 2.2 Basophils % 0.0 - 2.0 % 0.6 Immature Granulocytes % 0.0 - 2.0 % 0.4 Absolute Neutrophils 1.80 - 7.70 K/uL 4.14 Absolute Lymphocytes 1.00 - 4.80 K/ul 1.60 Absolute Monocytes 0.00 - 1.10 K/uL 0.79 Absolute Eosinophils 0.00 - 0.70 K/uL 0.15 Absolute Basophils 0.00 - 0.20 K/uL 0.04 Absolute Immature Granulocytes 0.00 - 0.20 K/uL 0.03 WBC 4.00 - 10.80 K/uL 7.52 6.75 RBC 3.85 - 5.15 M/uL 4.72 4.80 HGB 12.0 - 15.3 g/dL 14.5 15.1 HCT 36.0 - 45.2 % 43.7 46.4 (H) MCV 81.5 - 97.5 fL 92.6 96.7 MCH 27.0 - 34.0 pg 30.7 31.5 MCHC 32.0 - 36.0 g/dL 33.2 32.5 RDW 11.5 - 15.5 % 14.5 13.4 PLT 140 - 400 K/uL 234 234 MPV 6.6 - 11.1 fL 9.3 10.1 nRBCs <=0 /100 WBCs 0 Triglycerides <=174 mg/dL 163 177 (H) Cholesterol <200 mg/dL 236 (H) 229 (H) HDL Cholesterol >49 mg/dL 52 50 Non-HDL Cholesterol <=159 mg/dL 184 (H) 179 (H) LDL Cholesterol <=129 mg/dL 151 (H) 144 (H) TSH 0.27 - 4.20 uIU/mL 2.04 Magnesium 1.5 - 2.6 mg/dL 2.3 BNP, NT-Pro <300 pg/mL 1,128 (H) ASSESSMENT: pAF on amiodarone and toprol and eliquis (previously did not tolerate multaq and sotalol) CRYSTAL guided DCCV in 10/2023 due to hospitalization for AF and CHF s/p PVI ablation 12/18/2014 and redo PVI ablation at [place] with Dr. Hess 11/24/2023 amio and eliquis stopped 02/2024 but then had recurrent AF09/2024 was restarted on amio and eliquis s/p DCCV 09/28/2024 [id number] (age, female, HTN, CHF) HTN HLD Chronic heart failure with reduced EF, NYHA Class III NICM EF < 20% on echo from 09/2023; was 45% in 11/2014 Diffuse large B cell lymphoma WILL on CPAP Iron deficiency anemia Gout H/o GIB Chronic mastoiditis PLAN: -pt is going to have recurrent pAF off any anti-arrhythmic agents; she is limited to what anti-arrhythmic agents she can take given her history of NICM. -she wants to get off the amiodarone -Recommend decreasing the amio to 200mg daily -Recommend in 3 weeks decreasing metoprolol to 50mg BID and see if fatigue improves -I emphasized to her the importance of her needing to be on eliquis for CVA prevention as again I really feel she will have recurrent AF in her lifetime -Did discuss with her about purchasing a [employer] mobile to monitor her cardiac rhythms -Did discuss other possible anti-arrhythmic agents such as retrying the sotalol or try tikosyn to see if those are more tolerable -I personally would not recommend a third PVI but she can speak to EP in [place] about this if she wishes; I could see her ultimately having a ppm and AVJ ablaion -Ok to take extra bumex before 2pm for LE swelling and SOB -EP f/u 6 months Maggie Melendez DO documented in this encounter Nursing Notes * Caty Bertrand NRCMA - 10/13/2024 11:59 AM EST Patient was identified by name and date of . Examination Room: 11 Name: Ramona Stringer Date of : (1955). Reason for Visit: consult visit Interim Hospitalization(s): no Problems/Concerns: SOB with exertion Chest Pain/SOB: none currently Medications reviewed and are up to date via: med list [facility] is a way you can talk to your provider online through e-mail. Would you like to sign up? I can activate it for you? ALREADY ACTIVE Do you have video visit capabilities (email and smart phone)? No. Would you be interested in 6 or 12 return visit being scheduled as a video visit if the provider approves? No Patient was instructed to not get up on the exam table/exam chair until directed and assisted by their provider; patient is to remain seated in the chair/ wheelchair/ exam table/ exam chair for fall prevention and safety reasons. Patient is aware to have assistance to step down off exam table/exam chair with personnel. Patient voiced full comprehension of instructions. MAGALIS Almazan documented in this encounter Plan of Treatment Upcoming Encounters Date Type Department Care Team (Late st Contact Info) Description 11/01/2024 1:00 PM EST Telemedicine Cardiology, [facility] [place] [address] [address] [facility] [place] [address] 11/25/2024 1:00 PM EST Cardiac Studies Cardiac Studies, [facility] [place] [address] [place] [address] 12/06/2024 2:30 PM EST Office Visit Cardiology, [facility] [address] [place] [address] Sebastian Santiago DO [address] [place] [address] 01/30/2025 12:20 PM EDT Office Visit [facility] [address] [facility] [place] [phone] Jenny Pressley [facility] [address] [facility] [place] [id number] 04/21/2025 1:30 PM EDT Office Visit Cardiology, [facility] [address] [place] [address] Licha Ceballos CRNP [address] [place] [address] Scheduled Orders Name Type Priority Associated Diagnoses Orde r Schedule EKG EKG Routine PAF (paroxysmal atrial fibrillation) (HCC) Encounter for monitoring amiodarone therapy HTN, goal below 140/90 Dilated cardiomyopathy (HCC) WILL on CPAP Expected: 10/13/2024 (Approximate), Expires: 11/13/2025 Health Maintenance Due Date Last Done Comments [...] (paroxysmal atrial fibrillation) (HCC)- Primary Atrial fibrillation Encounter for monitoring amiodarone therapy Encounter for therapeutic drug monitoring HTN, goal below 140/90 Unspecified essential hypertension Dilated cardiomyopathy (HCC) Other primary cardiomyopathies WILL on CPAP Obstructive sleep apnea (adult) (pediatric) documented in [...] Power of Attor kathy? No Care Teams 911 Operator Relationship Specialty Start Date End Date Jenny Pressley MD PCP - General Internal Medicine 11/20/23 documented as of this encounter
--- OUTSIDE RECORDS SUMMARY | 2025-01-08 22:14 | External Medical Summary | Summary of Care ---
Author Name Unknown Organization [facility] Address [address] [place] [address] Phone [phone] Care Team Providers Care Plaque Maker Name Role Phone Jenny Pressley MD Primary Care Provider Reason for Visit * Reason Onset Date Comments Hospital Follow-Up Pt here today for hospital discharge follow upPlease review pt's medications Hospital Follow-Up 10/03/2024 Encounter Details Date Type Department Care Team (Late st Contact Info) Description 10/03/2024 11:40 AM EST Office Visit [facility] [address] [place] [address] Jenny Pressley MD [address] [place] [address] Atrial fibrillation with RVR (HCC)*; Need for pneumococcal vaccination; Encounter for screening mammogram for malignant neoplasm of breast; Risk and functional assessment; History of cardioversion; Chronic heart failure with reduced ejection fraction and diastolic dysfunction (HCC); Hypertensive heart disease with chronic combined systolic and diastolic congestive heart failure (HCC); PAF (paroxysmal atrial fibrillation) (HCC); Mammogram declined; WILL on CPAP; HTN, goal below 140/90; Dilated cardiomyopathy (HCC); Hospital discharge follow-up; Multiple thyroid nodules Allergies Active Allergy Reactions Criticality Noted Date [...] as of this encounter (statuses as of 10/04/2024) Medications Cholecalciferol 25 MCG (1000 UT) Oral [...] Anxiety. Active Spironolactone 25 MG Oral Tablet (Aldactone)Indic [...] morning. 90 Tablet 3 06/02/20 24 Active Additional Information Patient not taking.Reported on 10/04/2024 Diclofenac Sodium 75 MG Oral Tablet Delayed Release (Voltaren) TAKE 1 TABLET BY MOUTH DAILY IN THE MORNING AND BEFORE BEDTIME TAKE WITH FOOD.. 60 Tablet 3 06/08/20 24 Active HYDROcodone-Acet aminophen 7.5-300 MG Oral Tablet Take 1 Tablet by mouth every 8 hours as needed for Pain, Severe. 60 Tablet 08/01/20 24 Active Fluticasone Propionate 50 MCG/ACT Nasal Suspension (Flonase)Indicat ions:Acute maxillary sinusitis, unspecified SPRAY 2 SPRAYS INTO EACH NOSTRIL IN THE MORNING 48 mL 3 10/02/20 Active Additional Information Patient not taking.Reported on 10/04/2024 Amiodarone HCl 200 MG Oral Tablet (Cordarone) Take 1 Tablet by mouth 2 times a day with morning and evening meals. 09/30/20 Active Eliquis 5 MG Oral Tablet Take 1 Tablet by mouth in the morning and 1 Tablet before bedtime. 09/30/20 24 Active Metoprolol Succinate ER 25 MG Oral Tablet Extended Release 24 Hour (toPROL XL) Take 3 Tablets by mouth in the morning and 3 Tablets before bedtime. 09/30/20 24 Active Empagliflozin 10 MG Oral Tablet (Jardiance) Take 1 Tablet by mouth in the morning. 09/30/20 24 Active Metoprolol Tartrate 25 MG Oral Tablet (Lopressor) Take 1 Tablet by mouth in the morning. 2023 Discontinued documented as of this encounter (statuses as of 10/04/2024) Active Problems Problem Noted Date Diagnosed Date [...] as of this encounter (statuses as of 10/04/2024) Resolved Problems Problem Noted Date Diagnosed Date [...] as of this encounter (statuses as of 10/04/2024) Immunizations Name Administration Dates Next Due PPD [...] Sign Reading Time Taken Comments Blood Pressure 110/80 10/03/2024 12:02 PM EST Pulse 78 10/03/2024 12:02 PM EST Temperature 36.6 C (97.9 F) 10/03/2024 12:[address] Respiratory Rate 18 10/03/2024 12:02 PM EST Oxygen Saturation 98% 10/03/2024 12:02 PM EST Inhaled Oxygen Concentration - - Weight 117.5 kg (259 lb) 10/03/2024 12:02 PM EST Height - - Body Mass Index 42.22 06/02/2024 4:00 PM EDT documented in this encounter Functional Status * [...] * Patient Instructions* Kaleigh Orta LPN - 10/03/2024 12:05 PM EST Images from the original note were not included. ~~PATIENT INSTRUCTIONS FOR PNEUMOCOCCAL VACCINE~~ Possible side [...] OF EYES, FACE OR INSIDE OF NOSE. Mammography Mammography is an X-ray exam of your breast tissue. The image it makes is called a mammogram. A mammogram can help find problems with your breasts, such as cysts or cancer. Mammography is the best breast cancer screening tool available. Have screening mammograms and professional breast exams as often as your healthcare provider recommends. Also, be sure you know how your breasts normally look and feel. This makes it easier to noticeany changes. Report changes to your healthcare provider as soon as possible. How do I get ready for a mammogram? Schedule the test for 1 week after your period. Your breasts are less sore then. Make sure your clinic gets images of your last mammogram if it was done somewhere else. This lets the provider compare the 2 sets of images for any changes. On the morning of your test, dont use deodorant, powder, or perfume. Wear a top that you can take off easily. What happens during a mammogram? You will need to undress from the waist up. The technologist will position your breast to get the best test results. Each of your breasts will be compressed one at a time. This helps get the most complete X-ray image. Your breasts will be repositioned to get at least 2 separate views of each breast. What happens after a mammogram? More X-rays are sometimes needed. If not done at the time of your initial mammogram, youll be called to schedule them. You should receive your test results in writing. Ask about this on the day of your appointment. Have mammograms as often as your healthcare provider recommends. Let the technologist know if: Youre or think you may be You have breast implants You have any scars or moles on or near your breasts Youve had a breast biopsy or surgery Youre Date Last Reviewed: 03/26/201719998592-0702 [employer]. [address] [place] [address]. All rights reserved. This information is not intended as a substitute for professional medical care. Always follow your healthcare professional's instructions Patient Instructions - Fall Prevention (This education [...] pathway between the bedroom and the bathroom [employer] Patient Education Copyright 2008 - 2010 [...] 10 times. Repeat this throughout the day. [employer] Patient Education Copyright 2008 [employer] except where otherwise noted. Preventing Falls: Moving [...] that mean climbing, even on a stepstool. [employer] Patient Education Copyright 2008 - 2010 [employer] except where otherwise noted. Urinary Incontinence Plan [...] Wear support stockings (TEDs)if you have edema Kaleigh Orta LPN 10/03/2024 Kegel Exercises Kegel exercises dont require special [...] even more effective. [employer] Patient Education Copyright 2009 - 2010 [employer] except where otherwise noted. [...] Progress Notes * Jenny Pressley MD - 10/03/2024 12:08 PM EST Subjective Ramona Stringer is a 68 year old female. Chief Complaint Patient presents with Hospital Follow-Up Pt here today for hospital discharge follow up Please review pt's medications Hospital Follow-Up HPI: Here for hospital f/u Admission sep 2 Discharge Sep 30 Dx : afib with rvr , CHF, systolic CMP, EF 20 % S/p cardioversion Meds adjustment by cardio Today pt still shows afib still, rate controlled Taking eliquis, amiodarone bid, higher dose toprol 75 mg bid Needs to f/u with cardio Pt feels not good with amiodarone Pt was given jardiance sometime ago but didn't take it yet Pt would like to discuss with cardio at first WILL , morbid obesity + Pt has hx of multiple thyroid nodules, no recent f/u PMH: Patient Active Problem List Diagnosis Other [...] performed by Eden Foreman DO at ENDOSCOPY [facility] CREATE EARDRUM OPENING,LOCAL ANESTH Tympanostomy tubes; cholesteotoma repair EGD, FLEXIBLE, DIAGNOSTIC N/A 06/10/2016 normal/ESOPHAGOGASTRODUODENOSCOPY (EGD), FLEXIBLE, TRANSORAL, DIAGNOSTIC performed by Eden Foreman DO at ENDOSCOPY [facility] EXPLORATION OF ABDOMEN N/A 07/24/2016 EXPLORATORY LAPAROTOMY performed by Eden Hassan DO at OR [facility] PARTIAL REMOVAL OF THYROID LOBE had a lump at age 15-16- assumes it was benign REMOVAL OF SMALL INTESTINE W/FUSION N/A 07/24/2016 ENTERECTOMY SMALL BOWEL RESECTION performed by Eden Hassan DO at OR [facility] REMOVE TONSILS & ADENOIDS, UNDER 12 T & A, age<12 REPAIR OF NASAL SEPTUM ? 2001 Nasal Septum Repair - Dr. Hernández REVISE MIDDLE EAR & MASTOID 12/16/2011 TYMPANOPLASTY MASTOIDECTOMY WITHOUT OSSICULAR RECONSTRUCTION performed by SEA MCCARTY at OR [facility] Review of patient's allergies indicates: Allergen Reactions [...] Stability Do you currently live in a custodial or have no steady place to sleep [...] Review of Systems Constitutional: Positive for activity change, appetite change and fatigue. Negative for chills, diaphoresis, fever and unexpected weight change. HENT: Positive for congestion, postnasal drip and rhinorrhea. Negative for ear pain, sinus pressure, sinus pain, sneezing and sore throat. Respiratory: Positive for cough and shortness of breath (on exertion). Negative for chest tightnessand wheezing. Cardiovascular: Negative for chest pain, palpitations and leg swelling. Gastrointestinal: Negative for abdominal distention and abdominal pain. Endocrine: Negative. Genitourinary: Negative for dysuria and hematuria. Musculoskeletal: Positive for arthralgias. Allergic/Immunologic: Positive for environmental allergies and immunocompromised state. Neurological: Positive for weakness (eneral). Negative for dizziness, light- headedness and headaches. Psychiatric/Behavioral: Positive for dysphoric mood and sleep disturbance. Negative for agitation and behavioral problems. The patient is nervous/anxious. Objective BP 110/80 | Pulse 78 | Temp 97.9 F (36.6 C) (Infrared ) | Resp 18 | Wt 259 lb (117.5 kg) | [id number]% | BMI 42.22 kg/m | BSA 2.33 m Physical Exam Constitutional: General: She is not in acute distress. Appearance: Normal appearance. She is obese. She is not ill-appearing, toxic- appearing or diaphoretic. HENT: Head: Normocephalic and atraumatic. Nose: Congestion and rhinorrhea present. Eyes: Extraocular Movements: Extraocular movements intact. Cardiovascular: Rate and Rhythm: Normal rate. Rhythm irregular. Pulses: Normal pulses. Pulmonary: Effort: Pulmonary effort is normal. No respiratory distress. Breath sounds: No stridor. No wheezing, rhonchi or rales. Chest: Chest wall: No tenderness. Musculoskeletal: General: Tenderness present. Right lower leg: No edema. Left lower leg: No edema. Neurological: General: No focal deficit present. Mental Status: She is alert and oriented to person, place, and time. Psychiatric: Behavior: Behavior normal. ASSESSMENT/PLAN: Atrial fibrillation with RVR ([facility]) (Primary) - BASIC METABOLIC PANEL; Future; Expected date: 10/03/2024 - ALBUMIN / CREATININE RATIO, URINE; Future; Expected date: 10/03/2024 - BNP, NT-PRO; Future; Expected date: 10/03/2024 Need for pneumococcal vaccination Encounter for screening mammogram for malignant neoplasm of breast Risk and functional assessment History of cardioversion Chronic heart failure with reduced ejection fraction and diastolic dysfunction ([facility]) - BASIC METABOLIC PANEL; Future; Expected date: 10/03/2024 - ALBUMIN / CREATININE RATIO, URINE; Future; Expected date: 10/03/2024 - BNP, NT-PRO; Future; Expected date: 10/03/2024 Hypertensive heart disease with chronic combined systolic and diastolic congestive heart failure (HCC) - BASIC METABOLIC PANEL; Future; Expected date: 10/03/2024 - ALBUMIN / CREATININE RATIO, URINE; Future; Expected date: 10/03/2024 - BNP, NT-PRO; Future; Expected date: 10/03/2024 PAF (paroxysmal atrial fibrillation) (HCC) Mammogram declined WILL on CPAP HTN, goal below 140/90 Dilated cardiomyopathy (HCC) Hospital discharge follow-up - DISCH MED RECON CUR MED LIS Multiple thyroid nodules F/u the labs Cont current meds F/ with cardio Jenny Pressley MD documented in this encounter Nursing Notes * Kaleigh Orta LPN - 10/03/2024 11:53 AM EST Chief Complaint Patient presents with Hospital Follow-Up Pt here today for hospital discharge follow up documented in this encounter Plan of Treatment Upcoming Encounters Date Type Department Care Team (Late st Contact Info) Description 11/25/2024 1:00 PM EST Cardiac Studies Cardiac Studies, [facility] [address] [place] [address] 12/06/2024 2:30 PM EST Office Visit Cardiology, [facility] [address] [place] [address] Sebastian Santiago, [address] [address] 01/30/2025 12:20 PM EDT Office Visit [facility] [address] [phone] Jenny Pressley MD [address] [address] Health Maintenance Due Date Last Done Comments [...] Not on filedocumented as of this encounter Results * (ABNORMAL) BNP, NT-PRO (10/03/2024 12:45 PM EST) BNP, NT-Pro 1,128(H) <300 pg/mL 10/04/2024 5:12 AM EST LABORATORY [facility] Blood Venous blood specimen / Unknown Venipuncture / Unknown 10/03/2024 12:45 PM EST 10/03/2024 12:46 PM EST Narrative LAB[facility]ATORY [facility] - 10/04/2024 5:12 AM EST Exclude Heart Failure: <300 pg/mL Diagnose Heart Failure: Age <50 yr: >450 pg/mL 50-75 yr: >900 pg/mL >75 yr: >1800 pg/mL GFR is 30-59 mL/min: >1200 pg/mL or Age-adjusted values GFR <30 mL/min: do not use, not reliable Prognostic threshold: 1000 pg/mL Jenny Pressley MD LAB BLOOD ORDERABLES Final Resul t Performing Organization Address [facility] de [place] [address] * ALBUMIN / CREATININE RATIO, URINE (10/03/2024 12:45 PM EST) Albumin, Random Urine 3.00 mg/dL 10/03/2024 11:56 PM EST LABORATORY [facility] Creatinine, Random Urine 166 mg/dL 10/03/2024 11:56 PM EST LABORATORY [facility] Albumin / Creatinine Ratio, Urine 18 <30 mg/g Creat 10/03/2024 11:56 PM EST LABORATORY [facility] Urine Urine specimen obtained by clean catch procedure / Unknown Non-blood Collection / Unknown 10/03/2024 12:45 PM EST 10/03/2024 12:46 PM EST [facility] LABORATORY [facility] - 10/03/2024 11:56 PM EST Normal: <30 mg/g creatinine High: 30-300 mg/g creatinine Very High: >300 mg/g creatinine Nephrotic: >2200 mg/g creatinine Jenny Pressley MD LAB URINE ORDERABLES Final Resul t Performing Organization Address [facility] de Phone Number LABORATORY [address] [address] * (ABNORMAL) BASIC METABOLIC PANEL (10/03/2024 12:45 PM EST) BUN 26(H) 6 - 20 mg/dL 10/04/2024 5:12 AM EST LABORATORY [facility] CREATININE 0.9 0.5 - 1.0 mg/dL 10/04/2024 5:12 AM EST LABORATORY [facility] EGFR 66 >=60 mL/min 10/04/2024 5:12 AM EST LABORATORY [facility] Comment:eGFR is calculated b ased on the CKD-EPI 2020 equation. SODIUM 141 135 - 146 mmol/L 10/04/2024 5:12 AM EST [facility] POTASSIUM 4.3 3.5 - 5.1 mmol/L 10/04/2024 5:12 AM EST [facility] CHLORIDE 101 98 - 107 mmol/L 10/04/2024 5:12 AM EST [facility] CO2 25 22 - 32 mmol/L 10/04/2024 5:12 AM EST [facility] ANION GAP 15 7 - 15 mmol/L 10/04/2024 5:12 AM EST [facility] GLUCOSE 120 70 - 120 mg/dL 10/04/2024 5:12 AM EST [facility] CALCIUM 10.7(H) 8.4 - 10.2 mg/dL 10/04/2024 5:12 AM EST [facility] Blood Venous blood specimen / Unknown Venipuncture / Unknown 10/03/2024 12:45 PM EST 10/03/2024 12:46 PM EST Jenny Pressley MD LAB BLOOD ORDERABLES Final Resul t [facility] [address] [place] [address] documented in this encounter Visit Diagnoses Diagnosis Atrial fibrillation with RVR (HCC)- Primary Atrial fibrillation Need for pneumococcal vaccination Need for prophylactic vaccination against streptococcus pneumoniae (pneumococcus) Encounter for screening mammogram for malignant neoplasm of breast Other screening mammogram Risk and functional assessment Screening for unspecified condition History of cardioversion Personal history of surgery to heart and great vessels, presenting hazards to health Chronic heart failure with reduced ejection fraction and diastolic dysfunction (HCC) Hypertensive heart disease with chronic combined systolic and diastolic congestive heart failure (HCC) PAF (paroxysmal atrial fibrillation) (HCC) Atrial fibrillation Mammogram declined Surgical or other procedure not carried out because of patient's decision WILL on CPAP Obstructive sleep apnea (adult) (pediatric) HTN, goal below 140/90 Unspecified essential hypertension Dilated cardiomyopathy (HCC) Other primary cardiomyopathies Hospital discharge follow-up Other follow-up examination Multiple thyroid nodules Nontoxic multinodular goiter documented in this encounter Advance Directives * [...] Power of Attor kathy? No Care Teams Plaque Maker Relationship Specialty Start Date End Date Jenny Pressley MD [address] [place] [address] PCP - General Internal Medicine 11/20/23 documented as of this encounter
--- OUTSIDE RECORDS SUMMARY | 2025-01-08 22:14 | External Medical Summary | Summary of Care ---
Author Name Unknown Organization [facility] Address [address] [place] [address] Phone [phone] Care Team Providers Care Applications Support Analyst Name Role Phone Jenny Pressley MD Primary Care Provider [phone] Reason for Referral * Evaluate & Treat - Unlimited Visits (Within 10 days (routine)) - Authorized Specialty Diagnoses / Procedures Referred By Contact Referred To Contact Cardiac Electrophysiology / Cardiology Diagnoses Hospital discharge follow-up PAF (paroxysmal atrial fibrillation) (HCC) History of cardiac radiofrequency ablation Leighann Davis CRNP [address] [address] Phone: tel:[phone] fax:[phone] Referral ID Status Reason Start Date Expiration Date Visits Requested Visits Authorized [id number] Authorized Specialty Services Required 09/29/2024 999 999 Question Answer Referral Priority Within 10 days (routine) Where should this appointment be scheduled? [facility] Reason for Visit * Reason Onset Date Comments Appointment 09/29/2024 Encounter Details Date Type Department Care Team (Late st Contact Info) Description 09/29/2024 Telephone Cardiology, [facility] [address] [place] [address] Leighann Davis CRNP [address] [place] [address] Appointment Allergies Active Allergy Reactions Criticality Noted Date [...] as of this encounter (statuses as of 10/03/2024) Medications Cholecalciferol 25 MCG (1000 UT) Oral [...] morning. 90 Tablet 3 03/24/20 24 Active Metoprolol Tartrate 25 MG Oral Tablet (Lopressor) Take 1 Tablet by mouth in the morning. Active Cetirizine HCl 10 MG Oral Tablet (ZyrTEC) Take 1 Tablet by mouth in the morning. 90 Tablet 3 06/02/20 24 Active Diclofenac Sodium 75 MG Oral [...] NOSTRIL IN THE MORNING 48 mL 1 04/02/20 24 2023 Discontinued documented as of this encounter (statuses as of 10/03/2024) Active Problems Problem Noted Date Diagnosed Date [...] as of this encounter (statuses as of 10/03/2024) Resolved Problems Problem Noted Date Diagnosed Date [...] as of this encounter (statuses as of 10/03/2024) Immunizations Name Administration Dates Next Due PPD [...] 08/01/2024 Does the household have a re gular [...] encounter Miscellaneous Notes * Telephone Encounter - Joy Hoskins OSA - 10/03/2024 8:58 AM EST Person calling: Ramona Relationship to patient: self Phone/Fax to return call: [phone] Reason for call(brief): appt Pharmacy: na Provider Name:Dr. Melendez Detailed message to office:Patient calling because she needs an urgent appt with Dr. Melendez and was told the office would get back to her. Please advise. Thanks * Telephone Encounter - Cayt Bertrand NRCMA - 09/30/2024 4:20 PM EST Printed for provider review and further recommendation. MAGALIS Valdez * Telephone Encounter - Jennifer Clemens LPN - 09/30/2024 11:05 AM EST Pt called in to schedule appointment with EP, advised her that hospital provider made nursing awareof need for appointment and Dr. Melendez staff is aware of need for appt. * Telephone Encounter - Leighann Davis CRNP - 09/29/2024 2:39 PM EST Hospital discharge follow up. Patient needs an EP follow up post discharge. Referral placed. Admission date: 09/26/24 Anticipated DC date: 09/29 or 09/30 Assessment and Plan as documented by Dr. Jones Assessment & Plan (1) Atrial fibrillation: Plan Pt seen and evaluated with [facility] staff Concur with evaluation and plans 68 yo woman presenting with palpitations Dx: Afib with RVR K+ 3.7 Mag++ 2.0 TSH - 1.9 BNP 704 EK09-26-2024 Afib + RVR - ventricular 160-170 Rx with Cardizem Cardizem was discontinued - Transitioned to Beta Blockers + Digoxin ECHO - 09-27-2024 LV function severely reduced LVEF 25-30% LV moderately dilated LA severely dilated RA moderately dilated RV systolic function - reduced AI - mild MR - mild to moderate TR - mild PASP 40 mmHg Dilated IVC Med Hx: Cardiomyopathy HFRF LVEF 20% PAF S/P Ablations (2023 @ [facility] [place]) HTN Hyperlipidemia WILL on BiPaP Diffuse large B-Cell Lymphoma GI Bleeding Gout Dilated Ascending Aorta Plans: Afib - RVR on presentation S/P CRYSTAL Cardioversion Now in NSR On IV Amiodarone START Amiodarone 200 mg po BID STOP IV Amiodarone Patient had thyroid dysfunction with Amiodarone + allopecia Plans for quick EP evaluation- question of repeat ablation in lue of Amiodarone TSH 1.9 Continue Toprol XL 75 mg po BID STOP Digoxin Diuresing - appears euvolemic START Bumex 1 mg po daily STOP Lasix 100 mg IV Start Jardiance 10 mg po per day Continue Aldactone to 25 mg po per day K+ goal 4.5-5 KDUR 40 meq po x 1 on 09/29/2024 Mag goal >2 Start afterload reduction once we get rate controlled - patient had "throat swelling with GO" (Mayuse Hydral/nitrates) - no GO/ARB/ARNI Follow up with [facility] Cardiology 52 min spent addressing challenges, educating and advancing daily plan of care Herbert Jones Please schedule for close EP follow up in 3-[address] Melendez. (FYI patient had previously followed with EP at [facility] and had an Ablation, but wishes to transfer her EP care over to [facility] to closer proximity) documented in this encounter Plan of Treatment Upcoming Encounters Date Type Department Care Team (Late st Contact Info) Description 10/03/2024 11:40 AM EST [facility] [address] [phone] Jenny Pressley MD [address] [address] 11/25/2024 1:00 PM EST Cardiac Studies Cardiac Studies, [facility] [address] [place] [address] 12/06/2024 2:30 PM EST Office Visit Cardiology, [facility] [address] [place] [address] Sebastian Santiago, [address] [address] 01/30/2025 12:20 PM EDT [facility] [address] [phone] Jenny Pressley MD [address] [address] Scheduled Referrals Name Type Priority Associated Diagnoses Orde r Schedule ELECTROPHYSIOLOGY REFERRAL OP Referral Within 10 days (routine) Hospital discharge follow-up PAF (paroxysmal atrial fibrillation) (HCC) History of cardiac radiofrequency ablation Ordered: 09/29/2024 Health Maintenance Due Date Last Done Comments Pneumococcal Vaccine: 65+ Years (1 of 2 - PCV) 1960 Mammogram 1994 Cologuard 1999 Fecal Occult Blood Test 1999 Sigmoidoscopy 1999 Colonoscopy 06/24/2021 06/24/2016, 06/24/2016 Colorectal Cancer Screening 06/24/2021 Adult Wellness Visit 11/25/2023 11/25/2022 COVID-19 Vaccine ( - season) 2024 Influenza Vaccine (FLU shot) (#1) 2024 Depression Screening 2024 2023, 01/30/2015 (Declined) GFR 09/19/2025 09/19/2024, 12/25, 12/26/2023, Additional history exists Albumin/Creatinine Ratio 05/18/2026 05/18/2023 Diabetes Screening 09/19/2027 09/19/2024, 0 01/22/2024, 12/26/2023, Additional history exists Lipid Panel 09/19/2029 09/19/2024, [...] as of this encounter Visit Diagnoses Diagnosis Hospital discharge follow-up- Primary Other follow-up examination PAF (paroxysmal atrial fibrillation) (HCC) Atrial fibrillation History of cardiac radiofrequency ablation documented in this encounter Advance Directives * [...] Power of Attor kathy? No Care Teams Applications Support Analyst Relationship Specialty Start Date End Date Jenny Pressley MD [address] [place] [address] PCP - General Internal Medicine 11/20/23 documented as of this encounter
--- OUTSIDE RECORDS SUMMARY | 2025-01-08 22:14 | External Medical Summary | Summary of Care ---
Author Name Unknown Organization [facility] Address [address] [place] [address] Phone [phone] Care Team Providers Care Mail Delivery Supervisor Name Role Phone Jenny Pressley MD Primary Care Provider [phone] Reason for Visit * Reason Onset Date Comments Appointment 10/05/2024 Encounter Details Date Type Department Care Team (Late st Contact Info) Description 10/05/2024 Telephone Cardiology, [place] [address] [facility] [place] [address] Maggie Melendez, [address] [place], [place] [phone] Appointment Allergies Active Allergy Reactions Criticality Noted [...] as of this encounter (statuses as of 10/05/2024) Medications Cholecalciferol 25 MCG (1000 UT) Oral [...] as of this encounter (statuses as of 10/05/2024) Active Problems Problem Noted Date Diagnosed Date [...] as of this encounter (statuses as of 10/05/2024) Resolved Problems Problem Noted Date Diagnosed Date [...] as of this encounter (statuses as of 10/05/2024) Immunizations Name Administration Dates Next Due PPD [...] encounter Miscellaneous Notes * Telephone Encounter - Caty Bertrand NRCMA - 10/05/2024 3:27 PM EST Pt can be seen 10/13/2024 at 12:15 pm in [facility] [address] Melendez. Pt aware and states understanding. Pt was scheduled. MAGALIS Valdez * Telephone Encounter - Jennifer Clemens LPN - 10/05/2024 12:19 PM EST Pt needs 1 year follow up (approx 12/11/24) with PAIGE Monique Assure pt that Dr. Melendez will also see her the same day. * Telephone Encounter - Alba Packer OSA - 10/05/2024 10:25 AM EST Person calling: patient Relationship to patient: self Phone/Fax to return call: [phone] Reason for call(brief): appt only with dr melendez Pharmacy: Provider Name:nam Detailed message to office:call pt at [phone] documented in this encounter Plan of Treatment Upcoming Encounters Date Type Department Care Team (Late st Contact Info) Description 10/13/2024 12:15 PM EST Office Visit Cardiology, [place] [address] [place] [address] Maggie Melendez DO [address] [place] [address] 11/25/2024 1:00 PM EST Cardiac Studies Cardiac Studies, [facility] [address] [place] [address] 12/06/2024 2:30 PM EST Office Visit Cardiology, [facility] [address] [address] Sebastian Santiago DO [address] [place] [address] 01/30/2025 12:20 PM EDT Office [facility] [address] [phone] Jenny Pressley MD [address] [facility] [address] [place] [address] Health Maintenance Due Date Last Done Comments [...] Power of Attor kathy? No Care Teams Mail Delivery Supervisor Relationship Specialty Start Date End Date Jenny Pressley MD [address] [place] [address] PCP - General Internal Medicine 11/20/23 documented as of this encounter
--- OUTSIDE RECORDS SUMMARY | 2025-01-08 22:14 | External Medical Summary | Summary of Care ---
Author Name Unknown Organization [facility] Address [address] [place] [address] Phone [phone] Care Team Providers Care Lye Bath Operator Name Role Phone Jenny Pressley MD Primary Care Provider [phone] Reason for Referral * Evaluate & Treat - Unlimited Visits (Within 10 days (routine)) - Authorized Specialty Diagnoses / Procedures Referred By Contact Referred To Contact Cardiac Electrophysiology / Cardiology Diagnoses Hospital discharge follow-up PAF (paroxysmal atrial fibrillation) (HCC) History of cardiac radiofrequency ablation Leighann Davis CRNP [address] [place] [address] Phone: tel:[phone] fax:[phone] Referral ID Status Reason Start Date Expiration Date Visits Requested Visits Authorized [id number] Authorized Specialty Services Required 09/29/2024 999 999 Question Answer Referral Priority Within 10 days (routine) [facility] this appointment be scheduled? [facility] Reason for Visit * Reason Onset Date Comments Appointment 09/29/2024 Encounter Details Date Type Department Care Team (Late st Contact Info) Description 09/29/2024 Telephone Cardiology, [facility] [address] [address] Leighann Davis CRNP [address] [place] [address] Appointment Allergies Active Allergy Reactions Criticality Noted [...] Patient taking differently:1 mg OralDaily(AM), Reported on 10/03/2024 Potassium Chloride ER 10 MEQ Oral Tablet [...] 48 mL 1 04/02/20 24 2023 Discontinued Metoprolol Tartrate 25 MG Oral Tablet (Lopressor) [...] encounter Miscellaneous Notes * Telephone Encounter - Alba Packer OSA - 10/04/2024 10:54 AM EST Pt calling back please to check message * Telephone Encounter - Joy Hoskins OSA - 10/03/2024 8:58 AM EST Person calling: Ramona Relationship to patient: self Phone/Fax to return call: [phone] Reason for call(brief): appt Pharmacy: na Provider Name:Dr. Melendez Detailed message to office:Patient calling because she needs an urgent appt with Dr. Melendez and was told the office would get back to her. Please advise. Thanks * Telephone Encounter - Caty Bertrand NRCMA - 09/30/2024 4:20 PM EST [...] LVEF 20% PAF S/P Ablations (2023 @ [facility]) HTN Hyperlipidemia WILL on BiPaP Diffuse large [...] Hydral/nitrates) - no GO/ARB/ARNI Follow up with [facility] Cardiology 52 min spent addressing challenges, educating and advancing daily plan of care Herbert Jones Please schedule for close EP follow up in 3-[address] Melendez. (FYI patient had previously followed with EP at [facility] and had an Ablation, but wishes to transfer her EP care over to [facility] to closer proximity) documented in this encounter Plan of Treatment Upcoming Encounters Date Type Department Care Team (Late st Contact Info) Description 11/25/2024 1:00 PM EST Cardiac Studies Cardiac Studies, [facility] [address] [place] [address] 12/06/2024 2:30 PM EST Office Visit Cardiology, [facility] [address] [place] [address] Sebastian Santiago O, [address] [address] 01/30/2025 12:20 PM EDT Office Visit [facility] Edwige Morris [address] [phone] Jenny Pressley MD [address] [address] Scheduled Referrals Name Type Priority Associated Diagnoses [...] Depression Screening 2024 2023, 01/30/2015 (Declined) GFR 10/03/2025 10/03/2024, 08/27, 01/22/2024, Additional history exists Albumin/Creatinine Ratio 10/03/2027 10/03/2024, 04/26 Diabetes Screening [...] Power of Attor kathy? No Care Teams Lye Bath Operator Relationship Specialty Start Date End Date Jenny Pressley MD [address] [place] [address] PCP - General Internal Medicine 11/20/23 documented as of this encounter
--- OUTSIDE RECORDS SUMMARY | 2025-01-08 22:14 | External Medical Summary ---
Author Name Unknown Address Unknown Organization [id number]:[facility] [place] [address] [facility] [address] Laboratory Report Ordering Provider Test Date Status ILEANA URBAN 10/03/2024 12:45:52 Final Observation Date Value Abnormality Reference (Units ) Status BUN 10/03/2024 12:45:52 26 Above high normal 6-20 (mg/dL) Final Creatinine 10/03/2024 12:45:52 0.9 0.5-1.0 (mg/dL) Final Glomerular filtration rate/1.73 sq M.predicted [Volume Rate/Area] in Serum, Plasma or Blood by Creatinine-based formula (CKD-EPI) 10/03/2024 12:45:52 66 >=60 (mL/min) Final eGFR is calculated based on the CKD-EPI 2020 equation. Sodium 10/03/2024 12:45:52 141 135-146 (m mol/L) Final Potassium 10/03/2024 12:45:52 4.3 3.5-5.1 (m mol/L) Final Cl 10/03/2024 12:45:52 101 98-107 (mm ol/L) Final CO2 10/03/2024 12:45:52 25 22-32 (mmo l/L) Final Anion gap 10/03/2024 12:45:52 15 7-15 (mmol /L) Final Glucose 10/03/2024 12:45:52 120 70-120 (mg /dL) Final Calcium 10/03/2024 12:45:52 10.7 Above high normal 8. 4-10.2 (mg/dL) Final Performing Location [facility] [place] [address] [facility] [address]
--- OUTSIDE RECORDS SUMMARY | 2025-01-08 22:14 | External Medical Summary ---
Author Name Unknown Address Unknown Organization [id number]:[facility] [place] [address] [address] Laboratory Report Ordering Provider Test Date Status TRINISULEMANILEANA 10/03/2024 12:45:52 Final Exclude Heart Failure: <300 pg/mL
Diagnose Heart Failure:
Age <50 yr: >450 pg/mL
50-75 yr: >900 pg/mL
>75 yr: >1800 pg/mL
GFR is 30-59 mL/min: >1200 pg/mL or Age- adjusted values
GFR <30 mL/min: do not use, not reliable

Prognostic threshold: 1000 pg/mL Observation Date Value Abnormality Reference (Units ) Status BNP, Pro-hormone 10/03/2024 12:45:52 1128 Above high no rmal <300 (pg/mL) Final Performing Location LABOR[facility]ORY [facility] [place] - [facility] [address] [place] [place] [address]
--- OUTSIDE RECORDS SUMMARY | 2025-01-08 22:14 | External Medical Summary | Summary of Care ---
Author Name Unknown Organization [facility] Address [address] [place] [address] Phone [phone] Care Team Providers Care Avionics Installer Name Role Phone Jenny Pressley MD Primary Care Provider Encounter Details Date Type Department Care Team (Late st Contact Info) Description 10/04/2024 Telephone [place] [address] [place] [address] Jenny Pressley MD [address] [place] [address] Allergies Active Allergy Reactions Criticality Noted [...] 10/21/2023 11/27/2023 Fever of unknown origin 10/21/2023 07/3 10/2023 Body mass index (BMI) of 40. 0 [...] Author No 10/21/2023 12:09 AM EST Pebbles Polk, RN * Are you blind or do [...] 1:00 PM EST Cardiac Studies Cardiac Studies, [facility] [address] [address] 12/06/2024 2:30 PM EST Office Visit Cardiology, [facility] [address] [address] Sebastian Santiago, [address] [address] 01/30/2025 12:20 PM EDT Office Visit [facility] Edwige Morris [address] [phone] Jenny Pressley MD [address] [address] Health Maintenance Due Date Last Done Comments [...] Power of Attor kathy? No Care Teams Avionics Installer Relationship Specialty Start Date End Date Jenny Pressley MD [address] [place] [address] PCP - General Internal Medicine 11/20/23 documented as of this encounter
--- OUTSIDE RECORDS SUMMARY | 2025-01-08 22:14 | External Medical Summary ---
Author Name Unknown Address Unknown Organization K01:[place] [facility] [place] [address] [address] Laboratory Report Ordering Provider Test Date Status ILEANA URBAN 10/03/2024 12:45:52 Final Normal: <30 mg/g creatinine< br/>High: 30-300 mg/g creatinine
Very High: >300 mg/g creatinine
Nephrotic: >2200 mg/g creatinine Observation Date Value Abnormality Reference (Units ) Status Albumin, Urine 10/03/2024 12:45:52 3.00 (mg/dL) Final Creatinine, Urine 10/03/2024 12:45:52 166 (mg/dL) Final Albumin/Creatinine [Mass Ratio] in Urine 10/03/2024 12:45:52 18 <30 (mg/g Creat) Final Performing Location [facility] [place] [address] [place] [address]
--- OUTSIDE RECORDS SUMMARY | 2025-01-08 22:14 | External Medical Summary | Summary of Care ---
Author Name Unknown Organization [facility] Address [address] [place] [address] Phone [phone] Care Team Providers Care Compensator Worker Name Role Phone Jenyn Pressley MD Primary Care Provider [phone] Reason for Visit * Reason Comments Outpatient Testing Encounter Details Date Type Department Care Team (Late st Contact Info) Description 10/03/2024 12:40 PM EST Laboratory Laboratory, [facility] [address] [place] [address] [place], Laboratory [address] [place] [address] Atrial fibrillation with RVR (HCC); Chronic heart failure with reduced ejection fraction and diastolic dysfunction (HCC); Hypertensive heart disease with chronic combined systolic and diastolic congestive heart failure (HCC) Allergies Active Allergy Reactions Criticality Noted [...] fibrillation status post cardioversion (HCC),NICM (nonischemic cardiomyopathy) ([facility]),Chronic heart failure with reduced ejection fraction and [...] THE MORNING 48 mL 3 4 Active Amiodarone HCl 200 MG Oral [...] No 08/01/2024 Does the household have a [facility] source of income? (Household - for ages [...] 1:00 PM EST Cardiac Studies Cardiac Studies, [facility] [address] [address] 12/06/2024 2:30 PM EST Office Visit Cardiology, [facility] [address] [address] Sebastian Santiago O, DO [address] [address] 01/30/2025 12:20 PM EDT [facility] [address] [phone] Jenny Pressley MD [address] [address] Pending Results Name Type Priority Associated Diagnoses Date /Time BASIC METABOLIC PANEL Lab Routine Atrial fibrillation with RVR (HCC) Chronic heart failure with reduced ejection fraction and diastolic dysfunction (HCC) Hypertensive heart disease with chronic combined systolic and diastolic congestive heart failure (HCC) 10/03/2024 12:45 PM EST ALBUMIN / CREATININE RATIO, URINE Lab Routine Atrial fibrillation with RVR (HCC) Chronic heart failure with reduced ejection fraction and diastolic dysfunction (HCC) Hypertensive heart disease with chronic combined systolic and diastolic congestive heart failure (HCC) 10/03/2024 12:45 PM EST BNP, NT-PRO Lab Routine Atrial fibrillation with RVR (HCC) Chronic heart failure with reduced ejection fraction and diastolic dysfunction (HCC) Hypertensive heart disease with chronic combined systolic and diastolic congestive heart failure (HCC) 10/03/2024 12:45 PM EST Health Maintenance Due Date Last [...] as of this encounter Visit Diagnoses Diagnosis Atrial fibrillation with RVR (HCC) Atrial fibrillation Chronic heart failure with reduced ejection fraction and diastolic dysfunction (HCC) Hypertensive heart disease with chronic combined systolic and diastolic congestive heart failure (HCC) documented in this encounter Advance Directives * [...] Power of Attor kathy? No Care Teams Compensator Worker Relationship Specialty Start Date End Date Jenny Pressley MD [address] [place] [address] PCP - General Internal Medicine 11/20/23 documented as of this encounter
--- OUTSIDE RECORDS SUMMARY | 2025-01-08 22:14 | External Medical Summary | Summary of Care ---
Author Name Unknown Organization [facility] Address [address] [place] [address] Phone [phone] Care Team Providers Care Lime Burner Name Role Phone Jenny Pressley MD Primary Care Provider [phone] Reason for Visit * Reason Comments eRx-Medication Refill Encounter Details Date Type Department Care Team (Late st Contact Info) Description 10/02/[address] [phone] Jenny Pressley MD [address] [place] [id number] Acute maxillary sinusitis, unspecified Allergies Active [...] as of this encounter (statuses as of 10/02/2024) Medications Cholecalciferol 25 MCG (1000 UT) Oral [...] MORNING 48 mL 3 10/02/20 24 Active Fluticasone Propionate 50 MCG/ACT Nasal Suspension (Flonase)Indicat ions:Acute maxillary sinusitis, unspecified SPRAY 2 SPRAYS INTO EACH NOSTRIL IN THE MORNING 48 mL 1 04/02/20 24 2023 Discontinued documented as of this encounter (statuses as of 10/02/2024) Active Problems Problem Noted Date Diagnosed Date [...] as of this encounter (statuses as of 10/02/2024) Resolved Problems Problem Noted Date Diagnosed Date [...] as of this encounter (statuses as of 10/02/2024) Immunizations Name Administration Dates Next Due PPD [...] No 08/01/2024 Does the household have a [facility] source of income? (Household - for ages [...] Assessment Author No 10/21/2023 12:09 AM Pebbles Blackman, RN * Because of a physical, mental, or emotional condition, do you have difficulty doing errands alone such as visiting a doctors office or shopping? (15 years old or older) Answer Date of Assessment Author No 10/21/2023 12:09 AM Pebbles Blackman, RN documented as of this encounter Mental Status * Because of a physical, mental, or emotional condition, do you have serious difficulty concentrating, remembering, or making decisions? (5 years old or older) Answer Entry Date Author No 10/21/2023 12:09 AM Pebbles Blackman RN documented in this encounter Miscellaneous Notes * Telephone Encounter - Lincoln Harrell [facility] - 10/02/2024 11:08 AM EST Signed Prescriptions: Disp Refills Fluticasone Propionate 50 MCG/ACT Nasal Finch*48 mL 3 Sig: SPRAY 2SPRAYS INTO EACH NOSTRIL IN THE MORNINGAuthorizing Provider: Jenny PRESSLEY User: LINCOLN HARRELL documented in this encounter Plan of Treatment Upcoming Encounters Date Type Department Care Team (Late st Contact Info) Description 10/03/2024 11:40 AM EST Office Visit [facility] [address] [phone] Jenny Pressley MD [address] [address] 11/25/2024 1:00 PM EST Cardiac Studies Cardiac Studies, [facility] [address] [facility] [place] [address] 12/06/2024 2:30 PM EST Office Visit Cardiology, [facility] [address] [address] Sebastian Santiago, [address] [place] [address] 01/30/2025 12:20 PM EDT Office Visit [facility] Edw[address] [phone] Jenny Pressley MD [address] [place] [address] Health Maintenance Due Date Last Done Comments [...] Power of Attor kathy? No Care Teams Lime Burner Relationship Specialty Start Date End Date Jenny Pressley MD [address] [place] [address] PCP - General Internal Medicine 11/20/23 documented as of this encounter
--- OUTSIDE RECORDS SUMMARY | 2025-01-08 22:14 | External Medical Summary | Summary of Care ---
Author Name Unknown Organization [facility] Address [address] [facility] [place] [address] Phone [phone] Care Team Providers Care Systems Software Designer Name Role Phone Jenny Pressley MD Primary Care Provider [phone] Reason for Visit * Reason Onset Date Comments Hospital Follow-Up 09/30/2024 Encounter Details Date Type Department Care Team (Late st Contact Info) Description 09/30/2024 Telephone [facility] [address] Sebastian Santiago, DO [address] [place] [address] Hospital Follow-Up Allergies Active Allergy Reactions Criticality Noted Date [...] 10/21/2023 12:09 AM EST Pebbles Polk RN documented as of this encounter Mental Status * Because of a physical, mental, or emotional condition, do you have serious difficulty concentrating, remembering, or making decisions? (5 years old or older) Answer Entry Date Author No 10/21/2023 12:09 AM EST Pebbles Polk RN documented in this encounter Miscellaneous Notes * Telephone Encounter - Ken Vázquez OSA - 10/03/2024 8:28 AM EST Duplicate TE, please see previous TE. * Telephone Encounter - Tess Celis LPN - 09/30/2024 11:27 AM EST Ramona is discharging from [facility] to home. Please contact Ramona to schedule cardiology discharge follow-up visit documented in this encounter Plan of Treatment Upcoming Encounters Date Type Department Care Team (Late st Contact Info) Description 10/03/2024 11:40 AM EST Office Visit [facility] [address] [phone] Jenny Pressley MD [address] [address] 11/25/2024 1:00 PM EST Cardiac Studies Cardiac Studies, [facility] [address] [place] [address] 12/06/2024 2:30 PM EST Office Visit Cardiology, [facility] [address] [facility] [place] [address] Sebastian Santiago DO [address] [place] [address] 01/30/2025 12:20 PM EDT Office Visit [facility] Edwige Morris [address] [phone] Jenny Pressley MD [address] [address] Health Maintenance Due Date Last Done Comments [...] Power of Attor kathy? No Care Teams Systems Software Designer Relationship Specialty Start Date End Date Jenny Pressley MD [address] [place] [address] PCP - General Internal Medicine 11/20/23 documented as of this encounter
--- OUTSIDE RECORDS SUMMARY | 2025-01-08 22:14 | External Medical Summary | Summary of Care ---
Author Name Unknown Organization [facility] Address [address] [place] [address] Phone [phone] Care Team Providers Care Fire Chief Name Role Phone Jenny Pressley MD Primary Care Provider [phone] Reason for Visit * Reason Onset Date Comments Hospital Follow-Up 09/30/2024 Encounter Details Date Type Department Care Team (Late st Contact Info) Description 09/30/2024 Telephone [facility] [address] [facility] [address] Sebastian Santiago, DO [address] [place] [address] Hospital Follow-Up Allergies Active Allergy Reactions Criticality [...] as of this encounter (statuses as of 09/30/2024) Medications Cholecalciferol 25 MCG (1000 UT) Oral [...] as of this encounter (statuses as of 09/30/2024) Active Problems Problem Noted Date Diagnosed Date [...] as of this encounter (statuses as of 09/30/2024) Resolved Problems Problem Noted Date Diagnosed Date [...] as of this encounter (statuses as of 09/30/2024) Immunizations Name Administration Dates Next Due PPD [...] encounter Miscellaneous Notes * Telephone Encounter - Tess Celis LPN - 09/30/2024 11:27 AM EST Ramona is discharging from [facility] to home. Please contact Ramona to schedule cardiology discharge follow-up visit documented in this encounter Plan of Treatment Upcoming Encounters Date Type Department Care Team (Late st Contact Info) Description 10/07/2024 11:40 AM EST [facility] [address] [phone] Jenny Pressley MD [address] [address] 11/25/2024 1:00 PM EST Cardiac Studies Cardiac Studies, [facility] [address] [place] [address] 12/06/2024 2:30 PM EST Office Visit Cardiology, [facility] [address] [place] [address] Sebastian Santiago, [address] [place] [address] 01/30/2025 12:20 PM EDT [facility] [address] [phone] Jenny Pressley MD [address] [phone] Health Maintenance Due Date Last Done Comments [...] Power of Attor kathy? No Care Teams Fire Chief Relationship Specialty Start Date End Date Jenny Pressley MD [address] [place] [address] PCP - General Internal Medicine 11/20/23 documented as of this encounter
--- OUTSIDE RECORDS SUMMARY | 2025-01-08 22:14 | External Medical Summary | Summary of Care ---
Author Name Unknown Organization [facility] Address [address] [place] [address] Phone [phone] Care Team Providers Care Signal Operator Name Role Phone Jenny Pressley MD Primary Care Provider [phone] Reason for Referral * Evaluate & Treat - Unlimited Visits (Within 10 days (routine)) - Authorized Specialty Diagnoses / Procedures Referred By Contact Referred To Contact Cardiac Electrophysiology / Cardiology Diagnoses Hospital discharge follow-up PAF (paroxysmal atrial fibrillation) (HCC) History of cardiac radiofrequency ablation Leighann Davis CRNP [address] [place] [address] Phone: tel:[phone] fax:[phone] Referral ID Status Reason Start Date Expiration Date Visits Requested Visits Authorized [id number] Authorized Specialty Services Required 09/29/2024 999 999 Question Answer Referral Priority Within 10 days (routine) Where should this appointment be scheduled? [facility] Reason for Visit * Reason Onset Date Comments Appointment 09/29/2024 Encounter Details Date Type Department Care Team (Late st Contact Info) Description 09/29/2024 Telephone Cardiology, [facility] [address] [address] Leighann Davis CRNP [address] [address] Appointment Allergies Active Allergy Reactions Criticality Noted [...] Cardiomyopathy HFRF LVEF 20% PAF S/P Ablations (2014, 2023 @ [place]) HTN Hyperlipidemia WILL on BiPaP Diffuse large [...] Hydral/nitrates) - no GO/ARB/ARNI Follow up with [facility] Cardiology 52 min spent addressing challenges, educating and advancing daily plan of care Herbert Jones Please schedule for close EP follow up in 3-[address] Melendez. (FYI patient had previously followed with EP at [place] and had an Ablation, but wishes to transfer her EP care over to [facility] to closer proximity) documented in this encounter Plan of Treatment Upcoming Encounters Date Type Department Care Team (Late st Contact Info) Description 10/03/2024 11:40 AM EST [facility] [address] [phone] Jenny Pressley MD [address] [address] 11/25/2024 1:00 PM EST Cardiac Studies Cardiac Studies, [facility] [address] [place] [address] 12/06/2024 2:30 PM EST Office Visit Cardiology, [facility] [address] [place] [address] Sebastian Santiago DO [address] [place] [address] 01/30/2025 12:20 PM EDT [facility] [address] [place] [phone] Jenny Pressley MD [address] [place] [address] Scheduled Referrals Name Type Priority Associated Diagnoses [...] Power of Attor kathy? No Care Teams Signal Operator Relationship Specialty Start Date End Date Jenny Pressley MD [address] [place] [address] PCP - General Internal Medicine 11/20/23 documented as of this encounter
--- OUTSIDE RECORDS SUMMARY | 2025-01-08 22:15 | External Medical Summary | Summary of Care ---
Author Name Unknown Organization [facility] Address [address] [place] [address] Phone [phone] Care Team Providers Care Supervisor Asbestos Removal Name Role Phone Jenny Pressley MD Primary Care Provider [phone] Encounter Details Date Type Department Care Team (Late st Contact Info) Description 09/29/2024 Population Health External Data Unspecified Department Allergies [...] as of this encounter (statuses as of 09/29/2024) Medications Cholecalciferol 25 MCG (1000 UT) Oral [...] as of this encounter (statuses as of 09/29/2024) Active Problems Problem Noted Date Diagnosed Date [...] as of this encounter (statuses as of 09/29/2024) Resolved Problems Problem Noted Date Diagnosed Date [...] as of this encounter (statuses as of 09/29/2024) Immunizations Name Administration Dates Next Due PPD [...] Pebbles Polk RN documented in this encounter Plan of Treatment Upcoming Encounters Date Type Department Care Team (Late st Contact Info) Description 11/25/2024 1:00 PM EST Cardiac Studies Cardiac Studies, [facility] [address] [place] [address] 12/06/2024 2:30 PM EST Office Visit Cardiology, [facility] [address] [place] [address] Sebastian Santiago, [address] [place] [address] 01/30/2025 12:20 PM EDT Office [facility] [address] [place] [phone] Jenny Pressley MD [address] [place] [address] Health Maintenance Due Date Last Done Comments Pneumococcal Vaccine: 65+ Years (1 of 2 - PCV) 1961 Mammogram 1994 Cologuard 1999 Fecal Occult Blood Test 1999 Sigmoidoscopy 1999 Colonoscopy 06/24/2021 06/24/2016, 06/24/2016 Colorectal Cancer Screening 06/24/2021 Adult Wellness Visit 11/25/2023 11/25/2022 COVID-19 Vaccine ( - season) 2024 Influenza Vaccine (FLU shot) (#1) 2024 Depression Screening 2024 2023, 01/30/2015 (Declined) GFR 09/19/2025 09/19/2024, 03/06/2024, 12/26/2023, Additional history exists Albumin/Creatinine Ratio 05/18/2026 [...] Power of Attor kathy? No Care Teams Supervisor Asbestos Removal Relationship Specialty Start Date End Date Jenny Pressley MD [address] [facility] [place] [place] [address] PCP - General Internal Medicine 11/20/23 documented as of this encounter
--- OUTSIDE RECORDS SUMMARY | 2025-01-08 22:15 | External Medical Summary | Summary of Care ---
Author Name Unknown Organization [facility] Address [address] [place] [facility] [place] [address] Phone [phone] Care Team Providers Care Pad Hand Name Role Phone eJnny Pressley MD Primary Care Provider Encounter Details Date Type Department Care Team (Late st Contact Info) Description 06/29/2024 Telephone Nutrition & Weight Management, [facility] [address] [place] [address] Corrina Callahan PA-C [address] [place] [address] Allergies Active Allergy Reactions Criticality Noted Date [...] as of this encounter (statuses as of 09/28/2024) Medications Cholecalciferol 25 MCG (1000 UT) Oral [...] WITH FOOD.. 60 Tablet 3 4 Active documented as of this encounter (statuses as of 09/28/2024) Active Problems Problem Noted Date Diagnosed Date [...] as of this encounter (statuses as of 09/28/2024) Resolved Problems Problem Noted Date Diagnosed Date [...] as of this encounter (statuses as of 09/28/2024) Immunizations Name Administration Dates Next Due PPD [...] No 08/01/2024 Does the household have a [facility] source [facility] income? (Household - for [...] encounter Miscellaneous Notes * Telephone Encounter - Francoise Camacho OSA - 06/29/2024 9:57 AM EDT Left message asking pt to call back to schedule the following: BME in July documented in this encounter Plan of Treatment Upcoming Encounters Date Type Department Care Team (Late st Contact Info) Description 11/25/2024 1:00 PM EST Cardiac Studies Cardiac Studies, [facility] [address] [place] [place] [address] 12/06/2024 2:30 PM EST Office Visit Cardiology, [facility] [address] [place] [address] Sebastian Santiago, [address] [place] [address] 01/30/2025 12:20 PM EDT Office Visit [facility] Edwige Morris [address] [phone] Jenny Pressley MD [address] [facility] [place] [address] Health Maintenance Due Date Last Done Comments [...] Power of Attor kathy? No Care Teams Pad Hand Relationship Specialty Start Date End Date Jenny Pressley MD [address] [place] [facility] [place] [facility] [place] [address] PCP - General Internal Medicine 11/20/23 documented as of this encounter
--- OUTSIDE RECORDS SUMMARY | 2025-01-08 22:15 | External Medical Summary | Summary of Care ---
Author Name Unknown Organization [facility] Address [address] [place] [address] Phone [phone] Care Team Providers Care Offshoring Manager Name Role Phone Jenny Pressley MD Primary Care Provider [phone] Encounter Details Date Type Department Care Team (Late st Contact Info) Description 09/28/2024 Result Scan Unspecified Department <No scans attached> Allergies Active Allergy Reactions Criticality Noted Date [...] 1:00 PM EST Cardiac Studies Cardiac Studies, [facility] [address] [place] [address] 12/06/2024 2:30 PM EST Office Visit Cardiology, [facility] [address] [place] [address] Sebastian Santiago, [address] [place] [address] 01/30/2025 12:20 PM EDT [facility] [address] [facility] [place] [phone] Jenny Pressley MD [address] [facility] [place] [place] [address] Health Maintenance Due Date Last Done Comments Pneumococcal Vaccine: 65+ Years (1 of 2 - PCV) 1960 Mammogram 1994 Cologuard 1999 Fecal Occult Blood Test 1999 Sigmoidoscopy 1999 Colonoscopy 06/24/2021 06/24/2016, 06/24/2016 Colorectal Cancer Screening 06/24/2021 Adult Wellness Visit 11/25/2023 11/25/2022 COVID-19 Vaccine ( - season) 2024 Influenza Vaccine (FLU shot) (#1) 2024 Depression Screening 2024 2023, 01/30/2015 (Declined) GFR 09/19/2025 09/19/2024, 0306/2024, 12/26/2023, Additional history exists Albumin/Creatinine Ratio 05/18/2026 [...] Procedure Name Priority Date/Time Associated Diagnosis Comments CARDIOLOGY SCANNED RESULT 09/28/2024 ECHOCARDIOLOGY SCANNED RESULT 09/28/2024 documented in this encounter Results * ECHOCARDIOLOGY SCANNED RESULT (09/28/2024) 09/28/2024 us No Physician Data Unknown ECHOCARDIOLOGY Final Result * CARDIOLOGY SCANNED RESULT (09/28/2024) 09/28/2024 us No Physician Data Unknown OTHER Final Result documented in this encounter Advance Directives * [...] Power of Attor kathy? No Care Teams Offshoring Manager Relationship Specialty Start Date End Date Jenny Pressley MD [address] [place] [facility] [place] [address] PCP - General Internal Medicine 11/20/23 documented as of this encounter
--- NOTE | 2025-01-08 22:33 | Emergency Department Note ---
ED Visit Note I was consulted by the Advanced Practice Provider, Meghana Treviño PA-C. I performed a substantive portion of the visit. This includes aspects of: History: Patient is a 68-year-old female presenting with shortness of breath and abdominal discomfort. Patient reports she feels like she has been in and out of A-fib for the last week. Patient has history of A-fib and is status post 2 ablations but she is no longer on Eliquis. She denies any fevers. Currently complaining of abdominal pain with her shortness of breath. MDM: - Laboratory workup interpreted by myself showed normal WBC; stable electrolytes; normal troponin; elevated BNP (654); normal TSH - CXR image reviewed by myself negative for pneumonia, per my interpretation. Noted cardiomegaly. - Patient given 0.5 mg IV ativan for anxiety and given 5 mg IV Lopressor on arrival to the ER. - Given that she is not anticoagulated and in A-fib with RVR, she was pretreated with 25 mg IV Benadryl and 125 mg IV Solu-Medrol to obtain CT imaging with contrast for CTA chest and CT abdomen/pelvis scans. - Patient given a second dose of 5 mg IV Lopressor and HR randing from 110-120 bpm. - Patient will be admitted to inpatient hospitalist service for her A-fib with RVR. .
[2025-01-08] MEDS: METOPROLOL TARTRATE 1 MG/ML VIAL IV STA ×2 (22:35→23:19)
[2025-01-08] MEDS: LORazepam 2 MG/1 ML VIAL IV STA (22:35)
[2025-01-08] MEDS: LORazepam 2 MG/1 ML VIAL ONE (22:35)
[2025-01-08] MEDS: diphenhydrAMINE 50 MG/ML VIAL IV STA (22:35)
--- NOTE | 2025-01-08 22:42 | Emergency Department Note ---
History of Present Illness General Chief complaint: Cardiac Assessment Stated complaint: AFIB, SOB Time Seen by Provider: 01/08/25 22:14 History of Present Illness Maximum Pain Intensity: 4 The patient is a 68-year-old female with a past medical history of rapid A-fib s/p 2 ablations, one 8 years ago, one in October 2023, acute on chronic CHFEF 20% 10/21/2023, dilated cardiomyopathy, HTN, chronic sinusitis/mastoiditis, LAYLA, diffuse large B-cell lymphoma, severe WILL on BiPAP who presents to the ED on 09/26/24 with complaints of shortness of breath with abdominal discomfort. Patient states has been and out of A-fib for the past week. She is no longer on Eliquis. Patient denies fever, chills, cough, congestion, vomiting, diarrhea, flulike illness. No numbness or tingling. Home Medications Medication Instructions Recorded Confirmed Type Xanax 0.5 mg PO HS PRN Insomnia 01/09/25 01/09/25 History bumetanide 1 mg tablet 1 mg PO DAILY 01/09/25 01/09/25 History potassium chloride 10 mEq 10 meq PO DAILY 01/09/25 01/09/25 History tablet,extended release spironolactone 25 mg tablet 25 mg PO DAILY 01/09/25 01/09/25 History Allergies Allergy/AdvReac Type Severity Reaction Status Date / Time lisinopril Allergy Severe Throat Verified 09/26/24 14:21 tightness Iodinated Contrast Media Allergy Intermediate Rash Verified 09/26/24 14:21 citalopram Allergy Mild Rash Verified 09/26/24 14:21 Beta-Blockers AdvReac Intermediate Increase Verified 09/26/24 14:21 (Beta-Adrenergic Bloc of symptoms/conditions digoxin AdvReac Unknown "Did not Verified 09/26/24 14:21 work" Past Med/Surg History Problem List (Updated 01/09/25 @ 00:29 by Mya Thomas MD) Acute dyspnea (Acute) Abdominal pain (Acute) Elevated brain natriuretic peptide (BNP) level (Acute) Atrial fibrillation with rapid ventricular response (Acute) NSVT (nonsustained ventricular tachycardia) Cardiac left ventricular ejection fraction 10-20 percent NYHA class 3 heart failure with reduced ejection fraction (Acute) Sinus congestion (Acute) Dilated cardiomyopathy Fibromyalgia Diarrhea HFrEF (heart failure with reduced ejection fraction) Sleep apnea BIPAP (compliant) Depression Hyperlipidemia Hypertension WILL on CPAP Left knee DJD Status post total right knee replacement Atrial fibrillation (Chronic) History of cardioversion (Chronic) Sleep apnea (Chronic) History of hyperlipidemia (Chronic) Hypertension (Chronic 11/23/14) Atrial fibrillation with rapid ventricular response (Acute 11/23/14) Depressive disorder (Chronic) Osteoarthritis (Chronic) Chronic mastoiditis (Chronic) History of nasal septoplasty (Chronic) Status post tonsillectomy and adenoidectomy (Chronic) History of tympanostomy tube placement (Chronic) History of tympanoplasty (Chronic) History of mastoidectomy (Chronic) History of partial thyroidectomy (Chronic) Atrial fibrillation with rapid ventricular response (Acute) Hypoxia (Acute) Respiratory failure (Acute 12/11/14) Septic arthritis of knee, bilateral Medical History Shortness of breath Diarrhea Obesity Encounter for pre-operative examination History of COVID-19 Dx 09/2021, symptoms resolved except residual taste/smell impairment Osteoarthritis Cancer Lymphoma (2016) s/p treatment in [place], PCP monitors Atrial fibrillation Follows with C/Dr. Medina Surgical History History of tonsillectomy and adenoidectomy History of ear surgery LEFT X 2-RIGHT X 1-MASTOIDECTOMY/TYMPANOPLASTY History of sinus surgery History of section History of thyroidectomy History of esophagogastroduodenoscopy (EGD) History of colon resection 2015 FOR BLEEDING TUMOR History of colonoscopy History of cardioversion ~2014 Family History Other Hypertension Social History Smoking Status: Never smoker Second Hand Exposure: Yes (FATHER SMOKED); Do You Dip or Chew Tobacco: No; Hx Alcohol Use: No Hx Substance Use: No Preferred Language: Bahraini Communication Ability: Effective 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: No Beliefs That Will Affect Care: None marital status: Single Current Living Situation: Family Current Living Situation Comment: lives in double house with son current occupational status: disabled Feels Safe at Home: Yes Assistive Devices: None Review of Systems A total of 10 systems reviewed and were otherwise negative Physical Exam Vital Signs Vital Signs - 24 hr 01/08/25 22:11 01/08/25 22:19 01/08/25 22:24 Temperature 36.2 C L Temperature Source Temporal Artery Scan Pulse Rate 104 H 167 H Pulse Rate [Apical] Respiratory Rate 18 Respiratory Effort / Characteristics Non-Labored Spontaneous Short of Breath SOB on Exertion Respiratory Depth Normal Respiratory Pattern Blood Pressure 145/94 H Blood Pressure [Right Arm] Blood Pressure Mean 111 Blood Pressure Mean [Right Arm] Pulse Oximetry 95 Oxygen Delivery Method Room Air Sepsis Recent Fever Within 48 Hours No Sepsis New/Unexplained Change in Mental Status No Sepsis Action Taken by Nursing No Action Required 01/08/25 22:35 01/08/25 23:00 01/08/25 23:07 Temperature Temperature Source Pulse Rate 143 H 130 H Pulse Rate [Apical] 127 H Respiratory Rate 18 Respiratory Effort / Characteristics Non-Labored Respiratory Depth Normal Respiratory Pattern Regular Blood Pressure 122/87 117/80 Blood Pressure [Right Arm] 117/80 Blood Pressure Mean Blood Pressure Mean [Right Arm] 92 Pulse Oximetry 92 Oxygen Delivery Method Room Air Sepsis Recent Fever Within 48 Hours Sepsis New/Unexplained Change in Mental Status Sepsis Action Taken by Nursing 01/08/25 23:19 01/08/25 23:41 01/09/25 00:23 Temperature Temperature Source Pulse Rate 148 H 122 H 120 H Pulse Rate [Apical] Respiratory Rate Respiratory Effort / Characteristics Respiratory Depth Respiratory Pattern Blood Pressure 121/88 122/91 Blood Pressure [Right Arm] Blood Pressure Mean Blood Pressure Mean [Right Arm] Pulse Oximetry Oxygen Delivery Method Sepsis Recent Fever Within 48 Hours Sepsis New/Unexplained Change in Mental Status Sepsis Action Taken by Nursing 01/09/25 00:48 Temperature Temperature Source Pulse Rate 115 H Pulse Rate [Apical] Respiratory Rate Respiratory Effort / Characteristics Respiratory Depth Respiratory Pattern Blood Pressure 119/85 Blood Pressure [Right Arm] Blood Pressure Mean Blood Pressure Mean [Right Arm] Pulse Oximetry Oxygen Delivery Method Sepsis Recent Fever Within 48 Hours Sepsis New/Unexplained Change in Mental Status Sepsis Action Taken by Nursing VITALS: Vitals are noted on the nurse's note and reviewed by myself. Vital signs tachycardic. GENERAL: Pleasant female, in no acute distress, nondiaphoretic, well-developed well-nourished. SKIN: The skin was without rashes, erythema, edema, or bruising. There is no tenting of the skin. Capillary reflex less than 2 seconds. HEAD: Normocephalic atraumatic. EARS: External auditory canals clear EYES: Pupils equal round and reactive to light and accommodation. Conjunctivae without injection, sclerae without icterus. Extraocular movements intact. NOSE: Patent, no discharge. MOUTH: Mucous membranes moist. Pharynx without erythema or exudate. Uvula midline. Airway patent. Tongue does not deviate. NECK: Supple without nuchal rigidity. No lymphadenopathy. No thyromegaly. Cervical spine is nontender. No JVD. HEART: Tachycardic irregularly irregular LUNGS: Clear to auscultation bilaterally without wheezes, rales or rhonchi. No retractions or accessory muscle use. ABDOMEN: Positive bowel sounds x 4. Normal tympanic percussion. Soft, nontender, without masses or organomegaly. Muniz sign negative. No guarding or rebound tenderness. No CVA tenderness MUSCULOSKELETAL: No muscle atrophy, erythema, noted. NEURO: Patient was alert and oriented to person place and time. Normal sensation to light and sharp touch. No focal neurological deficits. Course Administered Medications Discontinued Medications Diphenhydramine HCl (Diphenhydramine 50 Mg/Ml Vial) 25 mg IV NOW STA Stop: 01/08/25 22:26 Last Admin: 01/08/25 22:35 Dose: 25 mg Documented By: BENITEZ Ioversol (Optiray 320 125ml) 119 ml IV ONCE ONE Stop: 01/08/25 22:58 Last Admin: 01/08/25 22:58 Dose: 119 ml Documented By: MANJULA Lorazepam (Lorazepam 2 Mg/1 Ml Vial) Confirm Administered Dose 2 mg .ROUTE .STK- MED ONE Stop: 01/08/25 22:33 Last Admin: 01/08/25 22:35 Dose: Not Given Documented By: BENITEZ Lorazepam (Lorazepam 2 Mg/1 Ml Vial) 0.5 mg IV NOW STA Stop: 01/08/25 22:34 Last Admin: 01/08/25 22:35 Dose: 0.5 mg Documented By: BENITEZ Methylprednisolone (Methylprednisolone 125 Mg/2 Ml Vial) 125 mg IV NOW STA Stop: 01/08/25 22:37 Last Admin: 01/08/25 23:19 Dose: 125 mg Documented By: ELEUTERIO Metoprolol Tartrate (Metoprolol Tartrate 1 Mg/Ml Vial) 5 mg IV NOW STA Stop: 01/08/25 22:26 Last Admin: 01/08/25 22:35 Dose: 5 mg Documented By: BENITEZ Metoprolol Tartrate (Metoprolol Tartrate 1 Mg/Ml Vial) 5 mg IV NOW STA Stop: 01/08/25 22:34 Last Admin: 01/08/25 23:19 Dose: 5 mg Documented By: ELEUTERIO Metoprolol Tartrate (Metoprolol Tartrate 1 Mg/Ml Vial) 5 mg IV NOW STA Stop: 01/09/25 00:14 Last Admin: 01/09/25 00:23 Dose: 5 mg Documented By: EVAN Metoprolol Tartrate (Metoprolol Tartrate 25 Mg Tab) 12.5 mg PO NOW STA Stop: 01/09/25 00:48 Last Admin: 01/09/25 01:03 Dose: 12.5 mg Documented By: EVAN Critical Care Time Critical Care Time: Yes Total Critical Care Time: 35 I have personally spent 35 minutes of critical care time in the direct management of this patient. This includes bedside care, interpretation of diagnostic studies, and testing, discussion with consultants, patient, and family members, and other required patient management activities. This 35 minutes is in excess of all separately billable procedures. Medical Decision Making Medical Records Attestation: I reviewed the patient's medical records. Home Medications Current Medication List: was personally reviewed by me Laboratory Data Attestation: I reviewed the patient's lab results. 01/08/25 22:24 01/08/25 22:24 Lab Results 01/08/25 01/08/25 Range/Units 22:24 22:30 WBC 8.31 (4.8-10.8) K/ul RBC 5.21 (4.20-5.40) M/uL Hgb 15.9 (12.0-16.0) g/dl POC Hgb 16.0 (12.0-16.0) g/dl Hct 47.7 H (37.0-47.0) % POC Hct 47 (37-47) % MCV 91.6 (80.0-100.0) fL MCH 30.5 (25.0-34.0) pg MCHC 33.3 (32.0-36.0) g/dL RDW Std Deviation 45.8 (36.4-46.3) fL RDW Coeff of Stevan 13.6 (11.5-14.5) % Plt Count 293 (130-400) K/uL MPV 10.0 (9.4-12.4) fL Immature Gran % (Auto) 0.6 % Neut % (Auto) 58.9 % Lymph % (Auto) 27.7 % [place] % (Auto) 11.1 % Eos % (Auto) 1.3 % Baso % (Auto) 0.4 % Neut # (Auto) 4.90 (1.40-6.50) K/uL Lymph # (Auto) 2.30 (1.20-3.40) K/uL [place] # (Auto) 0.92 H (0.11-0.59) K/uL Eos # (Auto) 0.11 (0.00-0.50) K/uL Baso # (Auto) 0.03 (0.00-0.20) K/uL Immature Gran # (Auto) 0.05 (0.01-0.20) K/uL POC Sodium 139 (135-144) mmol/L Sodium 136 (136-145) mmol/L POC Potassium 4.3 (3.3-5.0) mmol/L Potassium 4.3 (3.5-5.1) mmol/L POC Chloride 103 (101-112) mmol/L Chloride 102 (98-107) mmol/L Carbon Dioxide 27 (21-32) mmol/L POC Total CO2 25 (24-31) mmol/L Anion Gap 7 (3-11) POC Anion Gap 18.0 (16-25) mmol/L POC BUN 20 H (7-18) mg/dl BUN 20 (6-23) mg/dl Creatinine 0.91 (0.6-1.2) mg/dl POC Creatinine 1.1 (0.6-1.3) mg/dl Est Cr Clr Drug Dosing Not Reportable eGFR 67.87 BUN/Creatinine Ratio 22.0 H (10-20) Glucose 112 H (70-99(Fasting)) mg/dl POC Glucose (other) 111 H (70-99) mg/dl Calcium 10.2 (8.6-10.3) mg/dl POC Ioniz Calcium [place] 1.19 (1.12-1.32) mmol/l Magnesium 2.0 (1.7-2.4) mg/dl Total Bilirubin 0.9 (0.2-1.0) mg/dl AST 20 (13-39) U/L ALT 16 (7-52) U/L Alkaline Phosphatase 83 (34-104) U/L Troponin I High Sens 11.4 (0-14) pg/ml B-Natriuretic Peptide 654 H (0-100) pg/ml Total Protein 8.2 (6.0-8.3) gm/dl Albumin 4.6 (3.4-5.0) gm/dl Globulin 3.6 (2.5-4.0) gm/dl Albumin/Globulin Ratio 1.3 (0.9-2) TSH 2.063 (0.300-4.500) uIu/ml Imaging Data Attestation: I personally reviewed and interpreted this imaging study as follows: Radiologist's Impression: Abdomen/Pelvis CT 01/08/25 22:25 Exam(s): CT ABDOMEN + PELVIS With Contrast IV Amt: 119ml optiray 320 EXAM: CT Abdomen and Pelvis With Intravenous Contrast CLINICAL HISTORY: mid abd pain, Afib not anticoag. TECHNIQUE: Axial computed tomography images of the abdomen and pelvis with intravenous contrast. CTDI is 28.14 mGy and DLP is 2375.8 mGy-cm. Automated exposure control was utilized for the study. A dose lowering technique was utilized adhering to the principles of ALARA. CONTRAST: Patient received 119ml optiray 320 of IV contrast COMPARISON: No relevant prior studies available. FINDINGS: Lung bases: Cardiomegaly. No mass. No consolidation. ABDOMEN: Liver: Unremarkable. No mass. Gallbladder and bile ducts: Multiple small gallstones within the gallbladder. Gallbladder otherwise unremarkable. No ductal dilation. Pancreas: Unremarkable. No mass. No ductal dilation. Spleen: Unremarkable. No splenomegaly. Adrenals: Unremarkable. No mass. Kidneys and ureters: Small bilateral upper lobe cortical cysts. No obstructive uropathy. No obstructing renal or ureteral calculi. No hydronephrosis or hydroureter. Stomach and bowel: No obstruction or ileus. Nonobstructing small bowel containing left ventral lower pelvic hernia to the left of midline. Scattered left and sigmoid colon diverticuli without evidence for diverticulitis. PELVIS: Appendix: No findings to suggest acute appendicitis. Bladder: Contracted. No mass. Reproductive: Atrophic uterus. Ovaries not distinctly visualized. ABDOMEN and PELVIS: Intraperitoneal space: No free air. No free fluid. Bones/joints: No acute fracture. Degenerative changes of the spine. Soft tissues: Unremarkable. Vasculature: Atherosclerotic vascular calcifications. No abdominal aortic aneurysm. Lymph nodes: Unremarkable. No enlarged lymph nodes. IMPRESSION: Nonobstructing small bowel containing lower pelvic ventral hernia to the left of midline. Scattered left and sigmoid colon diverticuli without evidence for diverticulitis. Cholelithiasis. No evidence for acute cholecystitis or biliary obstruction. Senescent changes. Electronically signed by: Matthew Armas M.D. 01/09/25 01:25 AM Chest CTA 01/08/25 22:25 Exam(s): CTA CHEST IV Amt: 119ml optiray 320 EXAM: CT Angiography Chest With Intravenous Contrast CLINICAL HISTORY: PE. TECHNIQUE: Axial computed tomographic angiography images of the chest with intravenous contrast. CTDI is 28.14 mGy and DLP is 2375.8 mGy-cm. Automated exposure control was utilized for the study. A dose lowering technique was utilized adhering to the principles of ALARA. 3D and MIP reconstructed images were created and reviewed. COMPARISON: CXR 01-08-2025 FINDINGS: Pulmonary arteries: No pulmonary embolism. Mild prominent pulmonary artery suggesting pulmonary artery hypertension. Aorta: No thoracic aortic aneurysm or dissection. Lungs: Mild bilateral dependent atelectasis. No consolidation. Two adjacent 4 mm right middle lobe noncalcified nodular densities. Pleural space: No pleural effusion. No pneumothorax. Heart: Moderate cardiomegaly. No pericardial effusion. No evidence of RV dysfunction. Coronary artery calcifications. Bones/joints: No acute fracture. Degenerative changes of the spine and shoulders. Soft tissues: Unremarkable. Lymph nodes: Unremarkable. No enlarged lymph nodes. IMPRESSION: No pulmonary embolism. Prominent pulmonary arteries suggesting pulmonary artery hypertension. Mild dependent atelectasis. 4 mm right middle lobe noncalcified nodular densities. Fleischner Society Guidelines suggest no follow-up is necessary for patients with a low or high risk of malignancy. Cardiomegaly. Senescent changes. Electronically signed by: Matthew Armas M.D. 01/09/25 01:01 AM [facility] Narrative Prior records/ancillary studies reviewed and summarized above. Nursing notes reviewed. Additional history obtained from nursing. The patient's history was concerning for shortness of breath, A-fib and abdominal discomfort. Differential diagnosis: Etiologies such as A-fib with RVR, cardiac, pulmonary, metabolic, infection, hypo/hyperglycemia, electrolyte abnormalities, cardiac sources, intracerebral event, toxicologic, neurologic, as well as others were entertained. Physical examination: As above. ER treatment provided: IV Lock An order was placed for continuous cardiac monitoring. The monitor shows a rate of 60-200 with a A-fib rhythm per my interpretation. Lopressor x 3, Ativan, Benadryl, Solu-Medrol On reassessment the patient felt better. Diagnostics interpretation by me: ECG: Ordered for tachycardia EKG: Irregularly irregular rate of 159. Impression A-fib with RVR independently interpreted by myself The labs Independently Interpreted by myself revealed no worrisome leukocytosis, negative troponin Elevated BNP Imaging studies: Imaging was reviewed and read by radiology Consultation: A consultation was placed with the hospitalist. The case was discussed and diagnostics were reviewed. The patient was evaluated in the ER for further treatment. Exam and history seem consistent with A-fib with RVR. Patient was given a few rounds of Lopressor IV. Her heart rate did improve. Imaging was reviewed and read by radiology. Medicine was consulted case discussed. Patient be admitted to the medical service. She was reassessed multiple times. Vital signs did improve. By the evaluation outlined above emergent etiologies such as infection, electrolyte abnormalities, intracerebral event, toxologic, neurologic, abnormalities blood glucose, metabolic, as well as others were deemed relatively unlikely. The pt informed about the findings as listed above. All questions were answered and pleased with the treatment. The chart was completed utilizing [employer] Speech voice recognition software. Grammatical errors, random word insertions, pronoun errors, and incomplete sentences are an occassional consequence of this system due to software limitations, ambient noise, and hardware issues. Any formal questions or concerns about the content, text, or information contained within the body of this dictation should be directly addressed to the physician accounting assistant for clarification. Impression & Plan Atrial fibrillation with rapid ventricular response, Elevated brain natriuretic peptide (BNP) level, Abdominal pain, Acute dyspnea Discharge Plan Visit Data Chief Complaint: Cardiac Assessment Stated Complaint: AFIB, SOB ED Provider: Mya Thomas ED Midlevel Provider: Meghana Treviño Discharge Problem: Atrial fibrillation with rapid ventricular response, Elevated brain natriuretic peptide (BNP) level, Abdominal pain, Acute dyspnea Forms Stand Alone Forms: My [facility] Prescriptions Prescriptions: No Action potassium chloride 10 mEq tablet extended release 10 meq PO DAILY Rx Instructions: Takes extra tablet if taking extra bumex spironolactone 25 mg tablet 25 mg PO DAILY bumetanide 1 mg tablet 1 mg PO DAILY Rx Instructions: takes extra tablet as needed for weight gain Xanax 0.5 mg 0.5 mg PO HS PRN (Reason: Insomnia) Referrals Referrals: Jenny Pressley MD [Outside Practitioners] -
[2025-01-08 22:43] LABS: iSTAT Creatinine 1.1 mg/dl (0.6-1.3); iSTAT Ionized Calcium 1.19 mmol/l (1.12-1.32); iSTAT Potassium 4.3 mmol/L (3.3-5.0)
[2025-01-08 22:58] LABS: Basophils # (auto) 0.03 K/uL (0.00-0.20); Basophils % (auto) 0.4 %; Eosinophils # (auto) 0.11 K/uL (0.00-0.50); Eosinophils % (auto) 1.3 %; Hematocrit (blood only) 47.7 % (37.0-47.0); Hemoglobin 15.9 g/dl (12.0-16.0); Immature Granulocytes # (auto) 0.05 K/uL (0.01-0.20); Immature Granulocytes % (auto) 0.6 %; Lymphocytes % (auto) 27.7 %; Mean Corpuscular Hemoglobin 30.5 pg (25.0-34.0); Mean Corpuscular Hgb Conc 33.3 g/dL (32.0-36.0); Mean Corpuscular Volume 91.6 fL (80.0-100.0); Monocytes # (auto) 0.92 K/uL (0.11-0.59); Monocytes % (auto) 11.1 %; Neutrophils % (auto) 58.9 %; Platelet Count 293 K/uL (130-400); RDW Coefficient of Variation 13.6 % (11.5-14.5); RDW Standard Deviation 45.8 fL (36.4-46.3); Red Blood Count 5.21 M/uL (4.20-5.40); White Blood Count 8.31 K/ul (4.8-10.8)
[2025-01-08] MEDS: OPTIRAY 320 125ml IV ONE (22:58)
[2025-01-08 23:08] LABS: Alanine Aminotransferase 16 U/L (7-52); Albumin Globulin Ratio 1.3 (0.9-2); Albumin Level 4.6 gm/dl (3.4-5.0); Alkaline Phosphatase 83 U/L (34-104); Anion Gap 7 (3-11); Aspartate Aminotransferase 20 U/L (13-39); Bilirubin,Total 0.9 mg/dl (0.2-1.0); Blood Urea Nitrogen 20 mg/dl (6-23); Calcium 10.2 mg/dl (8.6-10.3); Carbon Dioxide 27 mmol/L (21-32); Chloride 102 mmol/L (98-107); Globulin 3.6 gm/dl (2.5-4.0); Glucose 112 mg/dl (70-99(Fasting)); Potassium 4.3 mmol/L (3.5-5.1); Sodium 136 mmol/L (136-145); Total Protein 8.2 gm/dl (6.0-8.3)
[2025-01-08 23:14] LABS: Troponin I High Sensitivity 11.4 pg/ml (0-14)
[2025-01-08] MEDS: methylPREDNISolone 125 MG/2 ML VIAL IV STA (23:19)
[2025-01-08 23:24] LABS: Thyroid Stimulating Hormone 2.063 uIu/ml (0.300-4.500)
[2025-01-09] MEDS: METOPROLOL TARTRATE 1 MG/ML VIAL IV STA (00:23)
--- NOTE | 2025-01-09 01:02 | CT Scan Report ---
Exam(s): CTA CHEST IV Amt: 119ml optiray 320 EXAM: CT Angiography Chest With Intravenous Contrast CLINICAL HISTORY: PE. TECHNIQUE: Axial computed tomographic angiography images of the chest with intravenous contrast. CTDI is 28.14 mGy and DLP is 2375.8 mGy-cm. Automated exposure control was utilized for the study. A dose lowering technique was utilized adhering to the principles of ALARA. 3D and MIP reconstructed images were created and reviewed. COMPARISON: CXR 01-08-2025 FINDINGS: Pulmonary arteries: No pulmonary embolism. Mild prominent pulmonary artery suggesting pulmonary artery hypertension. Aorta: No thoracic aortic aneurysm or dissection. Lungs: Mild bilateral dependent atelectasis. No consolidation. Two adjacent 4 mm right middle lobe noncalcified nodular densities. Pleural space: No pleural effusion. No pneumothorax. Heart: Moderate cardiomegaly. No pericardial effusion. No evidence of RV dysfunction. Coronary artery calcifications. Bones/joints: No acute fracture. Degenerative changes of the spine and shoulders. Soft tissues: Unremarkable. Lymph nodes: Unremarkable. No enlarged lymph nodes. IMPRESSION: No pulmonary embolism. Prominent pulmonary arteries suggesting pulmonary artery hypertension. Mild dependent atelectasis. 4 mm right middle lobe noncalcified nodular densities. Fleischner Society Guidelines suggest no follow-up is necessary for patients with a low or high risk of malignancy. Cardiomegaly. Senescent changes. Electronically signed by: Matthew Armas M.D. 01/09/25 01:01 AM
[2025-01-09] MEDS: METOPROLOL TARTRATE 25 MG TAB PO STA (01:03)
--- NOTE | 2025-01-09 01:27 | CT Scan Report ---
Exam(s): CT ABDOMEN + PELVIS With Contrast IV Amt: 119ml optiray 320 EXAM: CT Abdomen and Pelvis With Intravenous Contrast CLINICAL HISTORY: mid abd pain, Afib not anticoag. TECHNIQUE: Axial computed tomography images of the abdomen and pelvis with intravenous contrast. CTDI is 28.14 mGy and DLP is 2375.8 mGy-cm. Automated exposure control was utilized for the study. A dose lowering technique was utilized adhering to the principles of ALARA. CONTRAST: Patient received 119ml optiray 320 of IV contrast COMPARISON: No relevant prior studies available. FINDINGS: Lung bases: Cardiomegaly. No mass. No consolidation. ABDOMEN: Liver: Unremarkable. No mass. Gallbladder and bile ducts: Multiple small gallstones within the gallbladder. Gallbladder otherwise unremarkable. No ductal dilation. Pancreas: Unremarkable. No mass. No ductal dilation. Spleen: Unremarkable. No splenomegaly. Adrenals: Unremarkable. No mass. Kidneys and ureters: Small bilateral upper lobe cortical cysts. No obstructive uropathy. No obstructing renal or ureteral calculi. No hydronephrosis or hydroureter. Stomach and bowel: No obstruction or ileus. Nonobstructing small bowel containing left ventral lower pelvic hernia to the left of midline. Scattered left and sigmoid colon diverticuli without evidence for diverticulitis. PELVIS: Appendix: No findings to suggest acute appendicitis. Bladder: Contracted. No mass. Reproductive: Atrophic uterus. Ovaries not distinctly visualized. ABDOMEN and PELVIS: Intraperitoneal space: No free air. No free fluid. Bones/joints: No acute fracture. Degenerative changes of the spine. Soft tissues: Unremarkable. Vasculature: Atherosclerotic vascular calcifications. No abdominal aortic aneurysm. Lymph nodes: Unremarkable. No enlarged lymph nodes. IMPRESSION: Nonobstructing small bowel containing lower pelvic ventral hernia to the left of midline. Scattered left and sigmoid colon diverticuli without evidence for diverticulitis. Cholelithiasis. No evidence for acute cholecystitis or biliary obstruction. Senescent changes. Electronically signed by: Matthew Armas M.D. 01/09/25 01:25 AM
--- NOTE | 2025-01-09 01:33 | History & Physical Report ---
Date of Service January 09, 2025 Assessment & Plan (1) Atrial fibrillation with rapid ventricular response: Plan: 69-year-old female with past medical history significant for obstructive sleep apnea on BiPAP, difficult intubation, chronic allergic rhinitis, history of atrial fibrillation, dilated cardiomyopathy, chronic CHF with reduced ejection fraction and diastolic dysfunction, hypertension, pulmonary hypertension, dilatation of colon, morbid obesity, iron deficiency anemia due to chronic blood loss, history of diffuse large B-cell lymphoma, presents with rapid A-fib. Patient says since last she is feeling palpitations on and off and today they are persistent. She is feeling short of breath and some tightness in her chest. Also some abdominal discomfort. She is also having some sweating. Denies headache. No dizziness. Vision is okay. No runny nose or sore throat. No cough. No fevers. No nausea. Normal bowel and bladder movements. Patient says she is no longer on amiodarone. Few months back she also stopped metoprolol because her blood pressure was running low. Says she also stopped Eliquis because being in regular rhythm. In September 2024 and she was admitted for rapid A-fib and was status post cardioversion. She had a ablation done in 2014 and also in October 2023. A-fib with rapid ventricular response Currently patient no longer on amiodarone and metoprolol and Eliquis History of cardioversion. History of ablation Received IV Lopressor 5 mg x 3 in ER Rates are better controlled now Will give p.o. Lopressor 12.5 mg 1 dose now Start IV heparin Continue with Lopressor p.o. 25 twice daily IV Lopressor as needed N.p.o. for now CTA chest no acute findings Follow echo Telemetry Cardiology consult in a.m. for further recommendations History of sleep apnea On BiPAP nightly Chronic systolic and diastolic CHF Echo in September 2024 EF 25 to 30% Continue home Bumex Aldactone and potassium supplement Monitor for volume overload Morbid obesity Counseling 4 mm right medial lung nodule On CT scan Needs follow-up Abdominal discomfort CT scan no acute findings CT scan shows cholelithiasis and nonobstructive pelvic ventral hernia DVT prophylaxis IV heparin Disposition Telemetry Full code. History of Present Illness Chief Complaint: Rapid A-fib Primary Care Provider: NO PCP 69-year-old female with past medical history significant for obstructive sleep apnea on BiPAP, difficult intubation, chronic allergic rhinitis, history of atrial fibrillation, dilated cardiomyopathy, chronic CHF with reduced ejection fraction and diastolic dysfunction, hypertension, pulmonary hypertension, dilatation of colon, morbid obesity, iron deficiency anemia due to chronic blood loss, history of diffuse large B-cell lymphoma, presents with rapid A-fib. Patient says since last she is feeling palpitations on and off and today they are persistent. She is feeling short of breath and some tightness in her chest. Also some abdominal discomfort. She is also having some sweating. Denies headache. No dizziness. Vision is okay. No runny nose or sore throat. No cough. No fevers. No nausea. Normal bowel and bladder movements. Patient says she is no longer on amiodarone. Few months back she also stopped metoprolol because her blood pressure was running low. Says she also stopped Eliquis because being in regular rhythm. In September 2024 and she was admitted for rapid A-fib and was status post cardioversion. She had a ablation done in 2014 and also in October 2023. Past medical history. As mentioned above. Past surgical history. . Colonoscopy and EGD. Exploratory laparotomy. Partial removal of thyroid lobe. Enterectomy with small bowel resection. Nasal septal repair. Tympanoplasty mastoidectomy without ossicular reconstruction Social history. No smoking. Alcohol rarely. No drug use. Family history. Father had UT. Mother had pacemaker. Hypertension Brother has A-fib. Sinus heart disorder. Allergies Allergy/AdvReac Type Severity Reaction Status Date / Time lisinopril Allergy Severe Throat Verified 09/26/24 14:21 tightness Iodinated Contrast Media Allergy Intermediate Rash Verified 09/26/24 14:21 citalopram Allergy Mild Rash Verified 09/26/24 14:21 Beta-Blockers AdvReac Intermediate Increase Verified 09/26/24 14:21 (Beta-Adrenergic Bloc of symptoms/conditions digoxin AdvReac Unknown "Did not Verified 09/26/24 14:21 work" Home Medications Medication Instructions Recorded Confirmed Type Xanax 0.5 mg PO HS PRN Insomnia 01/09/25 01/09/25 History bumetanide 1 mg tablet 1 mg PO DAILY 01/09/25 01/09/25 History potassium chloride 10 mEq 10 meq PO DAILY 01/09/25 01/09/25 History tablet,extended release spironolactone 25 mg tablet 25 mg PO DAILY 01/09/25 01/09/25 History Past Med/Surg History Problem List (Updated 01/09/25 @ 00:29 by Mya Thomas MD) Acute dyspnea (Acute) Abdominal pain (Acute) Elevated brain natriuretic peptide (BNP) level (Acute) Atrial fibrillation with rapid ventricular response (Acute) NSVT (nonsustained ventricular tachycardia) Cardiac left ventricular ejection fraction 10-20 percent NYHA class 3 heart failure with reduced ejection fraction (Acute) Sinus congestion (Acute) Dilated cardiomyopathy Fibromyalgia Diarrhea HFrEF (heart failure with reduced ejection fraction) Sleep apnea BIPAP (compliant) Depression Hyperlipidemia Hypertension WILL on CPAP Left knee DJD Status post total right knee replacement Atrial fibrillation (Chronic) History of cardioversion (Chronic) Sleep apnea (Chronic) History of hyperlipidemia (Chronic) Hypertension (Chronic 11/23/14) Atrial fibrillation with rapid ventricular response (Acute 11/23/14) Depressive disorder (Chronic) Osteoarthritis (Chronic) Chronic mastoiditis (Chronic) History of nasal septoplasty (Chronic) Status post tonsillectomy and adenoidectomy (Chronic) History of tympanostomy tube placement (Chronic) History of tympanoplasty (Chronic) History of mastoidectomy (Chronic) History of partial thyroidectomy (Chronic) Atrial fibrillation with rapid ventricular response (Acute) Hypoxia (Acute) Respiratory failure (Acute 12/11/14) Septic arthritis of knee, bilateral Medical History Shortness of breath Diarrhea Obesity Encounter for pre-operative examination History of COVID-19 Dx 09/2021, symptoms resolved except residual taste/smell impairment Osteoarthritis Cancer Lymphoma (2016) s/p treatment in [place], PCP monitors Atrial fibrillation Follows with C/Dr. Medina Surgical History History of tonsillectomy and adenoidectomy History of ear surgery LEFT X 2-RIGHT X 1-MASTOIDECTOMY/TYMPANOPLASTY History of sinus surgery History of section History of thyroidectomy History of esophagogastroduodenoscopy (EGD) History of colon resection 2015 FOR BLEEDING TUMOR History of colonoscopy History of cardioversion ~2014 Family History Other Hypertension Social History Smoking Status: Never smoker Second Hand Exposure: Yes (FATHER SMOKED); Do You Dip or Chew Tobacco: No; Hx Alcohol Use: No Hx Substance Use: No Preferred Language: Cuban Communication Ability: Effective Accountant Budget Required: No Beliefs That Will Affect Care: None marital status: Single Current Living Situation: Family Current Living Situation Comment: lives in double house with son current occupational status: disabled Feels Safe at Home: Yes Safety Concerns: Feels Safe At This Time Assistive Devices: BiPap Review of Systems Review of Systems: All systems reviewed & are unremarkable except as noted in HPI & below Physical Exam Physical Exam: General- Not in distress Head- atraumatic Eyes- PERRL. ENT- oropharynx clear Neck- supple, no JVD. Lungs- clear to auscultation no wheezing or crackles Heart- irregular rhythm;tachycardia, no murmur, no gallop. Abdomen- normal bowel sounds, soft, nontender, no distension Extremities- no pretibial edema, no erythema seen Neuro- alert, oriented PERRL, no facial palsy; no dysarthria; moves extremities Results & Data Results & Data Vital Signs (Past 12 Hours) Vital Signs Temp Pulse Pulse Resp BP BP Pulse Ox 01/09/25 00:48 115 H 119/85 01/09/25 00:23 120 H 122/91 01/08/25 23:41 122 H 121/88 01/08/25 23:19 148 H 01/08/25 23:07 127 H 18 117/80 92 01/08/25 23:00 130 H 117/80 01/08/25 22:35 143 H 122/87 01/08/25 22:24 167 H 01/08/25 22:11 36.2 C L 104 H 18 145/94 H 95 O2 Del Method 01/09/25 00:48 01/09/25 00:23 01/08/25 23:41 01/08/25 23:19 01/08/25 23:07 Room Air 01/08/25 23:00 01/08/25 22:35 01/08/25 22:24 01/08/25 22:11 Room Air Diagnostic Findings Laboratory Results WBC 8.31 K/ul (4.8-10.8) 01/08/25 22:24 RBC 5.21 M/uL (4.20-5.40) 01/08/25 22:24 Hgb 15.9 g/dl (12.0-16.0) 01/08/25 22: POC Hgb 16.0 g/dl (12.0-16.0) 01/08/25 22: Hct 47.7 % (37.0-47.0) H 01/08/25: POC Hct 47 % (37-47) 01/08/25 22: MCV 91.6 fL (80.0-100.0) 01/08/25: MCH 30.5 pg (25.0-34.0) 01/08/25: MCHC 33.3 g/dL (32.0-36.0) 01/08/25: RDW Std Deviation 45.8 fL (36.4-46.3) 01/08/25: RDW Coeff of Stevan 13.6 % (11.5-14.5) 01/08/25 Plt Count 293 K/uL (130-400) 01/08/25: MPV 10.0 fL (9.4-12.4) 01/08/25: Immature Gran % (Auto) 0.6 % 01/08/25: Neut % (Auto) 58.9 % 01/08/25: Lymph % (Auto) 27.7 % 01/08/25: Lucas % (Auto) 11.1 % 01/08/25: Eos % (Auto) 1.3 % 01/08/25: Baso % (Auto) 0.4 % 01/08/25: Neut # (Auto) 4.90 K/uL (1.40-6.50) 01/08/25: Lymph # (Auto) 2.30 K/uL (1.20-3.40) 01/08/25: Lucas # (Auto) 0.92 K/uL (0.11-0.59) H 01/08/25: Eos # (Auto) 0.11 K/uL (0.00-0.50) 01/08/25: Baso # (Auto) 0.03 K/uL (0.00-0.20) 01/08/25 22:24 Immature Gran # (Auto) 0.05 K/uL (0.01-0.20) 01/08/25 22:24 POC Sodium 139 mmol/L (135-144) 01/08/25 22:30 Sodium 136 mmol/L (136-145) 01/08/25 22:24 POC Potassium 4.3 mmol/L (3.3-5.0) 01/08/25 22:30 Potassium 4.3 mmol/L (3.5-5.1) 01/08/25 22:24 POC Chloride 103 mmol/L (101-112) 01/08/25 22:30 Chloride 102 mmol/L (98-107) 01/08/25 22:24 Carbon Dioxide 27 mmol/L (21-32) 01/08/25 22:24 POC Total CO2 25 mmol/L (24-31) 01/08/25 22:30 Anion Gap 7 (3-11) 01/08/25 22:24 POC Anion Gap 18.0 mmol/L (16-25) 01/08/25 22:30 POC BUN 20 mg/dl (7-18) H 01/08/25 22:30 BUN 20 mg/dl (6-23) 01/08/25 22:24 Creatinine 0.91 mg/dl (0.6-1.2) 01/08/25 22:24 POC Creatinine 1.1 mg/dl (0.6-1.3) 01/08/25 22:30 Est Cr Clr Drug Dosing Not Reportable 01/08/25 22:24 eGFR 67.87 01/08/25 22:24 BUN/Creatinine Ratio 22.0 (10-20) H 01/08/25 22:24 Glucose 112 mg/dl (70-99(Fasting)) H 01/08/25 22:24 POC Glucose (other) 111 mg/dl (70-99) H 01/08/25 22:30 Calcium 10.2 mg/dl (8.6-10.3) 01/08/25 22:24 POC Ioniz Calcium [place] 1.19 mmol/l (1.12-1.32) 01/08/25 22: Magnesium 2.0 mg/dl (1.7-2.4) 01/08/25 22:24 Total Bilirubin 0.9 mg/dl (0.2-1.0) 01/08/25 22:24 AST 20 U/L (13-39) 01/08/25 22:24 ALT 16 U/L (7-52) 01/08/25 22:24 Alkaline Phosphatase 83 U/L (34-104) 01/08/25 22:24 Troponin I High Sens 11.4 pg/ml (0-14) 01/08/25 22:24 B-Natriuretic Peptide 654 pg/ml (0-100) H 01/08/25 22:24 Total Protein 8.2 gm/dl (6.0-8.3) 01/08/25 22:24 Albumin 4.6 gm/dl (3.4-5.0) 01/08/25 22: Globulin 3.6 gm/dl (2.5-4.0) 01/08/25 22:24 Albumin/Globulin Ratio 1.3 (0.9-2) 01/08/25 22: TSH 2.063 uIu/ml (0.300-4.500) 01/08/25 22:24 Impressions Abdomen/Pelvis CT 01/08/25 22:25 Exam(s): CT ABDOMEN + PELVIS With Contrast IV Amt: 119ml optiray 320 EXAM: CT Abdomen and Pelvis With Intravenous Contrast CLINICAL HISTORY: mid abd pain, Afib not anticoag. TECHNIQUE: Axial computed tomography images of the abdomen and pelvis with intravenous contrast. CTDI is 28.14 mGy and DLP is 2375.8 mGy-cm. Automated exposure control was utilized for the study. A dose lowering technique was utilized adhering to the principles of ALARA. CONTRAST: Patient received 119ml optiray 320 of IV contrast COMPARISON: No relevant prior studies available. FINDINGS: Lung bases: Cardiomegaly. No mass. No consolidation. ABDOMEN: Liver: Unremarkable. No mass. Gallbladder and bile ducts: Multiple small gallstones within the gallbladder. Gallbladder otherwise unremarkable. No ductal dilation. Pancreas: Unremarkable. No mass. No ductal dilation. Spleen: Unremarkable. No splenomegaly. Adrenals: Unremarkable. No mass. Kidneys and ureters: Small bilateral upper lobe cortical cysts. No obstructive uropathy. No obstructing renal or ureteral calculi. No hydronephrosis or hydroureter. Stomach and bowel: No obstruction or ileus. Nonobstructing small bowel containing left ventral lower pelvic hernia to the left of midline. Scattered left and sigmoid colon diverticuli without evidence for diverticulitis. PELVIS: Appendix: No findings to suggest acute appendicitis. Bladder: Contracted. No mass. Reproductive: Atrophic uterus. Ovaries not distinctly visualized. ABDOMEN and PELVIS: Intraperitoneal space: No free air. No free fluid. Bones/joints: No acute fracture. Degenerative changes of the spine. Soft tissues: Unremarkable. Vasculature: Atherosclerotic vascular calcifications. No abdominal aortic aneurysm. Lymph nodes: Unremarkable. No enlarged lymph nodes. IMPRESSION: Nonobstructing small bowel containing lower pelvic ventral hernia to the left of midline. Scattered left and sigmoid colon diverticuli without evidence for diverticulitis. Cholelithiasis. No evidence for acute cholecystitis or biliary obstruction. Senescent changes. Electronically signed by: Matthew Armas M.D. 01/09/25 01:25 AM Chest CTA 01/08/25 22:25 Exam(s): CTA CHEST IV Amt: 119ml optiray 320 EXAM: CT Angiography Chest With Intravenous Contrast CLINICAL HISTORY: PE. TECHNIQUE: Axial computed tomographic angiography images of the chest with intravenous contrast. CTDI is 28.14 mGy and DLP is 2375.8 mGy-cm. Automated exposure control was utilized for the study. A dose lowering technique was utilized adhering to the principles of ALARA. 3D and MIP reconstructed images were created and reviewed. COMPARISON: CXR 01-08-2025 FINDINGS: Pulmonary arteries: No pulmonary embolism. Mild prominent pulmonary artery suggesting pulmonary artery hypertension. Aorta: No thoracic aortic aneurysm or dissection. Lungs: Mild bilateral dependent atelectasis. No consolidation. Two adjacent 4 mm right middle lobe noncalcified nodular densities. Pleural space: No pleural effusion. No pneumothorax. Heart: Moderate cardiomegaly. No pericardial effusion. No evidence of RV dysfunction. Coronary artery calcifications. Bones/joints: No acute fracture. Degenerative changes of the spine and shoulders. Soft tissues: Unremarkable. Lymph nodes: Unremarkable. No enlarged lymph nodes. IMPRESSION: No pulmonary embolism. Prominent pulmonary arteries suggesting pulmonary artery hypertension. Mild dependent atelectasis. 4 mm right middle lobe noncalcified nodular densities. Fleischner Society Guidelines suggest no follow-up is necessary for patients with a low or high risk of malignancy. Cardiomegaly. Senescent changes. Electronically signed by: Matthew Armas M.D. 01/09/25 01:01 AM ECG Additional Comments: ECG. A-fib with rapid ventricular response rate of 159. Nonspecific ST and T wave abnormality. QTc 445. Code Status & VTE Plan VTE Prophylaxis Plan VTE Prophylaxis will be ordered: Yes
[2025-01-09 01:45] LABS: ANTI-Xa, UFH(UnfractionatedHep < 0.10 IU/ml (0.3-0.7)
--- NOTE | 2025-01-09 01:45 | XRay Report ---
Exam(s): XR CXR 1 VIEW EXAM: XR Chest, 1 View CLINICAL HISTORY: Dysrhythmia. TECHNIQUE: Frontal view of the chest. COMPARISON: 09/26/2024.. FINDINGS: Heart is moderately enlarged. Pulmonary arteries are mildly prominent. Pulmonary vessels are top normal caliber. Minimal bibasilar atelectasis. No focal infiltrate. No pleural effusion or pneumothorax. Degenerative changes of the thoracic spine. IMPRESSION: Cardiomegaly. Pulmonary vessels top normal in caliber. Minimal bibasilar atelectasis. Electronically signed by: Matthew Armas M.D. 01/09/25 01:43 AM
[2025-01-09 01:47] LABS: Partial Thromboplastin Time 28 Seconds (21-31)
[2025-01-09] MEDS ORDERED: ACETAMINOPHEN 325 MG TAB PO PRN (01:59)
[2025-01-09] MEDS ORDERED: NITROGLYCERIN SL 0.4 MG/TAB TAB SL PRN (01:59)
[2025-01-09] MEDS: HEPARIN 25000 UNIT/500 ML D5W 25,000 UNITS/500 ML BAG IV SCH (01:59)
[2025-01-09] MEDS: Heparin IV Adult Wt-Based Standard *NO* INITIAL Bolus Protocol IV SCH (02:16)
[2025-01-09] MEDS: METOPROLOL TARTRATE 1 MG/ML VIAL IV PRN (07:27)
[2025-01-09] MEDS: POTASSIUM CHLORIDE 10 MEQ TABCR PO SCH (08:53)
[2025-01-09] MEDS: SPIRONOLACTONE 25 MG TAB PO SCH (08:54)
[2025-01-09] MEDS: BUMETANIDE 1 MG TAB PO SCH (08:54)
[2025-01-09] MEDS: METOPROLOL TARTRATE 25 MG TAB PO SCH (08:54)
[2025-01-09 09:04] LABS: ANTI-Xa, UFH(UnfractionatedHep 0.46 IU/ml (0.3-0.7)
--- NOTE | 2025-01-09 09:13 | Cardiology Consultation ---
Date of Consultation January 09, 2025 Assessment & Plan (1) Atrial fibrillation with rapid ventricular response: (2) Non compliance w medication regimen: (3) Dilated cardiomyopathy: Plan Patient admitted with recurrent atrial fibrillation with RVR. Last CRYSTAL/CV in Sep 2024. History of 2 prior ablations at [facility]. History of medication intolerances - Failed sotalol and multaq per chart review. Recently on amiodarone, metoprolol succinate. Patient stopped these therapies due to "side effects". She was concerned with amiodarone and thyroid disorder. Her hair was falling out. TSH is normal. She reports that [facility] stopped metoprolol due to bradycardia, but this is also when she was on amiodarone. She stopped Eliquis due to fear of falling and prison side effects of bleeding complications. HR's minimally improved with IV metoprolol. Oral metoprolol tartrate initiated at 25 mg BID. Increase to 50 mg BID. LVEF severely reduced at 20%, stable from last evaluation. Long discussion today in patient's room regarding multiple options and treatment for afib. 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 We discussed ongoing rate control with metoprolol vs rhythm control and retrial of amiodarone vs Tikosyn. She is aware of the 3 days admission for Tikosyn load. We also discussed future ablation with [facility] OR possible BIV device implant with AV shiloh ablation. I'm concerned with her history of non compliance that Tikosyn may not be the best medication. Consider reload of amiodarone and future CRYSTAL/DCCV Continue IV heparin for now. Metoprolol titrated to 50 mg BID this morning. Further recommendations after discussion and evaluation with Dr. Santiago I spent a total of 60 minutes on the date of service in preparation, delivery, and documentation of the care provided to this patient, excluding any time spent in the performance of separately billed services. Gayle Marx PA-C Department of Cardiology, [facility] This chart was completed in part utilizing Speech Voice Recognition Software. Grammatical errors, random word insertions, pronoun errors, and incomplete sentences are an occasional consequence of this system due to software limitations, ambient noise, and hardware issues. Any formal questions or concern s about the content, text, or information contained within the body of this dictation should be directly addressed to the provider for clarification. Supervising Physician Co-Signing Physician Notes I have personally performed a history and physical examination on the patient. I have reviewed the advance practitioner's documentation, and I agree with, and take responsibility for the plan of care. 69-year-old female admitted paroxysmal atrial fibrillation with rapid ventricular response secondary to noncompliance with AV shiloh blocking agents and antiarrhythmic therapy. She also discontinued anticoagulation several weeks ago. Recommend transesophageal echo guided direct-current cardioversion. Consider reloading amiodarone post CRYSTAL /cardioversion. Agree with addition of metoprolol 50 mg twice daily now.Required addition of low-dose digoxin during recent hospitalization in September to improve rate control prior to cardioversion. Continue IV heparin. N.p.o. after midnight in anticipation of CRYSTAL guided cardioversion. I spent a total of 35 minutes on the date of service in preparation, delivery, and documentation of the care provided to this patient, excluding any time spent in the performance of separately billed services. Sebastian Santiago DO, [facility] History of Present Illness Reason for Consultation: Atrial fib RVR Requesting Physician: Thomas Hospitalist Attending Physician: Dr. Santiago History of Present Illness Patient is a 69 year old female, known to [facility] Cardiology, complex history including: Follows with Dr. Melendez for EP for [facility] and Dr. Saldivar at [facility] Cardiac Problems: pAF - previously on amiodarone and Toprol and Eliquis (previously did not tolerate Multaq and sotalol) CRYSTAL guided DCCV in 10/2023 due to hospitalization for AF and CHF; - s/p PVI ablation 12/18/2014 and redo PVI ablation at [place] with Dr. Saldivar 11/24/2023 - amio and Eliquis stopped 02/2024 but then had recurrent AF 09/2024 was restarted on amio and Eliquis s/p DCCV 09/28/2024 [id number] (age, female, HTN, CHF) -Patient self discontinued medications in Oct/Nov 2024 due to Side effects HTN HLD Chronic heart failure with reduced EF, NYHA Class III NICM EF < 20% on echo from 09/2023; was 45% in 11/2014 Diffuse large B cell lymphoma WILL on CPAP Iron deficiency anemia Gout H/o GIB Last admission in Sep 2024 with recurrent afib. Amiodarone was resumed and she underwent CRYSTAL guided CV with return to R. 2 weeks later she had f/u office visit with Dr. Melendez. Amiodarone was reduced to 200 mg daily. Metoprolol was continued at 25 mg BID along with Eliquis 5 mg BID. Several options were discussed during this visit if she has recurrent afib - Including: Return to EP at [facility] to discuss repeat possible ablation. Trial of Tikosyn. OR consideration of PPM implant with AV shiloh ablation. Since Office visit in September [address] Melendez, patient decided she did not feel well on medications and stopped her amiodarone due to hair loss and potential prison side effects. She stopped Eliquis due to fears of falls and injuries. She claims her metoprolol was previously stopped by Dr. Yariel inman ago due to "bradycardia", but this is unclear and per [facility] records, she was to be taking metoprolol succinate 25 mg BID. She is resistant to medications. She began to notice palpitations, last with worsening SOB with activity. She came to the ER for evaluation yesterday due to her symptoms. Found to have recurrent atrial fib with RVR. Started on IV heparin. Started on metoprolol tartrate 25 mg BID. She also received several doses of IV metoprolol. Labs were unremarkable. At time of evaluation, patient resting in bed. Notes ongoing fluttering but comfortable at rest. She claims the metoprolol is causing her "butterfly" in her chest, not the afib. She is hesitant about retrying the amiodarone, but is also hesitant to try the Tikosyn. No chest pain. No orthopnea, PND or edema. No fever, cough, chills. Allergies Allergy/AdvReac Type Severity Reaction Status Date / Time lisinopril Allergy Severe Throat Verified 09/26/24 14:21 tightness Iodinated Contrast Media Allergy Intermediate Rash Verified 09/26/24 14:21 citalopram Allergy Mild Rash Verified 09/26/24 14:21 Beta-Blockers AdvReac Intermediate Increase Verified 09/26/24 14:21 (Beta-Adrenergic Bloc of symptoms/conditions digoxin AdvReac Unknown "Did not Verified 09/26/24 14:21 work" Home Medications Medication Instructions Recorded Confirmed Type Xanax 0.5 mg PO HS PRN Insomnia 01/09/25 01/09/25 History bumetanide 1 mg tablet 1 mg PO DAILY 01/09/25 01/09/25 History potassium chloride 10 mEq 10 meq PO DAILY 01/09/25 01/09/25 History tablet,extended release spironolactone 25 mg tablet 25 mg PO DAILY 01/09/25 01/09/25 History Patient History Medical History Shortness of breath Diarrhea Obesity Encounter for pre-operative examination History of COVID-19 Dx 09/2021, symptoms resolved except residual taste/smell impairment Osteoarthritis Cancer Lymphoma (2015) s/p treatment in [place], PCP monitors Atrial fibrillation Follows with [facility]/Dr. Medina Surgical History History of tonsillectomy and adenoidectomy History of ear surgery LEFT X 2-RIGHT X 1-MASTOIDECTOMY/TYMPANOPLASTY History of sinus surgery History of section History of thyroidectomy History of esophagogastroduodenoscopy (EGD) History of colon resection 2015 FOR BLEEDING TUMOR History of colonoscopy History of cardioversion ~2014 Family History Other Hypertension Social History Smoking Status: Never smoker Second Hand Exposure: Yes (FATHER SMOKED); Do You Dip or Chew Tobacco: No; Hx Alcohol Use: No Hx Substance Use: No Preferred Language: Slovenian Communication Ability: Effective 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 Beliefs That Will Affect Care: None marital status: Single Current Living Situation: Family Current Living Situation Comment: lives in double house with son current occupational status: disabled Feels Safe at Home: Yes Safety Concerns: Feels Safe At This Time Assistive Devices: BiPap Review of Systems Review of Systems: All systems reviewed & are unremarkable except as noted in HPI & below Physical Exam Constitutional: WD/WN, vitals as above well developed and + obese; no acute distress Neck: trachea midline, no thyromegaly Respiratory: normal respiratory effort, lungs clear to auscultation Cardiovascular: Rate/Rhythm: + tachycardic and + irregularly irregular Heart Sounds: no murmur (No audible murmurs ) Vessels: no JVD Extremities: no edema Gastrointestinal (Abdomen): normal bowel sounds, soft, nontender, no hepatosplenomegaly Neurologic: PERRL, EOMI, accommodation nl, no face palsy, no dysarthria Results & Data Vital Signs (Past 12 Hours) Vital Signs Temp Pulse Pulse Resp BP BP Pulse Ox 01/09/25 08:06 115 H 20 124/85 93 01/09/25 07:56 112 H 113/88 01/09/25 07:27 134 H 113/88 01/09/25 07:16 113/88 01/09/25 07:16 113/88 01/09/25 06:02 93/73 L 01/09/25 06:02 93/73 L 01/09/25 06:02 93/73 L 01/09/25 06:02 93/73 L 01/09/25 05:57 126 H 21 96 01/09/25 05:51 112 H 29 H 95 01/09/25 05:39 120 H 23 96 01/09/25 05:00 111 H 18 105/68 96 01/09/25 04:53 115 H 18 101/77 94 01/09/25 02:02 124 H 01/09/25 02:00 120 H 18 105/86 97 01/09/25 00:48 115 H 119/85 01/09/25 00:23 120 H 122/91 01/08/25 23:41 122 H 121/88 01/08/25 23:19 148 H 01/08/25 23:07 127 H 18 117/80 92 01/08/25 23:00 130 H 117/80 01/08/25 22:35 143 H 122/87 01/08/25 22:24 167 H 01/08/25 22:11 36.2 C L 104 H 18 145/94 H 95 O2 Del Method O2 Flow Rate 01/09/25 08:06 CPAP 01/09/25 07:56 01/09/25 07:27 01/09/25 07:16 01/09/25 07:16 01/09/25 06:02 01/09/25 06:02 01/09/25 06:02 01/09/25 06:02 01/09/25 05:57 01/09/25 05:51 01/09/25 05:39 01/09/25 05:00 CPAP 01/09/25 04:53 CPAP 01/09/25 02:02 01/09/25 02:00 Nasal Cannula 2 01/09/25 00:48 01/09/25 00:23 01/08/25 23:41 01/08/25 23:19 01/08/25 23:07 Room Air 01/08/25 23:00 01/08/25 22:35 01/08/25 22:24 01/08/25 22:11 Room Air Laboratory Results Cardiac Enzymes 01/08/25 Range/Units 22:24 AST 20 (13-39) U/L Troponin I High Sens 11.4 (0-14) pg/ml B-Natriuretic Peptide 654 H (0-100) pg/ml Coagulation 01/08/25 Range/Units 22:24 APTT 28 (21-31) Seconds B-Natriuretic Peptide 654 H (0-100) pg/ml CBC 01/08/25 Range/Units 22:24 WBC 8.31 (4.8-10.8) K/ul RBC 5.21 (4.20-5.40) M/uL Hgb 15.9 (12.0-16.0) g/dl Hct 47.7 H (37.0-47.0) % Plt Count 293 (130-400) K/uL Neut # (Auto) 4.90 (1.40-6.50) K/uL Lymph # (Auto) 2.30 (1.20-3.40) K/uL [place] # (Auto) 0.92 H (0.11-0.59) K/uL Eos # (Auto) 0.11 (0.00-0.50) K/uL Baso # (Auto) 0.03 (0.00-0.20) K/uL Comprehensive Metabolic Panel 01/08/25 Range/Units 22:24 Sodium 136 (136-145) mmol/L Potassium 4.3 (3.5-5.1) mmol/L Chloride 102 (98-107) mmol/L Carbon Dioxide 27 (21-32) mmol/L BUN 20 (6-23) mg/dl Creatinine 0.91 (0.6-1.2) mg/dl Glucose 112 H (70-99(Fasting)) mg/dl Calcium 10.2 (8.6-10.3) mg/dl AST 20 (13-39) U/L ALT 16 (7-52) U/L Alkaline Phosphatase 83 (34-104) U/L Total Protein 8.2 (6.0-8.3) gm/dl Albumin 4.6 (3.4-5.0) gm/dl Intake and Output 01/08/25 01/09/25 01/09/25 22:59 06:59 14:59 Intake Total 0 / 0 Balance 0 / 0 Intake: Oral 0 / 0 Other: Weight 120.4 kg Weight Measurement Method Built in [facility] Diagnostic Findings Telemetry reviewed: Atrial fib with RVR rates ranging 110-130's Echo reviewed: No significant change from prior evaluation Afib with RVR during study LVEF severely reduced at 25-30% Severe global hypokinesis LA is severely dilated Mild AI Mild aortic root dilatation EKG reviewed: Atrial fibrillation RVR Non specific ST/T wave abnormality Afib has replaced NSR Abdomen/Pelvis CT 01/08/25 22:25 IMPRESSION: Nonobstructing small bowel containing lower pelvic ventral hernia to the left of midline. Scattered left and sigmoid colon diverticuli without evidence for diverticulitis. Cholelithiasis. No evidence for acute cholecystitis or biliary obstruction. Senescent changes. Chest CTA 01/08/25 22:25 IMPRESSION: No pulmonary embolism. Prominent pulmonary arteries suggesting pulmonary artery hypertension. Mild dependent atelectasis. 4 mm right middle lobe noncalcified nodular densities. Fleischner Society Guidelines suggest no follow-up is necessary for patients with a low or high risk of malignancy. Cardiomegaly. Senescent changes. Chest X-Ray 01/08/25 22:25 IMPRESSION: Cardiomegaly. Pulmonary vessels top normal in caliber. Minimal bibasilar atelectasis. Medications Administered Current Inpatient Medications Acetaminophen (Acetaminophen 325 Mg Tab) 650 mg PO Q4H PRN PRN Reason: Pain or Fever Stop: 02/08/25 01:58 Alprazolam (Alprazolam 0.5 Mg Tablet) 0.5 mg PO HS PRN PRN Reason: Insomnia Stop: 02/08/25 01:58 Bumetanide (Bumetanide 1 Mg Tab) 1 mg PO DAILY FERNANDA Stop: 02/08/25 08:59 Last Admin: 01/09/25 08:54 Dose: 1 mg Heparin Sodium/Dextrose (Heparin 76520 Unit/500 Ml D5w) 25,000 units in 500 mls @ 30 mls/hr IV .[id number] [facility]; Protocol Stop: 02/08/25 01:29 Last Admin: 01/09/25 01:59 Dose: 1,500 units/hr, 30 mls/hr Metoprolol Tartrate (Metoprolol Tartrate 1 Mg/Ml Vial) 5 mg IV Q6 PRN PRN Reason: Tachycardia Stop: 02/08/25 01:58 Last Admin: 01/09/25 07:27 Dose: 5 mg Metoprolol Tartrate (Metoprolol Tartrate 25 Mg Tab) 25 mg PO BID [facility] Stop: 02/08/25 08:59 Last Admin: 01/09/25 08:54 Dose: 25 mg Nitroglycerin (Nitroglycerin Sl 0.4 Mg/Tab Tab) 0.4 mg SL Q5M PRN PRN Reason: Chest Pain Stop: 02/08/25 01:58 Polyethylene Glycol (Polyethylene (Miralax) 17 Gm Pack) 17 gm PO DAILY PRN PRN Reason: Constipation Stop: 02/08/25 01:58 Potassium Chloride (Potassium Chloride 10 Meq Tabcr) 10 meq PO DAILY [facility] Stop: 02/08/25 08:59 Last Admin: 01/09/25 08:53 Dose: 10 meq Spironolactone (Spironolactone 25 Mg Tab) 25 mg PO DAILY [facility] Stop: 02/08/25 08:59 Last Admin: 01/09/25 08:54 Dose: 25 mg
[2025-01-09 10:16] LABS: Hematocrit (blood only) 47.5 % (37.0-47.0); Hemoglobin 15.7 g/dl (12.0-16.0); Immature Granulocytes # (auto) 0.03 K/uL (0.01-0.20); Immature Granulocytes % (auto) 0.5 %; Lymphocytes % (auto) 15.7 %; Mean Corpuscular Hemoglobin 30.3 pg (25.0-34.0); Mean Corpuscular Hgb Conc 33.1 g/dL (32.0-36.0); Mean Corpuscular Volume 91.7 fL (80.0-100.0); Mean Platelet Volume 10.2 fL (9.4-12.4); Monocytes # (auto) 0.12 K/uL (0.11-0.59); Monocytes % (auto) 1.9 %; Neutrophils # (auto) 5.22 K/uL (1.40-6.50); Neutrophils % (auto) 81.9 %; Platelet Count 277 K/uL (130-400); RDW Coefficient of Variation 13.7 % (11.5-14.5); RDW Standard Deviation 45.9 fL (36.4-46.3); Red Blood Count 5.18 M/uL (4.20-5.40); White Blood Count 6.37 K/ul (4.8-10.8)
[2025-01-09 10:31] LABS: BUN Creatinine Ratio 22.4 (10-20); Creatinine Clr Calc Pharmacy 81.4 ml/min; Magnesium 2.1 mg/dl (1.7-2.4); Potassium 4.2 mmol/L (3.5-5.1)
[2025-01-09 10:37] LABS: Troponin I High Sensitivity 4.6 pg/ml (0-14)
[2025-01-09] MEDS: METOPROLOL TARTRATE 25 MG TAB PO ONE (12:46)
--- NOTE | 2025-01-09 14:38 | Electrocardiogram Report ---
Test Reason : Blood Pressure : */* mmHG Vent. Rate : 159 BPM Atrial Rate : * BPM P-R Int : * ms QRS Dur : 96 ms QT Int : 274 ms P-R-T Axes : * 11 96 degrees QTcB Int : 445 ms Atrial fibrillation with rapid ventricular response Nonspecific ST and T wave abnormality Abnormal ECG When compared with ECG of 28-Sep-2024 14:16, Atrial fibrillation has replaced Sinus rhythm Vent. rate has increased by 84 bpm Nonspecific T wave abnormality no longer evident in Anterior leads Confirmed by Jony John ([id number]) on 01/09/2025 2:38:30 PM Referred By: REFERRED SELF Confirmed By: Jony John
--- NOTE | 2025-01-09 14:50 | Electrocardiogram Report ---
Test Reason : Blood Pressure : */* mmHG Vent. Rate : 132 BPM Atrial Rate : * BPM P-R Int : * ms QRS Dur : 96 ms QT Int : 336 ms P-R-T Axes : * 5 144 degrees QTcB Int : 497 ms Atrial fibrillation with rapid ventricular response with premature ventricular or aberrantly conducte d complexes Nonspecific ST and T wave abnormality Abnormal ECG When compared with ECG of 08-Jan-2025 22:20, (unconfirmed) No significant change was found Confirmed by Jony John ([id number]) on 01/09/2025 2:50:14 PM Referred By: REFERRED SELF Confirmed By: Jony John
[2025-01-09] MEDS: METOPROLOL TARTRATE 50 MG TAB PO SCH (20:38)
[2025-01-10 06:34] LABS: Hematocrit (blood only) 43.7 % (37.0-47.0); Hemoglobin 14.7 g/dl (12.0-16.0); Mean Corpuscular Hemoglobin 30.8 pg (25.0-34.0); Mean Corpuscular Hgb Conc 33.6 g/dL (32.0-36.0); Mean Corpuscular Volume 91.4 fL (80.0-100.0); Mean Platelet Volume 9.9 fL (9.4-12.4); Platelet Count 254 K/uL (130-400); RDW Standard Deviation 46.5 fL (36.4-46.3); Red Blood Count 4.78 M/uL (4.20-5.40); White Blood Count 11.38 K/ul (4.8-10.8)
[2025-01-10 06:58] LABS: BUN Creatinine Ratio 25.3 (10-20); Calcium 9.7 mg/dl (8.6-10.3); Creatinine Clr Calc Pharmacy 70.5 ml/min; Magnesium 2.2 mg/dl (1.7-2.4); Phosphorus 3.4 mg/dl (2.5-4.9); Potassium 3.9 mmol/L (3.5-5.1)
[2025-01-10 07:00] LABS: ANTI-Xa, UFH(UnfractionatedHep 0.68 IU/ml (0.3-0.7)
[2025-01-10] MEDS ORDERED: ePHEDrine sulfate 50 MG/ML AMP IV PRN (07:31)
[2025-01-10] MEDS ORDERED: ATROPINE SULFATE 0.1 MG/ML 10ML SYR IV PRN (07:31)
--- NOTE | 2025-01-10 07:31 | Anesthesiology Consultation ---
Date of Service January 10, 2025 Assessment & Plan Chart Review Chart Review: Acceptable Risk for Surgery and Patient NOT seen in Pre Admission Testing Consults Requested none ASA ASA4 Proposed Anesthesia Anesthesia Type: General Risk / Benefits Reviewed With: PT / POA / Parent / Guardian, Accepts Plan and Informed Consent Obtained History Surgery Operation Date: 01/10/25 07:30 Proposed Procedures p cardioversion - Sebastian Santiago DO Height/Weight Height: 5 ft 6 in Weight: 122.016 kg Allergies Allergy/AdvReac Type Severity Reaction Status Date / Time lisinopril Allergy Severe Throat Verified 01/10/25 07:18 tightness Iodinated Contrast Media Allergy Intermediate Rash Verified 01/10/25 07:18 citalopram Allergy Mild Rash Verified 01/10/25 07:18 Beta-Blockers AdvReac Intermediate Increase Verified 01/10/25 07:18 (Beta-Adrenergic Bloc of symptoms/conditions digoxin AdvReac Unknown "Did not Verified 01/10/25 07:18 work" Medications Home Medications Medication Instructions Recorded Confirmed Last Taken Xanax 0.5 mg PO HS PRN Insomnia 01/09/25 01/09/25 Unknown bumetanide 1 mg tablet 1 mg PO DAILY 01/09/25 01/09/25 Unknown potassium chloride 10 mEq 10 meq PO DAILY 01/09/25 01/09/25 Unknown tablet,extended release spironolactone 25 mg tablet 25 mg PO DAILY 01/09/25 01/09/25 Unknown Active Medications Generic Name Dose Route Start Last Admin Trade Name Freq PRN Reason Stop Dose Admin Bumetanide 1 mg 01/09/25 09:00 01/09/25 08:54 Bumetanide 1 Mg Tab PO 02/08/25 08:59 1 mg DAILY FERNANDA Administration Heparin Sodium/Dextrose 25,000 units in 500 mls @ 30 mls/hr 01/09/25 01:30 01/10/25 07:05 Heparin 73851 Unit/500 Ml D5w IV 02/08/25 01:29 1,500 units/hr .[id number] FERNANDA 30 mls/hr Titration Protocol 1,500 UNITS/HR Metoprolol Tartrate 5 mg 01/09/25 01:59 01/09/25 23:07 Metoprolol Tartrate 1 Mg/Ml Vial IV 02/08/25 01:58 5 mg Q6 PRN Administration Tachycardia Metoprolol Tartrate 50 mg 01/09/25 21:00 01/09/25 20:38 Metoprolol Tartrate 50 Mg Tab PO 02/08/25 20:59 50 mg BID FERNANDA Administration Potassium Chloride 10 meq 01/09/25 09:00 01/09/25 08:53 Potassium Chloride 10 Meq Tabcr PO 02/08/25 08:59 10 meq DAILY FERNANDA Administration Spironolactone 25 mg 01/09/25 09:00 01/09/25 08:54 Spironolactone 25 Mg Tab PO 02/08/25 08:59 25 mg DAILY FERNANDA Administration NPO Date Last Intake of Fluids: 01/09/25 Time Last Intake of Fluids: 21:00 Date Last Intake of Solids: 01/09/25 Time Last Intake of Solids: 21:00 Past Medical History Medical History Shortness of breath Diarrhea Obesity Encounter for pre-operative examination History of COVID-19 Dx 09/2021, symptoms resolved except residual taste/smell impairment Osteoarthritis Cancer Lymphoma (2015) s/p treatment in [place], PCP monitors Atrial fibrillation Follows with [facility]/Dr. Medina Exercise / Class Metabolic Activity III < 4 Walking/Shop/Light housework Past Family History Family History Other Hypertension Past Surgical History Surgical History History of tonsillectomy and adenoidectomy History of ear surgery LEFT X 2-RIGHT X 1-MASTOIDECTOMY/TYMPANOPLASTY History of sinus surgery History of section History of thyroidectomy History of esophagogastroduodenoscopy (EGD) History of colon resection 2016 FOR BLEEDING TUMOR History of colonoscopy History of cardioversion ~2014 Past Anesthesia History No Hx of Anesthesia Complications and No Family Hx of Anesthesia Complications History of PONV No Hx of PONV and No Hx of Motion Sickness Social History Smoking Status: Never smoker Do You Dip or Chew Tobacco: No Hx Alcohol Use: No alcohol intake frequency: holidays/special occasions only Hx Substance Use: No substance use type: does not use Physical Exam Vital Signs Last Vital Signs Temp 36.6 C 01/10/25 07:13 Pulse 106 H 01/10/25 07:13 Resp 18 01/10/25 07:13 BP 107/78 01/10/25 07:13 Pulse Ox 95 01/10/25 07:13 O2 Del Method Room Air 01/10/25 07:13 O2 Flow Rate 2 01/09/25 02:00 Constitutional + morbidly obese; no acute distress ENMT Mouth: no dentition abnormality Thyromental Distance: < 3.5 Finger Breadths Mallampati Class: III Neck normal visual inspection, trachea midline, + shortened thyromental distance, + short neck and + thick neck; neck extension not limited Respiratory normal respiratory effort Auscultation: + diminished lung sounds Cardiovascular Rate/Rhythm: + abnormal rate (irreg/afib) and + abnormal rhythm (irreg/afib) Heart Sounds: no murmur Vessels: no carotid bruit Musculoskeletal Spine: normal cervical ROM and no pain with cervical ROM Extremities: extremities normal to inspection; full ROM of extremities Neurologic moves all extremities Motor/Sensory: no sensory deficit Psychiatric Orientation: alert and oriented x 3 Testing Laboratory Results 01/10/25 06:15 01/10/25 06:15 APTT 28 Seconds (21-31) 01/08/25 22:24 Electrocardiogram Date: 01/10/25 Findings: + NSST changes and + AFIB @ Chest X-Ray Date: 01/08/25 Findings: + NAD, + atelectasis and + cardiomegaly Echocardiogram Date: 01/09/25 EF: 25% LV Function: dysfunctional RWMA: + hypokinetic (severe global HK) Other Findings: + atrial enlargement (severe LA dilation) Valvular Disease: + AI and + MR (mild ) mild TR
[2025-01-10] MEDS ORDERED: ONDANSETRON INJ 2 MG/ML 2 ML VIAL ONE (08:07)
[2025-01-10] MEDS ORDERED: PROPOFOL IV EMULSION 10 MG/ML 20 ML VIAL IV ONE (08:07)
[2025-01-10] MEDS ORDERED: LIDOCAINE 2% 2 ML VIAL/AMP(20MG/ML) INFIL ONE (08:07)
[2025-01-10] MEDS ORDERED: GLYCOPYRROLATE 0.2 MG/ML VIAL ONE (08:07)
--- NOTE | 2025-01-10 08:17 | Anesthesiology Progress Note ---
Date of Service January 10, 2025 Anesthesia Post Procedure Vital Signs Vital Signs: Temp Pulse Pulse Resp BP BP Pulse Ox 01/10/25 08:00 36.5 C 82 15 98/66 L 97 01/10/25 07:13 36.6 C 106 H 18 107/78 95 01/10/25 02:27 36.6 C 105 H 18 91/73 L 98 01/10/25 00:00 126 H 01/09/25 23:26 111 H 105/76 01/09/25 23:07 131 H 110/70 01/09/25 22:42 36.6 C 92 H 18 110/70 93 01/09/25 20:00 01/09/25 19:33 108/78 01/09/25 19:22 36.7 C 89 18 154/118 H 93 01/09/25 15:20 01/09/25 12:00 36.6 C 127 H 18 122/67 96 01/09/25 10:15 132 H 17 01/09/25 10:00 126 H 19 94 01/09/25 10:00 126 H 24 112/86 95 01/09/25 10:00 112/86 01/09/25 10:00 112/86 01/09/25 10:00 112/86 01/09/25 09:36 130 H 28 H 91 01/09/25 09:21 126 H 17 91 01/09/25 09:18 123 H 28 H 92 01/09/25 09:01 120/87 01/09/25 09:01 120/87 01/09/25 09:01 120/87 01/09/25 09:01 120/87 01/09/25 09:01 120/87 01/09/25 09:01 120/87 01/09/25 09:01 120/87 01/09/25 09:01 120/87 01/09/25 09:01 120/87 01/09/25 09:01 120/87 01/09/25 09:00 128 H 24 01/09/25 08:30 126 H 95 01/09/25 08:24 127 H 21 92 O2 Del Method O2 Flow Rate 01/10/25 08:00 Oxymask 6 01/10/25 07:13 Room Air 01/10/25 02:27 Room Air, CPAP 01/10/25 00:00 01/09/25:26 01/09/25 23:07 01/09/25 22:42 Room Air 01/09/25 20:00 Room Air 01/09/25 19:33 01/09/25 19:22 Room Air 01/09/25 15:20 Room Air 01/09/25 12:00 Room Air 01/09/25 10:15 01/09/25 10:00 01/09/25 10:00 01/09/25 10:00 01/09/25 10:00 01/09/25 10:00 01/09/25 09:36 01/09/25 09:21 01/09/25 09:18 01/09/25 09:01 01/09/25 09:01 01/09/25 09:01 01/09/25 09:01 01/09/25 09:01 01/09/25 09:01 01/09/25 09:01 01/09/25 09:01 01/09/25 09:01 01/09/25 09:01 01/09/25 09:00 01/09/25 08:30 01/09/25 08:24 Transfer of Care Handoff Completed per policy Notes Mental Status: alert / awake / arousable Patient Amnestic to Procedure: Yes Nausea / Vomiting: adequately controlled Pain: adequately controlled Airway Patency, RR, SpO2: stable & adequate BP & HR: stable & adequate Hydration State: stable & adequate Anesthetic Complications: no major complications apparent
--- NOTE | 2025-01-10 08:59 | Cardioversion ---
Date of Service January 10, 2025 Electrical Cardioversion Rpt Electrical Cardioversion Report Indication: Atrial fibrillation rapid ventricular response, cardiomyopathy Complications: None Estimated blood loss: 0 cc Anesthesia: Conscious sedation provided by the anesthesia service with propofol. Please see separate report Procedural summary: Patient brought to the cardiac catheterization holding area in a fasting state. Transesophageal echocardiogram performed prior to cardioversion without evidence of left atrial appendage thrombus. Please see separate report. Defibrillator pads were placed in anterior and posterior position. Patient was adequately sedated with propofol and the defibrillator was synced to the QRS complex after the CRYSTAL probe was removed. A single 200 J shock was delivered. Patient successfully converted from atrial fibrillation with rapid ventricular response to sinus rhythm. No focal neurologic deficits post procedure. Conclusion: Successful transesophageal echo guided direct-current cardioversion from atrial fibrillation with rapid ventricular response to normal sinus rhythm with 200 J. Recommend addition of amiodarone for rhythm control. Continue metoprolol succinate 50 mg twice daily. Transition IV heparin to Eliquis. Sebastian Santiago DO, FACC
[2025-01-10] MEDS: AMIODARONE 200 MG TAB PO SCH (09:50)
--- NOTE | 2025-01-10 14:02 | Cardiology Progress Note ---
Date of Service January 10, 2025 Assessment & Plan (1) Atrial fibrillation with rapid ventricular response: (2) Non compliance w medication regimen: (3) Dilated cardiomyopathy: Plan 01/09/25 Patient admitted with recurrent atrial fibrillation with RVR. Last CRYSTAL/CV in Sep 2024. History of 2 prior ablations at [facility]. History of medication intolerances - Failed sotalol and multaq per chart review. Recently on amiodarone, metoprolol succinate. Patient stopped these therapies due to "side effects". She was concerned with amiodarone and thyroid disorder. Her hair was falling out. TSH is normal. She reports that [facility] stopped metoprolol due to bradycardia, but this is also whe n she was on amiodarone. She stopped Eliquis due to fear of falling and terminal superintendent side effects of bleeding complications. HR's minimally improved with IV metoprolol. Oral metoprolol tartrate initiated at 25 mg BID. Increase to 50 mg BID. LVEF severely reduced at 20%, stable from last evaluation. Long discussion today in patient's room regarding multiple options and treatment for afib. She is resistant to medications and being on medications [facility]. We discussed ongoing rate control with metoprolol vs rhythm control and retrial of amiodarone vs Tikosyn. She is aware of the 3 days admission for Tikosyn load. We also discussed future ablation with [facility] OR possible BIV device implant with AV shiloh ablation. I'm concerned with her history of non compliance that Tikosyn may not be the best medication. Consider reload of amiodarone and future CRYSTAL/DCCV Continue IV heparin for now. Metoprolol titrated to 50 mg BID this morning. 01/10/25 Successful CRYSTAL guided CV this morning restoring NSR. Currently NSR in the 70's Start amiodarone 200 mg TID. Metoprolol 50 mg BID resumed on admission Transition from IV heparin to oral Eliquis 5 mg BID tonight. Turn off heparin when starting Eliquis Continue telemetry overnight. Anticipate discharge tomorrow. Long discussion about compliance with her medications upon returning home. Case discussed with Dr. Santiago I spent a total of 30 minutes on the date of service in preparation, delivery, and documentation of the care provided to this patient, excluding any time spent in the performance of separately billed services. Gayle Marx PA-C Department of Cardiology, [facility] This chart was completed in part utilizing Speech Voice Recognition Software. Grammatical errors, random word insertions, pronoun errors, and incomplete sentences are an occasional consequence of this system due to software limitations, ambient noise, and hardware issues. Any formal questions or concerns about the content, text, or information contained within the body of this dictation should be directly addressed to the provider for clarification. Admission and Anticipated Discharge Date Admission Date: January 09, 2025 Supervising Physician Co-Signing Physician Notes I have personally performed a history and physical examination on the patient. I have reviewed the advance practitioner's documentation, and I agree with, and take responsibility for the plan of care. Paroxysmal atrial fibrillation with rapid ventricular response secondary to noncompliance with AV shiloh blocking agents and antiarrhythmic therapy. Beta- archie restarted and IV anticoagulation initiated 01/09/2025. Transesophageal echocardiogram performed this a.m. No evidence of left atrial appendage thrombus. Successful external direct-current cardioversion performed with 200 J. She remains in sinus rhythm. Overall feeling better after cardioversion. Agreeable to restart amiodarone and Eliquis. IV heparin will be discontinued at 9PM tonite with first dose of Eliquis. Continue telemetry monitoring. Discussed importance of compliance with cardiovascular medical therapies. Possible discharge in 24 to 48 hours pending clinical course. All questions answered to patient satisfaction. I spent a total of 30 minutes on the date of service in preparation, delivery, and documentation of the care provided to this patient, excluding any time spent in the performance of separately billed services. Sebastian Snatiago DO, [facility] Subjective Patient underwent CRYSTAL/CV this morning wiht church of NSR. Remains in NSR in the 70's on telemetry. She reports feeling well. Denies acute cardiac complaints currently. Agreeable to taking medications when she returns home. No chest pain or dyspnea. Review of Systems Review of Systems: All systems reviewed & are unremarkable except as noted in HPI & below Physical Exam Constitutional: WD/WN, vitals as above well developed and + obese; no acute distress Neck: trachea midline, no thyromegaly Respiratory: normal respiratory effort, lungs clear to auscultation Cardiovascular: Rate/Rhythm: regular rate and regular rhythm Heart Sounds: no murmur (No audible murmurs ) Vessels: no JVD Extremities: no edema Gastrointestinal (Abdomen): normal bowel sounds, soft, nontender, no hepatosplenomegaly Neurologic: PERRL, EOMI, accommodation nl, no face palsy, no dysarthria Results & Data Vital Signs (Past 12 Hours) Vital Signs Temp Pulse Pulse Resp BP Pulse Ox O2 Del Method 01/10/25 12:23 36.3 C L 73 22 101/72 95 Room Air 01/10/25 08:50 36.4 C L 83 23 99/68 L 98 Room Air 01/10/25 08:30 84 17 100/70 95 Room Air 01/10/25 08:15 80 16 106/63 93 Room Air 01/10/25 08:00 36.5 C 82 15 98/66 L 97 Oxymask 01/10/25 07:13 36.6 C 106 H 18 107/78 95 Room Air 01/10/25 06:00 105 H 01/10/25 02:27 36.6 C 105 H 18 91/73 L 98 Room Air, CPAP O2 Flow Rate 01/10/25 12:23 01/10/25 08:50 01/10/25 08:30 01/10/25 08:15 01/10/25 08:00 6 01/10/25 07:13 01/10/25 06:00 01/10/25 02:27 Laboratory Results Cardiac Enzymes 01/09/25 01/09/25 Range/Units 15:18 20:29 Troponin I High Sens 4.9 8.6 (0-14) pg/ml CBC 01/10/25 Range/Units 06:15 WBC 11.38 H (4.8-10.8) K/ul RBC 4.78 (4.20-5.40) M/uL Hgb 14.7 (12.0-16.0) g/dl Hct 43.7 (37.0-47.0) % Plt Count 254 (130-400) K/uL Comprehensive Metabolic Panel 01/10/25 Range/Units 06:15 Sodium 139 (136-145) mmol/L Potassium 3.9 (3.5-5.1) mmol/L Chloride 104 (98-107) mmol/L Carbon Dioxide 26 (21-32) mmol/L BUN 25 H (6-23) mg/dl Creatinine 0.99 (0.6-1.2) mg/dl Glucose 114 H (70-99(Fasting)) mg/dl Calcium 9.7 (8.6-10.3) mg/dl Intake and Output 01/09/25 01/10/25 01/10/25 22:59 06:59 14:59 Intake Total 297 / 900 500 / 500 Balance 297 / 900 500 / 500 Intake: IV 297 / 500 500 / 500 Heparin 68483 Unit/500 ml D5w 297 / 500 500 / 500 25,000 units In 500 ml @ 1,500 UNITS/HR 30 mls/hr IV .[id number] [facility] Rx#:[id number] Other: # Unmeasured Voids 2 Weight 122.1 kg 122.016 kg Weight Measurement Method Built in Bedscale Standing Scale Patient Weight 01/11/25 06:59 Weight 122.016 kg Diagnostic Findings Telemetry reviewed: Currently NSR in the 70s CRYSTAL report reviewed: No left atrial mass or thrombus visualized No thrombus is detected in the LA appendage. Medications Administered Current Inpatient Medications Acetaminophen (Acetaminophen 325 Mg Tab) 650 mg PO Q4H PRN PRN Reason: Pain or Fever Stop: 02/08/25 01:58 Alprazolam (Alprazolam 0.5 Mg Tablet) 0.5 mg PO HS PRN PRN Reason: Insomnia Stop: 02/08/25 01:58 Amiodarone HCl (Amiodarone 200 Mg Tab) 200 mg PO TID [facility] Stop: 02/09/25 08:59 Last Admin: 01/10/25 14:03 Dose: 200 mg Atropine Sulfate (Atropine Sulfate 0.1 Mg/Ml 10ml Syr) 0.5 mg IV Q1M PRN PRN Reason: PACU Use-HR<40 &/or Bradycardi Stop: 01/10/25 15:31 Bumetanide (Bumetanide 1 Mg Tab) 1 mg PO DAILY [facility] Stop: 02/08/25 08:59 Last Admin: 01/10/25 09:48 Dose: 1 mg Ephedrine Sulfate (Ephedrine Sulfate 50 Mg/Ml Amp) 5 mg IV Q5M PRN PRN Reason: PACU Use Only-SBP<90 mmHg Stop: 01/10/25 15:31 Heparin Sodium/Dextrose (Heparin 44248 Unit/500 Ml D5w) 25,000 units in 500 mls @ 30 mls/hr IV .[id number] [facility]; Protocol Stop: 02/08/25 01:29 Last Admin: 01/10/25 11:41 Dose: 1,500 units/hr, 30 mls/hr Metoprolol Tartrate (Metoprolol Tartrate 1 Mg/Ml Vial) 5 mg IV Q6 PRN PRN Reason: Tachycardia Stop: 02/08/25 01:58 Last Admin: 01/09/25 23:07 Dose: 5 mg Metoprolol Tartrate (Metoprolol Tartrate 50 Mg Tab) 50 mg PO BID [facility] Stop: 02/08/25 20:59 Last Admin: 01/10/25 09:50 Dose: 50 mg Nitroglycerin (Nitroglycerin Sl 0.4 Mg/Tab Tab) 0.4 mg SL Q5M PRN PRN Reason: Chest Pain Stop: 02/08/25 01:58 Polyethylene Glycol (Polyethylene (Miralax) 17 Gm Pack) 17 gm PO DAILY PRN PRN Reason: Constipation Stop: 02/08/25 01:58 Potassium Chloride (Potassium Chloride 10 Meq Tabcr) 10 meq PO DAILY [facility] Stop: 02/08/25 08:59 Last Admin: 01/10/25 10:05 Dose: 10 meq Spironolactone (Spironolactone 25 Mg Tab) 25 mg PO DAILY [facility] Stop: 02/08/25 08:59 Last Admin: 01/10/25 09:51 Dose: 25 mg
[2025-01-10] MEDS: COUGH DROP (SUGAR FREE) LOZ 24 LOZ/1 BOX BUCCAL PRN (14:40)
--- NOTE | 2025-01-10 14:52 | Electrocardiogram Report ---
Test Reason : Blood Pressure : */* mmHG Vent. Rate : 117 BPM Atrial Rate : * BPM P-R Int : * ms QRS Dur : 104 ms QT Int : 342 ms P-R-T Axes : * 8 145 degrees QTcB Int : 477 ms Atrial fibrillation with rapid ventricular response Minimal voltage criteria for LVH, may be normal variant Nonspecific ST and T wave abnormality Abnormal ECG When compared with ECG of 09-Jan-2025 13:00, Nonspecific T wave abnormality, worse in Lateral leads Confirmed by Jony John ([id number]) on 01/10/2025 2:52:05 PM Referred By: REFERRED SELF Confirmed By: Jony John
--- NOTE | 2025-01-10 15:24 | Electrocardiogram Report ---
Test Reason : Blood Pressure : */* mmHG Vent. Rate : 83 BPM Atrial Rate : 83 BPM P-R Int : 168 ms QRS Dur : 100 ms QT Int : 396 ms P-R-T Axes : 48 2 78 degrees QTcB Int : 465 ms Normal sinus rhythm Possible Left atrial enlargement Nonspecific ST and T wave abnormality Abnormal ECG When compared with ECG of 10-Jan-2025 04:35, Sinus rhythm has replaced Atrial fibrillation Non-specific change in ST segment in Inferior leads Nonspecific T wave abnormality, improved in Lateral leads Confirmed by Jony John ([id number]) on 01/10/2025 3:24:18 PM Referred By: REFERRED SELF Confirmed By: Jony John
--- NOTE | 2025-01-10 15:51 | Hospitalist Progress Note ---
Date of Service January 10, 2025 Assessment & Plan (1) Atrial fibrillation with rapid ventricular response: Plan: 69-year-old female with past medical history significant for obstructive sleep apnea on BiPAP, difficult intubation, chronic allergic rhinitis, history of atrial fibrillation, dilated cardiomyopathy, chronic CHF with reduced ejection fraction and diastolic dysfunction, hypertension, pulmonary hypertension, dilatation of colon, morbid obesity, iron deficiency anemia due to chronic blood loss, history of diffuse large B-cell lymphoma, presents with rapid A-fib. Patient says since last she is feeling palpitations on and off and today they are persistent. She is feeling short of breath and some tightness in her chest. Also some abdominal discomfort. She is also having some sweating. Denies headache. No dizziness. Vision is okay. No runny nose or sore throat. No cough. No fevers. No nausea. Normal bowel and bladder movements. Patient says she is no longer on amiodarone. Few months back she also stopped metoprolol because her blood pressure was running low. Says she also stopped Eliquis because being in regular rhythm. In September 2024 and she was admitted for rapid A-fib and was status post cardioversion. She had a ablation done in 2014 and also in October 2023. A-fib with rapid ventricular response At time of admission - patient no longer on amiodarone and metoprolol and Eliquis History of cardioversion. History of ablation Received IV Lopressor 5 mg x 3 in ER Rates better controlled after that but not quite Started IV heparin - plan to switch to Eliquis tonight Continue with Lopressor p.o. 25 twice daily IV Lopressor as needed CTA chest no acute findings echo Telemetry Cardiology consulted - pt is now s/p CRYSTAL and cardioversion, currently in NSR. Metoprolol and amiodarone resumed. History of sleep apnea On BiPAP nightly Chronic systolic and diastolic CHF Echo in September 2024 EF 25 to 30% Continue home Bumex Aldactone and potassium supplement Monitor for volume overload Morbid obesity Counseling 4 mm right medial lung nodule On CT scan Needs follow-up Abdominal discomfort CT scan no acute findings CT scan shows cholelithiasis and nonobstructive pelvic ventral hernia abdominal discomfort resolved now DVT prophylaxis IV heparin Disposition Telemetry Full code. Admission and Anticipated Discharge Date Admission Date: January 09, 2025 Subjective Pt seen in follow up of Afib RVR s/p CRYSTAL/ cardioversion earlier today Currently sitting up in chair in NAD, pt's son present at the bedside Pt denies any chest pain, shortness of breath, no abd. pain, n/v Medications resumed - metoprolol, amiodarone Review of Systems Review of Systems: All systems reviewed & are unremarkable except as noted in Subjective Physical Exam Physical Exam: General- WD/WN F in NAD Head- atraumatic Eyes- PERRL. Neck- supple, no JVD. Lungs- clear to auscultation no wheezing or crackles Heart- regular, no murmur Abdomen- normal bowel sounds, soft, nontender, no distension Extremities- no pretibial edema, no erythema seen Neuro- alert, oriented PERRL, no facial palsy; no dysarthria; moves extremities Results & Data Results & Data Vital Signs (Past 12 Hours) Vital Signs Temp Pulse Pulse Resp BP Pulse Ox O2 Del Method 01/10/25 15:36 68 01/10/25 15:08 36.5 C 69 19 90/66 L 96 Room Air 01/10/25 12:23 36.3 C L 73 22 101/72 95 Room Air 01/10/25 08:50 36.4 C L 83 23 99/68 L 98 Room Air 01/10/25 08:30 84 17 100/70 95 Room Air 01/10/25 08:15 80 16 106/63 93 Room Air 01/10/25 08:00 36.5 C 82 15 98/66 L 97 Oxymask 01/10/25 07:13 36.6 C 106 H 18 107/78 95 Room Air 01/10/25 06:00 105 H O2 Flow Rate 01/10/25 15:36 01/10/25 15:08 01/10/25 12:23 01/10/25 08:50 01/10/25 08:30 01/10/25 08:15 01/10/25 08:00 6 01/10/25 07:13 01/10/25 06:00 Laboratory Results 01/10/25 01/09/25 Range/Units 06:15 20:29 WBC 11.38 H (4.8-10.8) K/ul RBC 4.78 (4.20-5.40) M/uL Hgb 14.7 (12.0-16.0) g/dl Hct 43.7 (37.0-47.0) % MCV 91.4 (80.0-100.0) fL MCH 30.8 (25.0-34.0) pg MCHC 33.6 (32.0-36.0) g/dL RDW Std Deviation 46.5 H (36.4-46.3) fL RDW Coeff of Stevan 14.0 (11.5-14.5) % Plt Count 254 (130-400) K/uL MPV 9.9 (9.4-12.4) fL Heparin Anti-Xa, Unfract 0.68 (0.3-0.7) IU/ml Sodium 139 (136-145) mmol/L Potassium 3.9 (3.5-5.1) mmol/L Chloride 104 (98-107) mmol/L Carbon Dioxide 26 (21-32) mmol/L Anion Gap 9 (3-11) BUN 25 H (6-23) mg/dl Creatinine 0.99 (0.6-1.2) mg/dl Est Cr Clr Drug Dosing 70.5 ml/min eGFR 61.34 BUN/Creatinine Ratio 25.3 H (10-20) Glucose 114 H (70-99(Fasting)) mg/dl Calcium 9.7 (8.6-10.3) mg/dl Phosphorus 3.4 (2.5-4.9) mg/dl Magnesium 2.2 (1.7-2.4) mg/dl Troponin I High Sens 8.6 (0-14) pg/ml Medications Administered Current Inpatient Medications Acetaminophen (Acetaminophen 325 Mg Tab) 650 mg PO Q4H PRN PRN Reason: Pain or Fever Stop: 02/08/25 01:58 Alprazolam (Alprazolam 0.5 Mg Tablet) 0.5 mg PO HS PRN PRN Reason: Insomnia Stop: 02/08/25 01:58 Amiodarone HCl (Amiodarone 200 Mg Tab) 200 mg PO TID [facility] Stop: 02/09/25 08:59 Last Admin: 01/10/25 14:03 Dose: 200 mg Apixaban (Apixaban 5 Mg Tablet) 5 mg PO BID [facility] Stop: 02/09/25 20:59 Bumetanide (Bumetanide 1 Mg Tab) 1 mg PO DAILY [facility] Stop: 02/08/25 08:59 Last Admin: 01/10/25 09:48 Dose: 1 mg Heparin Sodium/Dextrose (Heparin 16371 Unit/500 Ml D5w) 25,000 units in 500 mls @ 30 mls/hr IV .[id number] [facility]; Protocol Stop: 01/10/25 20:59 Last Admin: 01/10/25 11:41 Dose: 1,500 units/hr, 30 mls/hr Menthol (Cough Drop (Sugar Free) Tash 24 Tash/1 Box) 1 tash BUCCAL Q4 PRN PRN Reason: Sore Throat Stop: 02/09/25 14:14 Last Admin: 01/10/25 14:40 Dose: 24 tash Metoprolol Tartrate (Metoprolol Tartrate 1 Mg/Ml Vial) 5 mg IV Q6 PRN PRN Reason: Tachycardia Stop: 02/08/25 01:58 Last Admin: 01/09/25 23:07 Dose: 5 mg Metoprolol Tartrate (Metoprolol Tartrate 50 Mg Tab) 50 mg PO BID [facility] Stop: 02/08/25 20:59 Last Admin: 01/10/25 09:50 Dose: 50 mg Nitroglycerin (Nitroglycerin Sl 0.4 Mg/Tab Tab) 0.4 mg SL Q5M PRN PRN Reason: Chest Pain Stop: 02/08/25 01:58 Polyethylene Glycol (Polyethylene (Miralax) 17 Gm Pack) 17 gm PO DAILY PRN PRN Reason: Constipation Stop: 02/08/25 01:58 Potassium Chloride (Potassium Chloride 10 Meq Tabcr) 10 meq PO DAILY [facility] Stop: 02/08/25 08:59 Last Admin: 01/10/25 10:05 Dose: 10 meq Spironolactone (Spironolactone 25 Mg Tab) 25 mg PO DAILY [facility] Stop: 02/08/25 08:59 Last Admin: 01/10/25 09:51 Dose: 25 mg
[2025-01-10] MEDS: BENZOCAINE/TETRACAIN/BUTAM 50 APPLN/5 GM CAN EXT ONE (19:02)
[2025-01-10] MEDS: APIXABAN 5 MG TABLET PO SCH (21:02)
[2025-01-11 07:36] LABS: Hematocrit (blood only) 42.4 % (37.0-47.0); Hemoglobin 14.2 g/dl (12.0-16.0); Mean Corpuscular Hemoglobin 30.9 pg (25.0-34.0); Mean Corpuscular Hgb Conc 33.5 g/dL (32.0-36.0); Mean Corpuscular Volume 92.4 fL (80.0-100.0); Mean Platelet Volume 9.8 fL (9.4-12.4); Platelet Count 243 K/uL (130-400); RDW Coefficient of Variation 14.2 % (11.5-14.5); RDW Standard Deviation 47.6 fL (36.4-46.3); Red Blood Count 4.59 M/uL (4.20-5.40); White Blood Count 8.88 K/ul (4.8-10.8)
[2025-01-11 07:57] LABS: BUN Creatinine Ratio 26.5 (10-20); Calcium 9.7 mg/dl (8.6-10.3); Creatinine Clr Calc Pharmacy 71.2 ml/min; Magnesium 2.1 mg/dl (1.7-2.4); Phosphorus 3.7 mg/dl (2.5-4.9); Potassium 4.2 mmol/L (3.5-5.1)
[2025-01-11 08:40] LABS: ANTI-Xa, UFH(UnfractionatedHep 0.75 IU/ml (0.3-0.7)
--- NOTE | 2025-01-11 11:37 | Electrocardiogram Report ---
Test Reason : Blood Pressure : */* mmHG Vent. Rate : 60 BPM Atrial Rate : 60 BPM P-R Int : 168 ms QRS Dur : 100 ms QT Int : 464 ms P-R-T Axes : 32 4 59 degrees QTcB Int : 464 ms Sinus rhythm with occasional Premature ventricular complexes Otherwise normal ECG When compared with ECG of 10-Jan-2025 08:09, Premature ventricular complexes are now Present Confirmed by Jony John ([id number] on 01/11/2025 11:37:33 AM Referred By: REFERRED SELF Confirmed By: Jony John
--- NOTE | 2025-01-11 11:47 | Hospitalist Progress Note ---
Date of Service January 11, 2025 Assessment & Plan (1) Atrial fibrillation with rapid ventricular response: Plan: 69-year-old female with past medical history significant for obstructive sleep apnea on BiPAP, difficult intubation, chronic allergic rhinitis, history of atrial fibrillation, dilated cardiomyopathy, chronic CHF with reduced ejection fraction and diastolic dysfunction, hypertension, pulmonary hypertension, dilatation of colon, morbid obesity, iron deficiency anemia due to chronic blood loss, history of diffuse large B-cell lymphoma, presents with rapid A-fib. Patient says since last she is feeling palpitations on and off and today they are persistent. She is feeling short of breath and some tightness in her chest. Also some abdominal discomfort. She is also having some sweating. Denies headache. No dizziness. Vision is okay. No runny nose or sore throat. No cough. No fevers. No nausea. Normal bowel and bladder movements. Patient says she is no longer on amiodarone. Few months back she also stopped metoprolol because her blood pressure was running low. Says she also stopped Eliquis because being in regular rhythm. In September 2024 and she was admitted for rapid A-fib and was status post cardioversion. She had a ablation done in 2014 and also in October 2023. A-fib with rapid ventricular response At time of admission - patient no longer on amiodarone and metoprolol and Eliquis History of cardioversion. History of ablation Received IV Lopressor 5 mg x 3 in ER Rates better controlled after that but not quite Started IV heparin - now switched to Eliquis Continue with Lopressor p.o. 25 twice daily IV Lopressor as needed CTA chest no acute findings echo Telemetry Cardiology consulted - pt is now s/p CRYSTAL and cardioversion, currently in NSR. Metoprolol and amiodarone resumed. 01/11 episode of NSVT, K and Mag levels normal - cont. to monitor inpt - discussed w/ cardiology History of sleep apnea On BiPAP nightly Chronic systolic and diastolic CHF Echo in September 2024 EF 25 to 30% Continue home Bumex Aldactone and potassium supplement Monitor for volume overload Morbid obesity Counseling 4 mm right medial lung nodule On CT scan Needs follow-up Abdominal discomfort CT scan no acute findings CT scan shows cholelithiasis and nonobstructive pelvic ventral hernia abdominal discomfort resolved now DVT prophylaxis IV heparin -> eliquis Disposition Telemetry Full code. Admission and Anticipated Discharge Date Admission Date: January 09, 2025 Subjective Pt seen in follow up of Afib RVR s/p CRYSTAL/ cardioversion yesterday Currently sitting up in chair in NAD Pt denies any chest pain, shortness of breath, no abd. pain, n/v Medications resumed - metoprolol, amiodarone She is feeling well but later after being seen she had NSVT -> discussed w/ cardiology and will cont. to observe in the hospital Review of Systems Review of Systems: All systems reviewed & are unremarkable except as noted in Subjective Physical Exam Physical Exam: General- WD/WN F in NAD Head- atraumatic Eyes- PERRL. Neck- supple, no JVD. Lungs- clear to auscultation no wheezing or crackles Heart- regular, no murmur Abdomen- normal bowel sounds, soft, nontender, no distension Extremities- no pretibial edema, no erythema seen Neuro- alert, oriented PERRL, no facial palsy; no dysarthria; moves extremities Results & Data Results & Data Vital Signs (Past 12 Hours) Vital Signs Temp Pulse Pulse Resp BP BP Pulse Ox 01/11/25 11:15 36.6 C 61 18 104/71 92 01/11/25 07:17 36.4 C L 65 18 115/68 91 01/11/25 06:00 71 01/11/25 02:51 36.7 C 65 18 113/73 92 01/11/25 00:00 76 O2 Del Method 01/11/25 11:15 Room Air 01/11/25 07:17 Room Air 01/11/25 06:00 01/11/25 02:51 CPAP 01/11/25 00:00 Laboratory Results 01/11/25 Range/Units 07:10 WBC 8.88 (4.8-10.8) K/ul RBC 4.59 (4.20-5.40) M/uL Hgb 14.2 (12.0-16.0) g/dl Hct 42.4 (37.0-47.0) % MCV 92.4 (80.0-100.0) fL MCH 30.9 (25.0-34.0) pg MCHC 33.5 (32.0-36.0) g/dL RDW Std Deviation 47.6 H (36.4-46.3) fL RDW Coeff of Stevan 14.2 (11.5-14.5) % Plt Count 243 (130-400) K/uL MPV 9.8 (9.4-12.4) fL Heparin Anti-Xa, Unfract 0.75 H* (0.3-0.7) IU/ml Sodium 138 (136-145) mmol/L Potassium 4.2 (3.5-5.1) mmol/L Chloride 103 (98-107) mmol/L Carbon Dioxide 27 (21-32) mmol/L Anion Gap 8 (3-11) BUN 26 H (6-23) mg/dl Creatinine 0.98 (0.6-1.2) mg/dl Est Cr Clr Drug Dosing 71.2 ml/min eGFR 62.09 BUN/Creatinine Ratio 26.5 H (10-20) Glucose 97 (70-99(Fasting)) mg/dl Calcium 9.7 (8.6-10.3) mg/dl Phosphorus 3.7 (2.5-4.9) mg/dl Magnesium 2.1 (1.7-2.4) mg/dl Medications Administered Current Inpatient Medications Acetaminophen (Acetaminophen 325 Mg Tab) 650 mg PO Q4H PRN PRN Reason: Pain or Fever Stop: 02/08/25 01:58 Alprazolam (Alprazolam 0.5 Mg Tablet) 0.5 mg PO HS PRN PRN Reason: Insomnia Stop: 02/08/25 01:58 Amiodarone HCl (Amiodarone 200 Mg Tab) 200 mg PO TID [facility] Stop: 02/09/25 08:59 Last Admin: 01/11/25 09:02 Dose: 200 mg Apixaban (Apixaban 5 Mg Tablet) 5 mg PO BID [facility] Stop: 02/09/25 20:59 Last Admin: 01/11/25 09:29 Dose: 5 mg Bumetanide (Bumetanide 1 Mg Tab) 1 mg PO DAILY [facility] Stop: 02/08/25 08:59 Last Admin: 01/11/25 09:03 Dose: 1 mg Menthol (Cough Drop (Sugar Free) Tash 24 Tash/1 Box) 1 tash BUCCAL Q4 PRN PRN Reason: Sore Throat Stop: 02/09/25 14:14 Last Admin: 01/10/25 14:40 Dose: 24 tash Metoprolol Tartrate (Metoprolol Tartrate 1 Mg/Ml Vial) 5 mg IV Q6 PRN PRN Reason: Tachycardia Stop: 02/08/25 01:58 Last Admin: 01/09/25 23:07 Dose: 5 mg Metoprolol Tartrate (Metoprolol Tartrate 50 Mg Tab) 50 mg PO BID [facility] Stop: 02/08/25 20:59 Last Admin: 01/11/25 09:03 Dose: 50 mg Nitroglycerin (Nitroglycerin Sl 0.4 Mg/Tab Tab) 0.4 mg SL Q5M PRN PRN Reason: Chest Pain Stop: 02/08/25 01:58 Polyethylene Glycol (Polyethylene (Miralax) 17 Gm Pack) 17 gm PO DAILY PRN PRN Reason: Constipation Stop: 02/08/25 01:58 Potassium Chloride (Potassium Chloride 10 Meq Tabcr) 10 meq PO DAILY [facility] Stop: 02/08/25 08:59 Last Admin: 01/11/25 09:02 Dose: 10 meq Spironolactone (Spironolactone 25 Mg Tab) 25 mg PO DAILY [facility] Stop: 02/08/25 08:59 Last Admin: 01/11/25 09:03 Dose: 25 mg
--- NOTE | 2025-01-11 12:41 | Cardiology Progress Note ---
Date of Service January 11, 2025 Assessment & Plan (1) Atrial fibrillation with rapid ventricular response: (2) Non compliance w medication regimen: (3) Dilated cardiomyopathy: Plan 01/09/25 Patient admitted with recurrent atrial fibrillation with RVR. Last CRYSTAL/CV in Sep 2024. History of 2 prior ablations at [facility] [place]. History of medication intolerances - Failed sotalol and multaq per chart review. Recently on amiodarone, metoprolol succinate. Patient stopped these therapies due to "side effects". She was concerned with amiodarone and thyroid disorder. Her hair was falling out. TSH is normal. She reports that [facility] [place] stopped metoprolol due to bradycardia, but this is also whe n she was on amiodarone. 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 HR's minimally improved with IV metoprolol. Oral metoprolol tartrate initiated at 25 mg BID. Increase to 50 mg BID. LVEF severely reduced at 20%, stable from last evaluation. Long discussion today in patient's room regarding multiple options and treatment for afib. She is resistant to medications and being on medications residential. We discussed ongoing rate control with metoprolol vs rhythm control and retrial of amiodarone vs Tikosyn. She is aware of the 3 days admission for Tikosyn load. We also discussed future ablation with [facility] [place] OR possible BIV device implant with AV shiloh ablation. I'm concerned with her history of non compliance that Tikosyn may not be the best medication. Consider reload of amiodarone and future CRYSTAL/DCCV Continue IV heparin for now. Metoprolol titrated to 50 mg BID this morning. 01/10/25 Successful CRYSTAL guided CV this morning restoring NSR. Currently NSR in the 70's Start amiodarone 200 mg TID. Metoprolol 50 mg BID resumed on admission Transition from IV heparin to oral Eliquis 5 mg BID tonight. Turn off heparin when starting Eliquis Continue telemetry overnight. Anticipate discharge tomorrow. Long discussion about compliance with her medications upon returning home. 01/11/25: Patient maintaining NSR s/p CRYSTAL CV yesterday. This morning, patient had 2 bouts of non sustained VT. She was asymptomatic. Stable labs and electrolytes She has a history of non sustained VT with low LVEF. Continue amiodarone 200 mg TID today and metoprolol 50 mg BID. Transition to metoprolol succinate given reduced LVEF Initially patient to be discharged this morning, but after this arrhythmia, message sent to hospitalist to keep her on telemetry until tomorrow. She needs f/u with EP to discuss future ongoing treatment of afib and possible AICD implantation as well. She is intolerant of afib. Future repeat ablation vs AV shiloh ablation could be considered. She has followed with [facility] [place] EP in the past. Most recently saw EP with [facility] but due to insurance changes, she reports she can no longer follow with [facility]. Case discussed with Dr. Santiago I spent a total of 30 minutes on the date of service in preparation, delivery, and documentation of the care provided to this patient, excluding any time spent in the performance of separately billed services. Gayle Marx PA-C Department of Cardiology, [facility] This chart was completed in part utilizing Speech Voice Recognition Software. Grammatical errors, random word insertions, pronoun errors, and incomplete sentences are an occasional consequence of this system due to software limitations, ambient noise, and hardware issues. Any formal questions or concern s about the content, text, or information contained within the body of this dictation should be directly addressed to the provider for clarification. Admission and Anticipated Discharge Date Admission Date: January 09, 2025 Supervising Physician Co-Signing Physician Notes I have personally performed a history and physical examination on the patient. I have reviewed the advance practitioner's documentation, and I agree with, and take responsibility for the plan of care. Paroxysmal atrial fibrillation with rapid ventricular response secondary to noncompliance with AV shiloh blocking agents and antiarrhythmic therapy. Beta- archie restarted and IV anticoagulation initiated 01/09/2025. Transesophageal echocardiogram and successful DCCV performed 01/10/2025. Remains in sinus rhythm overnight. Notes mild jaw discomfort related to "jaw thrust" performed by anesthesia during CRYSTAL to improve oxygenation. Overall feeling better after cardioversion. Tolerating apixaban, amiodarone, metoprolol, spironolactone, and Bumex. Nonsustained ventricular tachycardia recorded on telemetry this morning without associated symptoms. Continue current medications. Possible discharge in 24 to 48 hours. I spent a total of 35 minutes on the date of service in preparation, delivery, and documentation of the care provided to this patient, excluding any time spent in the performance of separately billed services. Sebastian Santiago DO, [facility] Subjective Patient sitting in chair at time of evaluation. Anxious for discharge. No palpitations or tachypalpitations. No chest pain or dyspnea. No dizziness. After evaluation, contacted by nurse via tiger text that the patient had 2 runs of non sustained VT. First episode was 21 beats and second episode was 10 beats long. Patient was asymptomatic Review of Systems Review of Systems: All systems reviewed & are unremarkable except as noted in HPI & below Physical Exam Constitutional: WD/WN, vitals as above well developed and + obese; no acute distress Neck: trachea midline, no thyromegaly Respiratory: normal respiratory effort, lungs clear to auscultation Cardiovascular: Rate/Rhythm: regular rate, regular rhythm, + tachycardic and + irregularly irregular Heart Sounds: no murmur (No audible murmurs ) Vessels: no JVD Extremities: no edema Gastrointestinal (Abdomen): normal bowel sounds, soft, nontender, no hepatosplenomegaly Neurologic: PERRL, EOMI, accommodation nl, no face palsy, no dysarthria Results & Data Vital Signs (Past 12 Hours) Vital Signs Temp Pulse Pulse Resp BP BP Pulse Ox 01/11/25 11:15 36.6 C 61 18 104/71 92 01/11/25 07:17 36.4 C L 65 18 115/68 91 01/11/25 06:00 71 01/11/25 02:51 36.7 C 65 18 113/73 92 O2 Del Method 01/11/25 11:15 Room Air 01/11/25 07:17 Room Air 01/11/25 06:00 01/11/25 02:51 CPAP Laboratory Results CBC 01/11/25 Range/Units 07:10 WBC 8.88 (4.8-10.8) K/ul RBC 4.59 (4.20-5.40) M/uL Hgb 14.2 (12.0-16.0) g/dl Hct 42.4 (37.0-47.0) % Plt Count 243 (130-400) K/uL Comprehensive Metabolic Panel 01/11/25 Range/Units 07:10 Sodium 138 (136-145) mmol/L Potassium 4.2 (3.5-5.1) mmol/L Chloride 103 (98-107) mmol/L Carbon Dioxide 27 (21-32) mmol/L BUN 26 H (6-23) mg/dl Creatinine 0.98 (0.6-1.2) mg/dl Glucose 97 (70-99(Fasting)) mg/dl Calcium 9.7 (8.6-10.3) mg/dl Intake and Output 01/10/25 01/11/25 01/11/25 22:59 06:59 14:59 Intake Total 523 / 1383 120 / 1383 Balance 523 / 1383 120 / 1383 Intake: IV 223 / 723 Heparin 82525 Unit/500 ml D5w 223 / 723 25,000 units In 500 ml @ 1,500 UNITS/HR 30 mls/hr IV .[id number] [facility] Rx#:[id number] Oral 300 / 660 120 / 660 Other: # Unmeasured Voids 2 1 Weight 122.2 kg Weight Measurement Method [facility] Diagnostic Findings Telemetry reviewed: NSR in the 60-70's; 2 runs of non sustained VT around 10:20 AM lasting 21 and 10 beats EKG reviewed this morning 01/11/25: NSR at 60 bmp occ PVC QT/QTC 464/464 ms Medications Administered Current Inpatient Medications Acetaminophen (Acetaminophen 325 Mg Tab) 650 mg PO Q4H PRN PRN Reason: Pain or Fever Stop: 02/08/25 01:58 Alprazolam (Alprazolam 0.5 Mg Tablet) 0.5 mg PO HS PRN PRN Reason: Insomnia Stop: 02/08/25 01:58 Amiodarone HCl (Amiodarone 200 Mg Tab) 200 mg PO TID [facility] Stop: 02/09/25 08:59 Last Admin: 01/11/25 09:02 Dose: 200 mg Apixaban (Apixaban 5 Mg Tablet) 5 mg PO BID [facility] Stop: 02/09/25 20:59 Last Admin: 01/11/25 09:29 Dose: 5 mg Bumetanide (Bumetanide 1 Mg Tab) 1 mg PO DAILY [facility] Stop: 02/08/25 08:59 Last Admin: 01/11/25 09:03 Dose: 1 mg Menthol (Cough Drop (Sugar Free) Tash 24 Tash/1 Box) 1 tash BUCCAL Q4 PRN PRN Reason: Sore Throat Stop: 02/09/25 14:14 Last Admin: 01/10/25 14:40 Dose: 24 tash Metoprolol Tartrate (Metoprolol Tartrate 1 Mg/Ml Vial) 5 mg IV Q6 PRN PRN Reason: Tachycardia Stop: 02/08/25 01:58 Last Admin: 01/09/25 23:07 Dose: 5 mg Metoprolol Tartrate (Metoprolol Tartrate 50 Mg Tab) 50 mg PO BID [facility] Stop: 02/08/25 20:59 Last Admin: 01/11/25 09:03 Dose: 50 mg Nitroglycerin (Nitroglycerin Sl 0.4 Mg/Tab Tab) 0.4 mg SL Q5M PRN PRN Reason: Chest Pain Stop: 02/08/25 01:58 Polyethylene Glycol (Polyethylene (Miralax) 17 Gm Pack) 17 gm PO DAILY PRN PRN Reason: Constipation Stop: 02/08/25 01:58 Potassium Chloride (Potassium Chloride 10 Meq Tabcr) 10 meq PO DAILY [facility] Stop: 02/08/25 08:59 Last Admin: 01/11/25 09:02 Dose: 10 meq Spironolactone (Spironolactone 25 Mg Tab) 25 mg PO DAILY [facility] Stop: 02/08/25 08:59 Last Admin: 01/11/25 09:03 Dose: 25 mg
[2025-01-11] MEDS: METOPROLOL SUCC 50MG EXT REL TAB PO SCH (20:55)
[2025-01-11] MEDS: POLYETHYLENE (MIRALAX) 17 GM PACK PO PRN (21:01)
[2025-01-12] MEDS: ALPRAZolam 0.5 MG TABLET PO PRN (02:01)
[2025-01-12 03:46] VITALS: RESP 18
[2025-01-12 07:37] LABS: Hematocrit (blood only) 43.5 % (37.0-47.0); Hemoglobin 14.6 g/dl (12.0-16.0); Mean Corpuscular Hemoglobin 30.6 pg (25.0-34.0); Mean Corpuscular Hgb Conc 33.6 g/dL (32.0-36.0); Mean Corpuscular Volume 91.2 fL (80.0-100.0); Mean Platelet Volume 9.8 fL (9.4-12.4); Platelet Count 242 K/uL (130-400); RDW Coefficient of Variation 13.7 % (11.5-14.5); Red Blood Count 4.77 M/uL (4.20-5.40); White Blood Count 8.19 K/ul (4.8-10.8)
[2025-01-12 07:54] LABS: BUN Creatinine Ratio 21.4 (10-20); Calcium 9.6 mg/dl (8.6-10.3); Creatinine Clr Calc Pharmacy 83.1 ml/min; Magnesium 2.1 mg/dl (1.7-2.4); Phosphorus 3.7 mg/dl (2.5-4.9); Potassium 4.2 mmol/L (3.5-5.1)
[2025-01-12 11:48] VITALS: O2SAT 96
--- NOTE | 2025-01-12 13:13 | Cardiology Progress Note ---
Date of Service January 12, 2025 Assessment & Plan (1) Atrial fibrillation with rapid ventricular response: (2) Non compliance w medication regimen: (3) Dilated cardiomyopathy: Plan 01/09/25 Patient admitted with recurrent atrial fibrillation with RVR. Last CRYSTAL/CV in Sep 2024. History of 2 prior ablations at [facility]. History of medication intolerances - Failed sotalol and multaq per chart review. Recently on amiodarone, metoprolol succinate. Patient stopped these therapies due to "side effects". She was concerned with amiodarone and thyroid disorder. Her hair was falling out. TSH is normal. She reports that [facility] stopped metoprolol due to bradycardia, but this is also whe n she was on amiodarone. 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 HR's minimally improved with IV metoprolol. Oral metoprolol tartrate initiated at 25 mg BID. Increase to 50 mg BID. LVEF severely reduced at 20%, stable from last evaluation. Long discussion today in patient's room regarding multiple options and treatment for afib. She is resistant to medications and being on medications detention. We discussed ongoing rate control with metoprolol vs rhythm control and retrial of amiodarone vs Tikosyn. She is aware of the 3 days admission for Tikosyn load. We also discussed future ablation with [facility] OR possible BIV device implant with AV shiloh ablation. I'm concerned with her history of non compliance that Tikosyn may not be the best medication. Consider reload of amiodarone and future CRYSTAL/DCCV Continue IV heparin for now. Metoprolol titrated to 50 mg BID this morning. 01/10/25 Successful CRYSTAL guided CV this morning restoring NSR. Currently NSR in the 70's Start amiodarone 200 mg TID. Metoprolol 50 mg BID resumed on admission Transition from IV heparin to oral Eliquis 5 mg BID tonight. Turn off heparin when starting Eliquis Continue telemetry overnight. Anticipate discharge tomorrow. Long discussion about compliance with her medications upon returning home. 01/11/25: Patient maintaining NSR s/p CRYSTAL CV yesterday. This morning, patient had 2 bouts of non sustained VT. She was asymptomatic. Stable labs and electrolytes She has a history of non sustained VT with low LVEF. Continue amiodarone 200 mg TID today and metoprolol 50 mg BID. Transition to metoprolol succinate given reduced LVEF Initially patient to be discharged this morning, but after this arrhythmia, message sent to hospitalist to keep her on telemetry until tomorrow. She needs f/u with EP to discuss future ongoing treatment of afib and possible AICD implantation as well. She is intolerant of afib. Future repeat ablation vs AV shiloh ablation could be considered. She has followed with [facility] EP in the past. Most recently saw EP with [facility] but due to insurance changes, she reports she can no longer follow with [facility]. 01/12/25: No recurrent arrhythmias overnight or this morning. No atrial fibrillation or non sustained VT Continue amiodarone 200 mg BID on discharge for 14 days, then reduce to 200 mg daily. She was transitioned from metoprolol tartrate to metoprolol succinate 50 mg BID. continue on discharge. Continue eliquis 5 mg BID. Long discussion about medication compliance. Patient agreeable. We discussed potential need for future PPM/AICD for arrhythmias and non sustained VT with low EF. She is understanding and wishes to see [place] EP due to insurance changes. She is scheduling an appt. External wearable defibrillatory discussed but patient is not interested in pursing. She is aware of her risks of SCD due to arrhythmias. Stable for discharge today. Message sent to hospitalist. Will arrange hospital f/u with [facility], although patient is unsure if she can keep this appt due to insurance. she was aware to call her [facility] EP as well if she can't get in with [place] EP. Case discussed with Dr. Santiago I spent a total of 30 minutes on the date of service in preparation, delivery, and documentation of the care provided to this patient, excluding any time spent in the performance of separately billed services. Gayle Marx PA-C Department of Cardiology, [facility] This chart was completed in part utilizing Speech Voice Recognition Software. Grammatical errors, random word insertions, pronoun errors, and incomplete sentences are an occasional consequence of this system due to software limitations, ambient noise, and hardware issues. Any formal questions or concerns about the content, text, or information contained within the body of this dictation should be directly addressed to the provider for clarification. Admission and Anticipated Discharge Date Admission Date: January 09, 2025 Supervising Physician Co-Signing Physician Notes I have personally performed a history and physical examination on the patient. I have reviewed the advance practitioner's documentation, and I agree with, and take responsibility for the plan of care. Paroxysmal atrial fibrillation with rapid ventricular response secondary to noncompliance with AV shiloh blocking agents and antiarrhythmic therapy. Beta- archie restarted and IV anticoagulation initiated 01/09/2025. Transesophageal echocardiogram and successful DCCV performed 01/10/2025. Remains in sinus rhythm since cardioversion. No recurrent ventricular tachycardia overnight. Tolerating apixaban, amiodarone, metoprolol, spironolactone, and Bumex. Natural history and pathophysiology of paroxysmal atrial fibrillation and cardiomyopathy reviewed. Discussed importance of compliance with current cardiovascular medical therapies. Also discussed possible addition of external defibrillator "LifeVest" prior to discharge. Patient declines at this time. She is scheduled for follow-up with [facility] electrophysiology. I spent a total of 35 minutes on the date of service in preparation, delivery, and documentation of the care provided to this patient, excluding any time spent in the performance of separately billed services. Sebastian Santiago DO, [facility] Subjective Patient resting in chair. Feeling well. hoping to be discharged. She had 2 epi sodes of non sustained VT yesterday but had no symptoms. She has had no arrhythmias overnight. Denies acute complaints. Tolerating meds. Review of Systems Review of Systems: All systems reviewed & are unremarkable except as noted in HPI & below Physical Exam Constitutional: WD/WN, vitals as above well developed and + obese; no acute distress Neck: trachea midline, no thyromegaly Respiratory: normal respiratory effort, lungs clear to auscultation Cardiovascular: Rate/Rhythm: regular rate, regular rhythm, + tachycardic and + irregularly irregular Heart Sounds: no murmur (No audible murmurs ) Vessels: no JVD Extremities: no edema Gastrointestinal (Abdomen): normal bowel sounds, soft, nontender, no hepatosplenomegaly Neurologic: PERRL, EOMI, accommodation nl, no face palsy, no dysarthria Results & Data Vital Signs (Past 12 Hours) Vital Signs Temp Pulse Pulse Resp BP BP Pulse Ox 01/12/25 11:46 36.6 C 61 18 134/85 96 01/12/25 08:03 36.6 C 64 18 111/72 111/72 90 01/12/25 07:47 57 L 01/12/25 03:42 36.8 C 63 18 97/59 L 93 O2 Del Method 01/12/25 11:46 Room Air 01/12/25 08:03 Room Air 01/12/25 07:47 01/12/25 03:42 CPAP Laboratory Results CBC 01/12/25 Range/Units 07:05 WBC 8.19 (4.8-10.8) K/ul RBC 4.77 (4.20-5.40) M/uL Hgb 14.6 (12.0-16.0) g/dl Hct 43.5 (37.0-47.0) % Plt Count 242 (130-400) K/uL Comprehensive Metabolic Panel 01/12/25 Range/Units 07:05 Sodium 139 (136-145) mmol/L Potassium 4.2 (3.5-5.1) mmol/L Chloride 102 (98-107) mmol/L Carbon Dioxide 29 (21-32) mmol/L BUN 18 (6-23) mg/dl Creatinine 0.84 (0.6-1.2) mg/dl Glucose 92 (70-99(Fasting)) mg/dl Calcium 9.6 (8.6-10.3) mg/dl Intake and Output 01/11/25 01/12/25 01/12/25 22:59 06:59 14:59 Intake Total 300 / 1670 120 / 1670 Balance 300 / 1669 120 / 1669 Intake: Oral 300 / 1670 120 / 1670 Other: # Unmeasured Voids 2 1 Weight 122.1 kg Weight Measurement Method Built in [facility] Diagnostic Findings Telemetry reviewed: NSR. No recurrent atrial fib or VT. Medications Administered CBC 01/12/25 Range/Units 07:05 WBC 8.19 (4.8-10.8) K/ul RBC 4.77 (4.20-5.40) M/uL Hgb 14.6 (12.0-16.0) g/dl Hct 43.5 (37.0-47.0) % Plt Count 242 (130-400) K/uL Comprehensive Metabolic Panel 01/12/25 Range/Units 07:05 Sodium 139 (136-145) mmol/L Potassium 4.2 (3.5-5.1) mmol/L Chloride 102 (98-107) mmol/L Carbon Dioxide 29 (21-32) mmol/L BUN 18 (6-23) mg/dl Creatinine 0.84 (0.6-1.2) mg/dl Glucose 92 (70-99(Fasting)) mg/dl Calcium 9.6 (8.6-10.3) mg/dl Intake and Output 01/11/25 01/12/25 01/12/25 22:59 06:59 14:59 Intake Total 300 / 1670 120 / 1670 Balance 300 / 1669 120 / 1669 Intake: Oral 300 / 1670 120 / 1670 Other: # Unmeasured Voids 2 1 Weight 122.1 kg Weight Measurement Method Built in [facility]
--- NOTE | 2025-01-12 14:29 | Discharge Summary ---
Date of Service January 12, 2025 Admission HPI Per Admitting Provider 69-year-old female with past medical history significant for obstructive sleep apnea on BiPAP, difficult intubation, chronic allergic rhinitis, history of atrial fibrillation, dilated cardiomyopathy, chronic CHF with reduced ejection fraction and diastolic dysfunction, hypertension, pulmonary hypertension, dilatation of colon, morbid obesity, iron deficiency anemia due to chronic blood loss, history of diffuse large B-cell lymphoma, presents with rapid A-fib. Patient says since last she is feeling palpitations on and off and today they are persistent. She is feeling short of breath and some tightness in her chest. Also some abdominal discomfort. She is also having some sweating. Denies headache. No dizziness. Vision is okay. No runny nose or sore throat. No cough. No fevers. No nausea. Normal bowel and bladder movements. Patient says she is no longer on amiodarone. Few months back she also stopped metoprolol because her blood pressure was running low. Says she also stopped Eliquis because being in regular rhythm. In September 2024 and she was admitted for rapid A-fib and was status post cardioversion. She had a ablation done in 2014 and also in October 2023. Past medical history. As mentioned above. Past surgical history. . Colonoscopy and EGD. Exploratory laparotomy. Partial removal of thyroid lobe. Enterectomy with small bowel resection. Nasal septal repair. Tympanoplasty mastoidectomy without ossicular reconstruction Social history. No smoking. Alcohol rarely. No drug use. Family history. Father had KS. Mother had pacemaker. Hypertension Brother has A-fib. Sinus heart disorder. Admission Exam Per Admitting Provider General- Not in distress Head- atraumatic Eyes- PERRL. ENT- oropharynx clear Neck- supple, no JVD. Lungs- clear to auscultation no wheezing or crackles Heart- irregular rhythm;tachycardia, no murmur, no gallop. Abdomen- normal bowel sounds, soft, nontender, no distension Extremities- no pretibial edema, no erythema seen Neuro- alert, oriented PERRL, no facial palsy; no dysarthria; moves extremities Principal Diagnosis Atrial fibrillation with RVR Discharge Exam General- WD/WN F in NAD Head- atraumatic Eyes- PERRL. Neck- supple, no JVD. Lungs- clear to auscultation no wheezing or crackles Heart- regular, no murmur Abdomen- normal bowel sounds, soft, nontender, no distension Extremities- no pretibial edema, no erythema seen Neuro- alert, oriented PERRL, no facial palsy; no dysarthria; moves extremities Discharge Data Allergies Allergy/AdvReac Type Severity Reaction Status Date / Time lisinopril Allergy Severe Throat Verified 01/10/25 07:18 tightness Iodinated Contrast Media Allergy Intermediate Rash Verified 01/10/25 07:18 citalopram Allergy Mild Rash Verified 01/10/25 07:18 Beta-Blockers AdvReac Intermediate Increase Verified 01/10/25 07:18 (Beta-Adrenergic Bloc of symptoms/conditions digoxin AdvReac Unknown "Did not Verified 01/10/25 07:18 work" Consultations 01/09/25 00:13 ED Decision to Admit Stat 01/09/25 08:00 Consult Cardiology Routine 01/09/25 13:03 Consult Anesthesiology Routine 01/09/25 13:05 Consult Anesthesiology Routine Procedures Performed Operation Date: 01/10/25 07:30 Actual Procedures p Trans-Esophageal Echo - Sebastian Santiago DO s Cardioversion Wholesale Manager w/Anesthesia - Sebastian Santiago DO s Echo Color Flow - DO antonia Rivera Doppler Echo Limited/Follow Up - Sebastian Santiago DO Ordered Studies 01/08/25 22:25 CT Abd and Pelvis [CT abd pelvis IV con only] Stat FINDINGS: Lung bases: Cardiomegaly. No mass. No consolidation. ABDOMEN: Liver: Unremarkable. No mass. Gallbladder and bile ducts: Multiple small gallstones within the gallbladder. Gallbladder otherwise unremarkable. No ductal dilation. Pancreas: Unremarkable. No mass. No ductal dilation. Spleen: Unremarkable. No splenomegaly. Adrenals: Unremarkable. No mass. Kidneys and ureters: Small bilateral upper lobe cortical cysts. No obstructive uropathy. No obstructing renal or ureteral calculi. No hydronephrosis or hydroureter. Stomach and bowel: No obstruction or ileus. Nonobstructing small bowel containing left ventral lower pelvic hernia to the left of midline. Scattered left and sigmoid colon diverticuli without evidence for diverticulitis. PELVIS: Appendix: No findings to suggest acute appendicitis. Bladder: Contracted. No mass. Reproductive: Atrophic uterus. Ovaries not distinctly visualized. ABDOMEN and PELVIS: Intraperitoneal space: No free air. No free fluid. Bones/joints: No acute fracture. Degenerative changes of the spine. Soft tissues: Unremarkable. Vasculature: Atherosclerotic vascular calcifications. No abdominal aortic aneurysm. Lymph nodes: Unremarkable. No enlarged lymph nodes. IMPRESSION: Nonobstructing small bowel containing lower pelvic ventral hernia to the left of midline. Scattered left and sigmoid colon diverticuli without evidence for diverticulitis. Cholelithiasis. No evidence for acute cholecystitis or biliary obstruction. Senescent changes. CT angio chest PE protocol Stat FINDINGS: Pulmonary arteries: No pulmonary embolism. Mild prominent pulmonary artery suggesting pulmonary artery hypertension. Aorta: No thoracic aortic aneurysm or dissection. Lungs: Mild bilateral dependent atelectasis. No consolidation. Two adjacent 4 mm right middle lobe noncalcified nodular densities. Pleural space: No pleural effusion. No pneumothorax. Heart: Moderate cardiomegaly. No pericardial effusion. No evidence of RV dysfunction. Coronary artery calcifications. Bones/joints: No acute fracture. Degenerative changes of the spine and shoulders. Soft tissues: Unremarkable. Lymph nodes: Unremarkable. No enlarged lymph nodes. IMPRESSION: No pulmonary embolism. Prominent pulmonary arteries suggesting pulmonary artery hypertension. Mild dependent atelectasis. 4 mm right middle lobe noncalcified nodular densities. Fleischner Society Guidelines suggest no follow-up is necessary for patients with a low or high risk of malignancy. Cardiomegaly. Senescent changes. Hospital Course (1) Atrial fibrillation with rapid ventricular response: 69-year-old female with past medical history significant for obstructive sleep apnea on BiPAP, difficult intubation, chronic allergic rhinitis, history of atrial fibrillation, dilated cardiomyopathy, chronic CHF with reduced ejection fraction and diastolic dysfunction, hypertension, pulmonary hypertension, dilatation of colon, morbid obesity, iron deficiency anemia due to chronic blood loss, history of diffuse large B-cell lymphoma, presents with rapid A-fib. Patient says since last she is feeling palpitations on and off and today they are persistent. She is feeling short of breath and some tightness in her chest. Also some abdominal discomfort. She is also having some sweating. Denies headache. No dizziness. Vision is okay. No runny nose or sore throat. No cough. No fevers. No nausea. Normal bowel and bladder movements. Patient says she is no longer on amiodarone. Few months back she also stopped metoprolol because her blood pressure was running low. Says she also stopped Eliquis because being in regular rhythm. In September 2024 and she was admitted for rapid A-fib and was status post cardioversion. She had a ablation done in 2014 and also in October 2023. A-fib with rapid ventricular response At time of admission - patient no longer on amiodarone or metoprolol or Eliquis History of cardioversion. History of ablation Received IV Lopressor 5 mg x 3 in ER Rates better controlled after that but not quite CTA chest no acute findings Started IV heparin - now switched to Eliquis 5 mg bid echo Telemetry Cardiology consulted - pt is now s/p CRYSTAL and cardioversion, currently in NSR. Metoprolol and amiodarone resumed. 01/11 episode of NSVT, K and Mag levels normal - cont. to monitor inpt - discussed w/ cardiology 01/12 will discharge on amiodarone 200 mg twice a day for 14 days, then 200 mg daily. Metoprolol succinate 50 mg twice a day. Eliquis 5 mg twice a day. Because pt has changed insurance she plans to follow up with [facility] PCP and with [facility] EP chili pepper grinder Dr. John, she also has EP chili pepper grinder at [facility] Dr. Medina. History of sleep apnea On BiPAP nightly Chronic systolic and diastolic CHF Echo in September 2024 EF 25 to 30% Continue home Bumex Aldactone and potassium supplement Monitor for volume overload Morbid obesity Counseling 4 mm right medial lung nodule On CT scan Needs follow-up Abdominal discomfort CT scan no acute findings CT scan shows cholelithiasis and nonobstructive pelvic ventral hernia abdominal discomfort resolved now Total Time Total Time Spent Total Time Spent (In Minutes): 40 Discharge Plan Discharge Items Patient Disposition: Home - Self-Care Reason For Visit: RAPID A FIB Discharge Diagnosis: Atrial fibrillation with RVR Activity: Per Instructions section Non-emergency contact: Primary Care Provider and Ems Driver Call non-emergency contact if: you have any medication questions and your symptoms worsen Follow-up/Referrals: PCP,NO [Primary Care Provider] - Diet: Heart Healthy Addtl Attending Provider Instructions: Follow up with your primary care doctor and chili pepper grinder. Take amiodarone 200 mg twice a day for 14 days then switch to 200 mg daily. Take metoprolol succinate 50 mg twice a day. Take Eliquis 5 mg twice a day. Pending Studies at Discharge: No Stand-Alone Forms: My [facility], Smoking Cessation Medications and DC Order Prescriptions: New Eliquis 5 mg Tablet 5 mg PO BID Qty: 60 0RF metoprolol succinate 50 mg Tablet Extended Release 24 Hr 50 mg PO BID Qty: 60 0RF amiodarone 200 mg Tablet 200 mg PO BID Qty: 60 0RF Continued potassium chloride 10 mEq tablet extended release 10 meq PO DAILY Rx Instructions: Takes extra tablet if taking extra bumex spironolactone 25 mg tablet 25 mg PO DAILY bumetanide 1 mg tablet 1 mg PO DAILY Rx Instructions: takes extra tablet as needed for weight gain Xanax 0.5 mg 0.5 mg PO HS PRN (Reason: Insomnia) Discharge Orders: Discharge Order (Routine); Ordered 01/12/25 Ordered By: Jeff Spivey Admission Data Admit Date/Time: 01/09/25 01:09 Attending Provider: Jeff Spivey Admit Provider: Jerome Starr Primary Care Provider: PCP,NO Other Providers: Jerome Starr; Sebastian Santiago; Lissy Foster; Licha Max; Fer Ferguson; Corrina Ferguson; Danis Holder; Alcides Monge; Marcus Washington; Erin Andrews; Jenny Veras; Kaleigh Chavis; Ynes Allen; Judi Butler; Alcides Butler V; Matthew Da Silva; Marcin Chakraborty; Ramona Victoria; Himanshu Mathews; Matthew Galvan; Jasmyn Carr; Iván Reyna; Dayanara Pak; Jayne Ramos; Vane Catherine; Ally Aggarwal; Jeannette Thorpe; Hernan Black; Amadou Rodriguez; Caity Can; Paulino Anderson; Kushal Brewster; Letty Zhu; Ken Mccoy; Kareem Garcia; Ronda Leon; Susan Lugo; Jony Webb; Federico Hwang; Clifton Ferrer; Agustin Espino; Taras Laws; Paulino Sheth Jr; Hi Guerra; Reno Guidry; Ronda Pelaez; Iggy Fowler Jr; Jayne Denney; Vikas Gomes; Radha Lim; Andrea Miller; Hernan De La Garza; Quynh Wright; Alcides Cruz; Darius Temple; Shanel Sung; Nilo Aragon; Gerry Soares; Rhoda Pratt; Mariana Chao; Gayle Sterling; Bety Jewell; Karlie Relily; Ranjit Reilly; Isha John; Shayna Ambriz; Alverto Proctor; Sharmaine Polk; Mounika Espinal; Vane Euceda; Nba Zeng; Brad Forman
[2025-01-12 15:53] VITALS: TEMP 98.4
[2025-01-12 18:13] VITALS: BP 134/85; PULSE 64
== END 2025-01-12 18:13 | disposition home or self-care (01) | DRG 309 ==
LOC: ED 22:07 → EDINP 01-09 01:09 → 2E 01-09 01:59

== ENCOUNTER 2025-06-27 16:24 | Inpatient (IN) ==
--- NOTE | 2025-06-27 16:40 | Emergency Department Note ---
Impression & Plan Atrial fibrillation with rapid ventricular response, Palpitations ED Provider Note NAME: FELIX LAI AGE: 69 SEX: F : 1955 ARRIVES VIA: Walk-In INFORMANT: Patient, ED PROVIDER(S): Thanh Torres DO CHIEF COMPLAINT: Palpitations HPI: The patient is a 69-year-old female who presented to the emergency department for an evaluation of palpitations. The patient states she has a history of paroxysmal atrial fibrillation. She has issues with many medications including amiodarone as well as digoxin. The patient states that she was having issues with her medication compliance recently. She was told to stop one of her medications because they thought her blood pressure was too low. She started having palpitations and fast heart rate today. Her leather goods assembler advised that she come to the emergency department for further evaluation. The patient denies having any leg swelling or weight gain. ROS: See above HPI for pertinent positives & negatives. A total of 10 systems reviewed and were otherwise negative. PAST MEDICAL HISTORY: See Below PAST SURGICAL HISTORY: See Below FAMILY HISTORY: See Below SOCIAL HISTORY: See Below HOME MEDICATIONS: See Below ALLERGIES: See Below VITALS: See Below PHYSICAL EXAMINATION: GENERAL: Patient is awake alert in no acute distress patient is resting comfortably and showing no signs of anxiety EYES: The conjunctivae are clear. The pupils are round and reactive. EARS, NOSE, MOUTH AND THROAT: The nose is without any evidence of any deformity. NECK: The neck is nontender and supple. RESPIRATORY: Normal respiratory effort is noted there is no evidence of wheezing rhonchi or rales CARDIOVASCULAR: Tachycardic and irregular heart sounds were noted to auscultation. There is no definite murmur. GASTROINTESTINAL: The abdomen is soft. Abdomen is nontender. MUSCULOSKELETAL/EXTREMITIES: There is no evidence of gross deformity full range of motion is noted in the hips and shoulders. SKIN: There is no obvious evidence of any rash. There are no petechiae, pallor or cyanosis noted. NEUROLOGIC: Patient is awake alert and oriented x3 MEDICAL DECISION MAKING: The patient is a 69-year-old female who presented to the emergency department for an evaluation of palpitations. The patient has a history of paroxysmal atrial fibrillation. The patient has issues with a lot of different medications that treat her atrial fibrillation. She is sometimes noncompliant with her medications because of these complications. She was treated with beta-blockers in the emergency department. She was also given a small fluid bolus as well as IV magnesium. She was reevaluated multiple times. Her heart rate did improve. Vital signs did reveal acceptable blood pressure. Given the patient's presentation as well as ongoing symptoms I discussed her condition with the on- call [facility] hospitalist. They have agreed to evaluate the patient in the emergency department for further management and disposition. Triage Nursing notes reviewed. Prior medical records reviewed Vital Signs: reviewed and remarkable for tachycardia. Differential diagnosis: Premature contractions, electrolyte abnormality, cardiac dysrhythmia, thyroid dysfunction, pulmonary embolism, infection, gastrointestinal, as well as other pathologies. ER treatment provided: See below Diagnostics interpreted by me: ECG: EKG was obtained in the emergency department. My interpretation is atrial fibrillation at 138 bpm. PVC was appreciated. Nonspecific ST abnormalities were also noted. This was compared to a tracing from January 11, 2025. Atrial fibrillation with RVR has replaced sinus rhythm. Cardiac Monitoring: An order was placed for continuous cardiac monitoring. The monitor shows a rate of 120 bpm with atrial fibrillation and RVR. Laboratory studies: As stated above and show below. Imaging studies: See below. Radiographic imaging was reviewed by myself Consultation(s): I discussed this case with Monalisa who is on-call for the [facility] group. Past Med/Surg History Problem List (Updated 06/27/25 @ 20:46 by Thanh Torres DO) Palpitations (Acute) Depression Hyperlipidemia Atrial fibrillation with rapid ventricular response (Acute) Chronic heart failure with reduced ejection fraction and diastolic dysfunction Dilated cardiomyopathy Sleep apnea BIPAP (compliant) Hypertension WILL on CPAP History of cardioversion (Chronic) Medical History (Updated 06/27/25 @ 20:46 by Thanh Torres DO) Septic arthritis of knee, bilateral Respiratory failure (12/11/14) Hypoxia Atrial fibrillation with rapid ventricular response Chronic mastoiditis Osteoarthritis Depressive disorder Atrial fibrillation with rapid ventricular response (11/23/14) Hypertension (11/23/14) History of hyperlipidemia Sleep apnea Atrial fibrillation Left knee DJD HFrEF (heart failure with reduced ejection fraction) Diarrhea Fibromyalgia Sinus congestion NYHA class 3 heart failure with reduced ejection fraction Cardiac left ventricular ejection fraction 10-20 percent NSVT (nonsustained ventricular tachycardia) Elevated brain natriuretic peptide (BNP) level Abdominal pain Acute dyspnea Non compliance w medication regimen Shortness of breath Diarrhea Obesity Encounter for pre-operative examination History of COVID-19 Dx 09/2021, symptoms resolved except residual taste/smell impairment Osteoarthritis Cancer Lymphoma (2016) s/p treatment in [place], PCP monitors Atrial fibrillation Follows with [facility]/Dr. Medina Surgical History (Updated 06/27/25 @ 19:45 by PAIGE Best) History of partial thyroidectomy History of mastoidectomy History of tympanoplasty History of tympanostomy tube placement Status post tonsillectomy and adenoidectomy History of nasal septoplasty Status post total right knee replacement History of tonsillectomy and adenoidectomy History of ear surgery LEFT X 2-RIGHT X 1-MASTOIDECTOMY/TYMPANOPLASTY History of sinus surgery History of section History of thyroidectomy History of esophagogastroduodenoscopy (EGD) History of colon resection 2015 FOR BLEEDING TUMOR History of colonoscopy History of cardioversion ~2014 Family History Other Hypertension Social History Smoking Status: Never smoker Second Hand Exposure: Yes (FATHER SMOKED); Do You Dip or Chew Tobacco: No; Hx Alcohol Use: No Hx Substance Use: No Preferred Language: Luxembourgish Communication Ability: Effective 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 Field 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 Required: No Beliefs That Will Affect Care: None marital status: Single Current Living Situation: Family Current Living Situation Comment: lives in double house with son current occupational status: disabled Feels Safe at Home: Yes Assistive Devices: Cane, CPAP and Walker Allergies Allergies Allergy/AdvReac Type Severity Reaction Status Date / Time lisinopril Allergy Severe Throat Verified 01/10/25 07:18 tightness Iodinated Contrast Media Allergy Intermediate Rash Verified 01/10/25 07:18 citalopram Allergy Mild Rash Verified 01/10/25 07:18 Beta-Blockers AdvReac Intermediate Increase Verified 01/10/25 07:18 (Beta-Adrenergic Bloc of symptoms/conditions digoxin AdvReac Unknown "Did not Verified 01/10/25 07:18 work" Home Meds Home Medications Medication Instructions Recorded Confirmed potassium chloride 10 mEq 10 meq PO DAILY 01/09/25 06/27/25 tablet,extended release furosemide 40 mg tablet 40 mg PO BID 06/27/25 06/27/25 metoprolol tartrate 25 mg tablet 12.5 mg PO BID 06/27/25 06/27/25 Previous Rx's Medication Instructions Recorded apixaban 5 mg tablet (Eliquis) 5 mg PO BID #60 tabs 01/12/25 Results & Data (ED) Vital Signs Vital Signs - 24 hr 06/27/25 16:33 06/27/25 16:33 06/27/25 16:36 Temperature 36.9 C Temperature Source Oral Pulse Rate 135 H Pulse Rate [Right Finger] Pulse Rate from SpO2 Sensor Pulse Rhythm [Right Finger] Pulse Strength [Right Finger] Respiratory Rate Respiratory Effort / Characteristics Spontaneous SOB on Exertion Respiratory Depth Respiratory Pattern Regular Blood Pressure Blood Pressure [Right Arm] Blood Pressure Mean Blood Pressure Mean [Right Arm] Blood Pressure Position [Right Arm] Pulse Oximetry Oxygen Delivery Method Room Air Sepsis Recent Fever Within 48 Hours No Sepsis New/Unexplained Change in Mental Status No Sepsis Action Taken by Nursing No Action Required 06/27/25 16:39 06/27/25 16:47 06/27/25 17:00 Temperature Temperature Source Pulse Rate 125 H Pulse Rate [Right Finger] 135 H 110 H Pulse Rate from SpO2 Sensor Pulse Rhythm [Right Finger] Pulse Strength [Right Finger] Respiratory Rate 24 20 Respiratory Effort / Characteristics Respiratory Depth Respiratory Pattern Blood Pressure 169/97 H Blood Pressure [Right Arm] 169/97 H 109/86 Blood Pressure Mean Blood Pressure Mean [Right Arm] 121 93 Blood Pressure Position [Right Arm] Pulse Oximetry 94 98 Oxygen Delivery Method Room Air Sepsis Recent Fever Within 48 Hours Sepsis New/Unexplained Change in Mental Status Sepsis Action Taken by Nursing 06/27/25 17:30 06/27/25 17:30 06/27/25 17:30 Temperature Temperature Source Pulse Rate 116 H Pulse Rate [Right Finger] Pulse Rate from SpO2 Sensor 118 H Pulse Rhythm [Right Finger] Pulse Strength [Right Finger] Respiratory Rate 24 Respiratory Effort / Characteristics Respiratory Depth Respiratory Pattern Blood Pressure 109/86 133/101 H 133/101 H Blood Pressure [Right Arm] Blood Pressure Mean 93 103 103 Blood Pressure Mean [Right Arm] Blood Pressure Position [Right Arm] Pulse Oximetry 94 Oxygen Delivery Method Sepsis Recent Fever Within 48 Hours Sepsis New/Unexplained Change in Mental Status Sepsis Action Taken by Nursing 06/27/25 17:45 06/27/25 17:46 06/27/25 17:50 Temperature Temperature Source Pulse Rate 110 H 110 H 116 H Pulse Rate [Right Finger] Pulse Rate from SpO2 Sensor 106 H Pulse Rhythm [Right Finger] Pulse Strength [Right Finger] Respiratory Rate 19 Respiratory Effort / Characteristics Respiratory Depth Respiratory Pattern Blood Pressure 133/101 H 131/95 131/95 Blood Pressure [Right Arm] Blood Pressure Mean 111 109 Blood Pressure Mean [Right Arm] Blood Pressure Position [Right Arm] Pulse Oximetry 91 Oxygen Delivery Method Sepsis Recent Fever Within 48 Hours Sepsis New/Unexplained Change in Mental Status Sepsis Action Taken by Nursing 06/27/25 18:00 06/27/25 18:30 06/27/25 19:00 Temperature Temperature Source Pulse Rate 108 H 115 H Pulse Rate [Right Finger] 117 H Pulse Rate from SpO2 Sensor 116 H 116 H Pulse Rhythm [Right Finger] Regular Pulse Strength [Right Finger] Normal Respiratory Rate 21 22 18 Respiratory Effort / Characteristics Non-Labored Spontaneous Respiratory Depth Normal Respiratory Pattern Regular Blood Pressure 123/97 122/103 H Blood Pressure [Right Arm] 128/107 H Blood Pressure Mean 105 109 Blood Pressure Mean [Right Arm] 114 Blood Pressure Position [Right Arm] Semi-fowlers Pulse Oximetry 91 91 94 Oxygen Delivery Method Room Air Sepsis Recent Fever Within 48 Hours Sepsis New/Unexplained Change in Mental Status Sepsis Action Taken by Nursing 06/27/25 19:14 06/27/25 19:16 06/27/25 19:17 Temperature Temperature Source Pulse Rate 124 H 124 H Pulse Rate [Right Finger] Pulse Rate from SpO2 Sensor Pulse Rhythm [Right Finger] Pulse Strength [Right Finger] Respiratory Rate Respiratory Effort / Characteristics Respiratory Depth Respiratory Pattern Blood Pressure 109/86 109/86 Blood Pressure [Right Arm] Blood Pressure Mean Blood Pressure Mean [Right Arm] Blood Pressure Position [Right Arm] Pulse Oximetry 94 Oxygen Delivery Method Room Air Sepsis Recent Fever Within 48 Hours Sepsis New/Unexplained Change in Mental Status Sepsis Action Taken by Shelter Medications Current Medication List: was personally reviewed by me Laboratory Data Attestation: I reviewed the patient's lab results. 06/27/25 16:44 06/27/25 20:18 Lab Results 06/27/25 06/27/25 06/27/25 Range/Units 16:44 17:27 19:41 WBC 8.43 (4.8-10.8) K/ul RBC 4.78 (4.20-5.40) M/uL Hgb 15.2 (12.0-16.0) g/dl POC Hgb 15.0 (12.0-16.0) g/dl Hct 43.9 (37.0-47.0) % POC Hct 44 (37-47) % MCV 91.8 (80.0-100.0) fL MCH 31.8 (25.0-34.0) pg MCHC 34.6 (32.0-36.0) g/dL RDW Std Deviation 47.2 H (36.4-46.3) fL RDW Coeff of Stevan 13.9 (11.5-14.5) % Plt Count 255 (130-400) K/uL MPV 10.1 (9.4-12.4) fL Immature Gran % (Auto) 0.6 % Neut % (Auto) 62.0 % Lymph % (Auto) 23.4 % [place] % (Auto) 12.0 % Eos % (Auto) 1.4 % Baso % (Auto) 0.6 % Neut # (Auto) 5.23 (1.40-6.50) K/uL Lymph # (Auto) 1.97 (1.20-3.40) K/uL [place] # (Auto) 1.01 H (0.11-0.59) K/uL Eos # (Auto) 0.12 (0.00-0.50) K/uL Baso # (Auto) 0.05 (0.00-0.20) K/uL Immature Gran # (Auto) 0.05 (0.01-0.20) K/uL PT Cancelled 11.6 INR Cancelled 1.1 APTT Cancelled 28 PTT Ratio Cancelled 1.0 POC Sodium 145 H (135-144) mmol/L Sodium Cancelled POC Potassium 3.3 (3.3-5.0) mmol/L Potassium Cancelled POC Chloride 108 (101-112) mmol/L Chloride Cancelled Carbon Dioxide Cancelled POC Total CO2 26 (24-31) mmol/L Anion Gap Cancelled POC Anion Gap 15.0 L (16-25) mmol/L POC BUN 15 (7-18) mg/dl BUN Cancelled Creatinine Cancelled POC Creatinine 1.1 (0.6-1.3) mg/dl Est Cr Clr Drug Dosing Cancelled eGFR Cancelled BUN/Creatinine Ratio Cancelled Glucose Cancelled POC Glucose (other) 103 H (70-99) mg/dl Calcium Cancelled POC Ioniz Calcium [place] 1.16 (1.12-1.32) mmol/l Magnesium Cancelled Total Bilirubin Cancelled AST Cancelled ALT Cancelled Alkaline Phosphatase Cancelled Troponin I High Sens 8.4 (0-14) pg/ml Total Protein Cancelled Albumin Cancelled Globulin Cancelled Albumin/Globulin Ratio Cancelled TSH 0.940 (0.300-4.500) uIu/ml Administered Medications Discontinued Medications Sodium Chloride (Nss) 500 mls @ 999 mls/hr IV .Q31M STA Stop: 06/27/25 17:03 Last Infusion: 06/27/25 19:16 Dose: Infused Documented By: Admin: 06/27/25 16:47 Dose: 999 mls/hr Documented By: Magnesium Sulfate/Dextrose (Magnesium Sulfate / D5w) 1 gm in 100 mls @ 100 mls/hr IV NOW STA Stop: 06/27/25 17:32 Last Infusion: 06/27/25 19:16 Dose: Infused Documented By: Admin: 06/27/25 16:47 Dose: 100 mls/hr Documented By: Metoprolol Tartrate (Metoprolol Tartrate 1 Mg/Ml Vial) 5 mg IV NOW STA Stop: 06/27/25 16:37 Last Admin: 06/27/25 16:47 Dose: 5 mg Documented By: Metoprolol Tartrate (Metoprolol Tartrate 1 Mg/Ml Vial) 5 mg IV NOW STA Stop: 06/27/25 17:19 Last Admin: 06/27/25 17:50 Dose: 5 mg Documented By: MR Imaging Data Attestation: I personally reviewed and interpreted this imaging study as follows: My Impression: 1 view chest x-ray was obtained in the emergency department. My interpretation is enlargement of the cardiac silhouette, no free air, final report below. Radiologist's Impression: Chest X-Ray 06/27/25 16:33 Chest radiograph, one view History: Dysrhythmia Comparison: 01/08/2025 Findings: Single AP view of the chest performed. No focal consolidation or pleural effusion. No pneumothorax. The cardiomediastinal silhouette is enlarged. Normal pulmonary vascularity. No evidence for lymphadenopathy. No visualized bony or soft tissue abnormality. Impression: Enlargement of the cardiac silhouette. No other acute finding Electronically signed by Jony Bone 06-27-2025 5:02 PM Discharge Plan Visit Data Chief Complaint: Arrhythmia/Palpitations Stated Complaint: AFIB, SOB ED Provider: Thanh Torres Discharge Problem: Atrial fibrillation with rapid ventricular response, Palpitations Patient Disposition: Being Evaluated by Hospitalist Condition: Fair Forms Stand Alone Forms: [facility] Prescriptions Prescriptions: No Action potassium chloride 10 mEq tablet extended release 10 meq PO DAILY Rx Instructions: Takes extra tablet if taking extra lasix Eliquis 5 mg Tablet 5 mg PO BID Qty: 60 0RF furosemide 40 mg tablet 40 mg PO BID Rx Instructions: May take an additional 40 mg for weight gain of 2-3 pounds overnight or shortness of breath or edema metoprolol tartrate 25 mg tablet 12.5 mg PO BID Rx Instructions: Hold for SBP <100 and HR <60 Referrals Referrals: PCP,NO [Physician] -
[2025-06-27] MEDS: MAGNESIUM SULFATE / D5W 1 GM/100 ML BAG IV STA (16:47)
[2025-06-27] MEDS: METOPROLOL TARTRATE 1 MG/ML VIAL IV STA ×2 (16:47→17:50)
[2025-06-27] MEDS: SODIUM CHLORIDE 0.9% 500 ML IV STA (16:47)
[2025-06-27 17:03] LABS: Hematocrit (blood only) 43.9 % (37.0-47.0); Hemoglobin 15.2 g/dl (12.0-16.0); Immature Granulocytes # (auto) 0.05 K/uL (0.01-0.20); Immature Granulocytes % (auto) 0.6 %; Mean Corpuscular Hemoglobin 31.8 pg (25.0-34.0); Mean Corpuscular Volume 91.8 fL (80.0-100.0); Platelet Count 255 K/uL (130-400); RDW Standard Deviation 47.2 fL (36.4-46.3); Red Blood Count 4.78 M/uL (4.20-5.40); White Blood Count 8.43 K/ul (4.8-10.8)
--- NOTE | 2025-06-27 17:03 | XRay Report ---
Chest radiograph, one view History: Dysrhythmia Comparison: 01/08/2025 Findings: Single AP view of the chest performed. No focal consolidation or pleural effusion. No pneumothorax. The cardiomediastinal silhouette is enlarged. Normal pulmonary vascularity. No evidence for lymphadenopathy. No visualized bony or soft tissue abnormality. Impression: Enlargement of the cardiac silhouette. No other acute finding Electronically signed by Jony Bone 06-27-2025 5:02 PM
[2025-06-27 17:33] LABS: Thyroid Stimulating Hormone 0.94 uIu/ml (0.300-4.500)
[2025-06-27 18:23] LABS: INR 1.1 (0.9-1.1); Partial Thromboplastin Time 28 Seconds (21-31); Prothrombin Time 11.6 Seconds (9.0-12.0)
--- NOTE | 2025-06-27 18:26 | History & Physical Report ---
<Statement entered by Neo Belcher, DO - 06/27/25 20:11> I have seen and examined the patient and have discussed the case with the advance practice provider. I have reviewed the advanced practitioner's documentation, and I agree with, and take responsibility for that plan of care. Patient seen while still in the ED. Denies any chest pain or shortness of breath. Rate slightly improved control 110-130. Discussed with patient seems that she responds best to metoprolol, however, sometimes has some issues with hypotension. Will attempt to control rates with IV metoprolol 2.5 mg every 4 hours. Patient states that she has upcoming appointments with Dr. John from [facility] cardiology. She plans on following with them. Will consult [facility] cardiology for further assistance on her atrial fibrillation. This evening goal will be to try and control her rate to less than 130. Anticipate patient may need cardioversion for control based on her previous history. I spent a total of 24 minutes coordinating, documenting, and providing care for this patient excluding time spent by another provider/QHP. Date of Service June 27, 2025 Assessment & Plan (1) Atrial fibrillation with rapid ventricular response: (2) Chronic heart failure with reduced ejection fraction and diastolic dysfunction: (3) WILL on CPAP: Plan 69 year old female with PMH significant for thyroid nodules, gout, chronic sinusitis, WILL on CPAP, chronic allergic rhinitis, paroxysmal A fib s/p ablation x2 (2014, 2023) and DCCV (Sep 2024), dilated cardiomyopathy, chronic HF with reduced EF and diastolic dysfunction, hypertension, pulmonary hypertension, mor bid obesity, LAYLA, history of diffuse large B-cell lymphoma who presented to the ED on 06/27/2025 with x1 week of Afib per her home monitor. A fib with RVR History of A fib with RVR s/p two ablations (2014, 2023) and recent cardioversion in December 2024 Follows with [facility] Cardiology Licha GIBSON and [facility] Dr Medina; has upcoming appt with A fib specialist in [place] as well Presented to the ED with x1 week of Afib at home per home monitor Admitting EKG showed A fib RVR at rate of 138bpm Received 5mg IV lopressor x2 in the ED and rates 115-120s; BP stable Will schedule 2.5mg IV lopressor q4hr with hold parameters Continue Eliquis Cardiology consult: appreciate recs Chronic HF with reduced EF and diastolic dysfunction Echo in December 2024 revealed LVEF 25-30%, severe global kinesis of LV, left atrium severely dilated, mild AR and mild aortic root dilatation Patient reports x3 hospitalizations at [facility] for fluid overload since December Recently switched from bumex to lasix Takes lasix daily and nightly as needed depending on weight Appears euvolemic Monitor I&Os Daily weights Give nightly dose of lasix tonight after 500mL NSS in ED per patient request Continue daily lasix with potassium supplementation WILL Continue home CPAP DVT Prophylaxis: on Eliquis Code Status: FULL CODE - As per discussion at bedside with the patient. PCP: Bel Felix ([facility]) Disposition: admit to telemetry Patient seen in collaboration with Dr Belcher. Please see addendum. I spent a total of 70 minutes coordinating, documenting and providing care for this patient excluding time spent in the performance of separately billed services or time spent by another provider/QHP. Admission and Anticipated Discharge Date Admission Date: 06/27/2025 History of Present Illness Primary Care Provider: Bel Felix MD 69 year old female with PMH significant for thyroid nodules, gout, chronic sinusitis, WILL on CPAP, chronic allergic rhinitis, paroxysmal A fib s/p ablation x2 (2023) and DCCV (Sep 2024), dilated cardiomyopathy, chronic HF with reduced EF and diastolic dysfunction, hypertension, pulmonary hypertension, morbid obesity, LAYLA, history of diffuse large B-cell lymphoma who presented to the ED on 06/27/2025 with x1 week of A fib per her home monitor. Patient reports that she has been in A fib for the last week with rates anywhere from 115s at rest up to 140s with activity. This morning when she woke up, her HR was 160, which prompted her to call her Financial Administration Officer who recommended she be evaluated in the ED. She reports associated palpitations and SOB with exertion. She feels lightheaded with activity. Her blood pressures have been intermittent with lows as low as 80s/60s. Otherwise, she denies fevers, chills, abdominal pain, N/V, dysuria. She has been taking her medications as prescribed. She reports her weight has been stable, but notes 3 recent hospitalizations at [facility] for fluid overload. Was recently switched to lasix and is doing well on this. Reports she is sensitive/cannot tolerate many medications. Follows with [facility] PCP and Cardiology, [facility], and has an upcoming appointment with an A fib specialist in [place]. Allergies Allergy/AdvReac Type Severity Reaction Status Date / Time lisinopril Allergy Severe Throat Verified 01/10/25 07:18 tightness Iodinated Contrast Media Allergy Intermediate Rash Verified 01/10/25 07:18 citalopram Allergy Mild Rash Verified 01/10/25 07:18 Beta-Blockers AdvReac Intermediate Increase Verified 01/10/25 07:18 (Beta-Adrenergic Bloc of symptoms/conditions digoxin AdvReac Unknown "Did not Verified 01/10/25 07:18 work" Home Medications Medication Instructions Recorded Confirmed Type potassium chloride 10 mEq 10 meq PO DAILY 01/09/25 06/27/25 History tablet,extended release apixaban 5 mg tablet (Eliquis) 5 mg PO BID #60 tabs 01/12/25 06/27/25 Rx furosemide 40 mg tablet 40 mg PO BID 06/27/25 06/27/25 History metoprolol tartrate 25 mg tablet 12.5 mg PO BID 06/27/25 06/27/25 History Past Med/Surg History Problem List (Updated 06/27/25 @ 19:45 by PAIGE Best) Depression Hyperlipidemia Atrial fibrillation with rapid ventricular response Chronic heart failure with reduced ejection fraction and diastolic dysfunction Dilated cardiomyopathy Sleep apnea BIPAP (compliant) Hypertension WILL on CPAP History of cardioversion (Chronic) Medical History (Updated 06/27/25 @ 19:45 by PAIGE Best) Septic arthritis of knee, bilateral Respiratory failure (12/11/14) Hypoxia Atrial fibrillation with rapid ventricular response Chronic mastoiditis Osteoarthritis Depressive disorder Atrial fibrillation with rapid ventricular response (11/23/14) Hypertension (11/23/14) History of hyperlipidemia Sleep apnea Atrial fibrillation Left knee DJD HFrEF (heart failure with reduced ejection fraction) Diarrhea Fibromyalgia Sinus congestion NYHA class 3 heart failure with reduced ejection fraction Cardiac left ventricular ejection fraction 10-20 percent NSVT (nonsustained ventricular tachycardia) Elevated brain natriuretic peptide (BNP) level Abdominal pain Acute dyspnea Non compliance w medication regimen Shortness of breath Diarrhea Obesity Encounter for pre-operative examination History of COVID-19 Dx 09/2021, symptoms resolved except residual taste/smell impairment Osteoarthritis Cancer Lymphoma (2015) s/p treatment in [place], PCP monitors Atrial fibrillation Follows with [facility]/Dr. Medina Surgical History (Updated 06/27/25 @ 19:45 by PAIGE Best) History of partial thyroidectomy History of mastoidectomy History of tympanoplasty History of tympanostomy tube placement Status post tonsillectomy and adenoidectomy History of nasal septoplasty Status post total right knee replacement History of tonsillectomy and adenoidectomy History of ear surgery LEFT X 2-RIGHT X 1-MASTOIDECTOMY/TYMPANOPLASTY History of sinus surgery History of section History of thyroidectomy History of esophagogastroduodenoscopy (EGD) History of colon resection 2016 FOR BLEEDING TUMOR History of colonoscopy History of cardioversion ~2014 Family History Other Hypertension Social History Smoking Status: Never smoker Second Hand Exposure: Yes (FATHER SMOKED); Do You Dip or Chew Tobacco: No; Hx Alcohol Use: No Hx Substance Use: No Preferred Language: Tamazight Communication Ability: Effective Electric Switch Tester Required: No Beliefs That Will Affect Care: None marital status: Single Current Living Situation: Family Current Living Situation Comment: lives in double house with son current occupational status: disabled Feels Safe at Home: Yes Assistive Devices: Cane, CPAP and Walker Review of Systems Review of Systems: All systems reviewed & are unremarkable except as noted in HPI & below Physical Exam Physical Exam: General/Psych: WD/WN, sitting up in bed, NAD, conversing easily Head: normocephalic, atraumatic Eyes: normal inspection, PERRL, conjunctivae pink ENT: external ear and nose normal, oropharynx normal Neck: normal visual inspection, trachea midline Respiratory: normal respiratory effort, lungs clear to auscultation, no wheeze/rales/rhonchi, no accessory muscle use Cardiovascular: irregularly irregular rate and rhythm, no murmur/rub/gallop, no JVD Extremities: no cyanosis or clubbing, normal peripheral pulses, no BLE edema Abdomen/GI: normal bowel sounds, soft, nontender Neurologic/MSK: A+Ox3, motor strength 5/5, moves all extremities Skin: no rashes, normal color, warm and dry Results & Data Results & Data Vital Signs (Past 12 Hours) Vital Signs Temp Pulse Pulse Resp BP BP Pulse Ox 06/27/25 17:50 116 H 131/95 06/27/25 17:46 110 H 131/95 06/27/25 17:45 110 H 19 133/101 H 91 06/27/25 17:30 133/101 H 06/27/25 17:30 133/101 H 06/27/25 17:30 116 H 24 109/86 94 06/27/25 17:00 110 H 20 109/86 98 06/27/25 16:47 125 H 169/97 H 06/27/25 16:39 135 H 24 169/97 H 94 06/27/25 16:36 135 H 06/27/25 16:33 06/27/25 16:33 36.9 C O2 Del Method 06/27/25 17:50 06/27/25 17:46 06/27/25 17:45 06/27/25 17:30 06/27/25 17:30 06/27/25 17:30 06/27/25 17:00 06/27/25 16:47 06/27/25 16:39 Room Air 06/27/25 16:36 06/27/25 16:33 Room Air 06/27/25 16:33 Laboratory Results Short CBC 06/27/25 Range/Units 16:44 WBC 8.43 (4.8-10.8) K/ul Hgb 15.2 (12.0-16.0) g/dl Hct 43.9 (37.0-47.0) % Plt Count 255 (130-400) K/uL BMP 06/27/25 16:44 Sodium Cancelled Potassium Cancelled Chloride Cancelled Carbon Dioxide Cancelled BUN Cancelled Creatinine Cancelled Glucose Cancelled Calcium Cancelled Liver Function 06/27/25 Range/Units 16:44 Total Bilirubin Cancelled AST Cancelled ALT Cancelled Alkaline Phosphatase Cancelled Albumin Cancelled I have independently reviewed and interpreted patient's admitting labs including CBC, PTT, PT/INR, troponin, TSH. Diagnostic Findings Chest X-Ray 06/27/25 16:33 Chest radiograph, one view History: Dysrhythmia Comparison: 01/08/2025 Findings: Single AP view of the chest performed. No focal consolidation or pleural effusion. No pneumothorax. The cardiomediastinal silhouette is enlarged. Normal pulmonary vascularity. No evidence for lymphadenopathy. No visualized bony or soft tissue abnormality. Impression: Enlargement of the cardiac silhouette. No other acute finding Electronically signed by Jony Bone 06-27-2025 5:02 PM ECG Additional Comments: I have independently reviewed and interpreted patient's admitting EKG which revealed: A fib with RVR at rate of 138bpm Code Status & VTE Plan Code Status Full Code
[2025-06-27 20:50] LABS: Alanine Aminotransferase 60.0 U/L (7-52); Albumin Globulin Ratio 1.2 (0.9-2); Alkaline Phosphatase 109.0 U/L (34-104); Anion Gap 7.0 (3-11); Bilirubin,Total 0.6 mg/dl (0.2-1.0); Blood Urea Nitrogen 25.0 mg/dl (6-23); Calcium 9.3 mg/dl (8.6-10.3); Carbon Dioxide 27.0 mmol/L (21-32); Chloride 106.0 mmol/L (98-107); Creatinine Clr Calc Pharmacy 120.1 ml/min; Globulin 3.3 gm/dl (2.5-4.0); Glucose 110.0 mg/dl (70-99(Fasting)); Magnesium 2.3 mg/dl (1.7-2.4); Potassium 4.0 mmol/L (3.5-5.1); Sodium 140.0 mmol/L (136-145); Total Protein 7.1 gm/dl (6.0-8.3)
[2025-06-27] MEDS ORDERED: ONDANSETRON INJ 2 MG/ML 2 ML VIAL IV PRN (21:02)
[2025-06-27] MEDS ORDERED: POLYETHYLENE (MIRALAX) 17 GM PACK PO PRN (21:02)
[2025-06-27] MEDS ORDERED: ACETAMINOPHEN 325 MG TAB PO PRN (21:02)
[2025-06-27] MEDS: POTASSIUM CHLORIDE 10 MEQ TABCR PO ONE (21:13)
[2025-06-27 21:38] LABS: Appearance Urine Clear (Clear); Glucose Urine UA Negative (Negative)
[2025-06-27] MEDS: APIXABAN 5 MG TABLET PO SCH (21:44)
[2025-06-27] MEDS: FUROSEMIDE 40 MG TAB PO ONE (21:44)
[2025-06-27] MEDS: METOPROLOL TARTRATE 1 MG/ML VIAL IV SCH (21:48)
[2025-06-28] MEDS: LORazepam 0.5 MG TAB PO STA (00:31)
[2025-06-28] MEDS: FUROSEMIDE 40 MG TAB PO SCH (08:11)
[2025-06-28] MEDS: POTASSIUM CHLORIDE 10 MEQ TABCR PO SCH (08:16)
[2025-06-28 08:58] LABS: Hematocrit (blood only) 40.6 % (37.0-47.0); Hemoglobin 13.9 g/dl (12.0-16.0); Mean Corpuscular Hemoglobin 31.4 pg (25.0-34.0); Mean Corpuscular Volume 91.6 fL (80.0-100.0); Platelet Count 221 K/uL (130-400); RDW Standard Deviation 47.0 fL (36.4-46.3); Red Blood Count 4.43 M/uL (4.20-5.40); White Blood Count 6.77 K/ul (4.8-10.8)
[2025-06-28 09:23] LABS: Anion Gap 9.0 (3-11); Blood Urea Nitrogen 21.0 mg/dl (6-23); Calcium 9.3 mg/dl (8.6-10.3); Carbon Dioxide 25.0 mmol/L (21-32); Chloride 106.0 mmol/L (98-107); Creatinine Clr Calc Pharmacy 89.1 ml/min; Glucose 97.0 mg/dl (70-99(Fasting)); Magnesium 2.3 mg/dl (1.7-2.4); Potassium 3.6 mmol/L (3.5-5.1); Sodium 140.0 mmol/L (136-145)
[2025-06-28] MEDS: POTASSIUM CHLORIDE CRTAB 20 MEQ TABCR PO STA (09:46)
[2025-06-28 11:37] VITALS: TEMP 97.7
--- NOTE | 2025-06-28 12:44 | Cardiology Consultation ---
Date of Consultation June 28, 2025 History of Present Illness Attending Physician: Lian Humphries MD Allergies Allergy/AdvReac Type Severity Reaction Status Date / Time lisinopril Allergy Severe Throat Verified 01/10/25 07:18 tightness Iodinated Contrast Media Allergy Intermediate Rash Verified 01/10/25 07:18 citalopram Allergy Mild Rash Verified 01/10/25 07:18 Beta-Blockers AdvReac Intermediate Increase Verified 01/10/25 07:18 (Beta-Adrenergic Bloc of symptoms/conditions digoxin AdvReac Unknown "Did not Verified 01/10/25 07:18 work" Home Medications Medication Instructions Recorded Confirmed Type potassium chloride 10 mEq 10 meq PO DAILY 01/09/25 06/27/25 History tablet,extended release apixaban 5 mg tablet (Eliquis) 5 mg PO BID #60 tabs 01/12/25 06/27/25 Rx furosemide 40 mg tablet 40 mg PO BID 06/27/25 06/27/25 History metoprolol tartrate 25 mg tablet 12.5 mg PO BID 06/27/25 06/27/25 History Patient History Medical History (Updated 06/27/25 @ 20:46 by Thanh Torres DO) Septic arthritis of knee, bilateral Respiratory failure (12/11/14) Hypoxia Atrial fibrillation with rapid ventricular response Chronic mastoiditis Osteoarthritis Depressive disorder Atrial fibrillation with rapid ventricular response (11/23/14) Hypertension (11/23/14) History of hyperlipidemia Sleep apnea Atrial fibrillation Left knee DJD HFrEF (heart failure with reduced ejection fraction) Diarrhea Fibromyalgia Sinus congestion NYHA class 3 heart failure with reduced ejection fraction Cardiac left ventricular ejection fraction 10-20 percent NSVT (nonsustained ventricular tachycardia) Elevated brain natriuretic peptide (BNP) level Abdominal pain Acute dyspnea Non compliance w medication regimen Shortness of breath Diarrhea Obesity Encounter for pre-operative examination History of COVID-19 Dx 09/2021, symptoms resolved except residual taste/smell impairment Osteoarthritis Cancer Lymphoma (2016) s/p treatment in [place], PCP monitors Atrial fibrillation Follows with [facility] [place]/Dr. Medina Surgical History (Updated 06/27/25 @ 19:45 by PAIGE Best) History of partial thyroidectomy History of mastoidectomy History of tympanoplasty History of tympanostomy tube placement Status post tonsillectomy and adenoidectomy History of nasal septoplasty Status post total right knee replacement History of tonsillectomy and adenoidectomy History of ear surgery LEFT X 2-RIGHT X 1-MASTOIDECTOMY/TYMPANOPLASTY History of sinus surgery History of section History of thyroidectomy History of esophagogastroduodenoscopy (EGD) History of colon resection 2015 FOR BLEEDING TUMOR History of colonoscopy History of cardioversion ~2015 Family History Other Hypertension Social History Smoking Status: Never smoker Second Hand Exposure: No; Do You Dip or Chew Tobacco: No; Tobacco Cessation Education Requested by Patient: No Hx Alcohol Use: No Hx Substance Use: No Preferred Language: Yoruba Communication Ability: Effective Employee'S Representative Required: No Beliefs That Will Affect Care: None marital status: Single Current Living Situation: Alone Current Living Situation Comment: lives in double house with son current occupational status: disabled Other Information That Helps Us Care for You: No Feels Safe at Home: Yes Safety Concerns: Feels Safe At This Time Assistive Devices: BiPap Results & Data Vital Signs (Past 12 Hours) Vital Signs Temp Pulse Pulse Resp BP BP Pulse Ox 06/28/25 12:20 90 120/81 06/28/25 12:05 120 H 121/66 06/28/25 11:37 36.5 C 96 H 18 121/66 92 06/28/25 08:36 36.6 C 119 H 20 108/70 94 06/28/25 08:30 93 H 117/84 06/28/25 08:15 121 H 107/69 06/28/25 08:05 06/28/25 05:40 107 H 06/28/25 05:15 105 H 107/69 06/28/25 04:07 113 H 114/73 06/28/25 03:24 36.3 C L 113 H 20 114/73 93 O2 Del Method 06/28/25 12:20 06/28/25 12:05 06/28/25 11:37 Room Air 06/28/25 08:36 Room Air 06/28/25 08:30 06/28/25 08:15 06/28/25 08:05 Room Air 06/28/25 05:40 06/28/25 05:15 06/28/25 04:07 06/28/25 03:24 Room Air PG Care Time/CCT Total # of Minutes Spent Total Time Spent with Patient: Total time spent is greater than 50% in coordination of care (as documented) at patient's floor/unit and/or counseling patient: Coding
--- NOTE | 2025-06-28 12:53 | Electrocardiogram Report ---
Test Reason : Blood Pressure : */* mmHG Vent. Rate : 138 BPM Atrial Rate : * BPM P-R Int : * ms QRS Dur : 96 ms QT Int : 314 ms P-R-T Axes : * -1 119 degrees QTcB Int : 475 ms Atrial fibrillation with rapid ventricular response with premature ventricular or aberrantly conducte d complexes Nonspecific ST and T wave abnormality Abnormal ECG When compared with ECG of 11-Jan-2025 05:47, Atrial fibrillation has replaced Sinus rhythm Vent. rate has increased by 78 bpm T wave inversion now evident in Lateral leads Confirmed by Jony John ([id number]) on 06/28/2025 12:52:52 PM Referred By: REFERRED SELF Confirmed By: Jony John
[2025-06-28] MEDS ORDERED: PROPOFOL IV EMULSION 10 MG/ML 20 ML VIAL IV ONE (13:02)
[2025-06-28] MEDS ORDERED: LIDOCAINE 2% 2 ML VIAL/AMP(20MG/ML) INFIL ONE (13:02)
[2025-06-28 14:13] VITALS: RESP 14
--- NOTE | 2025-06-28 14:20 | Anesthesiology Consultation ---
Date of Service June 28, 2025 Assessment & Plan Chart Review Chart Review: Acceptable Risk for Surgery and Patient NOT seen in Pre Admission Testing Consults Requested none ASA ASA3 Proposed Anesthesia Anesthesia Type: MAC Risk / Benefits Reviewed With: PT / POA / Parent / Guardian, Accepts Plan and Informed Consent Obtained History Surgery Operation Date: 06/28/25 13:00 Proposed Procedures p Cardioversion - Jony John MD Height/Weight Height: 5 ft 6 in Weight: 114.4 kg Allergies Allergy/AdvReac Type Severity Reaction Status Date / Time lisinopril Allergy Severe Throat Verified 01/10/25 07:18 tightness Iodinated Contrast Media Allergy Intermediate Rash Verified 01/10/25 07:18 citalopram Allergy Mild Rash Verified 01/10/25 07:18 Beta-Blockers AdvReac Intermediate Increase Verified 01/10/25 07:18 (Beta-Adrenergic Bloc of symptoms/conditions digoxin AdvReac Unknown "Did not Verified 01/10/25 07:18 work" Medications Home Medications Medication Instructions Recorded Confirmed Last Taken potassium chloride 10 mEq 10 meq PO DAILY 01/09/25 06/27/25 06/27/25 tablet,extended release apixaban 5 mg tablet (Eliquis) 5 mg PO BID #60 tabs 01/12/25 06/27/25 06/27/25 furosemide 40 mg tablet 40 mg PO BID 06/27/25 06/27/25 06/27/25 metoprolol tartrate 25 mg tablet 12.5 mg PO BID 06/27/25 06/27/25 06/27/25 Active Medications Generic Name Dose Route Start Last Admin Trade Name Freq PRN Reason Stop Dose Admin Apixaban 5 mg 06/27/25 21:02 06/28/25 08:11 Apixaban 5 Mg Tablet PO 07/27/25 21:01 5 mg BID FERNANDA Administration Furosemide 40 mg 06/28/25 09:00 06/28/25 08:11 Furosemide 40 Mg Tab PO 07/28/25 08:59 40 mg DAILY FERNANDA Administration Metoprolol Tartrate 2.5 mg 06/27/25 20:00 06/28/25 12:05 Metoprolol Tartrate 1 Mg/Ml Vial IV 07/27/25 19:59 2.5 mg Q4 FERNANDA Administration Past Medical History Medical History (Updated 06/27/25 @ 20:46 by Thanh Torres DO) Septic arthritis of knee, bilateral Respiratory failure (12/11/14) Hypoxia Atrial fibrillation with rapid ventricular response Chronic mastoiditis Osteoarthritis Depressive disorder Atrial fibrillation with rapid ventricular response (11/23/14) Hypertension (11/23/14) History of hyperlipidemia Sleep apnea Atrial fibrillation Left knee DJD HFrEF (heart failure with reduced ejection fraction) Diarrhea Fibromyalgia Sinus congestion NYHA class 3 heart failure with reduced ejection fraction Cardiac left ventricular ejection fraction 10-20 percent NSVT (nonsustained ventricular tachycardia) Elevated brain natriuretic peptide (BNP) level Abdominal pain Acute dyspnea Non compliance w medication regimen Shortness of breath Diarrhea Obesity Encounter for pre-operative examination History of COVID-19 Dx 09/2021, symptoms resolved except residual taste/smell impairment Osteoarthritis Cancer Lymphoma (2015) s/p treatment in [place], PCP monitors Atrial fibrillation Follows with [facility]/Dr. Medina Exercise / Class Metabolic Activity II 4-5 Yardwork/Stairs/Walk up hill Past Family History Family History Other Hypertension Past Surgical History Surgical History (Updated 06/27/25 @ 19:45 by PAIGE Best) History of partial thyroidectomy History of mastoidectomy History of tympanoplasty History of tympanostomy tube placement Status post tonsillectomy and adenoidectomy History of nasal septoplasty Status post total right knee replacement History of tonsillectomy and adenoidectomy History of ear surgery LEFT X 2-RIGHT X 1-MASTOIDECTOMY/TYMPANOPLASTY History of sinus surgery History of section History of thyroidectomy History of esophagogastroduodenoscopy (EGD) History of colon resection 2015 FOR BLEEDING TUMOR History of colonoscopy History of cardioversion ~2014 Past Anesthesia History No Hx of Anesthesia Complications and No Family Hx of Anesthesia Complications History of PONV No Hx of PONV and No Hx of Motion Sickness Social History Smoking Status: Never smoker Do You Dip or Chew Tobacco: No Hx Alcohol Use: No alcohol intake frequency: holidays/special occasions only Hx Substance Use: No substance use type: does not use Physical Exam Vital Signs Last Vital Signs Temp 36.5 C 06/28/25 11:37 Pulse 78 06/28/25 13:57 Resp 14 06/28/25 13:20 BP 124/99 06/28/25 13:20 Pulse Ox 98 06/28/25 13:20 O2 Del Method Room Air 06/28/25 13:20 ENMT Mouth: no dentition abnormality Thyromental Distance: > or= 3.5 Finger Breadths Mallampati Class: II Neck normal visual inspection Respiratory normal respiratory effort Auscultation: lungs clear to auscultation bilaterally Cardiovascular Rate/Rhythm: regular rate and regular rhythm Psychiatric Orientation: alert Testing Laboratory Results 06/28/25 07:43 06/28/25 07:43 PT 11.6 Seconds (9.0-12.0) 06/27/25 17:27 INR 1.1 (0.9-1.1) 06/27/25 17:27 APTT 28 Seconds (21-31) 06/27/25 17:27 Urine Color Yellow 06/27/25 Unknown Urine Appearance Clear (Clear) 06/27/25 Unknown Urine pH 5.5 (4.5-7.5) 06/27/25 Unknown Ur Specific [place] 1.018 (1.000-1.030) 06/27/25 Unknown Urine Protein Negative (Negative) 06/27/25 Unknown Urine Glucose (UA) Negative (Negative) 06/27/25 Unknown Urine Ketones Negative (Negative) 06/27/25 Unknown Urine Nitrite Negative (Negative) 06/27/25 Unknown Ur Leukocyte Esterase Negative (Negative) 06/27/25 Unknown
--- NOTE | 2025-06-28 14:20 | Anesthesiology Progress Note ---
Date of Service June 28, 2025 Anesthesia Post Procedure Vital Signs Vital Signs: Temp Pulse Pulse Resp BP BP Pulse Ox 06/28/25 13:57 78 06/28/25 13:20 115 H 14 124/99 98 06/28/25 13:03 135 H 06/28/25 12:20 90 120/81 06/28/25 12:05 120 H 121/66 06/28/25 11:37 36.5 C 96 H 18 121/66 92 06/28/25 08:36 36.6 C 119 H 20 108/70 94 06/28/25 08:30 93 H 117/84 06/28/25 08:15 121 H 107/69 06/28/25 08:05 06/28/25 05:40 107 H 06/28/25 05:15 105 H 107/69 06/28/25 04:07 113 H 114/73 06/28/25 03:24 36.3 C L 113 H 20 114/73 93 06/28/25 00:28 100 H 112/82 06/28/25 00:04 107 H 124/87 06/27/25 22:30 110 H 140/95 06/27/25 22:26 36.8 C 110 H 18 140/95 93 06/27/25 21:48 120 H 136/100 06/27/25 21:42 126 H 06/27/25 21:02 36.5 C 120 H 20 136/100 93 06/27/25 21:02 06/27/25 21:02 06/27/25 21:02 36.5 C 120 H 20 136/100 93 06/27/25 19:17 124 H 109/86 06/27/25 19:16 124 H 109/86 06/27/25 19:14 94 06/27/25 19:00 117 H 18 128/107 H 94 06/27/25 18:30 115 H 22 122/103 H 91 06/27/25 18:00 108 H 21 123/97 91 06/27/25 17:50 116 H 131/95 06/27/25 17:46 110 H 131/95 06/27/25 17:45 110 H 19 133/101 H 91 06/27/25 17:30 133/101 H 06/27/25 17:30 133/101 H 06/27/25 17:30 116 H 24 109/86 94 06/27/25 17:00 110 H 20 109/86 98 06/27/25 16:47 125 H 169/97 H 06/27/25 16:39 135 H 24 169/97 H 94 06/27/25 16:36 135 H 06/27/25 16:33 06/27/25 16:33 36.9 C Pulse Ox O2 Del Method O2 Del Method 06/28/25 13:57 06/28/25 13:20 Room Air 06/28/25 13:03 06/28/25 12:20 06/28/25 12:05 06/28/25 11:37 Room Air 06/28/25 08:36 Room Air 06/28/25 08:30 06/28/25 08:15 06/28/25 08:05 Room Air 06/28/25 05:40 06/28/25 05:15 06/28/25 04:07 06/28/25 03:24 Room Air 06/28/25 00:28 06/28/25 00:04 06/27/25 22:30 06/27/25 22:26 Room Air 06/27/25 21:48 06/27/25 21:42 06/27/25 21:02 Room Air 06/27/25 21:02 Room Air 06/27/25 21:02 93 Room Air 06/27/25 21:02 Room Air 06/27/25 19:17 06/27/25 19:16 06/27/25 19:14 Room Air 06/27/25 19:00 Room Air 06/27/25 18:30 06/27/25 18:00 06/27/25 17:50 06/27/25 17:46 06/27/25 17:45 06/27/25 17:30 06/27/25 17:30 06/27/25 17:30 06/27/25 17:00 06/27/25 16:47 06/27/25 16:39 Room Air 06/27/25 16:36 06/27/25 16:33 Room Air 06/27/25 16:33 Transfer of Care Handoff Completed per policy Notes Mental Status: alert / awake / arousable Patient Amnestic to Procedure: Yes Nausea / Vomiting: adequately controlled Pain: adequately controlled Airway Patency, RR, SpO2: stable & adequate BP & HR: stable & adequate Hydration State: stable & adequate Anesthetic Complications: no major complications apparent
[2025-06-28 14:24] VITALS: O2SAT 96
[2025-06-28 14:26] VITALS: BP 115/80
--- NOTE | 2025-06-28 14:48 | Cardioversion ---
Date of Service June 28, 2025 PG Electrical Cardioversion Rp Electrical Cardioversion Report Procedure performed: Cardioversion Indication: Patient is a 69-year-old woman with a longstanding history of atrial fibrillation. She presented to the hospital symptoms associated with persistent atrial fibrillation. Staff tableau administrator: Jony John MD Procedure in detail: The patient was informed of the risks benefits and alternatives to the intended procedure. She understood such which proceed. She was taken to the cardiac catheterization suite holding area. A general anesthetic was administered by the Anesthesiology Service. Once appropriately anesthetized, the patient was cardioverted using 200 joules delivered in a biphasic fashion. This returned the patient to sinus rhythm. The patient tolerated procedure well, there were no immediate complications. Patient was neurologically intact subsequent to the procedure. Impression: Successful cardioversion from atrial fibrillation to normal sinus rhythm Coding Level of Care Code 52262 CARDIOVERSION, ELECTIVE Additional Codes Electrical Cardioversion Report ([id number])
--- NOTE | 2025-06-28 15:44 | Discharge Summary ---
Discharge Summary Date of Service June 28, 2025 Principal Dx & Hospital Course #1 = Principal Diagnosis (1) Atrial fibrillation with rapid ventricular response: (2) Chronic heart failure with reduced ejection fraction and diastolic dysfunction: (3) WILL on CPAP: Plan Ms Rivas is a 69 year old female with PMH significant for thyroid nodules, gout, chronic sinusitis, WILL on CPAP, chronic allergic rhinitis, paroxysmal A fib s/p ablation x2 (2023) and DCCV (Sep 2024), dilated cardiomyopathy, chronic HF with reduced EF and diastolic dysfunction, hypertension, pulmonary hypertension, morbid obesity, LAYLA, history of diffuse large B-cell lymphoma who presented to the ED on 06/27/2025 with x1 week of Afib per her home monitor. Patient with multiple intolerances to medications for a fib, including amiodarone, in dronedarone and sotalol. Patient ultimately underwent cardioversion on 06/28 with conversion to NSR. Patient to follow up with Cardiology, EP, and PCP upon D/C. #A fib with RVR History of A fib with RVR s/p two ablations (2023) and recent cardioversion in December 2024 Follows with [facility] Cardiology Licha GIBSON and [facility] Medina; has upcoming appt with A fib specialist in [place] as well Presented to the ED with x1 week of Afib at home per home monitor Admitting EKG showed A fib RVR at rate of 138bpm s/p Cardioversion on 06/28 Plan for close Cards/EP follow up continue home regimen Chronic HF with reduced EF and diastolic dysfunction Echo in December 2024 revealed LVEF 25-30%, severe global kinesis of LV, left atrium severely dilated, mild AR and mild aortic root dilatation Patient reports x3 hospitalizations at [facility] for fluid overload since December Continue daily lasix with potassium supplementation (increased from 10 to 20meq daily) WILL Continue home CPAP Notes For Next Care Provider Repeat labs (BMP and Mag) in 1 week Medication Changes From Visit Increased Potassium to 20meq daily Admission HPI Per Admitting Provider 69 year old female with PMH significant for thyroid nodules, gout, chronic sinusitis, WILL on CPAP, chronic allergic rhinitis, paroxysmal A fib s/p ablation x2 (2023) and DCCV (Sep 2024), dilated cardiomyopathy, chronic HF with reduced EF and diastolic dysfunction, hypertension, pulmonary hypertension, morbid obesity, LAYLA, history of diffuse large B-cell lymphoma who presented to the ED on 06/27/2025 with x1 week of A fib per her home monitor. Patient reports that she has been in A fib for the last week with rates anywhere from 115s at rest up to 140s with activity. This morning when she woke up, her HR was 160, which prompted her to call her Quality Engineering Manager who recommended she be evaluated in the ED. She reports associated palpitations and SOB with exertion. She feels lightheaded with activity. Her blood pressures have been intermittent with lows as low as 80s/60s. Otherwise, she denies fevers, chills, abdominal pain, N/V, dysuria. She has been taking her medications as prescribed. She reports her weight has been stable, but notes 3 recent hospitalizations at [facility] for fluid overload. Was recently switched to lasix and is doing well on this. Reports she is sensitive/cannot tolerate many medications. Follows with [facility] PCP and Cardiology, [facility], and has an upcoming appointment with an A fib specialist in [place]. Admission Exam Per Admitting Provider General/Psych: WD/WN, sitting up in bed, NAD, conversing easily Head: normocephalic, atraumatic Eyes: normal inspection, PERRL, conjunctivae pink ENT: external ear and nose normal, oropharynx normal Neck: normal visual inspection, trachea midline Respiratory: normal respiratory effort, lungs clear to auscultation, no wheeze/ rales/rhonchi, no accessory muscle use Cardiovascular: irregularly irregular rate and rhythm, no murmur/rub/gallop, no JVD Extremities: no cyanosis or clubbing, normal peripheral pulses, no BLE edema Abdomen/GI: normal bowel sounds, soft, nontender Neurologic/MSK: A+Ox3, motor strength 5/5, moves all extremities Skin: no rashes, normal color, warm and dry Discharge Exam Constitutional WD/WN, vitals as above Respiratory normal respiratory effort, lungs clear to auscultation Cardiovascular RRR, no murmur, no edema Gastrointestinal (Abdomen) normal bowel sounds, soft, nontender, no hepatosplenomegaly Updated Medication List Medication Instructions Recorded Confirmed Type apixaban 5 mg tablet (Eliquis) 5 mg PO BID #60 tabs 01/12/25 06/27/25 Rx furosemide 40 mg tablet 40 mg PO BID 06/27/25 06/27/25 History metoprolol tartrate 25 mg tablet 12.5 mg PO BID 06/27/25 06/27/25 History potassium chloride 10 mEq 20 meq (2 x 10 mEq) PO DAILY #60 06/28/25 Rx tablet,extended release tabs Hospital Stay Data Consultations 06/27/25 18:27 ED Decision to Admit Stat 06/27/25 21:02 Consult Cardiology Routine Procedures Performed Operation Date: 06/28/25 13:00 Actual Procedures p Cardioversion - Jony John MD Pending Results Patient Have Any Pending Studies at Discharge: No Discharge Instructions Given to Patient (Per Discharging Provider) You were admitted for a fib with a rapid rate. You underwent cardioversion with planned follow up with your EP and PCP Your potassium was increased to 20meq daily Please discuss labs in 1 week with your PCP Total Time Total Time Spent Total Time Spent (In Minutes): 40
--- NOTE | 2025-06-28 15:50 | Cardiology Consultation ---
Date of Consultation June 28, 2025 Assessment & Plan (1) Atrial fibrillation with rapid ventricular response: (2) Dilated cardiomyopathy: Plan 1. Atrial fibrillation: Longstanding problem. She had been tried on different medications all with either intolerance or inefficacy. She has been on amiodarone but did not feel well. She has been on dronedarone and sotalol. We did discuss the utility of dofetilide. She wishes to research this medication. Most immediate way to feel better would be to perform another cardioversion and she seems in favor. No need for CRYSTAL as she has been systemically anticoagulated for several weeks. Rate control has been difficult given her medication intolerances. Currently scheduled to have an evaluation by another intensive care unit registered nurse for repeat ablation and or left atrial appendage occlusion. She should continue systemic anticoagulation. 2. Dilated cardiomyopathy: Unclear if this is ischemic or nonischemic. She does not report symptoms consistent with an ischemic etiology, but apparently no evaluation has been performed in this regard. It has been assumed that her reduced LV function has been related to atrial fibrillation and associated high rates. She would benefit from switching of metoprolol to tartrate to metoprolol succinate. The addition of an SGLT2 inhibitor can also be entertained. She appears to have had some intolerance to GO inhibition and the addition of ARB or Entresto needs to be performed with caution. We did discuss the topic of an ICD as primary prevention against sudden cardiac given her degree of LV dysfunction. This may also play a role in future treatment of atrial fibrillation as she may be a good candidate for an AV node ablation. She was to defer any additional aggressive therapy at this time until she has the option of exploring the possibility of another ablation of atrial fibrillation. History of Present Illness Reason for Consultation: Atrial fibrillation Requesting Physician: Fer Attending Physician: Lian Humphries MD History of Present Illness The patient is a 69-year-old woman with a long history of atrial fibrillation having previously undergone pulmonary vein isolation on 2 occasions. She has undergone multiple cardioversions for symptomatic atrial fibrillation. She was last admitted to our hospital in December of this year. However, over the past several weeks she has actually been seen in [facility] as well. She continues to have episodes of atrial fibrillation which are persistent in nature. She states that during these episodes she feels poorly. She has a sense of palpitation, elevated heart rate, exercise intolerance and mild fatigue. No overt dizziness or significant shortness of breath. No exertional chest pain. She has been compliant with current medical therapy which includes systemic anticoagulation with Eliquis. Otherwise able to perform her routine activity. Again, no exertional chest pain or limiting dyspnea at baseline. She sleeps poorly, but did not report orthopnea or paroxysmal nocturnal dyspnea. Allergies Allergy/AdvReac Type Severity Reaction Status Date / Time lisinopril Allergy Severe Throat Verified 01/10/25 07:18 tightness Iodinated Contrast Media Allergy Intermediate Rash Verified 01/10/25 07:18 citalopram Allergy Mild Rash Verified 01/10/25 07:18 Beta-Blockers AdvReac Intermediate Increase Verified 01/10/25 07:18 (Beta-Adrenergic Bloc of symptoms/conditions digoxin AdvReac Unknown "Did not Verified 01/10/25 07:18 work" Home Medications Medication Instructions Recorded Confirmed Type apixaban 5 mg tablet (Eliquis) 5 mg PO BID #60 tabs 01/12/25 06/27/25 Rx furosemide 40 mg tablet 40 mg PO BID 06/27/25 06/27/25 History metoprolol tartrate 25 mg tablet 12.5 mg PO BID 06/27/25 06/27/25 History potassium chloride 10 mEq 20 meq (2 x 10 mEq) PO DAILY #60 06/28/25 Rx tablet,extended release tabs Patient History Medical History (Updated 06/27/25 @ 20:46 by Thanh oTrres DO) Septic arthritis of knee, bilateral Respiratory failure (12/11/14) Hypoxia Atrial fibrillation with rapid ventricular response Chronic mastoiditis Osteoarthritis Depressive disorder Atrial fibrillation with rapid ventricular response (11/23/14) Hypertension (11/23/14) History of hyperlipidemia Sleep apnea Atrial fibrillation Left knee DJD HFrEF (heart failure with reduced ejection fraction) Diarrhea Fibromyalgia Sinus congestion NYHA class 3 heart failure with reduced ejection fraction Cardiac left ventricular ejection fraction 10-20 percent NSVT (nonsustained ventricular tachycardia) Elevated brain natriuretic peptide (BNP) level Abdominal pain Acute dyspnea Non compliance w medication regimen Shortness of breath Diarrhea Obesity Encounter for pre-operative examination History of COVID-19 Dx 09/2021, symptoms resolved except residual taste/smell impairment Osteoarthritis Cancer Lymphoma (2016) s/p treatment in [place], PCP monitors Atrial fibrillation Follows with C/Dr. Medina Surgical History (Updated 09/02/25 @ 19:45 by PAIGE Best) History of partial thyroidectomy History of mastoidectomy History of tympanoplasty History of tympanostomy tube placement Status post tonsillectomy and adenoidectomy History of nasal septoplasty Status post total right knee replacement History of tonsillectomy and adenoidectomy History of ear surgery LEFT X 2-RIGHT X 1-MASTOIDECTOMY/TYMPANOPLASTY History of sinus surgery History of section History of thyroidectomy History of esophagogastroduodenoscopy (EGD) History of colon resection 2016 FOR BLEEDING TUMOR History of colonoscopy History of cardioversion ~2015 Family History Other Hypertension Social History Smoking Status: Never smoker Second Hand Exposure: No; Do You Dip or Chew Tobacco: No; Hx Alcohol Use: No Hx Substance Use: No Preferred Language: Maltese Communication Ability: Effective Double Head Machine Operator Required: No Beliefs That Will Affect Care: None marital status: Single Current Living Situation: Alone Current Living Situation Comment: lives in double house with son current occupational status: disabled Feels Safe at Home: Yes Assistive Devices: BiPap Review of Systems Review of Systems: Per HPI Physical Exam Physical Exam: She is alert and oriented x3. Mood affect appear normal. She answered all questions appropriately. HEENT: Sclerae are anicteric. Pupils are equal and reactive to light and accommodation. Extraocular movements were intact. Neuro: Cranial nerves intact Lungs: Lungs are clear to auscultation bilaterally. There are no rales wheezes or rhonchi. She has normal respiratory effort without use of accessory muscles. There is normal pulmonary excursion. Cardiac: The rhythm was irregular. S1 and S2 were normal. There are no murmurs on examination. The PMI was not markedly displaced on palpation. Extremities: Patient has bilateral radial pulses that are equal in intensity. There is no evidence cyanosis or clubbing. There was no evidence of significant peripheral edema bilaterally. Skin: There are no rashes noted on examination today. Results & Data Vital Signs (Past 12 Hours) Vital Signs Temp Pulse Pulse Pulse Resp BP BP 06/28/25 14:15 73 14 115/80 06/28/25 14:00 73 14 136/94 06/28/25 13:57 78 06/28/25 13:45 68 14 06/28/25 13:20 115 H 14 124/99 06/28/25 13:03 135 H 06/28/25 12:20 90 120/81 06/28/25 12:05 120 H 121/66 06/28/25 11:37 36.5 C 96 H 18 121/66 06/28/25 08:36 36.6 C 119 H 20 108/70 06/28/25 08:30 93 H 117/84 06/28/25 08:15 121 H 107/69 06/28/25 08:05 06/28/25 05:40 107 H 06/28/25 05:15 105 H 107/69 06/28/25 04:07 113 H 114/73 Pulse Ox O2 Del Method 06/28/25 14:15 96 Room Air 06/28/25 14:00 96 Room Air 06/28/25 13:57 06/28/25 13:45 96 Room Air 06/28/25 13:20 98 Room Air 06/28/25 13:03 06/28/25 12:20 06/28/25 12:05 06/28/25 11:37 92 Room Air 06/28/25 08:36 94 Room Air 06/28/25 08:30 06/28/25 08:15 06/28/25 08:05 Room Air 06/28/25 05:40 06/28/25 05:15 06/28/25 04:07 Laboratory Results Abnormal Lab Results 06/27/25 06/27/25 06/27/25 16:44 17:27 19:41 WBC 8.43 RBC 4.78 Hgb 15.2 POC Hgb Cancelled Hct 43.9 POC Hct MCV 91.8 MCH 31.8 MCHC 34.6 RDW Std Deviation 47.2 H RDW Coeff of Stevan 13.9 Plt Count 255 MPV 10.1 Immature Gran % (Auto) 0.6 Neut % (Auto) 62.0 Lymph % (Auto) 23.4 Dade % (Auto) 12.0 Eos % (Auto) 1.4 Baso % (Auto) 0.6 Neut # (Auto) 5.23 Lymph # (Auto) 1.97 Dade # (Auto) 1.01 H Eos # (Auto) 0.12 Baso # (Auto) 0.05 Immature Gran # (Auto) 0.05 PT Cancelled 11.6 INR Cancelled 1.1 APTT Cancelled 28 PTT Ratio Cancelled 1.0 POC Sodium Sodium Cancelled POC Potassium Potassium Cancelled POC Chloride Chloride Cancelled Carbon Dioxide Cancelled POC Total CO2 Anion Gap Cancelled POC Anion Gap POC BUN BUN Cancelled Creatinine Cancelled POC Creatinine Est Cr Clr Drug Dosing Cancelled eGFR Cancelled BUN/Creatinine Ratio Cancelled Glucose Cancelled POC Glucose (other) Calcium Cancelled POC Ioniz Calcium [place] Phosphorus Magnesium Cancelled Total Bilirubin Cancelled AST Cancelled ALT Cancelled Alkaline Phosphatase Cancelled Troponin I High Sens 8.4 Total Protein Cancelled Albumin Cancelled Globulin Cancelled Albumin/Globulin Ratio Cancelled TSH 0.940 Urine Color Urine Appearance Urine pH Ur Specific [place] Urine Protein Urine Glucose (UA) Urine Ketones Urine Blood Urine Nitrite Urine Bilirubin Urine Urobilinogen Ur Leukocyte Esterase Urine Comment 06/27/25 06/27/25 06/27/25 19:41 19:41 19:41 WBC RBC Hgb POC Hgb Cancelled Hct POC Hct Cancelled Cancelled MCV MCH MCHC RDW Std Deviation RDW Coeff of Stevan Plt Count MPV Immature Gran % (Auto) Neut % (Auto) Lymph % (Auto) Dade % (Auto) Eos % (Auto) Baso % (Auto) Neut # (Auto) Lymph # (Auto) Dade # (Auto) Eos # (Auto) Baso # (Auto) Immature Gran # (Auto) PT INR APTT PTT Ratio POC Sodium Cancelled Cancelled Sodium POC Potassium Cancelled Potassium POC Chloride Chloride Carbon Dioxide POC Total CO2 Anion Gap POC Anion Gap POC BUN BUN Creatinine POC Creatinine Est Cr Clr Drug Dosing eGFR BUN/Creatinine Ratio Glucose POC Glucose (other) Calcium POC Ioniz Calcium [place] Phosphorus Magnesium Total Bilirubin AST ALT Alkaline Phosphatase Troponin I High Sens Total Protein Albumin Globulin Albumin/Globulin Ratio TSH Urine Color Urine Appearance Urine pH Ur Specific [place] Urine Protein Urine Glucose (UA) Urine Ketones Urine Blood Urine Nitrite Urine Bilirubin Urine Urobilinogen Ur Leukocyte Esterase Urine Comment 06/27/25 06/27/25 06/27/25 19:41 19:41 19:41 WBC RBC Hgb POC Hgb Hct POC Hct MCV MCH MCHC RDW Std Deviation RDW Coeff of Stevan Plt Count MPV Immature Gran % (Auto) Neut % (Auto) Lymph % (Auto) Dade % (Auto) Eos % (Auto) Baso % (Auto) Neut # (Auto) Lymph # (Auto) Dade # (Auto) Eos # (Auto) Baso # (Auto) Immature Gran # (Auto) PT INR APTT PTT Ratio POC Sodium Sodium POC Potassium Cancelled Potassium POC Chloride Cancelled Cancelled Chloride Carbon Dioxide POC Total CO2 Cancelled Cancelled Anion Gap POC Anion Gap Cancelled POC BUN BUN Creatinine POC Creatinine Est Cr Clr Drug Dosing eGFR BUN/Creatinine Ratio Glucose POC Glucose (other) Calcium POC Ioniz Calcium [place] Phosphorus Magnesium Total Bilirubin AST ALT Alkaline Phosphatase Troponin I High Sens Total Protein Albumin Globulin Albumin/Globulin Ratio TSH Urine Color Urine Appearance Urine pH Ur Specific [place] Urine Protein Urine Glucose (UA) Urine Ketones Urine Blood Urine Nitrite Urine Bilirubin Urine Urobilinogen Ur Leukocyte Esterase Urine Comment 06/27/25 06/27/25 06/27/25 19:41 19:41 19:41 WBC RBC Hgb POC Hgb Hct POC Hct MCV MCH MCHC RDW Std Deviation RDW Coeff of Stevan Plt Count MPV Immature Gran % (Auto) Neut % (Auto) Lymph % (Auto) Dade % (Auto) Eos % (Auto) Baso % (Auto) Neut # (Auto) Lymph # (Auto) Dade # (Auto) Eos # (Auto) Baso # (Auto) Immature Gran # (Auto) PT INR APTT PTT Ratio POC Sodium Sodium POC Potassium Potassium POC Chloride Chloride Carbon Dioxide POC Total CO2 Anion Gap POC Anion Gap Cancelled POC BUN Cancelled Cancelled BUN Creatinine POC Creatinine Cancelled Cancelled Est Cr Clr Drug Dosing eGFR BUN/Creatinine Ratio Glucose POC Glucose (other) Cancelled Calcium POC Ioniz Calcium [place] Phosphorus Magnesium Total Bilirubin AST ALT Alkaline Phosphatase Troponin I High Sens Total Protein Albumin Globulin Albumin/Globulin Ratio TSH Urine Color Urine Appearance Urine pH Ur Specific [place] Urine Protein Urine Glucose (UA) Urine Ketones Urine Blood Urine Nitrite Urine Bilirubin Urine Urobilinogen Ur Leukocyte Esterase Urine Comment 06/27/25 06/27/25 06/27/25 19:41 19:41 20:18 WBC RBC Hgb POC Hgb Hct POC Hct MCV MCH MCHC RDW Std Deviation RDW Coeff of Stevan Plt Count MPV Immature Gran % (Auto) Neut % (Auto) Lymph % (Auto) Dade % (Auto) Eos % (Auto) Baso % (Auto) Neut # (Auto) Lymph # (Auto) Dade # (Auto) Eos # (Auto) Baso # (Auto) Immature Gran # (Auto) PT INR APTT PTT Ratio POC Sodium Sodium 140 POC Potassium Potassium 4.0 POC Chloride Chloride 106 Carbon Dioxide 27 POC Total CO2 Anion Gap 7 POC Anion Gap POC BUN BUN 25 H Creatinine 0.94 POC Creatinine Est Cr Clr Drug Dosing 120.1 eGFR 65.28 BUN/Creatinine Ratio 26.6 H Glucose 110 H POC Glucose (other) Cancelled Calcium 9.3 POC Ioniz Calcium [place] Cancelled Cancelled Phosphorus Magnesium 2.3 Total Bilirubin 0.6 AST 68 H ALT 60 H Alkaline Phosphatase 109 H Troponin I High Sens Total Protein 7.1 Albumin 3.8 Globulin 3.3 Albumin/Globulin Ratio 1.2 TSH Urine Color Urine Appearance Urine pH Ur Specific [place] Urine Protein Urine Glucose (UA) Urine Ketones Urine Blood Urine Nitrite Urine Bilirubin Urine Urobilinogen Ur Leukocyte Esterase Urine Comment 06/27/25 06/28/25 Unknown 07:43 WBC 6.77 RBC 4.43 Hgb 13.9 POC Hgb Hct 40.6 POC Hct MCV 91.6 MCH 31.4 MCHC 34.2 RDW Std Deviation 47.0 H RDW Coeff of Stevan 14.0 Plt Count 221 MPV 10.0 Immature Gran % (Auto) Neut % (Auto) Lymph % (Auto) Dade % (Auto) Eos % (Auto) Baso % (Auto) Neut # (Auto) Lymph # (Auto) Dade # (Auto) Eos # (Auto) Baso # (Auto) Immature Gran # (Auto) PT INR APTT PTT Ratio POC Sodium Sodium 140 POC Potassium Potassium 3.6 POC Chloride Chloride 106 Carbon Dioxide 25 POC Total CO2 Anion Gap 9 POC Anion Gap POC BUN BUN 21 Creatinine 0.76 POC Creatinine Est Cr Clr Drug Dosing 89.1 eGFR 84.24 BUN/Creatinine Ratio 27.6 H Glucose 97 POC Glucose (other) Calcium 9.3 POC Ioniz Calcium [place] Phosphorus 3.4 Magnesium 2.3 Total Bilirubin AST ALT Alkaline Phosphatase Troponin I High Sens Total Protein Albumin Globulin Albumin/Globulin Ratio TSH Urine Color Yellow Urine Appearance Clear Urine pH 5.5 Ur Specific [place] 1.018 Urine Protein Negative Urine Glucose (UA) Negative Urine Ketones Negative Urine Blood Negative Urine Nitrite Negative Urine Bilirubin Negative Urine Urobilinogen Negative Ur Leukocyte Esterase Negative Urine Comment Diagnostic Findings Chest x-ray obtained at the time admission revealed cardiomegaly but no other acute cardiopulmonary process. Echocardiogram 01/09/2025: Severely reduced LV systolic function with ejection fraction 25 to 30%. Severe global hypokinesis. Severely dilated left atrium. Mild aortic regurgitation. Mild aortic root dilation. PG Care Time/CCT Total # of Minutes Spent Total Time Spent with Patient: Total time spent is greater than 50% in coordination of care (as documented) at patient's floor/unit and/or counseling patient: Coding Level of Care Code 45340 INT INP/OBS CARE 3/75MIN Diagnoses Atrial fibrillation with rapid ventricular response I48.91 Dilated cardiomyopathy I42.0
[2025-06-28 15:55] VITALS: PULSE 115
--- NOTE | 2025-06-28 16:20 | Electrocardiogram Report ---
Test Reason : Blood Pressure : */* mmHG Vent. Rate : 72 BPM Atrial Rate : 72 BPM P-R Int : 166 ms QRS Dur : 94 ms QT Int : 444 ms P-R-T Axes : 53 8 103 degrees QTcB Int : 486 ms Normal sinus rhythm Possible Left atrial enlargement Nonspecific ST and T wave abnormality Abnormal ECG When compared with ECG of 27-Jun-2025 16:31, Sinus rhythm has replaced Atrial fibrillation Vent. rate has decreased by 66 bpm T wave inversion now evident in Anterior leads Confirmed by Jony John ([id number]) on 06/28/2025 4:20:25 PM Referred By: REFERRED SELF Confirmed By: Jony John
[2025-06-29] MEDS ORDERED: POTASSIUM CHLORIDE 10 MEQ TABCR PO SCH (09:00)
== END 2025-06-28 17:07 | disposition home or self-care (01) | DRG 309 ==
LOC: ED 16:24 → 2S 19:12 → SUATTDRO 19:12 → 2S 21:13

== ENCOUNTER 2025-07-10 14:53 | Inpatient (IN) ==
[2025-07-10 15:38] LABS: Hematocrit (blood only) 41.7 % (37.0-47.0); Hemoglobin 14.5 g/dl (12.0-16.0); Immature Granulocytes # (auto) 0.06 K/uL (0.01-0.20); Immature Granulocytes % (auto) 0.9 %; Mean Corpuscular Hemoglobin 31.5 pg (25.0-34.0); Mean Corpuscular Volume 90.5 fL (80.0-100.0); Platelet Count 233 K/uL (130-400); RDW Standard Deviation 46.3 fL (36.4-46.3); Red Blood Count 4.61 M/uL (4.20-5.40); White Blood Count 6.68 K/ul (4.8-10.8)
--- NOTE | 2025-07-10 15:45 | Emergency Department Note ---
History of Present Illness General Chief Complaint: Cardiac Assessment Stated Complaint: SOB, AFIB Time Seen by Provider: 07/10/25 15:23 History of Present Illness Provider Complaint: + palpitations and + atrial fibrillation Onset (ago): week(s) (1) Duration: + Worsening Severity: similar to previous episodes Arrhythmia history: + atrial fibrillation, + on anti-coagulants (xarelto) and + history of electrical cardioversion Associated symptoms: + shortness of breath (orthopnea); no chest pain, no syncope, no near-syncope or no vomiting Home Medications Medication Instructions Recorded Confirmed Type apixaban 5 mg tablet (Eliquis) 5 mg PO BID #60 tabs 01/12/25 07/10/25 Rx furosemide 40 mg tablet 40 mg PO DAILY 06/27/25 07/10/25 History metoprolol tartrate 25 mg tablet 12.5 mg PO BID 06/27/25 07/10/25 History cholecalciferol (vitamin D3) 25 25 mcg PO DAILY 07/10/25 07/10/25 History mcg (1,000 unit) tablet (Vitamin D3) multivitamin 1 tab PO DAILY 07/10/25 07/10/25 History potassium chloride 10 mEq 10 meq PO DAILY 07/10/25 07/10/25 History tablet,extended release zinc 50 mg tablet 50 mg PO DAILY 07/10/25 07/10/25 History Allergies Allergy/AdvReac Type Severity Reaction Status Date / Time amiodarone Allergy Severe Abdominal Unverified 07/10/25 16:45 Pain lisinopril Allergy Severe Throat Verified 07/10/25 16:37 tightness Iodinated Contrast Media Allergy Intermediate Rash Verified 07/10/25 16:37 citalopram Allergy Mild Rash Verified 07/10/25 16:37 Beta-Blockers AdvReac Intermediate Increase Verified 07/10/25 16:37 (Beta-Adrenergic Bloc of symptoms/conditions digoxin AdvReac Unknown "Did not Verified 07/10/25 16:37 work" Past Med/Surg History Problem List (Updated 07/10/25 @ 16:40 by Luis Angel Cee MD) Palpitations (Acute) Depression Hyperlipidemia Atrial fibrillation with rapid ventricular response (Acute) Chronic heart failure with reduced ejection fraction and diastolic dysfunction Dilated cardiomyopathy Sleep apnea BIPAP (compliant) Hypertension WLIL on CPAP History of cardioversion (Chronic) Medical History Septic arthritis of knee, bilateral Respiratory failure (12/11/14) Hypoxia Atrial fibrillation with rapid ventricular response Chronic mastoiditis Osteoarthritis Depressive disorder Atrial fibrillation with rapid ventricular response (11/23/14) Hypertension (11/23/14) History of hyperlipidemia Sleep apnea Atrial fibrillation Left knee DJD HFrEF (heart failure with reduced ejection fraction) Diarrhea Fibromyalgia Sinus congestion NYHA class 3 heart failure with reduced ejection fraction Cardiac left ventricular ejection fraction 10-20 percent NSVT (nonsustained ventricular tachycardia) Elevated brain natriuretic peptide (BNP) level Abdominal pain Acute dyspnea Non compliance w medication regimen Shortness of breath Diarrhea Obesity Encounter for pre-operative examination History of COVID-19 Dx 09/2021, symptoms resolved except residual taste/smell impairment Osteoarthritis Cancer Lymphoma (2016) s/p treatment in [place], PCP monitors Atrial fibrillation Follows with C/Dr. Medina Surgical History History of partial thyroidectomy History of mastoidectomy History of tympanoplasty History of tympanostomy tube placement Status post tonsillectomy and adenoidectomy History of nasal septoplasty Status post total right knee replacement History of tonsillectomy and adenoidectomy History of ear surgery LEFT X 2-RIGHT X 1-MASTOIDECTOMY/TYMPANOPLASTY History of sinus surgery History of section History of thyroidectomy History of esophagogastroduodenoscopy (EGD) History of colon resection 2016 FOR BLEEDING TUMOR History of colonoscopy History of cardioversion ~2014 Family History Other Hypertension Social History Smoking Status: Never smoker Second Hand Exposure: No; Do You Dip or Chew Tobacco: No; Hx Alcohol Use: No Hx Substance Use: No Preferred Language: Vietnamese Communication Ability: Effective Status Controller Required: No Beliefs That Will Affect Care: None marital status: Single Current Living Situation: Alone Current Living Situation Comment: lives in double house with son current occupational status: disabled Feels Safe at Home: Yes Assistive Devices: BiPap Physical Exam 2 Vital Signs: Vital Signs - 24 hr 07/10/25 14:55 07/10/25 15:37 07/10/25 15:38 Temperature 36.5 C Temperature Source Temporal Artery Sc an Pulse Rate 119 H 156 H Pulse Rate [Apical ] Pulse Rate from Sp O2 Sensor Pulse Rhythm Respiratory Rate 18 Respiratory Effort / Characteristics Non-Labored Sponta neous Respiratory Depth Normal Respiratory Patter n Regular Blood Pressure 143/84 H 130/72 Blood Pressure [Ri ght Arm] Blood Pressure Tena n 103 101 Blood Pressure Tena n [Right Arm] Blood Pressure Pos ition [Right Arm] Pulse Oximetry 96 Oxygen Delivery Me thod Room Air Sepsis Recent Feve r Within 48 Hours No Sepsis New/Unexpla ined Change in Men rom Status N/A Sepsis Action Take n by Nursing No Action Required 07/10/25 15:38 07/10/25 15:38 07/10/25 15:40 Temperature Temperature Source Pulse Rate 109 H Pulse Rate [Apical ] Pulse Rate from Sp O2 Sensor 94 H Pulse Rhythm Respiratory Rate 12 Respiratory Effort / Characteristics Respiratory Depth Respiratory Patter n Blood Pressure 130/72 Blood Pressure [Ri ght Arm] Blood Pressure Tena n 101 Blood Pressure Tena n [Right Arm] Blood Pressure Pos ition [Right Arm] Pulse Oximetry 92 92 Oxygen Delivery Me thod Room Air Sepsis Recent Feve r Within 48 Hours Sepsis New/Unexpla ined Change in Men rom Status Sepsis Action Take n by Nursing 07/10/25 15:40 07/10/25 15:40 07/10/25 16:00 Temperature Temperature Source Pulse Rate 109 H Pulse Rate [Apical ] 93 H Pulse Rate from Sp O2 Sensor Pulse Rhythm Irregular Respiratory Rate 20 23 Respiratory Effort / Characteristics Non-Labored Respiratory Depth Normal Respiratory Patter n Regular Blood Pressure 114/84 Blood Pressure [Ri ght Arm] 130/72 Blood Pressure Tena n 99 Blood Pressure Tena n [Right Arm] 91 Blood Pressure Pos ition [Right Arm] Semi-fowlers Pulse Oximetry 93 93 Oxygen Delivery Me thod Room Air Room Air Sepsis Recent Feve r Within 48 Hours Sepsis New/Unexpla ined Change in Men rom Status Sepsis Action Take n by Nursing 07/10/25 16:05 07/10/25 16:15 07/10/25 16:32 Temperature Temperature Source Pulse Rate 111 H 106 H 101 H Pulse Rate [Apical ] Pulse Rate from Sp O2 Sensor Pulse Rhythm Respiratory Rate 20 Respiratory Effort / Characteristics Respiratory Depth Respiratory Patter n Blood Pressure 113/83 121/87 Blood Pressure [Ri ght Arm] Blood Pressure Tena n 97 98 Blood Pressure Tena n [Right Arm] Blood Pressure Pos ition [Right Arm] Pulse Oximetry 92 92 96 Oxygen Delivery Me thod Room Air Room Air Room Air Sepsis Recent Feve r Within 48 Hours Sepsis New/Unexpla ined Change in Men rom Status Sepsis Action Take n by Nursing 07/10/25 16:49 Temperature Temperature Source Pulse Rate Pulse Rate [Apical ] 115 H Pulse Rate from Sp O2 Sensor Pulse Rhythm Respiratory Rate 22 Respiratory Effort / Characteristics Non-Labored Sponta neous Respiratory Depth Normal Respiratory Patter n Regular Blood Pressure Blood Pressure [Ri ght Arm] 116/78 Blood Pressure Tena n Blood Pressure Tena n [Right Arm] 90 Blood Pressure Pos ition [Right Arm] Pulse Oximetry 91 Oxygen Delivery Me thod Room Air Sepsis Recent Feve r Within 48 Hours Sepsis New/Unexpla ined Change in Men rom Status Sepsis Action Take n by Nursing Physical Exam: Physical Exam GENERAL: oriented to person, place, and time. appears well-developed and well- nourished. HENT: Exam performed. - Head: Normocephalic and atraumatic. EYES: Conjunctivae and EOM are normal. Right eye exhibits no discharge. Left eye exhibits no discharge. No scleral icterus. NECK: Normal range of motion. Neck supple. No JVD present. CV: Tachycardic rate, irregular rhythm, normal heart sounds and intact distal pulses. 2+ pitting edema of the bilateral lower extremities. Palpable radial pulses bue. PULM/CHEST: Inspiratory rales at the bases ABD: The abdomen is soft. There is no tenderness. NEURO: Motor and sensation grossly intact. SKIN: Skin is warm and dry. He is not diaphoretic. PSYCH: normal mood and affect. Behavior is normal. Judgment and thought content normal. Course Course 1523: The patient was evaluated in room A11B. A complete history and physical exam was performed Cardiac monitoring: An order was placed for continuous cardiac monitoring. The monitor shows a rate of 140-160 with atrial fibrilation rhythm interpreted by me Large-bore IV access was obtained and patient was given 20 mg Cardizem IV push. Improved patient's ventricular rate. Patient will be started on Cardizem drip. 1638: Vital signs stable on Cardizem drip. Labs show high-sensitivity troponin of 22.9. Patient will be admitted to the [facility] team. Administered Medications Diltiazem HCl 125 mg/ Dextrose 125 mls @ 5 mls/hr IV .Q24H FERNANDA; Protocol Stop: 08/09/25 15:44 Last Titration: 07/10/25 16:52 Dose: 10 mg/hr, 10 mls/hr Documented By: AGA Co-signed By: DANTE Admin: 07/10/25 15:59 Dose: 5 mg/hr, 5 mls/hr Documented By: ALLISON Co-signed By: GEE Discontinued Medications Diltiazem HCl (Diltiazem Hcl 5 Mg/Ml 5 Ml Vial) Confirm Administered Dose 25 mg IV .STK-MED ONE Stop: 07/10/25 15:29 Last Admin: 07/10/25 15:53 Dose: Not Given Documented By: GEE Diltiazem HCl (Diltiazem Hcl 5 Mg/Ml 5 Ml Vial) 20 mg IV NOW STA Stop: 07/10/25 15:28 Last Admin: 07/10/25 15:34 Dose: 20 mg Documented By: GEE Co-signed By: ANA Miscellaneous (Stat Iv Infusion Titration Per Protocol) 1 each N/A NOW STA Stop: 07/10/25 15:41 Last Admin: 07/10/25 16:01 Dose: Not Given Documented By: ALLISON Medical Decision Making Medical Records Attestation: I reviewed the patient's medical records. Medical records reviewed. Patient had a CRYSTAL performed in December 2024 which showed an ejection fraction of 25 to 30%. Patient had a cardioversion performed 12 days ago by cardiology. Laboratory Data Attestation: I reviewed the patient's lab results. 07/10/25:25 07/10/25 15:25 Lab Results 07/10/25 07/10/25 Range/Units :25 16:16 WBC 6.68 (4.8-10.8) K/ul RBC 4.61 (4.20-5.40) M/uL Hgb 14.5 (12.0-16.0) g/dl Hct 41.7 (37.0-47.0) % MCV 90.5 (80.0-100.0) fL MCH 31.5 (25.0-34.0) pg MCHC 34.8 (32.0-36.0) g/dL RDW Std Deviation 46.3 (36.4-46.3) fL RDW Coeff of Stevan 14.1 (11.5-14.5) % Plt Count 233 (130-400) K/uL MPV 9.8 (9.4-12.4) fL Immature Gran % (Auto) 0.9 % Neut % (Auto) 65.5 % Lymph % (Auto) 19.6 % Eaton % (Auto) 12.0 % Eos % (Auto) 1.6 % Baso % (Auto) 0.4 % Neut # (Auto) 4.37 (1.40-6.50) K/uL Lymph # (Auto) 1.31 (1.20-3.40) K/uL Eaton # (Auto) 0.80 H (0.11-0.59) K/uL Eos # (Auto) 0.11 (0.00-0.50) K/uL Baso # (Auto) 0.03 (0.00-0.20) K/uL Immature Gran # (Auto) 0.06 (0.01-0.20) K/uL PT Cancelled 11.6 INR Cancelled 1.1 APTT Cancelled 27 PTT Ratio Cancelled 1.0 Sodium 141 (136-145) mmol/L Potassium 3.8 (3.5-5.1) mmol/L Chloride 104 (98-107) mmol/L Carbon Dioxide 27 (21-32) mmol/L Anion Gap 10 (3-11) BUN 24 H (6-23) mg/dl Creatinine 0.93 (0.6-1.2) mg/dl Est Cr Clr Drug Dosing 73.1 ml/min eGFR 66.12 BUN/Creatinine Ratio 25.8 H (10-20) Glucose 117 H (70-99(Fasting)) mg/dl Calcium 9.7 (8.6-10.3) mg/dl Magnesium 2.0 (1.7-2.4) mg/dl Total Bilirubin 0.8 (0.2-1.0) mg/dl AST 43 H (13-39) U/L ALT 32 (7-52) U/L Alkaline Phosphatase 102 (34-104) U/L Troponin I High Sens 22.9 H (0-14) pg/ml Total Protein 7.7 (6.0-8.3) gm/dl Albumin 4.1 (3.4-5.0) gm/dl Globulin 3.6 (2.5-4.0) gm/dl Albumin/Globulin Ratio 1.1 (0.9-2) Imaging Data Radiologist's Impression: Chest X-Ray 07/10/25 14:58 XR chest 1V portable CLINICAL HISTORY: Chest pain, nonspecific COMPARISON STUDY: 06/27/2025 FINDINGS: There is stable prominent cardiomegaly with mild pulmonary vascular congestion. No consolidation or pleural effusion seen. No pneumothorax. IMPRESSION: Stable exam. ACT 112: Negative or not required by law. Electronically signed by: Hernan Diaz M.D. 07/10/2025 3:50 PM ECG Data Attestation: I personally reviewed and interpreted this ECG as follows: Additional Comments: EKG #1 at 1519: Atrial fibrillation with rate of 146. QRS [address] elevation or ST depression EKG #2 at 1536 status post Cardizem 20 mg IV bolus: Atrial fibrillation with rate 119. QRS [address] elevation or ST depression. [facility] Narrative 1523: The patient was evaluated in room A11B. A complete history and physical exam was performed Cardiac monitoring: An order was placed for continuous cardiac monitoring. The monitor shows a rate of 140-160 with atrial fibrilation rhythm interpreted by me Large-bore IV access was obtained and patient was given 20 mg Cardizem IV push. Improved patient's ventricular rate. Patient will be started on Cardizem drip. 1638: Vital signs stable on Cardizem drip. Labs show high-sensitivity troponin of 22.9. Patient will be admitted to the [facility] team. Impression & Plan Atrial fibrillation with rapid ventricular response Critical Care Time Critical Care Time: Yes Total Critical Care Time: 43 I have personally spent greater than 43 minutes of critical care time in the direct management of this patient. This includes bedside care, interpretation of diagnostic studies, and testing, discussion with consultants, patient, and family members, and other required patient management activities. This 43 minutes is in excess of all separately billable procedures. Discharge Plan Visit Data Chief Complaint: Cardiac Assessment Stated Complaint: SOB, AFIB ED Provider: Luis Angel Cee Discharge Problem: Atrial fibrillation with rapid ventricular response Patient Disposition: Admitted As Inpatient Condition: Serious Forms Stand Alone Forms: [facility] Pres[facility] Prescriptions: No Action Eliquis 5 mg Tablet 5 mg PO BID Qty: 60 0RF furosemide 40 mg tablet 40 mg PO DAILY Rx Instructions: May take an additional 40 mg for weight gain of 2-3 pounds overnight or shortness of breath or edema metoprolol tartrate 25 mg tablet 12.5 mg PO BID Rx Instructions: Hold for SBP <100 and HR <60 multivitamin Tablet 1 tab PO DAILY zinc 50 mg Tablet 50 mg PO DAILY cholecalciferol (vitamin D3) [Vitamin D3] 25 mcg (1,000 unit) Tablet 25 mcg PO DAILY potassium chloride 10 mEq tablet extended release 10 meq PO DAILY Rx Instructions: Takes extra tablet if taking extra lasix Referrals Referrals: Bel Felix MD [Primary Care Provider] -
--- NOTE | 2025-07-10 15:52 | XRay Report ---
XR chest 1V portable CLINICAL HISTORY: Chest pain, nonspecific COMPARISON STUDY: 06/27/2025 FINDINGS: There is stable prominent cardiomegaly with mild pulmonary vascular congestion. No consolid ation or pleural effusion seen. No pneumothorax. IMPRESSION: Stable exam. ACT 112: Negative or not required by law. Electronically signed by: Hernan Diaz M.D. 07/10/2025 3:50 PM
[2025-07-10 15:56] LABS: Alanine Aminotransferase 32.0 U/L (7-52); Albumin Globulin Ratio 1.1 (0.9-2); Alkaline Phosphatase 102.0 U/L (34-104); Anion Gap 10.0 (3-11); Bilirubin,Total 0.8 mg/dl (0.2-1.0); Blood Urea Nitrogen 24.0 mg/dl (6-23); Calcium 9.7 mg/dl (8.6-10.3); Carbon Dioxide 27.0 mmol/L (21-32); Chloride 104.0 mmol/L (98-107); Creatinine Clr Calc Pharmacy 73.1 ml/min; Globulin 3.6 gm/dl (2.5-4.0); Glucose 117.0 mg/dl (70-99(Fasting)); Magnesium 2.0 mg/dl (1.7-2.4); Potassium 3.8 mmol/L (3.5-5.1); Sodium 141.0 mmol/L (136-145); Total Protein 7.7 gm/dl (6.0-8.3)
[2025-07-10] MEDS: STAT IV Infusion **Titration per Protocol STA (16:01)
[2025-07-10 17:08] LABS: INR 1.1 (0.9-1.1); Partial Thromboplastin Time 27 Seconds (21-31); Prothrombin Time 11.6 Seconds (9.0-12.0)
--- NOTE | 2025-07-10 17:27 | History & Physical Report ---
Date of Service July 10, 2025 Assessment & Plan (1) Atrial fibrillation with rapid ventricular response: (2) Chronic heart failure with reduced ejection fraction and diastolic dysfunction: (3) WILL on CPAP: Plan 69 year old female with PMH significant for thyroid nodules, gout, chronic sinusitis, WILL on CPAP, chronic allergic rhinitis, paroxysmal A fib s/p ablation x2 (2023) and DCCV (Sep 2024), dilated cardiomyopathy, chronic HF with reduced EF and diastolic dysfunction, hypertension, pulmonary hypertension, morbid obesity, LAYLA, history of diffuse large B-cell lymphoma who presented to the ED on 07/10/2025 with A fib RVR. Recent admission on 06/27/2025 with cardioversion. Patient reports she was in NSR for one week after cardioversion and then back in A fib per her home monitor. Reviewed Dr. John's note from today and he does not recommend immediate cardioversion as he thinks it would result in early return to A fib. He recommends loading dose of antiarrhythmic medication such as sotalol or dofetilide with cardioversion afterwards. Also discussed biventricular ICD and AV node ablation as ultimate option. A fib with RVR History of A fib with RVR s/p two ablations (2014, 2023) and recent cardiove rsion in December 2024 and again on 06/28/[address] John outpatient today as detailed above; has upcoming appt with A fib specialist in [place] via telehealth on to discuss possible mini maze procedure Admitting EKG revealed A fib RVR at rate of 146bpm Hemodynamically stable Patient was started on diltiazem drip in the ED and rate is currently controlled so this will continue until tomorrow when Dr. Daigle can evaluate patient for plan going forward Continue Eliquis Chronic HF with reduced EF and diastolic dysfunction Echo in December 2024 revealed LVEF 25-30%, severe global kinesis of LV, left atrium severely dilated, mild AR and mild aortic root dilatation Takes lasix daily and nightly as needed depending on weight Appears euvolemic Monitor I&Os Daily weights Continue daily lasix with potassium supplementation WILL Continue home CPAP DVT Prophylaxis: on Eliquis Code Status: FULL CODE - As per discussion at bedside with the patient. PCP: Bel Felix ([facility]) Disposition: admit to telemetry Patient seen in collaboration with Dr Talley. Please see addendum. I spent a total of 70 minutes coordinating, documenting and providing care for this patient excluding time spent in the performance of separately billed services or time spent by another provider/QHP. Admission and Anticipated Discharge Date Admission Date: 07/10/2025 History of Present Illness Chief Complaint: A fib Primary Care Provider: Bel Felix MD 69 year old female with PMH significant for thyroid nodules, gout, chronic sinusitis, WILL on CPAP, chronic allergic rhinitis, paroxysmal A fib s/p ablation x2 (2014, 2023) and DCCV (Sep 2024), dilated cardiomyopathy, chronic HF with reduced EF and diastolic dysfunction, hypertension, pulmonary hypertension, morbid obesity, LAYLA, history of diffuse large B-cell lymphoma who presented to the ED on 07/10/2025 with A fib. Recent admission on 06/27/2025 with cardioversion. Patient reports she was in NSR for one week after cardioversion and then back in A fib per her home monitor. Rates ranged from low 100s up to 150s even at rest. Notes her BP has been fluctuating as well. She has associated SOB that is getting increasingly worse. Wanted to hold off until her appointment with Dr. John today who referred her to the ED. Reviewed Dr. John's note and he does not recommend immediate cardioversion as he thinks it would result in early return to A fib. He recommends loading dose of antiarrhythmic medication such as sotalol or dofetilide with cardioversion afterwards. Also discussed biventricular ICD and AV node ablation as ultimate option. Patient reports she has a telehealth appointment with an A fib specialist in [place] on to discuss possible mini maze procedure. Patient denies chest pain, abdominal pain, N/V/D, weakness, recent falls. Allergies Allergy/AdvReac Type Severity Reaction Status Date / Time amiodarone Allergy Severe Abdominal Unverified 07/10/25 16:45 Pain lisinopril Allergy Severe Throat Verified 07/10/25 16:37 tightness Iodinated Contrast Media Allergy Intermediate Rash Verified 07/10/25 16:37 citalopram Allergy Mild Rash Verified 07/10/25 16:37 Beta-Blockers AdvReac Intermediate Increase Verified 07/10/25 16:37 (Beta-Adrenergic Bloc of symptoms/conditions digoxin AdvReac Unknown "Did not Verified 07/10/25 16:37 work" Home Medications Medication Instructions Recorded Confirmed Type apixaban 5 mg tablet (Eliquis) 5 mg PO BID #60 tabs 01/12/25 07/10/25 Rx furosemide 40 mg tablet 40 mg PO DAILY 06/27/25 07/10/25 History metoprolol tartrate 25 mg tablet 12.5 mg PO BID 06/27/25 07/10/25 History cholecalciferol (vitamin D3) 25 25 mcg PO DAILY 07/10/25 07/10/25 History mcg (1,000 unit) tablet (Vitamin D3) multivitamin 1 tab PO DAILY 07/10/25 07/10/25 History potassium chloride 10 mEq 10 meq PO DAILY 07/10/25 07/10/25 History tablet,extended release zinc 50 mg tablet 50 mg PO DAILY 07/10/25 07/10/25 History Past Med/Surg History Problem List (Updated 07/10/25 @ 16:40 by Luis Angel Cee MD) Palpitations (Acute) Depression Hyperlipidemia Atrial fibrillation with rapid ventricular response (Acute) Chronic heart failure with reduced ejection fraction and diastolic dysfunction Dilated cardiomyopathy Sleep apnea BIPAP (compliant) Hypertension WILL on CPAP History of cardioversion (Chronic) Medical History Septic arthritis of knee, bilateral Respiratory failure (12/11/14) Hypoxia Atrial fibrillation with rapid ventricular response Chronic mastoiditis Osteoarthritis Depressive disorder Atrial fibrillation with rapid ventricular response (11/23/14) Hypertension (11/23/14) History of hyperlipidemia Sleep apnea Atrial fibrillation Left knee DJD HFrEF (heart failure with reduced ejection fraction) Diarrhea Fibromyalgia Sinus congestion NYHA class 3 heart failure with reduced ejection fraction Cardiac left ventricular ejection fraction 10-20 percent NSVT (nonsustained ventricular tachycardia) Elevated brain natriuretic peptide (BNP) level Abdominal pain Acute dyspnea Non compliance w medication regimen Shortness of breath Diarrhea Obesity Encounter for pre-operative examination History of COVID-19 Dx 09/2021, symptoms resolved except residual taste/smell impairment Osteoarthritis Cancer Lymphoma (2016) s/p treatment in [place], PCP monitors Atrial fibrillation [place] [facility] [place] Surgical History History of partial thyroidectomy History of mastoidectomy History of tympanoplasty History of tympanostomy tube placement Status post tonsillectomy and adenoidectomy History of nasal septoplasty Status post total right knee replacement History of tonsillectomy and adenoidectomy History of ear surgery LEFT X 2-RIGHT X 1-MASTOIDECTOMY/TYMPANOPLASTY History of sinus surgery History of section History of thyroidectomy History of esophagogastroduodenoscopy (EGD) History of colon resection 2016 FOR BLEEDING TUMOR History of colonoscopy History of cardioversion ~2014 Family History Other Hypertension Social History Smoking Status: Never smoker Second Hand Exposure: No; Do You Dip or Chew Tobacco: No; Hx Alcohol Use: No Hx Substance Use: No Preferred Language: Nicaraguan Communication Ability: Effective Manager Social Work Required: No Beliefs That Will Affect Care: None marital status: Single Current Living Situation: Alone Current Living Situation Comment: lives in double house with son current occupational status: disabled Feels Safe at Home: Yes Assistive Devices: BiPap Review of Systems Review of Systems: All systems reviewed & are unremarkable except as noted in HPI & below Physical Exam Physical Exam: General/Psych: WD/WN, sitting up in bed, NAD, conversing easily, slightly SOB Head: normocephalic, atraumatic Eyes: normal inspection, PERRL, conjunctivae pink ENT: external ear and nose normal, oropharynx normal Neck: normal visual inspection, trachea midline, no thyromegaly Respiratory: slightly increased respiratory effort, lungs clear to auscultation, no wheeze/rales/rhonchi, no accessory muscle use Cardiovascular: irregularly irregular rate and rhythm, no murmur/rub/gallop, no JVD Extremities: no cyanosis or clubbing, normal peripheral pulses, no BLE edema Abdomen/GI: normal bowel sounds, soft, nontender Neurologic/MSK: A+Ox3, motor strength 5/5, moves all extremities Skin: no rashes, normal color, warm and dry Results & Data Results & Data Vital Signs (Past 12 Hours) Vital Signs Temp Pulse Pulse Resp BP BP Pulse Ox 07/10/25 17:13 110 H 24 145/92 H 94 07/10/25 16:49 115 H 22 116/78 91 07/10/25 16:32 101 H 20 121/87 96 07/10/25 16:15 106 H 113/83 92 07/10/25 16:05 111 H 92 07/10/25 16:00 114/84 07/10/25 15:40 109 H 23 93 07/10/25 15:40 93 H 20 130/72 93 07/10/25 15:40 92 07/10/25 15:38 109 H 12 92 07/10/25 15:38 130/72 07/10/25 15:38 130/72 07/10/25 15:37 156 H 07/10/25 14:55 36.5 C 119 H 18 143/84 H 96 O2 Del Method 07/10/25 17:13 Room Air 07/10/25 16:49 Room Air 07/10/25 16:32 Room Air 07/10/25 16:15 Room Air 07/10/25 16:05 Room Air 07/10/25 16:00 07/10/25 15:40 Room Air 07/10/25 15:40 Room Air 07/10/25 15:40 Room Air 07/10/25 15:38 07/10/25 15:38 07/10/25 15:38 07/10/25 15:37 07/10/25 14:55 Room Air Laboratory Results Short CBC 07/10/25 Range/Units 15:25 WBC 6.68 (4.8-10.8) K/ul Hgb 14.5 (12.0-16.0) g/dl Hct 41.7 (37.0-47.0) % Plt Count 233 (130-400) K/uL BMP 07/10/25 15:25 Sodium 141 Potassium 3.8 Chloride 104 Carbon Dioxide 27 BUN 24 H Creatinine 0.93 Glucose 117 H Calcium 9.7 Liver Function 07/10/25 Range/Units 15:25 Total Bilirubin 0.8 (0.2-1.0) mg/dl AST 43 H (13-39) U/L ALT 32 (7-52) U/L Alkaline Phosphatase 102 (34-104) U/L Albumin 4.1 (3.4-5.0) gm/dl I have independently reviewed and interpreted patient's admitting labs including CBC, CMP, PTT, PT/INR, mag and troponin, BNP Diagnostic Findings Chest X-Ray 07/10/25 14:58 XR chest 1V portable CLINICAL HISTORY: Chest pain, nonspecific COMPARISON STUDY: 06/27/2025 FINDINGS: There is stable prominent cardiomegaly with mild pulmonary vascular congestion. No consolidation or pleural effusion seen. No pneumothorax. IMPRESSION: Stable exam. ACT 112: Negative or not required by law. Electronically signed by: Hernan Diaz M.D. 07/10/2025 3:50 PM ECG Additional Comments: I have independently reviewed and interpreted patient's admitting EKG which revealed: A fib with RVR at rate of 146 bpm Code Status & VTE Plan Code Status Full Code Supervising Physician Co-Signing Physician Notes Attending addendum The patient was seen and examined in emergency room in presence of the son She was sent in from supervisor soakers office with A-fib RVR She has been in the hospital recently with atrial fibrillation and status post cardioversion She has been complaining of palpitation and shortness of breath with minimal exertion and she denies any chest pain associated with it She complains of dizziness with ambulation but denies to have any increasing leg swelling In the ER she remains stable on lying down and the rate is controlled with Cardizem drip On examination Lying in bed very anxious without any significant symptoms Remains hemodynamically stable with tachycardia around 110 and blood pressure 145/92 Chestclear to auscultate with minimally decreased lung sound HeartS1-S2, irregular with tachycardia Abdomenbenign Extremitiesmild lymphedema and trace edema bilaterally CNSalert, awake and oriented x 3. No focal sensory or motor deficit appreciated Her admission labs and EKG and imaging studies reviewed A-fib with RVR with significant history of cardiomyopathy Outpatient cardiology evaluation today advised to have sotalol load which will be done tomorrow morning She has been already started Cardizem drip and will continue for tonight and the heart rate is controlled with Will continue all of her other medications Cardiology consultation in the morning Her other significant medical conditions remained stable and will continue other medications as she has been taking Agree with assessment and plan as outlined above by PAIGE Smiley and take the full responsibility of care in the hospital Dr Cecilia Talley
[2025-07-10] MEDS ORDERED: ALUMINUM/MAGNESIUM SUSP 30 ML UDC PO PRN (20:31)
[2025-07-10] MEDS ORDERED: ACETAMINOPHEN 325 MG TAB PO PRN (20:31)
[2025-07-10] MEDS ORDERED: POLYETHYLENE (MIRALAX) 17 GM PACK PO PRN (20:31)
[2025-07-10] MEDS ORDERED: ONDANSETRON INJ 2 MG/ML 2 ML VIAL IV PRN (20:31)
[2025-07-10] MEDS: METOPROLOL TARTRATE 25 MG TAB PO SCH (22:04)
[2025-07-10] MEDS: APIXABAN 5 MG TABLET PO SCH (22:04)
[2025-07-11 07:28] LABS: Hematocrit (blood only) 41.9 % (37.0-47.0); Hemoglobin 13.8 g/dl (12.0-16.0); Mean Corpuscular Hemoglobin 29.9 pg (25.0-34.0); Mean Corpuscular Volume 90.7 fL (80.0-100.0); Platelet Count 207 K/uL (130-400); RDW Standard Deviation 47.0 fL (36.4-46.3); Red Blood Count 4.62 M/uL (4.20-5.40); White Blood Count 5.98 K/ul (4.8-10.8)
[2025-07-11 07:45] LABS: Anion Gap 9.0 (3-11); Blood Urea Nitrogen 18.0 mg/dl (6-23); Calcium 9.4 mg/dl (8.6-10.3); Carbon Dioxide 25.0 mmol/L (21-32); Chloride 106.0 mmol/L (98-107); Creatinine Clr Calc Pharmacy 99.4 ml/min; Glucose 101.0 mg/dl (70-99(Fasting)); Magnesium 2.1 mg/dl (1.7-2.4); Potassium 3.6 mmol/L (3.5-5.1); Sodium 140.0 mmol/L (136-145)
[2025-07-11] MEDS: METOPROLOL SUCC 25MG EXT REL TAB PO SCH (08:06)
[2025-07-11] MEDS: POTASSIUM CHLORIDE 10 MEQ TABCR PO SCH (08:06)
[2025-07-11] MEDS: CHOLECALCIFEROL 25 MCG (1000 UNITS) TAB PO SCH (08:06)
[2025-07-11] MEDS: FUROSEMIDE 40 MG TAB PO SCH (08:06)
--- NOTE | 2025-07-11 09:45 | Cardiology Consultation ---
Date of Consultation July 11, 2025 Assessment & Plan (1) Atrial fibrillation with rapid ventricular response: (2) Dilated cardiomyopathy: (3) Heart failure with reduced ejection fraction: (4) Hypertension: Plan Atrial fibrillation/ Aflutter with RVR - appears to be flipping back and forth between the two on telemetry - Patient has had multiple procedures and has tried different medications all with intolerance or inefficiency. - Metoprolol succinate 12.5mg twice daily increased to 25 mg twice daily. - Eliquis twice daily. [id number] score: 4. - Currently on Cardizem drip. Given this is short-term, this may continue - We will plan for an AV shiloh ablation and device implantation on . Hold Eliquis starting tomorrow AM. Dilated cardiomyopathy HFrEF - It is assumed that her reduced LV function is related to her atrial fibrillation with high rates. -LVEF 30% via CRYSTAL( 12/2024) - TTE ordered - She has not been able to tolerate GO in the past due to throat swelling which is why an ARB or Entresto have not been started on her yet. Plan to move forward with one of these and SGLT2 after AV shiloh ablation is complete. History of Present Illness Reason for Consultation: Atrial fibrillation Requesting Physician: Fer Attending Physician: Lian Humphries MD History of Present Illness Ramona is a 69-year-old woman with a past medical history of longstanding A-fib on Eliquis, dilated cardiomyopathy, HLD, and WILL. She was admitted yesterday shortly after being seen in our office for a follow up after her most recent ablation. For 6 days prior to this admission, she had felt short of breath and could tell she had an elevated heart rate and felt palpitations in her chest. She was found to be in atrial fibrillation again. Upon leaving her appointment, she states that her WALLACE was so severe that she could only ambulate 20 feet before she needed a wheelchair to proceed to the ER. EKG completed in the ER revealed A-fib with RVR at 146 with no signs of overt ischemia. She did have a CRYSTAL completed on 01/11/2025: Severe global hypokinesis of LV with an EF of 25 to 30%. Left atrium severely dilated. Right atrium is mildly dilated. No significant valvular disease. Ramona tells me she can feel that she is in A-fib at time of assessment today. Per review of telemetry, she appears to be flipping [id number] from atrial fibrillation to a flutter with heart rates ranging from the 90s to low 100s. She denies any chest pain at rest or with exertion. She denies any shortness of breath at rest. She does endorse SOB with exertion and does have trouble ambulating to the bathroom because of this. She denies any overt dizziness. Her atrial fibrillation has been quite troublesome. She has underwent pulmonary vein isolation twice and has undergone multiple cardioversions for symptomatic atrial fibrillation. Last cardioversion was recent on 06/28/2025 which was found to be successful. Unfortunately, the patient has since gone back into atrial fibrillation. She has tried multiple medications in the past to better manage her A-fib. - She had been placed on sotalol back in 2011 which resulted in worsening palpations and a near syncopal event. She does not have interest in trying this medication again. - She has not been able to tolerate amiodarone due to her hair falling out ( TSH was apparently normal) and nausea. - We did discuss Tikosyn. The patient is quite reluctant to this give she has had side effects from the other medications that she has tried. She states she is tired of trying new medications for atrial fibrillation. We discussed AV shiloh ablation which would result in device implantation. The patient agrees with this plan. It was explained to her that this would not necessarily, "cure," her atrial fibrillation, but instead make life with A-fib much more manageable with little medication management. In some cases, patient may benefit from a defibrillator as well which would be appropriate in Ramona's case. Patient is unsure if she would want a defibrillator or not at this time. She is okay with proceeding with the AV shiloh ablation and pacemaker. This is tentatively planned for Allergies Allergy/AdvReac Type Severity Reaction Status Date / Time amiodarone Allergy Severe Abdominal Unverified 07/10/25 16:45 Pain lisinopril Allergy Severe Throat Verified 07/10/25 16:37 tightness Iodinated Contrast Media Allergy Intermediate Rash Verified 07/10/25 16:37 citalopram Allergy Mild Rash Verified 07/10/25 16:37 Beta-Blockers AdvReac Intermediate Increase Verified 07/10/25 16:37 (Beta-Adrenergic Bloc of symptoms/conditions digoxin AdvReac Unknown "Did not Verified 07/10/25 16:37 work" Home Medications Medication Instructions Recorded Confirmed Type apixaban 5 mg tablet (Eliquis) 5 mg PO BID #60 tabs 01/12/25 07/10/25 Rx furosemide 40 mg tablet 40 mg PO DAILY 06/27/25 07/10/25 History metoprolol tartrate 25 mg tablet 12.5 mg PO BID 06/27/25 07/10/25 History cholecalciferol (vitamin D3) 25 25 mcg PO DAILY 07/10/25 07/10/25 History mcg (1,000 unit) tablet (Vitamin D3) multivitamin 1 tab PO DAILY 07/10/25 07/10/25 History potassium chloride 10 mEq 10 meq PO DAILY 07/10/25 07/10/25 History tablet,extended release zinc 50 mg tablet 50 mg PO DAILY 07/10/25 07/10/25 History Patient History Medical History Septic arthritis of knee, bilateral Respiratory failure (12/11/14) Hypoxia Atrial fibrillation with rapid ventricular response Chronic mastoiditis Osteoarthritis Depressive disorder Atrial fibrillation with rapid ventricular response (11/23/14) Hypertension (11/23/14) History of hyperlipidemia Sleep apnea Atrial fibrillation Left knee DJD HFrEF (heart failure with reduced ejection fraction) Diarrhea Fibromyalgia Sinus congestion NYHA class 3 heart failure with reduced ejection fraction Cardiac left ventricular ejection fraction 10-20 percent NSVT (nonsustained ventricular tachycardia) Elevated brain natriuretic peptide (BNP) level Abdominal pain Acute dyspnea Non compliance w medication regimen Shortness of breath Diarrhea Obesity Encounter for pre-operative examination History of COVID-19 Dx 09/2021, symptoms resolved except residual taste/smell impairment Osteoarthritis Cancer Lymphoma (2016) s/p treatment in [place], PCP monitors Atrial [place] [facility] [place] Surgical History History of partial thyroidectomy History of mastoidectomy History of tympanoplasty History of tympanostomy tube placement Status post tonsillectomy and adenoidectomy History of nasal septoplasty Status post total right knee replacement History of tonsillectomy and adenoidectomy History of ear surgery LEFT X 2-RIGHT X 1-MASTOIDECTOMY/TYMPANOPLASTY History of sinus surgery History of section History of thyroidectomy History of esophagogastroduodenoscopy (EGD) History of colon resection 2016 FOR BLEEDING TUMOR History of colonoscopy History of cardioversion ~2015 Family History Other Hypertension Social History Smoking Status: Never smoker Second Hand Exposure: No; Do You Dip or Chew Tobacco: No; Hx Alcohol Use: No Hx Substance Use: No Preferred Language: Dutch Communication Ability: Effective Geospatial Technologist Required: No Beliefs That Will Affect Care: None marital status: Single Current Living Situation: Alone Current Living Situation Comment: lives in double house with son current occupational status: disabled Feels Safe at Home: Yes Safety Concerns: Feels Safe At This Time Assistive Devices: CPAP Review of Systems Review of Systems: per HPI Physical Exam Physical Exam: Physical Exam: AOx3. Mood affect appear normal. All questions appropriately. HEENT: Sclerae are anicteric. Pupils are equal and reactive to light and accommodation. Extraocular movements were intact. Neuro: Cranial nerves intact Lungs: Lungs are clear to auscultation bilaterally. There are no rales wheezes or rhonchi. Normal respiratory effort without use of accessory muscles. Cardiac: Irregularly irregular. there are no murmurs on examination. The PMI was not markedly displaced on palpation. Extremities: Patient has bilateral radial pulses that are equal in intensity. There is no evidence cyanosis or clubbing. There was no evidence of significant peripheral edema bilaterally. Skin: There are no rashes noted on examination today. Results & Data Vital Signs (Past 12 Hours) Vital Signs Temp Pulse Pulse Resp BP Pulse Ox O2 Del Method 07/11/25 08:00 117 H 07/11/25 06:56 36.4 C L 93 H 20 145/94 H 90 Room Air 07/11/25 02:31 36.6 C 100 H 18 126/81 93 CPAP 07/10/25 21:44 36.6 C 116 H 18 143/86 H 94 Room Air 07/10/25 21:40 Room Air PG Care Time/CCT Total # of Minutes Spent Total Time Spent with Patient: Total time spent is greater than 50% in coordination of care (as documented) at patient's floor/unit and/or counseling patient: Coding Level of Care Code 21117 INT INP/OBS CARE 3/75MIN Diagnoses Atrial fibrillation with rapid ventricular response I48.91 Dilated cardiomyopathy I42.0 Heart failure with reduced ejection fraction I50.20 Primary hypertension I10 Hypertension type: primary hypertension Time Spent (min) 55 (4) Hypertension Hypertension type: primary hypertension Qualified Code(s): I10 - Essential (primary) hypertension
[2025-07-11] MEDS ORDERED: METOPROLOL TARTRATE 25 MG TAB PO SCH (14:30)
--- NOTE | 2025-07-11 16:38 | Hospitalist Progress Note ---
Date of Service July 11, 2025 Assessment & Plan (1) Atrial fibrillation with rapid ventricular response: (2) Chronic heart failure with reduced ejection fraction and diastolic dysfunction: (3) WILL on CPAP: Plan Ms. Rivas is a 69 year old female with PMH significant for thyroid nodules, gout, chronic sinusitis, WILL on CPAP, chronic allergic rhinitis, paroxysmal A fib s/p ablation x2 (2023) and DCCV (Sep 2024), dilated cardiomyopathy, chronic HF with reduced EF and diastolic dysfunction, hypertension, pulmonary hypertension, morbid obesity, LAYLA, history of diffuse large B-cell lymphoma who presented to the ED on 07/10/2025 with A fib RVR. Recent admission on 06/27/2025 with cardioversion. Patient reports she was in NSR for one week after cardioversion and then back in A fib per her home monitor. Reviewed Dr. John's note from today and he does not recommend immediate cardioversion as he thinks it would result in early return to A fib. He recommends loading dose of antiarrhythmic medication such as sotalol or dofetilide with cardioversion afterwards. Also discussed biventricular ICD and AV node ablation as ultimate option. Patient planned for possible pacer with AV ablation, however, reluctant given possibilty for "mini maze" procedure may offer her a chance at no medications. Cardiology following. #A fib with RVR History of A fib with RVR s/p two ablations (2014, 2023) and recent cardiover poncho in December 2024 and again on 06/28/[address] John outpatient today as detailed above; has upcoming appt with A fib specialist in [place] via telehealth on to discuss possible"mini maze"procedure Metoprolol tartrate transitioned to succinate -Patient not transitioned previously per patient request to not have medication adjustments Continued on diltazem at this time Eliquis held for tomorrow 07/12 am Discussion for possible pacer with AV node ablation, however, patient reluctant at this time #Chronic HFrEF Echo in December 2024 revealed LVEF 25-30%, severe global kinesis of LV, left atrium severely dilated, mild AR and mild aortic root dilatation Takes lasix daily and nightly as needed depending on weight Appears euvolemic Monitor I&Os Daily weights Continue daily lasix with potassium supplementation #WILL Continue home CPAP DVT Prophylaxis: on Eliquis Code Status: FULL CODE - As per discussion at bedside with the patient. PCP: Bel Felix ([facility]) I spent a total of 58 minutes coordinating, documenting and providing care for this patient excluding time spent in the performance of separately billed services or time spent by another provider/QHP. 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" Patient feels frustrated and reluctant for any new antiarrhythmics--reports that she has a meeting on for a procedure the "mini maze" in which it has "excellent reviews online" Expressed understanding of her frustration for new medications and noted that it will be relayed to cardiology for further discussion as a plan would need to be in place for patient to be stable to even make appointment for such a procedure denies chest pain or sob at time of exam Physical Exam Constitutional: WD/WN, vitals as above Respiratory: normal respiratory effort, lungs clear to auscultation Cardiovascular: irregularly irregular Gastrointestinal (Abdomen): normal bowel sounds, soft, nontender, no hepatosplenomegaly Results & Data Results & Data Vital Signs (Past 12 Hours) Vital Signs Temp Pulse Pulse Resp BP Pulse Ox O2 Del Method 07/11/25 15:12 36.9 C 109 H 18 151/85 H 90 Room Air 07/11/25 14:38 111 H 07/11/25 10:55 36.6 C 105 H 18 137/99 91 Room Air 07/11/25 08:00 117 H 07/11/25 06:56 36.4 C L 93 H 20 145/94 H 90 Room Air Laboratory Results Short CBC 07/11/25 Range/Units 06:39 WBC 5.98 (4.8-10.8) K/ul Hgb 13.8 (12.0-16.0) g/dl Hct 41.9 (37.0-47.0) % Plt Count 207 (130-400) K/uL BMP 07/11/25 06:39 Sodium 140 Potassium 3.6 Chloride 106 Carbon Dioxide 25 BUN 18 Creatinine 0.69 Glucose 101 H Calcium 9.4 Medications Administered Home Medications Medication Instructions Recorded Confirmed Last Taken apixaban 5 mg tablet (Eliquis) 5 mg PO BID #60 tabs 01/12/25 07/10/25 07/10/25 08:00 furosemide 40 mg tablet 40 mg PO DAILY 06/27/25 07/10/25 07/10/25 08:00 metoprolol tartrate 25 mg tablet 12.5 mg PO BID 06/27/25 07/10/25 07/10/25 08:00 cholecalciferol (vitamin D3) 25 25 mcg PO DAILY 07/10/25 07/10/25 07/10/25 08:00 mcg (1,000 unit) tablet (Vitamin D3) multivitamin 1 tab PO DAILY 07/10/25 07/10/25 07/10/25 08:00 potassium chloride 10 mEq 10 meq PO DAILY 07/10/25 07/10/25 07/10/25 08:00 tablet,extended release zinc 50 mg tablet 50 mg PO DAILY 07/10/25 07/10/25 07/10/25 08:00 Active Medications Generic Name Dose Route Start Last Admin Trade Name Teodoroq PRN Reason Stop Dose Admin Apixaban 5 mg 07/10/25 21:00 07/11/25 08:06 Apixaban 5 Mg Tablet PO 08/09/25 20:59 5 mg BID FERNANDA Administration Furosemide 40 mg 07/11/25 09:00 07/11/25 08:06 Furosemide 40 Mg Tab PO 08/10/25 08:59 40 mg DAILY FERNANDA Administration Diltiazem HCl 125 mg/ Dextrose 125 mls @ 10 mls/hr 07/10/25 15:45 07/11/25 15:15 IV 08/09/25 15:44 10 mg/hr .[id number] FERNANDA 10 mls/hr Administration Protocol 10 MG/HR Potassium Chloride 10 meq 07/11/25 09:00 07/11/25 08:06 Potassium Chloride 10 Meq Tabcr PO 08/10/25 08:59 10 meq DAILY FERNANDA Administration Vitamin D 25 mcg 07/11/25 09:00 07/11/25 08:06 Cholecalciferol 25 Mcg (1000 Units) Tab PO 08/10/25 08:59 25 mcg DAILY FERNANDA Administration
[2025-07-11] MEDS: POTASSIUM CHLORIDE CRTAB 20 MEQ TABCR PO STA (16:52)
--- NOTE | 2025-07-11 17:38 | XCELERA ---
[id number]
[2025-07-11] MEDS: METOPROLOL SUCC 25MG EXT REL TAB PO STA (20:36)
[2025-07-12 07:38] LABS: Hematocrit (blood only) 41.9 % (37.0-47.0); Hemoglobin 14.3 g/dl (12.0-16.0); Mean Corpuscular Hemoglobin 31.0 pg (25.0-34.0); Mean Corpuscular Volume 90.7 fL (80.0-100.0); Platelet Count 231 K/uL (130-400); RDW Standard Deviation 47.2 fL (36.4-46.3); Red Blood Count 4.62 M/uL (4.20-5.40); White Blood Count 6.41 K/ul (4.8-10.8)
[2025-07-12 07:58] LABS: Anion Gap 8.0 (3-11); Blood Urea Nitrogen 15.0 mg/dl (6-23); Calcium 9.5 mg/dl (8.6-10.3); Carbon Dioxide 28.0 mmol/L (21-32); Chloride 105.0 mmol/L (98-107); Creatinine Clr Calc Pharmacy 89.2 ml/min; Glucose 106.0 mg/dl (70-99(Fasting)); Magnesium 2.1 mg/dl (1.7-2.4); Potassium 3.7 mmol/L (3.5-5.1); Sodium 141.0 mmol/L (136-145)
--- NOTE | 2025-07-12 09:57 | Cardiology Progress Note ---
Date of Service July 12, 2025 Assessment & Plan (1) Atrial fibrillation with rapid ventricular response: (2) Dilated cardiomyopathy: (3) Heart failure with reduced ejection fraction: (4) Hypertension: Plan Atrial fibrillation/ Aflutter with RVR - Noted on monitor with rates from the 90s to low 100s. - Patient has had multiple procedures and has tried different medications all with intolerance or inefficiency. - Metoprolol succinate 12.5mg twice daily increased to 25 mg twice daily yesterday. Patient tolerating. - Eliquis twice daily. [id number] score: 4. - Patient no longer wants the AV shiloh ablation. She has a consult with Donya regarding a, "Mini maze," procedure via telehealth tomorrow/ - She would like to be cardioverted. This will possibly happen today depending on anesthesia. Last meal was at 0730 this AM. - Currently on Cardizem drip. Given this is short-term, this may continue. - She is not interested in amiodarone or sotalol. She will consider Tikosyn which will require a 72-hour hospital stay. Dilated cardiomyopathy HFrEF - It is assumed that her reduced LV function is related to her atrial fibrillation with high rates. -LVEF 30% via CRYSTAL( 12/2024) - Echocardiogram completed yesterday revealed an EF of 20 to 25%. Monitor shows severe mitral regurgitation also noted. Both of these are worse than reflected in her CRYSTAL from December 2024. See above for subjective for more details - She has not been able to tolerate GO in the past due to throat swelling which is why an ARB or Entresto have not been started on her yet. Patient is hesitant to start any new medications at this time, but will continue to educate her the importance of heart failure directed medication. Admission and Anticipated Discharge Date Admission Date: July 10, 2025 Subjective Patient seen and evaluated at bedside, chart reviewed. After conversation with patient this morning, she is no longer interested in the AV node ablation with pacemaker insertion. She rather have her A-fib, "cured," and has a telemed consult with Donya tomorrow for a, "mini maze procedure." She may be referring to a Cesar-Maze procedure. She is interest in being cardioverted today as she remains in afib with rates from 90-low 100s. Of note, there is a heart rate recorded in her chart is 53. This is incorrect. I extensively reviewed her telemetry and there were no episodes of bradycardia over night. She did eat breakfast at 0730 this morning. She has since been made NPO. Depending on anesthesia availability, there is a possibility she may be able to have this cardioversion in house today. Which once we find out for sure if she can have her cardioversion today, I will stop her Cardizem. She did take her Eliquis this morning. TTE was completed yesterday. LV is mildly dilated with concentric hypertrophy. LVEF 20-25%. CRYSTAL in December 2024 EF was 25-30%. Severe global hypokinesis again noted. RV systolic function is moderately reduced. Left atrium is mildly dilated. Moderate to severe mitral regurgitation noted. Consider mild to mod on CRYSTAL. Mild aortic root dilatation. This morning, she continues to complain about being in atrial fibrillation in general which is understandable. Will she does not feel any chest discomfort at rest or with exertion. No shortness of breath at rest. She has not been experiencing as much shortness of breath with exertion though this could be secondary to the fact that she has not been doing much activities since she has been in the hospital. Review of Systems Review of Systems: per HPI Physical Exam Physical Exam: Physical Exam: AOx3. Mood affect appear normal. All questions appropriately. HEENT: Sclerae are anicteric. Pupils are equal and reactive to light and accommodation. Extraocular movements were intact. Neuro: Cranial nerves intact Lungs: Lungs are clear to auscultation bilaterally. There are no rales wheezes or rhonchi. Normal respiratory effort without use of accessory muscles. Cardiac: Irregularly irregular. there are no murmurs on examination. The PMI was not markedly displaced on palpation. Extremities: Patient has bilateral radial pulses that are equal in intensity. There is no evidence cyanosis or clubbing. There was no evidence of significant peripheral edema bilaterally. Skin: There are no rashes noted on examination today. Results & Data Vital Signs (Past 12 Hours) Vital Signs Temp Pulse Resp BP Pulse Ox O2 Del Method 07/12/25 07:58 36.4 C L 53 L 18 135/84 91 Room Air 07/12/25 03:24 36.7 C 105 H 18 106/70 96 Room Air 07/11/25 22:42 36.6 C 110 H 18 115/78 97 CPAP PG Care Time/CCT Total # of Minutes Spent Total Time Spent with Patient: Total time spent is greater than 50% in coordination of care (as documented) at patient's floor/unit and/or counseling patient: Coding Level of Care Code 87839 SUB INP/OBS CARE 3/50MIN Diagnoses Atrial fibrillation with rapid ventricular response I48.91 Dilated cardiomyopathy I42.0 Heart failure with reduced ejection fraction I50.20 Primary hypertension I10 Hypertension type: primary hypertension Time Spent (min) 40 (4) Hypertension Hypertension type: primary hypertension Qualified Code(s): I10 - Essential (primary) hypertension
--- NOTE | 2025-07-12 14:30 | History & Physical Bridge Note ---
Date of Service July 12, 2025 History & Physical Bridge Note I have examined the patient, reviewed the History & Physical and in the interval since the performance of the History & Physical I have noted the following changes of clinical significance: no changes noted. I reviewed the indications, procedure, risks and alternatives with the patient, and answered all questions. Patient understands and agrees to the procedure. Consent obtained.
--- NOTE | 2025-07-12 14:45 | Cardioversion ---
Date of Service July 12, 2025 PG Electrical Cardioversion Rp Electrical Cardioversion Report The patient was brought to the laboratory being NPO after midnight and was identified in the laboratory, connected to the recording apparatus including electrocardiographic monitoring, noninvasive blood pressure monitoring and pulse oximetry. Anteroposterior patch electrodes were placed. The patient was anesthetized by the anesthesia department. Once adequate anesthesia was obtained a synchronized biphasic shock was delivered using 200 J with conversion to a sinus rhythm. This only lasted a short time, less than 1 minute, before reverting to atrial fibrillation. A second synchronized biphasic shock was delivered at 200 J with conversion to sinus rhythm, this lasted a little bit longer but still within less than a minute the rhythm converted back to atrial fibrillation. No further attempts were made. The patient awoke from the anesthetic without sequela, will be observed briefly and then discharged. Coding Level of Care Code 05240 CARDIOVERSION, ELECTIVE Additional Codes Electrical Cardioversion Report ([id number])
--- NOTE | 2025-07-12 15:03 | Anesthesiology Progress Note ---
Date of Service July 12, 2025 Anesthesia Post Procedure Vital Signs Vital Signs: Temp Pulse Pulse Resp BP Pulse Ox O2 Del Method 07/12/25 14:48 101 H 16 119/88 93 Room Air 07/12/25 11:34 36.9 C 82 18 118/80 96 Room Air 07/12/25 08:00 91 H 07/12/25 07:58 36.4 C L 53 L 18 135/84 91 Room Air 07/12/25 03:24 36.7 C 105 H 18 106/70 96 Room Air 07/11/25 22:42 36.6 C 110 H 18 115/78 97 CPAP 07/11/25 19:20 36.5 C 110 H 18 134/92 92 Room Air 07/11/25 15:12 36.9 C 109 H 18 151/85 H 90 Room Air Transfer of Care Handoff Completed per policy Notes Mental Status: alert / awake / arousable Patient Amnestic to Procedure: Yes Nausea / Vomiting: adequately controlled Pain: adequately controlled Airway Patency, RR, SpO2: stable & adequate BP & HR: stable & adequate Hydration State: stable & adequate Anesthetic Complications: no major complications apparent
--- NOTE | 2025-07-12 15:03 | Anesthesiology Consultation ---
Date of Service July 12, 2025 Assessment & Plan Chart Review Chart Review: Acceptable Risk for Surgery and Patient NOT seen in Pre Admission Testing Consults Requested none ASA ASA3 Proposed Anesthesia Anesthesia Type: MAC Risk / Benefits Reviewed With: PT / POA / Parent / Guardian, Accepts Plan and Informed Consent Obtained History Surgery Operation Date: 07/12/25 14:30 Proposed Procedures p Cardioversion Instrument Maker w/Anesthesia - Cj Daigle MD Operation Date: 07/13/25 11:00 Proposed Procedures p AV Node Ablation - Jony John MD Height/Weight Height: 5 ft 6 in Weight: 118.8 kg Allergies Allergy/AdvReac Type Severity Reaction Status Date / Time amiodarone Allergy Severe Abdominal Unverified 07/10/25 16:45 Pain lisinopril Allergy Severe Throat Verified 07/10/25 16:37 tightness Iodinated Contrast Media Allergy Intermediate Rash Verified 07/10/25 16:37 citalopram Allergy Mild Rash Verified 07/10/25 16:37 Beta-Blockers AdvReac Intermediate Increase Verified 07/10/25 16:37 (Beta-Adrenergic Bloc of symptoms/conditions digoxin AdvReac Unknown "Did not Verified 07/10/25 16:37 work" Medications Home Medications Medication Instructions Recorded Confirmed Last Taken apixaban 5 mg tablet (Eliquis) 5 mg PO BID #60 tabs 01/12/25 07/10/25 07/10/25 08:00 furosemide 40 mg tablet 40 mg PO DAILY 06/27/25 07/10/25 07/10/25 08:00 metoprolol tartrate 25 mg tablet 12.5 mg PO BID 06/27/25 07/10/25 07/10/25 08:00 cholecalciferol (vitamin D3) 25 25 mcg PO DAILY 07/10/25 07/10/25 07/10/25 08:00 mcg (1,000 unit) tablet (Vitamin D3) multivitamin 1 tab PO DAILY 07/10/25 07/10/25 07/10/25 08:00 potassium chloride 10 mEq 10 meq PO DAILY 07/10/25 07/10/25 07/10/25 08:00 tablet,extended release zinc 50 mg tablet 50 mg PO DAILY 07/10/25 07/10/25 07/10/25 08:00 Active Medications Generic Name Dose Route Start Last Admin Trade Name Freq PRN Reason Stop Dose Admin Apixaban 5 mg 07/10/25 21:00 07/11/25 20:34 Apixaban 5 Mg Tablet PO 08/09/25 20:59 5 mg BID FERNANDA Administration Furosemide 40 mg 07/11/25 09:00 07/12/25 09:23 Furosemide 40 Mg Tab PO 08/10/25 08:59 40 mg DAILY FERNANDA Administration Diltiazem HCl 125 mg/ Dextrose 125 mls @ 15 mls/hr 07/10/25 15:45 07/12/25 13:30 IV 08/09/25 15:44 0 mg/hr .[id number] FERNANDA 0 mls/hr Titration Protocol 15 MG/HR Potassium Chloride 10 meq 07/11/25 09:00 07/12/25 09:22 Potassium Chloride 10 Meq Tabcr PO 08/10/25 08:59 10 meq DAILY FERNANDA Administration Vitamin D 25 mcg 07/11/25 09:00 07/12/25 09:22 Cholecalciferol 25 Mcg (1000 Units) Tab PO 08/10/25 08:59 25 mcg DAILY FERNANDA Administration Past Medical History Medical History Septic arthritis of knee, bilateral Respiratory failure (12/11/14) Hypoxia Atrial fibrillation with rapid ventricular response Chronic mastoiditis Osteoarthritis Depressive disorder Atrial fibrillation with rapid ventricular response (11/23/14) Hypertension (11/23/14) History of hyperlipidemia Sleep apnea Atrial fibrillation Left knee DJD HFrEF (heart failure with reduced ejection fraction) Diarrhea Fibromyalgia Sinus congestion NYHA class 3 heart failure with reduced ejection fraction Cardiac left ventricular ejection fraction 10-20 percent NSVT (nonsustained ventricular tachycardia) Elevated brain natriuretic peptide (BNP) level Abdominal pain Acute dyspnea Non compliance w medication regimen Shortness of breath Diarrhea Obesity Encounter for pre-operative examination History of COVID-19 Dx 09/2021, symptoms resolved except residual taste/smell impairment Osteoarthritis Cancer Lymphoma (2016) s/p treatment in [place], PCP monitors Atrial fibrillation Follows with [facility]/Dr. Medina Exercise / Class Metabolic Activity II 4-5 Yardwork/Stairs/Walk up hill Past Family History Family History Other Hypertension Past Surgical History Surgical History History of partial thyroidectomy History of mastoidectomy History of tympanoplasty History of tympanostomy tube placement Status post tonsillectomy and adenoidectomy History of nasal septoplasty Status post total right knee replacement History of tonsillectomy and adenoidectomy History of ear surgery LEFT X 2-RIGHT X 1-MASTOIDECTOMY/TYMPANOPLASTY History of sinus surgery History of section History of thyroidectomy History of esophagogastroduodenoscopy (EGD) History of colon resection 2016 FOR BLEEDING TUMOR History of colonoscopy History of cardioversion ~2014 Past Anesthesia History No Hx of Anesthesia Complications and No Family Hx of Anesthesia Complications History of PONV No Hx of PONV and No Hx of Motion Sickness Social History Smoking Status: Never smoker Do You Dip or Chew Tobacco: No Hx Alcohol Use: No alcohol intake frequency: holidays/special occasions only Hx Substance Use: No substance use type: does not use Physical Exam Vital Signs Last Vital Signs Temp 36.9 C 07/12/25 11:34 Pulse 101 H 07/12/25 14:48 Resp 16 07/12/25 14:48 BP 119/88 07/12/25 14:48 Pulse Ox 93 07/12/25 14:48 O2 Del Method Room Air 07/12/25 14:48 ENMT Mouth: no dentition abnormality Thyromental Distance: > or= 3.5 Finger Breadths Mallampati Class: II Neck normal visual inspection Respiratory normal respiratory effort Auscultation: lungs clear to auscultation bilaterally Cardiovascular Rate/Rhythm: + tachycardic; + abnormal rate and + abnormal rhythm (afib) Psychiatric Orientation: alert Testing Laboratory Results 07/12/25 06:52 07/12/25 06:52 PT 11.6 Seconds (9.0-12.0) 07/10/25 16:16 INR 1.1 (0.9-1.1) 07/10/25 16:16 APTT 27 Seconds (21-31) 07/10/25 16:16
--- NOTE | 2025-07-12 16:31 | Hospitalist Progress Note ---
Date of Service July 12, 2025 Assessment & Plan (1) Atrial fibrillation with rapid ventricular response: (2) Chronic heart failure with reduced ejection fraction and diastolic dysfunction: (3) WILL on CPAP: Plan Ms. Rivas is a 69 year old female with PMH significant for thyroid nodules, gout, chronic sinusitis, WILL on CPAP, chronic allergic rhinitis, paroxysmal A fib s/p ablation x2 (2023) and DCCV (Sep 2024), dilated cardiomyopathy, chronic HF with reduced EF and diastolic dysfunction, hypertension, pulmonary hypertension, morbid obesity, LAYLA, history of diffuse large B-cell lymphoma who presented to the ED on 07/10/2025 with A fib RVR. Recent admission on 06/27/2025 with cardioversion. Patient reports she was in NSR for one week after cardioversion and then back in A fib per her home monitor. Reviewed Dr. John's note from today and he does not recommend immediate cardioversion as he thinks it would result in early return to A fib. He recommends loading dose of antiarrhythmic medication such as sotalol or dofetilide with cardioversion afterwards. Also discussed biventricular ICD and AV node ablation as ultimate option. #A fib with RVR -History of A fib with RVR s/p two ablations (2014, 2023) and recent cardioversion in December 2024 and again on 06/28/2025 -Declined ablation, PPM placement -S/p unsuccessful DCCV 07/12 Plan -Cardio planning on starting tikosyn -Daily EKGs to monitor QTc -Cardiac monitoring -Continue metoprolol -Continue eliquis #Chronic HFrEF Echo in December 2024 revealed LVEF 25-30%, severe global kinesis of LV, left atrium severely dilated, mild AR and mild aortic root dilatation Takes lasix daily and nightly as needed depending on weight ? Tachycardia induced CM -Euvolemic -Continue PO lasix -GDMT as tolerated #WILL Continue home CPAP DVT Prophylaxis: on Eliquis Code Status: FULL CODE - As per discussion at bedside with the patient. PCP: Bel Felix ([facility]) I spent a total of 39 minutes coordinating, documenting and providing care for this patient excluding time spent in the performance of separately billed services or time spent by another provider/QHP. Admission and Anticipated Discharge Date Admission Date: July 10, 2025 Subjective feeling well this am. refused ablation, PPM. for DCCV today. d/w cardio ROBERT Physical Exam Physical Exam: Vitals and labs reviewed General: Well appearing, NAD HEENT: EOMI, PERRLA Neck: Supple Cardiac: regular rate. irregular rhythm Lungs: CTA no rhonchi wheezing or rales Abd: S NT ND BS positive MSK: Full ROM. No obvious deformities Ext: No Edema cyanosis Skin: Warm, Dry Neuro: AOx3 No focal deficits. Psych: Normal Mood Results & Data Results & Data Vital Signs (Past 12 Hours) Vital Signs Temp Pulse Pulse Resp BP Pulse Ox O2 Del Method 07/12/25 15:06 36.5 C 98 H 18 129/85 92 Room Air 07/12/25 14:48 101 H 16 119/88 93 Room Air 07/12/25 11:34 36.9 C 82 18 118/80 96 Room Air 07/12/25 08:00 91 H 07/12/25 07:58 36.4 C L 53 L 18 135/84 91 Room Air Laboratory Results Abnormal lab results 07/12/25 Range/Units 06:52 RDW Std Deviation 47.2 H (36.4-46.3) fL Glucose 106 H (70-99(Fasting)) mg/dl
[2025-07-12] MEDS: METOPROLOL SUCC 25MG EXT REL TAB PO SCH (20:11)
--- NOTE | 2025-07-13 10:00 | Cardiology Progress Note ---
Date of Service July 13, 2025 Assessment & Plan (1) Atrial fibrillation with rapid ventricular response: (2) Dilated cardiomyopathy: (3) Heart failure with reduced ejection fraction: (4) Valvular heart disease: (5) Hypertension: Plan Atrial fibrillation/ Aflutter with RVR - Patient has had multiple procedures and has tried different medications all with intolerance or inefficiency. - Metoprolol succinate now back to 12.5mg as the patient cannot tolerate 25mg 2/2 hypotension. - Eliquis twice daily. [id number] score: 4. - She has a consult with Donya regarding a, "Mini maze," procedure via telehealth today at 1330 on her own doing. - Currently on Cardizem drip. Given this is short-term, this may continue. - Plan would be to start Tikosyn which requires a 72hr hospital stay. However, she had just stopped her amiodarone a month ago. Amiodarone level ordered, this will take a few days to result. Dilated cardiomyopathy HFrEF Valvular heart disease - It is assumed that her reduced LV function is related to her atrial fibrillation with high rates. Her mitral valve insufficiency could also be playing a role. -LVEF 30% via [facility]( 12/2024) - Echocardiogram completed duirng this hospitalization revealed an EF of 20 to 25%. Echo shows severe mitral regurgitation also noted. Both of these have worsened from December 2024 per [facility]. - She has not been able to tolerate GO in the past due to throat swelling which is why an ARB or Entresto have not been started on her yet. Patient is hesitant to start any new medications at this time, but will continue to educate her the importance of heart failure directed medication. Admission and Anticipated Discharge Date Admission Date: July 10, 2025 Supervising Physician Co-Signing Physician Notes Reviewed with Rona Ventura and documentation reviewed. Please note that the cardioversion was successful, she had early recurrence of atrial fibrillation. Subjective Patient seen and evaluated at bedside this morning, chart reviewed. Unfortunately, cardioversion was unsuccessful x 2 yesterday. Plan was to start Tikosyn. However, the patient has only been off her amiodarone for 1 month. Typically, a patient should be off amiodarone for 3 months prior to starting Tikosyn due to the longevity of amiodarone. We did order an amiodarone level for further assessment. This is a send out lab so we likely will not have a result for this until early next week. Per review of telemetry, rates have been from 90-120s. She remains on Cardizem gtt at this time. We have attempted to increase her metoprolol, but she has not been able to tolerate this due to hypotension, but I see no documentation reflecting this. She continues to refuse an AV node ablation, amiodarone, and sotalol. Long-term Cardizem and flecainide are not options for her given her underlying heart failure. The patient voiced frustration regarding her unsuccessful cardioversion. She states she no longer wants to be in the hospital. She did discuss possibly signing out AGAINST MEDICAL ADVICE. I did review the risks to this from a cardiology standpoint. She has not made up her mind in regarding this. She continues to refuse an AV node ablation, amiodarone, and sotalol. Review of Systems Review of Systems: per ROS Physical Exam Physical Exam: Physical Exam: AOx3. Mood affect appear normal. All questions appropriately. HEENT: Sclerae are anicteric. Pupils are equal and reactive to light and accommodation. Extraocular movements were intact. Neuro: Cranial nerves intact Lungs: Lungs are clear to auscultation bilaterally. There are no rales wheezes or rhonchi. Normal respiratory effort without use of accessory muscles. Cardiac: Irregularly irregular. There are no murmurs on examination. The PMI was not markedly displaced on palpation. Extremities: Patient has bilateral radial pulses that are equal in intensity. There is no evidence cyanosis or clubbing. There was no evidence of significant peripheral edema bilaterally. Skin: There are no rashes noted on examination today. Results & Data Vital Signs (Past 12 Hours) Vital Signs Temp Pulse Pulse Resp BP Pulse Ox O2 Del Method 07/13/25 07:14 36.4 C L 98 H 18 122/85 96 Room Air 07/13/25 02:40 36.6 C 116 H 18 137/86 96 CPAP 07/12/25 23:00 CPAP 07/12/25 22:32 36.6 C 121 H 18 120/80 95 CPAP 07/12/25 21:45 128 H PG Care Time/CCT Total # of Minutes Spent Total Time Spent with Patient: Total time spent is greater than 50% in coordination of care (as documented) at patient's floor/unit and/or counseling patient: Coding [place] [address] SUB INP/OBS CARE 2/35MIN Patient Type Established Medical Decision Making Low Complexity Diagnoses Atrial fibrillation with rapid ventricular response I48.91 Dilated cardiomyopathy I42.0 Heart failure with reduced ejection fraction I50.20 Valvular heart disease I38 Primary hypertension I10 Hypertension type: primary hypertension (5) Hypertension Hypertension type: primary hypertension Qualified Code(s): I10 - Essential (primary) hypertension
--- NOTE | 2025-07-13 14:31 | Hospitalist Progress Note ---
Date of Service July 13, 2025 Assessment & Plan (1) Atrial fibrillation with rapid ventricular response: (2) Chronic heart failure with reduced ejection fraction and diastolic dysfunction: (3) WILL on CPAP: Plan Ms. Rivas is a 69 year old female with PMH significant for thyroid nodules, gout, chronic sinusitis, WILL on CPAP, chronic allergic rhinitis, paroxysmal A fib s/p ablation x2 (2023) and DCCV (Sep 2024), dilated cardiomyopathy, chronic HF with reduced EF and diastolic dysfunction, hypertension, pulmonary hypertension, morbid obesity, LAYLA, history of diffuse large B-cell lymphoma who presented to the ED on 07/10/2025 with A fib RVR. Recent admission on 06/27/2025 with cardioversion. Patient reports she was in NSR for one week after cardioversion and then back in A fib per her home monitor. Reviewed Dr. John's note from today and he does not recommend immediate cardioversion as he thinks it would result in early return to A fib. He recommends loading dose of antiarrhythmic medication such as sotalol or dofetilide with cardioversion afterwards. Also discussed biventricular ICD and AV node ablation as ultimate option. #A fib with RVR -History of A fib with RVR s/p two ablations (2014, 2023) and recent cardioversion in December 2024 and again on 06/28/2025 -Declined ablation, PPM placement -S/p unsuccessful DCCV 07/12 Plan -Tentative plan is to start tikosyn pending amio levels which are pending -D/w cardio, increase toprol to 37.5 BID -Continue cardizem drip, wean as tolerated -Cardiac monitoring -Continue eliquis -OP ablation with [facility] EP. #Chronic HFrEF Echo in December 2024 revealed LVEF 25-30%, severe global kinesis of LV, left atrium severely dilated, mild AR and mild aortic root dilatation Takes lasix daily and nightly as needed depending on weight ? Tachycardia induced CM -Euvolemic -Continue PO lasix -GDMT as tolerated -[facility] recommends LHC as OP #WILL Continue home CPAP DVT Prophylaxis: on Eliquis Code Status: FULL CODE - As per discussion at bedside with the patient. PCP: Bel Felix ([facility]) I spent a total of 55 minutes coordinating, documenting and providing care for this patient excluding time spent in the performance of separately billed services or time spent by another provider/QHP. Admission and Anticipated Discharge Date Admission Date: July 10, 2025 Subjective Patient seen adn examined twice today. she was feeling well this AM. she had numerous questions about the plan moving forward. visited again this afternoon during her tele visit with [facility] EP. she feels better after the appt. she is willing to pursue ablation as Op. d/w cardio ROBERT as well Physical Exam Physical Exam: Vitals and labs reviewed General: Well appearing, NAD HEENT: EOMI, PERRLA Neck: Supple Cardiac: regular rate. irregular rhythm Lungs: CTA no rhonchi wheezing or rales Abd: S NT ND BS positive MSK: Full ROM. No obvious deformities Ext: No Edema cyanosis Skin: Warm, Dry Neuro: AOx3 No focal deficits. Psych: Normal Mood Results & Data Results & Data Vital Signs (Past 12 Hours) Vital Signs Temp Pulse Resp BP Pulse Ox O2 Del Method 07/13/25 11:53 36.6 C 97 H 18 133/88 92 Room Air 07/13/25 07:14 36.4 C L 98 H 18 122/85 96 Room Air 07/13/25 02:40 36.6 C 116 H 18 137/86 96 CPAP
[2025-07-13] MEDS: METOPROLOL SUCC 25MG EXT REL TAB PO SCH (20:01)
--- NOTE | 2025-07-14 11:03 | Cardiology Progress Note ---
Date of Service July 14, 2025 Assessment & Plan (1) Atrial fibrillation with rapid ventricular response: (2) Dilated cardiomyopathy: (3) Heart failure with reduced ejection fraction: (4) Valvular heart disease: (5) Hypertension: Plan Atrial fibrillation/ Aflutter with RVR - Patient has had multiple procedures and has tried different medications all with intolerance or inefficiency. - Cardioversion was performed x2 on 07/12/25 with 200J. She had brief conversion to sinus rhythm that lasted approximately 1 minute before reverting back to A- fib. A second synchronized biphasic shock was delivered again with conversion to sinus rhythm. This converted back to atrial fibrillation in less than 1 min. No further attempts were made. - We have been able to increase her metoprolol succinate dosage. She is currently on 37.5 mg twice a day. - Eliquis twice daily. [id number] score: 4 - We will plan to discontinue her Cardizem drip today. - Plan would be to start Tikosyn which requires a 72hr hospital stay. However, she had just stopped her amiodarone a month ago. Amiodarone level was drawn Thursday. This will take several days to result - She did have a planned telehealth consult with [facility] electrophysiology at her own doing yesterday. Per secondhand information, there was conversation regarding a posterior wall ablation. She is supposed to meet with them in person in 1 month. She is having a telehealth appointment with Donya as well Dilated cardiomyopathy HFrEF Valvular heart disease - It is assumed that her reduced LV function is related to her atrial fibrillation with high rates. Her mitral valve insufficiency could also be playing a role. -LVEF 30% via [facility]( 12/2024) - Echocardiogram completed during this hospitalization revealed an EF of 20 to 25%. Echo shows severe mitral regurgitation also noted. Both of these have worsened from December 2024 per [facility]. - She has not been able to tolerate GO in the past due to throat swelling which is why an ARB or Entresto have not been started on her yet. Patient is hesitant to start any new medications at this time, but will continue to educate her the importance of heart failure directed medication. Admission and Anticipated Discharge Date Admission Date: July 10, 2025 Supervising Physician Co-Signing Physician Notes Patient seen and interviewed with Rona Ventura. Patient is adamant that she is not interested in AV shiloh ablation and pacemaker implantation and we cannot start Tikosyn until we get the amiodarone level back which will be next week. Cardioversion was successful but she had early recurrence of atrial fibrillation so that will not be helpful without antiarrhythmic therapy. She has made arrangements with [facility] and wants to discuss options with [facility]. At this point there is little that we can offer, rate control is also problematic with her hypotension. I discussed going home as she is and she is agreeable. It is not ideal but there is nothing else we can do for her here at this time. I would recommend sending her home on the current medications plus low-dose digoxin (0.125 mg d aily). That could be started here with a loading dose of 0.25 mg. Subjective Patient seen and evaluated at bedside this morning, chart reviewed. Overall, the patient has no pertinent complaints this morning. She highlights she is able to walk without becoming short of breath. Telemetry was reviewed, she remains in A-fib with heart rates ranging from 80s to low 100s. Review of Systems Review of Systems: per HPI Physical Exam Physical Exam: Physical Exam: AOx3. Mood affect appear normal. All questions appropriately. HEENT: Sclerae are anicteric. Pupils are equal and reactive to light and accommodation. Extraocular movements were intact. Neuro: Cranial nerves intact Lungs: Lungs are clear to auscultation bilaterally. There are no rales wheezes or rhonchi. Normal respiratory effort without use of accessory muscles. Cardiac: Irregularly irregular. There are no murmurs on examination. The PMI was not markedly displaced on palpation. Extremities: Patient has bilateral radial pulses that are equal in intensity. There is no evidence cyanosis or clubbing. There was no evidence of significant peripheral edema bilaterally. Skin: There are no rashes noted on examination today. Results & Data Vital Signs (Past 12 Hours) Vital Signs Temp Pulse Resp BP Pulse Ox O2 Del Method 07/14/25 07:24 36.5 C 87 18 116/83 93 Room Air 07/14/25 03:02 36.9 C 84 18 113/69 96 Room Air PG Care Time/CCT Total # of Minutes Spent Total Time Spent with Patient: Total time spent is greater than 50% in coordination of care (as documented) at patient's floor/unit and/or counseling patient: C[place] [address] SUB INP/OBS CARE 235MIN Patient Type Established Medical Decision Making Straight Forward Diagnoses Atrial fibrillation with rapid ventricular response I48.91 Dilated cardiomyopathy I42.0 Heart failure with reduced ejection fraction I50.20 Valvular heart disease I38 Primary hypertension I10 Hypertension type: primary hypertension (5) Hypertension Hypertension type: primary hypertension Qualified Code(s): I10 - Essential (primary) hypertension
--- NOTE | 2025-07-14 11:26 | Hospitalist Progress Note ---
Date of Service July 14, 2025 Assessment & Plan (1) Atrial fibrillation with rapid ventricular response: (2) Chronic heart failure with reduced ejection fraction and diastolic dysfunction: (3) WILL on CPAP: Plan Ms. Rivas is a 69 year old female with PMH significant for thyroid nodules, gout, chronic sinusitis, WILL on CPAP, chronic allergic rhinitis, paroxysmal A fib s/p ablation x2 (2023) and DCCV (Sep 2024), dilated cardiomyopathy, chronic HF with reduced EF and diastolic dysfunction, hypertension, pulmonary hypertension, morbid obesity, LAYLA, history of diffuse large B-cell lymphoma who presented to the ED on 07/10/2025 with A fib RVR. Recent admission on 06/27/2025 with cardioversion. Patient reports she was in NSR for one week after cardioversion and then back in A fib per her home monitor. Reviewed Dr. John's note from today and he does not recommend immediate cardioversion as he thinks it would result in early return to A fib. He recommends loading dose of antiarrhythmic medication such as sotalol or dofetilide with cardioversion afterwards. Also discussed biventricular ICD and AV node ablation as ultimate option. #A fib with RVR -History of A fib with RVR s/p two ablations (2014, 2023) and recent cardioversion in December 2024 and again on 06/28/2025 -Declined ablation, PPM placement -Has not tolerated amio in the past -S/p unsuccessful DCCV 07/12 -Rates are better controlled on 37.5 toprol BID. BP stable Plan -Tentative plan is to start tikosyn pending amio levels which are pending -Continue toprol to 37.5 BID -Continue cardizem drip, wean as tolerated -Cardiac monitoring -Continue eliquis -OP ablation with [facility] EP. #Chronic HFrEF Echo in December 2024 revealed LVEF 25-30%, severe global kinesis of LV, left atrium severely dilated, mild AR and mild aortic root dilatation Takes lasix daily and nightly as needed depending on weight ? Tachycardia induced CM -Euvolemic -Continue PO lasix -GDMT as tolerated -[facility] recommends LHC as OP #WILL Continue home CPAP DVT Prophylaxis: on Eliquis Code Status: FULL CODE - As per discussion at bedside with the patient. PCP: Bel Felix ([facility]) I spent a total of 42 minutes coordinating, documenting and providing care for this patient excluding time spent in the performance of separately billed services or time spent by another provider/QHP. Admission and Anticipated Discharge Date Admission Date: July 10, 2025 Subjective Feeling well this AM. Patient denies F/C, CP, palpitations, SOB, dyspnea, abd pain, N/V/D. she is understandably frustrated about her situation and how difficult is has been to control her Afib Physical Exam Physical Exam: Vitals and labs reviewed General: Well appearing, NAD HEENT: EOMI, PERRLA Neck: Supple Cardiac: regular rate. irregular rhythm Lungs: CTA no rhonchi wheezing or rales Abd: S NT ND BS positive MSK: Full ROM. No obvious deformities Ext: No Edema cyanosis Skin: Warm, Dry Neuro: AOx3 No focal deficits. Psych: Normal Mood Results & Data Results & Data Vital Signs (Past 12 Hours) Vital Signs Temp Pulse Pulse Resp BP Pulse Ox O2 Del Method 07/14/25 07:30 93 H 07/14/25 07:24 36.5 C 87 18 116/83 93 Room Air 07/14/25 03:02 36.9 C 84 18 113/69 96 Room Air
--- NOTE | 2025-07-14 16:27 | Electrocardiogram Report ---
Test Reason : Blood Pressure : */* mmHG Vent. Rate : 146 BPM Atrial Rate : * BPM P-R Int : * ms QRS Dur : 94 ms QT Int : 326 ms P-R-T Axes : * 38 114 degrees QTcB Int : 508 ms Atrial fibrillation with rapid ventricular response Nonspecific ST and T wave abnormality Abnormal ECG When compared with ECG of 10-Jul-2025 12:35, (unconfirmed) Nonspecific T wave abnormality, worse in Lateral leads Confirmed by Cj Daigle ([id number]) on 07/14/2025 4:27:08 PM Referred By: Jony John Confirmed By: Cj Daigle
--- NOTE | 2025-07-14 16:28 | Electrocardiogram Report ---
Test Reason : Blood Pressure : */* mmHG Vent. Rate : 119 BPM Atrial Rate : * BPM P-R Int : * ms QRS Dur : 98 ms QT Int : 328 ms P-R-T Axes : * 40 110 degrees QTcB Int : 461 ms Atrial fibrillation with rapid ventricular response Nonspecific ST and T wave abnormality Abnormal ECG When compared with ECG of 10-Jul-2025 15:19, (unconfirmed) No significant change was found Confirmed by Cj Daigle ([id number]) on 07/14/2025 4:27:49 PM Referred By: Jony John Confirmed By: Cj Daigle
[2025-07-14] MEDS: DIGOXIN 0.125 MG TAB PO ONE (17:16)
[2025-07-15] MEDS ORDERED: DIGOXIN 0.125 MG TAB PO SCH (07:45)
[2025-07-15] MEDS: METOPROLOL SUCC 50MG EXT REL TAB PO SCH (08:35)
--- NOTE | 2025-07-15 10:27 | Hospitalist Progress Note ---
Date of Service July 15, 2025 Assessment & Plan (1) Atrial fibrillation with rapid ventricular response: (2) Chronic heart failure with reduced ejection fraction and diastolic dysfunction: (3) WILL on CPAP: Plan Ms. Rivas is a 69 year old female with PMH significant for thyroid nodules, gout, chronic sinusitis, WILL on CPAP, chronic allergic rhinitis, paroxysmal A fib s/p ablation x2 (2023) and DCCV (Sep 2024), dilated cardiomyopathy, chronic HF with reduced EF and diastolic dysfunction, hypertension, pulmonary hypertension, morbid obesity, LAYLA, history of diffuse large B-cell lymphoma who presented to the ED on 07/10/2025 with A fib RVR. Recent admission on 06/27/2025 with cardioversion. Patient reports she was in NSR for one week after cardioversion and then back in A fib per her home monitor. Reviewed Dr. John's note from today and he does not recommend immediate cardioversion as he thinks it would result in early return to A fib. He recommends loading dose of antiarrhythmic medication such as sotalol or dofetilide with cardioversion afterwards. Also discussed biventricular ICD and AV node ablation as ultimate option. #A fib with RVR -History of A fib with RVR s/p two ablations (2014, 2023) and recent cardioversion in December 2024 and again on 06/28/2025 -Declined ablation, PPM placement -TSH normal -Has not tolerated amio in the past -S/p unsuccessful DCCV 07/12 -Rates are better controlled on 37.5 toprol BID. BP stable -Hr 120s this AM at rest -This is a complex issue requiring frequent bedside and telemetry monitoring Plan -Tentative plan is to start tikosyn pending amio levels which are pending -Increase toprol to 50 BID -Continue digoxin -Off cardizem drip -Routine labs ordered for today -Cardiac monitoring -Continue eliquis -OP ablation with [facility] EP. #Chronic HFrEF Echo in December 2024 revealed LVEF 25-30%, severe global kinesis of LV, left atrium severely dilated, mild AR and mild aortic root dilatation Takes lasix daily and nightly as needed depending on weight ? Tachycardia induced CM -Euvolemic -Continue PO lasix -GDMT as tolerated -[facility] recommends LHC as OP #WILL Continue home CPAP DVT Prophylaxis: on Eliquis Code Status: FULL CODE - As per discussion at bedside with the patient. PCP: Bel Felix ([facility]) I spent a total of 58 minutes coordinating, documenting and providing care for this patient excluding time spent in the performance of separately billed services or time spent by another provider/QHP. Admission and Anticipated Discharge Date Admission Date: July 10, 2025 Subjective Patient seen multiple times throughout the day yesterday. seen again this morning uneventful night. feeling better. Patient denies F/C, CP, palpitations, SOB, dyspnea, abd pain, N/V/D Physical Exam Physical Exam: Vitals and labs reviewed General: Well appearing, NAD HEENT: EOMI, PERRLA Neck: Supple Cardiac: tachy irregular rhythm Lungs: CTA no rhonchi wheezing or rales Abd: S NT ND BS positive MSK: Full ROM. No obvious deformities Ext: No Edema cyanosis Skin: Warm, Dry Neuro: AOx3 No focal deficits. Psych: Normal Mood Results & Data Results & Data Vital Signs (Past 12 Hours) Vital Signs Temp Pulse Pulse Resp BP Pulse Ox O2 Del Method 07/15/25 07:58 99 H 07/15/25 07:20 36.6 C 106 H 19 125/87 97 Room Air 07/15/25 04:00 36.3 C L 114 H 12 132/86 96 Room Air 07/14/25 23:17 36.5 C 97 H 19 129/83 96 BiPAP
[2025-07-15 10:58] LABS: Hematocrit (blood only) 40.8 % (37.0-47.0); Hemoglobin 13.4 g/dl (12.0-16.0); Mean Corpuscular Hemoglobin 29.8 pg (25.0-34.0); Mean Corpuscular Volume 90.9 fL (80.0-100.0); Platelet Count 211 K/uL (130-400); RDW Standard Deviation 46.7 fL (36.4-46.3); Red Blood Count 4.49 M/uL (4.20-5.40); White Blood Count 7.11 K/ul (4.8-10.8)
[2025-07-15 11:18] LABS: Anion Gap 5.0 (3-11); Blood Urea Nitrogen 18.0 mg/dl (6-23); Calcium 9.4 mg/dl (8.6-10.3); Carbon Dioxide 28.0 mmol/L (21-32); Chloride 106.0 mmol/L (98-107); Creatinine Clr Calc Pharmacy 88.8 ml/min; Glucose 93.0 mg/dl (70-99(Fasting)); Potassium 3.6 mmol/L (3.5-5.1); Sodium 139.0 mmol/L (136-145)
[2025-07-16] MEDS: METOPROLOL SUCC 25MG EXT REL TAB PO SCH (08:36)
[2025-07-16 10:49] VITALS: BP 122/88; RESP 19; TEMP 97.5; O2SAT 98
[2025-07-16 12:03] VITALS: PULSE 107
--- NOTE | 2025-07-16 12:19 | Discharge Summary ---
Discharge Summary Date of Service July 16, 2025 Principal Dx & Hospital Course #1 = Principal Diagnosis (1) Atrial fibrillation with rapid ventricular response: (2) Chronic heart failure with reduced ejection fraction and diastolic dysfunction: (3) WILL on CPAP: Plan Ms. Rivas is a 69 year old female with PMH significant for thyroid nodules, gout, chronic sinusitis, WILL on CPAP, chronic allergic rhinitis, paroxysmal A f ib s/p ablation x2 (2023) and DCCV (Sep 2024), dilated cardiomyopathy, chronic HF with reduced EF and diastolic dysfunction, hypertension, pulmonary hypertension, morbid obesity, LAYLA, history of diffuse large B-cell lymphoma who presented to the ED on 07/10/2025 with A fib RVR. Recent admission on 06/27/2025 with cardioversion. Patient reports she was in NSR for one week after cardioversion and then back in A fib per her home monitor. Cardiology was consulted. she was started on cardizem drip. She is s/p DCCV which was unsuccessful. Tikosyn was considered however she only just recently st opped taking amio (did not tolerate) and per cardiology, cannot start tikosyn if amio is still in her system. Her beta archie was slowly increased. her BP is normal on 75 BID toprol. she had a televisit with [facility] EP and they recommend OP ablation in the next few weeks. Cardiology recommended starting digoxin and cleared her for discharge. she was kept another 48 hours to better optimize her heart rate. She has longstanding persistent afib and she states her HR is usually between 100-120 at home. Today, she is without complaints and is demanding to be discharged. Overall her heart rate is improved and she is tolerating the adjusted medications. She was advised to check her vitals TID and to not take the toprol if her HR or BP are low. she is scheduling a f/u appt with her PCP and behavioral health technician this week. she will also f/u with [facility] EP this week as well. #A fib with RVR -History of A fib with RVR s/p two ablations (2014, 2023) and recent cardioversion in December 2024 and again on 06/28/2025 -Declined ablation, PPM placement -TSH normal -Has not tolerated amio in the past -S/p unsuccessful DCCV 07/12 -Rates are better controlled on 37.5 toprol BID. BP stable -Hr 120s this AM at rest -This is a complex issue requiring frequent bedside and telemetry monitoring Plan -Tentative plan is to start tikosyn pending amio levels which are pending -Increase toprol to 50 BID -Continue digoxin -Off cardizem drip -Routine labs ordered for today -Cardiac monitoring -Continue eliquis -OP ablation with [facility] EP. #Chronic HFrEF Echo in December 2024 revealed LVEF 25-30%, severe global kinesis of LV, left atrium severely dilated, mild AR and mild aortic root dilatation Takes lasix daily and nightly as needed depending on weight ? Tachycardia induced CM -Euvolemic -Continue PO lasix -GDMT as tolerated -[facility] recommends LHC as OP #WILL Continue home CPAP DVT Prophylaxis: on Eliquis Code Status: FULL CODE - As per discussion at bedside with the patient. PCP: Bel Felix ([facility]) I spent a total of 48 minutes coordinating, documenting and providing care for this patient excluding time spent in the performance of separately billed services or time spent by another provider/QHP. Notes For Next Care Provider Medication Changes From Visit digoxin 125 started Lopressor changed to toprol 75mg BID Admission HPI Per Admitting Provider 69 year old female with PMH significant for thyroid nodules, gout, chronic sinusitis, WILL on CPAP, chronic allergic rhinitis, paroxysmal A fib s/p ablation x2 (2014, 2023) and DCCV (Sep 2024), dilated cardiomyopathy, chronic HF with reduced EF and diastolic dysfunction, hypertension, pulmonary hypertension, morbid obesity, LAYLA, history of diffuse large B-cell lymphoma who presented to the ED on 07/10/2025 with A fib. Recent admission on 06/27/2025 with cardioversion. Patient reports she was in NSR for one week after cardioversion and then back in A fib per her home monitor. Rates ranged from low 100s up to 150s even at rest. Notes her BP has been fluctuating as well. She has associated SOB that is getting increasingly worse. Wanted to hold off until her appointment with Dr. John today who referred her to the ED. Reviewed Dr. John's note and he does not recommend immediate cardioversion as he thinks it would result in early return to A fib. He recommends loading dose of antiarrhythmic medication such as sotalol or dofetilide with cardioversion afterwards. Also discussed biventricular ICD and AV node ablation as ultimate option. Patient reports she has a telehealth appointment with an A fib specialist in [place] on to discuss possible mini maze procedure. Patient denies chest pain, abdominal pain, N/V/D, weakness, recent falls. Discharge Exam Vitals and labs reviewed General: Well appearing, NAD HEENT: EOMI, PERRLA Neck: Supple Cardiac: irregular tachycardic no rubs gallops or murmurs Lungs: CTA no rhonchi wheezing or rales Abd: S NT ND BS positive : Deffered MSK: Full ROM. No obvious deformities Ext: No Edema cyanosis Skin: Warm, Dry Neuro: AOx3 No focal deficits. Psych: Normal Mood Updated Medication List Medication Instructions Recorded Confirmed Type apixaban 5 mg tablet (Eliquis) 5 mg PO BID #60 tabs 01/12/25 07/10/25 Rx furosemide 40 mg tablet 40 mg PO DAILY 06/27/25 07/10/25 History cholecalciferol (vitamin D3) 25 25 mcg PO DAILY 07/10/25 07/10/25 History mcg (1,000 unit) tablet (Vitamin D3) multivitamin 1 tab PO DAILY 07/10/25 07/10/25 History potassium chloride 10 mEq 10 meq PO DAILY 07/10/25 07/10/25 History tablet,extended release zinc 50 mg tablet 50 mg PO DAILY 07/10/25 07/10/25 History digoxin 125 mcg (0.125 mg) tablet 0.125 mg PO DAILY #30 tabs 07/16/25 Rx (Digitek) metoprolol succinate 25 mg 75 mg (3 x 25 mg) PO BID 30 days 07/16/25 Rx tablet,extended release 24 hr #180 tabs Hospital Stay Data Consultations 07/10/25 16:12 ED Decision to Admit Stat 07/10/25 20:31 Consult Cardiology Routine 07/12/25 09:46 Consult Anesthesiology Routine Procedures Performed Operation Date: 07/13/25 11:00 Actual Procedures s Pacer with A/V Leads (Dual) - Jony John MD p AV Node Ablation - Jony John MD Diagnostic Imagining Performed 07/13/25 06:30 EP Lab Images for PACS ONCE Pending Results Patient Have Any Pending Studies at Discharge: Yes Discharge Instructions Given to Patient (Per Discharging Provider) Check your heart rate and blood pressure three times per day. Check before taking the metoprolol. if blood pressure or heart rate are low, hold your metoprolol and contact your behavioral health technician. Follow up with your PCP and ca rdiologist this week. Follow up with your [facility] behavioral health technician for ablation. Total Time Total Time Spent Total Time Spent (In Minutes): 48
== END 2025-07-16 15:03 | disposition home or self-care (01) | DRG 309 ==
LOC: ED 14:53 → SUATTDRO 17:45 → EDINP 17:45 → 2S 20:32